=== PATIENT | male | born 1960 | race Caucasian/White ===

== ENCOUNTER 2016-05-25 09:10 | Day surgery (SDC) | payer OTHER ==
[2016-05-25] MEDS ORDERED: HEPARIN NA (PORCINE) 5,000 UNITS/ML 1ML VIAL ONE (09:49)
[2016-05-25] MEDS ORDERED: PAPAVERINE HCL 30 MG/1 ML 10 ML VIAL NR ONE (10:12)
[2016-05-25] MEDS ORDERED: LIDOCAINE HCL 1%, 10 MG/ML (20ML VIAL) ONE (10:16)
[2016-05-25] MEDS ORDERED: POVIDONE-IODINE OINTMENT 10% - 28.4 GM TUBE ONE (10:21)
[2016-05-25 10:26] VITALS: BMI 40.1
[2016-05-25] MEDS ORDERED: MIDAZOLAM HCL 2 MG/2 ML SINGLE DOSE VIAL ONE (10:40)
[2016-05-25] MEDS ORDERED: SODIUM CHLORIDE 0.9% P/F 10 ML VIAL IJ ONE (10:43)
[2016-05-25] MEDS ORDERED: ceFAZolin SODIUM 1 GM VIAL ONE (10:43)
[2016-05-25] MEDS ORDERED: PROPOFOL 20 ML ONE (10:56)
[2016-05-25] MEDS ORDERED: LIDOCAINE HCL 1%, 10 MG/ML (50 mL VIAL) IJ ONE ×2 (10:57)
--- NOTE | 2016-05-25 12:31 | HP ---
Admitting History and Physical - Admission History of Present Illness: 55 year old male DM with CKD needs AV access for planned hemodialysis. He is right handed. History Source: Patient Limitations to Obtaining History: No Limitations - Past Medical History Cardiovascular: Yes: HTN, Hyperlipdemia Pulmonary: Yes: Sleep Apnea Gastrointestinal: Yes: Other (obesity) Renal/: Yes: Renal Failure, Other (ckd) Heme/Onc: Yes: Anemia Endocrine: Yes: Diabetes Mellitus - Smoking History Smoking history: Never smoked Have you smoked in the past 12 months: No Aproximately how many cigarettes per day: 0 - Alcohol/Substance Use Hx Alcohol Use: No (on rare occassion) - Social History ADL: Independent History of Recent Travel: No Home Medications - Allergies Allergies/Adverse Reactions: Allergies Allergy/AdvReac Type Severity Reaction Status Date / Time Shellfish Allergy Severe Verified 08/12/15 15:15 sulfamethoxazole Allergy Severe Swelling Verified 08/12/15 15:15 [From Bactrim DS] trimethoprim Allergy Severe Swelling Verified 08/12/15 15:15 [From Bactrim DS] - Home Medications Home Medications: Ambulatory Orders Omeprazole [Prilosec (RX)] 20 mg PO PRN PRN 08/13/14 Nifedipine ER [Procardia XL -] 30 mg PO DAILY #30 tab.er.24 08/13/15 Aspirin [ASA -] 81 mg PO BID 05/24/16 Atorvastatin Ca [Lipitor] 80 mg PO HS 05/24/16 Calcium Acetate [Phoslo -] 667 mg PO TIDCM 05/24/16 Carvedilol 12.5 mg PO BID 05/24/16 Glipizide 5 mg PO DAILY 05/24/16 Pregabalin [Lyrica -] 50 mg PO TID 05/24/16 Torsemide 20 mg PO QID 05/24/16 Review of Systems - Review of Systems Integumentary: reports: Rash (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 received steroid injection) Physical Examination Vital Signs: Vital Signs Temperature 97.4 F L 05/25/16 10:05 Pulse Rate 74 05/25/16 10:05 Respiratory Rate 18 05/25/16 10:05 Blood Pressure 130/69 05/25/16 10:05 O2 Sat by Pulse Oximetry (%) 96 05/25/16 10:05 Constitutional: Yes: Well Nourished Eyes: Yes: WNL HENT: Yes: WNL Neck: Yes: WNL Cardiovascular: Yes: Regular Rate and Rhythm Respiratory: Yes: Regular Gastrointestinal: Yes: Soft Extremities: Yes: WNL Edema: Yes Edema: LLE: 1+, RLE: 1+ Peripheral Pulses WNL: Yes Peripheral Pulses: Left Radial: 2+ Integumentary: Yes: Rash (Arms near wrist) Problem List - Problems (1) Chronic kidney disease Assessment/Plan: Plan AV fistula creation left arm. Code(s): N18.9 - CHRONIC KIDNEY DISEASE, UNSPECIFIED Qualifiers: Chronic kidney disease stage: stage 4 (severe) Qualified Code(s): N18.4 - Chronic kidney disease, stage 4 (severe)
--- NOTE | 2016-05-25 12:32 | OP ---
Operative Note - Note: Operative Date: 05/25/16 Pre-Operative Diagnosis: CKD IV Operation: Creation AV fistula left arm Findings: Radial artery < 2 mm. Brachial artery 5 mm Cephalic vein patent to wrist. Post-Operative Diagnosis: Same as Pre-op Surgeon: Raj Sheets Regrinder Operator: Ilana Myers Anesthesiologist/[place] DRIVER: Shantel White MD Anesthesia: Fractional Estimated Blood Loss (mls): 30
[2016-05-25] MEDS ORDERED: OXYCODONE/APAP 5/325MG COMBO TABLET PO PRN (12:34)
[2016-05-25] MEDS ORDERED: ONDANSETRON 4 MG/2 ML VIAL IVPUSH PRN (12:45)
--- NOTE | 2016-05-25 15:47 | SURG ---
Surgery Director Of Leadership Development Note Director Of Leadership Development: Ilana Myers PA-C Date of Service: 05/25/16 Diagnosis: CKD IV Procedure: Creation AV fistula left arm I was present for the entirety of the operative procedure. For further detail, please refer to operative report. Visit type - Case Type Case Type: Scheduled Admission - Emergency Emergency Visit: No - New patient This patient is new to me today: Yes Date on this admission: 05/25/16 - Critical Care Critical Care patient: No
[2016-05-25] MEDS ORDERED: oxyCODONE HCL 5 MG TABLET PO PRN (16:27)
[2016-05-25] MEDS ORDERED: ACETAMINOPHEN 325 MG TABLET (FP) PO PRN (16:27)
[2016-05-25] MEDS: PREGABALIN 50 MG CAPSULE PO SCH ×2 (18:36→21:46)
[2016-05-25] MEDS: CALCIUM ACETATE 667 MG CAPSULE (FP) PO SCH (19:03)
[2016-05-25] MEDS: HEPARIN NA (PORCINE) 5,000 UNITS/ML 1ML VIAL SQ SCH (21:46)
[2016-05-25] MEDS: ASPIRIN 81 MG CHEWABLE TABLETS PO SCH (21:46)
[2016-05-25] MEDS: CARVEDILOL 12.5 MG TABLET (FP) PO SCH (21:46)
[2016-05-25] MEDS ORDERED: ATORVASTATIN CA 80 MG TABLET (FP) PO SCH (22:00)
[2016-05-26] MEDS: PREGABALIN 50 MG CAPSULE PO SCH (06:37)
[2016-05-26] MEDS: HEPARIN NA (PORCINE) 5,000 UNITS/ML 1ML VIAL SQ SCH (06:37)
[2016-05-26] MEDS ORDERED: glipiZIDE 5 MG TABLET (FP) PO SCH (07:00)
[2016-05-26] MEDS ORDERED: PT OWN MED DRAWER 7, Y5N ONE (09:11)
[2016-05-26] MEDS: CALCIUM ACETATE 667 MG CAPSULE (FP) PO SCH (09:17)
[2016-05-26] MEDS: ASPIRIN 81 MG CHEWABLE TABLETS PO SCH (09:17)
[2016-05-26] MEDS: CARVEDILOL 12.5 MG TABLET (FP) PO SCH (09:18)
[2016-05-26 09:41] VITALS: BP 139/78; PULSE 78; TEMP 98
--- NOTE | 2016-05-26 09:46 | PN ---
Progress Note (short form) - Note Progress Note: Patient seen and examined. Patient states he is feeling well and is ready to go home. He is tolerating a diet, urinating, and ambulating. He states he has some soreness in his left arm at surgical site, but denies pain. He denies fever, chills, nausea, vomiting, numbness. Last Vital Signs Temp Pulse Resp BP Pulse Ox 98.0 F 78 18 139/78 98 05/26/16 09:40 05/26/16 09:40 05/26/16 09:40 05/26/16 09:40 05/26/16 08:31 Exam: Gen: NAD Cardio: RRR Resp: CTA LUE: dressing clean/dry/intact, with bruit and thrill, LUE warm and well- perfused Problem List - Problems (1) Chronic kidney disease Assessment/Plan: POD#1 s/p creation LUE AVF Patient to be discharged with Rx for Percocet, dressing instructions, and will follow-up with Dr. Sheets Code(s): N18.9 - CHRONIC KIDNEY DISEASE, UNSPECIFIED Qualifiers: Chronic kidney disease stage: stage 4 (severe) Qualified Code(s): N18.4 - Chronic kidney disease, stage 4 (severe)
[2016-05-26] MEDS ORDERED: TORSEMIDE 20 MG TABLET (FP) PO SCH (10:00)
[2016-05-26] MEDS ORDERED: NIFEdipine E.R. 30 MG TABLET (FP) PO SCH (10:00)
[2016-05-26] MEDS ORDERED: PANTOPRAZOLE 20 MG TABLET (FP) PO SCH (10:00)
--- NOTE | 2016-06-02 09:00 | OP ---
DATE OF OPERATION: 05/25/2016 SURGEON: Raj Sheets MD CONSERVATION ENGINEER: CARMEN Mohan PROCEDURE: Creation of arteriovenous fistula, left arm. PREOPERATIVE DIAGNOSIS: Chronic kidney disease. POSTOPERATIVE DIAGNOSIS: Chronic kidney disease. ANESTHESIA: Fractional. ANESTHESIOLOGIST: Shantel White MD OPERATIVE FINDINGS: Duplex imaging revealed a patent cephalic vein at the wrist, but the radial artery at that level less than 2 mm in diameter. The brachial artery at the antecubital fossa was approximately 5 mm and the cephalic vein was patent, as well. OPERATIVE PROCEDURE: Following routine patient identification, side and site verification, intravenous sedation was established. The left arm was prepped with ChloraPrep. A timeout was performed. Xylocaine 1% was infiltrated in the antecubital fossa and a longitudinal incision made midway between the cephalic vein and brachial artery which had been mapped with duplex imaging. The wound was carried down through subcutaneous tissues using cautery for hemostasis. The vein was mobilized and ligated distally. It was incised and distended with heparin and papaverine solution. Number 5 and number 8 feeding tubes were passed proximally without resistance. The vein was failed with heparin solution and was occluded with a small clamp. The wound was deepened through the muscle fascia and the brachial artery was identified. It was mobilized and secured with vessel loops. Small side branches were ligated and divided. The artery was then occluded with the vessel loops and opened on the exposed surface with a 6-mm arteriotomy. The vein was transected distally and spatulated. It was anastomosed to the side of the artery with a running suture of 6-0 Prolene. Prior to completion of the suture line, the artery was allowed to back-bleed and flush and the vein was flushed with heparin solution. The suture line was completed and all vessels were released. There was good flow through the anastomosis with a palpable thrill in the vein. Bleeding from the suture line was controlled with Surgicel. When hemostasis was adequate, the wound was irrigated and closed with interrupted suture of 3-0 Vicryl on the subcutaneous tissues and skin aron. A sterile dressing was applied. The patient was taken to the recovery room in stable condition. Gabrielle CAMEJO/[id number]
== END 2016-05-26 09:58 | disposition home or self-care (01) ==
LOC: JASU-SURG 09:10 → JASUSAT 09:10 → J8W 18:05 → JASUSAT 05-26 09:58
PROVIDERS: ATTEND Surgery
PROC: 03180ZD Bypass Left Brachial Artery to Upper Arm Vein, Open Approach (ICD-10-PCS; principal; 2016-05-25 12:00)
DX: E11.22 Type 2 diabetes mellitus with diabetic chronic kidney disease (principal); I12.9 Hypertensive chronic kidney disease with stage 1 through stage 4 chronic kidney disease, or unspecified chronic kidney disease; N18.4 Chronic kidney disease, stage 4 (severe); Z99.2 Dependence on renal dialysis
CPT/HCPCS: 87081; 94760; J1644

== ENCOUNTER 2016-11-13 17:06 | Inpatient (IN) | payer OTHER ==
--- NOTE | 2016-11-13 18:00 | PDOC ---
History of Present Illness - General History Source: Patient, Old Records Exam Limitations: No Limitations - History of Present Illness Initial Comments: 11/13/16 19:03 The patient is a 56 year old male, with a significant past medical history of diabetes, renal insufficiency, HLD, HTN, sleep apnea, CVA, COPD, Chronic venous stasis, cellulites, osteomyolytis, and non-healing toe wounds, who presents to the emergency department after being sent for concern of anemia by his PMD. The patient is morbidly obese and ambulated into the ED with a walker. On presentation the patient looks pale. The patient notes that he used to weight 650 pounds and after his gastric bypass surgery he now weights 385 pounds. The patient was seen in the hospital on 11/01/16 for left distal tuck helix ulcer that was debrided. He was then placed on antibiotics. In October 2016 the patient had an MRI that was concerning for osteomlyolytis of the left big toe. According to the patient Dr. Campbell told him he is going to have a port placed on 11/14/2016. The patient denies chest pain, shortness of breath, headache and dizziness. Denies fever, chills, nausea, vomit, diarrhea and constipation. Denies dysuria, frequency, urgency and hematuria. Allergies: Bactrim DS, shellfish Past surgical history: gastric bypass 05/05/14 Social history: No alcohol, tobacco or drug use reported PMD - Dr. Harmon Manager Adult - Dr. Win Wound care - Dr. Rachid Campbell <Rodolfo Martinez - Last Filed: 11/13/16 20:49> <Yessy Schulz - Last Filed: 11/13/16 21:10> - General Chief Complaint: Revisit, Lab Variance Stated Complaint: PCP SENT Time Seen by Provider: 11/13/16 18:00 Past History <Rodolfo Martinez - Last Filed: 11/13/16 20:49> - Past Medical History Anemia: Yes Asthma: Yes Cancer: No Cardiac Disorders: No (ANGINA) CVA: Yes COPD: Yes CHF: No Dementia: No Diabetes: Yes GI Disorders: No Disorders: No HTN: Yes Hypercholesterolemia: Yes Liver Disease: No Suicide Attempt (Hx): No Seizures: No Thyroid Disease: No - Surgical History Abdominal Surgery: Yes (gastric bypass 05/05/14) Appendectomy: No Cardiac Surgery: No Cholecystectomy: No Lung Surgery: No Neurologic Surgery: No Orthopedic Surgery: No - Psycho/Social/Smoking Cessation Hx Anxiety: No Suicidal Ideation: No Smoking Status: No Smoking History: Never smoked Have you smoked in the past 12 months: No Number of Cigarettes Smoked Daily: 0 Hx Alcohol Use: No Drug/Substance Use Hx: No Substance Use Type: None Hx Substance Use Treatment: No <Yessy Schulz - Last Filed: 11/13/16 21:10> - Past Medical History Allergies/Adverse Reactions: Allergies Allergy/AdvReac Type Severity Reaction Status Date / Time Shellfish Allergy Severe Verified 11/13/16 17:11 sulfamethoxazole Allergy Severe Swelling Verified 11/13/16 17:11 [From Bactrim DS] trimethoprim Allergy Severe Swelling Verified 11/13/16 17:11 [From Bactrim DS] Home Medications: Ambulatory Orders Omeprazole [Prilosec (RX)] 20 mg PO PRN PRN 08/13/14 Nifedipine ER [Procardia XL -] 30 mg PO DAILY #30 tab.er.24 08/13/15 Aspirin [ASA -] 81 mg PO BID 05/24/16 Atorvastatin Ca [Lipitor] 80 mg PO HS 05/24/16 Calcium Acetate [Phoslo -] 667 mg PO TIDCM 05/24/16 Carvedilol 12.5 mg PO BID 05/24/16 Pregabalin [Lyrica -] 50 mg PO TID 05/24/16 Torsemide 80 mg PO DAILY 05/24/16 Ferrous Sulfate [Feosol] 1 tab PO DAILY 08/02/16 Albuterol Sulfate [Proair Respiclick] 90 mcg IH BID 11/13/16 Cholecalciferol (Vitamin D3) [Vitamin D3] 2,000 unit PO DAILY 11/13/16 Review of Systems - Review of Systems Able to Perform ROS?: Yes Comments:: 11/13/16 19:03 GENERAL/CONSTITUTIONAL: No fever or chills. No weakness. HEAD, EYES, EARS, NOSE AND THROAT: No change in vision. No ear pain or discharge. No sore throat.- CARDIOVASCULAR: No chest pain or shortness of breath RESPIRATORY: No cough, wheezing, or hemoptysis. GASTROINTESTINAL: No nausea, vomiting, diarrhea or constipation. GENITOURINARY: No dysuria, frequency, or change in urination. MUSCULOSKELETAL: No joint or muscle swelling or pain. No neck or back pain. SKIN: No rash NEUROLOGIC: No headache, vertigo, loss of consciousness, or change in strength/ sensation. ENDOCRINE: No increased thirst. No abnormal weight change HEMATOLOGIC/LYMPHATIC: No anemia, easy bleeding, or history of blood clots. ALLERGIC/IMMUNOLOGIC: No hives or skin allergy. <Rodolfo Martinez - Last Filed: 11/13/16 20:49> *Physical Exam - Vital Signs Last Vital Signs Temp Pulse Resp BP Pulse Ox 98.1 F 102 H 22 177/93 97 11/13/16 17:07 11/13/16 17:07 11/13/16 17:07 11/13/16 17:07 11/13/16 18:14 - Physical Exam Comments: 11/13/16 19:03 GENERAL: (+) Morbidly Obese. Awake, alert, and fully oriented, in no acute distress HEAD: No signs of trauma, normocephalic, atraumatic EYES: PERRLA, EOMI, sclera anicteric, conjunctiva clear ENT: Auricles normal inspection, hearing grossly normal, nares patent, oropharynx clear without exudates. Moist mucosa NECK: Normal ROM, supple, no lymphadenopathy, JVD, or masses LUNGS: No distress, speaks full sentences, clear to auscultation bilaterally HEART: (+)Tachycardia. Normal S1 and S2, no murmurs, rubs or gallops, peripheral pulses normal and equal bilaterally. ABDOMEN: (+) Protuberant Belly. Soft, nontender, normoactive bowel sounds. No guarding, no rebound. No masses EXTREMITIES : (+) Chronic venous stasis bilaterally. Left big toe small wound at the tip of the distal phalanges, second tow has ulcer. Normal range of motion , no edema. No clubbing or cyanosis. NEUROLOGICAL: Cranial nerves II through XII grossly intact. Normal speech, normal gait, no focal sensorimotor deficits SKIN: Warm, Dry, normal turgor, no rashes or lesions noted. <Rodolfo Martinez - Last Filed: 11/13/16 20:49> - Vital Signs Last Vital Signs Temp Pulse Resp BP Pulse Ox 98.1 F 102 H 22 177/93 99 11/13/16 17:07 11/13/16 17:07 11/13/16 17:07 11/13/16 17:07 11/13/16 17:07 <Yessy Schulz - Last Filed: 11/13/16 21:10> ED Treatment Course - LABORATORY CBC & Chemistry Diagram: 11/13/16 18:05 11/13/16 18:05 - ADDITIONAL ORDERS Additional order review: Laboratory Results 11/13/16 18:05 INR 1.33 H 11/13/16 18:05 RBC 2.46 L D MCV 86.7 MCHC 32.6 RDW 14.3 MPV 9.3 Neutrophils % 59.6 Lymphocytes % 12.6 D Monocytes % 7.0 Eosinophils % 18.6 H Basophils % 2.2 H <Rodolfo Martinez - Last Filed: 11/13/16 20:49> - LABORATORY CBC & Chemistry Diagram: 11/13/16 18:05 11/13/16 18:05 <Yessy Schulz - Last Filed: 11/13/16 21:10> Medical Decision Making - Medical Decision Making 11/13/16 20:49 Dr. Xiang Urena covering for Dr. Win and is aware of the patient. <Rodolfo Martinez - Last Filed: 11/13/16 20:49> *DC/Admit/Observation/Transfer - Attestations Scribe Attestion: 11/13/16 19:05 Documentation prepared by Rodolfo Martinez, acting as director medical writing for Yessy Schulz Md <Rodolfo Martinez - Last Filed: 11/13/16 20:49> - Discharge Dispostion Admit: Yes <Yessy Schulz - Last Filed: 11/13/16 21:10> Diagnosis at time of Disposition: Morbid obesity, Stasis edema with ulcer of left lower extremity Chronic kidney disease Qualifiers: Chronic kidney disease stage: unspecified stage Qualified Code(s): N18.9 - Chronic kidney disease, unspecified Anemia Qualifiers: Anemia type: other cause Other causes of anemia: other cause, not classified Qualified Code(s): D64.89 - Other specified anemias
[2016-11-13 18:15] LABS: BASOPHIL 2.2 % (0-2.0); EOSINOPHIL 18.6 % (0-4.5); MCH 28.3 pg (25.7-33.7); MCHC 32.6 g/dl (32.0-35.9); MEAN CELL VOLUME 86.7 fl (80-96); MEAN PLT VOLUME 9.3 fl (7.5-11.1); NEUTROPHILS 59.6 % (42.8-82.8); PLATELET COUNT 177 K/MM3 (134-434); RDW 14.3 % (11.9-15.9)
[2016-11-13 18:25] LABS: INR 1.33 (0.82-1.09); PROTHROMBIN TIME (PATIENT) 14.7 SEC (9.98-11.88)
[2016-11-13 19:16] LABS: ALBUMIN 2.8 g/dl (3.4-5.0); ANION GAP 10 (8-16); CALCIUM 8.2 mg/dL (8.5-10.1); CO2 20 mmol/L (21-32); CREATININE 5.8 mg/dL (0.7-1.3); GLUCOSE,RANDOM 82 mg/dL (74-106); SGOT/AST 31 U/L (15-37); SGPT/ALT 29 U/L (12-78)
[2016-11-13 19:17] LABS: ALK PHOS 58 U/L (45-117); BILIRUBIN,TOTAL 0.4 mg/dL (0.2-1.0); TOT PROT 6.9 g/dl (6.4-8.2)
[2016-11-13 19:17] LABS: TROPONIN I 0.04 ng/ml (0.00-0.05)
--- NOTE | 2016-11-13 21:55 | PN ---
Teaching Attending Note Name of Resident: Triny Yu ATTENDING PHYSICIAN STATEMENT I saw and evaluated the patient. I reviewed the resident's note and discussed the case with the resident. I agree with the resident's findings and plan as documented. SUBJECTIVE: 56 yo M with pmhx of DM, CKD, HLD, HTN, Sleep apnea, CVA, COPD, Chronic Venous stasis, cellultis (treated 2 weeks ago at [facility]), Chronic Osteomyeltitis L., non-healing toe wounds, who presents with lab values from PCP's office. States his PMD had sent him in because his labs showed worsening anemia. Pt. states he had a hx.of gastric bypass in the past and he is on iron. States he is to have a port placed for his Toe Osteo?, but unsure of antibiotics. States he has been short of breath lately and pale. OBJECTIVE: Physical: VS: Vital Signs Period Temp Pulse Resp BP Sys/Leon Pulse Ox Last 24 Hr 98.0 F-98.5 F 76-102 14-22 170-177/81-93 97-99 GEN: Obese male, resting in bed, no acute distress HEENT: NCAT, PERRL, Sclera pale, Throat without erythema or exudates CARD: RRR S1, S2 ABD:BSX4, NTD to palpation EXT: L.Toe with erythema, Pulses intact bilaterally CBCD WBC 7.0 K/mm3 (4.0-10.0) 11/13/16 18:05 RBC 2.46 M/mm3 (4.00-5.60) L D 11/13/16 18:05 Hgb 7.0 GM/dL (11.7-16.9) L D 11/13/16 18:05 Hct 21.3 % (35.4-49) L D 11/13/16 18:05 MCV 86.7 fl (80-96) 11/13/16 18:05 MCHC 32.6 g/dl (32.0-35.9) 11/13/16 18:05 RDW 14.3 % (11.9-15.9) 11/13/16 18:05 Plt Count 177 K/MM3 (134-434) 11/13/16 18:05 MPV 9.3 fl (7.5-11.1) 11/13/16 18:05 CMP Sodium 143 mmol/L (136-145) 11/13/16 18:05 Potassium 4.8 mmol/L (3.5-5.1) 11/13/16 18:05 Chloride 113 mmol/L (98-107) H 11/13/16 18:05 Carbon Dioxide 20 mmol/L (21-32) L D 11/13/16 18:05 Anion Gap 10 (8-16) 11/13/16 18:05 BUN 59 mg/dL (7-18) H D 11/13/16 18:05 Creatinine 5.8 mg/dL (0.7-1.3) H D 11/13/16 18:05 Creat Clearance w eGFR 10.17 (>60) 11/13/16 18:05 Random Glucose 82 mg/dL (74-106) D 11/13/16 18:05 Calcium 8.2 mg/dL (8.5-10.1) L 11/13/16 18:05 Total Bilirubin 0.4 mg/dL (0.2-1.0) D 11/13/16 18:05 AST 31 U/L (15-37) D 11/13/16 18:05 ALT 29 U/L (12-78) D 11/13/16 18:05 Alkaline Phosphatase 58 U/L (45-117) 11/13/16 18:05 Total Protein 6.9 g/dl (6.4-8.2) D 11/13/16 18:05 Albumin 2.8 g/dl (3.4-5.0) L D 11/13/16 18:05 CARDIAC ENZYMES Creatine Kinase 72 IU/L (39-308) 11/13/16 18:04 Troponin I 0.04 ng/ml (0.00-0.05) D 11/13/16 18:04 EKG: IRBB NSR 79 QtC 442 ASSESSMENT AND PLAN: 56 yo M with pmhx of DM, CKD, HTN, HLD, Sleep Apnea, CVA, COPD, Chronic Venous Stasis, Chronic Osteo, who presents with Anemia 1.) Normocytic anemia - Positive stool occult- Protonix - GI consult - Fe studies, B12/Folate - PRBC keep >7.0 - EPO level 2.) MONA on CKD - U lytes - Nephro consult - Renal US 3.) DM - FS - RAISS 4.) Chronic Osteo - ?Port - ID consult fo abx. 5.) COPD - C/W home meds 6.) Sleep Apnea - CPAP At night 5.) DVt Ppx - SCD's Place in Med-Sx
[2016-11-13] MEDS ORDERED: HEPARIN NA (PORCINE) 5,000 UNITS/ML 1ML VIAL SQ SCH (22:15)
--- NOTE | 2016-11-13 22:42 | HP ---
PMD - Dr. Harmon Daycare Worker - Dr. Win Heavy Equipment Rental Manager - Dr. Chan CHIEF COMPLAINT: Sent by PCP due to abnormal H/H HISTORY OF PRESENT ILLNESS: Pt is a 56yo M with PMHx of Anemia (on iron supplements), CKD, s/p Gastric Bypass in 2014 who presented to ER after receiving a call from his PCP due to low H/H. He denies palpitations, dizziness, weakness, endorses chronic SOB on exertion (improves w/ ProAir). Denies any bleeding. Denies abdominal pain, alcohol use, NSAIDs. He has never received a transfusion. He endorses compliance with his Fe supplements. Last colonoscopy was 3 years, positive for benign polyps as per pt. He was recently hospitalized at [facility] for LE cellulitis, finished antibiotics (Doxy + Augmentin) 2 weeks ago. Pt is well known to wound care clinic, had MRI last month which showed signs of possible osteo in L first phalanx. As per patient, he has an appointment with Dr. Campbell for ?port placement for IV antibiotics. ER course was notable for: (1) Labs - Normocytic Anemia (2) EKG - NSR w/ chronic LAD, Incomplete RBBB (3) CXR ordered, not taken (4) T+S, 2 units PRBC Recent Travel: Denies PAST MEDICAL HISTORY: Anemia (on iron), CKD, HTN, HLD, CVA, Venous stasis, cellulitis, osteomyelitis PAST SURGICAL HISTORY: Gastric Bypass on 05/05/2014 Social History: Smoking: Denies Alcohol: Denies Drugs: Denies Family History: Noncontributory Allergies Shellfish Allergy (Severe, Verified 11/13/16 17:11) throat swelling sulfamethoxazole [From Bactrim DS] Allergy (Severe, Verified 11/13/16 17:11) Swelling trimethoprim [From Bactrim DS] Allergy (Severe, Verified 11/13/16 17:11) Swelling HOME MEDICATIONS: Home Medications Medication Instructions Recorded Omeprazole [Prilosec (RX)] 20 mg PO PRN PRN 08/13/14 Nifedipine ER [Procardia XL -] 30 mg PO DAILY #30 tab.er.24 08/13/15 Aspirin [ASA -] 81 mg PO BID 05/24/16 Atorvastatin Ca [Lipitor] 80 mg PO HS 05/24/16 Calcium Acetate [Phoslo -] 667 mg PO TIDCM 05/24/16 Carvedilol 12.5 mg PO BID 05/24/16 Pregabalin [Lyrica -] 50 mg PO TID 05/24/16 Torsemide 80 mg PO DAILY 05/24/16 Ferrous Sulfate [Feosol] 1 tab PO DAILY 08/02/16 Albuterol Sulfate [Proair 90 mcg IH BID 11/13/16 Respiclick] Cholecalciferol (Vitamin D3) 2,000 unit PO DAILY 11/13/16 [Vitamin D3] REVIEW OF SYSTEMS CONSTITUTIONAL: Absent: fever, chills, diaphoresis, generalized weakness, malaise, loss of appetite, weight change HEENT: Absent: rhinorrhea, nasal congestion, throat pain, throat swelling, difficulty swallowing, mouth swelling, ear pain, eye pain, visual changes CARDIOVASCULAR: Absent: chest pain, syncope, palpitations, irregular heart rate, lightheadedness , peripheral edema RESPIRATORY: Absent: cough, orthopnea, wheezing, stridor, hemoptysis Present: shortness of breath, dyspnea on exertion GASTROINTESTINAL: Absent: abdominal pain, abdominal distension, nausea, vomiting, diarrhea, constipation, melena, hematochezia GENITOURINARY: Absent: dysuria, frequency, urgency, hesitancy, hematuria, flank pain, genital pain MUSCULOSKELETAL: Absent: myalgia, arthralgia, joint swelling, back pain, neck pain SKIN: Absent: rash, itching, pallor HEMATOLOGIC/IMMUNOLOGIC: Absent: easy bleeding, easy bruising, lymphadenopathy, frequent infections ENDOCRINE: Absent: unexplained weight gain, unexplained weight loss, heat intolerance, cold intolerance NEUROLOGIC: Absent: headache, focal weakness or paresthesias, dizziness, unsteady gait, seizure, mental status changes, bladder or bowel incontinence PSYCHIATRIC: Absent: anxiety, depression, suicidal or homicidal ideation, hallucinations. PHYSICAL EXAMINATION GEN: AAOx3, NAD, Lying comfortably HEENT: PERRLA, EOMi, conjunctiva pallor CV: S1, S2, RRR LUNG: CTABL, no crackles ABD: Obese, soft, NT, ND, normoactive BS MSK: L antecubital palpable thrill, Venous stasis changes BLLE, L great toe erythema, erythema w/ purulence in other toes (not new) NEURO: CN 2-12, MSK 5/5, decreased sensation in feet bilaterally, reflexes 2+ Home Medication List Medication Instructions Recorded Confirmed Type Omeprazole [Prilosec (RX)] 20 mg PO PRN PRN 08/13/14 11/13/16 History Aspirin [ASA -] 81 mg PO BID 05/24/16 11/13/16 History Atorvastatin Ca [Lipitor] 80 mg PO HS 05/24/16 11/13/16 History Calcium Acetate [Phoslo -] 667 mg PO TIDCM 05/24/16 11/13/16 History Carvedilol 12.5 mg PO BID 05/24/16 11/13/16 History Pregabalin [Lyrica -] 50 mg PO TID 05/24/16 11/13/16 History Torsemide 80 mg PO DAILY 05/24/16 11/13/16 History Ferrous Sulfate [Feosol] 1 tab PO DAILY 08/02/16 11/13/16 History Albuterol Sulfate [Proair 90 mcg IH BID 11/13/16 11/13/16 History Respiclick] Cholecalciferol (Vitamin D3) 2,000 unit PO DAILY 11/13/16 11/13/16 History [Vitamin D3] Active Medications Generic Name Dose Route Start Last Admin Trade Name Freq PRN Reason Stop Dose Admin Albuterol Sulfate 2 puff 11/14/16 10:00 Ventolin Hfa Inhaler - IH BID [facility] Aspirin 81 mg 11/13/16 22:45 Asa - PO BID [facility] Atorvastatin Calcium 80 mg 11/14/16 22:00 Lipitor - PO HS [facility] Calcium Acetate 667 mg 11/13/16 22:45 Phoslo - PO TIDCM [facility] Carvedilol 12.5 mg 11/13/16 22:45 Coreg - PO BID [facility] Ferrous Sulfate 325 mg 11/14/16 10:00 Feosol - PO DAILY [facility] Heparin Sodium (Porcine) 5,000 unit 11/13/16 22:15 Heparin - SQ TID [facility] Pantoprazole Sodium 40 mg/ 100 mls @ 200 mls/hr 11/14/16 10:00 Sodium Chloride IVPB DAILY [facility] Nifedipine 30 mg 11/14/16 10:00 Procardia Xl - PO DAILY [facility] Non-Formulary Medication 2,000 unit 11/14/16 10:00 Cholecalciferol (Vitamin D3) [Vitamin D3] PO DAILY [facility] Pregabalin 50 mg 11/13/16 22:45 Lyrica - PO TID [facility] Torsemide 80 mg 11/14/16 10:00 Demadex - PO DAILY [facility] ASSESSMENT/PLAN: Pt is a 56yo M w/ hx of Anemia on Iron, CKD, s/p Gastric osteomyelits who presented to ER after being sent by PCP due to low Hgb/HCT. # Normocytic Anemia - likely due to CKD + malabsorption 2/2 gastric bypass vs occult blood loss - 2 units PRBC + CBC in AM - Epo level - Fe studies, B12, folate - Continue Iron supplements - FOBT+, GI consult, start IV protonix - Hold off on Lasix unless symptomatic due to renal function, Echo 2015 shows LVH with preserved 67% EF - F/u CXR # MONA on CKD - vs CKD progression vs ATN from previous abx use - Baseline Cr in August 2015 is 2.5 - Urine lytes to check FeUrea (pt on diuretics) - Hold off on fluids while patient receiving PRBC - Consider renal U/S, no obstructive sx - Continue Ca2+ and Vit D - Renal consult (pt follows Dr. Win) - Repeat BMP in AM # Osteomyelitis of L great toe - Pt is well known to wound care clinic - Pt states that he is scheduled for ?port placement tmrw for IV abx - ID consult Dr. Campbell - ESR, CRP # HTN - Elevated BP bc pt did not take Procardia this AM - Continue Procardia + Coreg # Hx of DM2 - Was on medication in the past, not anymore - Check glucose w/ daily BMPs - Consider SSI if random glucose level is high - F/u A1C # Hx of LVH w/ preserved EF - Continue Torsemide # Hx of CAD - Hold ASA # Hx of HLD - Continue statin # Hx of Peripheral Neuropathy - Continue Lyrica # Hx of Asthma - Continue Albuterol PRN # Hx of HOLLY - Continue CPAP at night # FEN - Fluids: None needed - Electrolytes: No abnormalities - Nutrition: Renal diet # Prophylaxis - DVT: SCDs - GI: IV Protonix - Deconditioning: PT ordered # Med Rec - All meds were confirmed with patient at bedside # Dispo - Admit to Med/Surg - F/u AM labs Case discussed w/ Dr. Best and Dr. Sameera Yu MD - PGY1 Internal Medicine Visit type - Emergency Visit Emergency Visit: Yes ED Registration Date: 11/13/16 Care time: The patient presented to the Emergency Department on the above date and was hospitalized for further evaluation of their emergent condition. - New Patient This patient is new to me today: Yes Date on this admission: 11/13/16 - Critical Care Critical Care patient: No
[2016-11-13] MEDS ORDERED: ASPIRIN 81 MG CHEWABLE TABLETS PO SCH (22:45)
[2016-11-13] MEDS ORDERED: ALBUTEROL SO4 6.7 GM HFA INHALER IH PRN (22:54)
[2016-11-13] MEDS ORDERED: PREGABALIN 50 MG CAPSULE ONE (23:03)
[2016-11-13] MEDS ORDERED: ASPIRIN 81 MG CHEWABLE TABLETS ONE (23:03)
[2016-11-13] MEDS ORDERED: HEPARIN NA (PORCINE) 5,000 UNITS/ML 1ML VIAL ONE (23:03)
[2016-11-13] MEDS: CALCIUM ACETATE 667 MG CAPSULE (FP) PO SCH (23:49)
[2016-11-13] MEDS: PREGABALIN 50 MG CAPSULE PO SCH (23:49)
[2016-11-13] MEDS: CARVEDILOL 12.5 MG TABLET (FP) PO SCH (23:49)
[2016-11-14 02:52] VITALS: BMI 47.3
[2016-11-14] MEDS: PREGABALIN 50 MG CAPSULE PO SCH ×3 (07:04→21:30)
[2016-11-14 07:42] LABS: MCH 28.3 pg (25.7-33.7); MCHC 32.4 g/dl (32.0-35.9); MEAN CELL VOLUME 87.5 fl (80-96); MEAN PLT VOLUME 9.7 fl (7.5-11.1); PLATELET COUNT 172 K/MM3 (134-434); RDW 14.3 % (11.9-15.9); WHITE BLOOD COUNT 6.4 K/mm3 (4.0-10.0)
[2016-11-14 08:17] LABS: ANION GAP 12 (8-16); CALCIUM 7.7 mg/dL (8.5-10.1); CO2 19 mmol/L (21-32); CREATININE 5.7 mg/dL (0.7-1.3); GLUCOSE,RANDOM 111 mg/dL (74-106)
[2016-11-14] MEDS: CALCIUM ACETATE 667 MG CAPSULE (FP) PO SCH ×3 (08:38→16:50)
[2016-11-14] MEDS: CARVEDILOL 12.5 MG TABLET (FP) PO SCH ×2 (09:08→21:30)
[2016-11-14] MEDS: NIFEdipine E.R. 30 MG TABLET (FP) PO SCH (09:08)
[2016-11-14] MEDS: TORSEMIDE 20 MG TABLET (FP) PO SCH (09:09)
[2016-11-14] MEDS: CHOLECALCIFEROL (VITAMIN D3) 1,000 UNIT TABLET (FP) PO SCH (09:09)
[2016-11-14] MEDS: FERROUS SO4 325 MG TABLET (FP) PO SCH (09:09)
[2016-11-14] MEDS ORDERED: PANTOPRAZOLE 40 MG TABLET (FP) PO SCH (10:00)
[2016-11-14] MEDS ORDERED: ALBUTEROL SO4 6.7 GM HFA INHALER IH SCH (10:00)
[2016-11-14] MEDS ORDERED: PANTOPRAZOLE SODIUM 40 MG VIAL ONE (10:30)
[2016-11-14] MEDS ORDERED: SODIUM CHLORIDE 100 ML IVPB ONE (10:30)
[2016-11-14] MEDS: PANTOPRAZOLE SODIUM 40 MG in SODIUM CHLORIDE 100 ML IVPB SCH (10:32)
--- NOTE | 2016-11-14 10:32 | CONSULT ---
Consult Consult Specialty:: Gastroenterology Reason for Consultation:: Anemia - History of Present Illness History of Present Illness: 56 year old male with an extensive past medical history of diabetes mellitus, chronic kidney disease, hyperlipidemia, hypertension, sleep apnea, CVA, COPD, venous stasis, chronic osteomyelitis, s/p gastric sleep (05/05/14), presented to the emergency department yesterday after being referred by his PCP for evaluation of anemia. Patient states that he was recently admitted to [facility] 3 weeks ago for treatment of cellulitis on his right thigh. He was admitted for 3 days, and his hospital course consisted of treatment with augmentin and doxycycline. States that during that admission, the hospital did not inform him of worsening anemia. Patient states that he does not have any current complaints. He states that he has had chronic anemia for a long time, with a baseline hemoglobin around 10. Denies history of peptic/ duodenal ulcers. Patient denies overt blood in his stool, but says that he sometimes notices specks of blood on the toilet paper after he wipes. Patient states that after his gastric sleeve surgery, he has had intermittent, nonbloody emesis related to the quantity of food that he eats (last time he vomited was 1 week ago). Denies diarrhea, has 1 regular bowel movement every other day. Eats a regular diet and drinks 2 cups of coffee a day. Patient is scheduled for a port placement this afternoon for antibiotics. Medical history: diabetes mellitus, chronic kidney disease, hyperlipidemia, hypertension, sleep apnea, CVA, COPD, venous stasis, chronic osteomyelitis Past Surgical History: Gastric Sleeve (05/05/14) Allergies: shellfish, TMP/SMX Alcohol/Smoking: Denies smoking, alcohol, and illicit drug use Caffeine: 2 cups of coffee a day Last colonoscopy: January 2014 at [facility] (Dr. Deandre Wilson M.D.)- notable for 12 polyp excisions. Patient states that biopsies revealed no malignancy. - History Source History Provided By: Patient Limitations to Obtaining History: No Limitations - Past Medical History Cardio/Vascular: Yes: HTN, Hyperlipdemia Pulmonary: Yes: Sleep Apnea Gastrointestinal: Yes: Other (obesity) Renal/: Yes: Renal Failure, Other (ckd) Endocrine: Yes: Diabetes Mellitus - Alcohol/Substance Use Hx Alcohol Use: No - Smoking History Smoking history: Never smoked Have you smoked in the past 12 months: No Aproximately how many cigarettes per day: 0 - Social History ADL: Independent History of Recent Travel: No Home Medications - Allergies Allergies/Adverse Reactions: Allergies Allergy/AdvReac Type Severity Reaction Status Date / Time Shellfish Allergy Severe Verified 11/13/16 17:11 sulfamethoxazole Allergy Severe Swelling Verified 11/13/16 17:11 [From Bactrim DS] trimethoprim Allergy Severe Swelling Verified 11/13/16 17:11 [From Bactrim DS] - Home Medications Home Medications: Ambulatory Orders Omeprazole [Prilosec (RX)] 20 mg PO PRN PRN 08/13/14 Nifedipine ER [Procardia XL -] 30 mg PO DAILY #30 tab.er.24 08/13/15 Aspirin [ASA -] 81 mg PO BID 05/24/16 Atorvastatin Ca [Lipitor] 80 mg PO HS 05/24/16 Calcium Acetate [Phoslo -] 667 mg PO TIDCM 05/24/16 Carvedilol 12.5 mg PO BID 05/24/16 Pregabalin [Lyrica -] 50 mg PO TID 05/24/16 Torsemide 80 mg PO DAILY 05/24/16 Ferrous Sulfate [Feosol] 1 tab PO DAILY 08/02/16 Albuterol Sulfate [Proair Respiclick] 90 mcg IH BID 11/13/16 Cholecalciferol (Vitamin D3) [Vitamin D3] 2,000 unit PO DAILY 11/13/16 Review of Systems - Review of Systems Constitutional: reports: No Symptoms. denies: Chills, Fever, Malaise, Weakness Eyes: reports: No Symptoms HENT: reports: No Symptoms Neck: reports: No Symptoms Cardiovascular: reports: No Symptoms. denies: Chest Pain, Edema, Palpitations Respiratory: reports: No Symptoms Gastrointestinal: reports: No Symptoms. denies: Abdominal Pain, Constipation, Diarrhea, Dysphagia, Melena, Nausea, Vomiting, Vomiting Blood Genitourinary: reports: No Symptoms. denies: Burning, Discharge, Dysuria, Flank Pain, Frequency Musculoskeletal: reports: No Symptoms Integumentary: reports: Wound (cellulitis) Neurological: reports: No Symptoms Endocrine: reports: No Symptoms Hematology/Lymphatic: reports: No Symptoms. denies: Excessive Bleeding Psychiatric: reports: No Symptoms Physical Exam Vital Signs: Vital Signs Temperature 98.1 F 11/14/16 09:00 Pulse Rate 62 11/14/16 09:00 Respiratory Rate 20 11/14/16 09:00 Blood Pressure 155/85 11/14/16 09:00 O2 Sat by Pulse Oximetry (%) 99 11/14/16 09:00 Constitutional: Yes: No Distress, Calm Eyes: Yes: Conjunctiva Clear, EOM Intact, Other (pallor) HENT: Yes: Atraumatic, Normocephalic. No: Nasal Congestion, Pharyngeal Erythema Neck: Yes: Supple, Trachea Midline Cardiovascular: Yes: Regular Rate and Rhythm, S1, S2. No: Gallop, Murmur, Rub Respiratory: Yes: Regular, CTA Bilaterally. No: Rales, Rhonchi, SOB, SOB on Exertion, Stridor, Tachypnea, Wheezes Gastrointestinal: Yes: Normal Bowel Sounds, Soft, Abdomen, Obese. No: Hematemesis, Hepatomegaly, Melena, Palpable Mass, Splenomegaly, Tenderness, Vomiting ...Rectal Exam: Yes: Guaiac Negative Musculoskeletal: Yes: WNL Edema: LUE: 1+, RUE: 1+, LLE: 1+, RLE: 1+ Neurological: Yes: Alert, Oriented, Cran Nerves II-XII Intact ...Motor Strength: WNL Psychiatric: Yes: Alert, Oriented Labs: CBC, BMP 11/14/16 06:30 11/14/16 06:30 Imaging - Results Chest X-ray: Report Reviewed Problem List - Problems (1) Anemia Code(s): D64.9 - ANEMIA, UNSPECIFIED Qualifiers: Anemia type: other cause Other causes of anemia: other cause, not classified Qualified Code(s): D64.89 - Other specified anemias Assessment/Plan Assessment: 56 year old male pmh DM, CKD, HLD, HTN, CVA, COPD, venous stasis, cellulitis, chronic osteomyelitis, s/p gastric sleeve 05/05/14 seen by the gastroenterology service for evaluation of anemia Anemia: possibly iron deficiency vs GI cause vs chronic kidney disease-induced -order iron studies, replace Fe pending studies -Guiac negative, less likely GI bleed -B12/folate normal, unlikely B12 deficiency -eosinophilia, order hepatitis studies, transglutaminases -patient is due for a second colonoscopy soon - recommend he has it done this year. After discussing with the patient, patient prefers having it done by Dr. Wilson at [facility]. ATTENDING PHYSICIAN STATEMENT I saw and evaluated the patient. I reviewed the resident's note and discussed the case with the resident. I agree with the resident's findings and plan as documented. SUBJECTIVE: OBJECTIVE: ASSESSMENT AND PLAN:
--- NOTE | 2016-11-14 11:16 | PN ---
Progress Note (short form) - Note Progress Note: ID Consult dictated Osteomyelitis L great toe CKD Anemia Start cefazolin, adjusted for CKD Will need tunnelled catheter for longterm outpatient antibiotic therapy
--- NOTE | 2016-11-14 11:58 | PN ---
GI Progress Note Subjective: Adjunct GI Consultation NOte( please see Dr. Troy's consultation which will be under Dr Familia Benitez's supervision) : Rachid is admitted for transfusion. He has been told that his anemia is related to worseinig renal insufficincy. He denies any overt bleeding. He delia any GI symptoms. He had a colonoscopy and gastroscopy with Dr Deandre Wilson before undergoing a hiatal hernia repair and gastric sleeve surgery 3 years ago. The endoscopies revealed the hiatal hernia and led to the removal of 12 benign colon polyps. A repeat colonoscopy was advised in 3-5 years. Rachid weighted about 650 lbs and dropped to 380lbs following the surgery. He moves his bowels regularly and denies change in bowel habits. No dysphagia or early satiety. 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 never smoked FH: Father age 43 of [place], Mother alive at 80 has DM Meds: as per Dr. Troy's note - Objective Vital Signs: Vital Signs Temperature 98.1 F 11/14/16 09:00 Pulse Rate 62 11/14/16 09:00 Respiratory Rate 20 11/14/16 09:00 Blood Pressure 155/85 11/14/16 09:00 O2 Sat by Pulse Oximetry (%) 99 11/14/16 09:00 CBC,CMP WBC 6.4 K/mm3 (4.0-10.0) 11/14/16 06:30 RBC 2.74 M/mm3 (4.00-5.60) L 11/14/16 06:30 Hgb 7.8 GM/dL (11.7-16.9) L D 11/14/16 06:30 Hct 24.0 % (35.4-49) L 11/14/16 06:30 MCV 87.5 fl (80-96) 11/14/16 06:30 MCH 28.3 pg (25.7-33.7) 11/14/16 06:30 MCHC 32.4 g/dl (32.0-35.9) 11/14/16 06:30 RDW 14.3 % (11.9-15.9) 11/14/16 06:30 Plt Count 172 K/MM3 (134-434) 11/14/16 06:30 MPV 9.7 fl (7.5-11.1) 11/14/16 06:30 Neutrophils % 59.6 % (42.8-82.8) 11/13/16 18:05 Lymphocytes % 12.6 % (8-40) D 11/13/16 18:05 Monocytes % 7.0 % (3.8-10.2) 11/13/16 18:05 Eosinophils % 18.6 % (0-4.5) H 11/13/16 18:05 Basophils % 2.2 % (0-2.0) H 11/13/16 18:05 Retic Count 1.19 % (0.5-1.5) 11/13/16 18:05 Sodium 143 mmol/L (136-145) 11/14/16 06:30 Potassium 4.7 mmol/L (3.5-5.1) 11/14/16 06:30 Chloride 112 mmol/L (98-107) H 11/14/16 06:30 Carbon Dioxide 19 mmol/L (21-32) L 11/14/16 06:30 Anion Gap 12 (8-16) 11/14/16 06:30 BUN 61 mg/dL (7-18) H 11/14/16 06:30 Creatinine 5.7 mg/dL (0.7-1.3) H 11/14/16 06:30 Creat Clearance w eGFR 10.17 (>60) 11/13/16 18:05 Random Glucose 111 mg/dL (74-106) H D 11/14/16 06:30 Hemoglobin A1c % 5.8 % (4.8-6.0) D 11/14/16 06:30 Calcium 7.7 mg/dL (8.5-10.1) L 11/14/16 06:30 Total Bilirubin 0.4 mg/dL (0.2-1.0) D 11/13/16 18:05 AST 31 U/L (15-37) D 11/13/16 18:05 ALT 29 U/L (12-78) D 11/13/16 18:05 Alkaline Phosphatase 58 U/L (45-117) 11/13/16 18:05 Creatine Kinase 72 IU/L (39-308) 11/13/16 18:04 Troponin I 0.04 ng/ml (0.00-0.05) D 11/13/16 18:04 Total Protein 6.9 g/dl (6.4-8.2) D 11/13/16 18:05 Albumin 2.8 g/dl (3.4-5.0) L D 11/13/16 18:05 Vitamin B12 881 pg/ml (180-914) 11/14/16 06:30 Serum Folate 8 ng/ml (3.1-17.5) 11/14/16 06:30 Current Medications Generic Name Dose Route Start Last Admin Trade Name Freq PRN Reason Stop Dose Admin Albuterol Sulfate 2 puff 11/13/16 22:54 Ventolin Hfa Inhaler - IH BID PRN SHORTNESS OF BREATH Atorvastatin Calcium 80 mg 11/14/16 22:00 Lipitor - PO HS [facility] Calcium Acetate 667 mg 11/13/16 22:45 11/14/16 08:38 Phoslo - PO 667 mg TIDCM [facility] Administration Carvedilol 12.5 mg 11/13/16 22:45 11/14/16 09:08 Coreg - PO 12.5 mg BID [facility] Administration Cholecalciferol 2,000 unit 11/14/16 10:00 11/14/16 09:09 Vitamin D3 - PO 2,000 unit DAILY [facility] Administration Ferrous Sulfate 325 mg 11/14/16 10:00 11/14/16 09:09 Feosol - PO 325 mg DAILY [facility] Administration Pantoprazole Sodium 40 mg/ 100 mls @ 200 mls/hr 11/14/16 10:00 11/14/16 10:32 Sodium Chloride IVPB 200 mls/hr DAILY [facility] Administration Cefazolin Sodium 1 gm/ 50 mls @ 100 mls/hr 11/14/16 11:45 Dextrose IVPB Q24H [facility] Nifedipine 30 mg 11/14/16 10:00 09/11/17 09:08 Procardia Xl - PO 30 mg DAILY [facility] Administration Pregabalin 50 mg 11/13/16 22:45 11/14/16 07:04 Lyrica - PO 50 mg TID [facility] Administration Torsemide 80 mg 11/14/16 10:00 11/14/16 09:09 Demadex - PO 80 mg DAILY [facility] Administration Constitutional: Well Nourished, Calm Eyes: Yes: Conjunctiva Clear HENT: Yes: Atraumatic Neck: Yes: Supple Cardiovascular: Yes: Regular Rate and Rhythm Respiratory: Yes: CTA Bilaterally Gastrointestinal Inspection: Yes: Scars (well healed laparoscopic inicisions) ...Auscultate: Yes: Normoactive Bowel Sounds ...Palpate: Yes: Soft, Other (nontender) ...Rectal Exam: Yes: Guaiac Negative, Sphincter Tone Normal, Other (2+ prostate is soft) Genitourinary: Yes: Other (normal testicles, no inguinal hernias) Edema: Yes Edema: LLE: 2+, RLE: 2+ Neurological: Yes: Alert, Oriented Labs: CBC, BMP 11/14/16 06:30 11/14/16 06:30 INR, PTT INR 1.33 (0.82-1.09) H 11/13/16 18:05 Laboratory Tests 11/13/16 11/13/16 11/14/16 18:05 18:05 06:30 WBC 7.0 Hgb 7.0 L D Hct 21.3 L D MCV 86.7 Plt Count 177 BUN 59 H D 61 H Creatinine 5.8 H D 5.7 H Total Bilirubin 0.4 D AST 31 D ALT 29 D Alkaline Phosphatase 58 Albumin 2.8 L D Vitamin B12 Serum Folate 11/14/16 06:30 WBC Hgb Hct MCV Plt Count BUN Creatinine Total Bilirubin AST ALT Alkaline Phosphatase Albumin Vitamin B12 881 Serum Folate 8 Assessment/Plan On my testing Rachid is guaiac negative. Neverthless given the severity of his anemia, gastric sleeve surgery and personal h/o multiple colon polyps I have advised a repeat endoscopic evaluation. He wishes to pursue this with Dr. Wilson at [facility] which I feel is fine. Will check iron indices and retic count to determine whether he would benefit from replacement. Will order Fibrosure to screen for SHABAZZ given his hypoalbuminemia and relatively low platelet count. Dr. Benitez will supervise Dr. Troy's consulation note.
--- NOTE | 2016-11-14 12:06 | CONS ---
DATE OF CONSULTATION: HISTORY: The patient is a 56-year-old morbidly obese male with a history of chronic kidney disease evaluated for osteomyelitis of the left great toe. The patient reports that earlier this summer he had sustained a traumatic injury to his left great toe. He reports that a bottle of soda fell on his left great toe resulting in a wound. He developed a nonhealing wound at the distal aspect of the toe for which he was followed in the wound care center. Despite outpatient management, it became progressively worse. He had an MRI performed as an outpatient and showed osteomyelitis of the distal aspect of the left great toe. A wound culture done as an outpatient grew MSSA. He is now admitted with anemia. He was found by his primary care physician to have significant anemia on routine blood work. He denies any foot pain. He does have some degree of peripheral neuropathy. The ulceration present at the distal aspect of the toe has been healed without drainage. He denies any associated fever or chills. He denies prior history of serious soft tissue injury or history of MRSA. PAST MEDICAL HISTORY: Positive for morbid obesity status post gastric bypass, diabetes mellitus, chronic kidney disease, hypertension, hyperlipidemia, obstructive sleep apnea, stroke, COPD, chronic venostasis, dermatitis. PAST SURGICAL HISTORY: Status post gastric bypass. ALLERGIES: SULFA (rash). MEDICATIONS: Omeprazole, Procardia, aspirin, Lipitor, carvedilol, Lyrica, Theosol. SOCIAL HISTORY: He resides at home. He has had recent hospitalizations in various hospitals in the [place] as well as [facility]. No recent [facility] admissions. He is a nonsmoker, nondrinker. SYSTEMS REVIEW: Neurologic: No loss of consciousness, seizure activity, focal weakness. Cardiac: Negative chest pain or palpitations. Respiratory: Negative cough or sputum production. Gastrointestinal: Negative vomiting or diarrhea. Genitourinary: Positive for chronic kidney disease. The patient is not on hemodialysis. LABORATORY DATA: White count 6.4, hematocrit 24, platelet count 172, BUN 61, creatinine 5.7. Cultures of the toe have grown Staphylococcus aureus as well as Diphtheroids. PHYSICAL EXAMINATION: General: He is awake and alert. He is not acutely toxic appearing. The patient is morbidly obese. He is in no acute distress. Vital Signs: Temperature 98.1, blood pressure 155/85, pulse 62, regular, respirations 20 per minute. HEENT: Sclerae anicteric. Heart: Sounds S1, S2. Lungs: Clear. Abdomen: Obese, soft, nontender. Extremities: Positive for edema. Examination of the left great toe, there is a healed ulceration present at the distal aspect of the left great toe. There is no purulent drainage. There is slight swelling of the toe and slight erythema. No tenderness elicited. No crepitus, fluctuance, or lymphangitic streaking. IMPRESSION: 1. Osteomyelitis of the left great toe. 2. Chronic kidney disease. 3. Anemia. We will start cefazolin adjusted for chronic kidney disease. He will require a tunneled catheter for long-term outpatient antibiotic therapy for his osteomyelitis. Obtain sedimentation rate and C-reactive protein. Wound care follow up. We will follow. Thank you for the kind referral. DALIA WITT M.D. [id number]
[2016-11-14] MEDS ORDERED: DEXTROSE 5%-WATER - 50 ML IVPB ONE (12:35)
[2016-11-14] MEDS ORDERED: ceFAZolin SODIUM 1 GM VIAL ONE (12:35)
[2016-11-14] MEDS: CEFAZOLIN 1 GM in DEXTROSE 5%-WATER - 50 ML IVPB SCH (12:37)
--- NOTE | 2016-11-14 15:32 | PN ---
Teaching Attending Note Name of Resident: Williams Troy ATTENDING PHYSICIAN STATEMENT I saw and evaluated the patient. I reviewed the resident's note and discussed the case with the resident. I agree with the resident's findings and plan as documented. SUBJECTIVE: 56M with chronic normocytic anemia Evaluated by Dr. Olivo earlier. Evaluation included a rectal exam that revealed guaiac negative stool No focal complaints OBJECTIVE: Anicteric Lungs CTA B/L Hrt RRR ASSESSMENT 1. Normocytic anemia: likely anemia of chronic disease however with 1 positive guaiac study noted during admission. negative on Dr. Olivo's study 2. Peripheral eosinophilia: worsened from porevious and unclear etiology PLAN: 1. Patient to be following-up with Dr. Deandre Wilson at [facility] as he is due for another colonoscopy at this time given his history of colon polyps 2. Consider hematology evaluation of eosinophilia
--- NOTE | 2016-11-14 15:33 | CONSULT ---
Consult Consult Specialty:: Nephrology Reason for Consultation:: CKD - History of Present Illness Chief Complaint: I sent pt in for anemia History of Present Illness: Pt is a 56 year old male with pmhx of CKD, HTN. DM. CVA, morbid obesity and bariatric surgery who I sent in to the hospital for blood transfusion. He had bloodwork done with his pmd which showed a hg of 7.4. Pt does not want to use epogen. He complains of fatigue. He denies chest pain or palpitations. He is awake and alert. He has an AV fistula but is not yet on HD. 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 Cardio/Vascular: Yes: HTN, Hyperlipdemia Pulmonary: Yes: Sleep Apnea Gastrointestinal: Yes: GERD, Other (obesity) Renal/: Yes: Renal Failure, Other (ckd) Endocrine: Yes: Diabetes Mellitus - Alcohol/Substance Use Hx Alcohol Use: No - Smoking History Smoking history: Never smoked Have you smoked in the past 12 months: No Aproximately how many cigarettes per day: 0 - Social History ADL: Independent History of Recent Travel: No Home Medications - Allergies Allergies/Adverse Reactions: Allergies Allergy/AdvReac Type Severity Reaction Status Date / Time Shellfish Allergy Severe Verified 11/13/16 17:11 sulfamethoxazole Allergy Severe Swelling Verified 11/13/16 17:11 [From Bactrim DS] trimethoprim Allergy Severe Swelling Verified 11/13/16 17:11 [From Bactrim DS] - Home Medications Home Medications: Ambulatory Orders Omeprazole [Prilosec (RX)] 20 mg PO PRN PRN 08/13/14 Nifedipine ER [Procardia XL -] 30 mg PO DAILY #30 tab.er.24 08/13/15 Aspirin [ASA -] 81 mg PO BID 05/24/16 Atorvastatin Ca [Lipitor] 80 mg PO HS 05/24/16 Calcium Acetate [Phoslo -] 667 mg PO TIDCM 05/24/16 Carvedilol 12.5 mg PO BID 05/24/16 Pregabalin [Lyrica -] 50 mg PO TID 05/24/16 Torsemide 80 mg PO DAILY 05/24/16 Ferrous Sulfate [Feosol] 1 tab PO DAILY 08/02/16 Albuterol Sulfate [Proair Respiclick] 90 mcg IH BID 11/13/16 Cholecalciferol (Vitamin D3) [Vitamin D3] 2,000 unit PO DAILY 11/13/16 Family Disease History - Family Disease History Family History: Denies Review of Systems - Review of Systems Constitutional: reports: No Symptoms Eyes: reports: No Symptoms HENT: reports: No Symptoms Neck: reports: No Symptoms Cardiovascular: reports: No Symptoms Respiratory: reports: No Symptoms Gastrointestinal: reports: No Symptoms Genitourinary: reports: No Symptoms Musculoskeletal: reports: No Symptoms Integumentary: reports: No Symptoms Neurological: reports: No Symptoms Endocrine: reports: No Symptoms Hematology/Lymphatic: reports: No Symptoms Psychiatric: reports: No Symptoms Physical Exam Vital Signs: Vital Signs Temperature 98.5 F 11/14/16 13:57 Pulse Rate 71 11/14/16 13:57 Respiratory Rate 20 11/14/16 13:57 Blood Pressure 156/83 11/14/16 13:57 O2 Sat by Pulse Oximetry (%) 99 11/14/16 09:00 Constitutional: Yes: Calm Eyes: Yes: Conjunctiva Clear HENT: Yes: Atraumatic Neck: Yes: Supple Cardiovascular: Yes: S1, S2 Respiratory: Yes: CTA Bilaterally Gastrointestinal: Yes: Soft, Abdomen, Obese Renal/: Yes: WNL Musculoskeletal: Yes: WNL Edema: Yes Edema: LLE: 2+, RLE: 2+ Neurological: Yes: Oriented Psychiatric: Yes: Oriented Labs: CBC, BMP 11/14/16 06:30 11/14/16 06:30 Laboratory Tests 11/13/16 11/13/16 11/14/16 18:05 18:05 06:30 WBC 6.4 Hgb 7.0 L D 7.8 L D Plt Count 172 Potassium Chloride BUN 59 H D Creatinine 5.8 H D 11/14/16 06:30 WBC Hgb Plt Count Potassium 4.7 Chloride 112 H BUN 61 H Creatinine 5.7 H Imaging - Results Chest X-ray: Report Reviewed Assessment/Plan Current Medications Generic Name Dose Route Start Last Admin Trade Name Freq PRN Reason Stop Dose Admin Albuterol Sulfate 2 puff 11/13/16 22:54 Ventolin Hfa Inhaler - IH BID PRN SHORTNESS OF BREATH Atorvastatin Calcium 80 mg 11/14/16 22:00 Lipitor - PO HS [facility] Calcium Acetate 667 mg 11/13/16 22:45 11/14/16 12:37 Phoslo - PO 667 mg TIDCM [facility] Administration Carvedilol 12.5 mg 11/13/16 22:45 11/14/16 09:08 Coreg - PO 12.5 mg BID [facility] Administration Cholecalciferol 2,000 unit 11/14/16 10:00 11/14/16 09:09 Vitamin D3 - PO 2,000 unit DAILY [facility] Administration Ferrous Sulfate 325 mg 11/14/16 10:00 11/14/16 09:09 Feosol - PO 325 mg DAILY [facility] Administration Pantoprazole Sodium 40 mg/ 100 mls @ 200 mls/hr 11/14/16 10:00 11/14/16 10:32 Sodium Chloride IVPB 200 mls/hr DAILY [facility] Administration Cefazolin Sodium 1 gm/ 50 mls @ 100 mls/hr 11/14/16 11:45 11/14/16 12:37 Dextrose IVPB 100 mls/hr Q24H [facility] Administration Nifedipine 30 mg 11/14/16 10:00 11/14/16 09:08 Procardia Xl - PO 30 mg DAILY [facility] Administration Pregabalin 50 mg 11/13/16 22:45 11/14/16 13:16 Lyrica - PO 50 mg TID [facility] Administration Torsemide 80 mg 11/14/16 10:00 11/14/16 09:09 Demadex - PO 80 mg DAILY [facility] Administration Impression 1. CKD 2. anemia 3. HTN 4. morbid obesity 5. CVA 6. hyperlipidemia 7. proteinuria - nephrotic Plan - repeat hg after transfusion - will not start HD at this time - can follow with me in office - cont with torsemide - renal diet - will follow Dr Win
[2016-11-14 16:26] LABS: MCH 28.9 pg (25.7-33.7); MCHC 33.2 g/dl (32.0-35.9); MEAN CELL VOLUME 86.8 fl (80-96); MEAN PLT VOLUME 9.8 fl (7.5-11.1); PLATELET COUNT 194 K/MM3 (134-434); RDW 14.2 % (11.9-15.9)
--- NOTE | 2016-11-14 16:47 | PN ---
Physical Exam: SUBJECTIVE: Patient seen and examined at bed side. No acute events over night. He denies fever, chills , N/V/D/C, chest pain or SOB. He denies any urinary symptoms, any hematuria or blood in the stool. no reaction after 2 units PRBC transfusion. He denies any steroids use, but reports using Aspirine 81 mg twice daily. OBJECTIVE: Vital Signs Period Temp Pulse Resp BP Sys/Leon Pulse Ox Last 24 Hr 98 F-98.6 F 62-84 18-20 134-166/80-97 97-99 GENERAL: The patient is awake, alert, and fully oriented, in no acute distress. HEAD: Normal with no signs of trauma. EYES: sclera anicteric, conjunctiva clear. No ptosis. ENT: moist mucous membranes. NECK: Trachea midline, full range of motion, supple. LUNGS: Breath sounds equal, clear to auscultation bilaterally, no wheezes, no crackles, no accessory muscle use. HEART: Regular rate and rhythm, S1, S2 without murmur, rub or gallop. ABDOMEN: Obese Soft, nontender, nondistended, normoactive bowel sounds, no guarding, no rebound, no hepatosplenomegaly, no masses. EXTREMITIES: 2+ pulses, warm, well-perfused, no edema. NEUROLOGICAL: Normal speech, gait not observed. PSYCH: Normal mood, normal affect. SKIN: Warm, dry, normal turgor, no rashes or lesions noted LINA: significant for Walters, but no blood , hemorrhoids of fissures, normal sphincter tone. Laboratory Results - last 24 hr 11/14/16 11/14/16 11/14/16 06:30 06:30 06:30 WBC 6.4 RBC 2.74 L Hgb 7.8 L D Hct 24.0 L MCV 87.5 MCH 28.3 MCHC 32.4 RDW 14.3 Plt Count 172 MPV 9.7 Sodium 143 Potassium 4.7 Chloride 112 H Carbon Dioxide 19 L Anion Gap 12 BUN 61 H Creatinine 5.7 H Random Glucose 111 H D Hemoglobin A1c % Calcium 7.7 L Vitamin B12 881 Serum Folate 8 11/14/16 06:30 WBC RBC Hgb Hct MCV MCH MCHC RDW Plt Count MPV Sodium Potassium Chloride Carbon Dioxide Anion Gap BUN Creatinine Random Glucose Hemoglobin A1c % 5.8 D Calcium Vitamin B12 Serum Folate Active Medications Generic Name Dose Route Start Last Admin Trade Name Nataliia PRN Reason Stop Dose Admin Albuterol Sulfate 2 puff 11/13/16 22:54 Ventolin Hfa Inhaler - IH BID PRN SHORTNESS OF BREATH Atorvastatin Calcium 80 mg 11/14/16 22:00 Lipitor - PO HS [facility] Calcium Acetate 667 mg 11/13/16 22:45 11/14/16 12:37 Phoslo - PO 667 mg TIDCM [facility] Administration Carvedilol 12.5 mg 11/13/16 22:45 11/14/16 09:08 Coreg - PO 12.5 mg BID [facility] Administration Cholecalciferol 2,000 unit 11/14/16 10:00 11/14/16 09:09 Vitamin D3 - PO 2,000 unit DAILY [facility] Administration Ferrous Sulfate 325 mg 11/14/16 10:00 11/14/16 09:09 Feosol - PO 325 mg DAILY [facility] Administration Pantoprazole Sodium 40 mg/ 100 mls @ 200 mls/hr 11/14/16 10:00 11/14/16 10:32 Sodium Chloride IVPB 200 mls/hr DAILY [facility] Administration Cefazolin Sodium 1 gm/ 50 mls @ 100 mls/hr 11/14/16 11:45 11/14/16 12:37 Dextrose IVPB 100 mls/hr Q24H [facility] Administration Nifedipine 30 mg 11/14/16 10:00 11/14/16 09:08 Procardia Xl - PO 30 mg DAILY [facility] Administration Pregabalin 50 mg 11/13/16 22:45 11/14/16 13:16 Lyrica - PO 50 mg TID [facility] Administration Torsemide 80 mg 11/14/16 10:00 11/14/16 09:09 Demadex - PO 80 mg DAILY [facility] Administration CBC, BMP 11/14/16 16:00 11/14/16 06:30 ASSESSMENT/PLAN: Pt is a 56yo M w/ hx of Anemia on Iron, CKD, s/p Gastric osteomyelits who presented to ER after being sent by PCP due to low Hgb/HCT. # Normocytic Anemia - likely due to CKD + malabsorption 2/2 gastric bypass vs occult blood loss - S/P 2 units PRBC , inapropriate response , repeat CBC - Epo level - Fe studies, B12, folate - Continue Iron supplements - FOBT+, GI consult, start IV protonix - Hold off on Lasix unless symptomatic due to renal function, Echo 2016 shows LVH with preserved 67% EF - F/u CXR - NPO for Now , if CBC is table will advance to clear liquids. # MONA on CKD - vs CKD progression vs ATN from previous abx use - Baseline Cr in August 2015 is 2.5, today 5.7 - Urine lytes to check FeUrea (pt on diuretics) - Hold off on fluids while patient receiving PRBC - renal U/S no hydronephrosis , no post voiding bladder residual - no obstructive sx - Continue Ca2+ and Vit D - Renal consult (pt follows Dr. Win) - Repeat BMP - Continue Torsemide per nephrology ,NO HD at this time is needed -Avoid nephrotoxic agents # Osteomyelitis of L great toe - Pt can follow up with wound care clinic - Pt states that he is scheduled for port placement tmrw for IV abx - ID consult Dr. 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 # HTN - Elevated BP 161/97 bc pt did not take Procardia this AM - Continue Procardia 30 PO daily + Coreg 12.5 PO BID - Continue monitor # Hx of DM2 - Was on medication in the past, not anymore - Check glucose w/ daily BMPs - NO SSI is needed at this time - Hgb A1C 5.8 - Diabetic diet - Monitor random Glucose # diastolic LVH w/ preserved EF - Continue Torsemide 80 mg PO daily HS # Hx of CAD - Hold ASA # Hx of HLD - Continue statin lipitor 80 PO HS # Hx of Peripheral Neuropathy - Continue Lyrica - Monitor clinically # Hx of Asthma, stable - Continue Albuterol PRN # Hx of HOLLY - Continue CPAP at night -F/U as out patient #morbid obesity - s/p gastric sleeve. -BMI 47.4 - Diet education , - f/u as out patient # FEN - Fluids: None needed - Electrolytes: No abnormalities - Nutrition: Renal diet, diabetic diet , NPO till CBC is stable then advance his diet. # Prophylaxis - DVT: SCDs, Hold anticoagulation due to possible bleeding - GI: IV Protonix 40 IVBP daily - Deconditioning: PT ordered # Med Rec - All meds were confirmed with patient at bedside # Dispo - Admit to Med/Surg - Visit type - Emergency Visit Emergency Visit: Yes ED Registration Date: 11/13/16 Care time: The patient presented to the Emergency Department on the above date and was hospitalized for further evaluation of their emergent condition. - New Patient This patient is new to me today: No - Critical Care Critical Care patient: No - Discharge Referral Referred to [facility] No
--- NOTE | 2016-11-14 16:59 | PN ---
Teaching Attending Note Name of Resident: Raffy Parra ATTENDING PHYSICIAN STATEMENT I saw and evaluated the patient. I reviewed the resident's note and discussed the case with the resident. I agree with the resident's findings and plan as documented. pt was seen and evaluated at 0900 SUBJECTIVE: currently asymptomatic. denies CP, SOB< fever, chills, N/V/C/D, BRBPR or melena. pt states he went for routine blood work 2 weeks ago with his PMD and his doctor called him on monday and told him to report to the hospital for blood transfusion. was told his Hgb was 7.4. states he had no symptoms for the past few days. no recent changes to his medications. no recent changes to his diet.last colonoscopy was 2 years ago and reports it as negative. takes asa daily but denies NSAID and steroid use OBJECTIVE: Last Vital Signs Temp Pulse Resp BP Pulse Ox 98.5 F 71 20 156/83 99 11/14/16 13:57 11/14/16 13:57 11/14/16 13:57 11/14/16 13:57 11/14/16 09:00 General NAD HEENT conjunctival pallor CV S1 S2 RRR no murmur/rub/gallop Lungs CTA B/L no wheezing/rales/rhonchi Abdomen soft NT/ND obese Rectal done by resident. +skin tags, no hemorrhoids, no blood visualized. no stool in rectal vault ASSESSMENT AND PLAN: 56yo M wt PM CKD stage V, DM, HTN, s/p gastric bypass, morbid obesity with recent treatment for OM was told to report to the ER for anemia 1. Symptomatic anemia- as per ER he was short of breath and pale. s/p 2 units PRBC with inappropriate response. pt appears to no longer be symptomatic. + FOBT. will call PMD to obtain baseline Hgb. repeat CBC now and transfuse if remains low. NPO for now. cont PPI ggt. GI evaluation. repeat iron studies 36H after blood transfusion. 2. Acute on CKD-unknown baseline. will obtain from PMD. hold torsemide. check renal/bladder u/s. urines studies pending. renal evaluation. avoid nephrotoxic agents 3. Chronic OM- was schedule for tunneled catheter for group home abx. ID consulted to start abx and management. f/u evaluation 4. DM- not on diabetic medications. seems diet controlled. A1c 5.8. does not require bgm or iss at this time 5. HTN- above goal. will consider titrating up medications if remains above goal. cont coreg and nifedipine 6. morbid obesity- s/p gastric bypass. remains obese 7. DVT ppx- SCD. hold oral anticoagulation due to suspected bleeding.
[2016-11-14] MEDS: ATORVASTATIN CA 80 MG TABLET (FP) PO SCH (21:30)
--- NOTE | 2016-11-14 21:47 | EKG ---
Test Reason : Blood Pressure : / mmHG Vent. Rate : 079 BPM Atrial Rate : 079 BPM P-R Int : 194 ms QRS Dur : 094 ms QT Int : 386 ms P-R-T Axes : 056 -59 064 degrees QTc Int : 442 ms NORMAL SINUS RHYTHM LEFT AXIS DEVIATION ABNORMAL ECG WHEN COMPARED WITH ECG OF 12-AUG-2015 16:25, VENT. RATE HAS INCREASED BY 26 BPM Confirmed by BLANCA UNGER, PIERRE ([id number]) on 11/14/2016 9:47:19 PM Referred By: Confirmed By:PIERRE RIOS MD
[2016-11-15] MEDS: PREGABALIN 50 MG CAPSULE PO SCH ×3 (05:43→21:52)
[2016-11-15 06:59] LABS: FIBROSURE ASH COMMENT SEE FILE COPY
[2016-11-15 07:10] LABS: BASOPHIL 2.4 % (0-2.0); EOSINOPHIL 21.7 % (0-4.5); MCH 28.5 pg (25.7-33.7); MEAN CELL VOLUME 86.5 fl (80-96); MEAN PLT VOLUME 9.3 fl (7.5-11.1); PLATELET COUNT 184 K/MM3 (134-434); RDW 14.5 % (11.9-15.9); WHITE BLOOD COUNT 7.2 K/mm3 (4.0-10.0)
[2016-11-15 07:39] LABS: ANION GAP 7 (8-16); CO2 23 mmol/L (21-32); GLUCOSE,RANDOM 147 mg/dL (74-106)
[2016-11-15 07:45] LABS: CALCIUM 8.6 mg/dL (8.5-10.1); CREATININE 5.9 mg/dL (0.7-1.3); FERRITIN 173.956 ng/ml (16.4-293.9)
[2016-11-15] MEDS: CALCIUM ACETATE 667 MG CAPSULE (FP) PO SCH ×3 (08:14→17:09)
[2016-11-15] MEDS ORDERED: SODIUM CHLORIDE 100 ML IVPB ONE (09:04)
[2016-11-15] MEDS ORDERED: PANTOPRAZOLE SODIUM 40 MG VIAL ONE (09:04)
[2016-11-15] MEDS: NIFEdipine E.R. 30 MG TABLET (FP) PO SCH (09:05)
[2016-11-15] MEDS: FERROUS SO4 325 MG TABLET (FP) PO SCH (09:05)
[2016-11-15] MEDS: PANTOPRAZOLE SODIUM 40 MG in SODIUM CHLORIDE 100 ML IVPB SCH (09:05)
[2016-11-15] MEDS: CARVEDILOL 12.5 MG TABLET (FP) PO SCH ×2 (09:05→21:52)
[2016-11-15] MEDS: TORSEMIDE 20 MG TABLET (FP) PO SCH (09:05)
[2016-11-15] MEDS: CHOLECALCIFEROL (VITAMIN D3) 1,000 UNIT TABLET (FP) PO SCH (09:07)
--- NOTE | 2016-11-15 09:24 | PN ---
Progress Note, Physician History of Present Illness: Patient seen and examined at bedside. Patient sleeping comfortably on no supplemental oxygen. No acute overnight events as per nurse and patient. Patient denies any current complaints (chest pain, SOB, nausea, vomiting, diarrhea, abdominal pain, fevers, chills, malaise). Patient states he had a normal, non-bloody bowel movement yesterday and his appetite is normal. - Current Medication List Current Medications: Active Medications Albuterol Sulfate (Ventolin Hfa Inhaler -) 2 puff IH BID PRN PRN Reason: SHORTNESS OF BREATH Atorvastatin Calcium (Lipitor -) 80 mg PO HS [facility] Last Admin: 11/14/16 21:30 Dose: 80 mg Calcium Acetate (Phoslo -) 667 mg PO TIDCM [facility] Last Admin: 11/15/16 08:14 Dose: 667 mg Carvedilol (Coreg -) 12.5 mg PO BID [facility] Last Admin: 11/15/16 09:05 Dose: 12.5 mg Cholecalciferol (Vitamin D3 -) 2,000 unit PO DAILY [facility] Last Admin: 11/15/16 09:07 Dose: 2,000 unit Ferrous Sulfate (Feosol -) 325 mg PO DAILY [facility] Last Admin: 11/15/16 09:05 Dose: 325 mg Pantoprazole Sodium 40 mg/ (Sodium Chloride) 100 mls @ 200 mls/hr IVPB DAILY [facility] Last Admin: 11/15/16 09:05 Dose: 200 mls/hr Cefazolin Sodium 1 gm/ (Dextrose) 50 mls @ 100 mls/hr IVPB Q24H [facility] Last Admin: 11/14/16 12:37 Dose: 100 mls/hr Nifedipine (Procardia Xl -) 30 mg PO DAILY [facility] Last Admin: 11/15/16 09:05 Dose: 30 mg Pregabalin (Lyrica -) 50 mg PO TID [facility] Last Admin: 11/15/16 05:43 Dose: 50 mg Torsemide (Demadex -) 80 mg PO DAILY [facility] Last Admin: 11/15/16 09:05 Dose: 80 mg - Objective Vital Signs: Vital Signs Temperature 98.4 F 11/15/16 05:53 Pulse Rate 70 11/15/16 05:53 Respiratory Rate 20 11/15/16 05:53 Blood Pressure 145/70 11/15/16 05:53 O2 Sat by Pulse Oximetry (%) 99 11/14/16 20:59 Constitutional: Yes: No Distress, Calm, Obese Eyes: Yes: Conjunctiva Clear, EOM Intact HENT: Yes: Atraumatic, Normocephalic Neck: Yes: Supple, Trachea Midline Cardiovascular: Yes: Regular Rate and Rhythm, S1, S2. No: Gallop, Murmur, Rub Respiratory: Yes: Regular, CTA Bilaterally. No: Rales, Rhonchi, SOB, Stridor, Tachypnea Gastrointestinal: Yes: Normal Bowel Sounds, Soft, Abdomen, Obese, Other (a few purpura are noted on the lower abdomen (chronic and over 1 year in duration according to patient)). No: Distention, Hematemesis, Hepatomegaly, Hernia, Palpable Mass, Splenomegaly, Tenderness, Vomiting Musculoskeletal: Yes: WNL Extremities: Yes: WNL Edema: LUE: 1+, RUE: 1+, LLE: 1+, RLE: 1+ Peripheral Pulses WNL: Yes Peripheral Pulses: Left Radial: 2+, Right Radial: 2+, Left Doralis Pedis: 2+, Right Dorsalis Pedis: 2+, Left Femoral: 2+, Right Femoral: 2+ Integumentary: Yes: Bruising (lower abdomen) Neurological: Yes: Alert, Oriented, Cran Nerves II-XII Intact ...Motor Strength: WNL Psychiatric: Yes: Alert, Oriented Labs: CBC, [facility] 11/15/16 06:00 11/15/16 06:00 INR, PTT INR 1.33 (0.82-1.09) H 11/13/16 18:05 <Williams Troy - Last Filed: 11/15/16 09:19> - Objective Vital Signs: Vital Signs Temperature 98.2 F 11/16/16 18:24 Pulse Rate 75 11/16/16 18:24 Respiratory Rate 18 11/16/16 18:24 Blood Pressure 135/77 11/16/16 18:24 O2 Sat by Pulse Oximetry (%) 98 11/16/16 11:37 Labs: CBC, [facility] 11/16/16 06:00 11/16/16 06:00 INR, PTT INR 1.33 (0.82-1.09) H 11/13/16 18:05 <Mejia Olivo - Last Filed: 11/17/16 21:02> Problem List - Problems (1) Anemia Code(s): D64.9 - ANEMIA, UNSPECIFIED Qualifiers: Anemia type: other cause Other causes of anemia: other cause, not classified Qualified Code(s): D64.89 - Other specified anemias <Williams Troy - Last Filed: 11/15/16 09:19> Assessment/Plan Assessment: 56 year old male pmh DM, CKD, HLD, HTN, CVA, COPD, venous stasis, cellulitis, chronic osteomyelitis, s/p gastric sleeve 05/05/14 seen by the gastroenterology service for evaluation of anemia Anemia: possibly iron deficiency vs GI cause vs chronic kidney disease-induced -iron studies normal, unlikely Fe-deficiency anemia -Guiac negative, less likely GI bleed -B12/folate normal, unlikely B12 deficiency -worsening eosinophilia -f/u hepatitis studies, transglutaminases -patient is due for a second colonoscopy soon - recommend he has it done this year. After discussing with the patient, patient prefers having it done by Dr. Wilson at [facility]. -continue to follow ATTENDING PHYSICIAN STATEMENT I saw and evaluated the patient. I reviewed the resident's note and discussed the case with the resident. I agree with the resident's findings and plan as documented. SUBJECTIVE: OBJECTIVE: ASSESSMENT AND PLAN: <Williams Troy - Last Filed: 11/15/16 09:19>
[2016-11-15] MEDS ORDERED: ceFAZolin SODIUM 1 GM VIAL ONE (11:46)
[2016-11-15] MEDS ORDERED: DEXTROSE 5%-WATER - 50 ML IVPB ONE (11:47)
[2016-11-15] MEDS: CEFAZOLIN 1 GM in DEXTROSE 5%-WATER - 50 ML IVPB SCH (12:16)
--- NOTE | 2016-11-15 13:01 | CONSULT ---
Consult - text type - Consultation Consultation Note: Podiatry Consultation: 56 year old DM M, well known to me from wound care, admitted to hospital for anemia, SOB. Patient being followed in wound care center, does have distal tuft hallux ulcer. Patient received MRI as outpatient which showed bone marrow edema distal phalanx. I recommended bone biopsy at that time, however patient refused any type of surgical intervention, at which time I referred to Infectious disease for outpatient management. Patient was admitted prior to ID appointment. Currently feels better. PMHx: DM, HTN, CKD, h/o gastric bypass, CVA Meds: noted in chart ALL: shellfish, bactrim KEEGAN: L foot: distal tuft hallux ulcer with mixed fibrogranular base, probes deep, no bone palpated, no purulence, no fluctuance, no periwound erythema, no ascending cellulitis, no signs of acute infection. Minimal tenderness to palpation. WBC: 7.2 Imp: 56 year old DM M with L great toe ulcer and osteomyelitis 1. C/w local wound care rx 2. Tunneled catheter for IV abx access 3. Will follow in wound care center 11/22. No surgical intervention. Amarilis Alcantara DPM
--- NOTE | 2016-11-15 13:04 | PN ---
Teaching Attending Note Name of Resident: Williams Troy ATTENDING PHYSICIAN STATEMENT I saw and evaluated the patient. I reviewed the resident's note and discussed the case with the resident. I agree with the resident's findings and plan as documented. Assessment: Normocytic anemia Eosinophilia Plan: Patient to follow-up with Dr. Wilson as outpatient to discuss repeat colonoscopy Consider work-up of peripheral eosinophilia Will sign off. Recall as needed
--- NOTE | 2016-11-15 13:37 | PN ---
Progress Note, Physician History of Present Illness: No c/o foot pain No fever chills Tolerating antibiotic - Current Medication List Current Medications: Active Medications Albuterol Sulfate (Ventolin Hfa Inhaler -) 2 puff IH BID PRN PRN Reason: SHORTNESS OF BREATH Atorvastatin Calcium (Lipitor -) 80 mg PO HS [facility] Last Admin: 11/14/16 21:30 Dose: 80 mg Calcium Acetate (Phoslo -) 667 mg PO TIDCM [facility] Last Admin: 11/15/16 12:16 Dose: 667 mg Carvedilol (Coreg -) 12.5 mg PO BID [facility] Last Admin: 11/15/16 09:05 Dose: 12.5 mg Cholecalciferol (Vitamin D3 -) 2,000 unit PO DAILY [facility] Last Admin: 11/15/16 09:07 Dose: 2,000 unit Ferrous Sulfate (Feosol -) 325 mg PO DAILY [facility] Last Admin: 11/15/16 09:05 Dose: 325 mg Pantoprazole Sodium 40 mg/ (Sodium Chloride) 100 mls @ 200 mls/hr IVPB DAILY [facility] Last Admin: 11/15/16 09:05 Dose: 200 mls/hr Cefazolin Sodium 1 gm/ (Dextrose) 50 mls @ 100 mls/hr IVPB Q24H [facility] Last Admin: 11/15/16 12:16 Dose: 100 mls/hr Nifedipine (Procardia Xl -) 30 mg PO DAILY [facility] Last Admin: 11/15/16 09:05 Dose: 30 mg Pregabalin (Lyrica -) 50 mg PO TID [facility] Last Admin: 11/15/16 05:43 Dose: 50 mg Torsemide (Demadex -) 80 mg PO DAILY [facility] Last Admin: 11/15/16 09:05 Dose: 80 mg - Objective Vital Signs: Vital Signs Temperature 98.3 F 11/15/16 09:00 Pulse Rate 81 11/15/16 09:00 Respiratory Rate 18 11/15/16 09:00 Blood Pressure 141/78 11/15/16 09:00 O2 Sat by Pulse Oximetry (%) 97 11/15/16 09:00 Constitutional: Yes: No Distress, Obese Cardiovascular: Yes: Regular Rate and Rhythm, S1, S2 Respiratory: Yes: CTA Bilaterally Gastrointestinal: Yes: Normal Bowel Sounds, Soft, Abdomen, Obese. No: Tenderness Extremities: Yes: Other (healed great toe ulcer + 2 small ulcers 2nd toe) Labs: CBC, BMP 11/15/16 06:00 11/15/16 06:00 INR, PTT INR 1.33 (0.82-1.09) H 11/13/16 18:05 Assessment/Plan Osteomyelitis , great toe CKD Anemia Continue cefazolin, adjusted for renal failure Will need tunnelled catheter prior to discharge
--- NOTE | 2016-11-15 14:09 | PN ---
Teaching Attending Note Name of Resident: Raffy Parra ATTENDING PHYSICIAN STATEMENT I saw and evaluated the patient. I reviewed the resident's note and discussed the case with the resident. I agree with the resident's findings and plan as documented. SUBJECTIVE: Patient is sleepy - he did not use CPAP last night. OBJECTIVE: Vital Signs Period Temp Pulse Resp BP Sys/Leon Pulse Ox Last 24 Hr 97.9 F-98.5 F 70-81 18-20 127-165/70-105 97-99 HEART: S1S2, RRR LUNGS: Clear ABDOMEN: Obese, soft, non-tender, non-distended, normal BS EXTREMITIES: 2+ edema with chronic venous stasis changes Current Medications Generic Name Dose Route Start Last Admin Trade Name Freq PRN Reason Stop Dose Admin Albuterol Sulfate 2 puff 11/13/16 22:54 Ventolin Hfa Inhaler - IH BID PRN SHORTNESS OF BREATH Atorvastatin Calcium 80 mg 11/14/16 22:00 11/14/16 21:30 Lipitor - PO 80 mg HS [facility] Administration Calcium Acetate 667 mg 11/13/16 22:45 11/15/16 12:16 Phoslo - PO 667 mg TIDCM [facility] Administration Carvedilol 12.5 mg 11/13/16 22:45 11/15/16 09:05 Coreg - PO 12.5 mg BID [facility] Administration Cholecalciferol 2,000 unit 11/14/16 10:00 11/15/16 09:07 Vitamin D3 - PO 2,000 unit DAILY [facility] Administration Ferrous Sulfate 325 mg 11/14/16 10:00 11/15/16 09:05 Feosol - PO 325 mg DAILY [facility] Administration Pantoprazole Sodium 40 mg/ 100 mls @ 200 mls/hr 11/14/16 10:00 11/15/16 09:05 Sodium Chloride IVPB 200 mls/hr DAILY [facility] Administration Cefazolin Sodium 1 gm/ 50 mls @ 100 mls/hr 11/14/16 11:45 11/15/16 12:16 Dextrose IVPB 100 mls/hr Q24H [facility] Administration Nifedipine 30 mg 11/14/16 10:00 11/15/16 09:05 Procardia Xl - PO 30 mg DAILY [facility] Administration Pregabalin 50 mg 11/13/16 22:45 11/15/16 13:44 Lyrica - PO 50 mg TID [facility] Administration Torsemide 80 mg 11/14/16 10:00 11/15/16 09:05 Demadex - PO 80 mg DAILY [facility] Administration ASSESSMENT AND PLAN: This is a 56 year old man wtih a history of stage 5 CKD, type 2 DM, HTN, gastric bypass, morbid obesity, osteomyelitis who presented to the ER for anemia. 1. Symptomatic anemia - Transfused 2 units PRBCs with inappropriate response - Hemoglobin is stable and at baseline - No evidence of bleeding - Follow-up with GI as outpatient regarding colonoscopy (history of polyps) - Anemia likely secondary to CKD 2. 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 Left 1st toe ulcer with osteomyelitis - Continue Ancef - Plan for tunneled catheter for home Ancef 4. Type 2 DM 5. HTN - Continue Coreg, Procardia XL, Demadex 6. Hyperlipidemia - Continue Lipitor 7. Morbid obesity with BMI 46.7, history of sleeve gastrectomy 8. Eosinophilia
--- NOTE | 2016-11-15 14:19 | PN ---
Progress Note, Physician History of Present Illness: Pt seen and examined at bedside. He is awake and alert. He denies chest pain or palpitations. - Current Medication List Current Medications: Active Medications Albuterol Sulfate (Ventolin Hfa Inhaler -) 2 puff IH BID PRN PRN Reason: SHORTNESS OF BREATH Atorvastatin Calcium (Lipitor -) 80 mg PO HS [facility] Last Admin: 11/14/16 21:30 Dose: 80 mg Calcium Acetate (Phoslo -) 667 mg PO TIDCM [facility] Last Admin: 11/15/16 12:16 Dose: 667 mg Carvedilol (Coreg -) 12.5 mg PO BID [facility] Last Admin: 11/15/16 09:05 Dose: 12.5 mg Cholecalciferol (Vitamin D3 -) 2,000 unit PO DAILY [facility] Last Admin: 11/15/16 09:07 Dose: 2,000 unit Ferrous Sulfate (Feosol -) 325 mg PO DAILY [facility] Last Admin: 11/15/16 09:05 Dose: 325 mg Pantoprazole Sodium 40 mg/ (Sodium Chloride) 100 mls @ 200 mls/hr IVPB DAILY [facility] Last Admin: 11/15/16 09:05 Dose: 200 mls/hr Cefazolin Sodium 1 gm/ (Dextrose) 50 mls @ 100 mls/hr IVPB Q24H [facility] Last Admin: 11/15/16 12:16 Dose: 100 mls/hr Nifedipine (Procardia Xl -) 30 mg PO DAILY [facility] Last Admin: 11/15/16 09:05 Dose: 30 mg Pregabalin (Lyrica -) 50 mg PO TID [facility] Last Admin: 11/15/16 13:44 Dose: 50 mg Torsemide (Demadex -) 80 mg PO DAILY [facility] Last Admin: 11/15/16 09:05 Dose: 80 mg - Objective Vital Signs: Vital Signs Temperature 98.1 F 11/15/16 13:47 Pulse Rate 71 11/15/16 13:47 Respiratory Rate 20 11/15/16 13:47 Blood Pressure 127/74 11/15/16 13:47 O2 Sat by Pulse Oximetry (%) 97 11/15/16 09:00 Constitutional: Yes: Calm Eyes: Yes: Conjunctiva Clear HENT: Yes: Atraumatic Neck: Yes: Supple Cardiovascular: Yes: S1, S2 Respiratory: Yes: CTA Bilaterally Gastrointestinal: Yes: Soft, Abdomen, Obese Genitourinary: Yes: WNL Musculoskeletal: Yes: WNL Edema: Yes Edema: LLE: 2+, RLE: 2+ Neurological: Yes: Oriented Psychiatric: Yes: Oriented Labs: CBC, BMP 11/15/16 06:00 11/15/16 06:00 INR, PTT INR 1.33 (0.82-1.09) H 11/13/16 18:05 Problem List - Problems (1) Chronic kidney disease Code(s): N18.9 - CHRONIC KIDNEY DISEASE, UNSPECIFIED Qualifiers: Chronic kidney disease stage: unspecified stage Qualified Code(s): N18.9 - Chronic kidney disease, unspecified (2) Morbid obesity Code(s): E66.01 - MORBID (SEVERE) OBESITY DUE TO EXCESS CALORIES (3) DM type 2, uncontrolled, with renal complications Code(s): E11.29 - TYPE 2 DIABETES MELLITUS W OTH DIABETIC KIDNEY COMPLICATION E11.65 - TYPE 2 DIABETES MELLITUS WITH HYPERGLYCEMIA (4) HTN (hypertension) Code(s): I10 - ESSENTIAL (PRIMARY) HYPERTENSION (5) Lymph edema Code(s): I89.0 - LYMPHEDEMA, NOT ELSEWHERE CLASSIFIED (6) Proteinuria Code(s): R80.9 - PROTEINURIA, UNSPECIFIED Assessment/Plan Current Medications Generic Name Dose Route Start Last Admin Trade Name Freq PRN Reason Stop Dose Admin Albuterol Sulfate 2 puff 11/13/16 22:54 Ventolin Hfa Inhaler - IH BID PRN SHORTNESS OF BREATH Atorvastatin Calcium 80 mg 11/14/16 22:00 11/14/16 21:30 Lipitor - PO 80 mg HS [facility] Administration Calcium Acetate 667 mg 11/13/16 22:45 11/15/16 12:16 Phoslo - PO 667 mg TIDCM [facility] Administration Carvedilol 12.5 mg 11/13/16 22:45 11/15/16 09:05 Coreg - PO 12.5 mg BID [facility] Administration Cholecalciferol 2,000 unit 11/14/16 10:00 11/15/16 09:07 Vitamin D3 - PO 2,000 unit DAILY [facility] Administration Ferrous Sulfate 325 mg 11/14/16 10:00 11/15/16 09:05 Feosol - PO 325 mg DAILY [facility] Administration Pantoprazole Sodium 40 mg/ 100 mls @ 200 mls/hr 11/14/16 10:00 11/15/16 09:05 Sodium Chloride IVPB 200 mls/hr DAILY [facility] Administration Cefazolin Sodium 1 gm/ 50 mls @ 100 mls/hr 11/14/16 11:45 11/15/16 12:16 Dextrose IVPB 100 mls/hr Q24H [facility] Administration Nifedipine 30 mg 11/14/16 10:00 11/15/16 09:05 Procardia Xl - PO 30 mg DAILY [facility] Administration Pregabalin 50 mg 11/13/16 22:45 11/15/16 13:44 Lyrica - PO 50 mg TID [facility] Administration Torsemide 80 mg 11/14/16 10:00 11/15/16 09:05 Demadex - PO 80 mg DAILY [facility] Administration Impression 1. CKD 2. anemia 3. HTN 4. morbid obesity 5. CVA 6. hyperlipidemia 7. proteinuria - nephrotic Plan - monitor hg - abx per ID - cont diuretics - will not start HD at this time - can follow with me in office - renal diet - will follow Dr Win
--- NOTE | 2016-11-15 14:37 | DS ---
Physical Exam: SUBJECTIVE: Patient seen and examined at bed side. He is doing much better, no acute events over night. He denies dizziness, lightheadedness, palpitation ,SOB , N/V/D/C. OBJECTIVE: Vital Signs Period Temp Pulse Resp BP Sys/Leon Pulse Ox Last 24 Hr 97.9 F-98.4 F 70-81 18-20 127-165/70-105 97-99 PHYSICAL EXAM GENERAL: The patient is awake, alert, and fully oriented, in no acute distress. HEAD: Normal with no signs of trauma. EYES: PERRL, sclera anicteric, conjunctiva clear. ENT: moist mucous membranes. NECK: Trachea midline, full range of motion, supple. LUNGS: Breath sounds equal, clear to auscultation bilaterally, no wheezes, no crackles, no accessory muscle use. HEART: Regular rate and rhythm, S1, S2 without murmur, rub or gallop. ABDOMEN: Soft, nontender, nondistended, normoactive bowel sounds, no guarding, no rebound, no hepatosplenomegaly, no masses. EXTREMITIES: 2+ pulses, warm, well-perfused, no edema. NEUROLOGICAL:Normal speech, gait not observed. PSYCH: Normal mood, normal affect. SKIN: Warm, dry, normal turgor, no rashes or lesions noted. LABS Laboratory Results - last 24 hr 11/14/16 11/15/16 11/15/16 16:00 06:00 06:00 WBC 7.0 RBC 2.96 L Hgb 8.5 L Hct 25.7 L MCV 86.8 MCH 28.9 MCHC 33.2 RDW 14.2 Plt Count 194 MPV 9.8 Neutrophils % Lymphocytes % Monocytes % Eosinophils % Basophils % ESR 73 H Sodium Potassium Chloride Carbon Dioxide Anion Gap BUN Creatinine Random Glucose Calcium Ferritin GGT C-Reactive Protein 0.8 H Ur Random Sodium Ur Random Potassium Ur Random Chloride Urine Creatinine 11/15/16 11/15/16 11/15/16 06:00 06:00 07:26 WBC 7.2 RBC 2.75 L Hgb 7.8 L Hct 23.8 L MCV 86.5 MCH 28.5 MCHC 33.0 RDW 14.5 Plt Count 184 MPV 9.3 Neutrophils % 51.0 Lymphocytes % 15.4 D Monocytes % 9.5 Eosinophils % 21.7 H* Basophils % 2.4 H ESR Sodium 142 Potassium 4.6 Chloride 112 H Carbon Dioxide 23 D Anion Gap 7 L BUN 64 H Creatinine 5.9 H Random Glucose 147 H D Calcium 8.6 Ferritin 173.956 GGT 24 C-Reactive Protein Ur Random Sodium Ur Random Potassium Ur Random Chloride Urine Creatinine 56.9 11/15/16 07:26 WBC RBC Hgb Hct MCV MCH MCHC RDW Plt Count MPV Neutrophils % Lymphocytes % Monocytes % Eosinophils % Basophils % ESR Sodium Potassium Chloride Carbon Dioxide Anion Gap BUN Creatinine Random Glucose Calcium Ferritin GGT C-Reactive Protein Ur Random Sodium 80 Ur Random Potassium 19.2 Ur Random Chloride 81 Urine Creatinine HOSPITAL COURSE: Date of Admission:11/13/16 Date of Discharge: 11/15/16 This is a 56 year old man wtih a history of stage 5 CKD, type 2 DM, HTN, gastric sleeve , morbid obesity, osteomyelitis who presented to the ER for anemia. 3 unitis PRBCs were transfused with inappropriate response. No evidence of bleeding . The anemia likely from CKD vs Gastric sleeve , he needs to follow up with his GI doctor at [facility] for colonoscopy for History of polyps. Patient has chronic kidney disease stage 5 with CR base line around 6. legal support analyst was consulted. continue his Torsemide and phoslo. patient has osteomyelitis on his left big toe, was treated with Cafzolin 1 mg IV daily. ID was consulted. Tunnel cath inserted 11/15 and he will follow up with the infusion clinic as out patient with cefazolin. Patient lab was significant for Eosinophilia he can follow up as out patient for that. Patient has morbid obesity with MBI 46.7 S/P gastric sleeve. patient will continue home meds for chronic diseases DM, HTN, HLD. Patient will follow up with his PCP within a week, and with ID doctor BECK, he will follow up with his GI doctor at [facility] for possible colonoscopy. If patient develop fever, chills , lightheadedness, palpitation, shortness of breath he will call his PCP or come to the ER. Discharge Summary Reason For Visit: STATIS EDEMA WITH ULCER OF LEFT LOWER EXTREMITY Current Active Problems Anemia (Acute) Chronic kidney disease (Acute) Morbid obesity (Acute) Stasis edema with ulcer of left lower extremity (Acute) Condition: Stable - Instructions Diet, Activity, Other Instructions: Your were admitted to the hospital for anemia . 2 units of red blood cells were transfused. your hemoglobin improved to 7.8 , no active bleeding was observed. Tunnel catheter is placed for intravenous antibiotics. You need to follow up with infusion clinic as scheduled for continued antibiotic treatment. please follow diabetic diet and change your life style, loose weight to avoid complications. Please use the CPAP machine for Obstructive sleep apnea. Please continue your home medications as prescribed. please take Aspirin 81 mg once daily. Please follow up with your primary care physician within a week. Please follow up with infectious disease doctor [place] within 3 days. Please follow up with Dr Brigitte Win the kidney doctor within a week. Please follow up with your body bumper doctor at [facility] for Colonoscopy. If you develop fever, chills , shortness of breath, dizziness, lightheadedness, palpitation or you notice any blood in the urine or the stool please come back to the Emergency department or call your primary care physician. Referrals: Rachid Campbell MD [Staff Physician] - 11/17/16 (ifectious disease) Tashia Cadet MD [Primary Care Provider] - Brigitte Win MD [Staff Physician] - 1 Week (Kidney doctor ) Disposition: HOME - Home Medications Comprehensive Discharge Medication List: Ambulatory Orders Omeprazole [Prilosec (RX)] 20 mg PO PRN PRN 08/13/14 Nifedipine ER [Procardia XL -] 30 mg PO DAILY #30 tab.er.[id number] 08/13/15 Atorvastatin Ca [Lipitor] 80 mg PO HS 05/24/16 Calcium Acetate [Phoslo -] 667 mg PO TIDCM 05/24/16 Carvedilol 12.5 mg PO BID 05/24/16 Pregabalin [Lyrica -] 50 mg PO TID 05/24/16 Torsemide 80 mg PO DAILY 05/24/16 Ferrous Sulfate [Feosol] 1 tab PO DAILY 08/02/16 Albuterol Sulfate [Proair Respiclick] 90 mcg IH BID 11/13/16 Cholecalciferol (Vitamin D3) [Vitamin D3] 2,000 unit PO DAILY 11/13/16 Aspirin [ASA -] 81 mg PO DAILY #30 tab.chew 11/15/16 This patient is new to me today: Yes Date on this admission: 11/16/16 Emergency Visit: No Critical Care patient: No - Discharge Referral Referred to [facility] Med P.C.: Yes
[2016-11-15] MEDS: ATORVASTATIN CA 80 MG TABLET (FP) PO SCH (21:52)
[2016-11-16] MEDS: PREGABALIN 50 MG CAPSULE PO SCH ×2 (05:57→15:03)
[2016-11-16 06:07] LABS: SERUM IRON 85 ug/dL (38-169); TOTAL IRON BINDING CAPACITY 347 ug/dL (250-450); UIBC 262 ug/dL (111-343)
[2016-11-16 08:08] LABS: BASOPHIL 2.4 % (0-2.0); EOSINOPHIL 18.9 % (0-4.5); MCHC 32.4 g/dl (32.0-35.9); MEAN CELL VOLUME 86.4 fl (80-96); MEAN PLT VOLUME 9.7 fl (7.5-11.1); NEUTROPHILS 51.7 % (42.8-82.8); PLATELET COUNT 177 K/MM3 (134-434); RDW 14.4 % (11.9-15.9)
[2016-11-16 08:10] LABS: HEP B SURFACE AB Non Reactive (.)
[2016-11-16 08:14] LABS: ANION GAP 10 (8-16); CO2 22 mmol/L (21-32); GLUCOSE,RANDOM 133 mg/dL (74-106)
[2016-11-16] MEDS: CALCIUM ACETATE 667 MG CAPSULE (FP) PO SCH ×3 (08:50→17:03)
[2016-11-16] MEDS ORDERED: DEXTROSE 5%-WATER - 50 ML IVPB ONE (09:42)
[2016-11-16] MEDS ORDERED: ceFAZolin SODIUM 1 GM VIAL ONE (09:42)
[2016-11-16] MEDS ORDERED: PT OWN MED DRAWER 7, Y5N ONE (09:42)
[2016-11-16] MEDS: CHOLECALCIFEROL (VITAMIN D3) 1,000 UNIT TABLET (FP) PO SCH (09:49)
[2016-11-16] MEDS: FERROUS SO4 325 MG TABLET (FP) PO SCH (09:49)
[2016-11-16] MEDS: TORSEMIDE 20 MG TABLET (FP) PO SCH (09:50)
[2016-11-16] MEDS: NIFEdipine E.R. 30 MG TABLET (FP) PO SCH (09:50)
[2016-11-16] MEDS: CARVEDILOL 12.5 MG TABLET (FP) PO SCH (09:50)
[2016-11-16] MEDS: PANTOPRAZOLE SODIUM 40 MG in SODIUM CHLORIDE 100 ML IVPB SCH (09:51)
[2016-11-16] MEDS: CEFAZOLIN 1 GM in DEXTROSE 5%-WATER - 50 ML IVPB SCH (11:57)
--- NOTE | 2016-11-16 16:25 | PN ---
Progress Note, Physician History of Present Illness: Pt seen and examined at bedside. He is awake and alert. He denies chest pain. - Current Medication List Current Medications: Active Medications Albuterol Sulfate (Ventolin Hfa Inhaler -) 2 puff IH BID PRN PRN Reason: SHORTNESS OF BREATH Atorvastatin Calcium (Lipitor -) 80 mg PO HS [facility] Last Admin: 11/15/16 21:52 Dose: 80 mg Calcium Acetate (Phoslo -) 667 mg PO TIDCM [facility] Last Admin: 11/16/16 11:56 Dose: 667 mg Carvedilol (Coreg -) 12.5 mg PO BID [facility] Last Admin: 11/16/16 09:50 Dose: 12.5 mg Cholecalciferol (Vitamin D3 -) 2,000 unit PO DAILY [facility] Last Admin: 11/16/16 09:49 Dose: 2,000 unit Ferrous Sulfate (Feosol -) 325 mg PO DAILY [facility] Last Admin: 11/16/16 09:49 Dose: 325 mg Pantoprazole Sodium 40 mg/ (Sodium Chloride) 100 mls @ 200 mls/hr IVPB DAILY [facility] Last Admin: 11/16/16 09:51 Dose: 200 mls/hr Cefazolin Sodium 1 gm/ (Dextrose) 50 mls @ 100 mls/hr IVPB Q24H [facility] Last Admin: 11/16/16 11:57 Dose: 100 mls/hr Nifedipine (Procardia Xl -) 30 mg PO DAILY [facility] Last Admin: 11/16/16 09:50 Dose: 30 mg Pregabalin (Lyrica -) 50 mg PO TID [facility] Last Admin: 11/16/16 05:57 Dose: 50 mg Torsemide (Demadex -) 80 mg PO DAILY [facility] Last Admin: 11/16/16 09:50 Dose: 80 mg - Objective Vital Signs: Vital Signs Temperature 97.7 F 11/16/16 06:00 Pulse Rate 83 11/16/16 11:37 Respiratory Rate 18 11/16/16 06:00 Blood Pressure 148/76 11/16/16 06:00 O2 Sat by Pulse Oximetry (%) 98 11/16/16 11:37 Constitutional: Yes: Calm Eyes: Yes: Conjunctiva Clear HENT: Yes: Atraumatic Neck: Yes: Supple Cardiovascular: Yes: S1, S2 Respiratory: Yes: CTA Bilaterally Gastrointestinal: Yes: Normal Bowel Sounds, Soft, Abdomen, Obese Genitourinary: Yes: WNL Edema: Yes Edema: LLE: 2+, RLE: 2+ Neurological: Yes: Oriented Psychiatric: Yes: Oriented Labs: CBC, BMP 11/16/16 06:00 11/16/16 06:00 INR, PTT INR 1.33 (0.82-1.09) H 11/13/16 18:05 Problem List - Problems (1) Chronic kidney disease Code(s): N18.9 - CHRONIC KIDNEY DISEASE, UNSPECIFIED Qualifiers: Chronic kidney disease stage: unspecified stage Qualified Code(s): N18.9 - Chronic kidney disease, unspecified (2) Morbid obesity Code(s): E66.01 - MORBID (SEVERE) OBESITY DUE TO EXCESS CALORIES (3) DM type 2, uncontrolled, with renal complications Code(s): E11.29 - TYPE 2 DIABETES MELLITUS W OTH DIABETIC KIDNEY COMPLICATION E11.65 - TYPE 2 DIABETES MELLITUS WITH HYPERGLYCEMIA (4) HTN (hypertension) Code(s): I10 - ESSENTIAL (PRIMARY) HYPERTENSION (5) Lymph edema Code(s): I89.0 - LYMPHEDEMA, NOT ELSEWHERE CLASSIFIED (6) Proteinuria Code(s): R80.9 - PROTEINURIA, UNSPECIFIED Assessment/Plan Current Medications Generic Name Dose Route Start Last Admin Trade Name Freq PRN Reason Stop Dose Admin Albuterol Sulfate 2 puff 11/13/16 22:54 Ventolin Hfa Inhaler - IH BID PRN SHORTNESS OF BREATH Atorvastatin Calcium 80 mg 11/14/16 22:00 11/15/16 21:52 Lipitor - PO 80 mg HS [facility] Administration Calcium Acetate 667 mg 11/13/16 22:45 11/16/16 11:56 Phoslo - PO 667 mg TIDCM [facility] Administration Carvedilol 12.5 mg 11/13/16 22:45 11/16/16 09:50 Coreg - PO 12.5 mg BID [facility] Administration Cholecalciferol 2,000 unit 11/14/16 10:00 11/16/16 09:49 Vitamin D3 - PO 2,000 unit DAILY [facility] Administration Ferrous Sulfate 325 mg 11/14/16 10:00 11/16/16 09:49 Feosol - PO 325 mg DAILY [facility] Administration Pantoprazole Sodium 40 mg/ 100 mls @ 200 mls/hr 11/14/16 10:00 11/16/16 09:51 Sodium Chloride IVPB 200 mls/hr DAILY [facility] Administration Cefazolin Sodium 1 gm/ 50 mls @ 100 mls/hr 11/14/16 11:45 11/16/16 11:57 Dextrose IVPB 100 mls/hr Q24H [facility] Administration Nifedipine 30 mg 11/14/16 10:00 11/16/16 09:50 Procardia Xl - PO 30 mg DAILY [facility] Administration Pregabalin 50 mg 11/13/16 22:45 11/16/16 05:57 Lyrica - PO 50 mg TID [facility] Administration Torsemide 80 mg 11/14/16 10:00 11/16/16 09:50 Demadex - PO 80 mg DAILY [facility] Administration Impression 1. CKD 2. anemia 3. HTN 4. morbid obesity 5. CVA 6. hyperlipidemia 7. proteinuria - nephrotic Plan - transfuse today - will see in office - will likely need to start HD in near future, he wants to hold off for now - abx per ID - cont diuretics - renal diet - will follow Dr Win
--- NOTE | 2016-11-16 17:51 | PN ---
Teaching Attending Note Name of Resident: Raffy Parra ATTENDING PHYSICIAN STATEMENT I saw and evaluated the patient. I reviewed the resident's note and discussed the case with the resident. I agree with the resident's findings and plan as documented. SUBJECTIVE: Patient has no complaints. OBJECTIVE: Vital Signs Period Temp Pulse Resp BP Sys/Leon Pulse Ox Last 24 Hr 97.7 F-98.2 F 73-83 18-18 138-153/67-87 96-99 HEART: S1S2, RRR LUNGS: Clear ABDOMEN: Obese, soft, non-tender, non-distended, normal BS EXTREMITIES: 2+ edema with chronic venous stasis changes Current Medications Generic Name Dose Route Start Last Admin Trade Name Freq PRN Reason Stop Dose Admin Albuterol Sulfate 2 puff 11/13/16 22:54 Ventolin Hfa Inhaler - IH BID PRN SHORTNESS OF BREATH Atorvastatin Calcium 80 mg 11/14/16 22:00 11/15/16 21:52 Lipitor - PO 80 mg HS [facility] Administration Calcium Acetate 667 mg 11/13/16 22:45 11/16/16 17:03 Phoslo - PO 667 mg TIDCM [facility] Administration Carvedilol 12.5 mg 11/13/16 22:45 11/16/16 09:50 Coreg - PO 12.5 mg BID [facility] Administration Cholecalciferol 2,000 unit 11/14/16 10:00 11/16/16 09:49 Vitamin D3 - PO 2,000 unit DAILY [facility] Administration Ferrous Sulfate 325 mg 11/14/16 10:00 11/16/16 09:49 Feosol - PO 325 mg DAILY [facility] Administration Pantoprazole Sodium 40 mg/ 100 mls @ 200 mls/hr 11/14/16 10:00 11/16/16 09:51 Sodium Chloride IVPB 200 mls/hr DAILY [facility] Administration Cefazolin Sodium 1 gm/ 50 mls @ 100 mls/hr 11/14/16 11:45 11/16/16 11:57 Dextrose IVPB 100 mls/hr Q24H [facility] Administration Nifedipine 30 mg 11/14/16 10:00 11/16/16 09:50 Procardia Xl - PO 30 mg DAILY [facility] Administration Pregabalin 50 mg 11/13/16 22:45 11/16/16 15:03 Lyrica - PO 50 mg TID [facility] Administration Torsemide 80 mg 11/14/16 10:00 11/16/16 09:50 Demadex - PO 80 mg DAILY [facility] Administration ASSESSMENT AND PLAN: This is a 56 year old man wtih a history of stage 5 CKD, type 2 DM, HTN, gastric bypass, morbid obesity, osteomyelitis who presented to the ER for anemia. 1. Symptomatic anemia - Transfused 2 units PRBCs with inappropriate response - Transfuse additional 1 unit PRBCs today - No evidence of bleeding - Follow-up with GI as outpatient regarding colonoscopy (history of polyps) - Anemia likely secondary to CKD 2. 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 Left 1st toe ulcer with osteomyelitis - s/p tunneled catheter 11/15 - Complete course of Ancef at infusion center 4. Type 2 DM 5. HTN - Continue Coreg, Procardia XL, Demadex 6. Hyperlipidemia - Continue Lipitor 7. Morbid obesity with BMI 46.7, history of sleeve gastrectomy 8. Eosinophilia - Outpatient follow-up
[2016-11-16 18:25] VITALS: BP 135/77; PULSE 75; TEMP 98.2
[2016-11-17 14:19] LABS: ALPHA 2 MACROGLOBULINS,QN 320 mg/dL (110-276); BILIRUBIN TOTAL 0.3 mg/dL (0.0-1.2); FIBROSIS STAGE F1-F2 (.); GGT= 17 IU/L (0-65); GLUCOSE SERUM 147 mg/dL (65-99); HAPTOGLOBIN= 131 mg/dL (34-200); HEIGHT 80 Inches (.); TRIGLYCERIDES= 52 mg/dL (0-149)
== END 2016-11-16 19:09 | disposition home or self-care (01) | DRG 812 ==
LOC: JER 17:06 → JERBED 21:11 → J7W 11-14 02:12
PROVIDERS: ADMIT Internal Medicine; ATTEND Internal Medicine
PROC: 30233H1 Transfusion of Nonautologous Whole Blood into Peripheral Vein, Percutaneous Approach (ICD-10-PCS; principal; 2016-11-13)
DX: D64.9 Anemia, unspecified (principal); Z68.42 Body mass index [BMI] 45.0-49.9, adult; N17.9 Acute kidney failure, unspecified; M86.672 Other chronic osteomyelitis, left ankle and foot; N18.5 Chronic kidney disease, stage 5; I13.2 Hypertensive heart and chronic kidney disease with heart failure and with stage 5 chronic kidney disease, or end stage renal disease; I50.32 Chronic diastolic (congestive) heart failure; E11.22 Type 2 diabetes mellitus with diabetic chronic kidney disease; I12.9 Hypertensive chronic kidney disease with stage 1 through stage 4 chronic kidney disease, or unspecified chronic kidney disease; D63.1 Anemia in chronic kidney disease; I83.025 Varicose veins of left lower extremity with ulcer other part of foot; J44.9 Chronic obstructive pulmonary disease, unspecified; Z86.73 Personal history of transient ischemic attack (TIA), and cerebral infarction without residual deficits; E78.5 Hyperlipidemia, unspecified; E66.01 Morbid (severe) obesity due to excess calories; Z98.84 Bariatric surgery status; G62.9 Polyneuropathy, unspecified; G47.33 Obstructive sleep apnea (adult) (pediatric); Z86.010 Personal history of colon polyps; D72.1 Eosinophilia
CPT/HCPCS: 36415; 36430; 36558; 71010-TC; 76775-TC; 76856-TC; 77001-TC; 80048; 80053; 82172; 82247; 82272; 82436; 82465; 82570; 82607; 82728; 82746; 82947; 82977; 83010; 83036; 83516; 83540; 83550; 83883; 84133; 84300; 84450; 84460; 84478; 84484; 85025; 85027; 85044; 85610; 85651; 86038; 86140; 86704; 86706; 86708; 86803; 86850; 86900; 86901; 86922; 87340; 93005; 93010; 94660; 97116-GP; 97161-GP; 99284-25; C1751; J1644; P9038; P9058

== ENCOUNTER 2016-11-17 13:49 | Day surgery (SDC) | payer OTHER ==
[2016-11-17] MEDS ORDERED: CEFAZOLIN 1 GM in DEXTROSE 5%-WATER - 50 ML IVPB ONE (14:07)
[2016-11-17] MEDS ORDERED: ceFAZolin SODIUM 1 GM VIAL ONE (14:07)
[2016-11-17 14:24] VITALS: TEMP 97.7
[2016-11-17 14:55] VITALS: BP 121/62; PULSE 76
== END 2016-11-17 14:55 | disposition home or self-care (01) ==
LOC: JINFUSION 13:49 → JASU-ENDO 13:49 → JINFUSION 14:55
PROVIDERS: ATTEND Internal Medicine
DX: M86.672 Other chronic osteomyelitis, left ankle and foot (principal)
CPT/HCPCS: 96365

== ENCOUNTER 2016-11-18 13:40 | Day surgery (SDC) | payer OTHER ==
[2016-11-18] MEDS ORDERED: ceFAZolin SODIUM 1 GM VIAL ONE (14:01)
[2016-11-18 14:25] VITALS: TEMP 97.8
[2016-11-18] MEDS ORDERED: CEFAZOLIN 1 GM in DEXTROSE 5%-WATER - 50 ML IVPB ONE (14:30)
[2016-11-18 15:23] VITALS: BP 166/88; PULSE 80
== END 2016-11-18 15:00 | disposition home or self-care (01) ==
LOC: JINFUSION 13:40
PROVIDERS: ATTEND Internal Medicine
DX: M86.672 Other chronic osteomyelitis, left ankle and foot (principal)
CPT/HCPCS: 96365

== ENCOUNTER 2016-11-19 13:58 | Day surgery (SDC) | payer OTHER ==
[2016-11-19] MEDS ORDERED: DEXTROSE 5%-WATER - 50 ML IVPB ONE (14:31)
[2016-11-19] MEDS ORDERED: ceFAZolin SODIUM 1 GM VIAL ONE (14:31)
[2016-11-19 14:38] VITALS: TEMP 98.7; BMI 46.7
[2016-11-19] MEDS ORDERED: CEFAZOLIN 1 GM in DEXTROSE 5%-WATER - 50 ML IVPB ONE (15:00)
[2016-11-19 15:40] VITALS: BP 133/73; PULSE 80
== END 2016-11-19 15:52 | disposition home or self-care (01) ==
LOC: JINFUSION 13:58 → J7W 13:58 → JINFUSION 15:52
PROVIDERS: ATTEND Internal Medicine
DX: M86.672 Other chronic osteomyelitis, left ankle and foot (principal)
CPT/HCPCS: 96365

== ENCOUNTER 2016-11-20 15:21 | Day surgery (SDC) | payer OTHER ==
[2016-11-20] MEDS ORDERED: ceFAZolin SODIUM 1 GM VIAL ONE (16:09)
[2016-11-20] MEDS ORDERED: DEXTROSE 5%-WATER - 50 ML IVPB ONE (16:09)
[2016-11-20] MEDS ORDERED: CEFAZOLIN 1 GM in DEXTROSE 5%-WATER - 50 ML IVPB ONE (16:15)
[2016-11-20 16:23] VITALS: TEMP 98.6
[2016-11-20 17:03] VITALS: BP 109/47; PULSE 81
== END 2016-11-20 17:27 | disposition home or self-care (01) ==
LOC: JINFUSION 15:21 → J7W 15:22 → JINFUSION 17:27
PROVIDERS: ATTEND Internal Medicine
DX: M86.672 Other chronic osteomyelitis, left ankle and foot (principal)
CPT/HCPCS: 96365

== ENCOUNTER 2016-11-21 14:53 | Day surgery (SDC) | payer OTHER ==
[2016-11-21] MEDS ORDERED: ceFAZolin SODIUM 1 GM VIAL ONE (15:13)
[2016-11-21 15:27] LABS: MCH 28.7 pg (25.7-33.7); MCHC 33.2 g/dl (32.0-35.9); MEAN CELL VOLUME 86.3 fl (80-96); PLATELET COUNT 212 K/MM3 (134-434); RDW 14.6 % (11.9-15.9); WHITE BLOOD COUNT 7.5 K/mm3 (4.0-10.0)
[2016-11-21 15:30] VITALS: BP 149/66; PULSE 88; TEMP 98.7
[2016-11-21 15:43] LABS: ANION GAP 12 (8-16); C-REACTIVE PROTEIN 1.1 MG/DL (0.00-0.3); CALCIUM 8.6 mg/dL (8.5-10.1); CO2 21 mmol/L (21-32); CREATININE 6.6 mg/dL (0.7-1.3); GLUCOSE,RANDOM 96 mg/dL (74-106)
[2016-11-21] MEDS ORDERED: CEFAZOLIN 1 GM in DEXTROSE 5%-WATER - 50 ML IVPB ONE (15:45)
[2016-11-21 17:24] LABS: ERYTHROCYTE SEDIMENTATION RATE 86 mm/hr (0-20)
== END 2016-11-21 16:10 | disposition home or self-care (01) ==
LOC: JINFUSION 14:53
PROVIDERS: ATTEND Internal Medicine
DX: M86.672 Other chronic osteomyelitis, left ankle and foot (principal)
CPT/HCPCS: 36415; 80048; 85027; 85651; 86140; 96365

== ENCOUNTER 2016-11-22 13:14 | Day surgery (SDC) | payer OTHER ==
[2016-11-22] MEDS ORDERED: ceFAZolin SODIUM 1 GM VIAL ONE ×2 (13:41→14:00)
[2016-11-22] MEDS ORDERED: CEFAZOLIN 1 GM in DEXTROSE 5%-WATER - 50 ML IVPB ONE (14:30)
[2016-11-22 16:36] VITALS: BP 130/72; PULSE 84; TEMP 97
== END 2016-11-22 14:45 | disposition home or self-care (01) ==
LOC: JINFUSION 13:14
PROVIDERS: ATTEND Internal Medicine
DX: M86.672 Other chronic osteomyelitis, left ankle and foot (principal)
CPT/HCPCS: 96365

== ENCOUNTER 2016-11-23 14:41 | Day surgery (SDC) | payer OTHER ==
[~2016-11-23 14:41] MED LIST: CEFAZOLIN 1 GM in DEXTROSE 5%-WATER - 50 ML IVPB ONE; CEFAZOLIN 1 GM in DEXTROSE 5%-WATER - 50 ML IVPB SCH
[2016-11-23] MEDS ORDERED: ceFAZolin SODIUM 1 GM VIAL ONE (14:58)
[2016-11-23 15:22] VITALS: TEMP 98.7
[2016-11-23 15:33] VITALS: BP 124/66; PULSE 68
[2016-11-26] MEDS ORDERED: CEFAZOLIN 500 MG in DEXTROSE 5%-WATER - 50 ML IVPB ONE (16:15)
== END 2016-11-23 15:33 | disposition home or self-care (01) ==
LOC: JINFUSION 14:41
PROVIDERS: ATTEND Internal Medicine
DX: M86.672 Other chronic osteomyelitis, left ankle and foot (principal)
CPT/HCPCS: 11042; 96365

== ENCOUNTER 2016-11-24 14:24 | Day surgery (SDC) | payer OTHER ==
[2016-11-24] MEDS ORDERED: ceFAZolin SODIUM 1 GM VIAL ONE (14:44)
[2016-11-24 15:36] VITALS: BP 130/66; PULSE 63; TEMP 98.5
== END 2016-11-24 15:25 | disposition home or self-care (01) ==
LOC: JINFUSION 14:24
PROVIDERS: ATTEND Internal Medicine
DX: M86.672 Other chronic osteomyelitis, left ankle and foot (principal)
CPT/HCPCS: 96365

== ENCOUNTER 2016-11-25 14:48 | Day surgery (SDC) | payer OTHER ==
[2016-11-25] MEDS ORDERED: ceFAZolin SODIUM 1 GM VIAL ONE (15:07)
[2016-11-25] MEDS ORDERED: CEFAZOLIN 500 MG in DEXTROSE 5%-WATER - 50 ML IVPB ONE (15:15)
[2016-11-25 15:19] VITALS: TEMP 97.9
[2016-11-25 15:40] VITALS: BP 126/79; PULSE 59
== END 2016-11-25 15:40 | disposition home or self-care (01) ==
LOC: JINFUSION 14:48
PROVIDERS: ATTEND Internal Medicine
DX: M86.672 Other chronic osteomyelitis, left ankle and foot (principal)
CPT/HCPCS: 96367

== ENCOUNTER 2016-11-26 15:15 | Day surgery (SDC) | payer OTHER ==
[2016-11-26 16:32] VITALS: TEMP 98.5
[2016-11-26] MEDS ORDERED: CEFAZOLIN 500 MG in DEXTROSE 5%-WATER - 50 ML IVPB ONE (16:45)
[2016-11-26 18:04] VITALS: BP 120/86; PULSE 86
== END 2016-11-26 18:52 | disposition home or self-care (01) ==
LOC: JINFUSION 15:15 → J7W 15:16 → JINFUSION 18:52
PROVIDERS: ATTEND Internal Medicine
DX: M86.672 Other chronic osteomyelitis, left ankle and foot (principal)
CPT/HCPCS: 96365

== ENCOUNTER 2016-11-29 13:11 | Inpatient (IN) | payer OTHER ==
--- NOTE | 2016-11-29 14:26 | PDOC ---
Attending Attestation - Resident Resident Name: Federico Lorenzo - ED Attending Attestation I have performed the following: I have examined & evaluated the patient, The case was reviewed & discussed with the resident, I agree w/resident's findings & plan, Exceptions are as noted - HPI HPI: 11/29/16 14:25 Sent by Nephrology, Creat now up to 7, generalized weakness and fatigue as well - Physicial Exam PE: 11/29/16 14:26 VSS/ No Distress - Medical Decision Making 11/29/16 14:[address] Lorenzo's assessment and plan
--- NOTE | 2016-11-29 14:29 | PDOC ---
History of Present Illness - General Chief Complaint: Weakness Stated Complaint: PCP SENT FOR ADMIN Time Seen by Provider: 11/29/16 14:21 - History of Present Illness Initial Comments: 11/29/16 14:32 Mr. Guerrero is a 56 yo male with a significant past medical history of DM, stroke , gastric bypass, CKD who presents to the emergency department on advice of Dr. Win after creatinine was found to be above 7 today. Scheduled for transfusion in the morning. The patient denies chest pain, shortness of breath, headache and dizziness. Denies fever, chills, nausea, vomit, diarrhea and constipation. Denies dysuria, frequency, urgency and hematuria. Allergies: Shellfish, Sulfamethoxazole, TMP/SMP Past History - Past Medical History Allergies/Adverse Reactions: Allergies Allergy/AdvReac Type Severity Reaction Status Date / Time fish derived Allergy Severe Hives Verified 11/29/16 13:48 Shellfish Allergy Severe Verified 11/29/16 13:48 sulfamethoxazole Allergy Severe Swelling Verified 11/29/16 13:48 [From Bactrim DS] trimethoprim Allergy Severe Swelling Verified 11/29/16 13:48 [From Bactrim DS] Home Medications: Ambulatory Orders Omeprazole [Prilosec (RX)] 20 mg PO PRN PRN 08/13/14 Nifedipine ER [Procardia XL -] 30 mg PO DAILY #30 tab.er.24 08/13/15 Atorvastatin Ca [Lipitor] 80 mg PO HS 05/24/16 Calcium Acetate [Phoslo -] 667 mg PO TIDCM 05/24/16 Carvedilol 12.5 mg PO BID 05/24/16 Pregabalin [Lyrica -] 50 mg PO TID 05/24/16 Torsemide 80 mg PO DAILY 05/24/16 Ferrous Sulfate [Feosol] 1 tab PO DAILY 08/02/16 Albuterol Sulfate [Proair Respiclick] 90 mcg IH BID 11/13/16 Cholecalciferol (Vitamin D3) [Vitamin D3] 2,000 unit PO DAILY 11/13/16 Aspirin [ASA -] 81 mg PO DAILY #30 tab.chew 11/15/16 Anemia: Yes Asthma: Yes Cancer: No Cardiac Disorders: No ([place]) CVA: Yes COPD: Yes CHF: No Dementia: No Diabetes: Yes GI Disorders: No Disorders: No HTN: Yes Hypercholesterolemia: Yes Liver Disease: No Seizures: No Thyroid Disease: No - Surgical History Abdominal Surgery: Yes (gastric bypass 05/05/14) Appendectomy: No Cardiac Surgery: No Cholecystectomy: No Lung Surgery: No Neurologic Surgery: No Orthopedic Surgery: No - Immunization History Immunization Up to Date: Yes - Suicide/Smoking/Psychosocial Hx Smoking Status: No Smoking History: Never smoked Have you smoked in the past 12 months: No Number of Cigarettes Smoked Daily: 0 Information on smoking cessation initiated: No Hx Alcohol Use: No Drug/Substance Use Hx: No Substance Use Type: None Hx Substance Use Treatment: No Review of Systems - Review of Systems Comments:: 11/29/16 14:44 GENERAL/CONSTITUTIONAL: No fever or chills. No weakness. HEAD, EYES, EARS, NOSE AND THROAT: No change in vision. No ear pain or discharge. No sore throat. CARDIOVASCULAR: No chest pain or shortness of breath RESPIRATORY: No cough, wheezing, or hemoptysis. GASTROINTESTINAL: No nausea, vomiting, diarrhea or constipation. GENITOURINARY: No dysuria, frequency, or change in urination. MUSCULOSKELETAL: No joint or muscle swelling or pain. No neck or back pain. SKIN: No rash NEUROLOGIC: No headache, vertigo, loss of consciousness, or change in strength/ sensation. ENDOCRINE: No increased thirst. No abnormal weight change HEMATOLOGIC/LYMPHATIC: No anemia, easy bleeding, or history of blood clots. ALLERGIC/IMMUNOLOGIC: No hives or skin allergy. *Physical Exam - Vital Signs Last Vital Signs Temp Pulse Resp BP Pulse Ox 98 F 60 16 126/66 95 11/29/16 13:49 11/29/16 13:49 11/29/16 13:49 11/29/16 13:49 11/29/16 13:49 - Physical Exam Comments: 11/29/16 14:44 GENERAL: Awake, alert, and fully oriented, in no acute distress HEAD: No signs of trauma, normocephalic, atraumatic EYES: PERRLA, EOMI, sclera anicteric, conjunctiva clear ENT: Auricles normal inspection, hearing grossly normal, nares patent, oropharynx clear without exudates. Moist mucosa NECK: Normal ROM, supple, no lymphadenopathy, JVD, or masses LUNGS: No distress, speaks full sentences, clear to auscultation bilaterally HEART: Regular rate and rhythm, normal S1 and S2, no murmurs, rubs or gallops, peripheral pulses normal and equal bilaterally. ABDOMEN: Soft, nontender, normoactive bowel sounds. No guarding, no rebound. No masses EXTREMITIES: Normal inspection, Normal range of motion, no edema. No clubbing or cyanosis. NEUROLOGICAL: Cranial nerves II through XII grossly intact. Normal speech, normal gait, no focal sensorimotor deficits SKIN: Warm, Dry, normal turgor, no rashes or lesions noted. ED Treatment Course - LABORATORY CBC & Chemistry Diagram: 11/29/16 14:50 11/29/16 14:50 Medical Decision Making - Medical Decision Making 11/29/16 16:31 Patient in no acute distress but prevented for extreme creatinine elevation. Scheduled to dialyze in the AM. *DC/Admit/Observation/Transfer Diagnosis at time of Disposition: Creatinine elevation - Discharge Dispostion Admit: Yes
[2016-11-29 15:13] LABS: BASOPHIL 2.7 % (0-2.0); EOSINOPHIL 15.8 % (0-4.5); MCH 28.4 pg (25.7-33.7); MEAN CELL VOLUME 85.8 fl (80-96); MEAN PLT VOLUME 9.9 fl (7.5-11.1); NEUTROPHILS 61.4 % (42.8-82.8); PLATELET COUNT 246 K/MM3 (134-434); RDW 14.4 % (11.9-15.9); WHITE BLOOD COUNT 7.9 K/mm3 (4.0-10.0)
[2016-11-29 15:41] LABS: ALBUMIN 2.9 g/dl (3.4-5.0); ANION GAP 12 (8-16); CALCIUM 8.7 mg/dL (8.5-10.1); CO2 23 mmol/L (21-32); GLUCOSE,RANDOM 109 mg/dL (74-106); SGOT/AST 34 U/L (15-37); SGPT/ALT 13 U/L (12-78)
[2016-11-29 15:48] LABS: ALK PHOS 82 U/L (45-117); BILIRUBIN,TOTAL 0.4 mg/dL (0.2-1.0); TOT PROT 7.2 g/dl (6.4-8.2)
[2016-11-29 16:10] LABS: CREATININE 7.9 mg/dL (0.7-1.3)
--- NOTE | 2016-11-29 17:30 | HP ---
CHIEF COMPLAINT: was send by PCP for elevated Cr of 7.6 PCP: Abel Aguayo MD HISTORY OF PRESENT ILLNESS: Mr. Guerrero is a 56 yo male with a significant past medical history of DM, stroke , gastric bypass, CKD who presents to the emergency department on advice of Dr. Win after creatinine was found to be above 7 today. Scheduled for transfusion in the morning. The patient denies chest pain, shortness of breath, headache and dizziness. Denies fever, chills, nausea, vomit, diarrhea and constipation. Denies dysuria, frequency, urgency and hematuria. states he does not male urine ER course was notable for: (1)cefazolin 1 gm IVBP (2) EKG: Sinus willy with 1 st degree AV block, anterior infarct age undetermined. Recent Travel:None PAST MEDICAL HISTORY: DM, Stroke, gastric bypass PAST SURGICAL HISTORY: Gastric bypass Social History: Smoking:denies Alcohol:denies Drugs: denies Family History: non contributory Allergies fish derived Allergy (Severe, Verified 11/29/16 13:48) Hives Shellfish Allergy (Severe, Verified 11/29/16 13:48) throat swelling sulfamethoxazole [From Bactrim DS] Allergy (Severe, Verified 11/29/16 13:48) Swelling trimethoprim [From Bactrim DS] Allergy (Severe, Verified 11/29/16 13:48) Swelling HOME MEDICATIONS: Home Medications Medication Instructions Recorded Omeprazole [Prilosec (RX)] 20 mg PO PRN PRN 08/13/14 Nifedipine ER [Procardia XL -] 30 mg PO DAILY #30 tab.er.24 08/13/15 Atorvastatin Ca [Lipitor] 80 mg PO HS 05/24/16 Calcium Acetate [Phoslo -] 667 mg PO TIDCM 05/24/16 Carvedilol 12.5 mg PO BID 05/24/16 Pregabalin [Lyrica -] 50 mg PO TID 05/24/16 Torsemide 80 mg PO DAILY 05/24/16 Ferrous Sulfate [Feosol] 1 tab PO DAILY 08/02/16 Albuterol Sulfate [Proair 90 mcg IH BID 11/13/16 Respiclick] Cholecalciferol (Vitamin D3) 2,000 unit PO DAILY 11/13/16 [Vitamin D3] Aspirin [ASA -] 81 mg PO DAILY #30 tab.chew 11/15/16 REVIEW OF SYSTEMS CONSTITUTIONAL: Absent: fever, chills, diaphoresis, generalized weakness, malaise, loss of appetite, weight change HEENT: Absent: rhinorrhea, nasal congestion, throat pain, throat swelling, difficulty swallowing, mouth swelling, ear pain, eye pain, visual changes CARDIOVASCULAR: Absent: chest pain, syncope, palpitations, irregular heart rate, lightheadedness , peripheral edema RESPIRATORY: Absent: cough, shortness of breath, dyspnea with exertion, orthopnea, wheezing, stridor, hemoptysis GASTROINTESTINAL: Absent: abdominal pain, abdominal distension, nausea, vomiting, diarrhea, constipation, melena, hematochezia GENITOURINARY: Absent: dysuria, frequency, urgency, hesitancy, hematuria, flank pain, genital pain MUSCULOSKELETAL: Absent: myalgia, arthralgia, joint swelling, back pain, neck pain SKIN: Absent: rash, itching, pallor HEMATOLOGIC/IMMUNOLOGIC: Absent: easy bleeding, easy bruising, lymphadenopathy, frequent infections ENDOCRINE: Absent: unexplained weight gain, unexplained weight loss, heat intolerance, cold intolerance NEUROLOGIC: Absent: headache, focal weakness or paresthesias, dizziness, unsteady gait, seizure, mental status changes, bladder or bowel incontinence PSYCHIATRIC: Absent: anxiety, depression, suicidal or homicidal ideation, hallucinations. PHYSICAL EXAMINATION Vital Signs - 24 hr 11/29/16 11/29/16 13:49 17:17 Temperature 98 F 97.7 F Pulse Rate 60 Pulse Rate [ 56 L Apical] Respiratory 16 16 Rate Blood Pressure 126/66 Blood Pressure 116/53 [Right Arm] O2 Sat by Pulse 95 95 Oximetry (%) GENERAL: The patient is awake, alert, and fully oriented, in no acute distress. HEAD: Normal with no signs of trauma. EYES: conjunctiva clear. ENT: moist mucous membranes. LUNGS: Breath sounds equal, clear to auscultation bilaterally, no wheezes, no crackles, no accessory muscle use. HEART: Regular rate and rhythm, S1, S2 without murmur, rub or gallop. ABDOMEN: Soft, nontender, nondistended, normoactive bowel sounds, no guarding, no rebound. EXTREMITIES: warm, well-perfused, no edema. NEUROLOGICAL: Normal speech, gait not observed. SKIN: Warm, dry, no rashes or lesions noted, peripheral vascular disease. Laboratory Results - last 24 hr 11/29/16 11/29/16 11/29/16 14:50 14:50 14:50 WBC 7.9 RBC 2.91 L Hgb 8.2 L Hct 24.9 L MCV 85.8 MCH 28.4 MCHC 33.0 RDW 14.4 Plt Count 246 MPV 9.9 Neutrophils % 61.4 Lymphocytes % 11.6 D Monocytes % 8.5 Eosinophils % 15.8 H Basophils % 2.7 H Sodium 141 Potassium 3.9 Chloride 106 Carbon Dioxide 23 Anion Gap 12 BUN 83 H Creatinine 7.9 H* Creat Clearance w eGFR 7.12 Random Glucose 109 H Calcium 8.7 Total Bilirubin 0.4 AST 34 ALT 13 D Alkaline Phosphatase 82 D Total Protein 7.2 Albumin 2.9 L Blood Type A POSITIVE Antibody Screen Negative CBC, BMP 11/29/16 14:50 11/29/16 14:50 ASSESSMENT/PLAN: 56 M with DM, Stroke, asthma, gastric bypass, CKD, and chronic osteomyelitis who presents from nephrology clinic for increased creatnine # CKD stage 5/ESRD - BUN/Cr 83/7.9 - Nephro consult: - will have HD in am - Monitor electrolytes -CBC, CMP in AM # Chronic Osteomyelitis - Ancef- continue 1g IVBP daily - FU with Podiatry/Wound care # Normocytic anemia - Most likely from CKD - Chk. EPO - Fe studies/B12/ Folic a # Asthma - C/W home meds #DM - Not on any home meds - Chk. A1C - FS/RAISS # Hx of Peripheral Neuropathy - Continue Lyrica #Morbid Obesity -s/p gastric bypass - patient education # CVA - C/W Home meds # Dvt Ppx - Mod Risk - Heparin 5000 SQ Q8hr # Dispo -admit to [facility] Visit type - Emergency Visit Emergency Visit: Yes ED Registration Date: 11/29/16 Care time: The patient presented to the Emergency Department on the above date and was hospitalized for further evaluation of their emergent condition. - New Patient This patient is new to me today: No - Critical Care Critical Care patient: No
--- NOTE | 2016-11-29 17:32 | HP ---
CHIEF COMPLAINT: elevated Cr, sent by pcp PCP: HISTORY OF PRESENT ILLNESS: This is a 56 year old male with CKD stage 5, DM, CAD, anemia, who was sent over by PCP for elevation in serum creatinine >7 on routine labs. Patient was recently admitted for osteomyelitis of the right big toe and has a picc line for IV antibiotics, Ancef, for the past two weeks. He has a fistula that has been cleared by vascular to use for HD, as per nephrology. Mr. Guerrero denies any associated symptoms. He denies dizziness, headache, sob, chest pain, abdominal pain. ER course was notable for: (1)hemoglobin 8.2 (2)Cr 7.9 Recent Travel: no PAST MEDICAL HISTORY: CKD, HTN, CVA and DM PAST SURGICAL HISTORY: right big toe debridement, gastric bypass, right arm fistula placement Social History: Smoking:no Alcohol:quit 6 mo ago Drugs: no Family History: Allergies fish derived Allergy (Severe, Verified 11/29/16 13:48) Hives Shellfish Allergy (Severe, Verified 11/29/16 13:48) throat swelling sulfamethoxazole [From Bactrim DS] Allergy (Severe, Verified 11/29/16 13:48) Swelling trimethoprim [From Bactrim DS] Allergy (Severe, Verified 11/29/16 13:48) Swelling HOME MEDICATIONS: Home Medications Medication Instructions Recorded Omeprazole [Prilosec (RX)] 20 mg PO PRN PRN 08/13/14 Nifedipine ER [Procardia XL -] 30 mg PO DAILY #30 tab.er.24 08/13/15 Atorvastatin Ca [Lipitor] 80 mg PO HS 05/24/16 Calcium Acetate [Phoslo -] 667 mg PO TIDCM 05/24/16 Carvedilol 12.5 mg PO BID 05/24/16 Pregabalin [Lyrica -] 50 mg PO TID 05/24/16 Torsemide 80 mg PO DAILY 05/24/16 Ferrous Sulfate [Feosol] 1 tab PO DAILY 08/02/16 Albuterol Sulfate [Proair 90 mcg IH BID 11/13/16 Respiclick] Cholecalciferol (Vitamin D3) 2,000 unit PO DAILY 11/13/16 [Vitamin D3] Aspirin [ASA -] 81 mg PO DAILY #30 tab.chew 11/15/16 REVIEW OF SYSTEMS CONSTITUTIONAL: Absent: fever, chills, diaphoresis, generalized weakness, malaise, loss of appetite, weight change HEENT: Absent: rhinorrhea, nasal congestion, throat pain, throat swelling, difficulty swallowing, mouth swelling, ear pain, eye pain, visual changes CARDIOVASCULAR: Absent: chest pain, syncope, palpitations, irregular heart rate, lightheadedness , peripheral edema RESPIRATORY: Absent: cough, shortness of breath, dyspnea with exertion, orthopnea, wheezing, stridor, hemoptysis GASTROINTESTINAL: Absent: abdominal pain, abdominal distension, nausea, vomiting, diarrhea, constipation, melena, hematochezia GENITOURINARY: Absent: dysuria, frequency, urgency, hesitancy, hematuria, flank pain, genital pain MUSCULOSKELETAL: Absent: myalgia, arthralgia, joint swelling, back pain, neck pain SKIN: Absent: rash, itching, pallor HEMATOLOGIC/IMMUNOLOGIC: Absent: easy bleeding, easy bruising, lymphadenopathy, frequent infections ENDOCRINE: Absent: unexplained weight gain, unexplained weight loss, heat intolerance, cold intolerance NEUROLOGIC: Absent: headache, focal weakness or paresthesias, dizziness, unsteady gait, seizure, mental status changes, bladder or bowel incontinence PSYCHIATRIC: Absent: anxiety, depression, suicidal or homicidal ideation, hallucinations. PHYSICAL EXAMINATION Vital Signs - 24 hr 11/29/16 11/29/16 13:49 17:17 Temperature 98 F 97.7 F Pulse Rate 60 Pulse Rate [ 56 L Apical] Respiratory 16 16 Rate Blood Pressure 126/66 Blood Pressure 116/53 [Right Arm] O2 Sat by Pulse 95 95 Oximetry (%) GENERAL: obese, Awake, alert, and fully oriented, in no acute distress. HEAD: Normal with no signs of trauma. LUNGS: decreased breath sounds equal, clear to auscultation bilaterally. No wheezes, and no crackles. No accessory muscle use. HEART: Regular rate and rhythm, normal S1 and S2 without murmur, rub or gallop. ABDOMEN: obese, Soft, nontender, not distended, normoactive bowel sounds, no guarding, no rebound, no masses. No hepatomegaly or splenomegaly. MUSCULOSKELETAL: Normal range of motion at all joints. No bony deformities or tenderness. No CVA tenderness. UPPER EXTREMITIES: 2+ pulses, warm, well-perfused. No cyanosis. No clubbing. No peripheral edema. LOWER EXTREMITIES: 2+ pulses, warm, well-perfused. No calf tenderness. No peripheral edema. Right big toe healed ucer, right second toe small 1x1cm open ulcer, no surrounding erythema or edema NEUROLOGICAL: Cranial nerves II-XII intact. Normal speech. PSYCHIATRIC: Cooperative. Good eye contact. Appropriate mood and affect. SKIN: Warm, dry, normal turgor, no rashes or lesions noted, normal capillary refill. Bilateral macular papular rash of upper extremities Laboratory Results - last 24 hr 11/29/16 11/29/16 11/29/16 14:50 14:50 14:50 WBC 7.9 RBC 2.91 L Hgb 8.2 L Hct 24.9 L MCV 85.8 MCH 28.4 MCHC 33.0 RDW 14.4 Plt Count 246 MPV 9.9 Neutrophils % 61.4 Lymphocytes % 11.6 D Monocytes % 8.5 Eosinophils % 15.8 H Basophils % 2.7 H Sodium 141 Potassium 3.9 Chloride 106 Carbon Dioxide 23 Anion Gap 12 BUN 83 H Creatinine 7.9 H* Creat Clearance w eGFR 7.12 Random Glucose 109 H Calcium 8.7 Total Bilirubin 0.4 AST 34 ALT 13 D Alkaline Phosphatase 82 D Total Protein 7.2 Albumin 2.9 L Blood Type A POSITIVE Antibody Screen Negative ASSESSMENT/PLAN: 56 year old male with a past medical history of DM, osteomyelitis, CKD stage 5 was sent over by primary due to elevated creatinine. Fistula is formed, will get HD in am. #elevated creatinine, CKD; -will start dialysis in am -set up dialysis center -nephrology consult #osteomyelitis of the right big toe/ right second toe ulcer -cont IV ancef 1mg qd for 4 weeks -podiatry consult , wound care #DM: -insulin SS -BGM #anemia possibly secondary to CKD -check epo -iron studies, folic acid, b12 -had GI work up last admission for anemia;and was transfused 2U PRBC without adequate response; was recommend he had colonoscopy #asthma: cont home meds #hypertension: -cont home meds #eosinophilia : -was noted on previous admission #rash bilateral upper extremity -this has been chronic -he has seen a pst supervisor for which he has been givin creams and was said it could be due to his CKD dvt ppl Visit type - Emergency Visit Emergency Visit: Yes ED Registration Date: 11/29/16 Care time: The patient presented to the Emergency Department on the above date and was hospitalized for further evaluation of their emergent condition. - New Patient This patient is new to me today: Yes Date on this admission: 11/29/16 - Critical Care Critical Care patient: No
[2016-11-29] MEDS ORDERED: CEFAZOLIN (PRE-DOCKED) 1 GM in DEXTROSE 5%-WATER - 50 ML IVPB ONE (17:39)
--- NOTE | 2016-11-29 17:44 | CONSULT ---
Consult Consult Specialty:: Nephrology Reason for Consultation:: CKD 5 - History of Present Illness Chief Complaint: I sent pt in for HD History of Present Illness: Pt is a 56 year old male with pmhx of CKD, HTN, CVA and DM who I sent in from the community to start HD. His renal function has been worsening. He complains of fatigue and he has had some loss of appetite. He denies dysuria. He has a fistula that is ready to use. He denies chest pain or shortness of breath. 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 Cardio/Vascular: Yes: HTN, Hyperlipdemia Pulmonary: Yes: Sleep Apnea Gastrointestinal: Yes: GERD, Other (obesity) Renal/: Yes: Renal Failure, Other (ckd) Endocrine: Yes: Diabetes Mellitus - Alcohol/Substance Use Hx Alcohol Use: No - Smoking History Smoking history: Never smoked Have you smoked in the past 12 months: No Aproximately how many cigarettes per day: 0 - Social History ADL: Independent History of Recent Travel: No Home Medications - Allergies Allergies/Adverse Reactions: Allergies Allergy/AdvReac Type Severity Reaction Status Date / Time fish derived Allergy Severe Hives Verified 11/29/16 13:48 Shellfish Allergy Severe Verified 11/29/16 13:48 sulfamethoxazole Allergy Severe Swelling Verified 11/29/16 13:48 [From Bactrim DS] trimethoprim Allergy Severe Swelling Verified 11/29/16 13:48 [From Bactrim DS] - Home Medications Home Medications: Ambulatory Orders Omeprazole [Prilosec (RX)] 20 mg PO PRN PRN 08/13/14 Nifedipine ER [Procardia XL -] 30 mg PO DAILY #30 tab.er.24 08/13/15 Atorvastatin Ca [Lipitor] 80 mg PO HS 05/24/16 Calcium Acetate [Phoslo -] 667 mg PO TIDCM 05/24/16 Carvedilol 12.5 mg PO BID 05/24/16 Pregabalin [Lyrica -] 50 mg PO TID 05/24/16 Torsemide 80 mg PO DAILY 05/24/16 Ferrous Sulfate [Feosol] 1 tab PO DAILY 08/02/16 Albuterol Sulfate [Proair Respiclick] 90 mcg IH BID 11/13/16 Cholecalciferol (Vitamin D3) [Vitamin D3] 2,000 unit PO DAILY 11/13/16 Aspirin [ASA -] 81 mg PO DAILY #30 tab.chew 11/15/16 Family Disease History - Family Disease History Family History: Denies Review of Systems - Review of Systems Constitutional: reports: Malaise. denies: Chills, Fever Eyes: reports: No Symptoms HENT: reports: No Symptoms Neck: reports: No Symptoms Cardiovascular: reports: No Symptoms Respiratory: reports: No Symptoms Gastrointestinal: reports: No Symptoms Genitourinary: reports: No Symptoms Neurological: reports: No Symptoms Physical Exam Vital Signs: Vital Signs Temperature 97.7 F 11/29/16 17:17 Pulse Rate 56 L 11/29/16 17:17 Respiratory Rate 16 11/29/16 17:17 Blood Pressure 116/53 11/29/16 17:17 O2 Sat by Pulse Oximetry (%) 95 11/29/16 17:17 Constitutional: Yes: Calm Eyes: Yes: Conjunctiva Clear HENT: Yes: Atraumatic Neck: Yes: Supple Cardiovascular: Yes: S1, S2 Respiratory: Yes: CTA Bilaterally Gastrointestinal: Yes: Normal Bowel Sounds, Soft, Abdomen, Obese Renal/: Yes: WNL Extremities: Yes: Other (lymphedema) Edema: Yes Edema: LLE: 2+, RLE: 2+ Neurological: Yes: Oriented Psychiatric: Yes: Oriented Labs: CBC, BMP 11/29/16 14:50 11/29/16 14:50 Laboratory Tests 11/29/16 11/29/16 14:50 14:50 WBC 7.9 Hgb 8.2 L Plt Count 246 Sodium 141 Potassium 3.9 Chloride 106 Carbon Dioxide 23 Anion Gap 12 BUN 83 H Creatinine 7.9 H* Laboratory Tests 08/14/15 11/13/16 11/14/16 05:40 18:05 06:30 Creatinine 2.3 H 5.8 H D 5.7 H 11/15/16 11/16/16 11/21/16 06:00 06:00 15:08 Creatinine 5.9 H 6.0 H 6.6 H 11/28/16 11/29/16 15:45 14:50 Creatinine 7.8 H* 7.9 H* Problem List - Problems (1) Anemia Code(s): D64.9 - ANEMIA, UNSPECIFIED Qualifiers: Anemia type: other cause Other causes of anemia: other cause, not classified Qualified Code(s): D64.89 - Other specified anemias (2) Chronic kidney disease Code(s): N18.9 - CHRONIC KIDNEY DISEASE, UNSPECIFIED Qualifiers: Chronic kidney disease stage: unspecified stage Qualified Code(s): N18.9 - Chronic kidney disease, unspecified (3) HTN (hypertension) Code(s): I10 - ESSENTIAL (PRIMARY) HYPERTENSION Assessment/Plan Current Medications Generic Name Dose Route Start Last Admin Trade Name Freq PRN Reason Stop Dose Admin Cefazolin Sodium 1 gm/ 100 mls @ 100 mls/hr 11/29/16 17:39 Dextrose IVPB 11/29/16 18:38 ONCE ONE Impression 1. CKD 5/ ESRD 2. anemia 3. HTN 4. morbid obesity 5. CVA 6. hyperlipidemia 7. proteinuria - nephrotic Plan - will start HD in am - called vascular and fistula has been cleared to use - will start first HD session in am - ancef 1 gram today - wound care to legs - will need placement for HD, please sent papers to [facility] in [place]
[2016-11-29] MEDS ORDERED: CEFAZOLIN (PRE-DOCKED) 50 ML IVPB ONE (18:12)
--- NOTE | 2016-11-29 19:28 | PN ---
Teaching Attending Note Name of Resident: Raffy Parra ATTENDING PHYSICIAN STATEMENT I saw and evaluated the patient. I reviewed the resident's note and discussed the case with the resident. I agree with the resident's findings and plan as documented. SUBJECTIVE: 56 YO M with pmhx of DM, Stroke, gastric bypass, CKD who presents after seeing Dr. Win for a CR of above 7. Denies any shortness of breath, chest pain, or pressire. No dysuria. States he does make urine. OBJECTIVE: Physical: VS: Vital Signs Period Temp Pulse Resp BP Sys/Leon Pulse Ox Last 24 Hr 97.7 F-98 F 56-60 16-16 116-126/53-66 95-95 GEN: NAD, Resting in bed HEENT: NCAT, PERRL, throat without erythema or exudates CARD: RRR S1, S2 RESP: Midly decreased breath sounds at bases ABD: BSx4, NTD to palpation EXT: - C/C/E CBCD WBC 7.9 K/mm3 (4.0-10.0) 11/29/16 14:50 RBC 2.91 M/mm3 (4.00-5.60) L 11/29/16 14:50 Hgb 8.2 GM/dL (11.7-16.9) L 11/29/16 14:50 Hct 24.9 % (35.4-49) L 11/29/16 14:50 MCV 85.8 fl (80-96) 11/29/16 14:50 MCHC 33.0 g/dl (32.0-35.9) 11/29/16 14:50 RDW 14.4 % (11.9-15.9) 11/29/16 14:50 Plt Count 246 K/MM3 (134-434) 11/29/16 14:50 MPV 9.9 fl (7.5-11.1) 11/29/16 14:50 CMP Sodium 141 mmol/L (136-145) 11/29/16 14:50 Potassium 3.9 mmol/L (3.5-5.1) 11/29/16 14:50 Chloride 106 mmol/L (98-107) 11/29/16 14:50 Carbon Dioxide 23 mmol/L (21-32) 11/29/16 14:50 Anion Gap 12 (8-16) 11/29/16 14:50 BUN 83 mg/dL (7-18) H 11/29/16 14:50 Creatinine 7.9 mg/dL (0.7-1.3) H* 11/29/16 14:50 Creat Clearance w eGFR 7.12 (>60) 11/29/16 14:50 Random Glucose 109 mg/dL (74-106) H 11/29/16 14:50 Calcium 8.7 mg/dL (8.5-10.1) 11/29/16 14:50 Total Bilirubin 0.4 mg/dL (0.2-1.0) 11/29/16 14:50 AST 34 U/L (15-37) 11/29/16 14:50 ALT 13 U/L (12-78) D 11/29/16 14:50 Alkaline Phosphatase 82 U/L (45-117) D 11/29/16 14:50 Total Protein 7.2 g/dl (6.4-8.2) 11/29/16 14:50 Albumin 2.9 g/dl (3.4-5.0) L 11/29/16 14:50 Home Medications Medication Instructions Recorded Omeprazole [Prilosec (RX)] 20 mg PO PRN PRN 08/13/14 Nifedipine ER [Procardia XL -] 30 mg PO DAILY #30 tab.er.24 08/13/15 Atorvastatin Ca [Lipitor] 80 mg PO HS 05/24/16 Calcium Acetate [Phoslo -] 667 mg PO TIDCM 05/24/16 Carvedilol 12.5 mg PO BID 05/24/16 Pregabalin [Lyrica -] 50 mg PO TID 05/24/16 Torsemide 80 mg PO DAILY 05/24/16 Ferrous Sulfate [Feosol] 1 tab PO DAILY 08/02/16 Albuterol Sulfate [Proair 90 mcg IH BID 11/13/16 Respiclick] Cholecalciferol (Vitamin D3) 2,000 unit PO DAILY 11/13/16 [Vitamin D3] Aspirin [ASA -] 81 mg PO DAILY #30 tab.chew 11/15/16 CXR- Pending ASSESSMENT AND PLAN: 56 M with DM, Stroke, asthma, gastric bypass, CKD, and chronic osteomyelitis who presents from nephrology clinic for increased creatnine 1.) CKD 5/ESRD - Nephro consult - TO have HD in am - Monitor Lytes 2.) Chronic Osteomyelitis - Ancef- continue - FU with Podiatry/Wound care 3.) Normocytic anemia - Most likely from CKD - Chk. EPO - Fe studies/B12/ Folic a 4.) Asthma - C/W home meds 5.) DM - Not on any home meds - Chk. A1C - FS/RAISS 6.) Morbid Obesity - Advised 7.) CVA - C/W Home meds 8.) Dvt Ppx - Mod Risk - Heparin Place in Med-[facility]
[2016-11-29 21:54] VITALS: BMI 47.5
[2016-11-29] MEDS: ATORVASTATIN CA 80 MG TABLET (FP) PO SCH (22:45)
[2016-11-29] MEDS: CARVEDILOL 12.5 MG TABLET (FP) PO SCH (22:45)
[2016-11-29] MEDS: PREGABALIN 50 MG CAPSULE PO SCH (22:45)
[2016-11-29] MEDS: INSULIN SLIDING SCALE (NOVOLOG) 1 VIAL SQ SCH (22:46)
[2016-11-30] MEDS ORDERED: FLU VACCINE QUAD 60 MCG/0.5 ML (MDV 17-18) IM ONE (06:00)
[2016-11-30] MEDS: PREGABALIN 50 MG CAPSULE PO SCH ×3 (06:20→22:25)
[2016-11-30] MEDS: INSULIN SLIDING SCALE (NOVOLOG) 1 VIAL SQ SCH ×4 (06:32→22:29)
[2016-11-30 07:41] LABS: MCH 28.2 pg (25.7-33.7); MCHC 32.8 g/dl (32.0-35.9); MEAN PLT VOLUME 9.8 fl (7.5-11.1); PLATELET COUNT 207 K/MM3 (134-434); RDW 14.2 % (11.9-15.9); WHITE BLOOD COUNT 7.1 K/mm3 (4.0-10.0)
[2016-11-30 08:03] LABS: ALBUMIN 2.7 g/dl (3.4-5.0); ANION GAP 11 (8-16); BILIRUBIN,TOTAL 0.2 mg/dL (0.2-1.0); CALCIUM 8.4 mg/dL (8.5-10.1); CO2 25 mmol/L (21-32); GLUCOSE,RANDOM 110 mg/dL (74-106); MAGNESIUM 2.2 mg/dL (1.8-2.4); SGOT/AST 31 U/L (15-37); SGPT/ALT 14 U/L (12-78)
[2016-11-30 08:12] LABS: FERRITIN 201.051 ng/ml (16.4-293.9)
[2016-11-30 08:15] LABS: ALK PHOS 74 U/L (45-117); TOT PROT 6.4 g/dl (6.4-8.2)
[2016-11-30 08:18] LABS: CREATININE 7.9 mg/dL (0.7-1.3)
[2016-11-30] MEDS ORDERED: ceFAZolin SODIUM 1 GM VIAL ONE (09:26)
[2016-11-30] MEDS ORDERED: DEXTROSE 5%-WATER - 50 ML IVPB ONE (09:26)
[2016-11-30] MEDS ORDERED: HEPARIN NA (PORCINE) 5,000 UNITS/ML 1ML VIAL IVPUSH ONE (09:30)
--- NOTE | 2016-11-30 10:26 | PN ---
Physical Exam: SUBJECTIVE: Patient seen and examined at bedside. No acute events over night, will have HD today. he denies any fever, chills, N/V/D/C. OBJECTIVE: Vital Signs Period Temp Pulse Resp BP Sys/Leon Pulse Ox Last 24 Hr 97.5 F-97.9 F 51-59 16-20 110-125/53-76 95-96 GENERAL: The patient is awake, alert, and fully oriented, in no acute distress. HEAD: Normal with no signs of trauma. EYES: conjunctiva clear. ENT: moist mucous membranes. LUNGS: Breath sounds equal, clear to auscultation bilaterally, no wheezes, no crackles, no accessory muscle use. HEART: Regular rate and rhythm, S1, S2 without murmur, rub or gallop. ABDOMEN: Soft, nontender, nondistended, normoactive bowel sounds, no guarding, no rebound. EXTREMITIES: warm, well-perfused, no edema. NEUROLOGICAL: Normal speech, gait not observed. SKIN: Warm, dry, no rashes or lesions noted, peripheral vascular disease. Laboratory Results - last 24 hr 11/29/16 11/30/16 11/30/16 22:44 05:52 06:00 WBC 7.1 RBC 2.82 L Hgb 7.9 L Hct 24.2 L MCV 86.0 MCH 28.2 MCHC 32.8 RDW 14.2 Plt Count 207 MPV 9.8 Sodium Potassium Chloride Carbon Dioxide Anion Gap BUN Creatinine Creat Clearance w eGFR POC Glucometer 190 Random Glucose Hemoglobin A1c % 5.8 Calcium Phosphorus Magnesium Ferritin Total Bilirubin AST ALT Alkaline Phosphatase Total Protein Albumin Vitamin B12 Serum Folate 11/30/16 11/30/16 06:00 06:00 WBC RBC Hgb Hct MCV MCH MCHC RDW Plt Count MPV Sodium 143 Potassium 4.1 Chloride 107 Carbon Dioxide 25 Anion Gap 11 BUN 85 H Creatinine 7.9 H* Creat Clearance w eGFR 7.12 POC Glucometer Random Glucose 110 H Hemoglobin A1c % Calcium 8.4 L Phosphorus 9.0 H* D Magnesium 2.2 D Ferritin 201.051 Total Bilirubin 0.2 D AST 31 ALT 14 Alkaline Phosphatase 74 Total Protein 6.4 Albumin 2.7 L Vitamin B12 914 D Serum Folate 7 Active Medications Generic Name Dose Route Start Last Admin Trade Name Freq PRN Reason Stop Dose Admin Aspirin 81 mg 11/30/16 10:00 Asa - PO DAILY [facility] Atorvastatin Calcium 80 mg 11/29/16 22:00 11/29/16 22:45 Lipitor - PO 80 mg HS [facility] Administration Calcium Acetate 667 mg 11/30/16 08:00 Phoslo - PO TIDCM [facility] Carvedilol 12.5 mg 11/29/16 22:00 11/29/16 22:45 Coreg - PO 12.5 mg BID [facility] Administration Ferrous Sulfate 325 mg 11/30/16 10:00 Feosol - PO DAILY [facility] Heparin Sodium (Porcine) 5,000 unit 11/30/16 22:00 Heparin - SQ TID [facility] Cefazolin Sodium 1 gm/ 50 mls @ 100 mls/hr 11/30/16 10:00 Dextrose IVPB DAILY [facility] Insulin Aspart 1 vial 11/29/16 22:00 11/30/16 06:32 Novolog Vial Sliding Scale - SQ Not Given ACHS [facility] Protocol Nifedipine 30 mg 11/30/16 10:00 Procardia Xl - PO DAILY [facility] Pantoprazole Sodium 20 mg 11/30/16 10:00 Protonix - PO DAILY [facility] Pregabalin 50 mg 11/29/16 22:00 11/30/16 06:20 Lyrica - PO 50 mg TID [facility] Administration Torsemide 80 mg 11/30/16 10:00 Demadex - PO DAILY [facility] CBC, BMP 11/30/16 06:00 11/30/16 06:00 ASSESSMENT/PLAN: 56 M with DM, Stroke, asthma, gastric bypass, CKD, and chronic osteomyelitis who presents from nephrology clinic for increased creatnine # CKD stage 5/ESRD - BUN/Cr 85/7.9 - Nephro consult: - Had hemodialysis today, tolerated well , will evaluate for hemodialysis tomorrow - Torsemide 80 mg PO daily - Calcium oxalate 667 po TIDCM [facility] - Monitor electrolytes -CBC, CMP in AM -will need placement for HD, papers sent to [facility] in [facility] # Chronic Osteomyelitis, - Ancef- continue 1g IVBP daily - Bactroban 2% cream 1 apl TP daily - F/U with Podiatry/Wound care # Normocytic anemia, likely 2/2 CKD - H/H 7.9/24.2 - Chk. EPO - Fe studies/B12/ Folic acid - Ferrous sulfat 325 mg po daily # HTN, - BB today 110-125/53-76 - continue home meds Torsemid 80 mg Po daily ,nivedipine ER 30 mg po daily, coreg 12.5 PO daily - continue to monitor BP # Protienuria , - Nephrotic - had HD today will evaluate again tomorrow # Asthma - C/W home meds # Hyperlipidimia , - Lipitor 80 mg po daily #DM - Not on any home meds - Chk. A1C -glucosuria +1 - FS/RAISS #Morbid Obesity -s/p gastric bypass - patient education # CVA - C/W Home meds # Dvt Ppx - Mod Risk, Heparin 5000 SQ Q8hr - GI: Protonix 20 mg daily # Dispo -admit to [facility] - will need placement for HD, papers sent to [facility] in [facility] Visit type - Emergency Visit Emergency Visit: Yes ED Registration Date: 11/29/16 Care time: The patient presented to the Emergency Department on the above date and was hospitalized for further evaluation of their emergent condition. - New Patient This patient is new to me today: No - Critical Care Critical Care patient: No - Discharge Referral Referred to [facility] Med P.C.: No
[2016-11-30 11:32] LABS: URINE APPEARANCE SLCLOUDY; URINE BILIRUBIN NEGATIVE (NEGATIVE); URINE BLOOD 1+ (NEGATIVE); URINE COLOR LTYELLOW; URINE GLUCOSE (UA) 1+ (NEGATIVE); URINE KETONE NEGATIVE (NEGATIVE); URINE LEUK ESTERASE NEGATIVE (NEGATIVE); URINE NITRITE NEGATIVE (NEGATIVE); URINE UROBILINOGEN NEGATIVE mg/dL (0.2-1.0)
[2016-11-30 11:47] LABS: URINE PROTEIN 3+ (NEGATIVE)
[2016-11-30 12:36] LABS: GRANULAR CASTS 9 /lpf; URINE HYALINE CAST 3 /lpf; URINE RBC <1 /hpf (0-3); URINE WBC 3 /hpf (3-5)
[2016-11-30] MEDS: CALCIUM ACETATE 667 MG CAPSULE (FP) PO SCH ×2 (12:58→17:58)
[2016-11-30] MEDS: CARVEDILOL 12.5 MG TABLET (FP) PO SCH ×2 (13:45→22:25)
[2016-11-30] MEDS: TORSEMIDE 20 MG TABLET (FP) PO SCH (13:45)
[2016-11-30] MEDS: ASPIRIN 81 MG CHEWABLE TABLETS PO SCH (13:45)
[2016-11-30] MEDS: FERROUS SO4 325 MG TABLET (FP) PO SCH (13:45)
[2016-11-30] MEDS: CEFAZOLIN 1 GM in DEXTROSE 5%-WATER - 50 ML IVPB SCH (13:45)
[2016-11-30] MEDS: PANTOPRAZOLE 20 MG TABLET (FP) PO SCH (13:46)
[2016-11-30] MEDS: NIFEdipine E.R. 30 MG TABLET (FP) PO SCH (13:46)
--- NOTE | 2016-11-30 16:25 | PN ---
Progress Note, Physician History of Present Illness: Pt seen and examined at bedside. He tolerated HD. He denies shortness of breath. - Current Medication List Current Medications: Active Medications Aspirin (Asa -) 81 mg PO DAILY [facility] Last Admin: 11/30/16 13:45 Dose: 81 mg Atorvastatin Calcium (Lipitor -) 80 mg PO HS [facility] Last Admin: 11/29/16 22:45 Dose: 80 mg Calcium Acetate (Phoslo -) 667 mg PO TIDCM [facility] Last Admin: 11/30/16 12:58 Dose: Not Given Carvedilol (Coreg -) 12.5 mg PO BID [facility] Last Admin: 11/30/16 13:45 Dose: 12.5 mg Ferrous Sulfate (Feosol -) 325 mg PO DAILY [facility] Last Admin: 11/30/16 13:45 Dose: 325 mg Heparin Sodium (Porcine) (Heparin -) 5,000 unit SQ TID [facility] Cefazolin Sodium 1 gm/ (Dextrose) 50 mls @ 100 mls/hr IVPB DAILY [facility] Last Admin: 11/30/16 13:45 Dose: 100 mls/hr Insulin Aspart (Novolog Vial Sliding Scale -) 1 vial SQ ACHS [facility] PRN Reason: Protocol Last Admin: 11/30/16 12:19 Dose: Not Given Nifedipine (Procardia Xl -) 30 mg PO DAILY [facility] Last Admin: 11/30/16 13:46 Dose: 30 mg Pantoprazole Sodium (Protonix -) 20 mg PO DAILY [facility] Last Admin: 11/30/16 13:46 Dose: 20 mg Pregabalin (Lyrica -) 50 mg PO TID [facility] Last Admin: 11/30/16 15:53 Dose: 50 mg Torsemide (Demadex -) 80 mg PO DAILY [facility] Last Admin: 11/30/16 13:45 Dose: 80 mg - Objective Vital Signs: Vital Signs Temperature 97.8 F 11/30/16 13:42 Pulse Rate 60 11/30/16 13:42 Respiratory Rate 18 11/30/16 13:42 Blood Pressure 135/71 11/30/16 13:42 O2 Sat by Pulse Oximetry (%) 96 11/30/16 05:00 Constitutional: Yes: Calm Eyes: Yes: Conjunctiva Clear HENT: Yes: Atraumatic Neck: Yes: Supple Cardiovascular: Yes: S1, S2 Respiratory: Yes: Regular Gastrointestinal: Yes: Soft Genitourinary: Yes: WNL Extremities: Yes: WNL Edema: Yes Neurological: Yes: Oriented Psychiatric: Yes: Oriented Labs: CBC, BMP 11/30/16 06:00 11/30/16 06:00 Problem List - Problems (1) Anemia Code(s): D64.9 - ANEMIA, UNSPECIFIED Qualifiers: Anemia type: other cause Other causes of anemia: other cause, not classified Qualified Code(s): D64.89 - Other specified anemias (2) Chronic kidney disease Code(s): N18.9 - CHRONIC KIDNEY DISEASE, UNSPECIFIED Qualifiers: Chronic kidney disease stage: unspecified stage Qualified Code(s): N18.9 - Chronic kidney disease, unspecified (3) HTN (hypertension) Code(s): I10 - ESSENTIAL (PRIMARY) HYPERTENSION Assessment/Plan Current Medications Generic Name Dose Route Start Last Admin Trade Name Freq PRN Reason Stop Dose Admin Aspirin 81 mg 11/30/16 10:00 11/30/16 13:45 Asa - PO 81 mg DAILY [facility] Administration Atorvastatin Calcium 80 mg 11/29/16 22:00 11/29/16 22:45 Lipitor - PO 80 mg HS [facility] Administration Calcium Acetate 667 mg 11/30/16 08:00 11/30/16 12:58 Phoslo - PO Not Given TIDCM [facility] Carvedilol 12.5 mg 11/29/16 22:00 11/30/16 13:45 Coreg - PO 12.5 mg BID [facility] Administration Ferrous Sulfate 325 mg 11/30/16 10:00 11/30/16 13:45 Feosol - PO 325 mg DAILY [facility] Administration Heparin Sodium (Porcine) 5,000 unit 11/30/16 22:00 Heparin - SQ TID [facility] Cefazolin Sodium 1 gm/ 50 mls @ 100 mls/hr 11/30/16 10:00 11/30/16 13:45 Dextrose IVPB 100 mls/hr DAILY [facility] Administration Insulin Aspart 1 vial 11/29/16 22:00 11/30/16 12:19 Novolog Vial Sliding Scale - SQ Not Given ACHS [facility] Protocol Nifedipine 30 mg 11/30/16 10:00 11/30/16 13:46 Procardia Xl - PO 30 mg DAILY [facility] Administration Pantoprazole Sodium 20 mg 11/30/16 10:00 11/30/16 13:46 Protonix - PO 20 mg DAILY [facility] Administration Pregabalin 50 mg 11/29/16 22:00 11/30/16 15:53 Lyrica - PO 50 mg TID [facility] Administration Torsemide 80 mg 11/30/16 10:00 11/30/16 13:45 Demadex - PO 80 mg DAILY [facility] Administration Impression 1. ESRD 2. anemia 3. HTN 4. morbid obesity 5. CVA 6. hyperlipidemia 7. proteinuria - nephrotic Plan - pt tolerated HD - will evaluate for HD again tomorrow - cont ancef as scheduled - wound care to legs - will need placement for HD, please sent papers to [facility] in [place]
[2016-11-30] MEDS ORDERED: INSULIN (NOVOLOG) ASPART 100 UNITS/ML 10ML VIAL ONE (17:35)
--- NOTE | 2016-11-30 17:44 | PN ---
Teaching Attending Note Name of Resident: Raffy Parra ATTENDING PHYSICIAN STATEMENT I saw and evaluated the patient. I reviewed the resident's note and discussed the case with the resident. I agree with the resident's findings and plan as documented. SUBJECTIVE: Patient has no complaints. OBJECTIVE: Vital Signs Period Temp Pulse Resp BP Sys/Leon Pulse Ox Last 24 Hr 97.5 F-97.9 F 51-60 18-20 94-148/43-78 96-96 HEART: S1S2, RRR LUNGS: Clear ABDOMEN: Obese, soft, non-tender, non-distended, normal BS EXTREMITIES: 1+ edema with chronic changes both legs Current Medications Generic Name Dose Route Start Last Admin Trade Name Freq PRN Reason Stop Dose Admin Aspirin 81 mg 11/30/16 10:00 11/30/16 13:45 Asa - PO 81 mg DAILY [facility] Administration Atorvastatin Calcium 80 mg 11/29/16 22:00 11/29/16 22:45 Lipitor - PO 80 mg HS [facility] Administration Calcium Acetate 667 mg 11/30/16 08:00 11/30/16 12:58 Phoslo - PO Not Given TIDCM [facility] Carvedilol 12.5 mg 11/29/16 22:00 11/30/16 13:45 Coreg - PO 12.5 mg BID [facility] Administration Ferrous Sulfate 325 mg 11/30/16 10:00 11/30/16 13:45 Feosol - PO 325 mg DAILY [facility] Administration Heparin Sodium (Porcine) 5,000 unit 11/30/16 22:00 Heparin - SQ TID [facility] Cefazolin Sodium 1 gm/ 50 mls @ 100 mls/hr 11/30/16 10:00 11/30/16 13:45 Dextrose IVPB 100 mls/hr DAILY [facility] Administration Insulin Aspart 1 vial 11/29/16 22:00 11/30/16 12:19 Novolog Vial Sliding Scale - SQ Not Given ACHS [facility] Protocol Nifedipine 30 mg 11/30/16 10:00 11/30/16 13:46 Procardia Xl - PO 30 mg DAILY [facility] Administration Pantoprazole Sodium 20 mg 11/30/16 10:00 11/30/16 13:46 Protonix - PO 20 mg DAILY [facility] Administration Pregabalin 50 mg 11/29/16 22:00 11/30/16 15:53 Lyrica - PO 50 mg TID [facility] Administration Torsemide 80 mg 11/30/16 10:00 11/30/16 13:45 Demadex - PO 80 mg DAILY [facility] Administration ASSESSMENT AND PLAN: This is a 56 year old man with a history of stage 5 CKD, type 2 DM, HTN, gastric bypass, morbid obesity, osteomyelitis who presented to the ER for anemia. 1. Stage 5 CKD with nephrotic range proteinuria - Tolerated HD - Continue Demadex, PhosLo 2. Anemia secondary to CKD - Contineu ferrous sulfate 3. Left 1st toe ulcer with osteomyelitis - Continue Ancef 4. Type 2 DM - Continue Novolog sliding scale 5. HTN - Continue Coreg, Procardia XL, Demadex 6. Hyperlipidemia - Continue Lipitor 7. Morbid obesity, history of sleeve gastrectomy
[2016-11-30] MEDS: MUPIROCIN CA 2% TOPICAL CREAM 15 GM TUBE TP SCH (20:29)
[2016-11-30] MEDS: ATORVASTATIN CA 80 MG TABLET (FP) PO SCH (22:25)
[2016-11-30] MEDS: HEPARIN NA (PORCINE) 5,000 UNITS/ML 1ML VIAL SQ SCH (22:25)
[2016-12-01 06:07] LABS: SERUM IRON 37 ug/dL (38-169); TOTAL IRON BINDING CAPACITY 202 ug/dL (250-450); UIBC 165 ug/dL (111-343)
[2016-12-01] MEDS: PREGABALIN 50 MG CAPSULE PO SCH ×3 (06:36→21:42)
[2016-12-01] MEDS: HEPARIN NA (PORCINE) 5,000 UNITS/ML 1ML VIAL SQ SCH ×3 (06:36→21:42)
[2016-12-01] MEDS: INSULIN SLIDING SCALE (NOVOLOG) 1 VIAL SQ SCH ×4 (06:41→21:54)
[2016-12-01 07:26] LABS: MCH 28.1 pg (25.7-33.7); MCHC 32.8 g/dl (32.0-35.9); MEAN CELL VOLUME 85.5 fl (80-96); MEAN PLT VOLUME 9.6 fl (7.5-11.1); PLATELET COUNT 183 K/MM3 (134-434); RDW 14.2 % (11.9-15.9); WHITE BLOOD COUNT 6.1 K/mm3 (4.0-10.0)
[2016-12-01 08:01] LABS: ALBUMIN 2.4 g/dl (3.4-5.0); ALK PHOS 71 U/L (45-117); ANION GAP 10 (8-16); BILIRUBIN,TOTAL 0.2 mg/dL (0.2-1.0); CALCIUM 8.1 mg/dL (8.5-10.1); CO2 26 mmol/L (21-32); CREATININE 6.6 mg/dL (0.7-1.3); GLUCOSE,RANDOM 87 mg/dL (74-106); SGOT/AST 26 U/L (15-37); SGPT/ALT 12 U/L (12-78); TOT PROT 6.1 g/dl (6.4-8.2)
[2016-12-01] MEDS: CALCIUM ACETATE 667 MG CAPSULE (FP) PO SCH ×3 (08:32→16:31)
[2016-12-01] MEDS ORDERED: ceFAZolin SODIUM 1 GM VIAL ONE (10:27)
[2016-12-01] MEDS ORDERED: PT OWN MED DRAWER 7, Y5N ONE (10:27)
[2016-12-01] MEDS ORDERED: DEXTROSE 5%-WATER - 50 ML IVPB ONE (10:27)
[2016-12-01] MEDS: TORSEMIDE 20 MG TABLET (FP) PO SCH (10:30)
[2016-12-01] MEDS: CARVEDILOL 12.5 MG TABLET (FP) PO SCH ×2 (10:31→21:42)
[2016-12-01] MEDS: NIFEdipine E.R. 30 MG TABLET (FP) PO SCH (10:32)
[2016-12-01] MEDS: PANTOPRAZOLE 20 MG TABLET (FP) PO SCH (10:32)
[2016-12-01] MEDS: FERROUS SO4 325 MG TABLET (FP) PO SCH (10:32)
[2016-12-01] MEDS: ASPIRIN 81 MG CHEWABLE TABLETS PO SCH (10:32)
[2016-12-01] MEDS: CEFAZOLIN 1 GM in DEXTROSE 5%-WATER - 50 ML IVPB SCH (10:33)
[2016-12-01] MEDS: MUPIROCIN CA 2% TOPICAL CREAM 15 GM TUBE TP SCH (10:33)
[2016-12-01] MEDS ORDERED: INSULIN (NOVOLOG) ASPART 100 UNITS/ML 10ML VIAL ONE (12:51)
--- NOTE | 2016-12-01 14:48 | PN ---
Progress Note, Physician History of Present Illness: Pt seen and examined at bedside. He is awake and alert. - Current Medication List Current Medications: Active Medications Aspirin (Asa -) 81 mg PO DAILY [facility] Last Admin: 12/01/16 10:32 Dose: 81 mg Atorvastatin Calcium (Lipitor -) 80 mg PO HS [facility] Last Admin: 11/30/16 22:25 Dose: 80 mg Calcium Acetate (Phoslo -) 667 mg PO TIDCM [facility] Last Admin: 12/01/16 12:55 Dose: 667 mg Carvedilol (Coreg -) 12.5 mg PO BID [facility] Last Admin: 12/01/16 10:31 Dose: 12.5 mg Ferrous Sulfate (Feosol -) 325 mg PO DAILY [facility] Last Admin: 12/01/16 10:32 Dose: 325 mg Heparin Sodium (Porcine) (Heparin -) 5,000 unit SQ TID [facility] Last Admin: 12/01/16 06:36 Dose: 5,000 unit Heparin Sodium (Porcine) (Heparin -) 1,000 unit IVPUSH ONCE ONE Stop: 12/01/16 12:00 Cefazolin Sodium 1 gm/ (Dextrose) 50 mls @ 100 mls/hr IVPB DAILY [facility] Last Admin: 12/01/16 10:33 Dose: 100 mls/hr Insulin Aspart (Novolog Vial Sliding Scale -) 1 vial SQ ACHS [facility] PRN Reason: Protocol Last Admin: 12/01/16 12:55 Dose: 2 unit Mupirocin (Bactroban 2% Cream -) 1 applic TP DAILY [facility] Last Admin: 12/01/16 10:33 Dose: 1 appful Nifedipine (Procardia Xl -) 30 mg PO DAILY [facility] Last Admin: 12/01/16 10:32 Dose: 30 mg Pantoprazole Sodium (Protonix -) 20 mg PO DAILY [facility] Last Admin: 12/01/16 10:32 Dose: 20 mg Pregabalin (Lyrica -) 50 mg PO TID [facility] Last Admin: 12/01/16 06:36 Dose: 50 mg Torsemide (Demadex -) 80 mg PO DAILY [facility] Last Admin: 12/01/16 10:30 Dose: 80 mg - Objective Vital Signs: Vital Signs Temperature 97.7 F 12/01/16 14:31 Pulse Rate 60 12/01/16 14:31 Respiratory Rate 20 12/01/16 14:31 Blood Pressure 131/63 12/01/16 14:31 O2 Sat by Pulse Oximetry (%) 100 11/30/16 21:00 Constitutional: Yes: Calm Eyes: Yes: Conjunctiva Clear HENT: Yes: Atraumatic Neck: Yes: Supple Cardiovascular: Yes: S1, S2 Respiratory: Yes: CTA Bilaterally Gastrointestinal: Yes: Normal Bowel Sounds, Soft Genitourinary: Yes: WNL Musculoskeletal: Yes: WNL Edema: Yes Edema: LLE: 2+, RLE: 2+ Neurological: Yes: Oriented Psychiatric: Yes: Oriented Labs: CBC, BMP 12/01/16 06:00 12/01/16 06:00 Problem List - Problems (1) Anemia Code(s): D64.9 - ANEMIA, UNSPECIFIED Qualifiers: Anemia type: other cause Other causes of anemia: other cause, not classified Qualified Code(s): D64.89 - Other specified anemias (2) Chronic kidney disease Code(s): N18.9 - CHRONIC KIDNEY DISEASE, UNSPECIFIED Qualifiers: Chronic kidney disease stage: unspecified stage Qualified Code(s): N18.9 - Chronic kidney disease, unspecified (3) HTN (hypertension) Code(s): I10 - ESSENTIAL (PRIMARY) HYPERTENSION Assessment/Plan Current Medications Generic Name Dose Route Start Last Admin Trade Name Freq PRN Reason Stop Dose Admin Aspirin 81 mg 11/30/16 10:00 12/01/16 10:32 Asa - PO 81 mg DAILY [facility] Administration Atorvastatin Calcium 80 mg 11/29/16 22:00 11/30/16 22:25 Lipitor - PO 80 mg HS [facility] Administration Calcium Acetate 667 mg 11/30/16 08:00 12/01/16 12:55 Phoslo - PO 667 mg TIDCM [facility] Administration Carvedilol 12.5 mg 11/29/16 22:00 12/01/16 10:31 Coreg - PO 12.5 mg BID [facility] Administration Ferrous Sulfate 325 mg 11/30/16 10:00 12/01/16 10:32 Feosol - PO 325 mg DAILY [facility] Administration Heparin Sodium (Porcine) 5,000 unit 11/30/16 22:00 12/01/16 06:36 Heparin - SQ 5,000 unit TID [facility] Administration Heparin Sodium (Porcine) 1,000 unit 12/01/16 11:59 Heparin - IVPUSH 12/01/16 12:00 ONCE ONE Cefazolin Sodium 1 gm/ 50 mls @ 100 mls/hr 11/30/16 10:00 12/01/16 10:33 Dextrose IVPB 100 mls/hr DAILY [facility] Administration Insulin Aspart 1 vial 11/29/16 22:00 12/01/16 12:55 Novolog Vial Sliding Scale - SQ 2 unit ACHS [facility] Administration Protocol Mupirocin 1 applic 11/30/16 18:30 12/01/16 10:33 Bactroban 2% Cream - TP 1 appful DAILY [facility] Administration Nifedipine 30 mg 11/30/16 10:00 12/01/16 10:32 Procardia Xl - PO 30 mg DAILY [facility] Administration Pantoprazole Sodium 20 mg 11/30/16 10:00 12/01/16 10:32 Protonix - PO 20 mg DAILY [facility] Administration Pregabalin 50 mg 11/29/16 22:00 12/01/16 06:36 Lyrica - PO 50 mg TID [facility] Administration Torsemide 80 mg 11/30/16 10:00 12/01/16 10:30 Demadex - PO 80 mg DAILY [facility] Administration Laboratory Tests 11/15/16 06:00 Hepatitis A Ab Total Negative Hep Bs Antigen Negative Hep Bs Antibody Non reactive Hep B Core Total Ab Negative Hepatitis C Antibody <0.1 Impression 1. ESRD 2. anemia 3. HTN 4. morbid obesity 5. CVA 6. hyperlipidemia 7. proteinuria - nephrotic Plan - will arrange for HD today - pending acceptance to [facility] - hepatitis serologies noted - cont ancef as scheduled - wound care to legs Dr Win
--- NOTE | 2016-12-01 15:57 | PN ---
Physical Exam: SUBJECTIVE: Patient seen and examined at bedside. No acute events over night, will have HD today. he denies any fever, chills, N/V/D/C. OBJECTIVE: Vital Signs Period Temp Pulse Resp BP Sys/Leon Pulse Ox Last 24 Hr 97.7 F-98.7 F 54-92 18-20 127-134/50-68 100-100 GENERAL: The patient is awake, alert, and fully oriented, in no acute distress. HEAD: Normal with no signs of trauma. EYES: conjunctiva clear. ENT: moist mucous membranes. LUNGS: Breath sounds equal, clear to auscultation bilaterally, no wheezes, no crackles, no accessory muscle use. HEART: Regular rate and rhythm, S1, S2 without murmur, rub or gallop. ABDOMEN: Soft, nontender, nondistended, normoactive bowel sounds, no guarding, no rebound. EXTREMITIES: warm, well-perfused, no edema. NEUROLOGICAL: Normal speech, gait not observed. SKIN: Warm, dry, no rashes or lesions noted, peripheral vascular disease. Laboratory Results - last 24 hr 11/30/16 11/30/16 11/30/16 06:00 06:00 09:45 WBC RBC Hgb Hct MCV MCH MCHC RDW Plt Count MPV Sodium Potassium Chloride Carbon Dioxide Anion Gap BUN Creatinine Creat Clearance w eGFR POC Glucometer Random Glucose Calcium Phosphorus Iron 37 L TIBC 202 L Iron Saturation 18 Erythropoietin 7.1 Total Bilirubin AST ALT Alkaline Phosphatase Total Protein Albumin Urine Color Ltyellow Urine Appearance Slcloudy Urine pH 5.0 Ur Specific [place] 1.020 Urine Protein 3+ H Urine Glucose (UA) 1+ H Urine Ketones Negative Urine Blood 1+ H Urine Nitrite Negative Urine Bilirubin Negative Urine Urobilinogen Negative Urine RBC <1 Urine WBC 3 Ur Epithelial Cells Rare Hyaline Casts 3 Granular Casts 9 11/30/16 11/30/16 12/01/16 17:18 22:28 06:00 WBC 6.1 RBC 2.69 L Hgb 7.5 L Hct 23.0 L MCV 85.5 MCH 28.1 MCHC 32.8 RDW 14.2 Plt Count 183 MPV 9.6 Sodium Potassium Chloride Carbon Dioxide Anion Gap BUN Creatinine Creat Clearance w eGFR POC Glucometer 214 210 Random Glucose Calcium Phosphorus Iron TIBC Iron Saturation Erythropoietin Total Bilirubin AST ALT Alkaline Phosphatase Total Protein Albumin Urine Color Urine Appearance Urine pH Ur Specific [place] Urine Protein Urine Glucose (UA) Urine Ketones Urine Blood Urine Nitrite Urine Bilirubin Urine Urobilinogen Urine RBC Urine WBC Ur Epithelial Cells Hyaline Casts Granular Casts 12/01/16 12/01/16 12/01/16 06:00 06:00 06:39 WBC RBC Hgb Hct MCV MCH MCHC RDW Plt Count MPV Sodium 142 Potassium 3.8 Chloride 106 Carbon Dioxide 26 Anion Gap 10 BUN 64 H D Creatinine 6.6 H Creat Clearance w eGFR 8.76 POC Glucometer 103 Random Glucose 87 D Calcium 8.1 L Phosphorus 8.1 H Iron TIBC Iron Saturation Erythropoietin Total Bilirubin 0.2 AST 26 ALT 12 Alkaline Phosphatase 71 Total Protein 6.1 L Albumin 2.4 L Urine Color Urine Appearance Urine pH Ur Specific [place] Urine Protein Urine Glucose (UA) Urine Ketones Urine Blood Urine Nitrite Urine Bilirubin Urine Urobilinogen Urine RBC Urine WBC Ur Epithelial Cells Hyaline Casts Granular Casts Active Medications Generic Name Dose Route Start Last Admin Trade Name Freq PRN Reason Stop Dose Admin Aspirin 81 mg 11/30/16 10:00 12/01/16 10:32 Asa - PO 81 mg DAILY [facility] Administration Atorvastatin Calcium 80 mg 11/29/16 22:00 11/30/16 22:25 Lipitor - PO 80 mg HS [facility] Administration Calcium Acetate 667 mg 11/30/16 08:00 12/01/16 12:55 Phoslo - PO 667 mg TIDCM [facility] Administration Carvedilol 12.5 mg 11/29/16 22:00 12/01/16 10:31 Coreg - PO 12.5 mg BID [facility] Administration Ferrous Sulfate 325 mg 11/30/16 10:00 12/01/16 10:32 Feosol - PO 325 mg DAILY [facility] Administration Heparin Sodium (Porcine) 5,000 unit 11/30/16 22:00 12/01/16 06:36 Heparin - SQ 5,000 unit TID [facility] Administration Heparin Sodium (Porcine) 1,000 unit 12/01/16 11:59 Heparin - IVPUSH 12/01/16 12:00 ONCE ONE Cefazolin Sodium 1 gm/ 50 mls @ 100 mls/hr 11/30/16 10:00 12/01/16 10:33 Dextrose IVPB 100 mls/hr DAILY [facility] Administration Insulin Aspart 1 vial 11/29/16 22:00 12/01/16 12:55 Novolog Vial Sliding Scale - SQ 2 unit ACHS [facility] Administration Protocol Mupirocin 1 applic 11/30/16 18:30 12/01/16 10:33 Bactroban 2% Cream - TP 1 appful DAILY [facility] Administration Nifedipine 30 mg 11/30/16 10:00 12/01/16 10:32 Procardia Xl - PO 30 mg DAILY [facility] Administration Pantoprazole Sodium 20 mg 11/30/16 10:00 12/01/16 10:32 Protonix - PO 20 mg DAILY [facility] Administration Pregabalin 50 mg 11/29/16 22:00 12/01/16 06:36 Lyrica - PO 50 mg TID [facility] Administration Torsemide 80 mg 11/30/16 10:00 12/01/16 10:30 Demadex - PO 80 mg DAILY [facility] Administration CBC, BMP 12/01/16 06:00 12/01/16 06:00 ASSESSMENT/PLAN: 56 M with DM, Stroke, asthma, gastric bypass, CKD, and chronic osteomyelitis who presents from nephrology clinic for increased creatnine # CKD stage 5/ESRD - BUN/Cr 64/6.6 - Nephro consult: - Had hemodialysis today, tolerated well , will evaluate for hemodialysis tomorrow - Torsemide 80 mg PO daily - Calcium oxalate 667 po TIDCM [facility] - Monitor electrolytes -CBC, CMP in AM -will need placement for HD, papers sent to [facility] in [facility] # Chronic Osteomyelitis, - Ancef- continue 1g IVBP daily - Bactroban 2% cream 1 apl TP daily - F/U with Podiatry/Wound care # Normocytic anemia, likely 2/2 CKD - H/H 7.5/23 - Chk. EPO - Fe studies/B12/ Folic acid - Ferrous sulfat 325 mg po daily # HTN, - BB today 110-125/53-76 - continue home meds Torsemid 80 mg Po daily ,nivedipine ER 30 mg po daily, coreg 12.5 PO daily - continue to monitor BP # Protienuria , - Nephrotic - had HD today will evaluate again tomorrow # Asthma - C/W home meds # Hyperlipidimia , - Lipitor 80 mg po daily #DM - Not on any home meds - Chk. A1C -glucosuria +1 - FS/RAISS #Morbid Obesity -s/p gastric bypass - patient education # CVA - C/W Home meds # Dvt Ppx - Mod Risk, Heparin 5000 SQ Q8hr - GI: Protonix 20 mg daily # Dispo -admit to [facility] - pending placement for HD, [facility] sent [facility] Visit type - Emergency Visit Emergency Visit: Yes ED Registration Date: 11/29/16 Care time: The patient presented to the Emergency Department on the above date and was hospitalized for further evaluation of their emergent condition. - New Patient This patient is new to me today: No - Critical Care Critical Care patient: No - Discharge Referral Referred to [facility] Med [facility].: No
--- NOTE | 2016-12-01 16:53 | PN ---
Teaching Attending Note Name of Resident: Raffy Parra ATTENDING PHYSICIAN STATEMENT I saw and evaluated the patient. I reviewed the resident's note and discussed the case with the resident. I agree with the resident's findings and plan as documented. SUBJECTIVE: No complaints. OBJECTIVE: Vital Signs Period Temp Pulse Resp BP Sys/Leon Pulse Ox Last 24 Hr 97.7 F-98.7 F 54-92 18-20 127-134/50-68 100-100 HEART: S1S2, RRR LUNGS: Clear ABDOMEN: Obese, soft, non-tender, non-distended, normal BS EXTREMITIES: 1+ edema with chronic changes both legs Current Medications Generic Name Dose Route Start Last Admin Trade Name Freq PRN Reason Stop Dose Admin Aspirin 81 mg 11/30/16 10:00 12/01/16 10:32 Asa - PO 81 mg DAILY [facility] Administration Atorvastatin Calcium 80 mg 11/29/16 22:00 11/30/16 22:25 Lipitor - PO 80 mg HS [facility] Administration Calcium Acetate 667 mg 11/30/16 08:00 12/01/16 16:31 Phoslo - PO 667 mg TIDCM [facility] Administration Carvedilol 12.5 mg 11/29/16 22:00 12/01/16 10:31 Coreg - PO 12.5 mg BID [facility] Administration Ferrous Sulfate 325 mg 11/30/16 10:00 12/01/16 10:32 Feosol - PO 325 mg DAILY [facility] Administration Heparin Sodium (Porcine) 5,000 unit 11/30/16 22:00 12/01/16 15:54 Heparin - SQ 5,000 unit TID [facility] Administration Heparin Sodium (Porcine) 1,000 unit 12/01/16 11:59 Heparin - IVPUSH 12/01/16 12:00 ONCE ONE Cefazolin Sodium 1 gm/ 50 mls @ 100 mls/hr 11/30/16 10:00 12/01/16 10:33 Dextrose IVPB 100 mls/hr DAILY [facility] Administration Insulin Aspart 1 vial 11/29/16 22:00 12/01/16 16:22 Novolog Vial Sliding Scale - SQ 2 unit ACHS [facility] Administration Protocol Mupirocin 1 applic 11/30/16 18:30 12/01/16 10:33 Bactroban 2% Cream - TP 1 appful DAILY [facility] Administration Nifedipine 30 mg 11/30/16 10:00 12/01/16 10:32 Procardia Xl - PO 30 mg DAILY [facility] Administration Pantoprazole Sodium 20 mg 11/30/16 10:00 12/01/16 10:32 Protonix - PO 20 mg DAILY [facility] Administration Pregabalin 50 mg 11/29/16 22:00 12/01/16 14:54 Lyrica - PO 50 mg TID [facility] Administration Torsemide 80 mg 11/30/16 10:00 12/01/16 10:30 Demadex - PO 80 mg DAILY [facility] Administration ASSESSMENT AND PLAN: This is a 56 year old man with a history of stage 5 CKD, type 2 DM, HTN, gastric bypass, morbid obesity, osteomyelitis who presented to the ER for worsening creatinine. 1. ESRD with nephrotic range proteinuria - HD today - Continue Demadex, PhosLo - Arrangements being made for HD at [facility] 2. Anemia secondary to CKD - Continue ferrous sulfate 3. Left 1st toe ulcer with osteomyelitis - Continue Ancef 4. Type 2 DM - Continue Novolog sliding scale 5. HTN - Continue Coreg, Procardia XL, Demadex 6. Hyperlipidemia - Continue Lipitor 7. Morbid obesity with BMI 47.5, history of sleeve gastrectomy
[2016-12-01] MEDS ORDERED: HEPARIN NA (PORCINE) 5,000 UNITS/ML 1ML VIAL IVPUSH ONE (18:00)
[2016-12-01] MEDS: ATORVASTATIN CA 80 MG TABLET (FP) PO SCH (21:42)
[2016-12-02] MEDS ORDERED: PT OWN MED DRAWER 7, Y5N ONE (05:55)
[2016-12-02] MEDS: PREGABALIN 50 MG CAPSULE PO SCH ×2 (06:00→13:42)
[2016-12-02] MEDS: HEPARIN NA (PORCINE) 5,000 UNITS/ML 1ML VIAL SQ SCH ×3 (06:01→22:32)
[2016-12-02] MEDS: INSULIN SLIDING SCALE (NOVOLOG) 1 VIAL SQ SCH ×4 (06:14→22:33)
[2016-12-02 07:06] LABS: MCH 28.5 pg (25.7-33.7); MCHC 33.1 g/dl (32.0-35.9); MEAN CELL VOLUME 85.9 fl (80-96); MEAN PLT VOLUME 9.9 fl (7.5-11.1); PLATELET COUNT 169 K/MM3 (134-434); RDW 14.2 % (11.9-15.9); WHITE BLOOD COUNT 6.1 K/mm3 (4.0-10.0)
[2016-12-02 07:42] LABS: ANION GAP 7 (8-16); CALCIUM 8.1 mg/dL (8.5-10.1); CO2 31 mmol/L (21-32); CREATININE 5.6 mg/dL (0.7-1.3); GLUCOSE,RANDOM 96 mg/dL (74-106); PHOSPHOROUS 5.3 mg/dL (2.5-4.9)
[2016-12-02] MEDS: CALCIUM ACETATE 667 MG CAPSULE (FP) PO SCH ×3 (08:00→17:32)
[2016-12-02] MEDS ORDERED: DEXTROSE 5%-WATER - 50 ML IVPB ONE (09:46)
[2016-12-02] MEDS ORDERED: ceFAZolin SODIUM 1 GM VIAL ONE (09:46)
[2016-12-02] MEDS: CEFAZOLIN 1 GM in DEXTROSE 5%-WATER - 50 ML IVPB SCH ×2 (09:48→10:22)
[2016-12-02] MEDS: ASPIRIN 81 MG CHEWABLE TABLETS PO SCH (09:48)
[2016-12-02] MEDS: NIFEdipine E.R. 30 MG TABLET (FP) PO SCH (09:48)
[2016-12-02] MEDS: CARVEDILOL 12.5 MG TABLET (FP) PO SCH ×2 (09:48→22:32)
[2016-12-02] MEDS: PANTOPRAZOLE 20 MG TABLET (FP) PO SCH (09:48)
[2016-12-02] MEDS: FERROUS SO4 325 MG TABLET (FP) PO SCH (09:48)
[2016-12-02] MEDS: TORSEMIDE 20 MG TABLET (FP) PO SCH (10:16)
[2016-12-02] MEDS: MUPIROCIN CA 2% TOPICAL CREAM 15 GM TUBE TP SCH (10:45)
--- NOTE | 2016-12-02 15:00 | PN ---
Progress Note, Physician History of Present Illness: Pt seen and examined at bedside. He is awake and alert. He tolerated HD. - Current Medication List Current Medications: Active Medications Aspirin (Asa -) 81 mg PO DAILY [facility] Last Admin: 12/02/16 09:48 Dose: 81 mg Atorvastatin Calcium (Lipitor -) 80 mg PO HS [facility] Last Admin: 12/01/16 21:42 Dose: 80 mg Calcium Acetate (Phoslo -) 667 mg PO TIDCM [facility] Last Admin: 12/02/16 12:29 Dose: 667 mg Carvedilol (Coreg -) 12.5 mg PO BID [facility] Last Admin: 12/02/16 09:48 Dose: 12.5 mg Ferrous Sulfate (Feosol -) 325 mg PO DAILY [facility] Last Admin: 12/02/16 09:48 Dose: 325 mg Heparin Sodium (Porcine) (Heparin -) 5,000 unit SQ TID [facility] Last Admin: 12/02/16 13:42 Dose: 5,000 unit Cefazolin Sodium 1 gm/ (Dextrose) 50 mls @ 100 mls/hr IVPB DAILY [facility] Last Admin: 12/02/16 10:22 Dose: 100 mls/hr Insulin Aspart (Novolog Vial Sliding Scale -) 1 vial SQ ACHS [facility] PRN Reason: Protocol Last Admin: 12/02/16 11:18 Dose: Not Given Mupirocin (Bactroban 2% Cream -) 1 applic TP DAILY [facility] Last Admin: 12/02/16 10:45 Dose: 1 appful Nifedipine (Procardia Xl -) 30 mg PO DAILY [facility] Last Admin: 12/02/16 09:48 Dose: 30 mg Pantoprazole Sodium (Protonix -) 20 mg PO DAILY [facility] Last Admin: 12/02/16 09:48 Dose: 20 mg Pregabalin (Lyrica -) 50 mg PO TID [facility] Last Admin: 12/02/16 13:42 Dose: 50 mg Torsemide (Demadex -) 80 mg PO DAILY [facility] Last Admin: 12/02/16 10:16 Dose: 80 mg - Objective Vital Signs: Vital Signs Temperature 98.3 F 12/02/16 14:27 Pulse Rate 57 L 12/02/16 14:27 Respiratory Rate 18 12/02/16 14:27 Blood Pressure 122/62 12/02/16 14:27 O2 Sat by Pulse Oximetry (%) 100 12/02/16 09:00 Constitutional: Yes: Calm Eyes: Yes: Conjunctiva Clear HENT: Yes: Atraumatic Cardiovascular: Yes: S1, S2 Respiratory: Yes: CTA Bilaterally Gastrointestinal: Yes: Soft, Abdomen, Obese Genitourinary: Yes: WNL Musculoskeletal: Yes: Other (lymphedema) Edema: Yes Edema: LLE: 2+, RLE: 2+ Neurological: Yes: Oriented Psychiatric: Yes: Oriented Labs: CBC, BMP 12/02/16 06:15 12/02/16 06:15 Problem List - Problems (1) Anemia Code(s): D64.9 - ANEMIA, UNSPECIFIED Qualifiers: Anemia type: other cause Other causes of anemia: other cause, not classified Qualified Code(s): D64.89 - Other specified anemias (2) Chronic kidney disease Code(s): N18.9 - CHRONIC KIDNEY DISEASE, UNSPECIFIED Qualifiers: Chronic kidney disease stage: unspecified stage Qualified Code(s): N18.9 - Chronic kidney disease, unspecified (3) HTN (hypertension) Code(s): I10 - ESSENTIAL (PRIMARY) HYPERTENSION Assessment/Plan Current Medications Generic Name Dose Route Start Last Admin Trade Name Freq PRN Reason Stop Dose Admin Aspirin 81 mg 11/30/16 10:00 12/02/16 09:48 Asa - PO 81 mg DAILY [facility] Administration Atorvastatin Calcium 80 mg 11/29/16 22:00 12/01/16 21:42 Lipitor - PO 80 mg HS [facility] Administration Calcium Acetate 667 mg 11/30/16 08:00 12/02/16 12:29 Phoslo - PO 667 mg TIDCM [facility] Administration Carvedilol 12.5 mg 11/29/16 22:00 12/02/16 09:48 Coreg - PO 12.5 mg BID [facility] Administration Ferrous Sulfate 325 mg 11/30/16 10:00 12/02/16 09:48 Feosol - PO 325 mg DAILY [facility] Administration Heparin Sodium (Porcine) 5,000 unit 11/30/16 22:00 12/02/16 13:42 Heparin - SQ 5,000 unit TID [facility] Administration Cefazolin Sodium 1 gm/ 50 mls @ 100 mls/hr 11/30/16 10:00 12/02/16 10:22 Dextrose IVPB 100 mls/hr DAILY [facility] Administration Insulin Aspart 1 vial 11/29/16 22:00 12/02/16 11:18 Novolog Vial Sliding Scale - SQ Not Given ACHS [facility] Protocol Mupirocin 1 applic 11/30/16 18:30 12/02/16 10:45 Bactroban 2% Cream - TP 1 appful DAILY [facility] Administration Nifedipine 30 mg 11/30/16 10:00 12/02/16 09:48 Procardia Xl - PO 30 mg DAILY [facility] Administration Pantoprazole Sodium 20 mg 11/30/16 10:00 12/02/16 09:48 Protonix - PO 20 mg DAILY [facility] Administration Pregabalin 50 mg 11/29/16 22:00 12/02/16 13:42 Lyrica - PO 50 mg TID [facility] Administration Torsemide 80 mg 11/30/16 10:00 12/02/16 10:16 Demadex - PO 80 mg DAILY [facility] Administration Impression 1. ESRD 2. anemia 3. HTN 4. morbid obesity 5. CVA 6. hyperlipidemia 7. proteinuria - nephrotic Plan - pt to get ancef post HD 2 gm, 2 mg and 3 gm on TTS - called IR to removed tunnelled catheter - discussed with ID - discussed with PMD - will arrange for HD tomorrow in hospital - pt is scheduled for HD on Monday at [facility] - wound care to legs - decrease dose of lyrica Dr Win
--- NOTE | 2016-12-02 17:13 | PN ---
Teaching Attending Note Name of Resident: Raffy Parra ATTENDING PHYSICIAN STATEMENT I saw and evaluated the patient. I reviewed the resident's note and discussed the case with the resident. I agree with the resident's findings and plan as documented. SUBJECTIVE: No complaints. OBJECTIVE: Vital Signs Period Temp Pulse Resp BP Sys/Leon Pulse Ox Last 24 Hr 98.2 F-98.7 F 50-78 18-20 109-146/50-77 100-100 HEART: S1S2, RRR LUNGS: Clear ABDOMEN: Obese, soft, non-tender, non-distended, normal BS EXTREMITIES: 1+ edema with chronic changes both legs Current Medications Generic Name Dose Route Start Last Admin Trade Name Freq PRN Reason Stop Dose Admin Aspirin 81 mg 11/30/16 10:00 12/02/16 09:48 Asa - PO 81 mg DAILY [facility] Administration Atorvastatin Calcium 80 mg 11/29/16 22:00 12/01/16 21:42 Lipitor - PO 80 mg HS [facility] Administration Calcium Acetate 667 mg 11/30/16 08:00 12/02/16 12:29 Phoslo - PO 667 mg TIDCM [facility] Administration Carvedilol 12.5 mg 11/29/16 22:00 12/02/16 09:48 Coreg - PO 12.5 mg BID [facility] Administration Epoetin Lawrence 3,000 units 12/03/16 15:04 Epogen - IVPUSH 12/03/16 15:05 ONCE ONE Ferrous Sulfate 325 mg 11/30/16 10:00 12/02/16 09:48 Feosol - PO 325 mg DAILY [facility] Administration Heparin Sodium (Porcine) 5,000 unit 11/30/16 22:00 12/02/16 13:42 Heparin - SQ 5,000 unit TID [facility] Administration Heparin Sodium (Porcine) 1,000 unit 12/03/16 15:04 Heparin - IVPUSH 12/03/16 15:05 ONCE ONE Cefazolin Sodium 3 gm/ 50 mls @ 100 mls/hr 12/03/16 15:02 Dextrose IVPB 12/03/16 15:31 ONCE ONE Insulin Aspart 1 vial 11/29/16 22:00 12/02/16 11:18 Novolog Vial Sliding Scale - SQ Not Given ACHS [facility] Protocol Mupirocin 1 applic 11/30/16 18:30 12/02/16 10:45 Bactroban 2% Cream - TP 1 appful DAILY [facility] Administration Nifedipine 30 mg 11/30/16 10:00 12/02/16 09:48 Procardia Xl - PO 30 mg DAILY [facility] Administration Pantoprazole Sodium 20 mg 11/30/16 10:00 12/02/16 09:48 Protonix - PO 20 mg DAILY [facility] Administration Pregabalin 50 mg 12/03/16 10:00 Lyrica - PO DAILY [facility] Torsemide 80 mg 11/30/16 10:00 12/02/16 10:16 Demadex - PO 80 mg DAILY [facility] Administration ASSESSMENT AND PLAN: This is a 56 year old man with a history of stage 5 CKD, type 2 DM, HTN, gastric bypass, morbid obesity, osteomyelitis who presented to the ER for worsening creatinine. 1. ESRD with nephrotic range proteinuria - s/p HD 11/30, 12/01 - Plan for HD tomorrow - Scheduled for HD at [facility] starting 12/06 - Continue Demadex, PhosLo 2. Anemia secondary to CKD - Continue ferrous sulfate - Epogen with HD 3. Left 1st toe ulcer with osteomyelitis - Continue Ancef after HD - Tunneled catheter to be removed 4. Type 2 DM - Continue Novolog sliding scale 5. HTN - Continue Coreg, Procardia XL, Demadex 6. Hyperlipidemia - Continue Lipitor 7. Morbid obesity with BMI 47.5, history of sleeve gastrectomy
--- NOTE | 2016-12-02 19:02 | PN ---
Physical Exam: SUBJECTIVE: Patient seen and examined at bedside. NO acute events over night. OBJECTIVE: Vital Signs Period Temp Pulse Resp BP Sys/Leon Pulse Ox Last 24 Hr 98.2 F-98.7 F 57-78 18-20 112-146/50-77 100-100 GENERAL: The patient is awake, alert, and fully oriented, in no acute distress. HEAD: Normal with no signs of trauma. EYES: PERRL, extraocular movements intact, sclera anicteric, conjunctiva clear. No ptosis. ENT: Ears normal, nares patent, oropharynx clear without exudates, moist mucous membranes. NECK: Trachea midline, full range of motion, supple. LUNGS: Breath sounds equal, clear to auscultation bilaterally, no wheezes, no crackles, no accessory muscle use. HEART: Regular rate and rhythm, S1, S2 without murmur, rub or gallop. ABDOMEN: Soft, nontender, nondistended, normoactive bowel sounds, no guarding, no rebound, no hepatosplenomegaly, no masses. EXTREMITIES: 2+ pulses, warm, well-perfused, no edema. NEUROLOGICAL: Cranial nerves II through XII grossly intact. Normal speech, gait not observed. PSYCH: Normal mood, normal affect. SKIN: Warm, dry, normal turgor, no rashes or lesions noted Laboratory Results - last 24 hr 11/30/16 12/01/16 12/02/16 10:32 21:52 06:05 WBC RBC Hgb Hct MCV MCH MCHC RDW Plt Count MPV Sodium Potassium Chloride Carbon Dioxide Anion Gap BUN Creatinine POC Glucometer 187 109 Random Glucose Calcium Phosphorus Blood Type A POSITIVE Antibody Screen Negative Crossmatch See Detail 12/02/16 12/02/16 12/02/16 06:15 06:15 11:17 WBC 6.1 RBC 2.78 L Hgb 7.9 L Hct 23.9 L MCV 85.9 MCH 28.5 MCHC 33.1 RDW 14.2 Plt Count 169 MPV 9.9 Sodium 143 Potassium 3.7 Chloride 105 Carbon Dioxide 31 Anion Gap 7 L BUN 58 H Creatinine 5.6 H POC Glucometer 128 Random Glucose 96 Calcium 8.1 L Phosphorus 5.3 H D Blood Type Antibody Screen Crossmatch 12/02/16 17:18 WBC RBC Hgb Hct MCV MCH MCHC RDW Plt Count MPV Sodium Potassium Chloride Carbon Dioxide Anion Gap BUN Creatinine POC Glucometer 132 Random Glucose Calcium Phosphorus Blood Type Antibody Screen Crossmatch Active Medications Generic Name Dose Route Start Last Admin Trade Name Nataliia PRN Reason Stop Dose Admin Aspirin 81 mg 11/30/16 10:00 12/02/16 09:48 Asa - PO 81 mg DAILY [facility] Administration Atorvastatin Calcium 80 mg 11/29/16 22:00 12/01/16 21:42 Lipitor - PO 80 mg HS [facility] Administration Calcium Acetate 667 mg 11/30/16 08:00 12/02/16 17:32 Phoslo - PO 667 mg TIDCM [facility] Administration Carvedilol 12.5 mg 11/29/16 22:00 12/02/16 09:48 Coreg - PO 12.5 mg BID [facility] Administration Epoetin Lawrence 3,000 units 12/03/16 15:04 Epogen - IVPUSH 12/03/16 15:05 ONCE ONE Ferrous Sulfate 325 mg 11/30/16 10:00 12/02/16 09:48 Feosol - PO 325 mg DAILY [facility] Administration Heparin Sodium (Porcine) 5,000 unit 11/30/16 22:00 12/02/16 13:42 Heparin - SQ 5,000 unit TID [facility] Administration Heparin Sodium (Porcine) 1,000 unit 12/03/16 15:04 Heparin - IVPUSH 12/03/16 15:05 ONCE ONE Cefazolin Sodium 3 gm/ 50 mls @ 100 mls/hr 12/03/16 15:02 Dextrose IVPB 12/03/16 15:31 ONCE ONE Insulin Aspart 1 vial 11/29/16 22:00 12/02/16 17:20 Novolog Vial Sliding Scale - SQ Not Given ACHS [facility] Protocol Mupirocin 1 applic 11/30/16 18:30 12/02/16 10:45 Bactroban 2% Cream - TP 1 appful DAILY [facility] Administration Nifedipine 30 mg 11/30/16 10:00 12/02/16 09:48 Procardia Xl - PO 30 mg DAILY [facility] Administration Pantoprazole Sodium 20 mg 11/30/16 10:00 12/02/16 09:48 Protonix - PO 20 mg DAILY [facility] Administration Pregabalin 50 mg 12/03/16 10:00 Lyrica - PO DAILY [facility] Torsemide 80 mg 11/30/16 10:00 09/29/17 10:16 Demadex - PO 80 mg DAILY [facility] Administration ASSESSMENT/PLAN: 56 M with DM, Stroke, asthma, gastric bypass, CKD, and chronic osteomyelitis who presents from nephrology clinic for increased creatnine # CKD stage 5/ESRD - BUN/Cr 64/6.6 - Nephro consult: - Had hemodialysis today, tolerated well , will evaluate for hemodialysis tomorrow - Torsemide 80 mg PO daily - Calcium oxalate 667 po TIDCM [facility] - Monitor electrolytes -CBC, CMP in AM -will need placement for HD, papers sent to [facility] in [facility] # Chronic Osteomyelitis, - Ancef- continue 1g IVBP daily - Bactroban 2% cream 1 apl TP daily - F/U with Podiatry/Wound care # Normocytic anemia, likely 2/2 CKD - H/H 7.5/23 - Chk. EPO - Fe studies/B12/ Folic acid - Ferrous sulfat 325 mg po daily # HTN, - BB today 110-125/53-76 - continue home meds Torsemid 80 mg Po daily ,nivedipine ER 30 mg po daily, coreg 12.5 PO daily - continue to monitor BP # Protienuria , - Nephrotic - had HD today will evaluate again tomorrow # Asthma - C/W home meds # Hyperlipidimia , - Lipitor 80 mg po daily #DM - Not on any home meds - Chk. A1C -glucosuria +1 - FS/RAISS #Morbid Obesity -s/p gastric bypass - patient education # CVA - C/W Home meds # Dvt Ppx - Mod Risk, Heparin 5000 SQ Q8hr - GI: Protonix 20 mg daily # Dispo -admit to [facility] - pending placement for HD, papers sent to [facility] in [facility] Visit type - Emergency Visit Emergency Visit: Yes ED Registration Date: 11/29/16 Care time: The patient presented to the Emergency Department on the above date and was hospitalized for further evaluation of their emergent condition. - New Patient This patient is new to me today: No - Critical Care Critical Care patient: No - Discharge Referral Referred to [facility] Med P.C.: No
[2016-12-02] MEDS ORDERED: INSULIN (NOVOLOG) ASPART 100 UNITS/ML 10ML VIAL ONE (20:31)
[2016-12-02] MEDS: ATORVASTATIN CA 80 MG TABLET (FP) PO SCH (22:32)
[2016-12-03] MEDS: INSULIN SLIDING SCALE (NOVOLOG) 1 VIAL SQ SCH ×2 (06:32→12:55)
[2016-12-03] MEDS: HEPARIN NA (PORCINE) 5,000 UNITS/ML 1ML VIAL SQ SCH ×2 (06:33→14:51)
[2016-12-03] MEDS ORDERED: HEPARIN NA (PORCINE) 5,000 UNITS/ML 1ML VIAL IVPUSH ONE (07:00)
[2016-12-03] MEDS ORDERED: EPOETIN ALFA 3,000 UNIT/1 ML ML IVPUSH ONE (07:00)
[2016-12-03] MEDS ORDERED: CEFAZOLIN 3 GM in DEXTROSE 5%-WATER - 100 ML IVPB ONE (07:00)
[2016-12-03] MEDS ORDERED: INSULIN (NOVOLOG) ASPART 100 UNITS/ML 10ML VIAL ONE (07:12)
[2016-12-03] MEDS: CALCIUM ACETATE 667 MG CAPSULE (FP) PO SCH ×2 (07:56→12:57)
[2016-12-03 09:29] LABS: MCH 28.2 pg (25.7-33.7); MCHC 32.9 g/dl (32.0-35.9); MEAN CELL VOLUME 85.9 fl (80-96); MEAN PLT VOLUME 9.9 fl (7.5-11.1); PLATELET COUNT 186 K/MM3 (134-434); RDW 13.8 % (11.9-15.9); WHITE BLOOD COUNT 7.8 K/mm3 (4.0-10.0)
[2016-12-03] MEDS ORDERED: PREGABALIN 50 MG CAPSULE PO SCH (10:00)
[2016-12-03 10:07] LABS: ANION GAP 8 (8-16); CALCIUM 8.7 mg/dL (8.5-10.1); CO2 28 mmol/L (21-32); CREATININE 6.2 mg/dL (0.7-1.3); GLUCOSE,RANDOM 162 mg/dL (74-106)
--- NOTE | 2016-12-03 10:59 | PN ---
Teaching Attending Note Name of Resident: Raffy Parra ATTENDING PHYSICIAN STATEMENT I saw and evaluated the patient. I reviewed the resident's note and discussed the case with the resident. I agree with the resident's findings and plan as documented. SUBJECTIVE: Patient has no complaints. OBJECTIVE: Vital Signs Period Temp Pulse Resp BP Sys/Leon Pulse Ox Last 24 Hr 98.1 F-98.4 F 57-69 18-20 114-139/58-77 96 HEART: S1S2, RRR LUNGS: Clear ABDOMEN: Obese, soft, non-tender, non-distended, normal BS EXTREMITIES: 1+ edema with chronic changes both legs Current Medications Generic Name Dose Route Start Last Admin Trade Name Freq PRN Reason Stop Dose Admin Aspirin 81 mg 11/30/16 10:00 12/02/16 09:48 Asa - PO 81 mg DAILY [facility] Administration Atorvastatin Calcium 80 mg 11/29/16 22:00 12/02/16 22:32 Lipitor - PO 80 mg HS [facility] Administration Calcium Acetate 667 mg 11/30/16 08:00 12/02/16 17:32 Phoslo - PO 667 mg TIDCM [facility] Administration Carvedilol 12.5 mg 11/29/16 22:00 12/02/16 22:32 Coreg - PO 12.5 mg BID [facility] Administration Ferrous Sulfate 325 mg 11/30/16 10:00 12/02/16 09:48 Feosol - PO 325 mg DAILY [facility] Administration Heparin Sodium (Porcine) 5,000 unit 11/30/16 22:00 12/03/16 06:33 Heparin - SQ 5,000 unit TID [facility] Administration Insulin Aspart 1 vial 11/29/16 22:00 12/03/16 06:32 Novolog Vial Sliding Scale - SQ Not Given ACHS [facility] Protocol Mupirocin 1 applic 11/30/16 18:30 12/02/16 10:45 Bactroban 2% Cream - TP 1 appful DAILY [facility] Administration Nifedipine 30 mg 11/30/16 10:00 12/02/16 09:48 Procardia Xl - PO 30 mg DAILY [facility] Administration Pantoprazole Sodium 20 mg 11/30/16 10:00 12/02/16 09:48 Protonix - PO 20 mg DAILY [facility] Administration Pregabalin 50 mg 12/03/16 10:00 Lyrica - PO DAILY [facility] Torsemide 80 mg 11/30/16 10:00 12/02/16 10:16 Demadex - PO 80 mg DAILY [facility] Administration ASSESSMENT AND PLAN: This is a 56 year old man with a history of stage 5 CKD, type 2 DM, HTN, gastric bypass, morbid obesity, osteomyelitis who presented to the ER for worsening creatinine. 1. ESRD with nephrotic range proteinuria - s/p HD 11/30, 12/01 - HD today - Scheduled for HD at [facility] starting 12/06 - Continue Demadex, PhosLo 2. Anemia secondary to CKD - Continue ferrous sulfate - Epogen with HD 3. Left 1st toe ulcer with osteomyelitis - Continue Ancef after HD - Tunneled catheter to be removed 4. Type 2 DM - Continue Novolog sliding scale 5. HTN - Continue Coreg, Procardia XL, Demadex 6. Hyperlipidemia - Continue Lipitor 7. Morbid obesity with BMI 46.1, history of sleeve gastrectomy 8. Disposition - Plan for discharge today after HD
[2016-12-03] MEDS ORDERED: PT OWN MED DRAWER 7, Y5N ONE (11:15)
--- NOTE | 2016-12-03 12:04 | DS ---
Physical Exam: SUBJECTIVE: Patient seen and examined at bed side. Tolerated dialysis well today. denies any fever, chills, N/V/D/C, CP, SOB. Plan to discharged home with dialysis at [facility]. OBJECTIVE: Vital Signs Period Temp Pulse Resp BP Sys/Leon Pulse Ox Last 24 Hr 98.1 F-98.4 F 57-69 18-20 114-142/58-77 96 PHYSICAL EXAM GENERAL: The patient is awake, alert, and fully oriented, in no acute distress. HEAD: Normal with no signs of trauma. EYES: conjunctiva clear. ENT: moist mucous membranes. LUNGS: Breath sounds equal, clear to auscultation bilaterally, no wheezes, no crackles, no accessory muscle use. HEART: Regular rate and rhythm, S1, S2 without murmur, rub or gallop. ABDOMEN: Soft, nontender, nondistended, normoactive bowel sounds, no guarding, no rebound. EXTREMITIES: warm, well-perfused, no edema. NEUROLOGICAL: Normal speech, gait not observed. SKIN: Warm, dry, no rashes , peripheral vascular disease with chronic lymph edema. LABS Laboratory Results - last 24 hr 12/02/16 12/02/16 12/03/16 17:18 22:31 06:32 WBC RBC Hgb Hct MCV MCH MCHC RDW Plt Count MPV Sodium Potassium Chloride Carbon Dioxide Anion Gap BUN Creatinine POC Glucometer 132 196 147 Random Glucose Calcium 12/03/16 12/03/16 09:10 09:10 WBC 7.8 RBC 2.88 L Hgb 8.1 L Hct 24.7 L MCV 85.9 MCH 28.2 MCHC 32.9 RDW 13.8 Plt Count 186 MPV 9.9 Sodium 140 Potassium 3.9 Chloride 104 Carbon Dioxide 28 Anion Gap 8 BUN 63 H Creatinine 6.2 H POC Glucometer Random Glucose 162 H D Calcium 8.7 HOSPITAL COURSE: Date of Admission:11/29/16 Date of Discharge: 12/03/16 is a 56 year old man with a history of stage 5 CKD, type 2 DM, HTN, gastric bypass, morbid obesity, osteomyelitis who presented to the ER for worsening creatinine of 7 . He has ESRD with nephrotic range proteinuria, 3 dialysis 11/30, 12/01, 12/02 was done at the hospital , all tolerated well.Scheduled for HD at [facility] / starting 12/06, will Continue Demadex, PhosLo. He will continue Abx ancef 2 g Monday, 2 gm Mon, 3 gm Monday. Tunnle cath was removed after discussion with ID. Patient had anemia most likely secondary to ESRD, he will continue to use ferrous sulfate and agree with Dr Win to take Epogen with dialysis. In term of Left 1st toe ulcer with osteomyelitis, he will continue the Ancef as mentioned. In term of HTN he will Continue Coreg, Procardia XL, Demadex. Continue lipitor for HLD. Patient had morbid obesity with BMI 47.5, with history of sleeve gastrectomy, he was educated about [place] diet and loosing weight. Lyrica dose was decreased to 50 mg per Nephrology. Patient will discharged home and will continue dialysis on [facility]. Patient will return to the ED if he developed any fever, chills, sever anemia or his symptoms worsen. Minutes to complete discharge: 30 Discharge Summary Reason For Visit: SERUM CREATNINE RAISED Current Active Problems Creatinine elevation (Chronic) Condition: Stable - Instructions Diet, Activity, Other Instructions: You have been admitted to the hospital due to end stage renal disease with Cr of 7 , you have received dialysis 3 times during hospital course, you will continue hemodialysis in [facility] facility as out patient. Please resume your home medication as prescribed. Your Lyrica dose has been decreased to 50 mg daily. Continue the wound care for legs You have been scheduled for HD on Monday at [facility]. You will continue the ABX with dose of 2 gm on Monday, 2 gm on and 3 gm on Monday. Please resume your daily activity as tolerated. Please follow diabetic,low sodium and kidney diet Please follow up with your primary care physician within a week. Please follow up with within one week. Please return to emergency room if you developed any fever, chills, sever anemia (heart racing, dizziness, lightheadedness) or your symptoms worsen. Referrals: Brigitte Win MD [Staff Physician] - Disposition: HOME - Home Medications Comprehensive Discharge Medication List: Ambulatory Orders Omeprazole [Prilosec (RX)] 20 mg PO PRN PRN 08/13/14 Nifedipine ER [Procardia XL -] 30 mg PO DAILY #30 tab.er.24 08/13/15 Atorvastatin Ca [Lipitor] 80 mg PO HS 05/24/16 Calcium Acetate [Phoslo -] 667 mg PO TIDCM 05/24/16 Carvedilol 12.5 mg PO BID 05/24/16 Pregabalin [Lyrica -] 50 mg PO TID 05/24/16 Torsemide 80 mg PO DAILY 05/24/16 Ferrous Sulfate [Feosol] 1 tab PO DAILY 08/02/16 Albuterol Sulfate [Proair Respiclick] 90 mcg IH BID 11/13/16 Cholecalciferol (Vitamin D3) [Vitamin D3] 2,000 unit PO DAILY 11/13/16 Aspirin [ASA -] 81 mg PO DAILY #30 tab.chew 11/15/16 This patient is new to me today: No Emergency Visit: Yes ED Registration Date: 11/29/16 Care time: The patient presented to the Emergency Department on the above date and was hospitalized for further evaluation of their emergent condition. Critical Care patient: No - Discharge Referral Referred to [facility] Med P.C.: No
[2016-12-03] MEDS: TORSEMIDE 20 MG TABLET (FP) PO SCH (12:50)
[2016-12-03 14:35] VITALS: BP 124/64; PULSE 64; TEMP 98.5
[2016-12-03] MEDS: ASPIRIN 81 MG CHEWABLE TABLETS PO SCH (14:49)
[2016-12-03] MEDS: FERROUS SO4 325 MG TABLET (FP) PO SCH (14:49)
[2016-12-03] MEDS: NIFEdipine E.R. 30 MG TABLET (FP) PO SCH (14:50)
[2016-12-03] MEDS: CARVEDILOL 12.5 MG TABLET (FP) PO SCH (14:50)
[2016-12-03] MEDS: PANTOPRAZOLE 20 MG TABLET (FP) PO SCH (14:50)
[2016-12-03] MEDS: MUPIROCIN CA 2% TOPICAL CREAM 15 GM TUBE TP SCH (14:57)
--- NOTE | 2016-12-03 15:44 | PN ---
Progress Note, Physician History of Present Illness: Pt seen and examined at bedside. He is awake and alert. He tolerated HD today. - Current Medication List Current Medications: Active Medications Aspirin (Asa -) 81 mg PO DAILY [facility] Last Admin: 12/03/16 14:49 Dose: 81 mg Atorvastatin Calcium (Lipitor -) 80 mg PO HS [facility] Last Admin: 12/02/16 22:32 Dose: 80 mg Calcium Acetate (Phoslo -) 667 mg PO TIDCM [facility] Last Admin: 12/03/16 12:57 Dose: 667 mg Carvedilol (Coreg -) 12.5 mg PO BID [facility] Last Admin: 12/03/16 14:50 Dose: 12.5 mg Ferrous Sulfate (Feosol -) 325 mg PO DAILY [facility] Last Admin: 12/03/16 14:49 Dose: 325 mg Heparin Sodium (Porcine) (Heparin -) 5,000 unit SQ TID [facility] Last Admin: 12/03/16 14:51 Dose: 5,000 unit Insulin Aspart (Novolog Vial Sliding Scale -) 1 vial SQ ACHS [facility] PRN Reason: Protocol Last Admin: 12/03/16 12:55 Dose: Not Given Mupirocin (Bactroban 2% Cream -) 1 applic TP DAILY [facility] Last Admin: 12/03/16 14:57 Dose: 1 appful Nifedipine (Procardia Xl -) 30 mg PO DAILY [facility] Last Admin: 12/03/16 14:50 Dose: 30 mg Pantoprazole Sodium (Protonix -) 20 mg PO DAILY [facility] Last Admin: 12/03/16 14:50 Dose: 20 mg Pregabalin (Lyrica -) 50 mg PO DAILY [facility] Last Admin: 12/03/16 14:50 Dose: 50 mg Torsemide (Demadex -) 80 mg PO DAILY [facility] Last Admin: 12/03/16 12:50 Dose: 80 mg - Objective Vital Signs: Vital Signs Temperature 98.5 F 12/03/16 14:33 Pulse Rate 64 12/03/16 14:33 Respiratory Rate 18 12/03/16 14:33 Blood Pressure 124/64 12/03/16 14:33 O2 Sat by Pulse Oximetry (%) 97 12/03/16 09:00 Constitutional: Yes: Calm Eyes: Yes: Conjunctiva Clear HENT: Yes: Atraumatic Neck: Yes: Supple Cardiovascular: Yes: S1, S2 Respiratory: Yes: CTA Bilaterally Gastrointestinal: Yes: Normal Bowel Sounds, Soft, Abdomen, Obese Genitourinary: Yes: WNL Edema: Yes Edema: LLE: 2+, RLE: 2+ Neurological: Yes: Oriented Psychiatric: Yes: Oriented Labs: CBC, BMP 12/03/16 09:10 12/03/16 09:10 Problem List - Problems (1) Anemia Code(s): D64.9 - ANEMIA, UNSPECIFIED Qualifiers: Anemia type: other cause Other causes of anemia: other cause, not classified Qualified Code(s): D64.89 - Other specified anemias (2) Chronic kidney disease Code(s): N18.9 - CHRONIC KIDNEY DISEASE, UNSPECIFIED Qualifiers: Chronic kidney disease stage: unspecified stage Qualified Code(s): N18.9 - Chronic kidney disease, unspecified (3) HTN (hypertension) Code(s): I10 - ESSENTIAL (PRIMARY) HYPERTENSION Assessment/Plan Current Medications Generic Name Dose Route Start Last Admin Trade Name Freq PRN Reason Stop Dose Admin Aspirin 81 mg 11/30/16 10:00 12/03/16 14:49 Asa - PO 81 mg DAILY [facility] Administration Atorvastatin Calcium 80 mg 11/29/16 22:00 12/02/16 22:32 Lipitor - PO 80 mg HS [facility] Administration Calcium Acetate 667 mg 11/30/16 08:00 12/03/16 12:57 Phoslo - PO 667 mg TIDCM [facility] Administration Carvedilol 12.5 mg 11/29/16 22:00 12/03/16 14:50 Coreg - PO 12.5 mg BID [facility] Administration Ferrous Sulfate 325 mg 11/30/16 10:00 12/03/16 14:49 Feosol - PO 325 mg DAILY [facility] Administration Heparin Sodium (Porcine) 5,000 unit 11/30/16 22:00 12/03/16 14:51 Heparin - SQ 5,000 unit TID [facility] Administration Insulin Aspart 1 vial 11/29/16 22:00 12/03/16 12:55 Novolog Vial Sliding Scale - SQ Not Given ACHS [facility] Protocol Mupirocin 1 applic 11/30/16 18:30 12/03/16 14:57 Bactroban 2% Cream - TP 1 appful DAILY [facility] Administration Nifedipine 30 mg 11/30/16 10:00 12/03/16 14:50 Procardia Xl - PO 30 mg DAILY [facility] Administration Pantoprazole Sodium 20 mg 11/30/16 10:00 12/03/16 14:50 Protonix - PO 20 mg DAILY [facility] Administration Pregabalin 50 mg 12/03/16 10:00 12/03/16 14:50 Lyrica - PO 50 mg DAILY [facility] Administration Torsemide 80 mg 11/30/16 10:00 12/03/16 12:50 Demadex - PO 80 mg DAILY [facility] Administration Impression 1. ESRD 2. anemia 3. HTN 4. morbid obesity 5. CVA 6. hyperlipidemia 7. proteinuria - nephrotic Plan - HD today - cont with ancef - pt to get ancef post HD 2 gm, 2 mg and 3 gm on TTS - tunnelled cath removed yesterday - will follow - pt is scheduled for HD on Monday at [facility] - wound care to legs Dr Win
--- NOTE | 2016-12-06 09:52 | EKG ---
Test Reason : Blood Pressure : / mmHG Vent. Rate : 055 BPM Atrial Rate : 055 BPM P-R Int : 220 ms QRS Dur : 094 ms QT Int : 442 ms P-R-T Axes : 041 267 037 degrees QTc Int : 422 ms SINUS BRADYCARDIA WITH 1ST DEGREE A-V BLOCK RIGHT SUPERIOR AXIS DEVIATION ANTERIOR INFARCT , AGE UNDETERMINED POOR R WAVE PROGRESSION ABNORMAL ECG WHEN COMPARED WITH ECG OF 13-NOV-2016 17:35, LIKELY NO SIGNFICANT CHANGES WERE SEEN Confirmed by PIERRE RIOS MD ([id number]) on 12/06/2016 9:51:48 AM Referred By: Confirmed By:PIERRE RIOS MD
== END 2016-12-03 16:13 | disposition home or self-care (01) | DRG 682 ==
LOC: JER 13:11 → JERBED 16:32 → J7W 21:32
PROVIDERS: ADMIT Internal Medicine; ATTEND Internal Medicine
PROC: 5A1D60Z (ICD-10-PCS; principal; 2016-12-01)
PROC: 30233H1 Transfusion of Nonautologous Whole Blood into Peripheral Vein, Percutaneous Approach (ICD-10-PCS; 2016-12-01)
DX: I12.0 Hypertensive chronic kidney disease with stage 5 chronic kidney disease or end stage renal disease (principal); N18.6 End stage renal disease; M86.671 Other chronic osteomyelitis, right ankle and foot; Z68.42 Body mass index [BMI] 45.0-49.9, adult; D63.1 Anemia in chronic kidney disease; E66.01 Morbid (severe) obesity due to excess calories; Z86.73 Personal history of transient ischemic attack (TIA), and cerebral infarction without residual deficits; Z98.84 Bariatric surgery status; E11.22 Type 2 diabetes mellitus with diabetic chronic kidney disease; J44.9 Chronic obstructive pulmonary disease, unspecified; G62.9 Polyneuropathy, unspecified; I25.10 Atherosclerotic heart disease of native coronary artery without angina pectoris; L97.519 Non-pressure chronic ulcer of other part of right foot with unspecified severity; D72.1 Eosinophilia; R21 Rash and other nonspecific skin eruption; E78.5 Hyperlipidemia, unspecified; Z99.2 Dependence on renal dialysis
CPT/HCPCS: 11042; 36415; 36430; 36589; 71010-TC; 80048; 80053; 81003; 81015; 82607; 82668; 82728; 82746; 83036; 83540; 83550; 83735; 84100; 85025; 85027; 85651; 86140; 86850; 86900; 86901; 86922; 90688; 93005; 93010; 96365; 99283-25; G0008; J0885; J1644; P9038; P9058

== ENCOUNTER 2017-04-18 13:29 | Inpatient (IN) | payer OTHER ==
--- NOTE | 2017-04-18 15:27 | PDOC ---
Attending Attestation - Resident Resident Name: Enrique Johnson - ED Attending Attestation I have performed the following: I have examined & evaluated the patient, The case was reviewed & discussed with the resident, I agree w/resident's findings & plan, Exceptions are as noted - HPI HPI: 04/18/17 15:25 56y M hx of ESRD (,,, last dialysis today), osteo in L 1st toe, was at wound care being evaluated and the pt was sent to the ED for evaluation and possible admission. No fever/chills, no cp, n/v, abd pain. 04/18/17 16:57 pts foot exam was hyperemic, warm to the touch cap refill ~2 sec to ~2.5 sec +multiple ulcers on her 1st and 2nd toe very weak pulses suspect PAD, will obtain arterial duplex per dr. johnson, requets admission for further managment - Physicial Exam PE: 04/20/17 11:37 see above - Medical Decision Making 04/20/17 11:37 see above
--- NOTE | 2017-04-18 15:37 | PDOC ---
History of Present Illness - General Chief Complaint: Wound Stated Complaint: WOUND (PCP SENT FOR ADMIN) Time Seen by Provider: 04/18/17 15:07 - History of Present Illness Initial Comments: 04/18/17 18:17 The patient is a 56 year old male with a history of ESRD, DM, PVD, Osteomylitis who presents from wound clinic for admission for a left foot ulcer. The patient reports a chronic left big toe ulcer that has previously been treated for osteomylitis. While in wound clinic today, he was noted to have deminished cap refill and diminished pulses in the left foot and was sent for admission for evaluation of possible arterial occulsion and iv antibiotics. The patient reports worsening pain over the past 2 days in his left foot, but otherwise denies fevers, chills, SOB, chest pain, abdominal pain nausea, vomiting, or changes with urination or bowel movements. Past History - Past Medical History Allergies/Adverse Reactions: Allergies Allergy/AdvReac Type Severity Reaction Status Date / Time fish derived Allergy Severe Hives Verified 04/18/17 13:44 Shellfish Allergy Severe Verified 04/18/17 13:44 sulfamethoxazole Allergy Severe Swelling Verified 04/18/17 13:44 [From Bactrim DS] trimethoprim Allergy Severe Swelling Verified 04/18/17 13:44 [From Bactrim DS] Home Medications: Ambulatory Orders Omeprazole [Prilosec (RX)] 20 mg PO PRN PRN 08/13/14 Nifedipine ER [Procardia XL -] 30 mg PO DAILY #30 tab.er.24 08/13/15 Atorvastatin Ca [Lipitor] 80 mg PO HS 05/24/16 Calcium Acetate [Phoslo -] 667 mg PO TIDCM 05/24/16 Carvedilol 12.5 mg PO BID 05/24/16 Torsemide 80 mg PO DAILY 05/24/16 Ferrous Sulfate [Feosol] 1 tab PO DAILY 08/02/16 Albuterol Sulfate [Proair Respiclick] 90 mcg IH BID 11/13/16 Cholecalciferol (Vitamin D3) [Vitamin D3] 2,000 unit PO DAILY 11/13/16 Aspirin [ASA -] 81 mg PO DAILY #30 tab.chew 11/15/16 Pregabalin [Lyrica -] 50 mg PO DAILY #30 capsule MDD 50 mg 12/03/16 Unobtainable 04/18/17 Anemia: Yes Asthma: Yes Cancer: No Cardiac Disorders: No (ANG[place]) CVA: Yes COPD: Yes CHF: No Dementia: No Diabetes: Yes Dialysis: Yes (tu,thr,sat lt arm fistula) GI Disorders: No Disorders: No HTN: Yes Hypercholesterolemia: Yes Liver Disease: No Seizures: No Thyroid Disease: No - Surgical History Abdominal Surgery: Yes (gastric bypass 05/05/14) Appendectomy: No Cardiac Surgery: No Cholecystectomy: No Lung Surgery: No Neurologic Surgery: No Orthopedic Surgery: No - Immunization History Immunization Up to Date: Yes - Suicide/Smoking/Psychosocial Hx Smoking Status: No Smoking History: Never smoked Have you smoked in the past 12 months: No Number of Cigarettes Smoked Daily: 0 Information on smoking cessation initiated: No Hx Alcohol Use: No Drug/Substance Use Hx: No Substance Use Type: None Hx Substance Use Treatment: No Review of Systems - Review of Systems Comments:: 04/18/17 18:41 Constitutional: No fevers, chills, fatigue, malaise HEENT: No Rhinorrhea, nasal congestion, visual changes Cardiovascular: No chest pain, syncope, palpitations, lightheadedness Respiratory: No Cough, SOB, Hemoptysis, Gastrointestinal: No Abdominal pain, Nausea, Vomiting, Constipation, Diarrhea, Melena Genitourinary: No Dysuria, Frequency, Urgency, Hesitancy, Hematuria, Flank pain Musculoskeletal: Left foot pain. No Myalgia, arthralgia Skin: No rashes, itching, bruising, pallor Neurologic: No Headache, Dizziness, Numbness, Weakness, or Tingling Psychiatric: No Hallucinations. No SI or HI *Physical Exam - Vital Signs Last Vital Signs Temp Pulse Resp BP Pulse Ox 98.3 F 98 H 18 140/74 100 04/18/17 13:45 04/18/17 13:45 04/18/17 13:45 04/18/17 13:45 04/18/17 13:45 - Physical Exam Comments: 04/18/17 18:42 General Appearance: Nourished. No Apparent Distress HEENT: EOMI, CARRIE. No Pharyngeal Erythema, Tonsillar Exudate, Tonsillar Erythema Neck: No Cervical Lymphadenopathy Respiratory/Chest: Lungs Clear, Normal Breath Sounds. No Crackles, Rales, Rhonchi, Wheezing Cardiovascular: Regular Rhythm, Regular Rate. No Murmur, Gallops, Rubs Gastrointestinal/Abdominal: Normal Bowel Sounds, Soft. No Guarding, Rebound, Tenderness Musculoskeletal: No CVA Tenderness Extremity: Decreased Capillary refill in the left foot with an ulcer to the 1st toe and 2nd toe. Diminished but palpable dp pulses in the left foot. Normal Capillary Refill of the right foot Integumentary: Normal Color, Dry, Warm Neurologic: Fully Oriented, Alert, Normal Mood/Affect, Normal Response, ED Treatment Course - LABORATORY CBC & Chemistry Diagram: 04/18/17 18:00 04/18/17 18:00 Medical Decision Making - Medical Decision Making 04/18/17 18:44 The patient is a 56 year old male with a history of ESRD, DM, PVD, Osteomylitis who presents from wound clinic for admission for a left foot ulcer. Differential includes but is not limited to: PVD, Osteomylitis, Wound infection , ischemia, metabolic derangement. Given the patient's physical exam it is likely his symptoms are due to a wound infection. We will obtain a cbc, cmp, coags, plain films and arterial doppler to evaluate for other etiologies. We will treat the patient with vanc and zosyn here in the ED and continue to monitor and reassess. 04/18/17 20:22 CBC is unremarkable. CMP demonstrates known elevated creatinine. Arterial doppler demonstrates decrease flow in the left leg as read by our radiologist. We discussed the case with the hospitalist team who accepted the patient for admission and recommended heparin drip. We discussed the case with Dr. Rosales who has been made aware of the case. *DC/Admit/Observation/Transfer Diagnosis at time of Disposition: Stasis edema with ulcer of left lower extremity, PVD (peripheral vascular disease) - Discharge Dispostion Condition at time of disposition: Guarded Admit: Yes - Referrals Referrals: Tashia Cadet MD [Primary Care Provider] - - Patient Instructions - Post Discharge Activity
[2017-04-18] MEDS ORDERED: PIPERACILLIN/TAZOB 3.375 GM 50 ML IVPB ONE (17:02)
[2017-04-18] MEDS ORDERED: VANCOMYCIN 1,250 MG in DEXTROSE 5%-WATER - 250 ML IVPB ONE ×2 (17:02→18:30)
[2017-04-18] MEDS ORDERED: PIPERACILLIN/TAZOB 3.375 GM 3.375 GM/50 ML BAG IVPB ONE (18:25)
[2017-04-18 18:28] LABS: BASO % 1.3 % (0-2.0); HEMATOCRIT 38.4 % (35.4-49); HEMOGLOBIN 12.6 GM/dL (11.7-16.9); LYMPH % 15.7 % (8-40); MCH 30.3 pg (25.7-33.7); MCHC 32.8 g/dl (32.0-35.9); MEAN CELL VOLUME 92.5 fl (80-96); PLATELET COUNT 187 K/MM3 (134-434); RBC 4.15 M/mm3 (4.00-5.60); RDW 17.7 % (11.9-15.9); WHITE BLOOD COUNT 8.3 K/mm3 (4.0-10.0)
[2017-04-18 18:47] LABS: INR 1.16 (0.82-1.09); PROTHROMBIN TIME (PATIENT) 13.1 SEC (9.98-11.88)
[2017-04-18 18:50] LABS: ACTIVATED PTT 30.1 SECONDS (26.9-34.4)
[2017-04-18 19:06] LABS: ALBUMIN 3.5 g/dl (3.4-5.0); ANION GAP 8 (8-16); BLOOD UREA NITROGEN 31 mg/dL (7-18); CALCIUM 8.1 mg/dL (8.5-10.1); CHLORIDE 100 mmol/L (98-107); CO2 28 mmol/L (21-32); CREATININE 5.9 mg/dL (0.7-1.3); GLUCOSE,RANDOM 139 mg/dL (74-106); POTASSIUM 4.4 mmol/L (3.5-5.1); SGOT/AST 22 U/L (15-37); SODIUM 136 mmol/L (136-145)
[2017-04-18 19:12] LABS: ALK PHOS 56 U/L (45-117); BILIRUBIN,TOTAL 0.9 mg/dL (0.2-1.0); SGPT/ALT 23 U/L (12-78); TOT PROT 7.8 g/dl (6.4-8.2)
[2017-04-18] MEDS ORDERED: HEPARIN NA (PORCINE) 5,000 UNITS/ML 1ML VIAL IVPUSH PRN ×2 (20:04)
[2017-04-18] MEDS ORDERED: HEPARIN - 25,000 UNIT in SODIUM CHLORIDE 495 ML IV SCH (20:15)
--- NOTE | 2017-04-18 21:39 | PN ---
Teaching Attending Note Name of Resident: Jeremy Frederick ATTENDING PHYSICIAN STATEMENT I saw and evaluated the patient. I reviewed the resident's note and discussed the case with the resident. I agree with the resident's findings and plan as documented. SUBJECTIVE: 56 yo M with hx. of ESRD HD (T, TH, S), DM, PVD, gastric Bypass 05/05/14 Osteomyelitis who presented from wound care clinic with ulceration of his left first and second digit. Also while he was in clinic he was noted to have decreased pulses. States has had pain in the left foot, since two days ago and reports decreased sensation slightly over left foot. Notes no chest pain or pressure. No shortness of breath. No fevers, chills or N/V/D. PCP: Dr. Fermin bowen [facility] OBJECTIVE: Physical: VS: Vital Signs Period Temp Pulse Resp BP Sys/Leon Pulse Ox Last 24 Hr 98.3 F 98-114 18 122-140/69-74 97-100 GEN: Morbidly Obese Male, Resting in bed, AA0X3 HEENT: NCAT, PERRL, Throat without erythema or exudates CARD: RRR S1, S2 RESP: CTAB ABD: BSx4, NTD to palpation EXT: L 2nd toe with 1 cm ulcers, 1st digit with 1x2cm blister, Non-Palpable pulse on L. foot, warm to touch with erythema to mid-thigh. R. foot - C/C/E CBCD WBC 8.3 K/mm3 (4.0-10.0) 04/18/17 18:00 RBC 4.15 M/mm3 (4.00-5.60) D 04/18/17 18:00 Hgb 12.6 GM/dL (11.7-16.9) D 04/18/17 18:00 Hct 38.4 % (35.4-49) D 04/18/17 18:00 MCV 92.5 fl (80-96) 04/18/17 18:00 MCHC 32.8 g/dl (32.0-35.9) 04/18/17 18:00 RDW 17.7 % (11.9-15.9) H D 04/18/17 18:00 Plt Count 187 K/MM3 (134-434) 04/18/17 18:00 MPV 9.0 fl (7.5-11.1) 04/18/17 18:00 CMP Sodium 136 mmol/L (136-145) 04/18/17 18:00 Potassium 4.4 mmol/L (3.5-5.1) 04/18/17 18:00 Chloride 100 mmol/L (98-107) 04/18/17 18:00 Carbon Dioxide 28 mmol/L (21-32) 04/18/17 18:00 Anion Gap 8 (8-16) 04/18/17 18:00 BUN 31 mg/dL (7-18) H D 04/18/17 18:00 Creatinine 5.9 mg/dL (0.7-1.3) H 04/18/17 18:00 Creat Clearance w eGFR 9.97 (>60) 04/18/17 18:00 Calcium 8.1 mg/dL (8.5-10.1) L 04/18/17 18:00 Total Bilirubin 0.9 mg/dL (0.2-1.0) D 04/18/17 18:00 AST 22 U/L (15-37) 04/18/17 18:00 ALT 23 U/L (12-78) D 04/18/17 18:00 Alkaline Phosphatase 56 U/L (45-117) D 04/18/17 18:00 Total Protein 7.8 g/dl (6.4-8.2) D 04/18/17 18:00 Albumin 3.5 g/dl (3.4-5.0) D 04/18/17 18:00 DUPLEX L. EXT: Diminished flow at level of L. Polpiteal artery. L. posterior tibial artery could not be adequetly EKG- NSR 84 QtC 451 Ambulatory Orders Omeprazole [Prilosec (RX)] 20 mg PO PRN PRN 08/13/14 Nifedipine ER [Procardia XL -] 30 mg PO DAILY #30 tab.er.24 08/13/15 Atorvastatin Ca [Lipitor] 80 mg PO HS 05/24/16 Calcium Acetate [Phoslo -] 667 mg PO TIDCM 05/24/16 Carvedilol 12.5 mg PO BID 05/24/16 Torsemide 80 mg PO DAILY 05/24/16 Ferrous Sulfate [Feosol] 1 tab PO DAILY 08/02/16 Albuterol Sulfate [Proair Respiclick] 90 mcg IH BID 11/13/16 Cholecalciferol (Vitamin D3) [Vitamin D3] 2,000 unit PO DAILY 11/13/16 Aspirin [ASA -] 81 mg PO DAILY #30 tab.chew 11/15/16 Pregabalin [Lyrica -] 50 mg PO DAILY #30 capsule MDD 50 mg 12/03/16 Unobtainable 04/18/17 ASSESSMENT AND PLAN: 56 yo M with hx. of ESRD HD (T, TH, S), DM, PVD, gastric Bypass 05/05/14 Osteomyelitis who presented from wound care clinic with ulceration of his left first and second digit, being admitted for Ischemia of L. foot and L. foot cellulitis, possibel Osteomyleitis 1.) Ischemia of L. Foot - Heparin Gtt - Goal PTT 60-80 - Vasc. Consulted - NPO after midnight - Type & Screen - Coags - IVF 2.) L. Foot Cellulitis/Osteomyelitis - ESR/CRP - MRI L. Foot when able - Vanco/Zosyn- Chk. levels dose w HD - ID consult - Cx 3.) ESRD on HD - Nephro Consult for HD 5.) HTN - C/W Home meds 6.) Dvt Ppx - On Hep. gtt Place in Med-Sx
--- NOTE | 2017-04-18 22:14 | HP ---
CHIEF COMPLAINT: LLE wound/ulcer PCP: Dr. Cadet HISTORY OF PRESENT ILLNESS: 56 y/o M w/PMH of ESRD (on HD TTS), DM, PVD, OM, CVAx2 (w/LLE residual weakness ) presents to the ER after being sent in by Dr. Alcantara for evaluation of LLE ulcer on LLE 1st digit and diminished DP pulse on LLE. Pt noticed his ulcer on LLE 1st digit open and worsen since Monday. Pt saw Dr. Alcantara today who noticed drainage and sent him to the ER. Pt denies any pain at location of ulcer , denies any fevers, chills, CP, SOB, N/V, abd pain, difficulty ambulating due to ulcer, or change in sensation in LLE (pt at baseline has decreased sensation in LLE). ER course was notable for: (1) Vanc/Zosyn, Heparin (2) Duplex u/s arterial b/l LE (3) Recent Travel: denies PAST MEDICAL HISTORY:ESRD (on HD TTS), DM, PVD, OM, CVAx2 (w/LLE residual weakness) PAST SURGICAL HISTORY: LUE fistula for HD Social History: Smoking: denies Alcohol: denies Drugs: denies Family History: n-c Allergies fish derived Allergy (Severe, Verified 04/18/17 13:44) Hives Shellfish Allergy (Severe, Verified 04/18/17 13:44) throat swelling sulfamethoxazole [From Bactrim DS] Allergy (Severe, Verified 04/18/17 13:44) Swelling trimethoprim [From Bactrim DS] Allergy (Severe, Verified 04/18/17 13:44) Swelling HOME MEDICATIONS: Home Medications Medication Instructions Recorded Omeprazole [Prilosec (RX)] 20 mg PO PRN PRN 08/13/14 Nifedipine ER [Procardia XL -] 30 mg PO DAILY #30 tab.er.24 08/13/15 Atorvastatin Ca [Lipitor] 80 mg PO HS 05/24/16 Calcium Acetate [Phoslo -] 667 mg PO TIDCM 05/24/16 Carvedilol 12.5 mg PO BID 05/24/16 Torsemide 80 mg PO DAILY 05/24/16 Ferrous Sulfate [Feosol] 1 tab PO DAILY 08/02/16 Albuterol Sulfate [Proair 90 mcg IH BID 11/13/16 Respiclick] Cholecalciferol (Vitamin D3) 2,000 unit PO DAILY 11/13/16 [Vitamin D3] Aspirin [ASA -] 81 mg PO DAILY #30 tab.chew 11/15/16 Pregabalin [Lyrica -] 50 mg PO DAILY #30 capsule MDD 50 12/03/16 mg Unobtainable 04/18/17 REVIEW OF SYSTEMS CONSTITUTIONAL: Absent: fever, chills HEENT: Absent: rhinorrhea, visual changes CARDIOVASCULAR: Absent: chest pain, lightheadedness RESPIRATORY: Absent: cough, shortness of breath GASTROINTESTINAL: Absent: abdominal pain, nausea, vomiting NEUROLOGIC: Absent: headache PHYSICAL EXAMINATION Vital Signs - 24 hr 04/18/17 04/18/17 13:45 17:45 Temperature 98.3 F Pulse Rate 98 H Pulse Rate [ 114 H Apical] Respiratory 18 Rate Blood Pressure 140/74 Blood Pressure 122/69 [Right Arm] O2 Sat by Pulse 100 97 Oximetry (%) GENERAL: Awake, alert, and fully oriented, in no acute distress. HEAD: Normal with no signs of trauma. EYES: extraocular movements intact, sclera anicteric, conjunctiva clear. EARS, NOSE, THROAT: Ears normal, nares patent, moist mucous membranes. NECK: Normal range of motion, supple LUNGS: Overall diminished breath sounds due to body habitus but otherwise breath sounds equal, clear to auscultation bilaterally. No wheezes, and no crackles. HEART: Tachycardic, normal S1 and S2. ABDOMEN: Soft, obese, nontender, not distended, normoactive bowel sounds LOWER EXTREMITIES: Faint DP pulse palpated in LLE. LLE 1st digit with lesion at tip of toe with pus drainage. No pain with palpation. Decreased sensation on LLE compared to RLE. Chronic venous stasis changes noted. NEUROLOGICAL: Normal speech. Gait not observed. PSYCHIATRIC: Cooperative. Good eye contact. Appropriate mood and affect. SKIN: Warm, dry, as noted above in lower extremities. Laboratory Results - last 24 hr 04/18/17 04/18/17 04/18/17 18:00 18:00 18:00 WBC 8.3 RBC 4.15 D Hgb 12.6 D Hct 38.4 D MCV 92.5 MCH 30.3 MCHC 32.8 RDW 17.7 H D Plt Count 187 MPV 9.0 Neutrophils % 65.0 Lymphocytes % 15.7 D Monocytes % 10.0 Eosinophils % 8.0 H Basophils % 1.3 PT with INR 13.10 H INR 1.16 H PTT (Actin FS) 30.1 Sodium 136 Potassium 4.4 Chloride 100 Carbon Dioxide 28 Anion Gap 8 BUN 31 H D Creatinine 5.9 H Creat Clearance w eGFR 9.97 Random Glucose 139 H Calcium 8.1 L Total Bilirubin 0.9 D AST 22 ALT 23 D Alkaline Phosphatase 56 D Total Protein 7.8 D Albumin 3.5 D Imaging: Ultrasound B/L LE aterial: Impression: There is somewhat diminished flow at the level of the left popliteal artery. The left posterior tibial artery could not be adequately visualized which may be on a technical basis versus due to occlusion. The right leg demonstrates no obvious flow abnormality involving the common femoral, superficial femoral popliteal arteries. The right posterior tibial artery could not be adequately visualized possibly secondary to apparent calf soft tissue swelling ASSESSMENT/PLAN: 56 y/o M w/PMH of ESRD (on HD TTS), DM, PVD, OM, CVAx2 (w/LLE residual weakness ) presents to the ER after being sent in by Dr. Alcantara for evaluation of LLE ulcer on LLE 1st digit and diminished DP pulse on LLE. Pt's pharmacy currently closed, could not confirm medications. Pharmacy is [facility] [phone] -Diminished pulse in LLE secondary to ischemic limb -Heparin drip (start bolus at 80 units/kg, start rate at 18 units/kg, goal PTT 60-80) -FOBTs since on heparin drip -Dr. Alcantara, podiatry consult -Dr. Huff, vascular surgery consult -LLE 1st digit ulceration, r/o OM -f/u L foot XR; may need MRI L foot to r/o OM -CRP, ESR -c/w Vanc/Zosyn HD dosed -Vanco HD dosing is 500-1g after every HD session -f/u random vanco level in AM -Zosyn is 2.25g q12h -f/u BCx -Dr. Campbell, ID consult -ESRD -HD TTS -Dr. Win, nephrology consult -DM -ISS, BGMs ACHS -LE neuropathy -Lyrica 100 mg once given. -Needs to be confirmed w/pharmacy. -DVT ppx -on heparin drip -FEN -no fluids for now -monitor electrolytes, pt on HD -NPO after midnight -Dispo: -admit to m/s Visit type - Emergency Visit Emergency Visit: Yes ED Registration Date: 04/18/17 Care time: The patient presented to the Emergency Department on the above date and was hospitalized for further evaluation of their emergent condition. - New Patient This patient is new to me today: Yes Date on this admission: 04/19/17 - Critical Care Critical Care patient: No
[2017-04-19] MEDS ORDERED: PREGABALIN 50 MG CAPSULE PO ONE ×2 (00:42→01:23)
[2017-04-19] MEDS ORDERED: PREGABALIN 50 MG CAPSULE ONE ×2 (01:02→01:34)
[2017-04-19 04:00] VITALS: BMI 41.8
[2017-04-19] MEDS: INSULIN SLIDING SCALE (NOVOLOG) 1 VIAL SQ SCH ×4 (06:55→22:43)
[2017-04-19] MEDS ORDERED: HEPARIN - 25,000 UNIT in SODIUM CHLORIDE 495 ML IV SCH (07:01)
[2017-04-19 08:39] LABS: BASO % 1.9 % (0-2.0); EOS % 9.3 % (0-4.5); HEMATOCRIT 32.8 % (35.4-49); HEMOGLOBIN 10.7 GM/dL (11.7-16.9); LYMPH % 18.7 % (8-40); MCHC 32.8 g/dl (32.0-35.9); MEAN CELL VOLUME 91.4 fl (80-96); MEAN PLT VOLUME 9.5 fl (7.5-11.1); MONO % 10.7 % (3.8-10.2); NEUT % 59.4 % (42.8-82.8); PLATELET COUNT 169 K/MM3 (134-434); RBC 3.58 M/mm3 (4.00-5.60); RDW 17.4 % (11.9-15.9); WHITE BLOOD COUNT 8.3 K/mm3 (4.0-10.0)
[2017-04-19] MEDS ORDERED: DEXTROSE 5%-0.45% SALINE 1,000 ML IV SCH (08:45)
[2017-04-19 08:54] LABS: INR 1.18 (0.82-1.09); PROTHROMBIN TIME (PATIENT) 13.3 SEC (9.98-11.88)
[2017-04-19 08:57] LABS: ACTIVATED PTT 29.1 SECONDS (26.9-34.4)
[2017-04-19 09:27] LABS: ALBUMIN 2.8 g/dl (3.4-5.0); ANION GAP 10 (8-16); BLOOD UREA NITROGEN 40 mg/dL (7-18); CALCIUM 7.4 mg/dL (8.5-10.1); CHLORIDE 103 mmol/L (98-107); CO2 25 mmol/L (21-32); CREATININE 6.8 mg/dL (0.7-1.3); GLUCOSE,RANDOM 79 mg/dL (74-106); MAGNESIUM 2.2 mg/dL (1.8-2.4); PHOSPHOROUS 5.5 mg/dL (2.5-4.9); POTASSIUM 4.1 mmol/L (3.5-5.1); SGOT/AST 14 U/L (15-37); SGPT/ALT 17 U/L (12-78); SODIUM 138 mmol/L (136-145)
[2017-04-19 09:29] LABS: ALK PHOS 44 U/L (45-117); BILIRUBIN,TOTAL 0.9 mg/dL (0.2-1.0); TOT PROT 6.3 g/dl (6.4-8.2)
--- NOTE | 2017-04-19 11:06 | EKG ---
Test Reason : Blood Pressure : / mmHG Vent. Rate : 084 BPM Atrial Rate : 084 BPM P-R Int : 180 ms QRS Dur : 098 ms QT Int : 382 ms P-R-T Axes : 026 -53 032 degrees QTc Int : 451 ms SINUS RHYTHM WITH PREMATURE ATRIAL COMPLEXES PULMONARY DISEASE PATTERN LEFT ANTERIOR FASCICULAR BLOCK ABNORMAL ECG WHEN COMPARED WITH ECG OF 29-NOV-2016 15:15, PREMATURE ATRIAL COMPLEXES ARE NOW PRESENT [place] INTERVAL HAS DECREASED VENT. RATE HAS INCREASED BY 29 BPM CRITERIA FOR ANTERIOR INFARCT ARE NO LONGER PRESENT Confirmed by ASHLEY UNGER, RAGHAVENDRA ([id number]) on 04/19/2017 11:05:52 AM Referred By: Confirmed By:RAGHAVENDRA RAMIREZ MD
--- NOTE | 2017-04-19 11:19 | PN ---
Progress Note (short form) - Note Progress Note: ID Consult dictated Ischemic v. infected L toes / ESRD Hx chronic osteomyelitis L great toe 11/20 For vascular evaluation Empiric vanco/ zosyn, adjusted for ESRD
[2017-04-19] MEDS: HEPARIN INFUSION - 25,000 UNITS/500 ML INFUS.BAG IVPB SCH (12:07)
[2017-04-19] MEDS: HEPARIN NA (PORCINE) 5,000 UNITS/ML 1ML VIAL IVPUSH PRN ×2 (12:10→20:04)
[2017-04-19] MEDS ORDERED: VANCOMYCIN 1,000 MG in DEXTROSE 5%-WATER - 250 ML IVPB ONE (12:15)
--- NOTE | 2017-04-19 12:29 | CONSULT ---
Consult Consult Specialty:: Nephrology Reason for Consultation:: ESRD on HD - History of Present Illness Chief Complaint: sent in from wound care for left foot ulcer History of Present Illness: Pt is a 56 year old male with pmhx of ESRD, DM, obesity, osteo, and HTN who was sent in from the wound clinic for a left foot ulcer. He was last dialyzed on Monday. He denies fevers or chills. He denies shortness of breath. He denies chest pain. He says that the left foot pain had worsened over the last 3 days. - History Source History Provided By: Patient, Medical Record - Past Medical History STONE LAYOUT MARKER: Yes: CVA Cardio/Vascular: Yes: HTN, Hyperlipdemia Pulmonary: Yes: Sleep Apnea Gastrointestinal: Yes: GERD, Other (obesity) Renal/: Yes: Renal Failure, Other (ckd) Endocrine: Yes: Diabetes Mellitus - Alcohol/Substance Use Hx Alcohol Use: No - Smoking History Smoking history: Never smoked Have you smoked in the past 12 months: No Aproximately how many cigarettes per day: 0 - Social History ADL: Independent History of Recent Travel: No Home Medications - Allergies Allergies/Adverse Reactions: Allergies Allergy/AdvReac Type Severity Reaction Status Date / Time fish derived Allergy Severe Hives Verified 04/18/17 13:44 Shellfish Allergy Severe Verified 04/18/17 13:44 sulfamethoxazole Allergy Severe Swelling Verified 04/18/17 13:44 [From Bactrim DS] trimethoprim Allergy Severe Swelling Verified 04/18/17 13:44 [From Bactrim DS] - Home Medications Home Medications: Ambulatory Orders Omeprazole [Prilosec (RX)] 20 mg PO DAILY 08/13/14 Nifedipine ER [Procardia XL -] 30 mg PO DAILY #30 tab.er.24 08/13/15 Atorvastatin Ca [Lipitor] 80 mg PO HS 05/24/16 Calcium Acetate [Phoslo -] 667 mg PO TIDCM 05/24/16 Carvedilol 12.5 mg PO BID 05/24/16 Torsemide 80 mg PO DAILY 05/24/16 Ferrous Sulfate [Feosol] 1 tab PO DAILY 08/02/16 Albuterol Sulfate [Proair Respiclick] 90 mcg IH BID 11/13/16 Cholecalciferol (Vitamin D3) [Vitamin D3] 2,000 unit PO DAILY 11/13/16 Aspirin [ASA -] 81 mg PO DAILY #30 tab.chew 11/15/16 Pregabalin [Lyrica -] 50 mg PO DAILY #30 capsule MDD 50 mg 12/03/16 Glipizide 2.5 mg PO BID 04/19/17 Family Disease History - Family Disease History Family History: Denies Review of Systems - Review of Systems Constitutional: reports: No Symptoms Eyes: reports: No Symptoms HENT: reports: No Symptoms Neck: reports: No Symptoms Cardiovascular: reports: No Symptoms Respiratory: reports: No Symptoms Gastrointestinal: reports: No Symptoms Genitourinary: reports: No Symptoms Musculoskeletal: reports: Other (left foot pain) Integumentary: reports: Erythema Neurological: reports: No Symptoms Endocrine: reports: No Symptoms Hematology/Lymphatic: reports: No Symptoms Psychiatric: reports: No Symptoms Physical Exam Vital Signs: Vital Signs Temperature 99.9 F H 04/19/17 03:39 Pulse Rate 90 04/19/17 03:39 Respiratory Rate 20 04/19/17 03:39 Blood Pressure 131/78 04/19/17 03:39 O2 Sat by Pulse Oximetry (%) 97 04/19/17 03:39 Constitutional: Yes: Calm Eyes: Yes: Conjunctiva Clear HENT: Yes: Atraumatic Neck: Yes: Supple Cardiovascular: Yes: S1, S2 Respiratory: Yes: CTA Bilaterally Gastrointestinal: Yes: Normal Bowel Sounds, Soft Renal/: Yes: WNL Edema: Yes Integumentary: Yes: Erythema Wound/Incision: Yes: Open to air Neurological: Yes: Oriented Psychiatric: Yes: Oriented Labs: CBC, BMP 04/19/17 07:35 04/19/17 07:35 Laboratory Tests 04/18/17 04/18/17 04/19/17 18:00 18:00 07:35 Hgb 12.6 D Potassium BUN 31 H D Creatinine 5.9 H Random Vancomycin 10.607 04/19/17 04/19/17 07:35 07:35 Hgb 10.7 L D Potassium 4.1 BUN 40 H D Creatinine 6.8 H Random Vancomycin Imaging - Results Chest X-ray: Report Reviewed Problem List - Problems (1) ESRD (end stage renal disease) Code(s): N18.6 - END STAGE RENAL DISEASE (2) PVD (peripheral vascular disease) Code(s): I73.9 - PERIPHERAL VASCULAR DISEASE, UNSPECIFIED (3) Anemia Code(s): D64.9 - ANEMIA, UNSPECIFIED Qualifiers: Anemia type: other cause Other causes of anemia: other cause, not classified Qualified Code(s): D64.89 - Other specified anemias (4) DM type 2, uncontrolled, with renal complications Code(s): E11.29 - TYPE 2 DIABETES MELLITUS W OTH DIABETIC KIDNEY COMPLICATION; E11.65 - TYPE 2 DIABETES MELLITUS WITH HYPERGLYCEMIA Assessment/Plan Current Medications Generic Name Dose Route Start Last Admin Trade Name Freq PRN Reason Stop Dose Admin Heparin Sodium (Porcine) 1,000 unit 04/19/17 11:46 Heparin - IVPUSH PRN PRN Heparin Heparin Sodium (Porcine) 5,000 unit 04/19/17 11:46 04/19/17 12:10 Heparin - IVPUSH 5,000 unit PRN PRN Administration Heparin Piperacillin Sod/Tazobactam Sod 2.25 gm in 50 mls @ 100 mls/hr 04/19/17 12:15 04/19/17 12:58 Zosyn 2.25gm Ivpb (Pre-Docked) IVPB 100 mls/hr Q8H-IV LAYTON Administration Protocol Heparin Sodium/Dextrose 25,000 units in 500 mls @ 20 mls/hr 04/19/17 12:00 12:07 Heparin Infusion - IVPB 1,150 units/hr TITR L[place] 23 mls/hr Protocol Administration 1,000 UNITS/HR Insulin Aspart 1 vial 04/19/17 07:00 04/19/17 17:31 Novolog Vial Sliding Scale - SQ 2 units ACHS LAY[place] Administration Protocol Impression 1. ESRD 2. anemia 3. HTN 4. morbid obesity 5. CVA 6. hyperlipidemia 7. proteinuria - nephrotic 8. PVD Plan - will arrange for HD in am - [facility] [place] for anemia - vascular surgery eval - resume home meds - stopped IV fluids - abx per ID - cont wound care Dr Win
--- NOTE | 2017-04-19 12:38 | CONS ---
DATE OF CONSULTATION: DATE OF DICTATION: 04/19/2017 HISTORY OF PRESENT ILLNESS: The patient is a 56-year-old male evaluated for left foot infection. The patient was treated for chronic osteomyelitis of the left great toe in November 2016. At that time, he had sustained an injury to his left great toe and developed chronic osteomyelitis of the left great toe. Cultures at that time were positive for Staphylococcus aureus. He was treated with a 6-week course of IV antibiotic therapy. Patient reports that the wound completely healed with the exception of a scab. He said that over the past 2 days he developed worsening pain in the left great toe. He denies any traumatic injury. He was seen in the wound care center where he was noted to have diminished capillary refill and diminished pulses in the left foot. He had also complained of some numbness and coolness of his left foot. He was sent from the wound care center to the emergency room for evaluation for admission, possible arterial occlusion. He denies any associated fever or chills. According to the patient, pus was expressed from the distal aspect of the left great toe. He has a history of end-stage renal disease and is on hemodialysis. He is also diabetic. PAST MEDICAL HISTORY: Positive for end-stage renal disease, on hemodialysis, history of diabetes mellitus, peripheral vascular disease, hypertension, hyperlipidemia, stroke, COPD, obstructive sleep apnea, morbid obesity. PAST SURGICAL HISTORY: Status post gastric bypass and left upper extremity AV fistula. ALLERGIES: SULFA (rash). MEDICATIONS: Include omeprazole, Procardia, Lipitor, carvedilol, ProAir, aspirin, Lyrica. SOCIAL HISTORY: Lives at home. He is a nonsmoker, nondrinker. SYSTEMS REVIEW: Neurologic: No loss of consciousness, seizure activity or focal weakness. Cardiac: Negative chest pain or palpitations. Respiratory: Negative cough or sputum production. Gastrointestinal: Negative vomiting or diarrhea. Genitourinary: Negative for urinary tract infection. LABORATORY DATA: White count 8.3, hematocrit 32.8, platelet count 169. BUN 40, creatinine 6.8. Vancomycin trough 10.6. Sedimentation rate 69. C-reactive protein pending. Cultures pending. PHYSICAL EXAMINATION:General: He is awake and alert. He is not acutely toxic appearing. Vital Signs: Temperature 99.9, blood pressure 131/78, pulse 90, regular, respirations 20 per minute. HEENT: Sclerae anicteric. Cardiac: Heart sounds S1, S2. Lungs: Clear. Abdomen: Obese, soft, nontender. Extremities: Positive for chronic venostasis dermatitis of the distal lower extremities bilaterally. Examination of the left foot: There is a dry callus present over the distal aspect of the left great toe which is dusky in appearance. In addition, there is swelling and similar dusky appearance of the left 2nd toe with 2 necrotic dry ulcers on the dorsal aspect of the 2nd toe. No purulent drainage. No lymphangitic streaking. IMPRESSION: 1. Ischemic versus infected left 1st and 2nd toes. 2. Possible soft tissue infection of the left great toe. 3. End-stage renal disease, on hemodialysis. 4. History of chronic osteomyelitis of the left great toe, November 2016. RECOMMENDATIONS: For vascular evaluation. Await cultures. Empiric antibiotic coverage with vancomycin and Zosyn adjusted for end-stage renal disease. Local wound care. Will follow. Thank you for the kind referral. DALIA WITT M.D. [id number]
[2017-04-19] MEDS: PIPERACILLIN/TAZOB 2.25 GM 2.25 GM/50 ML BAG IVPB SCH ×2 (12:58→18:39)
--- NOTE | 2017-04-19 13:08 | CONSULT ---
<Ilana Myers - Last Filed: 04/19/17 13:43> - Consultation REQUESTING PROVIDER: CONSULT REQUEST: We have been asked to surgically evaluate this patient for left leg pain/ischemia. 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 He presented to the ER and was admitted for pain and discoloration to his left foot. He has had dried ulcers on his toes for awhile but on Monday he had pain with coolness with some tingling to his forefoot. The patient has HD via a fistula which was dilated several weeks ago. No fevers/chills/SOB and states tath his foot pain is better. PMHx: ESRD, morbid obesity(lost 300 pounds after gastric surgery for stomach reduction), h/o diabetes PSHx: gastric reduction surgery, left AVF with ballon stenting Home Medications Medication Instructions Recorded Omeprazole [Prilosec (RX)] 20 mg PO PRN PRN 08/13/14 Nifedipine ER [Procardia XL -] 30 mg PO DAILY #30 tab.er.24 08/13/15 Atorvastatin Ca [Lipitor] 80 mg PO HS 05/24/16 Calcium Acetate [Phoslo -] 667 mg PO TIDCM 05/24/16 Carvedilol 12.5 mg PO BID 05/24/16 Torsemide 80 mg PO DAILY 05/24/16 Ferrous Sulfate [Feosol] 1 tab PO DAILY 08/02/16 Albuterol Sulfate [Proair 90 mcg IH BID 11/13/16 Respiclick] Cholecalciferol (Vitamin D3) 2,000 unit PO DAILY 11/13/16 [Vitamin D3] Aspirin [ASA -] 81 mg PO DAILY #30 tab.chew 11/15/16 Pregabalin [Lyrica -] 50 mg PO DAILY #30 capsule MDD 50 12/03/16 mg Unobtainable 04/18/17 Allergies Allergy/AdvReac Type Severity Reaction Status Date / Time fish derived Allergy Severe Hives Verified 04/18/17 13:44 Shellfish Allergy Severe Verified 04/18/17 13:44 sulfamethoxazole Allergy Severe Swelling Verified 04/18/17 13:44 [From Bactrim DS] trimethoprim Allergy Severe Swelling Verified 04/18/17 13:44 [From Bactrim DS] REVIEW OF SYSTEMS: CONSTITUTIONAL: Absent: fever, chills CARDIOVASCULAR: Absent: chest pain, syncope RESPIRATORY: Absent: cough, shortness of breath GASTROINTESTINAL: Absent: abdominal pain, abdominal distension, nausea, vomiting PHYSICAL EXAM: GENERAL: Awake, alert, and fully oriented, in no acute distress. ABDOMEN: Soft, nontender, not distended, normoactive bowel sounds, no guarding, no rebound, no masses. No organomegaly. UPPER EXTREMITIES: 2+ pulses, warm, well-perfused. No cyanosis. Cap refill <2 seconds. No peripheral edema. LUE with good thrill LOWER EXTREMITIES: 2+ pulses with doppler, feet warm to touch b/l. Left great toe with blister. Nail bed missing. No pus expressed with palpation. Second toe with two dried ulcers over dorsal aspect of toe. Other toes appear slightly discolored with varying level down to base of toes. Forefoot and plantar surface with sensation. Vital Signs Temperature 98.6 F 04/19/17 10:00 Pulse Rate 73 04/19/17 10:00 Respiratory Rate 20 04/19/17 10:00 Blood Pressure 116/54 04/19/17 10:00 O2 Sat by Pulse Oximetry (%) 97 04/19/17 03:39 Lab Results WBC 8.3 K/mm3 (4.0-10.0) 04/19/17 07:35 RBC 3.58 M/mm3 (4.00-5.60) L 04/19/17 07:35 Hgb 10.7 GM/dL (11.7-16.9) L D 04/19/17 07:35 Hct 32.8 % (35.4-49) L 04/19/17 07:35 MCV 91.4 fl (80-96) 04/19/17 07:35 MCHC 32.8 g/dl (32.0-35.9) 04/19/17 07:35 RDW 17.4 % (11.9-15.9) H 04/19/17 07:35 Plt Count 169 K/MM3 (134-434) 04/19/17 07:35 Sodium 138 mmol/L (136-145) 04/19/17 07:35 Potassium 4.1 mmol/L (3.5-5.1) 04/19/17 07:35 Chloride 103 mmol/L (98-107) 04/19/17 07:35 Carbon Dioxide 25 mmol/L (21-32) 04/19/17 07:35 Anion Gap 10 (8-16) 04/19/17 07:35 BUN 40 mg/dL (7-18) H D 04/19/17 07:35 Creatinine 6.8 mg/dL (0.7-1.3) H 04/19/17 07:35 Random Glucose 79 mg/dL (74-106) D 04/19/17 07:35 Calcium 7.4 mg/dL (8.5-10.1) L 04/19/17 07:35 Blood Type A POSITIVE 04/19/17 07:35 Antibody Screen Negative 04/19/17 07:35 INR 1.18 (0.82-1.09) H 04/19/17 07:35 US- RLE: No flow abnormalities LLE: decreased flow at level of popliteal and to posterior tibial artery Problem List - Problems (1) PVD (peripheral vascular disease) Assessment/Plan: Pt seen and examined with Dr. Sheets Plan for CTA of his left extremity to better evaluate the blood flow to this leg. Currently the patient is receiving IV heparin without evidence of any on- going ischemia. His pain symptoms are improving with improved sensation. The patient is able to eat today, no need for npo, diet ordered. Plan for HD tomorrow after CTA Continue IV heparin IV [id number] as per ID Code(s): I73.9 - PERIPHERAL VASCULAR DISEASE, UNSPECIFIED Visit type - Case Type Case Type: ED Admission - Emergency Emergency Visit: Yes ED Registration Date: 04/18/17 Care time: The patient presented to the Emergency Department on the above date and was hospitalized for further evaluation of their emergent condition. - New patient This patient is new to me today: Yes Date on this admission: 04/19/17 <Raj Sheets - Last Filed: 04/19/17 21:00> - Consultation REQUESTING PROVIDER: CONSULT REQUEST: We have been asked to surgically evaluate this patient for ( specify). PCP:Simon Tabares MD HISTORY OF PRESENT ILLNESS: PMHx: PSHx: Home Medications Medication Instructions Recorded Omeprazole [Prilosec (RX)] 20 mg PO DAILY 08/13/14 Nifedipine ER [Procardia XL -] 30 mg PO DAILY #30 tab.er.24 08/13/15 Atorvastatin Ca [Lipitor] 80 mg PO HS 05/24/16 Calcium Acetate [Phoslo -] 667 mg PO TIDCM 05/24/16 Carvedilol 12.5 mg PO BID 05/24/16 Torsemide 80 mg PO DAILY 05/24/16 Ferrous Sulfate [Feosol] 1 tab PO DAILY 08/02/16 Albuterol Sulfate [Proair 90 mcg IH BID 11/13/16 Respiclick] Cholecalciferol (Vitamin D3) 2,000 unit PO DAILY 11/13/16 [Vitamin D3] Aspirin [ASA -] 81 mg PO DAILY #30 tab.chew 11/15/16 Pregabalin [Lyrica -] 50 mg PO DAILY #30 capsule MDD 50 12/03/16 mg Glipizide 2.5 mg PO BID 04/19/17 Allergies Allergy/AdvReac Type Severity Reaction Status Date / Time fish derived Allergy Severe Hives Verified 04/18/17 13:44 Shellfish Allergy Severe Verified 04/18/17 13:44 sulfamethoxazole Allergy Severe Swelling Verified 04/18/17 13:44 [From Bactrim DS] trimethoprim Allergy Severe Swelling Verified 04/18/17 13:44 [From Bactrim DS] REVIEW OF SYSTEMS: CONSTITUTIONAL: Absent: fever, chills, diaphoresis, generalized weakness, malaise, loss of appetite, weight change CARDIOVASCULAR: Absent: chest pain, syncope, palpitations, irregular heart rate, lightheadedness , peripheral edema RESPIRATORY: Absent: cough, shortness of breath, dyspnea with exertion, wheezing, stridor, hemoptysis GASTROINTESTINAL: Absent: abdominal pain, abdominal distension, nausea, vomiting, diarrhea, constipation, melena, hematochezia GENITOURINARY: Absent: dysuria, frequency, urgency, hesitancy, hematuria, flank pain, genital pain MUSCULOSKELETAL: Absent: myalgia, arthralgia, joint swelling, back pain, neck pain SKIN: Absent: rash, itching, pallor HEMATOLOGIC/IMMUNOLOGIC: Absent: easy bleeding, easy bruising, lymphadenopathy NEUROLOGIC: Absent: headache, focal weakness, paresthesias, dizziness, unsteady gait, seizure, mental status changes, bladder or bowel incontinence PSYCHIATRIC: Absent: anxiety, depression, suicidal or homicidal ideation, hallucinations. PHYSICAL EXAM: GENERAL: Awake, alert, and fully oriented, in no acute distress. HEAD: Normal with no signs of trauma. EYES: PERRL, sclera anicteric, conjunctiva clear. NECK: Normal ROM, supple without lymphadenopathy, JVD, or masses. LUNGS: Clear to auscultation bilat anteriorly. No wheezes, and no crackles. No accessory muscle use. HEART: Regular rate and rhythm. No murmurs ABDOMEN: Soft, nontender, not distended, normoactive bowel sounds, no guarding, no rebound, no masses. No organomegaly. MUSCULOSKELETAL: Normal ROM at all joints. No bony deformities or tenderness. No CVA tenderness. UPPER EXTREMITIES: 2+ pulses, warm, well-perfused. No cyanosis. Cap refill <2 seconds. No peripheral edema. LOWER EXTREMITIES: 2+ pulses, warm, well-perfused. No calf tenderness. No peripheral edema. NEUROLOGICAL: Normal speech, gait not observed. PSYCH: Cooperative. Good eye contact. Appropriate mood and affect. SKIN: Warm, dry, normal turgor, no rashes or lesions noted. Vital Signs Temperature 97.9 F 04/19/17 15:55 Pulse Rate 77 04/19/17 15:55 Respiratory Rate 20 04/19/17 15:55 Blood Pressure 108/61 04/19/17 15:55 O2 Sat by Pulse Oximetry (%) 96 04/19/17 09:00 Lab Results WBC 8.3 K/mm3 (4.0-10.0) 04/19/17 07:35 RBC 3.58 M/mm3 (4.00-5.60) L 04/19/17 07:35 Hgb 10.7 GM/dL (11.7-16.9) L D 04/19/17 07:35 Hct 32.8 % (35.4-49) L 04/19/17 07:35 MCV 91.4 fl (80-96) 04/19/17 07:35 MCHC 32.8 g/dl (32.0-35.9) 04/19/17 07:35 RDW 17.4 % (11.9-15.9) H 04/19/17 07:35 Plt Count 169 K/MM3 (134-434) 04/19/17 07:35 Sodium 138 mmol/L (136-145) 04/19/17 07:35 Potassium 4.1 mmol/L (3.5-5.1) 04/19/17 07:35 Chloride 103 mmol/L (98-107) 04/19/17 07:35 Carbon Dioxide 25 mmol/L (21-32) 04/19/17 07:35 Anion Gap 10 (8-16) 04/19/17 07:35 BUN 40 mg/dL (7-18) H D 04/19/17 07:35 Creatinine 6.8 mg/dL (0.7-1.3) H 04/19/17 07:35 Random Glucose 79 mg/dL (74-106) D 04/19/17 07:35 Calcium 7.4 mg/dL (8.5-10.1) L 04/19/17 07:35 Blood Type A POSITIVE 04/19/17 07:35 Antibody Screen Negative 04/19/17 07:35 INR 1.18 (0.82-1.09) H 04/19/17 07:35 History reviewed and patient examined. Left foot warm with areas of ischemic skin changes in 1st, 2nd and 5th toes. Chronic ulcers on 2nd toe. Pedal pulse not palpable. Exam suggests atheroemboli to foot. CTA ordered to evaluate arterial tree for source of emboli or occult occlusive disease. Further management decisions after CTA is done.
--- NOTE | 2017-04-19 17:27 | PN ---
Physical Exam: SUBJECTIVE: Patient seen and examined. No complaints. Pt denies chest pain, sob, abdominal pain, fever, chills. OBJECTIVE: Vital Signs Period Temp Pulse Resp BP Sys/Leon Pulse Ox Last 24 Hr 97.9 F-99.9 F 73-114 20-20 108-131/54-78 96-97 GENERAL: The patient is awake, alert, and fully oriented, in no acute distress. LUNGS: Breath sounds equal, clear to auscultation bilaterally, no wheezes, no crackles, no accessory muscle use. HEART: Regular rate and rhythm, S1, S2 without murmur, rub or gallop. ABDOMEN: Soft, nontender, nondistended, no guarding. EXTREMITIES: carlyn LE with thickened skin. + carlyn pulses with doppler. Left great toe with indurated lesion at tip, no pus expressed on palpation. Left 2nd toe with two areas of eschar ~1cm each. Bluish discoloration and loss of sensation to Left 1st and 2nd toe. No edema. PSYCH: Normal mood, normal affect. SKIN: Warm, dry, normal turgor, no rashes or lesions noted Laboratory Results - last 24 hr 04/18/17 04/18/17 04/18/17 18:00 18:00 18:00 WBC 8.3 RBC 4.15 D Hgb 12.6 D Hct 38.4 D MCV 92.5 MCH 30.3 MCHC 32.8 RDW 17.7 H D Plt Count 187 MPV 9.0 Neutrophils % 65.0 Lymphocytes % 15.7 D Monocytes % 10.0 Eosinophils % 8.0 H Basophils % 1.3 ESR PT with INR 13.10 H INR 1.16 H PTT (Actin FS) 30.1 Sodium 136 Potassium 4.4 Chloride 100 Carbon Dioxide 28 Anion Gap 8 BUN 31 H D Creatinine 5.9 H Creat Clearance w eGFR 9.97 POC Glucometer Random Glucose 139 H Calcium 8.1 L Phosphorus Magnesium Total Bilirubin 0.9 D AST 22 ALT 23 D Alkaline Phosphatase 56 D C-Reactive Protein Total Protein 7.8 D Albumin 3.5 D Random Vancomycin Blood Type Antibody Screen 04/19/17 04/19/17 04/19/17 06:50 07:35 07:35 WBC 8.3 RBC 3.58 L Hgb 10.7 L D Hct 32.8 L MCV 91.4 MCH 30.0 MCHC 32.8 RDW 17.4 H Plt Count 169 MPV 9.5 Neutrophils % 59.4 Lymphocytes % 18.7 Monocytes % 10.7 H Eosinophils % 9.3 H Basophils % 1.9 ESR PT with INR INR PTT (Actin FS) Sodium Potassium Chloride Carbon Dioxide Anion Gap BUN Creatinine Creat Clearance w eGFR POC Glucometer 89 Random Glucose Calcium Phosphorus Magnesium Total Bilirubin AST ALT Alkaline Phosphatase C-Reactive Protein Total Protein Albumin Random Vancomycin 10.607 Blood Type Antibody Screen 04/19/17 04/19/17 04/19/17 07:35 07:35 07:35 WBC RBC Hgb Hct MCV MCH MCHC RDW Plt Count MPV Neutrophils % Lymphocytes % Monocytes % Eosinophils % Basophils % ESR PT with INR 13.30 H INR 1.18 H PTT (Actin FS) 29.1 Sodium 138 Potassium 4.1 Chloride 103 Carbon Dioxide 25 Anion Gap 10 BUN 40 H D Creatinine 6.8 H Creat Clearance w eGFR 8.46 POC Glucometer Random Glucose 79 D Calcium 7.4 L Phosphorus 5.5 H Magnesium 2.2 Total Bilirubin 0.9 AST 14 L D ALT 17 D Alkaline Phosphatase 44 L D C-Reactive Protein Total Protein 6.3 L Albumin 2.8 L Random Vancomycin Blood Type A POSITIVE Antibody Screen Negative 04/19/17 04/19/17 04/19/17 07:35 07:35 12:05 WBC RBC Hgb Hct MCV MCH MCHC RDW Plt Count MPV Neutrophils % Lymphocytes % Monocytes % Eosinophils % Basophils % ESR 69 H PT with INR INR PTT (Actin FS) Sodium Potassium Chloride Carbon Dioxide Anion Gap BUN Creatinine Creat Clearance w eGFR POC Glucometer 121 Random Glucose Calcium Phosphorus Magnesium Total Bilirubin AST ALT Alkaline Phosphatase C-Reactive Protein 5.5 H Total Protein Albumin Random Vancomycin Blood Type Antibody Screen Active Medications Generic Name Dose Route Start Last Admin Trade Name Freq PRN Reason Stop Dose Admin Heparin Sodium (Porcine) 1,000 unit 04/19/17 11:46 Heparin - IVPUSH PRN PRN Heparin Heparin Sodium (Porcine) 5,000 unit 04/19/17 11:46 04/19/17 12:10 Heparin - IVPUSH 5,000 unit PRN PRN Administration Heparin Piperacillin Sod/Tazobactam Sod 2.25 gm in 50 mls @ 100 mls/hr 04/19/17 12:15 04/19/17 12:58 Zosyn 2.25gm Ivpb (Pre-Docked) IVPB 100 mls/hr Q8H-IV L[facility]TON Administration Protocol Heparin Sodium/Dextrose 25,000 units in 500 mls @ 20 mls/hr 04/19/17 12:00 12:07 Heparin Infusion - IVPB 1,150 units/hr TITR L[facility] 23 mls/hr Protocol Administration 1,000 UNITS/HR Insulin Aspart 1 vial 04/19/17 07:00 04/19/17 12:06 Novolog Vial Sliding Scale - SQ Not Given ACHS L[facility]TON Protocol IMAGIN04/18/17 Duplex carlyn LE -> somewhat diminished flow at Left popliteal artery. Left posterior tibial artery with questionable occlusion. 04/18/17 CXR -> no active pulmonary disease 04/18/17 Left foot xray -> slight deformity of tuft of great toe again noted. No change since 09/2016 study. 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 # Left LE ischemia - Heparin drip - Vascular Surgery (Dr. Sheets) recs appreciated: f/u CTA - vascular checks q4hr # Left LE wound infection - ID (Dr. Farah) recs appreciated: Day 1 Vanc/Zosyn - f/u blood culture # ESRD on HD - Nephrology (Dr. Win) recs appreciated: epogen given for anemia, HD to be arranged for after CTA # DM - BGMs - SSI # FEN - Fluids: po - Electrolytes: hyperphosphatemia noted -> Phoslo resumed, continue to monitor - Nutrition: renal, diabetic diet # Prophylaxis - DVT ppx with Heparin drip Visit type - Emergency Visit Emergency Visit: Yes ED Registration Date: 04/18/17 Care time: The patient presented to the Emergency Department on the above date and was hospitalized for further evaluation of their emergent condition. - New Patient This patient is new to me today: Yes Date on this admission: 04/19/17 - Critical Care Critical Care patient: No
--- NOTE | 2017-04-19 17:27 | PN ---
Teaching Attending Note Name of Resident: Pao Randall ATTENDING PHYSICIAN STATEMENT Time of evaluation: 11:30 PM I saw and evaluated the patient. I reviewed the resident's note and discussed the case with the resident. I agree with the resident's findings and plan as documented. SUBJECTIVE: Patient seen and examined. Decreased sensation LLE. Reports bluish dusky discoloration of Left 1st and 2nd toes for last 3-4 days. No fevers/chills or new complaints. OBJECTIVE: Vital Signs Period Temp Pulse Resp BP Sys/Leon Pulse Ox Last 24 Hr 97.9 F-99.9 F 73-114 20-20 108-131/54-78 96-97 Intake & Output 04/16/17 04/17/17 04/18/17 04/19/17 23:59 23:59 23:59 23:59 Intake Total 60 Balance 60 Weight 376 lb 15.847 oz 381 lb general: lying in bed in no acute distress Chest: CTAB no rales or wheezing Extremities: LLE - 2+ pulses with doppler, warm to touch. Left great toe with blister. Nail bed missing. No pus expressed with palpation. Second toe with two dried ulcers over dorsal aspect of toe. bluish discoloration of left great and 2nd toe, Other toes appear slightly discolored with varying level down to base of toes. Forefoot and plantar surface with sensation. Abdomen: soft, NT, ND Home Medication List Medication Instructions Recorded Confirmed Type Omeprazole [Prilosec (RX)] 20 mg PO DAILY 08/13/14 04/19/17 History Atorvastatin Ca [Lipitor] 80 mg PO HS 05/24/16 04/19/17 History Calcium Acetate [Phoslo -] 667 mg PO TIDCM 05/24/16 04/19/17 History Carvedilol 12.5 mg PO BID 05/24/16 04/19/17 History Torsemide 80 mg PO DAILY 05/24/16 03/08/17 History Ferrous Sulfate [Feosol] 1 tab PO DAILY 08/02/16 03/08/17 History Albuterol Sulfate [Proair 90 mcg IH BID 11/13/16 03/08/17 History Respiclick] Cholecalciferol (Vitamin D3) 2,000 unit PO DAILY 11/13/16 03/08/17 History [Vitamin D3] Glipizide 2.5 mg PO BID 04/19/17 04/19/17 History Active Medications Generic Name Dose Route Start Last Admin Trade Name Freq PRN Reason Stop Dose Admin Heparin Sodium (Porcine) 1,000 unit 04/19/17 11:46 Heparin - IVPUSH PRN PRN Heparin Heparin Sodium (Porcine) 5,000 unit 04/19/17 11:46 04/19/17 12:10 Heparin - IVPUSH 5,000 unit PRN PRN Administration Heparin Piperacillin Sod/Tazobactam Sod 2.25 gm in 50 mls @ 100 mls/hr 04/19/17 12:15 04/19/17 12:58 Zosyn 2.25gm Ivpb (Pre-Docked) IVPB 100 mls/hr Q8H-IV [place] Administration Protocol Heparin Sodium/Dextrose 25,000 units in 500 mls @ 20 mls/hr 04/19/17 12:00 12:07 Heparin Infusion - IVPB 1,150 units/hr TITR [facility] 23 mls/hr Protocol Administration 1,000 UNITS/HR Insulin Aspart 1 vial 04/19/17 07:00 04/19/17 12:06 Novolog Vial Sliding Scale - SQ Not Given ACHS [facility] Protocol Laboratory Results - last 24 hr 04/18/17 04/18/17 04/18/17 18:00 18:00 18:00 WBC 8.3 RBC 4.15 D Hgb 12.6 D Hct 38.4 D MCV 92.5 MCH 30.3 MCHC 32.8 RDW 17.7 H D Plt Count 187 MPV 9.0 Neutrophils % 65.0 Lymphocytes % 15.7 D Monocytes % 10.0 Eosinophils % 8.0 H Basophils % 1.3 ESR PT with INR 13.10 H INR 1.16 H PTT (Actin FS) 30.1 Sodium 136 Potassium 4.4 Chloride 100 Carbon Dioxide 28 Anion Gap 8 BUN 31 H D Creatinine 5.9 H Creat Clearance w eGFR 9.97 POC Glucometer Random Glucose 139 H Calcium 8.1 L Phosphorus Magnesium Total Bilirubin 0.9 D AST 22 ALT 23 D Alkaline Phosphatase 56 D C-Reactive Protein Total Protein 7.8 D Albumin 3.5 D Random Vancomycin Blood Type Antibody Screen 04/19/17 04/19/17 04/19/17 06:50 07:35 07:35 WBC 8.3 RBC 3.58 L Hgb 10.7 L D Hct 32.8 L MCV 91.4 MCH 30.0 MCHC 32.8 RDW 17.4 H Plt Count 169 MPV 9.5 Neutrophils % 59.4 Lymphocytes % 18.7 Monocytes % 10.7 H Eosinophils % 9.3 H Basophils % 1.9 ESR PT with INR INR PTT (Actin FS) Sodium Potassium Chloride Carbon Dioxide Anion Gap BUN Creatinine Creat Clearance w eGFR POC Glucometer 89 Random Glucose Calcium Phosphorus Magnesium Total Bilirubin AST ALT Alkaline Phosphatase C-Reactive Protein Total Protein Albumin Random Vancomycin 10.607 Blood Type Antibody Screen 04/19/17 04/19/17 04/19/17 07:35 07:35 07:35 WBC RBC Hgb Hct MCV MCH MCHC RDW Plt Count MPV Neutrophils % Lymphocytes % Monocytes % Eosinophils % Basophils % ESR PT with INR 13.30 H INR 1.18 H PTT (Actin FS) 29.1 Sodium 138 Potassium 4.1 Chloride 103 Carbon Dioxide 25 Anion Gap 10 BUN 40 H D Creatinine 6.8 H Creat Clearance w eGFR 8.46 POC Glucometer Random Glucose 79 D Calcium 7.4 L Phosphorus 5.5 H Magnesium 2.2 Total Bilirubin 0.9 AST 14 L D ALT 17 D Alkaline Phosphatase 44 L D C-Reactive Protein Total Protein 6.3 L Albumin 2.8 L Random Vancomycin Blood Type A POSITIVE Antibody Screen Negative 04/19/17 04/19/17 04/19/17 07:35 07:35 12:05 WBC RBC Hgb Hct MCV MCH MCHC RDW Plt Count MPV Neutrophils % Lymphocytes % Monocytes % Eosinophils % Basophils % ESR 69 H PT with INR INR PTT (Actin FS) Sodium Potassium Chloride Carbon Dioxide Anion Gap BUN Creatinine Creat Clearance w eGFR POC Glucometer 121 Random Glucose Calcium Phosphorus Magnesium Total Bilirubin AST ALT Alkaline Phosphatase C-Reactive Protein 5.5 H Total Protein Albumin Random Vancomycin Blood Type Antibody Screen Ultrasound arterial results noted ASSESSMENT AND PLAN: 6 y/o M w/PMH of ESRD (on HD TTS), DM, PVD, OM, CVAx2 (w/LLE residual weakness) admitted with LLE ischemia +/- Wound infection. -LLE ischemia -LLE wound infection -ESRD on HD -DM -PVD -OM -CVA x 2 Plan: Heparin drip. vascular surgery noted, CTA. resume diet and place NPO after midnight in case needs intervention in AM. Add vascular checks. ID input appreciated. ZOsyn/vancomycin ESRD dosing. Monitor levels. ISS, reconcile home meds. Dispo pending resolution of medical concerns.
[2017-04-19] MEDS ORDERED: PT OWN MED DRAWER 7, Y5N ONE (17:56)
[2017-04-19] MEDS ORDERED: INSULIN (NOVOLOG) ASPART 100 UNITS/ML 10ML VIAL ONE (17:57)
[2017-04-20] MEDS ORDERED: PT OWN MED DRAWER 7, Y5N ONE ×3 (01:52→18:14)
[2017-04-20] MEDS: PIPERACILLIN/TAZOB 2.25 GM 2.25 GM/50 ML BAG IVPB SCH ×3 (02:05→19:01)
[2017-04-20] MEDS: HEPARIN NA (PORCINE) 5,000 UNITS/ML 1ML VIAL IVPUSH PRN ×3 (04:12→22:50)
[2017-04-20] MEDS: INSULIN SLIDING SCALE (NOVOLOG) 1 VIAL SQ SCH ×4 (06:02→22:19)
[2017-04-20 07:47] LABS: BASO % 2.8 % (0-2.0); EOS % 11.4 % (0-4.5); HEMATOCRIT 32.9 % (35.4-49); HEMOGLOBIN 10.8 GM/dL (11.7-16.9); LYMPH % 21.8 % (8-40); MCH 30.2 pg (25.7-33.7); MCHC 32.7 g/dl (32.0-35.9); MEAN CELL VOLUME 92.2 fl (80-96); MEAN PLT VOLUME 9.7 fl (7.5-11.1); MONO % 9.5 % (3.8-10.2); NEUT % 54.5 % (42.8-82.8); PLATELET COUNT 172 K/MM3 (134-434); RBC 3.57 M/mm3 (4.00-5.60); WHITE BLOOD COUNT 7.3 K/mm3 (4.0-10.0)
[2017-04-20 08:08] LABS: CHLORIDE 103 mmol/L (98-107); POTASSIUM 4.1 mmol/L (3.5-5.1); SODIUM 137 mmol/L (136-145)
[2017-04-20] MEDS: CALCIUM ACETATE 667 MG CAPSULE (FP) PO SCH ×3 (08:14→18:18)
[2017-04-20 08:28] LABS: ANION GAP 12 (8-16); BLOOD UREA NITROGEN 57 mg/dL (7-18); CALCIUM 7.5 mg/dL (8.5-10.1); CO2 22 mmol/L (21-32); GLUCOSE,RANDOM 119 mg/dL (74-106)
[2017-04-20 08:34] LABS: CREATININE 8.5 mg/dL (0.7-1.3)
--- NOTE | 2017-04-20 08:48 | PN ---
<Pao Randall - Last Filed: 04/20/17 14:41> Physical Exam: SUBJECTIVE: Patient seen and examined. No complaints. Pt denies chest pain, sob, abdominal pain, fever, chills. No events overnight. OBJECTIVE: Vital Signs Period Temp Pulse Resp BP Sys/Leon Pulse Ox Last 24 Hr 97.9 F-99.1 F 71-98 18-20 108-129/54-70 96-98 GENERAL: The patient is awake, alert, and fully oriented, in no acute distress. LUNGS: Breath sounds equal, clear to auscultation bilaterally, no wheezes, no crackles, no accessory muscle use. HEART: Regular rate and rhythm, S1, S2 without murmur, rub or gallop. ABDOMEN: Soft, nontender, nondistended, no guarding. EXTREMITIES: carlyn LE with thickened skin. + carlyn pulses with doppler. Left great toe with indurated lesion at tip, no pus expressed on palpation. Left 2nd toe with two areas of eschar ~1cm each. Bluish discoloration and loss of sensation to Left 1st and 2nd toe. No edema. PSYCH: Normal mood, normal affect. SKIN: Warm, dry, normal turgor, no rashes or lesions noted Laboratory Results - last 24 hr 04/19/17 04/19/17 04/19/17 07:35 07:35 07:35 WBC RBC Hgb Hct MCV MCH MCHC RDW Plt Count MPV Neutrophils % Lymphocytes % Monocytes % Eosinophils % Basophils % ESR PT with INR 13.30 H INR 1.18 H PTT (Actin FS) 29.1 Sodium 138 Potassium 4.1 Chloride 103 Carbon Dioxide 25 Anion Gap 10 BUN 40 H D Creatinine 6.8 H Creat Clearance w eGFR 8.46 POC Glucometer Random Glucose 79 D Calcium 7.4 L Phosphorus 5.5 H Magnesium 2.2 Total Bilirubin 0.9 AST 14 L D ALT 17 D Alkaline Phosphatase 44 L D C-Reactive Protein Total Protein 6.3 L Albumin 2.8 L Random Vancomycin 10.607 Blood Type Antibody Screen 04/19/17 04/19/17 04/19/17 07:35 07:35 07:35 WBC RBC Hgb Hct MCV MCH MCHC RDW Plt Count MPV Neutrophils % Lymphocytes % Monocytes % Eosinophils % Basophils % ESR 69 H PT with INR INR PTT (Actin FS) Sodium Potassium Chloride Carbon Dioxide Anion Gap BUN Creatinine Creat Clearance w eGFR POC Glucometer Random Glucose Calcium Phosphorus Magnesium Total Bilirubin AST ALT Alkaline Phosphatase C-Reactive Protein 5.5 H Total Protein Albumin Random Vancomycin Blood Type A POSITIVE Antibody Screen Negative 04/19/17 04/19/17 04/19/17 12:05 17:00 17:28 WBC RBC Hgb Hct MCV MCH MCHC RDW Plt Count MPV Neutrophils % Lymphocytes % Monocytes % Eosinophils % Basophils % ESR PT with INR INR PTT (Actin FS) 31.6 Sodium Potassium Chloride Carbon Dioxide Anion Gap BUN Creatinine Creat Clearance w eGFR POC Glucometer 121 169 Random Glucose Calcium Phosphorus Magnesium Total Bilirubin AST ALT Alkaline Phosphatase C-Reactive Protein Total Protein Albumin Random Vancomycin Blood Type Antibody Screen 04/19/17 04/20/17 04/20/17 22:39 02:45 05:51 WBC RBC Hgb Hct MCV MCH MCHC RDW Plt Count MPV Neutrophils % Lymphocytes % Monocytes % Eosinophils % Basophils % ESR PT with INR INR PTT (Actin FS) 33.6 Sodium Potassium Chloride Carbon Dioxide Anion Gap BUN Creatinine Creat Clearance w eGFR POC Glucometer 174 138 Random Glucose Calcium Phosphorus Magnesium Total Bilirubin AST ALT Alkaline Phosphatase C-Reactive Protein Total Protein Albumin Random Vancomycin Blood Type Antibody Screen 04/20/17 04/20/17 07:15 07:15 WBC 7.3 RBC 3.57 L Hgb 10.8 L Hct 32.9 L MCV 92.2 MCH 30.2 MCHC 32.7 RDW 17.0 H Plt Count 172 MPV 9.7 Neutrophils % 54.5 Lymphocytes % 21.8 Monocytes % 9.5 Eosinophils % 11.4 H Basophils % 2.8 H ESR PT with INR INR PTT (Actin FS) Sodium 137 Potassium 4.1 Chloride 103 Carbon Dioxide 22 Anion Gap 12 BUN 57 H D Creatinine 8.5 H* D Creat Clearance w eGFR POC Glucometer Random Glucose 119 H D Calcium 7.5 L Phosphorus Magnesium Total Bilirubin AST ALT Alkaline Phosphatase C-Reactive Protein Total Protein Albumin Random Vancomycin Blood Type Antibody Screen Active Medications Generic Name Dose Route Start Last Admin Trade Name Freq PRN Reason Stop Dose Admin Calcium Acetate 667 mg 04/20/17 08:00 04/20/17 08:14 Phoslo - PO Not Given TIDCM [facility] Carvedilol 12.5 mg 04/20/17 10:00 Coreg - PO BID [facility] Epoetin Lawrence 5,000 unit 04/20/17 18:16 Epogen - IVPUSH 04/20/17 18:17 ONCE ONE Heparin Sodium (Porcine) 1,000 unit 04/19/17 11:46 Heparin - IVPUSH PRN PRN Heparin Heparin Sodium (Porcine) 5,000 unit 04/19/17 11:46 04/20/17 04:12 Heparin - IVPUSH 5,000 unit PRN PRN Administration Heparin Piperacillin Sod/Tazobactam Sod 2.25 gm in 50 mls @ 100 mls/hr 04/19/17 12:15 04/20/17 02:05 Zosyn 2.25gm Ivpb (Pre-Docked) IVPB 100 mls/hr Q8H-IV [facility] Administration Protocol Heparin Sodium/Dextrose 25,000 units in 500 mls @ 20 mls/hr 04/19/17 12:00 03:59 Heparin Infusion - IVPB 1,450 units/hr TITR [facility] 29 mls/hr Protocol Titration 1,000 UNITS/HR Insulin Aspart 1 vial 04/19/17 07:00 04/20/17 06:02 Novolog Vial Sliding Scale - SQ Not Given ACHS [facility] Protocol ASSESSMENT/PLAN: 56M with PMH of DM, ESRD (on HD TTS), PVD, OM, 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 # Left LE ischemia - Heparin drip - Vascular Surgery (Dr. Sheets) recs appreciated: f/u CTA - vascular checks q4hr # Left LE wound infection - Day 2 of IV Vanc/Zosyn - blood culture (-) x 24 hrs - f/u wound culture - wound care per Podiatry (Dr. Alcantara) # ESRD on HD - Nephrology (Dr. Win) recs appreciated: epogen given for anemia, HD after CTA today # DM - BGMs - SSI # FEN - Fluids: po - Electrolytes: continue to monitor - Nutrition: renal, diabetic diet # Prophylaxis - DVT ppx with Heparin drip - deconditioning ppx with PT Visit type - Emergency Visit Emergency Visit: Yes ED Registration Date: 04/18/17 Care time: The patient presented to the Emergency Department on the above date and was hospitalized for further evaluation of their emergent condition. - New Patient This patient is new to me today: No - Critical Care Critical Care patient: No <Simon Tabares - Last Filed: 04/20/17 14:58> Physical Exam: Patient seen and examined with resident. Agree with above findings and plan of care. patient overall unchanged. O/E: LLE - 2+ pulses with doppler, warm to touch. Left great toe with blister. Nail bed missing. No pus expressed with palpation. Second toe with two dried ulcers over dorsal aspect of toe. bluish discoloration of left great and 2nd toe, Other toes appear slightly discolored with varying level down to base of toes. Forefoot and plantar surface with sensation. Plan: -LLE ischemia -LLE wound infection -ESRD on HD -DM -PVD -OM -CVA x 2 s/p CTA today, will follow up results. Continue heparin drip. Intervention per vascular. Zosyn/vanco day 2, renal dosing. Follow up podiatry recs. ISS, diabetic diet. Dispo pending resolution of medical issues. Plan discussed with patient and all questions answered.
[2017-04-20] MEDS: CARVEDILOL 12.5 MG TABLET (FP) PO SCH ×2 (10:57→22:19)
[2017-04-20] MEDS ORDERED: VANCOMYCIN 1,000 MG in DEXTROSE 5%-WATER - 250 ML IVPB ONE (11:21)
--- NOTE | 2017-04-20 11:27 | PN ---
Progress Note, Physician History of Present Illness: No c/o foot pain at rest No fever/ chills CTA performed today Results pending - Current Medication List Current Medications: Active Medications Calcium Acetate (Phoslo -) 667 mg PO TIDCM [facility] Last Admin: 04/20/17 08:14 Dose: Not Given Carvedilol (Coreg -) 12.5 mg PO BID [facility] Last Admin: 04/20/17 10:57 Dose: Not Given Epoetin Lawrence (Epogen -) 5,000 unit IVPUSH ONCE ONE Stop: 04/20/17 18:17 Heparin Sodium (Porcine) (Heparin -) 1,000 unit IVPUSH PRN PRN PRN Reason: Heparin Heparin Sodium (Porcine) (Heparin -) 5,000 unit IVPUSH PRN PRN PRN Reason: Heparin Last Admin: 04/20/17 04:12 Dose: 5,000 unit Piperacillin Sod/Tazobactam Sod (Zosyn 2.25gm Ivpb (Pre-Docked)) 2.25 gm in 50 mls @ 100 mls/hr IVPB Q8H-IV [facility] PRN Reason: Protocol Last Admin: 04/20/17 02:05 Dose: 100 mls/hr Heparin Sodium/Dextrose (Heparin Infusion -) 25,000 units in 500 mls @ 20 mls/ hr IVPB TITR [facility]; 1,000 UNITS/HR PRN Reason: Protocol Last Titration: 04/20/17 03:59 Dose: 1,450 units/hr, 29 mls/hr Vancomycin HCl 1,000 mg/ (Dextrose) 250 mls @ 200 mls/hr IVPB ONCE ONE Stop: 04/20/17 12:35 Insulin Aspart (Novolog Vial Sliding Scale -) 1 vial SQ ACHS [facility] PRN Reason: Protocol Last Admin: 04/20/17 06:02 Dose: Not Given - Objective Vital Signs: Vital Signs Temperature 97.2 F L 04/20/17 10:53 Pulse Rate 72 04/20/17 10:53 Respiratory Rate 20 04/20/17 10:53 Blood Pressure 104/65 04/20/17 10:53 O2 Sat by Pulse Oximetry (%) 98 04/19/17 21:00 Constitutional: Yes: No Distress Eyes: Yes: Conjunctiva Clear Cardiovascular: Yes: Regular Rate and Rhythm, S1, S2 Respiratory: Yes: CTA Bilaterally Gastrointestinal: Yes: Normal Bowel Sounds, Soft, Abdomen, Obese. No: Tenderness Extremities: Yes: Other (L foot warm. + cyanosis R 2nd toe with 2 dry necrotic ulcers on dorsum of toe. + dry callous on distal aspect R great toe) Labs: CBC, BMP 04/20/17 07:15 04/20/17 07:15 INR, PTT INR 1.18 (0.82-1.09) H 04/19/17 07:35 Assessment/Plan Ischemic v. infected R great and 2nd toes ESRD Await CTA results Continue zosyn Redose vancomycin
[2017-04-20] MEDS ORDERED: INSULIN (NOVOLOG) ASPART 100 UNITS/ML 10ML VIAL ONE ×3 (11:53→18:22)
--- NOTE | 2017-04-20 11:54 | CONSULT ---
Consult - text type - Consultation Consultation Note: Podiatry Consultation: 56 year old DM, ESRD M well known to me from wound healing center, sent in for admission from wound healing center yesterday for ischemic changes L foot. Patient notes increased redness/pain to the left foot for several days. Denies F/V/N/C/SOB/CP. Afebrile, VSS. PMHx: DM, HTN, ESRD on HD, CVA x 2 Meds: noted ALL: shellfish, bactrim KEEGAN: L foot: pedal pulses non-palpable, dopplerable, TG wnl, CFT delayed to hallux and second digit. There is a distal tuft ulcer hallux with seropurulent drainage, fibrogranular base, no probing to bone, no deep purulence, no soft tissue crepitus, moderate periwound erythema. Dry eschars dorsal 2nd digit, no purulent drainage, no fluctuance, no soft tissue crepitus, no ascending cellulitis, no active signs of infection. Duskiness to distal tips of hallux and second digit. WBC: 7.3 ESR: 69 L foot XR: no change to prior XR, no acute changes noted Imp: 56 year old DM, ESRD M with L great toe ulcer, ischemic changes 1. IV abx per ID 2. Recommend MRI L foot to evaluate for osteomyelitis, acute or chronic 3. Awaiting CTA results. May need vascular intervention, vascular on the case. 4. Wound culture L great toe 5. Rx santyl L great toe 6. Will follow Amarilis Alcantara DPM
[2017-04-20] MEDS: HEPARIN INFUSION - 25,000 UNITS/500 ML INFUS.BAG IVPB SCH ×2 (13:55→20:11)
[2017-04-20] MEDS ORDERED: EPOETIN ALFA 2,000 UNIT/1 ML VIAL IVPUSH ONE (14:00)
--- NOTE | 2017-04-20 16:34 | PN ---
Progress Note, Physician History of Present Illness: Pt seen and examined at bedside. He is currently getting HD. He denies shortness of breath. - Current Medication List Current Medications: Active Medications Calcium Acetate (Phoslo -) 667 mg PO TIDCM [facility] Last Admin: 04/20/17 12:00 Dose: 667 mg Carvedilol (Coreg -) 12.5 mg PO BID [facility] Last Admin: 04/20/17 10:57 Dose: Not Given Collagenase (Santyl -) 1 applic TP DAILY [facility] Heparin Sodium (Porcine) (Heparin -) 1,000 unit IVPUSH PRN PRN PRN Reason: Heparin Last Admin: 04/20/17 13:54 Dose: 1,000 unit Heparin Sodium (Porcine) (Heparin -) 5,000 unit IVPUSH PRN PRN PRN Reason: Heparin Last Admin: 04/20/17 04:12 Dose: 5,000 unit Piperacillin Sod/Tazobactam Sod (Zosyn 2.25gm Ivpb (Pre-Docked)) 2.25 gm in 50 mls @ 100 mls/hr IVPB Q8H-IV [facility] PRN Reason: Protocol Last Admin: 04/20/17 11:48 Dose: 100 mls/hr Heparin Sodium/Dextrose (Heparin Infusion -) 25,000 units in 500 mls @ 20 mls/ hr IVPB TITR [facility]; 1,000 UNITS/HR PRN Reason: Protocol Last Admin: 04/20/17 13:55 Dose: 1,550 units/hr, 31 mls/hr Insulin Aspart (Novolog Vial Sliding Scale -) 1 vial SQ ACHS [facility] PRN Reason: Protocol Last Admin: 04/20/17 11:55 Dose: 2 units Multi-Ingredient Lotion (Eucerin (Large Jar) -) 1 applic TP DAILY PRN PRN Reason: DRY SKIN - Objective Vital Signs: Vital Signs Temperature 97.7 F 04/20/17 13:15 Pulse Rate 78 04/20/17 16:18 Respiratory Rate 18 04/20/17 16:18 Blood Pressure 136/88 04/20/17 16:18 O2 Sat by Pulse Oximetry (%) 95 04/20/17 10:00 Constitutional: Yes: Calm Eyes: Yes: Conjunctiva Clear HENT: Yes: Atraumatic Neck: Yes: Supple Cardiovascular: Yes: S1, S2 Respiratory: Yes: CTA Bilaterally Gastrointestinal: Yes: Soft, Abdomen, Obese Genitourinary: Yes: WNL Edema: Yes (hx lymphedema) Integumentary: Yes: Erythema, Venous Stasis Changes Neurological: Yes: Oriented Psychiatric: Yes: Oriented Labs: CBC, BMP 04/20/17 07:15 04/20/17 07:15 INR, PTT INR 1.18 (0.82-1.09) H 04/19/17 07:35 Problem List - Problems (1) ESRD (end stage renal disease) Code(s): N18.6 - END STAGE RENAL DISEASE (2) PVD (peripheral vascular disease) Code(s): I73.9 - PERIPHERAL VASCULAR DISEASE, UNSPECIFIED (3) Anemia Code(s): D64.9 - ANEMIA, UNSPECIFIED Qualifiers: Anemia type: other cause Other causes of anemia: other cause, not classified Qualified Code(s): D64.89 - Other specified anemias (4) DM type 2, uncontrolled, with renal complications Code(s): E11.29 - TYPE 2 DIABETES MELLITUS W OTH DIABETIC KIDNEY COMPLICATION; E11.65 - TYPE 2 DIABETES MELLITUS WITH HYPERGLYCEMIA Assessment/Plan Current Medications Generic Name Dose Route Start Last Admin Trade Name Freq PRN Reason Stop Dose Admin Calcium Acetate 667 mg 04/20/17 08:00 04/20/17 12:00 Phoslo - PO 667 mg TIDCM [facility] Administration Carvedilol 12.5 mg 04/20/17 10:00 04/20/17 10:57 Coreg - PO Not Given BID [facility] Collagenase 1 applic 04/21/17 10:00 Santyl - TP DAILY [facility] Heparin Sodium (Porcine) 1,000 unit 04/19/17 11:46 04/20/17 13:54 Heparin - IVPUSH 1,000 unit PRN PRN Administration Heparin Heparin Sodium (Porcine) 5,000 unit 04/19/17 11:46 04/20/17 04:12 Heparin - IVPUSH 5,000 unit PRN PRN Administration Heparin Piperacillin Sod/Tazobactam Sod 2.25 gm in 50 mls @ 100 mls/hr 04/19/17 12:15 04/20/17 11:48 Zosyn 2.25gm Ivpb (Pre-Docked) IVPB 100 mls/hr Q8H-IV [facility] Administration Protocol Heparin Sodium/Dextrose 25,000 units in 500 mls @ 20 mls/hr 04/19/17 12:00 13:55 Heparin Infusion - IVPB 1,550 units/hr TITR [facility] 31 mls/hr Protocol Administration 1,000 UNITS/HR Insulin Aspart 1 vial 04/19/17 07:00 04/20/17 11:55 Novolog Vial Sliding Scale - SQ 2 units ACHS [facility] Administration Protocol Multi-Ingredient Lotion 1 applic 04/20/17 14:43 Eucerin (Large Jar) - TP DAILY PRN DRY SKIN Impression 1. ESRD 2. anemia 3. HTN 4. morbid obesity 5. CVA 6. hyperlipidemia 7. proteinuria - nephrotic 8. PVD Plan - HD today - cont epogen - vascular surgery follow up - podiatry input appreciated - cont wound care - pt can not have contrast with MRI - discussed case with pt Dr Win
[2017-04-20] MEDS: PANTOPRAZOLE 20 MG TABLET (FP) PO SCH (18:18)
[2017-04-20] MEDS: ATORVASTATIN CA 80 MG TABLET (FP) PO SCH (22:19)
[2017-04-21] MEDS: PIPERACILLIN/TAZOB 2.25 GM 2.25 GM/50 ML BAG IVPB SCH ×2 (01:23→09:18)
[2017-04-21] MEDS: INSULIN SLIDING SCALE (NOVOLOG) 1 VIAL SQ SCH ×4 (06:26→22:03)
--- NOTE | 2017-04-21 08:38 | PN ---
Progress Note (short form) - Note Progress Note: Less pain in left foot exam unchanged CTA shows normal vascular tree to level of distal popliteal with tibial artery calcification bilaterally. There does not appear to be any complete occlusions but study does not adequately show distal vessels. Official reading is not done yet. Arterial Doppler and PVR ordered today to assess distal flow. If flow to transmet level is adequate there is no need for vascular intervention.
[2017-04-21 08:50] LABS: ANION GAP 13 (8-16); BLOOD UREA NITROGEN 39 mg/dL (7-18); CALCIUM 8.4 mg/dL (8.5-10.1); CHLORIDE 100 mmol/L (98-107); CO2 27 mmol/L (21-32); CREATININE 6.3 mg/dL (0.7-1.3); GLUCOSE,RANDOM 110 mg/dL (74-106); MAGNESIUM 2.5 mg/dL (1.8-2.4); PHOSPHOROUS 5.8 mg/dL (2.5-4.9); POTASSIUM 4.1 mmol/L (3.5-5.1); SODIUM 140 mmol/L (136-145)
[2017-04-21] MEDS: CALCIUM ACETATE 667 MG CAPSULE (FP) PO SCH ×3 (08:53→18:12)
[2017-04-21] MEDS ORDERED: PT OWN MED DRAWER 7, Y5N ONE (09:12)
[2017-04-21] MEDS: CARVEDILOL 12.5 MG TABLET (FP) PO SCH ×2 (09:17→21:56)
[2017-04-21] MEDS: HEPARIN NA (PORCINE) 5,000 UNITS/ML 1ML VIAL IVPUSH PRN ×2 (09:17→18:34)
[2017-04-21] MEDS: PREGABALIN 75 MG CAPSULE PO SCH (09:17)
[2017-04-21] MEDS: PANTOPRAZOLE 20 MG TABLET (FP) PO SCH (09:17)
[2017-04-21] MEDS: COLLAGENASE CLOSTRIDIUM HIST. 30 GRAMS TUBE TP SCH (09:18)
[2017-04-21] MEDS: TORSEMIDE 20 MG TABLET (FP) PO SCH (09:19)
[2017-04-21 10:49] LABS: BASO % 3.7 % (0-2.0); EOS % 10.9 % (0-4.5); HEMATOCRIT 34.2 % (35.4-49); HEMOGLOBIN 10.9 GM/dL (11.7-16.9); LYMPH % 19.5 % (8-40); MCH 29.5 pg (25.7-33.7); MCHC 31.9 g/dl (32.0-35.9); MEAN CELL VOLUME 92.5 fl (80-96); MEAN PLT VOLUME 9.7 fl (7.5-11.1); MONO % 9.9 % (3.8-10.2); PLATELET COUNT 190 K/MM3 (134-434); RDW 17.2 % (11.9-15.9); WHITE BLOOD COUNT 6.7 K/mm3 (4.0-10.0)
[2017-04-21] MEDS ORDERED: INSULIN (NOVOLOG) ASPART 100 UNITS/ML 10ML VIAL ONE ×3 (12:35→22:01)
[2017-04-21] MEDS: HEPARIN INFUSION - 25,000 UNITS/500 ML INFUS.BAG IVPB SCH (12:45)
--- NOTE | 2017-04-21 16:07 | PN ---
Progress Note, Physician History of Present Illness: No c/o foot pain No fever/ chills Wound c/s S. aureus - Current Medication List Current Medications: Active Medications Atorvastatin Calcium (Lipitor -) 80 mg PO HS [facility] Last Admin: 04/20/17 22:19 Dose: 80 mg Calcium Acetate (Phoslo -) 667 mg PO TIDCM [facility] Last Admin: 04/21/17 12:47 Dose: 667 mg Carvedilol (Coreg -) 12.5 mg PO BID [facility] Last Admin: 04/21/17 09:17 Dose: 12.5 mg Collagenase (Santyl -) 1 applic TP DAILY [facility] Last Admin: 04/21/17 09:18 Dose: 1 applic Heparin Sodium (Porcine) (Heparin -) 1,000 unit IVPUSH PRN PRN PRN Reason: Heparin Last Admin: 04/20/17 22:50 Dose: 1,000 unit Heparin Sodium (Porcine) (Heparin -) 5,000 unit IVPUSH PRN PRN PRN Reason: Heparin Last Admin: 04/21/17 09:17 Dose: 5,000 unit Piperacillin Sod/Tazobactam Sod (Zosyn 2.25gm Ivpb (Pre-Docked)) 2.25 gm in 50 mls @ 100 mls/hr IVPB Q8H-IV [facility] PRN Reason: Protocol Last Admin: 04/21/17 09:18 Dose: 100 mls/hr Heparin Sodium/Dextrose (Heparin Infusion -) 25,000 units in 500 mls @ 20 mls/ hr IVPB TITR [facility]; 1,000 UNITS/HR PRN Reason: Protocol Last Admin: 04/21/17 12:45 Dose: 1,750 units/hr, 35 mls/hr Insulin Aspart (Novolog Vial Sliding Scale -) 1 vial SQ ACHS [facility] PRN Reason: Protocol Last Admin: 04/21/17 12:43 Dose: 2 units Multi-Ingredient Lotion (Eucerin (Large Jar) -) 1 applic TP DAILY PRN PRN Reason: DRY SKIN Pantoprazole Sodium (Protonix -) 20 mg PO DAILY [facility] Last Admin: 04/21/17 09:17 Dose: 20 mg Pregabalin (Lyrica -) 75 mg PO DAILY [facility] Last Admin: 04/21/17 09:17 Dose: 75 mg Torsemide (Demadex -) 80 mg PO DAILY [facility] Last Admin: 04/21/17 09:19 Dose: 80 mg - Objective Vital Signs: Vital Signs Temperature 98.8 F 04/21/17 14:49 Pulse Rate 57 L 04/21/17 14:49 Respiratory Rate 18 04/21/17 14:49 Blood Pressure 127/57 04/21/17 14:49 O2 Sat by Pulse Oximetry (%) 98 04/20/17 21:00 Constitutional: Yes: No Distress, Obese Eyes: Yes: Conjunctiva Clear Cardiovascular: Yes: Regular Rate and Rhythm, S1, S2 Respiratory: Yes: CTA Bilaterally Gastrointestinal: Yes: Normal Bowel Sounds, Soft, Abdomen, Obese. No: Tenderness Extremities: Yes: Other (distal L great toe debrided. +Hyperemia L great and second toes. + dry necrotic ulcers dorsum L second toe. Dusky appearance, 5th toe) Edema: Yes Edema: LLE: 2+ Labs: CBC, BMP 04/21/17 08:00 04/21/17 08:00 INR, PTT INR 1.18 (0.82-1.09) H 04/19/17 07:35 Assessment/Plan Ischemic v. infected R great and 2nd toes ESRD Substitute ceftriaxone daily Local wound care
[2017-04-21] MEDS: MINERAL OIL/PETROLAT/WATER TOPICAL CREAM 454 GM JAR TP PRN (16:31)
[2017-04-21] MEDS: CEFTRIAXONE IN IS-OSM DEXTROSE 2 GM/50 ML BAG IVPB SCH (16:31)
--- NOTE | 2017-04-21 17:20 | PN ---
Physical Exam: SUBJECTIVE: Patient seen and examined. No complaints. Pt denies chest pain, sob, abdominal pain, nausea, vomiting, fever, chills. OBJECTIVE: Vital Signs Period Temp Pulse Resp BP Sys/Leon Pulse Ox Last 24 Hr 97.8 F-99.5 F 57-75 18-20 103-143/54-83 98 GENERAL: The patient is awake, alert, and fully oriented, in no acute distress. LUNGS: Breath sounds equal, clear to auscultation bilaterally, no wheezes, no crackles, no accessory muscle use. HEART: Regular rate and rhythm, S1, S2 without murmur, rub or gallop. ABDOMEN: Soft, nontender, nondistended, no guarding. EXTREMITIES: carlyn LE with thickened skin. Left great toe with indurated lesion at tip, no pus expressed on palpation. Left 2nd toe with two areas of eschar ~ 1cm each. Bluish discoloration and loss of sensation to Left 1st and 2nd toe. No edema. PSYCH: Normal mood, normal affect. SKIN: Warm, dry, normal turgor, no rashes or lesions noted Laboratory Results - last 24 hr 04/20/17 04/20/17 04/20/17 18:00 18:12 20:55 WBC RBC Hgb Hct MCV MCH MCHC RDW Plt Count MPV Neutrophils % Lymphocytes % Monocytes % Eosinophils % Basophils % PTT (Actin FS) 40.2 H Sodium Potassium Chloride Carbon Dioxide Anion Gap BUN Creatinine POC Glucometer 154 252 Random Glucose Calcium Phosphorus Magnesium 04/21/17 04/21/17 04/21/17 06:03 06:15 08:00 WBC 6.7 RBC 3.70 L Hgb 10.9 L Hct 34.2 L MCV 92.5 MCH 29.5 MCHC 31.9 L RDW 17.2 H Plt Count 190 MPV 9.7 Neutrophils % 56.0 Lymphocytes % 19.5 Monocytes % 9.9 Eosinophils % 10.9 H Basophils % 3.7 H PTT (Actin FS) 37.4 H Sodium Potassium Chloride Carbon Dioxide Anion Gap BUN Creatinine POC Glucometer 139 Random Glucose Calcium Phosphorus Magnesium 04/21/17 04/21/17 04/21/17 08:00 12:20 16:16 WBC RBC Hgb Hct MCV MCH MCHC RDW Plt Count MPV Neutrophils % Lymphocytes % Monocytes % Eosinophils % Basophils % PTT (Actin FS) Sodium 140 Potassium 4.1 Chloride 100 Carbon Dioxide 27 D Anion Gap 13 BUN 39 H D Creatinine 6.3 H D POC Glucometer 159 194 Random Glucose 110 H Calcium 8.4 L Phosphorus 5.8 H Magnesium 2.5 H Active Medications Generic Name Dose Route Start Last Admin Trade Name Freq PRN Reason Stop Dose Admin Atorvastatin Calcium 80 mg 04/20/17 22:00 04/20/17 22:19 Lipitor - PO 80 mg HS [facility] Administration Calcium Acetate 1,334 mg 04/21/17 17:30 Phoslo - PO TIDCM [facility] Carvedilol 12.5 mg 04/20/17 10:00 04/21/17 09:17 Coreg - PO 12.5 mg BID [facility] Administration Collagenase 1 applic 04/21/17 10:00 04/21/17 09:18 Santyl - TP 1 applic DAILY [facility] Administration Heparin Sodium (Porcine) 1,000 unit 04/19/17 11:46 04/20/17 22:50 Heparin - IVPUSH 1,000 unit PRN PRN Administration Heparin Heparin Sodium (Porcine) 5,000 unit 04/19/17 11:46 04/21/17 09:17 Heparin - IVPUSH 5,000 unit PRN PRN Administration Heparin Heparin Sodium/Dextrose 25,000 units in 500 mls @ 20 mls/hr 04/19/17 12:00 12:45 Heparin Infusion - IVPB 1,750 units/hr TITR [facility] 35 mls/hr Protocol Administration 1,000 UNITS/HR CEFTRIAXONE IN IS-OSM DEXTROSE 2 gm in 50 mls @ 100 mls/hr 04/21/17 16:15 16:31 Ceftriaxone 2 Gm-D5w Bag IVPB 100 mls/hr DAILY [facility] Administration Insulin Aspart 1 vial 04/19/17 07:00 04/21/17 16:17 Novolog Vial Sliding Scale - SQ 2 units ACHS [facility] Administration Protocol Multi-Ingredient Lotion 1 applic 04/20/17 14:43 04/21/17 16:31 Eucerin (Large Jar) - TP 1 applic DAILY PRN Administration DRY SKIN Pantoprazole Sodium 20 mg 04/20/17 17:00 04/21/17 09:17 Protonix - PO 20 mg DAILY [facility] Administration Pregabalin 75 mg 04/21/17 10:00 04/21/17 09:17 Lyrica - PO 75 mg DAILY [facility] Administration Torsemide 80 mg 04/21/17 10:00 04/21/17 09:19 Demadex - PO 80 mg DAILY [facility] Administration IMAGIN04/20/17 CTA -> diffuse mural calcification with no significant luminal stenosis ASSESSMENT/PLAN: 56M with PMH of DM, ESRD (on HD TTS), PVD, OM, 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 # Left LE ischemia - Heparin drip - Vascular Surgery (Dr. Sheets) recs appreciated: no vascular intervention at this time - f/u arterial dopplers - vascular checks q4hr # Left LE wound infection - Day 1 of IV Ceftriaxone (Day 3 of IV antibiotics) - blood culture (-) x 72 hrs - wound culture (+) for presumptive MSSA and Diphtheroid/Corynebacterium - wound care per Podiatry (Dr. Alcantara) -> consider bone scan # ESRD on HD - Nephrology (Dr. Win) recs appreciated: continue epogen - 4kg removed via HD yesterday - HD scheduled for tomorrow # DM - BGMs - SSI # FEN - Fluids: po - Electrolytes: hyperphosphatemia noted, HD tomorrow, continue to monitor - Nutrition: renal, diabetic diet # Prophylaxis - DVT ppx with Heparin drip - deconditioning ppx with PT Visit type - Emergency Visit Emergency Visit: Yes ED Registration Date: 04/18/17 Care time: The patient presented to the Emergency Department on the above date and was hospitalized for further evaluation of their emergent condition. - New Patient This patient is new to me today: No - Critical Care Critical Care patient: No
--- NOTE | 2017-04-21 17:37 | PN ---
Progress Note, Physician History of Present Illness: Pt seen and examined at bedside. He is awake and alert. - Current Medication List Current Medications: Active Medications Atorvastatin Calcium (Lipitor -) 80 mg PO HS [facility] Last Admin: 04/20/17 22:19 Dose: 80 mg Calcium Acetate (Phoslo -) 1,334 mg PO TIDCM [facility] Carvedilol (Coreg -) 12.5 mg PO BID [facility] Last Admin: 04/21/17 09:17 Dose: 12.5 mg Collagenase (Santyl -) 1 applic TP DAILY [facility] Last Admin: 04/21/17 09:18 Dose: 1 applic Heparin Sodium (Porcine) (Heparin -) 1,000 unit IVPUSH PRN PRN PRN Reason: Heparin Last Admin: 04/20/17 22:50 Dose: 1,000 unit Heparin Sodium (Porcine) (Heparin -) 5,000 unit IVPUSH PRN PRN PRN Reason: Heparin Last Admin: 04/21/17 09:17 Dose: 5,000 unit Heparin Sodium/Dextrose (Heparin Infusion -) 25,000 units in 500 mls @ 20 mls/ hr IVPB TITR [facility]; 1,000 UNITS/HR PRN Reason: Protocol Last Admin: 18 12:45 Dose: 1,750 units/hr, 35 mls/hr CEFTRIAXONE IN IS-OSM DEXTROSE (Ceftriaxone 2 Gm-D5w Bag) 2 gm in 50 mls @ 100 mls/hr IVPB DAILY [facility] Last Admin: 04/21/17 16:31 Dose: 100 mls/hr Insulin Aspart (Novolog Vial Sliding Scale -) 1 vial SQ ACHS [facility] PRN Reason: Protocol Last Admin: 04/21/17 16:17 Dose: 2 units Multi-Ingredient Lotion (Eucerin (Large Jar) -) 1 applic TP DAILY PRN PRN Reason: DRY SKIN Last Admin: 04/21/17 16:31 Dose: 1 applic Pantoprazole Sodium (Protonix -) 20 mg PO DAILY [facility] Last Admin: 04/21/17 09:17 Dose: 20 mg Pregabalin (Lyrica -) 75 mg PO DAILY [facility] Last Admin: 04/21/17 09:17 Dose: 75 mg Torsemide (Demadex -) 80 mg PO DAILY [facility] Last Admin: 04/21/17 09:19 Dose: 80 mg - Objective Vital Signs: Vital Signs Temperature 98.8 F 04/21/17 14:49 Pulse Rate 57 L 04/21/17 14:49 Respiratory Rate 18 04/21/17 14:49 Blood Pressure 127/57 04/21/17 14:49 O2 Sat by Pulse Oximetry (%) 98 04/20/17 21:00 Constitutional: Yes: Calm Eyes: Yes: Conjunctiva Clear Cardiovascular: Yes: S1, S2 Respiratory: Yes: CTA Bilaterally Gastrointestinal: Yes: Soft, Abdomen, Obese Genitourinary: Yes: WNL Edema: Yes Neurological: Yes: Oriented Psychiatric: Yes: Oriented Labs: CBC, BMP 04/21/17 08:00 04/21/17 08:00 INR, PTT INR 1.18 (0.82-1.09) H 04/19/17 07:35 Problem List - Problems (1) ESRD (end stage renal disease) Code(s): N18.6 - END STAGE RENAL DISEASE (2) PVD (peripheral vascular disease) Code(s): I73.9 - PERIPHERAL VASCULAR DISEASE, UNSPECIFIED (3) Anemia Code(s): D64.9 - ANEMIA, UNSPECIFIED Qualifiers: Anemia type: other cause Other causes of anemia: other cause, not classified Qualified Code(s): D64.89 - Other specified anemias (4) DM type 2, uncontrolled, with renal complications Code(s): E11.29 - TYPE 2 DIABETES MELLITUS W OTH DIABETIC KIDNEY COMPLICATION; E11.65 - TYPE 2 DIABETES MELLITUS WITH HYPERGLYCEMIA Assessment/Plan Current Medications Generic Name Dose Route Start Last Admin Trade Name Freq PRN Reason Stop Dose Admin Atorvastatin Calcium 80 mg 04/20/17 22:00 04/20/17 22:19 Lipitor - PO 80 mg HS [facility] Administration Calcium Acetate 1,334 mg 04/21/17 17:30 Phoslo - PO TIDCM [facility] Carvedilol 12.5 mg 04/20/17 10:00 04/21/17 09:17 Coreg - PO 12.5 mg BID [facility] Administration Collagenase 1 applic 04/21/17 10:00 04/21/17 09:18 Santyl - TP 1 applic DAILY [facility] Administration Heparin Sodium (Porcine) 1,000 unit 04/19/17 11:46 04/20/17 22:50 Heparin - IVPUSH 1,000 unit PRN PRN Administration Heparin Heparin Sodium (Porcine) 5,000 unit 04/19/17 11:46 02/16/18 09:17 Heparin - IVPUSH 5,000 unit PRN PRN Administration Heparin Heparin Sodium/Dextrose 25,000 units in 500 mls @ 20 mls/hr 04/19/17 12:00 12:45 Heparin Infusion - IVPB 1,750 units/hr TITR [facility] 35 mls/hr Protocol Administration 1,000 UNITS/HR CEFTRIAXONE IN IS-OSM DEXTROSE 2 gm in 50 mls @ 100 mls/hr 04/21/17 16:15 16:31 Ceftriaxone 2 Gm-D5w Bag IVPB 100 mls/hr DAILY [facility] Administration Insulin Aspart 1 vial 04/19/17 07:00 04/21/17 16:17 Novolog Vial Sliding Scale - SQ 2 units ACHS [facility] Administration Protocol Multi-Ingredient Lotion 1 applic 04/20/17 14:43 04/21/17 16:31 Eucerin (Large Jar) - TP 1 applic DAILY PRN Administration DRY SKIN Pantoprazole Sodium 20 mg 04/20/17 17:00 04/21/17 09:17 Protonix - PO 20 mg DAILY [facility] Administration Pregabalin 75 mg 04/21/17 10:00 04/21/17 09:17 Lyrica - PO 75 mg DAILY [facility] Administration Torsemide 80 mg 04/21/17 10:00 04/21/17 09:19 Demadex - PO 80 mg DAILY [facility] Administration Impression 1. ESRD 2. anemia 3. HTN 4. morbid obesity 5. CVA 6. hyperlipidemia 7. proteinuria - nephrotic 8. PVD Plan - will arrange for HD in am - vascular follow up - cont epogen - cont wound care - discussed case with pt Dr Win
--- NOTE | 2017-04-21 18:46 | PN ---
Teaching Attending Note Name of Resident: Pao Randall ATTENDING PHYSICIAN STATEMENT Time of evaluation: 2:00 PM I saw and evaluated the patient. I reviewed the resident's note and discussed the case with the resident. I agree with the resident's findings and plan as documented. SUBJECTIVE: Patient seen and examined. no new leg pain or complaints. Overall unchanged. OBJECTIVE: Vital Signs Period Temp Pulse Resp BP Sys/Leon Pulse Ox Last 24 Hr 97.8 F-99.5 F 57-75 18-20 103-127/54-66 98 Intake & Output 04/18/17 04/19/17 04/20/17 04/21/17 23:59 23:59 23:59 23:59 Intake Total 560 1818 1338 Output Total 750 Balance 560 1068 1338 Weight 376 lb 15.847 oz 381 lb General: sitting in bed in no acute distress Extremities: unchanged exam with ulceration and skin discoloration. Home Medication List Medication Instructions Recorded Confirmed Type Omeprazole [Prilosec (RX)] 20 mg PO DAILY 08/13/14 04/19/17 History Atorvastatin Ca [Lipitor] 80 mg PO HS 05/24/16 04/19/17 History Calcium Acetate [Phoslo -] 667 mg PO TIDCM 05/24/16 04/19/17 History Carvedilol 12.5 mg PO BID 05/24/16 04/19/17 History Torsemide 80 mg PO DAILY 05/24/16 03/08/17 History Ferrous Sulfate [Feosol] 1 tab PO DAILY 08/02/16 03/08/17 History Albuterol Sulfate [Proair 90 mcg IH BID 11/13/16 03/08/17 History Respiclick] Cholecalciferol (Vitamin D3) 2,000 unit PO DAILY 11/13/16 03/08/17 History [Vitamin D3] Glipizide 5 mg PO BID 04/19/17 04/19/17 History Nifedipine ER [Procardia XL -] 90 mg PO DAILY 04/19/17 04/19/17 History Pregabalin [Lyrica -] 75 mg PO DAILY [facility] 50 mg 04/19/17 04/19/17 History Active Medications Generic Name Dose Route Start Last Admin Trade Name Freq PRN Reason Stop Dose Admin Atorvastatin Calcium 80 mg 04/20/17 22:00 02/15/18 22:19 Lipitor - PO 80 mg HS [facility] Administration Calcium Acetate 1,334 mg 04/21/17 17:30 04/21/17 18:12 Phoslo - PO 1,334 mg TIDCM [facility] Administration Carvedilol 12.5 mg 04/20/17 10:00 04/21/17 09:17 Coreg - PO 12.5 mg BID [facility] Administration Collagenase 1 applic 04/21/17 10:00 04/21/17 09:18 Santyl - TP 1 applic DAILY [facility] Administration Epoetin [place] 5,000 unit 04/22/17 17:38 Epogen - IVPUSH 04/22/17 17:39 ONCE ONE Heparin Sodium (Porcine) 1,000 unit 04/19/17 11:46 04/21/17 18:34 Heparin - IVPUSH 1,000 unit PRN PRN Administration Heparin Heparin Sodium (Porcine) 5,000 unit 04/19/17 11:46 04/21/17 09:17 Heparin - IVPUSH 5,000 unit PRN PRN Administration Heparin Heparin Sodium/Dextrose 25,000 units in 500 mls @ 20 mls/hr 04/19/17 12:00 18:35 Heparin Infusion - IVPB 1,850 units/hr TITR [facility] 37 mls/hr Protocol Titration 1,000 UNITS/HR CEFTRIAXONE IN IS-OSM DEXTROSE 2 gm in 50 mls @ 100 mls/hr 04/21/17 16:15 16:31 Ceftriaxone 2 Gm-D5w Bag IVPB 100 mls/hr DAILY [facility] Administration Insulin Aspart 1 vial 04/19/17 07:00 04/21/17 16:17 Novolog Vial Sliding Scale - SQ 2 units ACHS [facility] Administration Protocol Multi-Ingredient Lotion 1 applic 04/20/17 14:43 04/21/17 16:31 Eucerin (Large Jar) - TP 1 applic DAILY PRN Administration DRY SKIN Pantoprazole Sodium 20 mg 04/20/17 17:00 04/21/17 09:17 Protonix - PO 20 mg DAILY [facility] Administration Pregabalin 75 mg 04/21/17 10:00 04/21/17 09:17 Lyrica - PO 75 mg DAILY [facility] Administration Torsemide 80 mg 04/21/17 10:00 04/21/17 09:19 Demadex - PO 80 mg DAILY [facility] Administration Laboratory Results - last 24 hr 04/20/17 04/20/17 04/21/17 18:00 20:55 06:03 WBC RBC Hgb Hct MCV MCH MCHC RDW Plt Count MPV Neutrophils % Lymphocytes % Monocytes % Eosinophils % Basophils % PTT (Actin FS) 40.2 H Sodium Potassium Chloride Carbon Dioxide Anion Gap BUN Creatinine POC Glucometer 252 139 Random Glucose Calcium Phosphorus Magnesium 04/21/17 04/21/17 04/21/17 06:15 08:00 08:00 WBC 6.7 RBC 3.70 L Hgb 10.9 L Hct 34.2 L MCV 92.5 MCH 29.5 MCHC 31.9 L RDW 17.2 H Plt Count 190 MPV 9.7 Neutrophils % 56.0 Lymphocytes % 19.5 Monocytes % 9.9 Eosinophils % 10.9 H Basophils % 3.7 H PTT (Actin FS) 37.4 H Sodium 140 Potassium 4.1 Chloride 100 Carbon Dioxide 27 D Anion Gap 13 BUN 39 H D Creatinine 6.3 H D POC Glucometer Random Glucose 110 H Calcium 8.4 L Phosphorus 5.8 H Magnesium 2.5 H 04/21/17 04/21/17 04/21/17 12:20 15:40 16:16 WBC RBC Hgb Hct MCV MCH MCHC RDW Plt Count MPV Neutrophils % Lymphocytes % Monocytes % Eosinophils % Basophils % PTT (Actin FS) 40.5 H Sodium Potassium Chloride Carbon Dioxide Anion Gap BUN Creatinine POC Glucometer 159 194 Random Glucose Calcium Phosphorus Magnesium Microbiology 04/20/17 12:20 Foot - Left Gram Stain - Final 04/20/17 12:20 Foot - Left Wound Culture - Preliminary Presumptive Mssa (Pbp2a Neg) Diphtheroid/Corynebacterium 04/18/17 18:00 Blood - Peripheral Venous Blood Culture - Preliminary NO GROWTH OBTAINED AFTER 48 HOURS, INCUBATION TO CONTINUE FOR 3 DAYS. 04/18/17 18:00 Blood - Peripheral Venous Blood Culture - Preliminary NO GROWTH OBTAINED AFTER 48 HOURS, INCUBATION TO CONTINUE FOR 3 DAYS. ASSESSMENT AND PLAN: 56 y/o M w/PMH of ESRD (on HD TTS), DM, PVD, OM, CVAx2 (w/LLE residual weakness ) admitted with LLE ischemia +/- Wound infection. -LLE ischemia -LLE wound infection -ESRD on HD -DM -PVD -OM -CVA x 2 Plan: Vascular surgery input appreciated. Follow up arterial dopplers. Heparin drip per vascular. ID input noted, changed to Ceftriaxone. Blood cultures eng so far. Wound cultures noted. Unable to get MRI given 380 lbs weight. Discuss with Dr. Chirinos, follow up if needs ?operative intervention/debridement. ISS HD per renal Dispo planning pending vascular surgery/ID/Podiatry input. Plan discussed with patient in detail, all questions answered.
[2017-04-21] MEDS: ATORVASTATIN CA 80 MG TABLET (FP) PO SCH (21:56)
[2017-04-22] MEDS ORDERED: DOCUSATE SODIUM 100 MG CAPSULE (FP) PO ONE (00:33)
[2017-04-22] MEDS: HEPARIN INFUSION - 25,000 UNITS/500 ML INFUS.BAG IVPB SCH ×2 (03:24→17:30)
[2017-04-22] MEDS: HEPARIN NA (PORCINE) 5,000 UNITS/ML 1ML VIAL IVPUSH PRN ×2 (03:25→10:31)
[2017-04-22 06:09] LABS: HBSAG SCREEN Negative (Negative); HEP B CORE AB, TOT Negative (Negative)
[2017-04-22] MEDS: INSULIN SLIDING SCALE (NOVOLOG) 1 VIAL SQ SCH ×4 (06:21→21:33)
[2017-04-22] MEDS ORDERED: EPOETIN ALFA 10,000 UNIT/1 ML VIAL IVPUSH ONE (07:15)
[2017-04-22] MEDS: CALCIUM ACETATE 667 MG CAPSULE (FP) PO SCH ×3 (07:57→17:32)
[2017-04-22 08:04] LABS: BASO % 2.7 % (0-2.0); EOS % 11.7 % (0-4.5); HEMATOCRIT 31.8 % (35.4-49); HEMOGLOBIN 10.4 GM/dL (11.7-16.9); LYMPH % 23.9 % (8-40); MCH 30.1 pg (25.7-33.7); MCHC 32.9 g/dl (32.0-35.9); MEAN CELL VOLUME 91.6 fl (80-96); MEAN PLT VOLUME 9.6 fl (7.5-11.1); MONO % 10.2 % (3.8-10.2); NEUT % 51.5 % (42.8-82.8); PLATELET COUNT 201 K/MM3 (134-434); RBC 3.47 M/mm3 (4.00-5.60); RDW 16.4 % (11.9-15.9); WHITE BLOOD COUNT 6.6 K/mm3 (4.0-10.0)
--- NOTE | 2017-04-22 08:33 | PN ---
Physical Exam: SUBJECTIVE: Patient seen and examined. Pt c/o constipation. Pt denies chest pain, sob, abdominal pain, nausea, vomiting, fever, chills. OBJECTIVE: Vital Signs Period Temp Pulse Resp BP Sys/Leon Pulse Ox Last 24 Hr 98.8 F-99.5 F 57-75 18-19 111-136/54-67 95-97 GENERAL: The patient is awake, alert, and fully oriented, in no acute distress, pleasant. LUNGS: Breath sounds equal, clear to auscultation bilaterally, no wheezes, no crackles, no accessory muscle use. HEART: Regular rate and rhythm, S1, S2 without murmur, rub or gallop. ABDOMEN: Soft, nontender, nondistended, no guarding. EXTREMITIES: carlyn LE with thickened skin. Dressing to Left 1st and 2nd toes, CDI. No edema. PSYCH: Normal mood, normal affect. SKIN: Warm, dry, normal turgor, no rashes or lesions noted Laboratory Results - last 24 hr 04/20/17 04/20/17 04/21/17 13:20 13:20 15:40 WBC RBC Hgb Hct MCV MCH MCHC RDW Plt Count MPV Neutrophils % Lymphocytes % Monocytes % Eosinophils % Basophils % PTT (Actin FS) 40.5 H Sodium Potassium Chloride Carbon Dioxide Anion Gap BUN Creatinine POC Glucometer Random Glucose Calcium Hepatitis A Ab Total Negative Hep Bs Antigen Negative Hep Bs Antibody Non reactive Hep B Core Total Ab Negative Hepatitis C Antibody <0.1 04/21/17 04/21/17 04/22/17 16:16 21:26 00:45 WBC RBC Hgb Hct MCV MCH MCHC RDW Plt Count MPV Neutrophils % Lymphocytes % Monocytes % Eosinophils % Basophils % PTT (Actin FS) 44.2 H Sodium Potassium Chloride Carbon Dioxide Anion Gap BUN Creatinine POC Glucometer 194 155 Random Glucose Calcium Hepatitis A Ab Total Hep Bs Antigen Hep Bs Antibody Hep B Core Total Ab Hepatitis C Antibody 04/22/17 04/22/17 04/22/17 06:03 07:25 07:25 WBC 6.6 RBC 3.47 L Hgb 10.4 L Hct 31.8 L MCV 91.6 MCH 30.1 MCHC 32.9 RDW 16.4 H Plt Count 201 MPV 9.6 Neutrophils % 51.5 Lymphocytes % 23.9 D Monocytes % 10.2 Eosinophils % 11.7 H Basophils % 2.7 H PTT (Actin FS) 99.2 H D Sodium Potassium Chloride Carbon Dioxide Anion Gap BUN Creatinine POC Glucometer 99 Random Glucose Calcium Hepatitis A Ab Total Hep Bs Antigen Hep Bs Antibody Hep B Core Total Ab Hepatitis C Antibody 04/22/17 04/22/17 07:25 09:00 WBC RBC Hgb Hct MCV MCH MCHC RDW Plt Count MPV Neutrophils % Lymphocytes % Monocytes % Eosinophils % Basophils % PTT (Actin FS) 47.6 H D Sodium 137 Potassium 3.9 Chloride 100 Carbon Dioxide 27 Anion Gap 10 BUN 48 H D Creatinine 8.0 H* D POC Glucometer Random Glucose 155 H D Calcium 8.0 L Hepatitis A Ab Total Hep Bs Antigen Hep Bs Antibody Hep B Core Total Ab Hepatitis C Antibody Active Medications Generic Name Dose Route Start Last Admin Trade Name Freq PRN Reason Stop Dose Admin Atorvastatin Calcium 80 mg 04/20/17 22:00 04/21/17 21:56 Lipitor - PO 80 mg HS [facility] Administration Calcium Acetate 1,334 mg 04/21/17 17:30 04/22/17 07:57 Phoslo - PO 1,334 mg TIDCM [facility] Administration Carvedilol 12.5 mg 04/20/17 10:00 04/21/17 21:56 Coreg - PO 12.5 mg BID [facility] Administration Collagenase 1 applic 04/21/17 10:00 04/21/17 09:18 Santyl - TP 1 applic DAILY [facility] Administration Docusate Sodium 100 mg 04/22/17 14:00 Colace - PO TID [facility] Heparin Sodium (Porcine) 1,000 unit 04/19/17 11:46 04/22/17 03:25 Heparin - IVPUSH 1,000 unit PRN PRN Administration Heparin Heparin Sodium (Porcine) 5,000 unit 04/19/17 11:46 04/21/17 09:17 Heparin - IVPUSH 5,000 unit PRN PRN Administration Heparin Heparin Sodium/Dextrose 25,000 units in 500 mls @ 20 mls/hr 04/19/17 12:00 03:24 Heparin Infusion - IVPB 1,950 units/hr TITR [facility] 39 mls/hr Protocol Administration 1,000 UNITS/HR CEFTRIAXONE IN IS-OSM DEXTROSE 2 gm in 50 mls @ 100 mls/hr 04/21/17 16:15 16:31 Ceftriaxone 2 Gm-D5w Bag IVPB 100 mls/hr DAILY [facility] Administration Insulin Aspart 1 vial 04/19/17 07:00 04/22/17 06:21 Novolog Vial Sliding Scale - SQ Not Given ACHS [facility] Protocol Multi-Ingredient Lotion 1 applic 04/20/17 14:43 04/21/17 16:31 Eucerin (Large Jar) - TP 1 applic DAILY PRN Administration DRY SKIN Pantoprazole Sodium 20 mg 04/20/17 17:00 04/21/17 09:17 Protonix - PO 20 mg DAILY [facility] Administration Polyethylene Glycol 17 gm 04/22/17 10:00 Miralax (For Daily Use) - PO DAILY [facility] Pregabalin 75 mg 04/21/17 10:00 04/21/17 09:17 Lyrica - PO 75 mg DAILY [facility] Administration Torsemide 80 mg 04/21/17 10:00 04/21/17 09:19 Demadex - PO 80 mg DAILY [facility] Administration ASSESSMENT/PLAN: 56M with PMH of DM, ESRD (on HD TTS), PVD, OM, 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 # Left LE ischemia - Heparin drip, monitor PTT and adjust per protocol - Vascular Surgery (Dr. Sheets) recs appreciated: no vascular intervention at this time - f/u arterial dopplers - vascular checks q4hr # Left LE wound infection - Day 2 of IV Ceftriaxone (Day 4 of IV antibiotics) - blood culture (-) x 72 hrs - wound culture (+) for presumptive MSSA and Diphtheroid/Corynebacterium - wound care per Podiatry (Dr. Alcantara) - f/u bone scan # constipation - Colace and Miralax added - pt encouraged to move around as much as possible # ESRD on HD - Nephrology (Dr. Win) recs appreciated: continue epogen - 4kg planned to be removed today via HD # DM - BGMs - SSI # FEN - Fluids: po - Electrolytes: continue to monitor - Nutrition: renal, diabetic diet # Prophylaxis - DVT ppx with Heparin drip - deconditioning ppx with PT Visit type - Emergency Visit Emergency Visit: Yes ED Registration Date: 04/18/17 Care time: The patient presented to the Emergency Department on the above date and was hospitalized for further evaluation of their emergent condition. - New Patient This patient is new to me today: No - Critical Care Critical Care patient: No
[2017-04-22 09:42] LABS: ANION GAP 10 (8-16); BLOOD UREA NITROGEN 48 mg/dL (7-18); CHLORIDE 100 mmol/L (98-107); CO2 27 mmol/L (21-32); GLUCOSE,RANDOM 155 mg/dL (74-106); POTASSIUM 3.9 mmol/L (3.5-5.1); SODIUM 137 mmol/L (136-145)
[2017-04-22] MEDS: CEFTRIAXONE IN IS-OSM DEXTROSE 2 GM/50 ML BAG IVPB SCH ×2 (10:06→19:04)
[2017-04-22] MEDS: PREGABALIN 75 MG CAPSULE PO SCH ×2 (10:07→13:02)
[2017-04-22] MEDS: POLYETHYLENE GLYCOL 3350 119 GM BTL PO SCH ×2 (10:07→14:27)
[2017-04-22] MEDS: CARVEDILOL 12.5 MG TABLET (FP) PO SCH ×2 (10:07→21:31)
[2017-04-22] MEDS: TORSEMIDE 20 MG TABLET (FP) PO SCH (10:07)
[2017-04-22] MEDS: PANTOPRAZOLE 20 MG TABLET (FP) PO SCH ×2 (10:08→13:03)
--- NOTE | 2017-04-22 12:34 | PN ---
Teaching Attending Note Name of Resident: Pao Randall ATTENDING PHYSICIAN STATEMENT Time of evaluation: 8:50 AM I saw and evaluated the patient. I reviewed the resident's note and discussed the case with the resident. I agree with the resident's findings and plan as documented with exceptions mentioned below. SUBJECTIVE: Patient seen and examined. no new leg pain or fevers, overall unchanged. OBJECTIVE: Vital Signs Period Temp Pulse Resp BP Sys/Leon Pulse Ox Last 24 Hr 98.1 F-99.4 F 57-73 18-18 119-175/57-87 95 Intake & Output 04/19/17 04/20/17 04/21/17 04/22/17 23:59 23:59 23:59 23:59 Intake Total 560 1818 2658 788 Output Total 750 400 Balance 560 1068 2258 788 Weight 381 lb General: lying in bed getting HD abdomen: soft, obese, NT extremities: Left foot dressing just done by RN, exam deferred Chest: no rales or wheezing Home Medication List Medication Instructions Recorded Confirmed Type Omeprazole [Prilosec (RX)] 20 mg PO DAILY 08/13/14 04/19/17 History Atorvastatin Ca [Lipitor] 80 mg PO HS 05/24/16 04/19/17 History Calcium Acetate [Phoslo -] 667 mg PO TIDCM 05/24/16 04/19/17 History Carvedilol 12.5 mg PO BID 05/24/16 04/19/17 History Torsemide 80 mg PO DAILY 05/24/16 03/08/17 History Ferrous Sulfate [Feosol] 1 tab PO DAILY 08/02/16 03/08/17 History Albuterol Sulfate [Proair 90 mcg IH BID 11/13/16 03/08/17 History Respiclick] Cholecalciferol (Vitamin D3) 2,000 unit PO DAILY 11/13/16 03/08/17 History [Vitamin D3] Glipizide 5 mg PO BID 04/19/17 04/19/17 History Nifedipine ER [Procardia XL -] 90 mg PO DAILY 04/19/17 04/19/17 History Pregabalin [Lyrica -] 75 mg PO DAILY MDD 50 mg 04/19/17 04/19/17 History Active Medications Generic Name Dose Route Start Last Admin Trade Name Freq PRN Reason Stop Dose Admin Atorvastatin Calcium 80 mg 04/20/17 22:00 04/21/17 21:56 Lipitor - PO 80 mg HS [facility] Administration Calcium Acetate 1,334 mg 04/21/17 17:30 04/22/17 07:57 Phoslo - PO 1,334 mg TIDCM [facility] Administration Carvedilol 12.5 mg 04/20/17 10:00 04/22/17 10:07 Coreg - PO Not Given BID [facility] Collagenase 1 applic 04/21/17 10:00 04/21/17 09:18 Santyl - TP 1 applic DAILY [facility] Administration Docusate Sodium 100 mg 04/22/17 14:00 Colace - PO TID [facility] Heparin Sodium (Porcine) 1,000 unit 04/19/17 11:46 04/22/17 10:31 Heparin - IVPUSH 1,000 unit PRN PRN Administration Heparin Heparin Sodium (Porcine) 5,000 unit 04/19/17 11:46 04/21/17 09:17 Heparin - IVPUSH 5,000 unit PRN PRN Administration Heparin Heparin Sodium/Dextrose 25,000 units in 500 mls @ 20 mls/hr 04/19/17 12:00 10:35 Heparin Infusion - IVPB 2,050 units/hr TITR [facility] 41 mls/hr Protocol Titration 1,000 UNITS/HR CEFTRIAXONE IN IS-OSM DEXTROSE 2 gm in 50 mls @ 100 mls/hr 04/21/17 16:15 10:06 Ceftriaxone 2 Gm-D5w Bag IVPB Not Given DAILY [facility] Insulin Aspart 1 vial 04/19/17 07:00 04/22/17 06:21 Novolog Vial Sliding Scale - SQ Not Given ACHS [facility] Protocol Multi-Ingredient Lotion 1 applic 04/20/17 14:43 04/21/17 16:31 Eucerin (Large Jar) - TP 1 applic DAILY PRN Administration DRY SKIN Pantoprazole Sodium 20 mg 04/20/17 17:00 04/22/17 10:08 Protonix - PO Not Given DAILY [facility] Polyethylene Glycol 17 gm 04/22/17 10:00 04/22/17 10:07 Miralax (For Daily Use) - PO Not Given DAILY [facility] Pregabalin 75 mg 04/21/17 10:00 04/22/17 10:07 Lyrica - PO Not Given DAILY [facility] Torsemide 80 mg 04/21/17 10:00 04/22/17 10:07 Demadex - PO Not Given DAILY [facility] Laboratory Results - last 24 hr 04/20/17 04/20/17 04/21/17 13:20 13:20 12:20 WBC RBC Hgb Hct MCV MCH MCHC RDW Plt Count MPV Neutrophils % Lymphocytes % Monocytes % Eosinophils % Basophils % PTT (Actin FS) Sodium Potassium Chloride Carbon Dioxide Anion Gap BUN Creatinine POC Glucometer 159 Random Glucose Calcium Hepatitis A Ab Total Negative Hep Bs Antigen Negative Hep Bs Antibody Non reactive Hep B Core Total Ab Negative Hepatitis C Antibody <0.1 04/21/17 04/21/17 04/21/17 15:40 16:16 21:26 WBC RBC Hgb Hct MCV MCH MCHC RDW Plt Count MPV Neutrophils % Lymphocytes % Monocytes % Eosinophils % Basophils % PTT (Actin FS) 40.5 H Sodium Potassium Chloride Carbon Dioxide Anion Gap BUN Creatinine POC Glucometer 194 155 Random Glucose Calcium Hepatitis A Ab Total Hep Bs Antigen Hep Bs Antibody Hep B Core Total Ab Hepatitis C Antibody 04/22/17 04/22/17 04/22/17 00:45 06:03 07:25 WBC RBC Hgb Hct MCV MCH MCHC RDW Plt Count MPV Neutrophils % Lymphocytes % Monocytes % Eosinophils % Basophils % PTT (Actin FS) 44.2 H 99.2 H D Sodium Potassium Chloride Carbon Dioxide Anion Gap BUN Creatinine POC Glucometer 99 Random Glucose Calcium Hepatitis A Ab Total Hep Bs Antigen Hep Bs Antibody Hep B Core Total Ab Hepatitis C Antibody 04/22/17 04/22/17 04/22/17 07:25 07:25 09:00 WBC 6.6 RBC 3.47 L Hgb 10.4 L Hct 31.8 L MCV 91.6 MCH 30.1 MCHC 32.9 RDW 16.4 H Plt Count 201 MPV 9.6 Neutrophils % 51.5 Lymphocytes % 23.9 D Monocytes % 10.2 Eosinophils % 11.7 H Basophils % 2.7 H PTT (Actin FS) 47.6 H D Sodium 137 Potassium 3.9 Chloride 100 Carbon Dioxide 27 Anion Gap 10 BUN 48 H D Creatinine 8.0 H* D POC Glucometer Random Glucose 155 H D Calcium 8.0 L Hepatitis A Ab Total Hep Bs Antigen Hep Bs Antibody Hep B Core Total Ab Hepatitis C Antibody Microbiology 04/18/17 18:00 Blood - Peripheral Venous Blood Culture - Preliminary NO GROWTH OBTAINED AFTER 72 HOURS, INCUBATION TO CONTINUE FOR 2 DAYS. 04/18/17 18:00 Blood - Peripheral Venous Blood Culture - Preliminary NO GROWTH OBTAINED AFTER 72 HOURS, INCUBATION TO CONTINUE FOR 2 DAYS. 04/20/17 12:20 Foot - Left Gram Stain - Final 04/20/17 12:20 Foot - Left Wound Culture - Preliminary Presumptive Mssa (Pbp2a Neg) Diphtheroid/Corynebacterium Arterial dopplers and PVR results pending ASSESSMENT AND PLAN: 56 y/o M w/PMH of ESRD (on HD TTS), DM, PVD, OM, CVAx2 (w/LLE residual weakness ) admitted with LLE ischemia +/- Wound infection. -LLE ischemia -LLE wound infection -ESRD on HD -DM -PVD -OM -CVA x 2 Plan: Vascular surgery input appreciated. Follow up arterial dopplers and PVR. Heparin drip per vascular. ID input noted, changed to Ceftriaxone. Blood cultures neg so far. Wound cultures noted. Unable to get MRI given 380 lbs weight. Discuss[address] with Dr. Chirinos,plan for bone scan ISS, diabetic diet. HD per renal Dispo planning pending vascular surgery/ID/Podiatry input. Plan discussed with patient in detail, all questions answered.
--- NOTE | 2017-04-22 12:35 | PN ---
Progress Note, Physician History of Present Illness: Seen on dialysis Reports marked improvement in L foot pain No fever/ chills Wound c/s S. aureus - Current Medication List Current Medications: Active Medications Atorvastatin Calcium (Lipitor -) 80 mg PO HS [facility] Last Admin: 04/21/17 21:56 Dose: 80 mg Calcium Acetate (Phoslo -) 1,334 mg PO TIDCM [facility] Last Admin: 04/22/17 07:57 Dose: 1,334 mg Carvedilol (Coreg -) 12.5 mg PO BID [facility] Last Admin: 04/22/17 10:07 Dose: Not Given Collagenase (Santyl -) 1 applic TP DAILY [facility] Last Admin: 04/21/17 09:18 Dose: 1 applic Docusate Sodium (Colace -) 100 mg PO TID [facility] Heparin Sodium (Porcine) (Heparin -) 1,000 unit IVPUSH PRN PRN PRN Reason: Heparin Last Admin: 04/22/17 10:31 Dose: 1,000 unit Heparin Sodium (Porcine) (Heparin -) 5,000 unit IVPUSH PRN PRN PRN Reason: Heparin Last Admin: 04/21/17 09:17 Dose: 5,000 unit Heparin Sodium/Dextrose (Heparin Infusion -) 25,000 units in 500 mls @ 20 mls/ hr IVPB TITR [facility]; 1,000 UNITS/HR PRN Reason: Protocol Last Titration: 04/22/17 10:35 Dose: 2,050 units/hr, 41 mls/hr CEFTRIAXONE IN IS-OSM DEXTROSE (Ceftriaxone 2 Gm-D5w Bag) 2 gm in 50 mls @ 100 mls/hr IVPB DAILY [facility] Last Admin: 04/22/17 10:06 Dose: Not Given Insulin Aspart (Novolog Vial Sliding Scale -) 1 vial SQ ACHS [facility] PRN Reason: Protocol Last Admin: 04/22/17 06:21 Dose: Not Given Multi-Ingredient Lotion (Eucerin (Large Jar) -) 1 applic TP DAILY PRN PRN Reason: DRY SKIN Last Admin: 04/21/17 16:31 Dose: 1 applic Pantoprazole Sodium (Protonix -) 20 mg PO DAILY [facility] Last Admin: 04/22/17 10:08 Dose: Not Given Polyethylene Glycol (Miralax (For Daily Use) -) 17 gm PO DAILY [facility] Last Admin: 04/22/17 10:07 Dose: Not Given Pregabalin (Lyrica -) 75 mg PO DAILY [facility] Last Admin: 04/22/17 10:07 Dose: Not Given Torsemide (Demadex -) 80 mg PO DAILY [facility] Last Admin: 04/22/17 10:07 Dose: Not Given - Objective Vital Signs: Vital Signs Temperature 98.1 F 04/22/17 08:10 Pulse Rate 61 04/22/17 12:00 Respiratory Rate 18 04/22/17 12:00 Blood Pressure 133/75 04/22/17 12:00 O2 Sat by Pulse Oximetry (%) 95 04/21/17 21:00 Constitutional: Yes: No Distress Eyes: Yes: Conjunctiva Clear Cardiovascular: Yes: Regular Rate and Rhythm, S1, S2 Respiratory: Yes: CTA Bilaterally Gastrointestinal: Yes: Normal Bowel Sounds, Soft, Abdomen, Obese Extremities: Yes: Other (decreased swelling of toes L foot. Dry ulcers L great and second toes. 5th toe less dusky) Labs: CBC, BMP 04/22/17 07:25 04/22/17 07:25 INR, PTT INR 1.18 (0.82-1.09) H 04/19/17 07:35 Assessment/Plan Ischemic v. infected R great and 2nd toes ESRD Continue ceftriaxone daily Local wound care
[2017-04-22] MEDS ORDERED: INSULIN (NOVOLOG) ASPART 100 UNITS/ML 10ML VIAL ONE ×2 (13:19→17:37)
[2017-04-22] MEDS ORDERED: PT OWN MED DRAWER 7, Y5N ONE ×4 (14:05→18:25)
--- NOTE | 2017-04-22 14:11 | PN ---
Progress Note (short form) - Note Progress Note: Podiatry F/U: Seen/evaluated at bedside, NAD. Pain improved to L foot, denies F/V/N/C/SOB/ CP. Afebrile, VSS. KEEGAN: L foot: distal tuft hallux diabetic ulcer with mixed base, fibrogranular, small eschar superficially, mild purulent drainage, no deep pus, no probing to bone, no fluctuance, no ascending cellulitis, no signs of active infection. Mild tenderness to palpation. L 2nd digit dry eschar over PIPJ and DIPJ, no purulence, no fluctuance, no ascending cellulitis, no signs of infection. Pedal pulses non-palpable. WBC: 6.6 ESR: 69 Blood Cx: no growth Imp: 56 year old DM M with L hallux, 2nd digit ulcers, eval for osteomyelitis 1. C/w IV abx per ID 2. C/w santyl for local wound care Rx 3. Awaiting bone scan L foot 4. Will decide on plan depending on bone scan Amarilis Alcantara DPM
[2017-04-22] MEDS: COLLAGENASE CLOSTRIDIUM HIST. 30 GRAMS TUBE TP SCH (14:27)
[2017-04-22] MEDS: DOCUSATE SODIUM 100 MG CAPSULE (FP) PO SCH ×2 (14:27→21:31)
[2017-04-22] MEDS: MINERAL OIL/PETROLAT/WATER TOPICAL CREAM 454 GM JAR TP PRN (14:35)
--- NOTE | 2017-04-22 16:45 | PN ---
Progress Note, Physician History of Present Illness: Pt seen and examined at bedside. He is awake and alert. He tolerated HD today. - Current Medication List Current Medications: Active Medications Atorvastatin Calcium (Lipitor -) 80 mg PO HS [facility] Last Admin: 04/21/17 21:56 Dose: 80 mg Calcium Acetate (Phoslo -) 1,334 mg PO TIDCM [facility] Last Admin: 04/22/17 13:02 Dose: 1,334 mg Carvedilol (Coreg -) 12.5 mg PO BID [facility] Last Admin: 04/22/17 10:07 Dose: Not Given Collagenase (Santyl -) 1 applic TP DAILY [facility] Last Admin: 04/22/17 14:27 Dose: 1 applic Docusate Sodium (Colace -) 100 mg PO TID [facility] Last Admin: 04/22/17 14:27 Dose: 100 mg Heparin Sodium (Porcine) (Heparin -) 1,000 unit IVPUSH PRN PRN PRN Reason: Heparin Last Admin: 04/22/17 10:31 Dose: 1,000 unit Heparin Sodium (Porcine) (Heparin -) 5,000 unit IVPUSH PRN PRN PRN Reason: Heparin Last Admin: 04/21/17 09:17 Dose: 5,000 unit Heparin Sodium/Dextrose (Heparin Infusion -) 25,000 units in 500 mls @ 20 mls/ hr IVPB TITR [facility]; 1,000 UNITS/HR PRN Reason: Protocol Last Titration: 04/22/17 10:35 Dose: 2,050 units/hr, 41 mls/hr CEFTRIAXONE IN IS-OSM DEXTROSE (Ceftriaxone 2 Gm-D5w Bag) 2 gm in 50 mls @ 100 mls/hr IVPB DAILY [facility] Last Admin: 04/22/17 10:06 Dose: Not Given Insulin Aspart (Novolog Vial Sliding Scale -) 1 vial SQ ACHS [facility] PRN Reason: Protocol Last Admin: 04/22/17 13:00 Dose: Not Given Multi-Ingredient Lotion (Eucerin (Large Jar) -) 1 applic TP DAILY PRN PRN Reason: DRY SKIN Last Admin: 04/22/17 14:35 Dose: 1 applic Pantoprazole Sodium (Protonix -) 20 mg PO DAILY [facility] Last Admin: 04/22/17 13:03 Dose: 20 mg Polyethylene Glycol (Miralax (For Daily Use) -) 17 gm PO DAILY [facility] Last Admin: 04/22/17 14:27 Dose: 17 grams Pregabalin (Lyrica -) 75 mg PO DAILY [facility] Last Admin: 04/22/17 13:02 Dose: 75 mg Torsemide (Demadex -) 80 mg PO DAILY [facility] Last Admin: 04/22/17 10:07 Dose: Not Given - Objective Vital Signs: Vital Signs Temperature 98.1 F 04/22/17 12:25 Pulse Rate 68 04/22/17 12:25 Respiratory Rate 18 04/22/17 12:25 Blood Pressure 116/52 04/22/17 15:38 O2 Sat by Pulse Oximetry (%) 95 04/21/17 21:00 Constitutional: Yes: Calm Eyes: Yes: Conjunctiva Clear HENT: Yes: Atraumatic Neck: Yes: Supple Cardiovascular: Yes: S1, S2 Respiratory: Yes: CTA Bilaterally Gastrointestinal: Yes: Soft, Abdomen, Obese Genitourinary: Yes: WNL Musculoskeletal: Yes: WNL Edema: Yes Edema: LLE: 1+, RLE: 1+ Neurological: Yes: Oriented Psychiatric: Yes: Oriented Labs: CBC, BMP 04/22/17 07:25 04/22/17 07:25 INR, PTT INR 1.18 (0.82-1.09) H 04/19/17 07:35 Problem List - Problems (1) ESRD (end stage renal disease) Code(s): N18.6 - END STAGE RENAL DISEASE (2) PVD (peripheral vascular disease) Code(s): I73.9 - PERIPHERAL VASCULAR DISEASE, UNSPECIFIED (3) Anemia Code(s): D64.9 - ANEMIA, UNSPECIFIED Qualifiers: Anemia type: other cause Other causes of anemia: other cause, not classified Qualified Code(s): D64.89 - Other specified anemias (4) DM type 2, uncontrolled, with renal complications Code(s): E11.29 - TYPE 2 DIABETES MELLITUS W OTH DIABETIC KIDNEY COMPLICATION; E11.65 - TYPE 2 DIABETES MELLITUS WITH HYPERGLYCEMIA Assessment/Plan Current Medications Generic Name Dose Route Start Last Admin Trade Name Freq PRN Reason Stop Dose Admin Atorvastatin Calcium 80 mg 04/20/17 22:00 04/21/17 21:56 Lipitor - PO 80 mg HS [facility] Administration Calcium Acetate 1,334 mg 04/21/17 17:30 04/22/17 13:02 Phoslo - PO 1,334 mg TIDCM [facility] Administration Carvedilol 12.5 mg 04/20/17 10:00 04/22/17 10:07 Coreg - PO Not Given BID [facility] Collagenase 1 applic 04/21/17 10:00 04/22/17 14:27 Santyl - TP 1 applic DAILY [facility] Administration Docusate Sodium 100 mg 04/22/17 14:00 04/22/17 14:27 Colace - PO 100 mg TID [facility] Administration Heparin Sodium (Porcine) 1,000 unit 04/19/17 11:46 04/22/17 10:31 Heparin - IVPUSH 1,000 unit PRN PRN Administration Heparin Heparin Sodium (Porcine) 5,000 unit 04/19/17 11:46 04/21/17 09:17 Heparin - IVPUSH 5,000 unit PRN PRN Administration Heparin Heparin Sodium/Dextrose 25,000 units in 500 mls @ 20 mls/hr 04/19/17 12:00 10:35 Heparin Infusion - IVPB 2,050 units/hr TITR [facility] 41 mls/hr Protocol Titration 1,000 UNITS/HR CEFTRIAXONE IN IS-OSM DEXTROSE 2 gm in 50 mls @ 100 mls/hr 04/21/17 16:15 10:06 Ceftriaxone 2 Gm-D5w Bag IVPB Not Given DAILY [facility] Insulin Aspart 1 vial 04/19/17 07:00 04/22/17 13:00 Novolog Vial Sliding Scale - SQ Not Given ACHS [facility] Protocol Multi-Ingredient Lotion 1 applic 04/20/17 14:43 04/22/17 14:35 Eucerin (Large Jar) - TP 1 applic DAILY [facility] Administration DRY SKIN Pantoprazole Sodium 20 mg 04/20/17 17:00 04/22/17 13:03 Protonix - PO 20 mg DAILY [facility] Administration Polyethylene Glycol 17 gm 04/22/17 10:00 04/22/17 14:27 Miralax (For Daily Use) - PO 17 grams DAILY [facility] Administration Pregabalin 75 mg 04/21/17 10:00 04/22/17 13:02 Lyrica - PO 75 mg DAILY [facility] Administration Torsemide 80 mg 04/21/17 10:00 04/22/17 10:07 Demadex - PO Not Given DAILY [facility] Impression 1. ESRD 2. anemia 3. HTN 4. morbid obesity 5. CVA 6. hyperlipidemia 7. proteinuria - nephrotic 8. PVD Plan - pt tolerated HD today - cont epogen for anemia - podiatry input appreciated - pt does not want digit amputation - vascular follow up, pt remains on heparin drip - cont wound care Dr Win
[2017-04-22] MEDS: ATORVASTATIN CA 80 MG TABLET (FP) PO SCH (21:30)
[2017-04-23] MEDS: DOCUSATE SODIUM 100 MG CAPSULE (FP) PO SCH ×3 (06:44→22:42)
[2017-04-23] MEDS: INSULIN SLIDING SCALE (NOVOLOG) 1 VIAL SQ SCH ×4 (06:45→22:44)
[2017-04-23] MEDS: HEPARIN INFUSION - 25,000 UNITS/500 ML INFUS.BAG IVPB SCH ×3 (06:45→22:41)
[2017-04-23] MEDS: CALCIUM ACETATE 667 MG CAPSULE (FP) PO SCH ×3 (08:53→17:54)
[2017-04-23 09:07] LABS: EOS % 10.4 % (0-4.5); HEMATOCRIT 34.1 % (35.4-49); HEMOGLOBIN 11.1 GM/dL (11.7-16.9); MCH 29.9 pg (25.7-33.7); MCHC 32.6 g/dl (32.0-35.9); MEAN CELL VOLUME 91.7 fl (80-96); MEAN PLT VOLUME 9.1 fl (7.5-11.1); MONO % 8.8 % (3.8-10.2); NEUT % 54.8 % (42.8-82.8); PLATELET COUNT 227 K/MM3 (134-434); RBC 3.72 M/mm3 (4.00-5.60); RDW 16.5 % (11.9-15.9); WHITE BLOOD COUNT 6.9 K/mm3 (4.0-10.0)
[2017-04-23 09:31] LABS: ANION GAP 11 (8-16); BLOOD UREA NITROGEN 32 mg/dL (7-18); CALCIUM 8.9 mg/dL (8.5-10.1); CHLORIDE 97 mmol/L (98-107); CO2 30 mmol/L (21-32); CREATININE 6.3 mg/dL (0.7-1.3); GLUCOSE,RANDOM 98 mg/dL (74-106); MAGNESIUM 2.2 mg/dL (1.8-2.4); PHOSPHOROUS 5.9 mg/dL (2.5-4.9); POTASSIUM 3.9 mmol/L (3.5-5.1); SODIUM 138 mmol/L (136-145)
[2017-04-23] MEDS ORDERED: PT OWN MED DRAWER 7, Y5N ONE ×4 (11:37→16:34)
[2017-04-23] MEDS: PANTOPRAZOLE 20 MG TABLET (FP) PO SCH (11:52)
[2017-04-23] MEDS: PREGABALIN 75 MG CAPSULE PO SCH (11:52)
[2017-04-23] MEDS: CARVEDILOL 12.5 MG TABLET (FP) PO SCH ×2 (11:52→22:42)
[2017-04-23] MEDS: TORSEMIDE 20 MG TABLET (FP) PO SCH (11:53)
[2017-04-23] MEDS: POLYETHYLENE GLYCOL 3350 119 GM BTL PO SCH (14:44)
[2017-04-23] MEDS: CEFTRIAXONE IN IS-OSM DEXTROSE 2 GM/50 ML BAG IVPB SCH (14:45)
--- NOTE | 2017-04-23 14:45 | PN ---
Teaching Attending Note Name of Resident: Simon Tabares SUBJECTIVE: Patient seen and examined. Leg redness improved, no new pain or fevers. Reports constipation. OBJECTIVE: Vital Signs Period Temp Pulse Resp BP Sys/Leon Pulse Ox Last 24 Hr 98.2 F-98.2 F 62-69 18-20 107-148/52-90 95 Intake & Output 04/20/17 04/21/17 04/22/17 04/23/17 23:59 23:59 23:59 23:59 Intake Total 1818 2658 1304 836 Output Total 750 400 Balance 1068 2258 1304 836 General:sitting in bed in no acute distress Extremities: LLE wound with improved erythema over great and 2nd toe, unchanged ulcer with eschar, dried yellow based on ulcer on great toe, otherwise unchanged exam Abdomen:soft, NT, ND Chest: CTAB, no rales or wheezing Home Medication List Medication Instructions Recorded Confirmed Type Omeprazole [Prilosec (RX)] 20 mg PO DAILY 08/13/14 04/19/17 History Atorvastatin Ca [Lipitor] 80 mg PO HS 05/24/16 04/19/17 History Calcium Acetate [Phoslo -] 667 mg PO TIDCM 05/24/16 04/19/17 History Carvedilol 12.5 mg PO BID 05/24/16 04/19/17 History Torsemide 80 mg PO DAILY 05/24/16 03/08/17 History Ferrous Sulfate [Feosol] 1 tab PO DAILY 08/02/16 03/08/17 History Albuterol Sulfate [Proair 90 mcg IH BID 11/13/16 03/08/17 History Respiclick] Cholecalciferol (Vitamin D3) 2,000 unit PO DAILY 11/13/16 03/08/17 History [Vitamin D3] Glipizide 5 mg PO BID 04/19/17 04/19/17 History Nifedipine ER [Procardia XL -] 90 mg PO DAILY 04/19/17 04/19/17 History Pregabalin [Lyrica -] 75 mg PO DAILY [facility] 50 mg 04/19/17 04/19/17 History Active Medications Generic Name Dose Route Start Last Admin Trade Name Freq PRN Reason Stop Dose Admin Atorvastatin Calcium 80 mg 04/20/17 22:00 04/22/17 21:30 Lipitor - PO 80 mg HS [facility] Administration Calcium Acetate 1,334 mg 04/21/17 17:30 04/23/17 12:16 Phoslo - PO 1,334 mg TIDCM [facility] Administration Carvedilol 12.5 mg 04/20/17 10:00 04/23/17 11:52 Coreg - PO 12.5 mg BID [facility] Administration Collagenase 1 applic 04/21/17 10:00 04/22/17 14:27 Santyl - TP 1 applic DAILY [facility] Administration Docusate Sodium 100 mg 04/22/17 14:00 04/23/17 06:44 Colace - PO 100 mg TID [facility] Administration Heparin Sodium (Porcine) 1,000 unit 04/19/17 11:46 04/22/17 10:31 Heparin - IVPUSH 1,000 unit PRN PRN Administration Heparin Heparin Sodium (Porcine) 5,000 unit 04/19/17 11:46 04/21/17 09:17 Heparin - IVPUSH 5,000 unit PRN PRN Administration Heparin Heparin Sodium/Dextrose 25,000 units in 500 mls @ 20 mls/hr 04/19/17 12:00 06:45 Heparin Infusion - IVPB 2,050 units/hr TITR [facility] 41 mls/hr Protocol Administration 1,000 UNITS/HR CEFTRIAXONE IN IS-OSM DEXTROSE 2 gm in 50 mls @ 100 mls/hr 04/21/17 16:15 19:04 Ceftriaxone 2 Gm-D5w Bag IVPB 100 mls/hr DAILY [facility] Administration Insulin Aspart 1 vial 04/19/17 07:00 04/23/17 12:16 Novolog Vial Sliding Scale - SQ 2 units ACHS [facility] Administration Protocol Multi-Ingredient Lotion 1 applic 04/20/17 14:43 04/22/17 14:35 Eucerin (Large Jar) - TP 1 applic DAILY [facility]N Administration DRY SKIN Pantoprazole Sodium 20 mg 04/20/17 17:00 04/23/17 11:52 Protonix - PO 20 mg DAILY [facility] Administration Polyethylene Glycol 17 gm 04/22/17 10:00 04/22/17 14:27 Miralax (For Daily Use) - PO 17 grams DAILY [facility] Administration Pregabalin 75 mg 04/21/17 10:00 04/23/17 11:52 Lyrica - PO 75 mg DAILY [facility] Administration Torsemide 80 mg 04/21/17 10:00 04/23/17 11:53 Demadex - PO 80 mg DAILY [facility] Administration Laboratory Results - last 24 hr 04/22/17 04/22/17 04/22/17 17:34 18:50 21:32 WBC RBC Hgb Hct MCV MCH MCHC RDW Plt Count MPV Neutrophils % Lymphocytes % Monocytes % Eosinophils % Basophils % PTT (Actin FS) 49.4 H Sodium Potassium Chloride Carbon Dioxide Anion Gap BUN Creatinine POC Glucometer 222 168 Random Glucose Calcium Phosphorus Magnesium 04/23/17 04/23/17 04/23/17 05:40 08:06 08:06 WBC 6.9 RBC 3.72 L Hgb 11.1 L Hct 34.1 L MCV 91.7 MCH 29.9 MCHC 32.6 RDW 16.5 H Plt Count 227 MPV 9.1 Neutrophils % 54.8 Lymphocytes % 23.0 Monocytes % 8.8 Eosinophils % 10.4 H Basophils % 3.0 H PTT (Actin FS) 51.4 H Sodium Potassium Chloride Carbon Dioxide Anion Gap BUN Creatinine POC Glucometer 127 Random Glucose Calcium Phosphorus Magnesium 04/23/17 04/23/17 04/23/17 08:06 09:31 12:15 WBC RBC Hgb Hct MCV MCH MCHC RDW Plt Count MPV Neutrophils % Lymphocytes % Monocytes % Eosinophils % Basophils % PTT (Actin FS) 129.3 H D Sodium 138 Potassium 3.9 Chloride 97 L Carbon Dioxide 30 Anion Gap 11 BUN 32 H D Creatinine 6.3 H D POC Glucometer 167 Random Glucose 98 D Calcium 8.9 Phosphorus 5.9 H Magnesium 2.2 Microbiology 04/18/17 18:00 Blood - Peripheral Venous Blood Culture - Preliminary NO GROWTH OBTAINED AFTER 96 HOURS, INCUBATION TO CONTINUE FOR 1 DAYS. 04/18/17 18:00 Blood - Peripheral Venous Blood Culture - Preliminary NO GROWTH OBTAINED AFTER 96 HOURS, INCUBATION TO CONTINUE FOR 1 DAYS. 04/20/17 12:20 Foot - Left Gram Stain - Final 04/20/17 12:20 Foot - Left Wound Culture - Final Staphylococcus Aureus Diphtheroid/Corynebacterium ASSESSMENT AND PLAN: 56 y/o M w/PMH of ESRD (on HD TTS), DM, PVD, OM, CVAx2 (w/LLE residual weakness ) admitted with LLE ischemia +/- Wound infection. -LLE ischemia -LLE wound infection -ESRD on HD -DM -PVD -OM -CVA x 2 Plan: Vascular surgery input appreciated. Follow up arterial dopplers and PVR. Heparin drip per vascular. ID input noted, changed to Ceftriaxone. Blood cultures neg so far. Wound cultures noted. Unable to get MRI given 380 lbs weight. Discuss[address] with Dr. Chirinos,plan for bone scan ISS, diabetic diet. HD per renal Add bowel regimen Dispo planning pending vascular surgery/ID/Podiatry input. Plan discussed with patient in detail, all questions answered.
[2017-04-23] MEDS ORDERED: BISACODYL 10 MG SUPP.RECT PR ONE (14:47)
[2017-04-23] MEDS: COLLAGENASE CLOSTRIDIUM HIST. 30 GRAMS TUBE TP SCH (16:30)
[2017-04-23] MEDS: MINERAL OIL/PETROLAT/WATER TOPICAL CREAM 454 GM JAR TP PRN (16:48)
[2017-04-23] MEDS ORDERED: INSULIN (NOVOLOG) ASPART 100 UNITS/ML 10ML VIAL ONE ×3 (17:52→22:10)
[2017-04-23] MEDS ORDERED: INSULIN (NOVOLOG MIX 70/30) 100 UNITS/ML MDV SQ ONE (17:59)
[2017-04-23] MEDS: HEPARIN NA (PORCINE) 5,000 UNITS/ML 1ML VIAL IVPUSH PRN (18:04)
--- NOTE | 2017-04-23 19:31 | PN ---
Progress Note, Physician History of Present Illness: Pt seen and examined at bedside. He is awake and alert. He denies shortness of breath. - Current Medication List Current Medications: Active Medications Atorvastatin Calcium (Lipitor -) 80 mg PO HS [facility] Last Admin: 04/22/17 21:30 Dose: 80 mg Calcium Acetate (Phoslo -) 1,334 mg PO TIDCM [facility] Last Admin: 04/23/17 17:54 Dose: 1,334 mg Carvedilol (Coreg -) 12.5 mg PO BID [facility] Last Admin: 04/23/17 11:52 Dose: 12.5 mg Collagenase (Santyl -) 1 applic TP DAILY [facility] Last Admin: 04/23/17 16:30 Dose: 1 applic Docusate Sodium (Colace -) 100 mg PO TID [facility] Last Admin: 04/23/17 14:44 Dose: 100 mg Heparin Sodium (Porcine) (Heparin -) 1,000 unit IVPUSH PRN PRN PRN Reason: Heparin Last Admin: 04/23/17 18:04 Dose: 1,000 unit Heparin Sodium (Porcine) (Heparin -) 5,000 unit IVPUSH PRN PRN PRN Reason: Heparin Last Admin: 04/21/17 09:17 Dose: 5,000 unit Heparin Sodium/Dextrose (Heparin Infusion -) 25,000 units in 500 mls @ 20 mls/ hr IVPB TITR [facility]; 1,000 UNITS/HR PRN Reason: Protocol Last Titration: 04/23/17 18:10 Dose: 2,000 units/hr, 40 mls/hr CEFTRIAXONE IN IS-OSM DEXTROSE (Ceftriaxone 2 Gm-D5w Bag) 2 gm in 50 mls @ 100 mls/hr IVPB DAILY [facility] Last Admin: 04/23/17 14:45 Dose: 100 mls/hr Insulin Aspart (Novolog Vial Sliding Scale -) 1 vial SQ ACHS [facility] PRN Reason: Protocol Last Admin: 04/23/17 17:54 Dose: 2 units Multi-Ingredient Lotion (Eucerin (Large Jar) -) 1 applic TP DAILY PRN PRN Reason: DRY SKIN Last Admin: 04/23/17 16:48 Dose: 1 applic Pantoprazole Sodium (Protonix -) 20 mg PO DAILY [facility] Last Admin: 04/23/17 11:52 Dose: 20 mg Polyethylene Glycol (Miralax (For Daily Use) -) 17 gm PO DAILY [facility] Last Admin: 04/23/17 14:44 Dose: 17 grams Pregabalin (Lyrica -) 75 mg PO DAILY [facility] Last Admin: 04/23/17 11:52 Dose: 75 mg Torsemide (Demadex -) 80 mg PO DAILY [facility] Last Admin: 04/23/17 11:53 Dose: 80 mg - Objective Vital Signs: Vital Signs Temperature 98.3 F 04/23/17 17:09 Pulse Rate 63 04/23/17 17:09 Respiratory Rate 18 04/23/17 17:09 Blood Pressure 118/70 04/23/17 17:09 O2 Sat by Pulse Oximetry (%) 95 04/22/17 21:00 Constitutional: Yes: Calm Eyes: Yes: Conjunctiva Clear HENT: Yes: Atraumatic Neck: Yes: Supple Cardiovascular: Yes: S1, S2 Gastrointestinal: Yes: Soft, Abdomen, Obese Genitourinary: Yes: WNL Edema: Yes Integumentary: Yes: Erythema Wound/Incision: Yes: Open to air Neurological: Yes: Oriented Psychiatric: Yes: Oriented Labs: CBC, BMP 04/23/17 08:06 04/23/17 08:06 INR, PTT INR 1.18 (0.82-1.09) H 04/19/17 07:35 Problem List - Problems (1) ESRD (end stage renal disease) Code(s): N18.6 - END STAGE RENAL DISEASE (2) PVD (peripheral vascular disease) Code(s): I73.9 - PERIPHERAL VASCULAR DISEASE, UNSPECIFIED (3) Anemia Code(s): D64.9 - ANEMIA, UNSPECIFIED Qualifiers: Anemia type: other cause Other causes of anemia: other cause, not classified Qualified Code(s): D64.89 - Other specified anemias (4) DM type 2, uncontrolled, with renal complications Code(s): E11.29 - TYPE 2 DIABETES MELLITUS W OTH DIABETIC KIDNEY COMPLICATION; E11.65 - TYPE 2 DIABETES MELLITUS WITH HYPERGLYCEMIA Assessment/Plan Current Medications Generic Name Dose Route Start Last Admin Trade Name Freq PRN Reason Stop Dose Admin Atorvastatin Calcium 80 mg 04/20/17 22:00 04/22/17 21:30 Lipitor - PO 80 mg HS [facility] Administration Calcium Acetate 1,334 mg 04/21/17 17:30 04/23/17 17:54 Phoslo - PO 1,334 mg TIDCM [facility] Administration Carvedilol 12.5 mg 04/20/17 10:00 04/23/17 11:52 Coreg - PO 12.5 mg BID [facility] Administration Collagenase 1 applic 04/21/17 10:00 04/23/17 16:30 Santyl - TP 1 applic DAILY [facility] Administration Docusate Sodium 100 mg 04/22/17 14:00 04/23/17 14:44 Colace - PO 100 mg TID [facility] Administration Heparin Sodium (Porcine) 1,000 unit 04/19/17 11:46 04/23/17 18:04 Heparin - IVPUSH 1,000 unit PRN PRN Administration Heparin Heparin Sodium (Porcine) 5,000 unit 04/19/17 11:46 04/21/17 09:17 Heparin - IVPUSH 5,000 unit PRN PRN Administration Heparin Heparin Sodium/Dextrose 25,000 units in 500 mls @ 20 mls/hr 04/19/17 12:00 18:10 Heparin Infusion - IVPB 2,000 units/hr TITR [facility] 40 mls/hr Protocol Titration 1,000 UNITS/HR CEFTRIAXONE IN IS-OSM DEXTROSE 2 gm in 50 mls @ 100 mls/hr 04/21/17 16:15 14:45 Ceftriaxone 2 Gm-D5w Bag IVPB 100 mls/hr DAILY [facility] Administration Insulin Aspart 1 vial 04/19/17 07:00 04/23/17 17:54 Novolog Vial Sliding Scale - SQ 2 units ACHS [facility] Administration Protocol Multi-Ingredient Lotion 1 applic 04/20/17 14:43 04/23/17 16:48 Eucerin (Large Jar) - TP 1 applic DAILY PRN Administration DRY SKIN Pantoprazole Sodium 20 mg 04/20/17 17:00 04/23/17 11:52 Protonix - PO 20 mg DAILY [facility] Administration Polyethylene Glycol 17 gm 04/22/17 10:00 04/23/17 14:44 Miralax (For Daily Use) - PO 17 grams DAILY [facility] Administration Pregabalin 75 mg 04/21/17 10:00 04/23/17 11:52 Lyrica - PO 75 mg DAILY [facility] Administration Torsemide 80 mg 04/21/17 10:00 04/23/17 11:53 Demadex - PO 80 mg DAILY [facility] Administration Impression 1. ESRD 2. anemia 3. HTN 4. morbid obesity 5. CVA 6. hyperlipidemia 7. proteinuria - nephrotic 8. PVD Plan - next HD scheduled for Monday - will evaluate tomorrow for extra HD session if needed - vascular follow up - podiatry follow up - monitor coags - cont wound care Dr Win
[2017-04-23] MEDS: ATORVASTATIN CA 80 MG TABLET (FP) PO SCH (22:42)
[2017-04-24] MEDS: HEPARIN NA (PORCINE) 5,000 UNITS/ML 1ML VIAL IVPUSH PRN ×2 (03:40→11:45)
[2017-04-24] MEDS: HEPARIN INFUSION - 25,000 UNITS/500 ML INFUS.BAG IVPB SCH ×3 (03:40→12:44)
[2017-04-24] MEDS: DOCUSATE SODIUM 100 MG CAPSULE (FP) PO SCH ×3 (06:32→21:43)
[2017-04-24] MEDS: INSULIN SLIDING SCALE (NOVOLOG) 1 VIAL SQ SCH ×4 (06:35→21:47)
[2017-04-24 08:13] LABS: HEMATOCRIT 34.2 % (35.4-49); MCH 30.1 pg (25.7-33.7); MCHC 32.2 g/dl (32.0-35.9); MEAN CELL VOLUME 93.2 fl (80-96); MEAN PLT VOLUME 9.4 fl (7.5-11.1); PLATELET COUNT 223 K/MM3 (134-434); RBC 3.67 M/mm3 (4.00-5.60); RDW 16.5 % (11.9-15.9); WHITE BLOOD COUNT 6.5 K/mm3 (4.0-10.0)
[2017-04-24 08:34] LABS: ANION GAP 10 (8-16); BLOOD UREA NITROGEN 45 mg/dL (7-18); CALCIUM 8.3 mg/dL (8.5-10.1); CHLORIDE 97 mmol/L (98-107); CO2 30 mmol/L (21-32); GLUCOSE,RANDOM 111 mg/dL (74-106); POTASSIUM 3.7 mmol/L (3.5-5.1); SODIUM 137 mmol/L (136-145)
[2017-04-24 09:14] LABS: CREATININE 8.2 mg/dL (0.7-1.3)
[2017-04-24] MEDS ORDERED: PT OWN MED DRAWER 7, Y5N ONE (10:18)
[2017-04-24] MEDS: CALCIUM ACETATE 667 MG CAPSULE (FP) PO SCH ×3 (10:22→16:36)
[2017-04-24] MEDS: CEFTRIAXONE IN IS-OSM DEXTROSE 2 GM/50 ML BAG IVPB SCH (10:24)
[2017-04-24] MEDS: CARVEDILOL 12.5 MG TABLET (FP) PO SCH ×2 (10:24→21:43)
[2017-04-24] MEDS: TORSEMIDE 20 MG TABLET (FP) PO SCH (10:25)
[2017-04-24] MEDS: PANTOPRAZOLE 20 MG TABLET (FP) PO SCH (10:26)
[2017-04-24] MEDS: PREGABALIN 75 MG CAPSULE PO SCH (10:26)
[2017-04-24] MEDS: COLLAGENASE CLOSTRIDIUM HIST. 30 GRAMS TUBE TP SCH (10:27)
[2017-04-24] MEDS: POLYETHYLENE GLYCOL 3350 119 GM BTL PO SCH (11:45)
--- NOTE | 2017-04-24 13:07 | PN ---
Teaching Attending Note Name of Resident: Mayank Barrow ATTENDING PHYSICIAN STATEMENT Time of evaluation: 8:20 AM I saw and evaluated the patient. I reviewed the resident's note and discussed the case with the resident. I agree with the resident's findings and plan as documented. SUBJECTIVE: Patient seen and examined. no complaints. had BM yesterday. OBJECTIVE: Vital Signs Period Temp Pulse Resp BP Sys/Leon Pulse Ox Last 24 Hr 98.0 F-98.6 F 60-73 18-22 94-119/52-70 95-95 Intake & Output 04/21/17 04/22/17 04/23/17 04/24/17 23:59 23:59 23:59 23:59 Intake Total 2658 1304 1142 1266 Output Total 400 850 900 Balance 2258 1304 292 366 General: lying in bed in no acute distress CVS:S1S2 regular Chest: No rales or wheezing abdomen: soft, NT extremities: LLE with dressing, exam unchanged, no new erythema or discharge noted Home Medication List Medication Instructions Recorded Confirmed Type Omeprazole [Prilosec (RX)] 20 mg PO DAILY 08/13/14 04/19/17 History Atorvastatin Ca [Lipitor] 80 mg PO HS 05/24/16 04/19/17 History Calcium Acetate [Phoslo -] 667 mg PO TIDCM 05/24/16 04/19/17 History Carvedilol 12.5 mg PO BID 05/24/16 04/19/17 History Torsemide 80 mg PO DAILY 05/24/16 03/08/17 History Ferrous Sulfate [Feosol] 1 tab PO DAILY 08/02/16 03/08/17 History Albuterol Sulfate [Proair 90 mcg IH BID 11/13/16 03/08/17 History Respiclick] Cholecalciferol (Vitamin D3) 2,000 unit PO DAILY 11/13/16 03/08/17 History [Vitamin D3] Glipizide 5 mg PO BID 04/19/17 04/19/17 History Nifedipine ER [Procardia XL -] 90 mg PO DAILY 04/19/17 04/19/17 History Pregabalin [Lyrica -] 75 mg PO DAILY MDD 50 mg 04/19/17 04/19/17 History Active Medications Generic Name Dose Route Start Last Admin Trade Name Freq PRN Reason Stop Dose Admin Atorvastatin Calcium 80 mg 04/20/17 22:00 04/23/17 22:42 Lipitor - PO 80 mg HS [facility] Administration Calcium Acetate 1,334 mg 04/21/17 17:30 04/24/17 10:22 Phoslo - PO 1,334 mg TIDCM [facility] Administration Carvedilol 12.5 mg 04/20/17 10:00 04/24/17 10:24 Coreg - PO 12.5 mg BID [facility] Administration Collagenase 1 applic 04/21/17 10:00 04/24/17 10:27 Santyl - TP 1 applic DAILY [facility] Administration Docusate Sodium 100 mg 04/22/17 14:00 04/24/17 06:32 Colace - PO 100 mg TID [facility] Administration Heparin Sodium (Porcine) 1,000 unit 04/19/17 11:46 04/24/17 11:45 Heparin - IVPUSH 1,000 unit PRN PRN Administration Heparin Heparin Sodium (Porcine) 5,000 unit 04/19/17 11:46 04/21/17 09:17 Heparin - IVPUSH 5,000 unit PRN PRN Administration Heparin Heparin Sodium/Dextrose 25,000 units in 500 mls @ 20 mls/hr 04/19/17 12:00 12:44 Heparin Infusion - IVPB 2,200 units/hr TITR [facility] 44 mls/hr Protocol Administration 1,000 UNITS/HR CEFTRIAXONE IN IS-OSM DEXTROSE 2 gm in 50 mls @ 100 mls/hr 04/21/17 16:15 10:24 Ceftriaxone 2 Gm-D5w Bag IVPB 100 mls/hr DAILY [facility] Administration Insulin Aspart 1 vial 04/19/17 07:00 04/24/17 12:42 Novolog Vial Sliding Scale - SQ 2 units ACHS [facility] Administration Protocol Multi-Ingredient Lotion 1 applic 04/20/17 14:43 04/23/17 16:48 Eucerin (Large Jar) - TP 1 applic DAILY PRN Administration DRY SKIN Pantoprazole Sodium 20 mg 04/20/17 17:00 04/24/17 10:26 Protonix - PO 20 mg DAILY [facility] Administration Polyethylene Glycol 17 gm 04/22/17 10:00 04/24/17 11:45 Miralax (For Daily Use) - PO 17 grams DAILY [facility] Administration Pregabalin 75 mg 04/21/17 10:00 04/24/17 10:26 Lyrica - PO 75 mg DAILY [facility] Administration Torsemide 80 mg 04/21/17 10:00 04/24/17 10:25 Demadex - PO 80 mg DAILY [facility] Administration Laboratory Results - last 24 hr 04/23/17 04/23/17 04/24/17 16:40 22:44 00:30 WBC RBC Hgb Hct MCV MCH MCHC RDW Plt Count MPV PTT (Actin FS) 48.5 H D Cancelled Sodium Potassium Chloride Carbon Dioxide Anion Gap BUN Creatinine POC Glucometer 148 Random Glucose Calcium 04/24/17 04/24/17 04/24/17 02:26 06:34 07:00 WBC 6.5 RBC 3.67 L Hgb 11.0 L Hct 34.2 L MCV 93.2 MCH 30.1 MCHC 32.2 RDW 16.5 H Plt Count 223 MPV 9.4 PTT (Actin FS) 42.8 H Sodium Potassium Chloride Carbon Dioxide Anion Gap BUN Creatinine POC Glucometer 129 Random Glucose Calcium 04/24/17 04/24/17 04/24/17 07:00 07:00 09:55 WBC RBC Hgb Hct MCV MCH MCHC RDW Plt Count MPV PTT (Actin FS) 53.2 H 48.6 H Sodium 137 Potassium 3.7 Chloride 97 L Carbon Dioxide 30 Anion Gap 10 BUN 45 H D Creatinine 8.2 H* D POC Glucometer Random Glucose 111 H Calcium 8.3 L 04/24/17 12:23 WBC RBC Hgb Hct MCV MCH MCHC RDW Plt Count MPV PTT (Actin FS) Sodium Potassium Chloride Carbon Dioxide Anion Gap BUN Creatinine POC Glucometer 192 Random Glucose Calcium Microbiology 04/18/17 18:00 Blood - Peripheral Venous Blood Culture - Final NO GROWTH AFTER 5 DAYS INCUBATION 04/18/17 18:00 Blood - Peripheral Venous Blood Culture - Final NO GROWTH AFTER 5 DAYS INCUBATION 04/20/17 12:20 Foot - Left Gram Stain - Final 04/20/17 12:20 Foot - Left Wound Culture - Final Staphylococcus Aureus Diphtheroid/Corynebacterium ASSESSMENT AND PLAN: 56 y/o M w/PMH of ESRD (on HD TTS), DM, PVD, OM, CVAx2 (w/LLE residual weakness ) admitted with LLE ischemia +/- Wound infection. -LLE ischemia -LLE wound infection -ESRD on HD -DM -PVD -OM -CVA x 2 Plan: Vascular surgery input appreciated. Aorta CTA noted. Follow up arterial dopplers and PVR. Heparin drip per vascular. ID input noted, changed to Ceftriaxone. Blood cultures neg so far. Wound cultures noted. Unable to get MRI given 380 lbs weight. Discuss[address] with Dr. Chirinos,plan for bone scan ISS, diabetic diet. HD per renal Add bowel regimen Dispo planning pending vascular surgery/ID/Podiatry input. Plan discussed with patient in detail, all questions answered.
--- NOTE | 2017-04-24 13:46 | PN ---
Progress Note (short form) - Note Progress Note: Awaiting official results of repeat PVR study. Per Dr. Sheets, if flow to transmet level is adequate there is no need for vascular intervention.
--- NOTE | 2017-04-24 15:47 | PN ---
Physical Exam: SUBJECTIVE: Patient seen and examined at bedside. No overnight events. No new complaints. Leg pain is minimal. Feels much better. Denies CP,SANON, SOB, palpitations, N/V. OBJECTIVE: Vital Signs Period Temp Pulse Resp BP Sys/Leon Pulse Ox Last 24 Hr 97.7 F-98.6 F 60-63 18-22 94-121/52-70 95-95 GENERAL: AAOx3, NAD ENT: moist mucous membranes. LUNGS: CTAB, No whhezing or rales. . HEART: RRR, NL S1S2, No M/G/R ABDOMEN: Obese ,soft, NT/ND, no masses EXTREMITIES:Bilateral lower ext. edema with chronic venous skin changes, erythema improved. palpable 1+ pulses bilateral DP. Laboratory Results - last 24 hr 04/23/17 04/23/17 04/24/17 16:40 22:44 00:30 WBC RBC Hgb Hct MCV MCH MCHC RDW Plt Count MPV PTT (Actin FS) 48.5 H D Cancelled Sodium Potassium Chloride Carbon Dioxide Anion Gap BUN Creatinine POC Glucometer 148 Random Glucose Calcium 04/24/17 04/24/17 04/24/17 02:26 06:34 07:00 WBC 6.5 RBC 3.67 L Hgb 11.0 L Hct 34.2 L MCV 93.2 MCH 30.1 MCHC 32.2 RDW 16.5 H Plt Count 223 MPV 9.4 PTT (Actin FS) 42.8 H Sodium Potassium Chloride Carbon Dioxide Anion Gap BUN Creatinine POC Glucometer 129 Random Glucose Calcium 04/24/17 04/24/17 04/24/17 07:00 07:00 09:55 WBC RBC Hgb Hct MCV MCH MCHC RDW Plt Count MPV PTT (Actin FS) 53.2 H 48.6 H Sodium 137 Potassium 3.7 Chloride 97 L Carbon Dioxide 30 Anion Gap 10 BUN 45 H D Creatinine 8.2 H* D POC Glucometer Random Glucose 111 H Calcium 8.3 L 04/24/17 12:23 WBC RBC Hgb Hct MCV MCH MCHC RDW Plt Count MPV PTT (Actin FS) Sodium Potassium Chloride Carbon Dioxide Anion Gap BUN Creatinine POC Glucometer 192 Random Glucose Calcium Active Medications Generic Name Dose Route Start Last Admin Trade Name Freq PRN Reason Stop Dose Admin Atorvastatin Calcium 80 mg 04/20/17 22:00 04/23/17 22:42 Lipitor - PO 80 mg HS [facility] Administration Calcium Acetate 1,334 mg 04/21/17 17:30 04/24/17 10:22 Phoslo - PO 1,334 mg TIDCM [facility] Administration Carvedilol 12.5 mg 04/20/17 10:00 04/24/17 10:24 Coreg - PO 12.5 mg BID [facility] Administration Collagenase 1 applic 04/21/17 10:00 04/24/17 10:27 Santyl - TP 1 applic DAILY [facility] Administration Docusate Sodium 100 mg 04/22/17 14:00 04/24/17 06:32 Colace - PO 100 mg TID [facility] Administration Heparin Sodium (Porcine) 1,000 unit 04/19/17 11:46 04/24/17 11:45 Heparin - IVPUSH 1,000 unit PRN PRN Administration Heparin Heparin Sodium (Porcine) 5,000 unit 04/19/17 11:46 04/21/17 09:17 Heparin - IVPUSH 5,000 unit PRN PRN Administration Heparin Heparin Sodium/Dextrose 25,000 units in 500 mls @ 20 mls/hr 04/19/17 12:00 12:44 Heparin Infusion - IVPB 2,200 units/hr TITR [facility] 44 mls/hr Protocol Administration 1,000 UNITS/HR CEFTRIAXONE IN IS-OSM DEXTROSE 2 gm in 50 mls @ 100 mls/hr 04/21/17 16:15 10:24 Ceftriaxone 2 Gm-D5w Bag IVPB 100 mls/hr DAILY [facility] Administration Insulin Aspart 1 vial 04/19/17 07:00 04/24/17 12:42 Novolog Vial Sliding Scale - SQ 2 units ACHS [facility] Administration Protocol Multi-Ingredient Lotion 1 applic 04/20/17 14:43 04/23/17 16:48 Eucerin (Large Jar) - TP 1 applic DAILY PRN Administration DRY SKIN Pantoprazole Sodium 20 mg 04/20/17 17:00 04/24/17 10:26 Protonix - PO 20 mg DAILY [facility] Administration Polyethylene Glycol 17 gm 04/22/17 10:00 04/24/17 11:45 Miralax (For Daily Use) - PO 17 grams DAILY [facility] Administration Pregabalin 75 mg 04/21/17 10:00 04/24/17 10:26 Lyrica - PO 75 mg DAILY [facility] Administration Torsemide 80 mg 04/21/17 10:00 04/24/17 10:25 Demadex - PO 80 mg DAILY [facility] Administration IMAGING: * CT ANGIOGRAM OF THE ABDOMEN AND PELVIS WITH BILATERAL LOWER EXTREMITY RUNOFFS. HISTORY: 56-year-old male with lower extremities claudication and abnormal flow is on ultrasound presenting for further evaluation. TECHNIQUE: Multiaxial CT angiogram of the abdomen and pelvis with bilateral lower extremity runoffs after the intravenous administration of contrast, in the arterial phase, was performed from the distal thoracic aorta through the common femoral arteries into the distal feet. Sagittal and coronal reformats were performed. Axial, sagittal and coronal maximum intensity projection reformats in addition to 3D MIP and 3D volume rendered reformats were performed on a separate dedicated station. Total of 1 40 cc of Omnipaque 350 was administered intravenously. No comparison CT angiogram is available. Correlation is made with lower extremity arterial Doppler dated April 18, 2017. Correlation is made with arterial duplex dated June 15, 2016 FINDINGS: VASCULAR: The distal thoracic, suprarenal and infrarenal abdominal aorta are normal caliber and widely patent. RIGHT: The right common iliac, external iliac and common femoral arteries are widely patent. Mural calcification with no significant luminal stenosis seen in the right internal iliac artery. There is significant arteriosclerosis of the medium and small vessel size branches of the internal iliac artery. Mural calcification seen in the right profunda artery with patent muscular branches. Diffuse circumferential mural calcification seen in the right SFA and popliteal with no significant luminal stenosis. Severe throughout the right TP trunk, ROB, PT and TAKE OFF [employer]ER extending to the plantar and dorsal branches of the foot. LEFT: The left common iliac, external iliac and common femoral arteries are widely patent. Mural calcification with no significant luminal stenosis seen in the left internal iliac artery. There is significant arteriosclerosis of the medium and small vessel size branches of the internal iliac artery. Mural calcification seen in the left profunda artery with patent muscular branches. Diffuse circumferential mural calcification seen in the left SFA and popliteal with no significant luminal stenosis. Severe throughout the right TP trunk, ROB, PT and TAKE OFF WORKER extending to the plantar and dorsal branches of the foot. The SMA, celiac trunk and the renal arteries are widely patent. Circumferential mural calcification seen in the CHARI. Extensive subcutaneous varicosities seen in the right and left calves and thighs with dilated great saphenous veins. There is significant skin thickening of the right and left calves and ankles. ABDOMEN AND PELVIS: The visualized lung bases and inferior mediastinum are grossly unremarkable. The liver, spleen, pancreas, gallbladder, biliary tree and adrenal glands are unremarkable. 2 small cysts one measuring 1.9 and the other 1.2 cm seen in the left kidney. There is significant arteriosclerosis of the segmental/intrarenal arteries. The urinary bladder is grossly unremarkable. The prostate gland is mildly enlarged measuring 5.8 cm indenting the posterior wall of the urinary bladder. The seminal vesicles are symmetric. Evaluation of the bowel loops is limited due to lack of oral contrast however there is no evidence of abnormal bowel dilatation to suggest bowel obstruction. The appendix is normal. The patient is status post partial gastrectomy. There is no evidence of pneumoperitoneum, abdominal ascites or enlarged lymph nodes. There is no gross destructive bony lesion IMPRESSION: Widely patent aortoiliac, iliofemoral and femoral popliteal arteries with progressive mural calcifications of the medium and small vessels most extensive and noticeable in the infrapopliteal arteries which appear to be patent however adequate evaluation is not feasible. Correlation with arterial Doppler with velocity measurements of the infrapopliteal arteries can be obtained. Bilateral lower extremity varicose veins in the claves and thighs with thickened skin in the calves and ankles likely secondary to chronic venous hypertension. Simple left renal cysts. Enlarged prostate gland indenting the posterior wall of the urinary bladder. Correlate with clinical history, physical exam and PSA level. Status post partial gastrectomy. 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 Problem List - Problems (1) Stasis edema with ulcer of left lower extremity Assessment/Plan: Aorta w/ run off CTA noted. . * Continue Heparin ggt. * arterial dopplers pending. * ID consult appreciated Switched to Ceftriaxone. -blood and wound cultures as above. * Plan for BONE SCAN tomorrow. (2) PVD (peripheral vascular disease) (3) ESRD (end stage renal disease) Assessment/Plan: next scheduled dialysis is for tomorrow. (4) DM type 2, uncontrolled, with renal complications Assessment/Plan: * ADA diet * BGM ACHS * ISS ACHS. (5) Morbid obesity Visit type - Emergency Visit Emergency Visit: Yes ED Registration Date: 04/18/17 Care time: The patient presented to the Emergency Department on the above date and was hospitalized for further evaluation of their emergent condition. - New Patient This patient is new to me today: Yes Date on this admission: 04/24/17 - Critical Care Critical Care patient: No - Discharge Referral Referred to [facility] Med P.C.: No
--- NOTE | 2017-04-24 18:56 | PN ---
Progress Note, Physician History of Present Illness: awake, alert seated in bed Reports improvement in L foot pain No fever/ chills Wound c/s S. aureus - Current Medication List Current Medications: Active Medications Atorvastatin Calcium (Lipitor -) 80 mg PO HS [facility] Last Admin: 04/23/17 22:42 Dose: 80 mg Calcium Acetate (Phoslo -) 1,334 mg PO TIDCM [facility] Last Admin: 04/24/17 16:36 Dose: 1,334 mg Carvedilol (Coreg -) 12.5 mg PO BID [facility] Last Admin: 04/24/17 10:24 Dose: 12.5 mg Collagenase (Santyl -) 1 applic TP DAILY [facility] Last Admin: 04/24/17 10:27 Dose: 1 applic Docusate Sodium (Colace -) 100 mg PO TID [facility] Last Admin: 04/24/17 16:36 Dose: 100 mg Heparin Sodium (Porcine) (Heparin -) 1,000 unit IVPUSH PRN PRN PRN Reason: Heparin Last Admin: 04/24/17 11:45 Dose: 1,000 unit Heparin Sodium (Porcine) (Heparin -) 5,000 unit IVPUSH PRN PRN PRN Reason: Heparin Last Admin: 04/21/17 09:17 Dose: 5,000 unit Heparin Sodium/Dextrose (Heparin Infusion -) 25,000 units in 500 mls @ 20 mls/ hr IVPB TITR [facility]; 1,000 UNITS/HR PRN Reason: Protocol Last Admin: 04/24/17 12:44 Dose: 2,200 units/hr, 44 mls/hr CEFTRIAXONE IN IS-OSM DEXTROSE (Ceftriaxone 2 Gm-D5w Bag) 2 gm in 50 mls @ 100 mls/hr IVPB DAILY [facility] Last Admin: 04/24/17 10:24 Dose: 100 mls/hr Insulin Aspart (Novolog Vial Sliding Scale -) 1 vial SQ ACHS [facility] PRN Reason: Protocol Last Admin: 04/24/17 17:55 Dose: 2 units Multi-Ingredient Lotion (Eucerin (Large Jar) -) 1 applic TP DAILY PRN PRN Reason: DRY SKIN Last Admin: 04/23/17 16:48 Dose: 1 applic Pantoprazole Sodium (Protonix -) 20 mg PO DAILY [facility] Last Admin: 04/24/17 10:26 Dose: 20 mg Polyethylene Glycol (Miralax (For Daily Use) -) 17 gm PO DAILY [facility] Last Admin: 04/24/17 11:45 Dose: 17 grams Pregabalin (Lyrica -) 75 mg PO DAILY [facility] Last Admin: 04/24/17 10:26 Dose: 75 mg Torsemide (Demadex -) 80 mg PO DAILY [facility] Last Admin: 04/24/17 10:25 Dose: 80 mg - Objective Vital Signs: Vital Signs Temperature 97.7 F 04/24/17 15:38 Pulse Rate 62 04/24/17 15:38 Respiratory Rate 22 04/24/17 15:38 Blood Pressure 121/68 04/24/17 15:38 O2 Sat by Pulse Oximetry (%) 95 04/24/17 10:48 Constitutional: Yes: No Distress Eyes: Yes: Conjunctiva Clear Cardiovascular: Yes: Regular Rate and Rhythm, S1, S2 Respiratory: Yes: CTA Bilaterally Gastrointestinal: Yes: Normal Bowel Sounds, Soft Extremities: Yes: Other (+ stasis dermatitis LE bilaterally. Dry ulcers great toe. Decreased swelling second toe. Dry necrotic ulcers, dorsum 2nd toe.) Labs: CBC, BMP 04/24/17 07:00 04/24/17 07:00 INR, PTT INR 1.18 (0.82-1.09) H 04/19/17 07:35 Assessment/Plan Ischemic v. infected R great and 2nd toes ESRD Continue ceftriaxone daily Local wound care
--- NOTE | 2017-04-24 19:15 | PN ---
Progress Note, Physician History of Present Illness: Pt seen and examined at bedside. He is awake and alert. He denies shortness of breath. - Current Medication List Current Medications: Active Medications Atorvastatin Calcium (Lipitor -) 80 mg PO HS [facility] Last Admin: 04/23/17 22:42 Dose: 80 mg Calcium Acetate (Phoslo -) 1,334 mg PO TIDCM [facility] Last Admin: 04/24/17 16:36 Dose: 1,334 mg Carvedilol (Coreg -) 12.5 mg PO BID [facility] Last Admin: 04/24/17 10:24 Dose: 12.5 mg Collagenase (Santyl -) 1 applic TP DAILY [facility] Last Admin: 04/24/17 10:27 Dose: 1 applic Docusate Sodium (Colace -) 100 mg PO TID [facility] Last Admin: 04/24/17 16:36 Dose: 100 mg Heparin Sodium (Porcine) (Heparin -) 1,000 unit IVPUSH PRN PRN PRN Reason: Heparin Last Admin: 04/24/17 11:45 Dose: 1,000 unit Heparin Sodium (Porcine) (Heparin -) 5,000 unit IVPUSH PRN PRN PRN Reason: Heparin Last Admin: 04/21/17 09:17 Dose: 5,000 unit Heparin Sodium/Dextrose (Heparin Infusion -) 25,000 units in 500 mls @ 20 mls/ hr IVPB TITR [facility]; 1,000 UNITS/HR PRN Reason: Protocol Last Admin: 04/24/17 12:44 Dose: 2,200 units/hr, 44 mls/hr CEFTRIAXONE IN IS-OSM DEXTROSE (Ceftriaxone 2 Gm-D5w Bag) 2 gm in 50 mls @ 100 mls/hr IVPB DAILY [facility] Last Admin: 04/24/17 10:24 Dose: 100 mls/hr Insulin Aspart (Novolog Vial Sliding Scale -) 1 vial SQ ACHS [facility] PRN Reason: Protocol Last Admin: 04/24/17 17:55 Dose: 2 units Multi-Ingredient Lotion (Eucerin (Large Jar) -) 1 applic TP DAILY PRN PRN Reason: DRY SKIN Last Admin: 04/23/17 16:48 Dose: 1 applic Pantoprazole Sodium (Protonix -) 20 mg PO DAILY [facility] Last Admin: 04/24/17 10:26 Dose: 20 mg Polyethylene Glycol (Miralax (For Daily Use) -) 17 gm PO DAILY [facility] Last Admin: 04/24/17 11:45 Dose: 17 grams Pregabalin (Lyrica -) 75 mg PO DAILY [facility] Last Admin: 04/24/17 10:26 Dose: 75 mg Torsemide (Demadex -) 80 mg PO DAILY [facility] Last Admin: 04/24/17 10:25 Dose: 80 mg - Objective Vital Signs: Vital Signs Temperature 97.7 F 04/24/17 15:38 Pulse Rate 62 04/24/17 15:38 Respiratory Rate 22 04/24/17 15:38 Blood Pressure 121/68 04/24/17 15:38 O2 Sat by Pulse Oximetry (%) 95 04/24/17 10:48 Constitutional: Yes: Calm Eyes: Yes: Conjunctiva Clear HENT: Yes: Atraumatic Cardiovascular: Yes: S1, S2 Respiratory: Yes: CTA Bilaterally Gastrointestinal: Yes: Normal Bowel Sounds, Soft Genitourinary: Yes: WNL Extremities: Yes: Other (lymphedema) Neurological: Yes: Oriented Psychiatric: Yes: Oriented Labs: CBC, BMP 04/24/17 07:00 04/24/17 07:00 INR, PTT INR 1.18 (0.82-1.09) H 04/19/17 07:35 Problem List - Problems (1) ESRD (end stage renal disease) Code(s): N18.6 - END STAGE RENAL DISEASE (2) PVD (peripheral vascular disease) Code(s): I73.9 - PERIPHERAL VASCULAR DISEASE, UNSPECIFIED (3) Anemia Code(s): D64.9 - ANEMIA, UNSPECIFIED Qualifiers: Anemia type: other cause Other causes of anemia: other cause, not classified Qualified Code(s): D64.89 - Other specified anemias (4) DM type 2, uncontrolled, with renal complications Code(s): E11.29 - TYPE 2 DIABETES MELLITUS W OTH DIABETIC KIDNEY COMPLICATION; E11.65 - TYPE 2 DIABETES MELLITUS WITH HYPERGLYCEMIA Qualifiers: Diabetes mellitus complication detail: with chronic kidney disease Assessment/Plan Current Medications Generic Name Dose Route Start Last Admin Trade Name Freq PRN Reason Stop Dose Admin Atorvastatin Calcium 80 mg 04/20/17 22:00 04/23/17 22:42 Lipitor - PO 80 mg HS [facility] Administration Calcium Acetate 1,334 mg 04/21/17 17:30 04/24/17 16:36 Phoslo - PO 1,334 mg TIDCM [facility] Administration Carvedilol 12.5 mg 04/20/17 10:00 04/24/17 10:24 Coreg - PO 12.5 mg BID [facility] Administration Collagenase 1 applic 04/21/17 10:00 04/24/17 10:27 Santyl - TP 1 applic DAILY [facility] Administration Docusate Sodium 100 mg 04/22/17 14:00 04/24/17 16:36 Colace - PO 100 mg TID [facility] Administration Heparin Sodium (Porcine) 1,000 unit 04/19/17 11:46 04/24/17 11:45 Heparin - IVPUSH 1,000 unit PRN PRN Administration Heparin Heparin Sodium (Porcine) 5,000 unit 04/19/17 11:46 04/21/17 09:17 Heparin - IVPUSH 5,000 unit PRN PRN Administration Heparin Heparin Sodium/Dextrose 25,000 units in 500 mls @ 20 mls/hr 04/19/17 12:00 12:44 Heparin Infusion - IVPB 2,200 units/hr TITR [facility] 44 mls/hr Protocol Administration 1,000 UNITS/HR CEFTRIAXONE IN IS-OSM DEXTROSE 2 gm in 50 mls @ 100 mls/hr 04/21/17 16:15 10:24 Ceftriaxone 2 Gm-D5w Bag IVPB 100 mls/hr DAILY [facility] Administration Insulin Aspart 1 vial 04/19/17 07:00 04/24/17 17:55 Novolog Vial Sliding Scale - SQ 2 units ACHS [facility] Administration Protocol Multi-Ingredient Lotion 1 applic 04/20/17 14:43 04/23/17 16:48 Eucerin (Large Jar) - TP 1 applic DAILY PRN Administration DRY SKIN Pantoprazole Sodium 20 mg 04/20/17 17:00 04/24/17 10:26 Protonix - PO 20 mg DAILY [facility] Administration Polyethylene Glycol 17 gm 04/22/17 10:00 04/24/17 11:45 Miralax (For Daily Use) - PO 17 grams DAILY [facility] Administration Pregabalin 75 mg 04/21/17 10:00 04/24/17 10:26 Lyrica - PO 75 mg DAILY [facility] Administration Torsemide 80 mg 04/21/17 10:00 04/24/17 10:25 Demadex - PO 80 mg DAILY [facility] Administration Impression 1. ESRD 2. anemia 3. HTN 4. morbid obesity 5. CVA 6. hyperlipidemia 7. proteinuria - nephrotic 8. PVD Plan - HD in am - podiatry follow up - wound cafre - cont current meds Dr Win
[2017-04-24] MEDS ORDERED: INSULIN (NOVOLOG) ASPART 100 UNITS/ML 10ML VIAL ONE (21:14)
[2017-04-24] MEDS: ATORVASTATIN CA 80 MG TABLET (FP) PO SCH (21:43)
[2017-04-25] MEDS: DOCUSATE SODIUM 100 MG CAPSULE (FP) PO SCH ×3 (06:36→21:58)
[2017-04-25] MEDS: INSULIN SLIDING SCALE (NOVOLOG) 1 VIAL SQ SCH ×4 (06:36→22:01)
[2017-04-25 08:17] LABS: HEMATOCRIT 32.7 % (35.4-49); HEMOGLOBIN 10.7 GM/dL (11.7-16.9); MCHC 32.5 g/dl (32.0-35.9); MEAN CELL VOLUME 92.3 fl (80-96); MEAN PLT VOLUME 9.5 fl (7.5-11.1); PLATELET COUNT 236 K/MM3 (134-434); RBC 3.55 M/mm3 (4.00-5.60); RDW 16.2 % (11.9-15.9); WHITE BLOOD COUNT 6.9 K/mm3 (4.0-10.0)
[2017-04-25] MEDS: PREGABALIN 75 MG CAPSULE PO SCH (09:11)
[2017-04-25] MEDS: POLYETHYLENE GLYCOL 3350 119 GM BTL PO SCH (09:11)
[2017-04-25] MEDS: CALCIUM ACETATE 667 MG CAPSULE (FP) PO SCH ×3 (09:11→17:12)
[2017-04-25] MEDS: PANTOPRAZOLE 20 MG TABLET (FP) PO SCH (09:11)
[2017-04-25] MEDS: HEPARIN NA (PORCINE) 5,000 UNITS/ML 1ML VIAL IVPUSH PRN (10:31)
--- NOTE | 2017-04-25 11:50 | PN ---
Progress Note, Physician History of Present Illness: awake, alert seen on dialysis No c/o L foot pain No fever/ chills Wound c/s S. aureus - Current Medication List Current Medications: Active Medications Atorvastatin Calcium (Lipitor -) 80 mg PO HS [facility] Last Admin: 04/24/17 21:43 Dose: 80 mg Calcium Acetate (Phoslo -) 1,334 mg PO TIDCM [facility] Last Admin: 04/25/17 09:11 Dose: 1,334 mg Carvedilol (Coreg -) 12.5 mg PO BID [facility] Last Admin: 04/24/17 21:43 Dose: 12.5 mg Collagenase (Santyl -) 1 applic TP DAILY [facility] Last Admin: 04/24/17 10:27 Dose: 1 applic Docusate Sodium (Colace -) 100 mg PO TID [facility] Last Admin: 04/25/17 06:36 Dose: 100 mg Heparin Sodium (Porcine) (Heparin -) 1,000 unit IVPUSH PRN PRN PRN Reason: Heparin Last Admin: 04/25/17 10:31 Dose: 1,000 unit Heparin Sodium (Porcine) (Heparin -) 5,000 unit IVPUSH PRN PRN PRN Reason: Heparin Last Admin: 04/21/17 09:17 Dose: 5,000 unit Heparin Sodium/Dextrose (Heparin Infusion -) 25,000 units in 500 mls @ 20 mls/ hr IVPB TITR [facility]; 1,000 UNITS/HR PRN Reason: Protocol Last Titration: 04/25/17 10:38 Dose: 2,300 units/hr, 46 mls/hr CEFTRIAXONE IN IS-OSM DEXTROSE (Ceftriaxone 2 Gm-D5w Bag) 2 gm in 50 mls @ 100 mls/hr IVPB DAILY [facility] Last Admin: 04/24/17 10:24 Dose: 100 mls/hr Insulin Aspart (Novolog Vial Sliding Scale -) 1 vial SQ ACHS [facility] PRN Reason: Protocol Last Admin: 04/25/17 06:36 Dose: Not Given Multi-Ingredient Lotion (Eucerin (Large Jar) -) 1 applic TP DAILY PRN PRN Reason: DRY SKIN Last Admin: 04/23/17 16:48 Dose: 1 applic Pantoprazole Sodium (Protonix -) 20 mg PO DAILY [facility] Last Admin: 04/25/17 09:11 Dose: 20 mg Polyethylene Glycol (Miralax (For Daily Use) -) 17 gm PO DAILY [facility] Last Admin: 04/25/17 09:11 Dose: 17 grams Pregabalin (Lyrica -) 75 mg PO DAILY [facility] Last Admin: 04/25/17 09:11 Dose: 75 mg Torsemide (Demadex -) 80 mg PO DAILY [facility] Last Admin: 04/24/17 10:25 Dose: 80 mg - Objective Vital Signs: Vital Signs Temperature 98 F 04/25/17 08:55 Pulse Rate 62 04/25/17 11:00 Respiratory Rate 18 04/25/17 11:00 Blood Pressure 120/72 04/25/17 11:00 O2 Sat by Pulse Oximetry (%) 98 04/25/17 09:00 Constitutional: Yes: No Distress Eyes: Yes: Conjunctiva Clear Cardiovascular: Yes: Regular Rate and Rhythm, S1, S2 Respiratory: Yes: CTA Bilaterally Gastrointestinal: Yes: Normal Bowel Sounds, Soft, Abdomen, Obese. No: Tenderness Extremities: Yes: Other (+ chronic venous stasis dermatitis LE bilaterally. Dry ulcers toes 1/2) Labs: CBC, BMP 04/25/17 06:20 04/24/17 07:00 INR, PTT INR 1.18 (0.82-1.09) H 04/19/17 07:35 Assessment/Plan Ischemic v. infected R great and 2nd toes ESRD Continue ceftriaxone daily Bone scan ordered Local wound care
--- NOTE | 2017-04-25 12:02 | PN ---
Progress Note (short form) - Note Progress Note: Podiatry F/U: Seen/evaluated at bedside in HD. NAD. Denies F/V/N/C/SOB/CP. Afebrile, VSS. Has yet to obtain bone scan L foot. KEEGAN: L foot: distal tuft hallux diabetic ulcer with mixed fibrogranular base, small area of eschar, no probing to bone, no purulence, no fluctuance, moderate periwound erythema, no streaking cellulitis. Dorsal 2nd digit diabetic ulcer x 2 with eschar, no purulent drainage, no fluctuance, no streaking cellulitis, no signs of infection. Duskiness improving to distal 2nd digit. WBC: 6.9 Wound Cx: MSSA, diphtheroid Imp: 56 year old DM M with L great toe diabetic ulcer, chronic osteomyelitis 1. IV abx per ID 2. C/w santyl + DSD L foot 3. Bone scan pending 4. Discussed treatment options at length with patient. He wishes to attempt salvage with IV abx treatment. I discussed with patient that if condition worsens he may need amputation in the future. Discussed case with Dr. Sheets as well. 5. HBO as outpatient adjunctive therapy. 6. Upon discharge, patient will follow up with me in wound healing center 05/02 Amarilis Alcantara DPM
[2017-04-25] MEDS: HEPARIN INFUSION - 25,000 UNITS/500 ML INFUS.BAG IVPB SCH ×2 (12:17)
--- NOTE | 2017-04-25 13:22 | PN ---
Teaching Attending Note Name of Resident: Pao Randall ATTENDING PHYSICIAN STATEMENT I saw and evaluated the patient. I reviewed the resident's note and discussed the case with the resident. I agree with the resident's findings and plan as documented. SUBJECTIVE:no complaints. states pain is controlled. denies Cp, SOB, fever, chills, N/V/C/D assessed during HD OBJECTIVE: Last Vital Signs Temp Pulse Resp BP Pulse Ox 98.0 F 60 18 129/78 98 04/25/17 10:00 04/25/17 12:00 04/25/17 12:00 04/25/17 12:00 04/25/17 09:00 General NAD CV S1 S2 RRR +murmur Lungs CTA anteriorly Extremities feet are warm. 1+ DP pulse R, LLE wrapped, dressing c/d/i, chronic venous changes B/L ASSESSMENT AND PLAN: 56 y/o M w/PMH of ESRD (on HD TTS), DM, PVD, OM, CVAx2 (w/LLE residual weakness ) admitted with LLE ischemia +/- Wound infection. 1. LLE ischemia vs OM- PVR done awaiting official read and vasc surgey input. also awaiting bone scan to be completed. on hep ggt and Ceftriaxone day 5 (day 7 of total abx therapy). pt refusing amputation at this time. requesting conservative management. Podiatry d/w pt risks/benefits. pain controlled. unable to obtain MRI due to obesity 2. ESRD on HD- currently on HD. cont per normal schedule. on phoslo 3. DM- cont iss/bm 4. CVA- with residual LLE weakness. 5. DVT ppx- hep ggt 6. PT eval.
[2017-04-25] MEDS: CARVEDILOL 12.5 MG TABLET (FP) PO SCH ×2 (13:26→21:58)
[2017-04-25] MEDS ORDERED: PT OWN MED DRAWER 7, Y5N ONE (13:31)
[2017-04-25] MEDS: TORSEMIDE 20 MG TABLET (FP) PO SCH (13:32)
[2017-04-25] MEDS: COLLAGENASE CLOSTRIDIUM HIST. 30 GRAMS TUBE TP SCH (13:33)
[2017-04-25] MEDS: CEFTRIAXONE IN IS-OSM DEXTROSE 2 GM/50 ML BAG IVPB SCH (13:45)
--- NOTE | 2017-04-25 15:38 | PN ---
Progress Note, Physician History of Present Illness: Pt seen and examined at bedside. He is awake and alert. He tolerated HD. - Current Medication List Current Medications: Active Medications Atorvastatin Calcium (Lipitor -) 80 mg PO HS [facility] Last Admin: 04/24/17 21:43 Dose: 80 mg Calcium Acetate (Phoslo -) 1,334 mg PO TIDCM [facility] Last Admin: 04/25/17 12:18 Dose: 1,334 mg Carvedilol (Coreg -) 12.5 mg PO BID [facility] Last Admin: 04/25/17 13:26 Dose: 12.5 mg Collagenase (Santyl -) 1 applic TP DAILY [facility] Last Admin: 04/25/17 13:33 Dose: 1 applic Docusate Sodium (Colace -) 100 mg PO TID [facility] Last Admin: 04/25/17 13:27 Dose: 100 mg Heparin Sodium (Porcine) (Heparin -) 1,000 unit IVPUSH PRN PRN PRN Reason: Heparin Last Admin: 04/25/17 10:31 Dose: 1,000 unit Heparin Sodium (Porcine) (Heparin -) 5,000 unit IVPUSH PRN PRN PRN Reason: Heparin Last Admin: 04/21/17 09:17 Dose: 5,000 unit Heparin Sodium/Dextrose (Heparin Infusion -) 25,000 units in 500 mls @ 20 mls/ hr IVPB TITR [facility]; 1,000 UNITS/HR PRN Reason: Protocol Last Admin: 04/25/17 12:17 Dose: 2,300 units/hr, 46 mls/hr CEFTRIAXONE IN IS-OSM DEXTROSE (Ceftriaxone 2 Gm-D5w Bag) 2 gm in 50 mls @ 100 mls/hr IVPB DAILY [facility] Last Admin: 04/24/17 10:24 Dose: 100 mls/hr Insulin Aspart (Novolog Vial Sliding Scale -) 1 vial SQ ACHS [facility] PRN Reason: Protocol Last Admin: 04/25/17 13:28 Dose: 2 units Multi-Ingredient Lotion (Eucerin (Large Jar) -) 1 applic TP DAILY PRN PRN Reason: DRY SKIN Last Admin: 04/23/17 16:48 Dose: 1 applic Pantoprazole Sodium (Protonix -) 20 mg PO DAILY [facility] Last Admin: 04/25/17 09:11 Dose: 20 mg Polyethylene Glycol (Miralax (For Daily Use) -) 17 gm PO DAILY [facility] Last Admin: 04/25/17 09:11 Dose: 17 grams Pregabalin (Lyrica -) 75 mg PO DAILY [facility] Last Admin: 04/25/17 09:11 Dose: 75 mg Torsemide (Demadex -) 80 mg PO DAILY [facility] Last Admin: 04/25/17 13:32 Dose: 80 mg - Objective Vital Signs: Vital Signs Temperature 98.0 F 04/25/17 14:22 Pulse Rate 65 04/25/17 14:22 Respiratory Rate 20 04/25/17 14:22 Blood Pressure 143/77 04/25/17 14:22 O2 Sat by Pulse Oximetry (%) 98 04/25/17 09:00 Constitutional: Yes: Calm Eyes: Yes: Conjunctiva Clear HENT: Yes: Atraumatic Cardiovascular: Yes: S1, S2 Respiratory: Yes: CTA Bilaterally Gastrointestinal: Yes: Soft, Abdomen, Obese Genitourinary: Yes: WNL Edema: Yes Edema: LLE: 1+, RLE: 1+ Wound/Incision: Yes: Open to air Neurological: Yes: Oriented Psychiatric: Yes: Oriented Labs: CBC, BMP 04/25/17 06:20 04/24/17 07:00 INR, PTT INR 1.18 (0.82-1.09) H 04/19/17 07:35 Problem List - Problems (1) ESRD (end stage renal disease) Code(s): N18.6 - END STAGE RENAL DISEASE (2) PVD (peripheral vascular disease) Code(s): I73.9 - PERIPHERAL VASCULAR DISEASE, UNSPECIFIED (3) Anemia Code(s): D64.9 - ANEMIA, UNSPECIFIED Qualifiers: Anemia type: other cause Other causes of anemia: other cause, not classified Qualified Code(s): D64.89 - Other specified anemias (4) DM type 2, uncontrolled, with renal complications Code(s): E11.29 - TYPE 2 DIABETES MELLITUS W OTH DIABETIC KIDNEY COMPLICATION; E11.65 - TYPE 2 DIABETES MELLITUS WITH HYPERGLYCEMIA Qualifiers: Diabetes mellitus complication detail: with chronic kidney disease Assessment/Plan Current Medications Generic Name Dose Route Start Last Admin Trade Name Freq PRN Reason Stop Dose Admin Atorvastatin Calcium 80 mg 04/20/17 22:00 04/24/17 21:43 Lipitor - PO 80 mg HS [facility] Administration Calcium Acetate 1,334 mg 04/21/17 17:30 04/25/17 12:18 Phoslo - PO 1,334 mg TIDCM [facility] Administration Carvedilol 12.5 mg 04/20/17 10:00 04/25/17 13:26 Coreg - PO 12.5 mg BID [facility] Administration Collagenase 1 applic 04/21/17 10:00 04/25/17 13:33 Santyl - TP 1 applic DAILY [facility] Administration Docusate Sodium 100 mg 04/22/17 14:00 04/25/17 13:27 Colace - PO 100 mg TID [facility] Administration Heparin Sodium (Porcine) 1,000 unit 04/19/17 11:46 04/25/17 10:31 Heparin - IVPUSH 1,000 unit PRN PRN Administration Heparin Heparin Sodium (Porcine) 5,000 unit 04/19/17 11:46 04/21/17 09:17 Heparin - IVPUSH 5,000 unit PRN PRN Administration Heparin Heparin Sodium/Dextrose 25,000 units in 500 mls @ 20 mls/hr 04/19/17 12:00 12:17 Heparin Infusion - IVPB 2,300 units/hr TITR [facility] 46 mls/hr Protocol Administration 1,000 UNITS/HR CEFTRIAXONE IN IS-OSM DEXTROSE 2 gm in 50 mls @ 100 mls/hr 04/21/17 16:15 10:24 Ceftriaxone 2 Gm-D5w Bag IVPB 100 mls/hr DAILY [facility] Administration Insulin Aspart 1 vial 04/19/17 07:00 04/25/17 13:28 Novolog Vial Sliding Scale - SQ 2 units ACHS [facility] Administration Protocol Multi-Ingredient Lotion 1 applic 04/20/17 14:43 04/23/17 16:48 Eucerin (Large Jar) - TP 1 applic DAILY PRN Administration DRY SKIN Pantoprazole Sodium 20 mg 04/20/17 17:00 04/25/17 09:11 Protonix - PO 20 mg DAILY [facility] Administration Polyethylene Glycol 17 gm 04/22/17 10:00 04/25/17 09:11 Miralax (For Daily Use) - PO 17 grams DAILY [facility] Administration Pregabalin 75 mg 04/21/17 10:00 04/25/17 09:11 Lyrica - PO 75 mg DAILY [facility] Administration Torsemide 80 mg 04/21/17 10:00 04/25/17 13:32 Demadex - PO 80 mg DAILY [facility] Administration Impression 1. ESRD 2. anemia 3. HTN 4. morbid obesity 5. CVA 6. hyperlipidemia 7. proteinuria - nephrotic 8. PVD Plan - pt tolerated HD today - podiatry input appreciated - cont with wound care - cont with torsemide Dr Win
[2017-04-25] MEDS ORDERED: INSULIN (NOVOLOG) ASPART 100 UNITS/ML 10ML VIAL ONE (17:02)
--- NOTE | 2017-04-25 17:17 | PN ---
Physical Exam: SUBJECTIVE: Patient seen and examined. Pt has no c/o. Pt denies chest pain, sob, abdominal pain, nausea, vomiting, fever, chills. OBJECTIVE: Vital Signs Period Temp Pulse Resp BP Sys/Leon Pulse Ox Last 24 Hr 97.9 F-98.4 F 56-69 18-20 107-143/42-78 97-98 GENERAL: The patient is awake, alert, and fully oriented, in no acute distress, pleasant. LUNGS: Breath sounds equal, clear to auscultation bilaterally, no wheezes, no crackles, no accessory muscle use. HEART: Regular rate and rhythm, S1, S2 without murmur, rub or gallop. ABDOMEN: Soft, nontender, nondistended, no guarding. EXTREMITIES: carlyn LE with thickened skin. Dressing to Left 1st and 2nd toes, CDI. No edema. PSYCH: Normal mood, normal affect. SKIN: Warm, dry, normal turgor, no rashes or lesions noted Laboratory Results - last 24 hr 04/24/17 04/24/17 04/24/17 17:52 18:00 21:47 WBC RBC Hgb Hct MCV MCH MCHC RDW Plt Count MPV PTT (Actin FS) 51.5 H POC Glucometer 166 189 04/25/17 04/25/17 04/25/17 06:20 06:20 06:36 WBC 6.9 RBC 3.55 L Hgb 10.7 L Hct 32.7 L MCV 92.3 MCH 30.0 MCHC 32.5 RDW 16.2 H Plt Count 236 MPV 9.5 PTT (Actin FS) 42.7 H POC Glucometer 116 04/25/17 12:21 WBC RBC Hgb Hct MCV MCH MCHC RDW Plt Count MPV PTT (Actin FS) POC Glucometer 153 Active Medications Generic Name Dose Route Start Last Admin Trade Name Freq PRN Reason Stop Dose Admin Atorvastatin Calcium 80 mg 04/20/17 22:00 04/24/17 21:43 Lipitor - PO 80 mg HS [facility] Administration Calcium Acetate 1,334 mg 04/21/17 17:30 04/25/17 12:18 Phoslo - PO 1,334 mg TIDCM [facility] Administration Carvedilol 12.5 mg 04/20/17 10:00 04/25/17 13:26 Coreg - PO 12.5 mg BID [facility] Administration Collagenase 1 applic 04/21/17 10:00 04/25/17 13:33 Santyl - TP 1 applic DAILY [facility] Administration Docusate Sodium 100 mg 04/22/17 14:00 04/25/17 13:27 Colace - PO 100 mg TID [facility] Administration Heparin Sodium (Porcine) 1,000 unit 04/19/17 11:46 04/25/17 10:31 Heparin - IVPUSH 1,000 unit PRN PRN Administration Heparin Heparin Sodium (Porcine) 5,000 unit 04/19/17 11:46 04/21/17 09:17 Heparin - IVPUSH 5,000 unit PRN PRN Administration Heparin Heparin Sodium/Dextrose 25,000 units in 500 mls @ 20 mls/hr 04/19/17 12:00 12:17 Heparin Infusion - IVPB 2,300 units/hr TITR [facility] 46 mls/hr Protocol Administration 1,000 UNITS/HR CEFTRIAXONE IN IS-OSM DEXTROSE 2 gm in 50 mls @ 100 mls/hr 04/21/17 16:15 13:45 Ceftriaxone 2 Gm-D5w Bag IVPB 100 mls/hr DAILY [facility] Administration Insulin Aspart 1 vial 04/19/17 07:00 04/25/17 13:28 Novolog Vial Sliding Scale - SQ 2 units ACHS [facility] Administration Protocol Multi-Ingredient Lotion 1 applic 04/20/17 14:43 04/23/17 16:48 Eucerin (Large Jar) - TP 1 applic DAILY PRN Administration DRY SKIN Pantoprazole Sodium 20 mg 04/20/17 17:00 04/25/17 09:11 Protonix - PO 20 mg DAILY [facility] Administration Polyethylene Glycol 17 gm 04/22/17 10:00 04/25/17 09:11 Miralax (For Daily Use) - PO 17 grams DAILY [facility] Administration Pregabalin 75 mg 04/21/17 10:00 04/25/17 09:11 Lyrica - PO 75 mg DAILY [facility] Administration Torsemide 80 mg 04/21/17 10:00 04/25/17 13:32 Demadex - PO 80 mg DAILY [facility] Administration ASSESSMENT/PLAN: 56M with PMH of DM, ESRD (on HD TTS), PVD, OM, 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 # Left LE ischemia vs OM - Heparin drip, monitor PTT and adjust per protocol - Vascular Surgery (Dr. Sheets) recs appreciated: no vascular intervention at this time - f/u LE US - f/u bone scan - Day 5 of IV Ceftriaxone (Day 7 of IV antibiotics) - blood culture (-) x 5 days - wound culture (+) for staph aureus and diphtheroid/corynebacterium - wound care per Podiatry (Dr. Alcantara) # ESRD on HD - Nephrology (Dr. Win) recs appreciated - s/p HD today - continue Phoslo # DM - BGMs - SSI # FEN - Fluids: po - Electrolytes: continue to monitor - Nutrition: renal, diabetic diet # Prophylaxis - DVT ppx with Heparin drip - deconditioning ppx with PT Visit type - Emergency Visit Emergency Visit: Yes ED Registration Date: 04/18/17 Care time: The patient presented to the Emergency Department on the above date and was hospitalized for further evaluation of their emergent condition. - New Patient This patient is new to me today: No - Critical Care Critical Care patient: No
[2017-04-25] MEDS: ATORVASTATIN CA 80 MG TABLET (FP) PO SCH (21:58)
[2017-04-26] MEDS: DOCUSATE SODIUM 100 MG CAPSULE (FP) PO SCH ×3 (06:39→21:35)
[2017-04-26] MEDS: INSULIN SLIDING SCALE (NOVOLOG) 1 VIAL SQ SCH ×4 (06:40→21:41)
[2017-04-26 08:28] LABS: HEMOGLOBIN 10.7 GM/dL (11.7-16.9); MCH 29.8 pg (25.7-33.7); MCHC 32.3 g/dl (32.0-35.9); MEAN CELL VOLUME 92.5 fl (80-96); MEAN PLT VOLUME 9.5 fl (7.5-11.1); PLATELET COUNT 230 K/MM3 (134-434); RBC 3.57 M/mm3 (4.00-5.60); RDW 16.6 % (11.9-15.9); WHITE BLOOD COUNT 7.6 K/mm3 (4.0-10.0)
[2017-04-26] MEDS: CALCIUM ACETATE 667 MG CAPSULE (FP) PO SCH ×3 (08:39→18:06)
[2017-04-26] MEDS: HEPARIN INFUSION - 25,000 UNITS/500 ML INFUS.BAG IVPB SCH ×5 (09:27→22:47)
[2017-04-26 09:54] LABS: ANION GAP 11 (8-16); BLOOD UREA NITROGEN 41 mg/dL (7-18); CALCIUM 8.2 mg/dL (8.5-10.1); CHLORIDE 99 mmol/L (98-107); CO2 29 mmol/L (21-32); CREATININE 6.7 mg/dL (0.7-1.3); GLUCOSE,RANDOM 131 mg/dL (74-106); POTASSIUM 3.6 mmol/L (3.5-5.1); SODIUM 139 mmol/L (136-145)
[2017-04-26] MEDS ORDERED: PT OWN MED DRAWER 7, Y5N ONE (10:32)
[2017-04-26] MEDS: CARVEDILOL 12.5 MG TABLET (FP) PO SCH ×2 (10:36→21:35)
[2017-04-26] MEDS: TORSEMIDE 20 MG TABLET (FP) PO SCH (10:37)
[2017-04-26] MEDS: COLLAGENASE CLOSTRIDIUM HIST. 30 GRAMS TUBE TP SCH (10:38)
[2017-04-26] MEDS: POLYETHYLENE GLYCOL 3350 119 GM BTL PO SCH (10:38)
[2017-04-26] MEDS: PREGABALIN 75 MG CAPSULE PO SCH (10:38)
[2017-04-26] MEDS: PANTOPRAZOLE 20 MG TABLET (FP) PO SCH (10:38)
--- NOTE | 2017-04-26 11:47 | PN ---
Progress Note (short form) - Note Progress Note: Podiatry F/U: Seen/evaluated at bedside, NAD. Pain much improved, denies F/V/N/C/SOB/CP. Afebrile, VSS. Bone scan in progress. KEEGAN: L foot: distal hallux diabetic, PVD ulcer with mixed base, mostly fibrogranular with small area of eschar, no probing to bone, no purulent drainage, no fluctuance,, periwound erythema improving, no streaking cellulitis, no signs of active infection. L 2nd digit pressure ulcers at the dorsal PIPJ and DIPJ, eschar present, no bogginess, no bone expose, no purulent drainage, no fluctuance, no ascending cellulitis, no signs of active infection. Duskiness to distal tip of toe improving. Mild tenderness to palpation. Wound Cx: MSSA, diphtheroid Bone Scan: pending Imp: 56 year old DM M with L great toe diabetic ulcer, L 2nd digit necrotic ulcer, r/o osteomyelitis 1. Excisional debridement performed of L great toe diabetic ulcer to level of subcutaneous tissue using #15 blade scalpel. 2. C/w santyl daily to L foot ulcers 3. Bone scan pending 4. I had a thorough discussion with the patient regarding tx options. He would like to attempt to salvage toes and thus we will treat bone infection with IV abx. Likely done post-HD. 5. Discussed case with Dr. Sheets. Will hold off on angio and if condition worsens will intervene. 6. Will f/u closely in wound healing center upon discharge. Amarilis Alcantara DPM
[2017-04-26] MEDS: CEFTRIAXONE IN IS-OSM DEXTROSE 2 GM/50 ML BAG IVPB SCH (12:06)
--- NOTE | 2017-04-26 12:50 | PN ---
Teaching Attending Note Name of Resident: Pao Randall ATTENDING PHYSICIAN STATEMENT I saw and evaluated the patient. I reviewed the resident's note and discussed the case with the resident. I agree with the resident's findings and plan as documented. SUBJECTIVE:some foot pain at rest at night. pain dissipates when ambulating. tolerated HD yesterday. delia CP, SOb, fever, chills, N/V/C/D OBJECTIVE: Last Vital Signs Temp Pulse Resp BP Pulse Ox 97.9 F 59 L 20 119/64 98 04/26/17 06:00 04/26/17 06:00 04/26/17 06:00 04/26/17 06:00 04/25/17 21:00 General NAD Extremities feet are warm. 1+ DP pulse R, LLE with necrosis at tip of 1st digit. 2nd digit with medial eschar at distal and proximal metatarsal. some surrounding erythema, +tender, no active oozing. ASSESSMENT AND PLAN: 56 y/o M w/PMH of ESRD (on HD TTS), DM, PVD, OM, CVAx2 (w/LLE residual weakness ) admitted with LLE ischemia +/- Wound infection. 1. LLE ischemia vs OM- bedside debridement done by podiatry. Bone scan today. awaiting official read of PVR. will cont Ceftriaxone day 8. f/u official Cx. on hep ggt. pt refusing amputation. ID, podiatry, vasc surgery on board. 2. ESRD on HD- currently on HD. cont per normal schedule. on phoslo 3. DM- cont iss/bm 4. CVA- with residual LLE weakness. 5. DVT ppx- hep ggt 6. PT eval.
--- NOTE | 2017-04-26 13:06 | PN ---
Progress Note, Physician History of Present Illness: Pt seen and examined at bedside. He is awake and alert. - Current Medication List Current Medications: Active Medications Atorvastatin Calcium (Lipitor -) 80 mg PO HS [facility] Last Admin: 04/25/17 21:58 Dose: 80 mg Calcium Acetate (Phoslo -) 1,334 mg PO TIDCM [facility] Last Admin: 04/26/17 12:15 Dose: 1,334 mg Carvedilol (Coreg -) 12.5 mg PO BID [facility] Last Admin: 04/26/17 10:36 Dose: 12.5 mg Collagenase (Santyl -) 1 applic TP DAILY [facility] Last Admin: 04/26/17 10:38 Dose: 1 applic Docusate Sodium (Colace -) 100 mg PO TID [facility] Last Admin: 04/26/17 06:39 Dose: 100 mg Heparin Sodium (Porcine) (Heparin -) 1,000 unit IVPUSH PRN PRN PRN Reason: Heparin Last Admin: 04/25/17 10:31 Dose: 1,000 unit Heparin Sodium (Porcine) (Heparin -) 5,000 unit IVPUSH PRN PRN PRN Reason: Heparin Last Admin: 04/21/17 09:17 Dose: 5,000 unit Heparin Sodium/Dextrose (Heparin Infusion -) 25,000 units in 500 mls @ 20 mls/ hr IVPB TITR [facility]; 1,000 UNITS/HR PRN Reason: Protocol Last Admin: 04/26/17 12:07 Dose: Not Given CEFTRIAXONE IN IS-OSM DEXTROSE (Ceftriaxone 2 Gm-D5w Bag) 2 gm in 50 mls @ 100 mls/hr IVPB DAILY [facility] Last Admin: 04/26/17 12:06 Dose: 100 mls/hr Insulin Aspart (Novolog Vial Sliding Scale -) 1 vial SQ ACHS [facility] PRN Reason: Protocol Last Admin: 04/26/17 12:13 Dose: 2 units Multi-Ingredient Lotion (Eucerin (Large Jar) -) 1 applic TP DAILY PRN PRN Reason: DRY SKIN Last Admin: 04/23/17 16:48 Dose: 1 applic Pantoprazole Sodium (Protonix -) 20 mg PO DAILY [facility] Last Admin: 04/26/17 10:38 Dose: 20 mg Polyethylene Glycol (Miralax (For Daily Use) -) 17 gm PO DAILY [facility] Last Admin: 04/26/17 10:38 Dose: 17 grams Pregabalin (Lyrica -) 75 mg PO DAILY [facility] Last Admin: 04/26/17 10:38 Dose: 75 mg Torsemide (Demadex -) 80 mg PO DAILY [facility] Last Admin: 04/26/17 10:37 Dose: 80 mg - Objective Vital Signs: Vital Signs Temperature 97.9 F 04/26/17 06:00 Pulse Rate 59 L 04/26/17 06:00 Respiratory Rate 20 04/26/17 06:00 Blood Pressure 119/64 04/26/17 06:00 O2 Sat by Pulse Oximetry (%) 98 04/25/17 21:00 Constitutional: Yes: Calm Eyes: Yes: Conjunctiva Clear HENT: Yes: Atraumatic Cardiovascular: Yes: S1, S2 Respiratory: Yes: CTA Bilaterally Gastrointestinal: Yes: Soft, Abdomen, Obese Genitourinary: Yes: WNL Musculoskeletal: Yes: WNL Edema: Yes Edema: LLE: 1+, RLE: 1+ Neurological: Yes: Oriented Psychiatric: Yes: Oriented Labs: CBC, BMP 04/26/17 08:10 04/26/17 08:10 INR, PTT INR 1.18 (0.82-1.09) H 04/19/17 07:35 Problem List - Problems (1) ESRD (end stage renal disease) Code(s): N18.6 - END STAGE RENAL DISEASE (2) PVD (peripheral vascular disease) Code(s): I73.9 - PERIPHERAL VASCULAR DISEASE, UNSPECIFIED (3) Anemia Code(s): D64.9 - ANEMIA, UNSPECIFIED Qualifiers: Anemia type: other cause Other causes of anemia: other cause, not classified Qualified Code(s): D64.89 - Other specified anemias (4) DM type 2, uncontrolled, with renal complications Code(s): E11.29 - TYPE 2 DIABETES MELLITUS W OTH DIABETIC KIDNEY COMPLICATION; E11.65 - TYPE 2 DIABETES MELLITUS WITH HYPERGLYCEMIA Qualifiers: Diabetes mellitus complication detail: with chronic kidney disease Assessment/Plan Current Medications Generic Name Dose Route Start Last Admin Trade Name Freq PRN Reason Stop Dose Admin Atorvastatin Calcium 80 mg 04/20/17 22:00 04/25/17 21:58 Lipitor - PO 80 mg HS [facility] Administration Calcium Acetate 1,334 mg 04/21/17 17:30 04/26/17 12:15 Phoslo - PO 1,334 mg TIDCM [facility] Administration Carvedilol 12.5 mg 04/20/17 10:00 04/26/17 10:36 Coreg - PO 12.5 mg BID [facility] Administration Collagenase 1 applic 04/21/17 10:00 04/26/17 10:38 Santyl - TP 1 applic DAILY [facility] Administration Docusate Sodium 100 mg 04/22/17 14:00 04/26/17 06:39 Colace - PO 100 mg TID [facility] Administration Heparin Sodium (Porcine) 1,000 unit 04/19/17 11:46 04/25/17 10:31 Heparin - IVPUSH 1,000 unit PRN PRN Administration Heparin Heparin Sodium (Porcine) 5,000 unit 04/19/17 11:46 04/21/17 09:17 Heparin - IVPUSH 5,000 unit PRN PRN Administration Heparin Heparin Sodium/Dextrose 25,000 units in 500 mls @ 20 mls/hr 04/19/17 12:00 12:07 Heparin Infusion - IVPB Not Given TITR [facility] Protocol 1,000 UNITS/HR CEFTRIAXONE IN IS-OSM DEXTROSE 2 gm in 50 mls @ 100 mls/hr 04/21/17 16:15 12:06 Ceftriaxone 2 Gm-D5w Bag IVPB 100 mls/hr DAILY [facility] Administration Insulin Aspart 1 vial 04/19/17 07:00 04/26/17 12:13 Novolog Vial Sliding Scale - SQ 2 units ACHS [facility] Administration Protocol Multi-Ingredient Lotion 1 applic 04/20/17 14:43 04/23/17 16:48 Eucerin (Large Jar) - TP 1 applic DAILY PRN Administration DRY SKIN Pantoprazole Sodium 20 mg 04/20/17 17:00 04/26/17 10:38 Protonix - PO 20 mg DAILY [facility] Administration Polyethylene Glycol 17 gm 04/22/17 10:00 04/26/17 10:38 Miralax (For Daily Use) - PO 17 grams DAILY [facility] Administration Pregabalin 75 mg 04/21/17 10:00 04/26/17 10:38 Lyrica - PO 75 mg DAILY [facility] Administration Torsemide 80 mg 04/21/17 10:00 04/26/17 10:37 Demadex - PO 80 mg DAILY [facility] Administration Impression 1. ESRD 2. anemia 3. HTN 4. morbid obesity 5. CVA 6. hyperlipidemia 7. proteinuria - nephrotic 8. PVD Plan - HD in am - follow bone scan - podiatry follow up - wound care - cont torsemide - renal diet Dr Win
--- NOTE | 2017-04-26 13:45 | PN ---
Physical Exam: SUBJECTIVE: Patient seen and examined. Pt c/o intermittent Left foot pain, which is relieved with pain medication. Pt denies chest pain, sob, abdominal pain, nausea, vomiting, constipation, diarrhea, fever, chills. No events overnight. OBJECTIVE: Vital Signs Period Temp Pulse Resp BP Sys/Leon Pulse Ox Last 24 Hr 97.9 F-98.2 F 59-105 20-22 99-143/47-78 98 GENERAL: The patient is awake, alert, and fully oriented, in no acute distress, pleasant. LUNGS: Breath sounds equal, clear to auscultation bilaterally, no wheezes, no crackles, no accessory muscle use. HEART: Regular rate and rhythm, S1, S2 without murmur, rub or gallop. ABDOMEN: Soft, nontender, nondistended, no guarding. EXTREMITIES: carlyn LE with thickened skin. No edema. Left 1st digit: necrosis at tip of toe. Left 2nd digit: eschar slightly larger than 1cm each at distal and proximal metatarsal. Surrounding erythema noted, no active oozing. Left foot has diminished sensation, ulcers are nontender to palpation. Pulses appreciated with Doppler. PSYCH: Normal mood, normal affect. SKIN: Warm, dry, normal turgor, no rashes or lesions noted Laboratory Results - last 24 hr 04/25/17 04/25/17 04/25/17 16:00 17:11 22:00 WBC RBC Hgb Hct MCV MCH MCHC RDW Plt Count MPV PTT (Actin FS) 59.9 H D Sodium Potassium Chloride Carbon Dioxide Anion Gap BUN Creatinine POC Glucometer 154 176 Random Glucose Calcium 04/26/17 04/26/17 04/26/17 06:39 08:10 08:10 WBC 7.6 RBC 3.57 L Hgb 10.7 L Hct 33.0 L MCV 92.5 MCH 29.8 MCHC 32.3 RDW 16.6 H Plt Count 230 MPV 9.5 PTT (Actin FS) Sodium 139 Potassium 3.6 Chloride 99 Carbon Dioxide 29 Anion Gap 11 BUN 41 H Creatinine 6.7 H POC Glucometer 149 Random Glucose 131 H Calcium 8.2 L 04/26/17 04/26/17 08:10 12:03 WBC RBC Hgb Hct MCV MCH MCHC RDW Plt Count MPV PTT (Actin FS) 90.4 H D Sodium Potassium Chloride Carbon Dioxide Anion Gap BUN Creatinine POC Glucometer 151 Random Glucose Calcium Active Medications Generic Name Dose Route Start Last Admin Trade Name Freq PRN Reason Stop Dose Admin Atorvastatin Calcium 80 mg 04/20/17 22:00 04/25/17 21:58 Lipitor - PO 80 mg HS [facility] Administration Calcium Acetate 1,334 mg 04/21/17 17:30 04/26/17 12:15 Phoslo - PO 1,334 mg TIDCM [facility] Administration Carvedilol 12.5 mg 04/20/17 10:00 04/26/17 10:36 Coreg - PO 12.5 mg BID [facility] Administration Collagenase 1 applic 04/21/17 10:00 04/26/17 10:38 Santyl - TP 1 applic DAILY [facility] Administration Docusate Sodium 100 mg 04/22/17 14:00 04/26/17 06:39 Colace - PO 100 mg TID [facility] Administration Epoetin Lawrence 5,000 unit 04/27/17 13:07 Epogen - IVPUSH 04/27/17 13:08 ONCE ONE Heparin Sodium (Porcine) 1,000 unit 04/19/17 11:46 04/25/17 10:31 Heparin - IVPUSH 1,000 unit PRN PRN Administration Heparin Heparin Sodium (Porcine) 5,000 unit 04/19/17 11:46 04/21/17 09:17 Heparin - IVPUSH 5,000 unit PRN PRN Administration Heparin Heparin Sodium/Dextrose 25,000 units in 500 mls @ 20 mls/hr 04/19/17 12:00 12:07 Heparin Infusion - IVPB Not Given TITR [facility] Protocol 1,000 UNITS/HR CEFTRIAXONE IN IS-OSM DEXTROSE 2 gm in 50 mls @ 100 mls/hr 04/21/17 16:15 12:06 Ceftriaxone 2 Gm-D5w Bag IVPB 100 mls/hr DAILY [facility] Administration Insulin Aspart 1 vial 04/19/17 07:00 04/26/17 12:13 Novolog Vial Sliding Scale - SQ 2 units ACHS [facility] Administration Protocol Multi-Ingredient Lotion 1 applic 04/20/17 14:43 04/23/17 16:48 Eucerin (Large Jar) - TP 1 applic DAILY PRN Administration DRY SKIN Pantoprazole Sodium 20 mg 04/20/17 17:00 04/26/17 10:38 Protonix - PO 20 mg DAILY [facility] Administration Polyethylene Glycol 17 gm 04/22/17 10:00 04/26/17 10:38 Miralax (For Daily Use) - PO 17 grams DAILY [facility] Administration Pregabalin 75 mg 04/21/17 10:00 04/26/17 10:38 Lyrica - PO 75 mg DAILY [facility] Administration Torsemide 80 mg 04/21/17 10:00 04/26/17 10:37 Demadex - PO 80 mg DAILY [facility] Administration ASSESSMENT/PLAN: 56M with PMH of DM, ESRD (on HD TTS), PVD, OM, 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 # Left LE ischemia vs OM - Heparin drip, monitor PTT and adjust per protocol - Vascular Surgery (Dr. Sheets) recs appreciated: no vascular intervention at this time - f/u LE US - f/u bone scan - Day 8 of IV Ceftriaxone - wound culture (+) for staph aureus and diphtheroid/corynebacterium - wound care per Podiatry (Dr. Alcantara) - bedside debridement performed # ESRD on HD - Nephrology (Dr. Win) recs appreciated - HD scheduled for tomorrow - continue Phoslo and Torsemide # DM - BGMs, range from 116-176 x 24 hrs - SSI # FEN - Fluids: po - Electrolytes: continue to monitor - Nutrition: renal, diabetic diet # Prophylaxis - DVT ppx with Heparin drip - deconditioning ppx with PT Visit type - Emergency Visit Emergency Visit: Yes ED Registration Date: 04/18/17 Care time: The patient presented to the Emergency Department on the above date and was hospitalized for further evaluation of their emergent condition. - New Patient This patient is new to me today: No - Critical Care Critical Care patient: No
[2017-04-26] MEDS: ATORVASTATIN CA 80 MG TABLET (FP) PO SCH (21:35)
[2017-04-27] MEDS: DOCUSATE SODIUM 100 MG CAPSULE (FP) PO SCH ×2 (06:08→13:36)
[2017-04-27] MEDS: INSULIN SLIDING SCALE (NOVOLOG) 1 VIAL SQ SCH ×3 (06:14→17:05)
[2017-04-27] MEDS: CALCIUM ACETATE 667 MG CAPSULE (FP) PO SCH ×3 (08:09→17:58)
[2017-04-27] MEDS ORDERED: EPOETIN ALFA 3,000 UNIT, EPOETIN ALFA 2,000 UNIT IVPUSH ONE (09:00)
[2017-04-27] MEDS ORDERED: ACETAMINOPHEN 325 MG TABLET (FP) PO PRN (10:15)
[2017-04-27] MEDS: CEFTRIAXONE IN IS-OSM DEXTROSE 2 GM/50 ML BAG IVPB SCH ×2 (10:35→13:33)
[2017-04-27] MEDS: CARVEDILOL 12.5 MG TABLET (FP) PO SCH ×2 (10:35→13:37)
[2017-04-27] MEDS: TORSEMIDE 20 MG TABLET (FP) PO SCH ×2 (10:35→13:38)
[2017-04-27] MEDS: PREGABALIN 75 MG CAPSULE PO SCH ×2 (10:40→13:37)
[2017-04-27] MEDS: POLYETHYLENE GLYCOL 3350 119 GM BTL PO SCH (10:41)
[2017-04-27] MEDS: PANTOPRAZOLE 20 MG TABLET (FP) PO SCH ×2 (10:41→13:37)
[2017-04-27] MEDS: COLLAGENASE CLOSTRIDIUM HIST. 30 GRAMS TUBE TP SCH (10:41)
[2017-04-27] MEDS: HEPARIN INFUSION - 25,000 UNITS/500 ML INFUS.BAG IVPB SCH ×2 (10:43→13:21)
--- NOTE | 2017-04-27 12:13 | PN ---
Progress Note (short form) - Note Progress Note: Podiatry: Seen/evaluated at bedside, in HD, NAD. Pain intermittent to L foot, denies F/V/ N/C/SOB/CP. Afebrile, VSS. KEEGAN: L foot: distal tuft hallux diabetic ulcer with mixed fibrogranular base, no further necrotic tissue, no probing to bone, no purulent drainage, no fluctuance , no streaking cellulitis, no signs of active infection. Minimal tenderness to palpation. L 2nd digit PIPJ and DIPJ necrotic eschars, ulcer at PIPJ probes to capsule, no exposed bone, no purulent drainage, no fluctuance, no streaking cellulitis, mild periwound erythema, no signs of active infection. Duskiness to distal tip of 2nd digit somewhat improved. Wound Cx: MSSA, diphtheroid Bone Scan: (+) OM Imp: 56 year old DM M with L great toe diabetic ulcer, L 2nd digit necrotic ulcer, chronic osteomyelitis 1. C/w IV abx per Infectious Disease. Discussed case with Infectious Disease, will treat osteomyelitis with vancomycin post-HD 2. C/w santyl daily to L foot 3. Rx surgical shoe. Partial weightbearing with surgical shoe. 4. Excisional debridement of left great toe diabetic ulcer to subcutaneous tissue using sterile scissors 5. Again discussed treatment options at length with patient. He wishes to attempt salvage with abx for treatment of osteomyelitis. He understands that if condition worsens or conservative therapy fails he will need amputation. 6. Will f/u with me in wound healing center 05/02/17 Amarilis Alcantara DPM
[2017-04-27] MEDS ORDERED: EPOETIN ALFA 2,000 UNIT/1 ML VIAL IVPUSH ONE (13:07)
[2017-04-27] MEDS ORDERED: PT OWN MED DRAWER 7, Y5N ONE (13:26)
--- NOTE | 2017-04-27 13:26 | PN ---
Progress Note (short form) - Note Progress Note: Arterial doppler study showed pulsatile flow to both feet on PVR with non- compressible vessels at ankle. There is no need for vascular intervention at this time. Continue wound care and antibiotics for suspected osteomyelitis.
--- NOTE | 2017-04-27 13:30 | PN ---
Teaching Attending Note Name of Resident: Pao Randall ATTENDING PHYSICIAN STATEMENT I saw and evaluated the patient. I reviewed the resident's note and discussed the case with the resident. I agree with the resident's findings and plan as documented. SUBJECTIVE:asymptomatic. denies Cp, SOB, fever, chills, N/V/C/D OBJECTIVE: Last Vital Signs Temp Pulse Resp BP Pulse Ox 98.3 F 70 21 110/55 96 04/27/17 13:20 04/27/17 13:20 04/27/17 13:20 04/27/17 13:20 04/26/17 21:00 General NAD Extremities feet are warm. 1+ DP pulse R, LLE with necrosis at tip of 1st digit. 2nd digit with medial eschar at distal and proximal metatarsal. some surrounding erythema, +tender, no active oozing. ASSESSMENT AND PLAN: 56 y/o M w/PMH of ESRD (on HD TTS), DM, PVD, OM, CVAx2 (w/LLE residual weakness ) admitted with LLE ischemia +/- Wound infection. 1. LLE OM-Bone scan +OM. re-evaluated foot with podiatry. will attempt conservative management at this time. will d/c hep ggt. on ceftriaxone day 7. will confirm dosing on vanco and give 1st dose here. and then will get vanco with HD. if no improvement in 6 weeks pt is understanding will require amputation. wound care per podiatry. ID, podiatry, vasc surgery on board. 2. ESRD on HD- currently on HD. cont per normal schedule. on phoslo 3. DM- cont iss/bm 4. CVA- with residual LLE weakness. 5. DVT ppx- hep ggt 6. PT eval. pt states was having difficutly ambulating. if unable to walk will need STEF placement if not pt can d/c home today after abx is arranged with HD center
--- NOTE | 2017-04-27 15:28 | DS ---
Physical Exam: SUBJECTIVE: Patient seen and examined. Pt c/o intermittent Left foot pain, which is relieved with pain medication. Pt denies chest pain, sob, abdominal pain, nausea, vomiting, constipation, diarrhea, fever, chills. OBJECTIVE: Vital Signs Period Temp Pulse Resp BP Sys/Leon Pulse Ox Last 24 Hr 97.5 F-99 F 57-80 18-22 93-149/50-78 96 PHYSICAL EXAM GENERAL: The patient is awake, alert, and fully oriented, in no acute distress, pleasant. LUNGS: Breath sounds equal, clear to auscultation bilaterally, no wheezes, no crackles, no accessory muscle use. HEART: Regular rate and rhythm, S1, S2 without murmur, rub or gallop. ABDOMEN: Soft, nontender, nondistended, no guarding. EXTREMITIES: carlyn LE with thickened skin. No edema. Left 1st digit: tip of toe s/p debridment. Left 2nd digit: eschar slightly larger than 1cm each at distal and proximal metatarsal. Surrounding erythema noted, no active oozing. Left foot has diminished sensation, ulcers are nontender to palpation. Tenderness to medial 2nd toe appreciated. PSYCH: Normal mood, normal affect. 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 Pt received bedside debridment of Left great toe by Dr. Alcantara (Podiatry). Pt seen by Dr. Sheets (Vascular Surgery) and no vascular intervention needed at this time. Pt received IV antibiotics throughout this hospitalization. Pt continues hemodialysis on TTS schedule. Microbiology 04/18/17 18:00 Blood - Peripheral Venous Blood Culture - Final NO GROWTH AFTER 5 DAYS INCUBATION 04/18/17 18:00 Blood - Peripheral Venous Blood Culture - Final NO GROWTH AFTER 5 DAYS INCUBATION 04/20/17 12:20 Foot - Left Gram Stain - Final 04/20/17 12:20 Foot - Left Wound Culture - Final Staphylococcus Aureus Diphtheroid/Corynebacterium 04/18/17 Duplex carlyn LE -> somewhat diminished flow at Left popliteal artery. Left posterior tibial artery with questionable occlusion. 04/18/17 CXR -> no active pulmonary disease 04/18/17 Left foot xray -> slight deformity of tuft of great toe again noted. No change since 09/2016 study. 04/20/17 CTA -> diffuse mural calcification without evidence of luminal stenosis 04/21/17 LE US/Arterial Doppler -> 04/26/17 bone scan -> (+) for osteomyelitis to Left great toe Pt walked 55 ft with PT today. Pt is stable for discharge home. Minutes to complete discharge: 40 <Pao Randall - Last Filed: 04/27/17 15:19> Physical Exam: pt was found to have OM of the first digit in the L foot. refused amputation and opted for medical management. was d/c on vanco with HD <Opal Pinedo - Last Filed: 04/29/17 16:07> Discharge Summary Reason For Visit: STASIS EDEMA WITH ULCER OF LEFT LOWER EXTREMITY PE Current Active Problems ESRD (end stage renal disease) (Acute) PVD (peripheral vascular disease) (Acute) Stasis edema with ulcer of left lower extremity (Chronic) - Home Medications Comprehensive Discharge Medication List: Ambulatory Orders Omeprazole [Prilosec (RX)] 20 mg PO DAILY 08/13/14 Atorvastatin Ca [Lipitor] 80 mg PO HS 05/24/16 Carvedilol 12.5 mg PO BID 05/24/16 Torsemide 80 mg PO DAILY 05/24/16 Ferrous Sulfate [Feosol] 1 tab PO DAILY 08/02/16 Albuterol Sulfate [Proair Respiclick] 90 mcg IH BID 11/13/16 Cholecalciferol (Vitamin D3) [Vitamin D3] 2,000 unit PO DAILY 11/13/16 Aspirin [ASA -] 81 mg PO DAILY #30 tab.chew 11/15/16 Glipizide 5 mg PO BID 04/19/17 Pregabalin [Lyrica -] 75 mg PO DAILY MDD 50 mg 04/19/17 Acetaminophen [Tylenol .Regular Strength -] 650 mg PO Q4H PRN tablet 04/27/17 Calcium Acetate [Phoslo -] 1,334 mg PO TIDCM capsule 04/27/17 Collagenase Clostridium Hist. [Santyl -] 1 applic TP DAILY #1 tube 04/27/17 Docusate Sodium [Colace -] 100 mg PO TID PRN #90 capsule 04/27/17 Mineral Oil/Petrolat,Wht/Water [Eucerin (Large Jar) -] 1 applic TP DAILY PRN jar 04/27/17 Polyethylene Glycol 3350 [Miralax 119 gm Btl -] 17 gm PO DAILY bottle 04/27/17 <Pao Randall - Last Filed: 04/27/17 15:19> - Home Medications Comprehensive Discharge Medication List: Ambulatory Orders Omeprazole [Prilosec (RX)] 20 mg PO DAILY 08/13/14 Atorvastatin Ca [Lipitor] 80 mg PO HS 05/24/16 Carvedilol 12.5 mg PO BID 05/24/16 Ferrous Sulfate [Feosol] 1 tab PO DAILY 08/02/16 Albuterol Sulfate [Proair Respiclick] 90 mcg IH BID 11/13/16 Cholecalciferol (Vitamin D3) [Vitamin D3] 2,000 unit PO DAILY 11/13/16 Aspirin [ASA -] 81 mg PO DAILY #30 tab.chew 11/15/16 Glipizide 5 mg PO BID 04/19/17 Pregabalin [Lyrica -] 75 mg PO DAILY MDD 50 mg 04/19/17 Acetaminophen [Tylenol .Regular Strength -] 650 mg PO Q4H PRN tablet 04/27/17 Calcium Acetate [Phoslo -] 1,334 mg PO TIDCM capsule 04/27/17 Collagenase Clostridium Hist. [Santyl -] 1 applic TP DAILY #1 tube 04/27/17 Docusate Sodium [Colace -] 100 mg PO TID PRN #90 capsule 04/27/17 Mineral Oil/Petrolat,Wht/Water [Eucerin (Large Jar) -] 1 applic TP DAILY PRN jar 04/27/17 Miscellaneous Medical Supply [Outpatient Order] 1 each ASDIR #1 misc Polyethylene Glycol 3350 [Miralax 119 gm Btl -] 17 gm PO DAILY bottle 04/27/17 Torsemide 80 mg PO DAILY #120 tablet 04/27/17 <Opal Pinedo - Last Filed: 04/29/17 16:07> Condition: Improved - Instructions Diet, Activity, Other Instructions: You were treated for osteomyelitis of the Left great toe, diabetic ulcer to the Left great toe, and necrotic ulcer to the Left 2nd toe. You received bedside ulcer debridment by Dr. Alcantara (Podiatry), and will follow-up with Dr. Alcantara at the [facility] next week. You were seen by Dr. Sheets ( Vascular Surgery), who assessed that no vascular intervention is needed at this time. Wound Care: - continue using Santyl everyday to your Left foot - wear a surgical shoe, partial weight bearing with the surgical shoe Changes to your Medications include: - You need IV antibiotics (Vancomycin 500mg at dialysis) over the next 32 days ( over the next 13 hemodialysis treatments) - medication will be coordinated by Dr. Win (Nephrology). A Vancomycin blood level can be checked at dialysis and the dose of Vancomycin can be adjusted if needed. Target trough level is [address] Farah (Infectious Disease). - Your Procardia (Nifedipine) was stopped - Colace (stool softener) was added and can be taken up to 3 times a day as needed - continue your other home medications as prescribed Continue eating a renal, diabetic diet. Increase physical activity as tolerated. Follow-ups: - with Dr. Win at hemodialysis - see Dr. Alcantara (Podiatry) in the [facility] on Monday - outpatient Physical Therapy (prescription provided) [phone] - schedule an appointment with your Primary Care Physician (Dr. De La Fuente) in 1 week Please return to the hospital immediately if you experience persistent or increased foot pain, chest pain, difficulty breathing, or for any medical emergency. Referrals: Balaji Alcantara MD [Staff Physician] - 05/02/17 Tashia Cadet MD [Primary Care Provider] - 1 Week Raj Sheets MD [Staff Physician] - Disposition: VNS/HOME HEALTH CARE This patient is new to me today: No Emergency Visit: Yes ED Registration Date: 04/18/17 Care time: The patient presented to the Emergency Department on the above date and was hospitalized for further evaluation of their emergent condition. Critical Care patient: No - Discharge Referral Referred to [facility] No <Pao Randall - Last Filed: 04/27/17 15:19>
[2017-04-27] MEDS ORDERED: VANCOMYCIN 1,000 MG in DEXTROSE 5%-WATER - 250 ML IVPB ONE (15:32)
--- NOTE | 2017-04-27 17:48 | PN ---
Progress Note, Physician History of Present Illness: awake, alert No c/o L foot pain No fever/ chills Bone scan c/w osteomyelitis great toe Wound c/s S. aureus - Current Medication List Current Medications: Active Medications Acetaminophen (Tylenol -) 650 mg PO Q4H PRN PRN Reason: PAIN Last Admin: 04/27/17 10:36 Dose: 650 mg Atorvastatin Calcium (Lipitor -) 80 mg PO HS [facility] Last Admin: 04/26/17 21:35 Dose: 80 mg Calcium Acetate (Phoslo -) 1,334 mg PO TIDCM [facility] Last Admin: 04/27/17 13:36 Dose: 1,334 mg Carvedilol (Coreg -) 12.5 mg PO BID [facility] Last Admin: 04/27/17 13:37 Dose: 12.5 mg Collagenase (Santyl -) 1 applic TP DAILY [facility] Last Admin: 04/27/17 10:41 Dose: Not Given Docusate Sodium (Colace -) 100 mg PO TID [facility] Last Admin: 04/27/17 13:36 Dose: 100 mg Insulin Aspart (Novolog Vial Sliding Scale -) 1 vial SQ ACHS [facility] PRN Reason: Protocol Last Admin: 04/27/17 17:05 Dose: 4 units Multi-Ingredient Lotion (Eucerin (Large Jar) -) 1 applic TP DAILY PRN PRN Reason: DRY SKIN Last Admin: 04/23/17 16:48 Dose: 1 applic Pantoprazole Sodium (Protonix -) 20 mg PO DAILY [facility] Last Admin: 04/27/17 13:37 Dose: 20 mg Polyethylene Glycol (Miralax (For Daily Use) -) 17 gm PO DAILY [facility] Last Admin: 04/27/17 10:41 Dose: Not Given Pregabalin (Lyrica -) 75 mg PO DAILY [facility] Last Admin: 04/27/17 13:37 Dose: 75 mg Torsemide (Demadex -) 80 mg PO DAILY [facility] Last Admin: 04/27/17 13:38 Dose: 80 mg - Objective Vital Signs: Vital Signs Temperature 98.0 F 04/27/17 14:34 Pulse Rate 79 04/27/17 14:34 Respiratory Rate 22 04/27/17 14:34 Blood Pressure 149/73 04/27/17 14:34 O2 Sat by Pulse Oximetry (%) 96 04/26/17 21:00 Constitutional: Yes: No Distress Eyes: Yes: Conjunctiva Clear Cardiovascular: Yes: Regular Rate and Rhythm, S1, S2 Respiratory: Yes: CTA Bilaterally Gastrointestinal: Yes: Normal Bowel Sounds, Soft Labs: CBC, BMP 04/26/17 08:10 04/26/17 08:10 INR, PTT INR 1.18 (0.82-1.09) H 04/19/17 07:35 Assessment/Plan Osteomyelitis great toe + necrotic ulcers 2nd toe ESRD Day #10 antibiotic therapy Substitute vancomycin 500mg at each HD for additional 30d Obtain vancomycin trough at dialysis. Maintain trough approx 15 Local wound care Follow up wound care center
--- NOTE | 2017-04-27 18:10 | PN ---
Progress Note, Physician History of Present Illness: Pt seen and examined at bedside. He is awake and alert. He denies shortness of breath. He tolerated HD. - Current Medication List Current Medications: Active Medications Acetaminophen (Tylenol -) 650 mg PO Q4H PRN PRN Reason: PAIN Last Admin: 04/27/17 10:36 Dose: 650 mg Atorvastatin Calcium (Lipitor -) 80 mg PO HS [facility] Last Admin: 04/26/17 21:35 Dose: 80 mg Calcium Acetate (Phoslo -) 1,334 mg PO TIDCM [facility] Last Admin: 04/27/17 17:58 Dose: 1,334 mg Carvedilol (Coreg -) 12.5 mg PO BID [facility] Last Admin: 04/27/17 13:37 Dose: 12.5 mg Collagenase (Santyl -) 1 applic TP DAILY [facility] Last Admin: 04/27/17 10:41 Dose: Not Given Docusate Sodium (Colace -) 100 mg PO TID [facility] Last Admin: 04/27/17 13:36 Dose: 100 mg Insulin Aspart (Novolog Vial Sliding Scale -) 1 vial SQ ACHS [facility] PRN Reason: Protocol Last Admin: 04/27/17 17:05 Dose: 4 units Multi-Ingredient Lotion (Eucerin (Large Jar) -) 1 applic TP DAILY PRN PRN Reason: DRY SKIN Last Admin: 04/23/17 16:48 Dose: 1 applic Pantoprazole Sodium (Protonix -) 20 mg PO DAILY [facility] Last Admin: 04/27/17 13:37 Dose: 20 mg Polyethylene Glycol (Miralax (For Daily Use) -) 17 gm PO DAILY [facility] Last Admin: 04/27/17 10:41 Dose: Not Given Pregabalin (Lyrica -) 75 mg PO DAILY [facility] Last Admin: 04/27/17 13:37 Dose: 75 mg Torsemide (Demadex -) 80 mg PO DAILY [facility] Last Admin: 04/27/17 13:38 Dose: 80 mg - Objective Vital Signs: Vital Signs Temperature 98.0 F 04/27/17 14:34 Pulse Rate 79 04/27/17 14:34 Respiratory Rate 22 04/27/17 14:34 Blood Pressure 149/73 04/27/17 14:34 O2 Sat by Pulse Oximetry (%) 96 04/27/17 12:00 Constitutional: Yes: Calm Eyes: Yes: Conjunctiva Clear HENT: Yes: Atraumatic Cardiovascular: Yes: S1, S2 Respiratory: Yes: CTA Bilaterally Gastrointestinal: Yes: Soft Genitourinary: Yes: WNL Musculoskeletal: Yes: WNL Edema: Yes Edema: LLE: 1+, RLE: 1+ Integumentary: Yes: Venous Stasis Changes Wound/Incision: Yes: Open to air Psychiatric: Yes: Oriented Labs: CBC, BMP 04/26/17 08:10 04/26/17 08:10 INR, PTT INR 1.18 (0.82-1.09) H 04/19/17 07:35 Problem List - Problems (1) ESRD (end stage renal disease) Code(s): N18.6 - END STAGE RENAL DISEASE (2) PVD (peripheral vascular disease) Code(s): I73.9 - PERIPHERAL VASCULAR DISEASE, UNSPECIFIED (3) Anemia Code(s): D64.9 - ANEMIA, UNSPECIFIED Qualifiers: Anemia type: other cause Other causes of anemia: other cause, not classified Qualified Code(s): D64.89 - Other specified anemias (4) DM type 2, uncontrolled, with renal complications Code(s): E11.29 - TYPE 2 DIABETES MELLITUS W OTH DIABETIC KIDNEY COMPLICATION; E11.65 - TYPE 2 DIABETES MELLITUS WITH HYPERGLYCEMIA Qualifiers: Diabetes mellitus complication detail: with chronic kidney disease Assessment/Plan Current Medications Generic Name Dose Route Start Last Admin Trade Name Freq PRN Reason Stop Dose Admin Acetaminophen 650 mg 04/27/17 10:15 04/27/17 10:36 Tylenol - PO 650 mg Q4H PRN Administration PAIN Atorvastatin Calcium 80 mg 04/20/17 22:00 04/26/17 21:35 Lipitor - PO 80 mg HS [facility] Administration Calcium Acetate 1,334 mg 04/21/17 17:30 04/27/17 17:58 Phoslo - PO 1,334 mg TIDCM [facility] Administration Carvedilol 12.5 mg 04/20/17 10:00 04/27/17 13:37 Coreg - PO 12.5 mg BID [facility] Administration Collagenase 1 applic 04/21/17 10:00 04/27/17 10:41 Santyl - TP Not Given DAILY [facility] Docusate Sodium 100 mg 04/22/17 14:00 04/27/17 13:36 Colace - PO 100 mg TID [facility] Administration Insulin Aspart 1 vial 04/19/17 07:00 04/27/17 17:05 Novolog Vial Sliding Scale - SQ 4 units ACHS [facility] Administration Protocol Multi-Ingredient Lotion 1 applic 04/20/17 14:43 04/23/17 16:48 Eucerin (Large Jar) - TP 1 applic DAILY PRN Administration DRY SKIN Pantoprazole Sodium 20 mg 04/20/17 17:00 04/27/17 13:37 Protonix - PO 20 mg DAILY [facility] Administration Polyethylene Glycol 17 gm 04/22/17 10:00 04/27/17 10:41 Miralax (For Daily Use) - PO Not Given DAILY [facility] Pregabalin 75 mg 04/21/17 10:00 04/27/17 13:37 Lyrica - PO 75 mg DAILY [facility] Administration Torsemide 80 mg 04/21/17 10:00 04/27/17 13:38 Demadex - PO 80 mg DAILY [facility] Administration Impression 1. ESRD 2. anemia 3. HTN 4. morbid obesity 5. CVA 6. hyperlipidemia 7. proteinuria - nephrotic 8. PVD Plan - pt tolerated HD today - ID input appreciated, uteo for 30 more days, called HD and placed orders - cont current meds - cont wound care - podiatry follow up - cont torsemide - renal diet Dr Win
[2017-04-27 18:11] VITALS: BP 131/68; PULSE 67; TEMP 98.4
== END 2017-04-27 18:47 | disposition home health service (06) | DRG 623 ==
LOC: JER 13:29 → JERBED 20:02 → J5S 04-19 03:35
PROVIDERS: ADMIT Internal Medicine; ATTEND Internal Medicine
PROC: 5A1D70Z Performance of Urinary Filtration, Intermittent, Less than 6 Hours Per Day (ICD-10-PCS; 2017-04-20)
PROC: 5A1D70Z Performance of Urinary Filtration, Intermittent, Less than 6 Hours Per Day (ICD-10-PCS; 2017-04-22)
PROC: 5A1D70Z Performance of Urinary Filtration, Intermittent, Less than 6 Hours Per Day (ICD-10-PCS; 2017-04-25)
PROC: 0JBR0ZZ Excision of Left Foot Subcutaneous Tissue and Fascia, Open Approach (ICD-10-PCS; principal; 2017-04-26)
PROC: 5A1D70Z Performance of Urinary Filtration, Intermittent, Less than 6 Hours Per Day (ICD-10-PCS; 2017-04-27)
DX: E11.621 Type 2 diabetes mellitus with foot ulcer (principal); L97.528 Non-pressure chronic ulcer of other part of left foot with other specified severity; I12.0 Hypertensive chronic kidney disease with stage 5 chronic kidney disease or end stage renal disease; Z68.41 Body mass index [BMI] 40.0-44.9, adult; L03.116 Cellulitis of left lower limb; I69.354 Hemiplegia and hemiparesis following cerebral infarction affecting left non-dominant side; M86.672 Other chronic osteomyelitis, left ankle and foot; E11.51 Type 2 diabetes mellitus with diabetic peripheral angiopathy without gangrene; N18.6 End stage renal disease; L08.89 Other specified local infections of the skin and subcutaneous tissue; G47.30 Sleep apnea, unspecified; N28.1 Cyst of kidney, acquired; K21.9 Gastro-esophageal reflux disease without esophagitis; E11.65 Type 2 diabetes mellitus with hyperglycemia; E11.22 Type 2 diabetes mellitus with diabetic chronic kidney disease; J45.909 Unspecified asthma, uncomplicated; D64.89 Other specified anemias; E78.00 Pure hypercholesterolemia, unspecified; E66.01 Morbid (severe) obesity due to excess calories; E11.40 Type 2 diabetes mellitus with diabetic neuropathy, unspecified; E83.39 Other disorders of phosphorus metabolism; Z98.84 Bariatric surgery status
CPT/HCPCS: 36415; 71045-TC-FY; 73630-TC-LT; 75635-TC; 78306-TC; 80048; 80053; 82962; 83735; 84100; 85025; 85027; 85610; 85651; 85730; 86140; 86704; 86706; 86708; 86803; 86850; 86900; 86901; 87040; 87070; 87077; 87186; 87205; 87340; 93005; 93010; 93923; 93925-TC; 97116-GP; 97161-GP; 99283-25; A9503; G0463-25; G0480; J0885; J1644

== ENCOUNTER 2017-05-31 06:01 | Inpatient (IN) | payer OTHER ==
--- NOTE | 2017-05-31 06:23 | PDOC ---
History of Present Illness - General History Source: Patient Exam Limitations: No Limitations - History of Present Illness Initial Comments: 05/31/17 06:26 The patient is a 56-year-old male, with a significant past medical history of ESRD, DM, PVD, osteomyelitis, who was sent in by Dr. Erick Frederick (Vascular Surgery) for an angiogram to his left leg secondary to gangrenous foot and toe. The patient follows up with Dr. Win for dialysis. The patient passes approximately 500 CCs of urine in total a day. He denies any pain or fever. No pain. The patient is a borderline diabetic and monitors his blood sugar in the hospital; diet-controlled. Patient was dialyzed yesterday and is due tomorrow. The patient denies any fever, chills, nausea, vomiting, diarrhea, or abdominal pain. Denies any chest pain or shortness of breath. PCP: Dr. Hai Davis <Melinda Corona - Last Filed: 05/31/17 06:26> <Benja Jimenez - Last Filed: 05/31/17 10:21> - General History Source: Patient <Rodolfo Jaquez - Last Filed: 05/31/17 19:37> - General Chief Complaint: Wound Stated Complaint: PCP SENT Time Seen by Provider: 05/31/17 06:16 Past History <Melinda Corona - Last Filed: 05/31/17 06:26> <Benja Jimenez - Last Filed: 05/31/17 10:21> - Past Medical History Anemia: Yes Asthma: Yes Cancer: No Cardiac Disorders: No ([place]) CVA: Yes COPD: Yes CHF: No Dementia: No Diabetes: Yes Dialysis: Yes (tu,thr,sat lt arm fistula) GI Disorders: No Disorders: No HTN: Yes Hypercholesterolemia: Yes Liver Disease: No Seizures: No Thyroid Disease: No - Surgical History Abdominal Surgery: Yes (gastric bypass 05/05/14) Appendectomy: No Cardiac Surgery: No Cholecystectomy: No Lung Surgery: No Neurologic Surgery: No Orthopedic Surgery: No - Immunization History Immunization Up to Date: Yes - Suicide/Smoking/Psychosocial Hx Smoking Status: No Smoking History: Never smoked Have you smoked in the past 12 months: No Number of Cigarettes Smoked Daily: 0 Information on smoking cessation initiated: No Hx Alcohol Use: No Drug/Substance Use Hx: No Substance Use Type: None Hx Substance Use Treatment: No <Rodolfo Jaquez - Last Filed: 05/31/17 19:37> - Past Medical History Allergies/Adverse Reactions: Allergies Allergy/AdvReac Type Severity Reaction Status Date / Time fish derived Allergy Severe Hives Verified 05/31/17 06:07 Shellfish Allergy Severe Verified 05/31/17 06:07 sulfamethoxazole Allergy Severe Swelling Verified 05/31/17 06:07 [From Bactrim DS] trimethoprim Allergy Severe Swelling Verified 05/31/17 06:07 [From Bactrim DS] Home Medications: Ambulatory Orders Omeprazole [Prilosec (RX)] 20 mg PO DAILY 08/13/14 Atorvastatin Ca [Lipitor] 80 mg PO HS 05/24/16 Carvedilol 12.5 mg PO BID 05/24/16 Ferrous Sulfate [Feosol] 1 tab PO DAILY 08/02/16 Albuterol Sulfate [Proair Respiclick] 90 mcg IH BID 11/13/16 Cholecalciferol (Vitamin D3) [Vitamin D3] 2,000 unit PO DAILY 11/13/16 Aspirin [ASA -] 81 mg PO DAILY #30 tab.chew 11/15/16 Glipizide 5 mg PO BID 04/19/17 Pregabalin [Lyrica -] 75 mg PO DAILY MDD 50 mg 04/19/17 Acetaminophen [Tylenol .Regular Strength -] 650 mg PO Q4H PRN tablet 04/27/17 Calcium Acetate [Phoslo -] 1,334 mg PO TIDCM capsule 04/27/17 Collagenase Clostridium Hist. [Santyl -] 1 applic TP DAILY #1 tube 04/27/17 Docusate Sodium [Colace -] 100 mg PO TID PRN #90 capsule 04/27/17 Mineral Oil/Petrolat,Wht/Water [Eucerin (Large Jar) -] 1 applic TP DAILY PRN jar 04/27/17 Miscellaneous Medical Supply [Outpatient Order] 1 each ASDIR #1 misc Polyethylene Glycol 3350 [Miralax 119 gm Btl -] 17 gm PO DAILY bottle 04/27/17 Torsemide 80 mg PO DAILY #120 tablet 04/27/17 Review of Systems - Review of Systems Able to Perform ROS?: Yes Comments:: 05/31/17 06:26 CONSTITUTIONAL: Absent: fever, no chills, no fatigue EYES: Absent: visual changes ENT: Absent: ear pain, no sore throat CARDIOVASCULAR: Absent: chest pain, no palpitations RESPIRATORY: Absent: cough, no SOB GI: Absent: abdominal pain, no nausea, no vomiting, no constipation, no diarrhea GENITOURINARY: Absent: dysuria, no frequency, no hematuria MUSKULOSKELETAL: Present: Pain to left foot and toe. Absent: back pain, no arthralgia SKIN: Present: Gangrenous left foot and toe. Absent: pallor NEURO: Absent: headache <Melinda Corona - Last Filed: 05/31/17 06:26> *Physical Exam - Vital Signs Last Vital Signs Temp Pulse Resp BP Pulse Ox 98.7 F 86 18 113/68 100 05/31/17 06:07 05/31/17 06:07 05/31/17 06:07 05/31/17 06:07 05/31/17 06:07 - Physical Exam Comments: 05/31/17 06:29 GENERAL: (+)Morbidly obese. Awake and alert. No acute distress. HEENT: Normocephalic, atraumatic. PERRLA, EOMI. No conjunctival pallor. Sclera are non- icteric. Moist mucous membranes. Oropharynx is clear. NECK: Supple. Full ROM. No JVD. Carotid pulses 2+ and symmetric, without bruits. No thyromegaly. No lymphadenopathy. CARDIOVASCULAR: Regular rate and rhythm. No murmurs, rubs, or gallops. Distal pulses are 2+ and symmetric. PULMONARY: No evidence of respiratory distress. Lungs clear to auscultation bilaterally. No wheezing, rales or rhonchi. ABDOMINAL: Soft. Non-tender. Non-distended. No rebound or guarding. No organomegaly. Normoactive bowel sounds. MUSCULOSKELETAL Normal range of motion at all joints. No bony deformities or tenderness. No CVA tenderness. EXTREMITIES: (+)Left leg is a little cooler than the right; Left foot is a little painful and at this moment and the patient does not want to take off his sneaker. No cyanosis. No clubbing. No edema. No calf tenderness. SKIN: Normal capillary refill. No jaundice. NEUROLOGICAL: Alert, awake, appropriate. PSYCHIATRIC: Cooperative. Good eye contact. Appropriate mood and affect. <Melinda Corona - Last Filed: 05/31/17 06:26> - Vital Signs Last Vital Signs Temp Pulse Resp BP Pulse Ox 98.7 F 86 18 113/68 100 05/31/17 06:07 05/31/17 06:07 05/31/17 06:07 05/31/17 06:07 05/31/17 06:07 <Benja Jimenez - Last Filed: 05/31/17 10:21> - Vital Signs Last Vital Signs Temp Pulse Resp BP Pulse Ox 98.7 F 86 18 113/68 100 05/31/17 06:07 05/31/17 06:07 05/31/17 06:07 05/31/17 06:07 05/31/17 06:07 <Rodolfo Jaquez - Last Filed: 05/31/17 19:37> ED Treatment Course - LABORATORY CBC & Chemistry Diagram: 05/31/17 06:30 05/31/17 06:30 - ADDITIONAL ORDERS Additional order review: Laboratory Results 05/31/17 05/31/17 05/31/17 06:30 06:30 06:30 PT with INR 12.70 H INR 1.12 Sodium 137 Potassium 4.0 Chloride 102 Carbon Dioxide 26 Anion Gap 9 BUN 41 H Creatinine 7.1 H Creat Clearance w eGFR 8.05 Random Glucose 157 H Calcium 8.2 L Total Bilirubin 0.3 D AST 18 D ALT 14 Alkaline Phosphatase 61 D B-Natriuretic Peptide 3707.98 H Total Protein 7.6 D Albumin 3.4 D Blood Type A POSITIVE Antibody Screen Negative 05/31/17 06:30 RBC 3.87 L MCV 94.1 MCHC 32.9 RDW 15.3 MPV 9.8 Neutrophils % 58.6 Lymphocytes % 21.1 Monocytes % 8.5 Eosinophils % 8.7 H Basophils % 3.1 H <Benja Jimenez - Last Filed: 05/31/17 10:21> - LABORATORY CBC & Chemistry Diagram: 05/31/17 06:30 05/31/17 06:30 <Rodolfo Jaquez - Last Filed: 05/31/17 19:37> Medical Decision Making - Medical Decision Making 05/31/17 19:37 Dr. Jaquez: The scribe's documentation has been prepared under my direction and personally reviewed by me in its entirery. I confirm that the note above accurately reflects all work, treatment, procedures, and medical decision making performed by me. <Rodolfo Jaquez - Last Filed: 05/31/17 19:37> *DC/Admit/Observation/Transfer - Attestations Scribe Attestion: 05/31/17 06:31 Documentation prepared by Melinda Corona, acting as medical office professional instructor for Rodolfo Jaquez MD. <Melinda Corona - Last Filed: 05/31/17 06:26> - Discharge Dispostion Admit: Yes <Benja Jimenez - Last Filed: 05/31/17 10:21> <Rodolfo Jaquez - Last Filed: 05/31/17 19:37> Diagnosis at time of Disposition: ESRD (end stage renal disease), Gangrene of toe of left foot, Peripheral vascular disease - Discharge Dispostion Condition at time of disposition: Fair
[2017-05-31 07:00] LABS: BASO % 3.1 % (0-2.0); EOS % 8.7 % (0-4.5); HEMATOCRIT 36.4 % (35.4-49); LYMPH % 21.1 % (8-40); MCH 30.9 pg (25.7-33.7); MCHC 32.9 g/dl (32.0-35.9); MEAN CELL VOLUME 94.1 fl (80-96); MEAN PLT VOLUME 9.8 fl (7.5-11.1); MONO % 8.5 % (3.8-10.2); NEUT % 58.6 % (42.8-82.8); PLATELET COUNT 228 K/MM3 (134-434); RBC 3.87 M/mm3 (4.00-5.60); RDW 15.3 % (11.9-15.9); WHITE BLOOD COUNT 6.3 K/mm3 (4.0-10.0)
[2017-05-31 07:10] LABS: INR 1.12 (0.82-1.09); PROTHROMBIN TIME (PATIENT) 12.7 SEC (9.98-11.88)
[2017-05-31 07:15] LABS: ALBUMIN 3.4 g/dl (3.4-5.0); ALK PHOS 61 U/L (45-117); ANION GAP 9 (8-16); BILIRUBIN,TOTAL 0.3 mg/dL (0.2-1.0); BLOOD UREA NITROGEN 41 mg/dL (7-18); CALCIUM 8.2 mg/dL (8.5-10.1); CHLORIDE 102 mmol/L (98-107); CO2 26 mmol/L (21-32); CREATININE 7.1 mg/dL (0.7-1.3); GLUCOSE,RANDOM 157 mg/dL (74-106); SGOT/AST 18 U/L (15-37); SGPT/ALT 14 U/L (12-78); SODIUM 137 mmol/L (136-145); TOT PROT 7.6 g/dl (6.4-8.2)
[2017-05-31 07:16] LABS: N-TERMINAL BNP 3707.98 pg/ml (5-125)
--- NOTE | 2017-05-31 10:52 | EKG ---
Test Reason : Blood Pressure : / mmHG Vent. Rate : 084 BPM Atrial Rate : 084 BPM P-R Int : 160 ms QRS Dur : 116 ms QT Int : 386 ms P-R-T Axes : 065 -45 060 degrees QTc Int : 456 ms POOR DATA QUALITY, INTERPRETATION MAY BE ADVERSELY AFFECTED SINUS RHYTHM WITH PREMATURE ATRIAL COMPLEXES LEFT AXIS DEVIATION CANNOT RULE OUT ANTERIOR INFARCT , AGE UNDETERMINED ABNORMAL ECG WHEN COMPARED WITH ECG OF 18-APR-2017 18:28, NO SIGNIFICANT CHANGE WAS FOUND Confirmed by ASHLEY UNGER, RAGHAVENDRA ([id number]) on 05/31/2017 10:52:13 AM Referred By: Confirmed By:RAGHAVENDRA RAMIREZ MD
--- NOTE | 2017-05-31 11:35 | PN ---
Teaching Attending Note Name of Resident: Jeremy Frederick ATTENDING PHYSICIAN STATEMENT I saw and evaluated the patient. I reviewed the resident's note and discussed the case with the resident. I agree with the resident's findings and plan as documented. SUBJECTIVE: This is a 56 year old man with a history of ESRD, type 2 DM, HTN, hyperlipidemia, morbid obesity, gastric bypass, osteomyelitis, PAD, CVA who comes to the ED at the advice of Dr. Frederick for necrotic left 2nd toe. He says it started about 2 months ago with a small black spot and has worsened. He has developed an ulcer overlying the left 2nd PIP joint which started draining 3 days ago. He denies pain in the left foot/toes, fever, chills. OBJECTIVE: Vital Signs Period Temp Pulse Resp BP Sys/Leon Pulse Ox Last 24 Hr 98.7 F 80-86 18-18 113-119/68-70 99-100 HEART: S1S2, RRR LUNGS: Clear ABDOMEN: Obese, soft, non-tender, non-distended, normal BS EXTREMITIES: 1+ edema with chronic changes. Left second toe is necrotic from tip to PIP joint with ulcer overlying the PIP joint Laboratory Tests 05/31/17 05/31/17 05/31/17 06:30 06:30 06:30 WBC 6.3 RBC 3.87 L Hgb 12.0 D Hct 36.4 MCV 94.1 MCH 30.9 MCHC 32.9 RDW 15.3 Plt Count 228 MPV 9.8 Neutrophils % 58.6 Lymphocytes % 21.1 Monocytes % 8.5 Eosinophils % 8.7 H Basophils % 3.1 H PT with INR 12.70 H INR 1.12 Sodium 137 Potassium 4.0 Chloride 102 Carbon Dioxide 26 Anion Gap 9 BUN 41 H Creatinine 7.1 H Creat Clearance w eGFR 8.05 Random Glucose 157 H Calcium 8.2 L Total Bilirubin 0.3 D AST 18 D ALT 14 Alkaline Phosphatase 61 D B-Natriuretic Peptide 3707.98 H Total Protein 7.6 D Albumin 3.4 D Blood Type Antibody Screen 05/31/17 06:30 WBC RBC Hgb Hct MCV MCH MCHC RDW Plt Count MPV Neutrophils % Lymphocytes % Monocytes % Eosinophils % Basophils % PT with INR INR Sodium Potassium Chloride Carbon Dioxide Anion Gap BUN Creatinine Creat Clearance w eGFR Random Glucose Calcium Total Bilirubin AST ALT Alkaline Phosphatase B-Natriuretic Peptide Total Protein Albumin Blood Type A POSITIVE Antibody Screen Negative Home Medications Medication Instructions Recorded Omeprazole [Prilosec (RX)] 20 mg PO DAILY 08/13/14 Atorvastatin Ca [Lipitor] 80 mg PO HS 05/24/16 Carvedilol 12.5 mg PO BID 05/24/16 Ferrous Sulfate [Feosol] 1 tab PO DAILY 08/02/16 Albuterol Sulfate [Proair 90 mcg IH BID 11/13/16 Respiclick] Cholecalciferol (Vitamin D3) 2,000 unit PO DAILY 11/13/16 [Vitamin D3] Aspirin [ASA -] 81 mg PO DAILY #30 tab.chew 11/15/16 Glipizide 5 mg PO BID 04/19/17 Pregabalin [Lyrica -] 75 mg PO DAILY MDD 50 mg 04/19/17 Acetaminophen [Tylenol .Regular 650 mg PO Q4H PRN tablet 04/27/17 Strength -] Calcium Acetate [Phoslo -] 1,334 mg PO TIDCM capsule 04/27/17 Collagenase Clostridium Hist. 1 applic TP DAILY #1 tube 04/27/17 [Santyl -] Docusate Sodium [Colace -] 100 mg PO TID PRN #90 capsule 04/27/17 Mineral Oil/Petrolat,Wht/Water 1 applic TP DAILY PRN jar 04/27/17 [Eucerin (Large Jar) -] Miscellaneous Medical Supply 1 each ASDIR #1 misc 04/27/17 [Outpatient Order] Polyethylene Glycol 3350 [Miralax 17 gm PO DAILY bottle 04/27/17 119 gm Btl -] Torsemide 80 mg PO DAILY #120 tablet 04/27/17 ASSESSMENT AND PLAN: This is a 56 year old man with a history of ESRD, anemia, type 2 DM, diabetic peripheral neuropathy, HTN, hyperlipidemia, morbid obesity, gastric bypass, osteomyelitis, PAD, CVA who presented to the ED with a necrotic left 2nd toe. 1. PAD with ulcer and gangrene of left 2nd toe - Plan for angiogram tomorrow 2. ESRD - Continue HD as per nephrology 3. HTN - Continue Coreg, Torsemide 4. Hyperlipidemia - Continue Lipitor 5. Type 2 DM with peripheral neuropathy - Hold glipizide - Fingersticks with Novolog sliding scale - Continue Lyrica 6. History of CVA - Continue aspirin 7. Morbid obesity, history of gastric bypass
--- NOTE | 2017-05-31 11:40 | HP ---
CHIEF COMPLAINT: Sent in by vascular surgery/wound care PCP: Dr. Hai Davis HISTORY OF PRESENT ILLNESS: 56 y/o M w/PMH of ESRD (on HD TTS), DM, PVD, OM, CVAx2 (w/LLE residual weakness ) presents to the ER after being sent in by Dr. Erick Frederick for further evaluation of left second toe. Pt was seen by Dr. Frederick on Monday and was told to come into ER today for L 2nd toe necrosis and ischemia. Pt noticed a black spot on his L 2nd toe approx 2 months ago and has progressively worsened into its current state (black area now spread approximately 1 inch down toe) and over the last 2-3 days pt has noted yellow drainage at PIP joint of 2nd L toe. Pt has no pain at toe. He was recently admitted to [facility] for 1st toe ulcer on L foot from 04/18/17 to 04/27/17 and treated with ceftriaxone and is now healing well. He reports decreased sensation in his feet and is unable to feel light touch or sharp objects. He denies N/V/F/C, recent travel, sick contacts, CP, SOB , abd pain, dysuria, change in bowel habits. ER course was notable for: (1) CXR, EKG (2) (3) Recent Travel: denies PAST MEDICAL HISTORY:ESRD (on HD TTS), DM, PVD, OM, CVAx2 (w/LLE residual weakness) PAST SURGICAL HISTORY: LUE fistula Social History: Smoking:denies Alcohol:denies Drugs: denies Family History: n-c Allergies fish derived Allergy (Severe, Verified 05/31/17 06:07) Hives Shellfish Allergy (Severe, Verified 05/31/17 06:07) throat swelling sulfamethoxazole [From Bactrim DS] Allergy (Severe, Verified 05/31/17 06:07) Swelling trimethoprim [From Bactrim DS] Allergy (Severe, Verified 05/31/17 06:07) Swelling HOME MEDICATIONS: Home Medications Medication Instructions Recorded Omeprazole [Prilosec (RX)] 20 mg PO DAILY 08/13/14 Atorvastatin Ca [Lipitor] 80 mg PO HS 05/24/16 Carvedilol 12.5 mg PO BID 05/24/16 Ferrous Sulfate [Feosol] 1 tab PO DAILY 08/02/16 Albuterol Sulfate [Proair 90 mcg IH BID 11/13/16 Respiclick] Cholecalciferol (Vitamin D3) 2,000 unit PO DAILY 11/13/16 [Vitamin D3] Aspirin [ASA -] 81 mg PO DAILY #30 tab.chew 11/15/16 Glipizide 5 mg PO BID 04/19/17 Pregabalin [Lyrica -] 75 mg PO DAILY MDD 50 mg 04/19/17 Acetaminophen [Tylenol .Regular 650 mg PO Q4H PRN tablet 04/27/17 Strength -] Calcium Acetate [Phoslo -] 1,334 mg PO TIDCM capsule 04/27/17 Collagenase Clostridium Hist. 1 applic TP DAILY #1 tube 04/27/17 [Santyl -] Docusate Sodium [Colace -] 100 mg PO TID PRN #90 capsule 04/27/17 Mineral Oil/Petrolat,Wht/Water 1 applic TP DAILY PRN jar 04/27/17 [Eucerin (Large Jar) -] Miscellaneous Medical Supply 1 each ASDIR #1 misc 04/27/17 [Outpatient Order] Polyethylene Glycol 3350 [Miralax 17 gm PO DAILY bottle 04/27/17 119 gm Btl -] Torsemide 80 mg PO DAILY #120 tablet 04/27/17 REVIEW OF SYSTEMS CONSTITUTIONAL: Absent: fever, chills CARDIOVASCULAR: Absent: chest pain RESPIRATORY: Absent: shortness of breath GASTROINTESTINAL: Absent: abdominal pain, nausea, vomiting, constipation, hematochezia GENITOURINARY: Absent: dysuria SKIN: +blackening of 2nd left toe PHYSICAL EXAMINATION Vital Signs - 24 hr 05/31/17 06:07 Temperature 98.7 F Pulse Rate 86 Respiratory 18 Rate Blood Pressure 113/68 O2 Sat by Pulse 100 Oximetry (%) GENERAL: Awake, alert, and fully oriented, in no acute distress. EYES: extraocular movements intact, sclera anicteric, conjunctiva clear. EARS, NOSE, THROAT: Ears normal, nares patent NECK: Normal range of motion, supple LUNGS: Breath sounds equal, clear to auscultation bilaterally. No wheezes, and no crackles. No accessory muscle use. HEART: Regular rate and rhythm, normal S1 and S2 ABDOMEN: Soft, obese, nontender, not distended, normoactive bowel sounds MUSCULOSKELETAL: No CVA tenderness. UPPER EXTREMITIES: 2+ pulses, warm, well-perfused. No peripheral edema. LOWER EXTREMITIES: L 2nd toe with necrosis up to PIP with ulcer at PIP with yellow drainage. No pain with palpation. Distal part of 2nd toe cold to touch) NEUROLOGICAL: Normal speech. Gait not observed. PSYCHIATRIC: Cooperative. Good eye contact. Appropriate mood and affect. SKIN: Warm, dry, as noted in LE exam above. Laboratory Results - last 24 hr 05/31/17 05/31/17 05/31/17 06:30 06:30 06:30 WBC 6.3 RBC 3.87 L Hgb 12.0 D Hct 36.4 MCV 94.1 MCH 30.9 MCHC 32.9 RDW 15.3 Plt Count 228 MPV 9.8 Neutrophils % 58.6 Lymphocytes % 21.1 Monocytes % 8.5 Eosinophils % 8.7 H Basophils % 3.1 H PT with INR 12.70 H INR 1.12 Sodium 137 Potassium 4.0 Chloride 102 Carbon Dioxide 26 Anion Gap 9 BUN 41 H Creatinine 7.1 H Creat Clearance w eGFR 8.05 Random Glucose 157 H Calcium 8.2 L Total Bilirubin 0.3 D AST 18 D ALT 14 Alkaline Phosphatase 61 D B-Natriuretic Peptide 3707.98 H Total Protein 7.6 D Albumin 3.4 D Blood Type Antibody Screen 05/31/17 06:30 WBC RBC Hgb Hct MCV MCH MCHC RDW Plt Count MPV Neutrophils % Lymphocytes % Monocytes % Eosinophils % Basophils % PT with INR INR Sodium Potassium Chloride Carbon Dioxide Anion Gap BUN Creatinine Creat Clearance w eGFR Random Glucose Calcium Total Bilirubin AST ALT Alkaline Phosphatase B-Natriuretic Peptide Total Protein Albumin Blood Type A POSITIVE Antibody Screen Negative Imaging CXR: No acute pathology EKG: Sinus rhythm w/PACs. LAD. No sig change compared to 04/18/17 EKG. Rate: 84 bpm. QTc: 456 Active Medications Atorvastatin Calcium (Lipitor -) 80 mg PO HS [place] Carvedilol (Coreg -) 12.5 mg PO BID [place] Heparin Sodium (Porcine) (Heparin -) 5,000 unit SQ Q8H-IV [place] Stop: 06/01/17 02:01 Insulin Aspart (Novolog Vial Sliding Scale -) 0 vial SQ ACHS [place] PRN Reason: Protocol Pregabalin (Lyrica -) 75 mg PO DAILY [place] ASSESSMENT/PLAN: 56 y/o M w/PMH of ESRD (on HD TTS), DM, PVD, OM, CVAx2 (w/LLE residual weakness ) presents to the ER after being sent in by Dr. Erick Frederick for further evaluation of left second toe necrosis/ischemia. -2nd toe of L foot necrosis/ischemia -Plan for angiogram tomorrow with Dr. Jose E Frederick -Vascular consulted -no abx at this time -NPO at midnight -Wound care to area -ESRD -HD for today with angiogram tomorrow -on TTS schedule for HD otherwise -torsemide 80 mg po qd -Dr. Win consulted, nephrology -HTN -carvedilol 12.5 mg bid -DM -ISS, BGMs ACHS -LE neuropathy -lyrica 75 mg po qd -HLD -atorvastatin 80 mg po qhs -DVT ppx -Heparin 5000 units sq q8h, will hold before angiogram, restart after if needed -FEN -No fluids for now -Monitor lytes -Diabetic, renal diet. NPO after midnight -Dispo: m/s admit Visit type - Emergency Visit Emergency Visit: Yes ED Registration Date: 05/31/17 Care time: The patient presented to the Emergency Department on the above date and was hospitalized for further evaluation of their emergent condition. - New Patient This patient is new to me today: Yes Date on this admission: 05/31/17 - Critical Care Critical Care patient: No Hospitalist Screening - Colonoscopy Questionnaire Colonoscopy Questionnaire: Colonoscopy Questionnaire - Patient: 50 - 75 years old and never had a screening colonoscopy: Unknown History of colon or rectal polyps, or CA: Unknown History of IBD, Crohn's disease or UC: Unknown History of abdominal radiation therapy as a child: Unknown - Relative: 1 with colon or rectal CA, or polyps at age 60 or younger: Unknown Colon or rectal CA diagnosed at age 45 or younger: Unknown Multiple relatives with colon or rectal CA: Unknown - Outcome: Screening Result: Negative Screen
[2017-05-31] MEDS ORDERED: SODIUM CHLORIDE 250 ML IV PRN (17:28)
--- NOTE | 2017-05-31 17:28 | CONSULT ---
Consult Consult Specialty:: Nephrology Reason for Consultation:: ESRD - History of Present Illness Chief Complaint: sent in for left leg angio History of Present Illness: Pt is a 56 year old male with pmhx of ESRD, DM, osteo, obesity, PVD, and DM who was sent in for angio of his left leg. He was found to have gengresous changes of his toes. He was last dialyzed yesterday. He is due for HD tomorrow. He denies shortness of breath or chest pain. He was on vanco as an outpt which he has completed. He denies fevers or chills. He is awake and alert. 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: CVA Cardio/Vascular: Yes: HTN, Hyperlipdemia Pulmonary: Yes: Sleep Apnea Gastrointestinal: Yes: GERD, Other (obesity) Renal/: Yes: Renal Failure, Renal Inusuff, Hemodialysis, Other Endocrine: Yes: Diabetes Mellitus - Past Surgical History Past Surgical History: Yes: AV Fistula/Graft Additional Surgical History: bariatric surgery - Alcohol/Substance Use Hx Alcohol Use: No - Smoking History Smoking history: Never smoked Have you smoked in the past 12 months: No Aproximately how many cigarettes per day: 0 - Social History ADL: Independent History of Recent Travel: No Home Medications - Allergies Allergies/Adverse Reactions: Allergies Allergy/AdvReac Type Severity Reaction Status Date / Time fish derived Allergy Severe Hives Verified 05/31/17 06:07 Shellfish Allergy Severe Verified 05/31/17 06:07 sulfamethoxazole Allergy Severe Swelling Verified 05/31/17 06:07 [From Bactrim DS] trimethoprim Allergy Severe Swelling Verified 05/31/17 06:07 [From Bactrim DS] - Home Medications Home Medications: Ambulatory Orders Omeprazole [Prilosec (RX)] 20 mg PO DAILY 08/13/14 Atorvastatin Ca [Lipitor] 80 mg PO HS 05/24/16 Carvedilol 12.5 mg PO BID 05/24/16 Ferrous Sulfate [Feosol] 1 tab PO DAILY 08/02/16 Albuterol Sulfate [Proair Respiclick] 90 mcg IH BID 11/13/16 Cholecalciferol (Vitamin D3) [Vitamin D3] 2,000 unit PO DAILY 11/13/16 Aspirin [ASA -] 81 mg PO DAILY #30 tab.chew 11/15/16 Glipizide 5 mg PO BID 04/19/17 Pregabalin [Lyrica -] 75 mg PO DAILY MDD 50 mg 04/19/17 Acetaminophen [Tylenol .Regular Strength -] 650 mg PO Q4H PRN tablet 04/27/17 Calcium Acetate [Phoslo -] 1,334 mg PO TIDCM capsule 04/27/17 Collagenase Clostridium Hist. [Santyl -] 1 applic TP DAILY #1 tube 04/27/17 Docusate Sodium [Colace -] 100 mg PO TID PRN #90 capsule 04/27/17 Mineral Oil/Petrolat,Wht/Water [Eucerin (Large Jar) -] 1 applic TP DAILY PRN jar 04/27/17 Miscellaneous Medical Supply [Outpatient Order] 1 each ASDIR #1 misc Polyethylene Glycol 3350 [Miralax 119 gm Btl -] 17 gm PO DAILY bottle 04/27/17 Torsemide 80 mg PO DAILY #120 tablet 04/27/17 Family Disease History - Family Disease History Family History: Denies Review of Systems - Review of Systems Constitutional: reports: No Symptoms Eyes: reports: No Symptoms HENT: reports: No Symptoms Neck: reports: No Symptoms Cardiovascular: reports: No Symptoms Respiratory: reports: No Symptoms Gastrointestinal: reports: No Symptoms Genitourinary: reports: No Symptoms Musculoskeletal: reports: Other (left leg pain) Neurological: reports: No Symptoms Endocrine: reports: No Symptoms Hematology/Lymphatic: reports: No Symptoms Psychiatric: reports: No Symptoms Physical Exam Vital Signs: Vital Signs Temperature 98.7 F 05/31/17 06:07 Pulse Rate 80 05/31/17 11:23 Respiratory Rate 18 05/31/17 11:23 Blood Pressure 119/70 05/31/17 11:23 O2 Sat by Pulse Oximetry (%) 99 05/31/17 11:23 Constitutional: Yes: Calm Eyes: Yes: Conjunctiva Clear HENT: Yes: Atraumatic Neck: Yes: Supple Cardiovascular: Yes: S1, S2 Respiratory: Yes: CTA Bilaterally Gastrointestinal: Yes: Soft, Abdomen, Obese Renal/: Yes: WNL Musculoskeletal: Yes: Other (left leg pain) Edema: Yes Neurological: Yes: Oriented Psychiatric: Yes: Oriented Labs: CBC, BMP 05/31/17 06:30 05/31/17 06:30 Laboratory Tests 05/31/17 05/31/17 06:30 06:30 WBC 6.3 Hgb 12.0 D Plt Count 228 Sodium 137 Potassium 4.0 Chloride 102 Carbon Dioxide 26 Anion Gap 9 BUN 41 H Creatinine 7.1 H Imaging - Results Chest X-ray: Report Reviewed Problem List - Problems (1) ESRD (end stage renal disease) Code(s): N18.6 - END STAGE RENAL DISEASE (2) Gangrene of toe of left foot Code(s): I96 - GANGRENE, NOT ELSEWHERE CLASSIFIED (3) PVD (peripheral vascular disease) Code(s): I73.9 - PERIPHERAL VASCULAR DISEASE, UNSPECIFIED (4) Anemia Code(s): D64.9 - ANEMIA, UNSPECIFIED Qualifiers: Anemia type: other cause Other causes of anemia: other cause, not classified Qualified Code(s): D64.89 - Other specified anemias (5) HTN (hypertension) Code(s): I10 - ESSENTIAL (PRIMARY) HYPERTENSION (6) Lymph edema Code(s): I89.0 - LYMPHEDEMA, NOT ELSEWHERE CLASSIFIED (7) Morbid obesity Code(s): E66.01 - MORBID (SEVERE) OBESITY DUE TO EXCESS CALORIES Assessment/Plan Current Medications Generic Name Dose Route Start Last Admin Trade Name Freq PRN Reason Stop Dose Admin Atorvastatin Calcium 80 mg 05/31/17 22:00 Lipitor - PO HS [facility] Carvedilol 12.5 mg 05/31/17 22:00 Coreg - PO BID [facility] Heparin Sodium (Porcine) 5,000 unit 05/31/17 18:00 Heparin - SQ 06/01/17 02:01 Q8H-IV [facility] Insulin Aspart 0 vial 05/31/17 16:30 Novolog Vial Sliding Scale - SQ ACHS [facility] Protocol Pregabalin 75 mg 06/01/17 10:00 Lyrica - PO DAILY [facility] Torsemide 80 mg 06/01/17 10:00 Demadex - PO DAILY [facility] Impression 1. ESRD 2. anemia 3. HTN 4. morbid obesity 5. CVA 6. hyperlipidemia 7. proteinuria - nephrotic 8. PVD 9. lower ext gangrene Plan - pt is going for angio tomorrow - will arrange for HD after angio - cont wound care - ID eval - resume home meds - hold torsemide for now, will restart in a few days - podiatry follow up - renal diet
[2017-05-31] MEDS ORDERED: HEMOQUE TEST 1 EACH EACH ONE (17:44)
[2017-05-31] MEDS ORDERED: HEPARIN NA (PORCINE) 5,000 UNITS/ML 1ML VIAL ONE (18:05)
[2017-05-31] MEDS ORDERED: INSULIN (NOVOLOG) ASPART 100 UNITS/ML 10ML VIAL ONE (18:06)
[2017-05-31] MEDS: HEPARIN NA (PORCINE) 5,000 UNITS/ML 1ML VIAL SQ SCH (18:14)
[2017-05-31] MEDS: INSULIN SLIDING SCALE (NOVOLOG) 1 VIAL SQ SCH ×2 (18:14→22:08)
[2017-05-31 20:19] VITALS: BMI 39.7
[2017-05-31] MEDS ORDERED: ATORVASTATIN CA 80 MG TABLET (FP) PO SCH (22:00)
[2017-05-31] MEDS ORDERED: CARVEDILOL 12.5 MG TABLET (FP) PO SCH (22:00)
[2017-06-01] MEDS: HEPARIN NA (PORCINE) 5,000 UNITS/ML 1ML VIAL SQ SCH (01:21)
[2017-06-01] MEDS: INSULIN SLIDING SCALE (NOVOLOG) 1 VIAL SQ SCH ×4 (06:45→21:21)
[2017-06-01 08:45] LABS: BASO % 3.5 % (0-2.0); EOS % 9.4 % (0-4.5); HEMATOCRIT 32.6 % (35.4-49); LYMPH % 22.3 % (8-40); MCH 31.6 pg (25.7-33.7); MCHC 33.6 g/dl (32.0-35.9); MEAN PLT VOLUME 9.9 fl (7.5-11.1); MONO % 9.8 % (3.8-10.2); PLATELET COUNT 193 K/MM3 (134-434); RBC 3.47 M/mm3 (4.00-5.60); RDW 15.4 % (11.9-15.9); WHITE BLOOD COUNT 5.5 K/mm3 (4.0-10.0)
[2017-06-01 09:09] LABS: ANION GAP 11 (8-16); BLOOD UREA NITROGEN 64 mg/dL (7-18); CALCIUM 8.4 mg/dL (8.5-10.1); CHLORIDE 100 mmol/L (98-107); CO2 24 mmol/L (21-32); GLUCOSE,RANDOM 89 mg/dL (74-106); MAGNESIUM 2.6 mg/dL (1.8-2.4); PHOSPHOROUS 8.6 mg/dL (2.5-4.9); POTASSIUM 4.3 mmol/L (3.5-5.1); SODIUM 135 mmol/L (136-145)
--- NOTE | 2017-06-01 09:15 | PN ---
Progress Note (short form) - Note Progress Note: Vascular Surgery Left foot ulcer. Recent US showed SFA stenosis. Will do angiogram today. Pt is npo Erick kay DO
[2017-06-01 09:33] LABS: CREATININE 8.9 mg/dL (0.7-1.3)
[2017-06-01] MEDS ORDERED: PREGABALIN 75 MG CAPSULE PO SCH (10:00)
[2017-06-01] MEDS ORDERED: TORSEMIDE 20 MG TABLET (FP) PO SCH (10:00)
[2017-06-01] MEDS ORDERED: LIDOCAINE HCL 1%, 10 MG/ML (20ML VIAL) ONE (10:54)
[2017-06-01] MEDS ORDERED: HEPARIN NA (PORCINE) 5,000 UNITS/ML 1ML VIAL ONE ×2 (10:54→12:22)
--- NOTE | 2017-06-01 11:05 | PN ---
<Maninder Peters - Last Filed: 06/01/17 16:18> Physical Exam: SUBJECTIVE: Patient seen and examined No acute events overnight. Patient awaiting angiogram this AM. Denies any complaints. OBJECTIVE: Vital Signs Period Temp Pulse Resp BP Sys/Leon Pulse Ox Last 24 Hr 97.5 F-99 F 67-100 18-20 106-125/66-77 98-99 GENERAL: Awake, alert, and fully oriented, in no acute distress. EYES: extraocular movements intact, sclera anicteric, conjunctiva clear. EARS, NOSE, THROAT: Ears normal, nares patent NECK: Normal range of motion, supple LUNGS: Breath sounds equal, clear to auscultation bilaterally. No wheezes, and no crackles. No accessory muscle use. HEART: Regular rate and rhythm, normal S1 and S2 ABDOMEN: Soft, obese, nontender, not distended, normoactive bowel sounds MUSCULOSKELETAL: No CVA tenderness. UPPER EXTREMITIES: 2+ pulses, warm, well-perfused. No peripheral edema. LOWER EXTREMITIES: Leg wrapped. 2+ peripheral edema. NEUROLOGICAL: Normal speech. Gait not observed. PSYCHIATRIC: Cooperative. Good eye contact. Appropriate mood and affect. SKIN: Warm, dry, Laboratory Results - last 24 hr 05/31/17 05/31/17 06/01/17 17:57 21:04 05:54 WBC RBC Hgb Hct MCV MCH MCHC RDW Plt Count MPV Neutrophils % Lymphocytes % Monocytes % Eosinophils % Basophils % Sodium Potassium Chloride Carbon Dioxide Anion Gap BUN Creatinine POC Glucometer 169.25566 140 98 Random Glucose Calcium Phosphorus Magnesium Albumin 06/01/17 06/01/17 06/01/17 07:50 07:50 07:50 WBC 5.5 RBC 3.47 L Hgb 11.0 L Hct 32.6 L MCV 94.0 MCH 31.6 MCHC 33.6 RDW 15.4 Plt Count 193 MPV 9.9 Neutrophils % 55.0 Lymphocytes % 22.3 Monocytes % 9.8 Eosinophils % 9.4 H Basophils % 3.5 H Sodium 135 L Potassium 4.3 Chloride 100 Carbon Dioxide 24 Anion Gap 11 BUN 64 H D Creatinine 8.9 H* D POC Glucometer Random Glucose 89 D Calcium 8.4 L Phosphorus 8.6 H D Magnesium 2.6 H Albumin 3.3 L Active Medications Generic Name Dose Route Start Last Admin Trade Name Freq PRN Reason Stop Dose Admin Atorvastatin Calcium 80 mg 05/31/17 22:00 05/31/17 22:09 Lipitor - PO 80 mg HS [facility] Administration Carvedilol 12.5 mg 05/31/17 22:00 05/31/17 22:09 Coreg - PO Not Given BID [facility] Sodium Chloride 250 mls @ 3,000 mls/hr 05/31/17 17:28 Normal Saline - IV 06/01/17 17:28 PRN PRN Hypotension during Dialysis Insulin Aspart 0 vial 05/31/17 16:30 06/01/17 06:45 Novolog Vial Sliding Scale - SQ Not Given ACHS [facility] Protocol Pregabalin 75 mg 06/01/17 10:00 Lyrica - PO DAILY [facility] ASSESSMENT/PLAN: 56 y/o M w/PMH of ESRD (on HD TTS), DM, PVD, OM, CVAx2 (w/LLE residual weakness ) presents to the ER after being sent in by Dr. Erick Frederick for further evaluation of left second toe necrosis/ischemia. #2nd toe of L foot necrosis/ischemia -Plan for angiogram today -Vascular surgery consult, Dr. Frederick -NPO -Wound care #ESRD -HD for today after angio -torsemide 80 mg po qd -Dr. Win consulted, nephrology #HTN -carvedilol 12.5 mg bid #DM -ISS, BGMs ACHS #LE neuropathy -lyrica 75 mg po qd #HLD -atorvastatin 80 mg po qhs #DVT ppx -Heparin 5000 units sq q8h held #FEN -No fluids for now -Monitor lytes -NPO -Dispo: M/s Visit type - Emergency Visit Emergency Visit: Yes ED Registration Date: 05/31/17 Care time: The patient presented to the Emergency Department on the above date and was hospitalized for further evaluation of their emergent condition. - New Patient This patient is new to me today: Yes Date on this admission: 06/01/17 - Critical Care Critical Care patient: No <Mohit Sharma - Last Filed: 06/01/17 18:51> Physical Exam: Possible discharge in am. patient will be getting dialysis post angiogram.
[2017-06-01] MEDS ORDERED: MIDAZOLAM HCL 2 MG/2 ML SINGLE DOSE VIAL ONE ×2 (11:35)
[2017-06-01] MEDS ORDERED: PROPOFOL 20 ML ONE ×2 (11:36)
[2017-06-01] MEDS ORDERED: ceFAZolin SODIUM 1 GM VIAL IVPB ONE (11:52)
[2017-06-01] MEDS ORDERED: LIDOCAINE HCL 1%, 10 MG/ML (20ML VIAL) NR ONE (11:54)
--- NOTE | 2017-06-01 13:06 | OP ---
Operative Note - Note: Operative Date: 06/01/17 Pre-Operative Diagnosis: Left 2nd toe gangrene Operation: aortogram, LLE angiogram Post-Operative Diagnosis: Same as Pre-op Surgeon: Erick Frederick Anesthesia: Fractional Estimated Blood Loss (mls): 50 Operative Report Dictated: Yes
--- NOTE | 2017-06-01 13:09 | PN ---
Progress Note (short form) - Note Progress Note: Vascular Surgery S/P angiogram LLE extremity. No disease found. There is microvascular disease in the left foot. No need for any intervention. Pt will get HD today. Pt can be DC home andre. Pt to start HBO on monday. Will try conservative approach for toe. If it doesn't get better, pt will come back for partial amputation. Erick kay DO
[2017-06-01] MEDS ORDERED: SODIUM CHLORIDE 250 ML IV PRN (13:18)
--- NOTE | 2017-06-01 13:31 | PN ---
Progress Note, Physician History of Present Illness: Pt seen and examined at bedside. He is awake and alert. He is going for angio today and will get HD afterwards. - Current Medication List Current Medications: Active Medications Atorvastatin Calcium (Lipitor -) 80 mg PO HS [facility] Carvedilol (Coreg -) 12.5 mg PO BID [facility] Sodium Chloride (Normal Saline -) 250 mls @ 3,000 mls/hr IV PRN PRN PRN Reason: Hypotension during Dialysis Stop: 06/01/17 17:28 Insulin Aspart (Novolog Vial Sliding Scale -) 0 vial SQ ACHS [facility] PRN Reason: Protocol Pregabalin (Lyrica -) 75 mg PO DAILY [facility] - Objective Vital Signs: Vital Signs Temperature 97.5 F L 06/01/17 06:35 Pulse Rate 71 06/01/17 10:00 Respiratory Rate 20 06/01/17 10:00 Blood Pressure 125/66 06/01/17 10:00 O2 Sat by Pulse Oximetry (%) 98 05/31/17 21:00 Constitutional: Yes: Calm Eyes: Yes: Conjunctiva Clear HENT: Yes: Atraumatic Cardiovascular: Yes: S1, S2 Respiratory: Yes: CTA Bilaterally Gastrointestinal: Yes: Soft Genitourinary: Yes: WNL Edema: Yes Neurological: Yes: Oriented Psychiatric: Yes: Oriented Labs: CBC, BMP 06/01/17 07:50 06/01/17 07:50 INR, PTT INR 1.12 (0.82-1.09) 05/31/17 06:30 Problem List - Problems (1) ESRD (end stage renal disease) Code(s): N18.6 - END STAGE RENAL DISEASE (2) Gangrene of toe of left foot Code(s): I96 - GANGRENE, NOT ELSEWHERE CLASSIFIED (3) PVD (peripheral vascular disease) Code(s): I73.9 - PERIPHERAL VASCULAR DISEASE, UNSPECIFIED (4) Anemia Code(s): D64.9 - ANEMIA, UNSPECIFIED Qualifiers: Anemia type: other cause Other causes of anemia: other cause, not classified Qualified Code(s): D64.89 - Other specified anemias (5) HTN (hypertension) Code(s): I10 - ESSENTIAL (PRIMARY) HYPERTENSION (6) Lymph edema Code(s): I89.0 - LYMPHEDEMA, NOT ELSEWHERE CLASSIFIED (7) Morbid obesity Code(s): E66.01 - MORBID (SEVERE) OBESITY DUE TO EXCESS CALORIES Assessment/Plan Current Medications Generic Name Dose Route Start Last Admin Trade Name Freq PRN Reason Stop Dose Admin Atorvastatin Calcium 80 mg 06/01/17 22:00 Lipitor - PO HS [facility] Carvedilol 12.5 mg 06/01/17 22:00 Coreg - PO BID [facility] Sodium Chloride 250 mls @ 3,000 mls/hr 06/01/17 13:18 Normal Saline - IV 06/01/17 17:28 PRN PRN Hypotension during Dialysis Insulin Aspart 0 vial 06/01/17 16:30 Novolog Vial Sliding Scale - SQ ACHS [facility] Protocol Pregabalin 75 mg 06/02/17 10:00 Lyrica - PO DAILY [facility] Impression 1. ESRD 2. anemia 3. HTN 4. morbid obesity 5. CVA 6. hyperlipidemia 7. proteinuria - nephrotic 8. PVD 9. lower ext gangrene Plan - angio today - HD arranged for today after angio - cont wound care - keep torsemide on hold for now - podiatry follow up - renal diet
[2017-06-01] MEDS ORDERED: PREGABALIN 75 MG CAPSULE PO ONE (15:00)
[2017-06-01 16:48] LABS: HEMATOCRIT 32.3 % (35.4-49); MCH 31.8 pg (25.7-33.7); MEAN CELL VOLUME 93.7 fl (80-96); MEAN PLT VOLUME 9.9 fl (7.5-11.1); PLATELET COUNT 190 K/MM3 (134-434); RBC 3.45 M/mm3 (4.00-5.60); RDW 15.1 % (11.9-15.9); WHITE BLOOD COUNT 6.2 K/mm3 (4.0-10.0)
[2017-06-01] MEDS ORDERED: HEPARIN NA (PORCINE) 5,000 UNITS/ML 1ML VIAL IVPUSH ONE (17:28)
[2017-06-01 18:34] LABS: CREATININE 9.3 mg/dL (0.7-1.3)
[2017-06-01 21:12] LABS: CREATININE 4.2 mg/dL (0.7-1.3)
[2017-06-01] MEDS: CARVEDILOL 12.5 MG TABLET (FP) PO SCH (21:22)
[2017-06-01] MEDS ORDERED: ATORVASTATIN CA 80 MG TABLET (FP) PO SCH (22:00)
--- NOTE | 2017-06-01 23:18 | OP ---
DATE OF OPERATION: 06/01/2017 PREOPERATIVE DIAGNOSIS: Gangrene left third toe. POSTOPERATIVE DIAGNOSIS: Gangrene left third toe. PROCEDURE: Aortogram, left lower extremity angiogram. SURGEON: Erick Barrera D.O. ANESTHESIA: Fractional. BLOOD LOSS: 50 mL. INDICATION: The patient is a 52-year-old male that comes in with left second-toe gangrene. He has had it for about 3 weeks. It was decided that he would need an angiogram. Preoperative ultrasound showed some disease in the tibial artery. Patient was consented for the procedure understanding all risks, benefits, and alternatives and then taken to the operating room. DESCRIPTION OF PROCEDURE: Once in the operating room, he was placed on the operating table in a supine manner, and the area of the left and right groin are prepped and draped in a sterile surgical manner. Under ultrasound guidance we visualized the right common femoral artery, and anesthesia of lidocaine 1% was injected. We then took a Micropuncture needle and punctured the right common femoral artery. A Micropuncture wire was inserted, and a traditional 5-Welsh sheath was inserted. We then placed 0.035 floppy guidewire up into the aorta followed by an Omniflush catheter. We then shot an aortogram via hand injection showing that the aorta and the iliac arteries were without any disease. We then placed our 0.035 floppy guidewire wire up and over to the left common femoral artery and our Omniflush catheter followed. We then shot an angiogram of the left lower extremity showing that the common femoral artery, the profunda, and the SFA are patent. The popliteal artery is patent. Patient has 3-vessel runoff down to the ankle. The DP and PT go into the foot, peritoneal artery stops at the ankle. But once the PT is the main dominant artery that goes all the way throughout the plantar aspect of the foot. The DP stops mid foot. There is microvascular disease supplying the toes, and we cannot see any capillaries or tributaries supplying the toes, which is why he has gangrene of his toe. At this point we decided there was no more intervention needed. There is no stenotic disease that needs angioplasty. We at this point we had a crossover sheath that was in place and a crossover sheath was brought up and over, and was successfully deployed in the right common femoral artery. Pressure was held for 5 minutes until there was no more bleeding. Areas were then dried and Dermabond was placed. Patient tolerated the procedure without complications. Patient was transferred to PACU in stable condition. Patient will now initiate hyperbaric oxygen therapy to see if we can save his toe. He understands that there is a chance that he might lose the toe in the future. ERICK BARRERA DO NP/[id number]
[2017-06-02] MEDS: INSULIN SLIDING SCALE (NOVOLOG) 1 VIAL SQ SCH ×2 (06:18→11:49)
[2017-06-02 08:23] LABS: ANION GAP 8 (8-16); BLOOD UREA NITROGEN 39 mg/dL (7-18); CALCIUM 8.1 mg/dL (8.5-10.1); CHLORIDE 100 mmol/L (98-107); CO2 31 mmol/L (21-32); CREATININE 6.3 mg/dL (0.7-1.3); GLUCOSE,RANDOM 158 mg/dL (74-106); POTASSIUM 4.2 mmol/L (3.5-5.1); SODIUM 139 mmol/L (136-145)
[2017-06-02 08:25] LABS: EOS % 7.2 % (0-4.5); HEMATOCRIT 32.4 % (35.4-49); HEMOGLOBIN 10.7 GM/dL (11.7-16.9); LYMPH % 15.4 % (8-40); MEAN PLT VOLUME 9.6 fl (7.5-11.1); MONO % 11.3 % (3.8-10.2); NEUT % 63.1 % (42.8-82.8); PLATELET COUNT 165 K/MM3 (134-434); RBC 3.44 M/mm3 (4.00-5.60); RDW 15.3 % (11.9-15.9); WHITE BLOOD COUNT 5.7 K/mm3 (4.0-10.0)
[2017-06-02 08:53] VITALS: BP 106/51; PULSE 79; TEMP 98.2
--- NOTE | 2017-06-02 09:10 | PN ---
Progress Note (short form) - Note Progress Note: POD #1 - s/p left lower extremity angiogram under GA. Pt. doing well, sitting up comfortably at side of bed. No complaints. No apparent anesthetic complications noted. Continue current care.
[2017-06-02] MEDS: CARVEDILOL 12.5 MG TABLET (FP) PO SCH (09:52)
[2017-06-02] MEDS ORDERED: PREGABALIN 75 MG CAPSULE PO SCH (10:00)
--- NOTE | 2017-06-02 10:09 | DS ---
Physical Exam: SUBJECTIVE: Patient seen and examined OBJECTIVE: Vital Signs Period Temp Pulse Resp BP Sys/Leon Pulse Ox Last 24 Hr 97.4 F-98.7 F 66-114 16-18 98-133/45-88 97-100 PHYSICAL EXAM GENERAL: The patient is awake, alert, and fully oriented, in no acute distress. HEAD: Normal with no signs of trauma. EYES: PERRL, extraocular movements intact, sclera anicteric, conjunctiva clear. ENT: Ears normal, nares patent, oropharynx clear without exudates, moist mucous membranes. NECK: Trachea midline, full range of motion, supple. LUNGS: Breath sounds equal, clear to auscultation bilaterally, no wheezes, no crackles, no accessory muscle use. HEART: Regular rate and rhythm, S1, S2 without murmur, rub or gallop. ABDOMEN: Soft, nontender, nondistended, normoactive bowel sounds, no guarding, no rebound, no hepatosplenomegaly, no masses. EXTREMITIES: 2+ pulses, warm, well-perfused, no edema. NEUROLOGICAL: Cranial nerves II through XII grossly intact. Normal speech, gait not observed. PSYCH: Normal mood, normal affect. SKIN: Warm, dry, normal turgor, no rashes or lesions noted. LABS Laboratory Results - last 24 hr Selected Entries 06/02/17 06/02/17 08:00 08:56 Temperature 98.2 F Pulse Rate 79 Respiratory 18 Rate Blood Pressure 106/51 O2 Sat by Pulse 99 Oximetry (%) Oxygen Delivery Room Air Method Laboratory Tests 06/02/17 06/02/17 07:44 07:44 WBC 5.7 Hgb 10.7 L Hct 32.4 L Plt Count 165 Sodium 139 Potassium 4.2 Chloride 100 Carbon Dioxide 31 D Anion Gap 8 BUN 39 H D Creatinine 6.3 H D Random Glucose 158 H D Calcium 8.1 L Imaging: CXR- No acute pathology Angigram-Microvascular disease supplying the toes. No capillaries or tributaries supplying the toe HOSPITAL COURSE: Date of Admission:05/31/17 Date of Discharge: 06/02/17 56 y/o M w/PMH of ESRD (on HD TTS), DM, PVD, OM, CVAx2 (w/LLE residual weakness ) presents to the ER after being sent in by Dr. Erick Frederick for further evaluation of left second toe. Patient underwent Angiogram, results above. Patient d/c with follow up in hyperbarics, pcp, wound care. Patient will continue going to HD on tts. F/u wound care appointment made on 06/16 @ 10 am. Minutes to complete discharge: 40 <Maninder Peters - Last Filed: 06/02/17 10:10> Physical Exam: Patient is comfortable with no acute distress, No fever or shortness of breath , tolerating diet well. Vital Signs Temperature 98.2 F 06/02/17 08:00 Pulse Rate 79 06/02/17 08:00 Respiratory Rate 18 06/02/17 08:00 Blood Pressure 106/51 06/02/17 08:00 O2 Sat by Pulse Oximetry (%) 99 06/02/17 08:56 CBCD WBC 5.7 K/mm3 (4.0-10.0) 06/02/17 07:44 RBC 3.44 M/mm3 (4.00-5.60) L 06/02/17 07:44 Hgb 10.7 GM/dL (11.7-16.9) L 06/02/17 07:44 Hct 32.4 % (35.4-49) L 06/02/17 07:44 MCV 94.0 fl (80-96) 06/02/17 07:44 MCHC 33.0 g/dl (32.0-35.9) 06/02/17 07:44 RDW 15.3 % (11.9-15.9) 06/02/17 07:44 Plt Count 165 K/MM3 (134-434) 06/02/17 07:44 MPV 9.6 fl (7.5-11.1) 06/02/17 07:44 CMP Sodium 139 mmol/L (136-145) 06/02/17 07:44 Potassium 4.2 mmol/L (3.5-5.1) 06/02/17 07:44 Chloride 100 mmol/L (98-107) 06/02/17 07:44 Carbon Dioxide 31 mmol/L (21-32) D 06/02/17 07:44 Anion Gap 8 (8-16) 06/02/17 07:44 BUN 39 mg/dL (7-18) H D 06/02/17 07:44 Creatinine 6.3 mg/dL (0.7-1.3) H D 06/02/17 07:44 Creat Clearance w eGFR 8.05 (>60) 05/31/17 06:30 Random Glucose 158 mg/dL (74-106) H D 06/02/17 07:44 Calcium 8.1 mg/dL (8.5-10.1) L 06/02/17 07:44 Total Bilirubin 0.3 mg/dL (0.2-1.0) D 05/31/17 06:30 AST 18 U/L (15-37) D 05/31/17 06:30 ALT 14 U/L (12-78) 05/31/17 06:30 Alkaline Phosphatase 61 U/L (45-117) D 05/31/17 06:30 Total Protein 7.6 g/dl (6.4-8.2) D 05/31/17 06:30 Albumin 3.3 g/dl (3.4-5.0) L 06/01/17 07:50 Current Medications Generic Name Dose Route Start Last Admin Trade Name Freq PRN Reason Stop Dose Admin Atorvastatin Calcium 80 mg 06/01/17 22:00 06/01/17 21:22 Lipitor - PO 80 mg HS [facility] Administration Carvedilol 12.5 mg 06/01/17 22:00 06/02/17 09:52 Coreg - PO 12.5 mg BID [facility] Administration Insulin Aspart 1 vial 06/01/17 16:30 06/02/17 06:18 Novolog Vial Sliding Scale - SQ Not Given ACHS [facility] Protocol Pregabalin 75 mg 06/02/17 10:00 06/02/17 09:52 Lyrica - PO 75 mg DAILY [facility] Administration Home Medications Medication Instructions Recorded Omeprazole [Prilosec (RX)] 20 mg PO DAILY 08/13/14 Atorvastatin Ca [Lipitor] 80 mg PO HS 05/24/16 Carvedilol 12.5 mg PO BID 05/24/16 Ferrous Sulfate [Feosol] 1 tab PO DAILY 08/02/16 Albuterol Sulfate [Proair 90 mcg IH BID 11/13/16 Respiclick] Cholecalciferol (Vitamin D3) 2,000 unit PO DAILY 11/13/16 [Vitamin D3] Aspirin [ASA -] 81 mg PO DAILY #30 tab.chew 11/15/16 Glipizide 5 mg PO BID 04/19/17 Pregabalin [Lyrica -] 75 mg PO DAILY MDD 50 mg 04/19/17 Calcium Acetate [Phoslo -] 1,334 mg PO TIDCM capsule 04/27/17 Collagenase Clostridium Hist. 1 applic TP DAILY #1 tube 04/27/17 [Santyl -] Docusate Sodium [Colace -] 100 mg PO TID PRN #90 capsule 04/27/17 Miscellaneous Medical Supply 1 each ASDIR #1 misc 04/27/17 [Outpatient Order] Polyethylene Glycol 3350 [Miralax 17 gm PO DAILY bottle 04/27/17 119 gm Btl -] Torsemide 80 mg PO DAILY #120 tablet 04/27/17 Lorazepam [Ativan] 2 mg PO DAILY #30 tablet MDD 1 06/01/17 Patient can be discharged home, follow up with Dr. Frederick in 2 weeks on June 16 at 10am, an appointment is made for him. follow up with Hyperbaric this Monday. patient will follow up with his wound care this Monday to wound care clinic. Patient can be discharged as per Dr. Frederick and can return to his Physical therapy. <Mohit Sharma - Last Filed: 06/02/17 11:51> Discharge Summary Reason For Visit: GANGRENE OF LEFT TOE AND FOOT Current Active Problems Gangrene of toe of left foot (Acute) DM type 2, uncontrolled, with renal complications (Chronic) ESRD (end stage renal disease) (Chronic) HLD (hyperlipidemia) (Chronic) HTN (hypertension) (Chronic) Neuropathy (Chronic) PVD (peripheral vascular disease) (Chronic) - Home Medications Comprehensive Discharge Medication List: Ambulatory Orders Omeprazole [Prilosec (RX)] 20 mg PO DAILY 08/13/14 Atorvastatin Ca [Lipitor] 80 mg PO HS 05/24/16 Carvedilol 12.5 mg PO BID 05/24/16 Ferrous Sulfate [Feosol] 1 tab PO DAILY 08/02/16 Albuterol Sulfate [Proair Respiclick] 90 mcg IH BID 11/13/16 Cholecalciferol (Vitamin D3) [Vitamin D3] 2,000 unit PO DAILY 11/13/16 Aspirin [ASA -] 81 mg PO DAILY #30 tab.chew 11/15/16 Glipizide 5 mg PO BID 04/19/17 Pregabalin [Lyrica -] 75 mg PO DAILY MDD 50 mg 04/19/17 Acetaminophen [Tylenol .Regular Strength -] 650 mg PO Q4H PRN tablet 04/27/17 Calcium Acetate [Phoslo -] 1,334 mg PO TIDCM capsule 04/27/17 Collagenase Clostridium Hist. [Santyl -] 1 applic TP DAILY #1 tube 04/27/17 Docusate Sodium [Colace -] 100 mg PO TID PRN #90 capsule 04/27/17 Mineral Oil/Petrolat,Wht/Water [Eucerin (Large Jar) -] 1 applic TP DAILY PRN jar 04/27/17 Miscellaneous Medical Supply [Outpatient Order] 1 each ASDIR #1 misc Polyethylene Glycol 3350 [Miralax 119 gm Btl -] 17 gm PO DAILY bottle 04/27/17 Torsemide 80 mg PO DAILY #120 tablet 04/27/17 Lorazepam [Ativan] 2 mg PO DAILY #30 tablet MDD 1 06/01/17 <Maninder Peters - Last Filed: 06/02/17 10:10> Current Active Problems Gangrene of toe of left foot (Acute) DM type 2, uncontrolled, with renal complications (Chronic) ESRD (end stage renal disease) (Chronic) HLD (hyperlipidemia) (Chronic) HTN (hypertension) (Chronic) Neuropathy (Chronic) PVD (peripheral vascular disease) (Chronic) - Home Medications Comprehensive Discharge Medication List: Ambulatory Orders Omeprazole [Prilosec (RX)] 20 mg PO DAILY 08/13/14 Atorvastatin Ca [Lipitor] 80 mg PO HS 05/24/16 Carvedilol 12.5 mg PO BID 05/24/16 Ferrous Sulfate [Feosol] 1 tab PO DAILY 08/02/16 Albuterol Sulfate [Proair Respiclick] 90 mcg IH BID 11/13/16 Cholecalciferol (Vitamin D3) [Vitamin D3] 2,000 unit PO DAILY 11/13/16 Aspirin [ASA -] 81 mg PO DAILY #30 tab.chew 11/15/16 Glipizide 5 mg PO BID 04/19/17 Pregabalin [Lyrica -] 75 mg PO DAILY MDD 50 mg 02/14/18 Calcium Acetate [Phoslo -] 1,334 mg PO TIDCM capsule 04/27/17 Collagenase Clostridium Hist. [Santyl -] 1 applic TP DAILY #1 tube 04/27/17 Docusate Sodium [Colace -] 100 mg PO TID PRN #90 capsule 04/27/17 Miscellaneous Medical Supply [Outpatient Order] 1 each ASDIR #1 misc Polyethylene Glycol 3350 [Miralax 119 gm Btl -] 17 gm PO DAILY bottle 04/27/17 Torsemide 80 mg PO DAILY #120 tablet 04/27/17 Lorazepam [Ativan] 2 mg PO DAILY #30 tablet MDD 1 06/01/17 <Mohit Sharma - Last Filed: 06/02/17 11:51> Condition: Stable - Instructions Diet, Activity, Other Instructions: You were in the hospital for an angiogram of your left leg. You will be going to hyperbarics on Monday. Please crab picker your medication (ativan) at your pharmacy. Please follow up with your primary care provider within 1 week. Please follow up in wound care with Dr. Frederick on 06/16. Your appointment has been made for 10 am. Please continue to go to dialysis (Monday//Monday). Continue your home medications. If you have chest pain, shortness of breath, or any new/worsening symptoms please come back to the hospital immediately. Referrals: Hai Davis [Primary Care Provider] - Erick Frederick MD [Staff Physician] - 06/16/17 Brigitte Win MD [Staff Physician] - Disposition: HOME This patient is new to me today: No Emergency Visit: Yes ED Registration Date: 05/31/17 Care time: The patient presented to the Emergency Department on the above date and was hospitalized for further evaluation of their emergent condition. Critical Care patient: No - Discharge Referral Referred to [facility] No <Maninder Peters - Last Filed: 06/02/17 10:10>
[2017-06-02] MEDS ORDERED: INSULIN (NOVOLOG) ASPART 100 UNITS/ML 10ML VIAL ONE (11:48)
--- NOTE | 2017-06-02 13:46 | PN ---
Progress Note, Physician History of Present Illness: Pt seen and examined at bedside. He is going home today. He denies shortness of breath. - Current Medication List Current Medications: Active Medications Atorvastatin Calcium (Lipitor -) 80 mg PO HS [facility] Last Admin: 06/01/17 21:22 Dose: 80 mg Carvedilol (Coreg -) 12.5 mg PO BID [facility] Last Admin: 06/02/17 09:52 Dose: 12.5 mg Insulin Aspart (Novolog Vial Sliding Scale -) 1 vial SQ ACHS [facility] PRN Reason: Protocol Last Admin: 06/02/17 11:49 Dose: 4 units Pregabalin (Lyrica -) 75 mg PO DAILY [facility] Last Admin: 06/02/17 09:52 Dose: 75 mg - Objective Vital Signs: Vital Signs Temperature 98.2 F 06/02/17 08:00 Pulse Rate 79 06/02/17 08:00 Respiratory Rate 18 06/02/17 08:00 Blood Pressure 106/51 06/02/17 08:00 O2 Sat by Pulse Oximetry (%) 99 06/02/17 08:56 Constitutional: Yes: Calm Eyes: Yes: Conjunctiva Clear HENT: Yes: Atraumatic Neck: Yes: Supple Cardiovascular: Yes: S1, S2 Respiratory: Yes: CTA Bilaterally Gastrointestinal: Yes: Normal Bowel Sounds, Soft Genitourinary: Yes: WNL Musculoskeletal: Yes: WNL Edema: Yes Integumentary: Yes: Venous Stasis Changes Wound/Incision: Yes: Dressing Dry and Intact Psychiatric: Yes: Oriented Labs: CBC, BMP 06/02/17 07:44 06/02/17 07:44 INR, PTT INR 1.12 (0.82-1.09) 05/31/17 06:30 Problem List - Problems (1) ESRD (end stage renal disease) Code(s): N18.6 - END STAGE RENAL DISEASE (2) Gangrene of toe of left foot Code(s): I96 - GANGRENE, NOT ELSEWHERE CLASSIFIED (3) PVD (peripheral vascular disease) Code(s): I73.9 - PERIPHERAL VASCULAR DISEASE, UNSPECIFIED (4) Anemia Code(s): D64.9 - ANEMIA, UNSPECIFIED Qualifiers: Anemia type: other cause Other causes of anemia: other cause, not classified Qualified Code(s): D64.89 - Other specified anemias (5) HTN (hypertension) Code(s): I10 - ESSENTIAL (PRIMARY) HYPERTENSION (6) Lymph edema Code(s): I89.0 - LYMPHEDEMA, NOT ELSEWHERE CLASSIFIED (7) Morbid obesity Code(s): E66.01 - MORBID (SEVERE) OBESITY DUE TO EXCESS CALORIES Assessment/Plan Current Medications Generic Name Dose Route Start Last Admin Trade Name Nataliia PRN Reason Stop Dose Admin Atorvastatin Calcium 80 mg 06/01/17 22:00 06/01/17 21:22 Lipitor - PO 80 mg HS [facility] Administration Carvedilol 12.5 mg 06/01/17 22:00 06/02/17 09:52 Coreg - PO 12.5 mg BID [facility] Administration Insulin Aspart 1 vial 06/01/17 16:30 06/02/17 11:49 Novolog Vial Sliding Scale - SQ 4 units ACHS [facility] Administration Protocol Pregabalin 75 mg 06/02/17 10:00 06/02/17 09:52 Lyrica - PO 75 mg DAILY [facility] Administration Impression 1. ESRD 2. anemia 3. HTN 4. morbid obesity 5. CVA 6. hyperlipidemia 7. proteinuria - nephrotic 8. PVD 9. lower ext gangrene Plan - HD in am as outpt - vascular follow up - cont rehab - wound care follow up - can restart torsemide on Monday - renal diet
[2017-06-03 06:15] LABS: HBSAG SCREEN Negative (Negative); HEP B CORE AB, TOT Negative (Negative)
== END 2017-06-02 14:04 | disposition home or self-care (01) | DRG 299 ==
LOC: JER 06:01 → JERBED 10:23 → J6S 18:55 → JERBED 20:38 → J6S 20:40
PROVIDERS: ADMIT Internal Medicine; ATTEND Internal Medicine
PROC: B40GYZZ Plain Radiography of Left Lower Extremity Arteries using Other Contrast (ICD-10-PCS; 2017-06-01)
PROC: 5A1D70Z Performance of Urinary Filtration, Intermittent, Less than 6 Hours Per Day (ICD-10-PCS; 2017-06-01)
PROC: B40DYZZ Plain Radiography of Aorta and Bilateral Lower Extremity Arteries using Other Contrast (ICD-10-PCS; principal; 2017-06-01 17:30)
DX: E11.52 Type 2 diabetes mellitus with diabetic peripheral angiopathy with gangrene (principal); N18.6 End stage renal disease; I12.0 Hypertensive chronic kidney disease with stage 5 chronic kidney disease or end stage renal disease; L97.528 Non-pressure chronic ulcer of other part of left foot with other specified severity; I69.354 Hemiplegia and hemiparesis following cerebral infarction affecting left non-dominant side; M86.68 Other chronic osteomyelitis, other site; E11.22 Type 2 diabetes mellitus with diabetic chronic kidney disease; E78.5 Hyperlipidemia, unspecified; D64.9 Anemia, unspecified; E66.01 Morbid (severe) obesity due to excess calories; Z68.39 Body mass index [BMI] 39.0-39.9, adult; E11.42 Type 2 diabetes mellitus with diabetic polyneuropathy; K21.9 Gastro-esophageal reflux disease without esophagitis; G47.30 Sleep apnea, unspecified; I89.0 Lymphedema, not elsewhere classified; E11.621 Type 2 diabetes mellitus with foot ulcer; Z99.2 Dependence on renal dialysis; Z98.84 Bariatric surgery status; E11.69 Type 2 diabetes mellitus with other specified complication
CPT/HCPCS: 36415; 71045-TC-FY; 76000-TC-FY; 80048; 80053; 82040; 82565; 82962; 83735; 83880; 84100; 84520; 85025; 85027; 85610; 86704; 86706; 86708; 86850; 86900; 86901; 87340; 93005; 93010; 94760; 97116-GP; 97161-GP; 99283-25; G0463-25; J1644

== ENCOUNTER 2017-06-10 11:54 | Inpatient (IN) | payer OTHER ==
[2017-06-10 12:24] VITALS: BMI 40.6
[2017-06-15 22:09] VITALS: BP 118/62; PULSE 77; TEMP 98.7
== END 2017-06-15 22:00 | DRG 255 ==
LOC: JER 11:54 → JERBED 18:10 → J8W 06-11 00:50
PROVIDERS: ADMIT Internal Medicine; ATTEND Internal Medicine
PROC: 0Y6S0Z0 Detachment at Left 2nd Toe, Complete, Open Approach (ICD-10-PCS; principal; 2017-06-12)
PROC: 5A1D90Z Performance of Urinary Filtration, Continuous, Greater than 18 hours Per Day (ICD-10-PCS; 2017-06-15)
DX: E11.52 Type 2 diabetes mellitus with diabetic peripheral angiopathy with gangrene (principal); N18.6 End stage renal disease; I96 Gangrene, not elsewhere classified; I12.0 Hypertensive chronic kidney disease with stage 5 chronic kidney disease or end stage renal disease; Z68.41 Body mass index [BMI] 40.0-44.9, adult; I69.354 Hemiplegia and hemiparesis following cerebral infarction affecting left non-dominant side; L03.116 Cellulitis of left lower limb; I25.10 Atherosclerotic heart disease of native coronary artery without angina pectoris; E78.5 Hyperlipidemia, unspecified; E11.22 Type 2 diabetes mellitus with diabetic chronic kidney disease; Z99.2 Dependence on renal dialysis; E66.01 Morbid (severe) obesity due to excess calories; I73.9 Peripheral vascular disease, unspecified; E11.40 Type 2 diabetes mellitus with diabetic neuropathy, unspecified; Z91.14 Patient's other noncompliance with medication regimen; D63.1 Anemia in chronic kidney disease; E11.65 Type 2 diabetes mellitus with hyperglycemia; D72.829 Elevated white blood cell count, unspecified; E11.621 Type 2 diabetes mellitus with foot ulcer
CPT/HCPCS: 36415; 71045-TC-FY; 73630-TC-LT; 80048; 80053; 82272; 82565; 82728; 82746; 82803; 82962; 83540; 83550; 83605; 83735; 84100; 84484; 84520; 85025; 85027; 85610; 85651; 85730; 86140; 86704; 86706; 86708; 87040; 87070; 87075; 87186; 87205; 87340; 93005; 93010; 94660; 94760; 97116-GP; 97161-GP; 99283-25; G0277; G0480; J0885; J1644; P9047

== ENCOUNTER 2017-06-22 07:43 | Inpatient (IN) | payer OTHER ==
--- NOTE | 2017-06-22 07:51 | PDOC ---
History of Present Illness - General Stated Complaint: UNCONSCIOUS Time Seen by Provider: 06/22/17 07:49 - History of Present Illness Initial Comments: 06/22/17 07:51 Patient is a 56 year old male with a PMH of ESRD (on HD TTS), DM, PVD, OM, CVAx2 (w/LLE residual weakness) presents to our ED after a syncopal episode during HD. Patient states he last recalls the nurse adjusting his dialysis fistula and then remembers everyone yelling at him. Denies any pre-syncopal chest pain, shortness of breath, lightheadedness. No previous syncopal episodes. Notes he doesn't usually isc H/o recent L 2nd phalanx amputation 04/07 to gangrene with subsequent short stay @ [facility] follows @ wound clinic. Allergy: Sulfur Surgery: L 2nd phalanx amputation (06/2017) Social: denies cigarettes, denies alcohol, denies recreational drugs PMD: Dr. Terrell Past History - Past Medical History Allergies/Adverse Reactions: Allergies Allergy/AdvReac Type Severity Reaction Status Date / Time fish derived Allergy Severe Hives Verified 06/10/17 11:55 Shellfish Allergy Severe Verified 06/10/17 11:55 sulfamethoxazole Allergy Severe Swelling Verified 06/10/17 11:55 [From Bactrim DS] trimethoprim Allergy Severe Swelling Verified 06/10/17 11:55 [From Bactrim DS] Home Medications: Ambulatory Orders Omeprazole [Prilosec (RX)] 20 mg PO DAILY 08/13/14 Atorvastatin Ca [Lipitor] 80 mg PO HS 05/24/16 Carvedilol 12.5 mg PO BID 05/24/16 Ferrous Sulfate [Feosol] 1 tab PO DAILY 08/02/16 Albuterol Sulfate [Proair Respiclick] 90 mcg IH BID 11/13/16 Cholecalciferol (Vitamin D3) [Vitamin D3] 2,000 unit PO DAILY 11/13/16 Aspirin [ASA -] 81 mg PO DAILY #30 tab.chew 11/15/16 Glipizide 5 mg PO BID 04/19/17 Pregabalin [Lyrica -] 75 mg PO DAILY MDD 50 mg 04/19/17 Calcium Acetate [Phoslo -] 1,334 mg PO TIDCM capsule 04/27/17 Collagenase Clostridium Hist. [Santyl -] 1 applic TP DAILY #1 tube 04/27/17 Docusate Sodium [Colace -] 100 mg PO TID PRN #90 capsule 04/27/17 Polyethylene Glycol 3350 [Miralax 119 gm Btl -] 17 gm PO DAILY bottle 04/27/17 Torsemide 80 mg PO DAILY #120 tablet 04/27/17 Lorazepam [Ativan] 2 mg PO DAILY #30 tablet MDD 1 06/01/17 Amox-Tr/K Cl [Augmentin - 500Mg Tablet] 1 tab PO ONCE #1 tablet 06/20/17 Anemia: Yes Asthma: Yes Cancer: No Cardiac Disorders: (ANGINA) CVA: Yes COPD: Yes CHF: No Dementia: No Diabetes: Yes Dialysis: Yes (tu,thr,sat lt arm fistula) GI Disorders: No Disorders: No HTN: Yes Hypercholesterolemia: Yes Liver Disease: No Seizures: No Thyroid Disease: No - Surgical History Abdominal Surgery: Yes (gastric bypass 05/05/14) Appendectomy: No Cardiac Surgery: No Cholecystectomy: No Lung Surgery: No Neurologic Surgery: No Orthopedic Surgery: No - Immunization History Immunization Up to Date: Yes - Suicide/Smoking/Psychosocial Hx Smoking Status: No Smoking History: Never smoked Have you smoked in the past 12 months: No Number of Cigarettes Smoked Daily: 0 Hx Alcohol Use: No Drug/Substance Use Hx: No Substance Use Type: None Hx Substance Use Treatment: No *Physical Exam - Physical Exam Comments: 06/22/17 09:12 GENERAL: Awake, alert, and fully oriented, in no acute distress HEAD: No signs of trauma EYES: PERRLA, EOMI, sclera anicteric, conjunctiva clear ENT: Auricles normal inspection, hearing grossly normal, nares patent, oropharynx clear without exudates. Moist mucosa NECK: Nontender, no stepoffs, Normal ROM, supple, no lymphadenopathy, JVD, or masses LUNGS: Breath sounds equal, clear to auscultation bilaterally. No wheezes, and no crackles HEART: Regular rate and rhythm, normal S1 and S2, no murmurs, rubs or gallops ABDOMEN: Soft, nontender, normoactive bowel sounds. No guarding, no rebound. No masses EXTREMITIES: B/L LE non-pitting edema; L 2nd phalanx amputation with granulation tissue, L 3rd phalanx dusky plantar surface, lateral hyperemic changes- decreased sensation; 2+ pulse SKIN: Warm, Dry, normal turgor, no rashes or lesions noted. ED Treatment Course - LABORATORY CBC & Chemistry Diagram: 06/28/17 07:40 06/28/17 09:25 Medical Decision Making - Medical Decision Making 06/22/17 08:35 56 year old male presents after a cardiogenic episode @ HD. Uncertain length of LOC. No prior h/o syncope. Will obtain ECG, Cardiac enzymes x1, basic labs to evaluate for cardiac causes of syncope including arrhythmia and ACS. Physical exam significant for L 3rd toe hyperemia/gangrenous change -- will contact podiatry and vascular 06/22/17 08:52 ECG shows HR 75, PACs, LAD, no OUMOU/STD/TWI, poor R wave progression V1-V6. Consistent with previous ECG from 06/10/2017 - low clinical suspicion for acute ischemia 06/22/17 09:06 Case d/w Dr. Chan (Podiatry) - states he evaluated patient yesterday noted hyperemia + possible gangrenous changes to L third phalanx. States patient needs close f/u with endovascular as well as hyperbaric therapy, states the wound "didn't look infected, looked neglected" 06/22/17 09:37 CBC significant for WBC 19.8 -- patient states he is on Augmentin; As per EMR patient recieved 7 day course of Vanc/Zoysn s/p amputation. Patient states he recieved a OTD of Augmentin @ home yesterday and was scheduled to receive a second dose at HD but he didn't do so because of his syncopal episode/truncated dialysis. Will page PMD and start broad spectrum antibiotic coverage. 06/22/17 10:20 Case d/w podiatry - agrees with Vanc/Zoysn 06/22/17 10:29 Given patient's WBC count + likely ischemic changes to third phalanx + syncopal episode with unknown etiology will admit patient for further evaluation including vascular, infectious disease, podiatry, cardiac. 06/22/17 12:07 Patient admitted to inpatient medicine service, Dr. Centeno. Nephrology @ bedside. Requests Head CT as patient already hypercoaguable 2/2 to uremia prior to re-initiating dialysis. Will page hospitalist team. Will continue to monitor while in ED. *DC/Admit/Observation/Transfer Diagnosis at time of Disposition: Ischemic toe - Referrals - Patient Instructions - Post Discharge Activity
--- NOTE | 2017-06-22 07:57 | PDOC ---
Attending Attestation - Resident Resident Name: Ngozi Schreiber - ED Attending Attestation I have performed the following: I have examined & evaluated the patient, The case was reviewed & discussed with the resident, I agree w/resident's findings & plan, Exceptions are as noted - HPI HPI: 06/22/17 07:57 56y M hx of ESRD (Dialysis T/Th/S), DM, PVD, OM, CVA x 2 (w / LLL residual weaknesS), recent toe amputation/hospitalization presents with complaint of syncope. Per EMS, pt got approx 20 min of dialysis before syncopizing. was noted to be pale, diaphoretic. BP upon EMS arrival was normal. Pt notes he had a normal morning, went to dialysis and syncopized briefly. he denies any associated cp, sob, diaphoresis, fever/chills, abd pain, headache, lightheadedness, neck pain, back pain, foot pain, dysuria, diarrhea, melena. States he currently feels fine. On exam the pt appears well appearing in no distress GENERAL: The patient is awake, alert, and fully oriented, Nontoxic - in no acute distress. Morbidly obese HEAD: Normocephalic, atraumatic. EYES: extraocular movements intact, sclera anicteric, conjunctiva clear. ENT: Normal voice, Moist mucous membranes. NECK: Normal range of motion, supple LUNGS: Breath sounds equal, clear to auscultation bilaterally. No wheezes, no rhonchi, no rales. HEART: Regular rate and rhythm, normal S1 and S2 without murmur, rub or gallop. ABDOMEN: Soft, nontender, normoactive bowel sounds. No guarding, no rebound. . No CVA tenderness EXTREMITIES: s/p amputation L 2nd toe, mildly hyerpemic at wound site, no purulent discharge, not warm /indurated/tender on exam, 3rd toe appears hyerpemic with duskiness at the planter/distal aspect of 3rd toe. NEUROLOGICAL: No facial assymetry, Normal speech, moving all 4 extremities spontaneously and symmetrically PSYCH: Normal mood, normal affect. SKIN: Warm, Dry, normal turgor, ddx for syncope - metabolic derangement, anemia, bacteremia, arrythmia will ck labs will send cultures pt placed on cardiac montiro ekg shows nsr - Physicial Exam PE: 06/27/17 08:17 see above - Medical Decision Making 06/22/17 10:10 pts labs reviewed noted for leukocytosis of 19 in ligh tof the apperance of his foot, consider that may be the source of his infection will admit for further management jesse notify dr. reardon 06/22/17 11:16 will admit the pt for futher management
[2017-06-22 08:13] VITALS: BMI 39.5
[2017-06-22 09:18] LABS: BASO % 1.3 % (0-2.0); EOS % 1.9 % (0-4.5); HEMATOCRIT 32.4 % (35.4-49); HEMOGLOBIN 10.3 GM/dL (11.7-16.9); LYMPH % 4.8 % (8-40); MCH 29.5 pg (25.7-33.7); MCHC 31.9 g/dl (32.0-35.9); MEAN CELL VOLUME 92.3 fl (80-96); MEAN PLT VOLUME 8.9 fl (7.5-11.1); MONO % 5.5 % (3.8-10.2); NEUT % 86.5 % (42.8-82.8); PLATELET COUNT 421 K/MM3 (134-434); RDW 15.3 % (11.9-15.9); WHITE BLOOD COUNT 19.8 K/mm3 (4.0-10.0)
[2017-06-22 09:44] LABS: ALBUMIN 2.5 g/dl (3.4-5.0); ANION GAP 8 (8-16); BILIRUBIN,TOTAL 0.4 mg/dL (0.2-1.0); BLOOD UREA NITROGEN 43 mg/dL (7-18); CALCIUM 8.2 mg/dL (8.5-10.1); CHLORIDE 103 mmol/L (98-107); CO2 25 mmol/L (21-32); GLUCOSE,RANDOM 156 mg/dL (74-106); SGPT/ALT 21 U/L (12-78); SODIUM 136 mmol/L (136-145)
[2017-06-22 09:49] LABS: N-TERMINAL BNP 19025.03 pg/ml (5-125)
[2017-06-22 09:50] LABS: ALK PHOS 59 U/L (45-117)
[2017-06-22 09:51] LABS: POTASSIUM 4.2 mmol/L (3.5-5.1); SGOT/AST 36 U/L (15-37)
[2017-06-22 09:52] LABS: CREATININE 8.5 mg/dL (0.7-1.3)
[2017-06-22] MEDS ORDERED: PIPERACILLIN/TAZOB 4.5 GM 4.5 GM in DEXTROSE 5%-WATER 100 ML IVPB ONE (10:19)
[2017-06-22] MEDS ORDERED: VANCOMYCIN 1,000 MG in DEXTROSE 5%-WATER - 250 ML IVPB ONE (10:19)
[2017-06-22] MEDS ORDERED: VANCOMYCIN 1 GRAM (PRE-DOCKED) 1,000 MG/250 ML BAG IVPB ONE (10:34)
[2017-06-22] MEDS ORDERED: PIPERACILLIN/TAZOB 4.5 GM 4.5 GM/100 ML BAG IVPB ONE (10:34)
[2017-06-22] MEDS ORDERED: DOCUSATE SODIUM 100 MG CAPSULE (FP) PO PRN (11:37)
--- NOTE | 2017-06-22 11:45 | HP ---
CHIEF COMPLAINT: syncope, gangrene of toes. PCP: HISTORY OF PRESENT ILLNESS: This is a 56 yo M w PMH of ESRD (on HD TTS), NIDDM, PVD, OM, CVAx2 (w/LLE residual weakness), DM, HTN, who was sent to ER from HD due to syncopal episode. Patient reports that he was getting a HD and after 15 to 20min he become unconscious and woke up in ambulance ( Talked to nurse alexandre who was taking care of him in HD states that he was unresponsive for 10 min and after that he was confused, his vitals was normal, BGM 140, when he left the facility he was still confused but seizure like activity ). Denies aura, headache, chest pain, sob, palpitations, nausea, vomiting, head trauma, stiffness in neck, Denies new onset of numbness or weakness. Denies tongue bite , urine and faecal incontinence. Denies any new drug. Denies burning micturation. Reports some times he get hypotension during HD and at that time they gives him fluid and something to eat but this time it was different. He also reports that he was recently discharged from hospital and got amputation on his middle toe in last admission for gangrene. [facility] and is following wound clinic with Dr reardon ( last time saw him on Monday. Who saw erythema and edema in other toes and started him on augmentin and vanco ) Patient is also getting a hyperbaric o2 therapy ( 1st sitting was last night) . Denies fever and chills. Denies any change in color of his legs. But reports he does noticed swelling in his fingers he [facility] took augmentin on monday didn't get vanco in HD medicine list confirmed from [facility]. [facility] from [facility] and after that patient has many hospitalizations. ER course was notable for: (1)joanne joshi (2)cbc, bmp Recent Travel: no PAST MEDICAL HISTORY: as above PAST SURGICAL HISTORY: bariatric surgery 3 years ago, amputation of toe Social History: Smoking: former smoker quit many tears ago Alcohol: quit many year ago Drugs: no Family History: not relevent Allergies fish derived Allergy (Severe, Verified 06/10/17 11:55) Hives Shellfish Allergy (Severe, Verified 06/10/17 11:55) throat swelling sulfamethoxazole [From Bactrim DS] Allergy (Severe, Verified 06/10/17 11:55) Swelling trimethoprim [From Bactrim DS] Allergy (Severe, Verified 06/10/17 11:55) Swelling HOME MEDICATIONS: Home Medications Medication Instructions Recorded Omeprazole [Prilosec (RX)] 20 mg PO DAILY 08/13/14 Atorvastatin Ca [Lipitor] 80 mg PO HS 05/24/16 Carvedilol 12.5 mg PO BID 05/24/16 Ferrous Sulfate [Feosol] 1 tab PO DAILY 08/02/16 Albuterol Sulfate [Proair 90 mcg IH BID 11/13/16 Respiclick] Cholecalciferol (Vitamin D3) 2,000 unit PO DAILY 11/13/16 [Vitamin D3] Aspirin [ASA -] 81 mg PO DAILY #30 tab.chew 11/15/16 Glipizide 5 mg PO BID 04/19/17 Pregabalin [Lyrica -] 75 mg PO DAILY MDD 50 mg 04/19/17 Calcium Acetate [Phoslo -] 1,334 mg PO TIDCM capsule 04/27/17 Collagenase Clostridium Hist. 1 applic TP DAILY #1 tube 04/27/17 [Santyl -] Docusate Sodium [Colace -] 100 mg PO TID PRN #90 capsule 04/27/17 Polyethylene Glycol 3350 [Miralax 17 gm PO DAILY bottle 04/27/17 119 gm Btl -] Torsemide 80 mg PO DAILY #120 tablet 04/27/17 Lorazepam [Ativan] 2 mg PO DAILY #30 tablet MDD 1 06/01/17 Amox-Tr/K Cl [Augmentin - 500Mg 1 tab PO ONCE #1 tablet 06/20/17 Tablet] REVIEW OF SYSTEMS CONSTITUTIONAL: Absent: fever, chills, diaphoresis, generalized weakness, malaise, loss of appetite, weight change HEENT: Absent: rhinorrhea, nasal congestion, throat pain, throat swelling, difficulty swallowing, ear pain, eye pain, visual changes CARDIOVASCULAR: Absent: chest pain, syncope, palpitations, irregular heart rate, lightheadedness , peripheral edema RESPIRATORY: Absent: cough, shortness of breath, dyspnea with exertion, orthopnea, wheezing, stridor, hemoptysis GASTROINTESTINAL: Absent: abdominal pain, abdominal distension, nausea, vomiting, diarrhea, melena, hematochezia GENITOURINARY: Absent: dysuria, frequency, urgency, hesitancy, flank pain, genital pain MUSCULOSKELETAL: Absent: back pain, neck pain SKIN: Absent: rash, itching, pallor HEMATOLOGIC/IMMUNOLOGIC: Absent: easy bleeding, easy bruising, ENDOCRINE: Absent: unexplained weight gain, unexplained weight loss, NEUROLOGIC: Absent: headache, focal weakness or paresthesias, dizziness, unsteady gait, seizure, PSYCHIATRIC: Absent: anxiety, depression, PHYSICAL EXAMINATION Vital Signs - 24 hr 06/22/17 06/22/17 08:06 08:46 Temperature 97.9 F Pulse Rate 77 Respiratory 16 Rate Blood Pressure 151/75 O2 Sat by Pulse 100 2 L Oximetry (%) GENERAL: Awake, alert, and fully oriented, in no acute distress. HEAD: Normal with no signs of trauma. EARS, NOSE, THROAT: Ears normal, nares patent, oropharynx clear without exudates. dry mucous membranes. NECK: Normal range of motion, thick neck jvp cannot be appreciate LUNGS: Breath sounds equal, clear to auscultation bilaterally. No wheezes, and no crackles. No accessory muscle use. HEART: Regular rate and rhythm, normal S1 and S2 without murmur, ABDOMEN: Soft, nontender, not distended, normoactive bowel sounds, no guarding, no rebound, no masses. MUSCULOSKELETAL: Normal range of motion at all joints. No bony deformities or tenderness. No CVA tenderness. UPPER EXTREMITIES: 2+ pulses, warm, well-perfused. No cyanosis. No clubbing LOWER EXTREMITIES: DP present on both sides, PT not palpable, erythema and swelling present on 3rd, 4th and 5th toe left side, dry necrotic patch 1x1cm omn lateral aspect of little toe, serous discharge from suture site, degloving ok skin between fingers, tip of 3rd and 4 th toe cyanosed, NEUROLOGICAL: Cranial nerves II-XII intact. Normal speech. PSYCHIATRIC: Cooperative. Good eye contact. Appropriate mood and affect. SKIN: Warm, dry, Laboratory Results - last 24 hr 06/22/17 06/22/17 06/22/17 09:00 09:00 09:00 WBC 19.8 H D RBC 3.50 L Hgb 10.3 L D Hct 32.4 L D MCV 92.3 MCH 29.5 MCHC 31.9 L RDW 15.3 Plt Count 421 D MPV 8.9 D Neutrophils % 86.5 H Lymphocytes % 4.8 L D Monocytes % 5.5 Eosinophils % 1.9 Basophils % 1.3 Sodium 136 Potassium 4.2 Chloride 103 Carbon Dioxide 25 Anion Gap 8 BUN 43 H Creatinine 8.5 H* Creat Clearance w eGFR 6.54 Random Glucose 156 H Calcium 8.2 L Total Bilirubin 0.4 D AST 36 D ALT 21 Alkaline Phosphatase 59 Creatine Kinase 59 Troponin I 0.03 D B-Natriuretic Peptide 75314.03 H Total Protein 7.0 Albumin 2.5 L ASSESSMENT/PLAN: This is a 56 yo M w PMH of ESRD (on HD TTS), NIDDM, PVD, OM, CVAx2 (w/LLE residual weakness), DM, HTN, who was sent to ER from HD due to syncopal episode. Found to have gangrene of toes and leucocytosis. Syncope: postural hypotension vs arrhythmia vs tia vs non convulsive seizers now no confusion, awake and alert. Ct head, carotid Doppler, ECHO lipid profile orthostatic vitals. fall risk precautions. cardiac monitoring. EKG: no change from last ekg. cardiology consult: Follows dr caputo. get eeg Diabetic foot: wet gangrene with cyanosis of tips last wound culture shows esbl got zosyn and vano in ed will start him on meropenem and vanco id consult podiatry consult vascular surgery consult xray foot. he also gets hyperbaric oxygen therapy: last time was yesterday. Biopsy report from last amputation: no ostomilitis, daily dressing. clean legs with luke warm water and apply moisturizer arterial doppler CKD continue with phoslo vit d3 nephrology consult gets HD on T, Th, sat didn't get HD today. continue torsemide 80 daily DM BGM monitoring sliding scale HTN continue cavedilol GERD: continue omeprazol Constipation; continue miralex and colace. HLD atorvaststin 80mg fluid; orally allowed electrolyte: in morning. nutrition: diabetic and renal diet dvt pro: heparin sq gi pro: omeprazole dispo: tele. Visit type - Emergency Visit Emergency Visit: Yes ED Registration Date: 06/22/17 Care time: The patient presented to the Emergency Department on the above date and was hospitalized for further evaluation of their emergent condition. - New Patient This patient is new to me today: Yes Date on this admission: 06/22/17 - Critical Care Critical Care patient: No Hospitalist Screening - Colonoscopy Questionnaire Colonoscopy Questionnaire: Colonoscopy Questionnaire - Patient: 50 - 75 years old and never had a screening colonoscopy: Unknown History of colon or rectal polyps, or CA: Unknown History of IBD, Crohn's disease or UC: Unknown History of abdominal radiation therapy as a child: Unknown - Relative: 1 with colon or rectal CA, or polyps at age 60 or younger: Unknown Colon or rectal CA diagnosed at age 45 or younger: Unknown Multiple relatives with colon or rectal CA: Unknown - Outcome: Screening Result: Negative Screen
[2017-06-22] MEDS: CALCIUM ACETATE 667 MG CAPSULE (FP) PO SCH ×2 (12:00→17:35)
--- NOTE | 2017-06-22 12:09 | CONSULT ---
Consult Consult Specialty:: Nephrology Reason for Consultation:: ESRD - History of Present Illness Chief Complaint: syncope History of Present Illness: Pt is a 56 year old male with pmhx of ESRD on HD who was sent in from HD for an episode of syncope. Pt has gotten about 30 minutes of HD when he passed out. Staff could not wake him up for about 10 minutes. He was rinsed back and sent to the ER. He is now awake and alert. He does not remember the episode. He denies chest pain or palpitations. He denies fever or chills. - History Source History Provided By: Patient - Past Medical History [employer] G[employer]GER: Yes: CVA Cardio/Vascular: Yes: HTN, Hyperlipdemia Pulmonary: Yes: Sleep Apnea Gastrointestinal: Yes: GERD, Other (obesity) Renal/: Yes: Renal Failure, Renal Inusuff, Hemodialysis, Other Endocrine: Yes: Diabetes Mellitus - Past Surgical History Past Surgical History: Yes: AV Fistula/Graft - Alcohol/Substance Use Hx Alcohol Use: No - Smoking History Smoking history: Never smoked Have you smoked in the past 12 months: No Aproximately how many cigarettes per day: 0 - Social History ADL: Independent History of Recent Travel: No Home Medications - Allergies Allergies/Adverse Reactions: Allergies Allergy/AdvReac Type Severity Reaction Status Date / Time fish derived Allergy Severe Hives Verified 06/10/17 11:55 Shellfish Allergy Severe Verified 06/10/17 11:55 sulfamethoxazole Allergy Severe Swelling Verified 06/10/17 11:55 [From Bactrim DS] trimethoprim Allergy Severe Swelling Verified 06/10/17 11:55 [From Bactrim DS] - Home Medications Home Medications: Ambulatory Orders Omeprazole [Prilosec (RX)] 20 mg PO DAILY 08/13/14 Atorvastatin Ca [Lipitor] 80 mg PO HS 05/24/16 Carvedilol 12.5 mg PO BID 05/24/16 Ferrous Sulfate [Feosol] 1 tab PO DAILY 08/02/16 Albuterol Sulfate [Proair Respiclick] 90 mcg IH BID 11/13/16 Cholecalciferol (Vitamin D3) [Vitamin D3] 2,000 unit PO DAILY 11/13/16 Aspirin [ASA -] 81 mg PO DAILY #30 tab.chew 11/15/16 Glipizide 5 mg PO BID 04/19/17 Pregabalin [Lyrica -] 75 mg PO DAILY MDD 50 mg 04/19/17 Calcium Acetate [Phoslo -] 1,334 mg PO TIDCM capsule 04/27/17 Collagenase Clostridium Hist. [Santyl -] 1 applic TP DAILY #1 tube 04/27/17 Docusate Sodium [Colace -] 100 mg PO TID PRN #90 capsule 04/27/17 Polyethylene Glycol 3350 [Miralax 119 gm Btl -] 17 gm PO DAILY bottle 04/27/17 Torsemide 80 mg PO DAILY #120 tablet 04/27/17 Lorazepam [Ativan] 2 mg PO DAILY #30 tablet MDD 1 06/01/17 Amox-Tr/K Cl [Augmentin - 500Mg Tablet] 1 tab PO ONCE #1 tablet 06/20/17 Family Disease History - Family Disease History Family History: Denies Review of Systems - Review of Systems Constitutional: denies: Chills, Fever Eyes: reports: No Symptoms HENT: reports: No Symptoms Neck: reports: No Symptoms Cardiovascular: denies: Shortness of Breath Respiratory: denies: Cough Gastrointestinal: reports: No Symptoms Genitourinary: reports: No Symptoms Musculoskeletal: reports: No Symptoms Integumentary: reports: Erythema, Other (around ampuation site of toe) Neurological: reports: Change in LOC Hematology/Lymphatic: reports: No Symptoms Psychiatric: reports: No Symptoms Physical Exam Vital Signs: Vital Signs Temperature 98.0 F 06/22/17 11:52 Pulse Rate 65 06/22/17 11:52 Respiratory Rate 16 06/22/17 11:52 Blood Pressure 102/56 06/22/17 11:52 O2 Sat by Pulse Oximetry (%) 100 06/22/17 11:52 Constitutional: Yes: Calm Eyes: Yes: Conjunctiva Clear HENT: Yes: Atraumatic Cardiovascular: Yes: S1, S2 Gastrointestinal: Yes: Soft, Abdomen, Obese Renal/: Yes: WNL Extremities: Yes: WNL Edema: Yes Edema: LLE: 1+, RLE: 1+ Wound/Incision: Yes: Open to air Neurological: Yes: Oriented Psychiatric: Yes: Oriented Labs: CBC, BMP 06/22/17 09:00 06/22/17 09:00 Problem List - Problems (1) ESRD (end stage renal disease) Code(s): N18.6 - END STAGE RENAL DISEASE (2) Gangrene of toe of left foot Code(s): I96 - GANGRENE, NOT ELSEWHERE CLASSIFIED Assessment/Plan Current Medications Generic Name Dose Route Start Last Admin Trade Name Freq PRN Reason Stop Dose Admin Albuterol Sulfate 1 amp 06/22/17 20:00 Ventolin 0.083% Nebulizer Soln - NEB RBID [place] Aspirin 81 mg 06/23/17 10:00 Asa - PO DAILY [facility] Atorvastatin Calcium 80 mg 06/22/17 22:00 Lipitor - PO HS [facility] Calcium Acetate 1,334 mg 06/22/17 12:00 Phoslo - PO TIDCM [facility] Carvedilol 12.5 mg 06/22/17 22:00 Coreg - PO BID [facility] Cholecalciferol 2,000 unit 06/23/17 10:00 Vitamin D3 - PO DAILY [facility] Collagenase 1 applic 06/23/17 10:00 Santyl - TP DAILY [facility] Docusate Sodium 100 mg 06/22/17 11:37 Colace - PO TID PRN CONSTIPATION Ferrous Sulfate 325 mg 06/23/17 10:00 Feosol - PO DAILY [facility] Heparin Sodium (Porcine) 5,000 unit 06/22/17 14:00 Heparin - SQ TID [facility] Vancomycin HCl 1,500 mg/ 500 mls @ 250 mls/hr 06/22/17 14:15 Dextrose IVPB 06/22/17 16:14 ONCE ONE Meropenem 500 mg/ Dextrose 100 mls @ 200 mls/hr 06/22/17 22:00 IVPB BID [facility] Insulin Aspart 1 vial 06/22/17 16:30 Novolog Vial Sliding Scale - SQ ACHS [facility] Protocol Lorazepam 2 mg 06/23/17 10:00 Ativan - PO DAILY [facility] Pantoprazole Sodium 20 mg 06/23/17 10:00 Protonix - PO DAILY [facility] Polyethylene Glycol 17 gm 06/23/17 10:00 Miralax (For Daily Use) - PO DAILY [facility] Pregabalin 75 mg 06/23/17 10:00 Lyrica - PO DAILY [facility] Torsemide 80 mg 06/23/17 10:00 Demadex - PO DAILY [facility] Impression 1. ESRD 2. anemia 3. HTN 4. morbid obesity 5. CVA 6. hyperlipidemia 7. proteinuria - nephrotic 8. PVD 9. lower ext gangrene 10. syncope Plan - check ct head - discussed with medical team - cardio eval - neuro eval - will evaluate for HD tomorrow - labs reviewed - cont abx - ID eval - send cultures Dr Win
--- NOTE | 2017-06-22 13:17 | PN ---
Progress Note (short form) - Note Progress Note: ID Full noted dictated Admitted for syncope Incidental wet gangrene left foot following recent amputation toe Selected Entries 06/22/17 08:06 Temperature 97.9 F Pulse Rate 77 Blood Pressure 151/75 O2 Sat by Pulse 100 Oximetry (%) Weight 360 lb Microbiology 06/12/17 15:50 Wound Gram Stain - Final 06/12/17 15:50 Wound Wound Culture - Final Escherichia Coli Esbl Shipwright Supervisor 06/12/17 15:50 Tissue-Other Gram Stain - Final 06/12/17 15:50 Tissue-Other Anaerobic Culture - Final Escherichia Coli Esbl Shipwright Supervisor NO ANAEROBES WERE ISOLATED Laboratory Tests 06/22/17 06/22/17 06/22/17 09:00 09:00 09:00 WBC 19.8 H D Hgb 10.3 L D Hct 32.4 L D Plt Count 421 D AST 36 D ALT 21 Alkaline Phosphatase 59 Troponin I 0.03 D Assessment wet gangrene amputation site with ischemia of adjacent toe Leukocytosis ESRD Syncope History of ESBL wound culture Plan Surgical follow up Vancomycin 2 grs initially Agree Meropenem 500mg bid Isolate ALICIA Campbell MD
--- NOTE | 2017-06-22 13:28 | PN ---
Teaching Attending Note Name of Resident: Dallin High ATTENDING PHYSICIAN STATEMENT I saw and evaluated the patient. I reviewed the resident's note and discussed the case with the resident. I agree with the resident's findings and plan as documented. SUBJECTIVE: CC: Syncope HPI: 56 y/o man with h/o DM , ESRD, on HD TTS, PVD, OM, CVA, morbid obesity s/ p gastric sleeve , HTN, anemia, anemia, HLP, recent admission for L 2nd toe infection s/p amputation, who presented due syncope during HD , and was found to have L 3rd and 4th toe discoloration and erythema. during last admission , he was treated with vanc/zosyn , had amputation and then dc to rehab on no abx. wound cx after then grew ESBL E coli and path came out with clean bone margins. he went to rehab, on 06/16, wound was changed only once, dc form rehab 06/20. saw Podiatry on 06/20 , received Augmentin yesterday and was supposed to receive vanco in HD today. in HD and after 20 min of treatment, he had LOC. he remembers feeling dizzy, but no CP o SOB or palpitations before or after. per HD RN he had LOC , that lasted 10 min , during which his VS were NL. he woke up and was confused. in ambulance he realized his surrounding . denies any SANON , CP , palpitations or CP in ambulance. in ER he received vanco and zosyn. Cxray and EKG were done . OBJECTIVE: NAD , awake , alert and oriented x3 HEENT: no JVD, MMM, no facial droop, EOMI, round equal pupils, L carotid bruit vs radiation of L fistula bruit is heard . CV: RRR, no MRG Lungs : CTAB Abd: obese, soft, NT, ND ,NL B S Ext: erythema, thick skin with chronic changes seen on legs . 1 cm clean ulcer on R lateral mid [place]. R foot with no skin break down, no fungal infectio. L foot with s/p 2nd toe ampuation with stitches in surgical bed, erythema on 3rdm and 4th toes, with purpulish discoloration of the tips. whitish discoloration under skin on 3,4,5th MTP levels, no pus expressed on squeezing. DP 2+ b/l per resident , 1+ on R and not flet on L on my exam . PT not felt b/ l no gas under skin ASSESSMENT AND PLAN: 56 y/o man with h/o DM , ESRD, on HD TTS, PVD, OM, CVA, morbid obesity s/p gastric sleeve , HTN, anemia, anemia, HLP, recent admission for L 2nd toe infection s/p amputation, who presented due syncope during HD , and was found to have L 3rd and 4th toe discoloration and erythema. 1- Syncope: no clear etiology, but patient was not hypotensive during LOC. possible non convulsive seizure given confusion after episode. possible prolonged arrhythmias . unlikely stroke. possible TIA EKG with L axis , no acute ischemic changes . need to r/o ACS - check echo - tele - EEG - carotid doppler, bruit heard over L carotid - repeat trop 2- Leukocytosis and L 3rd, 4th toe cellulitis . possible dry gangrene last wound cx with ESBL E coli from wound . resection margins were clean . - will give meropenem for now - received vanco in ER - send wound cx - follow blood cx - ID consult - arterial doppler and vascular consult - podiatry consult 3- DM : hold glipizide and add ssi 4- HTN: cont carvedolol 5- ESRD: consult renal to decide on next HD cont torsemide dispo : HLOC
--- NOTE | 2017-06-22 13:33 | CON.CARD ---
Consult Consult Specialty:: cardiology Referred by:: Jacobo Saini Reason for Consultation:: Syncope - History of Present Illness Chief Complaint: Syncope History of Present Illness: The patient is a 56-year-old morbidly obese man, status post gastric bypass, history of diabetes, hypertension, hyperlipidemia, stroke with left-sided weakness, end-stage renal disease on hemodialysis, peripheral vascular disease, status post left toe amputation, now presenting with syncope while undergoing dialysis. The patient stated that he went to the dialysis center in his usual state of health. He denied chest pains, shortness of breath, palpitations at rest or while walking prior to dialysis. Approximately 20-30 minutes into the dialysis, the patient began experiencing lightheadedness, diaphoresis, and shortly after lost consciousness. The patient slowly regained his consciousness. He was referred to the emergency room. Is currently comfortable and symptom free. He reports no symptoms. 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: CVA Cardio/Vascular: Yes: HTN, Hyperlipdemia Pulmonary: Yes: Sleep Apnea Gastrointestinal: Yes: GERD, Other (obesity) Renal/: Yes: Renal Failure, Renal Inusuff, Hemodialysis, Other Endocrine: Yes: Diabetes Mellitus - Past Surgical History Past Surgical History: Yes: AV Fistula/Graft - Alcohol/Substance Use Hx Alcohol Use: No - Smoking History Smoking history: Never smoked Have you smoked in the past 12 months: No Aproximately how many cigarettes per day: 0 - Social History ADL: Independent History of Recent Travel: No Home Medications - Allergies Allergies/Adverse Reactions: Allergies Allergy/AdvReac Type Severity Reaction Status Date / Time fish derived Allergy Severe Hives Verified 06/10/17 11:55 Shellfish Allergy Severe Verified 06/10/17 11:55 sulfamethoxazole Allergy Severe Swelling Verified 06/10/17 11:55 [From Bactrim DS] trimethoprim Allergy Severe Swelling Verified 06/10/17 11:55 [From Bactrim DS] - Home Medications Home Medications: Ambulatory Orders Omeprazole [Prilosec (RX)] 20 mg PO DAILY 08/13/14 Atorvastatin Ca [Lipitor] 80 mg PO HS 05/24/16 Carvedilol 12.5 mg PO BID 05/24/16 Ferrous Sulfate [Feosol] 1 tab PO DAILY 08/02/16 Albuterol Sulfate [Proair Respiclick] 90 mcg IH BID 11/13/16 Cholecalciferol (Vitamin D3) [Vitamin D3] 2,000 unit PO DAILY 11/13/16 Aspirin [ASA -] 81 mg PO DAILY #30 tab.chew 11/15/16 Glipizide 5 mg PO BID 04/19/17 Pregabalin [Lyrica -] 75 mg PO DAILY [facility] 50 mg 04/19/17 Calcium Acetate [Phoslo -] 1,334 mg PO TIDCM capsule 04/27/17 Collagenase Clostridium Hist. [Santyl -] 1 applic TP DAILY #1 tube 04/27/17 Docusate Sodium [Colace -] 100 mg PO TID PRN #90 capsule 04/27/17 Polyethylene Glycol 3350 [Miralax 119 gm Btl -] 17 gm PO DAILY bottle 04/27/17 Torsemide 80 mg PO DAILY #120 tablet 04/27/17 Lorazepam [Ativan] 2 mg PO DAILY #30 tablet MDD 1 06/01/17 Amox-Tr/K Cl [Augmentin - 500Mg Tablet] 1 tab PO ONCE #1 tablet 06/20/17 Review of Systems - Review of Systems Constitutional: reports: No Symptoms Eyes: reports: No Symptoms HENT: reports: No Symptoms Neck: reports: No Symptoms Cardiovascular: reports: No Symptoms Respiratory: reports: No Symptoms Gastrointestinal: reports: No Symptoms Genitourinary: reports: No Symptoms Breasts: reports: No Symptoms Reported Musculoskeletal: reports: No Symptoms Integumentary: reports: No Symptoms Neurological: reports: No Symptoms Endocrine: reports: No Symptoms Hematology/Lymphatic: reports: No Symptoms Psychiatric: reports: No Symptoms Vital Signs: Vital Signs Temperature 98.0 F 06/22/17 11:52 Pulse Rate 65 06/22/17 11:52 Respiratory Rate 16 06/22/17 11:52 Blood Pressure 102/56 06/22/17 11:52 O2 Sat by Pulse Oximetry (%) 100 06/22/17 11:52 Constitutional: Yes: No Distress, Calm, Obese Eyes: Yes: WNL, Conjunctiva Clear, EOM Intact HENT: Yes: WNL, Atraumatic, Normocephalic Neck: Yes: WNL Respiratory: Yes: WNL, Regular, CTA Bilaterally Gastrointestinal: Yes: WNL, Normal Bowel Sounds, Soft Renal/: Yes: WNL Cardiovascular: Yes: WNL, Regular Rate and Rhythm JVD: No Carotid Bruit: No PMI: Non-Displaced Heart Sounds: Yes: S1, S2 Murmur: Yes: Systolic Murmur, Grade 2 Musculoskeletal: Yes: WNL Extremities: Yes: Amputation Edema: Yes Edema: LLE: 1+, RLE: 1+ Peripheral Pulses: 1+ Left Carotid, 1+ Right Carotid, 1+ Left Femoral, 1+ Right Femoral, 1+ Left Popliteal, 1+ Right Popliteal, 1+ Left Doralis Pedis, 1+ Right Dorsalis Pedis Integumentary: Yes: WNL Neurological: Yes: Other (Left lower extremity weakness) - Other Data Labs, Other Data: CBC, BMP 06/22/17 09:00 06/22/17 09:00 Troponin, BNP 06/22/17 09:00 Troponin I 0.03 D B-Natriuretic Peptide 38021.03 H Troponin, BNP 06/22/17 09:00 Troponin I 0.03 D B-Natriuretic Peptide 42763.03 H Assessment/Plan 56-year-old morbidly obese man, status post bariatric surgery, we've a history of diabetes, hypertension, hyperlipidemia, stroke with left-sided weakness, end- stage renal disease on hemodialysis, peripheral vascular disease and toe amputation, now admitted with syncope while undergoing dialysis. There is no evidence of ischemia nor acute coronary syndrome. The patient is in sinus rhythm. There is no CHF. Suspect the blood pressure drop and a vagal event while undergoing dialysis. Doubt arrhythmia related. Would monitor for further 24 hours. Please arrange for an echocardiogram. Continue home medications. We'll follow results.
--- NOTE | 2017-06-22 14:07 | CONS ---
INFECTIOUS DISEASE CONSULTATION DATE OF CONSULTATION: 06/22/2017 HISTORY OF PRESENT ILLNESS: This is a 56-year-old, morbidly obese male with end-stage renal disease and diabetes and hypertension, who is admitted after sustaining a syncopal episode today while getting dialysis in which he was unconscious during dialysis and apparently woke up in the ambulance. He may have been unresponsive for approximately 10 minutes, and his vital signs were normal along with his blood sugar which was found to be 140. The patient is known to me in that he was only recently discharged from [facility] after he had an amputation of a left 2nd toe by Dr. Alcantara. We had seen him during that admission, and our last note on June 15 indicated that he was stable postoperatively and ready to be discharged to the group home from infectious disease standpoint. Antibiotics were stopped at that time. A wound culture on June 12 from surgery was positive for an ESBL E. coli. The patient is afebrile here. While he is admitted for syncope, an incidental finding is that he has now gangrene of the left 3rd toe with what appears to be a wet gangrene of the left at the amputation site. He denies any fever or chills. The patient has been receiving hyperbaric oxygen for wound healing. PAST MEDICAL HISTORY: As noted above. MEDICATIONS: Include omeprazole, Lipitor, carvedilol, iron, aspirin, glipizide, calcium. ALLERGIES: BACTRIM and SHELLFISH. SOCIAL HISTORY: Former smoker, gave this up years ago. Also, gave up alcohol. No history of substance abuse. HIV status negative. FAMILY HISTORY: Noncontributory. REVIEW OF SYSTEMS: All systems reviewed and noncontributory. PHYSICAL EXAMINATION: Vital Signs: Temperature was 97.9, pulse 77, respirations 16, blood pressure 150/75. Neck: Supple. Lungs: Clear to P&A. Heart: S1, S2. Regular rhythm without murmur. Abdomen: Obese, soft. Normoactive bowel sounds. No guarding or rebound. Extremities: Revealed ischemia, dry gangrene of the left 3rd toe. There was an area of wet necrotic tissue at the site of the amputation with some serous drainage noted along the suture line. DIAGNOSTIC DATA: The white count is 19.8, hemoglobin 10.3, platelets of 421. Sedimentation rate of 105. Chemistries consistent with end-stage renal disease. ASSESSMENT: A 56-year-old male with end-stage renal disease, diabetes, morbid obesity, and hypertension, admitted now for evaluation of syncope, possibly vasovagal related to dialysis. Incidentally noted is evolving gangrene of the left 3rd toe adjacent to the amputation site with what appears to be soft tissue infection with drainage at the amputation site, history of an extended spectrum beta-lactamase June 12 from wound cultures. Surgical pathology report dated June 12 was reviewed once again with no evidence of osteomyelitis identified at that time. At this point, would dose him appropriately for his weight with 2 g of vancomycin initially. Agree with the addition of meropenem based on his history of an ESBL. Dr. Alcantara of Podiatry to see in consultation. GRACE BORGES M.D. [id number]
[2017-06-22] MEDS ORDERED: VANCOMYCIN 1,500 MG in DEXTROSE 5%-WATER - 500 ML IVPB ONE (14:15)
[2017-06-22] MEDS: HEPARIN NA (PORCINE) 5,000 UNITS/ML 1ML VIAL SQ SCH ×2 (14:34→22:14)
[2017-06-22] MEDS ORDERED: PIPERACILLIN/TAZOB 3.375 GM 3.375 GM in DEXTROSE 5%-WATER - 50 ML IVPB SCH (18:00)
[2017-06-22] MEDS ORDERED: MEROPENEM 1 GM in DEXTROSE 5%-WATER - 100 ML IVPB SCH (18:00)
[2017-06-22] MEDS: INSULIN SLIDING SCALE (NOVOLOG) 1 VIAL SQ SCH ×2 (18:43→22:21)
[2017-06-22] MEDS: ALBUTEROL SO4 0.083% IH SOL 2.5 MG/3 ML VIAL.NEB. NEB SCH (20:56)
[2017-06-22] MEDS ORDERED: MEROPENEM 500 MG VIAL (RESTRICTED TO ID) IVPB SCH (22:00)
[2017-06-22] MEDS: ATORVASTATIN CA 80 MG TABLET (FP) PO SCH (22:14)
[2017-06-22] MEDS: CARVEDILOL 12.5 MG TABLET (FP) PO SCH (22:14)
[2017-06-22] MEDS: MEROPENEM 500 MG in DEXTROSE 5%-WATER - 100 ML IVPB SCH (22:14)
[2017-06-23] MEDS: INSULIN SLIDING SCALE (NOVOLOG) 1 VIAL SQ SCH ×3 (06:04→22:42)
[2017-06-23] MEDS: HEPARIN NA (PORCINE) 5,000 UNITS/ML 1ML VIAL SQ SCH ×3 (06:04→22:39)
[2017-06-23 06:55] LABS: BASO % 1.3 % (0-2.0); EOS % 4.2 % (0-4.5); HEMOGLOBIN 8.6 GM/dL (11.7-16.9); MCH 30.2 pg (25.7-33.7); MEAN CELL VOLUME 91.4 fl (80-96); MEAN PLT VOLUME 9.1 fl (7.5-11.1); MONO % 8.2 % (3.8-10.2); NEUT % 73.3 % (42.8-82.8); PLATELET COUNT 365 K/MM3 (134-434); RBC 2.84 M/mm3 (4.00-5.60); RDW 15.4 % (11.9-15.9); WHITE BLOOD COUNT 9.4 K/mm3 (4.0-10.0)
[2017-06-23 07:06] LABS: ALBUMIN 2.1 g/dl (3.4-5.0); ANION GAP 11 (8-16); BLOOD UREA NITROGEN 61 mg/dL (7-18); CALCIUM 7.8 mg/dL (8.5-10.1); CHLORIDE 104 mmol/L (98-107); CHOLESTEROL 68 mg/dL (50-200); CO2 23 mmol/L (21-32); GLUCOSE,RANDOM 108 mg/dL (74-106); MAGNESIUM 2.1 mg/dL (1.8-2.4); PHOSPHOROUS 8.5 mg/dL (2.5-4.9); POTASSIUM 4.3 mmol/L (3.5-5.1); SGOT/AST 25 U/L (15-37); SGPT/ALT 18 U/L (12-78); SODIUM 138 mmol/L (136-145); TRIGLYCERIDES 67 mg/dL (35-160)
[2017-06-23 07:11] LABS: INR 1.26 (0.82-1.09); PROTHROMBIN TIME (PATIENT) 14.2 SEC (9.98-11.88)
[2017-06-23 07:14] LABS: ALK PHOS 53 U/L (45-117); BILIRUBIN,TOTAL 0.2 mg/dL (0.2-1.0); HDL CHOLESTEROL 29 mg/dL (40-60)
[2017-06-23 07:16] LABS: CREATININE 10.2 mg/dL (0.7-1.3)
[2017-06-23] MEDS: ALBUTEROL SO4 0.083% IH SOL 2.5 MG/3 ML VIAL.NEB. NEB SCH ×2 (07:33→20:57)
[2017-06-23] MEDS: CALCIUM ACETATE 667 MG CAPSULE (FP) PO SCH ×3 (08:21→18:37)
[2017-06-23] MEDS ORDERED: SODIUM CHLORIDE 250 ML IV PRN (09:49)
[2017-06-23] MEDS ORDERED: PIPERACILLIN/TAZOB 3.375 GM 3.375 GM in DEXTROSE 5%-WATER - 50 ML IVPB SCH (10:00)
[2017-06-23] MEDS: ASPIRIN 81 MG CHEWABLE TABLETS PO SCH (10:23)
[2017-06-23] MEDS: LORazepam 1 MG TABLET PO SCH ×2 (10:24→16:00)
[2017-06-23] MEDS: TORSEMIDE 20 MG TABLET (FP) PO SCH (10:24)
[2017-06-23] MEDS: CARVEDILOL 12.5 MG TABLET (FP) PO SCH ×2 (10:24→23:10)
[2017-06-23] MEDS: PREGABALIN 75 MG CAPSULE PO SCH (10:25)
[2017-06-23] MEDS: FERROUS SO4 325 MG TABLET (FP) PO SCH (10:25)
[2017-06-23] MEDS: MEROPENEM 500 MG in DEXTROSE 5%-WATER - 100 ML IVPB SCH ×2 (10:26→22:39)
[2017-06-23] MEDS: POLYETHYLENE GLYCOL 3350 119 GM BTL PO SCH (10:27)
[2017-06-23 10:37] LABS: URINE APPEARANCE SLCLOUDY; URINE BILIRUBIN NEGATIVE (<2.0 mg/dL); URINE COLOR LTYELLOW; URINE GLUCOSE (UA) 2+ (NEGATIVE); URINE KETONE NEGATIVE (NEGATIVE); URINE NITRITE NEGATIVE (NEGATIVE); URINE UROBILINOGEN NEGATIVE mg/dL (0.2-1.0)
[2017-06-23 10:39] LABS: URINE LEUK ESTERASE 1+ (NEGATIVE); URINE PROTEIN 2+ (NEGATIVE)
[2017-06-23 10:41] LABS: EPI CELLS RARE /HPF (FEW); URINE BACTERIA RARE /hpf (NONE SEEN); YEAST RARE
--- NOTE | 2017-06-23 11:19 | PN ---
Progress Note, Physician Chief Complaint: No complaints today No chest pain, sob, or palpitations No near syncope Tele: sinus with no events History of Present Illness: The patient is a 56-year-old morbidly obese man, status post gastric bypass, history of diabetes, hypertension, hyperlipidemia, stroke with left-sided weakness, end-stage renal disease on hemodialysis, peripheral vascular disease, status post left toe amputation, now presenting with syncope while undergoing dialysis. The patient stated that he went to the dialysis center in his usual state of health. He denied chest pains, shortness of breath, palpitations at rest or while walking prior to dialysis. Approximately 20-30 minutes into the dialysis, the patient began experiencing lightheadedness, diaphoresis, and shortly after lost consciousness. The patient slowly regained his consciousness. He was referred to the emergency room. Is currently comfortable and symptom free. He reports no symptoms. - Current Medication List Current Medications: Active Medications Albuterol Sulfate (Ventolin 0.083% Nebulizer Soln -) 1 amp NEB RBID [facility] Last Admin: 06/23/17 07:33 Dose: 1 amp Aspirin (Asa -) 81 mg PO DAILY [facility] Atorvastatin Calcium (Lipitor -) 80 mg PO HS [facility] Last Admin: 06/22/17 22:14 Dose: 80 mg Calcium Acetate (Phoslo -) 1,334 mg PO TIDCM [facility] Last Admin: 06/22/17 17:35 Dose: 1,334 mg Carvedilol (Coreg -) 12.5 mg PO BID [facility] Last Admin: 06/22/17 22:14 Dose: 12.5 mg Cholecalciferol (Vitamin D3 -) 2,000 unit PO DAILY [facility] Collagenase (Santyl -) 1 applic TP DAILY [facility] Docusate Sodium (Colace -) 100 mg PO TID PRN PRN Reason: CONSTIPATION Ferrous Sulfate (Feosol -) 325 mg PO DAILY [facility] Heparin Sodium (Porcine) (Heparin -) 5,000 unit SQ TID [facility] Last Admin: 06/23/17 06:04 Dose: 5,000 unit Meropenem 500 mg/ Dextrose 100 mls @ 200 mls/hr IVPB BID [facility] Last Admin: 06/22/17 22:14 Dose: 200 mls/hr Sodium Chloride (Normal Saline -) 250 mls @ 3,000 mls/hr IV PRN PRN PRN Reason: Hypotension during Dialysis Stop: 06/24/17 09:49 Insulin Aspart (Novolog Vial Sliding Scale -) 1 vial SQ ACHS [facility] PRN Reason: Protocol Last Admin: 06/23/17 06:04 Dose: Not Given Lorazepam (Ativan -) 2 mg PO DAILY [facility] Pantoprazole Sodium (Protonix -) 20 mg PO DAILY [facility] Polyethylene Glycol (Miralax (For Daily Use) -) 17 gm PO DAILY [facility] Pregabalin (Lyrica -) 75 mg PO DAILY [facility] Torsemide (Demadex -) 80 mg PO DAILY [facility] - Objective Vital Signs: Vital Signs Temperature 98.4 F 06/23/17 06:00 Pulse Rate 65 06/23/17 06:00 Respiratory Rate 20 06/23/17 06:00 Blood Pressure 125/61 06/23/17 06:00 O2 Sat by Pulse Oximetry (%) 99 06/22/17 22:00 Constitutional: Yes: No Distress Neck: Yes: Supple Cardiovascular: Yes: Regular Rate and Rhythm. No: JVD, Murmur Respiratory: Yes: CTA Bilaterally Gastrointestinal: Yes: Normal Bowel Sounds, Soft Edema: LLE: 1+, RLE: 1+ Labs: CBC, BMP 06/23/17 06:25 06/23/17 06:25 INR, PTT INR 1.26 (0.82-1.09) H 06/23/17 06:25 Assessment/Plan The patient is a 56-year-old morbidly obese man, status post gastric bypass, history of diabetes, hypertension, hyperlipidemia, stroke with left-sided weakness, end-stage renal disease on hemodialysis, peripheral vascular disease, status post left toe amputation, now presenting with syncope while undergoing dialysis. -remains sinus with no events on tele Echocardiogram with mild lvh, nl lvef, and no significant valve disease Syncope event likely was related to drop in bp during dialysis/fluid shift/lytes BP now normotensive. If need to in dialysis can lower bp meds in future if needed. Please call back if needed. Will sign off.
[2017-06-23] MEDS: PANTOPRAZOLE 20 MG TABLET (FP) PO SCH (11:27)
[2017-06-23] MEDS: COLLAGENASE CLOSTRIDIUM HIST. 30 GRAMS TUBE TP SCH (11:28)
[2017-06-23] MEDS: CHOLECALCIFEROL (VITAMIN D3) 1,000 UNIT TABLET (FP) PO SCH (11:28)
--- NOTE | 2017-06-23 13:13 | PN ---
Progress Note (short form) - Note Progress Note: gangrene of the left foot-3rd toe, s/p amputation of the second toe alert, NAD Vital Signs Period Temp Pulse Resp BP Sys/Leon Pulse Ox Last 24 Hr 97.5 F-99.0 F 60-72 18-20 114-142/52-67 99-99 cor-rrr lungs clear abd soft,nt ext +erythema with gangrene of the 3rd toe, fourth toe discolored CBC, BMP 06/23/17 06:25 06/23/17 06:25 Microbiology 06/22/17 09:00 Blood - Peripheral Venous Blood Culture - Preliminary NO GROWTH OBTAINED AFTER 24 HOURS, INCUBATION TO CONTINUE FOR 4 DAYS. 06/22/17 09:00 Blood - Peripheral Venous Blood Culture - Preliminary NO GROWTH OBTAINED AFTER 24 HOURS, INCUBATION TO CONTINUE FOR 4 DAYS. a/p daibetic foot infections s/p amputation second toe continue meropenem check vancomycin level esrd/hd obesity
--- NOTE | 2017-06-23 14:52 | PN ---
Physical Exam: SUBJECTIVE: Patient seen and examined No acute events overnight. Patient feels better this morning. OBJECTIVE: Vital Signs Period Temp Pulse Resp BP Sys/Leon Pulse Ox Last 24 Hr 97.5 F-99.0 F 60-72 18-20 114-142/52-67 99-99 GENERAL: Awake, alert, and fully oriented, in no acute distress. HEAD: Normal with no signs of trauma. EARS, NOSE, THROAT: Oropharynx clear without exudates. Moist mucous membranes. NECK: Normal range of motion LUNGS: Breath sounds equal, clear to auscultation bilaterally. No wheezes, and no crackles. No accessory muscle use. HEART: Regular rate and rhythm, normal S1 and S2 without murmur, ABDOMEN: Soft, nontender, not distended, normoactive bowel sounds, no guarding, no rebound, no masses. MUSCULOSKELETAL: Normal range of motion at all joints. No bony deformities or tenderness. No CVA tenderness. UPPER EXTREMITIES: 2+ pulses, warm, well-perfused. No cyanosis. No clubbing LOWER EXTREMITIES: Left: no DP/PT pulse, erythema and edema present. dry gangrene of 3rd , 4th, and 5th left toe. +stitches intact over 2nd left toe. NEUROLOGICAL: Cranial nerves II-XII intact. Normal speech. PSYCHIATRIC: Cooperative. Good eye contact. Appropriate mood and affect. SKIN: Warm, dry, Laboratory Results - last 24 hr 06/22/17 06/22/17 06/22/17 15:30 18:14 22:12 WBC RBC Hgb Hct MCV MCH MCHC RDW Plt Count MPV Neutrophils % Lymphocytes % Monocytes % Eosinophils % Basophils % PT with INR INR Sodium Potassium Chloride Carbon Dioxide Anion Gap BUN Creatinine Creat Clearance w eGFR POC Glucometer 170 147 Random Glucose Calcium Phosphorus Magnesium Total Bilirubin AST ALT Alkaline Phosphatase Creatine Kinase 35 L Troponin I 0.03 Total Protein Albumin Triglycerides Cholesterol Total LDL Cholesterol HDL Cholesterol Urine Color Urine Appearance Urine pH Ur Specific [place] Urine Protein Urine Glucose (UA) Urine Ketones Urine Blood Urine Nitrite Urine Bilirubin Urine Urobilinogen Ur Leukocyte Esterase Urine WBC (Auto) Urine RBC (Auto) Ur Epithelial Cells Urine Bacteria Urine Yeast 06/23/17 06/23/17 06/23/17 05:31 06:25 06:25 WBC 9.4 D RBC 2.84 L Hgb 8.6 L D Hct 26.0 L D MCV 91.4 MCH 30.2 MCHC 33.0 RDW 15.4 Plt Count 365 MPV 9.1 Neutrophils % 73.3 Lymphocytes % 13.0 D Monocytes % 8.2 Eosinophils % 4.2 D Basophils % 1.3 PT with INR 14.20 H INR 1.26 H Sodium Potassium Chloride Carbon Dioxide Anion Gap BUN Creatinine Creat Clearance w eGFR POC Glucometer 120 Random Glucose Calcium Phosphorus Magnesium Total Bilirubin AST ALT Alkaline Phosphatase Creatine Kinase Troponin I Total Protein Albumin Triglycerides Cholesterol Total LDL Cholesterol HDL Cholesterol Urine Color Urine Appearance Urine pH Ur Specific [place] Urine Protein Urine Glucose (UA) Urine Ketones Urine Blood Urine Nitrite Urine Bilirubin Urine Urobilinogen Ur Leukocyte Esterase Urine WBC (Auto) Urine RBC (Auto) Ur Epithelial Cells Urine Bacteria Urine Yeast 06/23/17 06/23/17 06:25 10:05 WBC RBC Hgb Hct MCV MCH MCHC RDW Plt Count MPV Neutrophils % Lymphocytes % Monocytes % Eosinophils % Basophils % PT with INR INR Sodium 138 Potassium 4.3 Chloride 104 Carbon Dioxide 23 Anion Gap 11 BUN 61 H D Creatinine 10.2 H* Creat Clearance w eGFR 5.28 POC Glucometer Random Glucose 108 H D Calcium 7.8 L Phosphorus 8.5 H D Magnesium 2.1 Total Bilirubin 0.2 D AST 25 D ALT 18 Alkaline Phosphatase 53 Creatine Kinase Troponin I Total Protein 6.0 L Albumin 2.1 L Triglycerides 67 Cholesterol 68 Total LDL Cholesterol 38 HDL Cholesterol 29 L Urine Color Ltyellow Urine Appearance Slcloudy Urine pH 6.0 Ur Specific [place] 1.012 Urine Protein 2+ H Urine Glucose (UA) 2+ H Urine Ketones Negative Urine Blood 1+ H Urine Nitrite Negative Urine Bilirubin Negative Urine Urobilinogen Negative Ur Leukocyte Esterase 1+ H Urine WBC (Auto) 23 Urine RBC (Auto) 4 Ur Epithelial Cells Rare Urine Bacteria Rare Urine Yeast Rare Active Medications Generic Name Dose Route Start Last Admin Trade Name Freq PRN Reason Stop Dose Admin Albuterol Sulfate 1 amp 06/22/17 20:00 06/23/17 07:33 Ventolin 0.083% Nebulizer Soln - NEB 1 amp RBID [facility] Administration Aspirin 81 mg 06/23/17 10:00 06/23/17 10:23 Asa - PO Not Given DAILY [facility] Atorvastatin Calcium 80 mg 06/22/17 22:00 06/22/17 22:14 Lipitor - PO 80 mg HS [facility] Administration Calcium Acetate 1,334 mg 06/22/17 12:00 06/23/17 12:06 Phoslo - PO Not Given TIDCM [facility] Carvedilol 12.5 mg 06/22/17 22:00 06/23/17 10:24 Coreg - PO Not Given BID [facility] Cholecalciferol 2,000 unit 06/23/17 10:00 06/23/17 11:28 Vitamin D3 - PO Not Given DAILY [facility] Collagenase 1 applic 06/23/17 10:00 06/23/17 11:28 Santyl - TP Not Given DAILY [facility] Docusate Sodium 100 mg 06/22/17 11:37 Colace - PO TID PRN CONSTIPATION Ferrous Sulfate 325 mg 06/23/17 10:00 06/23/17 10:25 Feosol - PO Not Given DAILY [facility] Heparin Sodium (Porcine) 5,000 unit 06/22/17 14:00 06/23/17 06:04 Heparin - SQ 5,000 unit TID [facility] Administration Meropenem 500 mg/ Dextrose 100 mls @ 200 mls/hr 06/22/17 22:00 06/23/17 10:26 IVPB Not Given BID [facility] Sodium Chloride 250 mls @ 3,000 mls/hr 06/23/17 09:49 Normal Saline - IV 06/24/17 09:49 PRN PRN Hypotension during Dialysis Insulin Aspart 1 vial 06/22/17 16:30 06/23/17 06:04 Novolog Vial Sliding Scale - SQ Not Given ACHS [facility] Protocol Lorazepam 2 mg 06/23/17 10:00 06/23/17 10:24 Ativan - PO Not Given DAILY [facility] Pantoprazole Sodium 20 mg 06/23/17 10:00 06/23/17 11:27 Protonix - PO Not Given DAILY [facility] Polyethylene Glycol 17 gm 06/23/17 10:00 06/23/17 10:27 Miralax (For Daily Use) - PO Not Given DAILY [facility] Pregabalin 75 mg 06/23/17 10:00 06/23/17 10:25 Lyrica - PO Not Given DAILY [facility] Torsemide 80 mg 06/23/17 10:00 06/23/17 10:24 Demadex - PO Not Given DAILY [facility] ASSESSMENT/PLAN: This is a 56 yo M w PMH of ESRD (on HD TTS), NIDDM, PVD, OM, CVAx2 (w/LLE residual weakness), DM, HTN, who was sent to ER from HD due to syncopal episode. Found to have gangrene of toes and leucocytosis. Syncope of unclear etiolkogy, postural hypotension vs arrhythmia vs tia vs non convulsive seizers now no confusion, awake and alert. No more episodes of syncope fall risk precautions. cardiac monitoring. EEG pending cardiology consult: Signed off case Echo and carotid doppler completed Diabetic foot ulcer: wet gangrene with cyanosis of tips Isolation precautions due to ESBL in previous wound cx Continue meropenem daily dressing. arterial doppler completed Vancomycin level with dialysis today Podiatry consult Vascular surgery consult id consult ESRD on HD continue with phoslo vit d3 nephrology consult gets HD on T, , sat Will get HD today continue torsemide 80 daily DM hold home medications BGM monitoring sliding scale HTN continue cavedilol GERD: continue omeprazole Constipation; continue miralex and colace. HLD Atorvaststin 80mg fluid; orally allowed electrolyte: monitor nutrition: diabetic and renal diet dvt pro: heparin sq gi pro: omeprazole dispo: telemetry monitoring Visit type - Emergency Visit Emergency Visit: Yes ED Registration Date: 06/22/17 Care time: The patient presented to the Emergency Department on the above date and was hospitalized for further evaluation of their emergent condition. - New Patient This patient is new to me today: No - Critical Care Critical Care patient: No
--- NOTE | 2017-06-23 15:51 | PN ---
Progress Note, Physician History of Present Illness: Pt seen and examined at bedside. He is awake and alert. He denies shortness of breath. He denies fevers or chills. - Current Medication List Current Medications: Active Medications Albuterol Sulfate (Ventolin 0.083% Nebulizer Soln -) 1 amp NEB RBID [facility] Last Admin: 06/23/17 07:33 Dose: 1 amp Aspirin (Asa -) 81 mg PO DAILY [facility] Last Admin: 06/23/17 10:23 Dose: Not Given Atorvastatin Calcium (Lipitor -) 80 mg PO HS [facility] Last Admin: 06/22/17 22:14 Dose: 80 mg Calcium Acetate (Phoslo -) 1,334 mg PO TIDCM [facility] Last Admin: 06/23/17 12:06 Dose: Not Given Carvedilol (Coreg -) 12.5 mg PO BID [facility] Last Admin: 06/23/17 10:24 Dose: Not Given Cholecalciferol (Vitamin D3 -) 2,000 unit PO DAILY [facility] Last Admin: 06/23/17 11:28 Dose: Not Given Collagenase (Santyl -) 1 applic TP DAILY [facility] Last Admin: 06/23/17 11:28 Dose: Not Given Docusate Sodium (Colace -) 100 mg PO TID PRN PRN Reason: CONSTIPATION Ferrous Sulfate (Feosol -) 325 mg PO DAILY [facility] Last Admin: 06/23/17 10:25 Dose: Not Given Heparin Sodium (Porcine) (Heparin -) 5,000 unit SQ TID [facility] Last Admin: 06/23/17 06:04 Dose: 5,000 unit Meropenem 500 mg/ Dextrose 100 mls @ 200 mls/hr IVPB BID [facility] Last Admin: 06/23/17 10:26 Dose: Not Given Sodium Chloride (Normal Saline -) 250 mls @ 3,000 mls/hr IV PRN PRN PRN Reason: Hypotension during Dialysis Stop: 06/24/17 09:49 Insulin Aspart (Novolog Vial Sliding Scale -) 1 vial SQ ACHS [facility] PRN Reason: Protocol Last Admin: 06/23/17 06:04 Dose: Not Given Lorazepam (Ativan -) 2 mg PO DAILY [facility] Last Admin: 06/23/17 10:24 Dose: Not Given Pantoprazole Sodium (Protonix -) 20 mg PO DAILY [facility] Last Admin: 06/23/17 11:27 Dose: Not Given Polyethylene Glycol (Miralax (For Daily Use) -) 17 gm PO DAILY [facility] Last Admin: 06/23/17 10:27 Dose: Not Given Pregabalin (Lyrica -) 75 mg PO DAILY [facility] Last Admin: 06/23/17 10:25 Dose: Not Given Torsemide (Demadex -) 80 mg PO DAILY [facility] Last Admin: 06/23/17 10:24 Dose: Not Given - Objective Vital Signs: Vital Signs Temperature 98.1 F 06/23/17 14:00 Pulse Rate 68 06/23/17 14:00 Respiratory Rate 06/23/17 06:00 Blood Pressure 138/69 06/23/17 14:00 O2 Sat by Pulse Oximetry (%) 99 06/22/17 22:00 Constitutional: Yes: Calm Eyes: Yes: Conjunctiva Clear HENT: Yes: Atraumatic Neck: Yes: Supple Cardiovascular: Yes: S1, S2 Respiratory: Yes: CTA Bilaterally Gastrointestinal: Yes: Normal Bowel Sounds, Soft, Abdomen, Obese Genitourinary: Yes: WNL Musculoskeletal: Yes: WNL Edema: Yes Edema: LLE: 1+, RLE: 1+ Integumentary: Yes: Venous Stasis Changes Wound/Incision: Yes: Dressing Dry and Intact Labs: CBC, BMP 06/23/17 06:25 06/23/17 06:25 INR, PTT INR 1.26 (0.82-1.09) H 06/23/17 06:25 Problem List - Problems (1) ESRD (end stage renal disease) Code(s): N18.6 - END STAGE RENAL DISEASE (2) Gangrene of toe of left foot Code(s): I96 - GANGRENE, NOT ELSEWHERE CLASSIFIED Assessment/Plan Current Medications Generic Name Dose Route Start Last Admin Trade Name Freq PRN Reason Stop Dose Admin Albuterol Sulfate 1 amp 06/22/17 20:00 06/23/17 07:33 Ventolin 0.083% Nebulizer Soln - NEB 1 amp RBID [facility] Administration Aspirin 81 mg 06/23/17 10:00 06/23/17 10:23 Asa - PO Not Given DAILY [facility] Atorvastatin Calcium 80 mg 06/22/17 22:00 06/22/17 22:14 Lipitor - PO 80 mg HS [facility] Administration Calcium Acetate 1,334 mg 06/22/17 12:00 06/23/17 12:06 Phoslo - PO Not Given TIDCM [facility] Carvedilol 12.5 mg 06/22/17 22:00 06/23/17 10:24 Coreg - PO Not Given BID [facility] Cholecalciferol 2,000 unit 06/23/17 10:00 06/23/17 11:28 Vitamin D3 - PO Not Given DAILY [facility] Collagenase 1 applic 06/23/17 10:00 06/23/17 11:28 Santyl - TP Not Given DAILY [facility] Docusate Sodium 100 mg 06/22/17 11:37 Colace - PO TID PRN CONSTIPATION Ferrous Sulfate 325 mg 06/23/17 10:00 06/23/17 10:25 Feosol - PO Not Given DAILY [facility] Heparin Sodium (Porcine) 5,000 unit 06/22/17 14:00 06/23/17 06:04 Heparin - SQ 5,000 unit TID [facility] Administration Meropenem 500 mg/ Dextrose 100 mls @ 200 mls/hr 06/22/17 22:00 06/23/17 10:26 IVPB Not Given BID [facility] Sodium Chloride 250 mls @ 3,000 mls/hr 06/23/17 09:49 Normal Saline - IV 06/24/17 09:49 PRN PRN Hypotension during Dialysis Insulin Aspart 1 vial 06/22/17 16:30 06/23/17 06:04 Novolog Vial Sliding Scale - SQ Not Given ACHS [facility] Protocol Lorazepam 2 mg 06/23/17 10:00 06/23/17 10:24 Ativan - PO Not Given DAILY [facility] Pantoprazole Sodium 20 mg 06/23/17 10:00 06/23/17 11:27 Protonix - PO Not Given DAILY [facility] Polyethylene Glycol 17 gm 06/23/17 10:00 06/23/17 10:27 Miralax (For Daily Use) - PO Not Given DAILY [facility] Pregabalin 75 mg 06/23/17 10:00 06/23/17 10:25 Lyrica - PO Not Given DAILY [facility] Torsemide 80 mg 06/23/17 10:00 06/23/17 10:24 Demadex - PO Not Given DAILY [facility] Impression 1. ESRD 2. anemia 3. HTN 4. morbid obesity 5. CVA 6. hyperlipidemia 7. proteinuria - nephrotic 8. PVD 9. lower ext gangrene 10. syncope Plan - HD today - cont abx - called podiatry for follow up - labs reviewed - follow cultures - vascular surgery follow up Dr Win
[2017-06-23] MEDS ORDERED: MEROPENEM 1 GM in DEXTROSE 5%-WATER - 100 ML IVPB SCH (18:00)
--- NOTE | 2017-06-23 18:28 | PN ---
Teaching Attending Note Name of Resident: Maninder Peters ATTENDING PHYSICIAN STATEMENT I saw and evaluated the patient. I reviewed the resident's note and discussed the case with the resident. I agree with the resident's findings and plan as documented. SUBJECTIVE: no fever, feels better OBJECTIVE: NAD CV: RRR, no MRG Lungs : CTAB Abd: obese, soft, NT, ND ,NL B S Ext: erythema, thick skin with chronic changes seen on legs . 1 cm clean ulcer on R lateral mid [place]. R foot with no skin break down L foot with s/p 2nd toe amputation with stitches in surgical bed, erythema on 3rd and 4th toes, with black discoloration of the tips and lateral fifth toe . DP 1+ on R and not felt on L on my exam . PT not felt b/l ASSESSMENT AND PLAN: 56 y/o man with h/o DM , ESRD, on HD TTS, PVD, OM, CVA, morbid obesity s/p gastric sleeve , HTN, anemia, anemia, HLP, recent admission for L 2nd toe infection s/p amputation, who presented due syncope during HD , and was found to have L 3rd and 4th toe discoloration and erythema. 1- Syncope: no clear etiology yet . echo reviewed, CUS reviewed -EEG pending - MRI 2- infected foot ulcer and L 3rd, 4th , 5th toe gangrene - podiatry eval - cont meropenem - vanco level pending - follow cx - possible need for amputation 3- DM : hold glipizide and cont ssi 4- HTN: cont coreg 5- ESRD: cont torsemide HD per renal dispo : [facility]LOC
[2017-06-23] MEDS: ATORVASTATIN CA 80 MG TABLET (FP) PO SCH (22:39)
[2017-06-24] MEDS ORDERED: PT OWN MED DRAWER 7, Y5N ONE (05:15)
[2017-06-24] MEDS: INSULIN SLIDING SCALE (NOVOLOG) 1 VIAL SQ SCH ×4 (06:21→22:13)
[2017-06-24] MEDS: HEPARIN NA (PORCINE) 5,000 UNITS/ML 1ML VIAL SQ SCH ×3 (06:21→22:09)
--- NOTE | 2017-06-24 07:58 | CONSULT ---
Consult - text type - Consultation Consultation Note: Podiatry Consultation: 57 year old M, well known to wound care service, presents with increased pain to L foot, leukocytosis from HD. Patient also had a bout of vomitting prior to admission. He is s/p L 2nd digit amputation for gangrene 06/12/17 during last admission. Patient has worsening changes to the left foot. Denies F/V/N/C/SOB/ CP. Has low grade temp to 99 F, otherwise VSS. PMHx: DM, HTN, ESRD on HD, s/p LLE angio, s/p gastric bypass Meds: noted ALL: shellfish, bactrim KEEGAN: L foot: pedal pulses non-palpable, TG wnl, CFT delayed to all remaining digits. There is a post-surgical incision second ray with increased wound dehiscence noted, fibrotic, no purulence, no fluctuance, no soft tissue crepitus. There are gangrenous changes distal 1/2 of third digit with mummification distally. There is ischemic change distal 1/2 of fourth digit. There is eschar fifth digit laterally. There is a distal tuft ulcer of the hallux with fibrotic base. There is moderate tenderness to palpation. WBC: 9.4 Blood Cx: no growth Wound Cx: pending Imp: 57 year old DM, ESRD on HD, PVD with L foot gangrene s/p L 2nd digit amputation and LLE angiogram 1. For vascular evaluation, likely today. Will need to see if there is enough distal perfusion to heal another amputation. He does have extensive microvascular disease. 2. Discussed case at length with the patient. He has progressive gangrenous changes to the left foot rather quickly s/p 2nd digit amputation. Unfortunately he is not healing appropriately and given the clinical appearance I discussed with him doing a transmetatarsal amputation. He is clearly upset about this but understands what is necessary. 3. Will likely need TMA early next week. Will follow. Thank you for the courtesy of this consultation. Amarilis Alcantara DPM
[2017-06-24 08:00] LABS: BASO % 2.7 % (0-2.0); EOS % 4.6 % (0-4.5); HEMATOCRIT 27.5 % (35.4-49); HEMOGLOBIN 9.1 GM/dL (11.7-16.9); LYMPH % 12.8 % (8-40); MCHC 33.1 g/dl (32.0-35.9); MEAN CELL VOLUME 90.5 fl (80-96); MEAN PLT VOLUME 9.2 fl (7.5-11.1); MONO % 7.9 % (3.8-10.2); PLATELET COUNT 322 K/MM3 (134-434); RBC 3.04 M/mm3 (4.00-5.60); RDW 15.3 % (11.9-15.9); WHITE BLOOD COUNT 8.6 K/mm3 (4.0-10.0)
[2017-06-24] MEDS ORDERED: VANCOMYCIN 1,000 MG in DEXTROSE 5%-WATER - 250 ML IVPB ONE (08:15)
[2017-06-24] MEDS: ALBUTEROL SO4 0.083% IH SOL 2.5 MG/3 ML VIAL.NEB. NEB SCH ×2 (08:16→20:39)
[2017-06-24] MEDS: CALCIUM ACETATE 667 MG CAPSULE (FP) PO SCH ×3 (08:19→17:09)
[2017-06-24 08:22] LABS: ALBUMIN 2.2 g/dl (3.4-5.0); ANION GAP 10 (8-16); BLOOD UREA NITROGEN 34 mg/dL (7-18); CALCIUM 7.9 mg/dL (8.5-10.1); CHLORIDE 101 mmol/L (98-107); CO2 29 mmol/L (21-32); GLUCOSE,RANDOM 113 mg/dL (74-106); MAGNESIUM 2.1 mg/dL (1.8-2.4); POTASSIUM 4.1 mmol/L (3.5-5.1); SGOT/AST 27 U/L (15-37); SODIUM 140 mmol/L (136-145)
[2017-06-24 08:24] LABS: ALK PHOS 46 U/L (45-117); BILIRUBIN,TOTAL 0.3 mg/dL (0.2-1.0); CREATININE 7.2 mg/dL (0.7-1.3); SGPT/ALT 18 U/L (12-78); TOT PROT 6.2 g/dl (6.4-8.2)
--- NOTE | 2017-06-24 08:52 | PN ---
Progress Note (short form) - Note Progress Note: Vascular Surgery Pt seen and examined. Left foot gangrene. Had angiogram done last months showing DP and PT runoff. Pt has microvascular disease in forefoot. Minimal flow getting to toes. Main runoff is the PT that feeds plantar flap. Podiatry planning to do TMA on monday. Agree with plan. Best option for pt. No vascular intervention needed at this time Erick Frederick DO
[2017-06-24] MEDS: CARVEDILOL 12.5 MG TABLET (FP) PO SCH ×2 (09:18→22:09)
[2017-06-24] MEDS: PANTOPRAZOLE 20 MG TABLET (FP) PO SCH (09:18)
[2017-06-24] MEDS: PREGABALIN 75 MG CAPSULE PO SCH (09:19)
[2017-06-24] MEDS: MEROPENEM 500 MG in DEXTROSE 5%-WATER - 100 ML IVPB SCH ×2 (09:19→22:09)
[2017-06-24] MEDS: ASPIRIN 81 MG CHEWABLE TABLETS PO SCH (09:19)
[2017-06-24] MEDS: CHOLECALCIFEROL (VITAMIN D3) 1,000 UNIT TABLET (FP) PO SCH (09:19)
[2017-06-24] MEDS: TORSEMIDE 20 MG TABLET (FP) PO SCH (09:19)
[2017-06-24] MEDS: FERROUS SO4 325 MG TABLET (FP) PO SCH (09:19)
[2017-06-24] MEDS: LORazepam 1 MG TABLET PO SCH (09:19)
[2017-06-24] MEDS: POLYETHYLENE GLYCOL 3350 119 GM BTL PO SCH (09:20)
[2017-06-24] MEDS: COLLAGENASE CLOSTRIDIUM HIST. 30 GRAMS TUBE TP SCH (09:20)
--- NOTE | 2017-06-24 09:30 | PN ---
Physical Exam: SUBJECTIVE: Patient seen and examined No acute events overnight. Patient was claustrophobic for the MRI yesterday. States he will try again today. Patient feeling a little depressed regarding the current situation of his left foot. OBJECTIVE: Vital Signs Period Temp Pulse Resp BP Sys/Leon Pulse Ox Last 24 Hr 98.1 F-99.4 F 62-73 16-18 105-159/46-93 98-99 GENERAL: Awake, alert, and fully oriented, in no acute distress. HEAD: Normal with no signs of trauma. EARS, NOSE, THROAT: Oropharynx clear without exudates. Moist mucous membranes. NECK: Normal range of motion LUNGS: Breath sounds equal, clear to auscultation bilaterally. No wheezes, and no crackles. No accessory muscle use. HEART: Regular rate and rhythm, normal S1 and S2 without murmur, ABDOMEN: Soft, nontender, not distended, normoactive bowel sounds, no guarding, no rebound, no masses. MUSCULOSKELETAL: Normal range of motion at all joints. No bony deformities or tenderness. No CVA tenderness. UPPER EXTREMITIES: 2+ pulses, warm, well-perfused. No cyanosis. No clubbing LOWER EXTREMITIES: Left: no DP/PT pulse, erythema and edema present. dry gangrene of 3rd , 4th, and 5th left toe. +stitches intact over 2nd left toe with purulent drainage NEUROLOGICAL: Cranial nerves II-XII intact. Normal speech. PSYCHIATRIC: Cooperative. Good eye contact. Appropriate mood and affect. SKIN: Warm, dry, Laboratory Results - last 24 hr 06/23/17 06/23/17 06/23/17 10:05 17:25 22:36 WBC RBC Hgb Hct MCV MCH MCHC RDW Plt Count MPV Neutrophils % Lymphocytes % Monocytes % Eosinophils % Basophils % Sodium Potassium Chloride Carbon Dioxide Anion Gap BUN Creatinine Creat Clearance w eGFR POC Glucometer 167 Random Glucose Calcium Phosphorus Magnesium Total Bilirubin AST ALT Alkaline Phosphatase Total Protein Albumin Urine Color Ltyellow Urine Appearance Slcloudy Urine pH 6.0 Ur Specific [place] 1.012 Urine Protein 2+ H Urine Glucose (UA) 2+ H Urine Ketones Negative Urine Blood 1+ H Urine Nitrite Negative Urine Bilirubin Negative Urine Urobilinogen Negative Ur Leukocyte Esterase 1+ H Urine WBC (Auto) 23 Urine RBC (Auto) 4 Ur Epithelial Cells Rare Urine Bacteria Rare Urine Yeast Rare Random Vancomycin 11.530 06/24/17 06/24/17 06/24/17 06:00 06:00 06:19 WBC 8.6 RBC 3.04 L Hgb 9.1 L Hct 27.5 L MCV 90.5 MCH 30.0 MCHC 33.1 RDW 15.3 Plt Count 322 MPV 9.2 Neutrophils % 72.0 Lymphocytes % 12.8 Monocytes % 7.9 Eosinophils % 4.6 H Basophils % 2.7 H Sodium 140 Potassium 4.1 Chloride 101 Carbon Dioxide 29 D Anion Gap 10 BUN 34 H D Creatinine 7.2 H D Creat Clearance w eGFR 7.89 POC Glucometer 128 Random Glucose 113 H Calcium 7.9 L Phosphorus 6.0 H D Magnesium 2.1 Total Bilirubin 0.3 D AST 27 ALT 18 Alkaline Phosphatase 46 Total Protein 6.2 L Albumin 2.2 L Urine Color Urine Appearance Urine pH Ur Specific [place] Urine Protein Urine Glucose (UA) Urine Ketones Urine Blood Urine Nitrite Urine Bilirubin Urine Urobilinogen Ur Leukocyte Esterase Urine WBC (Auto) Urine RBC (Auto) Ur Epithelial Cells Urine Bacteria Urine Yeast Random Vancomycin Active Medications Generic Name Dose Route Start Last Admin Trade Name Freq PRN Reason Stop Dose Admin Albuterol Sulfate 1 amp 06/22/17 20:00 06/24/17 08:16 Ventolin 0.083% Nebulizer Soln - NEB 1 amp RBID [facility] Administration Aspirin 81 mg 06/23/17 10:00 06/24/17 09:19 Asa - PO 81 mg DAILY [facility] Administration Atorvastatin Calcium 80 mg 06/22/17 22:00 06/23/17 22:39 Lipitor - PO 80 mg HS [facility] Administration Calcium Acetate 1,334 mg 06/22/17 12:00 06/24/17 08:19 Phoslo - PO 1,334 mg TIDCM [facility] Administration Carvedilol 12.5 mg 06/22/17 22:00 06/24/17 09:18 Coreg - PO 12.5 mg BID [facility] Administration Cholecalciferol 2,000 unit 06/23/17 10:00 06/24/17 09:19 Vitamin D3 - PO 2,000 unit DAILY [facility] Administration Collagenase 1 applic 06/23/17 10:00 06/24/17 09:20 Santyl - TP 1 applic DAILY [facility] Administration Docusate Sodium 100 mg 06/22/17 11:37 Colace - PO TID PRN CONSTIPATION Ferrous Sulfate 325 mg 06/23/17 10:00 06/24/17 09:19 Feosol - PO 325 mg DAILY [facility] Administration Heparin Sodium (Porcine) 5,000 unit 06/22/17 14:00 06/24/17 06:21 Heparin - SQ 5,000 unit TID [facility] Administration Meropenem 500 mg/ Dextrose 100 mls @ 200 mls/hr 06/22/17 22:00 06/24/17 09:19 IVPB 200 mls/hr BID [facility] Administration Sodium Chloride 250 mls @ 3,000 mls/hr 06/23/17 09:49 Normal Saline - IV 06/24/17 09:49 PRN PRN Hypotension during Dialysis Vancomycin HCl 1,000 mg/ 250 mls @ 166.667 mls/hr 06/24/17 08:15 06/24/17 09: 27 Dextrose IVPB 06/24/17 09:44 166.667 mls/hr ONCE ONE Administration Protocol Insulin Aspart 1 vial 06/22/17 16:30 06/24/17 06:21 Novolog Vial Sliding Scale - SQ Not Given ACHS [facility] Protocol Lorazepam 2 mg 06/23/17 10:00 06/24/17 09:19 Ativan - PO Not Given DAILY [facility] Pantoprazole Sodium 20 mg 06/23/17 10:00 06/24/17 09:18 Protonix - PO 20 mg DAILY [facility] Administration Polyethylene Glycol 17 gm 06/23/17 10:00 06/24/17 09:20 Miralax (For Daily Use) - PO Not Given DAILY [facility] Pregabalin 75 mg 06/23/17 10:00 06/24/17 09:19 Lyrica - PO 75 mg DAILY [facility] Administration Torsemide 80 mg 06/23/17 10:00 06/24/17 09:19 Demadex - PO 80 mg DAILY [facility] Administration ASSESSMENT/PLAN: This is a 56 yo M w PMH of ESRD (on HD TTS), NIDDM, PVD, OM, CVAx2 (w/LLE residual weakness), DM, HTN, who was sent to ER from HD due to syncopal episode. Found to have gangrene of toes and leukocytosis. Syncope of unclear etiolkogy, postural hypotension vs arrhythmia vs tia vs non convulsive seizers now no confusion, awake and alert. No more episodes of syncope fall risk precautions. cardiac monitoring. EEG pending MRI brain pending cardiology consult: Signed off case Echo and carotid doppler completed Diabetic foot ulcer: gangrene with cyanosis of tips Isolation precautions due to ESBL in previous wound cx Continue meropenem 500 mg bid and Vancomycin 1g today daily dressing. arterial doppler completed Podiatry consult Vascular surgery consult id consult Patient will need TMA-- likely monday ESRD on HD continue with phoslo vit d3 nephrology consult gets HD on , sat Will get HD today again continue torsemide 80 daily DM hold home medications BGM monitoring sliding scale HTN continue cavedilol GERD: continue omeprazole Constipation; continue miralex and colace. HLD Atorvaststin 80mg fluid; orally allowed electrolyte: monitor nutrition: diabetic and renal diet dvt pro: heparin sq gi pro: omeprazole dispo: telemetry monitoring Visit type - Emergency Visit Emergency Visit: Yes ED Registration Date: 06/22/17 Care time: The patient presented to the Emergency Department on the above date and was hospitalized for further evaluation of their emergent condition. - New Patient This patient is new to me today: No - Critical Care Critical Care patient: No
--- NOTE | 2017-06-24 11:04 | PN ---
Progress Note (short form) - Note Progress Note: gangrene of the left foot-3rd toe, s/p amputation of the second toe alert, NAD reports he is schedulted for surgery on Monday- mother is having surgery the same day too! Vital Signs Period Temp Pulse Resp BP Sys/Leon Pulse Ox Last 24 Hr 98.1 F-99.4 F 62-83 16-18 105-159/46-93 98-99 cor-rrr lungs clear abd soft,nt ext dressing on foot CBC, BMP 06/24/17 06:00 06/24/17 06:00 Microbiology 06/22/17 09:00 Blood - Peripheral Venous Blood Culture - Preliminary NO GROWTH OBTAINED AFTER 48 HOURS, INCUBATION TO CONTINUE FOR 3 DAYS. 06/22/17 09:00 Blood - Peripheral Venous Blood Culture - Preliminary NO GROWTH OBTAINED AFTER 48 HOURS, INCUBATION TO CONTINUE FOR 3 DAYS. a/p daibetic foot infections s/p amputation second toe continue meropenem received vancomycin this am, follow level daily and redose if less the 15 for TMA on Monday esrd/hd obesity
--- NOTE | 2017-06-24 12:36 | PN ---
Teaching Attending Note Name of Resident: Maninder Peters ATTENDING PHYSICIAN STATEMENT I saw and evaluated the patient. I reviewed the resident's note and discussed the case with the resident. I agree with the resident's findings and plan as documented. SUBJECTIVE: no fever or chills. upset about the need for another amputation but understands the need OBJECTIVE: NAD CV: RRR, no MRG Lungs : CTAB Ext: erythema, thick skin with chronic changes seen on legs. R foot with no skin break down L foot with s/p 2nd toe amputation with stitches in surgical bed and purulent drainage, erythema on 3rd and 4th toes, with black discoloration of the tips and lateral fifth toe . DP 1+ on R and not felt on L on my exam . PT not felt b/l ASSESSMENT AND PLAN: 56 y/o man with h/o DM , ESRD, on HD TTS, PVD, OM, CVA, morbid obesity s/p gastric sleeve , HTN, anemia, anemia, HLP, recent admission for L 2nd toe infection s/p amputation, who presented due syncope during HD , and was found to have L 3rd and 4th toe discoloration and erythema. 1- Syncope: no clear etiology yet. transient hypotension vs seizure with postictal confusion -EEG pending - MRI - tele with no events 2- infected foot ulcer and L 3rd, 4th , 5th toe gangrene - for tansmetatarsal amputation - cont meropenem - vanco today . level in am - follow cx - d/w Dr Temple 3- DM : hold glipizide and cont SSI 4- HTN: cont coreg 5- ESRD: cont torsemide HD per renal Dispo : [facility]LOC
--- NOTE | 2017-06-24 14:28 | PN ---
Progress Note, Physician History of Present Illness: Pt seen and examined at bedside. He will need more surgery on his foot. - Current Medication List Current Medications: Active Medications Albuterol Sulfate (Ventolin 0.083% Nebulizer Soln -) 1 amp NEB RBID [facility] Last Admin: 06/24/17 08:16 Dose: 1 amp Aspirin (Asa -) 81 mg PO DAILY [facility] Last Admin: 06/24/17 09:19 Dose: 81 mg Atorvastatin Calcium (Lipitor -) 80 mg PO HS [facility] Last Admin: 06/23/17 22:39 Dose: 80 mg Calcium Acetate (Phoslo -) 1,334 mg PO TIDCM [facility] Last Admin: 06/24/17 11:18 Dose: 1,334 mg Carvedilol (Coreg -) 12.5 mg PO BID [facility] Last Admin: 06/24/17 09:18 Dose: 12.5 mg Cholecalciferol (Vitamin D3 -) 2,000 unit PO DAILY [facility] Last Admin: 06/24/17 09:19 Dose: 2,000 unit Collagenase (Santyl -) 1 applic TP DAILY [facility] Last Admin: 06/24/17 09:20 Dose: 1 applic Docusate Sodium (Colace -) 100 mg PO TID PRN PRN Reason: CONSTIPATION Ferrous Sulfate (Feosol -) 325 mg PO DAILY [facility] Last Admin: 06/24/17 09:19 Dose: 325 mg Heparin Sodium (Porcine) (Heparin -) 5,000 unit SQ TID [facility] Last Admin: 06/24/17 13:19 Dose: 5,000 unit Meropenem 500 mg/ Dextrose 100 mls @ 200 mls/hr IVPB BID [facility] Last Admin: 06/24/17 09:19 Dose: 200 mls/hr Insulin Aspart (Novolog Vial Sliding Scale -) 1 vial SQ ACHS [facility] PRN Reason: Protocol Last Admin: 06/24/17 11:17 Dose: 4 units Lorazepam (Ativan -) 2 mg PO DAILY [facility] Last Admin: 06/24/17 09:19 Dose: Not Given Pantoprazole Sodium (Protonix -) 20 mg PO DAILY [facility] Last Admin: 06/24/17 09:18 Dose: 20 mg Polyethylene Glycol (Miralax (For Daily Use) -) 17 gm PO DAILY [facility] Last Admin: 06/24/17 09:20 Dose: Not Given Pregabalin (Lyrica -) 75 mg PO DAILY [facility] Last Admin: 06/24/17 09:19 Dose: 75 mg Torsemide (Demadex -) 80 mg PO DAILY [facility] Last Admin: 06/24/17 09:19 Dose: 80 mg - Objective Vital Signs: Vital Signs Temperature 99.3 F 06/24/17 10:00 Pulse Rate 83 06/24/17 10:00 Respiratory Rate 18 06/24/17 10:00 Blood Pressure 158/88 06/24/17 10:00 O2 Sat by Pulse Oximetry (%) 98 06/23/17 21:00 Constitutional: Yes: Calm Eyes: Yes: Conjunctiva Clear HENT: Yes: Atraumatic Cardiovascular: Yes: S1, S2 Gastrointestinal: Yes: WNL, Soft, Abdomen, Obese Genitourinary: Yes: WNL Edema: Yes Edema: LLE: 1+, RLE: 1+ Integumentary: Yes: Venous Stasis Changes Neurological: Yes: Oriented Psychiatric: Yes: Oriented Labs: CBC, BMP 06/24/17 06:00 06/24/17 06:00 INR, PTT INR 1.26 (0.82-1.09) H 06/23/17 06:25 Problem List - Problems (1) ESRD (end stage renal disease) Code(s): N18.6 - END STAGE RENAL DISEASE (2) Gangrene of toe of left foot Code(s): I96 - GANGRENE, NOT ELSEWHERE CLASSIFIED Assessment/Plan Current Medications Generic Name Dose Route Start Last Admin Trade Name Freq PRN Reason Stop Dose Admin Albuterol Sulfate 1 amp 06/22/17 20:00 06/24/17 08:16 Ventolin 0.083% Nebulizer Soln - NEB 1 amp RBID [facility] Administration Aspirin 81 mg 06/23/17 10:00 06/24/17 09:19 Asa - PO 81 mg DAILY [facility] Administration Atorvastatin Calcium 80 mg 06/22/17 22:00 06/23/17 22:39 Lipitor - PO 80 mg HS [facility] Administration Calcium Acetate 1,334 mg 06/22/17 12:00 06/24/17 11:18 Phoslo - PO 1,334 mg TIDCM [facility] Administration Carvedilol 12.5 mg 06/22/17 22:00 06/24/17 09:18 Coreg - PO 12.5 mg BID [facility] Administration Cholecalciferol 2,000 unit 06/23/17 10:00 06/24/17 09:19 Vitamin D3 - PO 2,000 unit DAILY [facility] Administration Collagenase 1 applic 06/23/17 10:00 06/24/17 09:20 Santyl - TP 1 applic DAILY [facility] Administration Docusate Sodium 100 mg 06/22/17 11:37 Colace - PO TID PRN CONSTIPATION Ferrous Sulfate 325 mg 06/23/17 10:00 06/24/17 09:19 Feosol - PO 325 mg DAILY [facility] Administration Heparin Sodium (Porcine) 5,000 unit 06/22/17 14:00 06/24/17 13:19 Heparin - SQ 5,000 unit TID [facility] Administration Meropenem 500 mg/ Dextrose 100 mls @ 200 mls/hr 06/22/17 22:00 06/24/17 09:19 IVPB 200 mls/hr BID [facility] Administration Insulin Aspart 1 vial 06/22/17 16:30 06/24/17 11:17 Novolog Vial Sliding Scale - SQ 4 units ACHS [facility] Administration Protocol Lorazepam 2 mg 06/23/17 10:00 06/24/17 09:19 Ativan - PO Not Given DAILY [facility] Pantoprazole Sodium 20 mg 06/23/17 10:00 06/24/17 09:18 Protonix - PO 20 mg DAILY [facility] Administration Polyethylene Glycol 17 gm 06/23/17 10:00 06/24/17 09:20 Miralax (For Daily Use) - PO Not Given DAILY [facility] Pregabalin 75 mg 06/23/17 10:00 06/24/17 09:19 Lyrica - PO 75 mg DAILY [facility] Administration Torsemide 80 mg 06/23/17 10:00 06/24/17 09:19 Demadex - PO 80 mg DAILY [facility] Administration Impression 1. ESRD 2. anemia 3. HTN 4. morbid obesity 5. CVA 6. hyperlipidemia 7. proteinuria - nephrotic 8. PVD 9. lower ext gangrene 10. syncope Plan - next HD on Monday - he tolerated HD yesterday - podiatry input appreciated - labs reviewed - follow cultures Dr Win
[2017-06-24] MEDS ORDERED: PREGABALIN 75 MG CAPSULE PO ONE (19:45)
[2017-06-24] MEDS: ATORVASTATIN CA 80 MG TABLET (FP) PO SCH (22:09)
[2017-06-25] MEDS: HEPARIN NA (PORCINE) 5,000 UNITS/ML 1ML VIAL SQ SCH ×3 (05:42→21:24)
[2017-06-25] MEDS: INSULIN SLIDING SCALE (NOVOLOG) 1 VIAL SQ SCH ×5 (06:01→21:28)
[2017-06-25 08:00] LABS: BASO % 3.2 % (0-2.0); EOS % 5.5 % (0-4.5); HEMATOCRIT 27.1 % (35.4-49); HEMOGLOBIN 9.2 GM/dL (11.7-16.9); LYMPH % 16.5 % (8-40); MCH 30.6 pg (25.7-33.7); MCHC 33.7 g/dl (32.0-35.9); MEAN CELL VOLUME 90.8 fl (80-96); MEAN PLT VOLUME 8.9 fl (7.5-11.1); MONO % 7.8 % (3.8-10.2); PLATELET COUNT 332 K/MM3 (134-434); RBC 2.99 M/mm3 (4.00-5.60); RDW 15.1 % (11.9-15.9); WHITE BLOOD COUNT 8.4 K/mm3 (4.0-10.0)
[2017-06-25] MEDS: ALBUTEROL SO4 0.083% IH SOL 2.5 MG/3 ML VIAL.NEB. NEB SCH ×2 (08:11→21:30)
[2017-06-25] MEDS ORDERED: PT OWN MED DRAWER 7, Y5N ONE (08:20)
[2017-06-25 08:29] LABS: ANION GAP 13 (8-16); BLOOD UREA NITROGEN 48 mg/dL (7-18); CALCIUM 8.3 mg/dL (8.5-10.1); CHLORIDE 99 mmol/L (98-107); CO2 26 mmol/L (21-32); GLUCOSE,RANDOM 96 mg/dL (74-106); MAGNESIUM 2.3 mg/dL (1.8-2.4); PHOSPHOROUS 6.8 mg/dL (2.5-4.9); POTASSIUM 4.1 mmol/L (3.5-5.1); SODIUM 138 mmol/L (136-145)
[2017-06-25 08:57] LABS: CREATININE 8.9 mg/dL (0.7-1.3)
[2017-06-25] MEDS: CALCIUM ACETATE 667 MG CAPSULE (FP) PO SCH ×3 (08:59→17:09)
[2017-06-25] MEDS: TORSEMIDE 20 MG TABLET (FP) PO SCH (09:21)
[2017-06-25] MEDS: CARVEDILOL 12.5 MG TABLET (FP) PO SCH ×2 (09:22→21:24)
[2017-06-25] MEDS: CHOLECALCIFEROL (VITAMIN D3) 1,000 UNIT TABLET (FP) PO SCH (09:22)
[2017-06-25] MEDS: FERROUS SO4 325 MG TABLET (FP) PO SCH (09:22)
[2017-06-25] MEDS: PANTOPRAZOLE 20 MG TABLET (FP) PO SCH (09:22)
[2017-06-25] MEDS: MEROPENEM 500 MG in DEXTROSE 5%-WATER - 100 ML IVPB SCH ×2 (09:22→21:25)
[2017-06-25] MEDS: LORazepam 1 MG TABLET PO SCH (09:23)
[2017-06-25] MEDS: ASPIRIN 81 MG CHEWABLE TABLETS PO SCH (09:23)
[2017-06-25] MEDS: PREGABALIN 75 MG CAPSULE PO SCH (09:23)
[2017-06-25] MEDS: POLYETHYLENE GLYCOL 3350 119 GM BTL PO SCH (09:24)
[2017-06-25] MEDS: COLLAGENASE CLOSTRIDIUM HIST. 30 GRAMS TUBE TP SCH (09:24)
--- NOTE | 2017-06-25 12:20 | PN ---
Progress Note, Physician History of Present Illness: No c/o foot pain No c/o fever/ chills Afebrile WBC WNL Wound c/s mixed organisms - Current Medication List Current Medications: Active Medications Albuterol Sulfate (Ventolin 0.083% Nebulizer Soln -) 1 amp NEB RBID [facility] Last Admin: 06/25/17 08:11 Dose: 1 amp Aspirin (Asa -) 81 mg PO DAILY [facility] Last Admin: 06/25/17 09:23 Dose: 81 mg Atorvastatin Calcium (Lipitor -) 80 mg PO HS [facility] Last Admin: 06/24/17 22:09 Dose: 80 mg Calcium Acetate (Phoslo -) 1,334 mg PO TIDCM [facility] Last Admin: 06/25/17 11:38 Dose: 1,334 mg Carvedilol (Coreg -) 12.5 mg PO BID [facility] Last Admin: 06/25/17 09:22 Dose: 12.5 mg Cholecalciferol (Vitamin D3 -) 2,000 unit PO DAILY [facility] Last Admin: 06/25/17 09:22 Dose: 2,000 unit Collagenase (Santyl -) 1 applic TP DAILY [facility] Last Admin: 06/25/17 09:24 Dose: Not Given Docusate Sodium (Colace -) 100 mg PO TID PRN PRN Reason: CONSTIPATION Ferrous Sulfate (Feosol -) 325 mg PO DAILY [facility] Last Admin: 06/25/17 09:22 Dose: 325 mg Heparin Sodium (Porcine) (Heparin -) 5,000 unit SQ TID [facility] Last Admin: 06/25/17 05:42 Dose: 5,000 unit Meropenem 500 mg/ Dextrose 100 mls @ 200 mls/hr IVPB BID [facility] Last Admin: 06/25/17 09:22 Dose: 200 mls/hr Insulin Aspart (Novolog Vial Sliding Scale -) 1 vial SQ ACHS [facility] PRN Reason: Protocol Last Admin: 06/25/17 11:40 Dose: 2 units Lorazepam (Ativan -) 2 mg PO DAILY [facility] Last Admin: 06/25/17 09:23 Dose: Not Given Pantoprazole Sodium (Protonix -) 20 mg PO DAILY [facility] Last Admin: 06/25/17 09:22 Dose: 20 mg Polyethylene Glycol (Miralax (For Daily Use) -) 17 gm PO DAILY [facility] Last Admin: 04/22/18 09:24 Dose: Not Given Pregabalin (Lyrica -) 75 mg PO DAILY [facility] Last Admin: 06/25/17 09:23 Dose: 75 mg Torsemide (Demadex -) 80 mg PO DAILY [facility] Last Admin: 06/25/17 09:21 Dose: 80 mg - Objective Vital Signs: Vital Signs Temperature 99 F 06/25/17 09:00 Pulse Rate 74 06/25/17 09:00 Respiratory Rate 20 06/25/17 09:00 Blood Pressure 140/70 06/25/17 09:00 O2 Sat by Pulse Oximetry (%) 96 06/25/17 09:00 Constitutional: Yes: No Distress, Obese Eyes: Yes: Conjunctiva Clear Cardiovascular: Yes: Regular Rate and Rhythm, S1, S2 Respiratory: Yes: CTA Bilaterally Gastrointestinal: Yes: Normal Bowel Sounds, Soft. No: Tenderness Extremities: Yes: Other (dry gangrene L foot) Labs: CBC, BMP 06/25/17 06:00 06/25/17 06:00 INR, PTT INR 1.26 (0.82-1.09) H 06/23/17 06:25 Assessment/Plan Dry gangrene L foot Leukocytosis- resolved ESRD Continue meropenem Vancomycin level theraputic For TMA
--- NOTE | 2017-06-25 15:43 | PN ---
Progress Note, Physician History of Present Illness: Pt seen and examined at bedside. He is awake and alert. He denies fevers or chills. - Current Medication List Current Medications: Active Medications Albuterol Sulfate (Ventolin 0.083% Nebulizer Soln -) 1 amp NEB RBID [facility] Last Admin: 06/25/17 08:11 Dose: 1 amp Aspirin (Asa -) 81 mg PO DAILY [facility] Last Admin: 06/25/17 09:23 Dose: 81 mg Atorvastatin Calcium (Lipitor -) 80 mg PO HS [facility] Last Admin: 06/24/17 22:09 Dose: 80 mg Calcium Acetate (Phoslo -) 1,334 mg PO TIDCM [facility] Last Admin: 06/25/17 11:38 Dose: 1,334 mg Carvedilol (Coreg -) 12.5 mg PO BID [facility] Last Admin: 06/25/17 09:22 Dose: 12.5 mg Cholecalciferol (Vitamin D3 -) 2,000 unit PO DAILY [facility] Last Admin: 06/25/17 09:22 Dose: 2,000 unit Collagenase (Santyl -) 1 applic TP DAILY [facility] Last Admin: 06/25/17 09:24 Dose: Not Given Docusate Sodium (Colace -) 100 mg PO TID PRN PRN Reason: CONSTIPATION Ferrous Sulfate (Feosol -) 325 mg PO DAILY [facility] Last Admin: 06/25/17 09:22 Dose: 325 mg Heparin Sodium (Porcine) (Heparin -) 5,000 unit SQ TID [facility] Last Admin: 06/25/17 14:04 Dose: 5,000 unit Meropenem 500 mg/ Dextrose 100 mls @ 200 mls/hr IVPB BID [facility] Last Admin: 06/25/17 09:22 Dose: 200 mls/hr Insulin Aspart (Novolog Vial Sliding Scale -) 1 vial SQ ACHS [facility] PRN Reason: Protocol Last Admin: 06/25/17 11:40 Dose: 2 units Lorazepam (Ativan -) 2 mg PO DAILY [facility] Last Admin: 06/25/17 09:23 Dose: Not Given Pantoprazole Sodium (Protonix -) 20 mg PO DAILY [facility] Last Admin: 06/25/17 09:22 Dose: 20 mg Polyethylene Glycol (Miralax (For Daily Use) -) 17 gm PO DAILY [facility] Last Admin: 06/25/17 09:24 Dose: Not Given Pregabalin (Lyrica -) 75 mg PO DAILY [facility] Last Admin: 06/25/17 09:23 Dose: 75 mg Torsemide (Demadex -) 80 mg PO DAILY [facility] Last Admin: 06/25/17 09:21 Dose: 80 mg - Objective Vital Signs: Vital Signs Temperature 99 F 06/25/17 09:00 Pulse Rate 74 06/25/17 09:00 Respiratory Rate 20 06/25/17 09:00 Blood Pressure 140/70 06/25/17 09:00 O2 Sat by Pulse Oximetry (%) 96 06/25/17 09:00 Constitutional: Yes: Calm Eyes: Yes: Conjunctiva Clear HENT: Yes: Atraumatic Neck: Yes: Supple Cardiovascular: Yes: S1, S2 Respiratory: Yes: CTA Bilaterally Gastrointestinal: Yes: Soft, Abdomen, Obese Genitourinary: Yes: WNL Edema: Yes Edema: LLE: 1+, RLE: 1+ Wound/Incision: Yes: Dressing Dry and Intact Neurological: Yes: Oriented Psychiatric: Yes: Oriented Labs: CBC, BMP 06/25/17 06:00 06/25/17 06:00 INR, PTT INR 1.26 (0.82-1.09) H 06/23/17 06:25 Problem List - Problems (1) ESRD (end stage renal disease) Code(s): N18.6 - END STAGE RENAL DISEASE (2) Gangrene of toe of left foot Code(s): I96 - GANGRENE, NOT ELSEWHERE CLASSIFIED Assessment/Plan Current Medications Generic Name Dose Route Start Last Admin Trade Name Freq PRN Reason Stop Dose Admin Albuterol Sulfate 1 amp 06/22/17 20:00 06/25/17 08:11 Ventolin 0.083% Nebulizer Soln - NEB 1 amp RBID [facility] Administration Aspirin 81 mg 06/23/17 10:00 06/25/17 09:23 Asa - PO 81 mg DAILY [facility] Administration Atorvastatin Calcium 80 mg 06/22/17 22:00 06/24/17 22:09 Lipitor - PO 80 mg HS [facility] Administration Calcium Acetate 1,334 mg 06/22/17 12:00 06/25/17 11:38 Phoslo - PO 1,334 mg TIDCM [facility] Administration Carvedilol 12.5 mg 06/22/17 22:00 06/25/17 09:22 Coreg - PO 12.5 mg BID [facility] Administration Cholecalciferol 2,000 unit 06/23/17 10:00 06/25/17 09:22 Vitamin D3 - PO 2,000 unit DAILY [facility] Administration Collagenase 1 applic 06/23/17 10:00 06/25/17 09:24 Santyl - TP Not Given DAILY [facility] Docusate Sodium 100 mg 06/22/17 11:37 Colace - PO TID PRN CONSTIPATION Ferrous Sulfate 325 mg 06/23/17 10:00 06/25/17 09:22 Feosol - PO 325 mg DAILY [facility] Administration Heparin Sodium (Porcine) 5,000 unit 06/22/17 14:00 06/25/17 14:04 Heparin - SQ 5,000 unit TID [facility] Administration Meropenem 500 mg/ Dextrose 100 mls @ 200 mls/hr 06/22/17 22:00 06/25/17 09:22 IVPB 200 mls/hr BID [facility] Administration Insulin Aspart 1 vial 06/22/17 16:30 06/25/17 11:40 Novolog Vial Sliding Scale - SQ 2 units ACHS [facility] Administration Protocol Lorazepam 2 mg 06/23/17 10:00 06/25/17 09:23 Ativan - PO Not Given DAILY [facility] Pantoprazole Sodium 20 mg 06/23/17 10:00 06/25/17 09:22 Protonix - PO 20 mg DAILY [facility] Administration Polyethylene Glycol 17 gm 06/23/17 10:00 06/25/17 09:24 Miralax (For Daily Use) - PO Not Given DAILY [facility] Pregabalin 75 mg 06/23/17 10:00 06/25/17 09:23 Lyrica - PO 75 mg DAILY [facility] Administration Torsemide 80 mg 06/23/17 10:00 06/25/17 09:21 Demadex - PO 80 mg DAILY [facility] Administration Impression 1. ESRD 2. anemia 3. HTN 4. morbid obesity 5. CVA 6. hyperlipidemia 7. proteinuria - nephrotic 8. PVD 9. lower ext gangrene 10. syncope Plan - HD in am - pt going to [place] on Monday - monitor hg - follow cultures Dr Win
--- NOTE | 2017-06-25 16:07 | PN ---
Progress Note (short form) - Note Progress Note: Subjective: no fever or chills. minimal pain in L foot Objective: Vital Signs: Last Vital Signs Temp Pulse Resp BP Pulse Ox 99 F 74 20 140/70 96 06/25/17 09:00 06/25/17 09:00 06/25/17 09:00 06/25/17 09:00 06/25/17 09:00 Laboratory Results - last 24 hr 06/24/17 06/24/17 06/25/17 17:02 22:10 05:39 WBC RBC Hgb Hct MCV MCH MCHC RDW Plt Count MPV Neutrophils % Lymphocytes % Monocytes % Eosinophils % Basophils % Sodium Potassium Chloride Carbon Dioxide Anion Gap BUN Creatinine POC Glucometer 145 228 102 Random Glucose Calcium Phosphorus Magnesium Random Vancomycin 06/25/17 06/25/17 06/25/17 06:00 06:00 06:00 WBC 8.4 RBC 2.99 L Hgb 9.2 L Hct 27.1 L MCV 90.8 MCH 30.6 MCHC 33.7 RDW 15.1 Plt Count 332 MPV 8.9 Neutrophils % 67.0 Lymphocytes % 16.5 D Monocytes % 7.8 Eosinophils % 5.5 H Basophils % 3.2 H Sodium 138 Potassium 4.1 Chloride 99 Carbon Dioxide 26 Anion Gap 13 BUN 48 H D Creatinine 8.9 H* D POC Glucometer Random Glucose 96 Calcium 8.3 L Phosphorus 6.8 H Magnesium 2.3 Random Vancomycin 16.316 06/25/17 11:37 WBC RBC Hgb Hct MCV MCH MCHC RDW Plt Count MPV Neutrophils % Lymphocytes % Monocytes % Eosinophils % Basophils % Sodium Potassium Chloride Carbon Dioxide Anion Gap BUN Creatinine POC Glucometer 197 Random Glucose Calcium Phosphorus Magnesium Random Vancomycin Physical Exam: NAD CV: RRR, no MRG Lungs: CTAB Ext: erythema, thick skin with chronic changes seen on legs. R foot with no skin break down L foot with s/p 2nd toe amputation with stitches in surgical bed and purulent drainage, erythema on 3rd and 4th toes, with black discoloration of the tips and lateral fifth toe . DP 1+ on R and not felt on L . PT not felt b/l ASSESSMENT AND PLAN: 56 y/o man with h/o DM , ESRD, on HD TTS, PVD, OM, CVA, morbid obesity s/p gastric sleeve , HTN, anemia, anemia, HLP, recent admission for L 2nd toe infection s/p amputation, who presented due syncope during HD , and was found to have L 3rd and 4th toe discoloration and erythema. 1- Syncope: no clear etiology yet. transient hypotension vs seizure with postictal confusion - EEG pending - MRI pending 2- infected foot ulcer and L 3rd, 4th , 5th toe gangrene - for tansmetatarsal amputation on Monday - cont meropenem - vanco level noted , will check before HD tomorrow - follow cx 3- DM : hold glipizide and cont SSI 4- HTN: cont coreg 5- ESRD: cont torsemide HD per renal Dispo : HLOC Visit type - Emergency Visit Emergency Visit: Yes ED Registration Date: 06/22/17 Care time: The patient presented to the Emergency Department on the above date and was hospitalized for further evaluation of their emergent condition. - New Patient This patient is new to me today: No - Critical Care Critical Care patient: No
[2017-06-25] MEDS: ATORVASTATIN CA 80 MG TABLET (FP) PO SCH (21:24)
[2017-06-26] MEDS: HEPARIN NA (PORCINE) 5,000 UNITS/ML 1ML VIAL SQ SCH ×3 (06:20→21:55)
[2017-06-26] MEDS: INSULIN SLIDING SCALE (NOVOLOG) 1 VIAL SQ SCH ×4 (06:20→21:52)
[2017-06-26] MEDS: ALBUTEROL SO4 0.083% IH SOL 2.5 MG/3 ML VIAL.NEB. NEB SCH ×2 (07:38→19:26)
[2017-06-26 08:05] LABS: CHLORIDE 102 mmol/L (98-107); POTASSIUM 4.3 mmol/L (3.5-5.1); SODIUM 138 mmol/L (136-145)
[2017-06-26] MEDS: CALCIUM ACETATE 667 MG CAPSULE (FP) PO SCH ×3 (08:08→17:27)
[2017-06-26 08:27] LABS: ANION GAP 11 (8-16); BLOOD UREA NITROGEN 59 mg/dL (7-18); CALCIUM 8.1 mg/dL (8.5-10.1); CO2 25 mmol/L (21-32); GLUCOSE,RANDOM 94 mg/dL (74-106)
[2017-06-26 08:36] LABS: CREATININE 10.4 mg/dL (0.7-1.3)
--- NOTE | 2017-06-26 09:36 | PN ---
Progress Note (short form) - Note Progress Note: hd this am alert, NAD reports he is schedulted for surgery on Monday- Vital Signs Period Temp Pulse Resp BP Sys/Leon Pulse Ox Last 24 Hr 98 F-99.0 F 67-89 119-140/58-74 96 less erythema less edema of the left foot open ulcer at site of second toe amputation minimal drainage necrotic third toe, tip of toes 4/5 with dry gangrene CBC, BMP 06/25/17 06:00 06/26/17 06:20 Microbiology 06/22/17 09:00 Blood - Peripheral Venous Blood Culture - Preliminary NO GROWTH OBTAINED AFTER 96 HOURS, INCUBATION TO CONTINUE FOR 1 DAYS. 06/22/17 09:00 Blood - Peripheral Venous Blood Culture - Preliminary NO GROWTH OBTAINED AFTER 96 HOURS, INCUBATION TO CONTINUE FOR 1 DAYS. 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
[2017-06-26] MEDS ORDERED: EPOETIN ALFA 3,000 UNIT, EPOETIN ALFA 2,000 UNIT IVPUSH ONE (10:00)
[2017-06-26] MEDS ORDERED: SODIUM CHLORIDE 250 ML IV PRN (10:00)
[2017-06-26] MEDS ORDERED: VANCOMYCIN 500 MG in DEXTROSE 5%-WATER - 100 ML IVPB ONE (10:15)
[2017-06-26 10:21] LABS: HEMATOCRIT 25.6 % (35.4-49); HEMOGLOBIN 8.5 GM/dL (11.7-16.9); MCH 30.1 pg (25.7-33.7); MCHC 33.2 g/dl (32.0-35.9); MEAN CELL VOLUME 90.5 fl (80-96); MEAN PLT VOLUME 8.9 fl (7.5-11.1); PLATELET COUNT 323 K/MM3 (134-434); RBC 2.82 M/mm3 (4.00-5.60); RDW 15.4 % (11.9-15.9); WHITE BLOOD COUNT 8.7 K/mm3 (4.0-10.0)
--- NOTE | 2017-06-26 10:40 | PN ---
Progress Note (short form) - Note Progress Note: Podiatry: Seen/evaluated at [facility]. Denies F/V/N/C/SOB/CP. Afebrile, VSS. KEEGAN: L foot: amputation stump ulcer fibrotic, sutures loosely coapted, no purulent draiange, no fluctuance, no soft tissue crepitus. Hallux ulcer distal tuft fibrotic with serous draining sinus, no sarmad purulence. Necrosis noted at tips of third, fourth, fifth digits. There is moderate erythema to the forefoot. Imp: 57 year old DM, PVD, ESRD M with L foot gangrene 1. Discussed risks, benefits and alternatives to surgery at length with patient. Based on the clinical appearance of the foot, I have recommended transmetatarsal amputation L foot. He is amenable to planned procedure. 2. NPO at midnight. 3. Please obtain medical clearance, cardiac if necessary. 4. Will closely follow. Amarilis Alcantara DPM
--- NOTE | 2017-06-26 12:24 | PN ---
Progress Note, Physician History of Present Illness: Pt seen and examined at bedside. He is currently getting HD. - Current Medication List Current Medications: Active Medications Albuterol Sulfate (Ventolin 0.083% Nebulizer Soln -) 1 amp NEB RBID [facility] Last Admin: 06/26/17 07:38 Dose: 1 amp Aspirin (Asa -) 81 mg PO DAILY [facility] Last Admin: 06/25/17 09:23 Dose: 81 mg Atorvastatin Calcium (Lipitor -) 80 mg PO HS [facility] Last Admin: 06/25/17 21:24 Dose: 80 mg Calcium Acetate (Phoslo -) 1,334 mg PO TIDCM [facility] Last Admin: 06/26/17 08:08 Dose: 1,334 mg Carvedilol (Coreg -) 12.5 mg PO BID [facility] Last Admin: 06/25/17 21:24 Dose: 12.5 mg Cholecalciferol (Vitamin D3 -) 2,000 unit PO DAILY [facility] Last Admin: 06/25/17 09:22 Dose: 2,000 unit Collagenase (Santyl -) 1 applic TP DAILY [facility] Last Admin: 06/25/17 09:24 Dose: Not Given Docusate Sodium (Colace -) 100 mg PO TID PRN PRN Reason: CONSTIPATION Ferrous Sulfate (Feosol -) 325 mg PO DAILY [facility] Last Admin: 06/25/17 09:22 Dose: 325 mg Heparin Sodium (Porcine) (Heparin -) 5,000 unit SQ TID [facility] Last Admin: 06/26/17 06:20 Dose: Not Given Meropenem 500 mg/ Dextrose 100 mls @ 200 mls/hr IVPB BID [facility] Last Admin: 06/25/17 21:25 Dose: 200 mls/hr Insulin Aspart (Novolog Vial Sliding Scale -) 1 vial SQ ACHS [facility] PRN Reason: Protocol Last Admin: 06/26/17 06:20 Dose: Not Given Lorazepam (Ativan -) 2 mg PO DAILY [facility] Last Admin: 06/25/17 09:23 Dose: Not Given Pantoprazole Sodium (Protonix -) 20 mg PO DAILY [facility] Last Admin: 06/25/17 09:22 Dose: 20 mg Polyethylene Glycol (Miralax (For Daily Use) -) 17 gm PO DAILY [facility] Last Admin: 06/25/17 09:24 Dose: Not Given Pregabalin (Lyrica -) 75 mg PO DAILY [facility] Last Admin: 06/25/17 09:23 Dose: 75 mg Torsemide (Demadex -) 80 mg PO DAILY [facility] Last Admin: 06/25/17 09:21 Dose: 80 mg - Objective Vital Signs: Vital Signs Temperature 98 F 06/26/17 10:00 Pulse Rate 69 06/26/17 11:50 Respiratory Rate 18 06/26/17 11:50 Blood Pressure 139/73 06/26/17 11:50 O2 Sat by Pulse Oximetry (%) 96 06/25/17 21:00 Constitutional: Yes: Calm Eyes: Yes: Conjunctiva Clear HENT: Yes: Atraumatic Neck: Yes: Supple Cardiovascular: Yes: S1, S2 Respiratory: Yes: CTA Bilaterally Gastrointestinal: Yes: Soft, Abdomen, Obese Genitourinary: Yes: WNL Musculoskeletal: Yes: WNL Edema: Yes Edema: LLE: 1+, RLE: 1+ Integumentary: Yes: Venous Stasis Changes Neurological: Yes: Oriented Psychiatric: Yes: Oriented Labs: CBC, BMP 06/26/17 09:25 06/26/17 06:20 INR, PTT INR 1.26 (0.82-1.09) H 06/23/17 06:25 Problem List - Problems (1) ESRD (end stage renal disease) Code(s): N18.6 - END STAGE RENAL DISEASE (2) Gangrene of toe of left foot Code(s): I96 - GANGRENE, NOT ELSEWHERE CLASSIFIED Assessment/Plan Current Medications Generic Name Dose Route Start Last Admin Trade Name Freq PRN Reason Stop Dose Admin Albuterol Sulfate 1 amp 06/22/17 20:00 06/26/17 07:38 Ventolin 0.083% Nebulizer Soln - NEB 1 amp RBID [facility] Administration Aspirin 81 mg 06/23/17 10:00 06/25/17 09:23 Asa - PO 81 mg DAILY [facility] Administration Atorvastatin Calcium 80 mg 06/22/17 22:00 06/25/17 21:24 Lipitor - PO 80 mg HS [facility] Administration Calcium Acetate 1,334 mg 06/22/17 12:00 06/26/17 08:08 Phoslo - PO 1,334 mg TIDCM [facility] Administration Carvedilol 12.5 mg 06/22/17 22:00 06/25/17 21:24 Coreg - PO 12.5 mg BID [facility] Administration Cholecalciferol 2,000 unit 06/23/17 10:00 06/25/17 09:22 Vitamin D3 - PO 2,000 unit DAILY [facility] Administration Collagenase 1 applic 06/23/17 10:00 06/25/17 09:24 Santyl - TP Not Given DAILY [facility] Docusate Sodium 100 mg 06/22/17 11:37 Colace - PO TID PRN CONSTIPATION Ferrous Sulfate 325 mg 06/23/17 10:00 06/25/17 09:22 Feosol - PO 325 mg DAILY [facility] Administration Heparin Sodium (Porcine) 5,000 unit 06/22/17 14:00 06/26/17 06:20 Heparin - SQ Not Given TID [facility] Meropenem 500 mg/ Dextrose 100 mls @ 200 mls/hr 06/22/17 22:00 06/25/17 21:25 IVPB 200 mls/hr BID [facility] Administration Insulin Aspart 1 vial 06/22/17 16:30 06/26/17 06:20 Novolog Vial Sliding Scale - SQ Not Given ACHS [facility] Protocol Lorazepam 2 mg 06/23/17 10:00 06/25/17 09:23 Ativan - PO Not Given DAILY [facility] Pantoprazole Sodium 20 mg 06/23/17 10:00 06/25/17 09:22 Protonix - PO 20 mg DAILY [facility] Administration Polyethylene Glycol 17 gm 06/23/17 10:00 06/25/17 09:24 Miralax (For Daily Use) - PO Not Given DAILY [facility] Pregabalin 75 mg 06/23/17 10:00 06/25/17 09:23 Lyrica - PO 75 mg DAILY [facility] Administration Torsemide 80 mg 06/23/17 10:00 06/25/17 09:21 Demadex - PO 80 mg DAILY [facility] Administration Impression 1. ESRD 2. anemia 3. HTN 4. morbid obesity 5. CVA 6. hyperlipidemia 7. proteinuria - nephrotic 8. PVD 9. lower ext gangrene 10. syncope Plan - pt getting HD today - he is going to [place] tomorrow - cont wound care - will arrange for HD on - epogen for anemia - send type and screen as he is going to [place] tomorrow Dr Win
[2017-06-26] MEDS: ASPIRIN 81 MG CHEWABLE TABLETS PO SCH (13:30)
--- NOTE | 2017-06-26 13:48 | PN ---
Teaching Attending Note Name of Resident: Maninder Peters ATTENDING PHYSICIAN STATEMENT I saw and evaluated the patient. I reviewed the resident's note and discussed the case with the resident. I agree with the resident's findings and plan as documented. SUBJECTIVE: pain in L foot , minimal . no fever or chills . no SOB , no CP. OBJECTIVE: NAD CV: RRR, no MRG Lungs: CTAB Ext: erythema, thick skin with chronic changes seen on legs. R foot with no skin break down L foot with s/p 2nd toe amputation with stitches in surgical bed , no drainage today. , erythema on 3rd and 4th toes, with black discoloration of the tips and lateral fifth toe . DP 1+ on R and not felt on L. PT not felt b/l ASSESSMENT AND PLAN: 56 y/o man with h/o DM , ESRD, on HD TTS, PVD, OM, CVA, morbid obesity s/p gastric sleeve , HTN, anemia, anemia, HLP, recent admission for L 2nd toe infection s/p amputation, who presented due syncope during HD , and was found to have L 3rd and 4th toe discoloration and erythema. 1- Syncope: no clear etiology yet. transient hypotension vs seizure with postictal confusion - EEG and MRI pending 2- Infected foot ulcer and L 3rd, 4th , 5th toe gangrene - for tansmetatarsal amputation tomorrow - cont meropenem . a dose of vanco after HD today - Pre-Op risk stratification . this is an intermediate risk procedure. the pt himself has no signs of heart failure, ACS , arrhythmias or active CP. he has a h/o CVA , DM , and ESRD , Echo with Concentric LVH. all this puts him at intermediate risk for this intermediate risk procedure for chante-op cardiac complications. Still, no further cardiac w/u is indicated before sx. 3- DM : hold glipizide and cont SSI 4- HTN: cont coreg 5- ESRD: cont torsemide HD today Dispo : HLOC
--- NOTE | 2017-06-26 14:12 | PN ---
Physical Exam: SUBJECTIVE: Patient seen and examined No acute events overnight. Patient continues to have mild pain in foot. Denies other complaints OBJECTIVE: Vital Signs Period Temp Pulse Resp BP Sys/Leon Pulse Ox Last 24 Hr 98 F-99.0 F 62-78 18-18 119-168/58-96 96-96 GENERAL: Awake, alert, and fully oriented, in no acute distress. HEAD: Normal with no signs of trauma. EARS, NOSE, THROAT: Oropharynx clear without exudates. Moist mucous membranes. NECK: Normal range of motion LUNGS: Breath sounds equal, clear to auscultation bilaterally. No wheezes, and no crackles. No accessory muscle use. HEART: Regular rate and rhythm, normal S1 and S2 without murmur, ABDOMEN: Soft, nontender, not distended, normoactive bowel sounds, no guarding, no rebound, no masses. MUSCULOSKELETAL: Normal range of motion at all joints. No bony deformities or tenderness. No CVA tenderness. UPPER EXTREMITIES: 2+ pulses, warm, well-perfused. No cyanosis. No clubbing LOWER EXTREMITIES: left foot wrapped today NEUROLOGICAL: Cranial nerves II-XII intact. Normal speech. PSYCHIATRIC: Cooperative. Good eye contact. Appropriate mood and affect. SKIN: Warm, dry, Laboratory Results - last 24 hr 06/25/17 06/25/17 06/26/17 17:09 21:27 06:10 WBC RBC Hgb Hct MCV MCH MCHC RDW Plt Count MPV Sodium Potassium Chloride Carbon Dioxide Anion Gap BUN Creatinine POC Glucometer 151 217 109 Random Glucose Calcium Random Vancomycin 06/26/17 06/26/17 06/26/17 06:20 06:20 09:25 WBC 8.7 RBC 2.82 L Hgb 8.5 L Hct 25.6 L MCV 90.5 MCH 30.1 MCHC 33.2 RDW 15.4 Plt Count 323 MPV 8.9 Sodium 138 Potassium 4.3 Chloride 102 Carbon Dioxide 25 Anion Gap 11 BUN 59 H D Creatinine 10.4 H* POC Glucometer Random Glucose 94 Calcium 8.1 L Random Vancomycin 15.765 Active Medications Generic Name Dose Route Start Last Admin Trade Name Freq PRN Reason Stop Dose Admin Albuterol Sulfate 1 amp 06/22/17 20:00 06/26/17 07:38 Ventolin 0.083% Nebulizer Soln - NEB 1 amp RBID [facility] Administration Aspirin 81 mg 06/23/17 10:00 06/26/17 13:30 Asa - PO Not Given DAILY [facility] Atorvastatin Calcium 80 mg 06/22/17 22:00 06/25/17 21:24 Lipitor - PO 80 mg HS [facility] Administration Calcium Acetate 1,334 mg 06/22/17 12:00 06/26/17 08:08 Phoslo - PO 1,334 mg TIDCM [facility] Administration Carvedilol 12.5 mg 06/22/17 22:00 06/25/17 21:24 Coreg - PO 12.5 mg BID [facility] Administration Cholecalciferol 2,000 unit 06/23/17 10:00 06/25/17 09:22 Vitamin D3 - PO 2,000 unit DAILY [facility] Administration Collagenase 1 applic 06/23/17 10:00 06/25/17 09:24 Santyl - TP Not Given DAILY [facility] Docusate Sodium 100 mg 06/22/17 11:37 Colace - PO TID PRN CONSTIPATION Ferrous Sulfate 325 mg 06/23/17 10:00 06/25/17 09:22 Feosol - PO 325 mg DAILY [facility] Administration Heparin Sodium (Porcine) 5,000 unit 06/22/17 14:00 06/26/17 06:20 Heparin - SQ Not Given TID [facility] Meropenem 500 mg/ Dextrose 100 mls @ 200 mls/hr 06/22/17 22:00 06/25/17 21:25 IVPB 200 mls/hr BID [facility] Administration Insulin Aspart 1 vial 06/22/17 16:30 06/26/17 06:20 Novolog Vial Sliding Scale - SQ Not Given ACHS [facility] Protocol Lorazepam 2 mg 06/23/17 10:00 06/25/17 09:23 Ativan - PO Not Given DAILY [facility] Pantoprazole Sodium 20 mg 06/23/17 10:00 06/25/17 09:22 Protonix - PO 20 mg DAILY [facility] Administration Polyethylene Glycol 17 gm 06/23/17 10:00 06/25/17 09:24 Miralax (For Daily Use) - PO Not Given DAILY [facility] Pregabalin 75 mg 06/23/17 10:00 06/25/17 09:23 Lyrica - PO 75 mg DAILY [facility] Administration Torsemide 80 mg 06/23/17 10:00 06/25/17 09:21 Demadex - PO 80 mg DAILY [facility] Administration ASSESSMENT/PLAN: This is a 56 yo M w PMH of ESRD (on HD TTS), NIDDM, PVD, OM, CVAx2 (w/LLE residual weakness), DM, HTN, who was sent to ER from HD due to syncopal episode. Found to have gangrene of toes and leukocytosis. Syncope of unclear etiolkogy, postural hypotension vs arrhythmia vs tia vs non convulsive seizers now no confusion, awake and alert. No more episodes of syncope fall risk precautions. cardiac monitoring. EEG pending MRI brain pending cardiology consult: Signed off case Echo and carotid doppler completed Diabetic foot ulcer: gangrene with cyanosis of tips Isolation precautions due to ESBL in previous wound cx Continue meropenem 500 mg bid and Vancomycin 1g today daily dressing. arterial doppler completed Podiatry consult Vascular surgery consult id consult Patient will undergo tma tomorrow ESRD on HD continue with phoslo vit d3 nephrology consult gets HD on T, Th, sat Will get HD today continue torsemide 80 daily DM hold home medications BGM monitoring sliding scale HTN continue cavedilol GERD: continue omeprazole Constipation; continue miralex and colace. HLD Atorvaststin 80mg fluid; orally allowed electrolyte: monitor nutrition: diabetic and renal diet dvt pro: heparin sq gi pro: omeprazole dispo: telemetry monitoring Visit type - Emergency Visit Emergency Visit: Yes ED Registration Date: 06/22/17 Care time: The patient presented to the Emergency Department on the above date and was hospitalized for further evaluation of their emergent condition. - New Patient This patient is new to me today: No - Critical Care Critical Care patient: No
[2017-06-26] MEDS: LORazepam 1 MG TABLET PO SCH (14:44)
[2017-06-26] MEDS: MEROPENEM 500 MG in DEXTROSE 5%-WATER - 100 ML IVPB SCH ×2 (14:45→21:51)
[2017-06-26] MEDS: CHOLECALCIFEROL (VITAMIN D3) 1,000 UNIT TABLET (FP) PO SCH (14:45)
[2017-06-26] MEDS: FERROUS SO4 325 MG TABLET (FP) PO SCH (14:45)
[2017-06-26] MEDS: CARVEDILOL 12.5 MG TABLET (FP) PO SCH ×2 (14:45→21:51)
[2017-06-26] MEDS: PANTOPRAZOLE 20 MG TABLET (FP) PO SCH (14:46)
[2017-06-26] MEDS: TORSEMIDE 20 MG TABLET (FP) PO SCH (14:46)
[2017-06-26] MEDS: PREGABALIN 75 MG CAPSULE PO SCH (14:57)
[2017-06-26] MEDS: COLLAGENASE CLOSTRIDIUM HIST. 30 GRAMS TUBE TP SCH (14:57)
[2017-06-26] MEDS: POLYETHYLENE GLYCOL 3350 119 GM BTL PO SCH (14:57)
[2017-06-26] MEDS ORDERED: EPOETIN ALFA 2,000 UNIT/1 ML VIAL IVPUSH ONE (15:43)
[2017-06-26] MEDS ORDERED: PT OWN MED DRAWER 7, Y5N ONE (21:22)
[2017-06-26] MEDS: ATORVASTATIN CA 80 MG TABLET (FP) PO SCH (21:51)
[2017-06-26] MEDS ORDERED: ACETAMINOPHEN 325 MG TABLET (FP) PO ONE (22:09)
[2017-06-27] MEDS: HEPARIN NA (PORCINE) 5,000 UNITS/ML 1ML VIAL SQ SCH ×2 (06:09→22:41)
[2017-06-27] MEDS: INSULIN SLIDING SCALE (NOVOLOG) 1 VIAL SQ SCH ×4 (06:09→22:45)
[2017-06-27] MEDS: CARVEDILOL 12.5 MG TABLET (FP) PO SCH ×3 (06:09→22:45)
[2017-06-27] MEDS: CALCIUM ACETATE 667 MG CAPSULE (FP) PO SCH ×3 (07:23→17:45)
[2017-06-27] MEDS: ALBUTEROL SO4 0.083% IH SOL 2.5 MG/3 ML VIAL.NEB. NEB SCH ×2 (07:51→22:00)
[2017-06-27] MEDS ORDERED: PT OWN MED DRAWER 7, Y5N ONE (08:14)
[2017-06-27] MEDS ORDERED: INSULIN (NOVOLOG) ASPART 100 UNITS/ML 10ML VIAL ONE (08:15)
[2017-06-27] MEDS: LORazepam 1 MG TABLET PO SCH (09:06)
[2017-06-27] MEDS: PREGABALIN 75 MG CAPSULE PO SCH (09:06)
[2017-06-27] MEDS: FERROUS SO4 325 MG TABLET (FP) PO SCH (09:06)
[2017-06-27] MEDS: POLYETHYLENE GLYCOL 3350 119 GM BTL PO SCH (09:06)
[2017-06-27] MEDS: TORSEMIDE 20 MG TABLET (FP) PO SCH (09:06)
[2017-06-27] MEDS: PANTOPRAZOLE 20 MG TABLET (FP) PO SCH (09:06)
[2017-06-27] MEDS: CHOLECALCIFEROL (VITAMIN D3) 1,000 UNIT TABLET (FP) PO SCH (09:07)
[2017-06-27] MEDS: MEROPENEM 500 MG in DEXTROSE 5%-WATER - 100 ML IVPB SCH ×2 (09:11→22:09)
[2017-06-27] MEDS: COLLAGENASE CLOSTRIDIUM HIST. 30 GRAMS TUBE TP SCH (09:11)
[2017-06-27 09:17] LABS: BASO % 2.5 % (0-2.0); EOS % 6.5 % (0-4.5); HEMATOCRIT 26.5 % (35.4-49); HEMOGLOBIN 8.7 GM/dL (11.7-16.9); LYMPH % 14.7 % (8-40); MCH 29.6 pg (25.7-33.7); MCHC 32.9 g/dl (32.0-35.9); MEAN PLT VOLUME 8.8 fl (7.5-11.1); MONO % 8.5 % (3.8-10.2); NEUT % 67.8 % (42.8-82.8); PLATELET COUNT 324 K/MM3 (134-434); RBC 2.94 M/mm3 (4.00-5.60); RDW 15.1 % (11.9-15.9); WHITE BLOOD COUNT 7.5 K/mm3 (4.0-10.0)
[2017-06-27 09:42] LABS: ANION GAP 9 (8-16); BLOOD UREA NITROGEN 39 mg/dL (7-18); CHLORIDE 101 mmol/L (98-107); CO2 30 mmol/L (21-32); CREATININE 7.2 mg/dL (0.7-1.3); GLUCOSE,RANDOM 121 mg/dL (74-106); SODIUM 140 mmol/L (136-145)
--- NOTE | 2017-06-27 12:10 | PN ---
Progress Note (short form) - Note Progress Note: alert, NAD npo awaiting surgery today Vital Signs Period Temp Pulse Resp BP Sys/Leon Pulse Ox Last 24 Hr 97.7 F-99 F 62-69 18-20 116-168/54-91 96 cor-rrr lungs clear abd soft,nt ext dressing intact CBC, BMP 06/27/17 08:45 06/27/17 08:45 Microbiology 06/22/17 09:00 Blood - Peripheral Venous Blood Culture - Final NO GROWTH AFTER 5 DAYS INCUBATION 06/22/17 09:00 Blood - Peripheral Venous Blood Culture - Final NO GROWTH AFTER 5 DAYS INCUBATION 06/23/17 13:30 Foot - Left Gram Stain - Final 06/23/17 13:30 Foot - Left Wound Culture - Final Escherichia Coli [facility] Coordinator Acinetobacter Baumannii/Haemol Mr S Aureus 06/23/17 10:05 Urine - Urine Clean Catch Urine Culture - Final NO GROWTH OBTAINED vanco trough 15 a/p daibetic foot infections s/p amputation second toe continue meropenem/vancomycin by levels redose vancomycin today for TMA today f/u operative cultures and pathology esrd/hd obesity
[2017-06-27] MEDS ORDERED: LIDOCAINE HCL 2% (20ML MULTI-DOSE VIAL) NR ONE (12:53)
--- NOTE | 2017-06-27 13:16 | PN ---
Progress Note (short form) - Note Progress Note: Podiatry Pre-op Note: Patient seen/evaluated in holding. Discussed risks, benefits and alternatives of surgery at length with patient. Namely, the risk of progression of gangrenous changes, seeding of infection, further amputation, further hospitalization, loss of limb even loss of life. Patient understands and is amenable to surgery. All questions answered, informed consent obtained. Plan for L transmetatarsal amputation under MAC/Local. Amarilis Alcantara DPM
[2017-06-27] MEDS ORDERED: MIDAZOLAM HCL 2 MG/2 ML SINGLE DOSE VIAL ONE ×2 (13:21)
[2017-06-27] MEDS ORDERED: PROPOFOL 20 ML ONE ×3 (13:31→14:15)
[2017-06-27] MEDS ORDERED: VANCOMYCIN 500 MG in DEXTROSE 5%-WATER - 100 ML IVPB ONE ×2 (14:00→17:30)
--- NOTE | 2017-06-27 14:21 | PN ---
Physical Exam: SUBJECTIVE: Patient seen and examined No acute events overnight. Patient feels well this morning. Awaiting his time to go to the OR. OBJECTIVE: Vital Signs Period Temp Pulse Resp BP Sys/Leon Pulse Ox Last 24 Hr 97.7 F-99 F 64-69 18-20 116-144/54-78 96-97 GENERAL: Awake, alert, and fully oriented, in no acute distress. HEAD: Normal with no signs of trauma. EARS, NOSE, THROAT: Oropharynx clear without exudates. Moist mucous membranes. NECK: Normal range of motion LUNGS: Breath sounds equal, clear to auscultation bilaterally. No wheezes, and no crackles. No accessory muscle use. HEART: Regular rate and rhythm, normal S1 and S2 without murmur, ABDOMEN: Soft, nontender, not distended, normoactive bowel sounds, no guarding, no rebound, no masses. MUSCULOSKELETAL: Normal range of motion at all joints. No bony deformities or tenderness. No CVA tenderness. UPPER EXTREMITIES: 2+ pulses, warm, well-perfused. No cyanosis. No clubbing LOWER EXTREMITIES: Left: no DP/PT pulse, erythema and edema present. dry gangrene of 3rd , 4th, and 5th left toe. +stitches intact over 2nd left toe with purulent drainage NEUROLOGICAL: Cranial nerves II-XII intact. Normal speech. PSYCHIATRIC: Cooperative. Good eye contact. Appropriate mood and affect. SKIN: Warm, dry, Laboratory Results - last 24 hr 06/26/17 06/26/17 06/26/17 13:15 14:33 17:20 WBC RBC Hgb Hct MCV MCH MCHC RDW Plt Count MPV Neutrophils % Lymphocytes % Monocytes % Eosinophils % Basophils % Sodium Potassium Chloride Carbon Dioxide Anion Gap BUN Creatinine POC Glucometer 205 185 Random Glucose Calcium Random Vancomycin Blood Type A POSITIVE Antibody Screen Negative 06/26/17 06/27/17 06/27/17 21:13 06:08 08:45 WBC RBC Hgb Hct MCV MCH MCHC RDW Plt Count MPV Neutrophils % Lymphocytes % Monocytes % Eosinophils % Basophils % Sodium Potassium Chloride Carbon Dioxide Anion Gap BUN Creatinine POC Glucometer 213 120 Random Glucose Calcium Random Vancomycin 15.169 Blood Type Antibody Screen 06/27/17 06/27/17 06/27/17 08:45 08:45 12:11 WBC 7.5 RBC 2.94 L Hgb 8.7 L Hct 26.5 L MCV 90.0 MCH 29.6 MCHC 32.9 RDW 15.1 Plt Count 324 MPV 8.8 Neutrophils % 67.8 Lymphocytes % 14.7 Monocytes % 8.5 Eosinophils % 6.5 H Basophils % 2.5 H Sodium 140 Potassium 4.0 Chloride 101 Carbon Dioxide 30 Anion Gap 9 BUN 39 H D Creatinine 7.2 H D POC Glucometer 155 Random Glucose 121 H D Calcium 8.0 L Random Vancomycin Blood Type Antibody Screen Active Medications Generic Name Dose Route Start Last Admin Trade Name Freq PRN Reason Stop Dose Admin Albuterol Sulfate 1 amp 06/22/17 20:00 06/27/17 07:51 Ventolin 0.083% Nebulizer Soln - NEB 1 amp RBID [facility] Administration Aspirin 81 mg 06/23/17 10:00 06/26/17 13:30 Asa - PO Not Given DAILY [facility] Atorvastatin Calcium 80 mg 06/22/17 22:00 06/26/17 21:51 Lipitor - PO 80 mg HS [facility] Administration Calcium Acetate 1,334 mg 06/22/17 12:00 06/27/17 12:16 Phoslo - PO Not Given TIDCM [facility] Carvedilol 12.5 mg 06/22/17 22:00 06/27/17 09:06 Coreg - PO Not Given BID [facility] Cholecalciferol 2,000 unit 06/23/17 10:00 06/27/17 09:07 Vitamin D3 - PO Not Given DAILY [facility] Collagenase 1 applic 06/23/17 10:00 06/27/17 09:11 Santyl - TP 1 applic DAILY [facility] Administration Docusate Sodium 100 mg 06/22/17 11:37 Colace - PO TID PRN CONSTIPATION Ferrous Sulfate 325 mg 06/23/17 10:00 06/27/17 09:06 Feosol - PO Not Given DAILY [facility] Heparin Sodium (Porcine) 5,000 unit 06/22/17 14:00 06/27/17 06:09 Heparin - SQ Not Given TID [facility] Meropenem 500 mg/ Dextrose 100 mls @ 200 mls/hr 06/22/17 22:00 06/27/17 09:11 IVPB 200 mls/hr BID [facility] Administration Vancomycin HCl 500 mg/ 100 mls @ 100 mls/hr 06/27/17 14:00 Dextrose IVPB 06/27/17 14:59 ONCE ONE Protocol Insulin Aspart 1 vial 06/22/17 16:30 06/27/17 12:16 Novolog Vial Sliding Scale - SQ Not Given ACHS [facility] Protocol Lorazepam 2 mg 06/23/17 10:00 06/27/17 09:06 Ativan - PO Not Given DAILY [facility] Pantoprazole Sodium 20 mg 06/23/17 10:00 06/27/17 09:06 Protonix - PO Not Given DAILY [facility] Polyethylene Glycol 17 gm 06/23/17 10:00 06/27/17 09:06 Miralax (For Daily Use) - PO Not Given DAILY [facility] Pregabalin 75 mg 06/23/17 10:00 06/27/17 09:06 Lyrica - PO Not Given DAILY [facility] Torsemide 80 mg 06/23/17 10:00 06/27/17 09:06 Demadex - PO Not Given DAILY [facility] ASSESSMENT/PLAN: This is a 56 yo M w PMH of ESRD (on HD TTS), NIDDM, PVD, OM, CVAx2 (w/LLE residual weakness), DM, HTN, who was sent to ER from HD due to syncopal episode. Found to have gangrene of toes and leukocytosis. Syncope of unclear etiolkogy, postural hypotension vs arrhythmia vs tia vs non convulsive seizers now no confusion, awake and alert. No more episodes of syncope fall risk precautions. cardiac monitoring discontinued EEG pending-- Performed today MRI brain pending, unable to perform 2/2 to weight cardiology consult: Signed off case Echo and carotid doppler completed Diabetic foot ulcer: gangrene with cyanosis of tips Isolation precautions due to ESBL in previous wound cx Continue meropenem 500 mg bid and Vancomycin 1g daily dressing. arterial doppler completed Podiatry consult Vascular surgery consult id consult Patient will undergo TMA today ESRD on HD continue with phoslo vit d3 nephrology consult gets HD on T, , sat continue torsemide 80 daily DM hold home medications BGM monitoring sliding scale HTN continue cavedilol GERD: continue omeprazole Constipation; continue miralex and colace. HLD Atorvaststin 80mg fluid; orally allowed electrolyte: monitor nutrition: diabetic and renal diet dvt pro: heparin sq gi pro: omeprazole dispo: d/c telemetry Visit type - Emergency Visit Emergency Visit: Yes ED Registration Date: 06/22/17 Care time: The patient presented to the Emergency Department on the above date and was hospitalized for further evaluation of their emergent condition. - New Patient This patient is new to me today: No - Critical Care Critical Care patient: No
--- NOTE | 2017-06-27 15:42 | OP ---
Operative Note - Note: Operative Date: 06/27/17 Pre-Operative Diagnosis: Forefoot gangrene left foot Operation: Transmetatarsal amputation left foot Findings: see op note Surgeon: Balaji Alcantara Anesthesia: Local, MAC Specimens Removed: bone left foot Estimated Blood Loss (mls): 100
[2017-06-27] MEDS ORDERED: DOCUSATE SODIUM 100 MG CAPSULE (FP) PO PRN (15:43)
[2017-06-27] MEDS ORDERED: HYDROmorphone HCL 2 MG TABLET PO PRN (15:43)
[2017-06-27] MEDS ORDERED: ONDANSETRON 4 MG/2 ML VIAL IVPUSH PRN (16:00)
--- NOTE | 2017-06-27 16:07 | PN ---
Teaching Attending Note Name of Resident: Maninder Peters ATTENDING PHYSICIAN STATEMENT I saw and evaluated the patient. I reviewed the resident's note and discussed the case with the resident. I agree with the resident's findings and plan as documented. SUBJECTIVE: seen in am before sx. no complaints OBJECTIVE: NAD CV: RRR, no MRG Lungs: CTAB Ext: erythema, thick skin with chronic changes seen on legs. R foot with no skin break down L foot : not examined today . ASSESSMENT AND PLAN: 56 y/o man with h/o DM , ESRD, on HD TTS, PVD, OM, CVA, morbid obesity s/p gastric sleeve , HTN, anemia, anemia, HLP, recent admission for L 2nd toe infection s/p amputation, who presented due syncope during HD , and was found to have L 3rd and 4th toe discoloration and erythema. 1- Syncope: no clear etiology yet. transient hypotension vs seizure with postictal confusion - EEG . duarte snot fit in MRI 2- Infected foot ulcer and L 3rd, 4th , 5th toe gangrene - Transmetatarsal amputation today - cont meropenem . vanco level 15 , will check level before HD tomorrow - follow cxs. - started on dilaudid, add oxycodone 3- DM : hold glipizide and cont SSI 4- HTN: cont coreg 5- ESRD: cont torsemide HD tomorrow Dispo: HLOC . dc to rehab in 2 days
--- NOTE | 2017-06-27 16:10 | OP ---
DATE OF OPERATION: 06/27/2017 PREOPERATIVE DIAGNOSIS: Gangrene, left forefoot. POSTOPERATIVE DIAGNOSIS: Gangrene, left forefoot. PROCEDURE: Left foot transmetatarsal amputation. SURGEON: Balaji Alcantara DPM [employer] L[employer]ER: Filiberto Ho, PGY-3 Resident [facility]. ANESTHESIA: IV sedation with local. ESTIMATED BLOOD LOSS: 100 mL PATHOLOGY: Bone, left foot. HEMOSTASIS: Surgical dissection. COMPLICATIONS: None. DESCRIPTION OF PROCEDURE: The patient was brought to the operating room and placed on the operating table in the supine position. I elected to not use a tourniquet during the course of the procedure. Following induction of IV sedation, local anesthesia was achieved utilizing 20 mL of 2% lidocaine plain. The left foot was scrubbed, prepped, and draped in usual sterile fashion. Attention was directed to the left foot where there was persistent forefoot dry gangrene to digits 3, 4, 5, as well as a hallux distal tuft ulcer and a postoperative 2nd ray fibrotic ulcer was visualized and appreciated. I began by performing a circumferential incision at the level of the metatarsophalangeal joints with careful attention to make the plantar incision longer than the dorsal. The digits were disarticulated at the level of the metatarsophalangeal joints, starting with the hallux, ending with digits 3, 4, and 5. All digits removed in total and sent to Pathology for analysis. Next, dorsal linear periosteal incisions were made overlying the 1st metatarsal, 2nd ray stump, 3rd, 4th, and 5th metatarsals. The metatarsal heads were carefully resected using the sagittal saw, starting with the 1st metatarsal, ending with the 5th metatarsal. Care was taken to preserve the appropriate metatarsal parabola. Rough edges of the metatarsal shaft were smoothed with a manual bone rasp. Surgical site was copiously irrigated with sterile saline. The plantar flap was debulked as well as all extensor and flexor tendons removed from the TMA site. The surgical site was again copiously irrigated with sterile saline. A 1/4-inch Findlay drain was implemented into the subcutaneous tissues of the plantar flap, exiting medially. The surgical site was loosely coapted and maintained utilizing 3-0 nylon in a simple interrupted suture fashion. Of note, there was appropriate bleeding at the plantar flap. Following the conclusion of the procedure, the surgical site was covered with a Xeroform, and a sterile compressive dressing was applied to the left foot consisting of sterile gauze, ABD, clean Kerlix, and an Nicho wrap. Patient tolerated the procedure and anesthesia well without complications. He was transferred from the operating room to recovery unit with vital signs stable and neurovasculature intact to the left foot. EMA GAYLE/[id number] MTDMeri
--- NOTE | 2017-06-27 16:48 | PN ---
Progress Note, Physician History of Present Illness: Pt seen and examined at bedside. He is in the recovery room. - Current Medication List Current Medications: Active Medications Albuterol Sulfate (Ventolin 0.083% Nebulizer Soln -) 1 amp NEB [facility] Aspirin (Asa -) 81 mg PO DAILY [facility] Atorvastatin Calcium (Lipitor -) 80 mg PO HS [facility] Calcium Acetate (Phoslo -) 1,334 mg PO TIDCM [facility] Carvedilol (Coreg -) 12.5 mg PO BID [facility] Cholecalciferol (Vitamin D3 -) 2,000 unit PO DAILY [facility] Collagenase (Santyl -) 1 applic TP DAILY [facility] Docusate Sodium (Colace -) 100 mg PO TID PRN PRN Reason: CONSTIPATION Fentanyl (Sublimaze Injection -) 25 mcg IVPUSH [id number] PRN PRN Reason: PAIN-PACU ORDER X 4 DOSES ONLY Ferrous Sulfate (Feosol -) 325 mg PO DAILY [facility] Heparin Sodium (Porcine) (Heparin -) 5,000 unit SQ TID [facility] Hydromorphone HCl (Dilaudid -) 2 mg PO Q6H PRN PRN Reason: PAIN LEVEL 6-10 Meropenem 500 mg/ Dextrose 100 mls @ 200 mls/hr IVPB BID [facility] Vancomycin HCl 500 mg/ (Dextrose) 100 mls @ 100 mls/hr IVPB ONCE ONE PRN Reason: Protocol Stop: 06/27/17 16:42 Insulin Aspart (Novolog Vial Sliding Scale -) 1 vial SQ ACHS [facility] PRN Reason: Protocol Lorazepam (Ativan -) 2 mg PO DAILY [facility] Ondansetron HCl (Zofran Injection) 4 mg IVPUSH Q6H PRN PRN Reason: NAUSEA AND/OR VOMITING Pantoprazole Sodium (Protonix -) 20 mg PO DAILY [facility] Polyethylene Glycol (Miralax (For Daily Use) -) 17 gm PO DAILY [facility] Pregabalin (Lyrica -) 75 mg PO DAILY [facility] Torsemide (Demadex -) 80 mg PO DAILY [facility] - Objective Vital Signs: Vital Signs Temperature 98.2 F 06/27/17 16:31 Pulse Rate 80 06/27/17 16:31 Respiratory Rate 20 06/27/17 16:31 Blood Pressure 110/60 06/27/17 16:31 O2 Sat by Pulse Oximetry (%) 98 06/27/17 16:31 Constitutional: Yes: Calm Eyes: Yes: Conjunctiva Clear HENT: Yes: Atraumatic Cardiovascular: Yes: S1, S2 Respiratory: Yes: CTA Bilaterally Gastrointestinal: Yes: Soft, Abdomen, Obese Genitourinary: Yes: WNL Extremities: Yes: WNL Edema: Yes Edema: LLE: 1+, RLE: 1+ Wound/Incision: Yes: Dressing Dry and Intact Neurological: Yes: Other (drowsy) Labs: CBC, BMP 06/27/17 08:45 06/27/17 08:45 INR, PTT INR 1.26 (0.82-1.09) H 06/23/17 06:25 Problem List - Problems (1) ESRD (end stage renal disease) Code(s): N18.6 - END STAGE RENAL DISEASE (2) Gangrene of toe of left foot Code(s): I96 - GANGRENE, NOT ELSEWHERE CLASSIFIED Assessment/Plan Current Medications Generic Name Dose Route Start Last Admin Trade Name Freq PRN Reason Stop Dose Admin Albuterol Sulfate 1 amp 06/27/17 20:00 Ventolin 0.083% Nebulizer Soln - NEB RBID [facility] Aspirin 81 mg 06/28/17 10:00 Asa - PO DAILY [facility] Atorvastatin Calcium 80 mg 06/27/17 22:00 Lipitor - PO HS [facility] Calcium Acetate 1,334 mg 06/27/17 17:30 Phoslo - PO TIDCM [facility] Carvedilol 12.5 mg 06/27/17 22:00 Coreg - PO BID [facility] Cholecalciferol 2,000 unit 06/28/17 10:00 Vitamin D3 - PO DAILY [facility] Collagenase 1 applic 06/28/17 10:00 Santyl - TP DAILY [facility] Docusate Sodium 100 mg 06/27/17 15:43 Colace - PO TID PRN CONSTIP[facility] Fentanyl 25 mcg 06/27/17 16:00 Sublimaze Injection - IVPUSH [id number] PRN PAIN-PACU ORDER X 4 DOSES ONLY Ferrous Sulfate 325 mg 06/28/17 10:00 Feosol - PO DAILY [facility] Heparin Sodium (Porcine) 5,000 unit 06/27/17 22:00 Heparin - SQ TID [facility] Hydromorphone HCl 2 mg 06/27/17 15:43 Dilaudid - PO Q6H PRN PAIN LEVEL 6-10 Meropenem 500 mg/ Dextrose 100 mls @ 200 mls/hr 06/27/17 22:00 IVPB BID [facility] Vancomycin HCl 500 mg/ 100 mls @ 100 mls/hr 06/27/17 15:43 Dextrose IVPB 06/27/17 16:42 ONCE ONE Protocol Insulin Aspart 1 vial 06/27/17 16:30 Novolog Vial Sliding Scale - SQ ACHS [facility] Protocol Lorazepam 2 mg 06/28/17 10:00 Ativan - PO DAILY [facility] Ondansetron HCl 4 mg 06/27/17 16:00 Zofran Injection IVPUSH Q6H PRN NAUSEA AND/OR VOMITING Pantoprazole Sodium 20 mg 06/28/17 10:00 Protonix - PO DAILY [facility] Polyethylene Glycol 17 gm 06/28/17 10:00 Miralax (For Daily Use) - PO DAILY [facility] Pregabalin 75 mg 06/28/17 10:00 Lyrica - PO DAILY [facility] Torsemide 80 mg 06/28/17 10:00 Demadex - PO DAILY [facility] Impression 1. ESRD 2. anemia 3. HTN 4. morbid obesity 5. CVA 6. hyperlipidemia 7. proteinuria - nephrotic 8. PVD 9. lower ext gangrene 10. syncope Plan - pt s/p amputation, discussed with podiatry - will arrange for HD tomorrow - cont wound care - epogen for anemia - resume meds post op Dr Win
[2017-06-27] MEDS: oxyCODONE HCL 5 MG TABLET PO PRN (18:34)
[2017-06-27] MEDS: ATORVASTATIN CA 80 MG TABLET (FP) PO SCH (22:45)
[2017-06-27] MEDS: HYDROmorphone HCL 2 MG TABLET PO PRN (23:54)
[2017-06-28] MEDS: HYDROmorphone HCL 2 MG TABLET PO PRN (05:48)
[2017-06-28] MEDS: HEPARIN NA (PORCINE) 5,000 UNITS/ML 1ML VIAL SQ SCH ×3 (05:49→22:21)
[2017-06-28] MEDS: INSULIN SLIDING SCALE (NOVOLOG) 1 VIAL SQ SCH ×4 (06:12→22:24)
[2017-06-28] MEDS: ALBUTEROL SO4 0.083% IH SOL 2.5 MG/3 ML VIAL.NEB. NEB SCH ×2 (07:48→20:59)
[2017-06-28 08:12] LABS: BASO % 2.6 % (0-2.0); EOS % 6.5 % (0-4.5); HEMATOCRIT 22.5 % (35.4-49); HEMOGLOBIN 7.4 GM/dL (11.7-16.9); LYMPH % 16.2 % (8-40); MCHC 33.2 g/dl (32.0-35.9); MEAN CELL VOLUME 90.5 fl (80-96); MEAN PLT VOLUME 8.9 fl (7.5-11.1); MONO % 9.3 % (3.8-10.2); NEUT % 65.4 % (42.8-82.8); PLATELET COUNT 270 K/MM3 (134-434); RBC 2.48 M/mm3 (4.00-5.60); RDW 15.2 % (11.9-15.9); WHITE BLOOD COUNT 9.7 K/mm3 (4.0-10.0)
[2017-06-28 08:30] LABS: ANION GAP 9 (8-16); BLOOD UREA NITROGEN 52 mg/dL (7-18); CHLORIDE 101 mmol/L (98-107); CO2 28 mmol/L (21-32); GLUCOSE,RANDOM 92 mg/dL (74-106); POTASSIUM 4.3 mmol/L (3.5-5.1); SODIUM 138 mmol/L (136-145)
[2017-06-28 09:02] LABS: CREATININE 8.6 mg/dL (0.7-1.3)
--- NOTE | 2017-06-28 09:07 | PN ---
Physical Exam: SUBJECTIVE: Patient seen and examined Post op day 1 s/p TMA. No acute events overnight. Patient states pain is controlled with the oxycodone, but would like IV medications if possible. OBJECTIVE: Vital Signs Period Temp Pulse Resp BP Sys/Leon Pulse Ox Last 24 Hr 97.6 F-98.5 F 60-80 16-20 102-132/39-70 96-100 GENERAL: Awake, alert, and fully oriented, in no acute distress. HEAD: Normal with no signs of trauma. EARS, NOSE, THROAT: Oropharynx clear without exudates. Moist mucous membranes. NECK: Normal range of motion LUNGS: Breath sounds equal, clear to auscultation bilaterally. No wheezes, and no crackles. No accessory muscle use. HEART: Regular rate and rhythm, normal S1 and S2 without murmur, ABDOMEN: Soft, nontender, not distended, normoactive bowel sounds, no guarding, no rebound, no masses. MUSCULOSKELETAL: Normal range of motion at all joints. No bony deformities or tenderness. No CVA tenderness. UPPER EXTREMITIES: 2+ pulses, warm, well-perfused. No cyanosis. No clubbing LOWER EXTREMITIES: Left: Wrapped NEUROLOGICAL: Cranial nerves II-XII intact. Normal speech. PSYCHIATRIC: Cooperative. Good eye contact. Appropriate mood and affect. SKIN: Warm, dry, Laboratory Results - last 24 hr 06/27/17 06/27/17 06/27/17 08:45 08:45 08:45 WBC 7.5 RBC 2.94 L Hgb 8.7 L Hct 26.5 L MCV 90.0 MCH 29.6 MCHC 32.9 RDW 15.1 Plt Count 324 MPV 8.8 Neutrophils % 67.8 Lymphocytes % 14.7 Monocytes % 8.5 Eosinophils % 6.5 H Basophils % 2.5 H Sodium 140 Potassium 4.0 Chloride 101 Carbon Dioxide 30 Anion Gap 9 BUN 39 H D Creatinine 7.2 H D POC Glucometer Random Glucose 121 H D Calcium 8.0 L Random Vancomycin 15.169 06/27/17 06/27/17 06/27/17 12:11 16:43 21:05 WBC RBC Hgb Hct MCV MCH MCHC RDW Plt Count MPV Neutrophils % Lymphocytes % Monocytes % Eosinophils % Basophils % Sodium Potassium Chloride Carbon Dioxide Anion Gap BUN Creatinine POC Glucometer 155 130 268 Random Glucose Calcium Random Vancomycin 0406/28/17 06/28/17 05:53 07:40 07:40 WBC 9.7 RBC 2.48 L Hgb 7.4 L D Hct 22.5 L D MCV 90.5 MCH 30.0 MCHC 33.2 RDW 15.2 Plt Count 270 MPV 8.9 Neutrophils % 65.4 Lymphocytes % 16.2 Monocytes % 9.3 Eosinophils % 6.5 H Basophils % 2.6 H Sodium Potassium Chloride Carbon Dioxide Anion Gap BUN Creatinine POC Glucometer 102 Random Glucose Calcium Random Vancomycin 23.031 06/28/17 07:40 WBC RBC Hgb Hct MCV MCH MCHC RDW Plt Count MPV Neutrophils % Lymphocytes % Monocytes % Eosinophils % Basophils % Sodium 138 Potassium 4.3 Chloride 101 Carbon Dioxide 28 Anion Gap 9 BUN 52 H D Creatinine 8.6 H* POC Glucometer Random Glucose 92 D Calcium 8.0 L Random Vancomycin Active Medications Generic Name Dose Route Start Last Admin Trade Name Freq PRN Reason Stop Dose Admin Albuterol Sulfate 1 amp 06/27/17 20:00 06/28/17 07:48 Ventolin 0.083% Nebulizer Soln - NEB 1 amp RBID [facility] Administration Aspirin 81 mg 06/28/17 10:00 Asa - PO DAILY [facility] Atorvastatin Calcium 80 mg 06/27/17 22:00 06/27/17 22:45 Lipitor - PO 80 mg HS [facility] Administration Calcium Acetate 1,334 mg 06/27/17 17:30 06/27/17 17:45 Phoslo - PO 1,334 mg TIDCM [facility] Administration Carvedilol 12.5 mg 06/27/17 22:00 06/27/17 22:45 Coreg - PO 12.5 mg BID [facility] Administration Cholecalciferol 2,000 unit 06/28/17 10:00 Vitamin D3 - PO DAILY [facility] Collagenase 1 applic 06/28/17 10:00 Santyl - TP DAILY [facility] Docusate Sodium 100 mg 06/27/17 15:43 Colace - PO Q8H PRN CONSTIPATION Epoetin Lawrence 6,000 unit 06/28/17 16:48 Epogen - IVPUSH 06/28/17 16:49 ONCE ONE Ferrous Sulfate 325 mg 06/28/17 10:00 Feosol - PO DAILY [facility] Heparin Sodium (Porcine) 5,000 unit 06/27/17 22:00 06/28/17 05:49 Heparin - SQ 5,000 unit TID [facility] Administration Hydromorphone HCl 2 mg 06/27/17 17:46 06/28/17 05:48 Dilaudid - PO 2 mg Q6H PRN Administration PAIN LEVEL 7 - 10 Meropenem 500 mg/ Dextrose 100 mls @ 200 mls/hr 06/27/17 22:00 06/27/17 22:09 IVPB 200 mls/hr BID [facility] Administration Sodium Chloride 250 mls @ 3,000 mls/hr 06/27/17 16:48 Normal Saline - IV 06/28/17 16:48 PRN PRN Hypotension during Dialysis Insulin Aspart 1 vial 06/27/17 16:30 06/28/17 06:12 Novolog Vial Sliding Scale - SQ Not Given ACHS [facility] Protocol Lorazepam 2 mg 06/28/17 10:00 Ativan - PO DAILY [facility] Ondansetron HCl 4 mg 06/27/17 16:00 Zofran Injection IVPUSH Q6H PRN NAUSEA AND/OR VOMITING Oxycodone HCl 10 mg 06/27/17 17:46 06/27/17 18:34 Roxicodone - PO 10 mg Q4H PRN Administration PAIN LEVEL 4 - 6 Pantoprazole Sodium 20 mg 06/28/17 10:00 Protonix - PO DAILY [facility] Polyethylene Glycol 17 gm 06/28/17 10:00 Miralax (For Daily Use) - PO DAILY [facility] Pregabalin 75 mg 06/28/17 10:00 Lyrica - PO DAILY [facility] Torsemide 80 mg 06/28/17 10:00 Demadex - PO DAILY [facility] ASSESSMENT/PLAN: This is a 56 yo M w PMH of ESRD (on HD TTS), NIDDM, PVD, OM, CVAx2 (w/LLE residual weakness), DM, HTN, who was sent to ER from HD due to syncopal episode. Found to have gangrene of toes and leukocytosis. Syncope of unclear etiolkogy, postural hypotension vs arrhythmia vs tia vs non convulsive seizers now no confusion, awake and alert. No more episodes of syncope fall risk precautions. cardiac monitoring discontinued EEG normal MRI brain pending, unable to perform 2/2 to weight cardiology consult: Signed off case Echo and carotid doppler completed Diabetic foot ulcer: Post op s/p TMA on 06/27 Isolation precautions due to ESBL in previous wound cx Continue meropenem 500 mg bid and Vancomycin 1g, Vanco level today--23 daily dressing. arterial doppler completed Podiatry consult Vascular surgery consult id consult Pain control with po dilaudid and oxycodone Will need PT and rehab. ESRD on HD continue with phoslo vit d3 nephrology consult gets HD on T, Th, sat continue torsemide 80 daily DM hold home medications BGM monitoring sliding scale HTN continue cavedilol GERD: continue omeprazole Constipation; continue miralex and colace. HLD Atorvaststin 80mg fluid; orally allowed electrolyte: monitor nutrition: diabetic and renal diet dvt pro: heparin sq gi pro: omeprazole dispo: d/c telemetry Visit type - Emergency Visit Emergency Visit: Yes ED Registration Date: 06/22/17 Care time: The patient presented to the Emergency Department on the above date and was hospitalized for further evaluation of their emergent condition. - New Patient This patient is new to me today: No - Critical Care Critical Care patient: No
[2017-06-28] MEDS ORDERED: SODIUM CHLORIDE 250 ML IV PRN (09:40)
[2017-06-28] MEDS ORDERED: EPOETIN ALFA 3,000 UNIT/1 ML ML IVPUSH ONE (10:00)
[2017-06-28 10:42] LABS: ALBUMIN 2.2 g/dl (3.4-5.0); ANION GAP 8 (8-16); BLOOD UREA NITROGEN 51 mg/dL (7-18); CALCIUM 7.9 mg/dL (8.5-10.1); CHLORIDE 102 mmol/L (98-107); CO2 28 mmol/L (21-32); GLUCOSE,RANDOM 215 mg/dL (74-106); POTASSIUM 4.3 mmol/L (3.5-5.1); SGOT/AST 22 U/L (15-37); SGPT/ALT 14 U/L (12-78); SODIUM 138 mmol/L (136-145)
[2017-06-28 10:48] LABS: ALK PHOS 47 U/L (45-117); BILIRUBIN,TOTAL 0.4 mg/dL (0.2-1.0); TOT PROT 5.8 g/dl (6.4-8.2)
[2017-06-28] MEDS ORDERED: PT OWN MED DRAWER 7, Y5N ONE ×2 (11:18→22:14)
[2017-06-28 11:21] LABS: CREATININE 8.7 mg/dL (0.7-1.3)
--- NOTE | 2017-06-28 11:26 | PN ---
Progress Note (short form) - Note Progress Note: Podiatry F/U: Seen/evaluated at bedside in HD, no apparent distress. Denies F/V/N/C/SOB/CP. Pain appropriately controlled with PO analgesics. Afebrile, VSS. S/p L foot transmetatarsal amputation POD#1. KEEGAN: L foot: dressing C/D/I, no active bleeding, lucille draining in place. Sutures well coapted, no evidence of dehiscence. No purulent drainage, no fluctuance, no periwound erythema, no ascending cellulitis, no signs of active infection. Mild tenderness to palpation. The stump is warm and pink, no ischemic changes to the foot. WBC: 9.7 OR Cx: pending Imp: 57 year old DM, PVD M s/p L foot transmetatarsal amputation POD#1 1. IV abx per ID 2. Lucille drain pulled and xeroform + dry sterile dressing applied to L foot 3. Non-weightbearing L foot 4. PT eval 5. Pain control 6. Will need SNF placement upon discharge. Will NOT return to [facility] SNF. 7. Will follow. Amarilis Alcantara DPM
[2017-06-28] MEDS: oxyCODONE HCL 5 MG TABLET PO PRN ×2 (11:31→20:30)
--- NOTE | 2017-06-28 12:52 | PN ---
Teaching Attending Note Name of Resident: Maninder Peters ATTENDING PHYSICIAN STATEMENT I saw and evaluated the patient. I reviewed the resident's note and discussed the case with the resident. I agree with the resident's findings and plan as documented. SUBJECTIVE: No complaints. OBJECTIVE: Vital Signs Period Temp Pulse Resp BP Sys/Leon Pulse Ox Last 24 Hr 97.6 F-98.5 F 60-81 16-20 102-134/39-71 96-100 HEART: S1S2, RRR LUNGS: Clear ABDOMEN: Obese, soft, nontender, nondistended, normal BS EXTREMITIES: 1+ edema with chronic changes of both legs. Left foot wrapped Laboratory Results - last 24 hr 06/26/17 06/27/17 06/27/17 13:15 16:43 21:05 WBC RBC Hgb Hct MCV MCH MCHC RDW Plt Count MPV Neutrophils % Lymphocytes % Monocytes % Eosinophils % Basophils % Sodium Potassium Chloride Carbon Dioxide Anion Gap BUN Creatinine Creat Clearance w eGFR POC Glucometer 130 268 Random Glucose Calcium Total Bilirubin AST ALT Alkaline Phosphatase Total Protein Albumin Random Vancomycin Blood Type A POSITIVE Antibody Screen Negative Crossmatch See Detail 06/28/17 06/28/17 06/28/17 05:53 07:40 07:40 WBC 9.7 RBC 2.48 L Hgb 7.4 L D Hct 22.5 L D MCV 90.5 MCH 30.0 MCHC 33.2 RDW 15.2 Plt Count 270 MPV 8.9 Neutrophils % 65.4 Lymphocytes % 16.2 Monocytes % 9.3 Eosinophils % 6.5 H Basophils % 2.6 H Sodium Potassium Chloride Carbon Dioxide Anion Gap BUN Creatinine Creat Clearance w eGFR POC Glucometer 102 Random Glucose Calcium Total Bilirubin AST ALT Alkaline Phosphatase Total Protein Albumin Random Vancomycin 23.031 Blood Type Antibody Screen Crossmatch 06/28/17 06/28/17 07:40 09:25 WBC RBC Hgb Hct MCV MCH MCHC RDW Plt Count MPV Neutrophils % Lymphocytes % Monocytes % Eosinophils % Basophils % Sodium 138 138 Potassium 4.3 4.3 Chloride 101 102 Carbon Dioxide 28 28 Anion Gap 9 8 BUN 52 H D 51 H Creatinine 8.6 H* 8.7 H* Creat Clearance w eGFR 6.34 POC Glucometer Random Glucose 92 D 215 H D Calcium 8.0 L 7.9 L Total Bilirubin 0.4 D AST 22 ALT 14 D Alkaline Phosphatase 47 Total Protein 5.8 L Albumin 2.2 L Random Vancomycin Blood Type Antibody Screen Crossmatch Current Medications Generic Name Dose Route Start Last Admin Trade Name Freq PRN Reason Stop Dose Admin Albuterol Sulfate 1 amp 06/27/17 20:00 06/28/17 07:48 Ventolin 0.083% Nebulizer Soln - NEB 1 amp RBID [facility] Administration Aspirin 81 mg 06/28/17 10:00 Asa - PO DAILY [facility] Atorvastatin Calcium 80 mg 06/27/17 22:00 06/27/17 22:45 Lipitor - PO 80 mg HS [facility] Administration Calcium Acetate 1,334 mg 06/27/17 17:30 06/27/17 17:45 Phoslo - PO 1,334 mg TIDCM [facility] Administration Carvedilol 12.5 mg 06/27/17 22:00 06/27/17 22:45 Coreg - PO 12.5 mg BID [facility] Administration Cholecalciferol 2,000 unit 06/28/17 10:00 Vitamin D3 - PO DAILY [facility] Collagenase 1 applic 06/28/17 10:00 Santyl - TP DAILY [facility] Docusate Sodium 100 mg 06/27/17 15:43 Colace - PO Q8H PRN CONSTIPATION Ferrous Sulfate 325 mg 06/28/17 10:00 Feosol - PO DAILY [facility] Heparin Sodium (Porcine) 5,000 unit 06/27/17 22:00 06/28/17 05:49 Heparin - SQ 5,000 unit TID [facility] Administration Hydromorphone HCl 2 mg 06/27/17 17:46 06/28/17 05:48 Dilaudid - PO 2 mg Q6H PRN Administration PAIN LEVEL 7 - 10 Meropenem 500 mg/ Dextrose 100 mls @ 200 mls/hr 06/27/17 22:00 06/27/17 22:09 IVPB 200 mls/hr BID [facility] Administration Insulin Aspart 1 vial 06/27/17 16:30 06/28/17 11:35 Novolog Vial Sliding Scale - SQ Not Given ACHS [facility] Protocol Lorazepam 2 mg 06/28/17 10:00 Ativan - PO DAILY [facility] Ondansetron HCl 4 mg 06/27/17 16:00 Zofran Injection IVPUSH Q6H PRN NAUSEA AND/OR VOMITING Oxycodone HCl 10 mg 06/27/17 17:46 06/28/17 11:31 Roxicodone - PO 10 mg Q4H PRN Administration PAIN LEVEL 4 - 6 Pantoprazole Sodium 20 mg 06/28/17 10:00 Protonix - PO DAILY [facility] Polyethylene Glycol 17 gm 06/28/17 10:00 Miralax (For Daily Use) - PO DAILY [facility] Pregabalin 75 mg 06/28/17 10:00 Lyrica - PO DAILY [facility] Torsemide 80 mg 06/28/17 10:00 Demadex - PO DAILY [facility] ASSESSMENT AND PLAN: This is a 56 year old man with a history of ESRD, anemia, type 2 DM, diabetic peripheral neuropathy, HTN, hyperlipidemia, morbid obesity, gastric bypass, osteomyelitis, PAD, CVA who presented to the ED after passing out during HD. 1. Syncope - Etiology unclear 2. Diabetic foot infection with gangrene of left 3rd, 4th, 5th toes - s/p left TMA yesterday - Continue Merrem 3. ESRD - Continue HD, PhosLo 4. HTN - Continue Coreg, Torsemide 5. Hyperlipidemia - Continue Lipitor 6. Type 2 DM with peripheral neuropathy - Glipizide held - Continue Novolog sliding scale, Lyrica 7. History of CVA - Continue aspirin 8. Anemia secondary to ESRD - Continue Epogen, ferrous sulfate 9. Morbid obesity, history of gastric bypass
--- NOTE | 2017-06-28 12:53 | PN ---
Progress Note, Physician History of Present Illness: Pt seen and examined at bedside. He is awake and alert. He is getting HD. - Current Medication List Current Medications: Active Medications Albuterol Sulfate (Ventolin 0.083% Nebulizer Soln -) 1 amp NEB RBID [facility] Last Admin: 06/28/17 07:48 Dose: 1 amp Aspirin (Asa -) 81 mg PO DAILY [facility] Atorvastatin Calcium (Lipitor -) 80 mg PO HS [facility] Last Admin: 06/27/17 22:45 Dose: 80 mg Calcium Acetate (Phoslo -) 1,334 mg PO TIDCM [facility] Last Admin: 06/27/17 17:45 Dose: 1,334 mg Carvedilol (Coreg -) 12.5 mg PO BID [facility] Last Admin: 06/27/17 22:45 Dose: 12.5 mg Cholecalciferol (Vitamin D3 -) 2,000 unit PO DAILY [facility] Collagenase (Santyl -) 1 applic TP DAILY [facility] Docusate Sodium (Colace -) 100 mg PO Q8H PRN PRN Reason: CONSTIPATION Ferrous Sulfate (Feosol -) 325 mg PO DAILY [facility] Heparin Sodium (Porcine) (Heparin -) 5,000 unit SQ TID [facility] Last Admin: 06/28/17 05:49 Dose: 5,000 unit Hydromorphone HCl (Dilaudid -) 2 mg PO Q6H PRN PRN Reason: PAIN LEVEL 7 - 10 Last Admin: 06/28/17 05:48 Dose: 2 mg Meropenem 500 mg/ Dextrose 100 mls @ 200 mls/hr IVPB BID [facility] Last Admin: 06/27/17 22:09 Dose: 200 mls/hr Insulin Aspart (Novolog Vial Sliding Scale -) 1 vial SQ ACHS [facility] PRN Reason: Protocol Last Admin: 06/28/17 11:35 Dose: Not Given Lorazepam (Ativan -) 2 mg PO DAILY [facility] Ondansetron HCl (Zofran Injection) 4 mg IVPUSH Q6H PRN PRN Reason: NAUSEA AND/OR VOMITING Oxycodone HCl (Roxicodone -) 10 mg PO Q4H PRN PRN Reason: PAIN LEVEL 4 - 6 Last Admin: 06/28/17 11:31 Dose: 10 mg Pantoprazole Sodium (Protonix -) 20 mg PO DAILY [facility] Polyethylene Glycol (Miralax (For Daily Use) -) 17 gm PO DAILY [facility] Pregabalin (Lyrica -) 75 mg PO DAILY [facility] Torsemide (Demadex -) 80 mg PO DAILY [facility] - Objective Vital Signs: Vital Signs Temperature 98.4 F 06/28/17 06:03 Pulse Rate 71 06/28/17 11:50 Respiratory Rate 18 06/28/17 11:50 Blood Pressure 134/71 06/28/17 11:50 O2 Sat by Pulse Oximetry (%) 96 06/27/17 20:00 Constitutional: Yes: Calm Eyes: Yes: Conjunctiva Clear HENT: Yes: Atraumatic Neck: Yes: Supple Cardiovascular: Yes: S1, S2 Respiratory: Yes: CTA Bilaterally Gastrointestinal: Yes: Normal Bowel Sounds, Soft, Abdomen, Obese Genitourinary: Yes: WNL Musculoskeletal: Yes: Other (dressing in place) Edema: Yes Edema: LLE: 1+, RLE: 1+ Wound/Incision: Yes: Dressing Dry and Intact Neurological: Yes: Oriented Psychiatric: Yes: Oriented Labs: CBC, BMP 06/28/17 07:40 06/28/17 09:25 INR, PTT INR 1.26 (0.82-1.09) H 06/23/17 06:25 Problem List - Problems (1) ESRD (end stage renal disease) Code(s): N18.6 - END STAGE RENAL DISEASE (2) Gangrene of toe of left foot Code(s): I96 - GANGRENE, NOT ELSEWHERE CLASSIFIED Assessment/Plan Current Medications Generic Name Dose Route Start Last Admin Trade Name Freq PRN Reason Stop Dose Admin Albuterol Sulfate 1 amp 06/27/17 20:00 06/28/17 07:48 Ventolin 0.083% Nebulizer Soln - NEB 1 amp RBID [facility] Administration Aspirin 81 mg 06/28/17 10:00 Asa - PO DAILY [facility] Atorvastatin Calcium 80 mg 06/27/17 22:00 06/27/17 22:45 Lipitor - PO 80 mg HS [facility] Administration Calcium Acetate 1,334 mg 06/27/17 17:30 06/27/17 17:45 Phoslo - PO 1,334 mg TIDCM [facility] Administration Carvedilol 12.5 mg 06/27/17 22:00 06/27/17 22:45 Coreg - PO 12.5 mg BID [facility] Administration Cholecalciferol 2,000 unit 06/28/17 10:00 Vitamin D3 - PO DAILY [facility] Collagenase 1 applic 06/28/17 10:00 Santyl - TP DAILY [facility] Docusate Sodium 100 mg 06/27/17 15:43 Colace - PO Q8H PRN CONSTIPATION Ferrous Sulfate 325 mg 06/28/17 10:00 Feosol - PO DAILY [facility] Heparin Sodium (Porcine) 5,000 unit 06/27/17 22:00 06/28/17 05:49 Heparin - SQ 5,000 unit TID [facility] Administration Hydromorphone HCl 2 mg 06/27/17 17:46 06/28/17 05:48 Dilaudid - PO 2 mg Q6H PRN Administration PAIN LEVEL 7 - 10 Meropenem 500 mg/ Dextrose 100 mls @ 200 mls/hr 06/27/17 22:00 06/27/17 22:09 IVPB 200 mls/hr BID [facility] Administration Insulin Aspart 1 vial 06/27/17 16:30 06/28/17 11:35 Novolog Vial Sliding Scale - SQ Not Given ACHS [facility] Protocol Lorazepam 2 mg 06/28/17 10:00 Ativan - PO DAILY [facility] Ondansetron HCl 4 mg 06/27/17 16:00 Zofran Injection IVPUSH Q6H PRN NAUSEA AND/OR VOMITING Oxycodone HCl 10 mg 06/27/17 17:46 06/28/17 11:31 Roxicodone - PO 10 mg Q4H PRN Administration PAIN LEVEL 4 - 6 Pantoprazole Sodium 20 mg 06/28/17 10:00 Protonix - PO DAILY [facility] Polyethylene Glycol 17 gm 06/28/17 10:00 Miralax (For Daily Use) - PO DAILY [facility] Pregabalin 75 mg 06/28/17 10:00 Lyrica - PO DAILY [facility] Torsemide 80 mg 06/28/17 10:00 Demadex - PO DAILY [facility] Impression 1. ESRD 2. anemia 3. HTN 4. morbid obesity 5. CVA 6. hyperlipidemia 7. proteinuria - nephrotic 8. PVD 9. lower ext gangrene 10. syncope Plan - HD today - will give a unit of blood - discussed with podiatry - cont wound care - epogen for anemia Dr Win
[2017-06-28] MEDS: TORSEMIDE 20 MG TABLET (FP) PO SCH (14:33)
[2017-06-28] MEDS: LORazepam 1 MG TABLET PO SCH (14:34)
[2017-06-28] MEDS: PANTOPRAZOLE 20 MG TABLET (FP) PO SCH (14:35)
[2017-06-28] MEDS: CALCIUM ACETATE 667 MG CAPSULE (FP) PO SCH ×3 (14:35→17:01)
[2017-06-28] MEDS: MEROPENEM 500 MG in DEXTROSE 5%-WATER - 100 ML IVPB SCH ×2 (14:36→22:22)
[2017-06-28] MEDS: FERROUS SO4 325 MG TABLET (FP) PO SCH (14:36)
[2017-06-28] MEDS: PREGABALIN 75 MG CAPSULE PO SCH (14:36)
[2017-06-28] MEDS: CHOLECALCIFEROL (VITAMIN D3) 1,000 UNIT TABLET (FP) PO SCH (14:36)
[2017-06-28] MEDS: CARVEDILOL 12.5 MG TABLET (FP) PO SCH ×2 (14:36→22:21)
[2017-06-28] MEDS: ASPIRIN 81 MG CHEWABLE TABLETS PO SCH (14:36)
[2017-06-28] MEDS: COLLAGENASE CLOSTRIDIUM HIST. 30 GRAMS TUBE TP SCH (14:37)
[2017-06-28] MEDS: POLYETHYLENE GLYCOL 3350 119 GM BTL PO SCH (14:43)
[2017-06-28] MEDS ORDERED: INSULIN (NOVOLOG) ASPART 100 UNITS/ML 10ML VIAL ONE (22:14)
[2017-06-28] MEDS: ATORVASTATIN CA 80 MG TABLET (FP) PO SCH (22:21)
[2017-06-29] MEDS: oxyCODONE HCL 5 MG TABLET PO PRN ×2 (03:20→19:59)
[2017-06-29] MEDS ORDERED: INSULIN (NOVOLOG) ASPART 100 UNITS/ML 10ML VIAL ONE ×3 (06:02→17:06)
[2017-06-29] MEDS: HEPARIN NA (PORCINE) 5,000 UNITS/ML 1ML VIAL SQ SCH ×3 (06:19→22:17)
[2017-06-29] MEDS: INSULIN SLIDING SCALE (NOVOLOG) 1 VIAL SQ SCH ×4 (06:20→22:17)
[2017-06-29] MEDS: ALBUTEROL SO4 0.083% IH SOL 2.5 MG/3 ML VIAL.NEB. NEB SCH ×2 (07:35→20:15)
[2017-06-29 08:56] LABS: BASO % 2.9 % (0-2.0); EOS % 5.4 % (0-4.5); HEMATOCRIT 26.3 % (35.4-49); HEMOGLOBIN 8.8 GM/dL (11.7-16.9); LYMPH % 12.7 % (8-40); MCH 30.3 pg (25.7-33.7); MCHC 33.6 g/dl (32.0-35.9); MEAN CELL VOLUME 90.4 fl (80-96); MEAN PLT VOLUME 9.2 fl (7.5-11.1); MONO % 8.8 % (3.8-10.2); NEUT % 70.2 % (42.8-82.8); PLATELET COUNT 286 K/MM3 (134-434); RBC 2.91 M/mm3 (4.00-5.60); RDW 15.7 % (11.9-15.9); WHITE BLOOD COUNT 9.5 K/mm3 (4.0-10.0)
[2017-06-29] MEDS ORDERED: PT OWN MED DRAWER 7, Y5N ONE ×2 (09:15→21:46)
[2017-06-29 09:18] LABS: ANION GAP 7 (8-16); BLOOD UREA NITROGEN 36 mg/dL (7-18); CALCIUM 7.8 mg/dL (8.5-10.1); CHLORIDE 95 mmol/L (98-107); CO2 33 mmol/L (21-32); CREATININE 6.4 mg/dL (0.7-1.3); GLUCOSE,RANDOM 205 mg/dL (74-106); MAGNESIUM 1.9 mg/dL (1.8-2.4); PHOSPHOROUS 4.9 mg/dL (2.5-4.9); POTASSIUM 3.8 mmol/L (3.5-5.1); SODIUM 135 mmol/L (136-145)
[2017-06-29] MEDS: TORSEMIDE 20 MG TABLET (FP) PO SCH (09:19)
[2017-06-29] MEDS: CALCIUM ACETATE 667 MG CAPSULE (FP) PO SCH ×3 (09:19→17:10)
[2017-06-29] MEDS: PANTOPRAZOLE 20 MG TABLET (FP) PO SCH (09:20)
[2017-06-29] MEDS: CHOLECALCIFEROL (VITAMIN D3) 1,000 UNIT TABLET (FP) PO SCH (09:20)
[2017-06-29] MEDS: FERROUS SO4 325 MG TABLET (FP) PO SCH (09:20)
[2017-06-29] MEDS: CARVEDILOL 12.5 MG TABLET (FP) PO SCH ×2 (09:20→22:17)
[2017-06-29] MEDS: ASPIRIN 81 MG CHEWABLE TABLETS PO SCH (09:20)
[2017-06-29] MEDS: LORazepam 1 MG TABLET PO SCH (09:20)
[2017-06-29] MEDS: PREGABALIN 75 MG CAPSULE PO SCH (09:21)
[2017-06-29] MEDS: COLLAGENASE CLOSTRIDIUM HIST. 30 GRAMS TUBE TP SCH (09:22)
[2017-06-29] MEDS: MEROPENEM 500 MG in DEXTROSE 5%-WATER - 100 ML IVPB SCH ×2 (09:22→22:17)
[2017-06-29] MEDS: POLYETHYLENE GLYCOL 3350 119 GM BTL PO SCH (09:22)
[2017-06-29] MEDS ORDERED: SODIUM CHLORIDE 250 ML IV PRN (10:27)
--- NOTE | 2017-06-29 10:55 | PN ---
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 Laboratory Tests 06/23/17 06/29/17 06/29/17 10:05 08:35 08:35 WBC 9.5 Hgb 8.8 L D Plt Count 286 Ur Leukocyte Esterase 1+ H Urine WBC (Auto) 23 Urine RBC (Auto) 4 Random Vancomycin 15.832 Advise Continue Meropenem Vanco ok for today Speak with podiatry regarding planned duration of therapy Adrian UNGER
--- NOTE | 2017-06-29 12:03 | PN ---
Progress Note (short form) - Note Progress Note: Podiatry F/U; S/p L foot transmetatarsal amputation. Denies F/V/N/C/SOB/CP. AFebrile, VSS. Doing well, staying positive. KEEGAN: L foot: dressing C/D/I, no active bleeding. Sutures well coapted, no dehiscence noted. No purulent drainage, no fluctuance, no periwound erythema, no ascending cellulitis, no signs of active infection. Mild tenderness to palpation. No ischemic changes to the incision site. The plantar flap is warm and pink. WBC: 9.5 Imp: 57 year old DM, PVD M s/p L foot transmetatarsal amputation 1. DSD L foot 2. Nonweightbearing L foot. PT eval. 3. Needs SNF placement. Case management. 4. Do not change the dressing tomorrow, will plan on next dressing shredding machine knife changer weekend. 5. The foot is stable. Upon discharge, can f/u with me this 07/04/17, at wound healing center. Amarilis Alcantara DPM
--- NOTE | 2017-06-29 14:17 | PN ---
Progress Note, Physician History of Present Illness: Pt seen and examined at bedside. He is awake and alert. Pain is controlled. He denies shortness of breath. - Current Medication List Current Medications: Active Medications Albuterol Sulfate (Ventolin 0.083% Nebulizer Soln -) 1 amp NEB RBID [facility] Last Admin: 06/29/17 07:35 Dose: 1 amp Aspirin (Asa -) 81 mg PO DAILY [facility] Last Admin: 06/29/17 09:20 Dose: 81 mg Atorvastatin Calcium (Lipitor -) 80 mg PO HS [facility] Last Admin: 06/28/17 22:21 Dose: 80 mg Calcium Acetate (Phoslo -) 1,334 mg PO TIDCM [facility] Last Admin: 06/29/17 11:32 Dose: 1,334 mg Carvedilol (Coreg -) 12.5 mg PO BID [facility] Last Admin: 06/29/17 09:20 Dose: 12.5 mg Cholecalciferol (Vitamin D3 -) 2,000 unit PO DAILY [facility] Last Admin: 06/29/17 09:20 Dose: 2,000 unit Collagenase (Santyl -) 1 applic TP DAILY [facility] Last Admin: 06/29/17 09:22 Dose: Not Given Docusate Sodium (Colace -) 100 mg PO Q8H PRN PRN Reason: CONSTIPATION Ferrous Sulfate (Feosol -) 325 mg PO DAILY [facility] Last Admin: 06/29/17 09:20 Dose: 325 mg Heparin Sodium (Porcine) (Heparin -) 5,000 unit SQ TID [facility] Last Admin: 06/29/17 13:43 Dose: 5,000 unit Hydromorphone HCl (Dilaudid -) 2 mg PO Q6H PRN PRN Reason: PAIN LEVEL 7 - 10 Last Admin: 06/28/17 05:48 Dose: 2 mg Meropenem 500 mg/ Dextrose 100 mls @ 200 mls/hr IVPB BID [facility] Last Admin: 06/29/17 09:22 Dose: 200 mls/hr Insulin Aspart (Novolog Vial Sliding Scale -) 1 vial SQ ACHS [facility] PRN Reason: Protocol Last Admin: 06/29/17 11:32 Dose: 6 units Lorazepam (Ativan -) 2 mg PO DAILY [facility] Last Admin: 06/29/17 09:20 Dose: 2 mg Ondansetron HCl (Zofran Injection) 4 mg IVPUSH Q6H PRN PRN Reason: NAUSEA AND/OR VOMITING Oxycodone HCl (Roxicodone -) 10 mg PO Q4H PRN PRN Reason: PAIN LEVEL 4 - 6 Last Admin: 06/29/17 03:20 Dose: 10 mg Pantoprazole Sodium (Protonix -) 20 mg PO DAILY [facility] Last Admin: 06/29/17 09:20 Dose: 20 mg Polyethylene Glycol (Miralax (For Daily Use) -) 17 gm PO DAILY [facility] Last Admin: 06/29/17 09:22 Dose: Not Given Pregabalin (Lyrica -) 75 mg PO DAILY [facility] Last Admin: 06/29/17 09:21 Dose: 75 mg Torsemide (Demadex -) 80 mg PO DAILY [facility] Last Admin: 06/29/17 09:19 Dose: 80 mg - Objective Vital Signs: Vital Signs Temperature 99 F 06/29/17 10:00 Pulse Rate 78 06/29/17 10:00 Respiratory Rate 18 06/29/17 10:00 Blood Pressure 127/57 06/29/17 10:00 O2 Sat by Pulse Oximetry (%) 97 06/28/17 22:00 Constitutional: Yes: Calm Eyes: Yes: Conjunctiva Clear HENT: Yes: Atraumatic Neck: Yes: Supple Cardiovascular: Yes: S1, S2 Respiratory: Yes: CTA Bilaterally Gastrointestinal: Yes: Soft, Abdomen, Obese Genitourinary: Yes: WNL Edema: Yes Edema: LLE: 1+, RLE: 1+ Integumentary: Yes: Venous Stasis Changes Wound/Incision: Yes: Dressing Dry and Intact Neurological: Yes: Oriented Psychiatric: Yes: Oriented Labs: CBC, BMP 06/29/17 08:35 06/29/17 08:35 INR, PTT INR 1.26 (0.82-1.09) H 06/23/17 06:25 Problem List - Problems (1) ESRD (end stage renal disease) Code(s): N18.6 - END STAGE RENAL DISEASE (2) Gangrene of toe of left foot Code(s): I96 - GANGRENE, NOT ELSEWHERE CLASSIFIED Assessment/Plan Current Medications Generic Name Dose Route Start Last Admin Trade Name Freq PRN Reason Stop Dose Admin Albuterol Sulfate 1 amp 06/27/17 20:00 06/29/17 07:35 Ventolin 0.083% Nebulizer Soln - NEB 1 amp RBID [facility] Administration Aspirin 81 mg 06/28/17 10:00 06/29/17 09:20 Asa - PO 81 mg DAILY [facility] Administration Atorvastatin Calcium 80 mg 06/27/17 22:00 06/28/17 22:21 Lipitor - PO 80 mg HS [facility] Administration Calcium Acetate 1,334 mg 06/27/17 17:30 06/29/17 11:32 Phoslo - PO 1,334 mg TIDCM [facility] Administration Carvedilol 12.5 mg 06/27/17 22:00 06/29/17 09:20 Coreg - PO 12.5 mg BID [facility] Administration Cholecalciferol 2,000 unit 06/28/17 10:00 06/29/17 09:20 Vitamin D3 - PO 2,000 unit DAILY [facility] Administration Collagenase 1 applic 06/28/17 10:00 06/29/17 09:22 Santyl - TP Not Given DAILY [facility] Docusate Sodium 100 mg 06/27/17 15:43 Colace - PO Q8H PRN CONSTIPATION Ferrous Sulfate 325 mg 06/28/17 10:00 06/29/17 09:20 Feosol - PO 325 mg DAILY [facility] Administration Heparin Sodium (Porcine) 5,000 unit 06/27/17 22:00 06/29/17 13:43 Heparin - SQ 5,000 unit TID [facility] Administration Hydromorphone HCl 2 mg 06/27/17 17:46 06/28/17 05:48 Dilaudid - PO 2 mg Q6H PRN Administration PAIN LEVEL 7 - 10 Meropenem 500 mg/ Dextrose 100 mls @ 200 mls/hr 06/27/17 22:00 06/29/17 09:22 IVPB 200 mls/hr BID [facility] Administration Insulin Aspart 1 vial 06/27/17 16:30 06/29/17 11:32 Novolog Vial Sliding Scale - SQ 6 units ACHS [facility] Administration Protocol Lorazepam 2 mg 06/28/17 10:00 06/29/17 09:20 Ativan - PO 2 mg DAILY [facility] Administration Ondansetron HCl 4 mg 06/27/17 16:00 Zofran Injection IVPUSH Q6H PRN NAUSEA AND/OR VOMITING Oxycodone HCl 10 mg 06/27/17 17:46 06/29/17 03:20 Roxicodone - PO 10 mg Q4H PRN Administration PAIN LEVEL 4 - 6 Pantoprazole Sodium 20 mg 06/28/17 10:00 06/29/17 09:20 Protonix - PO 20 mg DAILY [facility] Administration Polyethylene Glycol 17 gm 06/28/17 10:00 06/29/17 09:22 Miralax (For Daily Use) - PO Not Given DAILY [facility] Pregabalin 75 mg 06/28/17 10:00 06/29/17 09:21 Lyrica - PO 75 mg DAILY [facility] Administration Torsemide 80 mg 06/28/17 10:00 06/29/17 09:19 Demadex - PO 80 mg DAILY [facility] Administration Impression 1. ESRD 2. anemia 3. HTN 4. morbid obesity 5. CVA 6. hyperlipidemia 7. proteinuria - nephrotic 8. PVD 9. lower ext gangrene 10. syncope Plan - HD in am - epogen for anemia - cont wound care - podiatry follow up Dr Win
--- NOTE | 2017-06-29 14:25 | PN ---
Physical Exam: SUBJECTIVE: Patient seen and examined Post op day 2 s/p TMA. No acute events overnight. Patient states pain is controlled. OBJECTIVE: Vital Signs Period Temp Pulse Resp BP Sys/Leon Pulse Ox Last 24 Hr 98.6 F-99.2 F 69-78 18-20 118-127/57-70 97 GENERAL: Awake, alert, and fully oriented, in no acute distress. HEAD: Normal with no signs of trauma. EARS, NOSE, THROAT: Oropharynx clear without exudates. Moist mucous membranes. NECK: Normal range of motion LUNGS: Breath sounds equal, clear to auscultation bilaterally. No wheezes, and no crackles. No accessory muscle use. HEART: Regular rate and rhythm, normal S1 and S2 without murmur, ABDOMEN: Soft, nontender, not distended, normoactive bowel sounds, no guarding, no rebound, no masses. MUSCULOSKELETAL: Normal range of motion at all joints. No bony deformities or tenderness. No CVA tenderness. UPPER EXTREMITIES: 2+ pulses, warm, well-perfused. No cyanosis. No clubbing LOWER EXTREMITIES: Left: Wrapped NEUROLOGICAL: Cranial nerves II-XII intact. Normal speech. PSYCHIATRIC: Cooperative. Good eye contact. Appropriate mood and affect. SKIN: Warm, dry, Laboratory Results - last 24 hr 06/28/17 06/28/17 06/29/17 16:58 22:23 06:18 WBC RBC Hgb Hct MCV MCH MCHC RDW Plt Count MPV Neutrophils % Lymphocytes % Monocytes % Eosinophils % Basophils % Sodium Potassium Chloride Carbon Dioxide Anion Gap BUN Creatinine POC Glucometer 367 233 125 Random Glucose Calcium Phosphorus Magnesium Random Vancomycin 06/29/17 06/29/17 06/29/17 08:35 08:35 08:35 WBC 9.5 RBC 2.91 L Hgb 8.8 L D Hct 26.3 L D MCV 90.4 MCH 30.3 MCHC 33.6 RDW 15.7 Plt Count 286 MPV 9.2 Neutrophils % 70.2 Lymphocytes % 12.7 D Monocytes % 8.8 Eosinophils % 5.4 H Basophils % 2.9 H Sodium 135 L Potassium 3.8 Chloride 95 L Carbon Dioxide 33 H Anion Gap 7 L BUN 36 H D Creatinine 6.4 H D POC Glucometer Random Glucose 205 H Calcium 7.8 L Phosphorus 4.9 D Magnesium 1.9 Random Vancomycin 15.832 06/29/17 11:26 WBC RBC Hgb Hct MCV MCH MCHC RDW Plt Count MPV Neutrophils % Lymphocytes % Monocytes % Eosinophils % Basophils % Sodium Potassium Chloride Carbon Dioxide Anion Gap BUN Creatinine POC Glucometer 266 Random Glucose Calcium Phosphorus Magnesium Random Vancomycin Active Medications Generic Name Dose Route Start Last Admin Trade Name Freq PRN Reason Stop Dose Admin Albuterol Sulfate 1 amp 06/27/17 20:00 06/29/17 07:35 Ventolin 0.083% Nebulizer Soln - NEB 1 amp RBID [facility] Administration Aspirin 81 mg 06/28/17 10:00 06/29/17 09:20 Asa - PO 81 mg DAILY [facility] Administration Atorvastatin Calcium 80 mg 06/27/17 22:00 06/28/17 22:21 Lipitor - PO 80 mg HS [facility] Administration Calcium Acetate 1,334 mg 06/27/17 17:30 06/29/17 11:32 Phoslo - PO 1,334 mg TIDCM [facility] Administration Carvedilol 12.5 mg 06/27/17 22:00 06/29/17 09:20 Coreg - PO 12.5 mg BID [facility] Administration Cholecalciferol 2,000 unit 06/28/17 10:00 06/29/17 09:20 Vitamin D3 - PO 2,000 unit DAILY [facility] Administration Collagenase 1 applic 06/28/17 10:00 06/29/17 09:22 Santyl - TP Not Given DAILY [facility] Docusate Sodium 100 mg 06/27/17 15:43 Colace - PO Q8H PRN CONSTIPATION Epoetin Lawrence 7,000 unit 06/30/17 14:17 Epogen - IVPUSH 06/30/17 14:18 ONCE ONE Ferrous Sulfate 325 mg 06/28/17 10:00 06/29/17 09:20 Feosol - PO 325 mg DAILY [facility] Administration Heparin Sodium (Porcine) 5,000 unit 06/27/17 22:00 06/29/17 13:43 Heparin - SQ 5,000 unit TID [facility] Administration Hydromorphone HCl 2 mg 06/27/17 17:46 06/28/17 05:48 Dilaudid - PO 2 mg Q6H PRN Administration PAIN LEVEL 7 - 10 Meropenem 500 mg/ Dextrose 100 mls @ 200 mls/hr 06/27/17 22:00 06/29/17 09:22 IVPB 200 mls/hr BID [facility] Administration Sodium Chloride 250 mls @ 3,000 mls/hr 06/29/17 14:17 Normal Saline - IV 06/30/17 14:17 PRN PRN Hypotension during Dialysis Insulin Aspart 1 vial 06/27/17 16:30 06/29/17 11:32 Novolog Vial Sliding Scale - SQ 6 units ACHS [facility] Administration Protocol Lorazepam 2 mg 06/28/17 10:00 06/29/17 09:20 Ativan - PO 2 mg DAILY [facility] Administration Ondansetron HCl 4 mg 06/27/17 16:00 Zofran Injection IVPUSH Q6H PRN NAUSEA AND/OR VOMITING Oxycodone HCl 10 mg 06/27/17 17:46 06/29/17 03:20 Roxicodone - PO 10 mg Q4H PRN Administration PAIN LEVEL 4 - 6 Pantoprazole Sodium 20 mg 06/28/17 10:00 06/29/17 09:20 Protonix - PO 20 mg DAILY [facility] Administration Polyethylene Glycol 17 gm 06/28/17 10:00 06/29/17 09:22 Miralax (For Daily Use) - PO Not Given DAILY [facility] Pregabalin 75 mg 06/28/17 10:00 06/29/17 09:21 Lyrica - PO 75 mg DAILY [facility] Administration Torsemide 80 mg 06/28/17 10:00 06/29/17 09:19 Demadex - PO 80 mg DAILY [facility] Administration ASSESSMENT/PLAN: This is a 56 yo M w PMH of ESRD (on HD TTS), NIDDM, PVD, OM, CVAx2 (w/LLE residual weakness), DM, HTN, who was sent to ER from HD due to syncopal episode. Found to have gangrene of toes and leukocytosis. Syncope of unclear etiolkogy, postural hypotension vs arrhythmia vs tia vs non convulsive seizers now no confusion, awake and alert. No more episodes of syncope fall risk precautions. cardiac monitoring discontinued EEG normal MRI brain pending, unable to perform 2/2 to weight cardiology consult: Signed off case Echo and carotid doppler completed Diabetic foot ulcer: Post op s/p TMA on 06/27 Isolation precautions due to ESBL in previous wound cx Continue meropenem 500 mg bid and Vancomycin 1g daily dressing. arterial doppler completed Podiatry consult Vascular surgery consult id consult Pain control with po dilaudid and oxycodone Will need PT and rehab. ESRD on HD continue with phoslo vit d3 nephrology consult gets HD on T, , sat continue torsemide 80 daily DM hold home medications BGM monitoring sliding scale HTN continue cavedilol GERD: continue omeprazole Constipation; continue miralex and colace. HLD Atorvaststin 80mg fluid; orally allowed electrolyte: monitor nutrition: diabetic and renal diet dvt pro: heparin sq gi pro: omeprazole dispo: pending PT for rehab dc. Likely will be dc tomorrow Visit type - Emergency Visit Emergency Visit: Yes ED Registration Date: 06/22/17 Care time: The patient presented to the Emergency Department on the above date and was hospitalized for further evaluation of their emergent condition. - New Patient This patient is new to me today: No - Critical Care Critical Care patient: No
--- NOTE | 2017-06-29 17:56 | PN ---
Teaching Attending Note Name of Resident: Maninder Peters ATTENDING PHYSICIAN STATEMENT I saw and evaluated the patient. I reviewed the resident's note and discussed the case with the resident. I agree with the resident's findings and plan as documented. SUBJECTIVE: No complaints. OBJECTIVE: Vital Signs Period Temp Pulse Resp BP Sys/Leon Pulse Ox Last 24 Hr 98.6 F-99.2 F 69-78 18-20 118-127/57-70 96-97 HEART: S1S2, RRR LUNGS: Clear ABDOMEN: Obese, soft, nontender, nondistended, normal BS EXTREMITIES: 1+ edema with chronic changes of both legs. Left foot wrapped. Laboratory Results - last 24 hr 06/28/17 06/29/17 06/29/17 22:23 06:18 08:35 WBC RBC Hgb Hct MCV MCH MCHC RDW Plt Count MPV Neutrophils % Lymphocytes % Monocytes % Eosinophils % Basophils % Sodium Potassium Chloride Carbon Dioxide Anion Gap BUN Creatinine POC Glucometer 233 125 Random Glucose Calcium Phosphorus Magnesium Random Vancomycin 15.832 06/29/17 06/29/17 06/29/17 08:35 08:35 11:26 WBC 9.5 RBC 2.91 L Hgb 8.8 L D Hct 26.3 L D MCV 90.4 MCH 30.3 MCHC 33.6 RDW 15.7 Plt Count 286 MPV 9.2 Neutrophils % 70.2 Lymphocytes % 12.7 D Monocytes % 8.8 Eosinophils % 5.4 H Basophils % 2.9 H Sodium 135 L Potassium 3.8 Chloride 95 L Carbon Dioxide 33 H Anion Gap 7 L BUN 36 H D Creatinine 6.4 H D POC Glucometer 266 Random Glucose 205 H Calcium 7.8 L Phosphorus 4.9 D Magnesium 1.9 Random Vancomycin 06/29/17 16:51 WBC RBC Hgb Hct MCV MCH MCHC RDW Plt Count MPV Neutrophils % Lymphocytes % Monocytes % Eosinophils % Basophils % Sodium Potassium Chloride Carbon Dioxide Anion Gap BUN Creatinine POC Glucometer 218 Random Glucose Calcium Phosphorus Magnesium Random Vancomycin Current Medications Generic Name Dose Route Start Last Admin Trade Name Freq PRN Reason Stop Dose Admin Albuterol Sulfate 1 amp 06/27/17 20:00 06/29/17 07:35 Ventolin 0.083% Nebulizer Soln - NEB 1 amp RBID [facility] Administration Aspirin 81 mg 06/28/17 10:00 06/29/17 09:20 Asa - PO 81 mg DAILY [facility] Administration Atorvastatin Calcium 80 mg 06/27/17 22:00 06/28/17 22:21 Lipitor - PO 80 mg HS [facility] Administration Calcium Acetate 1,334 mg 06/27/17 17:30 06/29/17 17:10 Phoslo - PO 1,334 mg TIDCM [facility] Administration Carvedilol 12.5 mg 06/27/17 22:00 06/29/17 09:20 Coreg - PO 12.5 mg BID [facility] Administration Cholecalciferol 2,000 unit 06/28/17 10:00 06/29/17 09:20 Vitamin D3 - PO 2,000 unit DAILY [facility] Administration Collagenase 1 applic 06/28/17 10:00 06/29/17 09:22 Santyl - TP Not Given DAILY [facility] Docusate Sodium 100 mg 06/27/17 15:43 Colace - PO Q8H PRN CONSTIPATION Epoetin Lawrence 7,000 unit 06/30/17 14:17 Epogen - IVPUSH 06/30/17 14:18 ONCE ONE Ferrous Sulfate 325 mg 06/28/17 10:00 06/29/17 09:20 Feosol - PO 325 mg DAILY [facility] Administration Heparin Sodium (Porcine) 5,000 unit 06/27/17 22:00 06/29/17 13:43 Heparin - SQ 5,000 unit TID [facility] Administration Hydromorphone HCl 2 mg 06/27/17 17:46 06/28/17 05:48 Dilaudid - PO 2 mg Q6H PRN Administration PAIN LEVEL 7 - 10 Meropenem 500 mg/ Dextrose 100 mls @ 200 mls/hr 06/27/17 22:00 06/29/17 09:22 IVPB 200 mls/hr BID [facility] Administration Sodium Chloride 250 mls @ 3,000 mls/hr 06/29/17 14:17 Normal Saline - IV 06/30/17 14:17 PRN PRN Hypotension during Dialysis Insulin Aspart 1 vial 06/27/17 16:30 06/29/17 17:10 Novolog Vial Sliding Scale - SQ 4 units ACHS [facility] Administration Protocol Lorazepam 2 mg 06/28/17 10:00 06/29/17 09:20 Ativan - PO 2 mg DAILY [facility] Administration Ondansetron HCl 4 mg 06/27/17 16:00 Zofran Injection IVPUSH Q6H PRN NAUSEA AND/OR VOMITING Oxycodone HCl 10 mg 06/27/17 17:46 06/29/17 03:20 Roxicodone - PO 10 mg Q4H PRN Administration PAIN LEVEL 4 - 6 Pantoprazole Sodium 20 mg 06/28/17 10:00 06/29/17 09:20 Protonix - PO 20 mg DAILY [facility] Administration Polyethylene Glycol 17 gm 06/28/17 10:00 06/29/17 09:22 Miralax (For Daily Use) - PO Not Given DAILY [facility] Pregabalin 75 mg 06/28/17 10:00 06/29/17 09:21 Lyrica - PO 75 mg DAILY [facility] Administration Torsemide 80 mg 06/28/17 10:00 06/29/17 09:19 Demadex - PO 80 mg DAILY [facility] Administration ASSESSMENT AND PLAN: This is a 56 year old man with a history of ESRD, anemia, type 2 DM, diabetic peripheral neuropathy, HTN, hyperlipidemia, morbid obesity, gastric bypass, osteomyelitis, PAD, CVA who presented to the ED after passing out during HD. 1. Syncope - Etiology unclear 2. Diabetic foot infection with gangrene of left 3rd, 4th, 5th toes - s/p left TMA 06/27 - Continue Merrem 3. ESRD - Continue HD, PhosLo 4. HTN - Continue Coreg, Torsemide 5. Hyperlipidemia - Continue Lipitor 6. Type 2 DM with peripheral neuropathy - Glipizide held - Continue Novolog sliding scale, Lyrica 7. History of CVA - Continue aspirin 8. Anemia secondary to ESRD - Continue Epogen, ferrous sulfate 9. Morbid obesity with BMI 41.6, history of gastric bypass 10. Disposition - Physical therapy - Plan for discharge to subacute rehab at [facility]
[2017-06-29] MEDS: ATORVASTATIN CA 80 MG TABLET (FP) PO SCH (22:17)
[2017-06-30] MEDS: INSULIN SLIDING SCALE (NOVOLOG) 1 VIAL SQ SCH ×4 (06:45→21:54)
[2017-06-30] MEDS: HEPARIN NA (PORCINE) 5,000 UNITS/ML 1ML VIAL SQ SCH ×3 (06:45→21:54)
[2017-06-30] MEDS ORDERED: INSULIN (NOVOLOG) ASPART 100 UNITS/ML 10ML VIAL ONE (07:02)
[2017-06-30] MEDS: ALBUTEROL SO4 0.083% IH SOL 2.5 MG/3 ML VIAL.NEB. NEB SCH ×2 (07:25→20:19)
[2017-06-30 08:18] LABS: BASO % 2.6 % (0-2.0); EOS % 7.2 % (0-4.5); HEMATOCRIT 25.1 % (35.4-49); HEMOGLOBIN 8.4 GM/dL (11.7-16.9); LYMPH % 17.6 % (8-40); MCH 30.1 pg (25.7-33.7); MCHC 33.4 g/dl (32.0-35.9); MEAN CELL VOLUME 90.3 fl (80-96); MONO % 8.9 % (3.8-10.2); NEUT % 63.7 % (42.8-82.8); PLATELET COUNT 294 K/MM3 (134-434); RBC 2.77 M/mm3 (4.00-5.60); RDW 15.1 % (11.9-15.9); WHITE BLOOD COUNT 8.4 K/mm3 (4.0-10.0)
[2017-06-30] MEDS: CALCIUM ACETATE 667 MG CAPSULE (FP) PO SCH ×3 (08:19→17:08)
[2017-06-30 08:59] LABS: ANION GAP 9 (8-16); BLOOD UREA NITROGEN 52 mg/dL (7-18); CALCIUM 8.5 mg/dL (8.5-10.1); CHLORIDE 97 mmol/L (98-107); CO2 31 mmol/L (21-32); GLUCOSE,RANDOM 117 mg/dL (74-106); PHOSPHOROUS 5.7 mg/dL (2.5-4.9); POTASSIUM 4.1 mmol/L (3.5-5.1); SODIUM 137 mmol/L (136-145)
[2017-06-30] MEDS: CARVEDILOL 12.5 MG TABLET (FP) PO SCH ×2 (09:00→21:54)
[2017-06-30] MEDS: ASPIRIN 81 MG CHEWABLE TABLETS PO SCH ×2 (09:00→15:21)
[2017-06-30] MEDS: CHOLECALCIFEROL (VITAMIN D3) 1,000 UNIT TABLET (FP) PO SCH ×2 (09:00→15:23)
[2017-06-30] MEDS: COLLAGENASE CLOSTRIDIUM HIST. 30 GRAMS TUBE TP SCH (09:00)
[2017-06-30] MEDS: LORazepam 1 MG TABLET PO SCH ×2 (09:00→15:24)
[2017-06-30] MEDS: TORSEMIDE 20 MG TABLET (FP) PO SCH (09:00)
[2017-06-30] MEDS: FERROUS SO4 325 MG TABLET (FP) PO SCH ×2 (09:00→15:22)
[2017-06-30] MEDS: PANTOPRAZOLE 20 MG TABLET (FP) PO SCH ×2 (09:00→15:23)
[2017-06-30] MEDS: PREGABALIN 75 MG CAPSULE PO SCH ×2 (09:00→15:23)
[2017-06-30] MEDS: MULTIVITAMINS (DAILY MVI) TABLET (FP) PO SCH ×2 (09:00→15:23)
[2017-06-30 09:13] LABS: CREATININE 8.4 mg/dL (0.7-1.3)
[2017-06-30] MEDS: MEROPENEM 500 MG in DEXTROSE 5%-WATER - 100 ML IVPB SCH ×2 (10:00→21:54)
[2017-06-30] MEDS: POLYETHYLENE GLYCOL 3350 119 GM BTL PO SCH (10:00)
[2017-06-30] MEDS ORDERED: EPOETIN ALFA 10,000 UNIT/1 ML VIAL IVPUSH ONE (10:30)
[2017-06-30] MEDS: oxyCODONE HCL 5 MG TABLET PO PRN ×2 (11:34→22:52)
--- NOTE | 2017-06-30 14:21 | PN ---
Physical Exam: SUBJECTIVE: Patient seen and examined No acute events overnight. Patient feels well this morning. OBJECTIVE: Vital Signs Period Temp Pulse Resp BP Sys/Leon Pulse Ox Last 24 Hr 98 F-98.7 F 61-80 18-20 105-150/55-77 96-96 GENERAL: Awake, alert, and fully oriented, in no acute distress. HEAD: Normal with no signs of trauma. EARS, NOSE, THROAT: Oropharynx clear without exudates. Moist mucous membranes. NECK: Normal range of motion LUNGS: Breath sounds equal, clear to auscultation bilaterally. No wheezes, and no crackles. No accessory muscle use. HEART: Regular rate and rhythm, normal S1 and S2 without murmur, ABDOMEN: Soft, nontender, not distended, normoactive bowel sounds, no guarding, no rebound, no masses. MUSCULOSKELETAL: Normal range of motion at all joints. No bony deformities or tenderness. No CVA tenderness. UPPER EXTREMITIES: 2+ pulses, warm, well-perfused. No cyanosis. No clubbing LOWER EXTREMITIES: Left: Wrapped NEUROLOGICAL: Cranial nerves II-XII intact. Normal speech. PSYCHIATRIC: Cooperative. Good eye contact. Appropriate mood and affect. SKIN: Warm, dry, Laboratory Results - last 24 hr 06/29/17 06/29/17 06/30/17 16:51 22:15 05:56 WBC RBC Hgb Hct MCV MCH MCHC RDW Plt Count MPV Neutrophils % Lymphocytes % Monocytes % Eosinophils % Basophils % Sodium Potassium Chloride Carbon Dioxide Anion Gap BUN Creatinine POC Glucometer 218 219 183 Random Glucose Calcium Phosphorus Magnesium Random Vancomycin 06/30/17 06/30/17 06/30/17 07:00 07:25 07:25 WBC 8.4 RBC 2.77 L Hgb 8.4 L Hct 25.1 L MCV 90.3 MCH 30.1 MCHC 33.4 RDW 15.1 Plt Count 294 MPV 9.0 Neutrophils % 63.7 Lymphocytes % 17.6 D Monocytes % 8.9 Eosinophils % 7.2 H Basophils % 2.6 H Sodium 137 Potassium 4.1 Chloride 97 L Carbon Dioxide 31 Anion Gap 9 BUN 52 H D Creatinine 8.4 H* D POC Glucometer Random Glucose 117 H D Calcium 8.5 Phosphorus 5.7 H Magnesium 2.0 Random Vancomycin 14.685 Active Medications Generic Name Dose Route Start Last Admin Trade Name Freq PRN Reason Stop Dose Admin Albuterol Sulfate 1 amp 06/27/17 20:00 06/30/17 07:25 Ventolin 0.083% Nebulizer Soln - NEB 1 amp RBID [facility] Administration Aspirin 81 mg 06/28/17 10:00 06/29/17 09:20 Asa - PO 81 mg DAILY [facility] Administration Atorvastatin Calcium 80 mg 06/27/17 22:00 06/29/17 22:17 Lipitor - PO 80 mg HS [facility] Administration Calcium Acetate 1,334 mg 06/27/17 17:30 06/30/17 08:19 Phoslo - PO 1,334 mg TIDCM [facility] Administration Carvedilol 12.5 mg 06/27/17 22:00 06/29/17 22:17 Coreg - PO 12.5 mg BID [facility] Administration Cholecalciferol 2,000 unit 06/28/17 10:00 06/29/17 09:20 Vitamin D3 - PO 2,000 unit DAILY [facility] Administration Collagenase 1 applic 06/28/17 10:00 06/29/17 09:22 Santyl - TP Not Given DAILY [facility] Docusate Sodium 100 mg 06/27/17 15:43 Colace - PO Q8H PRN CONSTIPATION Ferrous Sulfate 325 mg 06/28/17 10:00 06/29/17 09:20 Feosol - PO 325 mg DAILY [facility] Administration Heparin Sodium (Porcine) 5,000 unit 06/27/17 22:00 06/30/17 06:45 Heparin - SQ 5,000 unit TID [facility] Administration Hydromorphone HCl 2 mg 06/27/17 17:46 06/28/17 05:48 Dilaudid - PO 2 mg Q6H PRN Administration PAIN LEVEL 7 - 10 Meropenem 500 mg/ Dextrose 100 mls @ 200 mls/hr 06/27/17 22:00 06/29/17 22:17 IVPB 200 mls/hr BID [facility] Administration Insulin Aspart 1 vial 06/27/17 16:30 06/30/17 06:45 Novolog Vial Sliding Scale - SQ 2 units ACHS [facility] Administration Protocol Lorazepam 2 mg 06/28/17 10:00 06/29/17 09:20 Ativan - PO 2 mg DAILY [facility] Administration Multivitamins/Minerals/Vitamin C 1 tab 06/30/17 10:00 Tab-A-Vit - PO DAILY [facility] Ondansetron HCl 4 mg 06/27/17 16:00 Zofran Injection IVPUSH Q6H PRN NAUSEA AND/OR VOMITING Oxycodone HCl 10 mg 06/27/17 17:46 06/30/17 11:34 Roxicodone - PO 10 mg Q4H PRN Administration PAIN LEVEL 4 - 6 Pantoprazole Sodium 20 mg 06/28/17 10:00 06/29/17 09:20 Protonix - PO 20 mg DAILY [facility] Administration Polyethylene Glycol 17 gm 06/28/17 10:00 06/29/17 09:22 Miralax (For Daily Use) - PO Not Given DAILY [facility] Pregabalin 75 mg 06/28/17 10:00 06/29/17 09:21 Lyrica - PO 75 mg DAILY [facility] Administration Torsemide 80 mg 06/28/17 10:00 06/29/17 09:19 Demadex - PO 80 mg DAILY [facility] Administration ASSESSMENT/PLAN: This is a 56 yo M w PMH of ESRD (on HD TTS), NIDDM, PVD, OM, CVAx2 (w/LLE residual weakness), DM, HTN, who was sent to ER from HD due to syncopal episode. Found to have gangrene of toes and leukocytosis. Syncope of unclear etiolkogy, postural hypotension vs arrhythmia vs tia vs non convulsive seizers now no confusion, awake and alert. No more episodes of syncope fall risk precautions. cardiac monitoring discontinued EEG normal MRI brain pending, unable to perform 2/2 to weight cardiology consult: Signed off case Echo and carotid doppler completed Diabetic foot ulcer: Post op s/p TMA on 06/27 Isolation precautions due to ESBL in previous wound cx Can stop antibiotics given surgery has removed source of infection, case discussed with ID/podiatry daily dressing. arterial doppler completed Podiatry consult Vascular surgery consult id consult Pain control with po dilaudid and oxycodone Will need PT and rehab. ESRD on HD continue with phoslo vit d3 nephrology consult gets HD on , , mon continue torsemide 80 daily DM hold home medications BGM monitoring sliding scale HTN continue cavedilol GERD: continue omeprazole Constipation; continue miralex and colace. HLD Atorvaststin 80mg fluid; orally allowed electrolyte: monitor nutrition: diabetic and renal diet dvt pro: heparin sq gi pro: omeprazole dispo: Patient pending placement to SNF. Will be dc once placement occurs Visit type - Emergency Visit Emergency Visit: Yes ED Registration Date: 06/22/17 Care time: The patient presented to the Emergency Department on the above date and was hospitalized for further evaluation of their emergent condition. - New Patient This patient is new to me today: No - Critical Care Critical Care patient: No
--- NOTE | 2017-06-30 14:26 | PN ---
Progress Note (short form) - Note Progress Note: ID Day 3 post op transmet amputation Selected Entries 06/30/17 06/30/17 08:25 10:40 Temperature 98.7 F Pulse Rate 67 Respiratory 18 Rate Blood Pressure 121/66 Laboratory Tests 06/30/17 07:25 WBC 8.4 Hgb 8.4 L Hct 25.1 L Plt Count 294 Assessment Discussed with podiatry As had definative surgery no indiction for PICC line or antibiotic now Plan Discharge planning in progress for today possibly [facility] recall if I can assist
[2017-06-30] MEDS ORDERED: PT OWN MED DRAWER 7, Y5N ONE ×3 (15:18→21:40)
--- NOTE | 2017-06-30 15:19 | PN ---
Progress Note, Physician History of Present Illness: Pt seen and examined at bedside. He tolerated HD. He denies shortness of breath. - Current Medication List Current Medications: Active Medications Albuterol Sulfate (Ventolin 0.083% Nebulizer Soln -) 1 amp NEB RBID [facility] Last Admin: 06/30/17 07:25 Dose: 1 amp Aspirin (Asa -) 81 mg PO DAILY [facility] Last Admin: 06/30/17 09:00 Dose: Not Given Atorvastatin Calcium (Lipitor -) 80 mg PO HS [facility] Last Admin: 06/29/17 22:17 Dose: 80 mg Calcium Acetate (Phoslo -) 1,334 mg PO TIDCM [facility] Last Admin: 06/30/17 09:00 Dose: Not Given Carvedilol (Coreg -) 12.5 mg PO BID [facility] Last Admin: 06/30/17 09:00 Dose: Not Given Cholecalciferol (Vitamin D3 -) 2,000 unit PO DAILY [facility] Last Admin: 06/30/17 09:00 Dose: Not Given Collagenase (Santyl -) 1 applic TP DAILY [facility] Last Admin: 06/30/17 09:00 Dose: Not Given Docusate Sodium (Colace -) 100 mg PO Q8H PRN PRN Reason: CONSTIPATION Ferrous Sulfate (Feosol -) 325 mg PO DAILY [facility] Last Admin: 06/30/17 09:00 Dose: Not Given Heparin Sodium (Porcine) (Heparin -) 5,000 unit SQ TID [facility] Last Admin: 06/30/17 14:33 Dose: Not Given Hydromorphone HCl (Dilaudid -) 2 mg PO Q6H PRN PRN Reason: PAIN LEVEL 7 - 10 Last Admin: 06/28/17 05:48 Dose: 2 mg Meropenem 500 mg/ Dextrose 100 mls @ 200 mls/hr IVPB BID [facility] Last Admin: 06/30/17 10:00 Dose: Not Given Insulin Aspart (Novolog Vial Sliding Scale -) 1 vial SQ ACHS [facility] PRN Reason: Protocol Last Admin: 06/30/17 09:00 Dose: Not Given Lorazepam (Ativan -) 2 mg PO DAILY [facility] Last Admin: 06/30/17 09:00 Dose: Not Given Multivitamins/Minerals/Vitamin C (Tab-A-Vit -) 1 tab PO DAILY [facility] Last Admin: 06/30/17 09:00 Dose: Not Given Ondansetron HCl (Zofran Injection) 4 mg IVPUSH Q6H PRN PRN Reason: NAUSEA AND/OR VOMITING Oxycodone HCl (Roxicodone -) 10 mg PO Q4H PRN PRN Reason: PAIN LEVEL 4 - 6 Last Admin: 06/30/17 11:34 Dose: 10 mg Pantoprazole Sodium (Protonix -) 20 mg PO DAILY [facility] Last Admin: 06/30/17 09:00 Dose: Not Given Polyethylene Glycol (Miralax (For Daily Use) -) 17 gm PO DAILY [facility] Last Admin: 06/30/17 10:00 Dose: Not Given Pregabalin (Lyrica -) 75 mg PO DAILY [facility] Last Admin: 06/30/17 09:00 Dose: Not Given Torsemide (Demadex -) 80 mg PO DAILY [facility] Last Admin: 06/30/17 09:00 Dose: Not Given - Objective Vital Signs: Vital Signs Temperature 98.7 F 06/30/17 08:25 Pulse Rate 68 06/30/17 14:30 Respiratory Rate 18 06/30/17 14:30 Blood Pressure 139/68 06/30/17 14:30 O2 Sat by Pulse Oximetry (%) 96 06/30/17 09:00 Constitutional: Yes: Calm Eyes: Yes: Conjunctiva Clear HENT: Yes: Atraumatic Cardiovascular: Yes: S1, S2 Respiratory: Yes: CTA Bilaterally Gastrointestinal: Yes: Soft, Abdomen, Obese Genitourinary: Yes: WNL Musculoskeletal: Yes: Other (partial foot amputation) Edema: Yes Edema: LLE: 1+, RLE: 1+ Integumentary: Yes: Venous Stasis Changes Neurological: Yes: Oriented Psychiatric: Yes: Oriented Labs: CBC, BMP 06/30/17 07:25 06/30/17 07:25 INR, PTT INR 1.26 (0.82-1.09) H 06/23/17 06:25 Problem List - Problems (1) ESRD (end stage renal disease) Code(s): N18.6 - END STAGE RENAL DISEASE (2) Gangrene of toe of left foot Code(s): I96 - GANGRENE, NOT ELSEWHERE CLASSIFIED Assessment/Plan Current Medications Generic Name Dose Route Start Last Admin Trade Name Freq PRN Reason Stop Dose Admin Albuterol Sulfate 1 amp 06/27/17 20:00 06/30/17 07:25 Ventolin 0.083% Nebulizer Soln - NEB 1 amp RBID [facility] Administration Aspirin 81 mg 06/28/17 10:00 06/30/17 09:00 Asa - PO Not Given DAILY [facility] Atorvastatin Calcium 80 mg 06/27/17 22:00 06/29/17 22:17 Lipitor - PO 80 mg HS [facility] Administration Calcium Acetate 1,334 mg 06/27/17 17:30 06/30/17 09:00 Phoslo - PO Not Given TIDCM [facility] Carvedilol 12.5 mg 06/27/17 22:00 06/30/17 09:00 Coreg - PO Not Given BID [facility] Cholecalciferol 2,000 unit 06/28/17 10:00 06/30/17 09:00 Vitamin D3 - PO Not Given DAILY [facility] Collagenase 1 applic 06/28/17 10:00 06/30/17 09:00 Santyl - TP Not Given DAILY [facility] Docusate Sodium 100 mg 06/27/17 15:43 Colace - PO Q8H PRN CONSTIPATION Ferrous Sulfate 325 mg 06/28/17 10:00 06/30/17 09:00 Feosol - PO Not Given DAILY [facility] Heparin Sodium (Porcine) 5,000 unit 06/27/17 22:00 06/30/17 14:33 Heparin - SQ Not Given TID [facility] Hydromorphone HCl 2 mg 06/27/17 17:46 06/28/17 05:48 Dilaudid - PO 2 mg Q6H PRN Administration PAIN LEVEL 7 - 10 Meropenem 500 mg/ Dextrose 100 mls @ 200 mls/hr 06/27/17 22:00 06/30/17 10:00 IVPB Not Given BID [facility] Insulin Aspart 1 vial 06/27/17 16:30 06/30/17 09:00 Novolog Vial Sliding Scale - SQ Not Given ACHS [facility] Protocol Lorazepam 2 mg 06/28/17 10:00 06/30/17 09:00 Ativan - PO Not Given DAILY [facility] Multivitamins/Minerals/Vitamin C 1 tab 06/30/17 10:00 06/30/17 09:00 Tab-A-Vit - PO Not Given DAILY [facility] Ondansetron HCl 4 mg 06/27/17 16:00 Zofran Injection IVPUSH Q6H PRN NAUSEA AND/OR VOMITING Oxycodone HCl 10 mg 06/27/17 17:46 06/30/17 11:34 Roxicodone - PO 10 mg Q4H PRN Administration PAIN LEVEL 4 - 6 Pantoprazole Sodium 20 mg 06/28/17 10:00 06/30/17 09:00 Protonix - PO Not Given DAILY [facility] Polyethylene Glycol 17 gm 06/28/17 10:00 06/30/17 10:00 Miralax (For Daily Use) - PO Not Given DAILY [facility] Pregabalin 75 mg 06/28/17 10:00 06/30/17 09:00 Lyrica - PO Not Given DAILY [facility] Torsemide 80 mg 06/28/17 10:00 06/30/17 09:00 Demadex - PO Not Given DAILY [facility] Impression 1. ESRD 2. anemia 3. HTN 4. morbid obesity 5. CVA 6. hyperlipidemia 7. proteinuria - nephrotic 8. PVD 9. lower ext gangrene 10. syncope Plan - pt tolerated HD - cont wound care - torsemide on non HD days - next HD on Monday - epogen for anemia - podiatry follow up Dr Win
--- NOTE | 2017-06-30 17:31 | PATH ---
Surgical Pathology Report Patient Name: GRACE BETH [facility]. Rec. #: [id number] /Age/Gender: 1960 (Age: 57) / M Account: [id number] Location: [address] [place] [address]/[facility] Taken: 06/27/2017 Received: 06/28/2017 Reported: 06/30/2017 Physicians: Balaji Alcantara DPM Specimen(s) Received LEFT FOOT METATARSAL Clinical History Gangrene Final Diagnosis FOOT, LEFT, TRANSMETATARSAL AMPUTATION: PORTION OF FOOT WITH ACUTE AND CHRONIC GANGRENOUS NECROSIS, AND FOCAL ACUTE OSTEOMYELITIS INVOLVING UNDERLYING BONE AND CORRESPONDING THIRD DIGIT BONE MARGIN. SEPARATE FRAGMENTS OF BONE WITH FOCAL ACUTE MILD TO OSTEOMYELITIS. REMAINDER OF SOFT TISSUE AND BONE MARGINS ARE VIABLE. Electronically Signed Elena Moore M.D. Gross Description Received in formalin labeled "metatarsals left foot," is a 10.5 x 8.5 x 3.6 cm left transmetatarsal amputation specimen. The specimen displays four digits. The second digit appears to have been previously amputated. The epidermal surface of the third, fourth and fifth digit displays a black-green, gangrenous lesion focally extending to 0.4 cm from the skin and soft tissue margin. The lesion involves the underlying bone. Also received within the same container is an 8.0 x 6.5 x 2.0 cm aggregate of multiple portions of bone. Electrical Engineering Designer sections are submitted in 7 cassettes as follows: 1-lesion with underlying bone, following decalcification; 2-skin and soft tissue margin; 3-bone margin from first digit, following decalcification; 4-bone margin from third digit, following decalcification; 5-bone margin from fourth digit, following decalcification; 6-bone margin from fifth digit, following decalcification; 7-bone from separately received portions of bone, following decalcification. 06/29/201706/29/2017
--- NOTE | 2017-06-30 18:53 | PN ---
Teaching Attending Note Name of Resident: Maninder Peters ATTENDING PHYSICIAN STATEMENT I saw and evaluated the patient. I reviewed the resident's note and discussed the case with the resident. I agree with the resident's findings and plan as documented. SUBJECTIVE: Patiet is feeling generally well. He has no foot pain at the surgical site when lying down, but he got up to try to walk and the foot is sore after ambulation efforts. Patient is on HD while we examined him, doing well with HD. OBJECTIVE: Last Vital Signs Temp Pulse Resp BP Pulse Ox 98.7 F 76 18 131/71 96 06/30/17 18:00 06/30/17 18:00 06/30/17 18:00 06/30/17 18:00 06/30/17 09:00 NAD, cooperative chest clear breath sounds heart RR no M abd obese, soft NT extrem chronic stasis changes lower legs, no tenderness or cords, woody edema TMT amputation surgical wound dressing in place Laboratory Results - last 24 hr 06/29/17 06/30/17 06/30/17 22:15 05:56 07:00 WBC RBC Hgb Hct MCV MCH MCHC RDW Plt Count MPV Neutrophils % Lymphocytes % Monocytes % Eosinophils % Basophils % Sodium Potassium Chloride Carbon Dioxide Anion Gap BUN Creatinine POC Glucometer 219 183 Random Glucose Calcium Phosphorus Magnesium Random Vancomycin 14.685 06/30/17 06/30/17 06/30/17 07:25 07:25 16:51 WBC 8.4 RBC 2.77 L Hgb 8.4 L Hct 25.1 L MCV 90.3 MCH 30.1 MCHC 33.4 RDW 15.1 Plt Count 294 MPV 9.0 Neutrophils % 63.7 Lymphocytes % 17.6 D Monocytes % 8.9 Eosinophils % 7.2 H Basophils % 2.6 H Sodium 137 Potassium 4.1 Chloride 97 L Carbon Dioxide 31 Anion Gap 9 BUN 52 H D Creatinine 8.4 H* D POC Glucometer 164 Random Glucose 117 H D Calcium 8.5 Phosphorus 5.7 H Magnesium 2.0 Random Vancomycin Current Medications Generic Name Dose Route Start Last Admin Trade Name Freq PRN Reason Stop Dose Admin Albuterol Sulfate 1 amp 06/27/17 20:00 06/30/17 07:25 Ventolin 0.083% Nebulizer Soln - NEB 1 amp RBID [facility] Administration Aspirin 81 mg 06/28/17 10:00 06/30/17 15:21 Asa - PO 81 mg DAILY [facility] BEDS AT [facility] Administration Atorvastatin Calcium 80 mg 06/27/17 22:00 06/29/17 22:17 Lipitor - PO 80 mg HS [facility] Administration Calcium Acetate 1,334 mg 06/27/17 17:30 06/30/17 17:08 Phoslo - PO 1,334 mg TIDCM [facility] Administration Carvedilol 12.5 mg 06/27/17 22:00 06/30/17 09:00 Coreg - PO Not Given BID [facility] 234 BEDS AT [facility] Cholecalciferol 2,000 unit 06/28/17 10:00 06/30/17 15:23 Vitamin D3 - PO 2,000 unit DAILY [facility] 234 BEDS AT [facility] Administration Collagenase 1 applic 06/28/17 10:00 06/30/17 09:00 Santyl - TP Not Given DAILY [facility] 234 BEDS AT [facility] Docusate Sodium 100 mg 06/27/17 15:43 Colace - PO Q8H PRN CONSTIPATION Ferrous Sulfate 325 mg 06/28/17 10:00 06/30/17 15:22 Feosol - PO 325 mg DAILY [facility] 234 BEDS AT [facility] Administration Heparin Sodium (Porcine) 5,000 unit 06/27/17 22:00 06/30/17 14:33 Heparin - SQ Not Given TID [facility] 234 BEDS AT [facility] Hydromorphone HCl 2 mg 06/27/17 17:46 06/28/17 05:48 Dilaudid - PO 2 mg Q6H PRN Administration PAIN LEVEL 7 - 10 Meropenem 500 mg/ Dextrose 100 mls @ 200 mls/hr 06/27/17 22:00 06/30/17 10:00 IVPB Not Given BID [facility] 234 BEDS AT [facility] Insulin Aspart 1 vial 06/27/17 16:30 06/30/17 17:01 Novolog Vial Sliding Scale - SQ 2 units ACHS [facility] Administration Protocol Lorazepam 2 mg 06/28/17 10:00 06/30/17 15:24 Ativan - PO 2 mg DAILY [facility] 234 BEDS AT [facility] Administration Multivitamins/Minerals/Vitamin C 1 tab 06/30/17 10:00 06/30/17 15:23 Tab-A-Vit - PO 1 tab DAILY [facility] 234 BEDS AT [facility] Administration Ondansetron HCl 4 mg 06/27/17 16:00 Zofran Injection IVPUSH Q6H PRN NAUSEA AND/OR VOMITING Oxycodone HCl 10 mg 06/27/17 17:46 06/30/17 11:34 Roxicodone - PO 10 mg Q4H PRN Administration PAIN LEVEL 4 - 6 Pantoprazole Sodium 20 mg 06/28/17 10:00 06/30/17 15:23 Protonix - PO 20 mg DAILY [facility] Administration Polyethylene Glycol 17 gm 06/28/17 10:00 06/30/17 10:00 Miralax (For Daily Use) - PO Not Given DAILY [facility] Pregabalin 75 mg 06/28/17 10:00 06/30/17 15:23 Lyrica - PO 75 mg DAILY [facility] Administration Torsemide 80 mg 06/28/17 10:00 06/30/17 09:00 Demadex - PO Not Given DAILY [facility] ASSESSMENT AND PLAN: This is a 56 year old man with a history of ESRD, anemia, type 2 DM, diabetic peripheral neuropathy, HTN, hyperlipidemia, morbid obesity, gastric bypass, osteomyelitis, PAD, CVA Admitted with syncope at HD Found to have diabetic foot infection and underwent L transmetatarsal amputation 1. Syncope - No acute cardiac issues noted, has been stable 2. Diabetic foot infection with gangrene of left 3rd, 4th, 5th toes - s/p left TMA 06/27 - Stop Ellym now that the site of infection has been amputated 3. ESRD - Continue HD, done today, [facility] 4. HTN - Continue Coreg, Torsemide 5. Hyperlipidemia - Continue Lipitor 6. Type 2 DM with peripheral neuropathy - Glipizide held - Continue Novolog sliding scale, Lyrica 7. History of CVA - Continue aspirin 8. Anemia secondary to ESRD - Continue Epogen, ferrous sulfate 9. Morbid obesity with BMI 41.6, history of gastric bypass 10. Disposition - Physical therapy - Plan for discharge to subacute rehab, [facility] rejected him but social work is attempting to find another suitable placement. - Stable for discharge.
[2017-06-30] MEDS: ATORVASTATIN CA 80 MG TABLET (FP) PO SCH (21:54)
[2017-07-01] MEDS: HEPARIN NA (PORCINE) 5,000 UNITS/ML 1ML VIAL SQ SCH ×3 (06:27→22:26)
[2017-07-01] MEDS: INSULIN SLIDING SCALE (NOVOLOG) 1 VIAL SQ SCH ×4 (06:27→22:35)
[2017-07-01 06:54] LABS: BASO % 2.4 % (0-2.0); EOS % 9.8 % (0-4.5); HEMATOCRIT 23.6 % (35.4-49); HEMOGLOBIN 7.9 GM/dL (11.7-16.9); LYMPH % 18.9 % (8-40); MCH 30.3 pg (25.7-33.7); MCHC 33.6 g/dl (32.0-35.9); MEAN PLT VOLUME 9.1 fl (7.5-11.1); NEUT % 58.9 % (42.8-82.8); PLATELET COUNT 288 K/MM3 (134-434); RBC 2.62 M/mm3 (4.00-5.60); RDW 14.9 % (11.9-15.9); WHITE BLOOD COUNT 6.8 K/mm3 (4.0-10.0)
[2017-07-01 07:19] LABS: ANION GAP 3 (8-16); BLOOD UREA NITROGEN 35 mg/dL (7-18); CHLORIDE 100 mmol/L (98-107); CO2 35 mmol/L (21-32); CREATININE 6.3 mg/dL (0.7-1.3); GLUCOSE,RANDOM 110 mg/dL (74-106); POTASSIUM 4.1 mmol/L (3.5-5.1); SODIUM 138 mmol/L (136-145)
[2017-07-01] MEDS: ALBUTEROL SO4 0.083% IH SOL 2.5 MG/3 ML VIAL.NEB. NEB SCH ×2 (08:30→20:04)
[2017-07-01] MEDS: LORazepam 1 MG TABLET PO SCH (09:35)
[2017-07-01] MEDS: TORSEMIDE 20 MG TABLET (FP) PO SCH (09:36)
[2017-07-01] MEDS: CALCIUM ACETATE 667 MG CAPSULE (FP) PO SCH ×3 (09:36→17:10)
[2017-07-01] MEDS: FERROUS SO4 325 MG TABLET (FP) PO SCH (09:36)
[2017-07-01] MEDS: ASPIRIN 81 MG CHEWABLE TABLETS PO SCH (09:36)
[2017-07-01] MEDS: PREGABALIN 75 MG CAPSULE PO SCH (09:36)
[2017-07-01] MEDS: CHOLECALCIFEROL (VITAMIN D3) 1,000 UNIT TABLET (FP) PO SCH (09:36)
[2017-07-01] MEDS: CARVEDILOL 12.5 MG TABLET (FP) PO SCH ×2 (09:36→22:26)
[2017-07-01] MEDS: PANTOPRAZOLE 20 MG TABLET (FP) PO SCH (09:36)
[2017-07-01] MEDS: MULTIVITAMINS (DAILY MVI) TABLET (FP) PO SCH (09:37)
[2017-07-01] MEDS: COLLAGENASE CLOSTRIDIUM HIST. 30 GRAMS TUBE TP SCH (09:37)
--- NOTE | 2017-07-01 10:05 | PN ---
Physical Exam: SUBJECTIVE: Patient seen and examined Patient is feeling better now, no fever or chills. No nausea or vomiting. OBJECTIVE: Vital Signs Temperature 98.8 F 07/01/17 09:30 Pulse Rate 88 07/01/17 09:30 Respiratory Rate 12 07/01/17 09:30 Blood Pressure 152/68 07/01/17 09:30 O2 Sat by Pulse Oximetry (%) 97 06/30/17 22:00 GENERAL: The patient is awake, alert, and fully oriented, in no acute distress. HEAD: Normal with no signs of trauma. EYES: PERRL, extraocular movements intact, sclera anicteric, conjunctiva clear. No ptosis. ENT: Ears normal, nares patent, oropharynx clear without exudates, moist mucous membranes. NECK: Trachea midline, full range of motion, supple. LUNGS: Breath sounds equal, clear to auscultation bilaterally, no wheezes, no crackles, no accessory muscle use. HEART: Regular rate and rhythm, S1, S2 without murmur, rub or gallop. ABDOMEN: Soft, nontender, nondistended, normoactive bowel sounds, no guarding, no rebound, no hepatosplenomegaly, no masses. EXTREMITIES: 2+ pulses, warm, left 3rd, 4th, 5th toes s/p left TMA 4, wrapped with a dressing NEUROLOGICAL: Cranial nerves II through XII grossly intact. Normal speech, gait not observed. PSYCH: Normal mood, normal affect. SKIN: Warm, dry, normal turgor, no rashes or lesions noted CBCD WBC 6.8 K/mm3 (4.0-10.0) 07/01/17 06:15 RBC 2.62 M/mm3 (4.00-5.60) L 07/01/17 06:15 Hgb 7.9 GM/dL (11.7-16.9) L 07/01/17 06:15 Hct 23.6 % (35.4-49) L 07/01/17 06:15 MCV 90.0 fl (80-96) 07/01/17 06:15 MCHC 33.6 g/dl (32.0-35.9) 07/01/17 06:15 RDW 14.9 % (11.9-15.9) 07/01/17 06:15 Plt Count 288 K/MM3 (134-434) 07/01/17 06:15 MPV 9.1 fl (7.5-11.1) 07/01/17 06:15 CMP Sodium 138 mmol/L (136-145) 07/01/17 06:15 Potassium 4.1 mmol/L (3.5-5.1) 07/01/17 06:15 Chloride 100 mmol/L (98-107) 07/01/17 06:15 Carbon Dioxide 35 mmol/L (21-32) H 07/01/17 06:15 Anion Gap 3 (8-16) L 07/01/17 06:15 BUN 35 mg/dL (7-18) H D 07/01/17 06:15 Creatinine 6.3 mg/dL (0.7-1.3) H D 07/01/17 06:15 Creat Clearance w eGFR 6.34 (>60) 06/28/17 09:25 Random Glucose 110 mg/dL (74-106) H 07/01/17 06:15 Calcium 8.0 mg/dL (8.5-10.1) L 07/01/17 06:15 Total Bilirubin 0.4 mg/dL (0.2-1.0) D 06/28/17 09:25 AST 22 U/L (15-37) 06/28/17 09:25 ALT 14 U/L (12-78) D 06/28/17 09:25 Alkaline Phosphatase 47 U/L (45-117) 06/28/17 09:25 Total Protein 5.8 g/dl (6.4-8.2) L 06/28/17 09:25 Albumin 2.2 g/dl (3.4-5.0) L 06/28/17 09:25 CARDIAC ENZYMES Creatine Kinase 35 IU/L (39-308) L 06/22/17 15:30 Troponin I 0.03 ng/ml (0.00-0.05) 06/22/17 15:30 Active Medications Generic Name Dose Route Start Last Admin Trade Name Freq PRN Reason Stop Dose Admin Albuterol Sulfate 1 amp 06/27/17 20:00 07/01/17 08:30 Ventolin 0.083% Nebulizer Soln - NEB 1 amp RBID [facility] Administration Aspirin 81 mg 06/28/17 10:00 07/01/17 09:36 Asa - PO 81 mg DAILY [facility] Administration Atorvastatin Calcium 80 mg 06/27/17 22:00 06/30/17 21:54 Lipitor - PO 80 mg HS [facility] Administration Calcium Acetate 1,334 mg 06/27/17 17:30 07/01/17 09:36 Phoslo - PO 1,334 mg TIDCM [facility] Administration Carvedilol 12.5 mg 06/27/17 22:00 07/01/17 09:36 Coreg - PO 12.5 mg BID [facility] Administration Cholecalciferol 2,000 unit 06/28/17 10:00 07/01/17 09:36 Vitamin D3 - PO 2,000 unit DAILY [facility] Administration Collagenase 1 applic 06/28/17 10:00 07/01/17 09:37 Santyl - TP Not Given DAILY [facility] Docusate Sodium 100 mg 06/27/17 15:43 Colace - PO Q8H PRN CONSTIPATION Ferrous Sulfate 325 mg 06/28/17 10:00 07/01/17 09:36 Feosol - PO 325 mg DAILY [facility] Administration Heparin Sodium (Porcine) 5,000 unit 06/27/17 22:00 07/01/17 06:27 Heparin - SQ 5,000 unit TID [facility] Administration Hydromorphone HCl 2 mg 06/27/17 17:46 06/28/17 05:48 Dilaudid - PO 2 mg Q6H PRN Administration PAIN LEVEL 7 - 10 Meropenem 500 mg/ Dextrose 100 mls @ 200 mls/hr 06/27/17 22:00 06/30/17 21:54 IVPB 200 mls/hr BID [facility] Administration Insulin Aspart 1 vial 06/27/17 16:30 07/01/17 06:27 Novolog Vial Sliding Scale - SQ Not Given ACHS [facility] Protocol Lorazepam 2 mg 06/28/17 10:00 07/01/17 09:35 Ativan - PO 2 mg DAILY [facility] Administration Multivitamins/Minerals/Vitamin C 1 tab 06/30/17 10:00 07/01/17 09:37 Tab-A-Vit - PO 1 tab DAILY [facility] Administration Ondansetron HCl 4 mg 06/27/17 16:00 Zofran Injection IVPUSH Q6H PRN NAUSEA AND/OR VOMITING Oxycodone HCl 10 mg 06/27/17 17:46 06/30/17 22:52 Roxicodone - PO 10 mg Q4H PRN Administration PAIN LEVEL 4 - 6 Pantoprazole Sodium 20 mg 06/28/17 10:00 07/01/17 09:36 Protonix - PO 20 mg DAILY [facility] Administration Polyethylene Glycol 17 gm 06/28/17 10:00 06/30/17 10:00 Miralax (For Daily Use) - PO Not Given DAILY [facility] Pregabalin 75 mg 06/28/17 10:00 07/01/17 09:36 Lyrica - PO 75 mg DAILY [facility] Administration Torsemide 80 mg 06/28/17 10:00 07/01/17 09:36 Demadex - PO 80 mg DAILY [facility] Administration Home Medications Medication Instructions Recorded Omeprazole [Prilosec (RX)] 20 mg PO DAILY 08/13/14 Atorvastatin Ca [Lipitor] 80 mg PO HS 05/24/16 Carvedilol 12.5 mg PO BID 05/24/16 Ferrous Sulfate [Feosol] 1 tab PO DAILY 08/02/16 Albuterol Sulfate [Proair 90 mcg IH BID 11/13/16 Respiclick] Cholecalciferol (Vitamin D3) 2,000 unit PO DAILY 11/13/16 [Vitamin D3] Aspirin [ASA -] 81 mg PO DAILY #30 tab.chew 11/15/16 Glipizide 5 mg PO BID 04/19/17 Pregabalin [Lyrica -] 75 mg PO DAILY [facility] 50 mg 04/19/17 Calcium Acetate [Phoslo -] 1,334 mg PO TIDCM capsule 04/27/17 Collagenase Clostridium Hist. 1 applic TP DAILY #1 tube 04/27/17 [Santyl -] Docusate Sodium [Colace -] 100 mg PO TID PRN #90 capsule 04/27/17 Polyethylene Glycol 3350 [Miralax 17 gm PO DAILY bottle 04/27/17 119 gm Btl -] Torsemide 80 mg PO DAILY #120 tablet 04/27/17 Lorazepam [Ativan] 2 mg PO DAILY #30 tablet MDD 1 06/01/17 HYDROmorphone [Dilaudid -] 2 mg PO Q6H PRN tablet [facility] na 06/30/17 Heparin - 5,000 unit SQ TID vial 06/30/17 oxyCODONE HCL [Roxicodone -] 10 mg PO Q4H PRN tablet [facility] na 06/30/17 ASSESSMENT/PLAN: This is a 56 year old man with a history of ESRD, anemia, type 2 DM, diabetic peripheral neuropathy, HTN, hyperlipidemia, morbid obesity, gastric bypass, osteomyelitis, PAD, CVA ,admitted with syncope at HD, and was found to have diabetic foot infection and underwent L transmetatarsal amputation # Diabetic foot infection with gangrene of left 3rd, 4th, 5th toes; s/p left TMA 06/27 on IV antibiotic merem . # Syncope with No acute cardiac issues noted, has been stable # ESRD Continue HD, done today, [facility], # Anemia of chronic disease secondary to ESRD Continue Epogen, ferrous sulfate # HTN Continue Coreg, Torsemide # Hyperlipidemia Continue Lipitor # Type 2 DM with peripheral neuropathy ; Glipizide held; Continue Novolog sliding scale, Lyrica # History of CVA Continue aspirin #. Morbid obesity with BMI 41.6, history of gastric bypass Plan for discharge to subacute rehab, [facility] rejected him but social work is attempting to find another suitable placement. Visit type - Emergency Visit Emergency Visit: Yes ED Registration Date: 06/22/17 Care time: The patient presented to the Emergency Department on the above date and was hospitalized for further evaluation of their emergent condition. - New Patient This patient is new to me today: No - Critical Care Critical Care patient: No - Discharge Referral Referred to [facility] Med P.C.: No
[2017-07-01] MEDS: POLYETHYLENE GLYCOL 3350 119 GM BTL PO SCH (11:30)
[2017-07-01] MEDS: MEROPENEM 500 MG in DEXTROSE 5%-WATER - 100 ML IVPB SCH ×2 (11:30→22:27)
[2017-07-01] MEDS ORDERED: INSULIN (NOVOLOG) ASPART 100 UNITS/ML 10ML VIAL ONE ×2 (11:34→17:07)
--- NOTE | 2017-07-01 11:36 | PN ---
Progress Note (short form) - Note Progress Note: RENAL Pt is awake and alert comfortable awaiting discharge Last Vital Signs Temp Pulse Resp BP Pulse Ox 98.8 F 88 12 152/68 97 07/01/17 09:30 07/01/17 09:30 07/01/17 09:30 07/01/17 09:30 06/30/17 22:00 lungs clear cvs s1s2 rr abd soft obese ext +edema, dry skin, s/p R TMA Neuro a+ox3 CBC, BMP 07/01/17 06:15 07/01/17 06:15 Current Medications Generic Name Dose Route Start Last Admin Trade Name Freq PRN Reason Stop Dose Admin Albuterol Sulfate 1 amp 06/27/17 20:00 07/01/17 08:30 Ventolin 0.083% Nebulizer Soln - NEB 1 amp RBID [facility] Administration Aspirin 81 mg 06/28/17 10:00 07/01/17 09:36 Asa - PO 81 mg DAILY [facility] Administration Atorvastatin Calcium 80 mg 06/27/17 22:00 06/30/17 21:54 Lipitor - PO 80 mg HS [facility] Administration Calcium Acetate 1,334 mg 06/27/17 17:30 07/01/17 09:36 Phoslo - PO 1,334 mg TIDCM [facility] Administration Carvedilol 12.5 mg 06/27/17 22:00 07/01/17 09:36 Coreg - PO 12.5 mg BID [facility] Administration Cholecalciferol 2,000 unit 06/28/17 10:00 07/01/17 09:36 Vitamin D3 - PO 2,000 unit DAILY [facility] Administration Collagenase 1 applic 06/28/17 10:00 07/01/17 09:37 Santyl - TP Not Given DAILY [facility] Docusate Sodium 100 mg 06/27/17 15:43 Colace - PO Q8H PRN CONSTIPATION Ferrous Sulfate 325 mg 06/28/17 10:00 07/01/17 09:36 Feosol - PO 325 mg DAILY [facility] Administration Heparin Sodium (Porcine) 5,000 unit 06/27/17 22:00 07/01/17 06:27 Heparin - SQ 5,000 unit TID [facility] Administration Hydromorphone HCl 2 mg 06/27/17 17:46 06/28/17 05:48 Dilaudid - PO 2 mg Q6H PRN Administration PAIN LEVEL 7 - 10 Meropenem 500 mg/ Dextrose 100 mls @ 200 mls/hr 06/27/17 22:00 07/01/17 11:30 IVPB 200 mls/hr BID [facility] Administration Insulin Aspart 1 vial 06/27/17 16:30 07/01/17 06:27 Novolog Vial Sliding Scale - SQ Not Given ACHS [facility] Protocol Lorazepam 2 mg 06/28/17 10:00 07/01/17 09:35 Ativan - PO 2 mg DAILY [facility] Administration Multivitamins/Minerals/Vitamin C 1 tab 06/30/17 10:00 07/01/17 09:37 Tab-A-Vit - PO 1 tab DAILY [facility] Administration Ondansetron HCl 4 mg 06/27/17 16:00 Zofran Injection IVPUSH Q6H PRN NAUSEA AND/OR VOMITING Oxycodone HCl 10 mg 06/27/17 17:46 06/30/17 22:52 Roxicodone - PO 10 mg Q4H PRN Administration PAIN LEVEL 4 - 6 Pantoprazole Sodium 20 mg 06/28/17 10:00 07/01/17 09:36 Protonix - PO 20 mg DAILY [facility] Administration Polyethylene Glycol 17 gm 06/28/17 10:00 07/01/17 11:30 Miralax (For Daily Use) - PO 17 grams DAILY [place] Administration Pregabalin 75 mg 06/28/17 10:00 07/01/17 09:36 Lyrica - PO 75 mg DAILY [facility] Administration Torsemide 80 mg 06/28/17 10:00 07/01/17 09:36 Demadex - PO 80 mg DAILY [place] Administration Impression 1. ESRD 2. anemia 3. HTN 4. morbid obesity 5. CVA 6. hyperlipidemia 7. proteinuria - nephrotic 8. PVD 9. lower ext gangrene 10. syncope Plan HD again in 2 days - cont wound care - torsemide on non HD days - epogen for anemia - PT continue antibiotics awaiting placement [facility]
--- NOTE | 2017-07-01 14:22 | PN ---
Progress Note (short form) - Note Progress Note: Podiatry: S/p L foot transmetatarsal amputation. Surgical site healing well with intact incision, no dehiscence, no purulence, no cellulitis, no signs of infection. No ischemic changes. The stump is warm and pink. No further intervention. Discharge to SNF. [facility]. Amarilis Alcantara DPM
[2017-07-01] MEDS ORDERED: PT OWN MED DRAWER 7, Y5N ONE (22:08)
[2017-07-01] MEDS: ATORVASTATIN CA 80 MG TABLET (FP) PO SCH (22:26)
[2017-07-01] MEDS: oxyCODONE HCL 5 MG TABLET PO PRN (23:36)
[2017-07-02] MEDS: HEPARIN NA (PORCINE) 5,000 UNITS/ML 1ML VIAL SQ SCH ×3 (06:47→22:01)
[2017-07-02] MEDS: INSULIN SLIDING SCALE (NOVOLOG) 1 VIAL SQ SCH ×4 (06:48→22:03)
[2017-07-02] MEDS: ALBUTEROL SO4 0.083% IH SOL 2.5 MG/3 ML VIAL.NEB. NEB SCH (08:00)
--- NOTE | 2017-07-02 08:44 | PN ---
<Maninder Peters - Last Filed: 07/02/17 11:45> Physical Exam: SUBJECTIVE: Patient seen and examined No acute events overnight. Patient feels well this morning. Has minimal pain in right foot OBJECTIVE: Vital Signs Period Temp Pulse Resp BP Sys/Leon Pulse Ox Last 24 Hr 97.6 F-98.9 F 65-97 12-20 113-152/55-75 97 GENERAL: Awake, alert, and fully oriented, in no acute distress. HEAD: Normal with no signs of trauma. EARS, NOSE, THROAT: Oropharynx clear without exudates. Moist mucous membranes. NECK: Normal range of motion LUNGS: Breath sounds equal, clear to auscultation bilaterally. No wheezes, and no crackles. No accessory muscle use. HEART: Regular rate and rhythm, normal S1 and S2 without murmur, ABDOMEN: Soft, nontender, not distended, normoactive bowel sounds, no guarding, no rebound, no masses. MUSCULOSKELETAL: Normal range of motion at all joints. No bony deformities or tenderness. No CVA tenderness. UPPER EXTREMITIES: 2+ pulses, warm, well-perfused. No cyanosis. No clubbing LOWER EXTREMITIES: Left: Wrapped NEUROLOGICAL: Cranial nerves II-XII intact. Normal speech. PSYCHIATRIC: Cooperative. Good eye contact. Appropriate mood and affect. SKIN: Warm, dry, Laboratory Results - last 24 hr 06/26/17 07/01/17 07/01/17 13:15 11:30 16:53 POC Glucometer 169 207 Blood Type A POSITIVE Antibody Screen Negative Crossmatch See Detail 07/01/17 07/02/17 22:26 06:33 POC Glucometer 210 109 Blood Type Antibody Screen Crossmatch Active Medications Generic Name Dose Route Start Last Admin Trade Name Freq PRN Reason Stop Dose Admin Albuterol Sulfate 1 amp 06/27/17 20:00 07/01/17 20:04 Ventolin 0.083% Nebulizer Soln - NEB 1 amp RBID [facility] Administration Aspirin 81 mg 06/28/17 10:00 07/01/17 09:36 Asa - PO 81 mg DAILY [facility] Administration Atorvastatin Calcium 80 mg 06/27/17 22:00 07/01/17 22:26 Lipitor - PO 80 mg HS [facility] Administration Calcium Acetate 1,334 mg 06/27/17 17:30 07/01/17 17:10 Phoslo - PO 1,334 mg TIDCM [facility] Administration Carvedilol 12.5 mg 06/27/17 22:00 07/01/17 22:26 Coreg - PO 12.5 mg BID [facility] Administration Cholecalciferol 2,000 unit 06/28/17 10:00 07/01/17 09:36 Vitamin D3 - PO 2,000 unit DAILY [facility] Administration Collagenase 1 applic 06/28/17 10:00 07/01/17 09:37 Santyl - TP Not Given DAILY [facility] Docusate Sodium 100 mg 06/27/17 15:43 Colace - PO Q8H PRN CONSTIPATION Ferrous Sulfate 325 mg 06/28/17 10:00 07/01/17 09:36 Feosol - PO 325 mg DAILY [facility] Administration Heparin Sodium (Porcine) 5,000 unit 06/27/17 22:00 07/02/17 06:47 Heparin - SQ 5,000 unit TID [facility] Administration Hydromorphone HCl 2 mg 06/27/17 17:46 06/28/17 05:48 Dilaudid - PO 2 mg Q6H PRN Administration PAIN LEVEL 7 - 10 Meropenem 500 mg/ Dextrose 100 mls @ 200 mls/hr 06/27/17 22:00 07/01/17 22:27 IVPB 200 mls/hr BID [facility] Administration Insulin Aspart 1 vial 06/27/17 16:30 07/02/17 06:48 Novolog Vial Sliding Scale - SQ Not Given ACHS [facility] Protocol Lorazepam 2 mg 06/28/17 10:00 07/01/17 09:35 Ativan - PO 2 mg DAILY [facility] Administration Multivitamins/Minerals/Vitamin C 1 tab 06/30/17 10:00 07/01/17 09:37 Tab-A-Vit - PO 1 tab DAILY [facility] Administration Ondansetron HCl 4 mg 06/27/17 16:00 Zofran Injection IVPUSH Q6H PRN NAUSEA AND/OR VOMITING Oxycodone HCl 10 mg 06/27/17 17:46 07/01/17 23:36 Roxicodone - PO 10 mg Q4H PRN Administration PAIN LEVEL 4 - 6 Pantoprazole Sodium 20 mg 06/28/17 10:00 07/01/17 09:36 Protonix - PO 20 mg DAILY [facility] Administration Polyethylene Glycol 17 gm 06/28/17 10:00 07/01/17 11:30 Miralax (For Daily Use) - PO 17 grams DAILY [facility] Administration Pregabalin 75 mg 06/28/17 10:00 07/01/17 09:36 Lyrica - PO 75 mg DAILY [facility] Administration Torsemide 80 mg 06/28/17 10:00 07/01/17 09:36 Demadex - PO 80 mg DAILY [facility] Administration ASSESSMENT/PLAN: This is a 56 yo M w PMH of ESRD (on HD TTS), NIDDM, PVD, OM, CVAx2 (w/LLE residual weakness), DM, HTN, who was sent to ER from HD due to syncopal episode. Found to have gangrene of toes and leukocytosis. Syncope of unclear etiolkogy, postural hypotension vs arrhythmia vs tia vs non convulsive seizers now no confusion, awake and alert. No more episodes of syncope fall risk precautions. cardiac monitoring discontinued EEG normal MRI brain pending, unable to perform 2/2 to weight cardiology consult: Signed off case Echo and carotid doppler completed Diabetic foot ulcer: Post op s/p TMA on 06/27 Isolation precautions due to ESBL in previous wound cx Can stop antibiotics given surgery has removed source of infection, case discussed with ID/podiatry daily dressing arterial doppler completed Podiatry consult Vascular surgery consult id consult Pain control with po dilaudid and oxycodone Will need PT and rehab. ESRD on HD continue with phoslo vit d3 nephrology consult gets HD on T, Th, sat continue torsemide 80 daily DM hold home medications BGM monitoring sliding scale HTN continue cavedilol GERD: continue omeprazole Constipation; continue miralex and colace. HLD Atorvaststin 80mg fluid; orally allowed electrolyte: monitor nutrition: diabetic and renal diet dvt pro: heparin sq gi pro: omeprazole dispo: Patient pending placement to SNF. Will be dc once placement occurs Visit type - Emergency Visit Emergency Visit: Yes ED Registration Date: 06/22/17 Care time: The patient presented to the Emergency Department on the above date and was hospitalized for further evaluation of their emergent condition. - New Patient This patient is new to me today: No - Critical Care Critical Care patient: No <Mohit Sharma - Last Filed: 07/02/17 17:59> Physical Exam: Waiting for placement. Patient does not want to go back to [facility]
[2017-07-02] MEDS ORDERED: PT OWN MED DRAWER 7, Y5N ONE (09:35)
[2017-07-02] MEDS: CHOLECALCIFEROL (VITAMIN D3) 1,000 UNIT TABLET (FP) PO SCH (09:37)
[2017-07-02] MEDS: MULTIVITAMINS (DAILY MVI) TABLET (FP) PO SCH (09:38)
[2017-07-02] MEDS: PANTOPRAZOLE 20 MG TABLET (FP) PO SCH (09:38)
[2017-07-02] MEDS: CARVEDILOL 12.5 MG TABLET (FP) PO SCH ×2 (09:38→22:01)
[2017-07-02] MEDS: ASPIRIN 81 MG CHEWABLE TABLETS PO SCH (09:38)
[2017-07-02] MEDS: CALCIUM ACETATE 667 MG CAPSULE (FP) PO SCH ×3 (09:38→17:03)
[2017-07-02] MEDS: PREGABALIN 75 MG CAPSULE PO SCH (09:38)
[2017-07-02] MEDS: TORSEMIDE 20 MG TABLET (FP) PO SCH (09:38)
[2017-07-02] MEDS: LORazepam 1 MG TABLET PO SCH (09:39)
[2017-07-02] MEDS: MEROPENEM 500 MG in DEXTROSE 5%-WATER - 100 ML IVPB SCH (09:39)
[2017-07-02] MEDS: FERROUS SO4 325 MG TABLET (FP) PO SCH (09:39)
[2017-07-02] MEDS: POLYETHYLENE GLYCOL 3350 119 GM BTL PO SCH (09:49)
[2017-07-02] MEDS: COLLAGENASE CLOSTRIDIUM HIST. 30 GRAMS TUBE TP SCH (09:49)
[2017-07-02] MEDS ORDERED: SODIUM CHLORIDE 250 ML IV PRN (10:44)
--- NOTE | 2017-07-02 10:49 | PN ---
Progress Note (short form) - Note Progress Note: RENAL Pt is awake and alert comfortable awaiting discharge Last Vital Signs Temp Pulse Resp BP Pulse Ox 97.8 F 65 20 128/72 97 07/02/17 05:46 07/02/17 05:46 07/02/17 05:46 07/02/17 05:46 07/01/17 21:00 lungs clear cvs s1s2 rr abd soft obese ext +edema, dry skin, s/p R TMA Neuro a+ox3 CBC, BMP 07/01/17 06:15 07/01/17 06:15 Current Medications Generic Name Dose Route Start Last Admin Trade Name Freq PRN Reason Stop Dose Admin Albuterol Sulfate 1 amp 06/27/17 20:00 07/01/17 20:04 Ventolin 0.083% Nebulizer Soln - NEB 1 amp RBID [facility] Administration Aspirin 81 mg 06/28/17 10:00 07/02/17 09:38 Asa - PO 81 mg DAILY [facility] Administration Atorvastatin Calcium 80 mg 06/27/17 22:00 07/01/17 22:26 Lipitor - PO 80 mg HS [facility] Administration Calcium Acetate 1,334 mg 06/27/17 17:30 07/02/17 09:38 Phoslo - PO 1,334 mg TIDCM [facility] Administration Carvedilol 12.5 mg 06/27/17 22:00 07/02/17 09:38 Coreg - PO 12.5 mg BID [facility] Administration Cholecalciferol 2,000 unit 06/28/17 10:00 07/02/17 09:37 Vitamin D3 - PO 2,000 unit DAILY [facility] Administration Collagenase 1 applic 06/28/17 10:00 07/02/17 09:49 Santyl - TP Not Given DAILY [facility] Docusate Sodium 100 mg 06/27/17 15:43 Colace - PO Q8H PRN CONSTIPATION Ferrous Sulfate 325 mg 06/28/17 10:00 07/02/17 09:39 Feosol - PO 325 mg DAILY [facility] Administration Heparin Sodium (Porcine) 5,000 unit 06/27/17 22:00 07/02/17 06:47 Heparin - SQ 5,000 unit TID [facility] Administration Hydromorphone HCl 2 mg 06/27/17 17:46 06/28/17 05:48 Dilaudid - PO 2 mg Q6H PRN Administration PAIN LEVEL 7 - 10 Meropenem 500 mg/ Dextrose 100 mls @ 200 mls/hr 06/27/17 22:00 07/02/17 09:39 IVPB 200 mls/hr BID [facility] Administration Sodium Chloride 250 mls @ 3,000 mls/hr 07/02/17 10:44 Normal Saline - IV 07/03/17 10:44 PRN PRN Hypotension during Dialysis Insulin Aspart 1 vial 06/27/17 16:30 07/02/17 06:48 Novolog Vial Sliding Scale - SQ Not Given ACHS [facility] Protocol Lorazepam 2 mg 06/28/17 10:00 07/02/17 09:39 Ativan - PO 1 mg DAILY [facility] Administration Multivitamins/Minerals/Vitamin C 1 tab 06/30/17 10:00 07/02/17 09:38 Tab-A-Vit - PO 1 tab DAILY [facility] Administration Ondansetron HCl 4 mg 06/27/17 16:00 Zofran Injection IVPUSH Q6H PRN NAUSEA AND/OR VOMITING Oxycodone HCl 10 mg 06/27/17 17:46 07/01/17 23:36 Roxicodone - PO 10 mg Q4H PRN Administration PAIN LEVEL 4 - 6 Pantoprazole Sodium 20 mg 06/28/17 10:00 07/02/17 09:38 Protonix - PO 20 mg DAILY [facility] Administration Polyethylene Glycol 17 gm 06/28/17 10:00 07/02/17 09:49 Miralax (For Daily Use) - PO 17 grams DAILY [facility] Administration Pregabalin 75 mg 06/28/17 10:00 07/02/17 09:38 Lyrica - PO 75 mg DAILY [facility] Administration Torsemide 80 mg 06/28/17 10:00 07/02/17 09:38 Demadex - PO 80 mg DAILY [facility] Administration Impression 1. ESRD 2. anemia 3. HTN 4. morbid obesity 5. CVA 6. hyperlipidemia 7. proteinuria - nephrotic 8. PVD 9. lower ext gangrene 10. syncope Plan will dialyze again tomorrow will give additional epogen monitor hgb MV
[2017-07-02] MEDS ORDERED: EPOETIN ALFA 10,000 UNIT/1 ML VIAL IVPUSH ONE (11:10)
[2017-07-02] MEDS ORDERED: INSULIN (NOVOLOG) ASPART 100 UNITS/ML 10ML VIAL ONE (11:33)
[2017-07-02] MEDS: ATORVASTATIN CA 80 MG TABLET (FP) PO SCH (22:01)
[2017-07-02] MEDS: oxyCODONE HCL 5 MG TABLET PO PRN (22:01)
[2017-07-03] MEDS: HEPARIN NA (PORCINE) 5,000 UNITS/ML 1ML VIAL SQ SCH ×2 (05:56→14:38)
[2017-07-03] MEDS: INSULIN SLIDING SCALE (NOVOLOG) 1 VIAL SQ SCH ×3 (06:08→17:23)
[2017-07-03 08:03] LABS: ANION GAP 5 (8-16); BLOOD UREA NITROGEN 20 mg/dL (7-18); CALCIUM 7.4 mg/dL (8.5-10.1); CHLORIDE 114 mmol/L (98-107); CO2 22 mmol/L (21-32); CREATININE 0.9 mg/dL (0.7-1.3); GLUCOSE,RANDOM 85 mg/dL (74-106); POTASSIUM 4.2 mmol/L (3.5-5.1); SODIUM 141 mmol/L (136-145)
[2017-07-03] MEDS: CALCIUM ACETATE 667 MG CAPSULE (FP) PO SCH ×3 (08:36→17:23)
[2017-07-03] MEDS: CARVEDILOL 12.5 MG TABLET (FP) PO SCH (10:00)
[2017-07-03] MEDS: COLLAGENASE CLOSTRIDIUM HIST. 30 GRAMS TUBE TP SCH (10:00)
[2017-07-03 10:16] VITALS: TEMP 98.3
[2017-07-03] MEDS ORDERED: EPOETIN ALFA 10,000 UNIT/1 ML VIAL IVPUSH ONE (11:10)
--- NOTE | 2017-07-03 11:31 | PN ---
Progress Note (short form) - Note Progress Note: Podiatry: S/p L foot transmetatarsal amputation. doing well, in good spirits. Denies F/V /N/C/SOB/CP. Ready for discharge to SNF. Dressing C/D/I, minimal strikethrough. Will leaving dressing on until tomorrow. Will need dressing changes 2x/week with bactroban to incision site, followed by dry sterile dressing and ZANE wrap. If he discharged tomorrow, I will see him in the am. Pod stable for discharge. Amarilis Alcantara DPM
--- NOTE | 2017-07-03 13:54 | PN ---
Physical Exam: SUBJECTIVE: Patient seen and examined No acute events overnight. Patient feels well this morning. OBJECTIVE: Vital Signs Period Temp Pulse Resp BP Sys/Leon Pulse Ox Last 24 Hr 98.3 F-98.8 F 64-81 18-20 92-142/41-69 96 GENERAL: Awake, alert, and fully oriented, in no acute distress. HEAD: Normal with no signs of trauma. EARS, NOSE, THROAT: Oropharynx clear without exudates. Moist mucous membranes. NECK: Normal range of motion LUNGS: Breath sounds equal, clear to auscultation bilaterally. No wheezes, and no crackles. No accessory muscle use. HEART: Regular rate and rhythm, normal S1 and S2 without murmur, ABDOMEN: Soft, nontender, not distended, normoactive bowel sounds, no guarding, no rebound, no masses. MUSCULOSKELETAL: Normal range of motion at all joints. No bony deformities or tenderness. No CVA tenderness. UPPER EXTREMITIES: 2+ pulses, warm, well-perfused. No cyanosis. No clubbing LOWER EXTREMITIES: Left: Wrapped NEUROLOGICAL: Cranial nerves II-XII intact. Normal speech. PSYCHIATRIC: Cooperative. Good eye contact. Appropriate mood and affect. SKIN: Warm, dry, Laboratory Results - last 24 hr 07/02/17 07/02/17 07/03/17 16:56 22:02 05:55 Sodium Potassium Chloride Carbon Dioxide Anion Gap BUN Creatinine POC Glucometer 158 212 102 Random Glucose Calcium 07/03/17 07:26 Sodium 141 Potassium 4.2 Chloride 114 H D Carbon Dioxide 22 D Anion Gap 5 L BUN 20 H D Creatinine 0.9 D POC Glucometer Random Glucose 85 D Calcium 7.4 L Active Medications Generic Name Dose Route Start Last Admin Trade Name Freq PRN Reason Stop Dose Admin Aspirin 81 mg 06/28/17 10:00 07/02/17 09:38 Asa - PO 81 mg DAILY [facility] Administration Atorvastatin Calcium 80 mg 06/27/17 22:00 07/02/17 22:01 Lipitor - PO 80 mg HS [facility] Administration Calcium Acetate 1,334 mg 06/27/17 17:30 07/03/17 08:36 Phoslo - PO 1,334 mg TIDCM [facility] Administration Carvedilol 12.5 mg 06/27/17 22:00 07/02/17 22:01 Coreg - PO 12.5 mg BID [facility] Administration Cholecalciferol 2,000 unit 06/28/17 10:00 07/02/17 09:37 Vitamin D3 - PO 2,000 unit DAILY [facility] Administration Collagenase 1 applic 06/28/17 10:00 07/02/17 09:49 Santyl - TP Not Given DAILY [facility] Docusate Sodium 100 mg 06/27/17 15:43 Colace - PO Q8H PRN CONSTIPATION Ferrous Sulfate 325 mg 06/28/17 10:00 07/02/17 09:39 Feosol - PO 325 mg DAILY [facility] Administration Heparin Sodium (Porcine) 5,000 unit 06/27/17 22:00 07/03/17 05:56 Heparin - SQ 5,000 unit TID [facility] Administration Insulin Aspart 1 vial 06/27/17 16:30 07/03/17 06:08 Novolog Vial Sliding Scale - SQ Not Given ACHS [facility] Protocol Lorazepam 2 mg 06/28/17 10:00 07/02/17 09:39 Ativan - PO 1 mg DAILY [facility] Administration Multivitamins/Minerals/Vitamin C 1 tab 06/30/17 10:00 07/02/17 09:38 Tab-A-Vit - PO 1 tab DAILY [facility] Administration Ondansetron HCl 4 mg 06/27/17 16:00 Zofran Injection IVPUSH Q6H PRN NAUSEA AND/OR VOMITING Pantoprazole Sodium 20 mg 06/28/17 10:00 07/02/17 09:38 Protonix - PO 20 mg DAILY [facility] Administration Polyethylene Glycol 17 gm 06/28/17 10:00 07/02/17 09:49 Miralax (For Daily Use) - PO 17 grams DAILY [facility] Administration Pregabalin 75 mg 06/28/17 10:00 07/02/17 09:38 Lyrica - PO 75 mg DAILY [facility] Administration Torsemide 80 mg 06/28/17 10:00 07/02/17 09:38 Demadex - PO 80 mg DAILY [facility] Administration ASSESSMENT/PLAN: This is a 56 yo M w PMH of ESRD (on HD TTS), NIDDM, PVD, OM, CVAx2 (w/LLE residual weakness), DM, HTN, who was sent to ER from HD due to syncopal episode. Found to have gangrene of toes and leukocytosis. Syncope of unclear etiolkogy, postural hypotension vs arrhythmia vs tia vs non convulsive seizers now no confusion, awake and alert. No more episodes of syncope fall risk precautions. cardiac monitoring discontinued EEG normal MRI brain pending, unable to perform 2/2 to weight cardiology consult: Signed off case Echo and carotid doppler completed Diabetic foot ulcer: Post op s/p TMA on 06/27 Isolation precautions due to ESBL in previous wound cx Can stop antibiotics given surgery has removed source of infection, case discussed with ID/podiatry daily dressing arterial doppler completed Podiatry consult Vascular surgery consult id consult Pain control with po dilaudid and oxycodone Will need PT and rehab. ESRD on HD continue with phoslo vit d3 nephrology consult gets HD on T, Th, sat continue torsemide 80 daily DM hold home medications BGM monitoring sliding scale HTN continue cavedilol GERD: continue omeprazole Constipation; continue miralex and colace. HLD Atorvaststin 80mg fluid; orally allowed electrolyte: monitor nutrition: diabetic and renal diet dvt pro: heparin sq gi pro: omeprazole dispo: Patient pending placement to SNF. Will be dc once placement occurs Visit type - Emergency Visit Emergency Visit: Yes ED Registration Date: 06/22/17 Care time: The patient presented to the Emergency Department on the above date and was hospitalized for further evaluation of their emergent condition. - New Patient This patient is new to me today: No - Critical Care Critical Care patient: No
--- NOTE | 2017-07-03 14:03 | PN ---
Progress Note, Physician History of Present Illness: Pt seen and examined at bedside. He is awake and alert. He is currently getting HD. - Current Medication List Current Medications: Active Medications Aspirin (Asa -) 81 mg PO DAILY [facility] Last Admin: 07/02/17 09:38 Dose: 81 mg Atorvastatin Calcium (Lipitor -) 80 mg PO HS [facility] Last Admin: 07/02/17 22:01 Dose: 80 mg Calcium Acetate (Phoslo -) 1,334 mg PO TIDCM [facility] Last Admin: 07/03/17 08:36 Dose: 1,334 mg Carvedilol (Coreg -) 12.5 mg PO BID [facility] Last Admin: 07/02/17 22:01 Dose: 12.5 mg Cholecalciferol (Vitamin D3 -) 2,000 unit PO DAILY [facility] Last Admin: 07/02/17 09:37 Dose: 2,000 unit Collagenase (Santyl -) 1 applic TP DAILY [facility] Last Admin: 07/02/17 09:49 Dose: Not Given Docusate Sodium (Colace -) 100 mg PO Q8H PRN PRN Reason: CONSTIPATION Ferrous Sulfate (Feosol -) 325 mg PO DAILY [facility] Last Admin: 07/02/17 09:39 Dose: 325 mg Heparin Sodium (Porcine) (Heparin -) 5,000 unit SQ TID [facility] Last Admin: 07/03/17 05:56 Dose: 5,000 unit Insulin Aspart (Novolog Vial Sliding Scale -) 1 vial SQ ACHS [facility] PRN Reason: Protocol Last Admin: 07/03/17 06:08 Dose: Not Given Lorazepam (Ativan -) 2 mg PO DAILY [facility] Last Admin: 07/02/17 09:39 Dose: 1 mg Multivitamins/Minerals/Vitamin C (Tab-A-Vit -) 1 tab PO DAILY [facility] Last Admin: 07/02/17 09:38 Dose: 1 tab Ondansetron HCl (Zofran Injection) 4 mg IVPUSH Q6H PRN PRN Reason: NAUSEA AND/OR VOMITING Pantoprazole Sodium (Protonix -) 20 mg PO DAILY [facility] Last Admin: 07/02/17 09:38 Dose: 20 mg Polyethylene Glycol (Miralax (For Daily Use) -) 17 gm PO DAILY [facility] Last Admin: 07/02/17 09:49 Dose: 17 grams Pregabalin (Lyrica -) 75 mg PO DAILY [facility] Last Admin: 07/02/17 09:38 Dose: 75 mg Torsemide (Demadex -) 80 mg PO DAILY [facility] Last Admin: 07/02/17 09:38 Dose: 80 mg - Objective Vital Signs: Vital Signs Temperature 98.3 F 07/03/17 09:35 Pulse Rate 64 07/03/17 12:10 Respiratory Rate 18 07/03/17 12:10 Blood Pressure 121/69 07/03/17 12:10 O2 Sat by Pulse Oximetry (%) 96 07/02/17 21:00 Constitutional: Yes: Calm Eyes: Yes: Conjunctiva Clear HENT: Yes: Atraumatic Cardiovascular: Yes: S1, S2 Respiratory: Yes: CTA Bilaterally Gastrointestinal: Yes: Soft, Abdomen, Obese Genitourinary: Yes: WNL Musculoskeletal: Yes: WNL Edema: Yes Edema: LLE: 1+, RLE: 1+ Wound/Incision: Yes: Dressing Dry and Intact Neurological: Yes: Oriented Psychiatric: Yes: Oriented Labs: CBC, BMP 07/01/17 06:15 07/03/17 07:26 INR, PTT INR 1.26 (0.82-1.09) H 06/23/17 06:25 Problem List - Problems (1) ESRD (end stage renal disease) Code(s): N18.6 - END STAGE RENAL DISEASE (2) Gangrene of toe of left foot Code(s): I96 - GANGRENE, NOT ELSEWHERE CLASSIFIED Assessment/Plan Current Medications Generic Name Dose Route Start Last Admin Trade Name Freq PRN Reason Stop Dose Admin Aspirin 81 mg 06/28/17 10:00 07/02/17 09:38 Asa - PO 81 mg DAILY [facility] Administration Atorvastatin Calcium 80 mg 06/27/17 22:00 07/02/17 22:01 Lipitor - PO 80 mg HS [facility] Administration Calcium Acetate 1,334 mg 06/27/17 17:30 07/03/17 08:36 Phoslo - PO 1,334 mg TIDCM [facility] Administration Carvedilol 12.5 mg 06/27/17 22:00 07/02/17 22:01 Coreg - PO 12.5 mg BID [facility] Administration Cholecalciferol 2,000 unit 06/28/17 10:00 07/02/17 09:37 Vitamin D3 - PO 2,000 unit DAILY [facility] Administration Collagenase 1 applic 06/28/17 10:00 07/02/17 09:49 Santyl - TP Not Given DAILY [facility] Docusate Sodium 100 mg 06/27/17 15:43 Colace - PO Q8H PRN CONSTIPATION Ferrous Sulfate 325 mg 06/28/17 10:00 07/02/17 09:39 Feosol - PO 325 mg DAILY [facility] Administration Heparin Sodium (Porcine) 5,000 unit 06/27/17 22:00 07/03/17 05:56 Heparin - SQ 5,000 unit TID [facility] Administration Insulin Aspart 1 vial 06/27/17 16:30 07/03/17 06:08 Novolog Vial Sliding Scale - SQ Not Given ACHS [facility] Protocol Lorazepam 2 mg 06/28/17 10:00 07/02/17 09:39 Ativan - PO 1 mg DAILY [facility] Administration Multivitamins/Minerals/Vitamin C 1 tab 06/30/17 10:00 07/02/17 09:38 Tab-A-Vit - PO 1 tab DAILY [facility] Administration Ondansetron HCl 4 mg 06/27/17 16:00 Zofran Injection IVPUSH Q6H PRN NAUSEA AND/OR VOMITING Pantoprazole Sodium 20 mg 06/28/17 10:00 07/02/17 09:38 Protonix - PO 20 mg DAILY [facility] Administration Polyethylene Glycol 17 gm 06/28/17 10:00 07/02/17 09:49 Miralax (For Daily Use) - PO 17 grams DAILY [facility] Administration Pregabalin 75 mg 06/28/17 10:00 07/02/17 09:38 Lyrica - PO 75 mg DAILY [facility] Administration Torsemide 80 mg 06/28/17 10:00 07/02/17 09:38 Demadex - PO 80 mg DAILY [facility] Administration Impression 1. ESRD 2. anemia 3. HTN 4. morbid obesity 5. CVA 6. hyperlipidemia 7. proteinuria - nephrotic 8. PVD 9. lower ext gangrene 10. syncope Plan - HD today - cont wound care - will need close follow up with podmadalynry - esperanza for anemia - podiatry follow up, discussed with them today Dr Win
[2017-07-03] MEDS ORDERED: PT OWN MED DRAWER 7, Y5N ONE (14:29)
[2017-07-03] MEDS: MULTIVITAMINS (DAILY MVI) TABLET (FP) PO SCH (14:35)
[2017-07-03] MEDS: PREGABALIN 75 MG CAPSULE PO SCH (14:35)
[2017-07-03] MEDS: CHOLECALCIFEROL (VITAMIN D3) 1,000 UNIT TABLET (FP) PO SCH (14:35)
[2017-07-03] MEDS: FERROUS SO4 325 MG TABLET (FP) PO SCH (14:35)
[2017-07-03] MEDS: ASPIRIN 81 MG CHEWABLE TABLETS PO SCH (14:35)
[2017-07-03] MEDS: LORazepam 1 MG TABLET PO SCH (14:36)
[2017-07-03] MEDS: TORSEMIDE 20 MG TABLET (FP) PO SCH (14:36)
[2017-07-03] MEDS: PANTOPRAZOLE 20 MG TABLET (FP) PO SCH (14:36)
[2017-07-03] MEDS: POLYETHYLENE GLYCOL 3350 119 GM BTL PO SCH (14:43)
[2017-07-03 15:21] VITALS: BP 128/76; PULSE 66
--- NOTE | 2017-07-03 16:06 | DS ---
Physical Exam: Microbiology 06/27/17 15:45 Foot - Lt Transmetatarsal Amp Site Gram Stain - Final 06/27/17 15:45 Foot - Lt Transmetatarsal Amp Site Wound Culture - Final NO AEROBIC OR ANAEROBIC GROWTH OBTAINED. 06/23/17 13:30 Foot - Left Gram Stain - Final 06/23/17 13:30 Foot - Left Wound Culture - Final Escherichia Coli Esbl Dry Cans Operator Acinetobacter Baumannii/Haemol Mr S Aureus 06/23/17 10:05 Urine - Urine Clean Catch Urine Culture - Final NO GROWTH OBTAINED 06/22/17 09:00 Blood - Peripheral Venous Blood Culture - Final NO GROWTH AFTER 5 DAYS INCUBATION 06/22/17 09:00 Blood - Peripheral Venous Blood Culture - Final NO GROWTH AFTER 5 DAYS INCUBATION Selected Entries 07/02/17 07/03/17 07/03/17 21:00 09:35 13:55 Temperature 98.3 F Pulse Rate 66 Respiratory 18 Rate Blood Pressure 128/76 O2 Sat by Pulse 96 Oximetry (%) Oxygen Delivery Room Air Method Laboratory Tests 06/22/17 06/23/17 06/25/17 09:00 10:05 06:00 WBC Hgb Hct Plt Count Sodium Potassium Chloride Carbon Dioxide Anion Gap BUN Creatinine Random Glucose B-Natriuretic Peptide 41401.03 H Urine Protein 2+ H Urine Glucose (UA) 2+ H Urine Ketones Negative Urine Blood 1+ H Urine Nitrite Negative Urine Bilirubin Negative Urine Urobilinogen Negative Ur Leukocyte Esterase 1+ H Urine WBC (Auto) 23 Urine RBC (Auto) 4 Random Vancomycin 16.316 06/26/17 06/27/17 06/28/17 06:20 08:45 07:40 WBC Hgb Hct Plt Count Sodium Potassium Chloride Carbon Dioxide Anion Gap BUN Creatinine Random Glucose B-Natriuretic Peptide Urine Protein Urine Glucose (UA) Urine Ketones Urine Blood Urine Nitrite Urine Bilirubin Urine Urobilinogen Ur Leukocyte Esterase Urine WBC (Auto) Urine RBC (Auto) Random Vancomycin 15.765 15.169 23.031 06/29/17 06/30/17 07/01/17 08:35 07:00 06:15 WBC 6.8 Hgb 7.9 L Hct 23.6 L Plt Count 288 Sodium Potassium Chloride Carbon Dioxide Anion Gap BUN Creatinine Random Glucose B-Natriuretic Peptide Urine Protein Urine Glucose (UA) Urine Ketones Urine Blood Urine Nitrite Urine Bilirubin Urine Urobilinogen Ur Leukocyte Esterase Urine WBC (Auto) Urine RBC (Auto) Random Vancomycin 15.832 14.685 07/01/17 06:15 WBC Hgb Hct Plt Count Sodium 138 Potassium 4.1 Chloride 100 Carbon Dioxide 35 H Anion Gap 3 L BUN 35 H D Creatinine 6.3 H D Random Glucose 110 H B-Natriuretic Peptide Urine Protein Urine Glucose (UA) Urine Ketones Urine Blood Urine Nitrite Urine Bilirubin Urine Urobilinogen Ur Leukocyte Esterase Urine WBC (Auto) Urine RBC (Auto) Random Vancomycin cxr- no acute pathology cus- normal head ct- no acute pathology duplex lower extremity artery- abnormal flow- posterior tibial artery echo-mild concentric lvh, lv ef normal HOSPITAL COURSE: Date of Admission:06/22/17 Date of Discharge: 07/03/17 56 yo M w PMH of ESRD (on HD TTS), NIDDM, PVD, OM, CVAx2 (w/LLE residual weakness), DM, HTN, who was sent to ER from HD due to syncopal episode and found to have left foot gangrene of 3rd-5th toe. Syncope of unclear etiology now no confusion, awake and alert. No more episodes of syncope after the first one EEG normal MRI brain unable to perform 2/2 to patient's weight Echo and Carotid doppler results above cardiology consulted Diabetic foot ulcer: patient with 3rd-5th toe gangrene. Underwent TMA on 06/27 with podiatry. Patient dc to rehab at [facility] for physical therapy and rehabilitation Patient treated with vancomycin and meropenem for 6 days for diabetic foot ulcer. No more abx necessary given source of infection controlled by podiatry. ID signed off case Podiatry consulted Vascular surgery consulted id consulted Minutes to complete discharge: 42 <Maninder Peters - Last Filed: 07/03/17 17:02> Physical Exam: Patient is being discharged to Rehab. to [facility]. Vital Signs Temperature 98.3 F 07/03/17 09:35 Pulse Rate 66 07/03/17 13:55 Respiratory Rate 18 07/03/17 13:55 Blood Pressure 128/76 07/03/17 13:55 O2 Sat by Pulse Oximetry (%) 96 07/03/17 09:00 CBCD WBC 6.8 K/mm3 (4.0-10.0) 07/01/17 06:15 RBC 2.62 M/mm3 (4.00-5.60) L 07/01/17 06:15 Hgb 7.9 GM/dL (11.7-16.9) L 07/01/17 06:15 Hct 23.6 % (35.4-49) L 07/01/17 06:15 MCV 90.0 fl (80-96) 07/01/17 06:15 MCHC 33.6 g/dl (32.0-35.9) 07/01/17 06:15 RDW 14.9 % (11.9-15.9) 07/01/17 06:15 Plt Count 288 K/MM3 (134-434) 07/01/17 06:15 MPV 9.1 fl (7.5-11.1) 07/01/17 06:15 CMP Sodium 141 mmol/L (136-145) 07/03/17 07:26 Potassium 4.2 mmol/L (3.5-5.1) 07/03/17 07:26 Chloride 114 mmol/L (98-107) H D 07/03/17 07:26 Carbon Dioxide 22 mmol/L (21-32) D 07/03/17 07:26 Anion Gap 5 (8-16) L 07/03/17 07:26 BUN 20 mg/dL (7-18) H D 07/03/17 07:26 Creatinine 0.9 mg/dL (0.7-1.3) D 07/03/17 07:26 Creat Clearance w eGFR 6.34 (>60) 06/28/17 09:25 Random Glucose 85 mg/dL (74-106) D 07/03/17 07:26 Calcium 7.4 mg/dL (8.5-10.1) L 07/03/17 07:26 Total Bilirubin 0.4 mg/dL (0.2-1.0) D 06/28/17 09:25 AST 22 U/L (15-37) 06/28/17 09:25 ALT 14 U/L (12-78) D 06/28/17 09:25 Alkaline Phosphatase 47 U/L (45-117) 06/28/17 09:25 Total Protein 5.8 g/dl (6.4-8.2) L 06/28/17 09:25 Albumin 2.2 g/dl (3.4-5.0) L 06/28/17 09:25 CARDIAC ENZYMES Creatine Kinase 35 IU/L (39-308) L 06/22/17 15:30 Troponin I 0.03 ng/ml (0.00-0.05) 06/22/17 15:30 Current Medications Generic Name Dose Route Start Last Admin Trade Name Freq PRN Reason Stop Dose Admin Aspirin 81 mg 06/28/17 10:00 07/03/17 14:35 Asa - PO 81 mg DAILY [facility] Administration Atorvastatin Calcium 80 mg 06/27/17 22:00 07/02/17 22:01 Lipitor - PO 80 mg HS [facility] Administration Calcium Acetate 1,334 mg 06/27/17 17:30 07/03/17 17:23 Phoslo - PO 1,334 mg TIDCM [facility] Administration Carvedilol 12.5 mg 06/27/17 22:00 07/03/17 10:00 Coreg - PO Not Given BID [facility] Cholecalciferol 2,000 unit 06/28/17 10:00 07/03/17 14:35 Vitamin D3 - PO 2,000 unit DAILY [facility] Administration Collagenase 1 applic 06/28/17 10:00 07/03/17 10:00 Santyl - TP Not Given DAILY [facility] Docusate Sodium 100 mg 06/27/17 15:43 Colace - PO Q8H PRN CONSTIPATION Ferrous Sulfate 325 mg 06/28/17 10:00 07/03/17 14:35 Feosol - PO 325 mg DAILY [facility] Administration Heparin Sodium (Porcine) 5,000 unit 06/27/17 22:00 07/03/17 14:38 Heparin - SQ 5,000 unit TID [facility] Administration Insulin Aspart 1 vial 06/27/17 16:30 07/03/17 17:23 Novolog Vial Sliding Scale - SQ 2 units ACHS [facility] Administration Protocol Lorazepam 2 mg 06/28/17 10:00 07/03/17 14:36 Ativan - PO 2 mg DAILY [facility] Administration Multivitamins/Minerals/Vitamin C 1 tab 06/30/17 10:00 07/03/17 14:35 Tab-A-Vit - PO 1 tab DAILY [facility] Administration Ondansetron HCl 4 mg 06/27/17 16:00 Zofran Injection IVPUSH Q6H PRN NAUSEA AND/OR VOMITING Pantoprazole Sodium 20 mg 06/28/17 10:00 07/03/17 14:36 Protonix - PO 20 mg DAILY [facility] Administration Polyethylene Glycol 17 gm 06/28/17 10:00 07/03/17 14:43 Miralax (For Daily Use) - PO 17 grams DAILY [facility] Administration Pregabalin 75 mg 06/28/17 10:00 07/03/17 14:35 Lyrica - PO 75 mg DAILY [facility] Administration Torsemide 80 mg 06/28/17 10:00 07/03/17 14:36 Demadex - PO 80 mg DAILY [facility] Administration Home Medications Medication Instructions Recorded Omeprazole [Prilosec (RX)] 20 mg PO DAILY 08/13/14 Atorvastatin Ca [Lipitor] 80 mg PO HS 05/24/16 Carvedilol 12.5 mg PO BID 05/24/16 Ferrous Sulfate [Feosol] 1 tab PO DAILY 08/02/16 Albuterol Sulfate [Proair 90 mcg IH BID 11/13/16 Respiclick] Cholecalciferol (Vitamin D3) 2,000 unit PO DAILY 11/13/16 [Vitamin D3] Aspirin [ASA -] 81 mg PO DAILY #30 tab.chew 11/15/16 Glipizide 5 mg PO BID 04/19/17 Pregabalin [Lyrica -] 75 mg PO DAILY MDD 50 mg 04/19/17 Calcium Acetate [Phoslo -] 1,334 mg PO TIDCM capsule 04/27/17 Collagenase Clostridium Hist. 1 applic TP DAILY #1 tube 04/27/17 [Santyl -] Docusate Sodium [Colace -] 100 mg PO TID PRN #90 capsule 04/27/17 Polyethylene Glycol 3350 [Miralax 17 gm PO DAILY bottle 04/27/17 119 gm Btl -] Torsemide 80 mg PO DAILY #120 tablet 04/27/17 Lorazepam [Ativan] 2 mg PO DAILY #30 tablet MDD 1 06/01/17 HYDROmorphone [Dilaudid -] 2 mg PO Q6H PRN tablet MDD na 06/30/17 Heparin - 5,000 unit SQ TID vial 06/30/17 oxyCODONE HCL [Roxicodone -] 10 mg PO Q4H PRN tablet MDD na 06/30/17 <Mohit Sharma - Last Filed: 07/03/17 19:12> Discharge Summary Reason For Visit: LEUKOCYTOSIS Current Active Problems Gangrene of toe of left foot (Acute) Ischemic toe (Acute) Osteomyelitis (Acute) DM type 2, uncontrolled, with renal complications (Chronic) ESRD (end stage renal disease) (Chronic) Lymph edema (Chronic) - Home Medications Comprehensive Discharge Medication List: Ambulatory Orders Omeprazole [Prilosec (RX)] 20 mg PO DAILY 08/13/14 Atorvastatin Ca [Lipitor] 80 mg PO HS 05/24/16 Carvedilol 12.5 mg PO BID 05/24/16 Ferrous Sulfate [Feosol] 1 tab PO DAILY 08/02/16 Albuterol Sulfate [Proair Respiclick] 90 mcg IH BID 11/13/16 Cholecalciferol (Vitamin D3) [Vitamin D3] 2,000 unit PO DAILY 11/13/16 Aspirin [ASA -] 81 mg PO DAILY #30 tab.chew 11/15/16 Glipizide 5 mg PO BID 04/19/17 Pregabalin [Lyrica -] 75 mg PO DAILY MDD 50 mg 04/19/17 Calcium Acetate [Phoslo -] 1,334 mg PO TIDCM capsule 04/27/17 Collagenase Clostridium Hist. [Santyl -] 1 applic TP DAILY #1 tube 04/27/17 Docusate Sodium [Colace -] 100 mg PO TID PRN #90 capsule 04/27/17 Polyethylene Glycol 3350 [Miralax 119 gm Btl -] 17 gm PO DAILY bottle 04/27/17 Torsemide 80 mg PO DAILY #120 tablet 04/27/17 Lorazepam [Ativan] 2 mg PO DAILY #30 tablet MDD 1 06/01/17 HYDROmorphone [Dilaudid -] 2 mg PO Q6H PRN tablet MDD na 06/30/17 Heparin - 5,000 unit SQ TID vial 06/30/17 oxyCODONE HCL [Roxicodone -] 10 mg PO Q4H PRN tablet MDD na 06/30/17 <Maninder Peters - Last Filed: 07/03/17 17:02> Current Active Problems Gangrene of toe of left foot (Acute) Ischemic toe (Acute) Osteomyelitis (Acute) DM type 2, uncontrolled, with renal complications (Chronic) ESRD (end stage renal disease) (Chronic) Lymph edema (Chronic) - Home Medications Comprehensive Discharge Medication List: Ambulatory Orders Omeprazole [Prilosec (RX)] 20 mg PO DAILY 08/13/14 Atorvastatin Ca [Lipitor] 80 mg PO HS 05/24/16 Carvedilol 12.5 mg PO BID 05/24/16 Ferrous Sulfate [Feosol] 1 tab PO DAILY 08/02/16 Albuterol Sulfate [Proair Respiclick] 90 mcg IH BID 11/13/16 Cholecalciferol (Vitamin D3) [Vitamin D3] 2,000 unit PO DAILY 11/13/16 Aspirin [ASA -] 81 mg PO DAILY #30 tab.chew 11/15/16 Glipizide 5 mg PO BID 04/19/17 Pregabalin [Lyrica -] 75 mg PO DAILY MDD 50 mg 04/19/17 Calcium Acetate [Phoslo -] 1,334 mg PO TIDCM capsule 04/27/17 Collagenase Clostridium Hist. [Santyl -] 1 applic TP DAILY #1 tube 04/27/17 Docusate Sodium [Colace -] 100 mg PO TID PRN #90 capsule 04/27/17 Polyethylene Glycol 3350 [Miralax 119 gm Btl -] 17 gm PO DAILY bottle 04/27/17 Torsemide 80 mg PO DAILY #120 tablet 04/27/17 Lorazepam [Ativan] 2 mg PO DAILY #30 tablet MDD 1 06/01/17 HYDROmorphone [Dilaudid -] 2 mg PO Q6H PRN tablet MDD na 06/30/17 Heparin - 5,000 unit SQ TID vial 06/30/17 oxyCODONE HCL [Roxicodone -] 10 mg PO Q4H PRN tablet MDD na 06/30/17 <Mohit Sharma - Last Filed: 07/03/17 19:12> Condition: Stable - Instructions Diet, Activity, Other Instructions: You were in the hospital for your left foot infection. You underwent an amputation on 06/27/2017. You are being transferred for rehab. Follow-up: - your pcp within 1 week. - Dr. Alcantara on 07/04/2017 to have your dressing changed [facility]. - Continue your dialysis as scheduled -Will need dressing changes 2x/week with bactroban to incision site, followed by dry sterile dressing and ZANE wrap. Continue your home medications as prescribed. If you have chest pain, shortness of breath, fevers, syncope, vomiting, discoloration or discharge at the incision site or any new/worsening symptoms please come back to the hospital immediately Referrals: Balaji Alcantara MD [Staff Physician] - 07/04/17 Hai Davis [Primary Care Provider] - Disposition: [facility] This patient is new to me today: No Emergency Visit: Yes ED Registration Date: 06/22/17 Care time: The patient presented to the Emergency Department on the above date and was hospitalized for further evaluation of their emergent condition. Critical Care patient: No - Discharge Referral Referred to [facility] Med P.C.: No <Maninder Peters - Last Filed: 07/03/17 17:02>
[2017-07-03] MEDS ORDERED: INSULIN (NOVOLOG) ASPART 100 UNITS/ML 10ML VIAL ONE (17:21)
[2017-07-03] MEDS ORDERED: oxyCODONE HCL 5 MG TABLET PO PRN (18:57)
== END 2017-07-03 19:26 | DRG 239 ==
LOC: JER 07:43 → JERBED 10:58 → J4W 13:09 → J6S 06-27 15:25
PROVIDERS: ADMIT Internal Medicine; ATTEND Internal Medicine
PROC: 0Y6N0ZC Detachment at Left Foot, Partial 3rd Ray, Open Approach (ICD-10-PCS; 2017-06-27)
PROC: 0Y6N0ZD Detachment at Left Foot, Partial 4th Ray, Open Approach (ICD-10-PCS; 2017-06-27)
PROC: 0Y6N0ZF Detachment at Left Foot, Partial 5th Ray, Open Approach (ICD-10-PCS; 2017-06-27)
PROC: 0Y6N0Z9 Detachment at Left Foot, Partial 1st Ray, Open Approach (ICD-10-PCS; principal; 2017-06-27 13:00)
PROC: 30233N1 Transfusion of Nonautologous Red Blood Cells into Peripheral Vein, Percutaneous Approach (ICD-10-PCS; 2017-06-28)
PROC: 5A1D90Z Performance of Urinary Filtration, Continuous, Greater than 18 hours Per Day (ICD-10-PCS; 2017-07-03)
DX: E11.52 Type 2 diabetes mellitus with diabetic peripheral angiopathy with gangrene (principal); N18.6 End stage renal disease; I96 Gangrene, not elsewhere classified; I12.0 Hypertensive chronic kidney disease with stage 5 chronic kidney disease or end stage renal disease; I69.354 Hemiplegia and hemiparesis following cerebral infarction affecting left non-dominant side; M86.172 Other acute osteomyelitis, left ankle and foot; E11.22 Type 2 diabetes mellitus with diabetic chronic kidney disease; Z99.2 Dependence on renal dialysis; R55 Syncope and collapse; E11.69 Type 2 diabetes mellitus with other specified complication; E11.621 Type 2 diabetes mellitus with foot ulcer; E66.01 Morbid (severe) obesity due to excess calories; Z68.39 Body mass index [BMI] 39.0-39.9, adult; E78.5 Hyperlipidemia, unspecified; D72.829 Elevated white blood cell count, unspecified; I95.1 Orthostatic hypotension; K21.9 Gastro-esophageal reflux disease without esophagitis; K59.00 Constipation, unspecified; E11.42 Type 2 diabetes mellitus with diabetic polyneuropathy; D63.1 Anemia in chronic kidney disease; E11.65 Type 2 diabetes mellitus with hyperglycemia
CPT/HCPCS: 36415; 36430; 70450-TC; 70551-TC; 71045-TC-FY; 73630-TC-LT; 80048; 80053; 80061; 81003; 81015; 82550; 82962; 83721; 83735; 83880; 84100; 84484; 85025; 85027; 85610; 86850; 86900; 86901; 86922; 87040; 87070; 87086; 87186; 87205; 88305-TC; 88311-TC; 93306-TC; 93880-TC; 93926-TC; 94640; 94760; 95816; 97116-GP; 97162-GP; 99284-25; G0277; G0463-25; G0480; J0885; J1644; P9038; P9058

== ENCOUNTER 2017-07-06 15:40 | Inpatient (IN) | payer OTHER ==
[2017-07-06 16:00] LABS: BASO % 2.2 % (0-2.0); EOS % 11.7 % (0-4.5); HEMATOCRIT 26.3 % (35.4-49); HEMOGLOBIN 8.7 GM/dL (11.7-16.9); LYMPH % 13.6 % (8-40); MCH 29.7 pg (25.7-33.7); MEAN PLT VOLUME 8.6 fl (7.5-11.1); MONO % 8.5 % (3.8-10.2); PLATELET COUNT 292 K/MM3 (134-434); RBC 2.92 M/mm3 (4.00-5.60); RDW 15.5 % (11.9-15.9); WHITE BLOOD COUNT 5.9 K/mm3 (4.0-10.0)
[2017-07-06 16:13] LABS: INR 1.18 (0.82-1.09); PROTHROMBIN TIME (PATIENT) 13.3 SEC (9.7-13.0)
[2017-07-06 16:16] LABS: ACTIVATED PTT 28.6 SECONDS (26.9-34.4)
--- NOTE | 2017-07-06 16:58 | PDOC ---
History of Present Illness - General Chief Complaint: Syncope/Near Syncope Stated Complaint: SYNCOPE Time Seen by Provider: 07/06/17 15:47 - History of Present Illness Initial Comments: 07/06/17 18:10 57 year old DM, PVD M s/p L foot transmetatarsal amputation with dorsal dehiscence ulcer (on 06/27/17) presents to the ED after episode of fall during his hyperbaric treatment appointment. The patient fell in the bathroom while attempting to remove his close. Denies hitting his head, questionable LOC as this was an unwitnessed fall. The patient was unable to get back on his feet on his own. Rapid response was started and the patient was taken to our ED. Patient seemed confused and slow to respond but progressively regained his memory. Denies any headache, dizziness, lightheadedness, nausea, vomiting, changes in vision, neck or back pain, numbness, or tingling. He denies any fever or chills. He denies any recent travel or sick contacts. 07/06/17 18:23 Past History - Past Medical History Allergies/Adverse Reactions: Allergies Allergy/AdvReac Type Severity Reaction Status Date / Time fish derived Allergy Severe Hives Verified 06/10/17 11:55 Shellfish Allergy Severe Verified 06/10/17 11:55 sulfamethoxazole Allergy Severe Swelling Verified 06/10/17 11:55 [From Bactrim DS] trimethoprim Allergy Severe Swelling Verified 06/10/17 11:55 [From Bactrim DS] Home Medications: Ambulatory Orders Omeprazole [Prilosec (RX)] 20 mg PO DAILY 08/13/14 Atorvastatin Ca [Lipitor] 80 mg PO HS 05/24/16 Carvedilol 12.5 mg PO BID 05/24/16 Ferrous Sulfate [Feosol] 1 tab PO DAILY 08/02/16 Albuterol Sulfate [Proair Respiclick] 90 mcg IH BID 11/13/16 Cholecalciferol (Vitamin D3) [Vitamin D3] 2,000 unit PO DAILY 11/13/16 Aspirin [ASA -] 81 mg PO DAILY #30 tab.chew 11/15/16 Glipizide 5 mg PO BID 04/19/17 Pregabalin [Lyrica -] 75 mg PO DAILY MDD 50 mg 04/19/17 Calcium Acetate [Phoslo -] 1,334 mg PO TIDCM capsule 04/27/17 Collagenase Clostridium Hist. [Santyl -] 1 applic TP DAILY #1 tube 04/27/17 Docusate Sodium [Colace -] 100 mg PO TID PRN #90 capsule 04/27/17 Polyethylene Glycol 3350 [Miralax 119 gm Btl -] 17 gm PO DAILY bottle 04/27/17 Torsemide 80 mg PO DAILY #120 tablet 04/27/17 Lorazepam [Ativan] 2 mg PO DAILY #30 tablet MDD 1 06/01/17 Heparin - 5,000 unit SQ TID vial 06/30/17 oxyCODONE HCL [Roxicodone -] 10 mg PO Q4H PRN #18 tablet MDD 4 07/03/17 Anemia: Yes Asthma: Yes Cancer: No Cardiac Disorders: (ANGINA) CVA: Yes COPD: Yes CHF: No Dementia: No Diabetes: Yes Dialysis: Yes (tu,thr,sat lt arm fistula) GI Disorders: No Disorders: No HTN: Yes Hypercholesterolemia: Yes Liver Disease: No Seizures: No Thyroid Disease: No - Surgical History Abdominal Surgery: Yes (gastric bypass 05/05/14) Appendectomy: No Cardiac Surgery: No Cholecystectomy: No Lung Surgery: No Neurologic Surgery: No Orthopedic Surgery: No - Immunization History Immunization Up to Date: Yes - Suicide/Smoking/Psychosocial Hx Smoking Status: No Smoking History: Never smoked Have you smoked in the past 12 months: No Number of Cigarettes Smoked Daily: 0 Hx Alcohol Use: No Drug/Substance Use Hx: No Substance Use Type: None Hx Substance Use Treatment: No Cardiac Specific PMH - Complaint Specific PMHX Pacemaker: No Review of Systems - Review of Systems Able to Perform ROS?: No (confused, altered. ) *Physical Exam - Vital Signs Last Vital Signs Temp Pulse Resp BP Pulse Ox 98.1 F 75 21 124/56 100 07/06/17 15:40 07/06/17 15:40 07/06/17 15:40 07/06/17 15:40 07/06/17 15:40 - Physical Exam General Appearance: Yes: Obese. No: Alcohol on Breath, Intoxicated HEENT: positive: EOMI, CARRIE Neck: negative: Tender Respiratory/Chest: positive: Decreased Breath Sounds. negative: Chest Tender Cardiovascular: positive: Regular Rhythm, Regular Rate, S1, S2 Gastrointestinal/Abdominal: positive: Normal Bowel Sounds. negative: Flat Extremity: positive: Normal Capillary Refill, Normal Inspection Integumentary: positive: Normal Color, Warm Neurologic: positive: Fully Oriented, Responsive, Confused, Disoriented, Depressed Affect, Other (preexisting deficits to left extremities, some difficulty raising his right extremities today but getting better with reassessment. ) ED Treatment Course - LABORATORY CBC & Chemistry Diagram: 07/06/17 15:55 07/06/17 15:55 - ADDITIONAL ORDERS Additional order review: Laboratory Results 07/06/17 07/06/17 15:55 15:55 PT with INR 13.30 H INR 1.18 H PTT (Actin FS) 28.6 Sodium 137 Potassium 3.9 Chloride 100 D Carbon Dioxide 27 D Anion Gap 10 BUN 23 H Creatinine 5.3 H D Creat Clearance w eGFR 11.24 Random Glucose 117 H D Calcium 8.1 L Total Bilirubin 0.4 AST 41 H D ALT 20 D Alkaline Phosphatase 57 D Troponin I 0.02 D Total Protein 7.0 D Albumin 2.6 L 07/06/17 15:55 RBC 2.92 L MCV 90.0 MCHC 33.0 RDW 15.5 MPV 8.6 Neutrophils % 64.0 Lymphocytes % 13.6 D Monocytes % 8.5 Eosinophils % 11.7 H Basophils % 2.2 H - RADIOLOGY Radiology Studies Ordered: Category Date Time Status HEAD CT (STROKE) [CT] Stat CT Scan 07/06/17 15:47 Completed CHEST X-RAY PORTABLE* [RAD] Stat Radiology 07/06/17 15:51 Completed Medical Decision Making - Medical Decision Making 07/06/17 17:00 The patient is a 57 year old male, from [facility], with a significant past medical history of ESRD (on HD TTS), DM, PVD, OM, CVAx2 (w/LLE residual weakness), who presents to the emergency department s/p ?syncopal episode earlier today CT Head: No definite interval change is identified in comparison to a prior CT study of 06/22/2017. Mild periventricular and subcortical hypodensity is noted probably on the basis of mild chronic microvascular ischemic changes. Atherosclerotic calcifications are seen along the intracranial vertebral and internal carotid arteries which are probably somewhat more prominent than would be expected for the patient's chronologic age. Correlate with clinical risk factors. As on the prior study moderate left mastoid and mild to moderate right mastoid fluid accumulation is seen. Correlate clinically. 07/06/17 18:21 07/06/17 18:26 Patient has acute kidney injury creatinine 0.9 on 07/03 up to 5 today. 07/06/17 18:27 Will admit to Hospitalist 07/06/17 19:13 Patient signed out to Dr. Guidry *DC/Admit/Observation/Transfer Diagnosis at time of Disposition: Acute kidney failure, Syncope and collapse - Referrals Referrals: Hai Davis [Primary Care Provider] - - Patient Instructions - Post Discharge Activity
[2017-07-06 17:01] LABS: ALBUMIN 2.6 g/dl (3.4-5.0); ANION GAP 10 (8-16); BILIRUBIN,TOTAL 0.4 mg/dL (0.2-1.0); BLOOD UREA NITROGEN 23 mg/dL (7-18); CALCIUM 8.1 mg/dL (8.5-10.1); CHLORIDE 100 mmol/L (98-107); CO2 27 mmol/L (21-32); CREATININE 5.3 mg/dL (0.7-1.3); GLUCOSE,RANDOM 117 mg/dL (74-106); POTASSIUM 3.9 mmol/L (3.5-5.1); SGOT/AST 41 U/L (15-37); SGPT/ALT 20 U/L (12-78); SODIUM 137 mmol/L (136-145)
[2017-07-06 17:04] LABS: ALK PHOS 57 U/L (45-117)
--- NOTE | 2017-07-06 18:09 | PDOC ---
Attending Attestation - HPI HPI: 07/06/17 18:10 The patient is a 57 year old male, from [facility], with a significant past medical history of ESRD (on HD TTS), DM, PVD, OM, CVAx2 (w/LLE residual weakness), who presents to the emergency department s/p syncopal episode earlier today. The patient reports he was in the bathroom, about to change for his hyperbaric treatment of a chronic left foot wound, when suddenly he passed out. Patient does not recall whether he hit his head and denies any headache, dizziness, lightheadedness, nausea, vomiting, changes in vision, neck or back pain, numbness, or tingling. He denies any fever or chills. He denies any recent travel or sick contacts. Allergies: Sulfamethoxazole, trimethoprim Past Surgical History: Gastric bypass Social History: Non smoker. No ETOH or recreational drug use. - Physicial Exam PE: 07/06/17 18:27 GENERAL: Awake, alert, and fully oriented, in no acute distress HEAD: No signs of trauma EYES: PERRLA, EOMI, sclera anicteric, conjunctiva clear ENT: Auricles normal inspection, hearing grossly normal, nares patent. Moist mucosa NECK: Normal ROM, supple, no lymphadenopathy, JVD, or masses LUNGS: Breath sounds equal, clear to auscultation bilaterally. No wheezes, and no crackles HEART: Regular rate and rhythm, normal S1 and S2, no murmurs, rubs or gallops ABDOMEN: Soft, obese, nontender, normoactive bowel sounds. No guarding, no rebound. No masses EXTREMITIES: Normal range of motion, no edema. No clubbing or cyanosis. No cords, erythema, or tenderness. DP/PT pulses 2+ and symmetric. Warm and well perfused. S/p left foot amputation. NEUROLOGICAL: Moves all extremities. Normal speech. SKIN: Warm, Dry, normal turgor, no rashes or lesions noted. - Medical Decision Making 07/06/17 18:10 Documentation prepared by Sona Ramon, acting as biomedical engineering aide for Tg Chavira MD. <Sona Ramon - Last Filed: 07/06/17 18:27> - Resident Resident Name: Reinaldo Cook - ED Attending Attestation I have performed the following: I have examined & evaluated the patient, The case was reviewed & discussed with the resident, I agree w/resident's findings & plan - Physicial Exam PE: 07/06/17 18:27 awake alert lungs clear bilaterally heart rrr nomrg abd soft nt nd. ext wwp. skin warm and dry. s/p foot amputation - Medical Decision Making 57 yo male h/o ckd hth here s/p syncopal episode at hyperbarics. differential infection anemia dysrhythmia, plan ekg labs ekg cxr will admit observation for syncope. 07/06/17 19:16 <Tg Chavira - Last Filed: 07/06/17 19:18> Heart Score/ECG Review #1 General ECG Interpretation: Sinus Rhythm, Normal Rate (61), Normal Intervals, No acute ischemic changes <Tg Chavira - Last Filed: 07/06/17 19:18>
[2017-07-06] MEDS ORDERED: SODIUM CHLORIDE 1,000 ML IV STA (18:27)
--- NOTE | 2017-07-06 19:59 | PDOC ---
*Physical Exam - Vital Signs Last Vital Signs Temp Pulse Resp BP Pulse Ox 98.1 F 75 21 124/56 100 07/06/17 15:40 07/06/17 15:40 07/06/17 15:40 07/06/17 15:40 07/06/17 15:40 07/06/17 19:59 Patient's care endorsed to me at the end of Dr. Cook's shift. 57 YOM with h/o CKD and chronic foot wound who was preparing to have hyperbaric therapy when he had a syncopal episode in the bathroom while removing his clothing. Rapid response was called at that time and patient was brought to the ED for evaluation. Awaiting UA as patient has been unable to give sample yet. May need Christianson if unable to give a sample. To be admitted to [facility]; microblog has been placed. 07/06/17 20:06 Spoke with patient's mother Valeria Guerrero. She is very concerned, wants an update, unable to come to [facility] at this time as she lives out of town. Received consent to release information from the patient. Updated the patient's mother on his status and plan. Heart Score/ECG Review #1 Sinus rhythm, rate of 75, poor EKG data quality but normal axis, normal intervals, no ischemic changes ED Treatment Course - LABORATORY CBC & Chemistry Diagram: 07/06/17 15:55 07/06/17 15:55 - ADDITIONAL ORDERS Additional order review: Laboratory Results 07/06/17 07/06/17 15:55 15:55 PT with INR 13.30 H INR 1.18 H PTT (Actin FS) 28.6 Sodium 137 Potassium 3.9 Chloride 100 D Carbon Dioxide 27 D Anion Gap 10 BUN 23 H Creatinine 5.3 H D Creat Clearance w eGFR 11.24 Random Glucose 117 H D Calcium 8.1 L Total Bilirubin 0.4 AST 41 H D ALT 20 D Alkaline Phosphatase 57 D Troponin I 0.02 D Total Protein 7.0 D Albumin 2.6 L 07/06/17 15:55 RBC 2.92 L MCV 90.0 MCHC 33.0 RDW 15.5 MPV 8.6 Neutrophils % 64.0 Lymphocytes % 13.6 D Monocytes % 8.5 Eosinophils % 11.7 H Basophils % 2.2 H - Medications Given in the ED: ED Medications Discontinued Medications Generic Name Dose Route Start Last Admin Trade Name Freq PRN Reason Stop Dose Admin Sodium Chloride 1,000 mls @ 1,000 mls/hr 07/06/17 18:27 07/06/17 18:41 Normal Saline - IV 07/06/17 19:26 1,000 mls/hr ASDIR STA Administration *DC/Admit/Observation/Transfer Diagnosis at time of Disposition: Syncope and collapse, Abnormal EKG Acute kidney failure Qualifiers: Acute renal failure type: unspecified Qualified Code(s): N17.9 - Acute kidney failure, unspecified Anemia Qualifiers: Anemia type: unspecified type Qualified Code(s): D64.9 - Anemia, unspecified - Discharge Dispostion Condition at time of disposition: Guarded Admit: Yes - Referrals - Patient Instructions - Post Discharge Activity
[2017-07-06] MEDS ORDERED: LIDOCAINE HCL 2% JELLY 10 ML CARTRIDGE ONE (20:03)
[2017-07-06 20:21] LABS: URINE APPEARANCE CLEAR; URINE BILIRUBIN NEGATIVE (<2.0 mg/dL); URINE COLOR LTYELLOW; URINE GLUCOSE (UA) 1+ (NEGATIVE); URINE KETONE NEGATIVE (NEGATIVE); URINE LEUK ESTERASE NEGATIVE (NEGATIVE); URINE NITRITE NEGATIVE (NEGATIVE); URINE UROBILINOGEN NEGATIVE mg/dL (0.2-1.0)
[2017-07-06 20:36] LABS: URINE PROTEIN 1+ (NEGATIVE)
[2017-07-06 20:38] LABS: EPI CELLS RARE /HPF (FEW)
--- NOTE | 2017-07-06 20:40 | HP ---
CHIEF COMPLAINT: syncope HISTORY OF PRESENT ILLNESS: 56 yo M w PMH of ESRD (on HD TTS), NIDDM, PVD, OM, CVAx2 (w/LLE residual weakness), s/p L foot transmetatarsal amputation, DM, HTN , presented from [facility], with an unwitnessed syncopal episode today after he completed his hyperbaric treatment. The patient fell in the bathroom and does not remember what happened prior to falling. He said the first thing he remembered after his fall was being in CT scan in the emergency room. He was told he was confused after his syncopal episode. Patient says he had dialysis this morning and has felt weakened and dizzy since dialysis. He also admits to not eating a meal after dialysis and having only a small snack before he lost consciousness in the afternoon. Patient was recently admitted a few weeks ago because of syncopal episode after dialysis. Patient also endorses dizziness when quickly getting up from a seated position. He currently denies headache, nausea, vomiting, dysuria, chills, fevers, sob, chest pain, vision loss, loss of bladder control, tongue biting. ER course was notable for: (1) Ct head: unremarkable for acute pathology (2) Cxr: visualized portion of chest unremarkable (3) EKG: NSR, no changes from previous EKG Recent Travel: denies PAST MEDICAL HISTORY: per hpi PAST SURGICAL HISTORY: s/p L foot transmetatarsal amputation with dorsal dehiscence ulcer (on 06/27/17) Social History: Smoking: denies Alcohol: denies Drugs: denies Family History: Allergies fish derived Allergy (Severe, Verified 07/06/17 20:17) Hives Shellfish Allergy (Severe, Verified 07/06/17 20:17) throat swelling sulfamethoxazole [From Bactrim DS] Allergy (Severe, Verified 07/06/17 20:17) Swelling trimethoprim [From Bactrim DS] Allergy (Severe, Verified 07/06/17 20:17) Swelling HOME MEDICATIONS: Home Medications Medication Instructions Recorded Omeprazole [Prilosec (RX)] 20 mg PO DAILY 08/13/14 Atorvastatin Ca [Lipitor] 80 mg PO HS 05/24/16 Carvedilol 12.5 mg PO BID 05/24/16 Ferrous Sulfate [Feosol] 1 tab PO DAILY 08/02/16 Albuterol Sulfate [Proair 90 mcg IH BID 11/13/16 Respiclick] Cholecalciferol (Vitamin D3) 2,000 unit PO DAILY 11/13/16 [Vitamin D3] Aspirin [ASA -] 81 mg PO DAILY #30 tab.chew 11/15/16 Glipizide 5 mg PO BID 04/19/17 Pregabalin [Lyrica -] 75 mg PO DAILY MDD 50 mg 04/19/17 Calcium Acetate [Phoslo -] 1,334 mg PO TIDCM capsule 04/27/17 Collagenase Clostridium Hist. 1 applic TP DAILY #1 tube 04/27/17 [Santyl -] Docusate Sodium [Colace -] 100 mg PO TID PRN #90 capsule 04/27/17 Polyethylene Glycol 3350 [Miralax 17 gm PO DAILY bottle 04/27/17 119 gm Btl -] Torsemide 80 mg PO DAILY #120 tablet 04/27/17 Lorazepam [Ativan] 2 mg PO DAILY #30 tablet MDD 1 06/01/17 Heparin - 5,000 unit SQ TID vial 06/30/17 oxyCODONE HCL [Roxicodone -] 10 mg PO Q4H PRN #18 tablet MDD 4 07/03/17 REVIEW OF SYSTEMS CONSTITUTIONAL: Absent: fever, chills, diaphoresis, generalized weakness, malaise, loss of appetite, weight change HEENT: Absent: visual changes CARDIOVASCULAR: lightheadedness, syncope Absent: chest pain, palpitations, irregular heart rate, peripheral edema RESPIRATORY: Absent: cough, shortness of breath, dyspnea with exertion, orthopnea, wheezing, stridor, hemoptysis GASTROINTESTINAL: nausea Absent: abdominal pain, abdominal distension, vomiting, diarrhea, constipation, melena, hematochezia GENITOURINARY: Absent: dysuria, frequency, urgency, hesitancy, hematuria, flank pain, genital pain MUSCULOSKELETAL: Absent: myalgia, arthralgia, joint swelling, back pain, neck pain NEUROLOGIC: Absent: headache, focal weakness or paresthesias, dizziness, unsteady gait, seizure, mental status changes, bladder or bowel incontinence PSYCHIATRIC: Absent: anxiety, depression, suicidal or homicidal ideation, hallucinations. PHYSICAL EXAMINATION Vital Signs - 24 hr 07/06/17 07/06/17 15:40 20:19 Temperature 98.1 F Pulse Rate 75 Pulse Rate [ 68 Apical] Respiratory 21 18 Rate Blood Pressure 124/56 Blood Pressure 112/50 [Right Arm] O2 Sat by Pulse 100 100 Oximetry (%) GENERAL: obese, a/o x 3 in NAD HEAD: Normal with no signs of trauma. EYES: pinpoint pupils, non reactive to light EARS, NOSE, THROAT: oropharynx clear without exudates. Moist mucous membranes. NECK: supple without lymphadenopathy, JVD, or masses. LUNGS: Breath sounds equal, clear to auscultation bilaterally. No wheezes, and no crackles. HEART: Regular rate and rhythm, normal S1 and S2 without murmur, rub or gallop. ABDOMEN: Soft, nontender, not distended, normoactive bowel sounds, UPPER EXTREMITIES: hand tremors, 2+ pulses, No peripheral edema. LOWER EXTREMITIES: 2+ pulses,No peripheral edema. sutured L foot transmetatarsal amputation, serosanguinous, no pus. NEUROLOGICAL: Cranial nerves II-XII intact. Normal speech. normal finger to nose. Residual Left sided weakness on face, LUE, LLE. PSYCHIATRIC: Cooperative. Good eye contact. Appropriate mood and affect. Laboratory Results - last 24 hr 07/06/17 07/06/17 07/06/17 15:55 15:55 15:55 WBC 5.9 RBC 2.92 L Hgb 8.7 L D Hct 26.3 L MCV 90.0 MCH 29.7 MCHC 33.0 RDW 15.5 Plt Count 292 MPV 8.6 Neutrophils % 64.0 Lymphocytes % 13.6 D Monocytes % 8.5 Eosinophils % 11.7 H Basophils % 2.2 H PT with INR 13.30 H INR 1.18 H PTT (Actin FS) 28.6 Sodium 137 Potassium 3.9 Chloride 100 D Carbon Dioxide 27 D Anion Gap 10 BUN 23 H Creatinine 5.3 H D Creat Clearance w eGFR 11.24 Random Glucose 117 H D Calcium 8.1 L Total Bilirubin 0.4 AST 41 H D ALT 20 D Alkaline Phosphatase 57 D Troponin I 0.02 D Total Protein 7.0 D Albumin 2.6 L ASSESSMENT/PLAN: 56 yo M w PMH of ESRD (on HD TTS), NIDDM, PVD, OM, CVAx2 (w/LLE residual weakness), DM, HTN, presented with syncope. #Syncope -likely orthostatic -Tele -Echo, EEG, carotids unremarkable in recent previous admission. -orthostatic vital signs -Head CT: unremarkable for acute pathology -trend trops -fall risk precaution -held Torsemide #s/p L foot transmetatarsal amputation -podiatry consulted -cont. oxycodone 10mg q6h for pain control #CKD -completed diaylsis today -Will follow up outpatient -avoid nephrotoxins #HTN -Coreg 12.5mg BID -ASA 81mg #DM -BGMs -ISS -held glipizide #HLD/CAD -Lipitor 80mg -ASA 81mg #hx COPD -albuterol prn #GERD -omeprazole 20mg daily Visit type - Emergency Visit Emergency Visit: Yes ED Registration Date: 07/06/17 Care time: The patient presented to the Emergency Department on the above date and was hospitalized for further evaluation of their emergent condition. - New Patient This patient is new to me today: Yes Date on this admission: 07/09/17 - Critical Care Critical Care patient: No Hospitalist Screening - Colonoscopy Questionnaire Colonoscopy Questionnaire: Colonoscopy Questionnaire - Patient: 50 - 75 years old and never had a screening colonoscopy: Unknown History of colon or rectal polyps, or CA: Unknown History of IBD, Crohn's disease or UC: Unknown History of abdominal radiation therapy as a child: Unknown - Relative: 1 with colon or rectal CA, or polyps at age 60 or younger: Unknown Colon or rectal CA diagnosed at age 45 or younger: Unknown Multiple relatives with colon or rectal CA: Unknown - Outcome: Screening Result: Negative Screen
[2017-07-06] MEDS ORDERED: ALBUTEROL SO4 0.083% IH SOL 2.5 MG/3 ML VIAL.NEB. NEB PRN (22:05)
[2017-07-06] MEDS: HEPARIN NA (PORCINE) 5,000 UNITS/ML 1ML VIAL SQ SCH (23:50)
[2017-07-07] MEDS: INSULIN SLIDING SCALE (NOVOLOG) 1 VIAL SQ SCH ×5 (00:03→23:00)
--- NOTE | 2017-07-07 01:22 | MSN ---
Admitting History and Physical - Admission Chief Complaint: Syncope History of Present Illness: Patient is a 57 year old male with ESRD, DM, CVA and diabetic foot ulcer s/p transmetataral amputation that presented to the ER after a syncopal episode yesterday afternoon while waiting for hyperbaric treatment for his surgical wound. The patient states that yesterday morning he obtained his regularly scheduled dialysis treatment but afterwards felt more tired then usual. The patient states that he had no breakfast before his dialysis and had a small lunch after. After eating lunch the patient went to the facility for hyperbaric treatment. The patient remembers standing up and walking to the bathroom in the waiting room but cannot remember any events after this point. It is unclear whether the patient had any LOC, seizure, or head trauma, but the patient was found on the floor in the bathroom by facility staff. The patients next recollection of event is of having his CT scan taken later that day. The Patient denies any head ache, fever, chills, lightheadedness, dizziness, chest pain, SOB, incontinence, muscle weakness, or tongue/biting lesions. 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 Cardiovascular: Yes: HTN, Hyperlipdemia Pulmonary: Yes: Sleep Apnea Gastrointestinal: Yes: GERD, Other (obesity) Renal/: Yes: Renal Failure, Renal Inusuff, Hemodialysis, Other Heme/Onc: Yes: Anemia Endocrine: Yes: Diabetes Mellitus - Past Surgical History Past Surgical History: Yes: AV Fistula/Graft - Smoking History Smoking history: Never smoked Have you smoked in the past 12 months: No Aproximately how many cigarettes per day: 0 - Alcohol/Substance Use Hx Alcohol Use: No - Social History ADL: Independent History of Recent Travel: No Home Medications - Allergies Allergies/Adverse Reactions: Allergies Allergy/AdvReac Type Severity Reaction Status Date / Time fish derived Allergy Severe Hives Verified 07/06/17 20:17 Shellfish Allergy Severe Verified 07/06/17 20:17 sulfamethoxazole Allergy Severe Swelling Verified 07/06/17 20:17 [From Bactrim DS] trimethoprim Allergy Severe Swelling Verified 07/06/17 20:17 [From Bactrim DS] - Home Medications Home Medications: Ambulatory Orders Omeprazole [Prilosec (RX)] 20 mg PO DAILY 08/13/14 Atorvastatin Ca [Lipitor] 80 mg PO HS 05/24/16 Carvedilol 12.5 mg PO BID 05/24/16 Ferrous Sulfate [Feosol] 1 tab PO DAILY 08/02/16 Albuterol Sulfate [Proair Respiclick] 90 mcg IH BID 11/13/16 Cholecalciferol (Vitamin D3) [Vitamin D3] 2,000 unit PO DAILY 11/13/16 Aspirin [ASA -] 81 mg PO DAILY #30 tab.chew 11/15/16 Glipizide 5 mg PO BID 04/19/17 Pregabalin [Lyrica -] 100 mg PO DAILY MDD 50 mg 04/19/17 Calcium Acetate [Phoslo -] 1,334 mg PO TIDCM capsule 04/27/17 Collagenase Clostridium Hist. [Santyl -] 1 applic TP DAILY #1 tube 04/27/17 Docusate Sodium [Colace -] 100 mg PO TID PRN #90 capsule 04/27/17 Polyethylene Glycol 3350 [Miralax 119 gm Btl -] 17 gm PO DAILY bottle 04/27/17 Torsemide 80 mg PO DAILY #120 tablet 04/27/17 Lorazepam [Ativan] 2 mg PO DAILY #30 tablet MDD 1 06/01/17 oxyCODONE HCL [Roxicodone -] 10 mg PO Q4H PRN #18 tablet MDD 4 07/03/17 Family Disease History - Family Disease History Family Disease History: Heart Disease: Father ( of SANON at 43 ), CA: Mother ( Breast) Review of Systems - Review of Systems Constitutional: reports: Lethargy. denies: Chills, Fever HENT: reports: Other (denies headache) Cardiovascular: denies: Chest Pain, Shortness of Breath Respiratory: denies: SOB Gastrointestinal: denies: Abdominal Pain, Nausea Neurological: denies: Change in LOC, Change in Speech, Confusion, Dizziness, Headache Physical Examination Vital Signs: Vital Signs Temperature 98.5 F 07/07/17 01:12 Pulse Rate 67 07/07/17 01:12 Respiratory Rate 16 07/07/17 01:12 Blood Pressure 108/60 07/07/17 01:12 O2 Sat by Pulse Oximetry (%) 100 07/06/17 20:19 Constitutional: Yes: Well Nourished, No Distress, Calm Eyes: Yes: Conjunctiva Clear, EOM Intact, Other (pupils small and non- reactive to light) HENT: Yes: Atraumatic, Normocephalic. No: Pharyngeal Erythema Neck: Yes: Supple, Trachea Midline. No: Thyromegaly Cardiovascular: Yes: Regular Rate and Rhythm, S1, S2 Respiratory: Yes: Regular, CTA Bilaterally Gastrointestinal: Yes: Normal Bowel Sounds, Abdomen, Obese. No: Tenderness Extremities: Yes: Amputation (transmetatarsal amputation) Edema: Yes Edema: LLE: 2+, RLE: 2+ Peripheral Pulses WNL: No Peripheral Pulses: Left Doralis Pedis: 0, Right Dorsalis Pedis: 0 Integumentary: Yes: Venous Stasis Changes Wound/Incision: Yes: Sutures Intact, Draining (draining serosangious fluid without purilance) Neurological: Yes: Alert, Oriented, Cran Nerves II-XII Intact, Tremors (resting tremor unchanged from baseline) ...Motor Strength: WNL, LUE (4/5), LLE (4/5), RUE (5/5), RLE (5/5) Psychiatric: Yes: WNL Labs: CBC, BMP 07/06/17 15:55 07/06/17 15:55 Assessment/Plan Assessment/Plan: Patient is a 57 year old male with past med hx of ESRD, DM, CVA , and diabetic foot ulcer s/p transmetatarsal foot amputation that presented to the ER after experiencing a syncopal episode. # Syncopal episode - most likely diagnosis is orthostatic hypertension - less likely from seizure, arrhythmia, valvular pathology, or hypoglycemia - EKG unchanged from baseline - obtain orthostatic blood pressure - trend second troponin - patient had EEG, Echo, and carotid doppler at previous visit for syncope. All yielded negative results with no need to repeat at this time. # Diabetic foot ulcer - s/p tranmetatarsal amputation - surgical site draining fluid suspicious for infectious process - negative wbc count - no need for abx as per ID - consult podiatry # Diabetes - well controlled on home regimen - glucose 117 - hbg a1c 6.2 - start insulin sliding scale F/E/N - diabetic diet Disp- admit for observation
--- NOTE | 2017-07-07 02:49 | PN ---
Teaching Attending Note Name of Resident: Luz Marina Moss ATTENDING PHYSICIAN STATEMENT I saw and evaluated the patient. Chart, data, imaging reviewed. I reviewed the resident's note and discussed the case with the resident. I agree with the resident's findings and plan as documented. SUBJECTIVE: 56 yo M w PMH of ESRD (on HD TTS), NIDDM, PVD, OM, CVAx2 (w/LLE residual weakness), s/p recent L foot transmetatarsal amputation -06/27, DM, HTN, from [facility] rehab in hospital 07/06 for hyperbaric oxygen treatment of of left foot wound. Shortly after patient was rising from seated position to go to bathroom and subsequently fell. It is unclear whether he lost consciousness however patient thinks he may have. No signs of trauma to head and CT of head was negative for any acute intracranial events. Prior history of orthostatic hypotension and syncope. No antibiotics planned previously because source of infection thought to be controlled after amputation. OBJECTIVE: Last Vital Signs Temp Pulse Resp BP Pulse Ox 98.5 F 67 16 108/60 100 07/07/17 01:12 07/07/17 01:12 07/07/17 01:17 07/07/17 01:12 07/07/17 01:17 general-morbidly obese, nad, aaox3 heent- atrumatic, perrla, no scleral pallor cv-s1+s2+ rrr chest- cta b/l abdomen- obese, nontender, bs+ extremities- b/l chronic venous stasis changes, left foot s/p TMA with serosanginous discharge from amputation site, slight erythema, nontender to palpation left upper extremity AV fistula, good thrill, bruit Abnormal Lab Results 07/06/17 07/06/17 07/06/17 15:55 15:55 15:55 RBC 2.92 L Hgb 8.7 L D Hct 26.3 L Eosinophils % 11.7 H Basophils % 2.2 H PT with INR 13.30 H INR 1.18 H BUN 23 H Creatinine 5.3 H D Random Glucose 117 H D Calcium 8.1 L AST 41 H D Albumin 2.6 L Urine Protein Urine Glucose (UA) Urine Blood 07/06/17 20:10 RBC Hgb Hct Eosinophils % Basophils % PT with INR INR BUN Creatinine Random Glucose Calcium AST Albumin Urine Protein 1+ H Urine Glucose (UA) 1+ H Urine Blood 1+ H ASSESSMENT AND PLAN: #Acute syncope- likely orthostatic. Prior history of orthostatic hypotension. May have been vasovagal as patient likely has autonomic neuropathy. Head CT wnl. Recent transthoracic echo performed so will defer on this admission. Troponin was negative. -tele-observation -repeat ekg -check orthostatics #Left foot wound s/p transmetatarsal amputation- wound site with some sero- sanginous drainage. May require possible additional debridement. No signs of systemic infection as there is no fever or leukocytosis. -podiatry evaluation for possible additional debridement -local wound care -no antibiotics at this time #ESRD -renal to restart on dialysis -heparin sc for dvt ppx -restart home medications
[2017-07-07] MEDS: HEPARIN NA (PORCINE) 5,000 UNITS/ML 1ML VIAL SQ SCH ×3 (06:25→23:00)
[2017-07-07 07:38] LABS: HEMATOCRIT 23.9 % (35.4-49); HEMOGLOBIN 7.9 GM/dL (11.7-16.9); MCH 29.8 pg (25.7-33.7); MCHC 33.1 g/dl (32.0-35.9); MEAN CELL VOLUME 90.1 fl (80-96); MEAN PLT VOLUME 8.6 fl (7.5-11.1); PLATELET COUNT 252 K/MM3 (134-434); RBC 2.66 M/mm3 (4.00-5.60); RDW 15.6 % (11.9-15.9); WHITE BLOOD COUNT 5.4 K/mm3 (4.0-10.0)
[2017-07-07 07:46] LABS: INR 1.25 (0.82-1.09); PROTHROMBIN TIME (PATIENT) 14.1 SEC (9.7-13.0)
[2017-07-07 07:48] LABS: ALBUMIN 2.3 g/dl (3.4-5.0); ANION GAP 10 (8-16); BLOOD UREA NITROGEN 30 mg/dL (7-18); CALCIUM 7.7 mg/dL (8.5-10.1); CHLORIDE 105 mmol/L (98-107); CO2 26 mmol/L (21-32); GLUCOSE,RANDOM 73 mg/dL (74-106); MAGNESIUM 2.2 mg/dL (1.8-2.4); POTASSIUM 3.9 mmol/L (3.5-5.1); SODIUM 141 mmol/L (136-145)
[2017-07-07 07:51] LABS: ALK PHOS 51 U/L (45-117); BILIRUBIN,TOTAL 0.4 mg/dL (0.2-1.0); CREATININE 6.4 mg/dL (0.7-1.3); PHOSPHOROUS 4.5 mg/dL (2.5-4.9); SGOT/AST 33 U/L (15-37); SGPT/ALT 18 U/L (12-78); TOT PROT 6.1 g/dl (6.4-8.2)
[2017-07-07] MEDS: CALCIUM ACETATE 667 MG CAPSULE (FP) PO SCH ×3 (09:00→17:10)
[2017-07-07] MEDS: PREGABALIN 50 MG CAPSULE PO SCH (09:10)
[2017-07-07] MEDS: CARVEDILOL 12.5 MG TABLET (FP) PO SCH ×2 (09:11→23:00)
[2017-07-07] MEDS: FERROUS SO4 325 MG TABLET (FP) PO SCH (09:11)
[2017-07-07] MEDS: PANTOPRAZOLE 20 MG TABLET (FP) PO SCH (09:12)
[2017-07-07] MEDS: ASPIRIN 81 MG CHEWABLE TABLETS PO SCH (09:12)
[2017-07-07] MEDS: CHOLECALCIFEROL (VITAMIN D3) 1,000 UNIT TABLET (FP) PO SCH (09:12)
[2017-07-07] MEDS: POLYETHYLENE GLYCOL 3350 119 GM BTL PO SCH (09:13)
--- NOTE | 2017-07-07 09:35 | EKG ---
Test Reason : Blood Pressure : / mmHG Vent. Rate : 061 BPM Atrial Rate : 061 BPM P-R Int : 214 ms QRS Dur : 104 ms QT Int : 430 ms P-R-T Axes : 051 264 031 degrees QTc Int : 432 ms SINUS RHYTHM WITH 1ST DEGREE A-V BLOCK RIGHT SUPERIOR AXIS DEVIATION LOW VOLTAGE QRS POOR R WAVE PROGRESSION ABNORMAL ECG Confirmed by DALIA VICENTE MD ([id number]) on 07/07/2017 9:34:55 AM Referred By: Confirmed By:DALIA VICENTE MD
[2017-07-07] MEDS ORDERED: PREGABALIN 50 MG CAPSULE PO SCH (10:00)
[2017-07-07] MEDS ORDERED: COLLAGENASE CLOSTRIDIUM HIST. 30 GRAMS TUBE TP SCH (10:00)
[2017-07-07] MEDS ORDERED: TORSEMIDE 20 MG TABLET (FP) PO SCH (10:00)
--- NOTE | 2017-07-07 13:47 | PN ---
Physical Exam: SUBJECTIVE: Patient seen and examined Patient had no acute events overnight. Does not recall what happened prior to event. Patient yesterday had HD and then hyperbarics, patient felt lightheaded previously. OBJECTIVE: Vital Signs Period Temp Pulse Resp BP Sys/Leon Pulse Ox Last 24 Hr 98.1 F-98.5 F 67-75 16-21 107-124/49-60 100-100 GENERAL: The patient is awake, alert, and fully oriented, in no acute distress. HEAD: Normal with no signs of trauma. EYES: PERRL, extraocular movements intact, sclera anicteric, conjunctiva clear. No ptosis. ENT: Ears normal, nares patent, oropharynx clear without exudates, moist mucous membranes. NECK: Trachea midline, full range of motion, supple. LUNGS: Breath sounds equal, clear to auscultation bilaterally, no wheezes, no crackles, no accessory muscle use. HEART: Regular rate and rhythm, S1, S2 without murmur, rub or gallop. ABDOMEN: Soft, nontender, nondistended, normoactive bowel sounds, no guarding, no rebound, no hepatosplenomegaly, no masses. EXTREMITIES: Chronic changes to b/l lower extremities. Left extremity--- TMA with stitches intact. No purulent drainage, dressing soaked with serosanginous fluid NEUROLOGICAL: Cranial nerves II through XII grossly intact. Normal speech, normal 5/5 stregth, sensation intact b/l PSYCH: Normal mood, normal affect. SKIN: Warm, dry, normal turgor, no rashes or lesions noted Laboratory Results - last 24 hr 07/06/17 07/06/17 07/06/17 15:55 15:55 15:55 WBC 5.9 RBC 2.92 L Hgb 8.7 L D Hct 26.3 L MCV 90.0 MCH 29.7 MCHC 33.0 RDW 15.5 Plt Count 292 MPV 8.6 Neutrophils % 64.0 Lymphocytes % 13.6 D Monocytes % 8.5 Eosinophils % 11.7 H Basophils % 2.2 H PT with INR 13.30 H INR 1.18 H PTT (Actin FS) 28.6 Sodium 137 Potassium 3.9 Chloride 100 D Carbon Dioxide 27 D Anion Gap 10 BUN 23 H Creatinine 5.3 H D Creat Clearance w eGFR 11.24 POC Glucometer Random Glucose 117 H D Calcium 8.1 L Phosphorus Magnesium Total Bilirubin 0.4 AST 41 H D ALT 20 D Alkaline Phosphatase 57 D Troponin I 0.02 D Total Protein 7.0 D Albumin 2.6 L Urine Color Urine Appearance Urine pH Ur Specific [place] Urine Protein Urine Glucose (UA) Urine Ketones Urine Blood Urine Nitrite Urine Bilirubin Urine Urobilinogen Ur Leukocyte Esterase Urine WBC (Auto) Urine RBC (Auto) Ur Epithelial Cells 07/06/17 07/07/17 07/07/17 20:10 00:00 06:24 WBC RBC Hgb Hct MCV MCH MCHC RDW Plt Count MPV Neutrophils % Lymphocytes % Monocytes % Eosinophils % Basophils % PT with INR INR PTT (Actin FS) Sodium Potassium Chloride Carbon Dioxide Anion Gap BUN Creatinine Creat Clearance w eGFR POC Glucometer 92 Random Glucose Calcium Phosphorus Magnesium Total Bilirubin AST ALT Alkaline Phosphatase Troponin I 0.02 Total Protein Albumin Urine Color Ltyellow Urine Appearance Clear Urine pH 7.0 Ur Specific [place] 1.004 Urine Protein 1+ H Urine Glucose (UA) 1+ H Urine Ketones Negative Urine Blood 1+ H Urine Nitrite Negative Urine Bilirubin Negative Urine Urobilinogen Negative Ur Leukocyte Esterase Negative Urine WBC (Auto) 1 Urine RBC (Auto) <1 Ur Epithelial Cells Rare 07/07/17 07/07/17 07/07/17 07:07 07:07 07:07 WBC 5.4 RBC 2.66 L Hgb 7.9 L Hct 23.9 L MCV 90.1 MCH 29.8 MCHC 33.1 RDW 15.6 Plt Count 252 MPV 8.6 Neutrophils % Lymphocytes % Monocytes % Eosinophils % Basophils % PT with INR 14.10 H INR 1.25 H PTT (Actin FS) Sodium 141 Potassium 3.9 Chloride 105 Carbon Dioxide 26 Anion Gap 10 BUN 30 H D Creatinine 6.4 H D Creat Clearance w eGFR 9.04 POC Glucometer Random Glucose 73 L D Calcium 7.7 L Phosphorus 4.5 D Magnesium 2.2 Total Bilirubin 0.4 AST 33 ALT 18 Alkaline Phosphatase 51 Troponin I Total Protein 6.1 L Albumin 2.3 L Urine Color Urine Appearance Urine pH Ur Specific [place] Urine Protein Urine Glucose (UA) Urine Ketones Urine Blood Urine Nitrite Urine Bilirubin Urine Urobilinogen Ur Leukocyte Esterase Urine WBC (Auto) Urine RBC (Auto) Ur Epithelial Cells 07/07/17 11:44 WBC RBC Hgb Hct MCV MCH MCHC RDW Plt Count MPV Neutrophils % Lymphocytes % Monocytes % Eosinophils % Basophils % PT with INR INR PTT (Actin FS) Sodium Potassium Chloride Carbon Dioxide Anion Gap BUN Creatinine Creat Clearance w eGFR POC Glucometer 119 Random Glucose Calcium Phosphorus Magnesium Total Bilirubin AST ALT Alkaline Phosphatase Troponin I Total Protein Albumin Urine Color Urine Appearance Urine pH Ur Specific [place] Urine Protein Urine Glucose (UA) Urine Ketones Urine Blood Urine Nitrite Urine Bilirubin Urine Urobilinogen Ur Leukocyte Esterase Urine WBC (Auto) Urine RBC (Auto) Ur Epithelial Cells Active Medications Generic Name Dose Route Start Last Admin Trade Name Freq PRN Reason Stop Dose Admin Albuterol Sulfate 1 amp 07/06/17 22:05 Ventolin 0.083% Nebulizer Soln - NEB Q6H PRN SHORT OF BREATH/WHEEZING Aspirin 81 mg 07/07/17 10:00 07/07/17 09:12 Asa - PO 81 mg DAILY [facility] Administration Atorvastatin Calcium 80 mg 07/07/17 22:00 Lipitor - PO HS [facility] Calcium Acetate 1,334 mg 07/07/17 08:00 07/07/17 11:56 Phoslo - PO 1,334 mg TIDCM [facility] Administration Carvedilol 12.5 mg 07/07/17 10:00 07/07/17 09:11 Coreg - PO 12.5 mg BID [facility] Administration Cholecalciferol 2,000 unit 07/07/17 10:00 07/07/17 09:12 Vitamin D3 - PO 2,000 unit DAILY [facility] Administration Docusate Sodium 100 mg 07/06/17 22:03 Colace - PO TID PRN CONSTIPATION Ferrous Sulfate 325 mg 07/07/17 10:00 07/07/17 09:11 Feosol - PO 325 mg DAILY [facility] Administration Heparin Sodium (Porcine) 5,000 unit 07/06/17 22:15 07/07/17 06:25 Heparin - SQ 5,000 unit TID [facility] Administration Insulin Aspart 1 vial 07/06/17 22:00 07/07/17 11:53 Novolog Vial Sliding Scale - SQ Not Given ACHS [facility] Protocol Oxycodone HCl 10 mg 07/06/17 22:03 Roxicodone - PO Q6H PRN PAIN LEVEL 6-10 Pantoprazole Sodium 20 mg 07/07/17 10:00 07/07/17 09:12 Protonix - PO 20 mg DAILY [facility] Administration Polyethylene Glycol 17 gm 07/07/17 10:00 07/07/17 09:13 Miralax (For Daily Use) - PO Not Given DAILY [facility] Pregabalin 100 mg 07/07/17 10:00 07/07/17 09:10 Lyrica - PO 100 mg DAILY [facility] Administration ASSESSMENT/PLAN: This is a 56 yo M w PMH of ESRD (on HD TTS), NIDDM, PVD, OM, CVAx2 (w/LLE residual weakness), DM, HTN, who was sent to ER from [facility] due to syncopal episode Syncope, likely 2/2 to orthostatic hypotension EEG, Echo, CUS perfomed within last few weeks Orthostatic VS pending fall risk precautions. cardiac monitoring MRI brain unable to perform 2/2 to weight Diabetic foot ulcer: Post op s/p TMA on 06/27 Podiatry consult Pain control Will need PT and rehab. ESRD on HD nephrology consult gets HD on T, Th, sat continue torsemide 80 on non HD days DM hold home medications BGM monitoring sliding scale HTN continue cavedilol GERD: continue omeprazole Constipation; continue miralaex and colace. HLD Atorvaststin 80mg fluid; orally allowed electrolyte: monitor nutrition: diabetic and renal diet dvt pro: heparin sq gi pro: omeprazole Visit type - Emergency Visit Emergency Visit: Yes ED Registration Date: 07/06/17 Care time: The patient presented to the Emergency Department on the above date and was hospitalized for further evaluation of their emergent condition. - New Patient This patient is new to me today: Yes Date on this admission: 07/07/17 - Critical Care Critical Care patient: No
--- NOTE | 2017-07-07 15:22 | CONSULT ---
Consult Consult Specialty:: Nephrology Reason for Consultation:: ESRD - History of Present Illness Chief Complaint: s/p syncope History of Present Illness: Pt is a 57 year old male with pmhx of DM, PVD and ESRD who was sent in from bariatrics after a syncopal episode. Pt feel while changing in the bathroom. He feels that he may have gotten up too quickly. He had HD yesterday morning, followed by rehab then bariatrics. He is now awake and alert. He feels better today. He denies head trauma. 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: Yes: CVA Cardio/Vascular: Yes: HTN, Hyperlipdemia Pulmonary: Yes: Sleep Apnea Gastrointestinal: Yes: GERD, Other (obesity) Renal/: Yes: Renal Failure, Renal Inusuff, Hemodialysis, Other Endocrine: Yes: Diabetes Mellitus - Past Surgical History Past Surgical History: Yes: AV Fistula/Graft - Alcohol/Substance Use Hx Alcohol Use: No - Smoking History Smoking history: Never smoked Have you smoked in the past 12 months: No Aproximately how many cigarettes per day: 0 - Social History ADL: Independent History of Recent Travel: No Home Medications - Allergies Allergies/Adverse Reactions: Allergies Allergy/AdvReac Type Severity Reaction Status Date / Time fish derived Allergy Severe Hives Verified 07/06/17 20:17 Shellfish Allergy Severe Verified 07/06/17 20:17 sulfamethoxazole Allergy Severe Swelling Verified 07/06/17 20:17 [From Bactrim DS] trimethoprim Allergy Severe Swelling Verified 07/06/17 20:17 [From Bactrim DS] - Home Medications Home Medications: Ambulatory Orders Omeprazole [Prilosec (RX)] 20 mg PO DAILY 08/13/14 Atorvastatin Ca [Lipitor] 80 mg PO HS 05/24/16 Carvedilol 12.5 mg PO BID 05/24/16 Ferrous Sulfate [Feosol] 1 tab PO DAILY 08/02/16 Albuterol Sulfate [Proair Respiclick] 90 mcg IH BID 11/13/16 Cholecalciferol (Vitamin D3) [Vitamin D3] 2,000 unit PO DAILY 11/13/16 Aspirin [ASA -] 81 mg PO DAILY #30 tab.chew 11/15/16 Glipizide 5 mg PO BID 04/19/17 Pregabalin [Lyrica -] 100 mg PO DAILY MDD 50 mg 02/14/18 Calcium Acetate [Phoslo -] 1,334 mg PO TIDCM capsule 04/27/17 Collagenase Clostridium Hist. [Santyl -] 1 applic TP DAILY #1 tube 04/27/17 Docusate Sodium [Colace -] 100 mg PO TID PRN #90 capsule 04/27/17 Polyethylene Glycol 3350 [Miralax 119 gm Btl -] 17 gm PO DAILY bottle 04/27/17 Torsemide 80 mg PO DAILY #120 tablet 04/27/17 Lorazepam [Ativan] 2 mg PO DAILY #30 tablet MDD 1 06/01/17 oxyCODONE HCL [Roxicodone -] 10 mg PO Q4H PRN #18 tablet MDD 4 07/03/17 Family Disease History - Family Disease History Family Disease History: Heart Disease: Father ( of SANON at 43 ), CA: Mother ( Breast) Review of Systems - Review of Systems Constitutional: reports: No Symptoms Eyes: reports: No Symptoms HENT: reports: No Symptoms Neck: reports: No Symptoms Cardiovascular: reports: No Symptoms Respiratory: reports: No Symptoms Gastrointestinal: reports: No Symptoms Genitourinary: reports: No Symptoms Musculoskeletal: reports: No Symptoms Integumentary: reports: No Symptoms Endocrine: reports: No Symptoms Hematology/Lymphatic: reports: No Symptoms Psychiatric: reports: No Symptoms Physical Exam Vital Signs: Vital Signs Temperature 98.9 F 07/07/17 13:50 Pulse Rate 63 07/07/17 13:50 Respiratory Rate 16 07/07/17 13:50 Blood Pressure 120/63 07/07/17 13:50 O2 Sat by Pulse Oximetry (%) 99 07/07/17 12:00 Constitutional: Yes: Calm Eyes: Yes: Conjunctiva Clear HENT: Yes: Atraumatic Neck: Yes: Supple Cardiovascular: Yes: S1, S2 Respiratory: Yes: CTA Bilaterally Gastrointestinal: Yes: Normal Bowel Sounds, Soft, Abdomen, Obese Musculoskeletal: Yes: WNL Edema: Yes Edema: LLE: 1+, RLE: 1+ Neurological: Yes: Oriented Psychiatric: Yes: Oriented Labs: CBC, BMP 07/07/17 07:07 07/07/17 07:07 Laboratory Tests 06/22/17 06/22/17 07/06/17 09:00 09:00 15:55 WBC 19.8 H D Hgb 10.3 L D 8.7 L D Plt Count 421 D Sodium 136 Potassium 4.2 Chloride 103 Carbon Dioxide Anion Gap BUN Creatinine 07/06/17 07/07/17 07/07/17 15:55 07:07 07:07 WBC Hgb 7.9 L Plt Count Sodium 141 Potassium 3.9 Chloride 105 Carbon Dioxide 26 Anion Gap 10 BUN 23 H 30 H D Creatinine 5.3 H D 6.4 H D Imaging - Results Cat Scan: Report Reviewed Problem List - Problems (1) Syncope and collapse Code(s): R55 - SYNCOPE AND COLLAPSE (2) ESRD (end stage renal disease) Code(s): N18.6 - END STAGE RENAL DISEASE (3) HLD (hyperlipidemia) Code(s): E78.5 - HYPERLIPIDEMIA, UNSPECIFIED (4) HTN (hypertension) Code(s): I10 - ESSENTIAL (PRIMARY) HYPERTENSION Assessment/Plan Current Medications Generic Name Dose Route Start Last Admin Trade Name Freq PRN Reason Stop Dose Admin Albuterol Sulfate 1 amp 07/06/17 22:05 Ventolin 0.083% Nebulizer Soln - NEB Q6H PRN SHORT OF BREATH/WHEEZING Aspirin 81 mg 07/07/17 10:00 07/07/17 09:12 Asa - PO 81 mg DAILY [facility] Administration Atorvastatin Calcium 80 mg 07/07/17 22:00 Lipitor - PO HS [facility] Calcium Acetate 1,334 mg 07/07/17 08:00 07/07/17 11:56 Phoslo - PO 1,334 mg TIDCM [facility] Administration Carvedilol 12.5 mg 07/07/17 10:00 07/07/17 09:11 Coreg - PO 12.5 mg BID [facility] Administration Cholecalciferol 2,000 unit 07/07/17 10:00 07/07/17 09:12 Vitamin D3 - PO 2,000 unit DAILY [facility] Administration Docusate Sodium 100 mg 07/06/17 22:03 Colace - PO TID PRN CONSTIPATION Ferrous Sulfate 325 mg 07/07/17 10:00 07/07/17 09:11 Feosol - PO 325 mg DAILY [facility] Administration Heparin Sodium (Porcine) 5,000 unit 07/06/17 22:15 07/07/17 13:57 Heparin - SQ 5,000 unit TID [facility] Administration Insulin Aspart 1 vial 07/06/17 22:00 07/07/17 11:53 Novolog Vial Sliding Scale - SQ Not Given ACHS [facility] Protocol Oxycodone HCl 10 mg 07/06/17 22:03 Roxicodone - PO Q6H PRN PAIN LEVEL 6-10 Pantoprazole Sodium 20 mg 07/07/17 10:00 07/07/17 09:12 Protonix - PO 20 mg DAILY [facility] Administration Polyethylene Glycol 17 gm 07/07/17 10:00 07/07/17 09:13 Miralax (For Daily Use) - PO Not Given DAILY [facility] Pregabalin 100 mg 07/07/17 10:00 07/07/17 09:10 Lyrica - PO 100 mg DAILY [facility] Administration Impression 1. ESRD 2. anemia 3. HTN 4. morbid obesity 5. CVA 6. hyperlipidemia 7. proteinuria - nephrotic 8. PVD 9. lower ext gangrene 10. syncope Plan - ct head negative - HD in am - monitor on tele - pt had syncope in the past - podiatry follow up - epogen for anemia
[2017-07-07] MEDS ORDERED: SODIUM CHLORIDE 250 ML IV PRN (15:24)
--- NOTE | 2017-07-07 15:26 | PN ---
Teaching Attending Note Name of Resident: Maninder Peters ATTENDING PHYSICIAN STATEMENT I saw and evaluated the patient. I reviewed the resident's note and discussed the case with the resident. I agree with the resident's findings and plan as documented. SUBJECTIVE: No fever or chills . no CP or SOB. does not remember what happened yesterday. he reported being light headed yesterday am , after HD then fainted before HBO treatment report some serosanguinous drainage form L foot wound OBJECTIVE: NAD , MMM CV: RRR, no MRG Lungs: CTAB Ext: thick skin with chronic changes seen on legs. L foot with s/p transmetatarsal amputation with clean wound and stitches. serosanguinous drainage on dressing but no drainage expressed with squeezing the wound Neuro : OEMi, round equal pupils, no facial drop. tongue at base line . strength 5/5 inupper and lwoer ext , proximally and distally. sensation to light toich NL. reflexes 1+ knee jerk and 2+ biceps b/l. ASSESSMENT AND PLAN: 56 y/o man with h/o DM , ESRD, on HD TTS, PVD, OM, CVA, morbid obesity s/p gastric sleeve , HTN, anemia, HLP, recent admission for L transmetatarsal amputation due to infection and ischemia . He presented this time after a syncopal episode . 1- Syncope: likely due to orthostatic hypotension ( light headed after his HD ) . complete w/u was done last admission. check orthostatic VS. will d/w dr. Win, if torsemide could be stopped permanently. tele , with no events. 2- h/o ESRD. on HD TTS. - renal consult. 3- Recent L TMT amputation. wound looks in good condition, no signs of infection . - Podiatry to evaluate 4- h/o DM : SSI now , glipizide at dc 5- HTN: cont coreg dispo : possible dc tomorrow
[2017-07-07] MEDS: DOCUSATE SODIUM 100 MG CAPSULE (FP) PO PRN (17:10)
[2017-07-07] MEDS: oxyCODONE HCL 5 MG TABLET PO PRN (17:11)
[2017-07-07] MEDS: ATORVASTATIN CA 80 MG TABLET (FP) PO SCH (23:00)
[2017-07-08] MEDS: INSULIN SLIDING SCALE (NOVOLOG) 1 VIAL SQ SCH ×4 (06:33→21:31)
[2017-07-08] MEDS: HEPARIN NA (PORCINE) 5,000 UNITS/ML 1ML VIAL SQ SCH ×3 (06:40→21:31)
--- NOTE | 2017-07-08 07:40 | PN ---
Progress Note (short form) - Note Progress Note: Podiatry Consult: 57 year old M, DM, HTN, stroke, ESRD on HD; well known to me from wound healing center. S/p L foot transmetatarsal amputation x 2 weeks. Discharged to SNF, getting hyperbaric oxygen therapy. Patient got light headed in HBO Tx and fell. Feels better now. Afebrile, VSS. KEEGAN: L foot: dressing C/D/I with mild strikethrough. Sutures coapted with dehiscence laterally, no purulent drainage, mild serous drainage, no fluctuance , no periwound erythema, no ascending cellulitis, no signs of active infection. Minimal tenderness to palpation. Imp: 57 year old DM, PVD M s/p L foot transmetatarsal amputation 1. DSD + ZANE wrap L foot 2. Non-weightbearing L foot 3. Can leave dressing C/D/I. Do not need to change dressing. Pt to f/u with me in wound healing center this Monday, 07/11. 4. Podiatry stable for D/C. Amarilis Alcantara DPM
[2017-07-08 07:51] LABS: INR 1.22 (0.82-1.09); PROTHROMBIN TIME (PATIENT) 13.8 SEC (9.7-13.0)
[2017-07-08 07:57] LABS: BASO % 3.2 % (0-2.0); EOS % 13.8 % (0-4.5); HEMATOCRIT 23.3 % (35.4-49); HEMOGLOBIN 7.7 GM/dL (11.7-16.9); LYMPH % 24.8 % (8-40); MCH 29.9 pg (25.7-33.7); MEAN CELL VOLUME 90.7 fl (80-96); MEAN PLT VOLUME 9.1 fl (7.5-11.1); MONO % 10.4 % (3.8-10.2); NEUT % 47.8 % (42.8-82.8); PLATELET COUNT 232 K/MM3 (134-434); RBC 2.57 M/mm3 (4.00-5.60); RDW 15.5 % (11.9-15.9); WHITE BLOOD COUNT 5.2 K/mm3 (4.0-10.0)
[2017-07-08 08:03] LABS: BILIRUBIN,TOTAL 0.3 mg/dL (0.2-1.0); CALCIUM 8.2 mg/dL (8.5-10.1); CHLORIDE 107 mmol/L (98-107); POTASSIUM 3.9 mmol/L (3.5-5.1); SODIUM 141 mmol/L (136-145)
[2017-07-08 08:09] LABS: ALBUMIN 2.2 g/dl (3.4-5.0); ALK PHOS 51 U/L (45-117); ANION GAP 7 (8-16); BLOOD UREA NITROGEN 35 mg/dL (7-18); CO2 27 mmol/L (21-32); CREATININE 7.4 mg/dL (0.7-1.3); GLUCOSE,RANDOM 113 mg/dL (74-106); MAGNESIUM 2.3 mg/dL (1.8-2.4); PHOSPHOROUS 5.1 mg/dL (2.5-4.9); SGOT/AST 37 U/L (15-37); SGPT/ALT 23 U/L (12-78); TOT PROT 5.6 g/dl (6.4-8.2)
[2017-07-08] MEDS: CALCIUM ACETATE 667 MG CAPSULE (FP) PO SCH ×4 (09:00→17:20)
--- NOTE | 2017-07-08 10:18 | PN ---
Physical Exam: SUBJECTIVE: Patient seen and examined at bed side this morning. No complaints. Denies chest pain, sob, cough, palpitation, abdominal pain, nausea or vomiting. No acute overnight events. OBJECTIVE: Vital Signs Period Temp Pulse Resp BP Sys/Leon Pulse Ox Last 24 Hr 97.6 F-98.9 F 63-80 16-20 119-168/47-100 98-99 GENERAL: Morbidly obese patient, lying comfortably in bed, is awake, alert, and fully oriented, in no acute distress. HEAD: Normal with no signs of trauma. EYES: PERRL, extraocular movements intact, sclera anicteric, conjunctiva clear. No ptosis. ENT: Ears normal, nares patent, oropharynx clear without exudates, moist mucous membranes. NECK: Supple. LUNGS: B/L Breath sounds equal, clear to auscultation bilaterally, no wheezes, no crackles, no accessory muscle use. HEART: Regular rate and rhythm, S1, S2 without murmur, rub or gallop. ABDOMEN: Soft, nontender, nondistended, normoactive bowel sounds, no guarding, no rebound, no hepatosplenomegaly, no masses. EXTREMITIES: Chronic changes to b/l lower extremities. Left extremity-dressing changed this morning so didn't open it. NEUROLOGICAL: No facial droop. Normal speech, Power 5/5 strength, gait not observed. PSYCH: Normal mood, normal affect. SKIN: Warm, dry, normal turgor, no rashes or lesions noted Laboratory Results - last 24 hr 07/07/17 07/07/17 07/07/17 11:44 17:05 21:42 WBC RBC Hgb Hct MCV MCH MCHC RDW Plt Count MPV Neutrophils % Lymphocytes % Monocytes % Eosinophils % Basophils % PT with INR INR Sodium Potassium Chloride Carbon Dioxide Anion Gap BUN Creatinine Creat Clearance w eGFR POC Glucometer 119 131 217 Random Glucose Calcium Phosphorus Magnesium Total Bilirubin AST ALT Alkaline Phosphatase Total Protein Albumin 07/08/17 07/08/17 07/08/17 05:46 06:00 06:00 WBC 5.2 RBC 2.57 L Hgb 7.7 L Hct 23.3 L MCV 90.7 MCH 29.9 MCHC 33.0 RDW 15.5 Plt Count 232 MPV 9.1 Neutrophils % 47.8 D Lymphocytes % 24.8 D Monocytes % 10.4 H Eosinophils % 13.8 H Basophils % 3.2 H PT with INR 13.80 H INR 1.22 H Sodium Potassium Chloride Carbon Dioxide Anion Gap BUN Creatinine Creat Clearance w eGFR POC Glucometer 132 Random Glucose Calcium Phosphorus Magnesium Total Bilirubin AST ALT Alkaline Phosphatase Total Protein Albumin 07/08/17 06:00 WBC RBC Hgb Hct MCV MCH MCHC RDW Plt Count MPV Neutrophils % Lymphocytes % Monocytes % Eosinophils % Basophils % PT with INR INR Sodium 141 Potassium 3.9 Chloride 107 Carbon Dioxide 27 Anion Gap 7 L BUN 35 H Creatinine 7.4 H Creat Clearance w eGFR 7.65 POC Glucometer Random Glucose 113 H D Calcium 8.2 L Phosphorus 5.1 H Magnesium 2.3 Total Bilirubin 0.3 D AST 37 ALT 23 D Alkaline Phosphatase 51 Total Protein 5.6 L Albumin 2.2 L Active Medications Generic Name Dose Route Start Last Admin Trade Name Freq PRN Reason Stop Dose Admin Albuterol Sulfate 1 amp 07/06/17 22:05 Ventolin 0.083% Nebulizer Soln - NEB Q6H PRN SHORT OF BREATH/WHEEZING Aspirin 81 mg 07/07/17 10:00 07/07/17 09:12 Asa - PO 81 mg DAILY [facility] Administration Atorvastatin Calcium 80 mg 07/07/17 22:00 07/07/17 23:00 Lipitor - PO 80 mg HS [facility] Administration Calcium Acetate 1,334 mg 07/07/17 08:00 07/07/17 17:10 Phoslo - PO 1,334 mg TIDCM [facility] Administration Carvedilol 12.5 mg 07/07/17 10:00 07/07/17 23:00 Coreg - PO 12.5 mg BID [facility] Administration Cholecalciferol 2,000 unit 07/07/17 10:00 07/07/17 09:12 Vitamin D3 - PO 2,000 unit DAILY [facility] Administration Docusate Sodium 100 mg 07/06/17 22:03 07/07/17 17:10 Colace - PO 100 mg TID PRN Administration CONSTIPATION Epoetin Lawrence 7,000 unit 07/08/17 15:24 Epogen - IVPUSH 07/08/17 15:25 ONCE ONE Ferrous Sulfate 325 mg 07/07/17 10:00 07/07/17 09:11 Feosol - PO 325 mg DAILY [facility] Administration Heparin Sodium (Porcine) 5,000 unit 07/06/17 22:15 07/08/17 06:40 Heparin - SQ 5,000 unit TID [facility] Administration Sodium Chloride 250 mls @ 3,000 mls/hr 07/07/17 15:24 Normal Saline - IV 07/08/17 15:24 PRN PRN Hypotension during Dialysis Insulin Aspart 1 vial 07/06/17 22:00 07/08/17 06:33 Novolog Vial Sliding Scale - SQ Not Given ACHS [facility] Protocol Oxycodone HCl 10 mg 07/06/17 22:03 07/07/17 17:11 Roxicodone - PO 10 mg Q6H PRN Administration PAIN LEVEL 6-10 Pantoprazole Sodium 20 mg 07/07/17 10:00 07/07/17 09:12 Protonix - PO 20 mg DAILY [facility] Administration Polyethylene Glycol 17 gm 07/07/17 10:00 07/07/17 09:13 Miralax (For Daily Use) - PO Not Given DAILY [facility] Pregabalin 100 mg 07/07/17 10:00 07/07/17 09:10 Lyrica - PO 100 mg DAILY [facility] Administration ASSESSMENT/PLAN: Patient is a 57 year old Male w PMH of ESRD (on HD TTS), NIDDM, PVD, OM, CVAx2 ( w/LLE residual weakness), DM, HTN, who was sent to ER from [facility] due to syncopal episode # Syncope, likely secondary to orthostatic hypotension Orthostatic vitals today was normal Fall risk precautions. Had few runs of V-tach in tele. Continuous cardiac monitoring to r/o arrythmia MRI brain unable to perform due to morbid obesity # Diabetic foot ulcer s/p TMA on 06/27 Podiatry consult appreciated, can be discharged from their stand point, f/up on 07/11 at the wound clinic Pain control Will need PT and rehab. # ESRD on HD TTS Dialysis was done today, tolerated well. As per Dr. Win, continue torsemide 80 on non HD days # DM Finger stick glucose monitoring ISS Watch for hypoglycemic episodes # HTN: controlled Dose changed from 12.5 mg of cavedilol BID to 6.25mg BID Awaiting cardiology input then can be discharged # GERD: continue omeprazole # Constipation continue Miralax and Colace. # HLD Continue Atorvaststin 80mg # FEN Not on IV fluids, can tolerate PO. Electrolytes WNL Diabetic/renal diet # Prophylaxis For DVT: On Heparin 5000 IU sq TID For GI: On Omeprazole # Code Status: Full Code # Dispo: Awaiting cardiology input then can be discharged. Illness, Investigation and Plan of care explained to the patient. He verbalized understanding. Case discussed with Dr. Henriquez. Visit type - Emergency Visit Emergency Visit: Yes ED Registration Date: 07/06/17 Care time: The patient presented to the Emergency Department on the above date and was hospitalized for further evaluation of their emergent condition. - New Patient This patient is new to me today: Yes Date on this admission: 07/08/17 - Critical Care Critical Care patient: No - Discharge Referral Referred to [facility] Med P.C.: No
[2017-07-08] MEDS: CHOLECALCIFEROL (VITAMIN D3) 1,000 UNIT TABLET (FP) PO SCH (10:46)
[2017-07-08] MEDS: PANTOPRAZOLE 20 MG TABLET (FP) PO SCH (10:46)
[2017-07-08] MEDS: ASPIRIN 81 MG CHEWABLE TABLETS PO SCH (10:46)
[2017-07-08] MEDS: PREGABALIN 50 MG CAPSULE PO SCH (10:46)
[2017-07-08] MEDS: FERROUS SO4 325 MG TABLET (FP) PO SCH (10:46)
[2017-07-08] MEDS: DOCUSATE SODIUM 100 MG CAPSULE (FP) PO PRN (10:49)
[2017-07-08] MEDS: POLYETHYLENE GLYCOL 3350 119 GM BTL PO SCH (10:51)
[2017-07-08] MEDS: CARVEDILOL 12.5 MG TABLET (FP) PO SCH (11:53)
--- NOTE | 2017-07-08 12:19 | PN ---
Teaching Attending Note Name of Resident: Diane Brasher ATTENDING PHYSICIAN STATEMENT I saw and evaluated the patient. I reviewed the resident's note and discussed the case with the resident. I agree with the resident's findings and plan as documented. SUBJECTIVE: no pain, no SOB, no complaints today OBJECTIVE: NAD, MMM CV: RRR, no MRG Lungs: CTAB Ext: thick skin with chronic changes seen on legs. L foot with a clean dressing that was not removed . ASSESSMENT AND PLAN: 56 y/o man with h/o DM , ESRD, on HD TTS, PVD, OM, CVA, morbid obesity s/p gastric sleeve , HTN, anemia, HLP, recent admission for L transmetatarsal amputation due to infection and ischemia . He presented this time after a syncopal episode . 1- Syncope: likely due to orthostatic hypotension complete w/u was done last admission. - repeat orthostatic VS today - decrease coreg to 6.25 form 12.5 BID - can't dc torsemide due to risl of volume overload between HD treatments - tele with short episode of VTach - card to eval 2- h/o ESRD. on HD TTS. - HD today. -cont torsemide on non HD days 3- Recent L TMT amputation. - keep dressing intact . - f/u with dr. Alcantara on 07/11 for further instruction 4- h/o DM : SSI now , glipizide at dc 5- HTN: cont and decrease coreg dispo: possible dc this afternoon if no further cardiac instructions
[2017-07-08] MEDS ORDERED: EPOETIN ALFA 3,000 UNIT, EPOETIN ALFA 4,000 UNIT IVPUSH ONE (12:30)
[2017-07-08] MEDS ORDERED: EPOETIN ALFA 2,000 UNIT/1 ML VIAL IVPUSH ONE (15:24)
--- NOTE | 2017-07-08 16:52 | CON.CARD ---
Consult Consult Specialty:: Cardiology Consult - History of Present Illness Chief Complaint: Syncope History of Present Illness: This is a 56 year old male with a PMH of ESRD (on HD TTS), NIDDM, PVD, OM, CVAx2 (w/LLE residual weakness), s/p L foot transmetatarsal amputation, DM, and HTN. He presented from the rehap center where he had an episode of syncope after completing his hyperbaric treatment. He ended up on the floor of the bathroom but does not rememeber hitting the floor. He did not sustain any injuries. No tounge bitting or loss ofn bowel or bladder function. Presently he is at his baseline. A 5 beat run of NSVT was noted. EKG shows sinus rhythm at 61 BPM with right axis deviation, low voltage, and NSSTTW changes. 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 Cardio/Vascular: Yes: HTN, Hyperlipdemia Pulmonary: Yes: Sleep Apnea Gastrointestinal: Yes: GERD, Other (obesity) Renal/: Yes: Renal Failure, Renal Inusuff, Hemodialysis, Other Endocrine: Yes: Diabetes Mellitus - Past Surgical History Past Surgical History: Yes: AV Fistula/Graft - Alcohol/Substance Use Hx Alcohol Use: No - Smoking History Smoking history: Never smoked Have you smoked in the past 12 months: No Aproximately how many cigarettes per day: 0 - Social History ADL: Independent History of Recent Travel: No Home Medications - Allergies Allergies/Adverse Reactions: Allergies Allergy/AdvReac Type Severity Reaction Status Date / Time fish derived Allergy Severe Hives Verified 07/06/17 20:17 Shellfish Allergy Severe Verified 07/06/17 20:17 sulfamethoxazole Allergy Severe Swelling Verified 07/06/17 20:17 [From Bactrim DS] trimethoprim Allergy Severe Swelling Verified 07/06/17 20:17 [From Bactrim DS] - Home Medications Home Medications: Ambulatory Orders Omeprazole [Prilosec (RX)] 20 mg PO DAILY 08/13/14 Atorvastatin Ca [Lipitor] 80 mg PO HS 05/24/16 Carvedilol 12.5 mg PO BID 05/24/16 Ferrous Sulfate [Feosol] 1 tab PO DAILY 08/02/16 Albuterol Sulfate [Proair Respiclick] 90 mcg IH BID 11/13/16 Cholecalciferol (Vitamin D3) [Vitamin D3] 2,000 unit PO DAILY 11/13/16 Aspirin [ASA -] 81 mg PO DAILY #30 tab.chew 11/15/16 Glipizide 5 mg PO BID 04/19/17 Pregabalin [Lyrica -] 100 mg PO DAILY MDD 50 mg 04/19/17 Calcium Acetate [Phoslo -] 1,334 mg PO TIDCM capsule 04/27/17 Collagenase Clostridium Hist. [Santyl -] 1 applic TP DAILY #1 tube 04/27/17 Docusate Sodium [Colace -] 100 mg PO TID PRN #90 capsule 04/27/17 Polyethylene Glycol 3350 [Miralax 119 gm Btl -] 17 gm PO DAILY bottle 04/27/17 Torsemide 80 mg PO DAILY #120 tablet 04/27/17 Lorazepam [Ativan] 2 mg PO DAILY #30 tablet MDD 1 06/01/17 oxyCODONE HCL [Roxicodone -] 10 mg PO Q4H PRN #18 tablet MDD 4 07/03/17 Family Disease History - Family Disease History Family Disease History: Heart Disease: Father ( of SANON at 43 ), CA: Mother ( Breast) Review of Systems Findings/Remarks: As per HPI Vital Signs: Vital Signs Temperature 98.8 F 07/08/17 15:00 Pulse Rate 74 07/08/17 15:00 Respiratory Rate 18 07/08/17 15:00 Blood Pressure 152/78 07/08/17 15:00 O2 Sat by Pulse Oximetry (%) 97 07/08/17 12:00 Constitutional: Yes: Obese HENT: Yes: WNL Neck: Yes: WNL Respiratory: Yes: CTA Bilaterally Gastrointestinal: Yes: Normal Bowel Sounds, Soft Cardiovascular: Yes: Regular Rate and Rhythm Heart Sounds: Yes: S1, S2 (No MRHG) Extremities: Yes: Other (Chronic venous stasis changes with brawny lymph edema. Left TMP dressing intact) Neurological: Yes: Alert, Oriented (Left sided weakness) - Other Data Labs, Other Data: CBC, BMP 07/08/17 06:00 07/08/17 06:00 INR, PTT INR 1.22 (0.82-1.09) H 07/08/17 06:00 Assessment/Plan Syncope: Etiology unclear - May be vasovagal or othostatic hypotension. It also may be related to his anemia. Recent echocardiogram, no need to repeat. -Continue Coreg 6.25 mg PO BID -Consider transfusing if HCT continues to drop, HCT now 23.3% -Check orthostatic BP's -Keep monitored on telem for arrhymias -Continue secondary prevention with ASA/Statin Will follow with you.
--- NOTE | 2017-07-08 17:42 | PN ---
Progress Note (short form) - Note Progress Note: Problems- 1. ESRD 2. anemia 3. HTN 4. morbid obesity 5. CVA 6. hyperlipidemia 7. proteinuria - nephrotic 8. PVD 9. lower ext gangrene 10. syncope Current Medications Albuterol Sulfate (Ventolin 0.083% Nebulizer Soln -) 1 amp NEB Q6H PRN PRN Reason: SHORT OF BREATH/WHEEZING Aspirin (Asa -) 81 mg PO DAILY [facility] Last Admin: 07/08/17 10:46 Dose: 81 mg Atorvastatin Calcium (Lipitor -) 80 mg PO HS [facility] Last Admin: 07/07/17 23:00 Dose: 80 mg Calcium Acetate (Phoslo -) 1,334 mg PO TIDCM [facility] Last Admin: 07/08/17 17:20 Dose: 1,334 mg Carvedilol (Coreg -) 6.25 mg PO BID [facility] Cholecalciferol (Vitamin D3 -) 2,000 unit PO DAILY [facility] Last Admin: 07/08/17 10:46 Dose: 2,000 unit Docusate Sodium (Colace -) 100 mg PO TID PRN PRN Reason: CONSTIPATION Last Admin: 07/08/17 10:49 Dose: 100 mg Ferrous Sulfate (Feosol -) 325 mg PO DAILY [facility] Last Admin: 07/08/17 10:46 Dose: 325 mg Heparin Sodium (Porcine) (Heparin -) 5,000 unit SQ TID [facility] Last Admin: 07/08/17 14:38 Dose: Not Given Insulin Aspart (Novolog Vial Sliding Scale -) 1 vial SQ ACHS [facility] PRN Reason: Protocol Last Admin: 07/08/17 17:20 Dose: Not Given Oxycodone HCl (Roxicodone -) 10 mg PO Q6H PRN PRN Reason: PAIN LEVEL 6-10 Last Admin: 07/07/17 17:11 Dose: 10 mg Pantoprazole Sodium (Protonix -) 20 mg PO DAILY [facility] Last Admin: 07/08/17 10:46 Dose: 20 mg Polyethylene Glycol (Miralax (For Daily Use) -) 17 gm PO DAILY [facility] Last Admin: 07/08/17 10:51 Dose: Not Given Pregabalin (Lyrica -) 100 mg PO DAILY [facility] Last Admin: 07/08/17 10:46 Dose: 100 mg Last Vital Signs Temp Pulse Resp BP Pulse Ox 98.8 F 74 18 152/78 97 07/08/17 15:00 07/08/17 15:00 07/08/17 15:00 07/08/17 15:00 07/08/17 12:00 seen while on dialysis no problem during tx hemodynamically stable CBC, BMP 07/08/17 06:00 07/08/17 06:00 IMP- as mago stable on hd syncope being eval very anemic ?with symptoms Plan - being monitored on tele
[2017-07-08] MEDS: ATORVASTATIN CA 80 MG TABLET (FP) PO SCH (21:31)
[2017-07-08] MEDS: oxyCODONE HCL 5 MG TABLET PO PRN (21:32)
[2017-07-08] MEDS: CARVEDILOL 6.25 MG TABLET (FP) PO SCH (21:33)
[2017-07-09] MEDS: HEPARIN NA (PORCINE) 5,000 UNITS/ML 1ML VIAL SQ SCH ×3 (06:41→21:55)
[2017-07-09] MEDS: INSULIN SLIDING SCALE (NOVOLOG) 1 VIAL SQ SCH ×4 (06:41→21:56)
[2017-07-09] MEDS ORDERED: TORSEMIDE 20 MG TABLET (FP) PO SCH ×2 (08:00→10:00)
[2017-07-09 08:14] LABS: HEMATOCRIT 24.1 % (35.4-49); MCH 29.9 pg (25.7-33.7); MCHC 33.4 g/dl (32.0-35.9); MEAN CELL VOLUME 89.5 fl (80-96); MEAN PLT VOLUME 8.8 fl (7.5-11.1); PLATELET COUNT 224 K/MM3 (134-434); RBC 2.69 M/mm3 (4.00-5.60); RDW 15.3 % (11.9-15.9); WHITE BLOOD COUNT 4.5 K/mm3 (4.0-10.0)
[2017-07-09 08:28] LABS: ANION GAP 2 (8-16); BLOOD UREA NITROGEN 21 mg/dL (7-18); CALCIUM 7.8 mg/dL (8.5-10.1); CHLORIDE 105 mmol/L (98-107); CO2 34 mmol/L (21-32); CREATININE 5.2 mg/dL (0.7-1.3); GLUCOSE,RANDOM 99 mg/dL (74-106); POTASSIUM 3.5 mmol/L (3.5-5.1); SODIUM 141 mmol/L (136-145)
[2017-07-09] MEDS: CALCIUM ACETATE 667 MG CAPSULE (FP) PO SCH ×3 (08:55→17:26)
[2017-07-09] MEDS: PANTOPRAZOLE 20 MG TABLET (FP) PO SCH (08:59)
[2017-07-09] MEDS: CHOLECALCIFEROL (VITAMIN D3) 1,000 UNIT TABLET (FP) PO SCH (08:59)
[2017-07-09] MEDS: FERROUS SO4 325 MG TABLET (FP) PO SCH (08:59)
[2017-07-09] MEDS: CARVEDILOL 6.25 MG TABLET (FP) PO SCH ×2 (08:59→21:54)
[2017-07-09] MEDS: PREGABALIN 50 MG CAPSULE PO SCH (09:00)
[2017-07-09] MEDS: POLYETHYLENE GLYCOL 3350 119 GM BTL PO SCH (09:00)
[2017-07-09] MEDS: ASPIRIN 81 MG CHEWABLE TABLETS PO SCH (09:00)
--- NOTE | 2017-07-09 14:09 | PN ---
Progress Note (short form) - Note Progress Note: Subjective: No fever or chills. felt very light headed in bathroom today when he got up form toilet seat . no fever or chills or palpitations Objective: Vital Signs: Last Vital Signs Temp Pulse Resp BP Pulse Ox 98.0 F 70 18 125/68 97 07/09/17 13:58 07/09/17 14:00 07/09/17 13:58 07/09/17 14:00 07/09/17 10:00 Laboratory Results - last 24 hr 07/08/17 07/08/17 07/09/17 17:17 21:30 06:40 WBC RBC Hgb Hct MCV MCH MCHC RDW Plt Count MPV Sodium Potassium Chloride Carbon Dioxide Anion Gap BUN Creatinine POC Glucometer 172 222 100 Random Glucose Calcium 07/09/17 07/09/17 07/09/17 07:40 07:40 11:28 WBC 4.5 RBC 2.69 L Hgb 8.0 L Hct 24.1 L MCV 89.5 MCH 29.9 MCHC 33.4 RDW 15.3 Plt Count 224 MPV 8.8 Sodium 141 Potassium 3.5 Chloride 105 Carbon Dioxide 34 H D Anion Gap 2 L BUN 21 H D Creatinine 5.2 H D POC Glucometer 187 Random Glucose 99 Calcium 7.8 L Physical Exam: NAD, MMM , felt light headedness when sat up in bed CV: RRR, no MRG Lungs: CTAB Ext: thick skin with chronic changes seen on legs. L foot with a clean dressing that was not removed . ASSESSMENT AND PLAN: 56 y/o man with h/o DM , ESRD, on HD TTS, PVD, OM, CVA, morbid obesity s/p gastric sleeve , HTN, anemia, HLP, recent admission for L transmetatarsal amputation due to infection and ischemia . He presented this time after a syncopal episode . 1- Syncope: likely due to orthostatic hypotension. cont to be very light headed with changing position. complete w/u was done last admission including an EEG - repeat orthostatic VS today - cont decreased coreg 6.25 - tele with no events last night ( VTAch the day before ) - although Hb is not too low, it might be contributing to his sx. will give one unit of RBC and check K after that - seen by card 2- h/o ESRD. on HD TTS. -cont torsemide on non HD days 3- Recent L TMT amputation. - keep dressing intact . - f/u with dr. Alcantara on 07/11 for further instruction 4- h/o DM : SSI now , glipizide at dc 5- HTN: cont decreased dose of coreg. will take slightly elevated BP in setting of orthostatic hypotension dispo: will hold dc today as he is still severely symptomatic Visit type - Emergency Visit Emergency Visit: Yes ED Registration Date: 07/06/17 Care time: The patient presented to the Emergency Department on the above date and was hospitalized for further evaluation of their emergent condition. - New Patient This patient is new to me today: No - Critical Care Critical Care patient: No
--- NOTE | 2017-07-09 14:34 | EKG ---
Test Reason : Blood Pressure : / mmHG Vent. Rate : 075 BPM Atrial Rate : 075 BPM P-R Int : 196 ms QRS Dur : 102 ms QT Int : 388 ms P-R-T Axes : 036 -01 040 degrees QTc Int : 433 ms POOR DATA QUALITY, INTERPRETATION MAY BE ADVERSELY AFFECTED SINUS RHYTHM WITH OCCASIONAL PREMATURE VENTRICULAR COMPLEXES OTHERWISE NORMAL ECG WHEN COMPARED WITH ECG OF 10-JUN-2017 12:33, PREMATURE VENTRICULAR COMPLEXES ARE NOW PRESENT PREMATURE ATRIAL COMPLEXES ARE NO LONGER PRESENT QRS AXIS SHIFTED RIGHT Confirmed by MD Anish, Enrique ([id number]) on 07/09/2017 2:33:36 PM Referred By: Confirmed By:Enrique Oconnell MD
--- NOTE | 2017-07-09 16:46 | PN ---
Progress Note (short form) - Note Progress Note: Problems- 1. ESRD 2. anemia 3. HTN 4. morbid obesity 5. CVA 6. hyperlipidemia 7. proteinuria - nephrotic 8. PVD 9. lower ext gangrene 10. syncope alert in nad pale skin and lips s1s2 lower ext edema CBC, BMP 07/09/17 07:40 07/09/17 07:40 CBC, BMP 07/08/17 06:00 07/08/17 06:00 IMP- orthostatic hypotension syncope being eval - orthostatism? very anemic ?with symptoms next hd is on monday Plan - agree with transfusion to r/o anemia as a factor in orthostatic hypotension check bmp with cbc
[2017-07-09] MEDS: ATORVASTATIN CA 80 MG TABLET (FP) PO SCH (21:54)
[2017-07-09] MEDS: oxyCODONE HCL 5 MG TABLET PO PRN (21:54)
[2017-07-09 21:59] LABS: HEMATOCRIT 27.5 % (35.4-49); HEMOGLOBIN 9.3 GM/dL (11.7-16.9); MCHC 33.7 g/dl (32.0-35.9); MEAN CELL VOLUME 88.8 fl (80-96); MEAN PLT VOLUME 8.9 fl (7.5-11.1); PLATELET COUNT 250 K/MM3 (134-434); RDW 15.9 % (11.9-15.9); WHITE BLOOD COUNT 5.1 K/mm3 (4.0-10.0)
[2017-07-10] MEDS: HEPARIN NA (PORCINE) 5,000 UNITS/ML 1ML VIAL SQ SCH ×2 (06:03→14:27)
[2017-07-10] MEDS: INSULIN SLIDING SCALE (NOVOLOG) 1 VIAL SQ SCH ×2 (06:03→11:37)
[2017-07-10 07:52] LABS: HEMOGLOBIN 8.5 GM/dL (11.7-16.9); MCH 29.8 pg (25.7-33.7); MCHC 33.8 g/dl (32.0-35.9); MEAN CELL VOLUME 87.9 fl (80-96); MEAN PLT VOLUME 9.1 fl (7.5-11.1); PLATELET COUNT 222 K/MM3 (134-434); RBC 2.85 M/mm3 (4.00-5.60); RDW 15.9 % (11.9-15.9); WHITE BLOOD COUNT 5.3 K/mm3 (4.0-10.0)
[2017-07-10] MEDS ORDERED: TORSEMIDE 20 MG TABLET (FP) PO SCH ×2 (08:00→13:59)
[2017-07-10 08:29] LABS: ANION GAP 8 (8-16); BLOOD UREA NITROGEN 30 mg/dL (7-18); CALCIUM 8.2 mg/dL (8.5-10.1); CHLORIDE 103 mmol/L (98-107); CO2 30 mmol/L (21-32); CREATININE 6.7 mg/dL (0.7-1.3); GLUCOSE,RANDOM 97 mg/dL (74-106); POTASSIUM 3.7 mmol/L (3.5-5.1); SODIUM 141 mmol/L (136-145)
[2017-07-10] MEDS: FERROUS SO4 325 MG TABLET (FP) PO SCH (09:40)
[2017-07-10] MEDS: CARVEDILOL 6.25 MG TABLET (FP) PO SCH (09:40)
[2017-07-10] MEDS: PANTOPRAZOLE 20 MG TABLET (FP) PO SCH (09:40)
[2017-07-10] MEDS: CHOLECALCIFEROL (VITAMIN D3) 1,000 UNIT TABLET (FP) PO SCH (09:40)
[2017-07-10] MEDS: CALCIUM ACETATE 667 MG CAPSULE (FP) PO SCH ×2 (09:40→11:37)
[2017-07-10] MEDS: ASPIRIN 81 MG CHEWABLE TABLETS PO SCH (09:40)
[2017-07-10] MEDS: PREGABALIN 50 MG CAPSULE PO SCH (09:40)
[2017-07-10] MEDS: POLYETHYLENE GLYCOL 3350 119 GM BTL PO SCH (09:44)
--- NOTE | 2017-07-10 12:50 | MSN ---
Progress Note (SOAP) - Subjective Chief Complaint: Orthrostatic hypotension w/ syncope History of Present Illness: Patient is a 57 year old male with pertinent past medical hx of ESRD, NIDDM, PVD , htn and CVA, that is s/p left transmetatarsal amputation (06/27/17) who presented on 07/06/17 for syncopal episode while waiting for hyperbaric treatment. The patient stated that he received dialysis earlier in the day and had eaten only a small lunch before feeling faint while going to the bathroom. The patient states that he cannot remember anything from the event and lasts remembers waking up during his CT later in the day. The patient has had a previous episode of syncope in late june, in which a diabetic foot ulcer was found and treated with metatarsal amputation. The patient was admitted for evaluation of his most recent syncopal episode on 07/06/17 which is believed to be due to a recurrence of orthostatic hypotension. The patient was set to be discharge on 07/09/17 but was delayed due to symptoms of dizziness and presyncope while walking to the bathroom. The patient was given 1 unit of PRBCs and kept overnight. Today the patient claims to be feeling better. The patient states that he was sitting up in bed this morning with only minor dizziness that lasted no longer than 15 seconds. The patient also claims to have been able to stand this morning to check his weight without any symptoms. monitoring coordinator showed nonsustained PVCs and PACs over night with no other arrhythmias. Patient is not complaining of any new fatigue, dizziness, or weakness. Reviews of symptoms was negative for chest pain, SOB, fever, or chills. - Current Medications Current Medications: Active Medications Albuterol Sulfate (Ventolin 0.083% Nebulizer Soln -) 1 amp NEB Q6H PRN PRN Reason: SHORT OF BREATH/WHEEZING Last Admin: 07/10/17 07:35 Dose: 1 amp Aspirin (Asa -) 81 mg PO DAILY [facility] Last Admin: 07/10/17 09:40 Dose: 81 mg Atorvastatin Calcium (Lipitor -) 80 mg PO HS [facility] Last Admin: 07/09/17 21:54 Dose: 80 mg Calcium Acetate (Phoslo -) 1,334 mg PO TIDCM [facility] Last Admin: 07/10/17 11:37 Dose: 1,334 mg Carvedilol (Coreg -) 6.25 mg PO BID [facility] Last Admin: 07/10/17 09:40 Dose: 6.25 mg Cholecalciferol (Vitamin D3 -) 2,000 unit PO DAILY [facility] Last Admin: 07/10/17 09:40 Dose: 2,000 unit Docusate Sodium (Colace -) 100 mg PO TID PRN PRN Reason: CONSTIPATION Last Admin: 07/08/17 10:49 Dose: 100 mg Ferrous Sulfate (Feosol -) 325 mg PO DAILY [facility] Last Admin: 07/10/17 09:40 Dose: 325 mg Heparin Sodium (Porcine) (Heparin -) 5,000 unit SQ TID [facility] Last Admin: 07/10/17 06:03 Dose: 5,000 unit Insulin Aspart (Novolog Vial Sliding Scale -) 1 vial SQ ACHS [facility] PRN Reason: Protocol Last Admin: 07/10/17 11:37 Dose: 2 units Pantoprazole Sodium (Protonix -) 20 mg PO DAILY [facility] Last Admin: 07/10/17 09:40 Dose: 20 mg Polyethylene Glycol (Miralax (For Daily Use) -) 17 gm PO DAILY [facility] Last Admin: 07/10/17 09:44 Dose: Not Given Pregabalin (Lyrica -) 100 mg PO DAILY [facility] Last Admin: 07/10/17 09:40 Dose: 100 mg Torsemide (Demadex -) 80 mg PO PETERS [facility] Last Admin: 07/09/17 14:44 Dose: Not Given Torsemide (Demadex -) 80 mg PO MOWEFR [facility] Last Admin: 07/10/17 09:40 Dose: 80 mg - Objective Vital Signs: Vital Signs Temperature 98.1 F 07/10/17 06:00 Pulse Rate 75 07/10/17 10:30 Respiratory Rate 18 07/10/17 06:00 Blood Pressure 151/63 07/10/17 10:30 O2 Sat by Pulse Oximetry (%) 98 07/10/17 06:00 Constitutional: Yes: Well Nourished, No Distress, Calm Eyes: Yes: Conjunctiva Clear, EOM Intact. No: Sclera Icterus HENT: Yes: Atraumatic, Normocephalic. No: Pharyngeal Erythema, Thrush Cardiovascular: Yes: Regular Rate and Rhythm (1/6 systolic murmur ) Respiratory: Yes: Regular, CTA Bilaterally Gastrointestinal: Yes: Normal Bowel Sounds, Abdomen, Obese, Hernia (tenderness to palpation lateral to the umbilicus on the left with palpation of hernial mass ) Musculoskeletal: No: Muscle Weakness Peripheral Pulses: Left Doralis Pedis: 0, Right Dorsalis Pedis: 0 Edema: LLE: 1+, RLE: 1+ Wound/Incision: Yes: Other (dress showed draining wound postive for serosangious fluid ) Neurological: Yes: Cran Nerves II-XII Intact, Tremors (bilateral resting tremor with, not made worse by movement ). No: Facial Droop ...Motor Strength: Yes: LUE (4/5), LLE (4/5) Psychiatric: Yes: Alert, Oriented Labs Lab Results: CBC, BMP 07/10/17 07:20 07/10/17 07:20 Problem List - Problems (1) Orthostatic hypotension Code(s): I95.1 - ORTHOSTATIC HYPOTENSION (2) Syncope and collapse Code(s): R55 - SYNCOPE AND COLLAPSE (3) Anemia Code(s): D64.9 - ANEMIA, UNSPECIFIED Qualifiers: Anemia type: unspecified type Qualified Code(s): D64.9 - Anemia, unspecified (4) ESRD (end stage renal disease) Code(s): N18.6 - END STAGE RENAL DISEASE (5) Gangrene of toe of left foot Code(s): I96 - GANGRENE, NOT ELSEWHERE CLASSIFIED (6) Chronic kidney disease Code(s): N18.9 - CHRONIC KIDNEY DISEASE, UNSPECIFIED Qualifiers: Chronic kidney disease stage: unspecified stage Qualified Code(s): N18.9 - Chronic kidney disease, unspecified (7) DM type 2, uncontrolled, with renal complications Code(s): E11.29 - TYPE 2 DIABETES MELLITUS W OTH DIABETIC KIDNEY COMPLICATION; E11.65 - TYPE 2 DIABETES MELLITUS WITH HYPERGLYCEMIA Qualifiers: Diabetes mellitus complication detail: with chronic kidney disease (8) HLD (hyperlipidemia) Code(s): E78.5 - HYPERLIPIDEMIA, UNSPECIFIED (9) HTN (hypertension) Code(s): I10 - ESSENTIAL (PRIMARY) HYPERTENSION Assessment/Plan Assessment/ Plan: Patient is a 57 year old male with pertinent past medical hx of ESRD, NIDDM, PVD, htn, and CVA, that is s/p left trasnmetatarsal amputation that is being treated for syncopal episode secondary to orthostatic hypertension. # Syncopal episode - likely secondary to othrostatic hypotension - orthostatic vital signs previously showed a a difference of greater than 20 mmhg systolic pressure difference from standing to supine - transfused 1 PRBC yesterday due to dizziness symptoms and persistence of patients anemia - hbg today is 8.5 which had shown to be at the patients baseline - Patient has had resolution of symptoms today and will be D/C to [facility] rehab with education on orthostatic hypostasis # ESRD - Continue to hold torsemide in hospital because may increase orthostasis - will follow up with rehab center to ensure proper dosing of torsemide in the future. (used on off days not daily) - As per Dr. Win continue dialysis tomorrow as outpatient - will start epogen on discharge as per Dr. Win recommendation # Left foot transmetatarsal surgical site - continue dressing changes and wound care at inpatient rehab - follow with Dr. Alcantara tomorrow to continue current post op course # NIDDM - stop insulin sliding scale - discharge patient on glipizide on pre-hopital dose # HTN - conitnue Coreg 6.25mg BID - consider midodrine if orthostatic hypotension persists DISP- - Patient will be discharged back to [facility] in patient rehabilitation center
--- NOTE | 2017-07-10 13:19 | PN ---
Teaching Attending Note Name of Resident: Williams Nieto ATTENDING PHYSICIAN STATEMENT I saw and evaluated the patient. I reviewed the resident's note and discussed the case with the resident. I agree with the resident's findings and plan as documented. SUBJECTIVE: No fever or chills. felt a little light headed from flat to sitting but it felt better than before PE ; CV: RRR, no MRG Lungs: CTAB Ext: thick skin with chronic changes seen on legs. L foot with a clean dressing that was not removed . ASSESSMENT AND PLAN: 56 y/o man with h/o DM , ESRD, on HD TTS, PVD, OM, CVA, morbid obesity s/p gastric sleeve , HTN, anemia, HLP, recent admission for L transmetatarsal amputation due to infection and ischemia . He presented this time after a syncopal episode . 1- Syncope: likely due to orthostatic hypotension. blood transfusion increased his Hb but did not completely eliminate sx - repeat orthostatic VS today noted - cont decreased coreg 6.25 - tele with no events last night - if he cont to have orthostatic hypotension then midodrine might need to be considered 2- H/o ESRD. on HD TTS. -cont torsemide on non HD days 3- Recent L TMT amputation. - keep dressing intact. - f/u with dr. Alcantara on 07/11 for further instruction 4- h/o DM: glipizide at dc 5- HTN: cont decreased dose of coreg. Dc back to rehab today
--- NOTE | 2017-07-10 13:48 | PN ---
Progress Note, Physician History of Present Illness: Pt seen and examined at bedside. He is awake and alert. He is going to rehab today. - Current Medication List Current Medications: Active Medications Albuterol Sulfate (Ventolin 0.083% Nebulizer Soln -) 1 amp NEB Q6H PRN PRN Reason: SHORT OF BREATH/WHEEZING Last Admin: 07/10/17 07:35 Dose: 1 amp Aspirin (Asa -) 81 mg PO DAILY [facility] Last Admin: 07/10/17 09:40 Dose: 81 mg Atorvastatin Calcium (Lipitor -) 80 mg PO HS [facility] Last Admin: 07/09/17 21:54 Dose: 80 mg Calcium Acetate (Phoslo -) 1,334 mg PO TIDCM [facility] Last Admin: 07/10/17 11:37 Dose: 1,334 mg Carvedilol (Coreg -) 6.25 mg PO BID [facility] Last Admin: 07/10/17 09:40 Dose: 6.25 mg Cholecalciferol (Vitamin D3 -) 2,000 unit PO DAILY [facility] Last Admin: 07/10/17 09:40 Dose: 2,000 unit Docusate Sodium (Colace -) 100 mg PO TID PRN PRN Reason: CONSTIPATION Last Admin: 07/08/17 10:49 Dose: 100 mg Ferrous Sulfate (Feosol -) 325 mg PO DAILY [facility] Last Admin: 07/10/17 09:40 Dose: 325 mg Heparin Sodium (Porcine) (Heparin -) 5,000 unit SQ TID [facility] Last Admin: 07/10/17 06:03 Dose: 5,000 unit Insulin Aspart (Novolog Vial Sliding Scale -) 1 vial SQ ACHS [facility] PRN Reason: Protocol Last Admin: 07/10/17 11:37 Dose: 2 units Pantoprazole Sodium (Protonix -) 20 mg PO DAILY [facility] Last Admin: 07/10/17 09:40 Dose: 20 mg Polyethylene Glycol (Miralax (For Daily Use) -) 17 gm PO DAILY [facility] Last Admin: 07/10/17 09:44 Dose: Not Given Pregabalin (Lyrica -) 100 mg PO DAILY [facility] Last Admin: 07/10/17 09:40 Dose: 100 mg Torsemide (Demadex -) 80 mg PO PETERS [facility] Last Admin: 07/09/17 14:44 Dose: Not Given Torsemide (Demadex -) 80 mg PO MOWEFR [facility] Last Admin: 07/10/17 09:40 Dose: 80 mg - Objective Vital Signs: Vital Signs Temperature 98.1 F 07/10/17 06:00 Pulse Rate 75 07/10/17 10:30 Respiratory Rate 18 07/10/17 06:00 Blood Pressure 151/63 07/10/17 10:30 O2 Sat by Pulse Oximetry (%) 98 07/10/17 06:00 Constitutional: Yes: Calm Eyes: Yes: Conjunctiva Clear HENT: Yes: Atraumatic Neck: Yes: Supple Cardiovascular: Yes: S1, S2 Respiratory: Yes: CTA Bilaterally Gastrointestinal: Yes: Soft, Abdomen, Obese Genitourinary: Yes: WNL Musculoskeletal: Yes: WNL Edema: Yes Edema: LLE: 1+, RLE: 1+ Wound/Incision: Yes: Dressing Dry and Intact Neurological: Yes: Oriented Psychiatric: Yes: Oriented Labs: CBC, BMP 07/10/17 07:20 07/10/17 07:20 INR, PTT INR 1.22 (0.82-1.09) H 07/08/17 06:00 Problem List - Problems (1) Syncope and collapse Code(s): R55 - SYNCOPE AND COLLAPSE (2) ESRD (end stage renal disease) Code(s): N18.6 - END STAGE RENAL DISEASE (3) HLD (hyperlipidemia) Code(s): E78.5 - HYPERLIPIDEMIA, UNSPECIFIED (4) HTN (hypertension) Code(s): I10 - ESSENTIAL (PRIMARY) HYPERTENSION Assessment/Plan Current Medications Generic Name Dose Route Start Last Admin Trade Name Freq PRN Reason Stop Dose Admin Albuterol Sulfate 1 amp 07/06/17 22:05 07/10/17 07:35 Ventolin 0.083% Nebulizer Soln - NEB 1 amp Q6H PRN Administration SHORT OF BREATH/WHEEZING Aspirin 81 mg 07/07/17 10:00 07/10/17 09:40 Asa - PO 81 mg DAILY [facility] Administration Atorvastatin Calcium 80 mg 07/07/17 22:00 07/09/17 21:54 Lipitor - PO 80 mg HS [facility] Administration Calcium Acetate 1,334 mg 07/07/17 08:00 07/10/17 11:37 Phoslo - PO 1,334 mg TIDCM [facility] Administration Carvedilol 6.25 mg 07/08/17 10:22 07/10/17 09:40 Coreg - PO 6.25 mg BID [facility] Administration Cholecalciferol 2,000 unit 07/07/17 10:00 07/10/17 09:40 Vitamin D3 - PO 2,000 unit DAILY [facility] Administration Docusate Sodium 100 mg 07/06/17 22:03 07/08/17 10:49 Colace - PO 100 mg TID PRN Administration CONSTIPATION Ferrous Sulfate 325 mg 07/07/17 10:00 07/10/17 09:40 Feosol - PO 325 mg DAILY [facility] Administration Heparin Sodium (Porcine) 5,000 unit 07/06/17 22:15 07/10/17 06:03 Heparin - SQ 5,000 unit TID [facility] Administration Insulin Aspart 1 vial 07/06/17 22:00 07/10/17 11:37 Novolog Vial Sliding Scale - SQ 2 units ACHS [facility] Administration Protocol Pantoprazole Sodium 20 mg 07/07/17 10:00 07/10/17 09:40 Protonix - PO 20 mg DAILY [facility] Administration Polyethylene Glycol 17 gm 07/07/17 10:00 07/10/17 09:44 Miralax (For Daily Use) - PO Not Given DAILY [facility] Pregabalin 100 mg 07/07/17 10:00 07/10/17 09:40 Lyrica - PO 100 mg DAILY [facility] Administration Torsemide 80 mg 07/09/17 08:00 07/09/17 14:44 Demadex - PO Not Given PETERS [facility] Torsemide 80 mg 07/10/17 08:00 07/10/17 09:40 Demadex - PO 80 mg MOWEFR [facility] Administration Impression 1. ESRD 2. anemia 3. HTN 4. morbid obesity 5. CVA 6. hyperlipidemia 7. proteinuria - nephrotic 8. PVD 9. lower ext gangrene 10. syncope Plan - HD in am, set up as outpt - podiatry eval for dressing change tomorrow - monitor bp - pt instructed to get up slowly - epogen for anemia
--- NOTE | 2017-07-10 14:08 | DS ---
Physical Exam: SUBJECTIVE: Pt reports improvement of his lightheadedness from yesterday, however still has positional lightheadedness. He notes during today's orthostatic vital signs he felt better with changing positions compared to the previous days. Otherwise has no complaints and reports he has follow-up for his wound on 07/11/17 and he has regularly scheduled dialysis /Th/Sat. OBJECTIVE: Vital Signs Period Temp Pulse Resp BP Sys/Leon Pulse Ox Last 24 Hr 98.1 F-98.8 F 62-79 18-20 101-151/52-110 97-98 PHYSICAL EXAM GENERAL: NAD, awake, alert, laying down in bed HEENT: Nc/AT, EOMI, CROW, no signs of nystagmus, sclera anicteric, dry-moist mucosa LUNGS: CTA bilaterally, no wheezes, no crackles, no accessory muscle use. HEART: RRR, S1, S2 without murmurs appreciated ABDOMEN: Soft, nontender, nondistended, normoactive bowel sounds, no guarding, no masses. EXTREMITIES: 2+ DP pulses, warm, no edema. PSYCH: Normal mood, normal affect. SKIN: Warm, dry, normal turgor, no rashes or lesions noted. LABS Laboratory Results - last 24 hr 07/09/17 07/09/17 07/09/17 15:34 16:49 21:50 WBC 5.1 RBC 3.10 L Hgb 9.3 L D Hct 27.5 L MCV 88.8 MCH 30.0 MCHC 33.7 RDW 15.9 Plt Count 250 MPV 8.9 Sodium Potassium Chloride Carbon Dioxide Anion Gap BUN Creatinine POC Glucometer 197 Random Glucose Calcium Blood Type A POSITIVE Antibody Screen Negative Crossmatch See Detail 07/09/17 07/10/17 07/10/17 21:50 05:46 07:20 WBC 5.3 RBC 2.85 L Hgb 8.5 L Hct 25.0 L MCV 87.9 MCH 29.8 MCHC 33.8 RDW 15.9 Plt Count 222 MPV 9.1 Sodium Potassium 3.8 Chloride Carbon Dioxide Anion Gap BUN Creatinine POC Glucometer 110 Random Glucose Calcium Blood Type Antibody Screen Crossmatch 07/10/17 07/10/17 07:20 11:23 WBC RBC Hgb Hct MCV MCH MCHC RDW Plt Count MPV Sodium 141 Potassium 3.7 Chloride 103 Carbon Dioxide 30 Anion Gap 8 BUN 30 H D Creatinine 6.7 H D POC Glucometer 207 Random Glucose 97 Calcium 8.2 L Blood Type Antibody Screen Crossmatch HOSPITAL COURSE: Date of Admission:07/10/17 Date of Discharge: 07/10/17 57 year old DM, PVD M s/p L foot transmetatarsal amputation with dorsal dehiscence ulcer (on 06/27/17) presents to the ED after episode of fall during his hyperbaric treatment appointment. Pt received a Head CT noncontrast which showed no acute intracranial pathology (full report below) and his additional CXR and EKG were unremarkable. Pt was unable to receive MRI 2/2 to his morbid obesity. Pt was admitted to telemetry for r/o syncope and during his stay was found to have a 5-beat run of NSVT with repeat EKg showing sinus rhythm at 61bpm with right-axis deviation and nonspecific ST and T-wave changes. Unfortunately pt remained lightheaded and his Coreg dose was reduced from 12.5mg BID to 6.25mg BID PO to aid in alleviating his symptoms. Pt also received 2 sets of orthostatic vital signs throughout his stay which revealed that the pt suffered from orthostatic hypotension from supine to standing position. Additionally pt received 1UPRBC during his stay due to a decrease in hemoglobin down to 7.7 in the setting of his lightheadedness. Pt throughout his stay maintained his regularly scheduled HD and tolerated the procedure well. Pt is being discharged in stable condition with instructions to continue following Dr. Alcantara for his foot wound (07/11/17 next appointment) and Dr. Win for his dialysis. Notable imaging studies: 07/10/17 CT Head: No definite interval change is identified in comparison to a prior CT study of 06/22/2017. Mild periventricular and subcortical hypodensity is noted probably on the basis of mild chronic microvascular ischemic changes. Atherosclerotic calcifications are seen along the intracranial vertebral and internal carotid arteries which are probably somewhat more prominent than would be expected for the patient's chronologic age. Correlate with clinical risk factors. As on the prior study moderate left mastoid and mild to moderate right mastoid fluid accumulation is seen. Additional notable labs: Troponin I: <0.02, <0.02 Minutes to complete discharge: 35 Discharge Summary Reason For Visit: ANEMIA, CHRONIC KIDNEY DISEASE, SYNCOPE AND Current Active Problems Orthostatic hypotension (Acute) Syncope and collapse (Acute) Anemia (Chronic) ESRD (end stage renal disease) (Chronic) Condition: Stable - Instructions Diet, Activity, Other Instructions: You were seen here for your fainting episode during your HBO treatment You were found to have this lightheaded feeling due to "orthostatic vital signs " meaning your blood pressure changes from laying to sitting to standing. --When transitioning from positions please go slowly and if you feel faint, sit down and wait until this goes away Medications: Your Coreg dose was decreased from 12.5 BID to 6.25 BID. Please monitor blood pressure. Torsemide is to be given on Non dialysis days only ( not daily ) Continue your other medications as you have been You will need to be on orthostatic hypotension precautions Follow-up Please follow up with Dr. Alcantara on 07/11 --Your wound bandage should not be changed until your follow-up and he will suggest any wound change instructions Please re-draw a CBC in 1 week to check for your blood levels (hemoglobin and hematocrit) Referrals: Balaji Alcantara MD [Staff Physician] - 07/11/17 Hai Davis [Primary Care Provider] - Brigitte Win MD [Staff Physician] - [facility] - Home Medications Comprehensive Discharge Medication List: Ambulatory Orders Omeprazole [Prilosec (RX)] 20 mg PO DAILY 08/13/14 Atorvastatin Ca [Lipitor] 80 mg PO HS 05/24/16 Ferrous Sulfate [Feosol] 1 tab PO DAILY 08/02/16 Albuterol Sulfate [Proair Respiclick] 90 mcg IH BID 11/13/16 Cholecalciferol (Vitamin D3) [Vitamin D3] 2,000 unit PO DAILY 11/13/16 Aspirin [ASA -] 81 mg PO DAILY #30 tab.chew 11/15/16 Glipizide 5 mg PO BID 04/19/17 Pregabalin [Lyrica -] 100 mg PO DAILY [facility] 50 mg 04/19/17 Calcium Acetate [Phoslo -] 1,334 mg PO TIDCM capsule 04/27/17 Docusate Sodium [Colace -] 100 mg PO TID PRN #90 capsule 04/27/17 Polyethylene Glycol 3350 [Miralax 119 gm Btl -] 17 gm PO DAILY bottle 04/27/17 Lorazepam [Ativan] 2 mg PO DAILY #30 tablet [facility]D 1 06/01/17 Carvedilol [Coreg -] 6.25 mg PO BID tablet 07/10/17 Oxycodone HCl 5 mg PO Q8H PRN #10 tablet [facility] 15 07/10/17 Torsemide [Demadex -] 80 mg PO MOWEFR tablet 07/10/17 Torsemide [Demadex -] 80 mg PO PETERS tablet 07/10/17 This patient is new to me today: No Emergency Visit: No Critical Care patient: No - Discharge Referral Referred to [facility] Med [facility].C[facility] No
[2017-07-10 14:49] VITALS: BMI 42.2
[2017-07-10 19:00] VITALS: BP 155/79; PULSE 65; TEMP 98.6
== END 2017-07-10 20:07 | DRG 312 ==
LOC: JER 15:40 → JERBED 19:59 → J4S 07-07 00:44 → OBSVTOIN 07-10 07:31
PROVIDERS: ADMIT Internal Medicine; ATTEND Internal Medicine
PROC: 30233N1 Transfusion of Nonautologous Red Blood Cells into Peripheral Vein, Percutaneous Approach (ICD-10-PCS; principal; 2017-07-10)
DX: I95.1 Orthostatic hypotension (principal); N18.6 End stage renal disease; I12.0 Hypertensive chronic kidney disease with stage 5 chronic kidney disease or end stage renal disease; Z68.41 Body mass index [BMI] 40.0-44.9, adult; I69.354 Hemiplegia and hemiparesis following cerebral infarction affecting left non-dominant side; I47.2 Ventricular tachycardia; D64.9 Anemia, unspecified; E78.5 Hyperlipidemia, unspecified; E66.01 Morbid (severe) obesity due to excess calories; K59.00 Constipation, unspecified; E11.22 Type 2 diabetes mellitus with diabetic chronic kidney disease; Z89.422 Acquired absence of other left toe(s); K21.9 Gastro-esophageal reflux disease without esophagitis
CPT/HCPCS: 11042; 36415; 36430; 70450-TC; 71045-TC-FY; 80048; 80053; 81003; 81015; 82962; 83735; 84100; 84132; 84484; 85025; 85027; 85610; 85730; 86850; 86900; 86901; 86922; 93005; 93010; 94640; 99284-25; G0277; G0378; J0885; J1644; J7030; P9038; P9058

== ENCOUNTER 2017-07-29 20:28 | Inpatient (IN) | payer OTHER ==
--- NOTE | 2017-07-29 20:56 | PDOC ---
History of Present Illness - General History Source: Patient Exam Limitations: No Limitations - History of Present Illness Initial Comments: 07/29/17 21:46 The patient is a 57 year old male with past medical history of anemia, asthma, COPD, diabetes, HTN, ESRD (on HD TTS), PVD, CVAx2 (w/LLE residual weakness) presents to the emergency department via ems with left foot pain. The patient is s/p left digits amputation a month ago due to the formation of gangrene. The patient states having an ingrown nail on his left toe 6 months ago, which was amputated but the wound dressing was left on for 5 days leading to the gangrene build up. The patient reports he stayed at the hospital for a week, discharge followed by daily dressing change at [facility]. The patient reports hes been on vacuum wound drainage since Monday. The patient reports having an appointment for vacuum drainage yesterday but reports was unable to have the procedure due to the machine malfunction. The patient reports an increased redness to the left foot, and pain since morning. Denies taking any antibiotic. Denies any fever, chills, cough or headache. Denies any chest pain, sob or wheezing. Denies any numbness, weakness, or loss of sensations. The patient reports losing 280 pound s/p gastric bypass surgery. Allergies: Fish derived, shellfish, Sulfamethoxazole, trimethoprim Social history: No reported history of smoking, alcohol or recreational drug use. Surgical history: Gastric bypass. PCP: Dr. Hai Davis. Podiatry: Dr. Balaji Alcantara. Occasional visits with Dr. Matthew. <Sally Aguirre - Last Filed: 07/29/17 22:09> <Adama Headley - Last Filed: 07/29/17 23:34> - General Chief Complaint: Pain Stated Complaint: SKIN INFECTION Time Seen by Provider: 07/29/17 20:43 Past History <Sally Aguirre - Last Filed: 07/29/17 22:09> - Past Medical History Anemia: Yes Asthma: Yes Cancer: No Cardiac Disorders: (ANGINA) CVA: Yes (X 2) COPD: Yes CHF: No Dementia: No Diabetes: Yes Dialysis: Yes (tu,thr,sat lt arm fistula) GI Disorders: No Disorders: No HTN: Yes Hypercholesterolemia: Yes Liver Disease: No Seizures: No Thyroid Disease: No - Surgical History Abdominal Surgery: Yes (gastric bypass 05/05/14) Appendectomy: No Cardiac Surgery: No Cholecystectomy: No Lung Surgery: No Neurologic Surgery: No Orthopedic Surgery: No - Immunization History Immunization Up to Date: Yes - Suicide/Smoking/Psychosocial Hx Smoking Status: No Smoking History: Never smoked Have you smoked in the past 12 months: No Number of Cigarettes Smoked Daily: 0 Hx Alcohol Use: No Drug/Substance Use Hx: No Substance Use Type: None Hx Substance Use Treatment: No <Adama Headley - Last Filed: 07/29/17 23:34> - Past Medical History Allergies/Adverse Reactions: Allergies Allergy/AdvReac Type Severity Reaction Status Date / Time fish derived Allergy Severe Hives Verified 07/06/17 20:17 Shellfish Allergy Severe Verified 07/06/17 20:17 sulfamethoxazole Allergy Severe Swelling Verified 07/06/17 20:17 [From Bactrim DS] trimethoprim Allergy Severe Swelling Verified 07/06/17 20:17 [From Bactrim DS] Home Medications: Ambulatory Orders Omeprazole [Prilosec (RX)] 20 mg PO DAILY 08/13/14 Atorvastatin Ca [Lipitor] 80 mg PO HS 05/24/16 Ferrous Sulfate [Feosol] 1 tab PO DAILY 08/02/16 Albuterol Sulfate [Proair Respiclick] 90 mcg IH BID 11/13/16 Cholecalciferol (Vitamin D3) [Vitamin D3] 2,000 unit PO DAILY 11/13/16 Aspirin [ASA -] 81 mg PO DAILY #30 tab.chew 11/15/16 Glipizide 5 mg PO BID 04/19/17 Pregabalin [Lyrica -] 100 mg PO DAILY MDD 50 mg 04/19/17 Calcium Acetate [Phoslo -] 1,334 mg PO TIDCM capsule 04/27/17 Docusate Sodium [Colace -] 100 mg PO TID PRN #90 capsule 04/27/17 Polyethylene Glycol 3350 [Miralax 119 gm Btl -] 17 gm PO DAILY bottle 04/27/17 Lorazepam [Ativan] 2 mg PO DAILY #30 tablet MDD 1 06/01/17 Carvedilol [Coreg -] 6.25 mg PO BID tablet 07/10/17 Oxycodone HCl 5 mg PO Q8H PRN #10 tablet MDD 15 07/10/17 Torsemide [Demadex -] 80 mg PO MOWEFR tablet 07/10/17 Torsemide [Demadex -] 80 mg PO PETERS tablet 07/10/17 Review of Systems - Review of Systems Constitutional: No: Chills, Fever Integumentary: Yes: See HPI Neurological: No: Headache All Other Systems: Reviewed and Negative <Adama Headley - Last Filed: 07/29/17 23:34> *Physical Exam - Vital Signs Last Vital Signs Temp Pulse Resp BP Pulse Ox 98.7 F 89 19 124/70 99 07/29/17 20:30 07/29/17 20:30 07/29/17 20:30 07/29/17 20:30 07/29/17 20:30 - Physical Exam Comments: 07/29/17 21:47 GENERAL: The patient is awake, alert, and fully oriented, in no acute distress. HEAD:[Normal with no signs of trauma. EYES: Pupils equal, round and reactive to light, extraocular movements intact, sclera anicteric, conjunctiva clear. EXTREMITIES:(+) s/p left foot distal metatarsal amputation. erythema. Circumferential around the ankle. Back dressing in place but not functioning. Good distal perfusion. Bilateral venous stasis change with chronic edema. NEUROLOGICAL: Normal speech, normal gait. PSYCH: Normal mood, normal affect. SKIN: Warm, Dry, normal turgor, no rashes or lesions noted. <Sally Aguirre - Last Filed: 07/29/17 22:09> ED Treatment Course - Medications Given in the ED: ED Medications Discontinued Medications Generic Name Dose Route Start Last Admin Trade Name Freq PRN Reason Stop Dose Admin Doxycycline Hyclate 100 mg 07/29/17 21:11 07/29/17 21:29 Vibramycin - PO 07/29/17 21:12 100 mg ONCE ONE Administration <Sally Aguirre - Last Filed: 07/29/17 22:09> - LABORATORY CBC & Chemistry Diagram: 07/29/17 22:16 07/29/17 22:16 <Adama Headley - Last Filed: 07/29/17 23:34> Medical Decision Making - Medical Decision Making 07/29/17 21:14 57y/o M about one month s/p distal metatarsal amputation for gangrenous L toe, not currently on abx but with daily vac dressing changes and weekly wound clinic evaluation now p/w increasing erythema/discomfort to the foot over the last day in the setting of vac dressing malfunction at [facility]. afebrile, no evidence of deep tissue infection start oral abx - allergic to bactrim, states has been treated with doxycycline in the past seeking vac dressing supplies 07/29/17 22:04 upon removal of current dressing: foul odor, persistent warm erythema to the foot, deep tissue with new superficial necrosis, no crepitus. Per patient, markedly different than 24h ago and the odor is new. Given concern for infection, will obtain IV access and start IV antibiotics given patient's history of rapidly progressive infection/gangrene. Pt in agreement, Dr. Alcantara called. 07/29/17 23:23 wbc 5.3 with normal diff, chem wnl with baseline Cr 5. CRP negative. wound changed, abx given, Maricruz consulted. Will proceed with admission to [facility], covering Dr. White, who admits for [facility]. 07/29/17 23:34 Accepted for inpatient med/surg by Dr. Portillo, signout given to ALFREDO Escobedo. <Adama Headley - Last Filed: 07/29/17 23:34> *DC/Admit/Observation/Transfer - Attestations Scribe Attestion: 07/29/17 21:47 Documentation prepared by Sally Aguirre, acting as medical device sales representative for Adama Headley MD. <Sally Aguirre - Last Filed: 07/29/17 22:09> - Discharge Dispostion Decision to Admit order: Yes <Adama Headley - Last Filed: 07/29/17 23:34> Diagnosis at time of Disposition: PVD (peripheral vascular disease), Stasis edema with ulcer of left lower extremity - Discharge Dispostion Condition at time of disposition: Stable
[2017-07-29] MEDS ORDERED: DOXYCYCLINE HYCLATE 100 MG CAPSULE PO ONE ×2 (21:11→21:27)
[2017-07-29] MEDS ORDERED: VANCOMYCIN 1,000 MG in DEXTROSE 5%-WATER - 250 ML IVPB ONE (22:02)
[2017-07-29] MEDS ORDERED: PIPERACILLIN/TAZOB 4.5 GM 4.5 GM in DEXTROSE 5%-WATER 100 ML IVPB ONE (22:02)
[2017-07-29] MEDS ORDERED: VANCOMYCIN 1 GRAM (PRE-DOCKED) 1,000 MG/250 ML BAG IVPB ONE (22:27)
[2017-07-29] MEDS ORDERED: PIPERACILLIN/TAZOB 4.5 GM 4.5 GM/100 ML BAG IVPB ONE (22:27)
[2017-07-29 22:30] LABS: EOS % 8.4 % (0-4.5); HEMATOCRIT 36.5 % (35.4-49); HEMOGLOBIN 11.6 GM/dL (11.7-16.9); LYMPH % 20.7 % (8-40); MCH 28.5 pg (25.7-33.7); MCHC 31.9 g/dl (32.0-35.9); MEAN CELL VOLUME 89.3 fl (80-96); MONO % 8.7 % (3.8-10.2); NEUT % 59.2 % (42.8-82.8); PLATELET COUNT 204 K/MM3 (134-434); RBC 4.08 M/mm3 (4.00-5.60); RDW 15.9 % (11.9-15.9); WHITE BLOOD COUNT 5.3 K/mm3 (4.0-10.0)
[2017-07-29 22:56] LABS: ALBUMIN 3.3 g/dl (3.4-5.0); ANION GAP 7 (8-16); BILIRUBIN,TOTAL 0.4 mg/dL (0.2-1.0); BLOOD UREA NITROGEN 28 mg/dL (7-18); CALCIUM 8.7 mg/dL (8.5-10.1); CHLORIDE 106 mmol/L (98-107); CO2 26 mmol/L (21-32); GLUCOSE,RANDOM 83 mg/dL (74-106); SGPT/ALT 43 U/L (12-78); SODIUM 139 mmol/L (136-145); TOT PROT 7.5 g/dl (6.4-8.2)
[2017-07-29 22:57] LABS: ALK PHOS 64 U/L (45-117); POTASSIUM 4.5 mmol/L (3.5-5.1); SGOT/AST 42 U/L (15-37)
[2017-07-29 23:27] LABS: ERYTHROCYTE SEDIMENTATION RATE 33 mm/hr (0-20)
--- NOTE | 2017-07-29 23:32 | HP ---
CHIEF COMPLAINT: Foot Pain, Odor PCP: Dr. White HISTORY OF PRESENT ILLNESS: This is a 57 y/o man with a past medical history of ESRD (,, ), HTN, HLD, DM, CVA x2, COPD, HOLLY, Anemia, Asthma, PVD, CVAx2(w/LLE residual weakness). Who presents to the ED with left foot pain and odor. 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 The patient reports hospital stay for a week, discharged followed by daily dressing change at [facility]. The patient reports hes been on vacuum wound drainage since Monday. The patient reports having an appointment for vacuum drainage yesterday but reports was unable to have the procedure due to the machine malfunction. The patient reports increased redness and pain to the left foot since this morning. Patient denies fever, chills. Patient denies numbness or loss of sensation. ER course was notable for: (1) ESR 33 (2) Foot Xray- pending (3) BUN 28, Cr 5 Recent Travel: None PAST MEDICAL HISTORY: See HPI PAST SURGICAL HISTORY: Left Foot Metatarsal Amputation Left Arm AV Fistula Social History: Smoking: Never Alcohol: None Drugs: None Lives alone Family History: Non-Contributory Allergies fish derived Allergy (Severe, Verified 07/06/17 20:17) Hives Shellfish Allergy (Severe, Verified 07/06/17 20:17) throat swelling sulfamethoxazole [From Bactrim DS] Allergy (Severe, Verified 07/06/17 20:17) Swelling trimethoprim [From Bactrim DS] Allergy (Severe, Verified 07/06/17 20:17) Swelling HOME MEDICATIONS: Home Medications Medication Instructions Recorded Omeprazole [Prilosec (RX)] 20 mg PO DAILY 08/13/14 Atorvastatin Ca [Lipitor] 80 mg PO HS 05/24/16 Ferrous Sulfate [Feosol] 1 tab PO DAILY 08/02/16 Albuterol Sulfate [Proair 90 mcg IH BID 11/13/16 Respiclick] Cholecalciferol (Vitamin D3) 2,000 unit PO DAILY 11/13/16 [Vitamin D3] Aspirin [ASA -] 81 mg PO DAILY #30 tab.chew 11/15/16 Glipizide 5 mg PO BID 04/19/17 Pregabalin [Lyrica -] 100 mg PO DAILY MDD 50 mg 04/19/17 Calcium Acetate [Phoslo -] 1,334 mg PO TIDCM capsule 04/27/17 Docusate Sodium [Colace -] 100 mg PO TID PRN #90 capsule 04/27/17 Polyethylene Glycol 3350 [Miralax 17 gm PO DAILY bottle 04/27/17 119 gm Btl -] Lorazepam [Ativan] 2 mg PO DAILY #30 tablet MDD 1 06/01/17 Carvedilol [Coreg -] 6.25 mg PO BID tablet 07/10/17 Oxycodone HCl 5 mg PO Q8H PRN #10 tablet MDD 15 07/10/17 Torsemide [Demadex -] 80 mg PO MOWEFR tablet 07/10/17 Torsemide [Demadex -] 80 mg PO PETERS tablet 07/10/17 REVIEW OF SYSTEMS CONSTITUTIONAL: Absent: fever, chills, diaphoresis, generalized weakness, malaise, loss of appetite, weight change HEENT: Absent: rhinorrhea, nasal congestion, throat pain, throat swelling, difficulty swallowing, mouth swelling, ear pain, eye pain, visual changes CARDIOVASCULAR: Absent: chest pain, syncope, palpitations, irregular heart rate, lightheadedness , peripheral edema RESPIRATORY: Absent: cough, shortness of breath, dyspnea with exertion, orthopnea, wheezing, stridor, hemoptysis GASTROINTESTINAL: Absent: abdominal pain, abdominal distension, nausea, vomiting, diarrhea, constipation, melena, hematochezia GENITOURINARY: Absent: dysuria, frequency, urgency, hesitancy, hematuria, flank pain, genital pain MUSCULOSKELETAL: Left foot pain Absent: myalgia, arthralgia, joint swelling, back pain, neck pain SKIN: Redness, foot wound Absent: rash, itching, pallor HEMATOLOGIC/IMMUNOLOGIC: Absent: easy bleeding, easy bruising, lymphadenopathy, frequent infections ENDOCRINE: Absent: unexplained weight gain, unexplained weight loss, heat intolerance, cold intolerance NEUROLOGIC: Absent: headache, focal weakness or paresthesias, dizziness, unsteady gait, seizure, mental status changes, bladder or bowel incontinence PSYCHIATRIC: Absent: anxiety, depression, suicidal or homicidal ideation, hallucinations. PHYSICAL EXAMINATION Vital Signs - 24 hr 07/29/17 20:30 Temperature 98.7 F Pulse Rate 89 Respiratory 19 Rate Blood Pressure 124/70 O2 Sat by Pulse 99 Oximetry (%) GENERAL: Obese, awake, alert, and fully oriented, in no acute distress. HEAD: Normal with no signs of trauma. EYES: Pupils equal, round and reactive to light, extraocular movements intact, sclera anicteric, conjunctiva clear. No lid lag. EARS, NOSE, THROAT: Ears normal, nares patent, oropharynx clear without exudates. Moist mucous membranes. NECK: Normal range of motion, supple without lymphadenopathy, JVD, or masses. LUNGS: Breath sounds equal, clear to auscultation bilaterally. No wheezes, and no crackles. No accessory muscle use. HEART: Regular rate and rhythm, normal S1 and S2 without murmur, rub or gallop. ABDOMEN: Soft, nontender, not distended, normoactive bowel sounds, no guarding, no rebound, no masses. No hepatomegaly or splenomegaly. MUSCULOSKELETAL: Normal range of motion at all joints. No bony deformities or tenderness. No CVA tenderness. UPPER EXTREMITIES: 2+ pulses, warm, well-perfused. No cyanosis. No clubbing. No peripheral edema. Left - AV fistula +thrill LOWER EXTREMITIES: 2+ pulses, warm, well-perfused. No calf tenderness. +3 B/L venous stasis peripheral edema. NEUROLOGICAL: Cranial nerves II-XII intact. Normal speech. Gait not observed. PSYCHIATRIC: Cooperative. Good eye contact. Appropriate mood and affect. SKIN: Warm, dry, normal turgor, no rashes, normal capillary refill. +erythema, left foot wound- necrosis, malodorous noted Laboratory Results - last 24 hr 07/29/17 07/29/17 22:16 22:16 WBC 5.3 RBC 4.08 D Hgb 11.6 L D Hct 36.5 D MCV 89.3 MCH 28.5 MCHC 31.9 L RDW 15.9 Plt Count 204 MPV 9.0 Neutrophils % 59.2 D Lymphocytes % 20.7 Monocytes % 8.7 Eosinophils % 8.4 H Basophils % 3.0 H Nucleated RBC % 0 ESR 33 H Sodium 139 Potassium 4.5 D Chloride 106 Carbon Dioxide 26 Anion Gap 7 L BUN 28 H Creatinine 5.0 H D Creat Clearance w eGFR 12.02 Random Glucose 83 Calcium 8.7 Total Bilirubin 0.4 D AST 42 H ALT 43 D Alkaline Phosphatase 64 D C-Reactive Protein < 0.3 Total Protein 7.5 D Albumin 3.3 L D ASSESSMENT/PLAN: This is a 57 y/o man with a PMH ESRD (,,), HTN, HLD, DM, Anemia, COPD, CVA x2, PVD, HOLLY. Admitted for Left Food Wound Problem List - Problem (1) Open wound of left foot Assessment/Plan: - s/p Left metatarsal amputation - Likely secondary to malfunction of wound Vac - No leukocytosis, no neutrophilia, - Blood Cultures-pending - L-foot xray r/o Osteo- pending - Zosyn, Vancomycin Doxycycline,(recent use)given in ED - Will continue Zosyn,Vancomycin for Pseudomonal, MRSA coverage - Appreciate ID consult - Appreciate Podiatry consult - Appreciate Vascular consult - Wound Care - Monitor CBC, BMP - Monitor vitals - Isolation Precautions- contact ESBL, Stap hx - Code(s): S91.302A - UNSPECIFIED OPEN WOUND, LEFT FOOT, INITIAL ENCOUNTER (2) Stasis edema with ulcer of left lower extremity Assessment/Plan: - Continue Lasix - Elevate extremity - Continue Zosyn, Vancomycin - Appreciate ID consult - Monitor CBC, BMP Code(s): I87.312 - CHRONIC VENOUS HYPERTENSION W ULCER OF L LOW EXTREM (3) Lymph edema Assessment/Plan: - See above Code(s): I89.0 - LYMPHEDEMA, NOT ELSEWHERE CLASSIFIED (4) PVD (peripheral vascular disease) Assessment/Plan: - Continue home med - Neurovascular checks Code(s): I73.9 - PERIPHERAL VASCULAR DISEASE, UNSPECIFIED (5) COPD (chronic obstructive pulmonary disease) Assessment/Plan: - stable - Duonebs - Continue home meds Code(s): J44.9 - CHRONIC OBSTRUCTIVE PULMONARY DISEASE, UNSPECIFIED (6) Anemia Assessment/Plan: - stable - Will transfuse if Hgb < 7.0 - Continue Ferrous sulfate - Repeat CBC in am Code(s): D64.9 - ANEMIA, UNSPECIFIED Qualifiers: Anemia type: unspecified type Qualified Code(s): D64.9 - Anemia, unspecified (7) CAD (coronary artery disease) Assessment/Plan: - stable - Patient denies chest pain, SOB - Continue home meds Code(s): I25.10 - ATHSCL HEART DISEASE OF [place] CORONARY ARTERY W/O ANG PCTRS (8) ESRD (end stage renal disease) Assessment/Plan: - HD (,, ) - Appreciate Nephrology Consult for HD management - Avoid nephrotoxic drugs - Continue home meds Code(s): N18.6 - END STAGE RENAL DISEASE (9) Chronic kidney disease Assessment/Plan: - stable - Cr 5.0 at baseline - Monitor renal function Code(s): N18.9 - CHRONIC KIDNEY DISEASE, UNSPECIFIED Qualifiers: Chronic kidney disease stage: unspecified stage Qualified Code(s): N18.9 - Chronic kidney disease, unspecified (10) HLD (hyperlipidemia) Assessment/Plan: - Continue Lipitor - Monitor LFTs Code(s): E78.5 - HYPERLIPIDEMIA, UNSPECIFIED (11) HTN (hypertension) Assessment/Plan: - stable - Monitor BP - Continue home meds with parameters - Monitor renal function Code(s): I10 - ESSENTIAL (PRIMARY) HYPERTENSION (12) Neuropathy Assessment/Plan: - Continue Lyrica Code(s): G62.9 - POLYNEUROPATHY, UNSPECIFIED (13) Morbid obesity Assessment/Plan: - Sub optimal controlled - Carb Controlled Diet - FU with RD, Spout [employer] outpatient Code(s): E66.01 - MORBID (SEVERE) OBESITY DUE TO EXCESS CALORIES Visit type - Emergency Visit Emergency Visit: Yes ED Registration Date: 07/29/17 Care time: The patient presented to the Emergency Department on the above date and was hospitalized for further evaluation of their emergent condition. - New Patient This patient is new to me today: Yes Date on this admission: 07/29/17 - Critical Care Critical Care patient: No Hospitalist Screening - Colonoscopy Questionnaire Colonoscopy Questionnaire: Colonoscopy Questionnaire - Patient: 50 - 75 years old and never had a screening colonoscopy: No History of colon or rectal polyps, or CA: No History of IBD, Crohn's disease or UC: No History of abdominal radiation therapy as a child: No - Relative: 1 with colon or rectal CA, or polyps at age 60 or younger: No Colon or rectal CA diagnosed at age 45 or younger: No Multiple relatives with colon or rectal CA: No - Outcome: Screening Result: Negative Screen
[2017-07-30] MEDS ORDERED: oxyCODONE HCL 5 MG TABLET PO PRN (04:34)
[2017-07-30] MEDS ORDERED: PIPERACILLIN/TAZOBACTAM 2.25 GM VIAL IVPB ONE (05:37)
[2017-07-30] MEDS ORDERED: DEXTROSE 5%-WATER - 50 ML IVPB ONE (05:38)
[2017-07-30] MEDS ORDERED: DOCUSATE SODIUM 100 MG CAPSULE (FP) PO PRN (05:55)
[2017-07-30] MEDS ORDERED: PIPERACILLIN/TAZOB 2.25 GM 2.25 GM in DEXTROSE 5%-WATER - 50 ML IVPB ONE (06:00)
[2017-07-30] MEDS ORDERED: TORSEMIDE 20 MG TABLET (FP) PO SCH ×2 (06:45)
[2017-07-30] MEDS: HEPARIN NA (PORCINE) 5,000 UNITS/ML 1ML VIAL SQ SCH ×3 (06:49→21:02)
[2017-07-30] MEDS: INSULIN SLIDING SCALE (NOVOLOG) 1 VIAL SQ SCH ×3 (06:54→17:18)
[2017-07-30 08:02] LABS: BASO % 2.5 % (0-2.0); EOS % 9.7 % (0-4.5); HEMATOCRIT 34.6 % (35.4-49); HEMOGLOBIN 11.2 GM/dL (11.7-16.9); LYMPH % 17.4 % (8-40); MCH 28.8 pg (25.7-33.7); MCHC 32.5 g/dl (32.0-35.9); MEAN CELL VOLUME 88.6 fl (80-96); MEAN PLT VOLUME 9.5 fl (7.5-11.1); MONO % 10.2 % (3.8-10.2); NEUT % 60.2 % (42.8-82.8); PLATELET COUNT 179 K/MM3 (134-434); RDW 15.8 % (11.9-15.9); WHITE BLOOD COUNT 5.1 K/mm3 (4.0-10.0)
[2017-07-30 09:01] LABS: CHLORIDE 106 mmol/L (98-107); POTASSIUM 3.9 mmol/L (3.5-5.1); SODIUM 140 mmol/L (136-145)
[2017-07-30 09:15] LABS: ANION GAP 10 (8-16); BLOOD UREA NITROGEN 31 mg/dL (7-18); CALCIUM 8.6 mg/dL (8.5-10.1); CO2 24 mmol/L (21-32); CREATININE 5.5 mg/dL (0.7-1.3); GLUCOSE,RANDOM 76 mg/dL (74-106)
[2017-07-30] MEDS ORDERED: SODIUM HYPOCHLORITE 0.25%- 473 ML BULK BOTTLE TP SCH (10:00)
--- NOTE | 2017-07-30 10:02 | CONSULT ---
Consult Consult Specialty:: Podiatry Reason for Consultation:: Diabetic ulceration left foot, infected - History of Present Illness Chief Complaint: infected wound left foot History of Present Illness: Patient reports was in custodial and was receiving VAC treatment of wound at amputation site left foot. The VAC that was placed Monday was to be chnaged Monday. He states the nurse who performed the VAC dressing on Monday had never performed the dressing and wanted to attempt. The Dressing was not sufficient and the VAC was alarming as per patient. When the VAC was removed on Monday the wound was painful, malodorous, and red. He denies, f/c/n/v, no calf pain or SOB. - History Source History Provided By: Patient - Past Medical History RESIDENT INTERN: Yes: CVA Cardio/Vascular: Yes: HTN, Hyperlipdemia Pulmonary: Yes: Sleep Apnea Gastrointestinal: Yes: GERD, Other (obesity) Renal/: Yes: Renal Failure, Renal Inusuff, Hemodialysis, Other Endocrine: Yes: Diabetes Mellitus - Past Surgical History Past Surgical History: Yes: AV Fistula/Graft Additional Surgical History: Transmetatarsal ampuation left foot. - Alcohol/Substance Use Hx Alcohol Use: No - Smoking History Smoking history: Never smoked Have you smoked in the past 12 months: No Aproximately how many cigarettes per day: 0 - Social History ADL: Independent History of Recent Travel: No Home Medications - Allergies Allergies/Adverse Reactions: Allergies Allergy/AdvReac Type Severity Reaction Status Date / Time fish derived Allergy Severe Hives Verified 07/06/17 20:17 Shellfish Allergy Severe Verified 07/06/17 20:17 sulfamethoxazole Allergy Severe Swelling Verified 07/06/17 20:17 [From Bactrim DS] trimethoprim Allergy Severe Swelling Verified 07/06/17 20:17 [From Bactrim DS] - Home Medications Home Medications: Ambulatory Orders Omeprazole [Prilosec (RX)] 20 mg PO DAILY 08/13/14 Atorvastatin Ca [Lipitor] 80 mg PO HS 05/24/16 Ferrous Sulfate [Feosol] 1 tab PO DAILY 08/02/16 Albuterol Sulfate [Proair Respiclick] 90 mcg IH BID 11/13/16 Cholecalciferol (Vitamin D3) [Vitamin D3] 2,000 unit PO DAILY 11/13/16 Aspirin [ASA -] 81 mg PO DAILY #30 tab.chew 11/15/16 Glipizide 5 mg PO BID 04/19/17 Pregabalin [Lyrica -] 100 mg PO DAILY MDD 50 mg 04/19/17 Calcium Acetate [Phoslo -] 1,334 mg PO TIDCM capsule 04/27/17 Docusate Sodium [Colace -] 100 mg PO TID PRN #90 capsule 04/27/17 Polyethylene Glycol 3350 [Miralax 119 gm Btl -] 17 gm PO DAILY bottle 04/27/17 Lorazepam [Ativan] 2 mg PO DAILY #30 tablet MDD 1 06/01/17 Carvedilol [Coreg -] 6.25 mg PO BID tablet 07/10/17 Oxycodone HCl 5 mg PO Q8H PRN #10 tablet MDD 15 07/10/17 Torsemide [Demadex -] 80 mg PO MOWEFR tablet 07/10/17 Torsemide [Demadex -] 80 mg PO PETERS tablet 07/10/17 Family Disease History - Family Disease History Family Disease History: Heart Disease: Father ( of SANON at 43 ), CA: Mother ( Breast) Physical Exam Vital Signs: Vital Signs Temperature 98.3 F 07/30/17 07:39 Pulse Rate 63 07/30/17 07:39 Respiratory Rate 21 07/30/17 07:39 Blood Pressure 129/64 07/30/17 07:39 O2 Sat by Pulse Oximetry (%) 99 07/30/17 01:56 Constitutional: Yes: No Distress, Calm Respiratory: Yes: WNL, Regular, CTA Bilaterally Musculoskeletal: Yes: WNL Extremities: Yes: Amputation (TMA left foot, heavy slough with malodor, no fluctuance, no purulence expressed. no necrotic tissue, partial red, beefy, muscular base of wound. Remainder of flap is pink, warm to touch.) Edema: LUE: 2+, RUE: 1+ Peripheral Pulses WNL: No (feet warm to touch, ) Wound/Incision: Yes: Unapproximated Neurological: Yes: Loss of Sensation ...Motor Strength: WNL Labs: CBC, BMP 07/30/17 06:25 07/30/17 06:25 Imaging - Results X-ray: Image Reviewed (stable s/p TMA. I do not recommend further studies, due to recent surgery, may produce false positives.) Problem List - Problems (1) Open wound of left foot Code(s): S91.302A - UNSPECIFIED OPEN WOUND, LEFT FOOT, INITIAL ENCOUNTER (2) PVD (peripheral vascular disease) Code(s): I73.9 - PERIPHERAL VASCULAR DISEASE, UNSPECIFIED (3) DM type 2, uncontrolled, with renal complications Code(s): E11.29 - TYPE 2 DIABETES MELLITUS W OTH DIABETIC KIDNEY COMPLICATION; E11.65 - TYPE 2 DIABETES MELLITUS WITH HYPERGLYCEMIA Qualifiers: Diabetes mellitus complication detail: with chronic kidney disease (4) ESRD (end stage renal disease) Code(s): N18.6 - END STAGE RENAL DISEASE Assessment/Plan Plan for bedside debridement on Monday local wound with Dakins IV abx for 3-5 days Thank you for courtesy of this consult.
[2017-07-30] MEDS ORDERED: INSULIN (NOVOLOG) ASPART 100 UNITS/ML 10ML VIAL ONE ×2 (10:24→17:12)
[2017-07-30] MEDS ORDERED: PT OWN MED DRAWER 7, Y5N ONE (10:25)
[2017-07-30] MEDS: ASPIRIN 81 MG CHEWABLE TABLETS PO SCH (10:44)
[2017-07-30] MEDS: PREGABALIN 50 MG CAPSULE PO SCH (10:44)
[2017-07-30] MEDS: FERROUS SO4 325 MG TABLET (FP) PO SCH (10:44)
[2017-07-30] MEDS: CARVEDILOL 6.25 MG TABLET (FP) PO SCH ×2 (10:45→21:15)
[2017-07-30] MEDS: CALCIUM ACETATE 667 MG CAPSULE (FP) PO SCH ×3 (10:46→17:15)
[2017-07-30] MEDS: ALBUTEROL SO4 18 GM HFA INHALER IH SCH ×2 (10:47→21:01)
[2017-07-30] MEDS: CHOLECALCIFEROL (VITAMIN D3) 1,000 UNIT TABLET (FP) PO SCH (10:47)
[2017-07-30] MEDS: PANTOPRAZOLE 20 MG TABLET (FP) PO SCH (10:47)
[2017-07-30] MEDS ORDERED: VANCOMYCIN 500 MG in DEXTROSE 5%-WATER - 100 ML IVPB ONE (11:12)
--- NOTE | 2017-07-30 11:15 | PN ---
Progress Note (short form) - Note Progress Note: ID consult 57 yo diabetic man on HD s/p TMA 06/27 wound dehiscence that had vac placed on Monday at wound care admitted with nonfunctioning VAC and worsening erythema and drainage of the wound wound examned- now clean, minimal erythema,no purulence prior wound culture ecoi esbl and MRSA plan vanco (follow levels) secondary to HD ertapenem contact isolation f/ping with podiatry Problem List - Problems (1) Open wound of left foot Code(s): S91.302A - UNSPECIFIED OPEN WOUND, LEFT FOOT, INITIAL ENCOUNTER (2) Cellulitis Code(s): L03.90 - CELLULITIS, UNSPECIFIED (3) ESRD (end stage renal disease) Code(s): N18.6 - END STAGE RENAL DISEASE (4) DM type 2, uncontrolled, with renal complications Code(s): E11.29 - TYPE 2 DIABETES MELLITUS W OTH DIABETIC KIDNEY COMPLICATION; E11.65 - TYPE 2 DIABETES MELLITUS WITH HYPERGLYCEMIA Qualifiers: Diabetes mellitus complication detail: with chronic kidney disease
[2017-07-30] MEDS: SODIUM HYPOCHLORITE 0.25%- 473 ML BULK BOTTLE TP SCH (11:46)
[2017-07-30] MEDS ORDERED: VANCOMYCIN 1 GM PREMIX - 1 GM/200 ML BAG IVPB ONE (12:00)
[2017-07-30] MEDS: ERTAPENEM SODIUM 0.5 GM in SODIUM CHLORIDE 50 ML IVPB SCH (13:24)
--- NOTE | 2017-07-30 14:20 | PN ---
Physical Exam: SUBJECTIVE: Patient seen and examined, Per RN + sutures noted per RN, dressing jsut changed. Pt reports feeling better today, no fever, no aches. OBJECTIVE: Vital Signs Period Temp Pulse Resp BP Sys/Leon Pulse Ox Last 24 Hr 98.3 F-98.7 F 63-89 19-21 124-129/64-70 99-99 PE Neuro: alert, awake, cn 2-12intact Pulm: CTAB CV: s1 s2 rrr Abd: obese, s nt nd +bs Ext: LUE AVF + thrill, venous stasis b/l le, L foot dressing intact, Laboratory Results - last 24 hr 07/29/17 07/29/17 07/30/17 22:16 22:16 06:25 WBC 5.3 5.1 RBC 4.08 D 3.90 L Hgb 11.6 L D 11.2 L Hct 36.5 D 34.6 L MCV 89.3 88.6 MCH 28.5 28.8 MCHC 31.9 L 32.5 RDW 15.9 15.8 Plt Count 204 179 MPV 9.0 9.5 Neutrophils % 59.2 D 60.2 Lymphocytes % 20.7 17.4 Monocytes % 8.7 10.2 Eosinophils % 8.4 H 9.7 H Basophils % 3.0 H 2.5 H Nucleated RBC % 0 0 ESR 33 H Sodium 139 Potassium 4.5 D Chloride 106 Carbon Dioxide 26 Anion Gap 7 L BUN 28 H Creatinine 5.0 H D Creat Clearance w eGFR 12.02 POC Glucometer Random Glucose 83 Calcium 8.7 Total Bilirubin 0.4 D AST 42 H ALT 43 D Alkaline Phosphatase 64 D C-Reactive Protein < 0.3 Total Protein 7.5 D Albumin 3.3 L D Vancomycin Pre-Dose 07/30/17 07/30/17 07/30/17 06:25 06:54 10:05 WBC RBC Hgb Hct MCV MCH MCHC RDW Plt Count MPV Neutrophils % Lymphocytes % Monocytes % Eosinophils % Basophils % Nucleated RBC % ESR Sodium 140 Potassium 3.9 Chloride 106 Carbon Dioxide 24 Anion Gap 10 BUN 31 H Creatinine 5.5 H Creat Clearance w eGFR POC Glucometer 64 Random Glucose 76 Calcium 8.6 Total Bilirubin AST ALT Alkaline Phosphatase C-Reactive Protein Total Protein Albumin Vancomycin Pre-Dose 10.679 H Active Medications Generic Name Dose Route Start Last Admin Trade Name Freq PRN Reason Stop Dose Admin Albuterol Sulfate 2 puff 07/30/17 10:00 07/30/17 10:47 Ventolin Hfa Inhaler - IH 2 inhaler BID [facility] Administration Aspirin 81 mg 07/30/17 10:00 07/30/17 10:44 Asa - PO 81 mg DAILY [facility] Administration Atorvastatin Calcium 80 mg 07/30/17 22:00 Lipitor - PO HS [facility] Calcium Acetate 1,334 mg 07/30/17 08:00 07/30/17 12:15 Phoslo - PO 1,334 mg TIDCM [facility] Administration Carvedilol 6.25 mg 07/30/17 10:00 07/30/17 10:45 Coreg - PO 6.25 mg BID [facility] Administration Cholecalciferol 2,000 unit 07/30/17 10:00 07/30/17 10:47 Vitamin D3 - PO 2,000 unit DAILY [facility] Administration Docusate Sodium 100 mg 07/30/17 05:55 Colace - PO TID PRN CONSTIPATION Ferrous Sulfate 325 mg 07/30/17 10:00 07/30/17 10:44 Feosol - PO 325 mg DAILY [facility] Administration Heparin Sodium (Porcine) 5,000 unit 07/30/17 06:00 07/30/17 13:20 Heparin - SQ 5,000 unit TID [facility] Administration Ertapenem 0.5 gm/ Sodium 50 mls @ 100 mls/hr 07/30/17 11:45 07/30/17 13:24 Chloride IVPB 100 mls/hr DAILY [facility] Administration Protocol Insulin Aspart 1 vial 07/30/17 07:00 07/30/17 11:45 Novolog Vial Sliding Scale - SQ Not Given TIDAC [facility] Protocol Oxycodone HCl 5 mg 07/30/17 06:08 Roxicodone - PO Q8H PRN PAIN LEVEL 6-10 Pantoprazole Sodium 20 mg 07/30/17 10:00 07/30/17 10:47 Protonix - PO 20 mg DAILY [facility] Administration Pregabalin 100 mg 07/30/17 10:00 07/30/17 10:44 Lyrica - PO 100 mg DAILY [facility] Administration Sodium Hypochlorite 1 applic 07/30/17 10:00 07/30/17 11:46 Dakin's Solution 0.25% (Half-Strength) - TP 1 applic DAILY [facility] Administration Torsemide 80 mg 07/31/17 06:00 Demadex - PO MoWeFr@0600 [facility] Torsemide 80 mg 07/30/17 06:45 07/30/17 06:49 Demadex - PO 80 mg Chapa@0600 [facility] Administration Assessment: 57 year old man with h/o DM II, ESRD (HD TTS), PVD, OM, CVA x2 ( residual, LLE weakness), COPD, HOLLY, morbid obesity s/p gastric sleeve, HTN, anemia, HLP, s/p left foot transmetatarsal amputation due to the formation of gangrene and sent to [place] with vac. Now presenting with malfunctioning VAC and worsening wound pain and drainage. Plan: 1. Open wound of left foot - Ertapenem per ID, prior cx with ESBL and MRSA - Vanco level, dose per leve, with HD - Plan for bedside debridement Monday - Podiatry consult appreciated 2. ESRD T S - HD per Renal, pt received hd yesterday 3. PVD - See above - Resume demadex 4. HTN - Coreg, asa 5. DM II - ISS, BGM Visit type - Emergency Visit Emergency Visit: Yes ED Registration Date: 07/29/17 Care time: The patient presented to the Emergency Department on the above date and was hospitalized for further evaluation of their emergent condition. - New Patient This patient is new to me today: Yes Date on this admission: 07/30/17 - Critical Care Critical Care patient: No
[2017-07-30] MEDS ORDERED: PIPERACILLIN/TAZOB 2.25 GM 2.25 GM in DEXTROSE 5%-WATER - 50 ML IVPB SCH (15:00)
--- NOTE | 2017-07-30 15:54 | CONS ---
DATE OF CONSULTATION: DATE OF DICTATION: 07/30/2017 REQUESTED BY: Hospitalist Service This is a 57-year-old man who has a history of diabetes, end-stage renal disease. He is status post left TMA in June 2017. He was hospitalized for syncope July 06 to July 10. He had some wound dehiscence and [facility]. Apparently, a VAC was placed on Monday. [facility]. At [facility], the VAC was not functioning appropriately. He noticed worsening erythema and drainage of the wound and he called 9-1-1 and came to the hospital. In the ER, he denied any fevers or chills. He noted that the leg had gotten more red and it was more malodorous. On examination in the emergency room, there was noted erythema and drainage from the wound. This morning, he is resting comfortably. He received vancomycin and Zosyn in the ER. I am asked to see him for further evaluation. PAST MEDICAL HISTORY: Notable for end-stage renal disease; he is on dialysis; history of PVD, CVA x2, obesity, anemia, asthma, COPD, diabetes, and hypertension. He has a history of hypercholesterolemia. SURGICAL HISTORY: Notable for gastric bypass and the left arm fistula. SOCIAL HISTORY: He is currently residing at the [facility]. He is allergic to FISH and TRIMETHOPRIM SULFA. MEDICATIONS IN THE OUTPATIENT SETTING: Omeprazole; atorvastatin; ferrous sulfate; albuterol; vitamin D; aspirin; glipizide; Lyrica; PhosLo; Colace; MiraLAX; Ativan; Coreg; oxycodone; and Demadex. REVIEW OF SYSTEMS: He denies any fevers and chills. He has no nausea, vomiting, diarrhea, dysuria. He has a good appetite. PHYSICAL EXAMINATION: General: He is awake and alert. Vital Signs: His temperature is 98.3, pulse is 63, blood pressure 129/64, respiratory rate is 21, and saturating 99% on room air. HEENT: He is normocephalic. His eyes are anicteric. Neck: Supple. Lungs: Clear to auscultation. Heart: Regular rate and rhythm. Abdomen: Soft, nontender. Extremities: Notable for an open TMA wound that has some slough. There is no fluctuance. There is no purulence or necrotic tissue. It is beefy red and there is some minimal erythema to the rest of the foot. White count is 5.1, hemoglobin 11.2, platelets of 179. BUN 31, creatinine 5.5. Vancomycin level is 10. SUMMARY: This is a 57-year-old man status post transmetatarsal amputation in June with wound dehiscence admitted with nonfunctioning VAC and worsening wound. Concerns would be for some cellulitis at the wound site. Prior wound culture grew Escherichia coli, extended-spectrum betalactamase, and methicillin-resistant Staphylococcus aureus. Would treat him with vancomycin based on levels and ertapenem with contact isolation and followup with podiatry. He has end-stage renal disease and his antibiotics will be dosed accordingly. He reports his sugars have been well-controlled. ROBERT ECHEVERRIA M.D. [id number]
[2017-07-30] MEDS: ATORVASTATIN CA 80 MG TABLET (FP) PO SCH (21:02)
--- NOTE | 2017-07-30 21:37 | CON.NEP ---
Consult Consult Specialty:: nephrology Referred by:: patricio vásquez Reason for Consultation:: for hd maintenance - History of Present Illness Chief Complaint: esrd History of Present Illness: esrd on hd tiw admitted with infected leg wound admitted for IV abx - History Source History Provided By: Patient, Medical Record - Past Medical History [employer]O [employer]: Yes: CVA Cardio/Vascular: Yes: HTN, Hyperlipdemia Pulmonary: Yes: Sleep Apnea Gastrointestinal: Yes: GERD, Other (obesity) Renal/: Yes: Renal Failure, Renal Inusuff, Hemodialysis, Other Endocrine: Yes: Diabetes Mellitus - Past Surgical History Past Surgical History: Yes: AV Fistula/Graft Additional Surgical History: Transmetatarsal ampuation left foot. - Alcohol/Substance Use Hx Alcohol Use: No - Smoking History Smoking history: Never smoked Have you smoked in the past 12 months: No Aproximately how many cigarettes per day: 0 - Social History ADL: Independent History of Recent Travel: No Home Medications - Allergies Allergies/Adverse Reactions: Allergies Allergy/AdvReac Type Severity Reaction Status Date / Time fish derived Allergy Severe Hives Verified 07/06/17 20:17 Shellfish Allergy Severe Verified 07/06/17 20:17 sulfamethoxazole Allergy Severe Swelling Verified 07/06/17 20:17 [From Bactrim DS] trimethoprim Allergy Severe Swelling Verified 07/06/17 20:17 [From Bactrim DS] - Home Medications Home Medications: Ambulatory Orders Omeprazole [Prilosec (RX)] 20 mg PO DAILY 08/13/14 Atorvastatin Ca [Lipitor] 80 mg PO HS 05/24/16 Ferrous Sulfate [Feosol] 1 tab PO DAILY 08/02/16 Albuterol Sulfate [Proair Respiclick] 90 mcg IH BID 11/13/16 Cholecalciferol (Vitamin D3) [Vitamin D3] 2,000 unit PO DAILY 11/13/16 Aspirin [ASA -] 81 mg PO DAILY #30 tab.chew 11/15/16 Glipizide 5 mg PO BID 04/19/17 Pregabalin [Lyrica -] 100 mg PO DAILY [facility] 50 mg 04/19/17 Calcium Acetate [Phoslo -] 1,334 mg PO TIDCM capsule 04/27/17 Docusate Sodium [Colace -] 100 mg PO TID PRN #90 capsule 04/27/17 Polyethylene Glycol 3350 [Miralax 119 gm Btl -] 17 gm PO DAILY bottle 04/27/17 Lorazepam [Ativan] 2 mg PO DAILY #30 tablet MDD 1 06/01/17 Carvedilol [Coreg -] 6.25 mg PO BID tablet 07/10/17 Oxycodone HCl 5 mg PO Q8H PRN #10 tablet MDD 15 07/10/17 Torsemide [Demadex -] 80 mg PO MOWEFR tablet 07/10/17 Torsemide [Demadex -] 80 mg PO PETERS tablet 07/10/17 Family Disease History - Family Disease History Family Disease History: Heart Disease: Father ( of SANON at 43 ), CA: Mother ( Breast) Nephrology Consult - Height Height: 6 ft 8 in - Weight Weight: 371 lb - BMI Body Mass Index (BMI): 40.7 - Lab Results CBC,BMP: CBC, BMP 07/30/17 06:25 07/30/17 06:25 Anion Gap: Anion Gap Anion Gap 10 (8-16) 07/30/17 06:25 - Physical Examination Vital Signs: Vital Signs Temperature 98 F 07/30/17 21:10 Pulse Rate 96 H 07/30/17 21:10 Respiratory Rate 20 07/30/17 21:10 Blood Pressure 120/61 07/30/17 21:10 O2 Sat by Pulse Oximetry (%) 99 07/30/17 08:00 HENT: Yes: WNL, Atraumatic, Normocephalic Neck: Yes: WNL, Supple, Trachea Midline Cardiovascular: Yes: WNL, Regular Rate and Rhythm Respiratory: Yes: WNL, Regular, CTA Bilaterally Gastrointestinal: Yes: WNL, Normal Bowel Sounds Extremities: Yes: WNL Assessment/Plan esrd on hd tiw regular schedule is TTS admitted for iv abx treatment of infected lower extremity ulcer Plan- HD per maintenance schedule
[2017-07-30] MEDS ORDERED: VANCOMYCIN 1,000 MG in DEXTROSE 5%-WATER - 250 ML IVPB SCH (22:00)
[2017-07-31] MEDS: HEPARIN NA (PORCINE) 5,000 UNITS/ML 1ML VIAL SQ SCH ×3 (06:12→21:36)
[2017-07-31] MEDS: INSULIN SLIDING SCALE (NOVOLOG) 1 VIAL SQ SCH ×3 (06:12→16:39)
[2017-07-31] MEDS: TORSEMIDE 20 MG TABLET (FP) PO SCH (06:12)
[2017-07-31 07:45] LABS: CHLORIDE 107 mmol/L (98-107); POTASSIUM 4.1 mmol/L (3.5-5.1); SODIUM 140 mmol/L (136-145)
[2017-07-31 07:50] LABS: ANION GAP 8 (8-16); BLOOD UREA NITROGEN 41 mg/dL (7-18); CALCIUM 8.4 mg/dL (8.5-10.1); CO2 25 mmol/L (21-32); CREATININE 7.1 mg/dL (0.7-1.3); GLUCOSE,RANDOM 93 mg/dL (74-106)
[2017-07-31] MEDS ORDERED: PT OWN MED DRAWER 7, Y5N ONE ×2 (09:07→21:42)
[2017-07-31] MEDS: PREGABALIN 50 MG CAPSULE PO SCH (09:11)
[2017-07-31] MEDS: PANTOPRAZOLE 20 MG TABLET (FP) PO SCH (09:11)
[2017-07-31] MEDS: CALCIUM ACETATE 667 MG CAPSULE (FP) PO SCH ×3 (09:11→16:36)
[2017-07-31] MEDS: FERROUS SO4 325 MG TABLET (FP) PO SCH (09:11)
[2017-07-31] MEDS: ASPIRIN 81 MG CHEWABLE TABLETS PO SCH (09:11)
[2017-07-31] MEDS: CHOLECALCIFEROL (VITAMIN D3) 1,000 UNIT TABLET (FP) PO SCH (09:11)
[2017-07-31] MEDS: CARVEDILOL 6.25 MG TABLET (FP) PO SCH ×2 (09:11→21:49)
[2017-07-31] MEDS: SODIUM HYPOCHLORITE 0.25%- 473 ML BULK BOTTLE TP SCH (09:12)
[2017-07-31] MEDS: ALBUTEROL SO4 18 GM HFA INHALER IH SCH ×2 (09:12→21:43)
[2017-07-31] MEDS: ERTAPENEM SODIUM 0.5 GM in SODIUM CHLORIDE 50 ML IVPB SCH (09:48)
--- NOTE | 2017-07-31 10:27 | PN ---
Progress Note, Physician - Current Medication List Current Medications: Active Medications Albuterol Sulfate (Ventolin Hfa Inhaler -) 2 puff IH BID [facility] Last Admin: 07/31/17 09:12 Dose: 2 inhaler Aspirin (Asa -) 81 mg PO DAILY [facility] Last Admin: 07/31/17 09:11 Dose: 81 mg Atorvastatin Calcium (Lipitor -) 80 mg PO HS [facility] Last Admin: 07/30/17 21:02 Dose: 80 mg Calcium Acetate (Phoslo -) 1,334 mg PO TIDCM [facility] Last Admin: 07/31/17 09:11 Dose: 1,334 mg Carvedilol (Coreg -) 6.25 mg PO BID [facility] Last Admin: 07/31/17 09:11 Dose: 6.25 mg Cholecalciferol (Vitamin D3 -) 2,000 unit PO DAILY [facility] Last Admin: 07/31/17 09:11 Dose: 2,000 unit Docusate Sodium (Colace -) 100 mg PO TID PRN PRN Reason: CONSTIPATION Ferrous Sulfate (Feosol -) 325 mg PO DAILY [facility] Last Admin: 07/31/17 09:11 Dose: 325 mg Heparin Sodium (Porcine) (Heparin -) 5,000 unit SQ TID [facility] Last Admin: 07/31/17 06:12 Dose: 5,000 unit Ertapenem 0.5 gm/ Sodium (Chloride) 50 mls @ 100 mls/hr IVPB DAILY [facility]; Protocol Last Admin: 07/31/17 09:48 Dose: 100 mls/hr Insulin Aspart (Novolog Vial Sliding Scale -) 1 vial SQ TIDAC [facility]; Protocol Last Admin: 07/31/17 06:12 Dose: Not Given Oxycodone HCl (Roxicodone -) 5 mg PO Q8H PRN PRN Reason: PAIN LEVEL 6-10 Pantoprazole Sodium (Protonix -) 20 mg PO DAILY [facility] Last Admin: 07/31/17 09:11 Dose: 20 mg Pregabalin (Lyrica -) 100 mg PO DAILY [facility] Last Admin: 07/31/17 09:11 Dose: 100 mg Sodium Hypochlorite (Dakin's Solution 0.25% (Half-Strength) -) 1 applic TP DAILY [facility] Last Admin: 07/31/17 09:12 Dose: 1 applic Torsemide (Demadex -) 80 mg PO MoWeFr@0600 [facility] Last Admin: 07/31/17 06:12 Dose: 80 mg Torsemide (Demadex -) 80 mg PO Chapa@599 [facility] Last Admin: 07/30/17 06:49 Dose: 80 mg - Objective Vital Signs: Vital Signs Temperature 97.9 F 07/31/17 06:00 Pulse Rate 63 07/31/17 06:00 Respiratory Rate 20 07/31/17 06:00 Blood Pressure 139/74 07/31/17 06:00 O2 Sat by Pulse Oximetry (%) 99 07/30/17 21:00 Labs: CBC, BMP 07/30/17 06:25 07/31/17 06:30 Problem List - Problems (1) COPD (chronic obstructive pulmonary disease) Assessment/Plan: -stable Code(s): J44.9 - CHRONIC OBSTRUCTIVE PULMONARY DISEASE, UNSPECIFIED (2) Open wound of left foot Assessment/Plan: - Ertapenem per ID, prior cx with ESBL and MRSA - Vanco level, dose per leve, with HD - Plan for bedside debridement Monday - Podiatry consult appreciated Code(s): S91.302A - UNSPECIFIED OPEN WOUND, LEFT FOOT, INITIAL ENCOUNTER (3) PVD (peripheral vascular disease) Assessment/Plan: -as above Code(s): I73.9 - PERIPHERAL VASCULAR DISEASE, UNSPECIFIED (4) DM type 2, uncontrolled, with renal complications Assessment/Plan: -bgm - Code(s): E11.29 - TYPE 2 DIABETES MELLITUS W OTH DIABETIC KIDNEY COMPLICATION; E11.65 - TYPE 2 DIABETES MELLITUS WITH HYPERGLYCEMIA Qualifiers: Diabetes mellitus complication detail: with chronic kidney disease (5) ESRD (end stage renal disease) Assessment/Plan: - - HD per Renal Code(s): N18.6 - END STAGE RENAL DISEASE
[2017-07-31] MEDS ORDERED: INSULIN (NOVOLOG) ASPART 100 UNITS/ML 10ML VIAL ONE ×2 (10:30→16:33)
[2017-07-31] MEDS: ATORVASTATIN CA 80 MG TABLET (FP) PO SCH (21:43)
[2017-07-31] MEDS: oxyCODONE HCL 5 MG TABLET PO PRN (21:44)
[2017-08-01] MEDS ORDERED: PT OWN MED DRAWER 7, Y5N ONE ×3 (04:30→16:24)
[2017-08-01] MEDS: INSULIN SLIDING SCALE (NOVOLOG) 1 VIAL SQ SCH ×3 (06:31→16:48)
[2017-08-01] MEDS: HEPARIN NA (PORCINE) 5,000 UNITS/ML 1ML VIAL SQ SCH ×3 (06:33→22:35)
[2017-08-01] MEDS: CALCIUM ACETATE 667 MG CAPSULE (FP) PO SCH ×3 (07:53→17:04)
[2017-08-01] MEDS: PANTOPRAZOLE 20 MG TABLET (FP) PO SCH (09:04)
[2017-08-01] MEDS: CHOLECALCIFEROL (VITAMIN D3) 1,000 UNIT TABLET (FP) PO SCH (09:04)
[2017-08-01] MEDS: CARVEDILOL 6.25 MG TABLET (FP) PO SCH ×2 (09:04→22:35)
[2017-08-01] MEDS: PREGABALIN 50 MG CAPSULE PO SCH (09:04)
[2017-08-01] MEDS: ASPIRIN 81 MG CHEWABLE TABLETS PO SCH (09:04)
[2017-08-01] MEDS: FERROUS SO4 325 MG TABLET (FP) PO SCH (09:04)
[2017-08-01] MEDS: ALBUTEROL SO4 18 GM HFA INHALER IH SCH ×2 (09:04→22:50)
[2017-08-01] MEDS: SODIUM HYPOCHLORITE 0.25%- 473 ML BULK BOTTLE TP SCH (09:10)
[2017-08-01] MEDS: ERTAPENEM SODIUM 0.5 GM in SODIUM CHLORIDE 50 ML IVPB SCH (10:18)
--- NOTE | 2017-08-01 11:16 | PN ---
Progress Note, Physician Chief Complaint: Diabetic foot ulcer History of Present Illness: NAD in bed Walks to the bathroom with walker Left foot dressing intact with drainage, to be changed by podiatry, may need debridement Wound vac at bedside - Current Medication List Current Medications: Active Medications Albuterol Sulfate (Ventolin Hfa Inhaler -) 2 puff IH BID [facility] Last Admin: 08/01/17 09:04 Dose: 2 inhaler Aspirin (Asa -) 81 mg PO DAILY [facility] Last Admin: 08/01/17 09:04 Dose: 81 mg Atorvastatin Calcium (Lipitor -) 80 mg PO HS [facility] Last Admin: 07/31/17 21:43 Dose: 80 mg Calcium Acetate (Phoslo -) 1,334 mg PO TIDCM [facility] Last Admin: 08/01/17 07:53 Dose: 1,334 mg Carvedilol (Coreg -) 6.25 mg PO BID [facility] Last Admin: 08/01/17 09:04 Dose: 6.25 mg Cholecalciferol (Vitamin D3 -) 2,000 unit PO DAILY [facility] Last Admin: 08/01/17 09:04 Dose: 2,000 unit Docusate Sodium (Colace -) 100 mg PO TID PRN PRN Reason: CONSTIPATION Ferrous Sulfate (Feosol -) 325 mg PO DAILY [facility] Last Admin: 08/01/17 09:04 Dose: 325 mg Heparin Sodium (Porcine) (Heparin -) 5,000 unit SQ TID [facility] Last Admin: 08/01/17 06:33 Dose: 5,000 unit Ertapenem 0.5 gm/ Sodium (Chloride) 50 mls @ 100 mls/hr IVPB DAILY [facility]; Protocol Last Admin: 08/01/17 10:18 Dose: 100 mls/hr Insulin Aspart (Novolog Vial Sliding Scale -) 1 vial SQ TIDAC [facility]; Protocol Last Admin: 08/01/17 06:31 Dose: Not Given Oxycodone HCl (Roxicodone -) 5 mg PO Q8H PRN PRN Reason: PAIN LEVEL 6-10 Last Admin: 07/31/17 21:44 Dose: 5 mg Pantoprazole Sodium (Protonix -) 20 mg PO DAILY [facility] Last Admin: 08/01/17 09:04 Dose: 20 mg Pregabalin (Lyrica -) 100 mg PO DAILY [facility] Last Admin: 08/01/17 09:04 Dose: 100 mg Sodium Hypochlorite (Dakin's Solution 0.25% (Half-Strength) -) 1 applic TP DAILY [facility] Last Admin: 08/01/17 09:10 Dose: 1 applic Torsemide (Demadex -) 80 mg PO MoWeFr@06 [facility] Last Admin: 07/31/17 06:12 Dose: 80 mg Torsemide (Demadex -) 80 mg PO Chapa@0600 [facility] Last Admin: 07/30/17 06:49 Dose: 80 mg - Objective Vital Signs: Vital Signs Temperature 98.7 F 08/01/17 08:23 Pulse Rate 76 08/01/17 08:23 Respiratory Rate 18 08/01/17 08:23 Blood Pressure 115/80 08/01/17 08:23 O2 Sat by Pulse Oximetry (%) 99 07/31/17 21:00 Constitutional: Yes: Well Nourished, No Distress, Calm Cardiovascular: Yes: Regular Rate and Rhythm Respiratory: Yes: Regular Gastrointestinal: Yes: Normal Bowel Sounds, Soft, Abdomen, Obese Musculoskeletal: Yes: WNL Wound/Incision: Yes: Draining Neurological: Yes: Alert, Oriented Psychiatric: Yes: Alert, Oriented Labs: CBC, BMP 07/30/17 06:25 07/31/17 06:30 Problem List - Problems (1) Cellulitis Assessment/Plan: -ID consult -IV Ertapenum, hx of ESBL on left toe wound -Podiatry consult -Wound care -ESR/CRP pending -Oxucodone 5 mg po Q8hPRN Code(s): L03.90 - CELLULITIS, UNSPECIFIED (2) PVD (peripheral vascular disease) Assessment/Plan: -Vascular consult Code(s): I73.9 - PERIPHERAL VASCULAR DISEASE, UNSPECIFIED (3) Anemia Assessment/Plan: -2/2 ESRD, was iron deficient as well -Venofer x 1 -Monitor H/H -Stool OB on 06/10/17 was negative Code(s): D64.9 - ANEMIA, UNSPECIFIED Qualifiers: Anemia type: unspecified type Qualified Code(s): D64.9 - Anemia, unspecified (4) ESRD (end stage renal disease) Assessment/Plan: -nephrology on board -HD on TTS Code(s): N18.6 - END STAGE RENAL DISEASE (5) Diabetes mellitus Assessment/Plan: -[facility]- D/C -Controlled with dietary modification -Last A1c 6.2 in May 2017 -All abx to be diluted in NS -RD consult Code(s): E11.9 - TYPE 2 DIABETES MELLITUS WITHOUT COMPLICATIONS Qualifiers: Diabetes mellitus type: type 2 Assessment/Plan see problem list DVT prophylaxis
--- NOTE | 2017-08-01 13:04 | PN ---
Progress Note (short form) - Note Progress Note: Podiatry F/U: Seen/evaluated at bedside, NAD. Pain controlled, denies F/V/N/C/SOB/CP. Afebrile, VSS. S/p L transmetatarsal amputation with post-operative stump dehiscence ulcer. Patient in SNF with wound vac placed on the wound, developed complications due to wound vac placement which prompted hospitalization. KEEGAN: L foot: post-surgical stump dehiscence ulcer lateral aspect of transmetatarsal amputation site down to muscle with underlying granular base, fibrotic tissue at the periphery, no purulent drainage, no fluctuance, no periwound erythema, no streaking cellulitis, no soft tissue crepitus, no signs of acute infection. Mild tenderness to palpation. WBC: 5.1 ESR: 33 Imp: 57 year old DM, PVD M s/p L transmetatarsal amputation with post- operative stump dehiscence ulcer 1. Informed consent obtained. Excisional debridement of left foot post- operative stump ulcer performed using sterile technique to the level of subcutaneous tissue and muscle utilizing sterile #15 blade scalpel and forceps. The patient tolerated the procedure well without complications. Dakins gauze wet to dry applied to the left foot. 2. Partial weightbearing left heel with surgical offloading shoe. 3. Patient instructed to minimize his weightbearing activity. 4. Discussed options for discharge with patient and he wants to go home. He will need home nursing services for wound vac care. Wound vac at 125 mmHg continuous with black granufoam changed 3x/week. 5. Upon discharge, will f/u with 6/5 in wound healing center. Amarilis Alcantara DPM
[2017-08-01 13:34] VITALS: BMI 40.6
--- NOTE | 2017-08-01 13:45 | PN ---
Progress Note, Physician History of Present Illness: Awake, alert Seated in bed C/O"phantom" foot pain No c/o fever/ chills Tolerating antibiotics - Current Medication List Current Medications: Active Medications Albuterol Sulfate (Ventolin Hfa Inhaler -) 2 puff IH BID [facility] Last Admin: 08/01/17 09:04 Dose: 2 inhaler Aspirin (Asa -) 81 mg PO DAILY [facility] Last Admin: 08/01/17 09:04 Dose: 81 mg Atorvastatin Calcium (Lipitor -) 80 mg PO HS [facility] Last Admin: 07/31/17 21:43 Dose: 80 mg Calcium Acetate (Phoslo -) 1,334 mg PO TIDCM [facility] Last Admin: 08/01/17 12:22 Dose: 1,334 mg Carvedilol (Coreg -) 6.25 mg PO BID [facility] Last Admin: 08/01/17 09:04 Dose: 6.25 mg Cholecalciferol (Vitamin D3 -) 2,000 unit PO DAILY [facility] Last Admin: 08/01/17 09:04 Dose: 2,000 unit Docusate Sodium (Colace -) 100 mg PO TID PRN PRN Reason: CONSTIPATION Ferrous Sulfate (Feosol -) 325 mg PO DAILY [facility] Last Admin: 08/01/17 09:04 Dose: 325 mg Heparin Sodium (Porcine) (Heparin -) 5,000 unit SQ TID [facility] Last Admin: 08/01/17 06:33 Dose: 5,000 unit Ertapenem 0.5 gm/ Sodium (Chloride) 50 mls @ 100 mls/hr IVPB DAILY [facility]; Protocol Last Admin: 08/01/17 10:18 Dose: 100 mls/hr Insulin Aspart (Novolog Vial Sliding Scale -) 1 vial SQ TIDAC [facility]; Protocol Last Admin: 08/01/17 11:38 Dose: 2 unit Oxycodone HCl (Roxicodone -) 5 mg PO Q8H PRN PRN Reason: PAIN LEVEL 6-10 Last Admin: 07/31/17 21:44 Dose: 5 mg Pantoprazole Sodium (Protonix -) 20 mg PO DAILY [facility] Last Admin: 08/01/17 09:04 Dose: 20 mg Pregabalin (Lyrica -) 100 mg PO DAILY [facility] Last Admin: 08/01/17 09:04 Dose: 100 mg Sodium Hypochlorite (Dakin's Solution 0.25% (Half-Strength) -) 1 applic TP DAILY [facility] Last Admin: 08/01/17 09:10 Dose: 1 applic Torsemide (Demadex -) 80 mg PO MoWeFr@06 [facility] Last Admin: 07/31/17 06:12 Dose: 80 mg Torsemide (Demadex -) 80 mg PO Chapa@0600 [facility] Last Admin: 07/30/17 06:49 Dose: 80 mg - Objective Vital Signs: Vital Signs Temperature 98.7 F 08/01/17 08:23 Pulse Rate 76 08/01/17 08:23 Respiratory Rate 18 08/01/17 08:23 Blood Pressure 115/80 08/01/17 08:23 O2 Sat by Pulse Oximetry (%) 96 08/01/17 09:00 Constitutional: Yes: No Distress, Obese Eyes: Yes: Conjunctiva Clear Cardiovascular: Yes: Regular Rate and Rhythm, S1, S2 Respiratory: Yes: CTA Bilaterally Gastrointestinal: Yes: Normal Bowel Sounds, Soft. No: Tenderness Extremities: Yes: Other (TMA stump wound with dehiscence) Integumentary: Yes: Venous Stasis Changes Labs: CBC, BMP 07/30/17 06:25 07/31/17 06:30 Assessment/Plan Infected L TMA stump site + wound c/s ESBL, MRSA ESRD For debridement at bedside Continue ertapenem Redose vancomycin Contact precautions
[2017-08-01] MEDS ORDERED: VANCOMYCIN 1,000 MG in DEXTROSE 5%-WATER - 250 ML IVPB ONE (13:46)
--- NOTE | 2017-08-01 15:55 | PN ---
Progress Note, Physician History of Present Illness: Pt seen and examined at bedside. He is awake and alert. He denies fevers or chills. - Current Medication List Current Medications: Active Medications Albuterol Sulfate (Ventolin Hfa Inhaler -) 2 puff IH BID [facility] Last Admin: 08/01/17 09:04 Dose: 2 inhaler Aspirin (Asa -) 81 mg PO DAILY [facility] Last Admin: 08/01/17 09:04 Dose: 81 mg Atorvastatin Calcium (Lipitor -) 80 mg PO HS [facility] Last Admin: 07/31/17 21:43 Dose: 80 mg Calcium Acetate (Phoslo -) 1,334 mg PO TIDCM [facility] Last Admin: 08/01/17 12:22 Dose: 1,334 mg Carvedilol (Coreg -) 6.25 mg PO BID [facility] Last Admin: 08/01/17 09:04 Dose: 6.25 mg Cholecalciferol (Vitamin D3 -) 2,000 unit PO DAILY [facility] Last Admin: 08/01/17 09:04 Dose: 2,000 unit Docusate Sodium (Colace -) 100 mg PO TID PRN PRN Reason: CONSTIPATION Ferrous Sulfate (Feosol -) 325 mg PO DAILY [facility] Last Admin: 08/01/17 09:04 Dose: 325 mg Heparin Sodium (Porcine) (Heparin -) 5,000 unit SQ TID [facility] Last Admin: 08/01/17 06:33 Dose: 5,000 unit Ertapenem 0.5 gm/ Sodium (Chloride) 50 mls @ 100 mls/hr IVPB DAILY [facility]; Protocol Last Admin: 08/01/17 10:18 Dose: 100 mls/hr Insulin Aspart (Novolog Vial Sliding Scale -) 1 vial SQ TIDAC [facility]; Protocol Last Admin: 08/01/17 11:38 Dose: 2 unit Oxycodone HCl (Roxicodone -) 5 mg PO Q8H PRN PRN Reason: PAIN LEVEL 6-10 Last Admin: 07/31/17 21:44 Dose: 5 mg Pantoprazole Sodium (Protonix -) 20 mg PO DAILY [facility] Last Admin: 08/01/17 09:04 Dose: 20 mg Pregabalin (Lyrica -) 100 mg PO DAILY [facility] Last Admin: 08/01/17 09:04 Dose: 100 mg Sodium Hypochlorite (Dakin's Solution 0.25% (Half-Strength) -) 1 applic TP DAILY [facility] Last Admin: 08/01/17 09:10 Dose: 1 applic Torsemide (Demadex -) 80 mg PO MoWeFr@06 [facility] Last Admin: 07/31/17 06:12 Dose: 80 mg Torsemide (Demadex -) 80 mg PO Chapa@0600 [facility] Last Admin: 07/30/17 06:49 Dose: 80 mg - Objective Vital Signs: Vital Signs Temperature 97.6 F 08/01/17 15:05 Pulse Rate 64 08/01/17 15:05 Respiratory Rate 20 08/01/17 15:05 Blood Pressure 126/75 08/01/17 15:05 O2 Sat by Pulse Oximetry (%) 96 08/01/17 09:00 Constitutional: Yes: Calm Eyes: Yes: Conjunctiva Clear HENT: Yes: Atraumatic Cardiovascular: Yes: S1, S2 Respiratory: Yes: CTA Bilaterally Gastrointestinal: Yes: Soft, Abdomen, Obese Genitourinary: Yes: WNL Edema: Yes Edema: LLE: 1+, RLE: 1+ Integumentary: Yes: Venous Stasis Changes Neurological: Yes: Oriented Psychiatric: Yes: Oriented Labs: CBC, BMP 07/30/17 06:25 07/31/17 06:30 Problem List - Problems (1) COPD (chronic obstructive pulmonary disease) Code(s): J44.9 - CHRONIC OBSTRUCTIVE PULMONARY DISEASE, UNSPECIFIED (2) Cellulitis Code(s): L03.90 - CELLULITIS, UNSPECIFIED (3) Diabetes mellitus Code(s): E11.9 - TYPE 2 DIABETES MELLITUS WITHOUT COMPLICATIONS Qualifiers: Diabetes mellitus type: type 2 (4) ESRD (end stage renal disease) Code(s): N18.6 - END STAGE RENAL DISEASE Assessment/Plan Current Medications Generic Name Dose Route Start Last Admin Trade Name Freq PRN Reason Stop Dose Admin Albuterol Sulfate 2 puff 07/30/17 10:00 08/01/17 09:04 Ventolin Hfa Inhaler - IH 2 inhaler BID [facility] Administration Aspirin 81 mg 07/30/17 10:00 08/01/17 09:04 Asa - PO 81 mg DAILY [facility] Administration Atorvastatin Calcium 80 mg 07/30/17 22:00 07/31/17 21:43 Lipitor - PO 80 mg HS [facility] Administration Calcium Acetate 1,334 mg 07/30/17 08:00 08/01/17 12:22 Phoslo - PO 1,334 mg TIDCM [facility] Administration Carvedilol 6.25 mg 07/30/17 10:00 08/01/17 09:04 Coreg - PO 6.25 mg BID [facility] Administration Cholecalciferol 2,000 unit 07/30/17 10:00 08/01/17 09:04 Vitamin D3 - PO 2,000 unit DAILY [facility] Administration Docusate Sodium 100 mg 07/30/17 05:55 Colace - PO TID PRN CONSTIPATION Ferrous Sulfate 325 mg 07/30/17 10:00 08/01/17 09:04 Feosol - PO 325 mg DAILY [facility] Administration Heparin Sodium (Porcine) 5,000 unit 07/30/17 06:00 08/01/17 06:33 Heparin - SQ 5,000 unit TID [facility] Administration Ertapenem 0.5 gm/ Sodium 50 mls @ 100 mls/hr 07/30/17 11:45 08/01/17 10:18 Chloride IVPB 100 mls/hr DAILY [facility] Administration Protocol Insulin Aspart 1 vial 07/30/17 07:00 08/01/17 11:38 Novolog Vial Sliding Scale - SQ 2 unit TIDAC [facility] Administration Protocol Oxycodone HCl 5 mg 07/30/17 06:08 07/31/17 21:44 Roxicodone - PO 5 mg Q8H PRN Administration PAIN LEVEL 6-10 Pantoprazole Sodium 20 mg 07/30/17 10:00 08/01/17 09:04 Protonix - PO 20 mg DAILY [facility] Administration Pregabalin 100 mg 07/30/17 10:00 08/01/17 09:04 Lyrica - PO 100 mg DAILY [facility] Administration Sodium Hypochlorite 1 applic 07/30/17 10:00 08/01/17 09:10 Dakin's Solution 0.25% (Half-Strength) - TP 1 applic DAILY [facility] Administration Torsemide 80 mg 07/31/17 06:00 07/31/17 06:12 Demadex - PO 80 mg MoWeFr@0600 [facility] Administration Torsemide 80 mg 07/30/17 06:45 07/30/17 06:49 Demadex - PO 80 mg Chapa@0600 [facility] Administration Impression 1. ESRD 2. anemia 3. HTN 4. morbid obesity 5. CVA 6. hyperlipidemia 7. proteinuria - nephrotic 8. PVD 9. foot ulcer Plan - HD in am, unable to dialyze today secondary to scheduling problems and pt does not want to dialyze late tonight - cont wound care - discussed with podiatry - will follow Dr Win
[2017-08-01] MEDS ORDERED: INSULIN (NOVOLOG) ASPART 100 UNITS/ML 10ML VIAL ONE (16:43)
[2017-08-01] MEDS: ATORVASTATIN CA 80 MG TABLET (FP) PO SCH (22:35)
[2017-08-01] MEDS: oxyCODONE HCL 5 MG TABLET PO PRN (22:37)
[2017-08-02] MEDS: TORSEMIDE 20 MG TABLET (FP) PO SCH (06:41)
[2017-08-02] MEDS: INSULIN SLIDING SCALE (NOVOLOG) 1 VIAL SQ SCH ×3 (06:42→17:17)
[2017-08-02] MEDS: HEPARIN NA (PORCINE) 5,000 UNITS/ML 1ML VIAL SQ SCH ×3 (06:42→21:52)
[2017-08-02] MEDS: CALCIUM ACETATE 667 MG CAPSULE (FP) PO SCH ×3 (08:15→17:19)
[2017-08-02] MEDS ORDERED: PT OWN MED DRAWER 7, Y5N ONE (09:15)
[2017-08-02] MEDS: CARVEDILOL 6.25 MG TABLET (FP) PO SCH ×2 (09:19→21:53)
[2017-08-02] MEDS: PREGABALIN 50 MG CAPSULE PO SCH (09:19)
[2017-08-02] MEDS: FERROUS SO4 325 MG TABLET (FP) PO SCH (09:19)
[2017-08-02] MEDS: PANTOPRAZOLE 20 MG TABLET (FP) PO SCH (09:19)
[2017-08-02] MEDS: CHOLECALCIFEROL (VITAMIN D3) 1,000 UNIT TABLET (FP) PO SCH (09:19)
[2017-08-02] MEDS: ASPIRIN 81 MG CHEWABLE TABLETS PO SCH (09:19)
[2017-08-02] MEDS: SODIUM HYPOCHLORITE 0.25%- 473 ML BULK BOTTLE TP SCH (09:20)
[2017-08-02] MEDS: ALBUTEROL SO4 18 GM HFA INHALER IH SCH ×2 (09:21→23:00)
[2017-08-02] MEDS: ERTAPENEM SODIUM 0.5 GM in SODIUM CHLORIDE 50 ML IVPB SCH (09:33)
--- NOTE | 2017-08-02 11:36 | PN ---
Progress Note, Physician Chief Complaint: Diabetic foot ulcer History of Present Illness: NAD in bed Walks to the bathroom with walker Left foot dressing intact with drainage, had bedside debridement yesterday Wound vac at bedside, not being used yet - Current Medication List Current Medications: Active Medications Albuterol Sulfate (Ventolin Hfa Inhaler -) 2 puff IH BID [facility] Last Admin: 08/02/17 09:21 Dose: 2 inhaler Aspirin (Asa -) 81 mg PO DAILY [facility] Last Admin: 08/02/17 09:19 Dose: 81 mg Atorvastatin Calcium (Lipitor -) 80 mg PO HS [facility] Last Admin: 08/01/17 22:35 Dose: 80 mg Calcium Acetate (Phoslo -) 1,334 mg PO TIDCM [facility] Last Admin: 08/02/17 08:15 Dose: 1,334 mg Carvedilol (Coreg -) 6.25 mg PO BID [facility] Last Admin: 08/02/17 09:19 Dose: 6.25 mg Cholecalciferol (Vitamin D3 -) 2,000 unit PO DAILY [facility] Last Admin: 08/02/17 09:19 Dose: 2,000 unit Docusate Sodium (Colace -) 100 mg PO TID PRN PRN Reason: CONSTIPATION Ferrous Sulfate (Feosol -) 325 mg PO DAILY [facility] Last Admin: 08/02/17 09:19 Dose: 325 mg Heparin Sodium (Porcine) (Heparin -) 5,000 unit SQ TID [facility] Last Admin: 08/02/17 06:42 Dose: Not Given Ertapenem 0.5 gm/ Sodium (Chloride) 50 mls @ 100 mls/hr IVPB DAILY [facility]; Protocol Last Admin: 08/02/17 09:33 Dose: 100 mls/hr Insulin Aspart (Novolog Vial Sliding Scale -) 1 vial SQ TIDAC [facility]; Protocol Last Admin: 08/02/17 06:42 Dose: Not Given Oxycodone HCl (Roxicodone -) 5 mg PO Q8H PRN PRN Reason: PAIN LEVEL 6-10 Last Admin: 08/01/17 22:37 Dose: 5 mg Pantoprazole Sodium (Protonix -) 20 mg PO DAILY [facility] Last Admin: 08/02/17 09:19 Dose: 20 mg Pregabalin (Lyrica -) 100 mg PO DAILY [facility] Last Admin: 08/02/17 09:19 Dose: 100 mg Sodium Hypochlorite (Dakin's Solution 0.25% (Half-Strength) -) 1 applic TP DAILY [facility] Last Admin: 08/02/17 09:20 Dose: 1 applic Torsemide (Demadex -) 80 mg PO MoWeFr@06 [facility] Last Admin: 08/02/17 06:41 Dose: 80 mg Torsemide (Demadex -) 80 mg PO Chapa@0600 [facility] Last Admin: 07/30/17 06:49 Dose: 80 mg - Objective Vital Signs: Vital Signs Temperature 97.8 F 08/02/17 07:43 Pulse Rate 61 08/02/17 07:43 Respiratory Rate 20 08/02/17 09:00 Blood Pressure 102/53 08/02/17 07:43 O2 Sat by Pulse Oximetry (%) 96 08/02/17 09:00 Constitutional: Yes: Well Nourished, No Distress, Calm Cardiovascular: Yes: Regular Rate and Rhythm Respiratory: Yes: Regular Gastrointestinal: Yes: Normal Bowel Sounds, Soft Musculoskeletal: Yes: WNL Extremities: Yes: WNL Wound/Incision: Yes: Dressing Dry and Intact Neurological: Yes: Alert, Oriented Psychiatric: Yes: Alert, Oriented Labs: CBC, BMP 07/30/17 06:25 07/31/17 06:30 Problem List - Problems (1) Cellulitis Assessment/Plan: -ID consult -IV Ertapenum, hx of ESBL on left toe wound -Podiatry consult -Wound care -ESR/CRP pending -Oxycodone 5 mg po Q8hPRN Code(s): L03.90 - CELLULITIS, UNSPECIFIED (2) PVD (peripheral vascular disease) Assessment/Plan: -Vascular consult Code(s): I73.9 - PERIPHERAL VASCULAR DISEASE, UNSPECIFIED (3) Anemia Assessment/Plan: -2/2 ESRD, was iron deficient as well -Venofer x 1 -Monitor H/H -Stool OB on 06/10/17 was negative Code(s): D64.9 - ANEMIA, UNSPECIFIED Qualifiers: Anemia type: unspecified type Qualified Code(s): D64.9 - Anemia, unspecified (4) ESRD (end stage renal disease) Assessment/Plan: -nephrology on board -HD on TTS Code(s): N18.6 - END STAGE RENAL DISEASE (5) Diabetes mellitus Assessment/Plan: -[facility]CH[facility] -Controlled with dietary modification -Last A1c 6.2 in May 2017 -was on glipizide, complains his blood sugars were dropping in 40's -All abx to be diluted in NS -RD consult -Endocrinology consult Code(s): E11.9 - TYPE 2 DIABETES MELLITUS WITHOUT COMPLICATIONS Qualifiers: Diabetes mellitus type: type 2 Assessment/Plan see problem list DVT prophylaxis
--- NOTE | 2017-08-02 12:55 | PN ---
Progress Note, Physician History of Present Illness: Pt seen and examined at bedside. He is awake and alert. He denies shortness of breath. - Current Medication List Current Medications: Active Medications Albuterol Sulfate (Ventolin Hfa Inhaler -) 2 puff IH BID [facility] Last Admin: 08/02/17 09:21 Dose: 2 inhaler Aspirin (Asa -) 81 mg PO DAILY [facility] Last Admin: 08/02/17 09:19 Dose: 81 mg Atorvastatin Calcium (Lipitor -) 80 mg PO HS [facility] Last Admin: 08/01/17 22:35 Dose: 80 mg Calcium Acetate (Phoslo -) 1,334 mg PO TIDCM [facility] Last Admin: 08/02/17 08:15 Dose: 1,334 mg Carvedilol (Coreg -) 6.25 mg PO BID [facility] Last Admin: 08/02/17 09:19 Dose: 6.25 mg Cholecalciferol (Vitamin D3 -) 2,000 unit PO DAILY [facility] Last Admin: 08/02/17 09:19 Dose: 2,000 unit Docusate Sodium (Colace -) 200 mg PO [facility] Ferrous Sulfate (Feosol -) 325 mg PO DAILY [facility] Last Admin: 08/02/17 09:19 Dose: 325 mg Heparin Sodium (Porcine) (Heparin -) 5,000 unit SQ TID [facility] Last Admin: 08/02/17 06:42 Dose: Not Given Ertapenem 0.5 gm/ Sodium (Chloride) 50 mls @ 100 mls/hr IVPB DAILY [facility]; Protocol Last Admin: 08/02/17 09:33 Dose: 100 mls/hr Iron Sucrose 300 mg/ Sodium (Chloride) 250 mls @ 166.667 mls/hr IVPB ONCE ONE Stop: 08/02/17 15:29 Insulin Aspart (Novolog Vial Sliding Scale -) 1 vial SQ TIDAC [facility]; Protocol Last Admin: 08/02/17 06:42 Dose: Not Given Oxycodone HCl (Roxicodone -) 5 mg PO Q8H PRN PRN Reason: PAIN LEVEL 6-10 Last Admin: 08/01/17 22:37 Dose: 5 mg Pantoprazole Sodium (Protonix -) 20 mg PO DAILY [facility] Last Admin: 08/02/17 09:19 Dose: 20 mg Pregabalin (Lyrica -) 100 mg PO DAILY [facility] Last Admin: 08/02/17 09:19 Dose: 100 mg Sodium Hypochlorite (Dakin's Solution 0.25% (Half-Strength) -) 1 applic TP DAILY [facility] Last Admin: 08/02/17 09:20 Dose: 1 applic Torsemide (Demadex -) 80 mg PO MoWeFr@0600 [facility] Last Admin: 08/02/17 06:41 Dose: 80 mg Torsemide (Demadex -) 80 mg PO Chapa@0600 [facility] Last Admin: 07/30/17 06:49 Dose: 80 mg - Objective Vital Signs: Vital Signs Temperature 97.8 F 08/02/17 07:43 Pulse Rate 61 08/02/17 07:43 Respiratory Rate 20 08/02/17 09:00 Blood Pressure 102/53 08/02/17 07:43 O2 Sat by Pulse Oximetry (%) 96 08/02/17 09:00 Constitutional: Yes: Calm Eyes: Yes: Conjunctiva Clear HENT: Yes: Atraumatic Neck: Yes: Supple Cardiovascular: Yes: S1, S2 Respiratory: Yes: CTA Bilaterally Gastrointestinal: Yes: Soft, Abdomen, Obese Genitourinary: Yes: WNL Musculoskeletal: Yes: WNL Edema: Yes Edema: LLE: 1+, RLE: 1+ Wound/Incision: Yes: Dressing Dry and Intact Neurological: Yes: Oriented Psychiatric: Yes: Oriented Labs: CBC, BMP 07/30/17 06:25 07/31/17 06:30 Problem List - Problems (1) COPD (chronic obstructive pulmonary disease) Code(s): J44.9 - CHRONIC OBSTRUCTIVE PULMONARY DISEASE, UNSPECIFIED (2) Cellulitis Code(s): L03.90 - CELLULITIS, UNSPECIFIED (3) Diabetes mellitus Code(s): E11.9 - TYPE 2 DIABETES MELLITUS WITHOUT COMPLICATIONS Qualifiers: Diabetes mellitus type: type 2 (4) ESRD (end stage renal disease) Code(s): N18.6 - END STAGE RENAL DISEASE Assessment/Plan Current Medications Generic Name Dose Route Start Last Admin Trade Name Freq PRN Reason Stop Dose Admin Albuterol Sulfate 2 puff 07/30/17 10:00 08/02/17 09:21 Ventolin Hfa Inhaler - IH 2 inhaler BID [facility] Administration Aspirin 81 mg 07/30/17 10:00 08/02/17 09:19 Asa - PO 81 mg DAILY [facility] Administration Atorvastatin Calcium 80 mg 07/30/17 22:00 08/01/17 22:35 Lipitor - PO 80 mg HS [facility] Administration Calcium Acetate 1,334 mg 07/30/17 08:00 08/02/17 08:15 Phoslo - PO 1,334 mg TIDCM [facility] Administration Carvedilol 6.25 mg 07/30/17 10:00 08/02/17 09:19 Coreg - PO 6.25 mg BID [facility] Administration Cholecalciferol 2,000 unit 07/30/17 10:00 08/02/17 09:19 Vitamin D3 - PO 2,000 unit DAILY [facility] Administration Docusate Sodium 200 mg 08/02/17 22:00 Colace - PO HS [facility] Ferrous Sulfate 325 mg 07/30/17 10:00 08/02/17 09:19 Feosol - PO 325 mg DAILY [facility] Administration Heparin Sodium (Porcine) 5,000 unit 07/30/17 06:00 08/02/17 06:42 Heparin - SQ Not Given TID [facility] Ertapenem 0.5 gm/ Sodium 50 mls @ 100 mls/hr 07/30/17 11:45 08/02/17 09:33 Chloride IVPB 100 mls/hr DAILY [facility] Administration Protocol Iron Sucrose 300 mg/ Sodium 250 mls @ 166.667 mls/hr 08/02/17 14:00 Chloride IVPB 08/02/17 15:29 ONCE ONE Insulin Aspart 1 vial 07/30/17 07:00 08/02/17 06:42 Novolog Vial Sliding Scale - SQ Not Given TIDAC [facility] Protocol Oxycodone HCl 5 mg 07/30/17 06:08 08/01/17 22:37 Roxicodone - PO 5 mg Q8H PRN Administration PAIN LEVEL 6-10 Pantoprazole Sodium 20 mg 07/30/17 10:00 08/02/17 09:19 Protonix - PO 20 mg DAILY [facility] Administration Pregabalin 100 mg 07/30/17 10:00 08/02/17 09:19 Lyrica - PO 100 mg DAILY [facility] Administration Sodium Hypochlorite 1 applic 07/30/17 10:00 08/02/17 09:20 Dakin's Solution 0.25% (Half-Strength) - TP 1 applic DAILY [facility] Administration Torsemide 80 mg 07/31/17 06:00 08/02/17 06:41 Demadex - PO 80 mg MoWeFr@0600 [facility] Administration Torsemide 80 mg 07/30/17 06:45 07/30/17 06:49 Demadex - PO 80 mg Chapa@0600 [facility] Administration Impression 1. ESRD 2. anemia 3. HTN 4. morbid obesity 5. CVA 6. hyperlipidemia 7. proteinuria - nephrotic 8. PVD 9. foot ulcer Plan - HD today - check bmp - cont wound care - monitor bp - will follow Dr Win
[2017-08-02] MEDS ORDERED: IRON SUCROSE INJECTION 300 MG in SODIUM CHLORIDE 235 ML IVPB ONE (14:00)
[2017-08-02 15:38] LABS: ANION GAP 9 (8-16); BLOOD UREA NITROGEN 58 mg/dL (7-18); CALCIUM 8.1 mg/dL (8.5-10.1); CHLORIDE 108 mmol/L (98-107); CO2 23 mmol/L (21-32); GLUCOSE,RANDOM 148 mg/dL (74-106); POTASSIUM 4.6 mmol/L (3.5-5.1); SODIUM 140 mmol/L (136-145)
[2017-08-02 15:48] LABS: CREATININE 8.7 mg/dL (0.7-1.3)
[2017-08-02] MEDS: ATORVASTATIN CA 80 MG TABLET (FP) PO SCH (21:53)
[2017-08-02] MEDS: DOCUSATE SODIUM 100 MG CAPSULE (FP) PO SCH (21:53)
--- NOTE | 2017-08-03 00:01 | CONSULT ---
Consult Consult Specialty:: endocrine Referred by:: giovani fritz nP Reason for Consultation:: diabetes mellitus - History of Present Illness Chief Complaint: low sugars History of Present Illness: 57 y/o man with a past medical history of ESRD (,, ), HTN, HLD, DM, CVA x2 , COPD, HOLLY, Anemia, Asthma, PVD, CVAx2(w/LLE residual weakness). Who presents to the ED with left foot pain and odor. 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 The patient reports hospital stay for a week, discharged followed by daily dressing change at [facility]. The patient reports hes been on vacuum wound drainage, low blood sugars on oral agents for diabetes mellitus difficulty controlling sugars despite eating well. - Past Medical History [employer]: Yes: CVA Cardio/Vascular: Yes: HTN, Hyperlipdemia Pulmonary: Yes: Sleep Apnea Gastrointestinal: Yes: GERD, Other (obesity) Renal/: Yes: Renal Failure, Renal Inusuff, Hemodialysis, Other Endocrine: Yes: Diabetes Mellitus - Past Surgical History Past Surgical History: Yes: AV Fistula/Graft Additional Surgical History: Transmetatarsal ampuation left foot. - Alcohol/Substance Use Hx Alcohol Use: No - Smoking History Smoking history: Never smoked Have you smoked in the past 12 months: No Aproximately how many cigarettes per day: 0 - Social History ADL: Independent History of Recent Travel: No Home Medications - Allergies Allergies/Adverse Reactions: Allergies Allergy/AdvReac Type Severity Reaction Status Date / Time fish derived Allergy Severe Hives Verified 07/06/17 20:17 Shellfish Allergy Severe Verified 07/06/17 20:17 sulfamethoxazole Allergy Severe Swelling Verified 07/06/17 20:17 [From Bactrim DS] trimethoprim Allergy Severe Swelling Verified 07/06/17 20:17 [From Bactrim DS] - Home Medications Home Medications: Ambulatory Orders Omeprazole [Prilosec (RX)] 20 mg PO DAILY 08/13/14 Atorvastatin Ca [Lipitor] 80 mg PO HS 05/24/16 Ferrous Sulfate [Feosol] 1 tab PO DAILY 08/02/16 Albuterol Sulfate [Proair Respiclick] 90 mcg IH BID 11/13/16 Cholecalciferol (Vitamin D3) [Vitamin D3] 2,000 unit PO DAILY 11/13/16 Aspirin [ASA -] 81 mg PO DAILY #30 tab.chew 11/15/16 Glipizide 5 mg PO BID 04/19/17 Pregabalin [Lyrica -] 100 mg PO DAILY [facility] 50 mg 04/19/17 Calcium Acetate [Phoslo -] 1,334 mg PO TIDCM capsule 04/27/17 Docusate Sodium [Colace -] 100 mg PO TID PRN #90 capsule 04/27/17 Polyethylene Glycol 3350 [Miralax 119 gm Btl -] 17 gm PO DAILY bottle 04/27/17 Lorazepam [Ativan] 2 mg PO DAILY #30 tablet MDD 1 06/01/17 Carvedilol [Coreg -] 6.25 mg PO BID tablet 07/10/17 Oxycodone HCl 5 mg PO Q8H PRN #10 tablet [facility] 15 07/10/17 Torsemide [Demadex -] 80 mg PO MOWEFR tablet 07/10/17 Torsemide [Demadex -] 80 mg PO [facility] tablet 07/10/17 Family Disease History - Family Disease History Family Disease History: Heart Disease: Father ( of SANON at 43 ), CA: Mother ( Breast) Review of Systems - Review of Systems Constitutional: reports: Weakness Eyes: reports: Blurred Vision HENT: reports: No Symptoms Neck: reports: No Symptoms Cardiovascular: reports: Shortness of Breath Respiratory: reports: Exercise Intolerance, SOB on Exertion Gastrointestinal: reports: Bloating Genitourinary: reports: No Symptoms Breasts: reports: No Symptoms Reported Musculoskeletal: reports: Muscle Pain, Muscle Cramps Integumentary: reports: Rash Neurological: reports: Unsteady Gait, Weakness Endocrine: reports: Unexplained Weight Gain Physical Exam Vital Signs: Vital Signs Temperature 97.8 F 08/02/17 23:32 Pulse Rate 66 08/02/17 23:32 Respiratory Rate 20 08/02/17 23:32 Blood Pressure 152/76 08/02/17 23:32 O2 Sat by Pulse Oximetry (%) 96 08/02/17 09:00 Constitutional: Yes: Anxious Eyes: Yes: EOM Intact HENT: Yes: Normocephalic Neck: Yes: Trachea Midline Cardiovascular: Yes: Regular Rate and Rhythm Respiratory: Yes: CTA Bilaterally Gastrointestinal: Yes: Normal Bowel Sounds ...Rectal Exam: Yes: Deferred Renal/: Yes: WNL Breast(s): Yes: WNL Musculoskeletal: Yes: Back Pain, Muscle Weakness Extremities: Yes: Delayed Capillary Refill, Pallor Edema: Yes Wound/Incision: Yes: Draining Neurological: Yes: Alert, Oriented Labs: CBC, BMP 07/30/17 06:25 08/02/17 14:30 Problem List - Problems (1) COPD (chronic obstructive pulmonary disease) Code(s): J44.9 - CHRONIC OBSTRUCTIVE PULMONARY DISEASE, UNSPECIFIED (2) Cellulitis Code(s): L03.90 - CELLULITIS, UNSPECIFIED (3) Diabetes mellitus Code(s): E11.9 - TYPE 2 DIABETES MELLITUS WITHOUT COMPLICATIONS Qualifiers: Diabetes mellitus type: type 2 (4) Open wound of left foot Code(s): S91.302A - UNSPECIFIED OPEN WOUND, LEFT FOOT, INITIAL ENCOUNTER (5) Stasis edema with ulcer of left lower extremity Code(s): I87.312 - CHRONIC VENOUS HYPERTENSION W ULCER OF L LOW EXTREM (6) Abnormal EKG Code(s): R94.31 - ABNORMAL ELECTROCARDIOGRAM [ECG] [EKG] (7) Gangrene of toe of left foot Code(s): I96 - GANGRENE, NOT ELSEWHERE CLASSIFIED Assessment/Plan Current Active Problems COPD (chronic obstructive pulmonary disease) (Acute) Cellulitis (Acute) Diabetes mellitus (Acute) Open wound of left foot (Acute) PVD (peripheral vascular disease) (Chronic) Stasis edema with ulcer of left lower extremity (Chronic) Abnormal Lab Results 08/02/17 08/02/17 14:20 14:30 Chloride 108 H BUN 58 H D 23 H D Creatinine 8.7 H* D 4.0 H D Random Glucose 148 H D Calcium 8.1 L Laboratory Results - last 24 hr 08/02/17 08/02/17 08/02/17 06:40 11:23 14:20 Sodium 140 Potassium 4.6 Chloride 108 H Carbon Dioxide 23 Anion Gap 9 BUN 58 H D Creatinine 8.7 H* D POC Glucometer 84 113 Random Glucose 148 H D Calcium 8.1 L 08/02/17 08/02/17 14:30 17:14 Sodium Potassium Chloride Carbon Dioxide Anion Gap BUN 23 H D Creatinine 4.0 H D POC Glucometer 128 Random Glucose Calcium Laboratory Tests 05/23/17 13:02 Hemoglobin A1c % 6.2 H D plan: as clearance of oral Sulfonylurea will need different agent for glycemic controll continue bgm qid novolog insulin start januvia 25mg daily may add glimipiride 1 mg daily as well
[2017-08-03] MEDS ORDERED: PT OWN MED DRAWER 7, Y5N ONE ×2 (05:49→10:00)
[2017-08-03] MEDS: GLIMEPIRIDE 1 MG TABLET (FP) PO SCH (06:16)
[2017-08-03] MEDS: INSULIN SLIDING SCALE (NOVOLOG) 1 VIAL SQ SCH ×3 (06:16→16:13)
[2017-08-03] MEDS: HEPARIN NA (PORCINE) 5,000 UNITS/ML 1ML VIAL SQ SCH ×3 (06:16→21:52)
[2017-08-03] MEDS: sitaGLIPtin PHOSPHATE 25 MG TABLET (FP) PO SCH (06:16)
[2017-08-03 08:09] LABS: BASO % 2.8 % (0-2.0); EOS % 9.7 % (0-4.5); HEMATOCRIT 31.5 % (35.4-49); HEMOGLOBIN 10.3 GM/dL (11.7-16.9); LYMPH % 23.7 % (8-40); MCH 29.4 pg (25.7-33.7); MCHC 32.8 g/dl (32.0-35.9); MEAN CELL VOLUME 89.5 fl (80-96); MEAN PLT VOLUME 9.1 fl (7.5-11.1); MONO % 9.7 % (3.8-10.2); NEUT % 54.1 % (42.8-82.8); PLATELET COUNT 148 K/MM3 (134-434); RBC 3.52 M/mm3 (4.00-5.60); WHITE BLOOD COUNT 4.7 K/mm3 (4.0-10.0)
[2017-08-03 08:19] LABS: CHLORIDE 103 mmol/L (98-107); POTASSIUM 4.1 mmol/L (3.5-5.1); SODIUM 140 mmol/L (136-145)
[2017-08-03 08:34] LABS: BLOOD UREA NITROGEN 37 mg/dL (7-18)
[2017-08-03 08:55] LABS: ALBUMIN 2.7 g/dl (3.4-5.0); ALK PHOS 51 U/L (45-117); ANION GAP 6 (8-16); BILIRUBIN,TOTAL 0.6 mg/dL (0.2-1.0); CALCIUM 8.1 mg/dL (8.5-10.1); CO2 31 mmol/L (21-32); CREATININE 6.2 mg/dL (0.7-1.3); GLUCOSE,RANDOM 92 mg/dL (74-106); SGOT/AST 31 U/L (15-37); SGPT/ALT 34 U/L (12-78); TOT PROT 6.1 g/dl (6.4-8.2)
[2017-08-03] MEDS: CALCIUM ACETATE 667 MG CAPSULE (FP) PO SCH ×3 (09:22→16:32)
[2017-08-03] MEDS ORDERED: INSULIN (NOVOLOG) ASPART 100 UNITS/ML 10ML VIAL ONE (09:59)
[2017-08-03] MEDS: ERTAPENEM SODIUM 0.5 GM in SODIUM CHLORIDE 50 ML IVPB SCH (10:14)
[2017-08-03] MEDS: PREGABALIN 50 MG CAPSULE PO SCH (10:15)
[2017-08-03] MEDS: PANTOPRAZOLE 20 MG TABLET (FP) PO SCH (10:15)
[2017-08-03] MEDS: CARVEDILOL 6.25 MG TABLET (FP) PO SCH ×2 (10:15→21:53)
[2017-08-03] MEDS: ASPIRIN 81 MG CHEWABLE TABLETS PO SCH (10:15)
[2017-08-03] MEDS: CHOLECALCIFEROL (VITAMIN D3) 1,000 UNIT TABLET (FP) PO SCH (10:15)
[2017-08-03] MEDS: FERROUS SO4 325 MG TABLET (FP) PO SCH (10:15)
[2017-08-03] MEDS: ALBUTEROL SO4 18 GM HFA INHALER IH SCH ×2 (10:15→21:56)
[2017-08-03] MEDS: SODIUM HYPOCHLORITE 0.25%- 473 ML BULK BOTTLE TP SCH (10:16)
--- NOTE | 2017-08-03 10:35 | PN ---
Progress Note (short form) - Note Progress Note: Podiatry F/U: Seen/evaluated at bedside, NAD. Pain controlled, denies F/V/N/C/SOB/CP. S/p L bedside debridement of TMA stump ulcer. Afebrile, VSS. KEEGAN: L foot: lateral TMA stump ulcer with strong granular base at muscle belly, fibrotic area at periphery, no purulence, no fluctuance, no ascending cellulitis , no signs of infection. Sutures coapted medially. Imp: 57 year old DM, PVD M with L TMA stump ulcer 1. Saline wet to dry applied L foot 2. PT eval L foot partial weightbearing surgical shoe 3. Local wound care with wound vac 125 mmHg continuous with medium black foam changed 3x/week 4. Pt to f/u in wound healing center this Monday. Amarilis Alcantara DPM
--- NOTE | 2017-08-03 15:09 | PN ---
Progress Note, Physician History of Present Illness: Pt seen and examined at bedside. He is awake and alert. He denies shortness of breath. - Current Medication List Current Medications: Active Medications Albuterol Sulfate (Ventolin Hfa Inhaler -) 2 puff IH BID [facility] Last Admin: 08/03/17 10:15 Dose: 2 inhaler Aspirin (Asa -) 81 mg PO DAILY [facility] Last Admin: 08/03/17 10:15 Dose: 81 mg Atorvastatin Calcium (Lipitor -) 80 mg PO HS [facility] Last Admin: 08/02/17 21:53 Dose: 80 mg Calcium Acetate (Phoslo -) 1,334 mg PO TIDCM [facility] Last Admin: 08/03/17 11:50 Dose: 1,334 mg Carvedilol (Coreg -) 6.25 mg PO BID [facility] Last Admin: 08/03/17 10:15 Dose: 6.25 mg Cholecalciferol (Vitamin D3 -) 2,000 unit PO DAILY [facility] Last Admin: 08/03/17 10:15 Dose: 2,000 unit Docusate Sodium (Colace -) 200 mg PO HS [facility] Last Admin: 08/02/17 21:53 Dose: 200 mg Ferrous Sulfate (Feosol -) 325 mg PO DAILY [facility] Last Admin: 08/03/17 10:15 Dose: 325 mg Glimepiride (Amaryl -) 1 mg PO DAILY@0700 [facility] Last Admin: 08/03/17 06:16 Dose: Not Given Heparin Sodium (Porcine) (Heparin -) 5,000 unit SQ TID [facility] Last Admin: 08/03/17 06:16 Dose: 5,000 unit Ertapenem 0.5 gm/ Sodium (Chloride) 50 mls @ 100 mls/hr IVPB DAILY [facility]; Protocol Last Admin: 08/03/17 10:14 Dose: 100 mls/hr Insulin Aspart (Novolog Vial Sliding Scale -) 1 vial SQ TIDAC [facility]; Protocol Last Admin: 08/03/17 10:22 Dose: 2 unit Oxycodone HCl (Roxicodone -) 5 mg PO Q8H PRN PRN Reason: PAIN LEVEL 6-10 Last Admin: 08/01/17 22:37 Dose: 5 mg Pantoprazole Sodium (Protonix -) 20 mg PO DAILY [facility] Last Admin: 08/03/17 10:15 Dose: 20 mg Pregabalin (Lyrica -) 100 mg PO DAILY [facility] Last Admin: 08/03/17 10:15 Dose: 100 mg Sitagliptin Phosphate (Januvia -) 25 mg PO DAILY@0700 [facility] Last Admin: 08/03/17 06:16 Dose: 25 mg Sodium Hypochlorite (Dakin's Solution 0.25% (Half-Strength) -) 1 applic TP DAILY [facility] Last Admin: 08/03/17 10:16 Dose: 1 applic Torsemide (Demadex -) 80 mg PO MoWeFr@599 [facility] Last Admin: 08/02/17 06:41 Dose: 80 mg Torsemide (Demadex -) 80 mg PO Chapa@06 [facility] Last Admin: 07/30/17 06:49 Dose: 80 mg - Objective Vital Signs: Vital Signs Temperature 98.8 F 08/03/17 14:00 Pulse Rate 69 08/03/17 14:00 Respiratory Rate 22 08/03/17 14:00 Blood Pressure 113/63 08/03/17 14:00 O2 Sat by Pulse Oximetry (%) 96 08/03/17 08:00 Constitutional: Yes: Calm Eyes: Yes: Conjunctiva Clear HENT: Yes: Atraumatic Neck: Yes: Supple Cardiovascular: Yes: S1, S2 Respiratory: Yes: CTA Bilaterally Gastrointestinal: Yes: Soft, Abdomen, Obese Genitourinary: Yes: WNL Edema: Yes Edema: LLE: 1+, RLE: 1+ Integumentary: Yes: Venous Stasis Changes Wound/Incision: Yes: Dressing Dry and Intact Neurological: Yes: Oriented Psychiatric: Yes: Oriented Labs: CBC, BMP 08/03/17 07:00 08/03/17 07:00 Problem List - Problems (1) COPD (chronic obstructive pulmonary disease) Code(s): J44.9 - CHRONIC OBSTRUCTIVE PULMONARY DISEASE, UNSPECIFIED (2) Cellulitis Code(s): L03.90 - CELLULITIS, UNSPECIFIED (3) Diabetes mellitus Code(s): E11.9 - TYPE 2 DIABETES MELLITUS WITHOUT COMPLICATIONS Qualifiers: Diabetes mellitus type: type 2 (4) ESRD (end stage renal disease) Code(s): N18.6 - END STAGE RENAL DISEASE Assessment/Plan Current Medications Generic Name Dose Route Start Last Admin Trade Name Freq PRN Reason Stop Dose Admin Albuterol Sulfate 2 puff 07/30/17 10:00 08/03/17 10:15 Ventolin Hfa Inhaler - IH 2 inhaler BID [facility] Administration Aspirin 81 mg 07/30/17 10:00 08/03/17 10:15 Asa - PO 81 mg DAILY [facility] Administration Atorvastatin Calcium 80 mg 07/30/17 22:00 08/02/17 21:53 Lipitor - PO 80 mg HS [facility] Administration Calcium Acetate 1,334 mg 07/30/17 08:00 08/03/17 11:50 Phoslo - PO 1,334 mg TIDCM [facility] Administration Carvedilol 6.25 mg 07/30/17 10:00 08/03/17 10:15 Coreg - PO 6.25 mg BID [facility] Administration Cholecalciferol 2,000 unit 07/30/17 10:00 08/03/17 10:15 Vitamin D3 - PO 2,000 unit DAILY [facility] Administration Docusate Sodium 200 mg 08/02/17 22:00 08/02/17 21:53 Colace - PO 200 mg HS [facility] Administration Ferrous Sulfate 325 mg 07/30/17 10:00 08/03/17 10:15 Feosol - PO 325 mg DAILY [facility] Administration Glimepiride 1 mg 08/03/17 07:00 08/03/17 06:16 Amaryl - PO Not Given DAILY@0700 [facility] Heparin Sodium (Porcine) 5,000 unit 07/30/17 06:00 08/03/17 06:16 Heparin - SQ 5,000 unit TID [facility] Administration Ertapenem 0.5 gm/ Sodium 50 mls @ 100 mls/hr 07/30/17 11:45 08/03/17 10:14 Chloride IVPB 100 mls/hr DAILY [facility] Administration Protocol Insulin Aspart 1 vial 07/30/17 07:00 08/03/17 10:22 Novolog Vial Sliding Scale - SQ 2 unit TIDAC [facility] Administration Protocol Oxycodone HCl 5 mg 07/30/17 06:08 08/01/17 22:37 Roxicodone - PO 5 mg Q8H PRN Administration PAIN LEVEL 6-10 Pantoprazole Sodium 20 mg 07/30/17 10:00 08/03/17 10:15 Protonix - PO 20 mg DAILY [facility] Administration Pregabalin 100 mg 07/30/17 10:00 08/03/17 10:15 Lyrica - PO 100 mg DAILY [facility] Administration Sitagliptin Phosphate 25 mg 08/03/17 07:00 08/03/17 06:16 Januvia - PO 25 mg DAILY@0700 [facility] Administration Sodium Hypochlorite 1 applic 07/30/17 10:00 08/03/17 10:16 Dakin's Solution 0.25% (Half-Strength) - TP 1 applic DAILY [facility] Administration Torsemide 80 mg 07/31/17 06:00 08/02/17 06:41 Demadex - PO 80 mg MoWeFr@0600 [facility] Administration Torsemide 80 mg 07/30/17 06:45 07/30/17 06:49 Demadex - PO 80 mg Chapa@0600 [facility] Administration Impression 1. ESRD 2. anemia 3. HTN 4. morbid obesity 5. CVA 6. hyperlipidemia 7. proteinuria - nephrotic 8. PVD 9. foot ulcer Plan - HD again today to get pt back on schedule - cont wound care - monitor bp - will follow Dr Win
[2017-08-03] MEDS ORDERED: SODIUM CHLORIDE 250 ML IV PRN (15:24)
--- NOTE | 2017-08-03 16:03 | PN ---
Progress Note (short form) - Note Progress Note: doing well on HD dressing change by odiatrist today- wound is clean Vital Signs Period Temp Pulse Resp BP Sys/Leon Pulse Ox Last 24 Hr 97.8 F-98.8 F 63-79 18-22 113-170/63-83 96-96 cor-rrr lungs clear abd soft,nt ext dressing intact left foot CBC, BMP 08/03/17 07:00 08/03/17 07:00 Laboratory Tests 07/29/17 07/29/17 22:16 22:16 ESR 33 H C-Reactive Protein < 0.3 a/p 57 yo diabetic man on HD s/p TMA 06/27 wound dehiscence that had vac placed on Monday at wound care admitted with nonfunctioning VAC and worsening erythema and drainage of the wound wound is clean no drainage or erythema per senior controls technician will d/c antibiotics please call back if needed Problem List - Problems (1) Open wound of left foot Code(s): S91.302A - UNSPECIFIED OPEN WOUND, LEFT FOOT, INITIAL ENCOUNTER (2) Cellulitis Code(s): L03.90 - CELLULITIS, UNSPECIFIED (3) ESRD (end stage renal disease) Code(s): N18.6 - END STAGE RENAL DISEASE (4) DM type 2, uncontrolled, with renal complications Code(s): E11.29 - TYPE 2 DIABETES MELLITUS W OTH DIABETIC KIDNEY COMPLICATION; E11.65 - TYPE 2 DIABETES MELLITUS WITH HYPERGLYCEMIA Qualifiers: Diabetes mellitus complication detail: with chronic kidney disease
[2017-08-03] MEDS ORDERED: EPOETIN ALFA 3,000 UNIT/1 ML ML IVPUSH ONE (16:30)
[2017-08-03] MEDS: DOCUSATE SODIUM 100 MG CAPSULE (FP) PO SCH (21:52)
[2017-08-03] MEDS: ATORVASTATIN CA 80 MG TABLET (FP) PO SCH (21:53)
--- NOTE | 2017-08-03 22:07 | PN ---
Progress Note, Physician Chief Complaint: Diabetic foot ulcer History of Present Illness: NAD in bed Walks to the bathroom with walker Left foot dressing intact with drainage, had bedside debridement by podiatry Wound vac at bedside, not being used yet Seen by ID IV abx discontinued - Current Medication List Current Medications: Active Medications Albuterol Sulfate (Ventolin Hfa Inhaler -) 2 puff IH BID [facility] Last Admin: 08/03/17 21:56 Dose: 2 inhaler Aspirin (Asa -) 81 mg PO DAILY [facility] Last Admin: 08/03/17 10:15 Dose: 81 mg Atorvastatin Calcium (Lipitor -) 80 mg PO HS [facility] Last Admin: 08/03/17 21:53 Dose: 80 mg Calcium Acetate (Phoslo -) 1,334 mg PO TIDCM [facility] Last Admin: 08/03/17 16:32 Dose: Not Given Carvedilol (Coreg -) 6.25 mg PO BID [facility] Last Admin: 08/03/17 21:53 Dose: 6.25 mg Cholecalciferol (Vitamin D3 -) 2,000 unit PO DAILY [facility] Last Admin: 08/03/17 10:15 Dose: 2,000 unit Docusate Sodium (Colace -) 200 mg PO HS [facility] Last Admin: 08/03/17 21:52 Dose: 200 mg Ferrous Sulfate (Feosol -) 325 mg PO DAILY [facility] Last Admin: 08/03/17 10:15 Dose: 325 mg Glimepiride (Amaryl -) 1 mg PO DAILY@0700 [facility] Last Admin: 08/03/17 06:16 Dose: Not Given Heparin Sodium (Porcine) (Heparin -) 5,000 unit SQ TID [facility] Last Admin: 08/03/17 21:52 Dose: 5,000 unit Sodium Chloride (Normal Saline -) 250 mls @ 3,000 mls/hr IV PRN PRN PRN Reason: Hypotension during Dialysis Stop: 08/04/17 15:23 Insulin Aspart (Novolog Vial Sliding Scale -) 1 vial SQ TIDAC [facility]; Protocol Last Admin: 08/03/17 16:13 Dose: Not Given Oxycodone HCl (Roxicodone -) 5 mg PO Q8H PRN PRN Reason: PAIN LEVEL 6-10 Last Admin: 08/01/17 22:37 Dose: 5 mg Pantoprazole Sodium (Protonix -) 20 mg PO DAILY [facility] Last Admin: 08/03/17 10:15 Dose: 20 mg Pregabalin (Lyrica -) 100 mg PO DAILY [facility] Last Admin: 08/03/17 10:15 Dose: 100 mg Sitagliptin Phosphate (Januvia -) 25 mg PO DAILY@0700 [facility] Last Admin: 08/03/17 06:16 Dose: 25 mg Sodium Hypochlorite (Dakin's Solution 0.25% (Half-Strength) -) 1 applic TP DAILY [facility] Last Admin: 08/03/17 10:16 Dose: 1 applic Torsemide (Demadex -) 80 mg PO MoWeFr@06 [facility] Last Admin: 08/02/17 06:41 Dose: 80 mg Torsemide (Demadex -) 80 mg PO Chapa@599 [facility] Last Admin: 07/30/17 06:49 Dose: 80 mg - Objective Vital Signs: Vital Signs Temperature 98.8 F 08/03/17 14:00 Pulse Rate 75 08/03/17 19:00 Respiratory Rate 18 08/03/17 19:00 Blood Pressure 127/62 08/03/17 19:00 O2 Sat by Pulse Oximetry (%) 96 08/03/17 08:00 Constitutional: Yes: Well Nourished, No Distress, Calm Cardiovascular: Yes: Regular Rate and Rhythm Respiratory: Yes: Regular Gastrointestinal: Yes: Normal Bowel Sounds, Soft, Abdomen, Obese Musculoskeletal: Yes: Muscle Weakness Wound/Incision: Yes: Dressing Dry and Intact Neurological: Yes: Alert, Oriented Psychiatric: Yes: Alert, Oriented Labs: CBC, BMP 08/03/17 07:00 08/03/17 07:00 Problem List - Problems (1) Cellulitis Assessment/Plan: -ID consult -IV Ertapenum dc'd -Podiatry consult -Wound care -Wound vac to be initiated at [facility] -Oxycodone 5 mg po Q8hPRN Code(s): L03.90 - CELLULITIS, UNSPECIFIED (2) PVD (peripheral vascular disease) Assessment/Plan: -Vascular consult Code(s): I73.9 - PERIPHERAL VASCULAR DISEASE, UNSPECIFIED (3) Anemia Assessment/Plan: -2/2 ESRD, was iron deficient as well -Venofer x 1 -Monitor H/H -Stool OB on 06/10/17 was negative Code(s): D64.9 - ANEMIA, UNSPECIFIED Qualifiers: Anemia type: unspecified type Qualified Code(s): D64.9 - Anemia, unspecified (4) ESRD (end stage renal disease) Assessment/Plan: -nephrology on board -HD on TTS Code(s): N18.6 - END STAGE RENAL DISEASE (5) Diabetes mellitus Assessment/Plan: -BGM ACHS -Controlled with dietary modification -Last A1c 6.2 in May 2017 -was on glipizide, complains his blood sugars were dropping in 40's -started on glimepride and Januvia -RD consult -Endocrinology consult Code(s): E11.9 - TYPE 2 DIABETES MELLITUS WITHOUT COMPLICATIONS Qualifiers: Diabetes mellitus type: type 2 Assessment/Plan see problem list DVT prophylaxis physical therapy-contact guard of 1
[2017-08-03] MEDS: oxyCODONE HCL 5 MG TABLET PO PRN (23:27)
[2017-08-04] MEDS ORDERED: PT OWN MED DRAWER 7, Y5N ONE ×3 (05:50→09:08)
[2017-08-04 06:11] LABS: HBSAG SCREEN Negative (Negative); HEP B CORE AB, TOT Negative (Negative)
[2017-08-04] MEDS: TORSEMIDE 20 MG TABLET (FP) PO SCH (06:17)
[2017-08-04] MEDS: HEPARIN NA (PORCINE) 5,000 UNITS/ML 1ML VIAL SQ SCH ×2 (06:17→13:36)
[2017-08-04] MEDS: GLIMEPIRIDE 1 MG TABLET (FP) PO SCH (06:17)
[2017-08-04] MEDS: sitaGLIPtin PHOSPHATE 25 MG TABLET (FP) PO SCH (06:19)
[2017-08-04] MEDS: INSULIN SLIDING SCALE (NOVOLOG) 1 VIAL SQ SCH ×2 (06:28→10:50)
[2017-08-04 08:07] LABS: BASO % 3.8 % (0-2.0); EOS % 10.4 % (0-4.5); HEMATOCRIT 32.3 % (35.4-49); HEMOGLOBIN 10.7 GM/dL (11.7-16.9); LYMPH % 28.3 % (8-40); MCH 29.4 pg (25.7-33.7); MCHC 33.2 g/dl (32.0-35.9); MEAN CELL VOLUME 88.5 fl (80-96); MEAN PLT VOLUME 8.7 fl (7.5-11.1); MONO % 14.3 % (3.8-10.2); NEUT % 43.2 % (42.8-82.8); PLATELET COUNT 132 K/MM3 (134-434); RBC 3.65 M/mm3 (4.00-5.60); RDW 16.1 % (11.9-15.9)
[2017-08-04 08:54] LABS: ALBUMIN 2.9 g/dl (3.4-5.0); ANION GAP 5 (8-16); BLOOD UREA NITROGEN 35 mg/dL (7-18); CALCIUM 8.3 mg/dL (8.5-10.1); CHLORIDE 101 mmol/L (98-107); CO2 34 mmol/L (21-32); GLUCOSE,RANDOM 91 mg/dL (74-106); SODIUM 140 mmol/L (136-145)
[2017-08-04 09:14] LABS: ALK PHOS 51 U/L (45-117); BILIRUBIN,TOTAL 0.5 mg/dL (0.2-1.0); CREATININE 5.9 mg/dL (0.7-1.3); SGOT/AST 31 U/L (15-37); SGPT/ALT 33 U/L (12-78); TOT PROT 6.3 g/dl (6.4-8.2)
[2017-08-04] MEDS: ASPIRIN 81 MG CHEWABLE TABLETS PO SCH (09:17)
[2017-08-04] MEDS: FERROUS SO4 325 MG TABLET (FP) PO SCH (09:17)
[2017-08-04] MEDS: CALCIUM ACETATE 667 MG CAPSULE (FP) PO SCH ×2 (09:17→11:58)
[2017-08-04] MEDS: PANTOPRAZOLE 20 MG TABLET (FP) PO SCH (09:17)
[2017-08-04] MEDS: CARVEDILOL 6.25 MG TABLET (FP) PO SCH (09:17)
[2017-08-04] MEDS: PREGABALIN 50 MG CAPSULE PO SCH (09:17)
[2017-08-04] MEDS: CHOLECALCIFEROL (VITAMIN D3) 1,000 UNIT TABLET (FP) PO SCH (09:17)
[2017-08-04] MEDS: ALBUTEROL SO4 18 GM HFA INHALER IH SCH (09:18)
[2017-08-04] MEDS: SODIUM HYPOCHLORITE 0.25%- 473 ML BULK BOTTLE TP SCH (09:20)
--- NOTE | 2017-08-04 13:01 | DS ---
Physical Examination Vital Signs: Vital Signs Temperature 97.9 F 08/04/17 08:00 Pulse Rate 68 08/04/17 08:00 Respiratory Rate 20 08/04/17 08:00 Blood Pressure 119/66 08/04/17 08:00 O2 Sat by Pulse Oximetry (%) 96 08/04/17 08:00 Findings/Remarks: NAD, Antibiotics discontinue Debridement done by Podiatry this admission Constitutional: Yes: Well Nourished, No Distress, Calm Cardiovascular: Yes: Regular Rate and Rhythm Respiratory: Yes: Regular Gastrointestinal: Yes: Normal Bowel Sounds, Soft, Abdomen, Obese Musculoskeletal: Yes: WNL Extremities: Yes: WNL Wound/Incision: Yes: Dressing Dry and Intact Neurological: Yes: Alert, Oriented Psychiatric: Yes: Alert, Oriented Labs: CBC, BMP 08/04/17 07:30 08/04/17 07:30 Discharge Summary Reason For Visit: PVD STASIS EDEMA W ULCER OF LLE Current Active Problems COPD (chronic obstructive pulmonary disease) (Acute) Cellulitis (Acute) Diabetes mellitus (Acute) Open wound of left foot (Acute) PVD (peripheral vascular disease) (Chronic) Stasis edema with ulcer of left lower extremity (Chronic) Hospital Course: This is a 57 y/o man with a past medical history of ESRD (,, ), HTN, HLD, DM, CVA x2, COPD, HOLLY, Anemia, Asthma, PVD, CVAx2(w/LLE residual weakness). Who presents to the ED with left foot pain and odor. 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 The patient reports hospital stay for a week, discharged followed by daily dressing [facility] at [facility]. The patient reports hes been on vacuum wound drainage since Monday. The patient reports having an appointment for vacuum drainage yesterday but reports was unable to have the procedure due to the machine malfunction. The patient reports increased redness and pain to the left foot since this morning. Patient denies fever, chills. Patient denies numbness or loss of sensation. Follow up with Dr Alcantara on 08/08/17 PT L foot partial weightbearing surgical shoe Local wound care with wound vac 125 mmHg continuous with medium black foam changed 3x/week MWF Condition: Stable - Instructions Diet, Activity, Other Instructions: Follow up with Dr Alcantara on 08/08/17 PT L foot partial weightbearing surgical shoe Local wound care with wound vac 125 mmHg continuous with medium black foam changed 3x/week Referrals: Balaji Alcantara MD [Staff Physician] - Disposition: SNF FACILITY - Home Medications Comprehensive Discharge Medication List: Ambulatory Orders Omeprazole [Prilosec (RX)] 20 mg PO DAILY 08/13/14 Atorvastatin Ca [Lipitor] 80 mg PO HS 05/24/16 Ferrous Sulfate [Feosol] 1 tab PO DAILY 08/02/16 Albuterol Sulfate [Proair Respiclick] 90 mcg IH BID 11/13/16 Cholecalciferol (Vitamin D3) [Vitamin D3] 2,000 unit PO DAILY 11/13/16 Aspirin [ASA -] 81 mg PO DAILY #30 tab.chew 11/15/16 Pregabalin [Lyrica -] 100 mg PO DAILY [facility] 50 mg 04/19/17 Calcium Acetate [Phoslo -] 1,334 mg PO TIDCM capsule 04/27/17 Docusate Sodium [Colace -] 100 mg PO TID PRN #90 capsule 04/27/17 Polyethylene Glycol 3350 [Miralax 119 gm Btl -] 17 gm PO DAILY bottle 04/27/17 Lorazepam [Ativan] 2 mg PO DAILY #30 tablet [facility] 1 06/01/17 Carvedilol [Coreg -] 6.25 mg PO BID tablet 07/10/17 Oxycodone HCl 5 mg PO Q8H PRN #10 tablet [facility] 15 07/10/17 Torsemide [Demadex -] 80 mg PO MOWEFR tablet 07/10/17 Torsemide [Demadex -] 80 mg PO PETERS tablet 07/10/17 Glimepiride [Glimepiride -] 1 mg PO DAILY@0700 tablet 08/03/17 Heparin - 5,000 unit SQ BID vial 08/03/17 Insulin Sliding Scale [Novolog Vial Sliding Scale -] 1 vial SQ TIDAC units Sitagliptin Phosphate [Januvia -] 25 mg PO DAILY@0700 tab 08/03/17 Sodium Hypochlorite [Dakin's Solution 0.25% (Half-Strength) -] 1 applic TP DAILY ml 08/03/17 oxyCODONE HCL [Roxicodone -] 5 mg PO Q8H PRN tablet MDD 3 08/03/17
[2017-08-04 14:51] VITALS: BP 119/68; PULSE 85; TEMP 98.4
--- NOTE | 2017-08-04 16:09 | PN ---
Progress Note, Physician History of Present Illness: Pt seen and examined at bedside. He may be transferred to rehab today. He denies fevers or chills. - Current Medication List Current Medications: Active Medications Albuterol Sulfate (Ventolin Hfa Inhaler -) 2 puff IH BID [facility] Last Admin: 08/04/17 09:18 Dose: 2 inhaler Aspirin (Asa -) 81 mg PO DAILY [facility] Last Admin: 08/04/17 09:17 Dose: 81 mg Atorvastatin Calcium (Lipitor -) 80 mg PO [facility] Last Admin: 08/03/17 21:53 Dose: 80 mg Calcium Acetate (Phoslo -) 1,334 mg PO TIDCM [facility] Last Admin: 08/04/17 11:58 Dose: 1,334 mg Carvedilol (Coreg -) 6.25 mg PO BID [facility] Last Admin: 08/04/17 09:17 Dose: 6.25 mg Cholecalciferol (Vitamin D3 -) 2,000 unit PO DAILY [facility] Last Admin: 08/04/17 09:17 Dose: 2,000 unit Docusate Sodium (Colace -) 200 mg PO [facility] Last Admin: 08/03/17 21:52 Dose: 200 mg Ferrous Sulfate (Feosol -) 325 mg PO DAILY [facility] Last Admin: 08/04/17 09:17 Dose: 325 mg Glimepiride (Amaryl -) 1 mg PO DAILY@0700 [facility] Last Admin: 08/04/17 06:17 Dose: Not Given Heparin Sodium (Porcine) (Heparin -) 5,000 unit SQ TID [facility] Last Admin: 08/04/17 13:36 Dose: 5,000 unit Insulin Aspart (Novolog Vial Sliding Scale -) 1 vial SQ TIDAC [facility]; Protocol Last Admin: 08/04/17 10:50 Dose: Not Given Pantoprazole Sodium (Protonix -) 20 mg PO DAILY [facility] Last Admin: 08/04/17 09:17 Dose: 20 mg Pregabalin (Lyrica -) 100 mg PO DAILY [facility] Last Admin: 08/04/17 09:17 Dose: 100 mg Sitagliptin Phosphate (Januvia -) 25 mg PO DAILY@0700 [facility] Last Admin: 08/04/17 06:19 Dose: 25 mg Sodium Hypochlorite (Dakin's Solution 0.25% (Half-Strength) -) 1 applic TP DAILY [facility] Last Admin: 08/04/17 09:20 Dose: Not Given Torsemide (Demadex -) 80 mg PO MoWeFr@599 [facility] Last Admin: 08/04/17 06:17 Dose: 80 mg Torsemide (Demadex -) 80 mg PO Chapa@0600 [facility] Last Admin: 07/30/17 06:49 Dose: 80 mg - Objective Vital Signs: Vital Signs Temperature 98.4 F 08/04/17 14:47 Pulse Rate 85 08/04/17 14:47 Respiratory Rate 20 08/04/17 14:47 Blood Pressure 119/68 08/04/17 14:47 O2 Sat by Pulse Oximetry (%) 96 08/04/17 08:00 Constitutional: Yes: Calm Eyes: Yes: Conjunctiva Clear HENT: Yes: Atraumatic Cardiovascular: Yes: S1, S2 Respiratory: Yes: CTA Bilaterally Gastrointestinal: Yes: Normal Bowel Sounds, Soft, Abdomen, Obese Genitourinary: Yes: WNL Edema: Yes Edema: LLE: 1+, RLE: 1+ Wound/Incision: Yes: Dressing Dry and Intact Neurological: Yes: Oriented Psychiatric: Yes: Oriented Labs: CBC, BMP 08/04/17 07:30 08/04/17 07:30 Problem List - Problems (1) COPD (chronic obstructive pulmonary disease) Code(s): J44.9 - CHRONIC OBSTRUCTIVE PULMONARY DISEASE, UNSPECIFIED (2) Cellulitis Code(s): L03.90 - CELLULITIS, UNSPECIFIED (3) Diabetes mellitus Code(s): E11.9 - TYPE 2 DIABETES MELLITUS WITHOUT COMPLICATIONS Qualifiers: Diabetes mellitus type: type 2 (4) ESRD (end stage renal disease) Code(s): N18.6 - END STAGE RENAL DISEASE Assessment/Plan Current Medications Generic Name Dose Route Start Last Admin Trade Name Freq PRN Reason Stop Dose Admin Albuterol Sulfate 2 puff 07/30/17 10:00 08/04/17 09:18 Ventolin Hfa Inhaler - IH 2 inhaler BID [facility] Administration Aspirin 81 mg 07/30/17 10:00 08/04/17 09:17 Asa - PO 81 mg DAILY [facility] Administration Atorvastatin Calcium 80 mg 07/30/17 22:00 08/03/17 21:53 Lipitor - PO 80 mg HS [facility] Administration Calcium Acetate 1,334 mg 07/30/17 08:00 08/04/17 11:58 Phoslo - PO 1,334 mg TIDCM [facility] Administration Carvedilol 6.25 mg 07/30/17 10:00 08/04/17 09:17 Coreg - PO 6.25 mg BID [facility] Administration Cholecalciferol 2,000 unit 07/30/17 10:00 08/04/17 09:17 Vitamin D3 - PO 2,000 unit DAILY [facility] Administration Docusate Sodium 200 mg 08/02/17 22:00 08/03/17 21:52 Colace - PO 200 mg HS [facility] Administration Ferrous Sulfate 325 mg 07/30/17 10:00 08/04/17 09:17 Feosol - PO 325 mg DAILY [facility] Administration Glimepiride 1 mg 08/03/17 07:00 08/04/17 06:17 Amaryl - PO Not Given DAILY@0700 [facility] Heparin Sodium (Porcine) 5,000 unit 07/30/17 06:00 08/04/17 13:36 Heparin - SQ 5,000 unit TID [facility] Administration Insulin Aspart 1 vial 07/30/17 07:00 08/04/17 10:50 Novolog Vial Sliding Scale - SQ [facility] Protocol Pantoprazole Sodium 20 mg 07/30/17 10:00 08/04/17 09:17 Protonix - PO 20 mg DAILY [facility] Administration Pregabalin 100 mg 07/30/17 10:00 08/04/17 09:17 Lyrica - PO 100 mg DAILY [facility] Administration Sitagliptin Phosphate 25 mg 08/03/17 07:00 08/04/17 06:19 Januvia - PO 25 mg DAILY@0700 [facility] Administration Sodium Hypochlorite 1 applic 07/30/17 10:00 08/04/17 09:20 Dakin's Solution 0.25% (Half-Strength) - TP Not Given DAILY [facility] Torsemide 80 mg 07/31/17 06:00 08/04/17 06:17 Demadex - PO 80 mg MoWeFr@0600 [facility] Administration Torsemide 80 mg 07/30/17 06:45 07/30/17 06:49 Demadex - PO 80 mg Chapa@0600 [facility] Administration Impression 1. ESRD 2. anemia 3. HTN 4. morbid obesity 5. CVA 6. hyperlipidemia 7. proteinuria - nephrotic 8. PVD 9. foot ulcer Plan - HD scheduled as outpt tomorrow - will dialyze inpt if not discharged - will need follow up with podiatry - cont wound care - monitor bp - will follow Dr Win
== END 2017-08-04 16:10 | DRG 500 ==
LOC: JER 20:28 → JERBED 23:34 → J6S 07-30 01:40
PROVIDERS: ADMIT Internal Medicine; ATTEND Family Medicine
PROC: 0KBW0ZZ Excision of Left Foot Muscle, Open Approach (ICD-10-PCS; principal; 2017-08-01)
PROC: 5A1D70Z Performance of Urinary Filtration, Intermittent, Less than 6 Hours Per Day (ICD-10-PCS; 2017-08-01)
DX: T87.81 Dehiscence of amputation stump (principal); N18.6 End stage renal disease; I12.0 Hypertensive chronic kidney disease with stage 5 chronic kidney disease or end stage renal disease; I69.354 Hemiplegia and hemiparesis following cerebral infarction affecting left non-dominant side; L97.929 Non-pressure chronic ulcer of unspecified part of left lower leg with unspecified severity; Z68.41 Body mass index [BMI] 40.0-44.9, adult; L03.116 Cellulitis of left lower limb; D64.9 Anemia, unspecified; J44.9 Chronic obstructive pulmonary disease, unspecified; E11.22 Type 2 diabetes mellitus with diabetic chronic kidney disease; Z99.2 Dependence on renal dialysis; E11.51 Type 2 diabetes mellitus with diabetic peripheral angiopathy without gangrene; Z91.013 Allergy to seafood; Z79.84 Long term (current) use of oral hypoglycemic drugs; G47.33 Obstructive sleep apnea (adult) (pediatric); I87.2 Venous insufficiency (chronic) (peripheral); E11.40 Type 2 diabetes mellitus with diabetic neuropathy, unspecified; E66.01 Morbid (severe) obesity due to excess calories; E11.621 Type 2 diabetes mellitus with foot ulcer; L97.529 Non-pressure chronic ulcer of other part of left foot with unspecified severity; Y83.8 Other surgical procedures as the cause of abnormal reaction of the patient, or of later complication, without mention of misadventure at the time of the procedure
CPT/HCPCS: 36415; 73630-TC-LT; 80048; 80053; 82565; 82962; 84520; 85025; 85651; 86140; 86704; 86706; 86708; 87340; 97116-GP; 97161-GP; 99283-25; G0480; J0885; J1644

== ENCOUNTER 2017-08-08 18:44 | Inpatient (IN) | payer OTHER ==
--- NOTE | 2017-08-08 20:53 | PDOC ---
History of Present Illness <Janeen Katz - Last Filed: 08/08/17 22:23> - History of Present Illness Initial Comments: 08/08/17 20:46 "The patient is a 57 year old male, with a significant past medical history of anemia, asthma, COPD, diabetes, HTN, ESRD (on HD TTS), PVD, CVAx2 (w/LLE residual weakness), who presents to the emergency department via EMS from [facility] for a psychiatric evaluation. As per patient, he has intense frustration having been in and out of various nursing homes since May. He reports being discharged from [facility] a week ago. He is at [facility] s/p multiple toe amputations. At the rehabilitation center the patient reports he is on isolation and does minimal rehabilitation exercises. He felt frustrated with his experience and expressed suicidal ideation to staff members four hours ago. He described that he wanted to take a gun and "blow his brains out". The patient denies owning a gun and reports he was speaking solely out of frustration. The patient reports that he just wanted to go home, because he is tired of being confined to his room. After my initial evaluation of pt, the patient was overheard calling a friend and asking them to bring his pistol to the rehab center so that he could shoot the staff members. This conversation was overheard by a nursing associate and RN. When confronted regarding this phone conversation, pt states that he does not have any intention to kill anyone. He states he would simply "shoot someone in the foot" to get himself out of the usp. Allergies: Fish derived, shellfish, Sulfamethoxazole, trimethoprim. Past surgical history: Gastric bypass. Social History: Nonsmoker. Denies EtOH use and recreational drug use. Primary Care Physician: Dr. Hai Davis. Podiatry: Dr. Balaji Alcantara. " <Dominic Liu - Last Filed: 08/08/17 22:57> - General Chief Complaint: Psychiatric Stated Complaint: Psychiatric Time Seen by Provider: 08/08/17 20:00 Past History <Janeen Katz - Last Filed: 08/08/17 22:23> - Past Medical History Anemia: Yes Asthma: Yes Cancer: No Cardiac Disorders: Yes (ANGINA) CVA: Yes (X 2) COPD: Yes CHF: Yes Dementia: No Diabetes: Yes Dialysis: No GI Disorders: No Disorders: No HTN: Yes Hypercholesterolemia: Yes Liver Disease: No Seizures: No Thyroid Disease: No - Surgical History Abdominal Surgery: Yes (gastric bypass 05/05/14) Appendectomy: No Cardiac Surgery: No Cholecystectomy: No Lung Surgery: No Neurologic Surgery: No Orthopedic Surgery: Yes - Immunization History Immunization Up to Date: Yes - Suicide/Smoking/Psychosocial Hx Smoking Status: No Smoking History: Never smoked Have you smoked in the past 12 months: No Number of Cigarettes Smoked Daily: 0 Hx Alcohol Use: No Drug/Substance Use Hx: No Substance Use Type: None Hx Substance Use Treatment: No <Dominic Liu - Last Filed: 08/08/17 22:57> - Past Medical History Allergies/Adverse Reactions: Allergies Allergy/AdvReac Type Severity Reaction Status Date / Time fish derived Allergy Severe Hives Verified 08/08/17 19:12 Shellfish Allergy Severe Verified 08/08/17 19:12 sulfamethoxazole Allergy Severe Swelling Verified 08/08/17 19:12 [From Bactrim DS] trimethoprim Allergy Severe Swelling Verified 08/08/17 19:12 [From Bactrim DS] Home Medications: Ambulatory Orders Omeprazole [Prilosec (RX)] 20 mg PO DAILY 08/13/14 Atorvastatin Ca [Lipitor] 80 mg PO HS 05/24/16 Ferrous Sulfate [Feosol] 1 tab PO DAILY 08/02/16 Albuterol Sulfate [Proair Respiclick] 90 mcg IH BID 11/13/16 Cholecalciferol (Vitamin D3) [Vitamin D3] 2,000 unit PO DAILY 11/13/16 Aspirin [ASA -] 81 mg PO DAILY #30 tab.chew 11/15/16 Pregabalin [Lyrica -] 100 mg PO DAILY MDD 50 mg 04/19/17 Calcium Acetate [Phoslo -] 1,334 mg PO TIDCM capsule 04/27/17 Polyethylene Glycol 3350 [Miralax 119 gm Btl -] 17 gm PO DAILY bottle 04/27/17 Carvedilol [Coreg -] 6.25 mg PO BID tablet 07/10/17 Oxycodone HCl 5 mg PO Q8H PRN #10 tablet MDD 15 07/10/17 Torsemide [Demadex -] 80 mg PO MOWEFR tablet 07/10/17 Glimepiride [Glimepiride -] 1 mg PO DAILY@0700 tablet 08/03/17 Insulin Sliding Scale [Novolog Vial Sliding Scale -] 1 vial SQ TIDAC units Sitagliptin Phosphate [Januvia -] 25 mg PO DAILY@0700 tab 08/03/17 Sodium Hypochlorite [Dakin's Solution 0.25% (Half-Strength) -] 1 applic TP DAILY ml 08/03/17 Docusate Sodium [Colace -] 300 mg PO HS PRN 08/08/17 Lorazepam [Ativan] 2 mg PO HS MDD 1 08/08/17 Review of Systems - Review of Systems Comments:: 08/08/17 20:53 "GENERAL/CONSTITUTIONAL: No fever or chills. No weakness. HEAD, EYES, EARS, NOSE AND THROAT: No change in vision. No ear pain or discharge. No sore throat. CARDIOVASCULAR: No chest pain or shortness of breath. RESPIRATORY: No cough, wheezing, or hemoptysis. GASTROINTESTINAL: No nausea, vomiting, diarrhea or constipation. GENITOURINARY: No dysuria, frequency, or change in urination. MUSCULOSKELETAL: No joint or muscle swelling or pain. No neck or back pain. SKIN: No rash NEUROLOGIC: No headache, vertigo, loss of consciousness, or change in strength/ sensation. ENDOCRINE: No increased thirst. No abnormal weight change. HEMATOLOGIC/LYMPHATIC: No anemia, easy bleeding, or history of blood clots. ALLERGIC/IMMUNOLOGIC: No hives or skin allergy. Psychiatry: + Suicidal and homicidal ideation. " <Dominic Liu - Last Filed: 08/08/17 22:57> *Physical Exam - Vital Signs Last Vital Signs Temp Pulse Resp BP Pulse Ox 98.8 F 83 16 109/73 98 08/08/17 19:12 08/08/17 19:12 08/08/17 19:12 08/08/17 19:12 08/08/17 19:12 <Janeen Katz - Last Filed: 08/08/17 22:23> - Vital Signs Last Vital Signs Temp Pulse Resp BP Pulse Ox 98.8 F 83 16 109/73 98 08/08/17 19:12 08/08/17 19:12 08/08/17 19:12 08/08/17 19:12 08/08/17 19:12 - Physical Exam Comments: 08/08/17 20:53 "GENERAL: Awake, alert, and fully oriented, in no acute distress. HEAD: No signs of trauma EYES: PERRLA, EOMI, sclera anicteric, conjunctiva clear ENT: Auricles normal inspection, hearing grossly normal, nares patent, oropharynx clear without exudates. Moist mucosa NECK: Nontender, no stepoffs, Normal ROM, supple, no lymphadenopathy, JVD, or masses LUNGS: Breath sounds equal, clear to auscultation bilaterally. No wheezes, and no crackles HEART: Regular rate and rhythm, normal S1 and S2, no murmurs, rubs or gallops ABDOMEN: Soft, nontender, normoactive bowel sounds. No guarding, no rebound. No masses EXTREMITIES: Normal range of motion, no edema. No clubbing or cyanosis. No cords, erythema, or tenderness NEUROLOGICAL: Cranial nerves II through XII intact. 5/5 strength and sensation in all extremities, Normal speech, normal gait, normal cerebellar function SKIN: Warm, Dry, normal turgor, no rashes or lesions noted. " <Dominic Liu - Last Filed: 08/08/17 22:57> ED Treatment Course - LABORATORY CBC & Chemistry Diagram: 08/08/17 21:15 08/08/17 21:15 - ADDITIONAL ORDERS Additional order review: Laboratory Results 08/08/17 21:15 Sodium 134 L Potassium 4.4 Chloride 100 Carbon Dioxide 24 D Anion Gap 10 BUN 47 H D Creatinine 7.0 H Creat Clearance w eGFR 8.15 Random Glucose 168 H D Calcium 8.8 Total Bilirubin 0.4 AST 45 H D ALT 44 D Alkaline Phosphatase 72 D Total Protein 8.0 D Albumin 3.6 D 08/08/17 21:15 RBC 4.34 MCV 88.7 MCHC 32.7 RDW 15.9 MPV 10.0 D Neutrophils % 63.3 D Lymphocytes % 20.9 D Monocytes % 8.2 Eosinophils % 6.4 H Basophils % 1.2 <Janeen Katz - Last Filed: 08/08/17 22:23> - LABORATORY CBC & Chemistry Diagram: 08/08/17 21:15 08/08/17 21:15 <Dominic Liu - Last Filed: 08/08/17 22:57> Medical Decision Making - Medical Decision Making 08/08/17 20:53 57 M expressing homicidal and suicidal ideation with plan. No prior psych history. Pt is at this time calm and cooperative. - 1 to 1 observation - Dr. Kowalski consulted for psych evaluation, states he will evaluate pt in the AM. 08/08/17 22:57 Pt admitted to hospitalist. <Dominic Liu - Last Filed: 08/08/17 22:57> *DC/Admit/Observation/Transfer - Attestations Scribe Attestion: 08/08/17 22:23 Documentation prepared by Janeen Katz, acting as medical management trainer for Dominic Liu MD. <Janeen Katz - Last Filed: 08/08/17 22:23> - Discharge Dispostion Decision to Admit order: Yes - Attestations Physician Attestion: 08/08/17 22:57 I, Dr. Dominic Liu MD, attest that this document has been prepared under my direction and personally reviewed by me in its entirety. I further attest, that it accurately reflects all work, treatment, procedures and medical decision -making performed by me. <Dominic Liu - Last Filed: 08/08/17 22:57> Diagnosis at time of Disposition: Suicidal ideation - Referrals Referrals: Hai Davis [Primary Care Provider] - - Patient Instructions - Post Discharge Activity
[2017-08-08 21:27] LABS: BASO % 1.2 % (0-2.0); EOS % 6.4 % (0-4.5); HEMATOCRIT 38.5 % (35.4-49); HEMOGLOBIN 12.6 GM/dL (11.7-16.9); LYMPH % 20.9 % (8-40); MCHC 32.7 g/dl (32.0-35.9); MEAN CELL VOLUME 88.7 fl (80-96); MONO % 8.2 % (3.8-10.2); NEUT % 63.3 % (42.8-82.8); PLATELET COUNT 185 K/MM3 (134-434); RBC 4.34 M/mm3 (4.00-5.60); RDW 15.9 % (11.9-15.9); WHITE BLOOD COUNT 5.8 K/mm3 (4.0-10.0)
[2017-08-08 21:55] LABS: ALBUMIN 3.6 g/dl (3.4-5.0); ALK PHOS 72 U/L (45-117); ANION GAP 10 (8-16); BILIRUBIN,TOTAL 0.4 mg/dL (0.2-1.0); BLOOD UREA NITROGEN 47 mg/dL (7-18); CALCIUM 8.8 mg/dL (8.5-10.1); CHLORIDE 100 mmol/L (98-107); CO2 24 mmol/L (21-32); GLUCOSE,RANDOM 168 mg/dL (74-106); POTASSIUM 4.4 mmol/L (3.5-5.1); SGOT/AST 45 U/L (15-37); SGPT/ALT 44 U/L (12-78); SODIUM 134 mmol/L (136-145)
[2017-08-08] MEDS ORDERED: SODIUM CHLORIDE 1,000 ML IV STA (22:32)
--- NOTE | 2017-08-09 02:00 | PN ---
Teaching Attending Note Name of Resident: Philippe Diallo ATTENDING PHYSICIAN STATEMENT I saw and evaluated the patient. I reviewed the resident's note and discussed the case with the resident. I agree with the resident's findings and plan as documented. SUBJECTIVE: Patient is a 57 year old man, with a significant past medical history of anemia , asthma, COPD, diabetes, HTN, ESRD (on Hemodialysis - TTS), PVD, CVAx2 (w/ LLE residual weakness), Left TMA, gastric bypass, MRSA, ESBL E.coli, who presents to the emergency department via EMS from [facility] for a psychiatric evaluation. As per patient, he has intense frustration having been in and out of various nursing homes since May. He reports being discharged from [facility] a week ago. At the rehabilitation center the patient reports he is on isolation and does minimal rehabilitation exercises. He felt frustrated with his experience and expressed suicidal and homicidal ideation to staff members. OBJECTIVE: Alert and in no acute distress. Vital Signs Period Temp Pulse Resp BP Sys/Leon Pulse Ox Last 24 Hr 98.8 F 83 16 109/73 98 HEENT: No Jaundice, eye redness or discharge, PERRLA, EOMI. Normocephalic, atraumatic. External ears are normal and hearing is grossly intact. No nasal discharge. Neck: Supple, nontender. No palpable adenopathy or thyromegaly. No JVD Chest: Good effort. Clear to auscultation and percussion. Heart: Regular. No S3, rub or murmur Abdomen: Not distended, soft, nontender and no HSM. No rebound or guarding. Normoactive bowel sounds. Ext: Peripheral pulses intact. Left TMA with fresh wound. Non pitting leg edema. Left arm AV fistula with good thrill and bruit. Skin: Warm and dry. No petechiae, rash or ecchymosis. Neuro: Alert. Oriented x3. CN 2-12 grossly intact. Sensation grossly intact in all four extremities and DTR are symmetric. Psych: Suicidal and homicidal ideations. Approrpiate affect, mood is sad and insight is good; poor judgement. Home Medications Medication Instructions Recorded Omeprazole [Prilosec (RX)] 20 mg PO DAILY 08/13/14 Atorvastatin Ca [Lipitor] 80 mg PO HS 05/24/16 Ferrous Sulfate [Feosol] 1 tab PO DAILY 08/02/16 Albuterol Sulfate [Proair 90 mcg IH BID 11/13/16 Respiclick] Cholecalciferol (Vitamin D3) 2,000 unit PO DAILY 11/13/16 [Vitamin D3] Aspirin [ASA -] 81 mg PO DAILY #30 tab.chew 11/15/16 Pregabalin [Lyrica -] 100 mg PO DAILY MDD 50 mg 04/19/17 Calcium Acetate [Phoslo -] 1,334 mg PO TIDCM capsule 04/27/17 Polyethylene Glycol 3350 [Miralax 17 gm PO DAILY bottle 04/27/17 119 gm Btl -] Carvedilol [Coreg -] 6.25 mg PO BID tablet 07/10/17 Oxycodone HCl 5 mg PO Q8H PRN #10 tablet MDD 15 07/10/17 Torsemide [Demadex -] 80 mg PO MOWEFR tablet 07/10/17 Glimepiride [Glimepiride -] 1 mg PO DAILY@0700 tablet 08/03/17 Insulin Sliding Scale [Novolog 1 vial SQ TIDAC units 08/03/17 Vial Sliding Scale -] Sitagliptin Phosphate [Januvia -] 25 mg PO DAILY@0700 tab 08/03/17 Sodium Hypochlorite [Dakin's 1 applic TP DAILY ml 08/03/17 Solution 0.25% (Half-Strength) -] Docusate Sodium [Colace -] 300 mg PO HS PRN 08/08/17 Lorazepam [Ativan] 2 mg PO HS MDD 1 08/08/17 ASSESSMENT AND PLAN: 1. Suicidal and Homicidal Ideation - Psychiatry has been consulted and they recommend one-to-one monitoring and they will see him in the morning. Will benefit from antidepressant therapy. 2. MRSA/ESBL E. Coli - Continue isolation protocols. 3. ESRD - Continue thrice weekly hemodialysis and consult nephrology. 4. DM - Continue current regimen, including oral agents and sliding scale insulin. 5. Left TMA with fresh wound - Got only 6 days of antibiotics and says he was not discharged with any antibiotics. Will consult ID and review pathology of material from TMA. 6. DVT prophylaxis - Heparin 5000u sq tid 7. Advance directives - Full code
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
[2017-08-09 06:28] LABS: HEMATOCRIT 35.1 % (35.4-49); HEMOGLOBIN 11.5 GM/dL (11.7-16.9); MCH 29.2 pg (25.7-33.7); MCHC 32.9 g/dl (32.0-35.9); MEAN CELL VOLUME 88.8 fl (80-96); RBC 3.95 M/mm3 (4.00-5.60); RDW 15.5 % (11.9-15.9)
[2017-08-09 07:03] LABS: CHLORIDE 101 mmol/L (98-107); POTASSIUM 4.4 mmol/L (3.5-5.1); SODIUM 136 mmol/L (136-145)
[2017-08-09 07:23] LABS: ALBUMIN 3.1 g/dl (3.4-5.0); ALK PHOS 65 U/L (45-117); ANION GAP 12 (8-16); BILIRUBIN,TOTAL 0.4 mg/dL (0.2-1.0); BLOOD UREA NITROGEN 52 mg/dL (7-18); CALCIUM 8.5 mg/dL (8.5-10.1); CO2 23 mmol/L (21-32); CREATININE 7.2 mg/dL (0.7-1.3); GLUCOSE,RANDOM 88 mg/dL (74-106); MAGNESIUM 2.8 mg/dL (1.8-2.4); SGOT/AST 41 U/L (15-37); SGPT/ALT 40 U/L (12-78); TOT PROT 7.1 g/dl (6.4-8.2)
[2017-08-09 09:09] LABS: PLATELET COUNT 149 K/MM3 (134-434); WHITE BLOOD COUNT 5.8 K/mm3 (4.0-10.0)
[2017-08-09 09:10] LABS: MEAN PLT VOLUME 10.1 fl (7.5-11.1)
[2017-08-09] MEDS ORDERED: DOCUSATE SODIUM 100 MG CAPSULE (FP) PO PRN (10:46)
[2017-08-09] MEDS ORDERED: oxyCODONE HCL 5 MG TABLET PO PRN (10:46)
[2017-08-09] MEDS: PANTOPRAZOLE 20 MG TABLET (FP) PO SCH (11:10)
[2017-08-09] MEDS: POLYETHYLENE GLYCOL 3350 119 GM BTL PO SCH (11:10)
[2017-08-09] MEDS: CARVEDILOL 6.25 MG TABLET (FP) PO SCH ×3 (11:10→22:34)
[2017-08-09] MEDS: CALCIUM ACETATE 667 MG CAPSULE (FP) PO SCH ×2 (11:10→20:19)
[2017-08-09] MEDS: ASPIRIN 81 MG CHEWABLE TABLETS PO SCH (11:10)
[2017-08-09] MEDS: SODIUM HYPOCHLORITE 0.25%- 473 ML BULK BOTTLE TP SCH (11:10)
[2017-08-09] MEDS: PREGABALIN 50 MG CAPSULE PO SCH (11:10)
[2017-08-09] MEDS: TORSEMIDE 20 MG TABLET (FP) PO SCH (11:10)
[2017-08-09] MEDS: FERROUS SO4 325 MG TABLET (FP) PO SCH (11:10)
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
[2017-08-09] MEDS ORDERED: PREGABALIN 100 MG CAPSULE ONE (16:55)
[2017-08-09] MEDS ORDERED: PANTOPRAZOLE 40 MG TABLET (FP) ONE (16:55)
[2017-08-09] MEDS ORDERED: FERROUS SO4 325 MG TABLET (FP) ONE (16:56)
--- NOTE | 2017-08-09 17:53 | PN ---
Physical Exam: SUBJECTIVE: Patient seen and examined OBJECTIVE: Vital Signs Period Temp Pulse Resp BP Sys/Leon Pulse Ox Last 24 Hr 98.8 F 59-83 16-18 104-109/58-73 97-98 GENERAL: The patient is awake, alert, and fully oriented, in no acute distress. HEAD: Normal with no signs of trauma. EYES: PERRL, extraocular movements intact, sclera anicteric, conjunctiva clear. No ptosis. ENT: Ears normal, nares patent, oropharynx clear without exudates, moist mucous membranes. NECK: Trachea midline, full range of motion, supple. LUNGS: Breath sounds equal, clear to auscultation bilaterally, no wheezes, no crackles, no accessory muscle use. HEART: Regular rate and rhythm, S1, S2 without murmur, rub or gallop. ABDOMEN: Soft, nontender, nondistended, normoactive bowel sounds, no guarding, no rebound, no hepatosplenomegaly, no masses. EXTREMITIES: 2+ pulses, warm, well-perfused, no edema. NEUROLOGICAL: Cranial nerves II through XII grossly intact. Normal speech, gait not observed. PSYCH: Normal mood, normal affect. SKIN: Warm, dry, normal turgor, no rashes or lesions noted Laboratory Results - last 24 hr 08/08/17 08/08/17 08/09/17 21:15 21:15 05:56 WBC 5.8 D 5.8 RBC 4.34 3.95 L Hgb 12.6 D 11.5 L Hct 38.5 D 35.1 L MCV 88.7 88.8 MCH 29.0 29.2 MCHC 32.7 32.9 RDW 15.9 15.5 Plt Count 185 D 149 MPV 10.0 D 10.1 Absolute Neuts (auto) 3.6 Neutrophils % 63.3 D Lymphocytes % 20.9 D Monocytes % 8.2 Eosinophils % 6.4 H Basophils % 1.2 Nucleated RBC % 0 Sodium 134 L Potassium 4.4 Chloride 100 Carbon Dioxide 24 D Anion Gap 10 BUN 47 H D Creatinine 7.0 H Creat Clearance w eGFR 8.15 POC Glucometer Random Glucose 168 H D Calcium 8.8 Phosphorus Magnesium Total Bilirubin 0.4 AST 45 H D ALT 44 D Alkaline Phosphatase 72 D Total Protein 8.0 D Albumin 3.6 D 08/09/17 08/09/17 05:56 06:09 WBC RBC Hgb Hct MCV MCH MCHC RDW Plt Count MPV Absolute Neuts (auto) Neutrophils % Lymphocytes % Monocytes % Eosinophils % Basophils % Nucleated RBC % Sodium 136 Potassium 4.4 Chloride 101 Carbon Dioxide 23 Anion Gap 12 BUN 52 H Creatinine 7.2 H Creat Clearance w eGFR 7.89 POC Glucometer [phone] Random Glucose 88 D Calcium 8.5 Phosphorus 5.0 H Magnesium 2.8 H D Total Bilirubin 0.4 AST 41 H ALT 40 Alkaline Phosphatase 65 Total Protein 7.1 Albumin 3.1 L Active Medications Generic Name Dose Route Start Last Admin Trade Name Freq PRN Reason Stop Dose Admin Aspirin 81 mg 08/09/17 11:00 08/09/17 11:10 Asa - PO 81 mg DAILY [facility] Administration Atorvastatin Calcium 80 mg 08/09/17 22:00 Lipitor - PO HS [facility] Calcium Acetate 1,334 mg 08/09/17 12:00 08/09/17 11:10 Phoslo - PO 1,334 mg TIDCM [facility] Administration Carvedilol 6.25 mg 08/09/17 11:00 08/09/17 11:10 Coreg - PO 6.25 mg BID [facility] Administration Docusate Sodium 300 mg 08/09/17 10:46 Colace - PO HS PRN CONSTIPATION Epoetin Lawrence 3,000 unit 08/10/17 12:57 Epogen - IVPUSH 08/10/17 12:58 ONCE ONE Ferrous Sulfate 325 mg 08/09/17 11:00 08/09/17 11:10 Feosol - PO 325 mg DAILY [facility] Administration Glimepiride 1 mg 08/10/17 07:00 Amaryl - PO DAILY@0700 [facility] Heparin Sodium (Porcine) 1,000 unit 08/09/17 13:30 Heparin - IVPUSH 08/09/17 13:31 ONCE ONE Sodium Chloride 250 mls @ 3,000 mls/hr 08/09/17 12:57 Normal Saline - IV 08/10/17 12:57 PRN PRN Hypotension during Dialysis Lorazepam 2 mg 08/09/17 22:00 Ativan - PO HS [facility] Oxycodone HCl 5 mg 08/09/17 10:46 Roxicodone - PO Q8H PRN Pain 6-10 Pantoprazole Sodium 20 mg 08/09/17 11:00 08/09/17 11:10 Protonix - PO 20 mg DAILY [facility] Administration Polyethylene Glycol 17 gm 08/09/17 11:00 08/09/17 11:10 Miralax (For Daily Use) - PO 17 gm DAILY [facility] Administration Pregabalin 100 mg 08/09/17 11:00 08/09/17 11:10 Lyrica - PO 100 mg DAILY [facility] Administration Sitagliptin Phosphate 25 mg 08/10/17 07:00 Januvia - PO DAILY@0700 [facility] Sodium Hypochlorite 1 applic 08/09/17 11:00 08/09/17 11:10 Dakin's Solution 0.25% (Half-Strength) - TP Not Given DAILY [facility] Torsemide 80 mg 08/09/17 11:00 08/09/17 11:10 Demadex - PO 80 mg MOWEFR [facility] Administration ASSESSMENT/PLAN:
[2017-08-09] MEDS ORDERED: INSULIN (NOVOLOG) ASPART 100 UNITS/ML 10ML VIAL ONE (20:38)
[2017-08-09] MEDS: LORazepam 1 MG TABLET PO SCH (22:18)
[2017-08-09] MEDS: ATORVASTATIN CA 80 MG TABLET (FP) PO SCH (22:21)
--- NOTE | 2017-08-09 22:33 | PN ---
Physical Exam: SUBJECTIVE: Patient seen and examined in ED. ON 1:1 observation. OBJECTIVE: Vital Signs Period Temp Pulse Resp BP Sys/Leon Pulse Ox Last 24 Hr 59 18 104/58 97 GENERAL: The patient is awake, alert, and fully oriented, in no acute distress. Fully clothed. EXTREMITIES: LLE wrapped from toes to just below the knee, c/d/i. Venous stasis changes observed just below knee; RLE with extensive venous stasis changes from foot to just below knee Laboratory Results - last 24 hr 08/09/17 08/09/17 08/09/17 05:56 05:56 06:09 WBC 5.8 RBC 3.95 L Hgb 11.5 L Hct 35.1 L MCV 88.8 MCH 29.2 MCHC 32.9 RDW 15.5 Plt Count 149 MPV 10.1 Sodium 136 Potassium 4.4 Chloride 101 Carbon Dioxide 23 Anion Gap 12 BUN 52 H Creatinine 7.2 H Creat Clearance w eGFR 7.89 POC Glucometer 125.03724 Random Glucose 88 D Calcium 8.5 Phosphorus 5.0 H Magnesium 2.8 H D Total Bilirubin 0.4 AST 41 H ALT 40 Alkaline Phosphatase 65 Total Protein 7.1 Albumin 3.1 L Active Medications Generic Name Dose Route Start Last Admin Trade Name Freq PRN Reason Stop Dose Admin Aspirin 81 mg 08/09/17 11:00 08/09/17 11:10 Asa - PO 81 mg DAILY [facility] Administration Atorvastatin Calcium 80 mg 08/09/17 22:00 08/09/17 22:21 Lipitor - PO 80 mg HS [facility] Administration Calcium Acetate 1,334 mg 08/09/17 12:00 08/09/17 20:19 Phoslo - PO Not Given TIDCM [facility] Carvedilol 6.25 mg 08/09/17 11:00 08/09/17 22:18 Coreg - PO 6.25 mg BID [facility] Administration Docusate Sodium 300 mg 08/09/17 10:46 Colace - PO HS PRN CONSTIPATION Epoetin Lawrence 3,000 unit 08/10/17 12:57 Epogen - IVPUSH 08/10/17 12:58 ONCE ONE Ferrous Sulfate 325 mg 08/09/17 11:00 08/09/17 11:10 Feosol - PO 325 mg DAILY [facility] Administration Glimepiride 1 mg 08/10/17 07:00 Amaryl - PO DAILY@0700 [facility] Heparin Sodium (Porcine) 1,000 unit 08/09/17 13:30 Heparin - IVPUSH 08/09/17 13:31 ONCE ONE Sodium Chloride 250 mls @ 3,000 mls/hr 08/09/17 12:57 Normal Saline - IV 08/10/17 12:57 PRN PRN Hypotension during Dialysis Lorazepam 2 mg 08/09/17 22:00 08/09/17 22:18 Ativan - PO 2 mg HS [facility] Administration Oxycodone HCl 5 mg 08/09/17 10:46 Roxicodone - PO Q8H PRN Pain 6-10 Pantoprazole Sodium 20 mg 08/09/17 11:00 08/09/17 11:10 Protonix - PO 20 mg DAILY [facility] Administration Polyethylene Glycol 17 gm 08/09/17 11:00 08/09/17 11:10 Miralax (For Daily Use) - PO 17 gm DAILY [facility] Administration Pregabalin 100 mg 08/09/17 11:00 08/09/17 11:10 Lyrica - PO 100 mg DAILY [facility] Administration Sitagliptin Phosphate 25 mg 08/10/17 07:00 Januvia - PO DAILY@0700 [facility] Sodium Hypochlorite 1 applic 08/09/17 11:00 08/09/17 11:10 Dakin's Solution 0.25% (Half-Strength) - TP Not Given DAILY [facility] Torsemide 80 mg 08/09/17 11:00 08/09/17 11:10 Demadex - PO 80 mg MOWEFR [facility] Administration ASSESSMENT/PLAN 57 year-old man with a significant past medical history of anemia, asthma, COPD , diabetes, HTN, ESRD on HD (T,Th,S) PVD, CVAx2 w/LLE residual weakness, left TMA, gastric bypass, MRSA, ESBL E.coli, who presented to the emergency department via EMS from [facility] for a psychiatric evaluation. Suicidal/homicidal ideation --patient stated he threatened to blow his head off and to blow the staff's heads off --stated he used to have a gun but he surrendered it in an amnesty program --awaiting psych consult --continue 1:1 ESRD on HD --discussed with Dr. Win, plans for HD tomorrow Dispo: continues to require inpatient care. Hospitalist administration advised of above by separate correspondence. Full code. Visit type - Emergency Visit Emergency Visit: Yes ED Registration Date: 08/09/17 Care time: The patient presented to the Emergency Department on the above date and was hospitalized for further evaluation of their emergent condition. - New Patient This patient is new to me today: Yes Date on this admission: 08/09/17 - Critical Care Critical Care patient: No
[2017-08-10 00:05] VITALS: BMI 40.7
[2017-08-10] MEDS: sitaGLIPtin PHOSPHATE 25 MG TABLET (FP) PO SCH (06:29)
[2017-08-10] MEDS: GLIMEPIRIDE 1 MG TABLET (FP) PO SCH (06:29)
[2017-08-10] MEDS: CALCIUM ACETATE 667 MG CAPSULE (FP) PO SCH ×3 (09:00→16:56)
[2017-08-10] MEDS: POLYETHYLENE GLYCOL 3350 119 GM BTL PO SCH (09:58)
[2017-08-10] MEDS: CARVEDILOL 6.25 MG TABLET (FP) PO SCH ×2 (09:58→21:11)
[2017-08-10] MEDS: FERROUS SO4 325 MG TABLET (FP) PO SCH (09:59)
[2017-08-10] MEDS: ASPIRIN 81 MG CHEWABLE TABLETS PO SCH (09:59)
[2017-08-10] MEDS: PANTOPRAZOLE 20 MG TABLET (FP) PO SCH (09:59)
[2017-08-10] MEDS: SODIUM HYPOCHLORITE 0.25%- 473 ML BULK BOTTLE TP SCH (09:59)
[2017-08-10] MEDS: PREGABALIN 50 MG CAPSULE PO SCH (09:59)
--- NOTE | 2017-08-10 10:40 | CONSULT ---
Consult - text type - Consultation Consultation Note: Podiatry Consultation: 57 year old DM, PVD, ESRD M well known to me from wound healing center admitted by SNF with suicidal/homicidal ideations. Patient was upset that he was quarantined due to MRSA and became threatening and agitated. After discussing with him today, he had no intention to harm himself or others, he was just "pissed off" at the SNF. Denies F/V/N/C/SOB/CP. AFebrile, VSS. PMHx: DM, HTN, PVD, ESRD on HD Meds: noted ALL: shellfish, bactrim KEEGAN: L foot: TMA stump dehiscence ulcer, measures 5.0 cm x 3.5 cm x 1.5 cm, fibrogranular base with regular margins, exposed muscle belly, no exposed bone, moderate serosanguinous drainage, no purulence, no fluctuance, no ascending cellulitis, no active signs of infection. Sutures coapted medially Imp: 57 year old DM, PVD, ESRD M with L TMA stump dehiscence ulcer 1. Discharge to home with home services. Needs I wound vac, black granufoam, set at 125 mmHg continuous changed 3x/week. 2. For now, dressing changes with dakins wet to dry L foot. 3. Partial WB L heel with surgical offloading shoe. 4. Upon discharge, will f/u with me in wound healing center 08/15. Amarilis Alcantara DPM
--- NOTE | 2017-08-10 12:52 | PN ---
Progress Note (short form) - Note Progress Note: Subjective: The patient was seen and examined at the bedside, he states "I made a mistake, I should not have said what I said in the emergency room". The patient denies any suicidal or homicidal ideation at this time. Current Medications Generic Name Dose Route Start Last Admin Trade Name Freq PRN Reason Stop Dose Admin Aspirin 81 mg 08/09/17 11:00 08/10/17 09:59 Asa - PO 81 mg DAILY [facility] Administration Atorvastatin Calcium 80 mg 08/09/17 22:00 08/09/17 22:21 Lipitor - PO 80 mg HS [facility] Administration Calcium Acetate 1,334 mg 08/09/17 12:00 08/10/17 11:39 Phoslo - PO 1,334 mg TIDCM [facility] Administration Carvedilol 6.25 mg 08/09/17 11:00 08/10/17 09:58 Coreg - PO 6.25 mg BID [facility] Administration Docusate Sodium 300 mg 08/09/17 10:46 Colace - PO HS PRN CONSTIPATION Epoetin Lawrence 3,000 unit 08/10/17 12:57 Epogen - IVPUSH 08/10/17 12:58 ONCE ONE Ferrous Sulfate 325 mg 08/09/17 11:00 08/10/17 09:59 Feosol - PO 325 mg DAILY [facility] Administration Glimepiride 1 mg 08/10/17 07:00 08/10/17 06:29 Amaryl - PO 1 mg DAILY@0700 [facility] Administration Heparin Sodium (Porcine) 1,000 unit 08/09/17 13:30 Heparin - IVPUSH 08/09/17 13:31 ONCE ONE Sodium Chloride 250 mls @ 3,000 mls/hr 08/09/17 12:57 Normal Saline - IV 08/10/17 12:57 PRN PRN Hypotension during Dialysis Lorazepam 2 mg 08/09/17 22:00 08/09/17 22:18 Ativan - PO 2 mg HS [facility] Administration Oxycodone HCl 5 mg 08/09/17 10:46 Roxicodone - PO Q8H PRN Pain 6-10 Pantoprazole Sodium 20 mg 08/09/17 11:00 08/10/17 09:59 Protonix - PO 20 mg DAILY [facility] Administration Polyethylene Glycol 17 gm 08/09/17 11:00 08/10/17 09:58 Miralax (For Daily Use) - PO 17 gm DAILY [facility] Administration Pregabalin 100 mg 08/09/17 11:00 08/10/17 09:59 Lyrica - PO 100 mg DAILY [facility] Administration Sitagliptin Phosphate 25 mg 08/10/17 07:00 08/10/17 06:29 Januvia - PO 25 mg DAILY@0700 [facility] Administration Sodium Hypochlorite 1 applic 08/11/17 10:00 Dakin's Solution 0.25% (Half-Strength) - TP DAILY [facility] Torsemide 80 mg 08/09/17 11:00 08/09/17 11:10 Demadex - PO 80 mg MOWEFR [facility] Administration Objective: Vital Signs Period Temp Pulse Resp BP Sys/Leon Pulse Ox Last 24 Hr 97.6 F-98 F 59-89 18-20 103-133/50-69 96-96 Physical Exam: General: NAD, A&Ox3 Patient refused remainder of exam CBCD WBC 5.8 K/mm3 (4.0-10.0) 08/09/17 05:56 RBC 3.95 M/mm3 (4.00-5.60) L 08/09/17 05:56 Hgb 11.5 GM/dL (11.7-16.9) L 08/09/17 05:56 Hct 35.1 % (35.4-49) L 08/09/17 05:56 MCV 88.8 fl (80-96) 08/09/17 05:56 MCHC 32.9 g/dl (32.0-35.9) 08/09/17 05:56 RDW 15.5 % (11.9-15.9) 08/09/17 05:56 Plt Count 149 K/MM3 (134-434) 08/09/17 05:56 MPV 10.1 fl (7.5-11.1) 08/09/17 05:56 CMP Sodium 136 mmol/L (136-145) 08/09/17 05:56 Potassium 4.4 mmol/L (3.5-5.1) 08/09/17 05:56 Chloride 101 mmol/L (98-107) 08/09/17 05:56 Carbon Dioxide 23 mmol/L (21-32) 08/09/17 05:56 Anion Gap 12 (8-16) 08/09/17 05:56 BUN 52 mg/dL (7-18) H 08/09/17 05:56 Creatinine 7.2 mg/dL (0.7-1.3) H 08/09/17 05:56 Creat Clearance w eGFR 7.89 (>60) 08/09/17 05:56 Random Glucose 88 mg/dL (74-106) D 08/09/17 05:56 Calcium 8.5 mg/dL (8.5-10.1) 08/09/17 05:56 Total Bilirubin 0.4 mg/dL (0.2-1.0) 08/09/17 05:56 AST 41 U/L (15-37) H 08/09/17 05:56 ALT 40 U/L (12-78) 08/09/17 05:56 Alkaline Phosphatase 65 U/L (45-117) 08/09/17 05:56 Total Protein 7.1 g/dl (6.4-8.2) 08/09/17 05:56 Albumin 3.1 g/dl (3.4-5.0) L 08/09/17 05:56 Assessment: This is a 57 year old male with PMHx of anemia, asthma, COPD, DM, HTN, ESRD on HD (TThS), PVD (followed in the wound care clinic with Dr. Alcantara), CVA x2, left TMA, gastric bypass, who presented to the ED for a psychiatric evaluation. Plan: 1) Suicidal/homicidal ideation - Patient threatened to blow his head off and the staff's - Seen by psych and cleared for discharge when medically stable - Patient is competent at this time to make his own decisions - Appreciate psych consult 2) Left foot TMA stump dehiscence ulcer - For wound vac placement (to be sent to the hospital today) - Discussed with Dr. Alcantara, can follow-up in wound clinic twice a week or have VNS change dressing 3 times a week 3) anemia - Continue ferrous sulfate 4) ESRD on HD - Continue HD as scheduled today 5) HTN - Continue home medications 6) F/E/N: - Diabetic diet - Monitor electrolytes 7) Prophylaxis: - OOB ambulating 8) Dispo: - Once condition improves CODE STATUS: FULL CODE Visit type - Emergency Visit Emergency Visit: Yes ED Registration Date: 08/09/17 Care time: The patient presented to the Emergency Department on the above date and was hospitalized for further evaluation of their emergent condition. - New Patient This patient is new to me today: Yes Date on this admission: 08/11/17 - Critical Care Critical Care patient: No
[2017-08-10] MEDS ORDERED: HEPARIN NA (PORCINE) 5,000 UNITS/ML 1ML VIAL IVPUSH ONE (12:57)
--- NOTE | 2017-08-10 15:21 | PN ---
Progress Note, Physician History of Present Illness: Pt seen and examined at bedside. He is awake and alert. He denies shortness of breath. - Current Medication List Current Medications: Active Medications Aspirin (Asa -) 81 mg PO DAILY [facility] Last Admin: 08/10/17 09:59 Dose: 81 mg Atorvastatin Calcium (Lipitor -) 80 mg PO HS [facility] Last Admin: 08/09/17 22:21 Dose: 80 mg Calcium Acetate (Phoslo -) 1,334 mg PO TIDCM [facility] Last Admin: 08/10/17 11:39 Dose: 1,334 mg Carvedilol (Coreg -) 6.25 mg PO BID [facility] Last Admin: 08/10/17 09:58 Dose: 6.25 mg Docusate Sodium (Colace -) 300 mg PO HS PRN PRN Reason: CONSTIPATION Epoetin Lawrence (Epogen -) 3,000 unit IVPUSH ONCE ONE Stop: 08/10/17 12:58 Ferrous Sulfate (Feosol -) 325 mg PO DAILY [facility] Last Admin: 08/10/17 09:59 Dose: 325 mg Glimepiride (Amaryl -) 1 mg PO DAILY@0700 [facility] Last Admin: 08/10/17 06:29 Dose: 1 mg Heparin Sodium (Porcine) (Heparin -) 1,000 unit IVPUSH ONCE ONE Stop: 08/09/17 13:31 Sodium Chloride (Normal Saline -) 250 mls @ 3,000 mls/hr IV PRN PRN PRN Reason: Hypotension during Dialysis Stop: 08/10/17 12:57 Lorazepam (Ativan -) 2 mg PO HS [facility] Last Admin: 08/09/17 22:18 Dose: 2 mg Oxycodone HCl (Roxicodone -) 5 mg PO Q8H PRN PRN Reason: Pain 6-10 Pantoprazole Sodium (Protonix -) 20 mg PO DAILY [facility] Last Admin: 08/10/17 09:59 Dose: 20 mg Polyethylene Glycol (Miralax (For Daily Use) -) 17 gm PO DAILY [facility] Last Admin: 08/10/17 09:58 Dose: 17 gm Pregabalin (Lyrica -) 100 mg PO DAILY [facility] Last Admin: 08/10/17 09:59 Dose: 100 mg Sitagliptin Phosphate (Januvia -) 25 mg PO DAILY@0700 [facility] Last Admin: 08/10/17 06:29 Dose: 25 mg Sodium Hypochlorite (Dakin's Solution 0.25% (Half-Strength) -) 1 applic TP DAILY [facility] Torsemide (Demadex -) 80 mg PO [facility] Last Admin: 08/09/17 11:10 Dose: 80 mg - Objective Vital Signs: Vital Signs Temperature 98 F 08/10/17 14:31 Pulse Rate 89 08/10/17 14:31 Respiratory Rate 20 08/10/17 14:31 Blood Pressure 112/69 08/10/17 14:31 O2 Sat by Pulse Oximetry (%) 96 08/10/17 07:00 Constitutional: Yes: Calm Eyes: Yes: Conjunctiva Clear HENT: Yes: Atraumatic Neck: Yes: Supple Cardiovascular: Yes: S1, S2 Respiratory: Yes: CTA Bilaterally Gastrointestinal: Yes: Soft, Abdomen, Obese Genitourinary: Yes: WNL Musculoskeletal: Yes: WNL Edema: Yes Edema: LLE: 1+, RLE: 1+ Neurological: Yes: Oriented Psychiatric: Yes: Oriented Labs: CBC, BMP 08/09/17 05:56 08/09/17 05:56 Problem List - Problems (1) ESRD (end stage renal disease) Code(s): N18.6 - END STAGE RENAL DISEASE Assessment/Plan Current Medications Generic Name Dose Route Start Last Admin Trade Name Nataliia PRN Reason Stop Dose Admin Aspirin 81 mg 08/09/17 11:00 08/10/17 09:59 Asa - PO 81 mg DAILY [facility] Administration Atorvastatin Calcium 80 mg 08/09/17 22:00 08/09/17 22:21 Lipitor - PO 80 mg HS [facility] Administration Calcium Acetate 1,334 mg 08/09/17 12:00 08/10/17 11:39 Phoslo - PO 1,334 mg TIDCM [facility] Administration Carvedilol 6.25 mg 08/09/17 11:00 08/10/17 09:58 Coreg - PO 6.25 mg BID [facility] Administration Docusate Sodium 300 mg 08/09/17 10:46 Colace - PO HS PRN CONSTIPATION Epoetin Lawrence 3,000 unit 08/10/17 12:57 Epogen - IVPUSH 08/10/17 12:58 ONCE ONE Ferrous Sulfate 325 mg 08/09/17 11:00 08/10/17 09:59 Feosol - PO 325 mg DAILY [facility] Administration Glimepiride 1 mg 08/10/17 07:00 08/10/17 06:29 Amaryl - PO 1 mg DAILY@0700 [facility] Administration Heparin Sodium (Porcine) 1,000 unit 08/09/17 13:30 Heparin - IVPUSH 08/09/17 13:31 ONCE ONE Sodium Chloride 250 mls @ 3,000 mls/hr 08/09/17 12:57 Normal Saline - IV 08/10/17 12:57 PRN PRN Hypotension during Dialysis Lorazepam 2 mg 08/09/17 22:00 08/09/17 22:18 Ativan - PO 2 mg HS [facility] Administration Oxycodone HCl 5 mg 08/09/17 10:46 Roxicodone - PO Q8H PRN Pain 6-10 Pantoprazole Sodium 20 mg 08/09/17 11:00 08/10/17 09:59 Protonix - PO 20 mg DAILY [facility] Administration Polyethylene Glycol 17 gm 08/09/17 11:00 08/10/17 09:58 Miralax (For Daily Use) - PO 17 gm DAILY [facility] Administration Pregabalin 100 mg 08/09/17 11:00 08/10/17 09:59 Lyrica - PO 100 mg DAILY [facility] Administration Sitagliptin Phosphate 25 mg 08/10/17 07:00 08/10/17 06:29 Januvia - PO 25 mg DAILY@0700 [facility] Administration Sodium Hypochlorite 1 applic 08/11/17 10:00 Dakin's Solution 0.25% (Half-Strength) - TP DAILY [facility] Torsemide 80 mg 08/09/17 11:00 08/09/17 11:10 Demadex - PO 80 mg [facility] Administration Impression 1. ESRD 2. anemia 3. HTN 4. morbid obesity 5. CVA 6. hyperlipidemia 7. proteinuria - nephrotic 8. PVD 9. foot ulcer Plan - unable to dialyze today secondary to schedule and staffing - psych input appreciated - HD in am - will follow Dr Win
[2017-08-10] MEDS: ATORVASTATIN CA 80 MG TABLET (FP) PO SCH (21:11)
[2017-08-10] MEDS: LORazepam 1 MG TABLET PO SCH (21:11)
[2017-08-11] MEDS: GLIMEPIRIDE 1 MG TABLET (FP) PO SCH (06:06)
[2017-08-11] MEDS: sitaGLIPtin PHOSPHATE 25 MG TABLET (FP) PO SCH (06:06)
[2017-08-11] MEDS: CALCIUM ACETATE 667 MG CAPSULE (FP) PO SCH ×3 (08:07→17:37)
[2017-08-11 09:53] LABS: HEMATOCRIT 33.8 % (35.4-49); MCHC 32.6 g/dl (32.0-35.9); MEAN CELL VOLUME 89.2 fl (80-96); MEAN PLT VOLUME 10.1 fl (7.5-11.1); PLATELET COUNT 186 K/MM3 (134-434); RBC 3.79 M/mm3 (4.00-5.60); RDW 15.7 % (11.9-15.9); WHITE BLOOD COUNT 6.8 K/mm3 (4.0-10.0)
[2017-08-11] MEDS ORDERED: SODIUM CHLORIDE 250 ML IV PRN (09:55)
[2017-08-11] MEDS ORDERED: HEPARIN NA (PORCINE) 5,000 UNITS/ML 1ML VIAL IVPUSH ONE (10:00)
[2017-08-11] MEDS ORDERED: EPOETIN ALFA 3,000 UNIT/1 ML ML IVPUSH ONE (10:00)
[2017-08-11 10:23] LABS: ANION GAP 13 (8-16); BLOOD UREA NITROGEN 90 mg/dL (7-18); CALCIUM 8.7 mg/dL (8.5-10.1); CHLORIDE 101 mmol/L (98-107); CO2 20 mmol/L (21-32); GLUCOSE,RANDOM 173 mg/dL (74-106); POTASSIUM 4.5 mmol/L (3.5-5.1); SODIUM 134 mmol/L (136-145)
[2017-08-11 10:35] LABS: CREATININE 10.2 mg/dL (0.7-1.3)
--- NOTE | 2017-08-11 12:03 | DS ---
Physical Examination Vital Signs: Vital Signs Temperature 97.9 F 08/11/17 08:50 Pulse Rate 66 08/11/17 11:25 Respiratory Rate 20 08/11/17 11:25 Blood Pressure 121/74 08/11/17 11:25 O2 Sat by Pulse Oximetry (%) 95 08/11/17 07:00 Labs: CBC, BMP 08/11/17 09:00 08/11/17 09:00 Discharge Summary Reason For Visit: SUICIDAL IDEATION Current Active Problems Suicidal ideation (Acute) Condition: Improved - Instructions Diet, Activity, Other Instructions: Please return to the ED with new, persistent, or worsening symptoms. Please follow-up with providers as indicated. Wound care: Change wound vac 3 times per week. Set the wound vac to 125 mmHg continuous. Referrals: Hai Davis [Primary Care Provider] - 1 Week Balaji Alcantara MD [Staff Physician] - (Please follow-up with Dr. Alcantara on 08/15/17. ) Disposition: VNS/HOME HEALTH CARE - Home Medications Comprehensive Discharge Medication List: Ambulatory Orders Omeprazole [Prilosec (RX)] 20 mg PO DAILY 08/13/14 Atorvastatin Ca [Lipitor] 80 mg PO HS 05/24/16 Ferrous Sulfate [Feosol] 1 tab PO DAILY 08/02/16 Albuterol Sulfate [Proair Respiclick] 90 mcg IH BID 11/13/16 Cholecalciferol (Vitamin D3) [Vitamin D3] 2,000 unit PO DAILY 11/13/16 Aspirin [ASA -] 81 mg PO DAILY #30 tab.chew 11/15/16 Pregabalin [Lyrica -] 100 mg PO DAILY [facility] 50 mg 04/19/17 Calcium Acetate [Phoslo -] 1,334 mg PO TIDCM capsule 04/27/17 Polyethylene Glycol 3350 [Miralax 119 gm Btl -] 17 gm PO DAILY bottle 04/27/17 Carvedilol [Coreg -] 6.25 mg PO BID tablet 07/10/17 Oxycodone HCl 5 mg PO Q8H PRN #10 tablet MDD 15 07/10/17 Torsemide [Demadex -] 80 mg PO [facility] tablet 07/10/17 Glimepiride [Glimepiride -] 1 mg PO DAILY@0700 tablet 08/03/17 Sitagliptin Phosphate [Januvia -] 25 mg PO DAILY@0700 tab 08/03/17 Sodium Hypochlorite [Dakin's Solution 0.25% (Half-Strength) -] 1 applic TP DAILY ml 08/03/17 Docusate Sodium [Colace -] 300 mg PO HS PRN 08/08/17 Lorazepam [Ativan] 2 mg PO HS [facility] 1 08/08/17
[2017-08-11] MEDS: TORSEMIDE 20 MG TABLET (FP) PO SCH (12:40)
[2017-08-11] MEDS: PREGABALIN 50 MG CAPSULE PO SCH (12:44)
[2017-08-11] MEDS: FERROUS SO4 325 MG TABLET (FP) PO SCH (12:44)
[2017-08-11] MEDS: CARVEDILOL 6.25 MG TABLET (FP) PO SCH ×2 (12:45→21:10)
[2017-08-11] MEDS: PANTOPRAZOLE 20 MG TABLET (FP) PO SCH (12:45)
[2017-08-11] MEDS: ASPIRIN 81 MG CHEWABLE TABLETS PO SCH (12:45)
[2017-08-11] MEDS: POLYETHYLENE GLYCOL 3350 119 GM BTL PO SCH (12:47)
[2017-08-11] MEDS: SODIUM HYPOCHLORITE 0.25%- 473 ML BULK BOTTLE TP SCH (13:00)
--- NOTE | 2017-08-11 16:04 | PN ---
Progress Note, Physician History of Present Illness: Pt seen and examined at bedside. He is awake and alert. Pt is very calm and cooperative. - Current Medication List Current Medications: Active Medications Aspirin (Asa -) 81 mg PO DAILY [facility] Last Admin: 08/11/17 12:45 Dose: 81 mg Atorvastatin Calcium (Lipitor -) 80 mg PO HS [facility] Last Admin: 08/10/17 21:11 Dose: 80 mg Calcium Acetate (Phoslo -) 1,334 mg PO TIDCM [facility] Last Admin: 08/11/17 12:44 Dose: 1,334 mg Carvedilol (Coreg -) 6.25 mg PO BID [facility] Last Admin: 08/11/17 12:45 Dose: 6.25 mg Docusate Sodium (Colace -) 300 mg PO HS PRN PRN Reason: CONSTIPATION Last Admin: 08/10/17 21:18 Dose: 300 mg Ferrous Sulfate (Feosol -) 325 mg PO DAILY [facility] Last Admin: 08/11/17 12:44 Dose: 325 mg Glimepiride (Amaryl -) 1 mg PO DAILY@0700 [facility] Last Admin: 08/11/17 06:06 Dose: Not Given Lorazepam (Ativan -) 2 mg PO HS [facility] Last Admin: 08/10/17 21:11 Dose: 2 mg Oxycodone HCl (Roxicodone -) 5 mg PO Q8H PRN PRN Reason: Pain 6-10 Pantoprazole Sodium (Protonix -) 20 mg PO DAILY [facility] Last Admin: 08/11/17 12:45 Dose: 20 mg Polyethylene Glycol (Miralax (For Daily Use) -) 17 gm PO DAILY [facility] Last Admin: 08/11/17 12:47 Dose: Not Given Pregabalin (Lyrica -) 100 mg PO DAILY [facility] Last Admin: 08/11/17 12:44 Dose: 100 mg Sitagliptin Phosphate (Januvia -) 25 mg PO DAILY@0700 [facility] Last Admin: 08/11/17 06:06 Dose: Not Given Sodium Hypochlorite (Dakin's Solution 0.25% (Half-Strength) -) 1 applic TP DAILY [facility] Torsemide (Demadex -) 80 mg PO MOWEFR [facility] Last Admin: 08/11/17 12:40 Dose: Not Given - Objective Vital Signs: Vital Signs Temperature 97.9 F 08/11/17 13:54 Pulse Rate 88 06/08/18 13:54 Respiratory Rate 20 08/11/17 13:54 Blood Pressure 121/63 08/11/17 13:54 O2 Sat by Pulse Oximetry (%) 95 08/11/17 07:00 Constitutional: Yes: Calm Eyes: Yes: Conjunctiva Clear HENT: Yes: Atraumatic Neck: Yes: Supple Cardiovascular: Yes: S1, S2 Respiratory: Yes: CTA Bilaterally Gastrointestinal: Yes: Soft, Abdomen, Obese Genitourinary: Yes: WNL Musculoskeletal: Yes: WNL Edema: Yes Edema: LLE: 1+, RLE: 1+ Integumentary: Yes: Venous Stasis Changes Neurological: Yes: Oriented Psychiatric: Yes: Oriented Labs: CBC, BMP 08/11/17 09:00 08/11/17 09:00 Problem List - Problems (1) ESRD (end stage renal disease) Code(s): N18.6 - END STAGE RENAL DISEASE Assessment/Plan Current Medications Generic Name Dose Route Start Last Admin Trade Name Freq PRN Reason Stop Dose Admin Aspirin 81 mg 08/09/17 11:00 08/11/17 12:45 Asa - PO 81 mg DAILY [facility] Administration Atorvastatin Calcium 80 mg 08/09/17 22:00 08/10/17 21:11 Lipitor - PO 80 mg HS [facility] Administration Calcium Acetate 1,334 mg 08/09/17 12:00 08/11/17 12:44 Phoslo - PO 1,334 mg TIDCM [facility] Administration Carvedilol 6.25 mg 08/09/17 11:00 08/11/17 12:45 Coreg - PO 6.25 mg BID [facility] Administration Docusate Sodium 300 mg 08/09/17 10:46 08/10/17 21:18 Colace - PO 300 mg HS PRN Administration CONSTIPATION Ferrous Sulfate 325 mg 08/09/17 11:00 08/11/17 12:44 Feosol - PO 325 mg DAILY [facility] Administration Glimepiride 1 mg 08/10/17 07:00 08/11/17 06:06 Amaryl - PO Not Given DAILY@0700 [facility] Lorazepam 2 mg 08/09/17 22:00 08/10/17 21:11 Ativan - PO 2 mg HS [facility] Administration Oxycodone HCl 5 mg 08/09/17 10:46 Roxicodone - PO Q8H PRN Pain 6-10 Pantoprazole Sodium 20 mg 08/09/17 11:00 08/11/17 12:45 Protonix - PO 20 mg DAILY [facility] Administration Polyethylene Glycol 17 gm 08/09/17 11:00 08/11/17 12:47 Miralax (For Daily Use) - PO Not Given DAILY [facility] Pregabalin 100 mg 08/09/17 11:00 08/11/17 12:44 Lyrica - PO 100 mg DAILY [facility] Administration Sitagliptin Phosphate 25 mg 08/10/17 07:00 08/11/17 06:06 Januvia - PO Not Given DAILY@0700 [facility] Sodium Hypochlorite 1 applic 08/11/17 10:00 Dakin's Solution 0.25% (Half-Strength) - TP DAILY [facility] Torsemide 80 mg 08/09/17 11:00 08/11/17 12:40 Demadex - PO Not Given [facility] Impression 1. ESRD 2. anemia 3. HTN 4. morbid obesity 5. CVA 6. hyperlipidemia 7. proteinuria - nephrotic 8. PVD 9. foot ulcer Plan - pt tolerated HD today - pt has HD schedule as outpt tomorrow - resume home meds on discharge - wound care - will need follow up with podiatry and vascular after discharge as well - will follow Dr Win
--- NOTE | 2017-08-11 18:03 | PN ---
Progress Note (short form) - Note Progress Note: Patient has the Mental Capacity to make decisions at this time.
[2017-08-11] MEDS: LORazepam 1 MG TABLET PO SCH (21:09)
[2017-08-11] MEDS: ATORVASTATIN CA 80 MG TABLET (FP) PO SCH (21:10)
[2017-08-12] MEDS ORDERED: PT OWN MED DRAWER 7, Y5N ONE (06:05)
[2017-08-12] MEDS: sitaGLIPtin PHOSPHATE 25 MG TABLET (FP) PO SCH (06:33)
[2017-08-12] MEDS: GLIMEPIRIDE 1 MG TABLET (FP) PO SCH (06:33)
[2017-08-12] MEDS: CALCIUM ACETATE 667 MG CAPSULE (FP) PO SCH ×3 (08:30→17:28)
[2017-08-12] MEDS: ASPIRIN 81 MG CHEWABLE TABLETS PO SCH (09:15)
[2017-08-12] MEDS: PREGABALIN 50 MG CAPSULE PO SCH (09:15)
[2017-08-12] MEDS: PANTOPRAZOLE 20 MG TABLET (FP) PO SCH (09:15)
[2017-08-12] MEDS: FERROUS SO4 325 MG TABLET (FP) PO SCH (09:15)
[2017-08-12] MEDS: CARVEDILOL 6.25 MG TABLET (FP) PO SCH ×2 (09:15→21:54)
[2017-08-12] MEDS: SODIUM HYPOCHLORITE 0.25%- 473 ML BULK BOTTLE TP SCH (09:17)
[2017-08-12] MEDS: POLYETHYLENE GLYCOL 3350 119 GM BTL PO SCH (09:18)
--- NOTE | 2017-08-12 10:01 | PN ---
Progress Note (short form) - Note Progress Note: Subjective: The patient was seen at the bedside, he was not discharged yesterday because VNS was not set up yet Current Medications Generic Name Dose Route Start Last Admin Trade Name Nataliia PRN Reason Stop Dose Admin Aspirin 81 mg 08/09/17 11:00 08/12/17 09:15 Asa - PO 81 mg DAILY [facility] Administration Atorvastatin Calcium 80 mg 08/09/17 22:00 08/11/17 21:10 Lipitor - PO 80 mg HS [facility] Administration Calcium Acetate 1,334 mg 08/09/17 12:00 08/12/17 08:30 Phoslo - PO 1,334 mg TIDCM [facility] Administration Carvedilol 6.25 mg 08/09/17 11:00 08/12/17 09:15 Coreg - PO 6.25 mg BID [facility] Administration Docusate Sodium 300 mg 08/09/17 10:46 08/10/17 21:18 Colace - PO 300 mg HS PRN Administration CONSTIPATION Ferrous Sulfate 325 mg 08/09/17 11:00 08/12/17 09:15 Feosol - PO 325 mg DAILY [facility] Administration Glimepiride 1 mg 08/10/17 07:00 08/12/17 06:33 Amaryl - PO 1 mg DAILY@0700 [facility] Administration Lorazepam 2 mg 08/09/17 22:00 08/11/17 21:09 Ativan - PO 2 mg HS [facility] Administration Oxycodone HCl 5 mg 08/09/17 10:46 Roxicodone - PO Q8H PRN Pain 6-10 Pantoprazole Sodium 20 mg 08/09/17 11:00 08/12/17 09:15 Protonix - PO 20 mg DAILY [facility] Administration Polyethylene Glycol 17 gm 08/09/17 11:00 08/12/17 09:18 Miralax (For Daily Use) - PO Not Given DAILY [facility] Pregabalin 100 mg 08/09/17 11:00 08/12/17 09:15 Lyrica - PO 100 mg DAILY [facility] Administration Sitagliptin Phosphate 25 mg 08/10/17 07:00 08/12/17 06:33 Januvia - PO 25 mg DAILY@0700 [facility] Administration Sodium Hypochlorite 1 applic 08/11/17 10:00 08/12/17 09:17 Dakin's Solution 0.25% (Half-Strength) - TP 1 applic DAILY [facility] Administration Torsemide 80 mg 08/09/17 11:00 08/11/17 12:40 Demadex - PO Not Given [facility] Objective: Vital Signs Period Temp Pulse Resp BP Sys/Leon Pulse Ox Last 24 Hr 97.3 F-98.7 F 61-88 18-20 90-138/49-78 97-97 Physical Exam: General: NAD, A&Ox3 Patient refused remainder of exam CBCD WBC 6.8 K/mm3 (4.0-10.0) 08/11/17 09:00 RBC 3.79 M/mm3 (4.00-5.60) L 08/11/17 09:00 Hgb 11.0 GM/dL (11.7-16.9) L 08/11/17 09:00 Hct 33.8 % (35.4-49) L 08/11/17 09:00 MCV 89.2 fl (80-96) 08/11/17 09:00 MCHC 32.6 g/dl (32.0-35.9) 08/11/17 09:00 RDW 15.7 % (11.9-15.9) 08/11/17 09:00 Plt Count 186 K/MM3 (134-434) D 08/11/17 09:00 MPV 10.1 fl (7.5-11.1) 08/11/17 09:00 CMP Sodium 134 mmol/L (136-145) L 08/11/17 09:00 Potassium 4.5 mmol/L (3.5-5.1) 08/11/17 09:00 Chloride 101 mmol/L (98-107) 08/11/17 09:00 Carbon Dioxide 20 mmol/L (21-32) L 08/11/17 09:00 Anion Gap 13 (8-16) 08/11/17 09:00 BUN 90 mg/dL (7-18) H D 08/11/17 09:00 Creatinine 10.2 mg/dL (0.7-1.3) H* D 08/11/17 09:00 Creat Clearance w eGFR 7.89 (>60) 08/09/17 05:56 Random Glucose 173 mg/dL (74-106) H D 08/11/17 09:00 Calcium 8.7 mg/dL (8.5-10.1) 08/11/17 09:00 Total Bilirubin 0.4 mg/dL (0.2-1.0) 08/09/17 05:56 AST 41 U/L (15-37) H 08/09/17 05:56 ALT 40 U/L (12-78) 08/09/17 05:56 Alkaline Phosphatase 65 U/L (45-117) 08/09/17 05:56 Total Protein 7.1 g/dl (6.4-8.2) 08/09/17 05:56 Albumin 3.1 g/dl (3.4-5.0) L 08/09/17 05:56 Assessment: This is a 57 year old male with PMHx of anemia, asthma, COPD, DM, HTN, ESRD on HD (TThS), PVD (followed in the wound care clinic with Dr. Alcantara), CVA x2, left TMA, gastric bypass, who presented to the ED for a psychiatric evaluation. Plan: 1) Suicidal/homicidal ideation - Patient states he "should never have said what I said" and "I don't have guns in my house" - Seen by psych and cleared for discharge when medically stable - Patient is competent at this time to make his own decisions. He is not a threat to himself or others at this time - Appreciate psych consult 2) Left foot TMA stump dehiscence ulcer - For wound vac placement (to be sent to the hospital today) - Discussed with Dr. Alcantara, can follow-up in wound clinic twice a week or have VNS change dressing 3 times a week 3) anemia - Continue ferrous sulfate 4) ESRD on HD - Continue HD as scheduled 5) HTN - Continue home medications 6) F/E/N: - Diabetic diet - Monitor electrolytes 7) Prophylaxis: - OOB ambulating 8) Dispo: - Once condition improves CODE STATUS: FULL CODE Visit type - Emergency Visit Emergency Visit: Yes ED Registration Date: 08/09/17 Care time: The patient presented to the Emergency Department on the above date and was hospitalized for further evaluation of their emergent condition. - New Patient This patient is new to me today: No - Critical Care Critical Care patient: No
[2017-08-12] MEDS ORDERED: SODIUM CHLORIDE 250 ML IV PRN (14:28)
--- NOTE | 2017-08-12 14:28 | PN ---
Progress Note, Physician History of Present Illness: Pt seen and examined at bedside. VNS is not set up. - Current Medication List Current Medications: Active Medications Aspirin (Asa -) 81 mg PO DAILY [facility] Last Admin: 08/12/17 09:15 Dose: 81 mg Atorvastatin Calcium (Lipitor -) 80 mg PO HS [facility] Last Admin: 08/11/17 21:10 Dose: 80 mg Calcium Acetate (Phoslo -) 1,334 mg PO TIDCM [facility] Last Admin: 08/12/17 12:05 Dose: 1,334 mg Carvedilol (Coreg -) 6.25 mg PO BID [facility] Last Admin: 08/12/17 09:15 Dose: 6.25 mg Docusate Sodium (Colace -) 300 mg PO HS PRN PRN Reason: CONSTIPATION Last Admin: 08/10/17 21:18 Dose: 300 mg Ferrous Sulfate (Feosol -) 325 mg PO DAILY [facility] Last Admin: 08/12/17 09:15 Dose: 325 mg Glimepiride (Amaryl -) 1 mg PO DAILY@0700 [facility] Last Admin: 08/12/17 06:33 Dose: 1 mg Lorazepam (Ativan -) 2 mg PO HS [facility] Last Admin: 08/11/17 21:09 Dose: 2 mg Pantoprazole Sodium (Protonix -) 20 mg PO DAILY [facility] Last Admin: 08/12/17 09:15 Dose: 20 mg Polyethylene Glycol (Miralax (For Daily Use) -) 17 gm PO DAILY [facility] Last Admin: 08/12/17 09:18 Dose: Not Given Pregabalin (Lyrica -) 100 mg PO DAILY [facility] Last Admin: 08/12/17 09:15 Dose: 100 mg Sitagliptin Phosphate (Januvia -) 25 mg PO DAILY@0700 [facility] Last Admin: 08/12/17 06:33 Dose: 25 mg Sodium Hypochlorite (Dakin's Solution 0.25% (Half-Strength) -) 1 applic TP DAILY [facility] Last Admin: 08/12/17 09:17 Dose: 1 applic Torsemide (Demadex -) 80 mg PO MOWEFR [facility] Last Admin: 08/11/17 12:40 Dose: Not Given - Objective Vital Signs: Vital Signs Temperature 98.2 F 08/12/17 14:11 Pulse Rate 72 08/12/17 14:11 Respiratory Rate 20 08/12/17 14:11 Blood Pressure 115/69 08/12/17 14:11 O2 Sat by Pulse Oximetry (%) 97 08/12/17 06:19 Constitutional: Yes: Calm Eyes: Yes: Conjunctiva Clear HENT: Yes: Atraumatic Neck: Yes: Supple Cardiovascular: Yes: S1, S2 Respiratory: Yes: CTA Bilaterally Gastrointestinal: Yes: Soft, Abdomen, Obese Genitourinary: Yes: WNL Musculoskeletal: Yes: WNL Edema: Yes Edema: LLE: 1+, RLE: 1+ Neurological: Yes: Oriented Psychiatric: Yes: Oriented Labs: CBC, BMP 08/11/17 09:00 08/11/17 09:00 Problem List - Problems (1) ESRD (end stage renal disease) Code(s): N18.6 - END STAGE RENAL DISEASE Assessment/Plan Current Medications Generic Name Dose Route Start Last Admin Trade Name Freq PRN Reason Stop Dose Admin Aspirin 81 mg 08/09/17 11:00 08/12/17 09:15 Asa - PO 81 mg DAILY [facility] Administration Atorvastatin Calcium 80 mg 08/09/17 22:00 08/11/17 21:10 Lipitor - PO 80 mg HS [facility] Administration Calcium Acetate 1,334 mg 08/09/17 12:00 08/12/17 12:05 Phoslo - PO 1,334 mg TIDCM [facility] Administration Carvedilol 6.25 mg 08/09/17 11:00 08/12/17 09:15 Coreg - PO 6.25 mg BID [facility] Administration Docusate Sodium 300 mg 08/09/17 10:46 08/10/17 21:18 Colace - PO 300 mg HS PRN Administration CONSTIPATION Ferrous Sulfate 325 mg 08/09/17 11:00 08/12/17 09:15 Feosol - PO 325 mg DAILY [facility] Administration Glimepiride 1 mg 08/10/17 07:00 08/12/17 06:33 Amaryl - PO 1 mg DAILY@0700 [facility] Administration Lorazepam 2 mg 08/09/17 22:00 08/11/17 21:09 Ativan - PO 2 mg HS [facility] Administration Pantoprazole Sodium 20 mg 08/09/17 11:00 08/12/17 09:15 Protonix - PO 20 mg DAILY [facility] Administration Polyethylene Glycol 17 gm 08/09/17 11:00 06/09/18 09:18 Miralax (For Daily Use) - PO Not Given DAILY [facility] Pregabalin 100 mg 08/09/17 11:00 08/12/17 09:15 Lyrica - PO 100 mg DAILY [facility] Administration Sitagliptin Phosphate 25 mg 08/10/17 07:00 08/12/17 06:33 Januvia - PO 25 mg DAILY@0700 [facility] Administration Sodium Hypochlorite 1 applic 08/11/17 10:00 08/12/17 09:17 Dakin's Solution 0.25% (Half-Strength) - TP 1 applic DAILY [facility] Administration Torsemide 80 mg 08/09/17 11:00 08/11/17 12:40 Demadex - PO Not Given [facility] Impression 1. ESRD 2. anemia 3. HTN 4. morbid obesity 5. CVA 6. hyperlipidemia 7. proteinuria - nephrotic 8. PVD 9. foot ulcer Plan - will arrange for HD tomorrow - vns not set up yet - pt is calm and very pleasant - resume home meds on discharge - wound care - will need follow up with podiatry and vascular after discharge as well - will follow Dr Win
[2017-08-12] MEDS: LORazepam 1 MG TABLET PO SCH (21:54)
[2017-08-12] MEDS: ATORVASTATIN CA 80 MG TABLET (FP) PO SCH (21:54)
[2017-08-13] MEDS: sitaGLIPtin PHOSPHATE 25 MG TABLET (FP) PO SCH (06:02)
[2017-08-13] MEDS: GLIMEPIRIDE 1 MG TABLET (FP) PO SCH (06:02)
[2017-08-13] MEDS: CALCIUM ACETATE 667 MG CAPSULE (FP) PO SCH ×3 (08:45→16:40)
[2017-08-13] MEDS: FERROUS SO4 325 MG TABLET (FP) PO SCH (09:17)
[2017-08-13] MEDS: PANTOPRAZOLE 20 MG TABLET (FP) PO SCH (09:17)
[2017-08-13] MEDS: POLYETHYLENE GLYCOL 3350 119 GM BTL PO SCH (09:18)
[2017-08-13] MEDS: ASPIRIN 81 MG CHEWABLE TABLETS PO SCH (09:18)
[2017-08-13] MEDS: CARVEDILOL 6.25 MG TABLET (FP) PO SCH ×2 (09:18→22:11)
[2017-08-13] MEDS: PREGABALIN 50 MG CAPSULE PO SCH (09:18)
[2017-08-13] MEDS: SODIUM HYPOCHLORITE 0.25%- 473 ML BULK BOTTLE TP SCH (09:19)
[2017-08-13] MEDS ORDERED: HEPARIN NA (PORCINE) 5,000 UNITS/ML 1ML VIAL IVPUSH ONE (10:45)
[2017-08-13 11:16] LABS: HEMATOCRIT 33.8 % (35.4-49); HEMOGLOBIN 11.2 GM/dL (11.7-16.9); MCH 29.2 pg (25.7-33.7); MCHC 33.1 g/dl (32.0-35.9); MEAN CELL VOLUME 88.4 fl (80-96); MEAN PLT VOLUME 9.9 fl (7.5-11.1); PLATELET COUNT 206 K/MM3 (134-434); RBC 3.82 M/mm3 (4.00-5.60); RDW 15.4 % (11.9-15.9); WHITE BLOOD COUNT 6.2 K/mm3 (4.0-10.0)
[2017-08-13 11:26] LABS: ANION GAP 10 (8-16); BLOOD UREA NITROGEN 80 mg/dL (7-18); CALCIUM 8.9 mg/dL (8.5-10.1); CHLORIDE 101 mmol/L (98-107); CO2 25 mmol/L (21-32); GLUCOSE,RANDOM 123 mg/dL (74-106); POTASSIUM 4.6 mmol/L (3.5-5.1); SODIUM 136 mmol/L (136-145)
[2017-08-13 11:34] LABS: CREATININE 9.3 mg/dL (0.7-1.3)
--- NOTE | 2017-08-13 12:32 | PN ---
Progress Note (short form) - Note Progress Note: Subjective: The patient was seen in dialysis, he states his mother and brother do not want him to go home because his mother is having surgery on Monday and she is fearful she will "catch MRSA". Current Medications Generic Name Dose Route Start Last Admin Trade Name Freq PRN Reason Stop Dose Admin Aspirin 81 mg 08/09/17 11:00 08/13/17 09:18 Asa - PO 81 mg DAILY [facility] Administration Atorvastatin Calcium 80 mg 08/09/17 22:00 08/12/17 21:54 Lipitor - PO 80 mg HS [facility] Administration Calcium Acetate 1,334 mg 08/09/17 12:00 08/13/17 11:30 Phoslo - PO Not Given TIDCM [facility] Carvedilol 6.25 mg 08/09/17 11:00 08/13/17 09:18 Coreg - PO 6.25 mg BID [facility] Administration Docusate Sodium 300 mg 08/09/17 10:46 08/10/17 21:18 Colace - PO 300 mg HS PRN Administration CONSTIPATION Epoetin Lawrence 4,000 unit 08/13/17 14:28 Epogen - IVPUSH 08/13/17 14:29 ONCE ONE Ferrous Sulfate 325 mg 08/09/17 11:00 08/13/17 09:17 Feosol - PO 325 mg DAILY [facility] Administration Glimepiride 1 mg 08/10/17 07:00 08/13/17 06:02 Amaryl - PO Not Given DAILY@0700 [facility] Sodium Chloride 250 mls @ 3,000 mls/hr 08/12/17 14:28 Normal Saline - IV 08/13/17 14:28 PRN PRN Hypotension during Dialysis Lorazepam 2 mg 08/09/17 22:00 08/12/17 21:54 Ativan - PO 2 mg HS [facility] Administration Pantoprazole Sodium 20 mg 08/09/17 11:00 08/13/17 09:17 Protonix - PO 20 mg DAILY [facility] Administration Polyethylene Glycol 17 gm 08/09/17 11:00 08/13/17 09:18 Miralax (For Daily Use) - PO Not Given DAILY [facility] Pregabalin 100 mg 08/09/17 11:00 08/13/17 09:18 Lyrica - PO 100 mg DAILY [facility] Administration Sitagliptin Phosphate 25 mg 08/10/17 07:00 08/13/17 06:02 Januvia - PO Not Given DAILY@0700 COUNTS INCLUDE 234 BEDS AT THE [facility] Sodium Hypochlorite 1 applic 08/11/17 10:00 08/13/17 09:19 Dakin's Solution 0.25% (Half-Strength) - TP 1 applic DAILY [facility] Administration Torsemide 80 mg 08/09/17 11:00 08/11/17 12:40 Demadex - PO Not Given MOWEFR [facility] Objective: Vital Signs Period Temp Pulse Resp BP Sys/Leon Pulse Ox Last 24 Hr 98 F-98.3 F 65-80 18-20 100-136/63-78 98-98 Physical Exam: General: NAD, A&Ox3 Patient refused remainder of exam CBCD WBC 6.2 K/mm3 (4.0-10.0) 08/13/17 10:30 RBC 3.82 M/mm3 (4.00-5.60) L 08/13/17 10:30 Hgb 11.2 GM/dL (11.7-16.9) L 08/13/17 10:30 Hct 33.8 % (35.4-49) L 08/13/17 10:30 MCV 88.4 fl (80-96) 08/13/17 10:30 MCHC 33.1 g/dl (32.0-35.9) 08/13/17 10:30 RDW 15.4 % (11.9-15.9) 08/13/17 10:30 Plt Count 206 K/MM3 (134-434) 08/13/17 10:30 MPV 9.9 fl (7.5-11.1) 08/13/17 10:30 CMP Sodium 136 mmol/L (136-145) 08/13/17 10:30 Potassium 4.6 mmol/L (3.5-5.1) 08/13/17 10:30 Chloride 101 mmol/L (98-107) 08/13/17 10:30 Carbon Dioxide 25 mmol/L (21-32) D 08/13/17 10:30 Anion Gap 10 (8-16) 08/13/17 10:30 BUN 80 mg/dL (7-18) H 08/13/17 10:30 Creatinine 9.3 mg/dL (0.7-1.3) H* 08/13/17 10:30 Creat Clearance w eGFR 7.89 (>60) 08/09/17 05:56 Random Glucose 123 mg/dL (74-106) H D 08/13/17 10:30 Calcium 8.9 mg/dL (8.5-10.1) 08/13/17 10:30 Total Bilirubin 0.4 mg/dL (0.2-1.0) 08/09/17 05:56 AST 41 U/L (15-37) H 08/09/17 05:56 ALT 40 U/L (12-78) 08/09/17 05:56 Alkaline Phosphatase 65 U/L (45-117) 08/09/17 05:56 Total Protein 7.1 g/dl (6.4-8.2) 08/09/17 05:56 Albumin 3.1 g/dl (3.4-5.0) L 08/09/17 05:56 Assessment: This is a 57 year old male with PMHx of anemia, asthma, COPD, DM, HTN, ESRD on HD (TThS), PVD (followed in the wound care clinic with Dr. Alcantara), CVA x2, left TMA, gastric bypass, who presented to the ED for a psychiatric evaluation. Plan: 1) Suicidal/homicidal ideation - Patient states he "should never have said what I said" and "I don't have guns in my house" - Seen by psych and cleared for discharge when medically stable - Patient is competent at this time to make his own decisions. He is not a threat to himself or others at this time - Appreciate psych consult 2) Left foot TMA stump dehiscence ulcer - For wound vac placement - Discussed with Dr. Alcantara, can follow-up in wound clinic twice a week or have VNS change dressing 3 times a week 3) anemia - Continue ferrous sulfate 4) ESRD on HD - Continue HD as scheduled 5) HTN - Continue home medications 6) F/E/N: - Diabetic diet - Monitor electrolytes 7) Prophylaxis: - OOB ambulating 8) Dispo: - Discussed with Mari, case management that patient's family does not want him to go home. Patient is agreeable to SNF placement. CODE STATUS: FULL CODE Visit type - Emergency Visit Emergency Visit: Yes ED Registration Date: 08/09/17 Care time: The patient presented to the Emergency Department on the above date and was hospitalized for further evaluation of their emergent condition. - New Patient This patient is new to me today: No - Critical Care Critical Care patient: No
[2017-08-13] MEDS ORDERED: EPOETIN ALFA 2,000 UNIT/1 ML VIAL IVPUSH ONE (14:28)
[2017-08-13 15:17] LABS: CREATININE 4.8 mg/dL (0.7-1.3)
--- NOTE | 2017-08-13 16:24 | PN ---
Progress Note, Physician History of Present Illness: Pt seen and examined at bedside. He is awake and alert. He denies shortness of breath. He tolerated HD. - Current Medication List Current Medications: Active Medications Aspirin (Asa -) 81 mg PO DAILY [facility] Last Admin: 08/13/17 09:18 Dose: 81 mg Atorvastatin Calcium (Lipitor -) 80 mg PO HS [facility] Last Admin: 08/12/17 21:54 Dose: 80 mg Calcium Acetate (Phoslo -) 1,334 mg PO TIDCM [facility] Last Admin: 08/13/17 11:30 Dose: Not Given Carvedilol (Coreg -) 6.25 mg PO BID [facility] Last Admin: 08/13/17 09:18 Dose: 6.25 mg Docusate Sodium (Colace -) 300 mg PO HS PRN PRN Reason: CONSTIPATION Last Admin: 08/10/17 21:18 Dose: 300 mg Ferrous Sulfate (Feosol -) 325 mg PO DAILY [facility] Last Admin: 08/13/17 09:17 Dose: 325 mg Glimepiride (Amaryl -) 1 mg PO DAILY@0700 [facility] Last Admin: 08/13/17 06:02 Dose: Not Given Lorazepam (Ativan -) 2 mg PO HS [facility] Last Admin: 08/12/17 21:54 Dose: 2 mg Pantoprazole Sodium (Protonix -) 20 mg PO DAILY [facility] Last Admin: 08/13/17 09:17 Dose: 20 mg Polyethylene Glycol (Miralax (For Daily Use) -) 17 gm PO DAILY [facility] Last Admin: 08/13/17 09:18 Dose: Not Given Pregabalin (Lyrica -) 100 mg PO DAILY [facility] Last Admin: 08/13/17 09:18 Dose: 100 mg Sitagliptin Phosphate (Januvia -) 25 mg PO DAILY@0700 [facility] Last Admin: 08/13/17 06:02 Dose: Not Given Sodium Hypochlorite (Dakin's Solution 0.25% (Half-Strength) -) 1 applic TP DAILY [facility] Last Admin: 08/13/17 09:19 Dose: 1 applic Torsemide (Demadex -) 80 mg PO MOWEFR [facility] Last Admin: 08/11/17 12:40 Dose: Not Given - Objective Vital Signs: Vital Signs Temperature 98.5 F 08/13/17 14:30 Pulse Rate 76 08/13/17 14:30 Respiratory Rate 20 08/13/17 14:30 Blood Pressure 132/74 08/13/17 14:30 O2 Sat by Pulse Oximetry (%) 98 08/13/17 06:11 Constitutional: Yes: Calm Eyes: Yes: Conjunctiva Clear HENT: Yes: Atraumatic Neck: Yes: Supple Cardiovascular: Yes: S1, S2 Respiratory: Yes: CTA Bilaterally Gastrointestinal: Yes: Normal Bowel Sounds, Soft, Abdomen, Obese Genitourinary: Yes: WNL Musculoskeletal: Yes: WNL Edema: Yes Edema: LLE: 1+, RLE: 1+ Neurological: Yes: Oriented Psychiatric: Yes: Oriented Labs: CBC, BMP 08/13/17 10:30 08/13/17 13:50 Problem List - Problems (1) ESRD (end stage renal disease) Code(s): N18.6 - END STAGE RENAL DISEASE Assessment/Plan Current Medications Generic Name Dose Route Start Last Admin Trade Name Freq PRN Reason Stop Dose Admin Aspirin 81 mg 08/09/17 11:00 08/13/17 09:18 Asa - PO 81 mg DAILY [facility] Administration Atorvastatin Calcium 80 mg 08/09/17 22:00 08/12/17 21:54 Lipitor - PO 80 mg HS [facility] Administration Calcium Acetate 1,334 mg 08/09/17 12:00 08/13/17 11:30 Phoslo - PO Not Given TIDCM [facility] Carvedilol 6.25 mg 08/09/17 11:00 08/13/17 09:18 Coreg - PO 6.25 mg BID [facility] Administration Docusate Sodium 300 mg 08/09/17 10:46 08/10/17 21:18 Colace - PO 300 mg HS PRN Administration CONSTIPATION Ferrous Sulfate 325 mg 08/09/17 11:00 08/13/17 09:17 Feosol - PO 325 mg DAILY [facility] Administration Glimepiride 1 mg 08/10/17 07:00 08/13/17 06:02 Amaryl - PO Not Given DAILY@0700 [facility] Lorazepam 2 mg 08/09/17 22:00 08/12/17 21:54 Ativan - PO 2 mg HS [facility] Administration Pantoprazole Sodium 20 mg 08/09/17 11:00 08/13/17 09:17 Protonix - PO 20 mg DAILY [facility] Administration Polyethylene Glycol 17 gm 08/09/17 11:00 08/13/17 09:18 Miralax (For Daily Use) - PO Not Given DAILY [facility] Pregabalin 100 mg 08/09/17 11:00 08/13/17 09:18 Lyrica - PO 100 mg DAILY [facility] Administration Sitagliptin Phosphate 25 mg 08/10/17 07:00 08/13/17 06:02 Januvia - PO Not Given DAILY@0700 [facility] Sodium Hypochlorite 1 applic 08/11/17 10:00 08/13/17 09:19 Dakin's Solution 0.25% (Half-Strength) - TP 1 applic DAILY [facility] Administration Torsemide 80 mg 08/09/17 11:00 08/11/17 12:40 Demadex - PO Not Given MOWEFR [facility] Impression 1. ESRD 2. anemia 3. HTN 4. morbid obesity 5. CVA 6. hyperlipidemia 7. proteinuria - nephrotic 8. PVD 9. foot ulcer Plan - HD today - pt is calm and very pleasant - pending dispo - wound care - will need follow up with podiatry and vascular after discharge as well - will follow Dr Win
[2017-08-13] MEDS: LORazepam 1 MG TABLET PO SCH (22:10)
[2017-08-13] MEDS: ATORVASTATIN CA 80 MG TABLET (FP) PO SCH (22:11)
[2017-08-14] MEDS: sitaGLIPtin PHOSPHATE 25 MG TABLET (FP) PO SCH (06:35)
[2017-08-14] MEDS: GLIMEPIRIDE 1 MG TABLET (FP) PO SCH (06:35)
[2017-08-14] MEDS: CALCIUM ACETATE 667 MG CAPSULE (FP) PO SCH ×3 (09:15→17:05)
[2017-08-14] MEDS: PANTOPRAZOLE 20 MG TABLET (FP) PO SCH (10:09)
[2017-08-14] MEDS: PREGABALIN 50 MG CAPSULE PO SCH (10:09)
[2017-08-14] MEDS: ASPIRIN 81 MG CHEWABLE TABLETS PO SCH (10:09)
[2017-08-14] MEDS: CARVEDILOL 6.25 MG TABLET (FP) PO SCH ×2 (10:10→21:14)
[2017-08-14] MEDS: FERROUS SO4 325 MG TABLET (FP) PO SCH (10:10)
[2017-08-14] MEDS: SODIUM HYPOCHLORITE 0.25%- 473 ML BULK BOTTLE TP SCH (10:12)
[2017-08-14] MEDS: POLYETHYLENE GLYCOL 3350 119 GM BTL PO SCH (10:13)
[2017-08-14] MEDS: TORSEMIDE 20 MG TABLET (FP) PO SCH (11:04)
--- NOTE | 2017-08-14 11:07 | PN ---
Progress Note (short form) - Note Progress Note: Subjective: The patient was seen in dialysis, he has no complaints at this time Current Medications Generic Name Dose Route Start Last Admin Trade Name Freq PRN Reason Stop Dose Admin Aspirin 81 mg 08/09/17 11:00 08/14/17 10:09 Asa - PO 81 mg DAILY [facility] Administration Atorvastatin Calcium 80 mg 08/09/17 22:00 08/13/17 22:11 Lipitor - PO 80 mg HS [facility] Administration Calcium Acetate 1,334 mg 08/09/17 12:00 08/14/17 09:15 Phoslo - PO 1,334 mg TIDCM [facility] Administration Carvedilol 6.25 mg 08/09/17 11:00 08/14/17 10:10 Coreg - PO 6.25 mg BID [facility] Administration Docusate Sodium 300 mg 08/09/17 10:46 08/10/17 21:18 Colace - PO 300 mg HS PRN Administration CONSTIPATION Ferrous Sulfate 325 mg 08/09/17 11:00 08/14/17 10:10 Feosol - PO 325 mg DAILY [facility] Administration Glimepiride 1 mg 08/10/17 07:00 08/14/17 06:35 Amaryl - PO Not Given DAILY@0700 [facility] Lorazepam 1 mg 08/14/17 22:00 Ativan - PO HS [facility] Pantoprazole Sodium 20 mg 08/09/17 11:00 08/14/17 10:09 Protonix - PO 20 mg DAILY [facility] Administration Polyethylene Glycol 17 gm 08/09/17 11:00 08/14/17 10:13 Miralax (For Daily Use) - PO Not Given DAILY [facility] Pregabalin 100 mg 08/09/17 11:00 08/14/17 10:09 Lyrica - PO 100 mg DAILY [facility] Administration Sitagliptin Phosphate 25 mg 08/10/17 07:00 08/14/17 06:35 Januvia - PO Not Given DAILY@0700 [facility] Sodium Hypochlorite 1 applic 08/11/17 10:00 08/14/17 10:12 Dakin's Solution 0.25% (Half-Strength) - TP 1 applic DAILY [facility] Administration Torsemide 80 mg 08/09/17 11:00 08/14/17 11:04 Demadex - PO 80 mg MOWEFR [facility] Administration Objective: Vital Signs Period Temp Pulse Resp BP Sys/Leon Pulse Ox Last 24 Hr 98 F-98.6 F 64-106 18-20 82-142/38-78 98-98 Physical Exam: General: NAD, A&Ox3 Patient refused remainder of exam CBCD WBC 6.2 K/mm3 (4.0-10.0) 08/13/17 10:30 RBC 3.82 M/mm3 (4.00-5.60) L 08/13/17 10:30 Hgb 11.2 GM/dL (11.7-16.9) L 08/13/17 10:30 Hct 33.8 % (35.4-49) L 08/13/17 10:30 MCV 88.4 fl (80-96) 08/13/17 10:30 MCHC 33.1 g/dl (32.0-35.9) 08/13/17 10:30 RDW 15.4 % (11.9-15.9) 08/13/17 10:30 Plt Count 206 K/MM3 (134-434) 08/13/17 10:30 MPV 9.9 fl (7.5-11.1) 08/13/17 10:30 CMP Sodium 136 mmol/L (136-145) 08/13/17 10:30 Potassium 4.6 mmol/L (3.5-5.1) 08/13/17 10:30 Chloride 101 mmol/L (98-107) 08/13/17 10:30 Carbon Dioxide 25 mmol/L (21-32) D 08/13/17 10:30 Anion Gap 10 (8-16) 08/13/17 10:30 BUN 36 mg/dL (7-18) H D 08/13/17 13:50 Creatinine 4.8 mg/dL (0.7-1.3) H D 08/13/17 13:50 Creat Clearance w eGFR 7.89 (>60) 08/09/17 05:56 Random Glucose 123 mg/dL (74-106) H D 08/13/17 10:30 Calcium 8.9 mg/dL (8.5-10.1) 08/13/17 10:30 Total Bilirubin 0.4 mg/dL (0.2-1.0) 08/09/17 05:56 AST 41 U/L (15-37) H 08/09/17 05:56 ALT 40 U/L (12-78) 08/09/17 05:56 Alkaline Phosphatase 65 U/L (45-117) 08/09/17 05:56 Total Protein 7.1 g/dl (6.4-8.2) 08/09/17 05:56 Albumin 3.1 g/dl (3.4-5.0) L 08/09/17 05:56 Assessment: This is a 57 year old male with PMHx of anemia, asthma, COPD, DM, HTN, ESRD on HD (TThS), PVD (followed in the wound care clinic with Dr. Alcantara), CVA x2, left TMA, gastric bypass, who presented to the ED for a psychiatric evaluation. Plan: 1) Suicidal/homicidal ideation - Patient states he "should never have said what I said" and "I don't have guns in my house" - Seen by psych and cleared for discharge when medically stable - Patient is competent at this time to make his own decisions. He is not a threat to himself or others at this time - Appreciate psych consult 2) Left foot TMA stump dehiscence ulcer - For wound vac placement - Discussed with Dr. Alcantara, can follow-up in wound clinic twice a week or have VNS change dressing 3 times a week 3) anemia - Continue ferrous sulfate 4) ESRD on HD - Continue HD as scheduled 5) HTN - Continue home medications 6) F/E/N: - Diabetic diet - Monitor electrolytes 7) Prophylaxis: - OOB ambulating 8) Dispo: - Discussed withGabriela geriatric social work professor, the patient's family does not want him to go home. Patient is agreeable to SNF placement. CODE STATUS: FULL CODE Visit type - Emergency Visit Emergency Visit: Yes ED Registration Date: 08/09/17 Care time: The patient presented to the Emergency Department on the above date and was hospitalized for further evaluation of their emergent condition. - New Patient This patient is new to me today: No - Critical Care Critical Care patient: No
[2017-08-14] MEDS ORDERED: SODIUM CHLORIDE 250 ML IV PRN (13:20)
--- NOTE | 2017-08-14 13:20 | PN ---
Progress Note, Physician History of Present Illness: Pt seen and examined at bedside. He is awake and alert. He denies shortness of breath. - Current Medication List Current Medications: Active Medications Aspirin (Asa -) 81 mg PO DAILY [facility] Last Admin: 08/14/17 10:09 Dose: 81 mg Atorvastatin Calcium (Lipitor -) 80 mg PO HS [facility] Last Admin: 08/13/17 22:11 Dose: 80 mg Calcium Acetate (Phoslo -) 1,334 mg PO TIDCM [facility] Last Admin: 08/14/17 12:39 Dose: 1,334 mg Carvedilol (Coreg -) 6.25 mg PO BID [facility] Last Admin: 08/14/17 10:10 Dose: 6.25 mg Docusate Sodium (Colace -) 300 mg PO HS PRN PRN Reason: CONSTIPATION Last Admin: 08/10/17 21:18 Dose: 300 mg Ferrous Sulfate (Feosol -) 325 mg PO DAILY [facility] Last Admin: 08/14/17 10:10 Dose: 325 mg Glimepiride (Amaryl -) 1 mg PO DAILY@0700 [facility] Last Admin: 08/14/17 06:35 Dose: Not Given Lorazepam (Ativan -) 1 mg PO HS [facility] Pantoprazole Sodium (Protonix -) 20 mg PO DAILY [facility] Last Admin: 08/14/17 10:09 Dose: 20 mg Polyethylene Glycol (Miralax (For Daily Use) -) 17 gm PO DAILY [facility] Last Admin: 08/14/17 10:13 Dose: Not Given Pregabalin (Lyrica -) 100 mg PO DAILY [facility] Last Admin: 08/14/17 10:09 Dose: 100 mg Sitagliptin Phosphate (Januvia -) 25 mg PO DAILY@0700 [facility] Last Admin: 08/14/17 06:35 Dose: Not Given Sodium Hypochlorite (Dakin's Solution 0.25% (Half-Strength) -) 1 applic TP DAILY [facility] Last Admin: 08/14/17 10:12 Dose: 1 applic Torsemide (Demadex -) 80 mg PO MOWEFR [facility] Last Admin: 08/14/17 11:04 Dose: 80 mg - Objective Vital Signs: Vital Signs Temperature 97.9 F 08/14/17 10:00 Pulse Rate 71 08/14/17 10:00 Respiratory Rate 18 08/14/17 10:00 Blood Pressure 119/63 08/14/17 10:00 O2 Sat by Pulse Oximetry (%) 99 08/14/17 09:00 Constitutional: Yes: Calm Eyes: Yes: Conjunctiva Clear HENT: Yes: Atraumatic Neck: Yes: Supple Cardiovascular: Yes: S1, S2 Respiratory: Yes: CTA Bilaterally Gastrointestinal: Yes: Soft, Abdomen, Obese Genitourinary: Yes: WNL Edema: Yes Edema: LLE: 1+, RLE: 1+ Neurological: Yes: Oriented Psychiatric: Yes: Oriented Labs: CBC, BMP 08/13/17 10:30 08/13/17 13:50 Problem List - Problems (1) ESRD (end stage renal disease) Code(s): N18.6 - END STAGE RENAL DISEASE Assessment/Plan Current Medications Generic Name Dose Route Start Last Admin Trade Name Freq PRN Reason Stop Dose Admin Aspirin 81 mg 08/09/17 11:00 08/14/17 10:09 Asa - PO 81 mg DAILY [facility] Administration Atorvastatin Calcium 80 mg 08/09/17 22:00 08/13/17 22:11 Lipitor - PO 80 mg HS [facility] Administration Calcium Acetate 1,334 mg 08/09/17 12:00 08/14/17 12:39 Phoslo - PO 1,334 mg TIDCM [facility] Administration Carvedilol 6.25 mg 08/09/17 11:00 08/14/17 10:10 Coreg - PO 6.25 mg BID [facility] Administration Docusate Sodium 300 mg 08/09/17 10:46 08/10/17 21:18 Colace - PO 300 mg HS PRN Administration CONSTIPATION Ferrous Sulfate 325 mg 08/09/17 11:00 08/14/17 10:10 Feosol - PO 325 mg DAILY [facility] Administration Glimepiride 1 mg 08/10/17 07:00 08/14/17 06:35 Amaryl - PO Not Given DAILY@0700 [facility] Lorazepam 1 mg 08/14/17 22:00 Ativan - PO HS [facility] Pantoprazole Sodium 20 mg 08/09/17 11:00 08/14/17 10:09 Protonix - PO 20 mg DAILY [facility] Administration Polyethylene Glycol 17 gm 08/09/17 11:00 08/14/17 10:13 Miralax (For Daily Use) - PO Not Given DAILY [facility] Pregabalin 100 mg 08/09/17 11:00 08/14/17 10:09 Lyrica - PO 100 mg DAILY [facility] Administration Sitagliptin Phosphate 25 mg 08/10/17 07:00 08/14/17 06:35 Januvia - PO Not Given DAILY@0700 [facility] Sodium Hypochlorite 1 applic 08/11/17 10:00 08/14/17 10:12 Dakin's Solution 0.25% (Half-Strength) - TP 1 applic DAILY [facility] Administration Torsemide 80 mg 08/09/17 11:00 08/14/17 11:04 Demadex - PO 80 mg MOWEFR [facility] Administration Impression 1. ESRD 2. anemia 3. HTN 4. morbid obesity 5. CVA 6. hyperlipidemia 7. proteinuria - nephrotic 8. PVD 9. foot ulcer Plan - HD in am - discharge planning in progress - pt is calm and very pleasant - wound care - will follow Dr Win
[2017-08-14] MEDS: ATORVASTATIN CA 80 MG TABLET (FP) PO SCH (21:14)
[2017-08-14] MEDS ORDERED: LORazepam 1 MG TABLET PO SCH (22:00)
[2017-08-15] MEDS: sitaGLIPtin PHOSPHATE 25 MG TABLET (FP) PO SCH (06:10)
[2017-08-15] MEDS: GLIMEPIRIDE 1 MG TABLET (FP) PO SCH (06:10)
[2017-08-15] MEDS ORDERED: PT OWN MED DRAWER 7, Y5N ONE (06:32)
[2017-08-15] MEDS: CALCIUM ACETATE 667 MG CAPSULE (FP) PO SCH ×3 (08:55→17:23)
[2017-08-15] MEDS: POLYETHYLENE GLYCOL 3350 119 GM BTL PO SCH (09:13)
[2017-08-15 11:14] LABS: HEMATOCRIT 34.7 % (35.4-49); HEMOGLOBIN 11.4 GM/dL (11.7-16.9); MCH 29.2 pg (25.7-33.7); MCHC 32.9 g/dl (32.0-35.9); MEAN CELL VOLUME 88.7 fl (80-96); MEAN PLT VOLUME 10.3 fl (7.5-11.1); PLATELET COUNT 188 K/MM3 (134-434); RBC 3.91 M/mm3 (4.00-5.60); RDW 15.8 % (11.9-15.9); WHITE BLOOD COUNT 6.3 K/mm3 (4.0-10.0)
[2017-08-15 11:38] LABS: ANION GAP 11 (8-16); BLOOD UREA NITROGEN 68 mg/dL (7-18); CALCIUM 8.7 mg/dL (8.5-10.1); CHLORIDE 101 mmol/L (98-107); CO2 25 mmol/L (21-32); GLUCOSE,RANDOM 146 mg/dL (74-106); POTASSIUM 4.4 mmol/L (3.5-5.1); SODIUM 137 mmol/L (136-145)
[2017-08-15 11:39] LABS: CREATININE 8.8 mg/dL (0.7-1.3)
[2017-08-15] MEDS ORDERED: EPOETIN ALFA 3,000 UNIT/1 ML ML IVPUSH ONE (13:20)
[2017-08-15] MEDS ORDERED: HEPARIN NA (PORCINE) 5,000 UNITS/ML 1ML VIAL IVPUSH ONE (13:20)
[2017-08-15] MEDS ORDERED: EPOETIN ALFA 2,000 UNIT/1 ML VIAL IVPUSH ONE (13:20)
--- NOTE | 2017-08-15 15:05 | DS ---
Physical Exam: SUBJECTIVE: Patient seen and examined. He has no complaints, he wishes to go home after HD. OBJECTIVE: Vital Signs Period Temp Pulse Resp BP Sys/Leon Pulse Ox Last 24 Hr 97.7 F-98.4 F 63-79 18-20 119-155/59-89 97-98 PE Neuro: alert, awake, , cn 2-12intact Pulm: CTAB CV: s1 s2 rrr Abd: s nd nt +bs Ext: warm, L Foot wound dressed cdi Laboratory Results - last 24 hr 08/15/17 08/15/17 10:45 10:45 WBC 6.3 RBC 3.91 L Hgb 11.4 L Hct 34.7 L MCV 88.7 MCH 29.2 MCHC 32.9 RDW 15.8 Plt Count 188 MPV 10.3 Sodium 137 Potassium 4.4 Chloride 101 Carbon Dioxide 25 Anion Gap 11 BUN 68 H D Creatinine 8.8 H* D POC Glucometer Random Glucose 146 H Calcium 8.7 HOSPITAL COURSE: Date of Admission:08/09/17 Date of Discharge: 08/15/17 Minutes to complete discharge: 39 Discharge Summary Reason For Visit: SUICIDAL IDEATION Current Active Problems Suicidal ideation (Acute) Hospital Course: Initial Hospital Course: Briefly, this is a 57 year old man, with pmhx of anemia, asthma, COPD, diabetes , HTN, ESRD (on Hemodialysis - TTS), PVD (followed in the wound care clinic with Dr. Alcantara), CVAx2 (w/LLE residual weakness), Left TMA, gastric bypass, MRSA, ESBL E.coli, presented from [facility] for a psychiatric evaluation. As per patient, he has intense frustration having been in and out of various nursing homes since May. He was being discharged from [facility] a week ago. At the rehabilitation center the patient reports he is on isolation and does minimal rehabilitation exercises. He felt frustrated with his experience and expressed suicidal and homicidal ideation to staff members at that time he was then sent to [facility] for psych evaluation. Subsequent Hospital Course/Progress Note/DC summary: Plan: 1. Suicidal/homicidal ideation - Patient states he "should never have said what I said" and "I don't have guns in my house" - Seen by psych and cleared for discharge when medically stable - Patient is competent at this time to make his own decisions. He is not a threat to himself or others at this time 2. Left foot TMA stump dehiscence ulcer - For wound vac placement, will be arranged at [facility] for pt - Discussed with Dr. Alcantara, can follow-up in wound clinic twice a week or have VNS change dressing 3 times a week 3. Anemia - Continue ferrous sulfate 4. ESRD on HD - Continue HD as scheduled, 5. HTN - Continue home medications Dispo: - Transfer to [facility], following rehab, plan is home and wound vac will be arranged by [facility], per social work team here Condition: Stable - Instructions Diet, Activity, Other Instructions: Please return to the ED with new, persistent, or worsening symptoms. Please follow-up with providers as indicated. Wound care: Change wound vac 3 times per week. Set the wound vac to 125 mmHg continuous. Referrals: Balaji Alcantara MD [Staff Physician] - (Please follow-up with Dr. Alcantara on 08/15/17. ) Hai Davis [Primary Care Provider] - 1 Week Brigitte Win MD [Staff Physician] - Disposition: [facility] - Home Medications Comprehensive Discharge Medication List: Ambulatory Orders Omeprazole [Prilosec (RX)] 20 mg PO DAILY 08/13/14 Atorvastatin Ca [Lipitor] 80 mg PO HS 05/24/16 Ferrous Sulfate [Feosol] 1 tab PO DAILY 08/02/16 Albuterol Sulfate [Proair Respiclick] 90 mcg IH BID 11/13/16 Cholecalciferol (Vitamin D3) [Vitamin D3] 2,000 unit PO DAILY 11/13/16 Aspirin [ASA -] 81 mg PO DAILY #30 tab.chew 11/15/16 Pregabalin [Lyrica -] 100 mg PO DAILY MDD 50 mg 04/19/17 Calcium Acetate [Phoslo -] 1,334 mg PO TIDCM capsule 04/27/17 Polyethylene Glycol 3350 [Miralax 119 gm Btl -] 17 gm PO DAILY bottle 04/27/17 Carvedilol [Coreg -] 6.25 mg PO BID tablet 07/10/17 Oxycodone HCl 5 mg PO Q8H PRN #10 tablet MDD 15 07/10/17 Torsemide [Demadex -] 80 mg PO MOWEFR tablet 07/10/17 Glimepiride [Glimepiride -] 1 mg PO DAILY@0700 tablet 08/03/17 Sitagliptin Phosphate [Januvia -] 25 mg PO DAILY@0700 tab 08/03/17 Sodium Hypochlorite [Dakin's Solution 0.25% (Half-Strength) -] 1 applic TP DAILY ml 08/03/17 Docusate Sodium [Colace -] 300 mg PO HS PRN 08/08/17 Lorazepam [Ativan] 2 mg PO HS MDD 1 08/08/17 This patient is new to me today: Yes Date on this admission: 08/15/17 Emergency Visit: Yes ED Registration Date: 08/09/17 Care time: The patient presented to the Emergency Department on the above date and was hospitalized for further evaluation of their emergent condition. Critical Care patient: No - Discharge Referral Referred to [facility] Med [facility] No
--- NOTE | 2017-08-15 15:08 | PN ---
Progress Note, Physician History of Present Illness: Pt see and examined at bedside. He tolerated HD today. - Current Medication List Current Medications: Active Medications Aspirin (Asa -) 81 mg PO DAILY [facility] Last Admin: 08/14/17 10:09 Dose: 81 mg Atorvastatin Calcium (Lipitor -) 80 mg PO HS [facility] Last Admin: 08/14/17 21:14 Dose: 80 mg Calcium Acetate (Phoslo -) 1,334 mg PO TIDCM [facility] Last Admin: 08/15/17 12:08 Dose: Not Given Carvedilol (Coreg -) 6.25 mg PO BID [facility] Last Admin: 08/14/17 21:14 Dose: 6.25 mg Docusate Sodium (Colace -) 300 mg PO HS PRN PRN Reason: CONSTIPATION Last Admin: 08/10/17 21:18 Dose: 300 mg Ferrous Sulfate (Feosol -) 325 mg PO DAILY [facility] Last Admin: 08/14/17 10:10 Dose: 325 mg Glimepiride (Amaryl -) 1 mg PO DAILY@0700 [facility] Last Admin: 08/15/17 06:10 Dose: Not Given Lorazepam (Ativan -) 1 mg PO HS [facility] Last Admin: 08/14/17 21:14 Dose: 1 mg Pantoprazole Sodium (Protonix -) 20 mg PO DAILY [facility] Last Admin: 08/14/17 10:09 Dose: 20 mg Polyethylene Glycol (Miralax (For Daily Use) -) 17 gm PO DAILY [facility] Last Admin: 08/15/17 09:13 Dose: Not Given Pregabalin (Lyrica -) 100 mg PO DAILY [facility] Last Admin: 08/14/17 10:09 Dose: 100 mg Sitagliptin Phosphate (Januvia -) 25 mg PO DAILY@0700 [facility] Last Admin: 08/15/17 06:10 Dose: Not Given Sodium Hypochlorite (Dakin's Solution 0.25% (Half-Strength) -) 1 applic TP DAILY [facility] Last Admin: 08/14/17 10:12 Dose: 1 applic Torsemide (Demadex -) 80 mg PO MOWEFR [facility] Last Admin: 08/14/17 11:04 Dose: 80 mg - Objective Vital Signs: Vital Signs Temperature 97.9 F 08/15/17 09:12 Pulse Rate 72 08/15/17 12:35 Respiratory Rate 18 08/15/17 12:35 Blood Pressure 144/82 08/15/17 12:35 O2 Sat by Pulse Oximetry (%) 98 08/15/17 09:12 Constitutional: Yes: Calm Eyes: Yes: Conjunctiva Clear HENT: Yes: Atraumatic Neck: Yes: Supple Cardiovascular: Yes: S1, S2 Respiratory: Yes: CTA Bilaterally Gastrointestinal: Yes: Soft Genitourinary: Yes: WNL Musculoskeletal: Yes: WNL Edema: Yes Edema: LLE: 1+, RLE: 1+ Neurological: Yes: Oriented Psychiatric: Yes: Oriented Labs: CBC, BMP 08/15/17 10:45 08/15/17 10:45 Problem List - Problems (1) ESRD (end stage renal disease) Code(s): N18.6 - END STAGE RENAL DISEASE Assessment/Plan Current Medications Generic Name Dose Route Start Last Admin Trade Name Freq PRN Reason Stop Dose Admin Aspirin 81 mg 08/09/17 11:00 08/14/17 10:09 Asa - PO 81 mg DAILY [facility] Administration Atorvastatin Calcium 80 mg 08/09/17 22:00 08/14/17 21:14 Lipitor - PO 80 mg HS [facility] Administration Calcium Acetate 1,334 mg 08/09/17 12:00 08/15/17 12:08 Phoslo - PO Not Given TIDCM [facility] Carvedilol 6.25 mg 08/09/17 11:00 08/14/17 21:14 Coreg - PO 6.25 mg BID [facility] Administration Docusate Sodium 300 mg 08/09/17 10:46 08/10/17 21:18 Colace - PO 300 mg HS PRN Administration CONSTIPATION Ferrous Sulfate 325 mg 08/09/17 11:00 08/14/17 10:10 Feosol - PO 325 mg DAILY [facility] Administration Glimepiride 1 mg 08/10/17 07:00 08/15/17 06:10 Amaryl - PO Not Given DAILY@0700 [facility] Lorazepam 1 mg 08/14/17 22:00 08/14/17 21:14 Ativan - PO 1 mg HS [facility] Administration Pantoprazole Sodium 20 mg 08/09/17 11:00 08/14/17 10:09 Protonix - PO 20 mg DAILY [facility] Administration Polyethylene Glycol 17 gm 08/09/17 11:00 08/15/17 09:13 Miralax (For Daily Use) - PO Not Given DAILY [facility] Pregabalin 100 mg 08/09/17 11:00 08/14/17 10:09 Lyrica - PO 100 mg DAILY [facility] Administration Sitagliptin Phosphate 25 mg 08/10/17 07:00 08/15/17 06:10 Januvia - PO Not Given DAILY@0700 [facility] Sodium Hypochlorite 1 applic 08/11/17 10:00 08/14/17 10:12 Dakin's Solution 0.25% (Half-Strength) - TP 1 applic DAILY [facility] Administration Torsemide 80 mg 08/09/17 11:00 08/14/17 11:04 Demadex - PO 80 mg MOWEFR [facility] Administration Impression 1. ESRD 2. anemia 3. HTN 4. morbid obesity 5. CVA 6. hyperlipidemia 7. proteinuria - nephrotic 8. PVD 9. foot ulcer Plan - pt tolerated HD today - discussed with hospitalist - HD scheduled as otupt - pt is calm and very pleasant - wound care - will follow Dr Win
[2017-08-15] MEDS: SODIUM HYPOCHLORITE 0.25%- 473 ML BULK BOTTLE TP SCH (15:51)
[2017-08-15] MEDS: ASPIRIN 81 MG CHEWABLE TABLETS PO SCH (15:52)
[2017-08-15] MEDS: PANTOPRAZOLE 20 MG TABLET (FP) PO SCH (15:52)
[2017-08-15] MEDS: PREGABALIN 50 MG CAPSULE PO SCH (15:52)
[2017-08-15] MEDS: FERROUS SO4 325 MG TABLET (FP) PO SCH (15:52)
[2017-08-15] MEDS: CARVEDILOL 6.25 MG TABLET (FP) PO SCH (15:52)
[2017-08-15 19:06] VITALS: BP 138/80; PULSE 81; TEMP 98.8
== END 2017-08-15 21:56 | disposition home or self-care (01) | DRG 880 ==
LOC: JER 18:44 → JERBED 22:57 → OBSVTOIN 08-09 11:38 → J7W 08-09 18:45
PROVIDERS: ADMIT Internal Medicine; ATTEND Nurse Practitioner Acute Care
PROC: 5A1D70Z Performance of Urinary Filtration, Intermittent, Less than 6 Hours Per Day (ICD-10-PCS; principal; 2017-08-11)
PROC: 5A1D70Z Performance of Urinary Filtration, Intermittent, Less than 6 Hours Per Day (ICD-10-PCS; 2017-08-13)
PROC: 5A1D70Z Performance of Urinary Filtration, Intermittent, Less than 6 Hours Per Day (ICD-10-PCS; 2017-08-15)
DX: R45.851 Suicidal ideations (principal); N18.6 End stage renal disease; I69.354 Hemiplegia and hemiparesis following cerebral infarction affecting left non-dominant side; Z68.41 Body mass index [BMI] 40.0-44.9, adult; L98.498 Non-pressure chronic ulcer of skin of other sites with other specified severity; I12.0 Hypertensive chronic kidney disease with stage 5 chronic kidney disease or end stage renal disease; J44.9 Chronic obstructive pulmonary disease, unspecified; D64.9 Anemia, unspecified; I73.9 Peripheral vascular disease, unspecified; R45.850 Homicidal ideations; K21.9 Gastro-esophageal reflux disease without esophagitis; E78.5 Hyperlipidemia, unspecified; G47.30 Sleep apnea, unspecified; E66.01 Morbid (severe) obesity due to excess calories; E11.22 Type 2 diabetes mellitus with diabetic chronic kidney disease; T87.81 Dehiscence of amputation stump; E11.622 Type 2 diabetes mellitus with other skin ulcer; Z89.432 Acquired absence of left foot; Z93.1 Gastrostomy status; Z99.2 Dependence on renal dialysis
CPT/HCPCS: 11042; 36415; 80048; 80053; 82565; 82962; 83735; 84100; 84520; 85025; 85027; 87070; 87186; 87205; 99283-25; G0378; J0885; J1644

== ENCOUNTER 2017-12-14 11:27 | Inpatient (IN) | payer OTHER ==
[2017-12-14] MEDS ORDERED: PIPERACILLIN/TAZOB 3.375 GM 3.375 GM in DEXTROSE 5%-WATER - 50 ML IVPB ONE (12:57)
[2017-12-14] MEDS ORDERED: VANCOMYCIN 1,000 MG in DEXTROSE 5%-WATER - 250 ML IVPB ONE (12:57)
--- NOTE | 2017-12-14 13:08 | PDOC ---
History of Present Illness - General Chief Complaint: Wound Stated Complaint: PCP SENT Time Seen by Provider: 12/14/17 12:07 - History of Present Illness Initial Comments: 58yo M with PMH of anemia, asthma, COPD, diabetes, HTN, ESRD (HD on TuThSa), PVD , CVAx 2 presents with right foot pain. Patient states ongoing history of intermittent cellulitis for the past twenty years which has required previous IV antibiotic and hyperbaric treatment. He reports that his pain started on Monday evening and has since gotten worse with increasing tenderness, redness, and swelling. The patient last had cellulitis in this area over this year. Patient completed a dialysis session today and was advised to come to the ED for cellulitis. Denies fever, chest pain, or shortness of breath. Endorses chills last night. Past History - Past Medical History Allergies/Adverse Reactions: Allergies Allergy/AdvReac Type Severity Reaction Status Date / Time fish derived Allergy Severe Hives Verified 12/14/17 11:49 Shellfish Allergy Severe Verified 12/14/17 11:49 sulfamethoxazole Allergy Severe Swelling Verified 12/14/17 11:49 [From Bactrim DS] trimethoprim Allergy Severe Swelling Verified 12/14/17 11:49 [From Bactrim DS] Home Medications: Ambulatory Orders Omeprazole [Prilosec (RX)] 20 mg PO DAILY 08/13/14 Atorvastatin Ca [Lipitor] 80 mg PO HS 05/24/16 Albuterol Sulfate [Proair Respiclick] 90 mcg IH DAILY 11/13/16 Cholecalciferol (Vitamin D3) [Vitamin D3] 2,000 unit PO DAILY 11/13/16 Aspirin [ASA -] 81 mg PO DAILY #30 tab.chew 11/15/16 Pregabalin [Lyrica -] 100 mg PO DAILY MDD 50 mg 04/19/17 Calcium Acetate [Phoslo -] 1,334 mg PO TIDCM capsule 04/27/17 Polyethylene Glycol 3350 [Miralax 119 gm Btl -] 17 gm PO DAILY bottle 04/27/17 Carvedilol [Coreg -] 6.25 mg PO BID tablet 07/10/17 Torsemide [Demadex -] 80 mg PO MOWEFR tablet 07/10/17 Docusate Sodium [Colace -] 300 mg PO HS PRN 08/08/17 Sitagliptin Phosphate [Januvia -] 25 mg PO DAILY@0700 #30 tab 08/15/17 Anemia: Yes Asthma: Yes Cancer: No Cardiac Disorders: Yes (ANGINA) CVA: Yes (X 2) COPD: Yes CHF: Yes Dementia: No Diabetes: Yes Dialysis: Yes GI Disorders: No Disorders: No HTN: Yes Hypercholesterolemia: Yes Liver Disease: No Seizures: No Thyroid Disease: No - Surgical History Abdominal Surgery: Yes (gastric bypass 05/05/14) Appendectomy: No Cardiac Surgery: No Cholecystectomy: No Lung Surgery: No Neurologic Surgery: No Orthopedic Surgery: Yes - Immunization History Immunization Up to Date: Yes - Suicide/Smoking/Psychosocial Hx Smoking Status: No Smoking History: Never smoked Have you smoked in the past 12 months: No Number of Cigarettes Smoked Daily: 0 Cigars Per Day: 0 Hx Alcohol Use: No Drug/Substance Use Hx: No Substance Use Type: None Hx Substance Use Treatment: No Review of Systems - Review of Systems Comments:: Constitutional: no fever, +chills HEENT: no throat pain, no dysphagia Cardiovascular: no chest pain, no palpitations Respiratory: no cough, no shortness of breath Gastrointestinal: no abdominal pain, no nausea, no vomiting Genitourinary: no dysuria, no frequency Musculoskeletal: no myalgia, no arthralgia Skin: +R. foot redness, no itching Neurologic: no headache, no dizziness *Physical Exam - Vital Signs Last Vital Signs Temp Pulse Resp BP Pulse Ox 97.6 F 84 20 91/67 98 12/14/17 11:49 12/14/17 11:49 12/14/17 11:49 12/14/17 11:49 12/14/17 11:49 - Physical Exam Comments: General: Awake, alert, and fully oriented, in no acute distress Head: no signs of trauma Eyes: EOMI, sclera anicteric ENT: Moist mucus membranes Neck: Normal ROM, supple Lungs: Lungs clear, Normal breath sounds Cardio: Regular rhythm, S1 and S2 present Abdomen: Soft, nontender Extremities: Normal range of motion SKIN: R. foot with redness and tenderness dorsally at base of toes, hyperemic and warm to touch; grade 1 ulcer overlying second toe; significant skin dry skin and redness extending up to the knee Neurologic: Cranial nerves II through XII grossly intact. Normal speech 12/14/17 13:35 ED Treatment Course - LABORATORY CBC & Chemistry Diagram: 12/14/17 12:45 12/14/17 12:45 - RADIOLOGY Radiology Studies Ordered: Category Date Time Status CHEST PA & LAT [RAD] Stat Radiology 12/14/17 12:55 Ordered FOOT-RIGHT [RAD] Stat Radiology 12/14/17 12:56 Ordered Medical Decision Making - Medical Decision Making 58yo M with PMH of diabetes, HTN, and previous bilateral foot injury presenting with wounds on his R. foot. -Cellulitis in immunocompromised patient -Imaging to assess for osteomyelitis -Labs: CBC, CMP, PT/INR, lactate, blood cultures -IV Vanc and Zosyn 12/14/17 13:34 WBC= 11.1, K= 4.5 EKG, rate 101, QTc 484, 1st degree AV block Discussed case with Dr. Tabares who accepted patient for admission. 12/14/17 15:58 *DC/Admit/Observation/Transfer Diagnosis at time of Disposition: Cellulitis - Discharge Dispostion Condition at time of disposition: Stable Decision to Admit order: Yes - Referrals Referrals: Hai Davis [Non Staff, Medical] - - Patient Instructions - Post Discharge Activity
[2017-12-14] MEDS ORDERED: PIPERACILLIN/TAZOB 3.375 GM 3.375 GM/50 ML BAG IVPB ONE (13:18)
[2017-12-14] MEDS ORDERED: VANCOMYCIN 1 GRAM (PRE-DOCKED) 1,000 MG/250 ML BAG IVPB ONE (13:31)
[2017-12-14 13:41] LABS: BASO % 1.4 % (0-2.0); EOS % 4.2 % (0-4.5); HEMATOCRIT 39.2 % (35.4-49); HEMOGLOBIN 12.5 GM/dL (11.7-16.9); LYMPH % 8.8 % (8-40); MCHC 31.9 g/dl (32.0-35.9); MEAN CELL VOLUME 94.1 fl (80-96); MEAN PLT VOLUME 9.7 fl (7.5-11.1); MONO % 10.7 % (3.8-10.2); NEUT % 74.9 % (42.8-82.8); PLATELET COUNT 194 K/MM3 (134-434); RBC 4.17 M/mm3 (4.00-5.60); RDW 17.7 % (11.9-15.9); WHITE BLOOD COUNT 11.1 K/mm3 (4.0-10.0)
[2017-12-14 13:58] LABS: INR 1.12 (0.83-1.09); PROTHROMBIN TIME (PATIENT) 13.2 SEC (9.7-13.0)
[2017-12-14 14:01] LABS: ALBUMIN 3.2 g/dl (3.4-5.0); ALK PHOS 65 U/L (45-117); ANION GAP 9 MMOL/L (8-16); BILIRUBIN,TOTAL 0.8 mg/dL (0.2-1); BLOOD UREA NITROGEN 21 mg/dL (7-18); CALCIUM 8.5 mg/dL (8.5-10.1); CHLORIDE 98 mmol/L (98-107); CO2 26 mmol/L (21-32); CREATININE 5.2 mg/dL (0.55-1.3); GLUCOSE,RANDOM 206 mg/dL (74-106); POTASSIUM 4.5 mmol/L (3.5-5.1); SGOT/AST 36 U/L (15-37); SGPT/ALT 14 U/L (13-61); SODIUM 133 mmol/L (136-145); TOT PROT 7.9 g/dl (6.4-8.2)
--- NOTE | 2017-12-14 16:19 | PDOC ---
Attending Attestation - Resident Resident Name: Anu Slater - ED Attending Attestation I have performed the following: I have examined & evaluated the patient, The case was reviewed & discussed with the resident, I agree w/resident's findings & plan, Exceptions are as noted - HPI HPI: 12/14/17 16:13 57 yo F with h/o asthma/ COPD, diabetes, HTN, ESRD (HD on TuThSa), PVD, CVAx 2 here from dialysis today for concerns by nursing for leg swelling redness and cellulitis. pt denies new ulcers or wounds. has had chills, no fevers. did receive dialysis today, no issues. states he is followed by dr. delgado and eliza, has had angiography and dopplers in past of leg and was told no intervention needed for vascular disease. no cp no sob. no other complaints. reducer dr Gardiner - Physicial Exam PE: 12/14/17 16:14 awake alert lungs clear bilaterally heart rrr no mrg abd soft nt nd. ext wwp. right foot with erythema, warmth swelling to knee. 1 + dp/ pt pulses. foot warm. left second toe has small ulcer, scabbed over, dark, no drainage. no crepitus. nuero awake alert oriented x 3. - Medical Decision Making 12/14/17 16:16 differential cellulitis, ulcer, worsening pvc. plan iv antibiotics, xray will d/ w admissions.r/o sepsis. Heart Score/ECG Review #1 General ECG Interpretation: Sinus Rhythm, Normal Rate, Normal Intervals, No acute ischemic changes Compared to previous ECG there are: Other (sinus tachycardia)
[2017-12-14] MEDS ORDERED: ERTAPENEM SODIUM 1 GM VIAL ONE (17:13)
[2017-12-14] MEDS ORDERED: ERTAPENEM SODIUM 1 GM in SODIUM CHLORIDE 50 ML IVPB ONE (17:15)
--- NOTE | 2017-12-14 17:23 | HP ---
CHIEF COMPLAINT: Right Leg pain and redness PCP: HISTORY OF PRESENT ILLNESS: Patient is a 57 year old male with past medical history of anemia, asthma, COPD , DM, HTN, ESRD (HD TTS), PVD, and CVA, presented with Right leg pain. Patient reported that it started 2 days ago when he noted pain, patchy redness and warmth on the medial lower 1/3 of the right thigh. This was accompanied by chills, but denies fevers, headaches, dizziness. Patient is known to have bilateral chronic leg swelling and erythema with scaling. Symptoms persisted and after receiving dialysis today, he was told by PCP to come to the ED. ER course was notable for: (1)WBC 11.1 (2)Glu 206 (3)Vanc 1000mg/Zosyn 3.375g given Recent Travel:denies recent travel PAST MEDICAL HISTORY: Anemia asthma COPD DM HTN ESRD (HD TTS) PVD CVA PAST SURGICAL HISTORY: Left TMA Social History: Smoking:denies Alcohol:denies Drugs: denies Family History: Non contributory Allergies fish derived Allergy (Severe, Verified 12/14/17 11:49) Hives Shellfish Allergy (Severe, Verified 12/14/17 11:49) throat swelling sulfamethoxazole [From Bactrim DS] Allergy (Severe, Verified 12/14/17 11:49) Swelling trimethoprim [From Bactrim DS] Allergy (Severe, Verified 12/14/17 11:49) Swelling HOME MEDICATIONS: Home Medications Medication Instructions Recorded Omeprazole [Prilosec (RX)] 20 mg PO DAILY 08/13/14 Atorvastatin Ca [Lipitor] 80 mg PO HS 05/24/16 Albuterol Sulfate [Proair 90 mcg IH DAILY 11/13/16 Respiclick] Cholecalciferol (Vitamin D3) 2,000 unit PO DAILY 11/13/16 [Vitamin D3] Aspirin [ASA -] 81 mg PO DAILY #30 tab.chew 11/15/16 Pregabalin [Lyrica -] 100 mg PO DAILY MDD 50 mg 04/19/17 Calcium Acetate [Phoslo -] 1,334 mg PO TIDCM capsule 04/27/17 Polyethylene Glycol 3350 [Miralax 17 gm PO DAILY bottle 04/27/17 119 gm Btl -] Carvedilol [Coreg -] 6.25 mg PO BID tablet 07/10/17 Torsemide [Demadex -] 80 mg PO MOWEFR tablet 07/10/17 Docusate Sodium [Colace -] 300 mg PO HS PRN 08/08/17 Sitagliptin Phosphate [Januvia -] 25 mg PO DAILY@0700 #30 tab 08/15/17 REVIEW OF SYSTEMS CONSTITUTIONAL: Absent: fever, chills, diaphoresis, generalized weakness, malaise, loss of appetite, weight change HEENT: Absent: rhinorrhea, nasal congestion, throat pain, throat swelling, difficulty swallowing, mouth swelling, ear pain, eye pain, visual changes CARDIOVASCULAR: Absent: chest pain, syncope, palpitations, irregular heart rate, lightheadedness , peripheral edema RESPIRATORY: Absent: cough, shortness of breath, dyspnea with exertion, orthopnea, wheezing, stridor, hemoptysis GASTROINTESTINAL: Absent: abdominal pain, abdominal distension, nausea, vomiting, diarrhea, constipation, melena, hematochezia GENITOURINARY: Absent: dysuria, frequency, urgency, hesitancy, hematuria, flank pain, genital pain MUSCULOSKELETAL: Absent: myalgia, arthralgia, joint swelling, back pain, neck pain SKIN: Absent: rash, itching, pallor HEMATOLOGIC/IMMUNOLOGIC: Absent: easy bleeding, easy bruising, lymphadenopathy, frequent infections ENDOCRINE: Absent: unexplained weight gain, unexplained weight loss, heat intolerance, cold intolerance NEUROLOGIC: Absent: headache, focal weakness or paresthesias, dizziness, unsteady gait, seizure, mental status changes, bladder or bowel incontinence PSYCHIATRIC: Absent: anxiety, depression, suicidal or homicidal ideation, hallucinations. PHYSICAL EXAMINATION Vital Signs - 24 hr 12/14/17 12/14/17 12/14/17 11:49 15:45 16:39 Temperature 97.6 F Pulse Rate 84 Respiratory 20 Rate Blood Pressure 91/67 Blood Pressure 96/70 [Right] O2 Sat by Pulse 98 97 Oximetry (%) GENERAL: Awake, alert, and fully oriented, in no acute distress. HEAD: Normal with no signs of trauma. EYES: PERRLA, EOMI, sclera anicteric, conjunctiva clear. EARS, NOSE, THROAT: Ears normal, nares patent, oropharynx clear without exudates. Moist mucous membranes. NECK: Normal range of motion, supple without lymphadenopathy, JVD, or masses. LUNGS: Breath sounds equal, clear to auscultation bilaterally. HEART: Regular rate and rhythm, normal S1 and S2 without murmur, rub or gallop. ABDOMEN: Soft, nontender, not distended, normoactive bowel sounds. MUSCULOSKELETAL: Normal range of motion at all joints. No bony deformities or tenderness. No CVA tenderness. UPPER EXTREMITIES: 2+ pulses, warm, well-perfused. No cyanosis. No clubbing. No peripheral edema. LOWER EXTREMITIES: BLE: +erythema, +tenderness on palpation of anterior [place], + warmth, +scaling with yellowish discoloration that extends from knees to foot. RLE: +erythema, +tenderness, +warmth on the medial lower 1/3 of the thigh. Pulses palpable. NEUROLOGICAL: Cranial nerves II-XII intact. Normal speech. Normal gait. PSYCHIATRIC: Cooperative. Good eye contact. Appropriate mood and affect. SKIN: Warm, dry, normal turgor, no rashes or lesions noted, normal capillary refill. Laboratory Results - last 24 hr 12/14/17 12/14/17 12/14/17 12:45 12:45 12:45 WBC 11.1 H RBC 4.17 Hgb 12.5 Hct 39.2 MCV 94.1 MCH 30.0 MCHC 31.9 L RDW 17.7 H Plt Count 194 MPV 9.7 Absolute Neuts (auto) 8.3 H Neutrophils % 74.9 Lymphocytes % 8.8 D Monocytes % 10.7 H Eosinophils % 4.2 Basophils % 1.4 Nucleated RBC % 0 PT with INR INR Sodium 133 L Potassium 4.5 Chloride 98 Carbon Dioxide 26 Anion Gap 9 BUN 21 H Creatinine 5.2 H Creat Clearance w eGFR 11.49 Random Glucose 206 H Lactic Acid 1.7 Calcium 8.5 Total Bilirubin 0.8 AST 36 ALT 14 Alkaline Phosphatase 65 Total Protein 7.9 Albumin 3.2 L 12/14/17 13:25 WBC RBC Hgb Hct MCV MCH MCHC RDW Plt Count MPV Absolute Neuts (auto) Neutrophils % Lymphocytes % Monocytes % Eosinophils % Basophils % Nucleated RBC % PT with INR 13.20 H INR 1.12 H Sodium Potassium Chloride Carbon Dioxide Anion Gap BUN Creatinine Creat Clearance w eGFR Random Glucose Lactic Acid Calcium Total Bilirubin AST ALT Alkaline Phosphatase Total Protein Albumin ASSESSMENT/PLAN: Patient is a 57 year old male with past medical history of anemia, asthma, COPD , DM, HTN, ESRD (HD TTS), PVD, and CVA, presented with Right leg pain. #RLE cellulitis -Vanc/Zosyn given at the ED today. -Previous wound Cx - MRSA, ESBL, A. baumanii -Started on Ertapenem 1gm, one dose -Xray of the right foot done - pending final read -Duplex US of b/l legs ordered. -Podiatry (Dr. Alcantara) consulted. -ID (Dr. Farah) consulted. #ESRD on HD -On HD TTS -Neurology (Dr. Win) consulted. -Avoid nephrotoxic agents such as NSAIDs, aminoglycosides, or contrast #DM -hold Januvia -BGM ACHS -Implement insulin sliding scale #HTN -Continue Torsemide 80 mg daily, Coreg 6.25 BID #Hx of CVA -Continue ASA 81, Atorvastatin 80mg #HOLLY -on CPAP #COPD -Albuterol Inh PRN #FEN -Not on any standing fluids -Encourage increased oral fluid intake -Electrolytes wnl, routine bmp monitoring -diabetic/sodium diet #Prophylaxis -Heparin 5000units sq tid #Disposition -full code -admit to med-surg Visit type - Emergency Visit Emergency Visit: Yes ED Registration Date: 12/14/17 Care time: The patient presented to the Emergency Department on the above date and was hospitalized for further evaluation of their emergent condition. - New Patient This patient is new to me today: Yes Date on this admission: 12/15/17 - Critical Care Critical Care patient: No
--- NOTE | 2017-12-14 17:31 | PN ---
Teaching Attending Note Name of Resident: Barbara Nuñez ATTENDING PHYSICIAN STATEMENT I saw and evaluated the patient. I reviewed the resident's note and discussed the case with the resident. I agree with the resident's findings and plan as documented with exceptions below. SUBJECTIVE: 57 yom with PMHx of ESRD on HD, NIDDM, HTN, COPD, HOLLY on CPAP, morbid obesity, s /p gastric bypass, Right TMA (wound with ESBL/MRSA) comes with progressive redness/pain/warmth over right inner thigh/knee crease area extending upto upper inner thigh and upper right leg for last 2-3 days. Reports chills but no reported fevers. Has chronic both legs sweling with skin discoloration and also right 2nd toe dusky discoloration with scab on dorsum, reports has been chronic and getting care from Dr. Alcantara. 12 point ROS done, neg except above. OBJECTIVE: Vital Signs Period Temp Pulse Resp BP Sys/Leon Pulse Ox Last 24 Hr 97.6 F 84 20 91-96/67-70 97-98 Intake & Output 12/11/17 12/12/17 12/13/17 12/14/17 23:59 23:59 23:59 23:59 Weight 365 lb GENERAL: Awake, alert, and fully oriented, in no acute distress. HEAD: Normal with no signs of trauma. EYES: Pupils equal, round and reactive to light, extraocular movements intact, sclera anicteric, conjunctiva clear. No lid lag. EARS, NOSE, THROAT: Ears normal, nares patent, oropharynx clear without exudates. Moist mucous membranes. NECK: soft ,supple, no JVD, normal ROM LUNGS: Breath sounds equal, clear to auscultation bilaterally. No wheezes, and no crackles. No accessory muscle use. HEART: S1S2 regular ABDOMEN: Soft, obese, NT, positive bowel sounds MUSCULOSKELETAL: Normal range of motion at all joints. No bony deformities or tenderness. No CVA tenderness. UPPER EXTREMITIES: 2+ pulses, warm, well-perfused. No cyanosis. No clubbing. No peripheral edema. LOWER EXTREMITIES: patchy area of erythema/warmth/mild tenderness on medial lower 1/3rd right thigh confluent, extending in posterior knee crease. Bilateral legs with pink discoloration with patchy hyperpigmentation with scaling, dusky dislcoloration of right second toe with scab (chronic per patient ) 1+ palpable DP pulses bilaterally NEUROLOGICAL: Cranial nerves II-XII intact. Normal speech. PSYCHIATRIC: Cooperative. Good eye contact. Appropriate mood and affect. SKIN: Warm, dry, normal turgor, no rashes or lesions noted, normal capillary refill. Home Medications Medication Instructions Recorded Omeprazole [Prilosec (RX)] 20 mg PO DAILY 08/13/14 Atorvastatin Ca [Lipitor] 80 mg PO HS 05/24/16 Albuterol Sulfate [Proair 90 mcg IH DAILY 11/13/16 Respiclick] Cholecalciferol (Vitamin D3) 2,000 unit PO DAILY 11/13/16 [Vitamin D3] Aspirin [ASA -] 81 mg PO DAILY #30 tab.chew 11/15/16 Pregabalin [Lyrica -] 100 mg PO DAILY MDD 50 mg 04/19/17 Calcium Acetate [Phoslo -] 1,334 mg PO TIDCM capsule 04/27/17 Polyethylene Glycol 3350 [Miralax 17 gm PO DAILY bottle 04/27/17 119 gm Btl -] Carvedilol [Coreg -] 6.25 mg PO BID tablet 07/10/17 Torsemide [Demadex -] 80 mg PO MOWEFR tablet 07/10/17 Docusate Sodium [Colace -] 300 mg PO HS PRN 08/08/17 Sitagliptin Phosphate [Januvia -] 25 mg PO DAILY@0700 #30 tab 08/15/17 Active Medications Heparin Sodium (Porcine) (Heparin -) 5,000 unit SQ Q8H-IV [facility] Insulin Aspart (Novolog Vial Sliding Scale -) 1 vial SQ ACHS [facility]; Protocol Laboratory Results - last 24 hr 12/14/17 12/14/17 12/14/17 12:45 12:45 12:45 WBC 11.1 H RBC 4.17 Hgb 12.5 Hct 39.2 MCV 94.1 MCH 30.0 MCHC 31.9 L RDW 17.7 H Plt Count 194 MPV 9.7 Absolute Neuts (auto) 8.3 H Neutrophils % 74.9 Lymphocytes % 8.8 D Monocytes % 10.7 H Eosinophils % 4.2 Basophils % 1.4 Nucleated RBC % 0 PT with INR INR Sodium 133 L Potassium 4.5 Chloride 98 Carbon Dioxide 26 Anion Gap 9 BUN 21 H Creatinine 5.2 H Creat Clearance w eGFR 11.49 Random Glucose 206 H Lactic Acid 1.7 Calcium 8.5 Total Bilirubin 0.8 AST 36 ALT 14 Alkaline Phosphatase 65 Total Protein 7.9 Albumin 3.2 L 12/14/17 13:25 WBC RBC Hgb Hct MCV MCH MCHC RDW Plt Count MPV Absolute Neuts (auto) Neutrophils % Lymphocytes % Monocytes % Eosinophils % Basophils % Nucleated RBC % PT with INR 13.20 H INR 1.12 H Sodium Potassium Chloride Carbon Dioxide Anion Gap BUN Creatinine Creat Clearance w eGFR Random Glucose Lactic Acid Calcium Total Bilirubin AST ALT Alkaline Phosphatase Total Protein Albumin Foot xray/CXR done, results pending ASSESSMENT AND PLAN: 57 yom with pMHx of admitted with RLE cellulitis -RLE cellulitis -ESRD on HD -NIDDM -HTN -H/o Right TMA (Wound with ESBL/MRSA) -COPD -HOLLY on CPAP Plan: s/p zosyn/vanco x1 in ed. Give Ertapenem x 1. Podiatry/ID consult. LE venous duplex. Renal consult for HD. Hold januvia. ISS, diabetic diet Hold home torsemide for now. Continue ASA/coreg/statin/Albuterol DVTPPX heparin Dispo pending clinical improvement. Plan discussed with patient in detail, all questions answered. Total admit time 60 min.
[2017-12-14] MEDS ORDERED: HEPARIN NA (PORCINE) 5,000 UNITS/ML 1ML VIAL ONE (18:42)
[2017-12-14] MEDS: HEPARIN NA (PORCINE) 5,000 UNITS/ML 1ML VIAL SQ SCH (18:45)
[2017-12-14] MEDS ORDERED: ONDANSETRON 4 MG/2 ML VIAL ONE (20:52)
[2017-12-14] MEDS ORDERED: ONDANSETRON 4 MG/2 ML VIAL IVPUSH ONE (20:52)
[2017-12-14] MEDS ORDERED: DOCUSATE SODIUM 100 MG CAPSULE (FP) PO PRN (22:00)
[2017-12-14] MEDS ORDERED: CARVEDILOL 3.125 MG TABLET (FP) ONE (22:05)
[2017-12-14] MEDS ORDERED: ATORVASTATIN CA 40 MG TABLET (FP) ONE (22:06)
[2017-12-14] MEDS: CARVEDILOL 6.25 MG TABLET (FP) PO SCH (22:06)
[2017-12-14] MEDS: ATORVASTATIN CA 80 MG TABLET (FP) PO SCH (22:07)
[2017-12-14] MEDS: INSULIN SLIDING SCALE (NOVOLOG) 1 VIAL SQ SCH (22:17)
[2017-12-14] MEDS ORDERED: INSULIN REGULAR HUMAN 100 UNITS/ML *VIAL ONE (22:19)
[2017-12-15] MEDS: HEPARIN NA (PORCINE) 5,000 UNITS/ML 1ML VIAL SQ SCH ×3 (02:40→17:36)
[2017-12-15] MEDS: INSULIN SLIDING SCALE (NOVOLOG) 1 VIAL SQ SCH ×4 (06:24→22:28)
[2017-12-15] MEDS ORDERED: ALBUTEROL SO4 8 GM HFA INHALER IH PRN (06:46)
[2017-12-15 07:08] LABS: BASO % 0.8 % (0-2.0); EOS % 5.5 % (0-4.5); HEMOGLOBIN 11.8 GM/dL (11.7-16.9); LYMPH % 9.5 % (8-40); MCH 30.4 pg (25.7-33.7); MCHC 32.7 g/dl (32.0-35.9); MEAN CELL VOLUME 92.9 fl (80-96); MEAN PLT VOLUME 9.1 fl (7.5-11.1); MONO % 8.6 % (3.8-10.2); NEUT % 75.6 % (42.8-82.8); PLATELET COUNT 176 K/MM3 (134-434); RBC 3.87 M/mm3 (4.00-5.60); RDW 17.3 % (11.9-15.9); WHITE BLOOD COUNT 9.4 K/mm3 (4.0-10.0)
[2017-12-15 07:41] LABS: BLOOD UREA NITROGEN 32 mg/dL (7-18); CREATININE 6.7 mg/dL (0.55-1.3); GLUCOSE,RANDOM 148 mg/dL (74-106); POTASSIUM 4.4 mmol/L (3.5-5.1); SODIUM 135 mmol/L (136-145)
[2017-12-15 07:42] LABS: ALBUMIN 2.8 g/dl (3.4-5.0); ALK PHOS 55 U/L (45-117); ANION GAP 7 MMOL/L (8-16); BILIRUBIN,TOTAL 0.5 mg/dL (0.2-1); CALCIUM 8.7 mg/dL (8.5-10.1); CHLORIDE 103 mmol/L (98-107); CO2 25 mmol/L (21-32); MAGNESIUM 2.3 mg/dL (1.8-2.4); PHOSPHOROUS 5.7 mg/dL (2.5-4.9); SGOT/AST 15 U/L (15-37); SGPT/ALT 11 U/L (13-61); TOT PROT 6.6 g/dl (6.4-8.2)
[2017-12-15] MEDS: CALCIUM ACETATE 667 MG CAPSULE (FP) PO SCH ×3 (08:43→17:37)
[2017-12-15] MEDS: CHOLECALCIFEROL (VITAMIN D3) 1,000 UNIT TABLET (FP) PO SCH (09:52)
[2017-12-15] MEDS: PREGABALIN 100 MG CAPSULE PO SCH (09:52)
[2017-12-15] MEDS: PANTOPRAZOLE 40 MG TABLET (FP) PO SCH (09:52)
[2017-12-15] MEDS: ASPIRIN 81 MG CHEWABLE TABLETS PO SCH (09:52)
[2017-12-15] MEDS: PANTOPRAZOLE 20 MG TABLET (FP) PO SCH (09:52)
[2017-12-15] MEDS: CARVEDILOL 6.25 MG TABLET (FP) PO SCH ×2 (09:52→22:27)
--- NOTE | 2017-12-15 10:00 | EKG ---
Test Reason : Blood Pressure : / mmHG Vent. Rate : 101 BPM Atrial Rate : 101 BPM P-R Int : 242 ms QRS Dur : 092 ms QT Int : 374 ms P-R-T Axes : 078 -46 015 degrees QTc Int : 484 ms POOR DATA QUALITY, INTERPRETATION MAY BE ADVERSELY AFFECTED NORMAL SINUS RHYTHM Confirmed by DALIA VICENTE MD [id number]) on 12/15/2017 10:00:32 AM Referred By: Confirmed By:DALIA VICENTE MD
[2017-12-15] MEDS ORDERED: VANCOMYCIN 1 GRAM (PRE-DOCKED) 1,000 MG/250 ML BAG IVPB ONE (10:43)
--- NOTE | 2017-12-15 10:50 | CON.ID ---
Consult Consult Specialty:: infectious disease Referred by:: hospitalist Reason for Consultation:: cellulitis left thigh - History of Present Illness Chief Complaint: chills Monday night History of Present Illness: erythema left thigh went to HD on and was told to go to ED no fevers +chills notes erythema has improved since admission has a purple second toe on the left foot with a chronic ulcer reports he has had an ulcer on the toe for 3 months notes entire left foot is more erythematous then usual xray foot not yet read- no bony destruction to be seen by podiatry left tma is well healed received vancomycin/zosyn/ertapenem in the ED - History Source History Provided By: Patient, Medical Record Limitations to Obtaining History: No Limitations - Past Medical History [employer]: Yes: CVA Cardio/Vascular: Yes: HTN, Hyperlipdemia Pulmonary: Yes: Sleep Apnea Gastrointestinal: Yes: GERD, Other (obesity) Renal/: Yes: Renal Failure, Renal Inusuff, Hemodialysis, Other Endocrine: Yes: Diabetes Mellitus - Past Surgical History Past Surgical History: Yes: AV Fistula/Graft Additional Surgical History: left TMA - Alcohol/Substance Use Hx Alcohol Use: No - Smoking History Smoking history: Never smoked Have you smoked in the past 12 months: No Aproximately how many cigarettes per day: 0 - Social History Usual Living Arrangement: [facility]it[facility]iary ADL: Independent History of Recent Travel: No Home Medications - Allergies Allergies/Adverse Reactions: Allergies Allergy/AdvReac Type Severity Reaction Status Date / Time fish derived Allergy Severe Hives Verified 12/14/17 11:49 Shellfish Allergy Severe Verified 12/14/17 11:49 sulfamethoxazole Allergy Severe Swelling Verified 12/14/17 11:49 [From Bactrim DS] trimethoprim Allergy Severe Swelling Verified 12/14/17 11:49 [From Bactrim DS] - Home Medications Home Medications: Ambulatory Orders Omeprazole [Prilosec (RX)] 20 mg PO DAILY 08/13/14 Atorvastatin Ca [Lipitor] 80 mg PO HS 05/24/16 Albuterol Sulfate [Proair Respiclick] 90 mcg IH DAILY 11/13/16 Cholecalciferol (Vitamin D3) [Vitamin D3] 2,000 unit PO DAILY 11/13/16 Aspirin [ASA -] 81 mg PO DAILY #30 tab.chew 11/15/16 Pregabalin [Lyrica -] 100 mg PO DAILY MDD 50 mg 04/19/17 Calcium Acetate [Phoslo -] 1,334 mg PO TIDCM capsule 04/27/17 Polyethylene Glycol 3350 [Miralax 119 gm Btl -] 17 gm PO DAILY bottle 04/27/17 Carvedilol [Coreg -] 6.25 mg PO BID tablet 07/10/17 Torsemide [Demadex -] 80 mg PO MOWEFR tablet 07/10/17 Docusate Sodium [Colace -] 300 mg PO HS PRN 08/08/17 Sitagliptin Phosphate [Januvia -] 25 mg PO DAILY@0700 #30 tab 08/15/17 Family Disease History - Family Disease History Family Disease History: Heart Disease: Father ( of SANON at 43 ), CA: Mother ( Breast) Review of Systems - Review of Systems Constitutional: reports: Chills Eyes: reports: No Symptoms HENT: reports: No Symptoms Neck: reports: No Symptoms Cardiovascular: denies: Chest Pain Respiratory: denies: Cough Gastrointestinal: denies: Abdominal Pain Physical Exam Vital Signs: Vital Signs Temperature 98.7 F 12/15/17 06:00 Pulse Rate 81 12/15/17 06:00 Respiratory Rate 18 12/15/17 06:00 Blood Pressure 110/64 12/15/17 06:00 O2 Sat by Pulse Oximetry (%) 98 12/15/17 01:38 Constitutional: Yes: Well Nourished, No Distress, Calm Eyes: Yes: Conjunctiva Clear, EOM Intact HENT: Yes: Atraumatic, Normocephalic. No: Thrush Neck: Yes: Supple Cardiovascular: Yes: Regular Rate and Rhythm Respiratory: Yes: Regular, CTA Bilaterally Gastrointestinal: Yes: Normal Bowel Sounds, Soft. No: Tenderness ...Rectal Exam: Yes: Deferred Extremities: Yes: Erythema (left inner thigh), Other (dusky second toe with ulcer right foot left TMA well healed) Edema: Yes Edema: LLE: Trace, RLE: Trace Labs: CBC, BMP 12/15/17 06:23 12/15/17 06:23 Imaging - Results Chest X-ray: Report Reviewed X-ray: Image Reviewed (no gross bony destructin noted 2nd toe (my read)) Problem List - Problems (1) Cellulitis Code(s): L03.90 - CELLULITIS, UNSPECIFIED (2) Right second toe ulcer Code(s): L97.519 - NON-PRS CHRONIC ULCER OTH PRT RIGHT FOOT W UNSP SEVERITY (3) Diabetes mellitus Code(s): E11.9 - TYPE 2 DIABETES MELLITUS WITHOUT COMPLICATIONS Qualifiers: Diabetes mellitus type: type 2 (4) MDRO (multiple drug resistant organisms) resistance Code(s): Z16.35 - RESISTANCE TO MULTIPLE ANTIMICROBIAL DRUGS Assessment/Plan contact isolation for MRSA continue vancomycin by levels continue zosyn elevated esr/crp noted MRI right foot attn 2nd toe podiatry evaluation- d/w podiatry- they will debride the toe in am vascular to see- toe looks ischemic esrd/hd DM
--- NOTE | 2017-12-15 11:07 | PN ---
Progress Note (short form) - Note Progress Note: PODIATRY CONSULT Pt seen at bedside in NAD Pt admitted to [facility] for cellulitis of his right foot and leg. PT states started developing fever and chills and went to ER. Pt has hx of left foot TMA which healed after extensive conservative management and wound care post operatively. Afebrile VSS PMH : DM ( last A1C 7.0 , BS 165 ) Hx of vascular stent left , CRF KEEGAN :Pulses 1/4 DP , PT right side NVS decreased epcritic sensations grossly decreased (++) edema and erythema right foot and leg Negative popliteal , inguinal adenopathy . 2nd toe right foot slighlty cyanotic with superficial ulceration pipj No signs of purulence / drainage Labs reviewed elevated WBC ( 11.1) ESR (71) Xray films reviewed not suggestive of osteomyeltis with no lytic changes noted Impression :Diabetic foot infection right foot Plan: 1) Discussed case with Infectious disease 2) Vascular consult ordered 3) MRI ordered to rule out osteomyelitis 4) Debridement tray ordered to bedside Will follow . Thank you for courtesy of this consult
[2017-12-15] MEDS ORDERED: INSULIN (NOVOLOG) ASPART 100 UNITS/ML 10ML VIAL ONE (11:32)
[2017-12-15] MEDS: POLYETHYLENE GLYCOL 3350 119 GM BTL PO SCH (11:44)
--- NOTE | 2017-12-15 15:03 | PN ---
Teaching Attending Note Name of Resident: Barbara Nuñez ATTENDING PHYSICIAN STATEMENT I saw and evaluated the patient. I reviewed the resident's note and discussed the case with the resident. I agree with the resident's findings and plan as documented with exceptions below. SUBJECTIVE: Patient seen and examined. right thigh symptoms improved, no new complaints. OBJECTIVE: Vital Signs Period Temp Pulse Resp BP Sys/Leon Pulse Ox Last 24 Hr 97.8 F-98.7 F 72-94 18-20 95-115/51-74 96-99 Intake & Output 12/12/17 12/13/17 12/14/17 12/15/17 23:59 23:59 23:59 23:59 Weight 362 lb 6.4 oz 364 lb 4 oz General: sitting in bed in no acute distress Extremities: right thigh erythema almost resolved, unchanged LE and right 2nd toe findings Active Medications Albuterol Sulfate (Ventolin Hfa Inhaler -) 2 puff IH Q4H PRN PRN Reason: SHORTNESS OF BREATH Aspirin (Asa -) 81 mg PO DAILY [facility] Last Admin: 12/15/17 09:52 Dose: 81 mg Atorvastatin Calcium (Lipitor -) 80 mg PO HS [facility] Last Admin: 12/14/17 22:07 Dose: 80 mg Calcium Acetate (Phoslo -) 1,334 mg PO TIDCM [facility] Last Admin: 12/15/17 11:42 Dose: 1,334 mg Carvedilol (Coreg -) 6.25 mg PO BID [facility] Last Admin: 12/15/17 09:52 Dose: 6.25 mg Cholecalciferol (Vitamin D3 -) 2,000 unit PO DAILY [facility] Last Admin: 12/15/17 09:52 Dose: 2,000 unit Docusate Sodium (Colace -) 300 mg PO HS PRN PRN Reason: CONSTIPATION Heparin Sodium (Porcine) (Heparin -) 5,000 unit SQ Q8H-IV [facility] Last Admin: 12/15/17 09:54 Dose: 5,000 unit Insulin Aspart (Novolog Vial Sliding Scale -) 1 vial SQ ACHS [facility]; Protocol Last Admin: 12/15/17 11:42 Dose: 2 unit Pantoprazole Sodium (Protonix -) 40 mg PO DAILY [facility] Last Admin: 12/15/17 09:52 Dose: Not Given Pantoprazole Sodium (Protonix -) 20 mg PO DAILY [facility] Last Admin: 12/15/17 09:52 Dose: 20 mg Polyethylene Glycol (Miralax (For Daily Use) -) 17 gm PO DAILY [facility] Last Admin: 12/15/17 11:44 Dose: 17 gm Pregabalin (Lyrica -) 100 mg PO DAILY [facility] Last Admin: 12/15/17 09:52 Dose: 100 mg Laboratory Results - last 24 hr 12/14/17 12/15/17 12/15/17 22:12 06:23 06:23 WBC 9.4 RBC 3.87 L Hgb 11.8 Hct 36.0 MCV 92.9 MCH 30.4 MCHC 32.7 RDW 17.3 H Plt Count 176 MPV 9.1 Absolute Neuts (auto) 7.1 Neutrophils % 75.6 Lymphocytes % 9.5 Monocytes % 8.6 Eosinophils % 5.5 H Basophils % 0.8 Nucleated RBC % 0 ESR Sodium Potassium Chloride Carbon Dioxide Anion Gap BUN Creatinine Creat Clearance w eGFR POC Glucometer [phone] Random Glucose Calcium Phosphorus Magnesium Total Bilirubin AST ALT Alkaline Phosphatase C-Reactive Protein Total Protein Albumin Random Vancomycin 8.9 L 12/15/17 12/15/17 12/15/17 06:23 06:23 06:23 WBC RBC Hgb Hct MCV MCH MCHC RDW Plt Count MPV Absolute Neuts (auto) Neutrophils % Lymphocytes % Monocytes % Eosinophils % Basophils % Nucleated RBC % ESR 71 H Sodium 135 L Potassium 4.4 Chloride 103 Carbon Dioxide 25 Anion Gap 7 L BUN 32 H Creatinine 6.7 H Creat Clearance w eGFR 8.58 POC Glucometer Random Glucose 148 H Calcium 8.7 Phosphorus 5.7 H Magnesium 2.3 Total Bilirubin 0.5 AST 15 ALT 11 L Alkaline Phosphatase 55 C-Reactive Protein 9.1 H Cancelled Total Protein 6.6 Albumin 2.8 L Random Vancomycin 12/15/17 12/15/17 06:24 11:18 WBC RBC Hgb Hct MCV MCH MCHC RDW Plt Count MPV Absolute Neuts (auto) Neutrophils % Lymphocytes % Monocytes % Eosinophils % Basophils % Nucleated RBC % ESR Sodium Potassium Chloride Carbon Dioxide Anion Gap BUN Creatinine Creat Clearance w eGFR POC Glucometer 151 232 Random Glucose Calcium Phosphorus Magnesium Total Bilirubin AST ALT Alkaline Phosphatase C-Reactive Protein Total Protein Albumin Random Vancomycin Microbiology 12/14/17 12:45 Blood - Peripheral Venous Blood Culture - Preliminary NO GROWTH OBTAINED AFTER 24 HOURS, INCUBATION TO CONTINUE FOR 4 DAYS. 10/11/18 12:45 Blood - Peripheral Venous Blood Culture - Preliminary NO GROWTH OBTAINED AFTER 24 HOURS, INCUBATION TO CONTINUE FOR 4 DAYS. LE duplex neg for DvT Foot xray results noted ASSESSMENT AND PLAN: 57 yom with pMHx of admitted with RLE cellulitis -RLE cellulitis, r/o 2nd toe OM, PAD -ESRD on HD -NIDDM -HTN -H/o Right TMA (Wound with ESBL/MRSA) -COPD -HOLLY on CPAP Plan: s/p zosyn/vanco/ertapenem on admission. Podiatry/ID consult. Vascular surgery consult. plan for 2nd toe debridement. MRI RLE. Vanco renal dosing. Duplex neg for DVT. Foot xray noted.. Renal consult for HD. Hold januvia. ISS, diabetic diet Hold home torsemide for now. Continue ASA/coreg/statin/Albuterol DVTPPX heparin Dispo pending clinical improvement. Plan discussed with patient , in detail, all questions answered.
--- NOTE | 2017-12-15 15:31 | CONSULT ---
<Ilana Myers - Last Filed: 12/15/17 17:17> - Consultation REQUESTING PROVIDER: CONSULT REQUEST: We have been asked to surgically evaluate this patient for . PCP:Simon Tabares MD HISTORY OF PRESENT ILLNESS: The patient is a 57 yo male with a history of ESRD/ DM/PVD who presented to the ER for fever and chills this past week. He noted his right thigh to be red and painful. He has had a chronic ulcer to his right second toe which for the past two months. In the past 2 weeks he said that it has dried up. For the past several days his second toe has been discolored/ bluish with redness at the toe base. The pain has improved to his thigh and he denies any pain/numbness or tingling to his foot. He was seen by podiatry and they plan to debride his toe tomorrow at bedside. PMHx: morbid obesity, ESRD, DM, chronic venous stasis with ulcer(healed), PVD left foot, stroke with left leg weakness, pneumonia PSHx: Gastric bypass, Left AVF, Left TMA , Lung biopsy Home Medications Medication Instructions Recorded Omeprazole [Prilosec (RX)] 20 mg PO DAILY 08/13/14 Atorvastatin Ca [Lipitor] 80 mg PO HS 05/24/16 Albuterol Sulfate [Proair 90 mcg IH DAILY 11/13/16 Respiclick] Cholecalciferol (Vitamin D3) 2,000 unit PO DAILY 11/13/16 [Vitamin D3] Aspirin [ASA -] 81 mg PO DAILY #30 tab.chew 11/15/16 Pregabalin [Lyrica -] 100 mg PO DAILY MDD 50 mg 04/19/17 Calcium Acetate [Phoslo -] 1,334 mg PO TIDCM capsule 04/27/17 Polyethylene Glycol 3350 [Miralax 17 gm PO DAILY bottle 04/27/17 119 gm Btl -] Carvedilol [Coreg -] 6.25 mg PO BID tablet 07/10/17 Torsemide [Demadex -] 80 mg PO MOWEFR tablet 07/10/17 Docusate Sodium [Colace -] 300 mg PO HS PRN 08/08/17 Sitagliptin Phosphate [Januvia -] 25 mg PO DAILY@0700 #30 tab 08/15/17 Allergies Allergy/AdvReac Type Severity Reaction Status Date / Time fish derived Allergy Severe Hives Verified 12/14/17 11:49 Shellfish Allergy Severe Verified 12/14/17 11:49 sulfamethoxazole Allergy Severe Swelling Verified 12/14/17 11:49 [From Bactrim DS] trimethoprim Allergy Severe Swelling Verified 12/14/17 11:49 [From Bactrim DS] REVIEW OF SYSTEMS: CONSTITUTIONAL: Present: fever, chills CARDIOVASCULAR: Absent: chest pain, syncope RESPIRATORY: Absent: cough, shortness of breath GENITOURINARY: Absent: dysuria, hematuria,(makes urine daily/a pint) NEUROLOGIC: Absent: headache, paresthesias, seizure Present: unsteady gait, uses assist device and is receiving PT for rehabilitating of Left leg PHYSICAL EXAM: GENERAL: Awake, alert, and fully oriented, in no acute distress. HEAD: Normal with no signs of trauma. UPPER EXTREMITIES: Positive thrill to LUE LOWER EXTREMITIES: Left leg healed TMA site. 5/5 dorsi/plantar flexion. Chronic venous stasis changes. RLE: Mild erythema to the upper thigh. Chronic venous stasis changes. Right 2nd toe with dry ulcer over the PIP and erythema at the base of the toe. Toe bluish in appearance. Foot/toes warm. +1 DP pulse/confirmed with doppler. Unable to find PT pulse. 5/5 dorsi/plantar flexion. NEUROLOGICAL: Normal speech, gait not observed. PSYCH: Cooperative. Good eye contact. Appropriate mood and affect. SKIN: linear abrasions on anterior right ogles[place] 3 to 4(scratch mitchell) Vital Signs Temperature 98.1 F 12/15/17 15:27 Pulse Rate 77 12/15/17 15:27 Respiratory Rate 20 12/15/17 15:27 Blood Pressure 119/61 12/15/17 15:27 O2 Sat by Pulse Oximetry (%) 98 12/15/17 01:38 Lab Results WBC 9.4 K/mm3 (4.0-10.0) 12/15/17 06:23 RBC 3.87 M/mm3 (4.00-5.60) L 12/15/17 06:23 Hgb 11.8 GM/dL (11.7-16.9) 12/15/17 06:23 Hct 36.0 % (35.4-49) 12/15/17 06:23 MCV 92.9 fl (80-96) 12/15/17 06:23 MCHC 32.7 g/dl (32.0-35.9) 12/15/17 06:23 RDW 17.3 % (11.9-15.9) H 12/15/17 06:23 Plt Count 176 K/MM3 (134-434) 12/15/17 06:23 Sodium 135 mmol/L (136-145) L 12/15/17 06:23 Potassium 4.4 mmol/L (3.5-5.1) 12/15/17 06:23 Chloride 103 mmol/L (98-107) 12/15/17 06:23 Carbon Dioxide 25 mmol/L (21-32) 12/15/17 06:23 Anion Gap 7 MMOL/L (8-16) L 12/15/17 06:23 BUN 32 mg/dL (7-18) H 12/15/17 06:23 Creatinine 6.7 mg/dL (0.55-1.3) H 12/15/17 06:23 Random Glucose 148 mg/dL (74-106) H 12/15/17 06:23 Calcium 8.7 mg/dL (8.5-10.1) 12/15/17 06:23 INR 1.12 (0.83-1.09) H 12/14/17 13:25 Vascular Study: no evidence of DVT to left leg : Right leg limited study: no evidence of DVT to upper proximal thigh Right foot: NO fracture/dislocation. Heavy calcifications seen. Problem List - Problems (1) Cellulitis Assessment/Plan: Right thigh/2nd toe erythema. Continue IV abx as per ID. Spoke with Dr. Sheets and order placed to evaluated his RLE blood flow. Pt with faint DP pulse to this extremity and clinically PVRs/ALEJANDRA ordered. Continue HD via left UE fistula Surgery to follow the patient he may require further study of right lower ext Plan is for bedside debridment by podiatry/local wound care as per their management Code(s): L03.90 - CELLULITIS, UNSPECIFIED <Rja Sheets - Last Filed: 12/18/17 18:40> - Consultation REQUESTING PROVIDER: CONSULT REQUEST: We have been asked to surgically evaluate this patient for ( specify). PCP:Simon Tabares MD HISTORY OF PRESENT ILLNESS: PMHx: PSHx: Home Medications Medication Instructions Recorded Omeprazole [Prilosec (RX)] 20 mg PO DAILY 08/13/14 Atorvastatin Ca [Lipitor] 80 mg PO HS 05/24/16 Albuterol Sulfate [Proair 90 mcg IH DAILY 11/13/16 Respiclick] Cholecalciferol (Vitamin D3) 2,000 unit PO DAILY 11/13/16 [Vitamin D3] Aspirin [ASA -] 81 mg PO DAILY #30 tab.chew 11/15/16 Pregabalin [Lyrica -] 100 mg PO DAILY MDD 50 mg 04/19/17 Calcium Acetate [Phoslo -] 1,334 mg PO TIDCM capsule 04/27/17 Polyethylene Glycol 3350 [Miralax 17 gm PO DAILY bottle 04/27/17 119 gm Btl -] Carvedilol [Coreg -] 6.25 mg PO BID tablet 07/10/17 Torsemide [Demadex -] 80 mg PO MOWEFR tablet 07/10/17 Docusate Sodium [Colace -] 300 mg PO HS PRN 08/08/17 Sitagliptin Phosphate [Januvia -] 25 mg PO DAILY@0700 #30 tab 08/15/17 Allergies Allergy/AdvReac Type Severity Reaction Status Date / Time fish derived Allergy Severe Hives Verified 12/14/17 11:49 Shellfish Allergy Severe Verified 12/14/17 11:49 sulfamethoxazole Allergy Severe Swelling Verified 12/14/17 11:49 [From Bactrim DS] trimethoprim Allergy Severe Swelling Verified 12/14/17 11:49 [From Bactrim DS] REVIEW OF SYSTEMS: CONSTITUTIONAL: Absent: fever, chills, diaphoresis, generalized weakness, malaise, loss of appetite, weight change CARDIOVASCULAR: Absent: chest pain, syncope, palpitations, irregular heart rate, lightheadedness , peripheral edema RESPIRATORY: Absent: cough, shortness of breath, dyspnea with exertion, wheezing, stridor, hemoptysis GASTROINTESTINAL: Absent: abdominal pain, abdominal distension, nausea, vomiting, diarrhea, constipation, melena, hematochezia GENITOURINARY: Absent: dysuria, frequency, urgency, hesitancy, hematuria, flank pain, genital pain MUSCULOSKELETAL: Absent: myalgia, arthralgia, joint swelling, back pain, neck pain SKIN: Absent: rash, itching, pallor HEMATOLOGIC/IMMUNOLOGIC: Absent: easy bleeding, easy bruising, lymphadenopathy NEUROLOGIC: Absent: headache, focal weakness, paresthesias, dizziness, unsteady gait, seizure, mental status changes, bladder or bowel incontinence PSYCHIATRIC: Absent: anxiety, depression, suicidal or homicidal ideation, hallucinations. PHYSICAL EXAM: GENERAL: Awake, alert, and fully oriented, in no acute distress. HEAD: Normal with no signs of trauma. EYES: PERRL, sclera anicteric, conjunctiva clear. NECK: Normal ROM, supple without lymphadenopathy, JVD, or masses. LUNGS: Clear to auscultation bilat anteriorly. No wheezes, and no crackles. No accessory muscle use. HEART: Regular rate and rhythm. No murmurs ABDOMEN: Soft, nontender, not distended, normoactive bowel sounds, no guarding, no rebound, no masses. No organomegaly. MUSCULOSKELETAL: Normal ROM at all joints. No bony deformities or tenderness. No CVA tenderness. UPPER EXTREMITIES: 2+ pulses, warm, well-perfused. No cyanosis. Cap refill <2 seconds. No peripheral edema. LOWER EXTREMITIES: 2+ pulses, warm, well-perfused. No calf tenderness. No peripheral edema. NEUROLOGICAL: Normal speech, gait not observed. PSYCH: Cooperative. Good eye contact. Appropriate mood and affect. SKIN: Warm, dry, normal turgor, no rashes or lesions noted. Vital Signs Temperature 98.2 F 12/18/17 14:00 Pulse Rate 80 12/18/17 14:00 Respiratory Rate 20 12/18/17 14:00 Blood Pressure 162/80 12/18/17 14:00 O2 Sat by Pulse Oximetry (%) 96 12/17/17 21:00 Lab Results WBC 9.2 K/mm3 (4.0-10.0) 12/18/17 06:45 RBC 3.50 M/mm3 (4.00-5.60) L 12/18/17 06:45 Hgb 10.7 GM/dL (11.7-16.9) L 12/18/17 06:45 Hct 32.7 % (35.4-49) L 12/18/17 06:45 MCV 93.3 fl (80-96) 12/18/17 06:45 MCHC 32.8 g/dl (32.0-35.9) 12/18/17 06:45 RDW 16.9 % (11.9-15.9) H 12/18/17 06:45 Plt Count 211 K/MM3 (134-434) 12/18/17 06:45 Sodium 136 mmol/L (136-145) 12/18/17 06:45 Potassium 4.4 mmol/L (3.5-5.1) 12/18/17 06:45 Chloride 98 mmol/L (98-107) 12/18/17 06:45 Carbon Dioxide 29 mmol/L (21-32) 12/18/17 06:45 Anion Gap 10 MMOL/L (8-16) 12/18/17 06:45 BUN 46 mg/dL (7-18) H 12/18/17 06:45 Creatinine 8.3 mg/dL (0.55-1.3) H* 12/18/17 06:45 Random Glucose 147 mg/dL (74-106) H 12/18/17 06:45 Calcium 8.2 mg/dL (8.5-10.1) L 12/18/17 06:45 INR 1.12 (0.83-1.09) H 12/14/17 13:25 History reviewed and patient examined. Right 3rd toe discolored with shallow ulceration. Distal vessels in leg severely calcified and DP visible on plain x-ray. Old CTA reviewed with distal tibial calcification. Await PVR to get better indication of distal arterial perfusion. If flow appears reduced will need angiogram.
--- NOTE | 2017-12-15 15:41 | PN ---
Physical Exam: SUBJECTIVE: Patient seen and examined at bedside this morning. No acute events overnight. Patient reports improvement of pain and redness in the right thigh. OBJECTIVE: Vital Signs Period Temp Pulse Resp BP Sys/Leon Pulse Ox Last 24 Hr 97.8 F-98.7 F 72-94 18-20 95-119/51-74 96-99 GENERAL: Awake, alert, and fully oriented, in no acute distress. HEAD: Normal with no signs of trauma. EYES: PERRLA, EOMI, sclera anicteric, conjunctiva clear. EARS, NOSE, THROAT: Ears normal, nares patent, oropharynx clear without exudates. Moist mucous membranes. NECK: Normal range of motion, supple without lymphadenopathy, JVD, or masses. LUNGS: Breath sounds equal, clear to auscultation bilaterally. HEART: Regular rate and rhythm, normal S1 and S2 without murmur, rub or gallop. ABDOMEN: Soft, nontender, not distended, normoactive bowel sounds. MUSCULOSKELETAL: Normal range of motion at all joints. No bony deformities or tenderness. No CVA tenderness. UPPER EXTREMITIES: 2+ pulses, warm, well-perfused. No cyanosis. No clubbing. No peripheral edema. LOWER EXTREMITIES: BLE: +erythema, +tenderness on palpation of anterior oglesby, + warmth, +scaling with yellowish discoloration that extends from knees to foot. RLE: patchy areas of +erythema, +tenderness, +warmth on the medial lower 1/3 of the thigh. Pulses palpable. NEUROLOGICAL: Cranial nerves II-XII intact. Normal speech. Normal gait. PSYCHIATRIC: Cooperative. Good eye contact. Appropriate mood and affect. SKIN: Warm, dry, normal turgor, no rashes or lesions noted, normal capillary refill. Laboratory Results - last 24 hr 12/14/17 12/15/17 12/15/17 22:12 06:23 06:23 WBC 9.4 RBC 3.87 L Hgb 11.8 Hct 36.0 MCV 92.9 MCH 30.4 MCHC 32.7 RDW 17.3 H Plt Count 176 MPV 9.1 Absolute Neuts (auto) 7.1 Neutrophils % 75.6 Lymphocytes % 9.5 Monocytes % 8.6 Eosinophils % 5.5 H Basophils % 0.8 Nucleated RBC % 0 ESR Sodium Potassium Chloride Carbon Dioxide Anion Gap BUN Creatinine Creat Clearance w eGFR POC Glucometer [phone] Random Glucose Calcium Phosphorus Magnesium Total Bilirubin AST ALT Alkaline Phosphatase C-Reactive Protein Total Protein Albumin Random Vancomycin 8.9 L 12/15/17 12/15/17 12/15/17 06:23 06:23 06:23 WBC RBC Hgb Hct MCV MCH MCHC RDW Plt Count MPV Absolute Neuts (auto) Neutrophils % Lymphocytes % Monocytes % Eosinophils % Basophils % Nucleated RBC % ESR 71 H Sodium 135 L Potassium 4.4 Chloride 103 Carbon Dioxide 25 Anion Gap 7 L BUN 32 H Creatinine 6.7 H Creat Clearance w eGFR 8.58 POC Glucometer Random Glucose 148 H Calcium 8.7 Phosphorus 5.7 H Magnesium 2.3 Total Bilirubin 0.5 AST 15 ALT 11 L Alkaline Phosphatase 55 C-Reactive Protein 9.1 H Cancelled Total Protein 6.6 Albumin 2.8 L Random Vancomycin 12/15/17 12/15/17 06:24 11:18 WBC RBC Hgb Hct MCV MCH MCHC RDW Plt Count MPV Absolute Neuts (auto) Neutrophils % Lymphocytes % Monocytes % Eosinophils % Basophils % Nucleated RBC % ESR Sodium Potassium Chloride Carbon Dioxide Anion Gap BUN Creatinine Creat Clearance w eGFR POC Glucometer 151 232 Random Glucose Calcium Phosphorus Magnesium Total Bilirubin AST ALT Alkaline Phosphatase C-Reactive Protein Total Protein Albumin Random Vancomycin Active Medications Generic Name Dose Route Start Last Admin Trade Name Freq PRN Reason Stop Dose Admin Albuterol Sulfate 2 puff 12/15/17 06:46 Ventolin Hfa Inhaler - IH Q4H PRN SHORTNESS OF BREATH Aspirin 81 mg 12/15/17 10:00 12/15/17 09:52 Asa - PO 81 mg DAILY [facility] Administration Atorvastatin Calcium 80 mg 12/14/17 22:00 12/14/17 22:07 Lipitor - PO 80 mg HS [facility] Administration Calcium Acetate 1,334 mg 12/15/17 08:00 12/15/17 11:42 Phoslo - PO 1,334 mg TIDCM [facility] Administration Carvedilol 6.25 mg 12/14/17 22:00 12/15/17 09:52 Coreg - PO 6.25 mg BID [facility] Administration Cholecalciferol 2,000 unit 12/15/17 10:00 12/15/17 09:52 Vitamin D3 - PO 2,000 unit DAILY [facility] Administration Docusate Sodium 300 mg 12/14/17 22:00 Colace - PO HS PRN CONSTIPATION Heparin Sodium (Porcine) 5,000 unit 12/14/17 18:00 12/15/17 09:54 Heparin - SQ 5,000 unit Q8H-IV [facility] Administration Insulin Aspart 1 vial 12/14/17 22:00 12/15/17 11:42 Novolog Vial Sliding Scale - SQ 2 unit ACHS [facility] Administration Protocol Pantoprazole Sodium 40 mg 12/15/17 10:00 12/15/17 09:52 Protonix - PO Not Given DAILY [facility] Pantoprazole Sodium 20 mg 12/15/17 10:00 12/15/17 09:52 Protonix - PO 20 mg DAILY [facility] Administration Polyethylene Glycol 17 gm 12/15/17 10:00 12/15/17 11:44 Miralax (For Daily Use) - PO 17 gm DAILY [facility] Administration Pregabalin 100 mg 12/15/17 10:00 12/15/17 09:52 Lyrica - PO 100 mg DAILY [facility] Administration ASSESSMENT/PLAN: Patient is a 57 year old male with past medical history of anemia, asthma, COPD , DM, HTN, ESRD (HD TTS), PVD, and CVA, presented with Right leg pain. #RLE cellulitis -Vanc/Zosyn given at the ED. Ertapenem 1gm once given. -Previous wound Cx - MRSA, ESBL, A. baumanii -Xray of the right foot -Duplex US of b/l legs -Podiatry (Dr. Chester) consulted.Recommendations appreciated. -Vascular consult ordered -MRI ordered to rule out osteomyelitis -Debridement tray ordered to bedside -ID (Dr. Giron) consulted. Recommendations appreciated. -Vancomycin 1gm given today, will be given daily dose adjusted -MRI of R foot -Vascular surgery (Dr. Sheets) consulted. Recommendations appreciated. -Evaluated his RLE blood flow. Pt with faint DP pulse to this extremity and clinically -PVRs/ALEJANDRA ordered. -Continue HD via left UE fistula -For bedside debridment by podiatry/local wound care as per their management #ESRD on HD -On HD TTS -Neurology (Dr. Win) consulted. -will arrange for HD tomorrow -Avoid nephrotoxic agents such as NSAIDs, aminoglycosides, or contrast #DM -hold Januvia -BGM ACHS -Implement insulin sliding scale #HTN -Continue Torsemide 80 mg daily, Coreg 6.25 BID #Hx of CVA -Continue ASA 81, Atorvastatin 80mg #HOLLY -on CPAP #COPD -Albuterol Inh PRN #FEN -Not on any standing fluids -Encourage increased oral fluid intake -Electrolytes wnl, routine bmp monitoring -diabetic/sodium diet #Prophylaxis -Heparin 5000units sq tid #Disposition -full code -admit to med-surg Visit type - Emergency Visit Emergency Visit: Yes ED Registration Date: 12/14/17 Care time: The patient presented to the Emergency Department on the above date and was hospitalized for further evaluation of their emergent condition. - New Patient This patient is new to me today: Yes Date on this admission: 12/15/17 - Critical Care Critical Care patient: No
--- NOTE | 2017-12-15 16:21 | CONSULT ---
Consult Consult Specialty:: Nephrology Reason for Consultation:: ESRD - History of Present Illness Chief Complaint: right foot pain History of Present Illness: Pt is a 57 year old male with pmhx of anemia, asthma, COPD,. ESRD (TTS), HTN, DM , PVD and CVA who presents to the ER with right leg pain. He has had cellulitis and chronic recurrent infections. He has received hyperbaric treatment in the past. I was called to evaluate him as he is on HD. His last dialysis was yesterday and was not eventful. He denies fevers or chills. 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 Cardio/Vascular: Yes: HTN, Hyperlipdemia Pulmonary: Yes: Sleep Apnea Gastrointestinal: Yes: GERD, Other (obesity) Renal/: Yes: Renal Failure, Renal Inusuff, Hemodialysis, Other Endocrine: Yes: Diabetes Mellitus - Past Surgical History Past Surgical History: Yes: AV Fistula/Graft Additional Surgical History: left TMA - Alcohol/Substance Use Hx Alcohol Use: No - Smoking History Smoking history: Never smoked Have you smoked in the past 12 months: No Aproximately how many cigarettes per day: 0 - Social History Usual Living Arrangement: Long Term ADL: Independent History of Recent Travel: No Home Medications - Allergies Allergies/Adverse Reactions: Allergies Allergy/AdvReac Type Severity Reaction Status Date / Time fish derived Allergy Severe Hives Verified 12/14/17 11:49 Shellfish Allergy Severe Verified 12/14/17 11:49 sulfamethoxazole Allergy Severe Swelling Verified 12/14/17 11:49 [From Bactrim DS] trimethoprim Allergy Severe Swelling Verified 12/14/17 11:49 [From Bactrim DS] - Home Medications Home Medications: Ambulatory Orders Omeprazole [Prilosec (RX)] 20 mg PO DAILY 08/13/14 Atorvastatin Ca [Lipitor] 80 mg PO HS 05/24/16 Albuterol Sulfate [Proair Respiclick] 90 mcg IH DAILY 11/13/16 Cholecalciferol (Vitamin D3) [Vitamin D3] 2,000 unit PO DAILY 11/13/16 Aspirin [ASA -] 81 mg PO DAILY #30 tab.chew 11/15/16 Pregabalin [Lyrica -] 100 mg PO DAILY MDD 50 mg 04/19/17 Calcium Acetate [Phoslo -] 1,334 mg PO TIDCM capsule 04/27/17 Polyethylene Glycol 3350 [Miralax 119 gm Btl -] 17 gm PO DAILY bottle 04/27/17 Carvedilol [Coreg -] 6.25 mg PO BID tablet 07/10/17 Torsemide [Demadex -] 80 mg PO MOWEFR tablet 07/10/17 Docusate Sodium [Colace -] 300 mg PO HS PRN 08/08/17 Sitagliptin Phosphate [Januvia -] 25 mg PO DAILY@0700 #30 tab 08/15/17 Family Disease History - Family Disease History Family Disease History: Heart Disease: Father ( of SANON at 43 ), CA: Mother ( Breast) Review of Systems - Review of Systems Constitutional: reports: No Symptoms. denies: Chills, Fever Eyes: reports: No Symptoms HENT: reports: No Symptoms Neck: reports: No Symptoms Cardiovascular: reports: Edema Respiratory: reports: No Symptoms Gastrointestinal: reports: No Symptoms Musculoskeletal: reports: Other (right leg/foot pain) Integumentary: reports: Erythema Hematology/Lymphatic: reports: No Symptoms Psychiatric: reports: No Symptoms Physical Exam Vital Signs: Vital Signs Temperature 98.1 F 12/15/17 15:27 Pulse Rate 77 12/15/17 15:27 Respiratory Rate 20 12/15/17 15:27 Blood Pressure 119/61 12/15/17 15:27 O2 Sat by Pulse Oximetry (%) 98 12/15/17 01:38 Constitutional: Yes: Calm Eyes: Yes: Conjunctiva Clear HENT: Yes: Atraumatic Neck: Yes: Supple Cardiovascular: Yes: S1, S2 Respiratory: Yes: CTA Bilaterally Gastrointestinal: Yes: Normal Bowel Sounds, Soft, Abdomen, Obese Musculoskeletal: Yes: Other (lymphedema) Edema: Yes Edema: LLE: 1+, RLE: 1+ Wound/Incision: Yes: Open to air, Reddened Neurological: Yes: Oriented Psychiatric: Yes: Oriented Labs: CBC, BMP 12/15/17 06:23 12/15/17 06:23 Imaging - Results Chest X-ray: Report Reviewed Problem List - Problems (1) Cellulitis Code(s): L03.90 - CELLULITIS, UNSPECIFIED (2) Diabetes mellitus Code(s): E11.9 - TYPE 2 DIABETES MELLITUS WITHOUT COMPLICATIONS Qualifiers: Diabetes mellitus type: type 2 (3) ESRD (end stage renal disease) Code(s): N18.6 - END STAGE RENAL DISEASE (4) HLD (hyperlipidemia) Code(s): E78.5 - HYPERLIPIDEMIA, UNSPECIFIED (5) HTN (hypertension) Code(s): I10 - ESSENTIAL (PRIMARY) HYPERTENSION (6) Lymph edema Code(s): I89.0 - LYMPHEDEMA, NOT ELSEWHERE CLASSIFIED (7) Morbid obesity Code(s): E66.01 - MORBID (SEVERE) OBESITY DUE TO EXCESS CALORIES Assessment/Plan Current Medications Generic Name Dose Route Start Last Admin Trade Name Freq PRN Reason Stop Dose Admin Albuterol Sulfate 2 puff 12/15/17 06:46 Ventolin Hfa Inhaler - IH Q4H PRN SHORTNESS OF BREATH Aspirin 81 mg 12/15/17 10:00 12/15/17 09:52 Asa - PO 81 mg DAILY [facility] Administration Atorvastatin Calcium 80 mg 12/14/17 22:00 12/14/17 22:07 Lipitor - PO 80 mg HS [facility] Administration Calcium Acetate 1,334 mg 12/15/17 08:00 12/15/17 11:42 Phoslo - PO 1,334 mg TIDCM [facility] Administration Carvedilol 6.25 mg 12/14/17 22:00 12/15/17 09:52 Coreg - PO 6.25 mg BID [facility] Administration Cholecalciferol 2,000 unit 12/15/17 10:00 12/15/17 09:52 Vitamin D3 - PO 2,000 unit DAILY [facility] Administration Docusate Sodium 300 mg 12/14/17 22:00 Colace - PO HS PRN CONSTIPATION Heparin Sodium (Porcine) 5,000 unit 12/14/17 18:00 12/15/17 09:54 Heparin - SQ 5,000 unit Q8H-IV [facility] Administration Insulin Aspart 1 vial 12/14/17 22:00 12/15/17 11:42 Novolog Vial Sliding Scale - SQ 2 unit ACHS [facility] Administration Protocol Pantoprazole Sodium 40 mg 12/15/17 10:00 12/15/17 09:52 Protonix - PO Not Given DAILY [facility] Pantoprazole Sodium 20 mg 12/15/17 10:00 12/15/17 09:52 Protonix - PO 20 mg DAILY [facility] Administration Polyethylene Glycol 17 gm 12/15/17 10:00 12/15/17 11:44 Miralax (For Daily Use) - PO 17 gm DAILY [facility] Administration Pregabalin 100 mg 12/15/17 10:00 12/15/17 09:52 Lyrica - PO 100 mg DAILY [facility] Administration Impression 1. ESRD 2. anemia 3. HTN 4. morbid obesity 5. CVA 6. hyperlipidemia 7. proteinuria - nephrotic 8. PVD 9. foot ulcer Plan - will arrange for HD tomorrow - podiatry eval and follow up - prelim blood cultures negative, cont to follow - will follow Dr Win
[2017-12-15] MEDS: ATORVASTATIN CA 80 MG TABLET (FP) PO SCH (22:27)
[2017-12-16] MEDS: HEPARIN NA (PORCINE) 5,000 UNITS/ML 1ML VIAL SQ SCH ×3 (01:49→17:14)
[2017-12-16] MEDS ORDERED: PT OWN MED DRAWER 7, Y5N ONE ×2 (06:00→13:39)
[2017-12-16] MEDS: INSULIN SLIDING SCALE (NOVOLOG) 1 VIAL SQ SCH ×4 (06:51→22:09)
[2017-12-16] MEDS: CALCIUM ACETATE 667 MG CAPSULE (FP) PO SCH ×3 (07:52→17:13)
--- NOTE | 2017-12-16 07:53 | PN ---
Progress Note (short form) - Note Progress Note: Podiatry F/U: Seen/evaluated at bedside NAD. Pain controlled, denies F/V/N/C/SOB/CP. Afebrile. Presented for cellulitis, duskiness to right second toe. Complicated microvascular history with diabetic ulcers, s/p L TMA. KEEGAN: L foot: healed TMA stump, the stump is warm and well perfused R foot: pedal pulses non-palpable, TG wnl, CFT delayed to second digit; 2nd/3rd toe localized erythema; there is an ulcer dorsal PIPJ second digit with serosanguinous drainage, duskiness to the distal aspect of the second digit, no purulence, no fluctuance, no soft tissue crepitus, no streaking cellulitis Blood Cx: negative x 24 hrs WBC: 9.4 ESR: 71 Imp: 57 year old DM, PVD M with R 2nd digit diabetic infection 1. Informed consent obtained. Excisional debridement of right second digit diabetic ulcer to subcutaneous tissue using sterile #15 blade scalpel and forceps. Patient tolerated the procedure well without complications. 2. Rx santyl for local wound care 3. For vascular workup 4. Will try to watch progression of the toe clinically, hopefully he will not need amputation. Continue IV abx per infectious disease. Amarilis Alcantara DPM
[2017-12-16] MEDS ORDERED: SODIUM CHLORIDE 250 ML IV PRN (08:26)
[2017-12-16] MEDS ORDERED: HEPARIN NA (PORCINE) 5,000 UNITS/ML 1ML VIAL IVPUSH ONE (09:00)
[2017-12-16 09:21] LABS: BASO % 1.3 % (0-2.0); EOS % 7.1 % (0-4.5); HEMATOCRIT 35.8 % (35.4-49); HEMOGLOBIN 11.8 GM/dL (11.7-16.9); LYMPH % 12.1 % (8-40); MCH 30.7 pg (25.7-33.7); MCHC 32.9 g/dl (32.0-35.9); MEAN CELL VOLUME 93.4 fl (80-96); MEAN PLT VOLUME 9.8 fl (7.5-11.1); NEUT % 72.5 % (42.8-82.8); PLATELET COUNT 213 K/MM3 (134-434); RBC 3.83 M/mm3 (4.00-5.60); RDW 16.7 % (11.9-15.9)
[2017-12-16 10:01] LABS: ALBUMIN 2.8 g/dl (3.4-5.0); ALK PHOS 56 U/L (45-117); ANION GAP 11 MMOL/L (8-16); BILIRUBIN,TOTAL 0.4 mg/dL (0.2-1); BLOOD UREA NITROGEN 48 mg/dL (7-18); CHLORIDE 100 mmol/L (98-107); CO2 21 mmol/L (21-32); GLUCOSE,RANDOM 256 mg/dL (74-106); MAGNESIUM 2.3 mg/dL (1.8-2.4); PHOSPHOROUS 6.4 mg/dL (2.5-4.9); POTASSIUM 4.7 mmol/L (3.5-5.1); SGOT/AST 16 U/L (15-37); SGPT/ALT 14 U/L (13-61); SODIUM 132 mmol/L (136-145); TOT PROT 6.6 g/dl (6.4-8.2)
[2017-12-16 10:10] LABS: CREATININE 8.3 mg/dL (0.55-1.3)
--- NOTE | 2017-12-16 11:21 | PN ---
Progress Note (short form) - Note Progress Note: RENAL Pt awake and alert currently on hemodialysis denies any new complaints except he is cold Last Vital Signs Temp Pulse Resp BP Pulse Ox 98.2 F 85 18 136/92 98 12/16/17 08:40 12/16/17 09:45 12/16/17 09:45 12/16/17 09:45 12/15/17 21:00 lungs clear cvs s1s2 rr abd soft ext no edema, s/p left TMA neuro a+ox3 CBC, BMP 12/16/17 08:45 12/16/17 09:30 Current Medications Generic Name Dose Route Start Last Admin Trade Name Freq PRN Reason Stop Dose Admin Albuterol Sulfate 2 puff 12/15/17 06:46 Ventolin Hfa Inhaler - IH Q4H PRN SHORTNESS OF BREATH Aspirin 81 mg 12/15/17 10:00 12/15/17 09:52 Asa - PO 81 mg DAILY [facility] Administration Atorvastatin Calcium 80 mg 12/14/17 22:00 12/15/17 22:27 Lipitor - PO 80 mg HS [facility] Administration Calcium Acetate 1,334 mg 12/15/17 08:00 12/16/17 07:52 Phoslo - PO 1,334 mg TIDCM [facility] Administration Carvedilol 6.25 mg 12/14/17 22:00 12/15/17 22:27 Coreg - PO 6.25 mg BID [facility] Administration Cholecalciferol 2,000 unit 12/15/17 10:00 12/15/17 09:52 Vitamin D3 - PO 2,000 unit DAILY [facility] Administration Collagenase 1 applic 12/16/17 10:00 Santyl - TP DAILY [facility] Protocol Docusate Sodium 300 mg 12/14/17 22:00 Colace - PO HS PRN CONSTIPATION Heparin Sodium (Porcine) 5,000 unit 12/14/17 18:00 12/16/17 01:49 Heparin - SQ 5,000 unit Q8H-IV [facility] Administration Sodium Chloride 250 mls @ 3,000 mls/hr 12/16/17 08:26 Normal Saline - IV 12/17/17 08:25 PRN PRN Hypotension during Dialysis Piperacillin Sod/Tazobactam 50 mls @ 100 mls/hr 12/16/17 10:00 Sod 2.25 gm/ Dextrose IVPB Q8H-IV [facility] Protocol Insulin Aspart 1 vial 12/14/17 22:00 12/16/17 06:51 Novolog Vial Sliding Scale - SQ Not Given ACHS [facility] Protocol Pantoprazole Sodium 40 mg 12/15/17 10:00 12/15/17 09:52 Protonix - PO Not Given DAILY [facility] Pantoprazole Sodium 20 mg 12/15/17 10:00 12/15/17 09:52 Protonix - PO 20 mg DAILY [facility] Administration Polyethylene Glycol 17 gm 12/15/17 10:00 12/15/17 11:44 Miralax (For Daily Use) - PO 17 gm DAILY [facility] Administration Pregabalin 100 mg 12/15/17 10:00 12/15/17 09:52 Lyrica - PO 100 mg DAILY [facility] Administration Impression 1. ESRD 2. anemia 3. HTN 4. morbid obesity 5. CVA 6. hyperlipidemia 7. proteinuria - nephrotic 8. PVD 9. foot ulcer Plan -s/p debridement of toe today -continue HD today -vascular follow up -follow up of cultures MV
--- NOTE | 2017-12-16 11:34 | PN ---
Physical Exam: SUBJECTIVE: Patient seen and examined at bedside this morning. No acute events overnight. Redness on the lower thigh almost resolved. Patient also reports less pain. Debridement of Right 2nd toe done this AM. For HD today. OBJECTIVE: Vital Signs Period Temp Pulse Resp BP Sys/Leon Pulse Ox Last 24 Hr 97.6 F-98.2 F 73-97 18-20 93-154/56-92 98 GENERAL: Awake, alert, and fully oriented, in no acute distress. HEAD: Normal with no signs of trauma. EYES: PERRLA, EOMI, sclera anicteric, conjunctiva clear. EARS, NOSE, THROAT: Ears normal, nares patent, oropharynx clear without exudates. Moist mucous membranes. NECK: Normal range of motion, supple without lymphadenopathy, JVD, or masses. LUNGS: Breath sounds equal, clear to auscultation bilaterally. HEART: Regular rate and rhythm, normal S1 and S2 without murmur, rub or gallop. ABDOMEN: Soft, nontender, not distended, normoactive bowel sounds. MUSCULOSKELETAL: Normal range of motion at all joints. No bony deformities or tenderness. No CVA tenderness. UPPER EXTREMITIES: 2+ pulses, warm, well-perfused. No cyanosis. No clubbing. No peripheral edema. LOWER EXTREMITIES: BLE: +erythema, +tenderness on palpation of anterior oglesby, + warmth, +scaling with yellowish discoloration that extends from knees to foot. Right 2nd toe bandaged. Pulses palpable. NEUROLOGICAL: Cranial nerves II-XII intact. Normal speech. Normal gait. PSYCHIATRIC: Cooperative. Good eye contact. Appropriate mood and affect. SKIN: Warm, dry, normal turgor, no rashes or lesions noted, normal capillary refill. Laboratory Results - last 24 hr 12/15/17 12/15/17 12/15/17 11:18 16:38 22:27 WBC RBC Hgb Hct MCV MCH MCHC RDW Plt Count MPV Absolute Neuts (auto) Neutrophils % Lymphocytes % Monocytes % Eosinophils % Basophils % Nucleated RBC % Sodium Potassium Chloride Carbon Dioxide Anion Gap BUN Creatinine Creat Clearance w eGFR POC Glucometer 232 162 134 Random Glucose Calcium Phosphorus Magnesium Total Bilirubin AST ALT Alkaline Phosphatase Total Protein Albumin Random Vancomycin 12/16/17 12/16/17 12/16/17 06:42 08:45 08:45 WBC 9.0 RBC 3.83 L Hgb 11.8 Hct 35.8 MCV 93.4 MCH 30.7 MCHC 32.9 RDW 16.7 H Plt Count 213 D MPV 9.8 Absolute Neuts (auto) 6.5 Neutrophils % 72.5 Lymphocytes % 12.1 D Monocytes % 7.0 Eosinophils % 7.1 H Basophils % 1.3 Nucleated RBC % 0 Sodium Potassium Chloride Carbon Dioxide Anion Gap BUN Creatinine Creat Clearance w eGFR POC Glucometer 150 Random Glucose Calcium Phosphorus Magnesium Total Bilirubin AST ALT Alkaline Phosphatase Total Protein Albumin Random Vancomycin 14.0 L 12/16/17 09:30 WBC RBC Hgb Hct MCV MCH MCHC RDW Plt Count MPV Absolute Neuts (auto) Neutrophils % Lymphocytes % Monocytes % Eosinophils % Basophils % Nucleated RBC % Sodium 132 L Potassium 4.7 Chloride 100 Carbon Dioxide 21 Anion Gap 11 BUN 48 H Creatinine 8.3 H* Creat Clearance w eGFR 6.70 POC Glucometer Random Glucose 256 H Calcium 9.0 Phosphorus 6.4 H Magnesium 2.3 Total Bilirubin 0.4 AST 16 ALT 14 Alkaline Phosphatase 56 Total Protein 6.6 Albumin 2.8 L Random Vancomycin Active Medications Generic Name Dose Route Start Last Admin Trade Name Freq PRN Reason Stop Dose Admin Albuterol Sulfate 2 puff 12/15/17 06:46 Ventolin Hfa Inhaler - IH Q4H PRN SHORTNESS OF BREATH Aspirin 81 mg 12/15/17 10:00 12/15/17 09:52 Asa - PO 81 mg DAILY [facility] Administration Atorvastatin Calcium 80 mg 12/14/17 22:00 12/15/17 22:27 Lipitor - PO 80 mg HS [facility] Administration Calcium Acetate 1,334 mg 12/15/17 08:00 12/16/17 07:52 Phoslo - PO 1,334 mg TIDCM [facility] Administration Carvedilol 6.25 mg 12/14/17 22:00 12/15/17 22:27 Coreg - PO 6.25 mg BID [facility] Administration Cholecalciferol 2,000 unit 12/15/17 10:00 12/15/17 09:52 Vitamin D3 - PO 2,000 unit DAILY [facility] Administration Collagenase 1 applic 12/16/17 10:00 Santyl - TP DAILY [facility] Protocol Docusate Sodium 300 mg 12/14/17 22:00 Colace - PO HS PRN CONSTIPATION Heparin Sodium (Porcine) 5,000 unit 12/14/17 18:00 12/16/17 01:49 Heparin - SQ 5,000 unit Q8H-IV [facility] Administration Sodium Chloride 250 mls @ 3,000 mls/hr 12/16/17 08:26 Normal Saline - IV 12/17/17 08:25 PRN PRN Hypotension during Dialysis Piperacillin Sod/Tazobactam 50 mls @ 100 mls/hr 12/16/17 10:00 Sod 2.25 gm/ Dextrose IVPB Q8H-IV [facility] Protocol Insulin Aspart 1 vial 12/14/17 22:00 12/16/17 06:51 Novolog Vial Sliding Scale - SQ Not Given ACHS [facility] Protocol Pantoprazole Sodium 40 mg 12/15/17 10:00 12/15/17 09:52 Protonix - PO Not Given DAILY [facility] Pantoprazole Sodium 20 mg 12/15/17 10:00 12/15/17 09:52 Protonix - PO 20 mg DAILY [facility] Administration Polyethylene Glycol 17 gm 12/15/17 10:00 12/15/17 11:44 Miralax (For Daily Use) - PO 17 gm DAILY [facility] Administration Pregabalin 100 mg 12/15/17 10:00 12/15/17 09:52 Lyrica - PO 100 mg DAILY [facility] Administration ASSESSMENT/PLAN: Patient is a 57 year old male with past medical history of anemia, asthma, COPD , DM, HTN, ESRD (HD TTS), PVD, and CVA, presented with Right leg pain. #RLE cellulitis -Vanc/Zosyn given at the ED. Ertapenem 1gm once given. -Previous wound Cx - MRSA, ESBL, A. baumanii -Xray of the right foot -no fractures or bone destruction -Duplex US of b/l legs - no DVT -Podiatry (Dr. Alcantara) consulted.Recommendations appreciated. -s/p excisional debridement of right 2nd digit diabetic ulcer to subcutaneous tissue -Rx santyl for local wound care -For vascular work-up -MRI ordered to rule out osteomyelitis -Will try to watch progression of the toe clinically, hopefully will not need amputation. -ID (Dr. Giron) consulted. Recommendations appreciated. -Vancomycin 1gm given yesterday, dose adjusted -Vancomycin level today 14 -Zosyn 2.25g q8h started. -MRI of R foot -Vascular surgery (Dr. Sheets) consulted. Recommendations appreciated. -PVRs/ALEJANDRA ordered. -Continue HD via left UE fistula #ESRD on HD -On HD TTS -Neurology (Dr. Win) consulted. -For HD today. -Avoid nephrotoxic agents such as NSAIDs, aminoglycosides, or contrast #DM -hold Januvia -BGM ACHS -Implement insulin sliding scale #HTN -Continue Torsemide 80 mg daily, Coreg 6.25 BID #Hx of CVA -Continue ASA 81, Atorvastatin 80mg #HOLLY -on CPAP #COPD -Albuterol Inh PRN #FEN -Not on any standing fluids -Encourage increased oral fluid intake -Electrolytes wnl, routine bmp monitoring -diabetic/sodium diet #Prophylaxis -Heparin 5000units sq tid #Disposition -full code -admit to med-surg Visit type - Emergency Visit Emergency Visit: Yes ED Registration Date: 12/14/17 Care time: The patient presented to the Emergency Department on the above date and was hospitalized for further evaluation of their emergent condition. - New Patient This patient is new to me today: Yes Date on this admission: 12/16/17 - Critical Care Critical Care patient: No
--- NOTE | 2017-12-16 11:46 | PN ---
Teaching Attending Note Name of Resident: Barbara Nuñez ATTENDING PHYSICIAN STATEMENT I saw and evaluated the patient. I reviewed the resident's note and discussed the case with the resident. I agree with the resident's findings and plan as documented with exceptions below. SUBJECTIVE: Patient seen and examined. no complaints. Right thigh symptoms improved. OBJECTIVE: Vital Signs Period Temp Pulse Resp BP Sys/Leon Pulse Ox Last 24 Hr 97.6 F-98.2 F 73-97 18-20 93-154/56-92 98 Intake & Output 12/13/17 12/14/17 12/15/17 12/16/17 23:59 23:59 23:59 23:59 Intake Total 975 255 Output Total 300 Balance 975 -45 Weight 362 lb 6.4 oz 364 lb 4 oz 364 lb 2 oz General: lying in bed, no acute distress Chest: no rales or wheezing Abdomen:soft, obese, NT Extremities: right thigh minimal area of erythema, almost resolved. Bilateral LE unchanged, Right second toe dressing, deferred further exam Active Medications Albuterol Sulfate (Ventolin Hfa Inhaler -) 2 puff IH Q4H PRN PRN Reason: SHORTNESS OF BREATH Aspirin (Asa -) 81 mg PO DAILY [facility] Last Admin: 12/15/17 09:52 Dose: 81 mg Atorvastatin Calcium (Lipitor -) 80 mg PO HS [facility] Last Admin: 12/15/17 22:27 Dose: 80 mg Calcium Acetate (Phoslo -) 1,334 mg PO TIDCM [facility] Last Admin: 12/16/17 07:52 Dose: 1,334 mg Carvedilol (Coreg -) 6.25 mg PO BID [facility] Last Admin: 12/15/17 22:27 Dose: 6.25 mg Cholecalciferol (Vitamin D3 -) 2,000 unit PO DAILY [facility] Last Admin: 12/15/17 09:52 Dose: 2,000 unit Collagenase (Santyl -) 1 applic TP DAILY [facility]; Protocol Docusate Sodium (Colace -) 300 mg PO HS PRN PRN Reason: CONSTIPATION Heparin Sodium (Porcine) (Heparin -) 5,000 unit SQ Q8H-IV [facility] Last Admin: 12/16/17 01:49 Dose: 5,000 unit Sodium Chloride (Normal Saline -) 250 mls @ 3,000 mls/hr IV PRN PRN PRN Reason: Hypotension during Dialysis Stop: 12/17/17 08:25 Piperacillin Sod/Tazobactam (Sod 2.25 gm/ Dextrose) 50 mls @ 100 mls/hr IVPB Q8H-IV [facility]; Protocol Insulin Aspart (Novolog Vial Sliding Scale -) 1 vial SQ ACHS [facility]; Protocol Last Admin: 12/16/17 06:51 Dose: Not Given Pantoprazole Sodium (Protonix -) 40 mg PO DAILY [facility] Last Admin: 12/15/17 09:52 Dose: Not Given Pantoprazole Sodium (Protonix -) 20 mg PO DAILY [facility] Last Admin: 12/15/17 09:52 Dose: 20 mg Polyethylene Glycol (Miralax (For Daily Use) -) 17 gm PO DAILY [facility] Last Admin: 12/15/17 11:44 Dose: 17 gm Pregabalin (Lyrica -) 100 mg PO DAILY [facility] Last Admin: 12/15/17 09:52 Dose: 100 mg Laboratory Results - last 24 hr 12/15/17 12/15/17 12/16/17 16:38 22:27 06:42 WBC RBC Hgb Hct MCV MCH MCHC RDW Plt Count MPV Absolute Neuts (auto) Neutrophils % Lymphocytes % Monocytes % Eosinophils % Basophils % Nucleated RBC % Sodium Potassium Chloride Carbon Dioxide Anion Gap BUN Creatinine Creat Clearance w eGFR POC Glucometer 162 134 150 Random Glucose Calcium Phosphorus Magnesium Total Bilirubin AST ALT Alkaline Phosphatase Total Protein Albumin Random Vancomycin 12/16/17 12/16/17 12/16/17 08:45 08:45 09:30 WBC 9.0 RBC 3.83 L Hgb 11.8 Hct 35.8 MCV 93.4 MCH 30.7 MCHC 32.9 RDW 16.7 H Plt Count 213 D MPV 9.8 Absolute Neuts (auto) 6.5 Neutrophils % 72.5 Lymphocytes % 12.1 D Monocytes % 7.0 Eosinophils % 7.1 H Basophils % 1.3 Nucleated RBC % 0 Sodium 132 L Potassium 4.7 Chloride 100 Carbon Dioxide 21 Anion Gap 11 BUN 48 H Creatinine 8.3 H* Creat Clearance w eGFR 6.70 POC Glucometer Random Glucose 256 H Calcium 9.0 Phosphorus 6.4 H Magnesium 2.3 Total Bilirubin 0.4 AST 16 ALT 14 Alkaline Phosphatase 56 Total Protein 6.6 Albumin 2.8 L Random Vancomycin 14.0 L Active Medications Albuterol Sulfate (Ventolin Hfa Inhaler -) 2 puff IH Q4H PRN PRN Reason: SHORTNESS OF BREATH Aspirin (Asa -) 81 mg PO DAILY [facility] Last Admin: 12/15/17 09:52 Dose: 81 mg Atorvastatin Calcium (Lipitor -) 80 mg PO HS [facility] Last Admin: 12/15/17 22:27 Dose: 80 mg Calcium Acetate (Phoslo -) 1,334 mg PO TIDCM [facility] Last Admin: 12/16/17 07:52 Dose: 1,334 mg Carvedilol (Coreg -) 6.25 mg PO BID [facility] Last Admin: 12/15/17 22:27 Dose: 6.25 mg Cholecalciferol (Vitamin D3 -) 2,000 unit PO DAILY [facility] Last Admin: 12/15/17 09:52 Dose: 2,000 unit Collagenase (Santyl -) 1 applic TP DAILY [facility]; Protocol Docusate Sodium (Colace -) 300 mg PO HS PRN PRN Reason: CONSTIPATION Heparin Sodium (Porcine) (Heparin -) 5,000 unit SQ Q8H-IV [facility] Last Admin: 12/16/17 01:49 Dose: 5,000 unit Sodium Chloride (Normal Saline -) 250 mls @ 3,000 mls/hr IV PRN PRN PRN Reason: Hypotension during Dialysis Stop: 12/17/17 08:25 Piperacillin Sod/Tazobactam (Sod 2.25 gm/ Dextrose) 50 mls @ 100 mls/hr IVPB Q8H-IV [facility]; Protocol Insulin Aspart (Novolog Vial Sliding Scale -) 1 vial SQ ACHS [facility]; Protocol Last Admin: 12/16/17 06:51 Dose: Not Given Pantoprazole Sodium (Protonix -) 40 mg PO DAILY [facility] Last Admin: 12/15/17 09:52 Dose: Not Given Pantoprazole Sodium (Protonix -) 20 mg PO DAILY [facility] Last Admin: 12/15/17 09:52 Dose: 20 mg Polyethylene Glycol (Miralax (For Daily Use) -) 17 gm PO DAILY [facility] Last Admin: 12/15/17 11:44 Dose: 17 gm Pregabalin (Lyrica -) 100 mg PO DAILY [facility] Last Admin: 12/15/17 09:52 Dose: 100 mg ASSESSMENT AND PLAN: 57 yom with pMHx of admitted with RLE cellulitis -RLE cellulitis, r/o 2nd toe OM, PAD -ESRD on HD -NIDDM -HTN -H/o Right TMA (Wound with ESBL/MRSA) -COPD -HOLLY on CPAP Plan: ZOsyn/vanco renal dosing. s/p right 2nd toe debridement today, follow up cx. Vascular surgery input noted. MRI RLE, ALEJANDRA/PVR follow up. Duplex neg for DVT. Foot xray noted.. Renal consult for HD. Hold januvia. ISS, diabetic diet Hold home torsemide for now. Continue ASA/coreg/statin/Albuterol DVTPPX heparin Dispo pending clinical improvement. Plan discussed with patient in detail, all questions answered.
[2017-12-16] MEDS ORDERED: PIPERACILLIN/TAZOBACTAM 2.25 GM VIAL IVPB ONE ×2 (13:40→16:56)
[2017-12-16] MEDS ORDERED: DEXTROSE 5%-WATER - 50 ML IVPB ONE ×2 (13:40→16:57)
[2017-12-16] MEDS: PREGABALIN 100 MG CAPSULE PO SCH (13:42)
[2017-12-16] MEDS: ASPIRIN 81 MG CHEWABLE TABLETS PO SCH (13:42)
[2017-12-16] MEDS: CHOLECALCIFEROL (VITAMIN D3) 1,000 UNIT TABLET (FP) PO SCH (13:42)
[2017-12-16] MEDS: PANTOPRAZOLE 40 MG TABLET (FP) PO SCH (13:42)
[2017-12-16] MEDS: COLLAGENASE CLOSTRIDIUM HIST. 30 GRAMS TUBE TP SCH (13:43)
[2017-12-16] MEDS: PANTOPRAZOLE 20 MG TABLET (FP) PO SCH (13:43)
[2017-12-16] MEDS: CARVEDILOL 6.25 MG TABLET (FP) PO SCH ×2 (13:43→22:11)
[2017-12-16] MEDS: POLYETHYLENE GLYCOL 3350 119 GM BTL PO SCH (13:44)
[2017-12-16] MEDS: PIPERACILLIN/TAZOB 2.25 GM 2.25 GM in DEXTROSE 5%-WATER - 50 ML IVPB SCH ×3 (13:44→18:20)
[2017-12-16] MEDS ORDERED: INSULIN (NOVOLOG) ASPART 100 UNITS/ML 10ML VIAL ONE (21:18)
[2017-12-16] MEDS: ATORVASTATIN CA 80 MG TABLET (FP) PO SCH (22:11)
[2017-12-17] MEDS ORDERED: PIPERACILLIN/TAZOBACTAM 2.25 GM VIAL IVPB ONE ×3 (01:45→17:33)
[2017-12-17] MEDS ORDERED: DEXTROSE 5%-WATER - 50 ML IVPB ONE ×3 (01:45→17:33)
[2017-12-17] MEDS: PIPERACILLIN/TAZOB 2.25 GM 2.25 GM in DEXTROSE 5%-WATER - 50 ML IVPB SCH ×3 (02:11→16:00)
[2017-12-17] MEDS: HEPARIN NA (PORCINE) 5,000 UNITS/ML 1ML VIAL SQ SCH ×3 (02:27→17:20)
[2017-12-17] MEDS: INSULIN SLIDING SCALE (NOVOLOG) 1 VIAL SQ SCH ×4 (06:30→21:54)
[2017-12-17 06:37] LABS: HBSAG SCREEN Negative (Negative); HEP B CORE AB, TOT Negative (Negative)
[2017-12-17 07:42] LABS: BASO % 1.3 % (0-2.0); EOS % 6.8 % (0-4.5); HEMOGLOBIN 11.3 GM/dL (11.7-16.9); LYMPH % 12.9 % (8-40); MCHC 33.2 g/dl (32.0-35.9); MEAN CELL VOLUME 93.6 fl (80-96); MEAN PLT VOLUME 9.2 fl (7.5-11.1); MONO % 10.6 % (3.8-10.2); NEUT % 68.4 % (42.8-82.8); PLATELET COUNT 189 K/MM3 (134-434); RBC 3.63 M/mm3 (4.00-5.60); RDW 16.6 % (11.9-15.9); WHITE BLOOD COUNT 8.4 K/mm3 (4.0-10.0)
[2017-12-17] MEDS: CALCIUM ACETATE 667 MG CAPSULE (FP) PO SCH ×3 (08:41→17:20)
[2017-12-17 09:17] LABS: ANION GAP 11 MMOL/L (8-16); BLOOD UREA NITROGEN 35 mg/dL (7-18); CALCIUM 8.3 mg/dL (8.5-10.1); CHLORIDE 102 mmol/L (98-107); CO2 25 mmol/L (21-32); CREATININE 6.8 mg/dL (0.55-1.3); GLUCOSE,RANDOM 121 mg/dL (74-106); MAGNESIUM 2.3 mg/dL (1.8-2.4); PHOSPHOROUS 5.2 mg/dL (2.5-4.9); POTASSIUM 5.3 mmol/L (3.5-5.1); SODIUM 137 mmol/L (136-145)
[2017-12-17] MEDS: COLLAGENASE CLOSTRIDIUM HIST. 30 GRAMS TUBE TP SCH (10:00)
[2017-12-17] MEDS: PANTOPRAZOLE 20 MG TABLET (FP) PO SCH (10:17)
[2017-12-17] MEDS: CARVEDILOL 6.25 MG TABLET (FP) PO SCH ×2 (10:17→21:54)
[2017-12-17] MEDS: PANTOPRAZOLE 40 MG TABLET (FP) PO SCH (10:17)
[2017-12-17] MEDS: CHOLECALCIFEROL (VITAMIN D3) 1,000 UNIT TABLET (FP) PO SCH (10:17)
[2017-12-17] MEDS: PREGABALIN 100 MG CAPSULE PO SCH (10:18)
[2017-12-17] MEDS: ASPIRIN 81 MG CHEWABLE TABLETS PO SCH (10:18)
[2017-12-17] MEDS ORDERED: INSULIN (NOVOLOG) ASPART 100 UNITS/ML 10ML VIAL ONE (11:11)
[2017-12-17] MEDS: POLYETHYLENE GLYCOL 3350 119 GM BTL PO SCH (13:54)
[2017-12-17] MEDS ORDERED: SODIUM POLYSTYRENE SULFONATE 15 GM/60 ML BOTTLE PO ONE (14:16)
--- NOTE | 2017-12-17 14:19 | PN ---
Physical Exam: SUBJECTIVE: Patient seen and examined, reports constipation, leg symptoms improved, pain under control. OBJECTIVE: Vital Signs Period Temp Pulse Resp BP Sys/Leon Pulse Ox Last 24 Hr 97.9 F-98.2 F 72-77 20-20 100-124/57-68 96 GENERAL: The patient is awake, alert, and fully oriented, in no acute distress. chest: cTAB, no rales or wheezing Abdomen:soft, obese,NT Extremities: right thigh erythema almost resolved, Right 2nd toe dressing, unchanged chronic LE changes with edema Laboratory Results - last 24 hr 12/16/17 12/16/17 12/16/17 08:45 08:45 16:36 WBC RBC Hgb Hct MCV MCH MCHC RDW Plt Count MPV Absolute Neuts (auto) Neutrophils % Lymphocytes % Monocytes % Eosinophils % Basophils % Nucleated RBC % Sodium Potassium Chloride Carbon Dioxide Anion Gap BUN Creatinine Creat Clearance w eGFR POC Glucometer 264 Random Glucose Calcium Phosphorus Magnesium Hepatitis A Ab Total Negative Hep Bs Antigen Negative Hep Bs Antibody Non reactive Hep B Core Total Ab Negative Hep C Ab Diagnostic 0.1 Liver Fibrosis Interp 12/16/17 12/17/17 12/17/17 22:08 06:28 07:03 WBC 8.4 RBC 3.63 L Hgb 11.3 L Hct 34.0 L MCV 93.6 MCH 31.0 MCHC 33.2 RDW 16.6 H Plt Count 189 MPV 9.2 Absolute Neuts (auto) 5.8 Neutrophils % 68.4 Lymphocytes % 12.9 Monocytes % 10.6 H Eosinophils % 6.8 H Basophils % 1.3 Nucleated RBC % 0 Sodium Potassium Chloride Carbon Dioxide Anion Gap BUN Creatinine Creat Clearance w eGFR POC Glucometer 211 143 Random Glucose Calcium Phosphorus Magnesium Hepatitis A Ab Total Hep Bs Antigen Hep Bs Antibody Hep B Core Total Ab Hep C Ab Diagnostic Liver Fibrosis Interp 12/17/17 12/17/17 07:03 11:05 WBC RBC Hgb Hct MCV MCH MCHC RDW Plt Count MPV Absolute Neuts (auto) Neutrophils % Lymphocytes % Monocytes % Eosinophils % Basophils % Nucleated RBC % Sodium 137 Potassium 5.3 H Chloride 102 Carbon Dioxide 25 Anion Gap 11 BUN 35 H Creatinine 6.8 H Creat Clearance w eGFR 8.43 POC Glucometer 224 Random Glucose 121 H Calcium 8.3 L Phosphorus 5.2 H Magnesium 2.3 Hepatitis A Ab Total Hep Bs Antigen Hep Bs Antibody Hep B Core Total Ab Hep C Ab Diagnostic Liver Fibrosis Interp Active Medications Generic Name Dose Route Start Last Admin Trade Name Jesusq PRN Reason Stop Dose Admin Albuterol Sulfate 2 puff 12/15/17 06:46 Ventolin Hfa Inhaler - IH Q4H PRN SHORTNESS OF BREATH Aspirin 81 mg 12/15/17 10:00 12/17/17 10:18 Asa - PO 81 mg DAILY [facility] Administration Atorvastatin Calcium 80 mg 12/14/17 22:00 12/16/17 22:11 Lipitor - PO 80 mg HS [facility] Administration Calcium Acetate 1,334 mg 12/15/17 08:00 12/17/17 11:27 Phoslo - PO 1,334 mg TIDCM [facility] Administration Carvedilol 6.25 mg 12/14/17 22:00 12/17/17 10:17 Coreg - PO 6.25 mg BID [facility] Administration Cholecalciferol 2,000 unit 12/15/17 10:00 12/17/17 10:17 Vitamin D3 - PO 2,000 unit DAILY [facility] Administration Collagenase 1 applic 12/16/17 10:00 12/16/17 13:43 Santyl - TP 1 applic DAILY [facility] Administration Protocol Docusate Sodium 300 mg 12/14/17 22:00 Colace - PO HS PRN CONSTIPATION Heparin Sodium (Porcine) 5,000 unit 12/14/17 18:00 12/17/17 10:18 Heparin - SQ 5,000 unit Q8H-IV [facility] Administration Piperacillin Sod/Tazobactam 50 mls @ 100 mls/hr 12/16/17 10:00 12/17/17 10:20 Sod 2.25 gm/ Dextrose IVPB 100 mls/hr Q8H-IV [facility] Administration Protocol Insulin Aspart 1 vial 12/14/17 22:00 12/17/17 11:17 Novolog Vial Sliding Scale - SQ 2 units ACHS [facility] Administration Protocol Pantoprazole Sodium 40 mg 12/15/17 10:00 12/17/17 10:17 Protonix - PO 40 mg DAILY [facility] Administration Pantoprazole Sodium 20 mg 12/15/17 10:00 12/17/17 10:17 Protonix - PO 20 mg DAILY [facility] Administration Polyethylene Glycol 17 gm 12/15/17 10:00 12/17/17 13:54 Miralax (For Daily Use) - PO Not Given DAILY [facility] Pregabalin 100 mg 12/15/17 10:00 12/17/17 10:18 Lyrica - PO 100 mg DAILY [facility] Administration Sodium Polystyrene Sulfonate 30 gm 12/17/17 14:16 Kayexalate - PO 12/17/17 14:17 ONCE ONE Microbiology 12/14/17 12:45 Blood - Peripheral Venous Blood Culture - Preliminary NO GROWTH OBTAINED AFTER 72 HOURS, INCUBATION TO CONTINUE FOR 2 DAYS. 12/14/17 12:45 Blood - Peripheral Venous Blood Culture - Preliminary NO GROWTH OBTAINED AFTER 72 HOURS, INCUBATION TO CONTINUE FOR 2 DAYS. ASSESSMENT/PLAN: 57 yom with pMHx of admitted with RLE cellulitis -RLE cellulitis, r/o 2nd toe OM, PAD -ESRD on HD -NIDDM -HTN -H/o Right TMA (Wound with ESBL/MRSA) -COPD -[facility] on CPAP Plan: ZOsyn/vanco renal dosing. s/p right 2nd toe debridement 12/16, follow up cx. Vascular surgery input noted. MRI RLE, ALEJANDRA/PVR follow up. Duplex neg for DVT. Foot xray noted.. Renal consult for HD. Kayexalate x 1 now Hold januvia. ISS, diabetic diet Hold home torsemide for now. Continue ASA/coreg/statin/Albuterol DVTPPX heparin Dispo pending clinical improvement. Plan discussed with patient and nursing in detail, all questions answered. Visit type - Emergency Visit Emergency Visit: Yes ED Registration Date: 12/14/17 Care time: The patient presented to the Emergency Department on the above date and was hospitalized for further evaluation of their emergent condition. - New Patient This patient is new to me today: No - Critical Care Critical Care patient: No - Discharge Referral Referred to [facility] Med P.C.: No
[2017-12-17] MEDS ORDERED: VANCOMYCIN 1,000 MG in DEXTROSE 5%-WATER - 250 ML IVPB ONE (14:31)
--- NOTE | 2017-12-17 14:31 | PN ---
Progress Note, Physician History of Present Illness: No c/o pain Afebrile BC (-) WBC 8.4 - Current Medication List Current Medications: Active Medications Albuterol Sulfate (Ventolin Hfa Inhaler -) 2 puff IH Q4H PRN PRN Reason: SHORTNESS OF BREATH Aspirin (Asa -) 81 mg PO DAILY [facility] Last Admin: 12/17/17 10:18 Dose: 81 mg Atorvastatin Calcium (Lipitor -) 80 mg PO HS [facility] Last Admin: 12/16/17 22:11 Dose: 80 mg Calcium Acetate (Phoslo -) 1,334 mg PO TIDCM [facility] Last Admin: 12/17/17 11:27 Dose: 1,334 mg Carvedilol (Coreg -) 6.25 mg PO BID [facility] Last Admin: 12/17/17 10:17 Dose: 6.25 mg Cholecalciferol (Vitamin D3 -) 2,000 unit PO DAILY [facility] Last Admin: 12/17/17 10:17 Dose: 2,000 unit Collagenase (Santyl -) 1 applic TP DAILY [facility]; Protocol Last Admin: 12/16/17 13:43 Dose: 1 applic Docusate Sodium (Colace -) 300 mg PO HS PRN PRN Reason: CONSTIPATION Heparin Sodium (Porcine) (Heparin -) 5,000 unit SQ Q8H-IV [facility] Last Admin: 12/17/17 10:18 Dose: 5,000 unit Piperacillin Sod/Tazobactam (Sod 2.25 gm/ Dextrose) 50 mls @ 100 mls/hr IVPB Q8H-IV [facility]; Protocol Last Admin: 12/17/17 10:20 Dose: 100 mls/hr Insulin Aspart (Novolog Vial Sliding Scale -) 1 vial SQ ACHS [facility]; Protocol Last Admin: 12/17/17 11:17 Dose: 2 units Pantoprazole Sodium (Protonix -) 40 mg PO DAILY [facility] Last Admin: 12/17/17 10:17 Dose: 40 mg Pantoprazole Sodium (Protonix -) 20 mg PO DAILY [facility] Last Admin: 12/17/17 10:17 Dose: 20 mg Polyethylene Glycol (Miralax (For Daily Use) -) 17 gm PO DAILY [facility] Last Admin: 12/17/17 13:54 Dose: Not Given Pregabalin (Lyrica -) 100 mg PO DAILY [facility] Last Admin: 10/14/18 10:18 Dose: 100 mg Sodium Polystyrene Sulfonate (Kayexalate -) 30 gm PO ONCE ONE Stop: 12/17/17 14:17 - Objective Vital Signs: Vital Signs Temperature 98.2 F 12/17/17 10:00 Pulse Rate 72 12/17/17 10:00 Respiratory Rate 20 12/17/17 10:00 Blood Pressure 100/57 L 12/17/17 10:00 O2 Sat by Pulse Oximetry (%) 96 12/17/17 09:00 Constitutional: Yes: No Distress Eyes: Yes: Conjunctiva Clear Cardiovascular: Yes: Regular Rate and Rhythm, S1, S2 Respiratory: Yes: CTA Bilaterally Gastrointestinal: Yes: Normal Bowel Sounds, Soft, Abdomen, Obese. No: Tenderness Extremities: Yes: Other (no erythema R thigh R 2nd toe erythematous/ swollen + ulcer) Labs: CBC, BMP 12/17/17 07:03 12/17/17 07:03 INR, PTT INR 1.12 (0.83-1.09) H 12/14/17 13:25 Assessment/Plan Cellulitis R LE ? osteomyelitis R 2nd toe ESRD Continue zosyn Redose vancomycin Local wound care
[2017-12-17] MEDS ORDERED: VANCOMYCIN 1 GRAM (PRE-DOCKED) 1,000 MG/250 ML BAG IVPB ONE (15:03)
[2017-12-17] MEDS: ATORVASTATIN CA 80 MG TABLET (FP) PO SCH (21:54)
[2017-12-18] MEDS ORDERED: PIPERACILLIN/TAZOBACTAM 2.25 GM VIAL IVPB ONE ×3 (02:34→17:08)
[2017-12-18] MEDS ORDERED: DEXTROSE 5%-WATER - 50 ML IVPB ONE ×3 (02:34→17:08)
[2017-12-18] MEDS: HEPARIN NA (PORCINE) 5,000 UNITS/ML 1ML VIAL SQ SCH ×3 (02:38→17:33)
[2017-12-18] MEDS: PIPERACILLIN/TAZOB 2.25 GM 2.25 GM in DEXTROSE 5%-WATER - 50 ML IVPB SCH ×3 (02:38→17:33)
[2017-12-18] MEDS: INSULIN SLIDING SCALE (NOVOLOG) 1 VIAL SQ SCH ×4 (06:42→22:02)
[2017-12-18 07:31] LABS: BASO % 1.4 % (0-2.0); EOS % 5.7 % (0-4.5); HEMATOCRIT 32.7 % (35.4-49); HEMOGLOBIN 10.7 GM/dL (11.7-16.9); LYMPH % 11.6 % (8-40); MCH 30.6 pg (25.7-33.7); MCHC 32.8 g/dl (32.0-35.9); MEAN CELL VOLUME 93.3 fl (80-96); MEAN PLT VOLUME 9.3 fl (7.5-11.1); MONO % 10.1 % (3.8-10.2); NEUT % 71.2 % (42.8-82.8); PLATELET COUNT 211 K/MM3 (134-434); RDW 16.9 % (11.9-15.9); WHITE BLOOD COUNT 9.2 K/mm3 (4.0-10.0)
[2017-12-18 07:55] LABS: ANION GAP 10 MMOL/L (8-16); BLOOD UREA NITROGEN 46 mg/dL (7-18); CALCIUM 8.2 mg/dL (8.5-10.1); CHLORIDE 98 mmol/L (98-107); CO2 29 mmol/L (21-32); GLUCOSE,RANDOM 147 mg/dL (74-106); MAGNESIUM 2.3 mg/dL (1.8-2.4); PHOSPHOROUS 6.5 mg/dL (2.5-4.9); POTASSIUM 4.4 mmol/L (3.5-5.1); SODIUM 136 mmol/L (136-145)
[2017-12-18 07:57] LABS: CREATININE 8.3 mg/dL (0.55-1.3)
--- NOTE | 2017-12-18 08:52 | PN ---
Teaching Attending Note Name of Resident: Barbara Nuñez ATTENDING PHYSICIAN STATEMENT I saw and evaluated the patient. I reviewed the resident's note and discussed the case with the resident. I agree with the resident's findings and plan as documented with exceptions below SUBJECTIVE: Patient seen and examined. no new complaints. OBJECTIVE: Vital Signs Period Temp Pulse Resp BP Sys/Leon Pulse Ox Last 24 Hr 98.0 F-98.6 F 70-85 20-20 100-141/57-74 96-96 Intake & Output 12/15/17 12/16/17 12/17/17 12/18/17 23:59 23:59 23:59 23:59 Intake Total 975 1055 1390 50 Output Total 500 250 Balance 099 620 2110 50 Weight 364 lb 4 oz 364 lb 2 oz 364 lb 6 oz 360 lb 9.6 oz General; sitting in bed in no acute distress Extremities: almost resolved right thigh cellulitis, LE chronic findings, right 2nd toe with ulceration,worsening surrouding swelling with fluctuation and erythema, no active discharge noted, 1+ DP pulses Active Medications Albuterol Sulfate (Ventolin Hfa Inhaler -) 2 puff IH Q4H PRN PRN Reason: SHORTNESS OF BREATH Aspirin (Asa -) 81 mg PO DAILY [facility] Last Admin: 12/17/17 10:18 Dose: 81 mg Atorvastatin Calcium (Lipitor -) 80 mg PO HS [facility] Last Admin: 12/17/17 21:54 Dose: 80 mg Calcium Acetate (Phoslo -) 1,334 mg PO TIDCM [facility] Last Admin: 12/17/17 17:20 Dose: 1,334 mg Carvedilol (Coreg -) 6.25 mg PO BID [facility] Last Admin: 12/17/17 21:54 Dose: 6.25 mg Cholecalciferol (Vitamin D3 -) 2,000 unit PO DAILY [facility] Last Admin: 12/17/17 10:17 Dose: 2,000 unit Collagenase (Santyl -) 1 applic TP DAILY [facility]; Protocol Last Admin: 12/17/17 10:00 Dose: 1 applic Docusate Sodium (Colace -) 300 mg PO HS PRN PRN Reason: CONSTIPATION Heparin Sodium (Porcine) (Heparin -) 5,000 unit SQ Q8H-IV [facility] Last Admin: 12/18/17 02:38 Dose: 5,000 unit Piperacillin Sod/Tazobactam (Sod 2.25 gm/ Dextrose) 50 mls @ 100 mls/hr IVPB Q8H-IV [facility]; Protocol Last Admin: 12/18/17 02:38 Dose: 100 mls/hr Insulin Aspart (Novolog Vial Sliding Scale -) 1 vial SQ ACHS [facility]; Protocol Last Admin: 12/18/17 06:42 Dose: Not Given Pantoprazole Sodium (Protonix -) 40 mg PO DAILY [facility] Last Admin: 12/17/17 10:17 Dose: 40 mg Pantoprazole Sodium (Protonix -) 20 mg PO DAILY [facility] Last Admin: 12/17/17 10:17 Dose: 20 mg Polyethylene Glycol (Miralax (For Daily Use) -) 17 gm PO DAILY [facility] Last Admin: 12/17/17 13:54 Dose: Not Given Pregabalin (Lyrica -) 100 mg PO DAILY [facility] Last Admin: 12/17/17 10:18 Dose: 100 mg Laboratory Results - last 24 hr 12/17/17 12/17/17 12/17/17 07:03 11:05 16:23 WBC RBC Hgb Hct MCV MCH MCHC RDW Plt Count MPV Absolute Neuts (auto) Neutrophils % Lymphocytes % Monocytes % Eosinophils % Basophils % Nucleated RBC % Sodium 137 Potassium 5.3 H Chloride 102 Carbon Dioxide 25 Anion Gap 11 BUN 35 H Creatinine 6.8 H Creat Clearance w eGFR 8.43 POC Glucometer 224 213 Random Glucose 121 H Calcium 8.3 L Phosphorus 5.2 H Magnesium 2.3 Random Vancomycin 12/17/17 12/18/17 12/18/17 21:54 06:00 06:41 WBC RBC Hgb Hct MCV MCH MCHC RDW Plt Count MPV Absolute Neuts (auto) Neutrophils % Lymphocytes % Monocytes % Eosinophils % Basophils % Nucleated RBC % Sodium Potassium Chloride Carbon Dioxide Anion Gap BUN Creatinine Creat Clearance w eGFR POC Glucometer 164 135 Random Glucose Calcium Phosphorus Magnesium Random Vancomycin 17.1 L 12/18/17 12/18/17 06:45 06:45 WBC 9.2 RBC 3.50 L Hgb 10.7 L Hct 32.7 L MCV 93.3 MCH 30.6 MCHC 32.8 RDW 16.9 H Plt Count 211 MPV 9.3 Absolute Neuts (auto) 6.5 Neutrophils % 71.2 Lymphocytes % 11.6 Monocytes % 10.1 Eosinophils % 5.7 H Basophils % 1.4 Nucleated RBC % 0 Sodium 136 Potassium 4.4 Chloride 98 Carbon Dioxide 29 Anion Gap 10 BUN 46 H Creatinine 8.3 H* Creat Clearance w eGFR 6.70 POC Glucometer Random Glucose 147 H Calcium 8.2 L Phosphorus 6.5 H Magnesium 2.3 Random Vancomycin Microbiology 12/14/17 12:45 Blood - Peripheral Venous Blood Culture - Preliminary NO GROWTH OBTAINED AFTER 72 HOURS, INCUBATION TO CONTINUE FOR 2 DAYS. 12/14/17 12:45 Blood - Peripheral Venous Blood Culture - Preliminary NO GROWTH OBTAINED AFTER 72 HOURS, INCUBATION TO CONTINUE FOR 2 DAYS. ASSESSMENT AND PLAN: 57 yom with pMHx of admitted with RLE cellulitis -RLE cellulitis, r/o 2nd toe OM, PAD -ESRD on HD -NIDDM -HTN -H/o Right TMA (Wound with ESBL/MRSA) -COPD -HOLLY on CPAP Plan: ZOsyn/vanco renal dosing. s/p right 2nd toe debridement 12/16, cx noted. Unable to get MRI. Get bone scan. Vascular surgery input noted. ALEJANDRA/PVR Duplex neg for DVT. Foot xray noted.. Renal consult for HD. s/p kayexalate 12/17 Hold januvia. ISS, diabetic diet Hold home torsemide for now. Continue ASA/coreg/statin/Albuterol DVTPPX heparin Dispo pending clinical improvement. Plan discussed with patient and nursing in detail, all questions answered.
[2017-12-18] MEDS: CALCIUM ACETATE 667 MG CAPSULE (FP) PO SCH ×3 (09:35→17:33)
[2017-12-18] MEDS: CHOLECALCIFEROL (VITAMIN D3) 1,000 UNIT TABLET (FP) PO SCH (09:35)
[2017-12-18] MEDS: PANTOPRAZOLE 20 MG TABLET (FP) PO SCH (09:35)
[2017-12-18] MEDS: ASPIRIN 81 MG CHEWABLE TABLETS PO SCH (09:36)
[2017-12-18] MEDS: CARVEDILOL 6.25 MG TABLET (FP) PO SCH ×2 (09:36→22:02)
[2017-12-18] MEDS: PREGABALIN 100 MG CAPSULE PO SCH (09:36)
[2017-12-18] MEDS: POLYETHYLENE GLYCOL 3350 119 GM BTL PO SCH (10:20)
[2017-12-18] MEDS: PANTOPRAZOLE 40 MG TABLET (FP) PO SCH (10:20)
--- NOTE | 2017-12-18 11:10 | PN ---
Progress Note (short form) - Note Progress Note: no complaints Vital Signs Period Temp Pulse Resp BP Sys/Leon Pulse Ox Last 24 Hr 98.0 F-98.6 F 70-85 20-20 125-141/63-74 96 cor-rrr llungs clear right leg- minimal erythema thigh, nontender second toe remains discolored with serous drainage CBC, BMP 12/18/17 06:45 12/18/17 06:45 Laboratory Tests 12/15/17 12/15/17 06:23 06:23 ESR 71 H C-Reactive Protein 9.1 H Microbiology 12/14/17 12:45 Blood - Peripheral Venous Blood Culture - Preliminary NO GROWTH OBTAINED AFTER 72 HOURS, INCUBATION TO CONTINUE FOR 2 DAYS. 12/14/17 12:45 Blood - Peripheral Venous Blood Culture - Preliminary NO GROWTH OBTAINED AFTER 72 HOURS, INCUBATION TO CONTINUE FOR 2 DAYS. xray no bony changes a/p cellulitis resolving r/o osteo second toe vs ischemia continue vascular workkup too heavy for MRI will get bone scan continue vanco by levels continue zosyn Problem List - Problems (1) Cellulitis Code(s): L03.90 - CELLULITIS, UNSPECIFIED (2) Right second toe ulcer Code(s): L97.519 - NON-PRS CHRONIC ULCER OTH PRT RIGHT FOOT W UNSP SEVERITY (3) Diabetes mellitus Code(s): E11.9 - TYPE 2 DIABETES MELLITUS WITHOUT COMPLICATIONS Qualifiers: Diabetes mellitus type: type 2 (4) MDRO (multiple drug resistant organisms) resistance Code(s): Z16.35 - RESISTANCE TO MULTIPLE ANTIMICROBIAL DRUGS
[2017-12-18] MEDS ORDERED: INSULIN (NOVOLOG) ASPART 100 UNITS/ML 10ML VIAL ONE (11:35)
--- NOTE | 2017-12-18 11:42 | PN ---
Progress Note, Physician History of Present Illness: Pt seen and examined at bedside. he denies fever or chills. he denies shortness of breath. - Current Medication List Current Medications: Active Medications Albuterol Sulfate (Ventolin Hfa Inhaler -) 2 puff IH Q4H PRN PRN Reason: SHORTNESS OF BREATH Aspirin (Asa -) 81 mg PO DAILY [facility] Last Admin: 12/18/17 09:36 Dose: 81 mg Atorvastatin Calcium (Lipitor -) 80 mg PO HS [facility] Last Admin: 12/17/17 21:54 Dose: 80 mg Calcium Acetate (Phoslo -) 1,334 mg PO TIDCM [facility] Last Admin: 12/18/17 09:35 Dose: 1,334 mg Carvedilol (Coreg -) 6.25 mg PO BID [facility] Last Admin: 12/18/17 09:36 Dose: 6.25 mg Cholecalciferol (Vitamin D3 -) 2,000 unit PO DAILY [facility] Last Admin: 12/18/17 09:35 Dose: 2,000 unit Collagenase (Santyl -) 1 applic TP DAILY [facility]; Protocol Last Admin: 12/17/17 10:00 Dose: 1 applic Docusate Sodium (Colace -) 300 mg PO HS PRN PRN Reason: CONSTIPATION Heparin Sodium (Porcine) (Heparin -) 5,000 unit SQ Q8H-IV [facility] Last Admin: 12/18/17 09:36 Dose: 5,000 unit Piperacillin Sod/Tazobactam (Sod 2.25 gm/ Dextrose) 50 mls @ 100 mls/hr IVPB Q8H-IV [facility]; Protocol Last Admin: 12/18/17 09:30 Dose: 100 mls/hr Insulin Aspart (Novolog Vial Sliding Scale -) 1 vial SQ ACHS [facility]; Protocol Last Admin: 12/18/17 06:42 Dose: Not Given Pantoprazole Sodium (Protonix -) 40 mg PO DAILY [facility] Last Admin: 12/18/17 10:20 Dose: Not Given Pantoprazole Sodium (Protonix -) 20 mg PO DAILY [facility] Last Admin: 12/18/17 09:35 Dose: 20 mg Polyethylene Glycol (Miralax (For Daily Use) -) 17 gm PO DAILY [facility] Last Admin: 12/18/17 10:20 Dose: Not Given Pregabalin (Lyrica -) 100 mg PO DAILY [facility] Last Admin: 12/18/17 09:36 Dose: 100 mg - Objective Vital Signs: Vital Signs Temperature 98.0 F 12/18/17 05:30 Pulse Rate 85 12/18/17 05:30 Respiratory Rate 20 12/17/17 21:25 Blood Pressure 141/63 12/18/17 05:30 O2 Sat by Pulse Oximetry (%) 96 12/17/17 21:00 Constitutional: Yes: Calm Eyes: Yes: Conjunctiva Clear HENT: Yes: Atraumatic Cardiovascular: Yes: S1, S2 Respiratory: Yes: CTA Bilaterally Gastrointestinal: Yes: Soft, Abdomen, Obese Genitourinary: Yes: WNL Edema: Yes Wound/Incision: Yes: Dressing Dry and Intact Labs: CBC, BMP 12/18/17 06:45 12/18/17 06:45 INR, PTT INR 1.12 (0.83-1.09) H 12/14/17 13:25 Problem List - Problems (1) Cellulitis Code(s): L03.90 - CELLULITIS, UNSPECIFIED (2) Diabetes mellitus Code(s): E11.9 - TYPE 2 DIABETES MELLITUS WITHOUT COMPLICATIONS Qualifiers: Diabetes mellitus type: type 2 (3) ESRD (end stage renal disease) Code(s): N18.6 - END STAGE RENAL DISEASE (4) HLD (hyperlipidemia) Code(s): E78.5 - HYPERLIPIDEMIA, UNSPECIFIED (5) HTN (hypertension) Code(s): I10 - ESSENTIAL (PRIMARY) HYPERTENSION (6) Lymph edema Code(s): I89.0 - LYMPHEDEMA, NOT ELSEWHERE CLASSIFIED (7) Morbid obesity Code(s): E66.01 - MORBID (SEVERE) OBESITY DUE TO EXCESS CALORIES Assessment/Plan Current Medications Generic Name Dose Route Start Last Admin Trade Name Freq PRN Reason Stop Dose Admin Albuterol Sulfate 2 puff 12/15/17 06:46 Ventolin Hfa Inhaler - IH Q4H PRN SHORTNESS OF BREATH Aspirin 81 mg 12/15/17 10:00 12/18/17 09:36 Asa - PO 81 mg DAILY [facility] Administration Atorvastatin Calcium 80 mg 12/14/17 22:00 12/17/17 21:54 Lipitor - PO 80 mg HS [facility] Administration Calcium Acetate 1,334 mg 12/15/17 08:00 12/18/17 11:41 Phoslo - PO 1,334 mg TIDCM [facility] Administration Carvedilol 6.25 mg 12/14/17 22:00 12/18/17 09:36 Coreg - PO 6.25 mg BID [facility] Administration Cholecalciferol 2,000 unit 12/15/17 10:00 12/18/17 09:35 Vitamin D3 - PO 2,000 unit DAILY [facility] Administration Collagenase 1 applic 12/16/17 10:00 12/17/17 10:00 Santyl - TP 1 applic DAILY [facility] Administration Protocol Docusate Sodium 300 mg 12/14/17 22:00 Colace - PO HS PRN CONSTIPATION Heparin Sodium (Porcine) 5,000 unit 12/14/17 18:00 12/18/17 09:36 Heparin - SQ 5,000 unit Q8H-IV [facility] Administration Piperacillin Sod/Tazobactam 50 mls @ 100 mls/hr 12/16/17 10:00 12/18/17 09:30 Sod 2.25 gm/ Dextrose IVPB 100 mls/hr Q8H-IV [facility] Administration Protocol Insulin Aspart 1 vial 12/14/17 22:00 12/18/17 11:40 Novolog Vial Sliding Scale - SQ 2 units ACHS [facility] Administration Protocol Pantoprazole Sodium 40 mg 12/15/17 10:00 12/18/17 10:20 Protonix - PO Not Given DAILY [facility] Pantoprazole Sodium 20 mg 12/15/17 10:00 12/18/17 09:35 Protonix - PO 20 mg DAILY [facility] Administration Polyethylene Glycol 17 gm 12/15/17 10:00 12/18/17 10:20 Miralax (For Daily Use) - PO Not Given DAILY [facility] Pregabalin 100 mg 12/15/17 10:00 12/18/17 09:36 Lyrica - PO 100 mg DAILY [facility] Administration Impression 1. ESRD 2. anemia 3. HTN 4. morbid obesity 5. CVA 6. hyperlipidemia 7. proteinuria - nephrotic 8. PVD 9. foot ulcer Plan - next HD tomorrow - cont wound care - epogen for anemia - abx per ID - will follow Dr Win
[2017-12-18] MEDS: COLLAGENASE CLOSTRIDIUM HIST. 30 GRAMS TUBE TP SCH (12:00)
--- NOTE | 2017-12-18 15:53 | PN ---
Progress Note (short form) - Note Progress Note: Vascular Surgery: Pt states that he is having chills now, overall his right leg feels better. Vital Signs Period Temp Pulse Resp BP Sys/Leon Pulse Ox Last 24 Hr 98.0 F-98.6 F 70-85 18-20 130-162/63-84 96 GEN: Appears comfortable Right lend toe appears macerated with drainage. 2nd/3 and 4th toe at the base appears erythematous. Not tender to touch. No tenderess to the right lower leg. CBC, BMP 12/18/17 06:45 12/18/17 06:45 Microbiology 12/14/17 12:45 Blood - Peripheral Venous Blood Culture - Preliminary NO GROWTH OBTAINED AFTER 96 HOURS, INCUBATION TO CONTINUE FOR 1 DAYS. 12/14/17 12:45 Blood - Peripheral Venous Blood Culture - Preliminary NO GROWTH OBTAINED AFTER 96 HOURS, INCUBATION TO CONTINUE FOR 1 DAYS. Problem List - Problems (1) Cellulitis Assessment/Plan: Pt with right 2nd toe infection with callous(debrided at bedside by podiatry) 3/ 4 th toe infection/erythema. Contniue IV abx as per ID Called and PVRs to be completed tomorrow Local wound care with gauze inbetween toe/kerlix Code(s): L03.90 - CELLULITIS, UNSPECIFIED
--- NOTE | 2017-12-18 17:21 | PN ---
Physical Exam: SUBJECTIVE: Patient seen and examined at bedside this morning. No acute events overnight. Patient has no new complaints. OBJECTIVE: Vital Signs Period Temp Pulse Resp BP Sys/Leon Pulse Ox Last 24 Hr 98.0 F-98.6 F 70-85 18-20 130-162/63-84 96 GENERAL: Awake, alert, and fully oriented, in no acute distress. HEAD: Normal with no signs of trauma. EYES: PERRLA, EOMI, sclera anicteric, conjunctiva clear. EARS, NOSE, THROAT: Ears normal, nares patent, oropharynx clear without exudates. Moist mucous membranes. NECK: Normal range of motion, supple without lymphadenopathy, JVD, or masses. LUNGS: Breath sounds equal, clear to auscultation bilaterally. HEART: Regular rate and rhythm, normal S1 and S2 without murmur, rub or gallop. ABDOMEN: Soft, nontender, not distended, normoactive bowel sounds. MUSCULOSKELETAL: Normal range of motion at all joints. No bony deformities or tenderness. No CVA tenderness. UPPER EXTREMITIES: 2+ pulses, warm, well-perfused. No cyanosis. No clubbing. No peripheral edema. LOWER EXTREMITIES: BLE: +erythema, +tenderness on palpation of anterior [place], + warmth, +scaling with yellowish discoloration that extends from knees to foot. Right 2nd toe bandaged. Pulses palpable. NEUROLOGICAL: Cranial nerves II-XII intact. Normal speech. Normal gait. PSYCHIATRIC: Cooperative. Good eye contact. Appropriate mood and affect. SKIN: Warm, dry, normal turgor, no rashes or lesions noted, normal capillary refill. Laboratory Results - last 24 hr 12/17/17 12/18/17 12/18/17 21:54 06:00 06:41 WBC RBC Hgb Hct MCV MCH MCHC RDW Plt Count MPV Absolute Neuts (auto) Neutrophils % Lymphocytes % Monocytes % Eosinophils % Basophils % Nucleated RBC % Sodium Potassium Chloride Carbon Dioxide Anion Gap BUN Creatinine Creat Clearance w eGFR POC Glucometer 164 135 Random Glucose Calcium Phosphorus Magnesium Random Vancomycin 17.1 L 12/18/17 12/18/17 12/18/17 06:45 06:45 11:33 WBC 9.2 RBC 3.50 L Hgb 10.7 L Hct 32.7 L MCV 93.3 MCH 30.6 MCHC 32.8 RDW 16.9 H Plt Count 211 MPV 9.3 Absolute Neuts (auto) 6.5 Neutrophils % 71.2 Lymphocytes % 11.6 Monocytes % 10.1 Eosinophils % 5.7 H Basophils % 1.4 Nucleated RBC % 0 Sodium 136 Potassium 4.4 Chloride 98 Carbon Dioxide 29 Anion Gap 10 BUN 46 H Creatinine 8.3 H* Creat Clearance w eGFR 6.70 POC Glucometer 201 Random Glucose 147 H Calcium 8.2 L Phosphorus 6.5 H Magnesium 2.3 Random Vancomycin 12/18/17 16:59 WBC RBC Hgb Hct MCV MCH MCHC RDW Plt Count MPV Absolute Neuts (auto) Neutrophils % Lymphocytes % Monocytes % Eosinophils % Basophils % Nucleated RBC % Sodium Potassium Chloride Carbon Dioxide Anion Gap BUN Creatinine Creat Clearance w eGFR POC Glucometer 171 Random Glucose Calcium Phosphorus Magnesium Random Vancomycin Active Medications Generic Name Dose Route Start Last Admin Trade Name Freq PRN Reason Stop Dose Admin Albuterol Sulfate 2 puff 12/15/17 06:46 Ventolin Hfa Inhaler - IH Q4H PRN SHORTNESS OF BREATH Aspirin 81 mg 12/15/17 10:00 12/18/17 09:36 Asa - PO 81 mg DAILY [facility] Administration Atorvastatin Calcium 80 mg 12/14/17 22:00 12/17/17 21:54 Lipitor - PO 80 mg HS [facility] Administration Calcium Acetate 1,334 mg 12/15/17 08:00 12/18/17 11:41 Phoslo - PO 1,334 mg TIDCM [facility] Administration Carvedilol 6.25 mg 12/14/17 22:00 12/18/17 09:36 Coreg - PO 6.25 mg BID [facility] Administration Cholecalciferol 2,000 unit 12/15/17 10:00 12/18/17 09:35 Vitamin D3 - PO 2,000 unit DAILY [facility] Administration Collagenase 1 applic 12/16/17 10:00 12/17/17 10:00 Santyl - TP 1 applic DAILY [facility] Administration Protocol Docusate Sodium 300 mg 12/14/17 22:00 Colace - PO HS PRN CONSTIPATION Epoetin [place] 5,000 unit 12/19/17 11:42 Epogen - IVPUSH 12/19/17 11:43 ONCE ONE Heparin Sodium (Porcine) 5,000 unit 12/14/17 18:00 12/18/17 09:36 Heparin - SQ 5,000 unit Q8H-IV [facility] Administration Heparin Sodium (Porcine) 1,000 unit 12/19/17 11:42 Heparin - IVPUSH 12/19/17 11:43 ONCE ONE Piperacillin Sod/Tazobactam 50 mls @ 100 mls/hr 12/16/17 10:00 12/18/17 09:30 Sod 2.25 gm/ Dextrose IVPB 100 mls/hr Q8H-IV [facility] Administration Protocol Sodium Chloride 250 mls @ 3,000 mls/hr 12/19/17 11:42 Normal Saline - IV 12/19/17 11:43 PRN PRN Hypotension during Dialysis Insulin Aspart 1 vial 12/14/17 22:00 12/18/17 11:40 Novolog Vial Sliding Scale - SQ 2 units ACHS [facility] Administration Protocol Pantoprazole Sodium 40 mg 12/15/17 10:00 12/18/17 10:20 Protonix - PO Not Given DAILY [facility] Pantoprazole Sodium 20 mg 12/15/17 10:00 12/18/17 09:35 Protonix - PO 20 mg DAILY [facility] Administration Polyethylene Glycol 17 gm 12/15/17 10:00 12/18/17 10:20 Miralax (For Daily Use) - PO Not Given DAILY [facility] Pregabalin 100 mg 12/15/17 10:00 12/18/17 09:36 Lyrica - PO 100 mg DAILY [facility] Administration ASSESSMENT/PLAN: Patient is a 57 year old male with past medical history of anemia, asthma, COPD , DM, HTN, ESRD (HD TTS), PVD, and CVA, presented with Right leg pain. #RLE cellulitis -Vanc/Zosyn given at the ED. Ertapenem 1gm once given. -Previous wound Cx - MRSA, ESBL, A. baumanii -Xray of the right foot -no fractures or bone destruction -Duplex US of b/l legs - no DVT -Podiatry (Dr. Alcantara) consulted.Recommendations appreciated. -s/p excisional debridement of right 2nd digit diabetic ulcer to subcutaneous tissue -Rx santyl for local wound care -For vascular work-up -MRI ordered to rule out osteomyelitis - can not be done as patient is overweight -Triphasic bone scan ordered. -Will try to watch progression of the toe clinically, hopefully will not need amputation. -ID (Dr. Giron) consulted. Recommendations appreciated. -Vancomycin 1gm given yesterday, dose adjusted -Vancomycin level today 17.1 -Zosyn 2.25g q8h started. -Vascular surgery (Dr. Sheets) consulted. Recommendations appreciated. -PVRs/ALEJANDRA ordered. -Continue HD via left UE fistula #ESRD on HD -On HD TTS -Neurology (Dr. Win) consulted. -For HD tomorrow. -Avoid nephrotoxic agents such as NSAIDs, aminoglycosides, or contrast #DM -hold Januvia -BGM ACHS -Implement insulin sliding scale #HTN -Continue Torsemide 80 mg daily, Coreg 6.25 BID #Hx of CVA -Continue ASA 81, Atorvastatin 80mg #HOLLY -on CPAP #COPD -Albuterol Inh PRN #FEN -Not on any standing fluids -Encourage increased oral fluid intake -Electrolytes wnl, routine bmp monitoring -diabetic/sodium diet #Prophylaxis -Heparin 5000units sq tid #Disposition -full code -admit to med-surg Visit type - Emergency Visit Emergency Visit: Yes ED Registration Date: 12/14/17 Care time: The patient presented to the Emergency Department on the above date and was hospitalized for further evaluation of their emergent condition. - New Patient This patient is new to me today: Yes Date on this admission: 12/18/17 - Critical Care Critical Care patient: No
[2017-12-18] MEDS: ATORVASTATIN CA 80 MG TABLET (FP) PO SCH (22:02)
[2017-12-19] MEDS ORDERED: PIPERACILLIN/TAZOBACTAM 2.25 GM VIAL IVPB ONE ×2 (03:02→14:26)
[2017-12-19] MEDS ORDERED: DEXTROSE 5%-WATER - 50 ML IVPB ONE ×2 (03:02→14:26)
[2017-12-19] MEDS: PIPERACILLIN/TAZOB 2.25 GM 2.25 GM in DEXTROSE 5%-WATER - 50 ML IVPB SCH ×3 (03:08→21:49)
[2017-12-19] MEDS: HEPARIN NA (PORCINE) 5,000 UNITS/ML 1ML VIAL SQ SCH ×3 (03:09→17:27)
[2017-12-19] MEDS: INSULIN SLIDING SCALE (NOVOLOG) 1 VIAL SQ SCH ×4 (06:08→22:08)
[2017-12-19] MEDS ORDERED: SODIUM CHLORIDE 250 ML IV PRN (07:06)
[2017-12-19] MEDS ORDERED: HEPARIN NA (PORCINE) 5,000 UNITS/ML 1ML VIAL IVPUSH ONE (07:15)
[2017-12-19] MEDS ORDERED: EPOETIN ALFA 3,000 UNIT/1 ML ML IVPUSH ONE (07:15)
[2017-12-19] MEDS: CALCIUM ACETATE 667 MG CAPSULE (FP) PO SCH ×3 (08:15→17:19)
[2017-12-19] MEDS ORDERED: MINERAL OIL/PETROLAT/WATER TOPICAL CREAM 113 GM JAR TP SCH (10:00)
[2017-12-19 10:16] LABS: HEMATOCRIT 32.4 % (35.4-49); HEMOGLOBIN 10.7 GM/dL (11.7-16.9); MCH 30.7 pg (25.7-33.7); MCHC 33.1 g/dl (32.0-35.9); MEAN CELL VOLUME 92.9 fl (80-96); MEAN PLT VOLUME 9.5 fl (7.5-11.1); PLATELET COUNT 236 K/MM3 (134-434); RBC 3.49 M/mm3 (4.00-5.60); RDW 16.2 % (11.9-15.9); WHITE BLOOD COUNT 10.9 K/mm3 (4.0-10.0)
[2017-12-19 11:06] LABS: ANION GAP 16 MMOL/L (8-16); BLOOD UREA NITROGEN 53 mg/dL (7-18); CALCIUM 8.4 mg/dL (8.5-10.1); CHLORIDE 98 mmol/L (98-107); CO2 21 mmol/L (21-32); GLUCOSE,RANDOM 268 mg/dL (74-106); POTASSIUM 4.4 mmol/L (3.5-5.1); SODIUM 134 mmol/L (136-145)
[2017-12-19 11:12] LABS: CREATININE 9.7 mg/dL (0.55-1.3)
--- NOTE | 2017-12-19 12:14 | PN ---
Progress Note, Physician History of Present Illness: Pt seen and examined at bedside. He is awake and alert. He complains of loose stools. - Current Medication List Current Medications: Active Medications Albuterol Sulfate (Ventolin Hfa Inhaler -) 2 puff IH Q4H PRN PRN Reason: SHORTNESS OF BREATH Aspirin (Asa -) 81 mg PO DAILY [facility] Last Admin: 12/18/17 09:36 Dose: 81 mg Atorvastatin Calcium (Lipitor -) 80 mg PO HS [facility] Last Admin: 12/18/17 22:02 Dose: 80 mg Calcium Acetate (Phoslo -) 1,334 mg PO TIDCM [facility] Last Admin: 12/19/17 08:15 Dose: 1,334 mg Carvedilol (Coreg -) 6.25 mg PO BID [facility] Last Admin: 12/18/17 22:02 Dose: 6.25 mg Cholecalciferol (Vitamin D3 -) 2,000 unit PO DAILY [facility] Last Admin: 12/18/17 09:35 Dose: 2,000 unit Collagenase (Santyl -) 1 applic TP DAILY [facility]; Protocol Last Admin: 12/18/17 12:00 Dose: 1 applic Docusate Sodium (Colace -) 300 mg PO HS PRN PRN Reason: CONSTIPATION Heparin Sodium (Porcine) (Heparin -) 5,000 unit SQ Q8H-IV [facility] Last Admin: 12/19/17 03:09 Dose: 5,000 unit Piperacillin Sod/Tazobactam (Sod 2.25 gm/ Dextrose) 50 mls @ 100 mls/hr IVPB Q8H-IV [facility]; Protocol Last Admin: 12/19/17 03:08 Dose: 100 mls/hr Insulin Aspart (Novolog Vial Sliding Scale -) 1 vial SQ ACHS [facility]; Protocol Last Admin: 12/19/17 06:08 Dose: Not Given Lactobacillus Acidophilus (Bacid -) 1 tab PO DAILY [facility] Pantoprazole Sodium (Protonix -) 40 mg PO DAILY [facility] Last Admin: 12/18/17 10:20 Dose: Not Given Pantoprazole Sodium (Protonix -) 20 mg PO DAILY [facility] Last Admin: 12/18/17 09:35 Dose: 20 mg Polyethylene Glycol (Miralax (For Daily Use) -) 17 gm PO DAILY [facility] Last Admin: 12/18/17 10:20 Dose: Not Given Pregabalin (Lyrica -) 100 mg PO DAILY [facility] Last Admin: 12/18/17 09:36 Dose: 100 mg - Objective Vital Signs: Vital Signs Temperature 99.1 F 12/19/17 08:55 Pulse Rate 86 12/19/17 12:00 Respiratory Rate 18 12/19/17 12:00 Blood Pressure 125/78 12/19/17 12:00 O2 Sat by Pulse Oximetry (%) 96 12/18/17 21:00 Constitutional: Yes: Calm Eyes: Yes: Conjunctiva Clear HENT: Yes: Atraumatic Neck: Yes: Supple Cardiovascular: Yes: S1, S2 Respiratory: Yes: CTA Bilaterally Gastrointestinal: Yes: Normal Bowel Sounds, Soft Genitourinary: Yes: WNL Musculoskeletal: Yes: Other (foot ulcer) Edema: Yes Edema: LLE: Trace, RLE: Trace Neurological: Yes: Oriented Psychiatric: Yes: Oriented Labs: CBC, BMP 12/19/17 09:00 12/19/17 09:00 INR, PTT INR 1.12 (0.83-1.09) H 12/14/17 13:25 Problem List - Problems (1) Cellulitis Code(s): L03.90 - CELLULITIS, UNSPECIFIED (2) Diabetes mellitus Code(s): E11.9 - TYPE 2 DIABETES MELLITUS WITHOUT COMPLICATIONS Qualifiers: Diabetes mellitus type: type 2 (3) ESRD (end stage renal disease) Code(s): N18.6 - END STAGE RENAL DISEASE (4) HLD (hyperlipidemia) Code(s): E78.5 - HYPERLIPIDEMIA, UNSPECIFIED (5) HTN (hypertension) Code(s): I10 - ESSENTIAL (PRIMARY) HYPERTENSION (6) Lymph edema Code(s): I89.0 - LYMPHEDEMA, NOT ELSEWHERE CLASSIFIED (7) Morbid obesity Code(s): E66.01 - MORBID (SEVERE) OBESITY DUE TO EXCESS CALORIES Assessment/Plan Current Medications Generic Name Dose Route Start Last Admin Trade Name Freq PRN Reason Stop Dose Admin Albuterol Sulfate 2 puff 12/15/17 06:46 Ventolin Hfa Inhaler - IH Q4H PRN SHORTNESS OF BREATH Aspirin 81 mg 12/15/17 10:00 12/18/17 09:36 Asa - PO 81 mg DAILY [facility] Administration Atorvastatin Calcium 80 mg 12/14/17 22:00 12/18/17 22:02 Lipitor - PO 80 mg HS [facility] Administration Calcium Acetate 1,334 mg 12/15/17 08:00 12/19/17 08:15 Phoslo - PO 1,334 mg TIDCM [facility] Administration Carvedilol 6.25 mg 12/14/17 22:00 12/18/17 22:02 Coreg - PO 6.25 mg BID [facility] Administration Cholecalciferol 2,000 unit 12/15/17 10:00 12/18/17 09:35 Vitamin D3 - PO 2,000 unit DAILY [facility] Administration Collagenase 1 applic 12/16/17 10:00 12/18/17 12:00 Santyl - TP 1 applic DAILY [facility] Administration Protocol Docusate Sodium 300 mg 12/14/17 22:00 Colace - PO HS PRN CONSTIPATION Heparin Sodium (Porcine) 5,000 unit 12/14/17 18:00 12/19/17 03:09 Heparin - SQ 5,000 unit Q8H-IV [facility] Administration Piperacillin Sod/Tazobactam 50 mls @ 100 mls/hr 12/16/17 10:00 12/19/17 03:08 Sod 2.25 gm/ Dextrose IVPB 100 mls/hr Q8H-IV [facility] Administration Protocol Insulin Aspart 1 vial 12/14/17 22:00 12/19/17 06:08 Novolog Vial Sliding Scale - SQ Not Given ACHS [facility] Protocol Lactobacillus Acidophilus 1 tab 12/19/17 12:15 Bacid - PO DAILY [facility] Pantoprazole Sodium 40 mg 12/15/17 10:00 12/18/17 10:20 Protonix - PO Not Given DAILY [facility] Pantoprazole Sodium 20 mg 12/15/17 10:00 12/18/17 09:35 Protonix - PO 20 mg DAILY [facility] Administration Polyethylene Glycol 17 gm 12/15/17 10:00 12/18/17 10:20 Miralax (For Daily Use) - PO Not Given DAILY [facility] Pregabalin 100 mg 12/15/17 10:00 12/18/17 09:36 Lyrica - PO 100 mg DAILY [facility] Administration Impression 1. ESRD 2. anemia 3. HTN 4. morbid obesity 5. CVA 6. hyperlipidemia 7. proteinuria - nephrotic 8. PVD 9. foot ulcer Plan - HD today - abd per ID - cont wound care - epogen for anemia - abx per ID - will follow Dr Win
--- NOTE | 2017-12-19 13:50 | PN ---
Progress Note (short form) - Note Progress Note: Podiatry F/U: Seen/evaluated at bedside NAD. Denies F/V/N/C/SOB/CP. AFebrile. KEEGAN: R foot: pedal pulses nonpalpable, CFT delayed to third toe, absent to second toe. Duskiness and ulcer deep on second digit, necrotic eschar dorsally, no purulent drainage, no soft tissue crepitus, periwound erythema to the sulcus. No tenderness to palpation. Imp: 57 year old DM, PVD M with R 2nd digit ischemia, cellulitis 1. IV abx 2. Local wound care 3. For PVRs. Based on vascular studies, may need revascularization. Dr. Sheets on the case. 4. May need second toe amputation if condition does not improve. Will be on standby. Amarilis Alcantara DPM
[2017-12-19] MEDS: LACTOBACILLUS ACIDOPHILUS 1 TABLET PO SCH (14:28)
[2017-12-19] MEDS: PREGABALIN 100 MG CAPSULE PO SCH (14:28)
[2017-12-19] MEDS: ASPIRIN 81 MG CHEWABLE TABLETS PO SCH (14:29)
[2017-12-19] MEDS: CHOLECALCIFEROL (VITAMIN D3) 1,000 UNIT TABLET (FP) PO SCH (14:29)
[2017-12-19] MEDS: PANTOPRAZOLE 20 MG TABLET (FP) PO SCH (14:29)
[2017-12-19] MEDS: PANTOPRAZOLE 40 MG TABLET (FP) PO SCH (14:29)
[2017-12-19] MEDS: COLLAGENASE CLOSTRIDIUM HIST. 30 GRAMS TUBE TP SCH (15:00)
--- NOTE | 2017-12-19 15:48 | PN ---
Physical Exam: SUBJECTIVE: Patient seen and examined at bedside this morning. Patient reports multiple episodes of nonbloody watery diarrhea that started at 2am this morning. Otherwise, he denies chest pain, SOB, palpitations, abdominal pain, urinary symptoms. OBJECTIVE: Vital Signs Period Temp Pulse Resp BP Sys/Leon Pulse Ox Last 24 Hr 98.7 F-99.2 F 77-104 18-21 125-150/60-82 96 GENERAL: Awake, alert, and fully oriented, in no acute distress. HEAD: Normal with no signs of trauma. EYES: PERRLA, EOMI, sclera anicteric, conjunctiva clear. EARS, NOSE, THROAT: Ears normal, nares patent, oropharynx clear without exudates. Moist mucous membranes. NECK: Normal range of motion, supple without lymphadenopathy, JVD, or masses. LUNGS: Breath sounds equal, clear to auscultation bilaterally. HEART: Regular rate and rhythm, normal S1 and S2 without murmur, rub or gallop. ABDOMEN: Soft, nontender, not distended, normoactive bowel sounds. MUSCULOSKELETAL: Normal range of motion at all joints. No bony deformities or tenderness. No CVA tenderness. UPPER EXTREMITIES: 2+ pulses, warm, well-perfused. No cyanosis. No clubbing. No peripheral edema. LOWER EXTREMITIES: BLE: +erythema, +tenderness on palpation of anterior [place], + warmth, +scaling with yellowish discoloration that extends from knees to foot. Right 2nd toe bandaged. Pulses palpable. NEUROLOGICAL: Cranial nerves II-XII intact. Normal speech. Normal gait. PSYCHIATRIC: Cooperative. Good eye contact. Appropriate mood and affect. SKIN: Warm, dry, normal turgor, no rashes or lesions noted, normal capillary refill. Laboratory Results - last 24 hr 12/18/17 12/18/17 12/19/17 16:59 22:01 06:06 WBC RBC Hgb Hct MCV MCH MCHC RDW Plt Count MPV Sodium Potassium Chloride Carbon Dioxide Anion Gap BUN Creatinine Creat Clearance w eGFR POC Glucometer 171 249 183 Random Glucose Calcium 12/19/17 12/19/17 09:00 09:00 WBC 10.9 H RBC 3.49 L Hgb 10.7 L Hct 32.4 L MCV 92.9 MCH 30.7 MCHC 33.1 RDW 16.2 H Plt Count 236 MPV 9.5 Sodium 134 L Potassium 4.4 Chloride 98 Carbon Dioxide 21 Anion Gap 16 BUN 53 H Creatinine 9.7 H* Creat Clearance w eGFR 5.60 POC Glucometer Random Glucose 268 H Calcium 8.4 L Active Medications Generic Name Dose Route Start Last Admin Trade Name Freq PRN Reason Stop Dose Admin Albuterol Sulfate 2 puff 12/15/17 06:46 Ventolin Hfa Inhaler - IH Q4H PRN SHORTNESS OF BREATH Aspirin 81 mg 12/15/17 10:00 12/19/17 14:29 Asa - PO 81 mg DAILY [facility] Administration Atorvastatin Calcium 80 mg 12/14/17 22:00 12/18/17 22:02 Lipitor - PO 80 mg HS [facility] Administration Calcium Acetate 1,334 mg 12/15/17 08:00 12/19/17 14:29 Phoslo - PO 1,334 mg TIDCM [facility] Administration Carvedilol 6.25 mg 12/14/17 22:00 12/18/17 22:02 Coreg - PO 6.25 mg BID [facility] Administration Cholecalciferol 2,000 unit 12/15/17 10:00 12/19/17 14:29 Vitamin D3 - PO 2,000 unit DAILY [facility] Administration Collagenase 1 applic 12/16/17 10:00 12/18/17 12:00 Santyl - TP 1 applic DAILY [facility] Administration Protocol Docusate Sodium 300 mg 12/14/17 22:00 Colace - PO HS PRN CONSTIPATION Heparin Sodium (Porcine) 5,000 unit 12/14/17 18:00 12/19/17 03:09 Heparin - SQ 5,000 unit Q8H-IV [facility] Administration Piperacillin Sod/Tazobactam 50 mls @ 100 mls/hr 12/16/17 10:00 12/19/17 14:28 Sod 2.25 gm/ Dextrose IVPB 100 mls/hr Q8H-IV [facility] Administration Protocol Insulin Aspart 1 vial 12/14/17 22:00 12/19/17 06:08 Novolog Vial Sliding Scale - SQ Not Given ACHS [facility] Protocol Lactobacillus Acidophilus 1 tab 12/19/17 12:15 12/19/17 14:28 Bacid - PO 1 tab DAILY [facility] Administration Pantoprazole Sodium 40 mg 12/15/17 10:00 12/19/17 14:29 Protonix - PO Not Given DAILY [facility] Pantoprazole Sodium 20 mg 12/15/17 10:00 12/19/17 14:29 Protonix - PO 20 mg DAILY [facility] Administration Polyethylene Glycol 17 gm 12/15/17 10:00 12/18/17 10:20 Miralax (For Daily Use) - PO Not Given DAILY [facility] Pregabalin 100 mg 12/15/17 10:00 12/19/17 14:28 Lyrica - PO 100 mg DAILY [facility] Administration ASSESSMENT/PLAN: Patient is a 57 year old male with past medical history of anemia, asthma, COPD , DM, HTN, ESRD (HD TTS), PVD, and CVA, presented with Right leg pain. #RLE cellulitis -Vanc/Zosyn given at the ED. Ertapenem 1gm once given. -Previous wound Cx - MRSA, ESBL, A. baumanii -Xray of the right foot -no fractures or bone destruction -Duplex US of b/l legs - no DVT -LE US done - pending final read -Podiatry (Dr. Alcantara) consulted.Recommendations appreciated. -s/p excisional debridement of right 2nd digit diabetic ulcer to subcutaneous tissue -Rx santyl for local wound care -For vascular work-up -MRI ordered to rule out osteomyelitis - can not be done as patient is overweight -Triphasic bone scan ordered. -Will try to watch progression of the toe clinically, hopefully will not need amputation. -ID (Dr. Giron) consulted. Recommendations appreciated. -Vancomycin - dose adjusted -Zosyn 2.25g q8h started. -Vascular surgery (Dr. Sheets) consulted. Recommendations appreciated. -PVRs/ALEJANDRA ordered. -Continue HD via left UE fistula #ESRD on HD -On HD TTS -Neurology (Dr. Win) consulted. -HD today. -Avoid nephrotoxic agents such as NSAIDs, aminoglycosides, or contrast #Diarrhea -patient took stool softeners last night -Stool cx, wbc, c.diff ordered -probiotics started. #DM -hold Januvia -BGM ACHS -Implement insulin sliding scale #HTN -Continue Torsemide 80 mg daily, Coreg 6.25 BID #Hx of CVA -Continue ASA 81, Atorvastatin 80mg #HOLLY -on CPAP #COPD -Albuterol Inh PRN #FEN -Not on any standing fluids -Encourage increased oral fluid intake -Electrolytes wnl, routine bmp monitoring -diabetic/sodium diet #Prophylaxis -Heparin 5000units sq tid #Disposition -full code -admit to med-surg Visit type - Emergency Visit Emergency Visit: Yes ED Registration Date: 12/14/17 Care time: The patient presented to the Emergency Department on the above date and was hospitalized for further evaluation of their emergent condition. - New Patient This patient is new to me today: Yes Date on this admission: 12/19/17 - Critical Care Critical Care patient: No
[2017-12-19] MEDS: POLYETHYLENE GLYCOL 3350 119 GM BTL PO SCH (15:57)
[2017-12-19] MEDS: CARVEDILOL 6.25 MG TABLET (FP) PO SCH ×2 (15:57→22:07)
--- NOTE | 2017-12-19 16:18 | PN ---
Progress Note (short form) - Note Progress Note: PT no longer having chills. Had diarrhea which is now resolved, he was given stool softners that night before. Vital Signs Period Temp Pulse Resp BP Sys/Leon Pulse Ox Last 24 Hr 98.7 F-99.2 F 77-104 18-21 125-150/60-82 96 GEN: A&0x3, NAD Right foot: slightly less erythematous at base of 3/4 toe. 2nd toe with drainage and tissue edematous and wet. Microbiology 12/14/17 12:45 Blood - Peripheral Venous Blood Culture - Final NO GROWTH AFTER 5 DAYS INCUBATION 12/14/17 12:45 Blood - Peripheral Venous Blood Culture - Final NO GROWTH AFTER 5 DAYS INCUBATION CBC, BMP 12/19/17 09:00 12/19/17 09:00 Problem List - Problems (1) Cellulitis Assessment/Plan: Pt with 2nd toe ulcer and infection of 2/3/4 toe/base of toe PVRs completed today/awaiting results Plan for bone scan tomorrow Continue IV Zosyn Code(s): L03.90 - CELLULITIS, UNSPECIFIED
[2017-12-19] MEDS ORDERED: VANCOMYCIN 1 GRAM (PRE-DOCKED) 1,000 MG/250 ML BAG IVPB ONE (16:33)
--- NOTE | 2017-12-19 16:36 | PN ---
Progress Note (short form) - Note Progress Note: no complaints Vital Signs Period Temp Pulse Resp BP Sys/Leon Pulse Ox Last 24 Hr 98.7 F-99.2 F 77-104 18-21 125-150/60-82 96 cor-rrr lungs clear toe remains red and discolored, thigh erythema has resolved CBC, BMP 12/19/17 09:00 12/19/17 09:00 Microbiology 12/14/17 12:45 Blood - Peripheral Venous Blood Culture - Final NO GROWTH AFTER 5 DAYS INCUBATION 12/14/17 12:45 Blood - Peripheral Venous Blood Culture - Final NO GROWTH AFTER 5 DAYS INCUBATION xray no bony changes a/p thigh cellulitis resolved second toe with erythema and drainage r/o osteo second toe vs ischemia continue vascular workup too heavy for MRI will get bone scan continue vanco by levels-redose today continue zosyn Problem List - Problems (1) Cellulitis Code(s): L03.90 - CELLULITIS, UNSPECIFIED (2) Right second toe ulcer Code(s): L97.519 - NON-PRS CHRONIC ULCER OTH PRT RIGHT FOOT W UNSP SEVERITY (3) Diabetes mellitus Code(s): E11.9 - TYPE 2 DIABETES MELLITUS WITHOUT COMPLICATIONS Qualifiers: Diabetes mellitus type: type 2 (4) MDRO (multiple drug resistant organisms) resistance Code(s): Z16.35 - RESISTANCE TO MULTIPLE ANTIMICROBIAL DRUGS
[2017-12-19] MEDS ORDERED: INSULIN (NOVOLOG) ASPART 100 UNITS/ML 10ML VIAL ONE (17:21)
--- NOTE | 2017-12-19 18:21 | PN ---
Teaching Attending Note Name of Resident: Barabra Nuñez ATTENDING PHYSICIAN STATEMENT I saw and evaluated the patient. I reviewed the resident's note and discussed the case with the resident. I agree with the resident's findings and plan as documented. SUBJECTIVE:states swelling and erythema has improved but leg is conditioner tender. continues to have loose stools but less in frequency. denies CP, SOB, fever, chills, N/V/C/ OBJECTIVE: Last Vital Signs Temp Pulse Resp BP Pulse Ox 98.7 F 104 H 21 H 133/82 96 12/19/17 14:00 12/19/17 14:00 12/19/17 14:00 12/19/17 14:00 12/18/17 21:00 General NAD Extremities RLE erythema to medial thigh. tender no warmth, chronic skin changes B/L LE ASSESSMENT AND PLAN: 57 yo M with pMHx anemia, asthma, COPD, DM, HTN, ESRD (HD TTS), PVD, and CVA, presented with Right leg pain amd found to have RLE cellulitis 1. RLE cellulitis, r/o 2nd toe OM- s/p debridement on 12/16. unable to obtain MRI due to body weight. PVR done today. plan for bone scan tomorrow. on Vanco/ zosyn. doses by level. vascular and ID on board 2. Diarrhea- likely abx assoc diarrhea. no fevers or abdominal pain. also improving. start bacid. monitor 3. ESRD on HD- resume normal schedule. renal on board 4. NIDDM- hold oral agents. iss and BGM 5. HTN- controlled 6. H/o Right TMA (Wound with ESBL/MRSA) 7. COPD 8. HOLLY on CPAP 9. DVT ppx- Hep sq
[2017-12-19] MEDS: MINERAL OIL/PETROLAT/WATER TOPICAL CREAM 113 GM JAR TP SCH (22:07)
[2017-12-19] MEDS: ATORVASTATIN CA 80 MG TABLET (FP) PO SCH (22:07)
[2017-12-20] MEDS ORDERED: PIPERACILLIN/TAZOBACTAM 2.25 GM VIAL IVPB ONE ×3 (00:54→18:10)
[2017-12-20] MEDS ORDERED: DEXTROSE 5%-WATER - 50 ML IVPB ONE ×3 (00:55→18:10)
[2017-12-20] MEDS: HEPARIN NA (PORCINE) 5,000 UNITS/ML 1ML VIAL SQ SCH (01:02)
[2017-12-20] MEDS: PIPERACILLIN/TAZOB 2.25 GM 2.25 GM in DEXTROSE 5%-WATER - 50 ML IVPB SCH ×3 (01:03→18:13)
[2017-12-20] MEDS ORDERED: INSULIN (NOVOLOG) ASPART 100 UNITS/ML 10ML VIAL ONE ×2 (06:02→21:04)
[2017-12-20] MEDS: INSULIN SLIDING SCALE (NOVOLOG) 1 VIAL SQ SCH ×4 (06:02→21:25)
[2017-12-20 06:42] LABS: HEMATOCRIT 31.9 % (35.4-49); HEMOGLOBIN 10.2 GM/dL (11.7-16.9); MEAN CELL VOLUME 93.8 fl (80-96); MEAN PLT VOLUME 9.4 fl (7.5-11.1); PLATELET COUNT 232 K/MM3 (134-434); RDW 16.7 % (11.9-15.9); WHITE BLOOD COUNT 8.6 K/mm3 (4.0-10.0)
[2017-12-20 08:02] LABS: ANION GAP 10 MMOL/L (8-16); BLOOD UREA NITROGEN 34 mg/dL (7-18); CALCIUM 8.3 mg/dL (8.5-10.1); CHLORIDE 99 mmol/L (98-107); CO2 28 mmol/L (21-32); CREATININE 6.7 mg/dL (0.55-1.3); GLUCOSE,RANDOM 146 mg/dL (74-106); POTASSIUM 4.4 mmol/L (3.5-5.1); SODIUM 138 mmol/L (136-145)
[2017-12-20] MEDS: CALCIUM ACETATE 667 MG CAPSULE (FP) PO SCH ×4 (08:45→18:42)
[2017-12-20] MEDS ORDERED: PT OWN MED DRAWER 7, Y5N ONE (11:29)
[2017-12-20] MEDS: ASPIRIN 81 MG CHEWABLE TABLETS PO SCH (11:36)
[2017-12-20] MEDS: PANTOPRAZOLE 40 MG TABLET (FP) PO SCH (11:36)
[2017-12-20] MEDS: LACTOBACILLUS ACIDOPHILUS 1 TABLET PO SCH (11:36)
[2017-12-20] MEDS: PANTOPRAZOLE 20 MG TABLET (FP) PO SCH (11:36)
[2017-12-20] MEDS: PREGABALIN 100 MG CAPSULE PO SCH (11:36)
[2017-12-20] MEDS: CHOLECALCIFEROL (VITAMIN D3) 1,000 UNIT TABLET (FP) PO SCH (11:36)
[2017-12-20] MEDS: CARVEDILOL 6.25 MG TABLET (FP) PO SCH ×2 (11:36→21:18)
[2017-12-20] MEDS: POLYETHYLENE GLYCOL 3350 119 GM BTL PO SCH (11:37)
[2017-12-20] MEDS: COLLAGENASE CLOSTRIDIUM HIST. 30 GRAMS TUBE TP SCH (11:41)
[2017-12-20] MEDS: MINERAL OIL/PETROLAT/WATER TOPICAL CREAM 113 GM JAR TP SCH ×2 (11:49→21:21)
--- NOTE | 2017-12-20 12:11 | PN ---
Progress Note, Physician History of Present Illness: Pt seen and examined at bedside. He is awake and alert. He denies shortness of breath. - Current Medication List Current Medications: Active Medications Albuterol Sulfate (Ventolin Hfa Inhaler -) 2 puff IH Q4H PRN PRN Reason: SHORTNESS OF BREATH Aspirin (Asa -) 81 mg PO DAILY [facility] Last Admin: 12/20/17 11:36 Dose: 81 mg Atorvastatin Calcium (Lipitor -) 80 mg PO HS [facility] Last Admin: 12/19/17 22:07 Dose: 80 mg Calcium Acetate (Phoslo -) 1,334 mg PO TIDCM [facility] Last Admin: 12/20/17 11:37 Dose: 1,334 mg Carvedilol (Coreg -) 6.25 mg PO BID [facility] Last Admin: 12/20/17 11:36 Dose: 6.25 mg Cholecalciferol (Vitamin D3 -) 2,000 unit PO DAILY [facility] Last Admin: 12/20/17 11:36 Dose: 2,000 unit Collagenase (Santyl -) 1 applic TP DAILY [facility]; Protocol Last Admin: 12/20/17 11:41 Dose: 1 applic Docusate Sodium (Colace -) 300 mg PO HS PRN PRN Reason: CONSTIPATION Heparin Sodium (Porcine) (Heparin -) 5,000 unit SQ Q8H-IV [facility] Last Admin: 12/20/17 01:02 Dose: 5,000 unit Piperacillin Sod/Tazobactam (Sod 2.25 gm/ Dextrose) 50 mls @ 100 mls/hr IVPB Q8H-IV [facility]; Protocol Last Admin: 12/20/17 11:37 Dose: 100 mls/hr Insulin Aspart (Novolog Vial Sliding Scale -) 1 vial SQ ACHS [facility]; Protocol Last Admin: 12/20/17 11:58 Dose: Not Given Lactobacillus Acidophilus (Bacid -) 1 tab PO DAILY [facility] Last Admin: 12/20/17 11:36 Dose: 1 tab Multi-Ingredient Lotion (Eucerin (Small Jar) -) 1 applic TP BID [facility] Last Admin: 12/20/17 11:49 Dose: 1 applic Pantoprazole Sodium (Protonix -) 40 mg PO DAILY [facility] Last Admin: 12/20/17 11:36 Dose: 40 mg Pantoprazole Sodium (Protonix -) 20 mg PO DAILY [facility] Last Admin: 12/20/17 11:36 Dose: 20 mg Polyethylene Glycol (Miralax (For Daily Use) -) 17 gm PO DAILY [facility] Last Admin: 12/20/17 11:37 Dose: Not Given Pregabalin (Lyrica -) 100 mg PO DAILY [facility] Last Admin: 12/20/17 11:36 Dose: 100 mg - Objective Vital Signs: Vital Signs Temperature 99.4 F 12/20/17 06:00 Pulse Rate 77 12/20/17 06:00 Respiratory Rate 20 12/20/17 06:00 Blood Pressure 125/67 12/20/17 06:00 O2 Sat by Pulse Oximetry (%) 96 12/19/17 22:00 Constitutional: Yes: Calm Eyes: Yes: Conjunctiva Clear HENT: Yes: Atraumatic Cardiovascular: Yes: S1, S2 Respiratory: Yes: CTA Bilaterally Gastrointestinal: Yes: Soft, Abdomen, Obese Genitourinary: Yes: WNL Musculoskeletal: Yes: WNL Edema: No Neurological: Yes: Oriented Psychiatric: Yes: Oriented Labs: CBC, BMP 12/20/17 06:00 12/20/17 06:00 INR, PTT INR 1.12 (0.83-1.09) H 12/14/17 13:25 Problem List - Problems (1) Cellulitis Code(s): L03.90 - CELLULITIS, UNSPECIFIED (2) Diabetes mellitus Code(s): E11.9 - TYPE 2 DIABETES MELLITUS WITHOUT COMPLICATIONS Qualifiers: Diabetes mellitus type: type 2 (3) ESRD (end stage renal disease) Code(s): N18.6 - END STAGE RENAL DISEASE (4) HLD (hyperlipidemia) Code(s): E78.5 - HYPERLIPIDEMIA, UNSPECIFIED (5) HTN (hypertension) Code(s): I10 - ESSENTIAL (PRIMARY) HYPERTENSION (6) Lymph edema Code(s): I89.0 - LYMPHEDEMA, NOT ELSEWHERE CLASSIFIED (7) Morbid obesity Code(s): E66.01 - MORBID (SEVERE) OBESITY DUE TO EXCESS CALORIES Assessment/Plan Current Medications Generic Name Dose Route Start Last Admin Trade Name Freq PRN Reason Stop Dose Admin Albuterol Sulfate 2 puff 12/15/17 06:46 Ventolin Hfa Inhaler - IH Q4H PRN SHORTNESS OF BREATH Aspirin 81 mg 12/15/17 10:00 12/20/17 11:36 Asa - PO 81 mg DAILY [facility] Administration Atorvastatin Calcium 80 mg 12/14/17 22:00 12/19/17 22:07 Lipitor - PO 80 mg HS [facility] Administration Calcium Acetate 1,334 mg 12/15/17 08:00 12/20/17 11:37 Phoslo - PO 1,334 mg TIDCM [facility] Administration Carvedilol 6.25 mg 12/14/17 22:00 12/20/17 11:36 Coreg - PO 6.25 mg BID [facility] Administration Cholecalciferol 2,000 unit 12/15/17 10:00 12/20/17 11:36 Vitamin D3 - PO 2,000 unit DAILY [facility] Administration Collagenase 1 applic 12/16/17 10:00 12/20/17 11:41 Santyl - TP 1 applic DAILY [facility] Administration Protocol Docusate Sodium 300 mg 12/14/17 22:00 Colace - PO HS PRN CONSTIPATION Heparin Sodium (Porcine) 5,000 unit 12/14/17 18:00 12/20/17 01:02 Heparin - SQ 5,000 unit Q8H-IV [facility] Administration Piperacillin Sod/Tazobactam 50 mls @ 100 mls/hr 12/16/17 10:00 12/20/17 11:37 Sod 2.25 gm/ Dextrose IVPB 100 mls/hr Q8H-IV [facility] Administration Protocol Insulin Aspart 1 vial 12/14/17 22:00 12/20/17 11:58 Novolog Vial Sliding Scale - SQ Not Given ACHS [facility] Protocol Lactobacillus Acidophilus 1 tab 12/19/17 12:15 12/20/17 11:36 Bacid - PO 1 tab DAILY [facility] Administration Multi-Ingredient Lotion 1 applic 12/19/17 16:48 12/20/17 11:49 Eucerin (Small Jar) - TP 1 applic BID [facility] Administration Pantoprazole Sodium 40 mg 12/15/17 10:00 12/20/17 11:36 Protonix - PO 40 mg DAILY [facility] Administration Pantoprazole Sodium 20 mg 12/15/17 10:00 12/20/17 11:36 Protonix - PO 20 mg DAILY [facility] Administration Polyethylene Glycol 17 gm 12/15/17 10:00 12/20/17 11:37 Miralax (For Daily Use) - PO Not Given DAILY [facility] Pregabalin 100 mg 12/15/17 10:00 10/17/18 11:36 Lyrica - PO 100 mg DAILY [facility] Administration Impression 1. ESRD 2. anemia 3. HTN 4. morbid obesity 5. CVA 6. hyperlipidemia 7. proteinuria - nephrotic 8. PVD 9. foot ulcer Plan - HD in am - cont wound care - epogen for anemia - follow up nuclear scan results - abx per ID - will follow Dr Win
[2017-12-20] MEDS ORDERED: SODIUM CHLORIDE 250 ML IV PRN (12:13)
[2017-12-20] MEDS ORDERED: LIDOCAINE HCL 1%, 10 MG/ML (20ML VIAL) ONE (14:45)
[2017-12-20] MEDS ORDERED: HEPARIN NA (PORCINE) 5,000 UNITS/ML 1ML VIAL ONE (14:45)
--- NOTE | 2017-12-20 15:25 | PN ---
Teaching Attending Note Name of Resident: Barbara Nuñez ATTENDING PHYSICIAN STATEMENT I saw and evaluated the patient. I reviewed the resident's note and discussed the case with the resident. I agree with the resident's findings and plan as documented. SUBJECTIVE:pain is improving. states stools are less watery and only had 1 today so far. denies CP, SOB, fever, chills, N/V/C OBJECTIVE: Last Vital Signs Temp Pulse Resp BP Pulse Ox 98.3 F 104 H 24 H 111/74 96 12/20/17 14:00 12/20/17 14:00 12/20/17 14:00 12/20/17 14:00 12/20/17 09:00 General NAD Extremities RLE erythema to medial thigh. no tender no warmth, chronic skin changes B/L LE ASSESSMENT AND PLAN: 57 yo M with pMHx anemia, asthma, COPD, DM, HTN, ESRD (HD TTS), PVD, and CVA, presented with Right leg pain amd found to have RLE cellulitis 1. RLE cellulitis, r/o 2nd toe OM- s/p debridement on 12/16. unable to obtain MRI due to body weight. Bone scan planned for today. PVR pending on Vanco/ zosyn. doses by level. vascular and ID on board 2. Diarrhea- likely abx assoc diarrhea. no fevers or abdominal pain. also improving. on bacid. 3. ESRD on HD- resume normal schedule. renal on board 4. NIDDM- hold oral agents. iss and BGM 5. HTN- controlled 6. H/o Right TMA (Wound with ESBL/MRSA) 7. COPD 8. HOLLY on CPAP 9. DVT ppx- Hep sq
--- NOTE | 2017-12-20 16:10 | PN ---
Progress Note (short form) - Note Progress Note: no complaints Vital Signs Period Temp Pulse Resp BP Sys/Leon Pulse Ox Last 24 Hr 98.3 F-99.4 F 77-104 20-24 111-125/60-74 96-96 toe looks a bit less red and less cyanotic today less drainage, erythema of thigh has resolved CBC, BMP 12/20/17 06:00 12/20/17 06:00 xray no bony changes a/p thigh cellulitis resolved second toe with erythema and drainage r/o osteo second toe vs ischemia continue vascular workup too heavy for MRI s/p vano yesterday, levell in am bone scan pending for angiogram today continue zosyn vanco by levels Problem List - Problems (1) Cellulitis Code(s): L03.90 - CELLULITIS, UNSPECIFIED (2) Right second toe ulcer Code(s): L97.519 - NON-PRS CHRONIC ULCER OTH PRT RIGHT FOOT W UNSP SEVERITY (3) Diabetes mellitus Code(s): E11.9 - TYPE 2 DIABETES MELLITUS WITHOUT COMPLICATIONS Qualifiers: Diabetes mellitus type: type 2 (4) MDRO (multiple drug resistant organisms) resistance Code(s): Z16.35 - RESISTANCE TO MULTIPLE ANTIMICROBIAL DRUGS
[2017-12-20] MEDS ORDERED: ONDANSETRON 4 MG/2 ML VIAL IVPUSH PRN (16:21)
[2017-12-20] MEDS ORDERED: MIDAZOLAM HCL 2 MG/2 ML SINGLE DOSE VIAL ONE ×2 (17:22→17:26)
[2017-12-20] MEDS ORDERED: LIDOCAINE HCL 1%, 10 MG/ML (20ML VIAL) NR ONE (17:35)
[2017-12-20] MEDS ORDERED: HEPARIN NA (PORCINE) 5,000 UNITS/ML 1ML VIAL SQ ONE (17:40)
--- NOTE | 2017-12-20 18:02 | OP ---
Operative Note - Note: Operative Date: 12/20/17 Pre-Operative Diagnosis: Diabetic toe infection, PAD Operation: Ultrasound guided cannulation right femoral artery. Angiogram right leg Findings: Calcified femoral, popliteal and tibial arteries. No stenosis identified, anterior tibial runoff to dorsalis pedis and plantar arch Post-Operative Diagnosis: Same as Pre-op Surgeon: Raj Sheets Anesthesiologist/INSPECTOR RUBBER STAMP DIE: Kaitlin Chua Anesthesia: Fractional Operative Report Dictated: Yes
--- NOTE | 2017-12-20 18:08 | PN ---
Progress Note (short form) - Note Progress Note: Right leg angiogram did not reveal any significant arterial occlusions. Flow to foot via anterior tibial and dorsalis pedis artery. No need for ant vascular interventions.
--- NOTE | 2017-12-20 18:47 | PN ---
Physical Exam: SUBJECTIVE: Patient seen and examined at bedside this morning. No acute events overnight. Patient reported improvement of diarrhea. He has no new complaints otherwise. OBJECTIVE: Vital Signs Period Temp Pulse Resp BP Sys/Leon Pulse Ox Last 24 Hr 98.3 F-99.4 F 77-104 18-24 111-125/60-75 96-97 GENERAL: Awake, alert, and fully oriented, in no acute distress. HEAD: Normal with no signs of trauma. EYES: PERRLA, EOMI, sclera anicteric, conjunctiva clear. EARS, NOSE, THROAT: Ears normal, nares patent, oropharynx clear without exudates. Moist mucous membranes. NECK: Normal range of motion, supple without lymphadenopathy, JVD, or masses. LUNGS: Breath sounds equal, clear to auscultation bilaterally. HEART: Regular rate and rhythm, normal S1 and S2 without murmur, rub or gallop. ABDOMEN: Soft, nontender, not distended, normoactive bowel sounds. MUSCULOSKELETAL: Normal range of motion at all joints. No bony deformities or tenderness. No CVA tenderness. UPPER EXTREMITIES: 2+ pulses, warm, well-perfused. No cyanosis. No clubbing. No peripheral edema. LOWER EXTREMITIES: BLE: +erythema, +tenderness on palpation of anterior oglesby, + warmth, +scaling with yellowish discoloration that extends from knees to foot. Right 2nd toe less erythematous and less cyanotic. Pulses palpable. NEUROLOGICAL: Cranial nerves II-XII intact. Normal speech. Normal gait. PSYCHIATRIC: Cooperative. Good eye contact. Appropriate mood and affect. SKIN: Warm, dry, normal turgor, no rashes or lesions noted, normal capillary refill. Laboratory Results - last 24 hr 12/19/17 12/19/17 12/20/17 17:17 22:06 05:56 WBC RBC Hgb Hct MCV MCH MCHC RDW Plt Count MPV Sodium Potassium Chloride Carbon Dioxide Anion Gap BUN Creatinine Creat Clearance w eGFR POC Glucometer 295 206 150 Random Glucose Calcium 12/20/17 12/20/17 06:00 06:00 WBC 8.6 RBC 3.40 L Hgb 10.2 L Hct 31.9 L MCV 93.8 MCH 30.0 MCHC 32.0 RDW 16.7 H Plt Count 232 MPV 9.4 Sodium 138 Potassium 4.4 Chloride 99 Carbon Dioxide 28 Anion Gap 10 BUN 34 H Creatinine 6.7 H Creat Clearance w eGFR 8.58 POC Glucometer Random Glucose 146 H Calcium 8.3 L Active Medications Generic Name Dose Route Start Last Admin Trade Name Nataliia PRN Reason Stop Dose Admin Albuterol Sulfate 2 puff 12/15/17 06:46 Ventolin Hfa Inhaler - IH Q4H PRN SHORTNESS OF BREATH Aspirin 81 mg 12/15/17 10:00 12/20/17 11:36 Asa - PO 81 mg DAILY [facility] Administration Atorvastatin Calcium 80 mg 12/14/17 22:00 12/19/17 22:07 Lipitor - PO 80 mg HS [facility] Administration Calcium Acetate 1,334 mg 12/15/17 08:00 12/20/17 18:42 Phoslo - PO 1,334 mg TIDCM [facility] Administration Carvedilol 6.25 mg 12/14/17 22:00 12/20/17 11:36 Coreg - PO 6.25 mg BID [facility] Administration Cholecalciferol 2,000 unit 12/15/17 10:00 12/20/17 11:36 Vitamin D3 - PO 2,000 unit DAILY [facility] Administration Collagenase 1 applic 12/16/17 10:00 12/20/17 11:41 Santyl - TP 1 applic DAILY [facility] Administration Protocol Docusate Sodium 300 mg 12/14/17 22:00 Colace - PO HS PRN CONSTIPATION Epoetin Lawrence 6,000 unit 12/21/17 12:13 Epogen - IVPUSH 12/21/17 12:14 ONCE ONE Heparin Sodium (Porcine) 5,000 unit 12/14/17 18:00 12/20/17 01:02 Heparin - SQ 5,000 unit Q8H-IV [facility] Administration Heparin Sodium (Porcine) 1,000 unit 12/21/17 12:13 Heparin - IVPUSH 12/21/17 12:14 ONCE ONE Piperacillin Sod/Tazobactam 50 mls @ 100 mls/hr 12/16/17 10:00 12/20/17 18:13 Sod 2.25 gm/ Dextrose IVPB 100 mls/hr Q8H-IV [facility] Administration Protocol Sodium Chloride 250 mls @ 3,000 mls/hr 12/20/17 12:13 Normal Saline - IV 12/21/17 12:13 PRN PRN Hypotension during Dialysis Insulin Aspart 1 vial 12/14/17 22:00 12/20/17 16:23 Novolog Vial Sliding Scale - SQ Not Given ACHS [facility] Protocol Lactobacillus Acidophilus 1 tab 12/19/17 12:15 12/20/17 11:36 Bacid - PO 1 tab DAILY [facility] Administration Multi-Ingredient Lotion 1 applic 12/19/17 16:48 12/20/17 11:49 Eucerin (Small Jar) - TP 1 applic BID [facility] Administration Ondansetron HCl 4 mg 12/20/17 16:21 Zofran Injection IVPUSH Q6H PRN NAUSEA AND/OR VOMITING Pantoprazole Sodium 20 mg 12/15/17 10:00 12/20/17 11:36 Protonix - PO 20 mg DAILY [facility] Administration Pregabalin 100 mg 12/15/17 10:00 12/20/17 11:36 Lyrica - PO 100 mg DAILY [facility] Administration ASSESSMENT/PLAN: Patient is a 57 year old male with past medical history of anemia, asthma, COPD , DM, HTN, ESRD (HD TTS), PVD, and CVA, presented with Right leg pain. #RLE cellulitis -Vanc/Zosyn given at the ED. Ertapenem 1gm once given. -Previous wound Cx - MRSA, ESBL, A. baumanii -Xray of the right foot -no fractures or bone destruction -Duplex US of b/l legs - no DVT -LE US done - pending final read -Podiatry (Dr. Alcantara) consulted.Recommendations appreciated. -s/p excisional debridement of right 2nd digit diabetic ulcer to subcutaneous tissue -Rx santyl for local wound care -For vascular work-up -MRI ordered to rule out osteomyelitis - can not be done as patient is overweight -Triphasic bone scan done -- pending final read. -Will try to watch progression of the toe clinically, hopefully will not need amputation. -ID (Dr. Giron) consulted. Recommendations appreciated. -Vancomycin - dose adjusted -Zosyn 2.25g q8h started. -Vascular surgery (Dr. Sheets) consulted. Recommendations appreciated. -PVRs/ALEJANDRA done -- pending final read. -Continue HD via left UE fistula #ESRD on HD -On HD TTS -Neurology (Dr. Win) consulted. -Avoid nephrotoxic agents such as NSAIDs, aminoglycosides, or contrast #Diarrhea -patient took stool softeners last night -Stool cx, wbc, c.diff ordered -probiotics started. #DM -hold Januvia -BGM ACHS -Implement insulin sliding scale #HTN -Continue Torsemide 80 mg daily, Coreg 6.25 BID #Hx of CVA -Continue ASA 81, Atorvastatin 80mg #HOLLY -on CPAP #COPD -Albuterol Inh PRN #FEN -Not on any standing fluids -Encourage increased oral fluid intake -Electrolytes wnl, routine bmp monitoring -diabetic/sodium diet #Prophylaxis -Heparin 5000units sq tid #Disposition -full code -admit to med-surg Visit type - Emergency Visit Emergency Visit: Yes ED Registration Date: 12/14/17 Care time: The patient presented to the Emergency Department on the above date and was hospitalized for further evaluation of their emergent condition. - New Patient This patient is new to me today: Yes Date on this admission: 12/21/17 - Critical Care Critical Care patient: No
--- NOTE | 2017-12-20 19:06 | OP ---
DATE OF OPERATION: 12/20/2017 SURGEON: Raj Sheets M.D. PROCEDURE: Ultrasound guided cannulation of the right femoral artery with angiogram of the right lower extremity. PREOPERATIVE DIAGNOSIS: Diabetes mellitus with peripheral vascular disease and foot wound. POSTOPERATIVE DIAGNOSIS: Diabetes mellitus with peripheral vascular disease and foot wound. ANESTHESIA: Fractional. ANESTHESIOLOGIST: Kaitlin Chua D.O. OPERATIVE FINDINGS: There was diffuse calcification of the femoral popliteal and tibial vessels. There were no significant stenoses or occlusions identified from the femoral popliteal tibial arteries. There was runoff to the foot mainly via the anterior tibial artery to the dorsalis pedis artery, which communicated with the pedal arch. OPERATIVE PROCEDURE: Following routine patient identification with side and site verification, intravenous sedation was established. The right groin was prepped with ChloraPrep. Realtime duplex imaging was used to identify the right superficial femoral artery just distal to its origin. 1% lidocaine was infiltrated in the skin and subcutaneous tissues over the vessel, and this cannulated under ultrasound guidance with a micropuncture needle. The wire was advanced through the needle into the superficial femoral artery, and the needle was exchanged for a 5 Welsh catheter. A Rawls wire was then advanced through the catheter which was exchanged for 5 Welsh sheath. Angiography was then performed with dilute contrast using digital technique with the above-noted findings. The sheath was removed, and a Mynx device was used to seal the arteriotomy. Pressure was applied for 5 minutes, and then a Band-Aid. The patient was taken back to his hospital room in stable condition. Gabrielle CAMEJO/[id number]
[2017-12-20] MEDS: ATORVASTATIN CA 80 MG TABLET (FP) PO SCH (21:18)
[2017-12-21] MEDS ORDERED: PIPERACILLIN/TAZOBACTAM 2.25 GM VIAL IVPB ONE ×3 (02:27→21:49)
[2017-12-21] MEDS ORDERED: DEXTROSE 5%-WATER - 50 ML IVPB ONE ×3 (02:27→21:49)
[2017-12-21] MEDS: PIPERACILLIN/TAZOB 2.25 GM 2.25 GM in DEXTROSE 5%-WATER - 50 ML IVPB SCH ×4 (02:46→22:52)
[2017-12-21] MEDS: INSULIN SLIDING SCALE (NOVOLOG) 1 VIAL SQ SCH ×4 (06:44→23:40)
[2017-12-21] MEDS ORDERED: INSULIN (NOVOLOG) ASPART 100 UNITS/ML 10ML VIAL ONE ×3 (06:56→21:51)
[2017-12-21] MEDS: CALCIUM ACETATE 667 MG CAPSULE (FP) PO SCH ×3 (08:41→16:31)
[2017-12-21] MEDS: MINERAL OIL/PETROLAT/WATER TOPICAL CREAM 113 GM JAR TP SCH ×2 (10:04→23:11)
[2017-12-21] MEDS: COLLAGENASE CLOSTRIDIUM HIST. 30 GRAMS TUBE TP SCH (10:05)
--- NOTE | 2017-12-21 10:29 | PN ---
Progress Note (short form) - Note Progress Note: Podiatry F/U: Seen/evaluated at bedside NAD. Pain controlled. Denies F/V/N/C/SOB/CP. S/p RLE angiogram with Dr. Sheets yesterday. KEEGAN: R foot: 2nd digit gangrenous changes with ischemic blistering, lateral aspect of digit probes to capsule, no purulence, no fluctuance, no streaking cellulitis , no signs of active infection. There is maceration plantar sulcus. Bone scan: report pending Imp: 57 year old DM, PVD M with R 2nd digit ischemic changes 1. IV abx per ID 2. Discussed case with Dr. Sheets, has small vessel disease without any occlusive disease for repair. 3. Discussed treatment options with patient. He is quite reluctant to have toe amputation at this point and wants to treat conservatively and see how things play out. 4. Patient refusing monoplace HBO Tx. Will contact [facility], where there is multiplace hyperbaric chamber. He is amenable to this, which will hopefully increase microperfusion. He understands that he will need operative management if condition worsens. 5. Rx dakins wet to dry dressing to R 2nd digit. 6. Upon discharge will f/u with me in wound healing center. Amarilis Alcantara DPM
[2017-12-21] MEDS: HEPARIN NA (PORCINE) 5,000 UNITS/ML 1ML VIAL SQ SCH ×2 (11:00→19:09)
[2017-12-21] MEDS: CARVEDILOL 6.25 MG TABLET (FP) PO SCH ×2 (11:01→23:10)
--- NOTE | 2017-12-21 11:09 | PN ---
Progress Note (short form) - Note Progress Note: POD #1 - s/p right lower extremity angiogram under MAC. VSS. Pt. doing well, resting comfortably in bed awaiting dialysis. No complaints. No apparent anesthetic complications noted. Continue current care.
[2017-12-21 11:37] LABS: HEMATOCRIT 31.8 % (35.4-49); HEMOGLOBIN 10.2 GM/dL (11.7-16.9); MCHC 32.2 g/dl (32.0-35.9); MEAN CELL VOLUME 93.3 fl (80-96); MEAN PLT VOLUME 9.4 fl (7.5-11.1); PLATELET COUNT 265 K/MM3 (134-434); RBC 3.41 M/mm3 (4.00-5.60); RDW 16.3 % (11.9-15.9); WHITE BLOOD COUNT 10.4 K/mm3 (4.0-10.0)
[2017-12-21] MEDS ORDERED: EPOETIN ALFA 3,000 UNIT/1 ML ML IVPUSH ONE (12:00)
[2017-12-21 12:11] LABS: ANION GAP 9 MMOL/L (8-16); BLOOD UREA NITROGEN 40 mg/dL (7-18); CALCIUM 8.8 mg/dL (8.5-10.1); CHLORIDE 98 mmol/L (98-107); CO2 25 mmol/L (21-32); SODIUM 132 mmol/L (136-145)
[2017-12-21 12:13] LABS: CREATININE 8.6 mg/dL (0.55-1.3); GLUCOSE,RANDOM 314 mg/dL (74-106)
[2017-12-21] MEDS ORDERED: HEPARIN NA (PORCINE) 5,000 UNITS/ML 1ML VIAL IVPUSH ONE (12:13)
--- NOTE | 2017-12-21 14:59 | PN ---
Physical Exam: SUBJECTIVE: Patient seen and examined at bedside this morning. No acute events overnight. Bone scan and angiogram done yesterday. Patient still reports loose bowel movement. He also complains that he doesn't like his food, and threatens to call someone to bring him food from outside. Otherwise, he has no other complaints. OBJECTIVE: Vital Signs Period Temp Pulse Resp BP Sys/Leon Pulse Ox Last 24 Hr 98.1 F-99.2 F 74-108 16-20 104-125/60-75 97-97 GENERAL: Awake, alert, and fully oriented, in no acute distress. HEAD: Normal with no signs of trauma. EYES: PERRLA, EOMI, sclera anicteric, conjunctiva clear. EARS, NOSE, THROAT: Ears normal, nares patent, oropharynx clear without exudates. Moist mucous membranes. NECK: Normal range of motion, supple without lymphadenopathy, JVD, or masses. LUNGS: Breath sounds equal, clear to auscultation bilaterally. HEART: Regular rate and rhythm, normal S1 and S2 without murmur, rub or gallop. ABDOMEN: Soft, nontender, not distended, normoactive bowel sounds. MUSCULOSKELETAL: Normal range of motion at all joints. No bony deformities or tenderness. No CVA tenderness. UPPER EXTREMITIES: 2+ pulses, warm, well-perfused. No cyanosis. No clubbing. No peripheral edema. LOWER EXTREMITIES: BLE: +erythema, +tenderness on palpation of anterior oglesby, + warmth, +scaling with yellowish discoloration that extends from knees to foot. Right 2nd toe less erythematous and less cyanotic. Pulses palpable. NEUROLOGICAL: Cranial nerves II-XII intact. Normal speech. Normal gait. PSYCHIATRIC: Cooperative. Good eye contact. Appropriate mood and affect. SKIN: Warm, dry, normal turgor, no rashes or lesions noted, normal capillary refill. Laboratory Results - last 24 hr 12/20/17 12/21/17 12/21/17 21:23 06:30 06:42 WBC RBC Hgb Hct MCV MCH MCHC RDW Plt Count MPV Sodium Potassium Chloride Carbon Dioxide Anion Gap BUN Creatinine Creat Clearance w eGFR POC Glucometer 314 138 Random Glucose Calcium Random Vancomycin 11.0 L 12/21/17 12/21/17 11:10 11:10 WBC 10.4 H RBC 3.41 L Hgb 10.2 L Hct 31.8 L MCV 93.3 MCH 30.0 MCHC 32.2 RDW 16.3 H Plt Count 265 MPV 9.4 Sodium 132 L Potassium 4.0 Chloride 98 Carbon Dioxide 25 Anion Gap 9 BUN 40 H Creatinine 8.6 H* Creat Clearance w eGFR 6.43 POC Glucometer Random Glucose 314 H* Calcium 8.8 Random Vancomycin Active Medications Generic Name Dose Route Start Last Admin Trade Name Freq PRN Reason Stop Dose Admin Albuterol Sulfate 2 puff 12/15/17 06:46 Ventolin Hfa Inhaler - IH Q4H PRN SHORTNESS OF BREATH Aspirin 81 mg 12/15/17 10:00 12/20/17 11:36 Asa - PO 81 mg DAILY [facility] Administration Atorvastatin Calcium 80 mg 12/14/17 22:00 12/20/17 21:18 Lipitor - PO 80 mg HS [facility] Administration Calcium Acetate 1,334 mg 12/15/17 08:00 12/21/17 08:41 Phoslo - PO 1,334 mg TIDCM [facility] Administration Carvedilol 6.25 mg 12/14/17 22:00 12/20/17 21:18 Coreg - PO 6.25 mg BID [facility] Administration Cholecalciferol 2,000 unit 12/15/17 10:00 12/20/17 11:36 Vitamin D3 - PO 2,000 unit DAILY [facility] Administration Collagenase 1 applic 12/16/17 10:00 12/20/17 11:41 Santyl - TP 1 applic DAILY [facility] Administration Protocol Docusate Sodium 300 mg 12/14/17 22:00 Colace - PO HS PRN CONSTIPATION Heparin Sodium (Porcine) 5,000 unit 12/14/17 18:00 12/20/17 01:02 Heparin - SQ 5,000 unit Q8H-IV [facility] Administration Piperacillin Sod/Tazobactam 50 mls @ 100 mls/hr 12/16/17 10:00 12/21/17 11:00 Sod 2.25 gm/ Dextrose IVPB Not Given Q8H-IV [facility] Protocol Insulin Aspart 1 vial 12/14/17 22:00 12/21/17 06:44 Novolog Vial Sliding Scale - SQ Not Given ACHS [facility] Protocol Lactobacillus Acidophilus 1 tab 12/19/17 12:15 12/20/17 11:36 Bacid - PO 1 tab DAILY [facility] Administration Multi-Ingredient Lotion 1 applic 12/19/17 16:48 12/20/17 21:21 Eucerin (Small Jar) - TP 1 applic BID [facility] Administration Ondansetron HCl 4 mg 12/20/17 16:21 Zofran Injection IVPUSH Q6H PRN NAUSEA AND/OR VOMITING Pantoprazole Sodium 20 mg 12/15/17 10:00 12/20/17 11:36 Protonix - PO 20 mg DAILY [facility] Administration Pregabalin 100 mg 12/15/17 10:00 12/20/17 11:36 Lyrica - PO 100 mg DAILY [facility] Administration ASSESSMENT/PLAN: Patient is a 57 year old male with past medical history of anemia, asthma, COPD , DM, HTN, ESRD (HD TTS), PVD, and CVA, presented with Right leg pain. #RLE cellulitis -Triphasic bone scan - negative for osteomyelitis -Angiogram - calcified femoral, popliteal and tibial arteries. No stenosis identified, anterior tibial runoff to dorsalis pedis and plantar arch -Vanc/Zosyn given at the ED. Ertapenem 1gm once given. -Previous wound Cx - MRSA, ESBL, A. baumanii -Xray of the right foot -no fractures or bone destruction -Duplex US of b/l legs - no DVT -LE US done - pending final read -Podiatry (Dr. Alcantara) consulted.Recommendations appreciated. -s/p excisional debridement of right 2nd digit diabetic ulcer to subcutaneous tissue -IV abx per ID -Discussed case with Dr. Sheets, has small vessel disease without any occlusive disease for repair. -Discussed treatment options with patient. He is quite reluctant to have toe amputation at this point and wants to treat conservatively and see how things play out. -Rx dakins wet to dry dressing to R 2nd digit. -Upon discharge will f/u with me in wound healing center. -ID (Dr. Giron) consulted. Recommendations appreciated. -Vancomycin - dose adjusted by levels -Zosyn 2.25g q8h started. -Patient no amenable to amputation of second toe. -d/w podiatry, scheduled for amputation on Monday. -Vascular surgery (Dr. Sheets) consulted. Recommendations appreciated. -PVRs/ALEJANDRA done -Continue HD via left UE fistula #ESRD on HD -On HD TTS -Neurology (Dr. Win) consulted. -Avoid nephrotoxic agents such as NSAIDs, aminoglycosides, or contrast #Diarrhea -patient took stool softeners last night -Stool cx, wbc, c.diff ordered -probiotics started. #DM -hold Januvia -BGM ACHS -Implement insulin sliding scale #HTN -Continue Torsemide 80 mg daily, Coreg 6.25 BID #Hx of CVA -Continue ASA 81, Atorvastatin 80mg #HOLLY -on CPAP #COPD -Albuterol Inh PRN #FEN -Not on any standing fluids -Encourage increased oral fluid intake -Electrolytes wnl, routine bmp monitoring -diabetic/sodium diet #Prophylaxis -Heparin 5000units sq tid #Disposition -full code -admit to med-surg Visit type - Emergency Visit Emergency Visit: Yes ED Registration Date: 12/14/17 Care time: The patient presented to the Emergency Department on the above date and was hospitalized for further evaluation of their emergent condition. - New Patient This patient is new to me today: Yes Date on this admission: 12/21/17 - Critical Care Critical Care patient: No
[2017-12-21] MEDS ORDERED: VANCOMYCIN 1 GRAM (PRE-DOCKED) 1,000 MG/250 ML BAG IVPB ONE (15:03)
--- NOTE | 2017-12-21 15:56 | PN ---
Progress Note (short form) - Note Progress Note: no complaints Vital Signs Period Temp Pulse Resp BP Sys/Leon Pulse Ox Last 24 Hr 98.1 F-99.2 F 74-108 16-20 104-125/60-75 97-97 toe remains the same, bluish and discolored with serous drainage , erythema of the next 2 toes CBC, BMP 12/21/17 11:10 12/21/17 11:10 Microbiology 12/14/17 12:45 Blood - Peripheral Venous Blood Culture - Final NO GROWTH AFTER 5 DAYS INCUBATION 12/14/17 12:45 Blood - Peripheral Venous Blood Culture - Final NO GROWTH AFTER 5 DAYS INCUBATION xray no bony changes a/p thigh cellulitis resolved second toe with erythema and drainage unchanged-- continue vancomycin by levels , continue zosyn agreeable to amputation of the second toe d/w podiatry amputation on monday Problem List - Problems (1) Cellulitis Code(s): L03.90 - CELLULITIS, UNSPECIFIED (2) Right second toe ulcer Code(s): L97.519 - NON-PRS CHRONIC ULCER OTH PRT RIGHT FOOT W UNSP SEVERITY (3) Diabetes mellitus Code(s): E11.9 - TYPE 2 DIABETES MELLITUS WITHOUT COMPLICATIONS Qualifiers: Diabetes mellitus type: type 2 (4) MDRO (multiple drug resistant organisms) resistance Code(s): Z16.35 - RESISTANCE TO MULTIPLE ANTIMICROBIAL DRUGS
[2017-12-21] MEDS: PREGABALIN 100 MG CAPSULE PO SCH (15:59)
[2017-12-21] MEDS: CHOLECALCIFEROL (VITAMIN D3) 1,000 UNIT TABLET (FP) PO SCH (15:59)
[2017-12-21] MEDS: LACTOBACILLUS ACIDOPHILUS 1 TABLET PO SCH (16:00)
[2017-12-21] MEDS: ASPIRIN 81 MG CHEWABLE TABLETS PO SCH (16:00)
[2017-12-21] MEDS: PANTOPRAZOLE 20 MG TABLET (FP) PO SCH (16:00)
--- NOTE | 2017-12-21 17:01 | PN ---
Progress Note, Physician History of Present Illness: Pt seen and examined at bedside. He is tolerating HD. - Current Medication List Current Medications: Active Medications Albuterol Sulfate (Ventolin Hfa Inhaler -) 2 puff IH Q4H PRN PRN Reason: SHORTNESS OF BREATH Aspirin (Asa -) 81 mg PO DAILY [facility] Last Admin: 12/21/17 16:00 Dose: 81 mg Atorvastatin Calcium (Lipitor -) 80 mg PO HS [facility] Last Admin: 12/20/17 21:18 Dose: 80 mg Calcium Acetate (Phoslo -) 1,334 mg PO TIDCM [facility] Last Admin: 12/21/17 16:31 Dose: Not Given Carvedilol (Coreg -) 6.25 mg PO BID [facility] Last Admin: 12/21/17 11:01 Dose: Not Given Cholecalciferol (Vitamin D3 -) 2,000 unit PO DAILY [facility] Last Admin: 12/21/17 15:59 Dose: 2,000 unit Collagenase (Santyl -) 1 applic TP DAILY [facility]; Protocol Last Admin: 12/21/17 10:05 Dose: 1 applic Docusate Sodium (Colace -) 300 mg PO HS PRN PRN Reason: CONSTIPATION Heparin Sodium (Porcine) (Heparin -) 5,000 unit SQ Q8H-IV [facility] Last Admin: 12/21/17 11:00 Dose: Not Given Piperacillin Sod/Tazobactam (Sod 2.25 gm/ Dextrose) 50 mls @ 100 mls/hr IVPB Q6H-IV [facility]; Protocol Last Admin: 12/21/17 16:30 Dose: Not Given Insulin Aspart (Novolog Vial Sliding Scale -) 1 vial SQ ACHS [facility]; Protocol Last Admin: 12/21/17 16:05 Dose: 4 units Lactobacillus Acidophilus (Bacid -) 1 tab PO DAILY [facility] Last Admin: 12/21/17 16:00 Dose: 1 tab Multi-Ingredient Lotion (Eucerin (Small Jar) -) 1 applic TP BID [facility] Last Admin: 12/21/17 10:04 Dose: 1 applic Ondansetron HCl (Zofran Injection) 4 mg IVPUSH Q6H PRN PRN Reason: NAUSEA AND/OR VOMITING Pantoprazole Sodium (Protonix -) 20 mg PO DAILY [facility] Last Admin: 12/21/17 16:00 Dose: 20 mg Pregabalin (Lyrica -) 100 mg PO DAILY [facility] Last Admin: 12/21/17 15:59 Dose: 100 mg Sodium Hypochlorite (Dakin's Solution 0.25% (Half-Strength) -) 1 applic TP DAILY [facility] - Objective Vital Signs: Vital Signs Temperature 98.7 F 12/21/17 15:52 Pulse Rate 93 H 12/21/17 15:52 Respiratory Rate 18 12/21/17 15:52 Blood Pressure 136/67 12/21/17 15:52 O2 Sat by Pulse Oximetry (%) 97 12/21/17 09:00 Constitutional: Yes: Calm Eyes: Yes: Conjunctiva Clear HENT: Yes: Atraumatic Neck: Yes: Supple Cardiovascular: Yes: S1, S2 Respiratory: Yes: CTA Bilaterally Gastrointestinal: Yes: Soft, Abdomen, Obese Genitourinary: Yes: WNL Musculoskeletal: Yes: WNL Edema: Yes Edema: LLE: 1+, RLE: 1+ Neurological: Yes: Oriented Psychiatric: Yes: Oriented Labs: CBC, BMP 12/21/17 11:10 12/21/17 11:10 INR, PTT INR 1.12 (0.83-1.09) H 12/14/17 13:25 Problem List - Problems (1) Cellulitis Code(s): L03.90 - CELLULITIS, UNSPECIFIED (2) Diabetes mellitus Code(s): E11.9 - TYPE 2 DIABETES MELLITUS WITHOUT COMPLICATIONS Qualifiers: Diabetes mellitus type: type 2 (3) ESRD (end stage renal disease) Code(s): N18.6 - END STAGE RENAL DISEASE (4) HLD (hyperlipidemia) Code(s): E78.5 - HYPERLIPIDEMIA, UNSPECIFIED (5) HTN (hypertension) Code(s): I10 - ESSENTIAL (PRIMARY) HYPERTENSION (6) Lymph edema Code(s): I89.0 - LYMPHEDEMA, NOT ELSEWHERE CLASSIFIED (7) Morbid obesity Code(s): E66.01 - MORBID (SEVERE) OBESITY DUE TO EXCESS CALORIES Assessment/Plan Current Medications Generic Name Dose Route Start Last Admin Trade Name Freq PRN Reason Stop Dose Admin Albuterol Sulfate 2 puff 12/15/17 06:46 Ventolin Hfa Inhaler - IH Q4H PRN SHORTNESS OF BREATH Aspirin 81 mg 12/15/17 10:00 12/21/17 16:00 Asa - PO 81 mg DAILY [facility] Administration Atorvastatin Calcium 80 mg 12/14/17 22:00 12/20/17 21:18 Lipitor - PO 80 mg HS [facility] Administration Calcium Acetate 1,334 mg 12/15/17 08:00 12/21/17 16:31 Phoslo - PO Not Given TIDCM [facility] Carvedilol 6.25 mg 12/14/17 22:00 12/21/17 11:01 Coreg - PO Not Given BID [facility] Cholecalciferol 2,000 unit 12/15/17 10:00 12/21/17 15:59 Vitamin D3 - PO 2,000 unit DAILY [facility] Administration Collagenase 1 applic 12/16/17 10:00 12/21/17 10:05 Santyl - TP 1 applic DAILY [facility] Administration Protocol Docusate Sodium 300 mg 12/14/17 22:00 Colace - PO HS PRN CONSTIPATION Heparin Sodium (Porcine) 5,000 unit 12/14/17 18:00 12/21/17 11:00 Heparin - SQ Not Given Q8H-IV [facility] Piperacillin Sod/Tazobactam 50 mls @ 100 mls/hr 12/21/17 16:15 12/21/17 16:30 Sod 2.25 gm/ Dextrose IVPB Not Given Q6H-IV [facility] Protocol Insulin Aspart 1 vial 12/14/17 22:00 12/21/17 16:05 Novolog Vial Sliding Scale - SQ 4 units ACHS [facility] Administration Protocol Lactobacillus Acidophilus 1 tab 12/19/17 12:15 12/21/17 16:00 Bacid - PO 1 tab DAILY [facility] Administration Multi-Ingredient Lotion 1 applic 12/19/17 16:48 12/21/17 10:04 Eucerin (Small Jar) - TP 1 applic BID [facility] Administration Ondansetron HCl 4 mg 12/20/17 16:21 Zofran Injection IVPUSH Q6H PRN NAUSEA AND/OR VOMITING Pantoprazole Sodium 20 mg 12/15/17 10:00 12/21/17 16:00 Protonix - PO 20 mg DAILY [facility] Administration Pregabalin 100 mg 12/15/17 10:00 12/21/17 15:59 Lyrica - PO 100 mg DAILY [facility] Administration Sodium Hypochlorite 1 applic 12/22/17 10:00 Dakin's Solution 0.25% (Half-Strength) - TP DAILY [facility] Impression 1. ESRD 2. anemia 3. HTN 4. morbid obesity 5. CVA 6. hyperlipidemia 7. proteinuria - nephrotic 8. PVD 9. foot ulcer Plan - HD today - cont wound care - abx per ID - epogen for anemia - follow up nuclear scan results - will follow Dr Win
--- NOTE | 2017-12-21 18:49 | PN ---
Teaching Attending Note Name of Resident: Barbara Nuñez ATTENDING PHYSICIAN STATEMENT I saw and evaluated the patient. I reviewed the resident's note and discussed the case with the resident. I agree with the resident's findings and plan as documented. SUBJECTIVE:no pain in leg or foot. states diarrhea is worse today, more frequent. denies CP, SOB, fever, chills, N/v OBJECTIVE: Last Vital Signs Temp Pulse Resp BP Pulse Ox 98.7 F 93 H 18 136/67 97 12/21/17 15:52 12/21/17 15:52 12/21/17 15:52 12/21/17 15:52 12/21/17 09:00 General NAD abdomen soft NT/ND obese Extremities RLE no erythema or tenderness, chronic skin changes B/L LE ASSESSMENT AND PLAN: 57 yo M with pMHx anemia, asthma, COPD, DM, HTN, ESRD (HD TTS), PVD, and CVA, presented with Right leg pain amd found to have RLE cellulitis 1. RLE cellulitis, r/o 2nd toe OM- s/p debridement on 12/16. unable to obtain MRI due to body weight. Bone scan is negative for OM. spoke with podiatry and pt would benefit from HBO therapy. will need to d/w ID about abx selection. preferrably something that can be done with HD. will need HBO in specialized center due to patients size. Podiatry to arrange. on Vanco/zosyn. dosed by level. vascular and ID on board 2. Diarrhea- likely abx assoc diarrhea. no fevers or abdominal pain. will check for cdiff as been on prolonged abx. on bacid. 3. ESRD on HD- resume normal schedule. renal on board. does NOT want renal diet. will switch to diabetic. dietary consult 4. NIDDM- hold oral agents. iss and BGM 5. HTN- controlled 6. H/o Right TMA (Wound with ESBL/MRSA) 7. COPD 8. HOLLY on CPAP 9. DVT ppx- Hep sq
[2017-12-21] MEDS: ATORVASTATIN CA 80 MG TABLET (FP) PO SCH (23:11)
[2017-12-22] MEDS ORDERED: DEXTROSE 5%-WATER - 50 ML IVPB ONE ×4 (00:12→23:04)
[2017-12-22] MEDS ORDERED: PIPERACILLIN/TAZOBACTAM 2.25 GM VIAL IVPB ONE ×4 (00:12→23:04)
[2017-12-22] MEDS: HEPARIN NA (PORCINE) 5,000 UNITS/ML 1ML VIAL SQ SCH ×3 (03:29→18:00)
[2017-12-22] MEDS: PIPERACILLIN/TAZOB 2.25 GM 2.25 GM in DEXTROSE 5%-WATER - 50 ML IVPB SCH ×5 (03:29→23:07)
[2017-12-22] MEDS ORDERED: INSULIN (NOVOLOG) ASPART 100 UNITS/ML 10ML VIAL ONE ×4 (06:56→21:27)
[2017-12-22] MEDS: INSULIN SLIDING SCALE (NOVOLOG) 1 VIAL SQ SCH ×4 (06:59→21:32)
[2017-12-22] MEDS: CALCIUM ACETATE 667 MG CAPSULE (FP) PO SCH ×3 (08:06→16:51)
[2017-12-22 08:09] LABS: HEMATOCRIT 31.3 % (35.4-49); HEMOGLOBIN 10.3 GM/dL (11.7-16.9); MCH 30.5 pg (25.7-33.7); MEAN CELL VOLUME 92.6 fl (80-96); MEAN PLT VOLUME 9.4 fl (7.5-11.1); PLATELET COUNT 267 K/MM3 (134-434); RBC 3.38 M/mm3 (4.00-5.60); WHITE BLOOD COUNT 7.5 K/mm3 (4.0-10.0)
[2017-12-22 09:04] LABS: ANION GAP 11 MMOL/L (8-16); BLOOD UREA NITROGEN 27 mg/dL (7-18); CALCIUM 8.2 mg/dL (8.5-10.1); CHLORIDE 99 mmol/L (98-107); CO2 28 mmol/L (21-32); CREATININE 6.2 mg/dL (0.55-1.3); GLUCOSE,RANDOM 122 mg/dL (74-106); POTASSIUM 3.9 mmol/L (3.5-5.1); SODIUM 138 mmol/L (136-145)
[2017-12-22] MEDS: CARVEDILOL 6.25 MG TABLET (FP) PO SCH ×2 (09:28→21:33)
[2017-12-22] MEDS: PANTOPRAZOLE 20 MG TABLET (FP) PO SCH (09:28)
[2017-12-22] MEDS: ASPIRIN 81 MG CHEWABLE TABLETS PO SCH (09:28)
[2017-12-22] MEDS: CHOLECALCIFEROL (VITAMIN D3) 1,000 UNIT TABLET (FP) PO SCH (09:28)
[2017-12-22] MEDS: LACTOBACILLUS ACIDOPHILUS 1 TABLET PO SCH (09:28)
[2017-12-22] MEDS: PREGABALIN 100 MG CAPSULE PO SCH (09:28)
[2017-12-22] MEDS: MINERAL OIL/PETROLAT/WATER TOPICAL CREAM 113 GM JAR TP SCH ×2 (09:29→21:33)
[2017-12-22] MEDS: SODIUM HYPOCHLORITE 0.25%- 473 ML BULK BOTTLE TP SCH (09:31)
[2017-12-22] MEDS: COLLAGENASE CLOSTRIDIUM HIST. 30 GRAMS TUBE TP SCH (09:31)
[2017-12-22] MEDS ORDERED: SODIUM CHLORIDE 250 ML IV PRN (10:00)
--- NOTE | 2017-12-22 13:02 | PN ---
Physical Exam: SUBJECTIVE: Patient seen and examined at bedside this morning. No acute events overnight. Patient has no new complaints. OBJECTIVE: Vital Signs Period Temp Pulse Resp BP Sys/Leon Pulse Ox Last 24 Hr 98.2 F-98.7 F 74-98 18-21 97-136/60-73 97-97 GENERAL: Awake, alert, and fully oriented, in no acute distress. HEAD: Normal with no signs of trauma. EYES: PERRLA, EOMI, sclera anicteric, conjunctiva clear. EARS, NOSE, THROAT: Ears normal, nares patent, oropharynx clear without exudates. Moist mucous membranes. NECK: Normal range of motion, supple without lymphadenopathy, JVD, or masses. LUNGS: Breath sounds equal, clear to auscultation bilaterally. HEART: Regular rate and rhythm, normal S1 and S2 without murmur, rub or gallop. ABDOMEN: Soft, nontender, not distended, normoactive bowel sounds. MUSCULOSKELETAL: Normal range of motion at all joints. No bony deformities or tenderness. No CVA tenderness. UPPER EXTREMITIES: 2+ pulses, warm, well-perfused. No cyanosis. No clubbing. No peripheral edema. LOWER EXTREMITIES: BLE: +erythema, +tenderness on palpation of anterior [place], + warmth, +scaling with yellowish discoloration that extends from knees to foot. Right 2nd toe less erythematous and less cyanotic. Pulses palpable. NEUROLOGICAL: Cranial nerves II-XII intact. Normal speech. Normal gait. PSYCHIATRIC: Cooperative. Good eye contact. Appropriate mood and affect. SKIN: Warm, dry, normal turgor, no rashes or lesions noted, normal capillary refill. Laboratory Results - last 24 hr 12/21/17 12/21/17 12/22/17 15:06 23:35 06:50 WBC 7.5 RBC 3.38 L Hgb 10.3 L Hct 31.3 L MCV 92.6 MCH 30.5 MCHC 33.0 RDW 16.0 H Plt Count 267 MPV 9.4 Sodium Potassium Chloride Carbon Dioxide Anion Gap BUN Creatinine Creat Clearance w eGFR POC Glucometer 271 266 Random Glucose Calcium 12/22/17 12/22/17 12/22/17 06:50 06:51 11:23 WBC RBC Hgb Hct MCV MCH MCHC RDW Plt Count MPV Sodium 138 Potassium 3.9 Chloride 99 Carbon Dioxide 28 Anion Gap 11 BUN 27 H Creatinine 6.2 H Creat Clearance w eGFR 9.38 POC Glucometer 121 230 Random Glucose 122 H Calcium 8.2 L Active Medications Generic Name Dose Route Start Last Admin Trade Name Nataliia PRN Reason Stop Dose Admin Albuterol Sulfate 2 puff 12/15/17 06:46 Ventolin Hfa Inhaler - IH Q4H PRN SHORTNESS OF BREATH Aspirin 81 mg 12/15/17 10:00 12/22/17 09:28 Asa - PO 81 mg DAILY [facility] Administration Atorvastatin Calcium 80 mg 12/14/17 22:00 12/21/17 23:11 Lipitor - PO 80 mg HS [facility] Administration Calcium Acetate 1,334 mg 12/15/17 08:00 12/22/17 11:46 Phoslo - PO 1,334 mg TIDCM [facility] Administration Carvedilol 6.25 mg 12/14/17 22:00 12/22/17 09:28 Coreg - PO 6.25 mg BID [facility] Administration Cholecalciferol 2,000 unit 12/15/17 10:00 12/22/17 09:28 Vitamin D3 - PO 2,000 unit DAILY [facility] Administration Collagenase 1 applic 12/16/17 10:00 12/22/17 09:31 Santyl - TP 1 applic DAILY [facility] Administration Protocol Docusate Sodium 300 mg 12/14/17 22:00 Colace - PO HS PRN CONSTIPATION Heparin Sodium (Porcine) 5,000 unit 12/14/17 18:00 12/22/17 09:29 Heparin - SQ 5,000 unit Q8H-IV [facility] Administration Piperacillin Sod/Tazobactam 50 mls @ 100 mls/hr 12/21/17 16:15 12/22/17 09:29 Sod 2.25 gm/ Dextrose IVPB 100 mls/hr Q6H-IV [facility] Administration Protocol Insulin Aspart 1 vial 12/14/17 22:00 12/22/17 11:46 Novolog Vial Sliding Scale - SQ 2 units ACHS [facility] Administration Protocol Lactobacillus Acidophilus 1 tab 12/19/17 12:15 12/22/17 09:28 Bacid - PO 1 tab DAILY [facility] Administration Multi-Ingredient Lotion 1 applic 12/19/17 16:48 12/22/17 09:29 Eucerin (Small Jar) - TP 1 applic BID [facility] Administration Ondansetron HCl 4 mg 12/20/17 16:21 Zofran Injection IVPUSH Q6H PRN NAUSEA AND/OR VOMITING Pantoprazole Sodium 20 mg 12/15/17 10:00 12/22/17 09:28 Protonix - PO 20 mg DAILY [facility] Administration Sodium Hypochlorite 1 applic 12/22/17 10:00 12/22/17 09:31 Dakin's Solution 0.25% (Half-Strength) - TP 1 applic DAILY [facility] Administration ASSESSMENT/PLAN: Patient is a 57 year old male with past medical history of anemia, asthma, COPD , DM, HTN, ESRD (HD TTS), PVD, and CVA, presented with Right leg pain. #RLE cellulitis -Triphasic bone scan - negative for osteomyelitis -Angiogram - calcified femoral, popliteal and tibial arteries. No stenosis identified, anterior tibial runoff to dorsalis pedis and plantar arch -Vanc/Zosyn given at the ED. Ertapenem 1gm once given. -Previous wound Cx - MRSA, ESBL, A. baumanii -Xray of the right foot -no fractures or bone destruction -Duplex US of b/l legs - no DVT -LE US done - pending final read -Podiatry (Dr. Alcantara) consulted.Recommendations appreciated. -s/p excisional debridement of right 2nd digit diabetic ulcer to subcutaneous tissue -IV abx per ID -Discussed case with Dr. Sheets, has small vessel disease without any occlusive disease for repair. -Rx dakins wet to dry dressing to R 2nd digit. -Upon discharge will f/u with me in wound healing center. -ID (Dr. Giron) consulted. Recommendations appreciated. -Vancomycin - dose adjusted by levels -Zosyn 2.25g q8h started. -Patient now amenable to amputation of second toe. -d/w podiatry, scheduled for amputation on Monday. -Vascular surgery (Dr. Sheets) consulted. Recommendations appreciated. -PVRs/ALEJANDRA done -Continue HD via left UE fistula #ESRD on HD -On HD TTS -Neurology (Dr. Win) consulted. -Avoid nephrotoxic agents such as NSAIDs, aminoglycosides, or contrast #Diarrhea -patient took stool softeners last night -Stool cx, wbc, c.diff ordered -probiotics started. #DM -hold Januvia -BGM ACHS -Implement insulin sliding scale #HTN -Continue Torsemide 80 mg daily, Coreg 6.25 BID #Hx of CVA -Continue ASA 81, Atorvastatin 80mg #HOLLY -on CPAP #COPD -Albuterol Inh PRN #FEN -Not on any standing fluids -Encourage increased oral fluid intake -Electrolytes wnl, routine bmp monitoring -diabetic/sodium diet #Prophylaxis -Heparin 5000units sq tid #Disposition -full code -admit to med-surg Visit type - Emergency Visit Emergency Visit: Yes ED Registration Date: 12/14/17 Care time: The patient presented to the Emergency Department on the above date and was hospitalized for further evaluation of their emergent condition. - New Patient This patient is new to me today: Yes Date on this admission: 12/22/17 - Critical Care Critical Care patient: No
--- NOTE | 2017-12-22 13:45 | PN ---
Teaching Attending Note Name of Resident: Barbara Nuñez ATTENDING PHYSICIAN STATEMENT I saw and evaluated the patient. I reviewed the resident's note and discussed the case with the resident. I agree with the resident's findings and plan as documented. SUBJECTIVE:asymptomatic. denies CP, SOB, fever, chills, N/V/C/D OBJECTIVE: Last Vital Signs Temp Pulse Resp BP Pulse Ox 98.4 F 88 20 118/67 97 12/22/17 06:00 12/22/17 06:00 12/22/17 06:00 12/22/17 06:00 12/22/17 09:00 General NAD abdomen soft NT/ND obese Extremities RLE no erythema or tenderness, chronic skin changes B/L LE ASSESSMENT AND PLAN: 57 yo M with pMHx anemia, asthma, COPD, DM, HTN, ESRD (HD TTS), PVD, and CVA, presented with Right leg pain amd found to have RLE cellulitis 1. RLE cellulitis, r/o 2nd toe OM- s/p debridement on 12/16. unable to obtain MRI due to body weight. Bone scan is negative for OM, however due to microvascular disease may not showing OM in the toe. Pt changed mind and now agreeable for amputation. Plan for Vanco/zosyn. dosed by level. vascular and ID on board 2. Diarrhea- likely abx assoc diarrhea. no fevers or abdominal pain. cdiff pending. on bacid. 3. ESRD on HD- resume normal schedule. renal on board. 4. NIDDM- hold oral agents. iss and BGM 5. HTN- controlled 6. H/o Right TMA (Wound with ESBL/MRSA) 7. COPD 8. HOLLY on CPAP 9. DVT ppx- Hep sq
--- NOTE | 2017-12-22 18:38 | PN ---
Progress Note, Physician History of Present Illness: Pt seen and examined at bedside. He is awake and alert. He denies shortness of breath. - Current Medication List Current Medications: Active Medications Albuterol Sulfate (Ventolin Hfa Inhaler -) 2 puff IH Q4H PRN PRN Reason: SHORTNESS OF BREATH Aspirin (Asa -) 81 mg PO DAILY [facility] Last Admin: 12/22/17 09:28 Dose: 81 mg Atorvastatin Calcium (Lipitor -) 80 mg PO HS [facility] Last Admin: 12/21/17 23:11 Dose: 80 mg Calcium Acetate (Phoslo -) 1,334 mg PO TIDCM [facility] Last Admin: 12/22/17 16:51 Dose: 1,334 mg Carvedilol (Coreg -) 6.25 mg PO BID [facility] Last Admin: 12/22/17 09:28 Dose: 6.25 mg Cholecalciferol (Vitamin D3 -) 2,000 unit PO DAILY [facility] Last Admin: 12/22/17 09:28 Dose: 2,000 unit Collagenase (Santyl -) 1 applic TP DAILY [facility]; Protocol Last Admin: 12/22/17 09:31 Dose: 1 applic Docusate Sodium (Colace -) 300 mg PO HS PRN PRN Reason: CONSTIPATION Heparin Sodium (Porcine) (Heparin -) 5,000 unit SQ Q8H-IV [facility] Last Admin: 12/22/17 09:29 Dose: 5,000 unit Piperacillin Sod/Tazobactam (Sod 2.25 gm/ Dextrose) 50 mls @ 100 mls/hr IVPB Q6H-IV [facility]; Protocol Last Admin: 12/22/17 15:14 Dose: 100 mls/hr Insulin Aspart (Novolog Vial Sliding Scale -) 1 vial SQ ACHS [facility]; Protocol Last Admin: 12/22/17 16:51 Dose: 6 units Lactobacillus Acidophilus (Bacid -) 1 tab PO DAILY [facility] Last Admin: 12/22/17 09:28 Dose: 1 tab Multi-Ingredient Lotion (Eucerin (Small Jar) -) 1 applic TP BID [facility] Last Admin: 12/22/17 09:29 Dose: 1 applic Ondansetron HCl (Zofran Injection) 4 mg IVPUSH Q6H PRN PRN Reason: NAUSEA AND/OR VOMITING Pantoprazole Sodium (Protonix -) 20 mg PO DAILY [facility] Last Admin: 12/22/17 09:28 Dose: 20 mg Sodium Hypochlorite (Dakin's Solution 0.25% (Half-Strength) -) 1 applic TP DAILY [facility] Last Admin: 12/22/17 09:31 Dose: 1 applic - Objective Vital Signs: Vital Signs Temperature 98.7 F 12/22/17 14:00 Pulse Rate 87 12/22/17 14:00 Respiratory Rate 20 12/22/17 14:00 Blood Pressure 139/82 12/22/17 14:00 O2 Sat by Pulse Oximetry (%) 97 12/22/17 09:00 Constitutional: Yes: Calm Eyes: Yes: Conjunctiva Clear HENT: Yes: Atraumatic Neck: Yes: Supple Cardiovascular: Yes: S1, S2 Respiratory: Yes: CTA Bilaterally Gastrointestinal: Yes: Soft, Abdomen, Obese Genitourinary: Yes: WNL Edema: Yes Edema: LLE: 1+, RLE: 1+ Neurological: Yes: Oriented Psychiatric: Yes: Oriented Labs: CBC, BMP 12/22/17 06:50 12/22/17 06:50 INR, PTT INR 1.12 (0.83-1.09) H 12/14/17 13:25 Problem List - Problems (1) Cellulitis Code(s): L03.90 - CELLULITIS, UNSPECIFIED (2) Diabetes mellitus Code(s): E11.9 - TYPE 2 DIABETES MELLITUS WITHOUT COMPLICATIONS Qualifiers: Diabetes mellitus type: type 2 (3) ESRD (end stage renal disease) Code(s): N18.6 - END STAGE RENAL DISEASE (4) HLD (hyperlipidemia) Code(s): E78.5 - HYPERLIPIDEMIA, UNSPECIFIED (5) HTN (hypertension) Code(s): I10 - ESSENTIAL (PRIMARY) HYPERTENSION (6) Lymph edema Code(s): I89.0 - LYMPHEDEMA, NOT ELSEWHERE CLASSIFIED (7) Morbid obesity Code(s): E66.01 - MORBID (SEVERE) OBESITY DUE TO EXCESS CALORIES Assessment/Plan Current Medications Generic Name Dose Route Start Last Admin Trade Name Freq PRN Reason Stop Dose Admin Albuterol Sulfate 2 puff 12/15/17 06:46 Ventolin Hfa Inhaler - IH Q4H PRN SHORTNESS OF BREATH Aspirin 81 mg 12/15/17 10:00 12/22/17 09:28 Asa - PO 81 mg DAILY [facility] Administration Atorvastatin Calcium 80 mg 12/14/17 22:00 12/21/17 23:11 Lipitor - PO 80 mg HS [facility] Administration Calcium Acetate 1,334 mg 12/15/17 08:00 12/22/17 16:51 Phoslo - PO 1,334 mg TIDCM [facility] Administration Carvedilol 6.25 mg 12/14/17 22:00 12/22/17 09:28 Coreg - PO 6.25 mg BID [facility] Administration Cholecalciferol 2,000 unit 12/15/17 10:00 12/22/17 09:28 Vitamin D3 - PO 2,000 unit DAILY [facility] Administration Collagenase 1 applic 12/16/17 10:00 12/22/17 09:31 Santyl - TP 1 applic DAILY [facility] Administration Protocol Docusate Sodium 300 mg 12/14/17 22:00 Colace - PO HS PRN CONSTIPATION Heparin Sodium (Porcine) 5,000 unit 12/14/17 18:00 12/22/17 09:29 Heparin - SQ 5,000 unit Q8H-IV [facility] Administration Piperacillin Sod/Tazobactam 50 mls @ 100 mls/hr 12/21/17 16:15 12/22/17 15:14 Sod 2.25 gm/ Dextrose IVPB 100 mls/hr Q6H-IV [facility] Administration Protocol Insulin Aspart 1 vial 12/14/17 22:00 12/22/17 16:51 Novolog Vial Sliding Scale - SQ 6 units ACHS [facility] Administration Protocol Lactobacillus Acidophilus 1 tab 12/19/17 12:15 12/22/17 09:28 Bacid - PO 1 tab DAILY [facility] Administration Multi-Ingredient Lotion 1 applic 12/19/17 16:48 12/22/17 09:29 Eucerin (Small Jar) - TP 1 applic BID [facility] Administration Ondansetron HCl 4 mg 12/20/17 16:21 Zofran Injection IVPUSH Q6H PRN NAUSEA AND/OR VOMITING Pantoprazole Sodium 20 mg 12/15/17 10:00 12/22/17 09:28 Protonix - PO 20 mg DAILY [facility] Administration Sodium Hypochlorite 1 applic 12/22/17 10:00 12/22/17 09:31 Dakin's Solution 0.25% (Half-Strength) - TP 1 applic DAILY [facility] Administration Impression 1. ESRD 2. anemia 3. HTN 4. morbid obesity 5. CVA 6. hyperlipidemia 7. proteinuria - nephrotic 8. PVD 9. foot ulcer Plan - HD tomorrow, orders written - cont abx - cont wound care - OR on Monday - epogen for anemia - will follow Dr Win
[2017-12-22] MEDS: ATORVASTATIN CA 80 MG TABLET (FP) PO SCH (21:33)
[2017-12-23] MEDS: HEPARIN NA (PORCINE) 5,000 UNITS/ML 1ML VIAL SQ SCH ×3 (01:51→17:02)
[2017-12-23] MEDS ORDERED: DEXTROSE 5%-WATER - 50 ML IVPB ONE ×4 (02:45→21:18)
[2017-12-23] MEDS ORDERED: PIPERACILLIN/TAZOBACTAM 2.25 GM VIAL IVPB ONE ×4 (02:45→21:18)
[2017-12-23] MEDS: PIPERACILLIN/TAZOB 2.25 GM 2.25 GM in DEXTROSE 5%-WATER - 50 ML IVPB SCH ×4 (02:50→21:54)
[2017-12-23] MEDS: INSULIN SLIDING SCALE (NOVOLOG) 1 VIAL SQ SCH ×4 (06:13→22:01)
--- NOTE | 2017-12-23 07:33 | PN ---
Progress Note (short form) - Note Progress Note: Podiatry F/u: Seen/evaluated at bedside NAD. AFebrile, VSS. KEEGAN: R foot: 2nd digit ischemic changes with duskiness, necrotic PIPJ ulcer, down to capsule, ischemic blistering plantar and dorsal 2nd MTPJ, no purulence, no fluctuance, no soft tissue crepitus, no tenderness to palpation. Imp: 57 year old DM, PVD M with R 2nd digit gangrene 1. IV abx per ID 2. Dakins wet to dry R foot 3. Discussed again treatment options at length. Unfortunately patient has microvascular dx and it is possible after amputation that ischemic changes can progress. The patient is waffling with decisions. He is leaning toward treating conservatively for now. He does understand that he will likely need amputation in the future. Will be on standby until patient makes decision. Amarilis Alcantara DPM
[2017-12-23] MEDS: CALCIUM ACETATE 667 MG CAPSULE (FP) PO SCH ×3 (08:30→17:02)
[2017-12-23] MEDS ORDERED: HEPARIN NA (PORCINE) 5,000 UNITS/ML 1ML VIAL IVPUSH ONE (10:00)
[2017-12-23] MEDS ORDERED: EPOETIN ALFA 3,000 UNIT/1 ML ML IVPUSH ONE (10:00)
[2017-12-23] MEDS ORDERED: PT OWN MED DRAWER 7, Y5N ONE ×2 (10:11→10:31)
[2017-12-23] MEDS: CHOLECALCIFEROL (VITAMIN D3) 1,000 UNIT TABLET (FP) PO SCH (10:15)
[2017-12-23] MEDS: LACTOBACILLUS ACIDOPHILUS 1 TABLET PO SCH (10:15)
[2017-12-23] MEDS: ASPIRIN 81 MG CHEWABLE TABLETS PO SCH (10:15)
[2017-12-23] MEDS: CARVEDILOL 6.25 MG TABLET (FP) PO SCH ×2 (10:15→21:55)
[2017-12-23] MEDS: PANTOPRAZOLE 20 MG TABLET (FP) PO SCH (10:15)
[2017-12-23] MEDS: SODIUM HYPOCHLORITE 0.25%- 473 ML BULK BOTTLE TP SCH (10:19)
[2017-12-23] MEDS: MINERAL OIL/PETROLAT/WATER TOPICAL CREAM 113 GM JAR TP SCH ×2 (10:20→21:56)
[2017-12-23] MEDS: COLLAGENASE CLOSTRIDIUM HIST. 30 GRAMS TUBE TP SCH (10:20)
--- NOTE | 2017-12-23 10:43 | PN ---
Progress Note (short form) - Note Progress Note: asymptomatic. states no pain. diarrhea improving with only 1 loose BM in past 24H. now does not want to proceed with amputation. denies CP, SOB< fever, chills , N/V/C/D Current Medications Generic Name Dose Route Start Last Admin Trade Name Freq PRN Reason Stop Dose Admin Albuterol Sulfate 2 puff 12/15/17 06:46 Ventolin Hfa Inhaler - IH Q4H PRN SHORTNESS OF BREATH Aspirin 81 mg 12/15/17 10:00 12/23/17 10:15 Asa - PO 81 mg DAILY [facility] Administration Atorvastatin Calcium 80 mg 12/14/17 22:00 12/22/17 21:33 Lipitor - PO 80 mg HS [facility] Administration Calcium Acetate 1,334 mg 12/15/17 08:00 12/23/17 08:30 Phoslo - PO 1,334 mg TIDCM [facility] Administration Carvedilol 6.25 mg 12/14/17 22:00 12/23/17 10:15 Coreg - PO 6.25 mg BID [facility] Administration Cholecalciferol 2,000 unit 12/15/17 10:00 12/23/17 10:15 Vitamin D3 - PO 2,000 unit DAILY [facility] Administration Collagenase 1 applic 12/16/17 10:00 12/23/17 10:20 Santyl - TP 1 applic DAILY [facility] Administration Protocol Docusate Sodium 300 mg 12/14/17 22:00 Colace - PO HS PRN CONSTIPATION Heparin Sodium (Porcine) 5,000 unit 12/14/17 18:00 12/23/17 10:14 Heparin - SQ 5,000 unit Q8H-IV [facility] Administration Piperacillin Sod/Tazobactam 50 mls @ 100 mls/hr 12/21/17 16:15 12/23/17 08:30 Sod 2.25 gm/ Dextrose IVPB 100 mls/hr Q6H-IV [facility] Administration Protocol Insulin Aspart 1 vial 12/14/17 22:00 12/23/17 06:13 Novolog Vial Sliding Scale - SQ Not Given ACHS [facility] Protocol Lactobacillus Acidophilus 1 tab 12/19/17 12:15 12/23/17 10:15 Bacid - PO 1 tab DAILY [facility] Administration Multi-Ingredient Lotion 1 applic 12/19/17 16:48 12/23/17 10:20 Eucerin (Small Jar) - TP 1 applic BID [facility] Administration Ondansetron HCl 4 mg 12/20/17 16:21 Zofran Injection IVPUSH Q6H PRN NAUSEA AND/OR VOMITING Pantoprazole Sodium 20 mg 12/15/17 10:00 12/23/17 10:15 Protonix - PO 20 mg DAILY [facility] Administration Sodium Hypochlorite 1 applic 12/22/17 10:00 12/23/17 10:19 Dakin's Solution 0.25% (Half-Strength) - TP 1 applic DAILY [facility] Administration Last Vital Signs Temp Pulse Resp BP Pulse Ox 98.8 F 76 20 129/63 97 12/23/17 05:34 12/23/17 05:34 12/23/17 05:34 12/23/17 05:34 12/22/17 21:00 General NAD abdomen soft NT/ND obese Extremities RLE no erythema or tenderness, chronic skin changes B/L LE Microbiology 12/21/17 21:00 Salmonella/Shigella Culture - Preliminary Stool NO ENTERIC PATHOGENS, 24 HOURS, ON PRIMARY PLATES Yersinia Culture - Preliminary NO ENTERIC PATHOGENS, 24 HOURS, ON PRIMARY PLATES Vibrio Culture - Final Escherichia coli 0157 Culture - Final NO GROWTH OF E COLI 0157 OBTAINED 12/21/17 21:00 Gram Stain - Final Stool 12/21/17 21:00 Clostridium difficile Antigen (JAMAAL) - Final Stool Clostridium difficile Toxin Assay - Final ASSESSMENT AND PLAN: 57 yo M with pMHx anemia, asthma, COPD, DM, HTN, ESRD (HD TTS), PVD, and CVA, presented with Right leg pain amd found to have RLE cellulitis 1. RLE cellulitis, r/o 2nd toe OM- s/p debridement on 12/16. unable to obtain MRI due to body weight. Bone scan is negative for OM, however due to microvascular disease may not showing OM in the toe. now does NOT want to proceed with surgery. will like to attempt medical management with ABx and HBO therapy. understands there is a high liklihood he will need amputation in the future. will d/w ID about abx selection. on Vanco/zosyn. dosed by level. vascular and ID on board 2. Diarrhea- likely abx assoc diarrhea. no fevers or abdominal pain. cdiff negative. on bacid. 3. ESRD on HD- resume normal schedule. renal on board. 4. NIDDM- hold oral agents. iss and BGM 5. HTN- controlled 6. H/o Right TMA (Wound with ESBL/MRSA) 7. COPD 8. HOLLY on CPAP 9. DVT ppx- Hep sq Visit type - Emergency Visit Emergency Visit: Yes ED Registration Date: 12/14/17 Care time: The patient presented to the Emergency Department on the above date and was hospitalized for further evaluation of their emergent condition. - New Patient This patient is new to me today: No - Critical Care Critical Care patient: No - Discharge Referral Referred to [facility] Med P.C.: No
[2017-12-23] MEDS ORDERED: VANCOMYCIN 1 GRAM (PRE-DOCKED) 1,000 MG/250 ML BAG IVPB ONE (11:34)
[2017-12-23 11:40] LABS: HEMATOCRIT 30.5 % (35.4-49); HEMOGLOBIN 9.8 GM/dL (11.7-16.9); MCH 30.1 pg (25.7-33.7); MCHC 32.2 g/dl (32.0-35.9); MEAN CELL VOLUME 93.6 fl (80-96); MEAN PLT VOLUME 9.4 fl (7.5-11.1); PLATELET COUNT 248 K/MM3 (134-434); RBC 3.26 M/mm3 (4.00-5.60); RDW 16.3 % (11.9-15.9); WHITE BLOOD COUNT 9.8 K/mm3 (4.0-10.0)
[2017-12-23 11:45] LABS: ANION GAP 10 MMOL/L (8-16); BLOOD UREA NITROGEN 35 mg/dL (7-18); CALCIUM 8.2 mg/dL (8.5-10.1); CHLORIDE 98 mmol/L (98-107); CO2 28 mmol/L (21-32); GLUCOSE,RANDOM 300 mg/dL (74-106); POTASSIUM 4.1 mmol/L (3.5-5.1); SODIUM 136 mmol/L (136-145)
--- NOTE | 2017-12-23 15:12 | PN ---
Progress Note (short form) - Note Progress Note: no complaints Vital Signs Period Temp Pulse Resp BP Sys/Leon Pulse Ox Last 24 Hr 98.5 F-98.8 F 71-91 18-22 112-135/63-88 97 cor-rrr lungs clear abd soft,nt ext toe still discolored, no drainage today CBC, BMP 12/23/17 11:00 Microbiology 12/21/17 21:00 Stool Salmonella/Shigella Culture - Preliminary NO ENTERIC PATHOGENS, 24 HOURS, ON PRIMARY PLATES 12/21/17 21:00 Stool Yersinia Culture - Preliminary NO ENTERIC PATHOGENS, 24 HOURS, ON PRIMARY PLATES 12/21/17 21:00 Stool Vibrio Culture - Final 12/21/17 21:00 Stool Escherichia coli 0157 Culture - Final NO GROWTH OF E COLI 0157 OBTAINED 12/21/17 21:00 Stool Gram Stain - Final 12/21/17 21:00 Stool Clostridium difficile Antigen (JAMAAL) - Final 12/21/17 21:00 Stool Clostridium difficile Toxin Assay - Final 12/14/17 12:45 Blood - Peripheral Venous Blood Culture - Final NO GROWTH AFTER 5 DAYS INCUBATION 12/14/17 12:45 Blood - Peripheral Venous Blood Culture - Final NO GROWTH AFTER 5 DAYS INCUBATION xray no bony changes bone scan no osteomyelitis a/p thigh cellulitis resolved second toe with erythema and drainage unchanged-- continue vancomycin by levels , continue zosyn microvascular disease reconsidering what to do Problem List - Problems (1) Cellulitis Code(s): L03.90 - CELLULITIS, UNSPECIFIED (2) Right second toe ulcer Code(s): L97.519 - NON-PRS CHRONIC ULCER OTH PRT RIGHT FOOT W UNSP SEVERITY (3) Diabetes mellitus Code(s): E11.9 - TYPE 2 DIABETES MELLITUS WITHOUT COMPLICATIONS Qualifiers: Diabetes mellitus type: type 2 (4) MDRO (multiple drug resistant organisms) resistance Code(s): Z16.35 - RESISTANCE TO MULTIPLE ANTIMICROBIAL DRUGS
[2017-12-23 15:21] LABS: CREATININE 3.3 mg/dL (0.55-1.3)
[2017-12-23] MEDS ORDERED: INSULIN (NOVOLOG) ASPART 100 UNITS/ML 10ML VIAL ONE ×2 (17:00→21:17)
--- NOTE | 2017-12-23 19:33 | PN ---
Progress Note (short form) - Note Progress Note: covering dr daniels Impression 1. ESRD 2. anemia 3. HTN 4. morbid obesity 5. CVA 6. hyperlipidemia 7. proteinuria - nephrotic 8. PVD 9. foot ulcer s/p HD treatment was uneventful july dialyze on monday Pre-Op Current Medications Albuterol Sulfate (Ventolin Hfa Inhaler -) 2 puff IH Q4H PRN PRN Reason: SHORTNESS OF BREATH Aspirin (Asa -) 81 mg PO DAILY [facility] Last Admin: 12/23/17 10:15 Dose: 81 mg Atorvastatin Calcium (Lipitor -) 80 mg PO HS [facility] Last Admin: 12/22/17 21:33 Dose: 80 mg Calcium Acetate (Phoslo -) 1,334 mg PO TIDCM [facility] Last Admin: 12/23/17 17:02 Dose: 1,334 mg Carvedilol (Coreg -) 6.25 mg PO BID [facility] Last Admin: 12/23/17 10:15 Dose: 6.25 mg Cholecalciferol (Vitamin D3 -) 2,000 unit PO DAILY [facility] Last Admin: 12/23/17 10:15 Dose: 2,000 unit Collagenase (Santyl -) 1 applic TP DAILY [facility]; Protocol Last Admin: 12/23/17 10:20 Dose: 1 applic Docusate Sodium (Colace -) 300 mg PO HS PRN PRN Reason: CONSTIPATION Heparin Sodium (Porcine) (Heparin -) 5,000 unit SQ Q8H-IV [facility] Last Admin: 12/23/17 17:02 Dose: 5,000 unit Piperacillin Sod/Tazobactam (Sod 2.25 gm/ Dextrose) 50 mls @ 100 mls/hr IVPB Q6H-IV [facility]; Protocol Last Admin: 12/23/17 15:46 Dose: 100 mls/hr Insulin Aspart (Novolog Vial Sliding Scale -) 1 vial SQ ACHS [facility]; Protocol Last Admin: 12/23/17 17:03 Dose: 6 units Lactobacillus Acidophilus (Bacid -) 1 tab PO DAILY [facility] Last Admin: 12/23/17 10:15 Dose: 1 tab Multi-Ingredient Lotion (Eucerin (Small Jar) -) 1 applic TP BID [facility] Last Admin: 12/23/17 10:20 Dose: 1 applic Ondansetron HCl (Zofran Injection) 4 mg IVPUSH Q6H PRN PRN Reason: NAUSEA AND/OR VOMITING Pantoprazole Sodium (Protonix -) 20 mg PO DAILY [facility] Last Admin: 12/23/17 10:15 Dose: 20 mg Sodium Hypochlorite (Dakin's Solution 0.25% (Half-Strength) -) 1 applic TP DAILY [facility] Last Admin: 12/23/17 10:19 Dose: 1 applic Last Vital Signs Temp Pulse Resp BP Pulse Ox 98.8 F 69 18 127/72 97 12/23/17 05:34 12/23/17 15:15 12/23/17 15:15 12/23/17 15:15 12/22/17 21:00 lungs clear heart reg abd soft nontender ext edema redness CBC, BMP 12/23/17 11:00 12/23/17 15:00 IMP 1. ESRD on HD 2. anemia 3. HTN 4. morbid obesity 5. CVA 6. hyperlipidemia 7. proteinuria - nephrotic 8. PVD 9. foot ulcer Plan- hd in am
[2017-12-23] MEDS: ATORVASTATIN CA 80 MG TABLET (FP) PO SCH (21:55)
[2017-12-24] MEDS ORDERED: DEXTROSE 5%-WATER - 50 ML IVPB ONE ×4 (01:25→21:34)
[2017-12-24] MEDS ORDERED: PIPERACILLIN/TAZOBACTAM 2.25 GM VIAL IVPB ONE ×4 (01:25→21:33)
[2017-12-24] MEDS: PIPERACILLIN/TAZOB 2.25 GM 2.25 GM in DEXTROSE 5%-WATER - 50 ML IVPB SCH ×4 (02:43→22:51)
[2017-12-24] MEDS: HEPARIN NA (PORCINE) 5,000 UNITS/ML 1ML VIAL SQ SCH ×3 (02:45→17:25)
[2017-12-24] MEDS: INSULIN SLIDING SCALE (NOVOLOG) 1 VIAL SQ SCH ×4 (06:18→22:56)
[2017-12-24] MEDS: CALCIUM ACETATE 667 MG CAPSULE (FP) PO SCH ×3 (08:22→17:30)
[2017-12-24] MEDS ORDERED: diphenhydrAMINE HCL 25 MG CAPSULE (FP) PO PRN (09:39)
--- NOTE | 2017-12-24 09:45 | PN ---
Teaching Attending Note Name of Resident: Barbraa Nuñez ATTENDING PHYSICIAN STATEMENT I saw and evaluated the patient. I reviewed the resident's note and discussed the case with the resident. I agree with the resident's findings and plan as documented. SUBJECTIVE:c/o pruritis on LUE and back. states hes had a rash that seems to be getting worse since hes been here and becoming increasingly pruritic. has had it in the past but now more diffuse. denies Cp, SOB, fever, chills, N/V/C/D OBJECTIVE: Last Vital Signs Temp Pulse Resp BP Pulse Ox 98.5 F 79 20 110/68 97 12/24/17 06:00 12/24/17 06:00 12/24/17 06:00 12/24/17 06:00 12/23/17 21:00 General NAD Skin skin i svery dry with patchy areas of erythema on the LUE and diffusely on the back with excoriations. ASSESSMENT AND PLAN: 57 yo M with pMHx anemia, asthma, COPD, DM, HTN, ESRD (HD TTS), PVD, and CVA, presented with Right leg pain amd found to have RLE cellulitis 1. RLE cellulitis, r/o 2nd toe OM- s/p debridement on 12/16. unable to obtain MRI due to body weight. Bone scan is negative for OM, however due to microvascular disease may not showing OM in the toe. now does NOT want to proceed with surgery. will like to attempt medical management with ABx and HBO therapy. understands there is a high likelihood he will need amputation in the future. will d/w ID about abx selection. on Vanco/zosyn. dosed by level. will d/ w ID about abx selection on discharge. will try to see if can be dosed with HD to prevent requiring tunneled catheter. vascular and ID on board 2. Diffuse rash- appears to be eczema. encouraged pt to shower as he has not since hes been here. and apply lotion throughout the body. can use benadryl prn. consider steroid cream for the arms however very diffuse and large body surface area. if does not improve with simple hygiene should see dermatology 3. Diarrhea- likely abx assoc diarrhea. no fevers or abdominal pain. only 1 BM yesterday. cdiff negative. on bacid. 4. ESRD on HD- resume normal schedule. renal on board. 5. NIDDM- hold oral agents. iss and BGM 6. HTN- controlled 7. H/o Right TMA (Wound with ESBL/MRSA) 8. COPD 9. HOLLY on CPAP 10. DVT ppx- Hep sq 11. anticipate discharge in next 24H
[2017-12-24] MEDS: ASPIRIN 81 MG CHEWABLE TABLETS PO SCH (10:52)
[2017-12-24] MEDS: CARVEDILOL 6.25 MG TABLET (FP) PO SCH ×2 (10:52→22:51)
[2017-12-24] MEDS: PANTOPRAZOLE 20 MG TABLET (FP) PO SCH (10:52)
[2017-12-24] MEDS: COLLAGENASE CLOSTRIDIUM HIST. 30 GRAMS TUBE TP SCH (10:52)
[2017-12-24] MEDS: SODIUM HYPOCHLORITE 0.25%- 473 ML BULK BOTTLE TP SCH (10:52)
[2017-12-24] MEDS: LACTOBACILLUS ACIDOPHILUS 1 TABLET PO SCH (10:52)
[2017-12-24] MEDS: MINERAL OIL/PETROLAT/WATER TOPICAL CREAM 113 GM JAR TP SCH ×2 (10:52→22:52)
[2017-12-24] MEDS: CHOLECALCIFEROL (VITAMIN D3) 1,000 UNIT TABLET (FP) PO SCH (10:53)
--- NOTE | 2017-12-24 12:57 | PN ---
Physical Exam: SUBJECTIVE: Patient seen and examined at bedside this morning. No acute events overnight. Patient OBJECTIVE: Vital Signs Period Temp Pulse Resp BP Sys/Leon Pulse Ox Last 24 Hr 98.3 F-98.5 F 69-91 18-20 103-131/56-73 97 GENERAL: Awake, alert, and fully oriented, in no acute distress. HEAD: Normal with no signs of trauma. EYES: PERRLA, EOMI, sclera anicteric, conjunctiva clear. EARS, NOSE, THROAT: Ears normal, nares patent, oropharynx clear without exudates. Moist mucous membranes. NECK: Normal range of motion, supple without lymphadenopathy, JVD, or masses. LUNGS: Breath sounds equal, clear to auscultation bilaterally. HEART: Regular rate and rhythm, normal S1 and S2 without murmur, rub or gallop. ABDOMEN: Soft, nontender, not distended, normoactive bowel sounds. MUSCULOSKELETAL: Normal range of motion at all joints. No bony deformities or tenderness. No CVA tenderness. UPPER EXTREMITIES: 2+ pulses, warm, well-perfused. No cyanosis. No clubbing. No peripheral edema. LOWER EXTREMITIES: BLE: +erythema, +tenderness on palpation of anterior ogles[place], + warmth, +scaling with yellowish discoloration that extends from knees to foot. Right 2nd toe less erythematous and less cyanotic. Pulses palpable. NEUROLOGICAL: Cranial nerves II-XII intact. Normal speech. Normal gait. PSYCHIATRIC: Cooperative. Good eye contact. Appropriate mood and affect. SKIN: Warm, dry, normal turgor, no rashes or lesions noted, normal capillary refill. Laboratory Results - last 24 hr 12/23/17 12/23/17 12/23/17 15:00 16:54 21:59 BUN 13 Creatinine 3.3 H POC Glucometer 319 302 12/24/17 12/24/17 06:17 11:19 BUN Creatinine POC Glucometer 140 196 Active Medications Generic Name Dose Route Start Last Admin Trade Name Freq PRN Reason Stop Dose Admin Albuterol Sulfate 2 puff 12/15/17 06:46 Ventolin Hfa Inhaler - IH Q4H PRN SHORTNESS OF BREATH Aspirin 81 mg 12/15/17 10:00 12/24/17 10:52 Asa - PO 81 mg DAILY [facility] Administration Atorvastatin Calcium 80 mg 12/14/17 22:00 12/23/17 21:55 Lipitor - PO 80 mg HS [facility] Administration Calcium Acetate 1,334 mg 12/15/17 08:00 12/24/17 11:22 Phoslo - PO 1,334 mg TIDCM [facility] Administration Carvedilol 6.25 mg 12/14/17 22:00 12/24/17 10:52 Coreg - PO 6.25 mg BID [facility] Administration Cholecalciferol 2,000 unit 12/15/17 10:00 12/24/17 10:53 Vitamin D3 - PO 2,000 unit DAILY [facility] Administration Collagenase 1 applic 12/16/17 10:00 12/24/17 10:52 Santyl - TP 1 applic DAILY [facility] Administration Protocol Diphenhydramine HCl 25 mg 12/24/17 09:39 12/24/17 11:23 Benadryl - PO 25 mg Q6H PRN Administration FOR ITCHING Docusate Sodium 300 mg 12/14/17 22:00 Colace - PO HS PRN CONSTIPATION Heparin Sodium (Porcine) 5,000 unit 12/14/17 18:00 12/24/17 10:52 Heparin - SQ 5,000 unit Q8H-IV [facility] Administration Piperacillin Sod/Tazobactam 50 mls @ 100 mls/hr 12/21/17 16:15 12/24/17 08:11 Sod 2.25 gm/ Dextrose IVPB 100 mls/hr Q6H-IV [facility] Administration Protocol Insulin Aspart 1 vial 12/14/17 22:00 12/24/17 11:21 Novolog Vial Sliding Scale - SQ Not Given ACHS [facility] Protocol Lactobacillus Acidophilus 1 tab 12/19/17 12:15 12/24/17 10:52 Bacid - PO 1 tab DAILY [facility] Administration Multi-Ingredient Lotion 1 applic 12/19/17 16:48 12/24/17 10:52 Eucerin (Small Jar) - TP 1 applic BID [facility] Administration Ondansetron HCl 4 mg 12/20/17 16:21 Zofran Injection IVPUSH Q6H PRN NAUSEA AND/OR VOMITING Pantoprazole Sodium 20 mg 12/15/17 10:00 12/24/17 10:52 Protonix - PO 20 mg DAILY [facility] Administration Sodium Hypochlorite 1 applic 12/22/17 10:00 12/24/17 10:52 Dakin's Solution 0.25% (Half-Strength) - TP 1 applic DAILY [facility] Administration ASSESSMENT/PLAN: Patient is a 57 year old male with past medical history of anemia, asthma, COPD , DM, HTN, ESRD (HD TTS), PVD, and CVA, presented with Right leg pain. #RLE cellulitis -Triphasic bone scan - negative for osteomyelitis -Angiogram - calcified femoral, popliteal and tibial arteries. No stenosis identified, anterior tibial runoff to dorsalis pedis and plantar arch -Vanc/Zosyn given at the ED. Ertapenem 1gm once given. -Previous wound Cx - MRSA, ESBL, A. baumanii -Xray of the right foot -no fractures or bone destruction -Duplex US of b/l legs - no DVT -LE US done - pending final read -ID (Dr. Giron) consulted. Recommendations appreciated. -Vancomycin - dose adjusted by levels -Zosyn 2.25g q8h. -Podiatry (Dr. Alcantara) consulted.Recommendations appreciated. -s/p excisional debridement of right 2nd digit diabetic ulcer to subcutaneous tissue -Rx dakins wet to dry dressing to R 2nd digit. -Discussed again treatment options at length. Unfortunately patient has microvascular dx and it is possible after amputation that ischemic changes can progress. Patient is leaning toward treating conservatively for now. -Upon discharge will f/u in wound healing center. #ESRD on HD -On HD TTS -Neurology (Dr. Win) consulted. -Avoid nephrotoxic agents such as NSAIDs, aminoglycosides, or contrast #Diarrhea: resolved -patient took stool softeners last night -Stool cx, wbc, c.diff - negative -probiotics started. #DM -hold Januvia -BGM ACHS -Implement insulin sliding scale #HTN -Continue Torsemide 80 mg daily, Coreg 6.25 BID #Hx of CVA -Continue ASA 81, Atorvastatin 80mg #HOLLY -on CPAP #COPD -Albuterol Inh PRN #FEN -Not on any standing fluids -Encourage increased oral fluid intake -Electrolytes wnl, routine bmp monitoring -diabetic diet #Prophylaxis -Heparin 5000units sq tid #Disposition -full code -admit to med-surg -For discharge tomorrow. -As per ID, will not continue with IV antibiotics as outpatient. Visit type - Emergency Visit Emergency Visit: Yes ED Registration Date: 10/11/18 Care time: The patient presented to the Emergency Department on the above date and was hospitalized for further evaluation of their emergent condition. - New Patient This patient is new to me today: Yes Date on this admission: 12/24/17 - Critical Care Critical Care patient: No
[2017-12-24] MEDS ORDERED: SODIUM CHLORIDE 250 ML IV PRN (16:59)
[2017-12-24] MEDS ORDERED: INSULIN (NOVOLOG) ASPART 100 UNITS/ML 10ML VIAL ONE ×2 (17:22→21:33)
--- NOTE | 2017-12-24 18:32 | PN ---
Progress Note (short form) - Note Progress Note: covering dr daniels Impression 1. ESRD 2. anemia 3. HTN 4. morbid obesity 5. CVA 6. hyperlipidemia 7. proteinuria - nephrotic 8. PVD 9. foot ulcer Current Medications Albuterol Sulfate (Ventolin Hfa Inhaler -) 2 puff IH Q4H PRN PRN Reason: SHORTNESS OF BREATH Aspirin (Asa -) 81 mg PO DAILY [facility] Last Admin: 12/24/17 10:52 Dose: 81 mg Atorvastatin Calcium (Lipitor -) 80 mg PO HS [facility] Last Admin: 12/23/17 21:55 Dose: 80 mg Calcium Acetate (Phoslo -) 1,334 mg PO TIDCM [facility] Last Admin: 12/24/17 17:30 Dose: 1,334 mg Carvedilol (Coreg -) 6.25 mg PO BID [facility] Last Admin: 12/24/17 10:52 Dose: 6.25 mg Cholecalciferol (Vitamin D3 -) 2,000 unit PO DAILY [facility] Last Admin: 12/24/17 10:53 Dose: 2,000 unit Collagenase (Santyl -) 1 applic TP DAILY [facility]; Protocol Last Admin: 12/24/17 10:52 Dose: 1 applic Diphenhydramine HCl (Benadryl -) 25 mg PO Q6H PRN PRN Reason: FOR ITCHING Last Admin: 12/24/17 11:23 Dose: 25 mg Docusate Sodium (Colace -) 300 mg PO HS PRN PRN Reason: CONSTIPATION Heparin Sodium (Porcine) (Heparin -) 5,000 unit SQ Q8H-IV [facility] Last Admin: 12/24/17 17:25 Dose: 5,000 unit Piperacillin Sod/Tazobactam (Sod 2.25 gm/ Dextrose) 50 mls @ 100 mls/hr IVPB Q6H-IV [facility]; Protocol Last Admin: 12/24/17 15:35 Dose: 100 mls/hr Sodium Chloride (Normal Saline -) 250 mls @ 3,000 mls/hr IV PRN PRN PRN Reason: Hypotension during Dialysis Stop: 12/25/17 17:00 Insulin Aspart (Novolog Vial Sliding Scale -) 1 vial SQ ACHS [facility]; Protocol Last Admin: 12/24/17 17:24 Dose: 4 units Lactobacillus Acidophilus (Bacid -) 1 tab PO DAILY [facility] Last Admin: 12/24/17 10:52 Dose: 1 tab Multi-Ingredient Lotion (Eucerin (Small Jar) -) 1 applic TP BID [facility] Last Admin: 12/24/17 10:52 Dose: 1 applic Ondansetron HCl (Zofran Injection) 4 mg IVPUSH Q6H PRN PRN Reason: NAUSEA AND/OR VOMITING Pantoprazole Sodium (Protonix -) 20 mg PO DAILY [facility] Last Admin: 12/24/17 10:52 Dose: 20 mg Sodium Hypochlorite (Dakin's Solution 0.25% (Half-Strength) -) 1 applic TP DAILY [facility] Last Admin: 12/24/17 10:52 Dose: 1 applic Last Vital Signs Temp Pulse Resp BP Pulse Ox 98.8 F 95 H 18 130/66 97 12/24/17 09:00 12/24/17 09:00 12/24/17 09:00 12/24/17 09:00 12/23/17 21:00 lungs clear heart reg abd soft nontender CBC, BMP 12/23/17 11:00 12/23/17 15:00 IMP 1. ESRD on HD 2. anemia 3. HTN 4. morbid obesity 5. CVA 6. hyperlipidemia 7. proteinuria - nephrotic 8. PVD 9. foot ulcer Plan- hd in am pre-op
[2017-12-24] MEDS: ATORVASTATIN CA 80 MG TABLET (FP) PO SCH (22:51)
[2017-12-24] MEDS ORDERED: ACETAMINOPHEN 325 MG TABLET (FP) PO ONE (23:37)
[2017-12-25] MEDS ORDERED: PIPERACILLIN/TAZOBACTAM 2.25 GM VIAL IVPB ONE ×2 (02:22→08:46)
[2017-12-25] MEDS ORDERED: DEXTROSE 5%-WATER - 50 ML IVPB ONE ×2 (02:23→08:46)
[2017-12-25] MEDS: PIPERACILLIN/TAZOB 2.25 GM 2.25 GM in DEXTROSE 5%-WATER - 50 ML IVPB SCH ×3 (02:32→16:24)
[2017-12-25] MEDS: HEPARIN NA (PORCINE) 5,000 UNITS/ML 1ML VIAL SQ SCH ×3 (02:32→18:32)
[2017-12-25 05:49] VITALS: BP 128/60; PULSE 68; TEMP 97.7
[2017-12-25] MEDS: INSULIN SLIDING SCALE (NOVOLOG) 1 VIAL SQ SCH ×3 (07:03→18:31)
[2017-12-25] MEDS: CALCIUM ACETATE 667 MG CAPSULE (FP) PO SCH ×3 (08:52→16:58)
[2017-12-25] MEDS: ASPIRIN 81 MG CHEWABLE TABLETS PO SCH (10:26)
[2017-12-25] MEDS: LACTOBACILLUS ACIDOPHILUS 1 TABLET PO SCH (10:26)
[2017-12-25] MEDS: CHOLECALCIFEROL (VITAMIN D3) 1,000 UNIT TABLET (FP) PO SCH (10:26)
[2017-12-25] MEDS: PANTOPRAZOLE 20 MG TABLET (FP) PO SCH (10:27)
[2017-12-25] MEDS: CARVEDILOL 6.25 MG TABLET (FP) PO SCH (10:27)
[2017-12-25] MEDS: MINERAL OIL/PETROLAT/WATER TOPICAL CREAM 113 GM JAR TP SCH (10:53)
[2017-12-25] MEDS: SODIUM HYPOCHLORITE 0.25%- 473 ML BULK BOTTLE TP SCH (11:37)
[2017-12-25] MEDS: COLLAGENASE CLOSTRIDIUM HIST. 30 GRAMS TUBE TP SCH (11:37)
[2017-12-25 11:59] VITALS: BMI 39.9
[2017-12-25] MEDS ORDERED: INSULIN (NOVOLOG) ASPART 100 UNITS/ML 10ML VIAL ONE (12:33)
--- NOTE | 2017-12-25 15:10 | PN ---
Progress Note, Physician History of Present Illness: Pt seen and examined at bedside. He is awake and alert. Surgery was cancelled and he will be discharges on abx. - Current Medication List Current Medications: Active Medications Albuterol Sulfate (Ventolin Hfa Inhaler -) 2 puff IH Q4H PRN PRN Reason: SHORTNESS OF BREATH Aspirin (Asa -) 81 mg PO DAILY [facility] Last Admin: 12/25/17 10:26 Dose: 81 mg Atorvastatin Calcium (Lipitor -) 80 mg PO HS [facility] Last Admin: 12/24/17 22:51 Dose: 80 mg Calcium Acetate (Phoslo -) 1,334 mg PO TIDCM [facility] Last Admin: 12/25/17 11:26 Dose: 1,334 mg Carvedilol (Coreg -) 6.25 mg PO BID [facility] Last Admin: 12/25/17 10:27 Dose: 6.25 mg Cholecalciferol (Vitamin D3 -) 2,000 unit PO DAILY [facility] Last Admin: 12/25/17 10:26 Dose: 2,000 unit Collagenase (Santyl -) 1 applic TP DAILY [facility]; Protocol Last Admin: 12/25/17 11:37 Dose: 1 applic Diphenhydramine HCl (Benadryl -) 25 mg PO Q6H PRN PRN Reason: FOR ITCHING Last Admin: 12/24/17 11:23 Dose: 25 mg Docusate Sodium (Colace -) 300 mg PO HS PRN PRN Reason: CONSTIPATION Heparin Sodium (Porcine) (Heparin -) 5,000 unit SQ Q8H-IV [facility] Last Admin: 12/25/17 10:25 Dose: 5,000 unit Piperacillin Sod/Tazobactam (Sod 2.25 gm/ Dextrose) 50 mls @ 100 mls/hr IVPB Q6H-IV [facility]; Protocol Last Admin: 12/25/17 10:27 Dose: 100 mls/hr Sodium Chloride (Normal Saline -) 250 mls @ 3,000 mls/hr IV PRN PRN PRN Reason: Hypotension during Dialysis Stop: 12/25/17 17:00 Insulin Aspart (Novolog Vial Sliding Scale -) 1 vial SQ ACHS [facility]; Protocol Last Admin: 12/25/17 12:00 Dose: 2 units Lactobacillus Acidophilus (Bacid -) 1 tab PO DAILY [facility] Last Admin: 12/25/17 10:26 Dose: 1 tab Multi-Ingredient Lotion (Eucerin (Small Jar) -) 1 applic TP BID [facility] Last Admin: 12/25/17 10:53 Dose: 1 applic Ondansetron HCl (Zofran Injection) 4 mg IVPUSH Q6H PRN PRN Reason: NAUSEA AND/OR VOMITING Pantoprazole Sodium (Protonix -) 20 mg PO DAILY [facility] Last Admin: 12/25/17 10:27 Dose: 20 mg Sodium Hypochlorite (Dakin's Solution 0.25% (Half-Strength) -) 1 applic TP DAILY [facility] Last Admin: 12/25/17 11:37 Dose: 1 applic - Objective Vital Signs: Vital Signs Temperature 97.7 F 12/25/17 05:48 Pulse Rate 68 12/25/17 05:48 Respiratory Rate 20 12/25/17 05:48 Blood Pressure 128/60 12/25/17 05:48 O2 Sat by Pulse Oximetry (%) 97 12/25/17 09:00 Constitutional: Yes: Calm Eyes: Yes: Conjunctiva Clear HENT: Yes: Atraumatic Neck: Yes: Supple Cardiovascular: Yes: S1, S2 Respiratory: Yes: CTA Bilaterally Gastrointestinal: Yes: Soft, Abdomen, Obese Genitourinary: Yes: WNL Edema: Yes Edema: LLE: 1+, RLE: 1+ Neurological: Yes: Oriented Psychiatric: Yes: Oriented Labs: CBC, BMP 12/23/17 11:00 12/23/17 15:00 INR, PTT INR 1.12 (0.83-1.09) H 12/14/17 13:25 Problem List - Problems (1) Cellulitis Code(s): L03.90 - CELLULITIS, UNSPECIFIED (2) Diabetes mellitus Code(s): E11.9 - TYPE 2 DIABETES MELLITUS WITHOUT COMPLICATIONS Qualifiers: Diabetes mellitus type: type 2 (3) ESRD (end stage renal disease) Code(s): N18.6 - END STAGE RENAL DISEASE (4) HLD (hyperlipidemia) Code(s): E78.5 - HYPERLIPIDEMIA, UNSPECIFIED (5) HTN (hypertension) Code(s): I10 - ESSENTIAL (PRIMARY) HYPERTENSION (6) Lymph edema Code(s): I89.0 - LYMPHEDEMA, NOT ELSEWHERE CLASSIFIED (7) Morbid obesity Code(s): E66.01 - MORBID (SEVERE) OBESITY DUE TO EXCESS CALORIES Assessment/Plan Current Medications Generic Name Dose Route Start Last Admin Trade Name Nataliia PRN Reason Stop Dose Admin Albuterol Sulfate 2 puff 12/15/17 06:46 Ventolin Hfa Inhaler - IH Q4H PRN SHORTNESS OF BREATH Aspirin 81 mg 12/15/17 10:00 12/25/17 10:26 Asa - PO 81 mg DAILY [facility] Administration Atorvastatin Calcium 80 mg 12/14/17 22:00 12/24/17 22:51 Lipitor - PO 80 mg HS [facility] Administration Calcium Acetate 1,334 mg 12/15/17 08:00 12/25/17 11:26 Phoslo - PO 1,334 mg TIDCM [facility] Administration Carvedilol 6.25 mg 12/14/17 22:00 12/25/17 10:27 Coreg - PO 6.25 mg BID [facility] Administration Cholecalciferol 2,000 unit 12/15/17 10:00 12/25/17 10:26 Vitamin D3 - PO 2,000 unit DAILY [facility] Administration Collagenase 1 applic 12/16/17 10:00 12/25/17 11:37 Santyl - TP 1 applic DAILY [facility] Administration Protocol Diphenhydramine HCl 25 mg 12/24/17 09:39 12/24/17 11:23 Benadryl - PO 25 mg Q6H PRN Administration FOR ITCHING Docusate Sodium 300 mg 12/14/17 22:00 Colace - PO HS PRN CONSTIPATION Heparin Sodium (Porcine) 5,000 unit 12/14/17 18:00 12/25/17 10:25 Heparin - SQ 5,000 unit Q8H-IV [facility] Administration Piperacillin Sod/Tazobactam 50 mls @ 100 mls/hr 12/21/17 16:15 12/25/17 10:27 Sod 2.25 gm/ Dextrose IVPB 100 mls/hr Q6H-IV [facility] Administration Protocol Sodium Chloride 250 mls @ 3,000 mls/hr 12/24/17 16:59 Normal Saline - IV 12/25/17 17:00 PRN PRN Hypotension during Dialysis Insulin Aspart 1 vial 12/14/17 22:00 12/25/17 12:00 Novolog Vial Sliding Scale - SQ 2 units ACHS [facility] Administration Protocol Lactobacillus Acidophilus 1 tab 12/19/17 12:15 12/25/17 10:26 Bacid - PO 1 tab DAILY [facility] Administration Multi-Ingredient Lotion 1 applic 12/19/17 16:48 12/25/17 10:53 Eucerin (Small Jar) - TP 1 applic BID [facility] Administration Ondansetron HCl 4 mg 12/20/17 16:21 Zofran Injection IVPUSH Q6H PRN NAUSEA AND/OR VOMITING Pantoprazole Sodium 20 mg 12/15/17 10:00 12/25/17 10:27 Protonix - PO 20 mg DAILY [facility] Administration Sodium Hypochlorite 1 applic 12/22/17 10:00 12/25/17 11:37 Dakin's Solution 0.25% (Half-Strength) - TP 1 applic DAILY [facility] Administration Impression 1. ESRD 2. anemia 3. HTN 4. morbid obesity 5. CVA 6. hyperlipidemia 7. proteinuria - nephrotic 8. PVD 9. foot ulcer Plan - pt has HD scheduled for tomorrow as outpt - cancel HD orders for today as he is not going to [place] tomorrow - ID follow up for abx - discussed with medical team - cont wound care - epogen for anemia - will follow Dr Win
--- NOTE | 2017-12-25 15:26 | PN ---
Teaching Attending Note Name of Resident: Williams Troy ATTENDING PHYSICIAN STATEMENT I saw and evaluated the patient. I reviewed the resident's note and discussed the case with the resident. I agree with the resident's findings and plan as documented. SUBJECTIVE:states pruritis has resolved. still does not want surgery. denies CP , SOB, fever, chills, N/V/C/D OBJECTIVE: Last Vital Signs Temp Pulse Resp BP Pulse Ox 97.7 F 68 20 128/60 97 12/25/17 05:48 12/25/17 05:48 12/25/17 05:48 12/25/17 05:48 12/25/17 09:00 General NAD ASSESSMENT AND PLAN: 57 yo M with pMHx anemia, asthma, COPD, DM, HTN, ESRD (HD TTS), PVD, and CVA, presented with Right leg pain amd found to have RLE cellulitis 1. RLE cellulitis, r/o 2nd toe OM- s/p debridement on 12/16. unable to obtain MRI due to body weight. Bone scan is negative for OM, however due to microvascular disease may not showing OM in the toe. now does NOT want to proceed with surgery. will like to attempt medical management with ABx and HBO therapy. understands there is a high likelihood he will need amputation in the future. will d/w ID about abx selection. on Vanco/zosyn. dosed by level. will d/ w ID about abx selection on discharge. will try to see if can be dosed with HD to prevent requiring tunneled catheter. is to f/u with podiatry in office tomorrow and being arrnaged for HBO. vascular and ID on board 2. Diffuse rash- appears to be eczema. sightly improved today. encouraged to hydrate daily. f/u with derm as outpatient. 3. Diarrhea- likely abx assoc diarrhea. no fevers or abdominal pain. only 1 BM yesterday. cdiff negative. on bacid. 4. ESRD on HD- resume normal schedule. renal on board. 5. NIDDM- hold oral agents. iss and BGM 6. HTN- controlled 7. H/o Right TMA (Wound with ESBL/MRSA) 8. COPD 9. HOLLY on CPAP 10. DVT ppx- Hep sq 11. d/c home tomorrow
--- NOTE | 2017-12-25 15:51 | PN ---
Progress Note (short form) - Note Progress Note: no complaints Vital Signs Period Temp Pulse Resp BP Sys/Leon Pulse Ox Last 24 Hr 97.7 F-98.4 F 68-79 20-20 128-139/60-64 97-97 cor-rrr lungs clear abd soft, nt toe still with ischemic changes CBC, BMP 12/23/17 11:00 12/23/17 15:00 xray no bony changes bone scan no osteomyelitis Microbiology 12/21/17 21:00 Stool Salmonella/Shigella Culture - Final NO GROWTH OF SALMONELLA OR SHIGELLA SPECIES OBTAINED 12/21/17 21:00 Stool Campylobacter Culture - Final NO GROWTH OF CAMPYLOBACTER SPECIES OBTAINED 12/21/17 21:00 Stool Yersinia Culture - Final NO GROWTH OF YERSINIA SPECIES OBTAINED 12/21/17 21:00 Stool Vibrio Culture - Final 12/21/17 21:00 Stool Escherichia coli 0157 Culture - Final NO GROWTH OF E COLI 0157 OBTAINED 12/21/17 21:00 Stool Gram Stain - Final 12/21/17 21:00 Stool Clostridium difficile Antigen (JAMAAL) - Final 12/21/17 21:00 Stool Clostridium difficile Toxin Assay - Final 12/14/17 12:45 Blood - Peripheral Venous Blood Culture - Final NO GROWTH AFTER 5 DAYS INCUBATION 12/14/17 12:45 Blood - Peripheral Venous Blood Culture - Final NO GROWTH AFTER 5 DAYS INCUBATION a/p thigh cellulitis resolved second toe with ischemic changes, -11 days iv antibiotics will continue vancomycin for another week with HD- d/w dr daniels, po levaquin for one week he will have close wound care f/u with dr rascon add po levaquin, 500 mg one dose now then 250 q 48hours for another week please get him a shoe d/w podiatry d/w renal itchy rash- ?excema esrd/hd Problem List - Problems (1) Cellulitis Code(s): L03.90 - CELLULITIS, UNSPECIFIED (2) Right second toe ulcer Code(s): L97.519 - NON-PRS CHRONIC ULCER OTH PRT RIGHT FOOT W UNSP SEVERITY (3) Diabetes mellitus Code(s): E11.9 - TYPE 2 DIABETES MELLITUS WITHOUT COMPLICATIONS Qualifiers: Diabetes mellitus type: type 2 (4) MDRO (multiple drug resistant organisms) resistance Code(s): Z16.35 - RESISTANCE TO MULTIPLE ANTIMICROBIAL DRUGS
--- NOTE | 2017-12-25 16:39 | DS ---
Physical Exam: SUBJECTIVE: Patient seen and examined at bedside. no acute complaints. no pain in legs. Denies CP, n/v/d/f/c, denies shortness of breath. OBJECTIVE: Vital Signs Period Temp Pulse Resp BP Sys/Leon Pulse Ox Last 24 Hr 97.7 F-98.4 F 68-79 20-20 128-139/60-64 97-97 PHYSICAL EXAM GENERAL: Awake, alert, and fully oriented, in no acute distress. HEAD: Normal with no signs of trauma. EYES: PERRLA, EOMI, sclera anicteric, conjunctiva clear. EARS, NOSE, THROAT: Ears normal, nares patent, oropharynx clear without exudates. Moist mucous membranes. NECK: Normal range of motion, supple without lymphadenopathy, JVD, or masses. LUNGS: Breath sounds equal, clear to auscultation bilaterally. HEART: Regular rate and rhythm, normal S1 and S2 without murmur, rub or gallop. ABDOMEN: Soft, nontender, not distended, normoactive bowel sounds. MUSCULOSKELETAL: Normal range of motion at all joints. No bony deformities or tenderness. No CVA tenderness. UPPER EXTREMITIES: 2+ pulses, warm, well-perfused. No cyanosis. No clubbing. No peripheral edema. LOWER EXTREMITIES: BLE: +erythema, +tenderness on palpation of anterior og[place], + warmth, +scaling with yellowish discoloration that extends from knees to foot. Right 2nd toe less erythematous and less cyanotic. Pulses palpable. NEUROLOGICAL: Cranial nerves II-XII intact. Normal speech. Normal gait. PSYCHIATRIC: Cooperative. Good eye contact. Appropriate mood and affect. SKIN: Warm, dry, normal turgor, no rashes or lesions noted, normal capillary refill. LABS Laboratory Results - last 24 hr 12/24/17 12/24/17 12/25/17 17:03 22:54 07:02 POC Glucometer 297 293 209 12/25/17 11:41 POC Glucometer 205 Microbiology 12/21/17 21:00 Stool Salmonella/Shigella Culture - Final NO GROWTH OF SALMONELLA OR SHIGELLA SPECIES OBTAINED 12/21/17 21:00 Stool Campylobacter Culture - Final NO GROWTH OF CAMPYLOBACTER SPECIES OBTAINED 12/21/17 21:00 Stool Yersinia Culture - Final NO GROWTH OF YERSINIA SPECIES OBTAINED 12/21/17 21:00 Stool Vibrio Culture - Final 12/21/17 21:00 Stool Escherichia coli 0157 Culture - Final NO GROWTH OF E COLI 0157 OBTAINED 12/21/17 21:00 Stool Gram Stain - Final 12/21/17 21:00 Stool Clostridium difficile Antigen (JAMAAL) - Final 12/21/17 21:00 Stool Clostridium difficile Toxin Assay - Final 12/14/17 12:45 Blood - Peripheral Venous Blood Culture - Final NO GROWTH AFTER 5 DAYS INCUBATION 12/14/17 12:45 Blood - Peripheral Venous Blood Culture - Final NO GROWTH AFTER 5 DAYS INCUBATION IMAGING: XR Foot: 2 views of the right foot reveal degenerative changes, angulated toes, heavy vascular calcifications and no sign of fracture or bone destruction. Blastic or lytic changes are not seen. If one is concerned about osteomyelitis, three-phase bone scan or MR may be of help. Since 10/24/2017 , there is no change of an adverse nature. TRIPHASIC BONE SCAN: No scintigraphic evidence of right foot or toes osteomyelitis. Status post transmetatarsal left foot amputation with increased blood pool and delayed activity at the amputation stump. Underlying osteomyelitis cannot be excluded. Clinical correlation is needed. US LLE: No left leg DVT is identified. HOSPITAL COURSE: Date of Admission:12/14/17 Patient is a 57 year old male with past medical history of anemia, asthma, COPD , DM, HTN, ESRD (HD TTS), PVD, and CVA, presented with Right leg pain. Patient reported that it started 2 days prior to admission when he noted pain, patchy redness and warmth on the medial lower 1/3 of the right thigh. He was admitted for the treatment of cellulitis with IV antibiotics. Patient subsequently was found to have an erythematous and cyanotic appearing 2nd great toe, raising concerns for osteomyelitis. XR of th efoot did not reveal any significant findings for osteo. A bone scan was performed that did not reveal any evidence for osteomyelitis. Patient's thigh cellulitis had resolved during this admission. There was concern about the R second toe, and initially it was considered for amputation, however discussions with podiatry and infectious disease led us to the idea that this toe may have poor circulation and is not infected. During this admission, patient received dialysis as needed. None of his cultures listed above grew any organisms. Patient was discharged on 1 more week of vancomycin and PO levaquin and told to follow with podiatry and hyperbaric oxygen treatments at [facility]. Date of Discharge: 12/25/17 Minutes to complete discharge: 36 Discharge Summary Reason For Visit: CELLULITIS Current Active Problems Cellulitis (Acute) MDRO (multiple drug resistant organisms) resistance (Acute) Right second toe ulcer (Acute) Condition: Stable - Instructions Diet, Activity, Other Instructions: You were admitted for the treatment of right lower extremity cellulitis, an infection of your skin. It was found that you have an infection on your Right second toe. You were treated with IV antibiotics. It was decided that we would try conservative management with antibiotic therapy at home. It will be set up for you to receive Vancomycin with HD for 1 week You will also be taking an antiobiotic pill (levaquin) by mouth for 3 doses. Take this every other day starting Monday (12/27) as you received a dose today. Continue to take bacid for one month to prevent worsening of your diarrhea. Please make appointments with the infection doctor, Dr. Giron within 1 week of discharge Please make appointment with the mortar man Dr. Alcantara, PLease see him tomorrow MORNING in the wound care center on the 5th floor. He will be setting up hyperbaric therapy for you and give more information regarding the next steps. If you experience worsening fevers, chills, pain in your toe, discharge, discoloration, please return to the emergency department immediately. Referrals: Hai Davis [Non Staff, Medical] - Maida Giron MD [Staff Physician] - 1 Week Brigitte Win MD [Staff Physician] - 1 Week - Home Medications Comprehensive Discharge Medication List: Ambulatory Orders Omeprazole [Prilosec (RX)] 20 mg PO DAILY 08/13/14 Atorvastatin Ca [Lipitor] 80 mg PO HS 05/24/16 Albuterol Sulfate [Proair Respiclick] 90 mcg IH DAILY 11/13/16 Cholecalciferol (Vitamin D3) [Vitamin D3] 2,000 unit PO DAILY 11/13/16 Aspirin [ASA -] 81 mg PO DAILY #30 tab.chew 11/15/16 Pregabalin [Lyrica -] 100 mg PO DAILY MDD 50 mg 04/19/17 Calcium Acetate [Phoslo -] 1,334 mg PO TIDCM capsule 04/27/17 Polyethylene Glycol 3350 [Miralax 119 gm Btl -] 17 gm PO DAILY bottle 04/27/17 Carvedilol [Coreg -] 6.25 mg PO BID tablet 07/10/17 Torsemide [Demadex -] 80 mg PO MOWEFR tablet 07/10/17 Docusate Sodium [Colace -] 300 mg PO HS PRN 08/08/17 Sitagliptin Phosphate [Januvia -] 25 mg PO DAILY@0700 #30 tab 08/15/17 L. Acidophilus/L.bulgaricus [Lactobacillus Tablet] 1 each PO DAILY #30 tablet Vancomycin 1 gm Premix - 1 gm IV TUTHSA #3 bag 12/25/17 levoFLOXacin [Levaquin -] 250 mg PO Q48H #3 tablet 12/25/17 This patient is new to me today: No Emergency Visit: No Critical Care patient: No - Discharge Referral Referred to [facility] No
== END 2017-12-25 21:52 | disposition home or self-care (01) | DRG 252 ==
LOC: JER 11:27 → JERBED 15:49 → J6S 12-15 00:32
PROVIDERS: ADMIT Hospitalist; ATTEND Internal Medicine
PROC: 0JBQ0ZZ Excision of Right Foot Subcutaneous Tissue and Fascia, Open Approach (ICD-10-PCS; principal; 2017-12-16)
PROC: 047K3ZZ Dilation of Right Femoral Artery, Percutaneous Approach (ICD-10-PCS; 2017-12-20)
PROC: B40FYZZ Plain Radiography of Right Lower Extremity Arteries using Other Contrast (ICD-10-PCS; 2017-12-20)
DX: E11.52 Type 2 diabetes mellitus with diabetic peripheral angiopathy with gangrene (principal); N18.6 End stage renal disease; L03.115 Cellulitis of right lower limb; I12.0 Hypertensive chronic kidney disease with stage 5 chronic kidney disease or end stage renal disease; Z68.41 Body mass index [BMI] 40.0-44.9, adult; L97.518 Non-pressure chronic ulcer of other part of right foot with other specified severity; I44.0 Atrioventricular block, first degree; J44.9 Chronic obstructive pulmonary disease, unspecified; E11.22 Type 2 diabetes mellitus with diabetic chronic kidney disease; G47.33 Obstructive sleep apnea (adult) (pediatric); E66.01 Morbid (severe) obesity due to excess calories; E78.5 Hyperlipidemia, unspecified; K21.9 Gastro-esophageal reflux disease without esophagitis; E11.621 Type 2 diabetes mellitus with foot ulcer; I89.0 Lymphedema, not elsewhere classified; D64.9 Anemia, unspecified; Z86.73 Personal history of transient ischemic attack (TIA), and cerebral infarction without residual deficits; Z16.35 Resistance to multiple antimicrobial drugs; Z99.2 Dependence on renal dialysis; R19.7 Diarrhea, unspecified; L30.9 Dermatitis, unspecified; Z89.432 Acquired absence of left foot
CPT/HCPCS: 36415; 71046-TC-FY; 73630-TC-RT-FY; 76000-TC-FY; 78315-TC; 80048; 80053; 82565; 82962; 83605; 83735; 84100; 84520; 85025; 85027; 85610; 85651; 86140; 86704; 86706; 86708; 86803; 87040; 87045; 87046; 87205; 87324; 87340; 87449; 93005; 93010; 93923; 93970-TC; 97116-GP; 97161-GP; 99284-25; A9503; G0480; J0885; J1644

== ENCOUNTER 2017-12-30 10:33 | Inpatient (IN) | payer OTHER ==
[2017-12-30] MEDS ORDERED: ADENOSINE 6 MG/2 ML VIAL IVPUSH ONE ×8 (10:44→13:36)
[2017-12-30] MEDS: SODIUM CHLORIDE 1,000 ML IV SCH (10:50)
--- NOTE | 2017-12-30 10:58 | PDOC ---
History of Present Illness - General Stated Complaint: HIGH PULSE Time Seen by Provider: 12/30/17 10:43 History Source: Patient Exam Limitations: No Limitations - History of Present Illness Initial Comments: 12/30/17 11:03 57y M hx of anemia nemia, asthma, COPD, diabetes, HTN, ESRD (HD on TuThSa), PVD , CVAx 2 BIBEMS for evalation of tachycardia. Patient states he was asymptomatic this morning without routine dialysis. With approximately 30 minutes left the patient was noted to be tachycardic to 150s, slightly hypotensive and was brought to ER for evaluation. The patient has no complaints including chest pain, shortness of breath, palpitations, headache, dizziness. The patient does have history of syncopized in during dialysis, states he is told that he had rapid heart rate in the past however it usually spontaneously resolves. She denies any recent shortness of breath, cough, fevers. Cardiology: Dr. Naylor Past History - Past Medical History Allergies/Adverse Reactions: Allergies Allergy/AdvReac Type Severity Reaction Status Date / Time fish derived Allergy Severe Hives Verified 12/14/17 11:49 Shellfish Allergy Severe Verified 12/14/17 11:49 sulfamethoxazole Allergy Severe Swelling Verified 12/14/17 11:49 [From Bactrim DS] trimethoprim Allergy Severe Swelling Verified 12/14/17 11:49 [From Bactrim DS] Home Medications: Ambulatory Orders Omeprazole [Prilosec (RX)] 20 mg PO DAILY 08/13/14 Atorvastatin Ca [Lipitor] 80 mg PO HS 05/24/16 Albuterol Sulfate [Proair Respiclick] 90 mcg IH DAILY 11/13/16 Cholecalciferol (Vitamin D3) [Vitamin D3] 2,000 unit PO DAILY 11/13/16 Aspirin [ASA -] 81 mg PO DAILY #30 tab.chew 11/15/16 Pregabalin [Lyrica -] 100 mg PO DAILY MDD 50 mg 04/19/17 Calcium Acetate [Phoslo -] 1,334 mg PO TIDCM capsule 04/27/17 Polyethylene Glycol 3350 [Miralax 119 gm Btl -] 17 gm PO DAILY bottle 04/27/17 Carvedilol [Coreg -] 6.25 mg PO BID tablet 07/10/17 Torsemide [Demadex -] 80 mg PO MOWEFR tablet 07/10/17 Docusate Sodium [Colace -] 300 mg PO HS PRN 08/08/17 Sitagliptin Phosphate [Januvia -] 25 mg PO DAILY@0700 #30 tab 08/15/17 L. Acidophilus/L.bulgaricus [Lactobacillus Tablet] 1 each PO DAILY #30 tablet Vancomycin 1 gm Premix - 1 gm IV TUTHSA #3 bag 12/25/17 levoFLOXacin [Levaquin -] 250 mg PO Q48H #3 tablet 12/25/17 Anemia: Yes Asthma: Yes Cancer: No Cardiac Disorders: Yes (ANGINA) CVA: Yes (X 2) COPD: Yes CHF: Yes Dementia: No Diabetes: Yes Dialysis: Yes GI Disorders: No Disorders: No HTN: Yes Hypercholesterolemia: Yes Liver Disease: No Seizures: No Thyroid Disease: No - Surgical History Abdominal Surgery: Yes (gastric bypass 05/05/14) Appendectomy: No Cardiac Surgery: No Cholecystectomy: No Lung Surgery: No Neurologic Surgery: No Orthopedic Surgery: Yes - Immunization History Immunization Up to Date: Yes - Suicide/Smoking/Psychosocial Hx Smoking Status: No Smoking History: Never smoked Have you smoked in the past 12 months: No Number of Cigarettes Smoked Daily: 0 Cigars Per Day: 0 Information on smoking cessation initiated: No Hx Alcohol Use: No Drug/Substance Use Hx: No Substance Use Type: None Hx Substance Use Treatment: No Review of Systems - Review of Systems Able to Perform ROS?: Yes Comments:: 12/30/17 11:11 Constitutional - no reported Fever, Chills, HEENT: no reported vision changes, sore throat Respiratory: no reported cough, sob, hemoptysis Cardiac: no reported chest pain, palpitations, light headedness, leg swelling Abd/GI: no reported abd pain, nausea, vomiting, blood per rectum, melena, diarrhea : no reported dysuria, frequency, discharge Musculskelatal - no reported back pain, joint swelling skin - no reported bruising, erythema, rash neurological: no reported headache, numbness, focal weakness, tingling, ataxia, hematologic: no reported easy bruising, easy bleeding *Physical Exam - Vital Signs Last Vital Signs Temp Pulse Resp BP Pulse Ox 97.6 F 147 H 20 92/64 100 12/30/17 10:54 12/30/17 10:54 12/30/17 10:54 12/30/17 10:54 12/30/17 10:54 - Physical Exam Comments: 12/30/17 11:11 GENERAL: The patient is awake, alert, and fully oriented, Nontoxic - in no acute distress. HEAD: Normocephalic, atraumatic. EYES: extraocular movements intact, sclera anicteric, conjunctiva clear. ENT: Normal voice, Moist mucous membranes. NECK: Normal range of motion, supple LUNGS: Breath sounds equal, clear to auscultation bilaterally. No wheezes, no rhonchi, no rales. HEART: tachycardic regular ABDOMEN: Soft, nontender, normoactive bowel sounds. No guarding, no rebound. No CVA tenderness EXTREMITIES: Normal range of motion, bl LE erythema, no warmth/induration/ tenderness NEUROLOGICAL: No facial assymetry, Normal speech, movinga ll 4 extremities sponteously and symemtrically PSYCH: Normal mood, normal affect. SKIN: Warm, Dry, normal turgor, Heart Score/ECG Review - ECG Impressions Comment:: 12/30/17 11:22 Twelve-lead EKG was performed and reviewed by me. Rate of 148 Supraventricular tachycardia ED Treatment Course - LABORATORY CBC & Chemistry Diagram: 12/30/17 10:50 12/30/17 11:48 - Medications Given in the ED: ED Medications Discontinued Medications Generic Name Dose Route Start Last Admin Trade Name Freq PRN Reason Stop Dose Admin Adenosine 6 mg 12/30/17 10:45 12/30/17 10:47 Adenocard - IVPUSH 12/30/17 10:46 6 mg ONCE ONE Administration Medical Decision Making - Critical Care Time Total Critical Care Time (minutes): 45 Critical Care Statement: The care of this patient involved high complexity decision making to prevent further life threatening deterioration of the patient 's condition and/or to evaluate & treat vital organ system(s) failure or risk of failure. - Medical Decision Making 12/30/17 11:12 57-year-old gentleman history of ESRD and other medical problems presenting in with tachycardia. She has a CT on his EKG Patient was given 6 of adenosine which briefly slowed down his heart rate however SVT resume the patient was given another 12 of adenosine also slow down his heart rate however SVT continued. Discussed with cardiologyat the patient has a history of syncope, as well as over dialysis, commands gentle fluid bolus and possibly another 12 of adenosine of no response. Consider electrolyte abnormalities awaiting blood work. The patient's currently symptomatically, continue to monitor closely 12/30/17 11:32 pts HR improved with 3rd dose Rate of 86 12/30/17 12:58 pt was in NSR until now, his HR went into SVT, HR of 131 currently will give 6mg of adenosine 12/30/17 13:13 Pts HR improved with 6mg adenosine will observe for recurrent SVT awaiting cardiology consultation 12/30/17 15:13 pt admitted for further management to hospitalist service discussed with Dr Lalit damico for telemetry dw cardiology - recommended 5mg of metoprolol *DC/Admit/Observation/Transfer Diagnosis at time of Disposition: SVT (supraventricular tachycardia), ESRD (end stage renal disease) - Discharge Dispostion Condition at time of disposition: Guarded Decision to Admit order: Yes - Referrals - Patient Instructions - Post Discharge Activity
[2017-12-30 11:02] LABS: BASO % 0.3 % (0-2.0); EOS % 6.2 % (0-4.5); HEMOGLOBIN 12.4 GM/dL (11.7-16.9); LYMPH % 17.6 % (8-40); MCHC 32.5 g/dl (32.0-35.9); MEAN CELL VOLUME 92.5 fl (80-96); MEAN PLT VOLUME 9.4 fl (7.5-11.1); MONO % 6.7 % (3.8-10.2); NEUT % 69.2 % (42.8-82.8); PLATELET COUNT 358 K/MM3 (134-434); RBC 4.11 M/mm3 (4.00-5.60); RDW 17.1 % (11.9-15.9); WHITE BLOOD COUNT 11.1 K/mm3 (4.0-10.0)
[2017-12-30 11:20] LABS: INR 1.13 (0.83-1.09); PROTHROMBIN TIME (PATIENT) 13.4 SEC (9.7-13.0)
[2017-12-30 12:40] LABS: ALBUMIN 2.6 g/dl (3.4-5.0); ALK PHOS 52 U/L (45-117); ANION GAP 10 MMOL/L (8-16); BILIRUBIN,TOTAL 0.3 mg/dL (0.2-1); BLOOD UREA NITROGEN 19 mg/dL (7-18); CALCIUM 8.4 mg/dL (8.5-10.1); CHLORIDE 102 mmol/L (98-107); CO2 27 mmol/L (21-32); CREATININE 4.9 mg/dL (0.55-1.3); GLUCOSE,RANDOM 245 mg/dL (74-106); MAGNESIUM 2.1 mg/dL (1.8-2.4); POTASSIUM 3.9 mmol/L (3.5-5.1); SGOT/AST 19 U/L (15-37); SGPT/ALT 16 U/L (13-61); SODIUM 139 mmol/L (136-145)
[2017-12-30] MEDS ORDERED: CARVEDILOL 6.25 MG TABLET (FP) PO ONE (13:13)
[2017-12-30] MEDS ORDERED: CARVEDILOL 3.125 MG TABLET (FP) ONE (13:13)
--- NOTE | 2017-12-30 13:32 | HP ---
<Noman Cohn - Last Filed: 12/30/17 15:21> CHIEF COMPLAINT: referred by dialysis for tachycardia and hypotension PCP: Dr. Davis Nephrology, dr. Frost Cardiology: Dr. Naylor HISTORY OF PRESENT ILLNESS: 57 yr old man with ESRD on dialysis TTS, DM II, morbid obesity, anemia, HTN, referred from hemodialysis for asymptomatic tachycardia and hypotension. He was about to complete dialysis, had about 40mins left when the tachycardia and hypotension was noted. Hr 140's(started on 60's at the beginning), BP 87/56. Monday it was also tachy 127's BP 102/53, no issues on . He had no complaints during any of the episodes. In the ED he was found to have SVT and was treated with adenosine and cardizem. He received IV vancomcyin with HD 1gm on Monday, and Monday, has one more dose left on Monday. Has one more dose of levaquin left. Pt was recently dc'd on 12/25 with IV abx. Since discharge he has no new complaints. Has been eating, toileting, ambulating, tolerating HD and abx without complications. Denies fevers, chest pain, sob, change in LE edema, palpitations, dizzyness, changes in vision, headache, cough. recently followed with podiatry without any new complications. ER course was notable for: (1) adenosine IV (2) cardizem IV (3) 1L of IVF NS Recent Travel: none PAST MEDICAL HISTORY: HTN, NIDDM II, morbid obesity s/p bariatric surgery, hx of CVA x2 with LLE residual weakness, sleep apnea, anemia, GERD, COPD PAST SURGICAL HISTORY: L foot transmetatarsal amputation Social History: Smoking:denies Alcohol:denies Drugs: denies Family History: mother with breast cancer Allergies fish derived Allergy (Severe, Verified 12/14/17 11:49) Hives Shellfish Allergy (Severe, Verified 12/14/17 11:49) throat swelling sulfamethoxazole [From Bactrim DS] Allergy (Severe, Verified 12/14/17 11:49) Swelling trimethoprim [From Bactrim DS] Allergy (Severe, Verified 12/14/17 11:49) Swelling HOME MEDICATIONS: Home Medications Medication Instructions Recorded Omeprazole [Prilosec (RX)] 20 mg PO DAILY 08/13/14 Atorvastatin Ca [Lipitor] 80 mg PO HS 05/24/16 Albuterol Sulfate [Proair 90 mcg IH DAILY 11/13/16 Respiclick] Cholecalciferol (Vitamin D3) 2,000 unit PO DAILY 11/13/16 [Vitamin D3] Aspirin [ASA -] 81 mg PO DAILY #30 tab.chew 11/15/16 Pregabalin [Lyrica -] 100 mg PO DAILY MDD 50 mg 04/19/17 Calcium Acetate [Phoslo -] 1,334 mg PO TIDCM capsule 04/27/17 Polyethylene Glycol 3350 [Miralax 17 gm PO DAILY bottle 04/27/17 119 gm Btl -] Carvedilol [Coreg -] 6.25 mg PO BID tablet 07/10/17 Torsemide [Demadex -] 80 mg PO MOWEFR tablet 07/10/17 Docusate Sodium [Colace -] 300 mg PO HS PRN 08/08/17 Sitagliptin Phosphate [Januvia -] 25 mg PO DAILY@0700 #30 tab 08/15/17 L. Acidophilus/L.bulgaricus 1 each PO DAILY #30 tablet 12/25/17 [Lactobacillus Tablet] Vancomycin 1 gm Premix - 1 gm IV TUTHSA #3 bag 12/25/17 levoFLOXacin [Levaquin -] 250 mg PO Q48H #3 tablet 12/25/17 REVIEW OF SYSTEMS CONSTITUTIONAL: Absent: fever, chills, diaphoresis, generalized weakness, malaise, loss of appetite, weight change HEENT: Absent: rhinorrhea, nasal congestion, throat pain, throat swelling, difficulty swallowing, mouth swelling, ear pain, eye pain, visual changes CARDIOVASCULAR: Present: peripheral edema- chronic Absent: chest pain, syncope, palpitations, irregular heart rate, lightheadedness , RESPIRATORY: Absent: cough, shortness of breath, dyspnea with exertion, orthopnea, wheezing, stridor, hemoptysis GASTROINTESTINAL: Absent: abdominal pain, abdominal distension, nausea, vomiting, diarrhea, constipation, melena, hematochezia GENITOURINARY: Absent: dysuria, frequency, urgency, hesitancy, hematuria, flank pain, genital pain MUSCULOSKELETAL: Absent: myalgia, arthralgia, joint swelling, back pain, neck pain SKIN: Present: rash, itching in lower back - chronic without any changes Absent: pallor HEMATOLOGIC/IMMUNOLOGIC: Absent: easy bleeding, easy bruising, lymphadenopathy, frequent infections ENDOCRINE: Absent: unexplained weight gain, unexplained weight loss, heat intolerance, cold intolerance NEUROLOGIC: Absent: headache, focal weakness or paresthesias, dizziness, unsteady gait, seizure, mental status changes, bladder or bowel incontinence PSYCHIATRIC: Absent: anxiety, depression, hallucinations. PHYSICAL EXAMINATION Vital Signs - 24 hr 12/30/17 12/30/17 12/30/17 10:54 11:00 11:45 Temperature 97.6 F Pulse Rate 147 H Pulse Rate [ 147 H 82 Apical] Respiratory 20 18 18 Rate Blood Pressure 92/64 Blood Pressure 97/63 107/68 [Right Arm] O2 Sat by Pulse 100 98 100 Oximetry (%) 12/30/17 12/30/17 13:04 13:17 Temperature Pulse Rate Pulse Rate [ 132 H 85 Apical] Respiratory 17 17 Rate Blood Pressure Blood Pressure 101/67 106/90 [Right Arm] O2 Sat by Pulse 98 98 Oximetry (%) GENERAL: Awake, alert, and fully oriented, in no acute distress. HEAD: Normal with no signs of trauma. EYES: Pupils equal, round and reactive to light, extraocular movements intact, sclera anicteric, conjunctiva clear. No lid lag. EARS, NOSE, THROAT: Ears normal, nares patent, oropharynx clear without exudates. Moist mucous membranes. no thyromegaly, no LAD, no sinus tenderness. no oral thrush or lesions. NECK: Normal range of motion, supple without lymphadenopathy, JVD, or masses. LUNGS: Breath sounds equal, clear to auscultation bilaterally. No wheezes, and no crackles. No accessory muscle use. HEART: Regular rate and rhythm, normal S1 and S2 without murmur, rub or gallop. ABDOMEN: Soft, obese, nontender, not distended, normoactive bowel sounds, no guarding, no rebound, lower abdomen diffuse erythematous rash with skin intact. MUSCULOSKELETAL: Normal range of motion at all joints. No bony deformities or tenderness. No CVA tenderness. UPPER EXTREMITIES: 2+ radial pulses, warm, well-perfused. No cyanosis. No clubbing. No peripheral edema. left arm AVF with palpable thril LOWER EXTREMITIES: warm, chronic PVD dry erythematous blanching skin changes. No calf tenderness. + peripheral edema b/l. left foot incision site intact. left 2nd toe with chronic ulcer with scant serous drainage without tendernes, erythema or crepitus. NEUROLOGICAL: Cranial nerves II-XII intact. Normal speech. PSYCHIATRIC: Cooperative. Good eye contact. Appropriate mood and affect. SKIN: Warm, dry, normal turgor, + rashes diffuse red lower back, normal capillary refill. Laboratory Results - last 24 hr 12/30/17 12/30/17 12/30/17 10:40 10:40 10:50 WBC 11.1 H RBC 4.11 Hgb 12.4 Hct 38.0 D MCV 92.5 MCH 30.0 MCHC 32.5 RDW 17.1 H Plt Count 358 D MPV 9.4 Absolute Neuts (auto) 7.7 Neutrophils % 69.2 Lymphocytes % 17.6 D Monocytes % 6.7 Eosinophils % 6.2 H Basophils % 0.3 Nucleated RBC % 0 PT with INR 13.40 H INR 1.13 H Sodium Cancelled Potassium Cancelled Chloride Cancelled Carbon Dioxide Cancelled Anion Gap Cancelled BUN Cancelled Creatinine Cancelled Creat Clearance w eGFR Cancelled Random Glucose Cancelled Calcium Cancelled Magnesium Cancelled Total Bilirubin Cancelled AST Cancelled ALT Cancelled Alkaline Phosphatase Cancelled Total Protein Cancelled Albumin Cancelled 12/30/17 11:48 WBC RBC Hgb Hct MCV MCH MCHC RDW Plt Count MPV Absolute Neuts (auto) Neutrophils % Lymphocytes % Monocytes % Eosinophils % Basophils % Nucleated RBC % PT with INR INR Sodium 139 Potassium 3.9 Chloride 102 Carbon Dioxide 27 Anion Gap 10 BUN 19 H Creatinine 4.9 H Creat Clearance w eGFR 12.31 Random Glucose 245 H Calcium 8.4 L Magnesium 2.1 Total Bilirubin 0.3 AST 19 ALT 16 Alkaline Phosphatase 52 Total Protein 7.0 Albumin 2.6 L ASSESSMENT/PLAN: 57 yr old man with ESRD on HD, HTN, COPD, hx of CVA, NIDDMII found to have recurrent SVT. #SVT - unclear etiology, no s/s of infection( no leucocytosis, no fever), electrolytes normal. possible hypotension may be contributing, given ESRD pt was given 1L in the ED with improvement in BP, continue to monitor for repeat hypotensive episodes, cautious IVF use. - continuous telemetry monitoring - metoprolol 50mg po bid, dc carvidelol - cardiology consult, to monitor for reoccurrence and re-evaluate for medical management vs ablation - TSH within normal - check urine tox to r/o illicit drugs #RLE Cellulitis being treated from previous admission, thought to likely be due to PVD vs infection - complete course of vancomycin and levoquin - final dose of vanc on Monday with HD, final dose of levoquin tomorrow - monitor for diarrhea, pt on bacid - wound care with brent, consult #ESRD on HD - HD TTS - vitamin D3 po, phoslo TID - Dr. Win consulted #NIDDM II - hold januvia - NISS ACHS #HTN - currently hyptensive, - only on metoprolol 50mg po bid - continue torsemide 80mg daily on nondialysis days - received 1L NS bolus in Ed #Hx of CVA - continue 81mg ASA daily, atrovastatin 80mg hs #COPD - albuterol inh #GERD - omeprazole 20mg po daily #Diet; diabetic/low sodium #DVT: heparin TID #chronic pain - continue home medication lyrica Visit type - Emergency Visit Emergency Visit: Yes ED Registration Date: 12/30/17 Care time: The patient presented to the Emergency Department on the above date and was hospitalized for further evaluation of their emergent condition. - New Patient This patient is new to me today: Yes Date on this admission: 12/30/17 - Critical Care Critical Care patient: No <Vinny Ravi - Last Filed: 12/31/17 08:20> CHIEF COMPLAINT: PCP: HISTORY OF PRESENT ILLNESS: ER course was notable for: (1) (2) (3) Recent Travel: PAST MEDICAL HISTORY: PAST SURGICAL HISTORY: Social History: Smoking: Alcohol: Drugs: Family History: Allergies fish derived Allergy (Severe, Verified 12/14/17 11:49) Hives Shellfish Allergy (Severe, Verified 12/14/17 11:49) throat swelling sulfamethoxazole [From Bactrim DS] Allergy (Severe, Verified 12/14/17 11:49) Swelling trimethoprim [From Bactrim DS] Allergy (Severe, Verified 12/14/17 11:49) Swelling HOME MEDICATIONS: Home Medications Medication Instructions Recorded Omeprazole [Prilosec (RX)] 20 mg PO DAILY 08/13/14 Atorvastatin Ca [Lipitor] 80 mg PO HS 05/24/16 Albuterol Sulfate [Proair 90 mcg IH DAILY 11/13/16 Respiclick] Cholecalciferol (Vitamin D3) 2,000 unit PO DAILY 11/13/16 [Vitamin D3] Aspirin [ASA -] 81 mg PO DAILY #30 tab.chew 11/15/16 Pregabalin [Lyrica -] 100 mg PO DAILY MDD 50 mg 04/19/17 Calcium Acetate [Phoslo -] 1,334 mg PO TIDCM capsule 04/27/17 Polyethylene Glycol 3350 [Miralax 17 gm PO DAILY bottle 04/27/17 119 gm Btl -] Carvedilol [Coreg -] 6.25 mg PO BID tablet 07/10/17 Torsemide [Demadex -] 80 mg PO MOWEFR tablet 07/10/17 Docusate Sodium [Colace -] 300 mg PO HS PRN 08/08/17 Sitagliptin Phosphate [Januvia -] 25 mg PO DAILY@0700 #30 tab 08/15/17 L. Acidophilus/L.bulgaricus 1 each PO DAILY #30 tablet 12/25/17 [Lactobacillus Tablet] Vancomycin 1 gm Premix - 1 gm IV TUTHSA #3 bag 12/25/17 levoFLOXacin [Levaquin -] 250 mg PO Q48H #3 tablet 12/25/17 REVIEW OF SYSTEMS CONSTITUTIONAL: Absent: fever, chills, diaphoresis, generalized weakness, malaise, loss of appetite, weight change HEENT: Absent: rhinorrhea, nasal congestion, throat pain, throat swelling, difficulty swallowing, mouth swelling, ear pain, eye pain, visual changes CARDIOVASCULAR: Absent: chest pain, syncope, palpitations, irregular heart rate, lightheadedness , peripheral edema RESPIRATORY: Absent: cough, shortness of breath, dyspnea with exertion, orthopnea, wheezing, stridor, hemoptysis GASTROINTESTINAL: Absent: abdominal pain, abdominal distension, nausea, vomiting, diarrhea, constipation, melena, hematochezia GENITOURINARY: Absent: dysuria, frequency, urgency, hesitancy, hematuria, flank pain, genital pain MUSCULOSKELETAL: Absent: myalgia, arthralgia, joint swelling, back pain, neck pain SKIN: Absent: rash, itching, pallor HEMATOLOGIC/IMMUNOLOGIC: Absent: easy bleeding, easy bruising, lymphadenopathy, frequent infections ENDOCRINE: Absent: unexplained weight gain, unexplained weight loss, heat intolerance, cold intolerance NEUROLOGIC: Absent: headache, focal weakness or paresthesias, dizziness, unsteady gait, seizure, mental status changes, bladder or bowel incontinence PSYCHIATRIC: Absent: anxiety, depression, suicidal or homicidal ideation, hallucinations. PHYSICAL EXAMINATION Vital Signs - 24 hr 12/30/17 12/30/17 12/30/17 10:54 11:00 11:45 Temperature 97.6 F Pulse Rate 147 H Pulse Rate [ 147 H 82 Apical] Respiratory 20 18 18 Rate Blood Pressure 92/64 Blood Pressure 97/63 107/68 [Right Arm] O2 Sat by Pulse 100 98 100 Oximetry (%) 12/30/17 12/30/17 12/30/17 13:04 13:17 13:46 Temperature Pulse Rate Pulse Rate [ 132 H 85 128 H Apical] Respiratory 17 17 17 Rate Blood Pressure Blood Pressure 101/67 106/90 103/74 [Right Arm] O2 Sat by Pulse 98 98 98 Oximetry (%) 12/30/17 12/30/17 12/30/17 13:57 17:44 19:30 Temperature 98.4 F 98 F Pulse Rate 73 Pulse Rate [ 74 65 Apical] Respiratory 17 17 20 Rate Blood Pressure 104/55 L Blood Pressure 94/51 L 101/57 L [Right Arm] O2 Sat by Pulse 98 98 100 Oximetry (%) 12/30/17 12/31/17 12/31/17 22:00 01:00 06:00 Temperature 98.5 F 98.5 F 98.1 F Pulse Rate 68 61 69 Pulse Rate [ Apical] Respiratory 20 20 20 Rate Blood Pressure 102/57 L 94/42 L 81/47 L Blood Pressure [Right Arm] O2 Sat by Pulse Oximetry (%) GENERAL: Awake, alert, and fully oriented, in no acute distress. HEAD: Normal with no signs of trauma. EYES: Pupils equal, round and reactive to light, extraocular movements intact, sclera anicteric, conjunctiva clear. No lid lag. EARS, NOSE, THROAT: Ears normal, nares patent, oropharynx clear without exudates. Moist mucous membranes. NECK: Normal range of motion, supple without lymphadenopathy, JVD, or masses. LUNGS: Breath sounds equal, clear to auscultation bilaterally. No wheezes, and no crackles. No accessory muscle use. HEART: Regular rate and rhythm, normal S1 and S2 without murmur, rub or gallop. ABDOMEN: Soft, nontender, not distended, normoactive bowel sounds, no guarding, no rebound, no masses. No hepatomegaly or splenomegaly. MUSCULOSKELETAL: Normal range of motion at all joints. No bony deformities or tenderness. No CVA tenderness. UPPER EXTREMITIES: 2+ pulses, warm, well-perfused. No cyanosis. No clubbing. No peripheral edema. LOWER EXTREMITIES: 2+ pulses, warm, well-perfused. No calf tenderness. No peripheral edema. NEUROLOGICAL: Cranial nerves II-XII intact. Normal speech. Normal gait. PSYCHIATRIC: Cooperative. Good eye contact. Appropriate mood and affect. SKIN: Warm, dry, normal turgor, no rashes or lesions noted, normal capillary refill. Laboratory Results - last 24 hr 12/30/17 12/30/17 12/30/17 10:40 10:40 10:50 WBC 11.1 H RBC 4.11 Hgb 12.4 Hct 38.0 D MCV 92.5 MCH 30.0 MCHC 32.5 RDW 17.1 H Plt Count 358 D MPV 9.4 Absolute Neuts (auto) 7.7 Neutrophils % 69.2 Lymphocytes % 17.6 D Monocytes % 6.7 Eosinophils % 6.2 H Basophils % 0.3 Nucleated RBC % 0 PT with INR 13.40 H INR 1.13 H Sodium Cancelled Potassium Cancelled Chloride Cancelled Carbon Dioxide Cancelled Anion Gap Cancelled BUN Cancelled Creatinine Cancelled Creat Clearance w eGFR Cancelled POC Glucometer Random Glucose Cancelled Calcium Cancelled Magnesium Cancelled Total Bilirubin Cancelled AST Cancelled ALT Cancelled Alkaline Phosphatase Cancelled Troponin I Total Protein Cancelled Albumin Cancelled TSH 12/30/17 12/30/17 12/30/17 11:48 18:16 21:44 WBC RBC Hgb Hct MCV MCH MCHC RDW Plt Count MPV Absolute Neuts (auto) Neutrophils % Lymphocytes % Monocytes % Eosinophils % Basophils % Nucleated RBC % PT with INR INR Sodium 139 Potassium 3.9 Chloride 102 Carbon Dioxide 27 Anion Gap 10 BUN 19 H Creatinine 4.9 H Creat Clearance w eGFR 12.31 POC Glucometer 189.08834 214 Random Glucose 245 H Calcium 8.4 L Magnesium 2.1 Total Bilirubin 0.3 AST 19 ALT 16 Alkaline Phosphatase 52 Troponin I 0.02 Total Protein 7.0 Albumin 2.6 L TSH 2.11 12/31/17 06:05 WBC RBC Hgb Hct MCV MCH MCHC RDW Plt Count MPV Absolute Neuts (auto) Neutrophils % Lymphocytes % Monocytes % Eosinophils % Basophils % Nucleated RBC % PT with INR INR Sodium Potassium Chloride Carbon Dioxide Anion Gap BUN Creatinine Creat Clearance w eGFR POC Glucometer 124 Random Glucose Calcium Magnesium Total Bilirubin AST ALT Alkaline Phosphatase Troponin I Total Protein Albumin TSH ASSESSMENT/PLAN:
[2017-12-30] MEDS ORDERED: METOPROLOL TARTRATE 5 MG/5 ML VIAL IVPUSH ONE (13:45)
[2017-12-30] MEDS ORDERED: METOPROLOL TARTRATE 5 MG/5 ML VIAL ONE (13:46)
--- NOTE | 2017-12-30 14:28 | CON.CARD ---
Consult Consult Specialty:: Cardiology Referred by:: Vinny Ravi Reason for Consultation:: SVT - History of Present Illness Chief Complaint: Elevated HR History of Present Illness: 57 year old male with a pmhx of htn, anemia, asthma/copd, dm, esrd on HD, pvd, and CVAx2, BIBEMS for tachycardia at dialysis. Patient without complaints. Was in dialysis with 30minutes left when noted to be tachycardic. In ER, noted to be in SVT which broke to sinus rhythm with adenosine. Than recurred and broke again with adenosine. Patient is without chest pain or sob. No pnd or orthopnea. Lying flat very comfortable. 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 Cardio/Vascular: Yes: HTN, Hyperlipdemia Pulmonary: Yes: Sleep Apnea Gastrointestinal: Yes: GERD, Other (obesity) Renal/: Yes: Renal Failure, Renal Inusuff, Hemodialysis, Other Endocrine: Yes: Diabetes Mellitus - Past Surgical History Past Surgical History: Yes: AV Fistula/Graft - Alcohol/Substance Use Hx Alcohol Use: No - Smoking History Smoking history: Never smoked Have you smoked in the past 12 months: No Aproximately how many cigarettes per day: 0 - Social History Usual Living Arrangement: Assisted ADL: Independent History of Recent Travel: No Home Medications - Allergies Allergies/Adverse Reactions: Allergies Allergy/AdvReac Type Severity Reaction Status Date / Time fish derived Allergy Severe Hives Verified 12/14/17 11:49 Shellfish Allergy Severe Verified 12/14/17 11:49 sulfamethoxazole Allergy Severe Swelling Verified 12/14/17 11:49 [From Bactrim DS] trimethoprim Allergy Severe Swelling Verified 12/14/17 11:49 [From Bactrim DS] - Home Medications Home Medications: Ambulatory Orders Omeprazole [Prilosec (RX)] 20 mg PO DAILY 08/13/14 Atorvastatin Ca [Lipitor] 80 mg PO HS 05/24/16 Albuterol Sulfate [Proair Respiclick] 90 mcg IH DAILY 11/13/16 Cholecalciferol (Vitamin D3) [Vitamin D3] 2,000 unit PO DAILY 11/13/16 Aspirin [ASA -] 81 mg PO DAILY #30 tab.chew 11/15/16 Pregabalin [Lyrica -] 100 mg PO DAILY MDD 50 mg 04/19/17 Calcium Acetate [Phoslo -] 1,334 mg PO TIDCM capsule 04/27/17 Polyethylene Glycol 3350 [Miralax 119 gm Btl -] 17 gm PO DAILY bottle 04/27/17 Carvedilol [Coreg -] 6.25 mg PO BID tablet 07/10/17 Torsemide [Demadex -] 80 mg PO MOWEFR tablet 07/10/17 Docusate Sodium [Colace -] 300 mg PO HS PRN 08/08/17 Sitagliptin Phosphate [Januvia -] 25 mg PO DAILY@0700 #30 tab 08/15/17 L. Acidophilus/L.bulgaricus [Lactobacillus Tablet] 1 each PO DAILY #30 tablet Vancomycin 1 gm Premix - 1 gm IV TUTHSA #3 bag 12/25/17 levoFLOXacin [Levaquin -] 250 mg PO Q48H #3 tablet 12/25/17 Family Disease History - Family Disease History Family Disease History: Heart Disease: Father ( of SANON at 43 ), CA: Mother ( Breast) Vital Signs: Vital Signs Temperature 97.6 F 12/30/17 10:54 Pulse Rate 74 12/30/17 13:57 Respiratory Rate 17 12/30/17 13:57 Blood Pressure 94/51 L 12/30/17 13:57 O2 Sat by Pulse Oximetry (%) 98 12/30/17 13:57 Constitutional: Yes: No Distress Respiratory: Yes: CTA Bilaterally Gastrointestinal: Yes: Soft Cardiovascular: Yes: Regular Rate and Rhythm JVD: No Carotid Bruit: No PMI: Non-Displaced Heart Sounds: Yes: S1, S2 Murmur: No: Systolic Murmur Extremities: Yes: Other (chronic skin changes) Edema: Yes Edema: LLE: Trace, RLE: Trace - Other Data Labs, Other Data: CBC, BMP 12/30/17 10:50 12/30/17 11:48 INR, PTT INR 1.13 (0.83-1.09) H 12/30/17 10:40 Assessment/Plan 57 year old male with a pmhx of htn, anemia, asthma/copd, dm, esrd on HD, pvd, and CVAx2, BIBEMS for tachycardia at dialysis. Patient without complaints. Was in dialysis with 30minutes left when noted to be tachycardic. In ER, noted to be in SVT which broke to sinus rhythm with adenosine. Than recurred and broke again with adenosine. Patient is without chest pain or sob. No pnd or orthopnea. Lying flat very comfortable. 1) SVT -Change his carvedilol to metoprolol 50mg q12 and will uptitrate as needed or increase frequency if needed (can be q8) based on BP. -Needs fluids as patient often gets hypovolemic in dialysis. Finish the 1 liter IVF's. -H/h stable. Monitor lytes -Admit to tele. -Ensure no infection issues which could trigger. -Check tft's
--- NOTE | 2017-12-30 14:49 | EKG ---
Test Reason : Blood Pressure : / mmHG Vent. Rate : 075 BPM Atrial Rate : 075 BPM P-R Int : 202 ms QRS Dur : 098 ms QT Int : 408 ms P-R-T Axes : 020 -63 056 degrees QTc Int : 455 ms SINUS RHYTHM WITH PREMATURE ATRIAL COMPLEXES LEFT ANTERIOR FASCICULAR BLOCK ABNORMAL ECG WHEN COMPARED WITH ECG OF 30-DEC-2017 10:42, PREMATURE ATRIAL COMPLEXES ARE NOW PRESENT VENT. RATE HAS DECREASED BY 73 BPM Confirmed by MD Wai, Panda ([id number]) on 12/30/2017 2:49:15 PM Referred By: Confirmed By:Panda Carreno MD
--- NOTE | 2017-12-30 14:52 | EKG ---
Test Reason : Blood Pressure : / mmHG Vent. Rate : 148 BPM Atrial Rate : 147 BPM P-R Int : 000 ms QRS Dur : 094 ms QT Int : 310 ms P-R-T Axes : 000 -72 054 degrees QTc Int : 486 ms SUPRAVENTRICULAR TACHYCARDIA LEFT AXIS DEVIATION ABNORMAL ECG Confirmed by MD Wai, Panda ([id number]) on 12/30/2017 2:52:40 PM Referred By: Confirmed By:Panda Carreno MD
[2017-12-30] MEDS ORDERED: DOCUSATE SODIUM 100 MG CAPSULE (FP) PO PRN (14:56)
[2017-12-30] MEDS ORDERED: SODIUM CHLORIDE 1,000 ML IV ONE ×2 (15:04→15:44)
--- NOTE | 2017-12-30 15:06 | PN ---
Teaching Attending Note Name of Resident: Noman Cohn ATTENDING PHYSICIAN STATEMENT I saw and evaluated the patient. I reviewed the resident's note and discussed the case with the resident. I agree with the resident's findings and plan as documented. SUBJECTIVE: 57 yr old man with ESRD on dialysis TTS, DM II, morbid obesity, HTN, referred from hemodialysis for asymptomatic tachycardia and hypotension. He states that he has been in his [facility] OBJECTIVE: Last Vital Signs Temp Pulse Resp BP Pulse Ox 97.6 F 74 17 94/51 L 98 12/30/17 10:54 12/30/17 13:57 12/30/17 13:57 12/30/17 13:57 12/30/17 13:57 CBCD WBC 11.1 K/mm3 (4.0-10.0) H 12/30/17 10:50 RBC 4.11 M/mm3 (4.00-5.60) 12/30/17 10:50 Hgb 12.4 GM/dL (11.7-16.9) 12/30/17 10:50 Hct 38.0 % (35.4-49) D 12/30/17 10:50 MCV 92.5 fl (80-96) 12/30/17 10:50 MCHC 32.5 g/dl (32.0-35.9) 12/30/17 10:50 RDW 17.1 % (11.9-15.9) H 12/30/17 10:50 Plt Count 358 K/MM3 (134-434) D 12/30/17 10:50 MPV 9.4 fl (7.5-11.1) 12/30/17 10:50 CMP Sodium 139 mmol/L (136-145) 12/30/17 11:48 Potassium 3.9 mmol/L (3.5-5.1) 12/30/17 11:48 Chloride 102 mmol/L (98-107) 12/30/17 11:48 Carbon Dioxide 27 mmol/L (21-32) 12/30/17 11:48 Anion Gap 10 MMOL/L (8-16) 12/30/17 11:48 BUN 19 mg/dL (7-18) H 12/30/17 11:48 Creatinine 4.9 mg/dL (0.55-1.3) H 12/30/17 11:48 Creat Clearance w eGFR 12.31 (>60) 12/30/17 11:48 Random Glucose 245 mg/dL (74-106) H 12/30/17 11:48 Calcium 8.4 mg/dL (8.5-10.1) L 12/30/17 11:48 Total Bilirubin 0.3 mg/dL (0.2-1) 12/30/17 11:48 AST 19 U/L (15-37) 12/30/17 11:48 ALT 16 U/L (13-61) 12/30/17 11:48 Alkaline Phosphatase 52 U/L (45-117) 12/30/17 11:48 Total Protein 7.0 g/dl (6.4-8.2) 12/30/17 11:48 Albumin 2.6 g/dl (3.4-5.0) L 12/30/17 11:48 CARDIAC ENZYMES Troponin I 0.02 ng/ml (0.00-0.05) 12/30/17 11:48 Home Medications Medication Instructions Recorded Omeprazole [Prilosec (RX)] 20 mg PO DAILY 08/13/14 Atorvastatin Ca [Lipitor] 80 mg PO HS 05/24/16 Albuterol Sulfate [Proair 90 mcg IH DAILY 11/13/16 Respiclick] Cholecalciferol (Vitamin D3) 2,000 unit PO DAILY 11/13/16 [Vitamin D3] Aspirin [ASA -] 81 mg PO DAILY #30 tab.chew 11/15/16 Pregabalin [Lyrica -] 100 mg PO DAILY MDD 50 mg 04/19/17 Calcium Acetate [Phoslo -] 1,334 mg PO TIDCM capsule 04/27/17 Polyethylene Glycol 3350 [Miralax 17 gm PO DAILY bottle 04/27/17 119 gm Btl -] Carvedilol [Coreg -] 6.25 mg PO BID tablet 07/10/17 Torsemide [Demadex -] 80 mg PO MOWEFR tablet 07/10/17 Docusate Sodium [Colace -] 300 mg PO HS PRN 08/08/17 Sitagliptin Phosphate [Januvia -] 25 mg PO DAILY@0700 #30 tab 08/15/17 L. Acidophilus/L.bulgaricus 1 each PO DAILY #30 tablet 12/25/17 [Lactobacillus Tablet] Vancomycin 1 gm Premix - 1 gm IV TUTHSA #3 bag 12/25/17 levoFLOXacin [Levaquin -] 250 mg PO Q48H #3 tablet 12/25/17 Current Medications Generic Name Dose Route Start Last Admin Trade Name Freq PRN Reason Stop Dose Admin Aspirin 81 mg 12/31/17 10:00 Asa - PO DAILY [facility] Atorvastatin Calcium 80 mg 12/30/17 22:00 Lipitor - PO HS [facility] Calcium Acetate 1,334 mg 12/30/17 17:30 Phoslo - PO TIDCM [facility] Docusate Sodium 300 mg 12/30/17 14:56 Colace - PO HS PRN CONSTIPATION Sodium Chloride 1,000 mls @ 1,000 mls/hr 12/30/17 15:04 Normal Saline - IV 12/30/17 16:03 .Q1H ONE Sodium Chloride 1,000 mls @ 200 mls/hr 12/30/17 10:00 Normal Saline - IV ASDIR [facility] Levofloxacin 250 mg 12/31/17 15:00 Levaquin - PO Q48H [facility] Metoprolol Tartrate 50 mg 12/30/17 22:00 Lopressor - PO BID [facility] Non-Formulary Medication 90 mcg 12/31/17 10:00 Albuterol Sulfate [Proair Respiclick] IH DAILY [facility] Non-Formulary Medication 2,000 unit 12/31/17 10:00 Cholecalciferol (Vitamin D3) [Vitamin D3] PO DAILY [facility] Non-Formulary Medication 1 each 12/31/17 10:00 L. Acidophilus/L.Bulgaricus [Lactobacillus Tablet] PO DAILY [facility] Non-Formulary Medication 20 mg 12/31/17 10:00 Omeprazole Pediatric Solution PO DAILY [facility] Non-Formulary Medication 1 gm 01/02/18 15:00 Vancomycin 1 Gm Premix - IV TUTHSA [facility] Polyethylene Glycol 17 gm 12/31/17 10:00 Miralax (For Daily Use) - PO DAILY [facility] Pregabalin 100 mg 12/31/17 10:00 Lyrica - PO DAILY [facility] Torsemide 80 mg 01/01/18 14:56 Demadex - PO MOWEFR [facility] ASSESSMENT AND PLAN: 57 y/o M W ESRD on dialysis TTS, DM II, morbid obesity, HTN, referred from hemodialysis for asymptomatic tachycardia and hypotension 3 hours through his HD , was found to be in SVT and hypotensive, SVT broke with IV adenosine and cardizem, cardiology was consulted and patient is to be hydrated and started on metoprolol. SVT: likely combination of his baseline cardiac disease (has DM, ESRD) and dehydration. He also has morbid obesity which puts him at risk HOLLY and SVTs. also will evaluate the TFTs C/W cardiology recs and started on metoprolol, per his home medication he is carvedilol at home. Keep Mg>2. K in Nl range. Admit to tele Will likely benefit from out patient holter and EP studise. recent TTE report only significant for concentric LVH,no prominent TR to evaluated RH pressures. ESRD: patient still makes urine, will give boluses of IV fluids and evaluate the response, on torsemide at home, unclear why he is on torsemide while he is on HD at this time. Chronic venous insufficiency changes in the TERESA:needs to be further evaluated by vascular for further management plan. Foot ulcer: is on IV vanc and levoquin per ID recs, will /CW current DC management plan Will ask podiatry to re evaluate the patient. DM: FS fasting and AC, with basal/ AC regimen per home regimen. DM/HTN/Morbid obesity: C/W home dose of statinsm, C/W home ASA neuropathy: C/W home medication
--- NOTE | 2017-12-30 15:29 | CONSULT ---
Consult Consult Specialty:: Nephrology Reason for Consultation:: ESRD - History of Present Illness Chief Complaint: sent in for tachycardia from dialysis History of Present Illness: Pt is a 57 year old male with pmhx of ESRD, DM, obesity, anemia, HTN, and lower ext infection who I sent in from HD for tachycardia. He was found to have pulse of about 130 by the end of his HD treatment. I sent him to ER for evaluation. He was asymptomatic at the time. He was recently discharged from the hospital with a foot infection. He denies shortness of breath. He is awake and alert. He was found to be in SVT in the ER. He received adenosine and metoprolol in the ER. He is now in sinus. 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 Cardio/Vascular: Yes: HTN, Hyperlipdemia Pulmonary: Yes: Sleep Apnea Gastrointestinal: Yes: GERD, Other (obesity) Renal/: Yes: Renal Failure, Renal Inusuff, Hemodialysis, Other Endocrine: Yes: Diabetes Mellitus - Past Surgical History Past Surgical History: Yes: AV Fistula/Graft - Alcohol/Substance Use Hx Alcohol Use: No - Smoking History Smoking history: Never smoked Have you smoked in the past 12 months: No Aproximately how many cigarettes per day: 0 - Social History Usual Living Arrangement: Detention ADL: Independent History of Recent Travel: No Home Medications - Allergies Allergies/Adverse Reactions: Allergies Allergy/AdvReac Type Severity Reaction Status Date / Time fish derived Allergy Severe Hives Verified 12/14/17 11:49 Shellfish Allergy Severe Verified 12/14/17 11:49 sulfamethoxazole Allergy Severe Swelling Verified 12/14/17 11:49 [From Bactrim DS] trimethoprim Allergy Severe Swelling Verified 12/14/17 11:49 [From Bactrim DS] - Home Medications Home Medications: Ambulatory Orders Omeprazole [Prilosec (RX)] 20 mg PO DAILY 08/13/14 Atorvastatin Ca [Lipitor] 80 mg PO HS 05/24/16 Albuterol Sulfate [Proair Respiclick] 90 mcg IH DAILY 11/13/16 Cholecalciferol (Vitamin D3) [Vitamin D3] 2,000 unit PO DAILY 11/13/16 Aspirin [ASA -] 81 mg PO DAILY #30 tab.chew 11/15/16 Pregabalin [Lyrica -] 100 mg PO DAILY MDD 50 mg 04/19/17 Calcium Acetate [Phoslo -] 1,334 mg PO TIDCM capsule 04/27/17 Polyethylene Glycol 3350 [Miralax 119 gm Btl -] 17 gm PO DAILY bottle 04/27/17 Carvedilol [Coreg -] 6.25 mg PO BID tablet 07/10/17 Torsemide [Demadex -] 80 mg PO MOWEFR tablet 07/10/17 Docusate Sodium [Colace -] 300 mg PO HS PRN 08/08/17 Sitagliptin Phosphate [Januvia -] 25 mg PO DAILY@0700 #30 tab 08/15/17 L. Acidophilus/L.bulgaricus [Lactobacillus Tablet] 1 each PO DAILY #30 tablet Vancomycin 1 gm Premix - 1 gm IV TUTHSA #3 bag 12/25/17 levoFLOXacin [Levaquin -] 250 mg PO Q48H #3 tablet 12/25/17 Family Disease History - Family Disease History Family Disease History: Heart Disease: Father ( of SANON at 43 ), CA: Mother ( Breast) Review of Systems - Review of Systems Constitutional: reports: No Symptoms Eyes: reports: No Symptoms HENT: reports: No Symptoms Neck: reports: No Symptoms Cardiovascular: reports: Palpitations Respiratory: reports: No Symptoms Gastrointestinal: reports: No Symptoms Genitourinary: reports: No Symptoms Integumentary: reports: No Symptoms Neurological: reports: No Symptoms Endocrine: reports: No Symptoms Physical Exam Vital Signs: Vital Signs Temperature 97.6 F 12/30/17 10:54 Pulse Rate 74 12/30/17 13:57 Respiratory Rate 17 12/30/17 13:57 Blood Pressure 94/51 L 12/30/17 13:57 O2 Sat by Pulse Oximetry (%) 98 12/30/17 13:57 Constitutional: Yes: Calm Eyes: Yes: Conjunctiva Clear HENT: Yes: Atraumatic Neck: Yes: Supple Cardiovascular: Yes: Regular Rate and Rhythm, S1, S2 Respiratory: Yes: CTA Bilaterally Gastrointestinal: Yes: Soft, Abdomen, Obese Renal/: Yes: WNL Musculoskeletal: Yes: WNL Edema: Yes Edema: LLE: 1+, RLE: 1+ Integumentary: Yes: Erythema Neurological: Yes: Oriented Psychiatric: Yes: Oriented Labs: CBC, BMP 12/30/17 10:50 12/30/17 11:48 Laboratory Tests 12/30/17 12/30/17 10:50 11:48 WBC 11.1 H Hgb 12.4 Sodium 139 Potassium 3.9 Chloride 102 BUN 19 H Creatinine 4.9 H Imaging - Results Chest X-ray: Report Reviewed Problem List - Problems (1) SVT (supraventricular tachycardia) Code(s): I47.1 - SUPRAVENTRICULAR TACHYCARDIA (2) ESRD (end stage renal disease) Code(s): N18.6 - END STAGE RENAL DISEASE (3) Abnormal EKG Code(s): R94.31 - ABNORMAL ELECTROCARDIOGRAM [ECG] [EKG] (4) COPD (chronic obstructive pulmonary disease) Code(s): J44.9 - CHRONIC OBSTRUCTIVE PULMONARY DISEASE, UNSPECIFIED (5) Cellulitis Code(s): L03.90 - CELLULITIS, UNSPECIFIED (6) Diabetes mellitus Code(s): E11.9 - TYPE 2 DIABETES MELLITUS WITHOUT COMPLICATIONS Qualifiers: Diabetes mellitus type: type 2 Assessment/Plan Current Medications Generic Name Dose Route Start Last Admin Trade Name Freq PRN Reason Stop Dose Admin Albuterol Sulfate 1 puff 12/31/17 10:00 Ventolin Hfa Inhaler - IH Q8H PRN SHORTNESS OF BREATH Aspirin 81 mg 12/31/17 10:00 Asa - PO DAILY [facility] Atorvastatin Calcium 80 mg 12/30/17 22:00 Lipitor - PO HS [facility] Calcium Acetate 1,334 mg 12/30/17 17:30 Phoslo - PO TIDCM [facility] Cholecalciferol 2,000 unit 12/31/17 10:00 Vitamin D3 - PO DAILY [facility] Collagenase 1 applic 12/31/17 10:00 Santyl - TP DAILY [facility] Protocol Heparin Sodium (Porcine) 5,000 unit 12/30/17 22:00 Heparin - SQ TID [facility] Sodium Chloride 1,000 mls @ 200 mls/hr 12/30/17 10:00 12/30/17 10:50 Normal Saline - IV 200 mls/hr ASDIR [facility] Administration Insulin Aspart 1 vial 12/30/17 16:30 12/30/17 18:22 Novolog Vial Sliding Scale - SQ 2 units ACHS [facility] Administration Protocol Lactobacillus Acidophilus 1 tab 12/31/17 10:00 Bacid - PO DAILY [facility] Levofloxacin 250 mg 12/31/17 10:00 Levaquin - PO Q2D@1000 [facility] Metoprolol Tartrate 50 mg 12/30/17 22:00 Lopressor - PO BID [facility] Non-Formulary Medication 1 gm 01/02/18 15:00 Vancomycin 1 Gm Premix - IV TUTHSA [facility] Pregabalin 100 mg 12/31/17 10:00 Lyrica - PO DAILY [facility] Ranitidine HCl 150 mg 12/31/17 10:00 Zantac Oral Solution - PO DAILY [facility] Torsemide 80 mg 01/01/18 10:00 Demadex - PO MoWeFr@1000 [facility] Impression 1. ESRD 2. anemia 3. HTN 4. morbid obesity 5. CVA 6. hyperlipidemia 7. proteinuria - nephrotic 8. PVD 9. foot ulcer 10. SVT 11. left hilum density on CXR Plan - rate is controlled - cardio input appreciated - admit to tele - he had hd today, next hd on Monday - will need ct chest when stable - cont wound care - epogen for anemia - will follow
[2017-12-30] MEDS ORDERED: INSULIN (NOVOLOG) ASPART 100 UNITS/ML 10ML VIAL ONE (18:21)
[2017-12-30] MEDS: INSULIN SLIDING SCALE (NOVOLOG) 1 VIAL SQ SCH ×2 (18:22→21:46)
[2017-12-30] MEDS: ATORVASTATIN CA 80 MG TABLET (FP) PO SCH (21:39)
[2017-12-30] MEDS: METOPROLOL TARTRATE 50 MG TABLET (FP) PO SCH (21:39)
[2017-12-30] MEDS: CALCIUM ACETATE 667 MG CAPSULE (FP) PO SCH (21:39)
[2017-12-30] MEDS: HEPARIN NA (PORCINE) 5,000 UNITS/ML 1ML VIAL SQ SCH (21:39)
[2017-12-30] MEDS ORDERED: CARVEDILOL 6.25 MG TABLET (FP) PO SCH (22:00)
[2017-12-30 23:22] VITALS: BMI 27.8
[2017-12-31] MEDS: HEPARIN NA (PORCINE) 5,000 UNITS/ML 1ML VIAL SQ SCH ×3 (06:03→21:26)
[2017-12-31] MEDS: INSULIN SLIDING SCALE (NOVOLOG) 1 VIAL SQ SCH ×4 (06:08→21:28)
[2017-12-31] MEDS: CALCIUM ACETATE 667 MG CAPSULE (FP) PO SCH ×3 (09:55→16:54)
[2017-12-31] MEDS ORDERED: POLYETHYLENE GLYCOL 3350 119 GM BTL PO SCH (10:00)
[2017-12-31] MEDS ORDERED: COLLAGENASE CLOSTRIDIUM HIST. 30 GRAMS TUBE TP SCH (10:00)
[2017-12-31] MEDS ORDERED: ALBUTEROL SO4 8 GM HFA INHALER IH PRN (10:00)
[2017-12-31] MEDS ORDERED: PT OWN MED DRAWER 7, Y5N ONE ×2 (10:29→12:53)
[2017-12-31] MEDS: RANITIDINE HCL 150 MG/10 ML UNIT-DOSE PO SCH (10:42)
[2017-12-31] MEDS: LACTOBACILLUS ACIDOPHILUS 1 TABLET PO SCH (10:43)
[2017-12-31] MEDS: ASPIRIN 81 MG CHEWABLE TABLETS PO SCH (10:43)
[2017-12-31] MEDS: METOPROLOL TARTRATE 50 MG TABLET (FP) PO SCH ×2 (10:44→21:27)
[2017-12-31] MEDS: PREGABALIN 50 MG CAPSULE PO SCH (10:44)
[2017-12-31] MEDS: CHOLECALCIFEROL (VITAMIN D3) 1,000 UNIT TABLET (FP) PO SCH (10:45)
[2017-12-31] MEDS: SODIUM CHLORIDE 1,000 ML IV SCH (11:00)
--- NOTE | 2017-12-31 11:37 | PN ---
Progress Note (short form) - Note Progress Note: asymptomatic. states he had no symptoms during the event or now. denies CP, SOB , fever, chills, N/V/C/d Current Medications Generic Name Dose Route Start Last Admin Trade Name Freq PRN Reason Stop Dose Admin Albuterol Sulfate 1 puff 12/31/17 10:00 Ventolin Hfa Inhaler - IH Q8H PRN SHORTNESS OF BREATH Aspirin 81 mg 12/31/17 10:00 12/31/17 10:43 Asa - PO 81 mg DAILY [facility] Administration Atorvastatin Calcium 80 mg 12/30/17 22:00 12/30/17 21:39 Lipitor - PO 80 mg HS [facility] Administration Calcium Acetate 1,334 mg 12/30/17 17:30 12/31/17 09:55 Phoslo - PO Not Given TIDCM [facility] Cholecalciferol 2,000 unit 12/31/17 10:00 12/31/17 10:45 Vitamin D3 - PO 2,000 unit DAILY [facility] Administration Collagenase 1 applic 12/31/17 10:00 Santyl - TP DAILY [facility] Protocol Heparin Sodium (Porcine) 5,000 unit 12/30/17 22:00 12/31/17 06:03 Heparin - SQ 5,000 unit TID [facility] Administration Sodium Chloride 1,000 mls @ 200 mls/hr 12/30/17 10:00 12/30/17 10:50 Normal Saline - IV 200 mls/hr ASDIR [facility] Administration Insulin Aspart 1 vial 12/30/17 16:30 12/31/17 10:55 Novolog Vial Sliding Scale - SQ 4 units ACHS [facility] Administration Protocol Lactobacillus Acidophilus 1 tab 12/31/17 10:00 12/31/17 10:43 Bacid - PO 1 tab DAILY [facility] Administration Levofloxacin 250 mg 12/31/17 10:00 12/31/17 10:44 Levaquin - PO 250 mg Q2D@1000 [facility] Administration Metoprolol Tartrate 50 mg 12/30/17 22:00 12/31/17 10:44 Lopressor - PO 50 mg BID [facility] Administration Non-Formulary Medication 1 gm 01/02/18 15:00 Vancomycin 1 Gm Premix - IV TUTHSA [facility] Pregabalin 100 mg 12/31/17 10:00 12/31/17 10:44 Lyrica - PO 100 mg DAILY [facility] Administration Ranitidine HCl 150 mg 12/31/17 10:00 12/31/17 10:42 Zantac Oral Solution - PO 150 mg DAILY [facility] Administration Torsemide 80 mg 01/01/18 10:00 Demadex - PO MoWeFr@1000 [facility] Last Vital Signs Temp Pulse Resp BP Pulse Ox 98.1 F 69 20 81/47 L 100 12/31/17 06:00 12/31/17 06:00 12/31/17 06:00 12/31/17 06:00 12/30/17 19:30 General NAD HEENT moist oral mucosa CV S1 S2 RRR no murmur/rub/gallop Lungs CTA B/L no wheezing/rales/rhonchi Assessment and plan 57 yo M with pMHx anemia, asthma, COPD, DM, HTN, ESRD (HD TTS), PVD, and CVA, and recurring cellulitis presented to the ER from HD due to hypotension and found to be in SVT 1. SVT-possible induced from hypotension. s/p adenosine x3. and currently in NSR. was hydrated on presentation no signs of infection, TSH normal. coreg was switched to metoprolol with good response. no events noted on monitor. cardio on board. echo from earlier this year noted 2. RLE cellulitis- due for last dose of Levaquin today. last dose of Vanco scheduled for tuesday 01/02. f/u with podiatry in office 3. ESRD on HD_ cont regular schedule TTS 4. COPD 5. PVD 6. CVA 7. morbid obesity- BMI 27 8. DVT ppx- hep sq 9. anticipate discharge in next 24H if HR remains controlled. Visit type - Emergency Visit Emergency Visit: Yes ED Registration Date: 12/30/17 Care time: The patient presented to the Emergency Department on the above date and was hospitalized for further evaluation of their emergent condition. - New Patient This patient is new to me today: Yes Date on this admission: 12/31/17 - Critical Care Critical Care patient: No - Discharge Referral Referred to [facility] No
--- NOTE | 2017-12-31 13:03 | PN ---
Progress Note, Physician Chief Complaint: No complaints today Sinus No recurrent SVT History of Present Illness: 57 year old male with a pmhx of htn, anemia, asthma/copd, dm, esrd on HD, pvd, and CVAx2, BIBEMS for tachycardia at dialysis. Patient without complaints. Was in dialysis with 30minutes left when noted to be tachycardic. In ER, noted to be in SVT which broke to sinus rhythm with adenosine. Than recurred and broke again with adenosine. Patient is without chest pain or sob. No pnd or orthopnea. Lying flat very comfortable. - Current Medication List Current Medications: Active Medications Albuterol Sulfate (Ventolin Hfa Inhaler -) 1 puff IH Q8H PRN PRN Reason: SHORTNESS OF BREATH Aspirin (Asa -) 81 mg PO DAILY [facility] Last Admin: 12/31/17 10:43 Dose: 81 mg Atorvastatin Calcium (Lipitor -) 80 mg PO HS [facility] Last Admin: 12/30/17 21:39 Dose: 80 mg Calcium Acetate (Phoslo -) 1,334 mg PO TIDCM [facility] Last Admin: 12/31/17 09:55 Dose: Not Given Cholecalciferol (Vitamin D3 -) 2,000 unit PO DAILY [facility] Last Admin: 12/31/17 10:45 Dose: 2,000 unit Collagenase (Santyl -) 1 applic TP DAILY [facility]; Protocol Heparin Sodium (Porcine) (Heparin -) 5,000 unit SQ TID [facility] Last Admin: 12/31/17 06:03 Dose: 5,000 unit Sodium Chloride (Normal Saline -) 1,000 mls @ 200 mls/hr IV ASDIR [facility] Last Admin: 12/30/17 10:50 Dose: 200 mls/hr Insulin Aspart (Novolog Vial Sliding Scale -) 1 vial SQ ACHS [facility]; Protocol Last Admin: 12/31/17 10:55 Dose: 4 units Lactobacillus Acidophilus (Bacid -) 1 tab PO DAILY [facility] Last Admin: 12/31/17 10:43 Dose: 1 tab Levofloxacin (Levaquin -) 250 mg PO Q2D@1000 [facility] Last Admin: 12/31/17 10:44 Dose: 250 mg Metoprolol Tartrate (Lopressor -) 50 mg PO BID [facility] Last Admin: 12/31/17 10:44 Dose: 50 mg Non-Formulary Medication (Vancomycin 1 Gm Premix -) 1 gm IV TUTA [facility] Pregabalin (Lyrica -) 100 mg PO DAILY [facility] Last Admin: 12/31/17 10:44 Dose: 100 mg Ranitidine HCl (Zantac Oral Solution -) 150 mg PO DAILY [facility] Last Admin: 12/31/17 10:42 Dose: 150 mg Torsemide (Demadex -) 80 mg PO MoWeFr@1000 [facility] - Objective Vital Signs: Vital Signs Temperature 98.4 F 12/31/17 10:00 Pulse Rate 66 12/31/17 10:00 Respiratory Rate 20 12/31/17 10:00 Blood Pressure 125/70 12/31/17 10:00 O2 Sat by Pulse Oximetry (%) 97 12/31/17 10:00 Constitutional: Yes: No Distress Neck: Yes: Supple Cardiovascular: Yes: Regular Rate and Rhythm, S1, S2. No: JVD Respiratory: Yes: CTA Bilaterally Gastrointestinal: Yes: WNL Edema: LLE: Trace, RLE: Trace Labs: CBC, BMP 12/30/17 10:50 12/30/17 11:48 INR, PTT INR 1.13 (0.83-1.09) H 12/30/17 10:40 Problem List - Problems (1) SVT (supraventricular tachycardia) Code(s): I47.1 - SUPRAVENTRICULAR TACHYCARDIA Assessment/Plan 57 year old male with a pmhx of htn, anemia, asthma/copd, dm, esrd on HD, pvd, and CVAx2, BIBEMS for tachycardia at dialysis. Patient without complaints. Was in dialysis with 30minutes left when noted to be tachycardic. In ER, noted to be in SVT which broke to sinus rhythm with adenosine. Than recurred and broke again with adenosine. Patient is without chest pain or sob. No pnd or orthopnea. Lying flat very comfortable. 1) SVT -Likely was in setting of dialysis/fluid shift and hypovolemia. Continue metoprolol 50mg q12 S/p IVF bolus yesterday. Avoid hypovolemia in dialysis No further events since on tele. Will monitor another 24 hours and if no further svt than no further cardiac work up. Outpt follow up wiht Dr. Naylor [phone]
--- NOTE | 2017-12-31 16:42 | PN ---
Progress Note, Physician History of Present Illness: Pt seen and examined at bedside. He is awake and alert. - Current Medication List Current Medications: Active Medications Albuterol Sulfate (Ventolin Hfa Inhaler -) 1 puff IH Q8H PRN PRN Reason: SHORTNESS OF BREATH Aspirin (Asa -) 81 mg PO DAILY [facility] Last Admin: 12/31/17 10:43 Dose: 81 mg Atorvastatin Calcium (Lipitor -) 80 mg PO HS [facility] Last Admin: 12/30/17 21:39 Dose: 80 mg Calcium Acetate (Phoslo -) 1,334 mg PO TIDCM [facility] Last Admin: 12/31/17 11:55 Dose: 1,334 mg Cholecalciferol (Vitamin D3 -) 2,000 unit PO DAILY [facility] Last Admin: 12/31/17 10:45 Dose: 2,000 unit Collagenase (Santyl -) 1 applic TP DAILY [facility]; Protocol Last Admin: 12/31/17 12:00 Dose: 1 applic Heparin Sodium (Porcine) (Heparin -) 5,000 unit SQ TID [facility] Last Admin: 12/31/17 13:26 Dose: 5,000 unit Sodium Chloride (Normal Saline -) 1,000 mls @ 200 mls/hr IV ASDIR [facility] Last Admin: 12/30/17 10:50 Dose: 200 mls/hr Insulin Aspart (Novolog Vial Sliding Scale -) 1 vial SQ ACHS [facility]; Protocol Last Admin: 12/31/17 10:55 Dose: 4 units Lactobacillus Acidophilus (Bacid -) 1 tab PO DAILY [facility] Last Admin: 12/31/17 10:43 Dose: 1 tab Levofloxacin (Levaquin -) 250 mg PO Q2D@1000 [facility] Last Admin: 12/31/17 10:44 Dose: 250 mg Metoprolol Tartrate (Lopressor -) 50 mg PO BID [facility] Last Admin: 12/31/17 10:44 Dose: 50 mg Non-Formulary Medication (Vancomycin 1 Gm Premix -) 1 gm IV TUTHSA [facility] Pregabalin (Lyrica -) 100 mg PO DAILY [facility] Last Admin: 12/31/17 10:44 Dose: 100 mg Ranitidine HCl (Zantac Oral Solution -) 150 mg PO DAILY [facility] Last Admin: 12/31/17 10:42 Dose: 150 mg Torsemide (Demadex -) 80 mg PO MoWeFr@1000 [facility] - Objective Vital Signs: Vital Signs Temperature 98.8 F 12/31/17 14:00 Pulse Rate 68 12/31/17 14:00 Respiratory Rate 20 12/31/17 10:00 Blood Pressure 100/55 L 12/31/17 14:00 O2 Sat by Pulse Oximetry (%) 97 12/31/17 10:00 Constitutional: Yes: Calm Eyes: Yes: Conjunctiva Clear HENT: Yes: Atraumatic Neck: Yes: Supple Cardiovascular: Yes: S1, S2 Respiratory: Yes: CTA Bilaterally Gastrointestinal: Yes: Soft, Abdomen, Obese Genitourinary: Yes: WNL Musculoskeletal: Yes: WNL Edema: Yes Edema: LLE: Trace, RLE: Trace Neurological: Yes: Oriented Psychiatric: Yes: Oriented Labs: CBC, BMP 12/30/17 10:50 12/30/17 11:48 INR, PTT INR 1.13 (0.83-1.09) H 12/30/17 10:40 Problem List - Problems (1) SVT (supraventricular tachycardia) Code(s): I47.1 - SUPRAVENTRICULAR TACHYCARDIA (2) ESRD (end stage renal disease) Code(s): N18.6 - END STAGE RENAL DISEASE (3) Abnormal EKG Code(s): R94.31 - ABNORMAL ELECTROCARDIOGRAM [ECG] [EKG] (4) COPD (chronic obstructive pulmonary disease) Code(s): J44.9 - CHRONIC OBSTRUCTIVE PULMONARY DISEASE, UNSPECIFIED (5) Cellulitis Code(s): L03.90 - CELLULITIS, UNSPECIFIED (6) Diabetes mellitus Code(s): E11.9 - TYPE 2 DIABETES MELLITUS WITHOUT COMPLICATIONS Qualifiers: Diabetes mellitus type: type 2 Assessment/Plan Current Medications Generic Name Dose Route Start Last Admin Trade Name Freq PRN Reason Stop Dose Admin Albuterol Sulfate 1 puff 12/31/17 10:00 Ventolin Hfa Inhaler - IH Q8H PRN SHORTNESS OF BREATH Aspirin 81 mg 12/31/17 10:00 12/31/17 10:43 Asa - PO 81 mg DAILY [facility] Administration Atorvastatin Calcium 80 mg 12/30/17 22:00 12/30/17 21:39 Lipitor - PO 80 mg HS [facility] Administration Calcium Acetate 1,334 mg 12/30/17 17:30 12/31/17 11:55 Phoslo - PO 1,334 mg TIDCM [facility] Administration Cholecalciferol 2,000 unit 12/31/17 10:00 12/31/17 10:45 Vitamin D3 - PO 2,000 unit DAILY [facility] Administration Collagenase 1 applic 12/31/17 10:00 12/31/17 12:00 Santyl - TP 1 applic DAILY [facility] Administration Protocol Heparin Sodium (Porcine) 5,000 unit 12/30/17 22:00 12/31/17 13:26 Heparin - SQ 5,000 unit TID [facility] Administration Sodium Chloride 1,000 mls @ 200 mls/hr 12/30/17 10:00 12/30/17 10:50 Normal Saline - IV 200 mls/hr ASDIR [facility] Administration Insulin Aspart 1 vial 12/30/17 16:30 12/31/17 10:55 Novolog Vial Sliding Scale - SQ 4 units ACHS [facility] Administration Protocol Lactobacillus Acidophilus 1 tab 12/31/17 10:00 12/31/17 10:43 Bacid - PO 1 tab DAILY [facility] Administration Levofloxacin 250 mg 12/31/17 10:00 12/31/17 10:44 Levaquin - PO 250 mg Q2D@1000 [facility] Administration Metoprolol Tartrate 50 mg 12/30/17 22:00 12/31/17 10:44 Lopressor - PO 50 mg BID [facility] Administration Non-Formulary Medication 1 gm 01/02/18 15:00 Vancomycin 1 Gm Premix - IV TUTHSA [facility] Pregabalin 100 mg 12/31/17 10:00 12/31/17 10:44 Lyrica - PO 100 mg DAILY [facility] Administration Ranitidine HCl 150 mg 12/31/17 10:00 12/31/17 10:42 Zantac Oral Solution - PO 150 mg DAILY [facility] Administration Torsemide 80 mg 01/01/18 10:00 Demadex - PO MoWeFr@1000 [facility] Impression 1. ESRD 2. anemia 3. HTN 4. morbid obesity 5. CVA 6. hyperlipidemia 7. proteinuria - nephrotic 8. PVD 9. foot ulcer 10. SVT 11. left hilum density on CXR Plan - will increase HD dry weight - cardio input appreciated - HD on Monday - will need ct chest when stable - cont wound care - epogen for anemia - will follow
[2017-12-31] MEDS: ATORVASTATIN CA 80 MG TABLET (FP) PO SCH (21:27)
[2018-01-01 06:11] VITALS: TEMP 98.4
[2018-01-01] MEDS: INSULIN SLIDING SCALE (NOVOLOG) 1 VIAL SQ SCH (06:24)
[2018-01-01] MEDS: HEPARIN NA (PORCINE) 5,000 UNITS/ML 1ML VIAL SQ SCH (06:24)
[2018-01-01] MEDS: CALCIUM ACETATE 667 MG CAPSULE (FP) PO SCH (08:00)
[2018-01-01 08:28] VITALS: BP 128/73; PULSE 64
--- NOTE | 2018-01-01 08:47 | PN ---
Physical Exam: SUBJECTIVE: Patient seen and examined at beside. No acute events overnight. Denies chest pain, sob, fever, or chills. OBJECTIVE: Vital Signs Period Temp Pulse Resp BP Sys/Leon Pulse Ox Last 24 Hr 98.2 F-98.8 F 58-68 18-20 99-128/55-73 96-98 GENERAL: AAOx3, NAD HEAD: NC/AT ENT: MMM NECK: Trachea midline, full range of motion, supple. LUNGS: CTA B/L HEART: RRR ABDOMEN: Soft ND No HSM, BS+ EXTREMITIES: 2+ pulses, warm, well-perfused, no edema. NEUROLOGICAL: CN 2-12 intact PSYCH: Normal mood, normal affect. SKIN: Severe Venous Stasis b/l Lower extremities Laboratory Results - last 24 hr 12/31/17 12/31/17 12/31/17 10:54 16:56 21:26 POC Glucometer 232 133 161 01/01/18 05:42 POC Glucometer 109 Active Medications Generic Name Dose Route Start Last Admin Trade Name Freq PRN Reason Stop Dose Admin Albuterol Sulfate 1 puff 12/31/17 10:00 Ventolin Hfa Inhaler - IH Q8H PRN SHORTNESS OF BREATH Aspirin 81 mg 12/31/17 10:00 12/31/17 10:43 Asa - PO 81 mg DAILY [facility] Administration Atorvastatin Calcium 80 mg 12/30/17 22:00 12/31/17 21:27 Lipitor - PO 80 mg HS [facility] Administration Calcium Acetate 1,334 mg 12/30/17 17:30 12/31/17 16:54 Phoslo - PO 1,334 mg TIDCM [facility] Administration Cholecalciferol 2,000 unit 12/31/17 10:00 12/31/17 10:45 Vitamin D3 - PO 2,000 unit DAILY [facility] Administration Collagenase 1 applic 12/31/17 10:00 12/31/17 12:00 Santyl - TP 1 applic DAILY [facility] Administration Protocol Heparin Sodium (Porcine) 5,000 unit 12/30/17 22:00 01/01/18 06:24 Heparin - SQ 5,000 unit TID [facility] Administration Sodium Chloride 1,000 mls @ 200 mls/hr 12/30/17 10:00 12/31/17 11:00 Normal Saline - IV Not Given ASDIR [facility] Insulin Aspart 1 vial 12/30/17 16:30 01/01/18 06:24 Novolog Vial Sliding Scale - SQ Not Given ACHS [facility] Protocol Lactobacillus Acidophilus 1 tab 12/31/17 10:00 12/31/17 10:43 Bacid - PO 1 tab DAILY [facility] Administration Levofloxacin 250 mg 12/31/17 10:00 12/31/17 10:44 Levaquin - PO 250 mg Q2D@1000 [facility] Administration Metoprolol Tartrate 50 mg 12/30/17 22:00 12/31/17 21:27 Lopressor - PO 50 mg BID [facility] Administration Non-Formulary Medication 1 gm 01/02/18 15:00 Vancomycin 1 Gm Premix - IV TUTHSA [facility] Pregabalin 100 mg 12/31/17 10:00 12/31/17 10:44 Lyrica - PO 100 mg DAILY [facility] Administration Ranitidine HCl 150 mg 12/31/17 10:00 12/31/17 10:42 Zantac Oral Solution - PO 150 mg DAILY [facility] Administration Torsemide 80 mg 01/01/18 10:00 Demadex - PO MoWeFr@1000 [facility] ASSESSMENT/PLAN: 57 yr old man with ESRD on HD, HTN, COPD, hx of CVA, NIDDMII found to have recurrent SVT. #SVT - Likely was in setting of dialysis/fluid shift and hypovolemia. -In ER, noted to be in SVT which broke to sinus rhythm with adenosine. - continuous telemetry monitoring - Cardiology Dr Carreno on board--> Continue metoprolol 50mg q12 #RLE Cellulitis - complete course of vancomycin and levoquin - final dose of vanc on Monday with HD, Finished Levofloxacin - monitor for diarrhea, pt on bacid - wound care with brent, consult #ESRD on HD - HD TTS - vitamin D3 po, phoslo TID - Dr. Win on board #NIDDM II - Insulin sliding scale #HTN - metoprolol 50mg po bid - continue torsemide 80mg daily on nondialysis days #Hx of CVA - continue 81mg ASA daily, atrovastatin 80mg hs #COPD - albuterol inh #GERD - omeprazole 20mg po daily FEN NS@200cc/hr Monitor electrolytes Sodium Controlled Diet Visit type - Emergency Visit Emergency Visit: Yes ED Registration Date: 12/30/17 Care time: The patient presented to the Emergency Department on the above date and was hospitalized for further evaluation of their emergent condition. - New Patient This patient is new to me today: Yes Date on this admission: 01/01/18 - Critical Care Critical Care patient: No - Discharge Referral Referred to [facility] No
[2018-01-01] MEDS ORDERED: TORSEMIDE 20 MG TABLET (FP) PO SCH (10:00)
[2018-01-01] MEDS: RANITIDINE HCL 150 MG/10 ML UNIT-DOSE PO SCH (10:45)
[2018-01-01] MEDS: LACTOBACILLUS ACIDOPHILUS 1 TABLET PO SCH (10:46)
[2018-01-01] MEDS: ASPIRIN 81 MG CHEWABLE TABLETS PO SCH (10:46)
[2018-01-01] MEDS: CHOLECALCIFEROL (VITAMIN D3) 1,000 UNIT TABLET (FP) PO SCH (10:46)
[2018-01-01] MEDS: METOPROLOL TARTRATE 50 MG TABLET (FP) PO SCH (10:46)
[2018-01-01] MEDS: PREGABALIN 50 MG CAPSULE PO SCH (10:46)
--- NOTE | 2018-01-01 10:56 | DS ---
Physical Exam: SUBJECTIVE: Patient seen and examined at beside. No acute events overnight. Denies chest pain, sob, fever, or chills. OBJECTIVE: Vital Signs Period Temp Pulse Resp BP Sys/Leon Pulse Ox Last 24 Hr 98.2 F-98.8 F 58-68 18-20 99-128/55-73 96-98 PHYSICAL EXAM GENERAL: AAOx3, NAD HEAD: NC/AT ENT: MMM NECK: Trachea midline, full range of motion, supple. LUNGS: CTA B/L HEART: RRR ABDOMEN: Soft ND No HSM, BS+ EXTREMITIES: 2+ pulses, warm, well-perfused, no edema. NEUROLOGICAL: CN 2-12 intact PSYCH: Normal mood, normal affect. SKIN: Severe Venous Stasis b/l Lower extremities LABS Laboratory Results - last 24 hr 12/31/17 12/31/17 12/31/17 10:54 16:56 21:26 POC Glucometer 232 133 161 01/01/18 05:42 POC Glucometer 109 HOSPITAL COURSE: Date of Admission:12/30/17 Pt was admitted to [facility] on 12/30. Pt admitted for hypotension and SVT 2/2 HD treatment. While in the emergency department, pt was found to be in irregular heart rate-- SVT (Supraventricular Tachycardia). Medications were given in the ED which ultimately broke the irregular rhythm- broke with adenosine. SVT recurred and broke again with adenosine. This irregular heart beat was most likely the result of pt's dialysis treatment and losing too much fluid. Cardiology consulted and prescribed metoprolol 50 BID. Furthermore, pt was also finishing his ABx course for his RLE cellulitis which was diagnosed last admission 12/14/17 -completed levaquin here. Last dose of Vanco scheduled for Tuesday 01/02. Date of Discharge: 01/01/18 Minutes to complete discharge: 35 Discharge Summary Reason For Visit: ESRD,SUPRAVENTRICULAR TACHYCARDIA Current Active Problems SVT (supraventricular tachycardia) (Acute) ESRD (end stage renal disease) (Chronic) Condition: Improved - Instructions Diet, Activity, Other Instructions: You were admitted to [facility] on 12/30. You were admitted for low blood pressure and an irregular heart beat. While in the emergency department, you were found to be in an irregular heart beat referred to as SVT (Supraventricular Tachycardia). Medications were given to you in the ED which ultimately broke the irregular rhythm. This irregular heart beat was most likely the result of your dialysis treatment and losing too much fluid. Cardiology saw you in the hospital and started you on a heart medication called metoprolol. You are to take this medication at a dose of 50 mg twice per day. PLease stop taking coreg (carvediol). You have completed Levaquin while hospitalized. You can discard any remaining medication you have at home. Follow up at your regular scheduled dialysis on monday. Please follow up BECK with Dr Naylor, Claim Adjuster. [phone] Please follow up BECK with your PCP Dr Davis Referrals: Adrian Naylor MD [Staff Physician] - Hai Davis [Primary Care Provider] - Disposition: HOME - Home Medications Comprehensive Discharge Medication List: Ambulatory Orders Omeprazole [Prilosec (RX)] 20 mg PO DAILY 08/13/14 Atorvastatin Ca [Lipitor] 80 mg PO HS 05/24/16 Albuterol Sulfate [Proair Respiclick] 90 mcg IH DAILY 11/13/16 Cholecalciferol (Vitamin D3) [Vitamin D3] 2,000 unit PO DAILY 11/13/16 Aspirin [ASA -] 81 mg PO DAILY #30 tab.chew 11/15/16 Pregabalin [Lyrica -] 100 mg PO DAILY [facility] 50 mg 04/19/17 Calcium Acetate [Phoslo -] 1,334 mg PO TIDCM capsule 04/27/17 Polyethylene Glycol 3350 [Miralax 119 gm Btl -] 17 gm PO DAILY bottle 04/27/17 Carvedilol [Coreg -] 6.25 mg PO BID tablet 07/10/17 Torsemide [Demadex -] 80 mg PO MOWEFR tablet 07/10/17 Docusate Sodium [Colace -] 300 mg PO HS PRN 08/08/17 Sitagliptin Phosphate [Januvia -] 25 mg PO DAILY@0700 #30 tab 08/15/17 L. Acidophilus/L.bulgaricus [Lactobacillus Tablet] 1 each PO DAILY #30 tablet Vancomycin 1 gm Premix - 1 gm IV TUTHSA #3 bag 12/25/17 levoFLOXacin [Levaquin -] 250 mg PO Q48H #3 tablet 12/25/17 This patient is new to me today: Yes Date on this admission: 01/01/18 Emergency Visit: Yes ED Registration Date: 12/30/17 Care time: The patient presented to the Emergency Department on the above date and was hospitalized for further evaluation of their emergent condition. Critical Care patient: No - Discharge Referral Referred to [facility] Med P.C.: No
--- NOTE | 2018-01-01 11:55 | PN ---
Teaching Attending Note Name of Resident: Santo Jonas ATTENDING PHYSICIAN STATEMENT I saw and evaluated the patient. I reviewed the resident's note and discussed the case with the resident. I agree with the resident's findings and plan as documented. SUBJECTIVE:asymptomatic. denies CP, SOB, fever, chills, N/V/C/D OBJECTIVE: Last Vital Signs Temp Pulse Resp BP Pulse Ox 98.4 F 64 18 128/73 96 01/01/18 06:00 01/01/18 08:28 01/01/18 08:28 01/01/18 08:28 01/01/18 08:28 General NAD Assessment and plan 57 yo M with pMHx anemia, asthma, COPD, DM, HTN, ESRD (HD TTS), PVD, and CVA, and recurring cellulitis presented to the ER from HD due to hypotension and found to be in SVT 1. SVT-possible induced from hypotension. s/p adenosine x3. and currently in NSR. was hydrated on presentation no signs of infection, TSH normal. no events on monitor. will d/c on metoprolol. cardio on board. echo from earlier this year noted 2. RLE cellulitis-completed levaquin here. last dose of Vanco scheduled for Tuesday 01/02. f/u with podiatry in office 3. ESRD on HD-cont regular schedule TTS 4. COPD 5. PVD 6. CVA 7. morbid obesity- BMI 27 8. DVT ppx- hep sq 9. d/c home
--- NOTE | 2018-01-01 13:22 | PN ---
Progress Note, Physician Chief Complaint: No complaints No svt on tele History of Present Illness: 57 year old male with a pmhx of htn, anemia, asthma/copd, dm, esrd on HD, pvd, and CVAx2, BIBEMS for tachycardia at dialysis. Patient without complaints. Was in dialysis with 30minutes left when noted to be tachycardic. In ER, noted to be in SVT which broke to sinus rhythm with adenosine. Than recurred and broke again with adenosine. Patient is without chest pain or sob. No pnd or orthopnea. Lying flat very comfortable. - Current Medication List Current Medications: Active Medications Albuterol Sulfate (Ventolin Hfa Inhaler -) 1 puff IH Q8H PRN PRN Reason: SHORTNESS OF BREATH Aspirin (Asa -) 81 mg PO DAILY [facility] Last Admin: 01/01/18 10:46 Dose: 81 mg Atorvastatin Calcium (Lipitor -) 80 mg PO HS [facility] Last Admin: 12/31/17 21:27 Dose: 80 mg Calcium Acetate (Phoslo -) 1,334 mg PO TIDCM [facility] Last Admin: 01/01/18 08:00 Dose: 1,334 mg Cholecalciferol (Vitamin D3 -) 2,000 unit PO DAILY [facility] Last Admin: 01/01/18 10:46 Dose: 2,000 unit Collagenase (Santyl -) 1 applic TP DAILY [facility]; Protocol Last Admin: 12/31/17 12:00 Dose: 1 applic Heparin Sodium (Porcine) (Heparin -) 5,000 unit SQ TID [facility] Last Admin: 01/01/18 06:24 Dose: 5,000 unit Sodium Chloride (Normal Saline -) 1,000 mls @ 200 mls/hr IV ASDIR [facility] Last Admin: 12/31/17 11:00 Dose: Not Given Insulin Aspart (Novolog Vial Sliding Scale -) 1 vial SQ ACHS [facility]; Protocol Last Admin: 01/01/18 06:24 Dose: Not Given Lactobacillus Acidophilus (Bacid -) 1 tab PO DAILY [facility] Last Admin: 01/01/18 10:46 Dose: 1 tab Levofloxacin (Levaquin -) 250 mg PO Q2D@1000 [facility] Last Admin: 12/31/17 10:44 Dose: 250 mg Metoprolol Tartrate (Lopressor -) 50 mg PO BID [facility] Last Admin: 01/01/18 10:46 Dose: 50 mg Non-Formulary Medication (Vancomycin 1 Gm Premix -) 1 gm IV [facility] Pregabalin (Lyrica -) 100 mg PO DAILY [facility] Last Admin: 01/01/18 10:46 Dose: 100 mg Ranitidine HCl (Zantac Oral Solution -) 150 mg PO DAILY [facility] Last Admin: 01/01/18 10:45 Dose: 150 mg Torsemide (Demadex -) 80 mg PO MoWeFr@1000 [facility] Last Admin: 01/01/18 10:46 Dose: 80 mg - Objective Vital Signs: Vital Signs Temperature 98.4 F 01/01/18 06:00 Pulse Rate 64 01/01/18 08:28 Respiratory Rate 18 01/01/18 08:28 Blood Pressure 128/73 01/01/18 08:28 O2 Sat by Pulse Oximetry (%) 96 01/01/18 08:28 Constitutional: Yes: No Distress Neck: Yes: Supple Cardiovascular: Yes: Regular Rate and Rhythm, S1, S2. No: JVD Respiratory: Yes: CTA Bilaterally Gastrointestinal: Yes: Soft Edema: LLE: 1+, RLE: 1+ Labs: CBC, BMP 12/30/17 10:50 12/30/17 11:48 INR, PTT INR 1.13 (0.83-1.09) H 12/30/17 10:40 Problem List - Problems (1) SVT (supraventricular tachycardia) Code(s): I47.1 - SUPRAVENTRICULAR TACHYCARDIA Assessment/Plan 57 year old male with a pmhx of htn, anemia, asthma/copd, dm, esrd on HD, pvd, and CVAx2, BIBEMS for tachycardia at dialysis. Patient without complaints. Was in dialysis with 30minutes left when noted to be tachycardic. In ER, noted to be in SVT which broke to sinus rhythm with adenosine. Than recurred and broke again with adenosine. Patient is without chest pain or sob. No pnd or orthopnea. Lying flat very comfortable. 1) SVT -Likely was in setting of dialysis/fluid shift and hypovolemia. Continue metoprolol 50mg q12 S/p IVF bolus on admission. Avoid hypovolemia in dialysis No further events since on tele. Outpt follow [facility] Dr. Naylor [phone] Plan is for discharge
[2018-01-02] MEDS ORDERED: PATIENT'S OWN MEDICATION (NON-FORMULARY) (Vancomycin 1 Gm Premix - 1 GM) IV SCH (15:00)
== END 2018-01-01 14:40 | disposition home or self-care (01) | DRG 308 ==
LOC: JER 10:33 → JERBED 13:22 → OBSVTOIN 14:55 → J4W 20:13
PROVIDERS: ADMIT Internal Medicine; ATTEND Internal Medicine
DX: I47.1 Supraventricular tachycardia (principal); N18.6 End stage renal disease; I69.354 Hemiplegia and hemiparesis following cerebral infarction affecting left non-dominant side; L03.115 Cellulitis of right lower limb; I12.0 Hypertensive chronic kidney disease with stage 5 chronic kidney disease or end stage renal disease; I13.10 Hypertensive heart and chronic kidney disease without heart failure, with stage 1 through stage 4 chronic kidney disease, or unspecified chronic kidney disease; E11.9 Type 2 diabetes mellitus without complications; J44.9 Chronic obstructive pulmonary disease, unspecified; K21.9 Gastro-esophageal reflux disease without esophagitis; R00.0 Tachycardia, unspecified; I95.9 Hypotension, unspecified
CPT/HCPCS: 36415; 71045-TC-FY; 80053; 82962; 83735; 84443; 84484; 85025; 85610; 93005; 93010; 99285-25; G0378; J1644; J7030

== ENCOUNTER 2018-04-21 13:40 | Inpatient (IN) | payer OTHER ==
--- NOTE | 2018-04-21 15:23 | PDOC ---
History of Present Illness - General Chief Complaint: Revisit, Lab Variance Stated Complaint: SENT BY PCP Time Seen by Provider: 04/21/18 14:53 History Source: Patient Exam Limitations: No Limitations Past History - Past Medical History Allergies/Adverse Reactions: Allergies Allergy/AdvReac Type Severity Reaction Status Date / Time fish derived Allergy Severe Hives Verified 04/21/18 13:45 Shellfish Allergy Severe Verified 04/21/18 13:45 sulfamethoxazole Allergy Severe Swelling Verified 04/21/18 13:45 [From Bactrim DS] trimethoprim Allergy Severe Swelling Verified 04/21/18 13:45 [From Bactrim DS] Home Medications: Ambulatory Orders Omeprazole [Prilosec (RX)] 20 mg PO DAILY 08/13/14 Atorvastatin Ca [Lipitor] 80 mg PO HS 05/24/16 Albuterol Sulfate [Proair Respiclick] 90 mcg IH DAILY 11/13/16 Cholecalciferol (Vitamin D3) [Vitamin D3] 2,000 unit PO DAILY 11/13/16 Aspirin [ASA -] 81 mg PO DAILY #30 tab.chew 11/15/16 Pregabalin [Lyrica -] 100 mg PO DAILY [facility] 50 mg 04/19/17 Calcium Acetate [Phoslo -] 1,334 mg PO TIDCM capsule 04/27/17 Polyethylene Glycol 3350 [Miralax 119 gm Btl -] 17 gm PO DAILY bottle 04/27/17 Torsemide [Demadex -] 80 mg PO MOWEFR tablet 07/10/17 Docusate Sodium [Colace -] 300 mg PO HS PRN 08/08/17 Sitagliptin Phosphate [Januvia -] 25 mg PO DAILY@0700 #30 tab 08/15/17 L. Acidophilus/L.bulgaricus [Lactobacillus Tablet] 1 each PO DAILY #30 tablet Metoprolol Tartrate [Lopressor -] 50 mg PO BID #30 tablet 01/01/18 Clopidogrel Bisulfate [Plavix] 1 tab PO DAILY 04/03/18 Anemia: Yes Asthma: Yes Cancer: No Cardiac Disorders: Yes (ANG[place]) CVA: Yes (X 2) COPD: Yes CHF: Yes Dementia: No Diabetes: Yes Dialysis: Yes (T-Thurs-Sat) GI Disorders: No Disorders: No HTN: Yes Hypercholesterolemia: Yes Liver Disease: No Seizures: No Thyroid Disease: No - Surgical History Abdominal Surgery: Yes (gastric bypass 05/05/14) Appendectomy: No Cardiac Surgery: No Cholecystectomy: No Lung Surgery: No Neurologic Surgery: No Orthopedic Surgery: Yes - Immunization History Immunization Up to Date: Yes - Suicide/Smoking/Psychosocial Hx Smoking Status: No Smoking History: Never smoked Have you smoked in the past 12 months: No Number of Cigarettes Smoked Daily: 0 Cigars Per Day: 0 Hx Alcohol Use: No Drug/Substance Use Hx: No Substance Use Type: None Hx Substance Use Treatment: No *Physical Exam - Vital Signs Last Vital Signs Temp Pulse Resp BP Pulse Ox 97.5 F L 59 L 18 123/66 97 04/21/18 13:42 04/21/18 13:42 04/21/18 13:42 04/21/18 13:42 04/21/18 13:42 - Physical Exam General Appearance: No: Apparent Distress Respiratory/Chest: positive: Lungs Clear, Normal Breath Sounds. negative: Respiratory Distress Cardiovascular: positive: Regular Rhythm, Regular Rate, S1, S2. negative: Murmur Gastrointestinal/Abdominal: positive: Normal Bowel Sounds, Soft. negative: Tender, Distended, Guarding, Rebound Extremity: positive: Other (+RLE erythema (chronic per patient), R 2nd toe with no pustular discharge, no crepitus; 1+ DP pulse R foot) Neurologic: positive: Alert, Normal Mood/Affect Moderate Sedation - Procedure Monitoring Vital Signs: Procedure Monitoring Vital Signs Temperature 97.5 F L 04/21/18 13:42 Pulse Rate 59 L 04/21/18 13:42 Respiratory Rate 18 04/21/18 13:42 Blood Pressure 123/66 04/21/18 13:42 O2 Sat by Pulse Oximetry (%) 97 04/21/18 13:42 ED Treatment Course - LABORATORY CBC & Chemistry Diagram: 04/21/18 16:21 04/21/18 16:21 Medical Decision Making - Medical Decision Making 57 y/o M hx of chronic RLE cellulitis, ESRD (//), HTN, COPD, CVA 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 Mentions around 2 weeks, his boiler coverer, Dr. 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 Patient spoke to his assistant merchandise manager, Dr. Win, who spoke to Dr. Chan, and patient was started on Vancomycin 2 days ago. Patient has thus far received 2 doses of IV Vancomycin (received second dose today). Denies fever, sob, cp, abd pain, n/v Bacteremia Discussed with assistant merchandise manager, Dr. Win - who states he would like patient admitted; states he spoke to his boiler coverer, Dr. Chan, who will come evaluate patient either tomorrow or on 04/23 (patient is receiving 1 gram of IV Vancomycin) Plan: Labs, repeat blood cultures, admit 04/21/18 15:22 Labs unremarkable Repeat blood cultures sent Patient admitted 04/21/18 17:50 *DC/Admit/Observation/Transfer Diagnosis at time of Disposition: Bacteremia - Discharge Dispostion Condition at time of disposition: Stable Decision to Admit order: Yes - Referrals Referrals: Hai Davis [Primary Care Provider] - - Patient Instructions - Post Discharge Activity
[2018-04-21 16:35] LABS: BASO % 1.4 % (0-2.0); EOS % 7.2 % (0-4.5); HEMATOCRIT 39.1 % (35.4-49); HEMOGLOBIN 13.4 GM/dL (11.7-16.9); LYMPH % 17.7 % (8-40); MCH 31.8 pg (25.7-33.7); MCHC 34.2 g/dl (32.0-35.9); MEAN PLT VOLUME 9.3 fl (7.5-11.1); NEUT % 65.7 % (42.8-82.8); PLATELET COUNT 168 K/MM3 (134-434); RDW 16.6 % (11.9-15.9); WHITE BLOOD COUNT 5.5 K/mm3 (4.0-10.0)
--- NOTE | 2018-04-21 16:57 | CONSULT ---
Consult Consult Specialty:: Nephrology Reason for Consultation:: ESRD - History of Present Illness Chief Complaint: positive blood cultures History of Present Illness: Pt is a 57 year old male with pmhx of ESRD, anemia, htn, obesity and pvd who was sent to the hospital for positive blood cultures in dialysis. I was asked to start him on Vanco by podiatry. Vanco was started and a set of cultures drawn. Prelim report was positive. He refused to go to the hospital yesterday. He did go to HD this morning and he did get vanco. He presents to the ER. He denies fevers or chills. 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 Cardio/Vascular: Yes: HTN, Hyperlipdemia Pulmonary: Yes: Sleep Apnea Gastrointestinal: Yes: GERD, Other (obesity) Renal/: Yes: Renal Failure, Renal Inusuff, Hemodialysis, Other Endocrine: Yes: Diabetes Mellitus - Past Surgical History Past Surgical History: Yes: AV Fistula/Graft - Alcohol/Substance Use Hx Alcohol Use: No - Smoking History Smoking history: Never smoked Have you smoked in the past 12 months: No Aproximately how many cigarettes per day: 0 - Social History Usual Living Arrangement: Senior Care ADL: Independent History of Recent Travel: No Home Medications - Allergies Allergies/Adverse Reactions: Allergies Allergy/AdvReac Type Severity Reaction Status Date / Time fish derived Allergy Severe Hives Verified 04/21/18 13:45 Shellfish Allergy Severe Verified 04/21/18 13:45 sulfamethoxazole Allergy Severe Swelling Verified 04/21/18 13:45 [From Bactrim DS] trimethoprim Allergy Severe Swelling Verified 04/21/18 13:45 [From Bactrim DS] - Home Medications Home Medications: Ambulatory Orders Omeprazole [Prilosec (RX)] 20 mg PO DAILY 08/13/14 Atorvastatin Ca [Lipitor] 80 mg PO HS 05/24/16 Albuterol Sulfate [Proair Respiclick] 90 mcg IH DAILY 11/13/16 Cholecalciferol (Vitamin D3) [Vitamin D3] 2,000 unit PO DAILY 11/13/16 Aspirin [ASA -] 81 mg PO DAILY #30 tab.chew 11/15/16 Pregabalin [Lyrica -] 100 mg PO DAILY MDD 50 mg 04/19/17 Calcium Acetate [Phoslo -] 1,334 mg PO TIDCM capsule 04/27/17 Polyethylene Glycol 3350 [Miralax 119 gm Btl -] 17 gm PO DAILY bottle 04/27/17 Torsemide [Demadex -] 80 mg PO MOWEFR tablet 07/10/17 Docusate Sodium [Colace -] 300 mg PO HS PRN 08/08/17 Sitagliptin Phosphate [Januvia -] 25 mg PO DAILY@0700 #30 tab 08/15/17 L. Acidophilus/L.bulgaricus [Lactobacillus Tablet] 1 each PO DAILY #30 tablet Metoprolol Tartrate [Lopressor -] 50 mg PO BID #30 tablet 01/01/18 Clopidogrel Bisulfate [Plavix] 1 tab PO DAILY 04/03/18 Family Disease History - Family Disease History Family Disease History: Heart Disease: Father ( of SANON at 43 ), CA: Mother ( Breast) Review of Systems - Review of Systems Constitutional: denies: Chills, Fever HENT: reports: No Symptoms Neck: reports: No Symptoms Cardiovascular: reports: No Symptoms Respiratory: reports: No Symptoms Gastrointestinal: reports: No Symptoms Genitourinary: reports: No Symptoms Musculoskeletal: reports: No Symptoms Integumentary: reports: No Symptoms Neurological: reports: No Symptoms Endocrine: reports: No Symptoms Hematology/Lymphatic: reports: No Symptoms Physical Exam Vital Signs: Vital Signs Temperature 97.5 F L 04/21/18 13:42 Pulse Rate 59 L 04/21/18 13:42 Respiratory Rate 18 04/21/18 13:42 Blood Pressure 123/66 04/21/18 13:42 O2 Sat by Pulse Oximetry (%) 97 04/21/18 13:42 Constitutional: Yes: Calm Eyes: Yes: Conjunctiva Clear HENT: Yes: Atraumatic Neck: Yes: Supple Cardiovascular: Yes: S1, S2 Respiratory: Yes: CTA Bilaterally Gastrointestinal: Yes: Soft, Abdomen, Obese Renal/: Yes: WNL Edema: Yes Edema: LLE: 2+, RLE: 2+ Integumentary: Yes: Venous Stasis Changes Neurological: Yes: Oriented Psychiatric: Yes: Oriented Problem List - Problems (1) Cellulitis Code(s): L03.90 - CELLULITIS, UNSPECIFIED (2) Diabetes mellitus Code(s): E11.9 - TYPE 2 DIABETES MELLITUS WITHOUT COMPLICATIONS (3) ESRD (end stage renal disease) Code(s): N18.6 - END STAGE RENAL DISEASE Assessment/Plan Impression 1. ESRD 2. anemia 3. HTN 4. morbid obesity 5. CVA 6. hyperlipidemia 7. proteinuria - nephrotic 8. PVD 9. foot ulcer 10. bacteremia 11. left hilum density on CXR Plan - pt dialzyed today - monitor vanco levels - ID eval - podiatry eval - cont wound care - will follow
[2018-04-21 17:01] LABS: ANION GAP 8 MMOL/L (8-16); BLOOD UREA NITROGEN 23 mg/dL (7-18); CALCIUM 8.7 mg/dL (8.5-10.1); CHLORIDE 101 mmol/L (98-107); CO2 26 mmol/L (21-32); GLUCOSE,RANDOM 183 mg/dL (74-106); SODIUM 135 mmol/L (136-145)
[2018-04-21 17:02] LABS: POTASSIUM 4.3 mmol/L (3.5-5.1)
[2018-04-21] MEDS ORDERED: DOCUSATE SODIUM 100 MG CAPSULE (FP) PO PRN (17:50)
[2018-04-21] MEDS ORDERED: diphenhydrAMINE HCL 25 MG CAPSULE (FP) PO ONE ×2 (17:55→19:11)
[2018-04-21] MEDS ORDERED: ALBUTEROL SO4 8 GM HFA INHALER IH PRN (18:07)
--- NOTE | 2018-04-21 18:13 | HP ---
CHIEF COMPLAINT: blood c/s positive at HD center PCP:Sudhakar HISTORY OF PRESENT ILLNESS: 57 y/o M hx of chronic RLE cellulitis, ESRD (//), HTN, COPD, CVA 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 Patient spoke to his reconditioning associate, Dr. Win, who spoke to Dr. Chan, and patient was started on Vancomycin 2 days ago. Patient has thus far received 2 doses of IV Vancomycin (received second dose today). Denies fever, sob, cp, abd pain, n/v he is also c/o skin rash on his arms and abdomen , started few weeks ago , He denies any new meds use or travel, He went to see dermatology and his pmd and being watched ER course was notable for: (1) positive blood c/s (2)afibrile (3)skin rash Recent Travel:no PAST MEDICAL HISTORY: dm htn, HD on hemodialysis PAST SURGICAL HISTORY: av fistulae for HD Social History: Smoking:none Alcohol:none Drugs: none Family History: Allergies fish derived Allergy (Severe, Verified 04/21/18 13:45) Hives Shellfish Allergy (Severe, Verified 04/21/18 13:45) throat swelling sulfamethoxazole [From Bactrim DS] Allergy (Severe, Verified 04/21/18 13:45) Swelling trimethoprim [From Bactrim DS] Allergy (Severe, Verified 04/21/18 13:45) Swelling HOME MEDICATIONS: Home Medications Medication Instructions Recorded Omeprazole [Prilosec (RX)] 20 mg PO DAILY 08/13/14 Atorvastatin Ca [Lipitor] 80 mg PO HS 05/24/16 Albuterol Sulfate [Proair 90 mcg IH DAILY 11/13/16 Respiclick] Cholecalciferol (Vitamin D3) 2,000 unit PO DAILY 11/13/16 [Vitamin D3] Aspirin [ASA -] 81 mg PO DAILY #30 tab.chew 11/15/16 Pregabalin [Lyrica -] 100 mg PO DAILY MDD 50 mg 04/19/17 Calcium Acetate [Phoslo -] 1,334 mg PO TIDCM capsule 04/27/17 Polyethylene Glycol 3350 [Miralax 17 gm PO DAILY bottle 04/27/17 119 gm Btl -] Torsemide [Demadex -] 80 mg PO MOWEFR tablet 07/10/17 Docusate Sodium [Colace -] 300 mg PO HS PRN 08/08/17 Sitagliptin Phosphate [Januvia -] 25 mg PO DAILY@0700 #30 tab 08/15/17 L. Acidophilus/L.bulgaricus 1 each PO DAILY #30 tablet 12/25/17 [Lactobacillus Tablet] Metoprolol Tartrate [Lopressor -] 50 mg PO BID #30 tablet 01/01/18 Clopidogrel Bisulfate [Plavix] 1 tab PO DAILY 04/03/18 REVIEW OF SYSTEMS CONSTITUTIONAL: Absent: fever, chills, diaphoresis, generalized weakness, malaise, loss of appetite, weight change HEENT: Absent: rhinorrhea, nasal congestion, throat pain, throat swelling, difficulty swallowing, mouth swelling, ear pain, eye pain, visual changes CARDIOVASCULAR: Absent: chest pain, syncope, palpitations, irregular heart rate, lightheadedness , peripheral edema RESPIRATORY: Absent: cough, shortness of breath, dyspnea with exertion, orthopnea, wheezing, stridor, hemoptysis GASTROINTESTINAL: Absent: abdominal pain, abdominal distension, nausea, vomiting, diarrhea, constipation, melena, hematochezia GENITOURINARY: Absent: dysuria, frequency, urgency, hesitancy, hematuria, flank pain, genital pain MUSCULOSKELETAL: Absent: myalgia, arthralgia, joint swelling, back pain, neck pain SKIN: presen : rash, itching, HEMATOLOGIC/IMMUNOLOGIC: Absent: easy bleeding, easy bruising, lymphadenopathy, frequent infections ENDOCRINE: Absent: unexplained weight gain, unexplained weight loss, heat intolerance, cold intolerance NEUROLOGIC: Absent: headache, focal weakness or paresthesias, dizziness, unsteady gait, seizure, mental status changes, bladder or bowel incontinence PSYCHIATRIC: Absent: anxiety, depression, suicidal or homicidal ideation, hallucinations. PHYSICAL EXAMINATION Vital Signs - 24 hr 04/21/18 13:42 Temperature 97.5 F L Pulse Rate 59 L Respiratory 18 Rate Blood Pressure 123/66 O2 Sat by Pulse 97 Oximetry (%) GENERAL: Awake, alert, and fully oriented, in no acute distress. HEAD: Normal with no signs of trauma. EYES: Pupils equal, round and reactive to light, extraocular movements intact, sclera anicteric, conjunctiva clear. No lid lag. EARS, NOSE, THROAT: Ears normal, nares patent, oropharynx clear without exudates. Moist mucous membranes. NECK: Normal range of motion, supple without lymphadenopathy, JVD, or masses. LUNGS: Breath sounds equal, clear to auscultation bilaterally. No wheezes, and no crackles. No accessory muscle use. HEART: Regular rate and rhythm, normal S1 and S2 without murmur, rub or gallop. ABDOMEN: Soft, nontender, not distended, normoactive bowel sounds, no guarding, no rebound, no masses. No hepatomegaly or splenomegaly. MUSCULOSKELETAL: Normal range of motion at all joints. No bony deformities or tenderness. No CVA tenderness. UPPER EXTREMITIES: 2+ pulses, warm, well-perfused. No cyanosis. No clubbing. No peripheral edema. LOWER EXTREMITIES: he has plus 2 edema and has chronic changes in his feet NEUROLOGICAL: Cranial nerves II-XII intact. Normal speech. Normal gait. PSYCHIATRIC: Cooperative. Good eye contact. Appropriate mood and affect. SKIN: has rash on his arms and abd front and looks like hives Laboratory Results - last 24 hr 04/21/18 04/21/18 16:21 16:21 WBC 5.5 RBC 4.20 Hgb 13.4 Hct 39.1 MCV 93.0 MCH 31.8 MCHC 34.2 RDW 16.6 H Plt Count 168 MPV 9.3 Absolute Neuts (auto) 3.6 Neutrophils % 65.7 Lymphocytes % 17.7 Monocytes % 8.0 Eosinophils % 7.2 H Basophils % 1.4 D Nucleated RBC % 0 Sodium 135 L Potassium 4.3 Chloride 101 Carbon Dioxide 26 Anion Gap 8 BUN 23 H Creatinine 5.0 H Creat Clearance w eGFR 12.02 Random Glucose 183 H Calcium 8.7 ASSESSMENT/PLAN: Андрей seen by nephro and pt has already received the vanco after HD today will watch and his wbc count is normal blood c/s are drawn in er Htn stable he will continue metoprolol High cholesterol atorvastatin to continue Diabetes with nephropathy He is controlled on 25 mg of januvia Neuropathy lyrica Skin rash etiology undetermined , will add benadryl prn Coronary artery disease He is pain free , continue aspirin and plavix nad toprol Gerd continue omeprazole No need for dvt prophylasix bc he is ambulatory Visit type - Emergency Visit Emergency Visit: Yes Care time: The patient presented to the Emergency Department on the above date and was hospitalized for further evaluation of their emergent condition. - New Patient This patient is new to me today: Yes Date on this admission: 04/21/18 - Critical Care Critical Care patient: No
[2018-04-21] MEDS: METOPROLOL TARTRATE 50 MG TABLET (FP) PO SCH (23:31)
[2018-04-21] MEDS: ATORVASTATIN CA 80 MG TABLET (FP) PO SCH (23:31)
[2018-04-22] MEDS: sitaGLIPtin PHOSPHATE 25 MG TABLET (FP) PO SCH (06:12)
[2018-04-22] MEDS: CLOPIDOGREL BISULFATE 75 MG TABLET (FP) PO SCH (09:38)
[2018-04-22] MEDS: METOPROLOL TARTRATE 50 MG TABLET (FP) PO SCH ×2 (09:38→22:19)
[2018-04-22] MEDS: CHOLECALCIFEROL (VITAMIN D3) 1,000 UNIT TABLET (FP) PO SCH (09:38)
[2018-04-22] MEDS: LACTOBACILLUS ACIDOPHILUS 1 TABLET PO SCH (09:38)
[2018-04-22] MEDS: CALCIUM ACETATE 667 MG CAPSULE (FP) PO SCH ×3 (09:39→18:24)
[2018-04-22] MEDS: PREGABALIN 100 MG CAPSULE PO SCH (09:39)
[2018-04-22] MEDS: PANTOPRAZOLE 20 MG TABLET (FP) PO SCH (09:39)
[2018-04-22] MEDS: ASPIRIN 81 MG CHEWABLE TABLETS PO SCH (09:39)
[2018-04-22] MEDS: POLYETHYLENE GLYCOL 3350 119 GM BTL PO SCH (09:52)
[2018-04-22] MEDS ORDERED: PATIENT'S OWN MEDICATION (NON-FORMULARY) (Omeprazole Pediatric Solution 20 MG) PO SCH (10:00)
[2018-04-22] MEDS ORDERED: PATIENT'S OWN MEDICATION (NON-FORMULARY) (Albuterol Sulfate [Proair Respiclick] 90 MCG) IH SCH (10:00)
[2018-04-22] MEDS ORDERED: [UNRECOGNIZED DRUG - OTHER] PO SCH (10:00)
--- NOTE | 2018-04-22 10:57 | PN ---
Physical Exam: SUBJECTIVE: Patient seen and examined His rash is better and less itchy on benadryl, he has no fever and he is ambulatory OBJECTIVE: Vital Signs Period Temp Pulse Resp BP Sys/Leon Pulse Ox Last 24 Hr 97.5 F-98.5 F 59-97 18-20 104-135/58-96 97-98 GENERAL: The patient is awake, alert, and fully oriented, in no acute distress. HEAD: Normal with no signs of trauma. EYES: PERRL, extraocular movements intact, sclera anicteric, conjunctiva clear. No ptosis. ENT: Ears normal, nares patent, oropharynx clear without exudates, moist mucous membranes. NECK: Trachea midline, full range of motion, supple. LUNGS: Breath sounds equal, clear to auscultation bilaterally, no wheezes, no crackles, no accessory muscle use. HEART: Regular rate and rhythm, S1, S2 without murmur, rub or gallop. ABDOMEN: Soft, nontender, nondistended, normoactive bowel sounds, no guarding, no rebound, no hepatosplenomegaly, no masses. EXTREMITIES: 2+ pulses, warm, well-perfused, no edema. NEUROLOGICAL: Cranial nerves II through XII grossly intact. Normal speech, gait not observed. PSYCH: Normal mood, normal affect. SKIN: improving rash Laboratory Results - last 24 hr 04/21/18 04/21/18 04/22/18 16:21 16:21 05:38 WBC 5.5 RBC 4.20 Hgb 13.4 Hct 39.1 MCV 93.0 MCH 31.8 MCHC 34.2 RDW 16.6 H Plt Count 168 MPV 9.3 Absolute Neuts (auto) 3.6 Neutrophils % 65.7 Lymphocytes % 17.7 Monocytes % 8.0 Eosinophils % 7.2 H Basophils % 1.4 D Nucleated RBC % 0 Sodium 135 L Potassium 4.3 Chloride 101 Carbon Dioxide 26 Anion Gap 8 BUN 23 H Creatinine 5.0 H Creat Clearance w eGFR 12.02 POC Glucometer 205 Random Glucose 183 H Calcium 8.7 Active Medications Generic Name Dose Route Start Last Admin Trade Name Freq PRN Reason Stop Dose Admin Albuterol Sulfate 1 puff 04/21/18 18:07 Ventolin Hfa Inhaler - IH Q8H PRN SHORTNESS OF BREATH Aspirin 81 mg 04/22/18 10:00 04/22/18 09:39 Asa - PO 81 mg DAILY [facility] Administration Atorvastatin Calcium 80 mg 04/21/18 22:00 04/21/18 23:31 Lipitor - PO 80 mg HS [facility] Administration Calcium Acetate 1,334 mg 04/22/18 08:00 04/22/18 09:39 Phoslo - PO 1,334 mg TIDCM [facility] Administration Cholecalciferol 2,000 unit 04/22/18 10:00 04/22/18 09:38 Vitamin D3 - PO 2,000 unit DAILY [facility] Administration Clopidogrel Bisulfate 75 mg 04/22/18 10:00 04/22/18 09:38 Plavix - PO 75 mg DAILY [facility] Administration Docusate Sodium 300 mg 04/21/18 17:50 Colace - PO HS PRN CONSTIPATION Lactobacillus Acidophilus 1 tab 04/22/18 10:00 04/22/18 09:38 Bacid - PO 1 tab DAILY [facility] Administration Metoprolol Tartrate 50 mg 04/21/18 22:00 04/22/18 09:38 Lopressor - PO 50 mg BID [facility] Administration Pantoprazole Sodium 20 mg 04/22/18 10:00 04/22/18 09:39 Protonix - PO 20 mg DAILY [facility] Administration Polyethylene Glycol 17 gm 04/22/18 10:00 04/22/18 09:52 Miralax (For Daily Use) - PO 17 grams DAILY [facility] Administration Pregabalin 100 mg 04/22/18 10:00 04/22/18 09:39 Lyrica - PO 100 mg DAILY [facility] Administration Sitagliptin Phosphate 25 mg 04/22/18 07:00 04/22/18 06:12 Januvia - PO 25 mg DAILY@0700 L[facility] Administration ASSESSMENT/PLAN: Ronaremcarloz seen by nephro and pt has already received the vanco after HD today will watch and his wbc count is normal blood c/s are drawn in er Htn stable he will continue metoprolol High cholesterol atorvastatin to continue Diabetes with nephropathy He is controlled on 25 mg of januvia sugar is good Neuropathy lyrica continue Skin rash etiology undetermined , nj working Coronary artery disease He is pain free , continue aspirin and plavix nad toprol Gerd continue omeprazole No need for dvt prophylasix bc he is ambulatory Visit type - Emergency Visit Emergency Visit: Yes ED Registration Date: 04/21/18 Care time: The patient presented to the Emergency Department on the above date and was hospitalized for further evaluation of their emergent condition. - New Patient This patient is new to me today: No - Critical Care Critical Care patient: No - Discharge Referral Referred to [facility] No
--- NOTE | 2018-04-22 14:26 | CONSULT ---
Consult - text type - Consultation Consultation Note: Podiatry Consultation: 57 year old diabetic, PVD M well known to me from wound healing sent in for admission from dialysis with positive blood cultures. Patient states he denies F/V/N/C/SOB/CP, feels like himself. Patient seen regularly in wound healing center, complicated wound history. S/p L TMA over 1 year ago. Developed diabetic ulcer on right second toe with exposed bone. I had recommended toe amputation at that point, which the patient adamantly refused. S/p RLE revascularization with Dr. Sheets recently. S/p R 2nd toe excision of bone and amniotic graft placement in wound healing center. Currently afebrile VSS. I discussed the case with Dr. Win yesterday who recommended my evaluation. PMHx: DM, HTN, PVD, CAD, ESRD on HD, COPD, CVA x 2 Meds: noted ALL: bactrim, shellfish KEEGAN: L foot: healed TMA R foot: pedal pulses nonpalpable, TG wnl. On the second toe is a diabetic ulcer with mostly granular base, minimal fibrotic slough, no purulent drainage, no fluctuance, no streaking cellulitis, no soft tissue crepitus, no signs of acute infection. No tenderness to palpation. No ischemic changes. Blood Cx: pending WBC: 5.5 Imp: 57 year old diabetic male with right second toe diabetic ulcer, bacteremia 1. IV abx 2. Local wound care 3. New wound culture obtained from second toe 4. Monitor blood cultures 5. The toe looks clinically stable. Recommend xray right foot. Patient understands that if condition worsens from here he may need toe amputation going forward. For now no surgical intervention. Will follow. Amarilis Alcantara DPM
[2018-04-22] MEDS ORDERED: SODIUM CHLORIDE 250 ML IV PRN (15:36)
--- NOTE | 2018-04-22 15:36 | PN ---
Progress Note, Physician History of Present Illness: Pt seen and examined at bedside. He is awake and alert. He has no complaints. - Current Medication List Current Medications: Active Medications Albuterol Sulfate (Ventolin Hfa Inhaler -) 1 puff IH Q8H PRN PRN Reason: SHORTNESS OF BREATH Aspirin (Asa -) 81 mg PO DAILY COUNTS INCLUDE 234 BEDS AT THE [facility] Last Admin: 04/22/18 09:39 Dose: 81 mg Atorvastatin Calcium (Lipitor -) 80 mg PO HS COUNTS INCLUDE 234 BEDS AT THE [facility] Last Admin: 04/21/18 23:31 Dose: 80 mg Calcium Acetate (Phoslo -) 1,334 mg PO TIDCM COUNTS INCLUDE 234 BEDS AT THE [facility] Last Admin: 04/22/18 13:21 Dose: 1,334 mg Cholecalciferol (Vitamin D3 -) 2,000 unit PO DAILY COUNTS INCLUDE 234 BEDS AT THE [facility] Last Admin: 04/22/18 09:38 Dose: 2,000 unit Clopidogrel Bisulfate (Plavix -) 75 mg PO DAILY COUNTS INCLUDE 234 BEDS AT THE [facility] Last Admin: 04/22/18 09:38 Dose: 75 mg Docusate Sodium (Colace -) 300 mg PO HS PRN PRN Reason: CONSTIPATION Lactobacillus Acidophilus (Bacid -) 1 tab PO DAILY COUNTS INCLUDE 234 BEDS AT THE [facility] Last Admin: 04/22/18 09:38 Dose: 1 tab Metoprolol Tartrate (Lopressor -) 50 mg PO BID COUNTS INCLUDE 234 BEDS AT THE [facility] Last Admin: 04/22/18 09:38 Dose: 50 mg Pantoprazole Sodium (Protonix -) 20 mg PO DAILY COUNTS INCLUDE 234 BEDS AT THE [facility] Last Admin: 04/22/18 09:39 Dose: 20 mg Polyethylene Glycol (Miralax (For Daily Use) -) 17 gm PO DAILY COUNTS INCLUDE 234 BEDS AT THE [facility] Last Admin: 04/22/18 09:52 Dose: 17 grams Pregabalin (Lyrica -) 100 mg PO DAILY COUNTS INCLUDE 234 BEDS AT THE [facility] Last Admin: 04/22/18 09:39 Dose: 100 mg Sitagliptin Phosphate (Januvia -) 25 mg PO DAILY@0700 COUNTS INCLUDE 234 BEDS AT THE [facility] Last Admin: 04/22/18 06:12 Dose: 25 mg - Objective Vital Signs: Vital Signs Temperature 97.9 F 04/22/18 14:15 Pulse Rate 64 04/22/18 14:15 Respiratory Rate 18 04/22/18 14:15 Blood Pressure 112/57 L 04/22/18 14:15 O2 Sat by Pulse Oximetry (%) 98 04/22/18 09:00 Constitutional: Yes: Calm Eyes: Yes: Conjunctiva Clear HENT: Yes: Atraumatic Cardiovascular: Yes: S1, S2 Respiratory: Yes: CTA Bilaterally Gastrointestinal: Yes: Soft, Abdomen, Obese Genitourinary: Yes: WNL Edema: Yes Edema: LLE: 1+, RLE: 1+ Neurological: Yes: Oriented Psychiatric: Yes: Oriented Labs: CBC, BMP 04/21/18 16:21 04/21/18 16:21 Problem List - Problems (1) Cellulitis Code(s): L03.90 - CELLULITIS, UNSPECIFIED (2) Diabetes mellitus Code(s): E11.9 - TYPE 2 DIABETES MELLITUS WITHOUT COMPLICATIONS (3) ESRD (end stage renal disease) Code(s): N18.6 - END STAGE RENAL DISEASE Assessment/Plan Current Medications Generic Name Dose Route Start Last Admin Trade Name Freq PRN Reason Stop Dose Admin Albuterol Sulfate 1 puff 04/21/18 18:07 Ventolin Hfa Inhaler - IH Q8H PRN SHORTNESS OF BREATH Aspirin 81 mg 04/22/18 10:00 04/22/18 09:39 Asa - PO 81 mg DAILY [facility] Administration Atorvastatin Calcium 80 mg 04/21/18 22:00 04/21/18 23:31 Lipitor - PO 80 mg HS [facility] Administration Calcium Acetate 1,334 mg 04/22/18 08:00 04/22/18 13:21 Phoslo - PO 1,334 mg TIDCM [facility] Administration Cholecalciferol 2,000 unit 04/22/18 10:00 04/22/18 09:38 Vitamin D3 - PO 2,000 unit DAILY [facility] Administration Clopidogrel Bisulfate 75 mg 04/22/18 10:00 04/22/18 09:38 Plavix - PO 75 mg DAILY [facility] Administration Docusate Sodium 300 mg 04/21/18 17:50 Colace - PO HS PRN CONSTIPATION Lactobacillus Acidophilus 1 tab 04/22/18 10:00 04/22/18 09:38 Bacid - PO 1 tab DAILY [facility] Administration Metoprolol Tartrate 50 mg 04/21/18 22:00 04/22/18 09:38 Lopressor - PO 50 mg BID [facility] Administration Pantoprazole Sodium 20 mg 04/22/18 10:00 04/22/18 09:39 Protonix - PO 20 mg DAILY [facility] Administration Polyethylene Glycol 17 gm 04/22/18 10:00 04/22/18 09:52 Miralax (For Daily Use) - PO 17 grams DAILY [facility] Administration Pregabalin 100 mg 04/22/18 10:00 04/22/18 09:39 Lyrica - PO 100 mg DAILY [facility] Administration Sitagliptin Phosphate 25 mg 04/22/18 07:00 04/22/18 06:12 Januvia - PO 25 mg DAILY@0700 [facility] Administration Microbiology Impression 1. ESRD 2. anemia 3. HTN 4. morbid obesity 5. CVA 6. hyperlipidemia 7. proteinuria - nephrotic 8. PVD 9. foot ulcer 10. bacteremia 11. left hilum density on CXR Plan - HD in am - follow blood cultures - ID eval - podiatry input appreciated - cont wound care - will follow - check vanco level
[2018-04-22] MEDS: ATORVASTATIN CA 80 MG TABLET (FP) PO SCH (22:19)
[2018-04-23] MEDS: sitaGLIPtin PHOSPHATE 25 MG TABLET (FP) PO SCH (06:33)
--- NOTE | 2018-04-23 08:43 | PN ---
Physical Exam: SUBJECTIVE: Patient seen and examined, He has no complaints at this time. OBJECTIVE: Vital Signs Period Temp Pulse Resp BP Sys/Leon Pulse Ox Last 24 Hr 97.9 F-98.6 F 60-68 18-18 104-114/53-60 98-98 GENERAL: The patient is awake, alert, and fully oriented, in no acute distress. morbidly obese in no distress HEAD: Normal with no signs of trauma. EYES: PERRL, extraocular movements intact, sclera anicteric, conjunctiva clear. No ptosis. ENT: Ears normal, nares patent, oropharynx clear without exudates, moist mucous membranes. NECK: Trachea midline, full range of motion, supple. LUNGS: Breath sounds equal, clear to auscultation bilaterally, no wheezes, no crackles, no accessory muscle use. HEART: Regular rate and rhythm, S1, S2 without murmur, rub or gallop. ABDOMEN: Soft, nontender, nondistended, normoactive bowel sounds, no guarding, no rebound, no hepatosplenomegaly, no masses. EXTREMITIES: 1+ DP pulses, warm, No edema, SP left foot total toe amputation and right foot under the dressing. NEUROLOGICAL: Cranial nerves II through XII grossly intact. Normal speech, gait not observed. PSYCH: Normal mood, normal affect. SKIN: Warm, dry, has scaling pink lesions on the areas that he had scratch on arms and back. Laboratory Results - last 24 hr 04/22/18 04/23/18 16:44 06:31 POC Glucometer 183 138 Active Medications Generic Name Dose Route Start Last Admin Trade Name Freq PRN Reason Stop Dose Admin Albuterol Sulfate 1 puff 04/21/18 18:07 Ventolin Hfa Inhaler - IH Q8H PRN SHORTNESS OF BREATH Aspirin 81 mg 04/22/18 10:00 04/22/18 09:39 Asa - PO 81 mg DAILY [facility] Administration Atorvastatin Calcium 80 mg 04/21/18 22:00 04/22/18 22:19 Lipitor - PO 80 mg HS [facility] Administration Calcium Acetate 1,334 mg 04/22/18 08:00 04/22/18 18:24 Phoslo - PO 1,334 mg TIDCM [facility] Administration Cholecalciferol 2,000 unit 04/22/18 10:00 04/22/18 09:38 Vitamin D3 - PO 2,000 unit DAILY [facility] Administration Clopidogrel Bisulfate 75 mg 04/22/18 10:00 04/22/18 09:38 Plavix - PO 75 mg DAILY [facility] Administration Docusate Sodium 300 mg 04/21/18 17:50 Colace - PO HS PRN CONSTIPATION Sodium Chloride 250 mls @ 3,000 mls/hr 04/22/18 15:36 Normal Saline - IV 04/23/18 15:36 PRN PRN Hypotension during Dialysis Lactobacillus Acidophilus 1 tab 04/22/18 10:00 04/22/18 09:38 Bacid - PO 1 tab DAILY [facility] Administration Metoprolol Tartrate 50 mg 04/21/18 22:00 04/22/18 22:19 Lopressor - PO 50 mg BID [facility] Administration Pantoprazole Sodium 20 mg 04/22/18 10:00 04/22/18 09:39 Protonix - PO 20 mg DAILY [facility] Administration Polyethylene Glycol 17 gm 04/22/18 10:00 04/22/18 09:52 Miralax (For Daily Use) - PO 17 grams DAILY [facility] Administration Pregabalin 100 mg 04/22/18 10:00 04/22/18 09:39 Lyrica - PO 100 mg DAILY [facility] Administration Sitagliptin Phosphate 25 mg 04/22/18 07:00 04/23/18 06:33 Januvia - PO 25 mg DAILY@0700 [facility] Administration Vancomycin HCl 1,000 mg 04/23/18 12:00 Vancomycin (Pre-Docked) IVPB 04/23/18 12:01 ONCE ONE Protocol ASSESSMENT/PLAN: 57 y/o M W morbid obesity, chronic RLE cellulitis, ESRD (//), HTN, COPD, CVA 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 blood draw was around 2 weeks ago, his vacation sales advisor, Dr. Chan, removed bone from R 2nd toe. per my conversation with the ID attending, he has grown strep and fugus on the BCX sent from the HD center, BCX here so far negative. Bacterimia post 2nd toe amputation 3 weeks ago: Has been afebrile, BCX ( while on vanc) has been negative after 4 days, New wound cultures sent yesterday by podiatry per ID attending as he fungemia in the sample at HD from the fistula will start him on can cancidas till the final results Will also change the antibicoit scto ceftriazone daily will send for TTE( negative CX in the hostpial but has fungemia) Skin lesions: will ask for dermatology to evaluate the patient ESRD on HD: She has been followed by nephrology and is getting HD CVA,: on DAPT, statin, encouraged to loose weight HTN:well controlled is on Metoprolol with no clear HX of CAD or palpitation, no other BP medication DM: is on sitagliptin,will check FS BID COPD: has no complaints at this time. DVT ppx: Started on Heparin Visit type - Emergency Visit Emergency Visit: Yes ED Registration Date: 04/21/18 Care time: The patient presented to the Emergency Department on the above date and was hospitalized for further evaluation of their emergent condition. - New Patient This patient is new to me today: No - Critical Care Critical Care patient: No - Discharge Referral Referred to [facility] Med P.C.: No
[2018-04-23] MEDS: PANTOPRAZOLE 20 MG TABLET (FP) PO SCH (09:38)
[2018-04-23] MEDS: PREGABALIN 100 MG CAPSULE PO SCH (09:38)
[2018-04-23] MEDS: ASPIRIN 81 MG CHEWABLE TABLETS PO SCH (09:38)
[2018-04-23] MEDS: METOPROLOL TARTRATE 50 MG TABLET (FP) PO SCH ×2 (09:38→21:00)
[2018-04-23] MEDS: CLOPIDOGREL BISULFATE 75 MG TABLET (FP) PO SCH (09:38)
[2018-04-23] MEDS: LACTOBACILLUS ACIDOPHILUS 1 TABLET PO SCH (09:38)
[2018-04-23] MEDS: CHOLECALCIFEROL (VITAMIN D3) 1,000 UNIT TABLET (FP) PO SCH (09:38)
[2018-04-23] MEDS: CALCIUM ACETATE 667 MG CAPSULE (FP) PO SCH ×3 (09:38→18:35)
[2018-04-23 09:43] LABS: HEMATOCRIT 35.8 % (35.4-49); HEMOGLOBIN 12.1 GM/dL (11.7-16.9); MCHC 33.8 g/dl (32.0-35.9); MEAN CELL VOLUME 94.6 fl (80-96); MEAN PLT VOLUME 9.6 fl (7.5-11.1); PLATELET COUNT 155 K/MM3 (134-434); RBC 3.78 M/mm3 (4.00-5.60); RDW 16.1 % (11.9-15.9); WHITE BLOOD COUNT 5.7 K/mm3 (4.0-10.0)
[2018-04-23 09:53] LABS: ANION GAP 13 MMOL/L (8-16); BLOOD UREA NITROGEN 55 mg/dL (7-18); CALCIUM 8.5 mg/dL (8.5-10.1); CHLORIDE 103 mmol/L (98-107); CO2 22 mmol/L (21-32); GLUCOSE,RANDOM 120 mg/dL (74-106); POTASSIUM 4.6 mmol/L (3.5-5.1); SODIUM 137 mmol/L (136-145)
--- NOTE | 2018-04-23 10:10 | PN ---
Progress Note (short form) - Note Progress Note: ID consult dictated imp/reccd obese diabetic 57 yo man with a chronic diabetic foot ulcer second toe- had refused amputation, now s/p removal of exposed bone 2/5 path with chronic osteo, no bone culture sent called by information coordinator and admitted for positive blood culture bacteremia (blood cultures drawn 04/17 before vancomycin was started for toe patient denies fevers has had recent RLE vascularization as well as angioplasty of his right AVF just spoke with information coordinator- dialysis culture one bottle budding yeast on bottle strep gordonii (viridans group) of note new rash for last one month both arms HGBA1c less then 7 no visual changes no dental visits poor dentition will start ceftriaxone daily and cancidas f/u cultures here and at HD echo derm evaluation of rash d/w hospitalist Problem List - Problems (1) Bacteremia Code(s): R78.81 - BACTEREMIA (2) Diabetic foot ulcer Code(s): E11.621 - TYPE 2 DIABETES MELLITUS WITH FOOT ULCER; L97.509 - NON- PRESSURE CHRONIC ULCER OTH PRT UNSP FOOT W UNSP SEVERITY (3) ESRD (end stage renal disease) Code(s): N18.6 - END STAGE RENAL DISEASE (4) Diabetes mellitus Code(s): E11.9 - TYPE 2 DIABETES MELLITUS WITHOUT COMPLICATIONS
[2018-04-23 10:16] LABS: CREATININE 8.6 mg/dL (0.55-1.3)
--- NOTE | 2018-04-23 11:37 | CONS ---
DATE OF CONSULTATION: DATE OF DICTATION: 04/23/2018 INFECTIOUS DISEASE CONSULTATION REQUESTED BY: Hospitalist service. This is a 57-year-old man who I know from prior admission. Last saw him in the fall. He has a history of diabetes, obesity, end-stage renal disease on dialysis. He had gangrene of his second toe. Had been treated with IV antibiotics and refused amputation. He was discharged to wound care followup. He had a protruding bone from his second toe. He was evaluated in the fall by Vascular Surgery after discharge from the hospital. Reports he had, sounds like, angioplasty of the right lower extremity as well. He had angioplasty of his AV fistula sometime in January or February. April 10 the protruding bone was removed by Podiatry and a graft was placed over that area. The chief gauger spoke with the hand buffer on the following week to request vancomycin during dialysis. Prior to starting antibiotics, blood cultures were routinely drawn on dialysis. The patient was called and asked to come to the hospital on April 21 because of positive blood cultures. He had been receiving vancomycin as an outpatient. I was asked to see him for the positive blood cultures. There were no fevers to suggest infection. These were drawn routinely prior to starting antibiotics for his foot. As well, the patient denies any fevers at home. He otherwise feels well. Reports his last hemoglobin A1c was less than 7. He has lost some weight. He does note that he has this new scratchy rash that is scattered on his upper arms as well as his right chest wall that he has now had for the last month. He is not on any steroids. He has not been to the dentist in a year and a half, and he has no other complaints. I spoke with the hand buffer this morning who reports his blood cultures from April 17 one bottle is growing yeast, and the other bottle is growing Streptococcus gordonii sensitive to third generation cephalosporin as well as vancomycin. PATIENT IS ALLERGIC TO FISH, SHELLFISH, AND BACTRIM. PAST MEDICAL HISTORY: Is notable for a history of CVA, hypertension, hyperlipidemia, sleep apnea, GERD, obesity, end-stage renal disease on dialysis, diabetes. SURGICAL HISTORY: Has an AV fistula and has a left TMA. SOCIAL HISTORY: He is independent, and he lives at home. There is no history of any cigarette use. REVIEW OF SYSTEMS: He reports weight loss. He has no fevers or chills, nausea, vomiting, diarrhea, or dysuria. Of note, the rash has been in the last month. MEDICATIONS: His medications at home include Demadex, Januvia, Lyrica, MiraLAX, Prilosec, Lopressor, Colace, Plavix, vitamin D, PhosLo, Lipitor, aspirin, and ProAir. PHYSICAL EXAMINATION: Vital Signs: His temperature is 97.9, pulse is 60, blood pressure is 109/53, respiratory rate is 18. He has been afebrile since admission. General: She is awake and alert. Vital Signs: He is afebrile. He is in no acute distress. HEENT: He is normocephalic. His eyes are anicteric. He has no conjunctival hemorrhages. He has no thrush or pharyngitis. He has poor dentition. Neck: Supple. Lungs: Clear to auscultation. Heart: Regular rate and rhythm. He has distant heart sounds. Abdomen: Soft, nontender. Skin: His AV fistula has a good thrill. There is no erythema. Notable for patchy rash. Extremities: He has a well-healed left TMA in his right leg. He has a second toe that is scabbed over. There is no exposed bone. LABORATORIES: Labs are notable for white count of 5.7, hemoglobin 12.1, platelets are 155. BUN 55 and creatinine 8.6. Liver function tests are normal. Blood culture and culture of the toe which is closed are pending. IN SUMMARY: This is a 57-year-old man with: 1. Polymicrobial bacteremia. He has both Streptococcus gordonii, which is in the Viridans group, as well as budding yeast in his blood. Of note, he also has this new rash. Would suggest at this time that we start ceftriaxone daily for the Streptococcus bacteremia, Cancidas for the yeast pending further ID. Follow up the cultures here and at dialysis. Would obtain an echo and a Dermatology evaluation. 2. Diabetic flood ulcer. Follow up with Dr. Alcantara. Will discuss the case with him. 3. End-stage renal disease on dialysis. Management per Renal. Case was discussed at length with both the hand buffer and with the hospitalist as well as the patient. ROBERT ECHEVERRIA M.D. [id number]
[2018-04-23] MEDS ORDERED: VANCOMYCIN 1 GM in D5W (PRE-DOCKED) 1,000 MG/250 ML IVPB ONE (12:00)
[2018-04-23] MEDS ORDERED: CASPOFUNGIN ACETATE 70 MG in SODIUM CHLORIDE 250 ML IVPB ONE (13:00)
[2018-04-23] MEDS: HEPARIN NA (PORCINE) 5,000 UNITS/ML 1ML VIAL SQ SCH ×2 (15:05→20:59)
--- NOTE | 2018-04-23 15:16 | PN ---
Progress Note, Physician History of Present Illness: Pt seen and examined at bedside. He is going for HD today. He denies fevers or chills. He did have a rash on his arms. - Current Medication List Current Medications: Active Medications Albuterol Sulfate (Ventolin Hfa Inhaler -) 1 puff IH Q8H PRN PRN Reason: SHORTNESS OF BREATH Aspirin (Asa -) 81 mg PO DAILY [facility] Last Admin: 04/23/18 09:38 Dose: 81 mg Atorvastatin Calcium (Lipitor -) 80 mg PO HS [facility] Last Admin: 04/22/18 22:19 Dose: 80 mg Calcium Acetate (Phoslo -) 1,334 mg PO TIDCM [facility] Last Admin: 04/23/18 12:47 Dose: 1,334 mg Cholecalciferol (Vitamin D3 -) 2,000 unit PO DAILY [facility] Last Admin: 04/23/18 09:38 Dose: 2,000 unit Clopidogrel Bisulfate (Plavix -) 75 mg PO DAILY [facility] Last Admin: 04/23/18 09:38 Dose: 75 mg Docusate Sodium (Colace -) 300 mg PO HS PRN PRN Reason: CONSTIPATION Heparin Sodium (Porcine) (Heparin -) 5,000 unit SQ TID [facility] Last Admin: 04/23/18 15:05 Dose: Not Given Sodium Chloride (Normal Saline -) 250 mls @ 3,000 mls/hr IV PRN PRN PRN Reason: Hypotension during Dialysis Stop: 04/23/18 15:36 Ceftriaxone Sodium 2 gm/ (Dextrose) 100 mls @ 200 mls/hr IVPB DAILY [facility]; Protocol Caspofungin 50 mg/ Sodium (Chloride) 250 mls @ 250 mls/hr IVPB DAILY [facility] Lactobacillus Acidophilus (Bacid -) 1 tab PO DAILY [facility] Last Admin: 04/23/18 09:38 Dose: 1 tab Metoprolol Tartrate (Lopressor -) 50 mg PO BID [facility] Last Admin: 04/23/18 09:38 Dose: 50 mg Pantoprazole Sodium (Protonix -) 20 mg PO DAILY [facility] Last Admin: 04/23/18 09:38 Dose: 20 mg Polyethylene Glycol (Miralax (For Daily Use) -) 17 gm PO DAILY [facility] Last Admin: 04/22/18 09:52 Dose: 17 grams Pregabalin (Lyrica -) 100 mg PO DAILY [facility] Last Admin: 04/23/18 09:38 Dose: 100 mg Sitagliptin Phosphate (Januvia -) 25 mg PO DAILY@0700 [facility] Last Admin: 04/23/18 06:33 Dose: 25 mg - Objective Vital Signs: Vital Signs Temperature 97.8 F 04/23/18 14:45 Pulse Rate 60 04/23/18 14:45 Respiratory Rate 20 04/23/18 14:45 Blood Pressure 118/73 04/23/18 14:45 O2 Sat by Pulse Oximetry (%) 98 04/23/18 09:00 Constitutional: Yes: Calm Eyes: Yes: Conjunctiva Clear HENT: Yes: Atraumatic Neck: Yes: Supple Cardiovascular: Yes: S1, S2 Respiratory: Yes: CTA Bilaterally Gastrointestinal: Yes: Soft, Abdomen, Obese Genitourinary: Yes: WNL Musculoskeletal: Yes: WNL Edema: Yes Edema: LLE: 2+, RLE: 2+ Neurological: Yes: Oriented Psychiatric: Yes: Oriented Labs: CBC, BMP 04/23/18 06:15 04/23/18 06:15 Problem List - Problems (1) Cellulitis Code(s): L03.90 - CELLULITIS, UNSPECIFIED (2) Diabetes mellitus Code(s): E11.9 - TYPE 2 DIABETES MELLITUS WITHOUT COMPLICATIONS (3) ESRD (end stage renal disease) Code(s): N18.6 - END STAGE RENAL DISEASE Assessment/Plan Current Medications Generic Name Dose Route Start Last Admin Trade Name Freq PRN Reason Stop Dose Admin Albuterol Sulfate 1 puff 04/21/18 18:07 Ventolin Hfa Inhaler - IH Q8H PRN SHORTNESS OF BREATH Aspirin 81 mg 04/22/18 10:00 04/23/18 09:38 Asa - PO 81 mg DAILY [facility] Administration Atorvastatin Calcium 80 mg 04/21/18 22:00 04/22/18 22:19 Lipitor - PO 80 mg HS [facility] Administration Calcium Acetate 1,334 mg 04/22/18 08:00 04/23/18 12:47 Phoslo - PO 1,334 mg TIDCM [facility] Administration Cholecalciferol 2,000 unit 04/22/18 10:00 04/23/18 09:38 Vitamin D3 - PO 2,000 unit DAILY [facility] Administration Clopidogrel Bisulfate 75 mg 04/22/18 10:00 04/23/18 09:38 Plavix - PO 75 mg DAILY [facility] Administration Docusate Sodium 300 mg 04/21/18 17:50 Colace - PO HS PRN CONSTIPATION Heparin Sodium (Porcine) 5,000 unit 04/23/18 14:00 04/23/18 15:05 Heparin - SQ Not Given TID [facility] Sodium Chloride 250 mls @ 3,000 mls/hr 04/22/18 15:36 Normal Saline - IV 04/23/18 15:36 PRN PRN Hypotension during Dialysis Ceftriaxone Sodium 2 gm/ 100 mls @ 200 mls/hr 04/23/18 13:00 Dextrose IVPB DAILY [facility] Protocol Caspofungin 50 mg/ Sodium 250 mls @ 250 mls/hr 04/24/18 10:30 Chloride IVPB DAILY [facility] Lactobacillus Acidophilus 1 tab 04/22/18 10:00 04/23/18 09:38 Bacid - PO 1 tab DAILY [facility] Administration Metoprolol Tartrate 50 mg 04/21/18 22:00 04/23/18 09:38 Lopressor - PO 50 mg BID [facility] Administration Pantoprazole Sodium 20 mg 04/22/18 10:00 04/23/18 09:38 Protonix - PO 20 mg DAILY [facility] Administration Polyethylene Glycol 17 gm 04/22/18 10:00 04/22/18 09:52 Miralax (For Daily Use) - PO 17 grams DAILY [facility] Administration Pregabalin 100 mg 04/22/18 10:00 04/23/18 09:38 Lyrica - PO 100 mg DAILY [facility] Administration Sitagliptin Phosphate 25 mg 04/22/18 07:00 04/23/18 06:33 Januvia - PO 25 mg DAILY@0700 [facility] Administration Microbiology 04/22/18 17:00 Toe - Right Second Gram Stain - Final 04/21/18 16:21 Blood - Peripheral Venous Blood Culture - Preliminary NO GROWTH OBTAINED AFTER 24 HOURS, INCUBATION TO CONTINUE FOR 4 DAYS. 04/21/18 16:21 Blood - Peripheral Venous Blood Culture - Preliminary NO GROWTH OBTAINED AFTER 24 HOURS, INCUBATION TO CONTINUE FOR 4 DAYS. Impression 1. ESRD 2. anemia 3. HTN 4. morbid obesity 5. CVA 6. hyperlipidemia 7. proteinuria - nephrotic 8. PVD 9. foot ulcer 10. bacteremia - also with budding yeast in bottled - from hd center 11. left hilum density on CXR Plan - HD today - cont to follow cultures - hd tomorrow for UF - discussed with ID, cont abx - renal diet - cont wound care - will follow l
[2018-04-23] MEDS ORDERED: DEXTROSE 5%-WATER 100 ML IVPB ONE (19:55)
[2018-04-23] MEDS ORDERED: PT OWN MED DRAWER 7, Y5N ONE (20:44)
[2018-04-23] MEDS: POLYETHYLENE GLYCOL 3350 119 GM BTL PO SCH (20:59)
[2018-04-23] MEDS: ATORVASTATIN CA 80 MG TABLET (FP) PO SCH (21:00)
[2018-04-23] MEDS: CEFTRIAXONE 2 GM in DEXTROSE 5%-WATER 100 ML IVPB SCH (21:00)
[2018-04-24] MEDS: INSULIN SLIDING SCALE (NOVOLOG) 1 VIAL SQ SCH ×4 (06:11→22:33)
[2018-04-24] MEDS: sitaGLIPtin PHOSPHATE 25 MG TABLET (FP) PO SCH (06:11)
[2018-04-24] MEDS: HEPARIN NA (PORCINE) 5,000 UNITS/ML 1ML VIAL SQ SCH ×3 (06:11→22:35)
[2018-04-24] MEDS ORDERED: DEXTROSE 5%-WATER 100 ML IVPB ONE (10:02)
[2018-04-24] MEDS ORDERED: PT OWN MED DRAWER 7, Y5N ONE (10:02)
[2018-04-24] MEDS: CALCIUM ACETATE 667 MG CAPSULE (FP) PO SCH ×3 (10:04→17:06)
[2018-04-24] MEDS: CHOLECALCIFEROL (VITAMIN D3) 1,000 UNIT TABLET (FP) PO SCH (10:15)
[2018-04-24] MEDS: PANTOPRAZOLE 20 MG TABLET (FP) PO SCH (10:15)
[2018-04-24] MEDS: CEFTRIAXONE 2 GM in DEXTROSE 5%-WATER 100 ML IVPB SCH (10:15)
[2018-04-24] MEDS: METOPROLOL TARTRATE 50 MG TABLET (FP) PO SCH ×2 (10:16→22:35)
[2018-04-24] MEDS: LACTOBACILLUS ACIDOPHILUS 1 TABLET PO SCH (10:16)
[2018-04-24] MEDS: ASPIRIN 81 MG CHEWABLE TABLETS PO SCH (10:16)
[2018-04-24] MEDS: PREGABALIN 100 MG CAPSULE PO SCH (10:16)
[2018-04-24] MEDS: CLOPIDOGREL BISULFATE 75 MG TABLET (FP) PO SCH (10:17)
[2018-04-24] MEDS: POLYETHYLENE GLYCOL 3350 119 GM BTL PO SCH (10:17)
[2018-04-24] MEDS: CASPOFUNGIN ACETATE 50 MG in SODIUM CHLORIDE 250 ML IVPB SCH (10:19)
--- NOTE | 2018-04-24 11:09 | PN ---
Physical Exam: SUBJECTIVE: Patient seen and examined at the bedside. In no acute distress denies pain. OBJECTIVE: Vital Signs Period Temp Pulse Resp BP Sys/Leon Pulse Ox Last 24 Hr 97.8 F-98.8 F 55-66 18-20 107-137/57-76 98-99 GENERAL: The patient is awake, alert, and fully oriented, in no acute distress. HEAD: Normal with no signs of trauma. EYES: PERRL, extraocular movements intact, sclera anicteric, conjunctiva clear. No ptosis. ENT: Ears normal, nares patent, oropharynx clear without exudates, moist mucous membranes. NECK: Trachea midline, full range of motion, supple. LUNGS: Breath sounds equal, clear to auscultation bilaterally HEART: Regular rate and rhythm ABDOMEN: Soft, nontender, nondistended, normoactive bowel sounds, no guarding, no rebound, no hepatosplenomegaly, no masses. EXTREMITIES: lower extremity non pitting edema. NEUROLOGICAL:Normal speech, steady gait with RW PSYCH: Normal mood, normal affect. 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/ml HCV RNA (PCR) IUs/ml HCV RNA PCR w/Genot Rflx Liver Fibrosis Interp Active Medications Generic Name Dose Route Start Last Admin Trade Name Freq PRN Reason Stop Dose Admin Albuterol Sulfate 1 puff 04/21/18 18:07 Ventolin Hfa Inhaler - IH Q8H PRN SHORTNESS OF BREATH Aspirin 81 mg 04/22/18 10:00 04/24/18 10:16 Asa - PO 81 mg DAILY [facility] Administration Atorvastatin Calcium 80 mg 04/21/18 22:00 04/23/18 21:00 Lipitor - PO 80 mg HS [facility] Administration Calcium Acetate 1,334 mg 04/22/18 08:00 04/24/18 10:04 Phoslo - PO 1,334 mg TIDCM [facility] Administration Cholecalciferol 2,000 unit 04/22/18 10:00 04/24/18 10:15 Vitamin D3 - PO 2,000 unit DAILY [facility] Administration Clopidogrel Bisulfate 75 mg 04/22/18 10:00 04/24/18 10:17 Plavix - PO 75 mg DAILY [facility] Administration Docusate Sodium 300 mg 04/21/18 17:50 Colace - PO HS PRN CONSTIPATION Heparin Sodium (Porcine) 5,000 unit 04/23/18 14:00 04/24/18 06:11 Heparin - SQ 5,000 unit TID [facility] Administration Ceftriaxone Sodium 2 gm/ 100 mls @ 200 mls/hr 04/23/18 13:00 04/24/18 10:15 Dextrose IVPB 200 mls/hr DAILY [facility] Administration Protocol Caspofungin 50 mg/ Sodium 250 mls @ 250 mls/hr 04/24/18 10:30 04/24/18 10:19 Chloride IVPB 250 mls/hr DAILY [facility] Administration Insulin Aspart 1 vial 04/24/18 07:00 04/24/18 06:11 Novolog Vial Sliding Scale - SQ Not Given ACHS [facility] Protocol Insulin Detemir 5 units 04/24/18 22:00 Levemir Vial SQ HS [facility] Lactobacillus Acidophilus 1 tab 04/22/18 10:00 04/24/18 10:16 Bacid - PO 1 tab DAILY [facility] Administration Metoprolol Tartrate 50 mg 04/21/18 22:00 04/24/18 10:16 Lopressor - PO 50 mg BID [facility] Administration Pantoprazole Sodium 20 mg 04/22/18 10:00 04/24/18 10:15 Protonix - PO 20 mg DAILY [facility] Administration Polyethylene Glycol 17 gm 04/22/18 10:00 04/24/18 10:17 Miralax (For Daily Use) - PO 17 grams DAILY [facility] Administration Pregabalin 100 mg 04/22/18 10:00 04/24/18 10:16 Lyrica - PO 100 mg DAILY [facility] Administration Sitagliptin Phosphate 25 mg 04/22/18 07:00 04/24/18 06:11 Januvia - PO 25 mg DAILY@0700 [facility] Administration ASSESSMENT/PLAN: Patient is a 57 year old male with a significant past medical history of chronic RLE cellulitis, ESRD (//), HTN, COPD, 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 Followed by Dr. Chan, who removed bone from R 2nd toe and was supposed to place to antibiotics, but states he was not placed right away. ID: Bacterimia post 2nd toe amputation 3 weeks ago. Has been afebrile, BCX (while on vanc) has been negative after 4 days. per ID attending as he fungemia in the sample at HD from the fistula will start him on can cancidas till the final results. On ceftriaxone. Echo ordered. Integumentary Skin lesions, bilateral upper arms Dermatology to evaluate. Renal: ESRD on HD: followed by nephrology and is getting HD. for dialysis today. Card: Hypertension: controlled is on Metoprolol Diabetes: On novolog ss, controlled. Pulm: COPD, stable has no complaints at this time. fen tolerating po monitor electrolytes low sodium/diabetic diet prophy heparin DVT ppx: Started on Heparin Visit type - Emergency Visit Emergency Visit: Yes ED Registration Date: 04/21/18 Care time: The patient presented to the Emergency Department on the above date and was hospitalized for further evaluation of their emergent condition. - New Patient This patient is new to me today: No - Critical Care Critical Care patient: No - Discharge Referral Referred to [facility] Med [facility] No
--- NOTE | 2018-04-24 16:03 | PN ---
Progress Note, Physician History of Present Illness: Pt seen and examined at bedside. He is awake and alert. He denies fevers or chills. - Current Medication List Current Medications: Active Medications Albuterol Sulfate (Ventolin Hfa Inhaler -) 1 puff IH Q8H PRN PRN Reason: SHORTNESS OF BREATH Aspirin (Asa -) 81 mg PO DAILY [facility] Last Admin: 04/24/18 10:16 Dose: 81 mg Atorvastatin Calcium (Lipitor -) 80 mg PO HS [facility] Last Admin: 04/23/18 21:00 Dose: 80 mg Calcium Acetate (Phoslo -) 1,334 mg PO TIDCM [facility] Last Admin: 04/24/18 13:31 Dose: Not Given Cholecalciferol (Vitamin D3 -) 2,000 unit PO DAILY [facility] Last Admin: 04/24/18 10:15 Dose: 2,000 unit Clopidogrel Bisulfate (Plavix -) 75 mg PO DAILY [facility] Last Admin: 04/24/18 10:17 Dose: 75 mg Docusate Sodium (Colace -) 300 mg PO HS PRN PRN Reason: CONSTIPATION Heparin Sodium (Porcine) (Heparin -) 5,000 unit SQ TID [facility] Last Admin: 04/24/18 13:32 Dose: Not Given Ceftriaxone Sodium 2 gm/ (Dextrose) 100 mls @ 200 mls/hr IVPB DAILY [facility]; Protocol Last Admin: 04/24/18 10:15 Dose: 200 mls/hr Caspofungin 50 mg/ Sodium (Chloride) 250 mls @ 250 mls/hr IVPB DAILY [facility] Last Admin: 04/24/18 10:19 Dose: 250 mls/hr Insulin Aspart (Novolog Vial Sliding Scale -) 1 vial SQ ACHS [facility]; Protocol Last Admin: 04/24/18 13:31 Dose: Not Given Insulin Detemir (Levemir Vial) 5 units SQ HS [facility] Lactobacillus Acidophilus (Bacid -) 1 tab PO DAILY [facility] Last Admin: 04/24/18 10:16 Dose: 1 tab Metoprolol Tartrate (Lopressor -) 50 mg PO BID [facility] Last Admin: 04/24/18 10:16 Dose: 50 mg Pantoprazole Sodium (Protonix -) 20 mg PO DAILY [facility] Last Admin: 04/24/18 10:15 Dose: 20 mg Polyethylene Glycol (Miralax (For Daily Use) -) 17 gm PO DAILY [facility] Last Admin: 04/24/18 10:17 Dose: 17 grams Pregabalin (Lyrica -) 100 mg PO DAILY [facility] Last Admin: 04/24/18 10:16 Dose: 100 mg Sitagliptin Phosphate (Januvia -) 25 mg PO DAILY@0700 [facility] Last Admin: 04/24/18 06:11 Dose: 25 mg - Objective Vital Signs: Vital Signs Temperature 98.7 F 04/24/18 10:00 Pulse Rate 61 04/24/18 15:10 Respiratory Rate 18 04/24/18 15:10 Blood Pressure 113/73 04/24/18 15:10 O2 Sat by Pulse Oximetry (%) 98 04/24/18 09:00 Constitutional: Yes: Calm Eyes: Yes: Conjunctiva Clear HENT: Yes: Atraumatic Neck: Yes: Supple Cardiovascular: Yes: S1, S2 Respiratory: Yes: CTA Bilaterally Gastrointestinal: Yes: Normal Bowel Sounds, Soft Genitourinary: Yes: WNL Edema: Yes Edema: LLE: 1+, RLE: 1+ Wound/Incision: Yes: Dressing Dry and Intact Neurological: Yes: Oriented Psychiatric: Yes: Oriented Labs: CBC, BMP 04/23/18 06:15 04/23/18 06:15 Problem List - Problems (1) Cellulitis Code(s): L03.90 - CELLULITIS, UNSPECIFIED (2) Diabetes mellitus Code(s): E11.9 - TYPE 2 DIABETES MELLITUS WITHOUT COMPLICATIONS (3) ESRD (end stage renal disease) Code(s): N18.6 - END STAGE RENAL DISEASE Assessment/Plan Current Medications Generic Name Dose Route Start Last Admin Trade Name Nataliia PRN Reason Stop Dose Admin Albuterol Sulfate 1 puff 04/21/18 18:07 Ventolin Hfa Inhaler - IH Q8H PRN SHORTNESS OF BREATH Aspirin 81 mg 04/22/18 10:00 04/24/18 10:16 Asa - PO 81 mg DAILY [facility] Administration Atorvastatin Calcium 80 mg 04/21/18 22:00 04/23/18 21:00 Lipitor - PO 80 mg HS [facility] Administration Calcium Acetate 1,334 mg 04/22/18 08:00 04/24/18 13:31 Phoslo - PO Not Given TIDCM [facility] Cholecalciferol 2,000 unit 04/22/18 10:00 04/24/18 10:15 Vitamin D3 - PO 2,000 unit DAILY [facility] Administration Clopidogrel Bisulfate 75 mg 04/22/18 10:00 04/24/18 10:17 Plavix - PO 75 mg DAILY [facility] Administration Docusate Sodium 300 mg 04/21/18 17:50 Colace - PO HS PRN CONSTIPATION Heparin Sodium (Porcine) 5,000 unit 04/23/18 14:00 04/24/18 13:32 Heparin - SQ Not Given TID [facility] Ceftriaxone Sodium 2 gm/ 100 mls @ 200 mls/hr 04/23/18 13:00 04/24/18 10:15 Dextrose IVPB 200 mls/hr DAILY [facility] Administration Protocol Caspofungin 50 mg/ Sodium 250 mls @ 250 mls/hr 04/24/18 10:30 04/24/18 10:19 Chloride IVPB 250 mls/hr DAILY [facility] Administration Insulin Aspart 1 vial 04/24/18 07:00 04/24/18 13:31 Novolog Vial Sliding Scale - SQ Not Given ACHS [facility] Protocol Insulin Detemir 5 units 04/24/18 22:00 Levemir Vial SQ HS [facility] Lactobacillus Acidophilus 1 tab 04/22/18 10:00 04/24/18 10:16 Bacid - PO 1 tab DAILY [facility] Administration Metoprolol Tartrate 50 mg 04/21/18 22:00 04/24/18 10:16 Lopressor - PO 50 mg BID [facility] Administration Pantoprazole Sodium 20 mg 04/22/18 10:00 04/24/18 10:15 Protonix - PO 20 mg DAILY [facility] Administration Polyethylene Glycol 17 gm 04/22/18 10:00 04/24/18 10:17 Miralax (For Daily Use) - PO 17 grams DAILY [facility] Administration Pregabalin 100 mg 04/22/18 10:00 04/24/18 10:16 Lyrica - PO 100 mg DAILY [facility] Administration Sitagliptin Phosphate 25 mg 04/22/18 07:00 04/24/18 06:11 Januvia - PO 25 mg DAILY@0700 [facility] Administration Impression 1. ESRD 2. anemia 3. HTN 4. morbid obesity 5. CVA 6. hyperlipidemia 7. proteinuria - nephrotic 8. PVD 9. foot ulcer 10. bacteremia - also with budding yeast in bottled - from hd center 11. left hilum density on CXR Plan - extra HD today for UF - next HD tomorrow as scheduled - follow cultures - cont wound care - renal diet - will follow l
[2018-04-24] MEDS ORDERED: SODIUM CHLORIDE 250 ML IV PRN (16:04)
--- NOTE | 2018-04-24 16:46 | PN ---
Progress Note (short form) - Note Progress Note: no complaints Vital Signs Period Temp Pulse Resp BP Sys/Leon Pulse Ox Last 24 Hr 98.7 F-98.8 F 55-557 18-20 93-133/55-83 98-99 cor-rrr lungs clear abd soft,nt ext unchanged CBC, BMP 04/23/18 06:15 04/23/18 06:15 Microbiology 04/21/18 16:21 Blood - Peripheral Venous Blood Culture - Preliminary NO GROWTH OBTAINED AFTER 72 HOURS, INCUBATION TO CONTINUE FOR 2 DAYS. 04/21/18 16:21 Blood - Peripheral Venous Blood Culture - Preliminary NO GROWTH OBTAINED AFTER 72 HOURS, INCUBATION TO CONTINUE FOR 2 DAYS. 04/22/18 17:00 Toe - Right Second Gram Stain - Final 04/22/18 17:00 Toe - Right Second Wound Culture - Preliminary Non Lactose Fermenting Gnb Presumptive Mssa (Pbp2a Neg) Group D Strep Or Entero Coccus a/p bacteremia (blood cultures drawn 04/17 before vancomycin was started for toe patient denies fevers has had recent RLE vascularization as well as angioplasty of his right AVF j fungemia strep bacteremia echo awaiting final ID of dialysis cultures will need optho exam (candidemia, r/o endopthalmitis) continue ceftriaxone and cancidas DM diabetic foot ulcer Problem List - Problems (1) Bacteremia Code(s): R78.81 - BACTEREMIA (2) Diabetic foot ulcer Code(s): E11.621 - TYPE 2 DIABETES MELLITUS WITH FOOT ULCER; L97.509 - NON- PRESSURE CHRONIC ULCER OTH PRT UNSP FOOT W UNSP SEVERITY (3) ESRD (end stage renal disease) Code(s): N18.6 - END STAGE RENAL DISEASE (4) Diabetes mellitus Code(s): E11.9 - TYPE 2 DIABETES MELLITUS WITHOUT COMPLICATIONS
--- NOTE | 2018-04-24 17:51 | PN ---
Progress Note (short form) - Note Progress Note: Podiatry F/U: Seen/evaluated at bedside NAD. Patient seen pre-HD. Blood cultures in HD (+). Patient is s/p R 2nd digit debridement, excision of bone and application of amniotic graft. he has been healing slowly. Denies F/V/N/C/SOB/CP. Afebrile. KEEGAN: L foot: healed TMA stump R foot: 2nd digit diabetic ulcer fibrogranular base regular borders, no probing to bone, no bone exposed, no purulence, no fluctuance, no streaking cellulitis, no soft tissue crepitus, no signs of acute infection. No tenderness to palpation. No ischemic changes to the foot. Wound Cx: MSSA, group D enterococcus, GNB Imp: 57 year old diabetic male with PVD and 2nd digit diabetic ulcer right foot 1. IV abx per ID 2. Continue local wound care 3. The toe ulcer is progressing nicely. Would hold off on second digit amputation for now and continue local wound care in the wound healing center. If condition worsens he may require toe amputation. Blood cultures in hospital negative thus far. He can f/u in wound healing center next Monday, . Amarilis Alcantara DPM
[2018-04-24] MEDS: INSULIN (LEVEMIR) 100 UNITS/ML UNITS SQ SCH (22:34)
[2018-04-24] MEDS: ATORVASTATIN CA 80 MG TABLET (FP) PO SCH (22:35)
[2018-04-24] MEDS: TRIAMCINOLONE ACET 0.1% OINT 15 GM TUBE TP SCH (23:16)
[2018-04-25 04:18] LABS: HBSAG SCREEN Negative (Negative); HEP B CORE AB, TOT Negative (Negative)
[2018-04-25] MEDS: sitaGLIPtin PHOSPHATE 25 MG TABLET (FP) PO SCH (06:05)
[2018-04-25] MEDS: HEPARIN NA (PORCINE) 5,000 UNITS/ML 1ML VIAL SQ SCH ×3 (06:06→22:40)
[2018-04-25] MEDS: INSULIN SLIDING SCALE (NOVOLOG) 1 VIAL SQ SCH ×4 (06:07→22:40)
[2018-04-25] MEDS: CALCIUM ACETATE 667 MG CAPSULE (FP) PO SCH ×3 (07:42→16:42)
[2018-04-25 09:35] LABS: BASO % 2.4 % (0-2.0); EOS % 10.8 % (0-4.5); HEMATOCRIT 35.8 % (35.4-49); HEMOGLOBIN 12.4 GM/dL (11.7-16.9); LYMPH % 16.4 % (8-40); MCH 32.2 pg (25.7-33.7); MCHC 34.5 g/dl (32.0-35.9); MEAN CELL VOLUME 93.4 fl (80-96); MEAN PLT VOLUME 9.8 fl (7.5-11.1); MONO % 9.7 % (3.8-10.2); NEUT % 60.7 % (42.8-82.8); PLATELET COUNT 108 K/MM3 (134-434); RBC 3.84 M/mm3 (4.00-5.60); RDW 16.4 % (11.9-15.9); WHITE BLOOD COUNT 6.6 K/mm3 (4.0-10.0)
[2018-04-25 10:24] LABS: ALBUMIN 3.2 g/dl (3.4-5.0); ALK PHOS 48 U/L (45-117); ANION GAP 11 MMOL/L (8-16); BILIRUBIN,TOTAL 0.5 mg/dL (0.2-1); BLOOD UREA NITROGEN 59 mg/dL (7-18); CALCIUM 8.3 mg/dL (8.5-10.1); CHLORIDE 100 mmol/L (98-107); CO2 24 mmol/L (21-32); GLUCOSE,RANDOM 219 mg/dL (74-106); POTASSIUM 4.2 mmol/L (3.5-5.1); SGOT/AST 20 U/L (15-37); SGPT/ALT 15 U/L (13-61); SODIUM 135 mmol/L (136-145); TOT PROT 6.9 g/dl (6.4-8.2)
[2018-04-25 11:13] LABS: CREATININE 8.8 mg/dL (0.55-1.3)
--- NOTE | 2018-04-25 13:06 | PN ---
Progress Note, Physician History of Present Illness: Pt seen and examined at bedside. He is tolerating HD. - Current Medication List Current Medications: Active Medications Albuterol Sulfate (Ventolin Hfa Inhaler -) 1 puff IH Q8H PRN PRN Reason: SHORTNESS OF BREATH Aspirin (Asa -) 81 mg PO DAILY [facility] Last Admin: 04/24/18 10:16 Dose: 81 mg Atorvastatin Calcium (Lipitor -) 80 mg PO HS [facility] Last Admin: 04/24/18 22:35 Dose: 80 mg Calcium Acetate (Phoslo -) 1,334 mg PO TIDCM [facility] Last Admin: 04/25/18 07:42 Dose: 1,334 mg Cholecalciferol (Vitamin D3 -) 2,000 unit PO DAILY [facility] Last Admin: 04/24/18 10:15 Dose: 2,000 unit Clopidogrel Bisulfate (Plavix -) 75 mg PO DAILY [facility] Last Admin: 04/24/18 10:17 Dose: 75 mg Docusate Sodium (Colace -) 300 mg PO HS PRN PRN Reason: CONSTIPATION Heparin Sodium (Porcine) (Heparin -) 5,000 unit SQ TID [facility] Last Admin: 04/25/18 06:06 Dose: 5,000 unit Ceftriaxone Sodium 2 gm/ (Dextrose) 100 mls @ 200 mls/hr IVPB DAILY [facility]; Protocol Last Admin: 04/24/18 10:15 Dose: 200 mls/hr Caspofungin 50 mg/ Sodium (Chloride) 250 mls @ 250 mls/hr IVPB DAILY [facility] Last Admin: 04/24/18 10:19 Dose: 250 mls/hr Sodium Chloride (Normal Saline -) 250 mls @ 3,000 mls/hr IV PRN PRN PRN Reason: Hypotension during Dialysis Stop: 04/25/18 16:04 Insulin Aspart (Novolog Vial Sliding Scale -) 1 vial SQ ACHS [facility]; Protocol Last Admin: 04/25/18 06:07 Dose: 2 units Insulin Detemir (Levemir Vial) 5 units SQ HS [facility] Last Admin: 04/24/18 22:34 Dose: 5 units Lactobacillus Acidophilus (Bacid -) 1 tab PO DAILY [facility] Last Admin: 04/24/18 10:16 Dose: 1 tab Metoprolol Tartrate (Lopressor -) 50 mg PO BID [facility] Last Admin: 04/24/18 22:35 Dose: 50 mg Pantoprazole Sodium (Protonix -) 20 mg PO DAILY [facility] Last Admin: 04/24/18 10:15 Dose: 20 mg Polyethylene Glycol (Miralax (For Daily Use) -) 17 gm PO DAILY [facility] Last Admin: 04/24/18 10:17 Dose: 17 grams Pregabalin (Lyrica -) 100 mg PO DAILY [facility] Last Admin: 04/24/18 10:16 Dose: 100 mg Sitagliptin Phosphate (Januvia -) 25 mg PO DAILY@0700 [facility] Last Admin: 04/25/18 06:05 Dose: 25 mg Triamcinolone Acetonide (Aristocort 0.1% Ointment -) 1 applic TP DAILY [facility] Last Admin: 04/24/18 23:16 Dose: 1 applic - Objective Vital Signs: Vital Signs Temperature 97.6 F 04/25/18 09:12 Pulse Rate 61 04/25/18 12:11 Respiratory Rate 18 04/25/18 12:11 Blood Pressure 106/65 04/25/18 12:11 O2 Sat by Pulse Oximetry (%) 100 04/25/18 09:00 Constitutional: Yes: Calm Eyes: Yes: Conjunctiva Clear HENT: Yes: Atraumatic Cardiovascular: Yes: S1, S2 Respiratory: Yes: CTA Bilaterally Gastrointestinal: Yes: Soft, Abdomen, Obese Genitourinary: Yes: WNL Extremities: Yes: Other (lymphedema) Edema: Yes Edema: LLE: 1+, RLE: 1+ Neurological: Yes: Oriented Psychiatric: Yes: Oriented Labs: CBC, BMP 04/25/18 09:00 04/25/18 09:00 Problem List - Problems (1) Cellulitis Code(s): L03.90 - CELLULITIS, UNSPECIFIED (2) Diabetes mellitus Code(s): E11.9 - TYPE 2 DIABETES MELLITUS WITHOUT COMPLICATIONS (3) ESRD (end stage renal disease) Code(s): N18.6 - END STAGE RENAL DISEASE Assessment/Plan Current Medications Generic Name Dose Route Start Last Admin Trade Name Freq PRN Reason Stop Dose Admin Albuterol Sulfate 1 puff 04/21/18 18:07 Ventolin Hfa Inhaler - IH Q8H PRN SHORTNESS OF BREATH Aspirin 81 mg 04/22/18 10:00 04/24/18 10:16 Asa - PO 81 mg DAILY [facility] Administration Atorvastatin Calcium 80 mg 04/21/18 22:00 04/24/18 22:35 Lipitor - PO 80 mg HS [facility] Administration Calcium Acetate 1,334 mg 04/22/18 08:00 04/25/18 07:42 Phoslo - PO 1,334 mg TIDCM [facility] Administration Cholecalciferol 2,000 unit 04/22/18 10:00 04/24/18 10:15 Vitamin D3 - PO 2,000 unit DAILY [facility] Administration Clopidogrel Bisulfate 75 mg 04/22/18 10:00 04/24/18 10:17 Plavix - PO 75 mg DAILY [facility] Administration Docusate Sodium 300 mg 04/21/18 17:50 Colace - PO HS PRN CONSTIPATION Heparin Sodium (Porcine) 5,000 unit 04/23/18 14:00 04/25/18 06:06 Heparin - SQ 5,000 unit TID [facility] Administration Ceftriaxone Sodium 2 gm/ 100 mls @ 200 mls/hr 04/23/18 13:00 04/24/18 10:15 Dextrose IVPB 200 mls/hr DAILY [facility] Administration Protocol Caspofungin 50 mg/ Sodium 250 mls @ 250 mls/hr 04/24/18 10:30 04/24/18 10:19 Chloride IVPB 250 mls/hr DAILY [facility] Administration Sodium Chloride 250 mls @ 3,000 mls/hr 04/24/18 16:04 Normal Saline - IV 04/25/18 16:04 PRN PRN Hypotension during Dialysis Insulin Aspart 1 vial 04/24/18 07:00 04/25/18 06:07 Novolog Vial Sliding Scale - SQ 2 units ACHS [facility] Administration Protocol Insulin Detemir 5 units 04/24/18 22:00 04/24/18 22:34 Levemir Vial SQ 5 units HS [facility] Administration Lactobacillus Acidophilus 1 tab 04/22/18 10:00 04/24/18 10:16 Bacid - PO 1 tab DAILY [facility] Administration Metoprolol Tartrate 50 mg 04/21/18 22:00 04/24/18 22:35 Lopressor - PO 50 mg BID [facility] Administration Pantoprazole Sodium 20 mg 04/22/18 10:00 04/24/18 10:15 Protonix - PO 20 mg DAILY [facility] Administration Polyethylene Glycol 17 gm 04/22/18 10:00 04/24/18 10:17 Miralax (For Daily Use) - PO 17 grams DAILY [facility] Administration Pregabalin 100 mg 04/22/18 10:00 04/24/18 10:16 Lyrica - PO 100 mg DAILY [facility] Administration Sitagliptin Phosphate 25 mg 04/22/18 07:00 04/25/18 06:05 Januvia - PO 25 mg DAILY@0700 [facility] Administration Triamcinolone Acetonide 1 applic 04/24/18 18:45 04/24/18 23:16 Aristocort 0.1% Ointment - TP 1 applic DAILY [facility] Administration Impression 1. ESRD 2. anemia 3. HTN 4. morbid obesity 5. CVA 6. hyperlipidemia 7. proteinuria - nephrotic 8. PVD 9. foot ulcer 10. bacteremia - also with budding yeast in bottled - from hd center 11. left hilum density on CXR Plan - HD today - next HD on Monday - cont to follow cultures - cont wound care - cont nepro - renal diet - will follow l
[2018-04-25] MEDS ORDERED: PT OWN MED DRAWER 7, Y5N ONE ×2 (13:23→13:24)
[2018-04-25] MEDS ORDERED: DEXTROSE 5%-WATER 100 ML IVPB ONE (13:24)
[2018-04-25] MEDS: TRIAMCINOLONE ACET 0.1% OINT 15 GM TUBE TP SCH (13:38)
[2018-04-25] MEDS: CHOLECALCIFEROL (VITAMIN D3) 1,000 UNIT TABLET (FP) PO SCH (13:39)
[2018-04-25] MEDS: ASPIRIN 81 MG CHEWABLE TABLETS PO SCH (13:39)
[2018-04-25] MEDS: CLOPIDOGREL BISULFATE 75 MG TABLET (FP) PO SCH (13:39)
[2018-04-25] MEDS: LACTOBACILLUS ACIDOPHILUS 1 TABLET PO SCH (13:39)
[2018-04-25] MEDS: PANTOPRAZOLE 20 MG TABLET (FP) PO SCH (13:39)
[2018-04-25] MEDS: METOPROLOL TARTRATE 50 MG TABLET (FP) PO SCH ×2 (13:40→22:40)
[2018-04-25] MEDS: PREGABALIN 100 MG CAPSULE PO SCH (13:40)
[2018-04-25] MEDS: POLYETHYLENE GLYCOL 3350 119 GM BTL PO SCH (13:40)
[2018-04-25] MEDS: CASPOFUNGIN ACETATE 50 MG in SODIUM CHLORIDE 250 ML IVPB SCH (13:42)
[2018-04-25] MEDS: CEFTRIAXONE 2 GM in DEXTROSE 5%-WATER 100 ML IVPB SCH (13:56)
--- NOTE | 2018-04-25 14:52 | PN ---
Progress Note (short form) - Note Progress Note: no complaints Vital Signs Period Temp Pulse Resp BP Sys/Leno Pulse Ox Last 24 Hr 97.4 F-97.9 F 59-98 18-20 97-136/52-74 98-100 cor-rrr lungs clear abd soft,nt ext left foot second toe unchanged, +dry flacking skin the entire foot skin rash on arms and shoulders CBC, BMP 04/25/18 09:00 04/25/18 09:00 Microbiology 04/22/18 17:00 Toe - Right Second Gram Stain - Final 04/22/18 17:00 Toe - Right Second Wound Culture - Final Serratia Liquefaciens Staphylococcus Aureus Vr Ec Faecalis 04/21/18 16:21 Blood - Peripheral Venous Blood Culture - Preliminary NO GROWTH OBTAINED AFTER 72 HOURS, INCUBATION TO CONTINUE FOR 2 DAYS. 04/21/18 16:21 Blood - Peripheral Venous Blood Culture - Preliminary NO GROWTH OBTAINED AFTER 72 HOURS, INCUBATION TO CONTINUE FOR 2 DAYS. a/p bacteremia (blood cultures drawn 04/17 before vancomycin was started for toe patient denies fevers has had recent RLE vascularization as well as angioplasty of his right AVF j fungemia strep bacteremia echo awaiting final ID of dialysis cultures will need optho exam (candidemia, r/o endopthalmitis)-either inpatient or after discharge home continue ceftriaxone and cancidas for now spoke with renal- still no final culture results DM diabetic foot ulcer-will d/w trade specialist Problem List - Problems (1) Bacteremia Code(s): R78.81 - BACTEREMIA (2) Diabetic foot ulcer Code(s): E11.621 - TYPE 2 DIABETES MELLITUS WITH FOOT ULCER; L97.509 - NON- PRESSURE CHRONIC ULCER OTH PRT UNSP FOOT W UNSP SEVERITY (3) ESRD (end stage renal disease) Code(s): N18.6 - END STAGE RENAL DISEASE (4) Diabetes mellitus Code(s): E11.9 - TYPE 2 DIABETES MELLITUS WITHOUT COMPLICATIONS
[2018-04-25] MEDS: BACITRACIN 15 GM TUBE TOPICAL OINTMENT TP SCH (15:41)
[2018-04-25 15:45] VITALS: BMI 41.9
--- NOTE | 2018-04-25 15:51 | PN ---
Physical Exam: SUBJECTIVE: Patient seen and examined at the bedside. OBJECTIVE: Vital Signs Period Temp Pulse Resp BP Sys/Leon Pulse Ox Last 24 Hr 97.4 F-97.9 F 59-98 18-20 97-136/52-74 98-100 GENERAL: The patient is awake, alert, and fully oriented, in no acute distress. HEAD: Normal with no signs of trauma. EYES: PERRL, extraocular movements intact, sclera anicteric, conjunctiva clear. No ptosis. ENT: Ears normal, nares patent, oropharynx clear without exudates, moist mucous membranes. NECK: Trachea midline, full range of motion, supple. LUNGS: Breath sounds equal, clear to auscultation bilaterally HEART: Regular rate and rhythm ABDOMEN: Soft, nontender, nondistended, normoactive bowel sounds, no guarding, no rebound, no hepatosplenomegaly, no masses. EXTREMITIES: lower extremity non pitting edema. 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 NEUROLOGICAL:Normal speech, steady gait with RW Laboratory Results - last 24 hr 04/23/18 04/24/18 04/24/18 14:41 17:08 22:31 WBC RBC Hgb Hct MCV MCH MCHC RDW Plt Count MPV Absolute Neuts (auto) Neutrophils % Lymphocytes % Monocytes % Eosinophils % Basophils % Nucleated RBC % Platelet Comment Sodium Potassium Chloride Carbon Dioxide Anion Gap BUN Creatinine Creat Clearance w eGFR POC Glucometer 398 204 Random Glucose Calcium Total Bilirubin AST ALT Alkaline Phosphatase Total Protein Albumin Hepatitis A Ab Total Negative Hep Bs Antigen Negative Hep Bs Antibody Reactive Hep B Core Total Ab Negative Hep C Ab Diagnostic 0.1 04/25/18 04/25/18 04/25/18 06:03 09:00 09:00 WBC 6.6 RBC 3.84 L Hgb 12.4 Hct 35.8 MCV 93.4 MCH 32.2 MCHC 34.5 RDW 16.4 H Plt Count 108 L D MPV 9.8 Absolute Neuts (auto) 4.0 Neutrophils % 60.7 Lymphocytes % 16.4 Monocytes % 9.7 Eosinophils % 10.8 H Basophils % 2.4 H Nucleated RBC % 0 Platelet Comment No clumping noted Sodium 135 L Potassium 4.2 Chloride 100 Carbon Dioxide 24 Anion Gap 11 BUN 59 H Creatinine 8.8 H* Creat Clearance w eGFR 6.26 POC Glucometer 151 Random Glucose 219 H Calcium 8.3 L Total Bilirubin 0.5 AST 20 ALT 15 Alkaline Phosphatase 48 Total Protein 6.9 Albumin 3.2 L Hepatitis A Ab Total Hep Bs Antigen Hep Bs Antibody Hep B Core Total Ab Hep C Ab Diagnostic 04/25/18 13:33 WBC RBC Hgb Hct MCV MCH MCHC RDW Plt Count MPV Absolute Neuts (auto) Neutrophils % Lymphocytes % Monocytes % Eosinophils % Basophils % Nucleated RBC % Platelet Comment Sodium Potassium Chloride Carbon Dioxide Anion Gap BUN Creatinine Creat Clearance w eGFR POC Glucometer 176 Random Glucose Calcium Total Bilirubin AST ALT Alkaline Phosphatase Total Protein Albumin Hepatitis A Ab Total Hep Bs Antigen Hep Bs Antibody Hep B Core Total Ab Hep C Ab Diagnostic Active Medications Generic Name Dose Route Start Last Admin Trade Name Freq PRN Reason Stop Dose Admin Albuterol Sulfate 1 puff 04/21/18 18:07 Ventolin Hfa Inhaler - IH Q8H PRN SHORTNESS OF BREATH Aspirin 81 mg 04/22/18 10:00 04/25/18 13:39 Asa - PO 81 mg DAILY [facility] Administration Atorvastatin Calcium 80 mg 04/21/18 22:00 04/24/18 22:35 Lipitor - PO 80 mg HS [facility] Administration Bacitracin 1 applic 04/25/18 15:30 04/25/18 15:41 Bacitracin - TP 1 applic DAILY [facility] Administration Calcium Acetate 1,334 mg 04/22/18 08:00 04/25/18 13:38 Phoslo - PO 1,334 mg TIDCM [facility] Administration Cholecalciferol 2,000 unit 04/22/18 10:00 04/25/18 13:39 Vitamin D3 - PO 2,000 unit DAILY [facility] Administration Clopidogrel Bisulfate 75 mg 04/22/18 10:00 04/25/18 13:39 Plavix - PO 75 mg DAILY [facility] Administration Docusate Sodium 300 mg 04/21/18 17:50 Colace - PO HS PRN CONSTIPATION Heparin Sodium (Porcine) 5,000 unit 04/23/18 14:00 04/25/18 13:41 Heparin - SQ 5,000 unit TID [facility] Administration Ceftriaxone Sodium 2 gm/ 100 mls @ 200 mls/hr 04/23/18 13:00 04/25/18 13:56 Dextrose IVPB 200 mls/hr DAILY [facility] Administration Protocol Caspofungin 50 mg/ Sodium 250 mls @ 250 mls/hr 04/24/18 10:30 04/25/18 13:42 Chloride IVPB 250 mls/hr DAILY [facility] Administration Sodium Chloride 250 mls @ 3,000 mls/hr 04/24/18 16:04 Normal Saline - IV 04/25/18 16:04 PRN PRN Hypotension during Dialysis Insulin Aspart 1 vial 04/24/18 07:00 04/25/18 13:37 Novolog Vial Sliding Scale - SQ 2 units ACHS [facility] Administration Protocol Insulin Detemir 5 units 04/24/18 22:00 04/24/18 22:34 Levemir Vial SQ 5 units HS [facility] Administration Lactobacillus Acidophilus 1 tab 04/22/18 10:00 04/25/18 13:39 Bacid - PO 1 tab DAILY [facility] Administration Metoprolol Tartrate 50 mg 04/21/18 22:00 04/25/18 13:40 Lopressor - PO 50 mg BID [facility] Administration Pantoprazole Sodium 20 mg 04/22/18 10:00 04/25/18 13:39 Protonix - PO 20 mg DAILY [facility] Administration Polyethylene Glycol 17 gm 04/22/18 10:00 04/25/18 13:40 Miralax (For Daily Use) - PO 17 grams DAILY [facility] Administration Pregabalin 100 mg 04/22/18 10:00 04/25/18 13:40 Lyrica - PO 100 mg DAILY [facility] Administration Sitagliptin Phosphate 25 mg 04/22/18 07:00 04/25/18 06:05 Januvia - PO 25 mg DAILY@0700 [facility] Administration Triamcinolone Acetonide 1 applic 04/24/18 18:45 04/25/18 13:38 Aristocort 0.1% Ointment - TP 1 applic DAILY [facility] Administration ASSESSMENT/PLAN: Patient is a 57 year old male with a significant past medical history of chronic RLE cellulitis, ESRD (//) via left upper arm fistula, HTN, COPD, 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 ID: Bacteremia Positive blood cultures from dialysis (cocci in pairs and chains-drawn 04/17/18) Has been afebrile, blood cultures drawn here are negative. wound culture with +VRE. Per ID notes, patient has fungemia in the sample at HD from the fistula and has been started on candicas until final results. On ceftriaxone and capsofungin. Echo ordered to rule out endocarditis. Will need eye exam on d/c. Integumentary Skin lesions, bilateral upper arms Dermatology to evaluate. Renal: ESRD on HD: followed by nephrology and is getting HD. had dialysis today. Card: Hypertension: controlled is on Metoprolol Diabetes: On novolog ss, controlled. Pulm: COPD, stable has no complaints at this time. fen tolerating po monitor electrolytes low sodium/diabetic diet prophy heparin Visit type - Emergency Visit Emergency Visit: Yes ED Registration Date: 04/21/18 Care time: The patient presented to the Emergency Department on the above date and was hospitalized for further evaluation of their emergent condition. - New Patient This patient is new to me today: No - Critical Care Critical Care patient: No - Discharge Referral Referred to [facility] Med [facility] No
[2018-04-25] MEDS ORDERED: INSULIN (NOVOLOG) ASPART 100 UNITS/ML 10ML VIAL ONE (16:31)
[2018-04-25] MEDS: INSULIN (LEVEMIR) 100 UNITS/ML UNITS SQ SCH (22:40)
[2018-04-25] MEDS: ATORVASTATIN CA 80 MG TABLET (FP) PO SCH (22:40)
[2018-04-26] MEDS: INSULIN SLIDING SCALE (NOVOLOG) 1 VIAL SQ SCH ×4 (07:05→22:58)
[2018-04-26] MEDS: sitaGLIPtin PHOSPHATE 25 MG TABLET (FP) PO SCH (07:06)
[2018-04-26] MEDS: HEPARIN NA (PORCINE) 5,000 UNITS/ML 1ML VIAL SQ SCH ×3 (07:06→22:19)
[2018-04-26] MEDS: CALCIUM ACETATE 667 MG CAPSULE (FP) PO SCH ×3 (07:54→16:51)
[2018-04-26] MEDS ORDERED: DEXTROSE 5%-WATER 100 ML IVPB ONE (09:15)
[2018-04-26] MEDS: TRIAMCINOLONE ACET 0.1% OINT 15 GM TUBE TP SCH (09:24)
[2018-04-26] MEDS: CEFTRIAXONE 2 GM in DEXTROSE 5%-WATER 100 ML IVPB SCH (09:25)
[2018-04-26] MEDS: CASPOFUNGIN ACETATE 50 MG in SODIUM CHLORIDE 250 ML IVPB SCH (09:25)
[2018-04-26] MEDS: METOPROLOL TARTRATE 50 MG TABLET (FP) PO SCH ×2 (09:26→22:19)
[2018-04-26] MEDS: CHOLECALCIFEROL (VITAMIN D3) 1,000 UNIT TABLET (FP) PO SCH (09:26)
[2018-04-26] MEDS: CLOPIDOGREL BISULFATE 75 MG TABLET (FP) PO SCH (09:26)
[2018-04-26] MEDS: PREGABALIN 100 MG CAPSULE PO SCH (09:26)
[2018-04-26] MEDS: LACTOBACILLUS ACIDOPHILUS 1 TABLET PO SCH (09:26)
[2018-04-26] MEDS: PANTOPRAZOLE 20 MG TABLET (FP) PO SCH (09:27)
[2018-04-26] MEDS: ASPIRIN 81 MG CHEWABLE TABLETS PO SCH (09:27)
[2018-04-26] MEDS: BACITRACIN 15 GM TUBE TOPICAL OINTMENT TP SCH (09:29)
--- NOTE | 2018-04-26 10:21 | PN ---
Physical Exam: SUBJECTIVE: Patient seen and examined. comfortable. OBJECTIVE: Vital Signs Period Temp Pulse Resp BP Sys/Leon Pulse Ox Last 24 Hr 97.4 F-98.4 F 57-98 18-20 97-123/52-71 99 GENERAL: The patient is awake, alert, and fully oriented, in no acute distress. HEAD: Normal with no signs of trauma. EYES: PERRL, extraocular movements intact, sclera anicteric, conjunctiva clear. No ptosis. ENT: Ears normal, nares patent, oropharynx clear without exudates, moist mucous membranes. NECK: Trachea midline, full range of motion, supple. LUNGS: Breath sounds equal, clear to auscultation bilaterally HEART: Regular rate and rhythm ABDOMEN: Soft, nontender, nondistended, normoactive bowel sounds, no guarding, no rebound, no hepatosplenomegaly, no masses. EXTREMITIES: lower extremity non pitting edema. 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 NEUROLOGICAL:Normal speech, steady gait with RW Laboratory Results - last 24 hr 04/25/18 04/25/18 04/25/18 09:00 09:00 13:33 Plt Count 108 L D MPV 9.8 Platelet Comment No clumping noted Sodium 135 L Potassium 4.2 Chloride 100 Carbon Dioxide 24 Anion Gap 11 BUN 59 H Creatinine 8.8 H* Creat Clearance w eGFR 6.26 POC Glucometer 176 Random Glucose 219 H Calcium 8.3 L Total Bilirubin 0.5 AST 20 ALT 15 Alkaline Phosphatase 48 Total Protein 6.9 Albumin 3.2 L 04/25/18 04/25/18 04/26/18 16:39 22:38 07:04 Plt Count MPV Platelet Comment Sodium Potassium Chloride Carbon Dioxide Anion Gap BUN Creatinine Creat Clearance w eGFR POC Glucometer 281 219 136 Random Glucose Calcium Total Bilirubin AST ALT Alkaline Phosphatase Total Protein Albumin Active Medications Generic Name Dose Route Start Last Admin Trade Name Freq PRN Reason Stop Dose Admin Albuterol Sulfate 1 puff 04/21/18 18:07 Ventolin Hfa Inhaler - IH Q8H PRN SHORTNESS OF BREATH Aspirin 81 mg 04/22/18 10:00 04/26/18 09:27 Asa - PO 81 mg DAILY [facility] Administration Atorvastatin Calcium 80 mg 04/21/18 22:00 04/25/18 22:40 Lipitor - PO 80 mg HS [facility] Administration Bacitracin 1 applic 04/25/18 15:30 04/26/18 09:29 Bacitracin - TP 1 applic DAILY [facility] Administration Calcium Acetate 1,334 mg 04/22/18 08:00 04/26/18 07:54 Phoslo - PO 1,334 mg TIDCM [facility] Administration Cholecalciferol 2,000 unit 04/22/18 10:00 04/26/18 09:26 Vitamin D3 - PO 2,000 unit DAILY [facility] Administration Clopidogrel Bisulfate 75 mg 04/22/18 10:00 04/26/18 09:26 Plavix - PO 75 mg DAILY [facility] Administration Docusate Sodium 300 mg 04/21/18 17:50 Colace - PO HS PRN CONSTIPATION Heparin Sodium (Porcine) 5,000 unit 04/23/18 14:00 04/26/18 07:06 Heparin - SQ 5,000 unit TID [facility] Administration Ceftriaxone Sodium 2 gm/ 100 mls @ 200 mls/hr 04/23/18 13:00 04/26/18 09:25 Dextrose IVPB 200 mls/hr DAILY [facility] Administration Protocol Caspofungin 50 mg/ Sodium 250 mls @ 250 mls/hr 04/24/18 10:30 04/26/18 09:25 Chloride IVPB 250 mls/hr DAILY [facility] Administration Insulin Aspart 1 vial 04/24/18 07:00 04/26/18 07:05 Novolog Vial Sliding Scale - SQ Not Given ACHS [facility] Protocol Insulin Detemir 5 units 04/24/18 22:00 04/25/18 22:40 Levemir Vial SQ 5 units HS [facility] Administration Lactobacillus Acidophilus 1 tab 04/22/18 10:00 04/26/18 09:26 Bacid - PO 1 tab DAILY [facility] Administration Metoprolol Tartrate 50 mg 04/21/18 22:00 04/26/18 09:26 Lopressor - PO 50 mg BID [facility] Administration Pantoprazole Sodium 20 mg 04/22/18 10:00 04/26/18 09:27 Protonix - PO 20 mg DAILY [facility] Administration Polyethylene Glycol 17 gm 04/22/18 10:00 04/25/18 13:40 Miralax (For Daily Use) - PO 17 grams DAILY [facility] Administration Pregabalin 100 mg 04/22/18 10:00 04/26/18 09:26 Lyrica - PO 100 mg DAILY [facility] Administration Sitagliptin Phosphate 25 mg 04/22/18 07:00 04/26/18 07:06 Januvia - PO 25 mg DAILY@0700 [facility] Administration Triamcinolone Acetonide 1 applic 04/24/18 18:45 04/26/18 09:24 Aristocort 0.1% Ointment - TP 1 applic DAILY [facility] Administration ASSESSMENT/PLAN: Patient is a 57 year old male with a significant past medical history of chronic RLE cellulitis, ESRD (/) via left upper arm fistula, HTN, COPD, 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 ID: Bacteremia Positive blood cultures from dialysis (cocci in pairs and chains-drawn 04/17/18) Has been afebrile, blood cultures drawn here are negative. wound culture with +VRE. Per ID notes, patient has fungemia in the sample at HD from the fistula and has been started on candicas until final results. On ceftriaxone and capsofungin. Echo ordered to rule out endocarditis. Will need eye exam on d/c. Integumentary Skin lesions, bilateral upper arms. on triamcinolone acetonide with improvement of rash. Renal: ESRD on HD: followed by nephrology and is getting HD. Card: Hypertension: controlled is on Metoprolol Diabetes: On novolog ss, controlled. Pulm: COPD, stable has no complaints at this time. fen tolerating po monitor electrolytes low sodium/diabetic diet prophy heparin Visit type - Emergency Visit Emergency Visit: Yes ED Registration Date: 04/21/18 Care time: The patient presented to the Emergency Department on the above date and was hospitalized for further evaluation of their emergent condition. - New Patient This patient is new to me today: No - Critical Care Critical Care patient: No - Discharge Referral Referred to [facility] Med P.C.: No
[2018-04-26] MEDS: POLYETHYLENE GLYCOL 3350 119 GM BTL PO SCH (10:28)
[2018-04-26] MEDS ORDERED: INSULIN (NOVOLOG) ASPART 100 UNITS/ML 10ML VIAL ONE ×2 (11:13→21:19)
[2018-04-26 14:18] LABS: ALK PHOS 45 U/L (45-117); ANION GAP 12 MMOL/L (8-16); BILIRUBIN,TOTAL 0.2 mg/dL (0.2-1); BLOOD UREA NITROGEN 52 mg/dL (7-18); CALCIUM 8.6 mg/dL (8.5-10.1); CHLORIDE 101 mmol/L (98-107); CO2 25 mmol/L (21-32); CREATININE 7.3 mg/dL (0.55-1.3); GLUCOSE,RANDOM 155 mg/dL (74-106); POTASSIUM 4.6 mmol/L (3.5-5.1); SGOT/AST 24 U/L (15-37); SGPT/ALT 17 U/L (13-61); SODIUM 137 mmol/L (136-145); TOT PROT 6.6 g/dl (6.4-8.2)
--- NOTE | 2018-04-26 15:52 | PN ---
Progress Note, Physician History of Present Illness: Pt seen and examined at bedside. He is awake and alert. He denies fevers or chills. - Current Medication List Current Medications: Active Medications Albuterol Sulfate (Ventolin Hfa Inhaler -) 1 puff IH Q8H PRN PRN Reason: SHORTNESS OF BREATH Aspirin (Asa -) 81 mg PO DAILY [facility] Last Admin: 04/26/18 09:27 Dose: 81 mg Atorvastatin Calcium (Lipitor -) 80 mg PO HS [facility] Last Admin: 04/25/18 22:40 Dose: 80 mg Bacitracin (Bacitracin -) 1 applic TP DAILY [facility] Last Admin: 04/26/18 09:29 Dose: 1 applic Calcium Acetate (Phoslo -) 1,334 mg PO TIDCM [facility] Last Admin: 04/26/18 12:06 Dose: 1,334 mg Cholecalciferol (Vitamin D3 -) 2,000 unit PO DAILY [facility] Last Admin: 04/26/18 09:26 Dose: 2,000 unit Clopidogrel Bisulfate (Plavix -) 75 mg PO DAILY [facility] Last Admin: 04/26/18 09:26 Dose: 75 mg Docusate Sodium (Colace -) 300 mg PO HS PRN PRN Reason: CONSTIPATION Heparin Sodium (Porcine) (Heparin -) 5,000 unit SQ TID [facility] Last Admin: 04/26/18 14:24 Dose: 5,000 unit Ceftriaxone Sodium 2 gm/ (Dextrose) 100 mls @ 200 mls/hr IVPB DAILY [facility]; Protocol Last Admin: 04/26/18 09:25 Dose: 200 mls/hr Caspofungin 50 mg/ Sodium (Chloride) 250 mls @ 250 mls/hr IVPB DAILY [facility] Last Admin: 04/26/18 09:25 Dose: 250 mls/hr Insulin Aspart (Novolog Vial Sliding Scale -) 1 vial SQ ACHS [facility]; Protocol Last Admin: 04/26/18 11:18 Dose: 2 units Insulin Detemir (Levemir Vial) 5 units SQ HS [facility] Last Admin: 04/25/18 22:40 Dose: 5 units Lactobacillus Acidophilus (Bacid -) 1 tab PO DAILY [facility] Last Admin: 04/26/18 09:26 Dose: 1 tab Metoprolol Tartrate (Lopressor -) 50 mg PO BID [facility] Last Admin: 04/26/18 09:26 Dose: 50 mg Pantoprazole Sodium (Protonix -) 20 mg PO DAILY [facility] Last Admin: 04/26/18 09:27 Dose: 20 mg Polyethylene Glycol (Miralax (For Daily Use) -) 17 gm PO DAILY [facility] Last Admin: 04/26/18 10:28 Dose: Not Given Pregabalin (Lyrica -) 100 mg PO DAILY [facility] Last Admin: 04/26/18 09:26 Dose: 100 mg Sitagliptin Phosphate (Januvia -) 25 mg PO DAILY@0700 [facility] Last Admin: 04/26/18 07:06 Dose: 25 mg Triamcinolone Acetonide (Aristocort 0.1% Ointment -) 1 applic TP DAILY [facility] Last Admin: 04/26/18 09:24 Dose: 1 applic - Objective Vital Signs: Vital Signs Temperature 97.7 F 04/26/18 14:13 Pulse Rate 59 L 04/26/18 14:13 Respiratory Rate 20 04/26/18 14:13 Blood Pressure 117/60 04/26/18 14:13 O2 Sat by Pulse Oximetry (%) 100 04/26/18 09:00 Constitutional: Yes: Calm Eyes: Yes: Conjunctiva Clear HENT: Yes: Atraumatic Neck: Yes: Supple Cardiovascular: Yes: S1, S2 Respiratory: Yes: CTA Bilaterally Gastrointestinal: Yes: Soft, Abdomen, Obese Genitourinary: Yes: WNL Musculoskeletal: Yes: WNL Edema: Yes Edema: LLE: 1+, RLE: 1+ Integumentary: Yes: Venous Stasis Changes Neurological: Yes: Oriented Psychiatric: Yes: Oriented Labs: CBC, BMP 04/25/18 09:00 04/26/18 12:30 Problem List - Problems (1) Cellulitis Code(s): L03.90 - CELLULITIS, UNSPECIFIED (2) Diabetes mellitus Code(s): E11.9 - TYPE 2 DIABETES MELLITUS WITHOUT COMPLICATIONS (3) ESRD (end stage renal disease) Code(s): N18.6 - END STAGE RENAL DISEASE Assessment/Plan Current Medications Generic Name Dose Route Start Last Admin Trade Name Freq PRN Reason Stop Dose Admin Albuterol Sulfate 1 puff 04/21/18 18:07 Ventolin Hfa Inhaler - IH Q8H PRN SHORTNESS OF BREATH Aspirin 81 mg 04/22/18 10:00 02/21/19 09:27 Asa - PO 81 mg DAILY [facility] Administration Atorvastatin Calcium 80 mg 04/21/18 22:00 04/25/18 22:40 Lipitor - PO 80 mg HS [facility] Administration Bacitracin 1 applic 04/25/18 15:30 04/26/18 09:29 Bacitracin - TP 1 applic DAILY [facility] Administration Calcium Acetate 1,334 mg 04/22/18 08:00 04/26/18 12:06 Phoslo - PO 1,334 mg TIDCM [facility] Administration Cholecalciferol 2,000 unit 04/22/18 10:00 04/26/18 09:26 Vitamin D3 - PO 2,000 unit DAILY [facility] Administration Clopidogrel Bisulfate 75 mg 04/22/18 10:00 04/26/18 09:26 Plavix - PO 75 mg DAILY [facility] Administration Docusate Sodium 300 mg 04/21/18 17:50 Colace - PO HS PRN CONSTIPATION Heparin Sodium (Porcine) 5,000 unit 04/23/18 14:00 04/26/18 14:24 Heparin - SQ 5,000 unit TID [facility] Administration Ceftriaxone Sodium 2 gm/ 100 mls @ 200 mls/hr 04/23/18 13:00 04/26/18 09:25 Dextrose IVPB 200 mls/hr DAILY [facility] Administration Protocol Caspofungin 50 mg/ Sodium 250 mls @ 250 mls/hr 04/24/18 10:30 04/26/18 09:25 Chloride IVPB 250 mls/hr DAILY [facility] Administration Insulin Aspart 1 vial 04/24/18 07:00 04/26/18 11:18 Novolog Vial Sliding Scale - SQ 2 units ACHS [facility] Administration Protocol Insulin Detemir 5 units 04/24/18 22:00 04/25/18 22:40 Levemir Vial SQ 5 units HS [facility] Administration Lactobacillus Acidophilus 1 tab 04/22/18 10:00 04/26/18 09:26 Bacid - PO 1 tab DAILY [facility] Administration Metoprolol Tartrate 50 mg 04/21/18 22:00 04/26/18 09:26 Lopressor - PO 50 mg BID [facility] Administration Pantoprazole Sodium 20 mg 04/22/18 10:00 04/26/18 09:27 Protonix - PO 20 mg DAILY [facility] Administration Polyethylene Glycol 17 gm 04/22/18 10:00 04/26/18 10:28 Miralax (For Daily Use) - PO Not Given DAILY [facility] Pregabalin 100 mg 04/22/18 10:00 04/26/18 09:26 Lyrica - PO 100 mg DAILY [facility] Administration Sitagliptin Phosphate 25 mg 04/22/18 07:00 04/26/18 07:06 Januvia - PO 25 mg DAILY@0700 [facility] Administration Triamcinolone Acetonide 1 applic 04/24/18 18:45 04/26/18 09:24 Aristocort 0.1% Ointment - TP 1 applic DAILY [facility] Administration Impression 1. ESRD 2. anemia 3. HTN 4. morbid obesity 5. CVA 6. hyperlipidemia 7. proteinuria - nephrotic 8. PVD 9. foot ulcer 10. bacteremia - also with budding yeast in bottled - from hd center 11. left hilum density on CXR Plan - HD in am - follow cultures - cont wound care - cont nepro - renal diet - will follow l
[2018-04-26] MEDS ORDERED: SODIUM CHLORIDE 250 ML IV PRN (15:53)
[2018-04-26 16:13] LABS: BASO % 2.1 % (0-2.0); EOS % 10.9 % (0-4.5); HEMATOCRIT 40.9 % (35.4-49); HEMOGLOBIN 13.8 GM/dL (11.7-16.9); MCH 31.9 pg (25.7-33.7); MCHC 33.8 g/dl (32.0-35.9); MEAN CELL VOLUME 94.4 fl (80-96); MONO % 7.3 % (3.8-10.2); NEUT % 66.7 % (42.8-82.8); PLATELET COUNT 132 K/MM3 (134-434); RBC 4.33 M/mm3 (4.00-5.60); RDW 16.3 % (11.9-15.9); WHITE BLOOD COUNT 7.2 K/mm3 (4.0-10.0)
[2018-04-26] MEDS: ATORVASTATIN CA 80 MG TABLET (FP) PO SCH (22:19)
[2018-04-26] MEDS: INSULIN (LEVEMIR) 100 UNITS/ML UNITS SQ SCH (22:59)
[2018-04-27] MEDS: sitaGLIPtin PHOSPHATE 25 MG TABLET (FP) PO SCH ×2 (05:57→06:23)
[2018-04-27] MEDS: HEPARIN NA (PORCINE) 5,000 UNITS/ML 1ML VIAL SQ SCH ×3 (05:57→22:09)
[2018-04-27] MEDS: INSULIN SLIDING SCALE (NOVOLOG) 1 VIAL SQ SCH ×5 (06:08→22:12)
[2018-04-27] MEDS ORDERED: DEXTROSE 5%-WATER 100 ML IVPB ONE (09:48)
[2018-04-27] MEDS: PREGABALIN 100 MG CAPSULE PO SCH (09:52)
[2018-04-27] MEDS: LACTOBACILLUS ACIDOPHILUS 1 TABLET PO SCH (09:52)
[2018-04-27] MEDS: ASPIRIN 81 MG CHEWABLE TABLETS PO SCH (09:52)
[2018-04-27] MEDS: CALCIUM ACETATE 667 MG CAPSULE (FP) PO SCH ×3 (09:53→17:52)
[2018-04-27] MEDS: CHOLECALCIFEROL (VITAMIN D3) 1,000 UNIT TABLET (FP) PO SCH (09:53)
[2018-04-27] MEDS: PANTOPRAZOLE 20 MG TABLET (FP) PO SCH (09:54)
[2018-04-27] MEDS: CLOPIDOGREL BISULFATE 75 MG TABLET (FP) PO SCH (09:54)
[2018-04-27] MEDS: POLYETHYLENE GLYCOL 3350 119 GM BTL PO SCH (09:55)
[2018-04-27] MEDS: TRIAMCINOLONE ACET 0.1% OINT 15 GM TUBE TP SCH (09:55)
[2018-04-27] MEDS: METOPROLOL TARTRATE 50 MG TABLET (FP) PO SCH ×2 (09:55→22:09)
[2018-04-27] MEDS: BACITRACIN 15 GM TUBE TOPICAL OINTMENT TP SCH (09:55)
--- NOTE | 2018-04-27 09:57 | ECHO ---
Version: 1 Name: GRACE BETH Exam: Adult Echocardiogram Study Date: 04/25/2018, 2:31 PM Age: 57 Years MMode/2D Measurements & Calculations IVSd: 1.25 cm LVIDs: 3.6 cm LVIDd: 5.6 cm LVPWd: 1.19 cm LVOT diam: 2.5 cm Ao root diam: 3.3 cm LA dimension: 4.9 cm Doppler Measurements & Calculations MV E max renny: 68.0 cm/sec Med E/e': 9.3 MV A max renny: 54.3 cm/sec Med Peak E' Renny: 7.3 cm/sec MV E/A: 1.25 Lat E/e': 9.0 Lat Peak E' Renny: 7.6 cm/sec Ao max P.5 mmHg Ao V2 max: 127.6 cm/sec PI end-d renny: 111.3 cm/sec Procedure Technically difficult study due to body habitus and lung tissue interference, resulting in limited v iew. Left Ventricle The left ventricle is grossly normal size. Left ventricular systolic function is grossly normal. Eje ction Fraction = 55%. E/A reversal consistent with but not diagnostic of poor LV compliance. Right Ventricle The right ventricular systolic function is grossly normal. Atria The left atrium is moderately dilated. Mitral Valve There is mild to moderate mitral annular calcification. There is mild mitral valve thickening. There is no vegetation seen on the mitral valve. There is mild mitral regurgitation. Tricuspid Valve The tricuspid valve is not well visualized. Aortic Valve There is mild aortic valve thickening. There is no aortic valvular vegetation. Pulmonic Valve The pulmonic valve is not well visualized. Great Vessels The aortic root is normal size. Pericardium/Pleura There is no pericardial effusion. Tech Comments Cannot definitively rule out vegetations because of limited views on this TTE. Consider JOSÉ MIGUEL if clini carri warranted. Summary Statements The left ventricle is grossly normal size. Left ventricular systolic function is grossly normal. Ejection Fraction = 55%. E/A reversal consistent with but not diagnostic of poor LV compliance The right ventricular systolic function is grossly normal. The left atrium is moderately dilated. There is mild to moderate mitral annular calcification. There is mild mitral valve thickening. There is mild mitral regurgitation. The tricuspid valve is not well visualized. There is mild aortic valve thickening. There is no aortic valvular vegetation. There is no vegetation seen on the mitral valve. The pulmonic valve is not well visualized. The aortic root is normal size. There is no pericardial effusion. Tan Santoro MD 04/27/2018, 9:56 AM Ordering Physician: Maida Giron Referring Physician: MIKE PEREZ Performed By: Sylvie Sparks
[2018-04-27] MEDS ORDERED: PT OWN MED DRAWER 7, Y5N ONE ×2 (11:30→22:02)
--- NOTE | 2018-04-27 11:46 | PN ---
Progress Note, Physician History of Present Illness: Pt seen and examined at bedside. He feels well. He denies shortness of breath. - Current Medication List Current Medications: Active Medications Albuterol Sulfate (Ventolin Hfa Inhaler -) 1 puff IH Q8H PRN PRN Reason: SHORTNESS OF BREATH Aspirin (Asa -) 81 mg PO DAILY [facility] Last Admin: 04/27/18 09:52 Dose: 81 mg Atorvastatin Calcium (Lipitor -) 80 mg PO HS [facility] Last Admin: 04/26/18 22:19 Dose: 80 mg Bacitracin (Bacitracin -) 1 applic TP DAILY [facility] Last Admin: 04/27/18 09:55 Dose: 1 applic Calcium Acetate (Phoslo -) 1,334 mg PO TIDCM [facility] Last Admin: 04/27/18 09:53 Dose: 1,334 mg Cholecalciferol (Vitamin D3 -) 2,000 unit PO DAILY [facility] Last Admin: 04/27/18 09:53 Dose: 2,000 unit Clopidogrel Bisulfate (Plavix -) 75 mg PO DAILY [facility] Last Admin: 04/27/18 09:54 Dose: 75 mg Docusate Sodium (Colace -) 300 mg PO HS PRN PRN Reason: CONSTIPATION Heparin Sodium (Porcine) (Heparin -) 5,000 unit SQ TID [facility] Last Admin: 04/27/18 05:57 Dose: 5,000 unit Ceftriaxone Sodium 2 gm/ (Dextrose) 100 mls @ 200 mls/hr IVPB DAILY [facility]; Protocol Last Admin: 04/26/18 09:25 Dose: 200 mls/hr Caspofungin 50 mg/ Sodium (Chloride) 250 mls @ 250 mls/hr IVPB DAILY [facility] Last Admin: 04/26/18 09:25 Dose: 250 mls/hr Sodium Chloride (Normal Saline -) 250 mls @ 3,000 mls/hr IV PRN PRN PRN Reason: Hypotension during Dialysis Stop: 04/27/18 15:53 Insulin Aspart (Novolog Vial Sliding Scale -) 1 vial SQ ACHS [facility]; Protocol Last Admin: 04/27/18 06:08 Dose: Not Given Insulin Detemir (Levemir Vial) 5 units SQ HS [facility] Last Admin: 04/26/18 22:59 Dose: 5 units Lactobacillus Acidophilus (Bacid -) 1 tab PO DAILY [facility] Last Admin: 04/27/18 09:52 Dose: 1 tab Metoprolol Tartrate (Lopressor -) 50 mg PO BID [facility] Last Admin: 04/27/18 09:55 Dose: Not Given Pantoprazole Sodium (Protonix -) 20 mg PO DAILY [facility] Last Admin: 04/27/18 09:54 Dose: 20 mg Polyethylene Glycol (Miralax (For Daily Use) -) 17 gm PO DAILY [facility] Last Admin: 04/27/18 09:55 Dose: Not Given Pregabalin (Lyrica -) 100 mg PO DAILY [facility] Last Admin: 04/27/18 09:52 Dose: 100 mg Sitagliptin Phosphate (Januvia -) 25 mg PO DAILY@0700 [facility] Last Admin: 04/27/18 06:23 Dose: 25 mg Triamcinolone Acetonide (Aristocort 0.1% Ointment -) 1 applic TP DAILY [facility] Last Admin: 04/27/18 09:55 Dose: 1 applic - Objective Vital Signs: Vital Signs Temperature 98 F 04/27/18 08:42 Pulse Rate 62 04/27/18 08:42 Respiratory Rate 18 04/27/18 08:42 Blood Pressure 119/70 04/27/18 08:42 O2 Sat by Pulse Oximetry (%) 98 04/27/18 08:29 Constitutional: Yes: Calm Eyes: Yes: Conjunctiva Clear HENT: Yes: Atraumatic Cardiovascular: Yes: S1, S2 Respiratory: Yes: CTA Bilaterally Gastrointestinal: Yes: Soft, Abdomen, Obese Genitourinary: Yes: WNL Musculoskeletal: Yes: WNL Edema: Yes Edema: LLE: 1+, RLE: 1+ Integumentary: Yes: Venous Stasis Changes Neurological: Yes: Oriented Psychiatric: Yes: Oriented Labs: CBC, BMP 04/26/18 15:30 04/26/18 12:30 Problem List - Problems (1) Cellulitis Code(s): L03.90 - CELLULITIS, UNSPECIFIED (2) Diabetes mellitus Code(s): E11.9 - TYPE 2 DIABETES MELLITUS WITHOUT COMPLICATIONS (3) ESRD (end stage renal disease) Code(s): N18.6 - END STAGE RENAL DISEASE Assessment/Plan Current Medications Generic Name Dose Route Start Last Admin Trade Name Freq PRN Reason Stop Dose Admin Albuterol Sulfate 1 puff 04/21/18 18:07 Ventolin Hfa Inhaler - IH Q8H PRN SHORTNESS OF BREATH Aspirin 81 mg 04/22/18 10:00 04/27/18 09:52 Asa - PO 81 mg DAILY [facility] Administration Atorvastatin Calcium 80 mg 04/21/18 22:00 04/26/18 22:19 Lipitor - PO 80 mg HS [facility] Administration Bacitracin 1 applic 04/25/18 15:30 04/27/18 09:55 Bacitracin - TP 1 applic DAILY [facility] Administration Calcium Acetate 1,334 mg 04/22/18 08:00 04/27/18 09:53 Phoslo - PO 1,334 mg TIDCM [facility] Administration Cholecalciferol 2,000 unit 04/22/18 10:00 04/27/18 09:53 Vitamin D3 - PO 2,000 unit DAILY [facility] Administration Clopidogrel Bisulfate 75 mg 04/22/18 10:00 04/27/18 09:54 Plavix - PO 75 mg DAILY [facility] Administration Docusate Sodium 300 mg 04/21/18 17:50 Colace - PO HS PRN CONSTIPATION Heparin Sodium (Porcine) 5,000 unit 04/23/18 14:00 04/27/18 05:57 Heparin - SQ 5,000 unit TID [facility] Administration Ceftriaxone Sodium 2 gm/ 100 mls @ 200 mls/hr 04/23/18 13:00 04/26/18 09:25 Dextrose IVPB 200 mls/hr DAILY [facility] Administration Protocol Caspofungin 50 mg/ Sodium 250 mls @ 250 mls/hr 04/24/18 10:30 04/26/18 09:25 Chloride IVPB 250 mls/hr DAILY [facility] Administration Sodium Chloride 250 mls @ 3,000 mls/hr 04/26/18 15:53 Normal Saline - IV 04/27/18 15:53 PRN PRN Hypotension during Dialysis Insulin Aspart 1 vial 04/24/18 07:00 04/27/18 06:08 Novolog Vial Sliding Scale - SQ Not Given ACHS [facility] Protocol Insulin Detemir 5 units 04/24/18 22:00 04/26/18 22:59 Levemir Vial SQ 5 units HS [facility] Administration Lactobacillus Acidophilus 1 tab 04/22/18 10:00 04/27/18 09:52 Bacid - PO 1 tab DAILY [facility] Administration Metoprolol Tartrate 50 mg 04/21/18 22:00 02/22/19 09:55 Lopressor - PO Not Given BID [facility] Pantoprazole Sodium 20 mg 04/22/18 10:00 04/27/18 09:54 Protonix - PO 20 mg DAILY [facility] Administration Polyethylene Glycol 17 gm 04/22/18 10:00 04/27/18 09:55 Miralax (For Daily Use) - PO Not Given DAILY [facility] Pregabalin 100 mg 04/22/18 10:00 04/27/18 09:52 Lyrica - PO 100 mg DAILY [facility] Administration Sitagliptin Phosphate 25 mg 04/22/18 07:00 04/27/18 06:23 Januvia - PO 25 mg DAILY@0700 [facility] Administration Triamcinolone Acetonide 1 applic 04/24/18 18:45 04/27/18 09:55 Aristocort 0.1% Ointment - TP 1 applic DAILY [facility] Administration Microbiology 04/22/18 17:00 Toe - Right Second Gram Stain - Final 04/22/18 17:00 Toe - Right Second Gram Stain - Final 04/21/18 16:21 Blood - Peripheral Venous Blood Culture - Final NO GROWTH AFTER 5 DAYS INCUBATION 04/21/18 16:21 Blood - Peripheral Venous Blood Culture - Final NO GROWTH AFTER 5 DAYS INCUBATION 04/22/18 17:00 Toe - Right Second Wound Culture - Preliminary Serratia Liquefaciens Staphylococcus Aureus Vr Ec Faecalis 04/22/18 17:00 Toe - Right Second Wound Culture - Preliminary Non Lactose Fermenting Gnb Presumptive Mssa (Pbp2a Neg) Group D Strep Or Entero Coccus 04/21/18 16:21 Blood - Peripheral Venous Blood Culture - Preliminary NO GROWTH OBTAINED AFTER 72 HOURS, INCUBATION TO CONTINUE FOR 2 DAYS. 04/21/18 16:21 Blood - Peripheral Venous Blood Culture - Preliminary NO GROWTH OBTAINED AFTER 72 HOURS, INCUBATION TO CONTINUE FOR 2 DAYS. 04/21/18 16:21 Blood - Peripheral Venous Blood Culture - Preliminary NO GROWTH OBTAINED AFTER 48 HOURS, INCUBATION TO CONTINUE FOR 3 DAYS. 04/21/18 16:21 Blood - Peripheral Venous Blood Culture - Preliminary NO GROWTH OBTAINED AFTER 48 HOURS, INCUBATION TO CONTINUE FOR 3 DAYS. Impression 1. ESRD 2. anemia 3. HTN 4. morbid obesity 5. CVA 6. hyperlipidemia 7. proteinuria - nephrotic 8. PVD 9. foot ulcer 10. bacteremia - also with budding yeast in bottled - from hd center - rhodotorulo mucilaginosa 11. left hilum density on CXR Plan - HD today - ID follow up for cultures form HD - cont to follow hosp cultures - cont wound care - cont nepro - renal diet - will follow l
[2018-04-27 11:48] LABS: EOS % 10.2 % (0-4.5); HEMATOCRIT 36.3 % (35.4-49); HEMOGLOBIN 12.4 GM/dL (11.7-16.9); MCH 31.7 pg (25.7-33.7); MCHC 34.1 g/dl (32.0-35.9); MEAN CELL VOLUME 92.9 fl (80-96); MEAN PLT VOLUME 10.8 fl (7.5-11.1); MONO % 9.2 % (3.8-10.2); NEUT % 66.6 % (42.8-82.8); PLATELET COUNT 119 K/MM3 (134-434); RDW 15.8 % (11.9-15.9); WHITE BLOOD COUNT 6.6 K/mm3 (4.0-10.0)
[2018-04-27 12:19] LABS: ALBUMIN 3.2 g/dl (3.4-5.0); ALK PHOS 47 U/L (45-117); ANION GAP 11 MMOL/L (8-16); BILIRUBIN,TOTAL 0.3 mg/dL (0.2-1); BLOOD UREA NITROGEN 80 mg/dL (7-18); CALCIUM 8.8 mg/dL (8.5-10.1); CHLORIDE 97 mmol/L (98-107); CO2 27 mmol/L (21-32); GLUCOSE,RANDOM 165 mg/dL (74-106); POTASSIUM 4.3 mmol/L (3.5-5.1); SGOT/AST 21 U/L (15-37); SGPT/ALT 21 U/L (13-61); SODIUM 134 mmol/L (136-145); TOT PROT 6.7 g/dl (6.4-8.2)
[2018-04-27] MEDS: CASPOFUNGIN ACETATE 50 MG in SODIUM CHLORIDE 250 ML IVPB SCH (12:19)
[2018-04-27 12:25] LABS: CREATININE 9.2 mg/dL (0.55-1.3)
[2018-04-27] MEDS: CEFTRIAXONE 2 GM in DEXTROSE 5%-WATER 100 ML IVPB SCH (13:53)
--- NOTE | 2018-04-27 15:25 | PN ---
Progress Note (short form) - Note Progress Note: no complaints seen at HD feels well no complaints Vital Signs Period Temp Pulse Resp BP Sys/Leon Pulse Ox Last 24 Hr 98 F-98.2 F 54-63 18-20 100-123/55-80 98-98 cor-rrr lungs clear abd soft,nt ext dressing intact on HD CBC, BMP 04/27/18 11:30 04/27/18 11:30 Microbiology 04/21/18 16:21 Blood - Peripheral Venous Blood Culture - Final NO GROWTH AFTER 5 DAYS INCUBATION 04/21/18 16:21 Blood - Peripheral Venous Blood Culture - Final NO GROWTH AFTER 5 DAYS INCUBATION 04/22/18 17:00 Toe - Right Second Gram Stain - Final 04/22/18 17:00 Toe - Right Second Wound Culture - Final Serratia Liquefaciens Staphylococcus Aureus Vr Ec Faecalis a/p bacteremia (blood cultures drawn 04/17 before vancomycin was started for toe patient denies fevers has had recent RLE vascularization in lst 3 months has AVF day #5 rocephin/cancidas fungemia strep bacteremia echo-no vegetations noted awaiting final ID of dialysis cultures will need optho exam (candidemia, r/o endopthalmitis)-either inpatient or after discharge home final culture results reviewed-- rhodotorulo mucilaginosa and strep gordonii- each one bottle these are most consistent with contaminants would d/c antibiotics have asked microbiology to hold blood cultures for 14 days should still see optholomology as outpt he was never symptomatic and the cultures were drawn prior to starting vancomycin as outpt (he was symptomatic) DM diabetic foot ulcer-d/w podiatry- to f/u in wound care Problem List - Problems (1) Bacteremia Code(s): R78.81 - BACTEREMIA (2) Diabetic foot ulcer Code(s): E11.621 - TYPE 2 DIABETES MELLITUS WITH FOOT ULCER; L97.509 - NON- PRESSURE CHRONIC ULCER OTH PRT UNSP FOOT W UNSP SEVERITY (3) ESRD (end stage renal disease) Code(s): N18.6 - END STAGE RENAL DISEASE (4) Diabetes mellitus Code(s): E11.9 - TYPE 2 DIABETES MELLITUS WITHOUT COMPLICATIONS
[2018-04-27 16:30] LABS: CREATININE 4.2 mg/dL (0.55-1.3)
--- NOTE | 2018-04-27 17:20 | PN ---
Physical Exam: SUBJECTIVE: Patient seen and examined at the bedside. in no acute distress. feels well. OBJECTIVE: Vital Signs Period Temp Pulse Resp BP Sys/Leon Pulse Ox Last 24 Hr 98 F-98.2 F 54-63 18-20 85-123/43-80 98-98 GENERAL: The patient is awake, alert, and fully oriented, in no acute distress. HEAD: Normal with no signs of trauma. EYES: PERRL, extraocular movements intact, sclera anicteric, conjunctiva clear. No ptosis. ENT: Ears normal, nares patent, oropharynx clear without exudates, moist mucous membranes. NECK: Trachea midline, full range of motion, supple. LUNGS: Breath sounds equal, clear to auscultation bilaterally HEART: Regular rate and rhythm ABDOMEN: Soft, nontender, nondistended, normoactive bowel sounds, no guarding, no rebound, no hepatosplenomegaly, no masses. EXTREMITIES: lower extremity non pitting edema. 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 NEUROLOGICAL:Normal speech, steady gait with RW Laboratory Results - last 24 hr 04/26/18 04/27/18 04/27/18 22:56 05:54 11:30 WBC 6.6 RBC 3.90 L Hgb 12.4 Hct 36.3 MCV 92.9 MCH 31.7 MCHC 34.1 RDW 15.8 Plt Count 119 L MPV 10.8 Absolute Neuts (auto) 4.4 Neutrophils % 66.6 Lymphocytes % 12.0 Monocytes % 9.2 Eosinophils % 10.2 H Basophils % 2.0 Nucleated RBC % 0 Sodium Potassium Chloride Carbon Dioxide Anion Gap BUN Creatinine Creat Clearance w eGFR POC Glucometer 210 117 Random Glucose Calcium Total Bilirubin AST ALT Alkaline Phosphatase Total Protein Albumin 04/27/18 04/27/18 11:30 15:15 WBC RBC Hgb Hct MCV MCH MCHC RDW Plt Count MPV Absolute Neuts (auto) Neutrophils % Lymphocytes % Monocytes % Eosinophils % Basophils % Nucleated RBC % Sodium 134 L Potassium 4.3 Chloride 97 L Carbon Dioxide 27 Anion Gap 11 BUN 80 H 30 H Creatinine 9.2 H* 4.2 H Creat Clearance w eGFR 5.95 POC Glucometer Random Glucose 165 H Calcium 8.8 Total Bilirubin 0.3 AST 21 ALT 21 Alkaline Phosphatase 47 Total Protein 6.7 Albumin 3.2 L Active Medications Generic Name Dose Route Start Last Admin Trade Name Freq PRN Reason Stop Dose Admin Albuterol Sulfate 1 puff 04/21/18 18:07 Ventolin Hfa Inhaler - IH Q8H PRN SHORTNESS OF BREATH Aspirin 81 mg 04/22/18 10:00 04/27/18 09:52 Asa - PO 81 mg DAILY [facility] Administration Atorvastatin Calcium 80 mg 04/21/18 22:00 04/26/18 22:19 Lipitor - PO 80 mg HS [facility] Administration Bacitracin 1 applic 04/25/18 15:30 04/27/18 09:55 Bacitracin - TP 1 applic DAILY [facility] Administration Calcium Acetate 1,334 mg 04/22/18 08:00 04/27/18 14:09 Phoslo - PO Not Given TIDCM [facility] Cholecalciferol 2,000 unit 04/22/18 10:00 04/27/18 09:53 Vitamin D3 - PO 2,000 unit DAILY [facility] Administration Clopidogrel Bisulfate 75 mg 04/22/18 10:00 04/27/18 09:54 Plavix - PO 75 mg DAILY [facility] Administration Docusate Sodium 300 mg 04/21/18 17:50 Colace - PO HS PRN CONSTIPATION Heparin Sodium (Porcine) 5,000 unit 04/23/18 14:00 04/27/18 14:09 Heparin - SQ Not Given TID [facility] Insulin Aspart 1 vial 04/24/18 07:00 04/27/18 11:44 Novolog Vial Sliding Scale - SQ Not Given ACHS [facility] Protocol Insulin Detemir 5 units 04/24/18 22:00 04/26/18 22:59 Levemir Vial SQ 5 units HS [facility] Administration Lactobacillus Acidophilus 1 tab 04/22/18 10:00 04/27/18 09:52 Bacid - PO 1 tab DAILY [facility] Administration Metoprolol Tartrate 50 mg 04/21/18 22:00 04/27/18 09:55 Lopressor - PO Not Given BID [facility] Pantoprazole Sodium 20 mg 04/22/18 10:00 04/27/18 09:54 Protonix - PO 20 mg DAILY [facility] Administration Polyethylene Glycol 17 gm 04/22/18 10:00 04/27/18 09:55 Miralax (For Daily Use) - PO Not Given DAILY [facility] Pregabalin 100 mg 04/22/18 10:00 04/27/18 09:52 Lyrica - PO 100 mg DAILY [facility] Administration Sitagliptin Phosphate 25 mg 04/22/18 07:00 04/27/18 06:23 Januvia - PO 25 mg DAILY@0700 [facility] Administration Triamcinolone Acetonide 1 applic 04/24/18 18:45 04/27/18 09:55 Aristocort 0.1% Ointment - TP 1 applic DAILY [facility] Administration ASSESSMENT/PLAN: Patient is a 57 year old male with a significant past medical history of chronic RLE cellulitis, ESRD (//) via left upper arm fistula, HTN, COPD, 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 ID: Bacteremia Positive blood cultures from dialysis (cocci in pairs and chains-drawn 04/17/18) Has been afebrile, blood cultures drawn here are negative. wound culture with +VRE. Per ID notes, patient has fungemia in the sample at HD from the fistula and has been started on candicas until final results. On ceftriaxone and capsofungin. Echo reviewed. Will need eye exam on d/c. Integumentary Skin lesions, bilateral upper arms. on triamcinolone acetonide with improvement of rash. Renal: ESRD on HD: followed by nephrology and is getting HD. Card: Hypertension: controlled is on Metoprolol Diabetes: On novolog ss, controlled. Pulm: COPD, stable has no complaints at this time. fen tolerating po monitor electrolytes low sodium/diabetic diet prophy heparin Visit type - Emergency Visit Emergency Visit: Yes ED Registration Date: 04/21/18 Care time: The patient presented to the Emergency Department on the above date and was hospitalized for further evaluation of their emergent condition. - New Patient This patient is new to me today: No - Critical Care Critical Care patient: No - Discharge Referral Referred to [id number] Med P.C.: No
[2018-04-27] MEDS ORDERED: INSULIN (NOVOLOG) ASPART 100 UNITS/ML 10ML VIAL ONE (22:01)
[2018-04-27] MEDS: ATORVASTATIN CA 80 MG TABLET (FP) PO SCH (22:09)
[2018-04-27] MEDS: INSULIN (LEVEMIR) 100 UNITS/ML UNITS SQ SCH (22:12)
[2018-04-28] MEDS: HEPARIN NA (PORCINE) 5,000 UNITS/ML 1ML VIAL SQ SCH ×3 (06:25→21:41)
[2018-04-28] MEDS: INSULIN SLIDING SCALE (NOVOLOG) 1 VIAL SQ SCH ×4 (06:25→21:40)
[2018-04-28] MEDS: sitaGLIPtin PHOSPHATE 25 MG TABLET (FP) PO SCH (06:25)
[2018-04-28] MEDS ORDERED: INSULIN (LEVEMIR) 100 UNITS/ML UNITS SQ ONE (06:57)
[2018-04-28] MEDS ORDERED: INSULIN (NOVOLOG) ASPART 100 UNITS/ML 10ML VIAL ONE ×2 (06:58→20:50)
[2018-04-28] MEDS: CALCIUM ACETATE 667 MG CAPSULE (FP) PO SCH ×3 (07:35→17:05)
[2018-04-28] MEDS: ASPIRIN 81 MG CHEWABLE TABLETS PO SCH (09:33)
[2018-04-28] MEDS: CLOPIDOGREL BISULFATE 75 MG TABLET (FP) PO SCH (09:33)
[2018-04-28] MEDS: CHOLECALCIFEROL (VITAMIN D3) 1,000 UNIT TABLET (FP) PO SCH (09:33)
[2018-04-28] MEDS: METOPROLOL TARTRATE 50 MG TABLET (FP) PO SCH ×2 (09:33→21:40)
[2018-04-28] MEDS: POLYETHYLENE GLYCOL 3350 119 GM BTL PO SCH (09:33)
[2018-04-28] MEDS: PREGABALIN 100 MG CAPSULE PO SCH (09:34)
[2018-04-28] MEDS: LACTOBACILLUS ACIDOPHILUS 1 TABLET PO SCH (09:34)
[2018-04-28] MEDS: PANTOPRAZOLE 20 MG TABLET (FP) PO SCH (09:34)
[2018-04-28] MEDS: BACITRACIN 15 GM TUBE TOPICAL OINTMENT TP SCH (09:35)
[2018-04-28] MEDS: TRIAMCINOLONE ACET 0.1% OINT 15 GM TUBE TP SCH (09:35)
[2018-04-28 11:03] LABS: ALBUMIN 3.4 g/dl (3.4-5.0); ALK PHOS 44 U/L (45-117); ANION GAP 10 MMOL/L (8-16); BILIRUBIN,TOTAL 0.4 mg/dL (0.2-1); BLOOD UREA NITROGEN 52 mg/dL (7-18); CALCIUM 8.7 mg/dL (8.5-10.1); CHLORIDE 96 mmol/L (98-107); CO2 30 mmol/L (21-32); GLUCOSE,RANDOM 93 mg/dL (74-106); POTASSIUM 4.2 mmol/L (3.5-5.1); SGOT/AST 28 U/L (15-37); SGPT/ALT 23 U/L (13-61); SODIUM 135 mmol/L (136-145); TOT PROT 6.8 g/dl (6.4-8.2)
--- NOTE | 2018-04-28 11:51 | PN ---
Physical Exam: SUBJECTIVE: Patient seen and examined. denies pain, denies shortness of breath or any malaise. OBJECTIVE: discharge planning Vital Signs Period Temp Pulse Resp BP Sys/Leon Pulse Ox Last 24 Hr 97.8 F-98.8 F 54-68 18-20 85-139/41-76 98 GENERAL: The patient is awake, alert, and fully oriented, in no acute distress. HEAD: Normal with no signs of trauma. EYES: PERRL, extraocular movements intact, sclera anicteric, conjunctiva clear. No ptosis. ENT: Ears normal, nares patent, oropharynx clear without exudates, moist mucous membranes. NECK: Trachea midline, full range of motion, supple. LUNGS: Breath sounds equal, clear to auscultation bilaterally HEART: Regular rate and rhythm ABDOMEN: Soft, nontender, nondistended, normoactive bowel sounds, no guarding, no rebound, no hepatosplenomegaly, no masses. EXTREMITIES: lower extremity non pitting edema. 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 NEUROLOGICAL:Normal speech, steady gait with RW Laboratory Results - last 24 hr 04/27/18 04/27/18 04/27/18 11:30 11:30 15:15 WBC 6.6 RBC 3.90 L Hgb 12.4 Hct 36.3 MCV 92.9 MCH 31.7 MCHC 34.1 RDW 15.8 Plt Count 119 L MPV 10.8 Absolute Neuts (auto) 4.4 Neutrophils % 66.6 Lymphocytes % 12.0 Monocytes % 9.2 Eosinophils % 10.2 H Basophils % 2.0 Nucleated RBC % 0 ESR Sodium 134 L Potassium 4.3 Chloride 97 L Carbon Dioxide 27 Anion Gap 11 BUN 80 H 30 H Creatinine 9.2 H* 4.2 H Creat Clearance w eGFR 5.95 POC Glucometer Random Glucose 165 H Calcium 8.8 Total Bilirubin 0.3 AST 21 ALT 21 Alkaline Phosphatase 47 C-Reactive Protein Total Protein 6.7 Albumin 3.2 L 04/27/18 04/27/18 04/28/18 18:13 22:10 06:19 WBC RBC Hgb Hct MCV MCH MCHC RDW Plt Count MPV Absolute Neuts (auto) Neutrophils % Lymphocytes % Monocytes % Eosinophils % Basophils % Nucleated RBC % ESR Sodium Potassium Chloride Carbon Dioxide Anion Gap BUN Creatinine Creat Clearance w eGFR POC Glucometer 221 286 108 Random Glucose Calcium Total Bilirubin AST ALT Alkaline Phosphatase C-Reactive Protein Total Protein Albumin 04/28/18 04/28/18 04/28/18 07:00 07:00 11:33 WBC RBC Hgb Hct MCV MCH MCHC RDW Plt Count MPV Absolute Neuts (auto) Neutrophils % Lymphocytes % Monocytes % Eosinophils % Basophils % Nucleated RBC % ESR 25 H Sodium 135 L Potassium 4.2 Chloride 96 L Carbon Dioxide 30 Anion Gap 10 BUN 52 H Creatinine 7.0 H Creat Clearance w eGFR 8.15 POC Glucometer 254 Random Glucose 93 Calcium 8.7 Total Bilirubin 0.4 AST 28 ALT 23 Alkaline Phosphatase 44 L C-Reactive Protein 0.4 H Total Protein 6.8 Albumin 3.4 Active Medications Generic Name Dose Route Start Last Admin Trade Name Freq PRN Reason Stop Dose Admin Albuterol Sulfate 1 puff 04/21/18 18:07 Ventolin Hfa Inhaler - IH Q8H PRN SHORTNESS OF BREATH Aspirin 81 mg 04/22/18 10:00 04/28/18 09:33 Asa - PO 81 mg DAILY [facility] Administration Atorvastatin Calcium 80 mg 04/21/18 22:00 04/27/18 22:09 Lipitor - PO 80 mg HS [facility] Administration Bacitracin 1 applic 04/25/18 15:30 04/28/18 09:35 Bacitracin - TP 1 applic DAILY [facility] Administration Calcium Acetate 1,334 mg 04/22/18 08:00 04/28/18 07:35 Phoslo - PO 1,334 mg TIDCM [facility] Administration Cholecalciferol 2,000 unit 04/22/18 10:00 04/28/18 09:33 Vitamin D3 - PO 2,000 unit DAILY [facility] Administration Clopidogrel Bisulfate 75 mg 04/22/18 10:00 04/28/18 09:33 Plavix - PO 75 mg DAILY [facility] Administration Docusate Sodium 300 mg 04/21/18 17:50 Colace - PO HS PRN CONSTIPATION Heparin Sodium (Porcine) 5,000 unit 04/23/18 14:00 04/28/18 06:25 Heparin - SQ 5,000 unit TID [facility] Administration Insulin Aspart 1 vial 04/24/18 07:00 04/28/18 11:36 Novolog Vial Sliding Scale - SQ 4 units ACHS [facility] Administration Protocol Insulin Detemir 5 units 04/24/18 22:00 04/27/18 22:12 Levemir Vial SQ 5 units HS [facility] Administration Lactobacillus Acidophilus 1 tab 04/22/18 10:00 04/28/18 09:34 Bacid - PO 1 tab DAILY [facility] Administration Metoprolol Tartrate 50 mg 04/21/18 22:00 04/28/18 09:33 Lopressor - PO 50 mg BID [facility] Administration Pantoprazole Sodium 20 mg 04/22/18 10:00 04/28/18 09:34 Protonix - PO 20 mg DAILY [facility] Administration Polyethylene Glycol 17 gm 04/22/18 10:00 04/28/18 09:33 Miralax (For Daily Use) - PO 17 grams DAILY [facility] Administration Pregabalin 100 mg 04/22/18 10:00 04/28/18 09:34 Lyrica - PO 100 mg DAILY [facility] Administration Sitagliptin Phosphate 25 mg 04/22/18 07:00 04/28/18 06:25 Januvia - PO 25 mg DAILY@0700 [facility] Administration Triamcinolone Acetonide 1 applic 04/24/18 18:45 04/28/18 09:35 Aristocort 0.1% Ointment - TP 1 applic DAILY [facility] Administration ASSESSMENT/PLAN: Patient is a 57 year old male with a significant past medical history of chronic RLE cellulitis, ESRD () via left upper arm fistula, HTN, COPD, 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 ID: Bacteremia Positive blood cultures from dialysis (cocci in pairs and chains-drawn 04/17/18) Has been afebrile, blood cultures drawn here are negative. wound culture with +VRE. Per ID notes, patient has fungemia in the sample at HD from the fistula and has been started on candicas until final results. On ceftriaxone and capsofungin. Echo reviewed. Will need eye exam on d/c. Integumentary Skin lesions, bilateral upper arms. on triamcinolone acetonide with improvement of rash. Renal: ESRD on HD: followed by nephrology and is getting HD. Card: Hypertension: controlled is on Metoprolol Diabetes: On novolog ss, controlled. Pulm: COPD, stable has no complaints at this time. fen tolerating po monitor electrolytes low sodium/diabetic diet prophy heparin Visit type - Emergency Visit Emergency Visit: Yes ED Registration Date: 04/21/18 Care time: The patient presented to the Emergency Department on the above date and was hospitalized for further evaluation of their emergent condition. - New Patient This patient is new to me today: No - Critical Care Critical Care patient: No - Discharge Referral Referred to [facility] Med P.C.: No
[2018-04-28 13:16] LABS: BASO % 2.9 % (0-2.0); EOS % 10.9 % (0-4.5); HEMATOCRIT 36.2 % (35.4-49); HEMOGLOBIN 12.3 GM/dL (11.7-16.9); LYMPH % 17.8 % (8-40); MCH 31.7 pg (25.7-33.7); MCHC 33.8 g/dl (32.0-35.9); MEAN CELL VOLUME 93.7 fl (80-96); MEAN PLT VOLUME 10.8 fl (7.5-11.1); MONO % 10.3 % (3.8-10.2); NEUT % 58.1 % (42.8-82.8); PLATELET COUNT 110 K/MM3 (134-434); RBC 3.87 M/mm3 (4.00-5.60); RDW 16.2 % (11.9-15.9); WHITE BLOOD COUNT 5.2 K/mm3 (4.0-10.0)
--- NOTE | 2018-04-28 17:47 | PN ---
Progress Note (short form) - Note Progress Note: Impression 1. ESRD 2. anemia 3. HTN 4. morbid obesity 5. CVA 6. hyperlipidemia 7. proteinuria - nephrotic 8. PVD 9. foot ulcer 10. bacteremia - also with budding yeast in bottled - from hd center - rhodotorulo mucilaginosa 11. left hilum density on CXR Current Medications Albuterol Sulfate (Ventolin Hfa Inhaler -) 1 puff IH Q8H PRN PRN Reason: SHORTNESS OF BREATH Aspirin (Asa -) 81 mg PO DAILY [facility] Last Admin: 04/28/18 09:33 Dose: 81 mg Atorvastatin Calcium (Lipitor -) 80 mg PO HS [facility] Last Admin: 04/27/18 22:09 Dose: 80 mg Bacitracin (Bacitracin -) 1 applic TP DAILY [facility] Last Admin: 04/28/18 09:35 Dose: 1 applic Calcium Acetate (Phoslo -) 1,334 mg PO TIDCM [facility] Last Admin: 04/28/18 17:05 Dose: 1,334 mg Cholecalciferol (Vitamin D3 -) 2,000 unit PO DAILY [facility] Last Admin: 04/28/18 09:33 Dose: 2,000 unit Clopidogrel Bisulfate (Plavix -) 75 mg PO DAILY [facility] Last Admin: 04/28/18 09:33 Dose: 75 mg Docusate Sodium (Colace -) 300 mg PO HS PRN PRN Reason: CONSTIPATION Heparin Sodium (Porcine) (Heparin -) 5,000 unit SQ TID [facility] Last Admin: 04/28/18 15:21 Dose: 5,000 unit Insulin Aspart (Novolog Vial Sliding Scale -) 1 vial SQ [facility]; Protocol Last Admin: 04/28/18 16:50 Dose: Not Given Insulin Detemir (Levemir Vial) 5 units SQ HS [facility] Last Admin: 04/27/18 22:12 Dose: 5 units Lactobacillus Acidophilus (Bacid -) 1 tab PO DAILY [facility] Last Admin: 04/28/18 09:34 Dose: 1 tab Metoprolol Tartrate (Lopressor -) 50 mg PO BID [facility] Last Admin: 04/28/18 09:33 Dose: 50 mg Pantoprazole Sodium (Protonix -) 20 mg PO DAILY [facility] Last Admin: 04/28/18 09:34 Dose: 20 mg Polyethylene Glycol (Miralax (For Daily Use) -) 17 gm PO DAILY [facility] Last Admin: 04/28/18 09:33 Dose: 17 grams Pregabalin (Lyrica -) 100 mg PO DAILY [facility] Last Admin: 04/28/18 09:34 Dose: 100 mg Sitagliptin Phosphate (Januvia -) 25 mg PO DAILY@0700 [facility] Last Admin: 04/28/18 06:25 Dose: 25 mg Triamcinolone Acetonide (Aristocort 0.1% Ointment -) 1 applic TP DAILY [facility] Last Admin: 04/28/18 09:35 Dose: 1 applic Last Vital Signs Temp Pulse Resp BP Pulse Ox 97.8 F 59 L 20 118/54 L 97 04/28/18 14:54 04/28/18 14:54 04/28/18 14:54 04/28/18 14:54 04/28/18 09:00 CBC, BMP 04/28/18 07:00 04/28/18 07:00 IMP- ESRD doing well Plan - HD today - ID follow up for cultures form HD - cont to follow hosp cultures - cont wound care - cont nepro - renal diet - will follow l
[2018-04-28] MEDS: ATORVASTATIN CA 80 MG TABLET (FP) PO SCH (21:40)
[2018-04-28] MEDS: INSULIN (LEVEMIR) 100 UNITS/ML UNITS SQ SCH (21:40)
[2018-04-29] MEDS: INSULIN SLIDING SCALE (NOVOLOG) 1 VIAL SQ SCH ×4 (06:38→21:57)
[2018-04-29] MEDS: HEPARIN NA (PORCINE) 5,000 UNITS/ML 1ML VIAL SQ SCH ×3 (06:38→21:57)
[2018-04-29] MEDS: sitaGLIPtin PHOSPHATE 25 MG TABLET (FP) PO SCH (06:39)
[2018-04-29] MEDS ORDERED: INSULIN (NOVOLOG) ASPART 100 UNITS/ML 10ML VIAL ONE ×3 (06:50→19:53)
[2018-04-29] MEDS: CALCIUM ACETATE 667 MG CAPSULE (FP) PO SCH ×3 (07:59→17:25)
[2018-04-29] MEDS: CLOPIDOGREL BISULFATE 75 MG TABLET (FP) PO SCH (10:12)
[2018-04-29] MEDS: TRIAMCINOLONE ACET 0.1% OINT 15 GM TUBE TP SCH (10:12)
[2018-04-29] MEDS: POLYETHYLENE GLYCOL 3350 119 GM BTL PO SCH (10:12)
[2018-04-29] MEDS: LACTOBACILLUS ACIDOPHILUS 1 TABLET PO SCH (10:12)
[2018-04-29] MEDS: BACITRACIN 15 GM TUBE TOPICAL OINTMENT TP SCH (10:12)
[2018-04-29] MEDS: PANTOPRAZOLE 20 MG TABLET (FP) PO SCH (10:12)
[2018-04-29] MEDS: METOPROLOL TARTRATE 50 MG TABLET (FP) PO SCH ×2 (10:13→21:57)
[2018-04-29] MEDS: PREGABALIN 100 MG CAPSULE PO SCH (10:13)
[2018-04-29] MEDS: ASPIRIN 81 MG CHEWABLE TABLETS PO SCH (10:13)
[2018-04-29] MEDS: CHOLECALCIFEROL (VITAMIN D3) 1,000 UNIT TABLET (FP) PO SCH (10:13)
--- NOTE | 2018-04-29 13:17 | PN ---
Physical Exam: SUBJECTIVE: Patient seen and examined at the bedside. no complaints, resting. feels well. OBJECTIVE: Vital Signs Period Temp Pulse Resp BP Sys/Leon Pulse Ox Last 24 Hr 97.3 F-97.9 F 53-61 19-22 110-141/54-78 98 GENERAL: The patient is awake, alert, and fully oriented, in no acute distress. HEAD: Normal with no signs of trauma. EYES: PERRL, extraocular movements intact, sclera anicteric, conjunctiva clear. No ptosis. ENT: Ears normal, nares patent, oropharynx clear without exudates, moist mucous membranes. NECK: Trachea midline, full range of motion, supple. LUNGS: Breath sounds equal, clear to auscultation bilaterally HEART: Regular rate and rhythm ABDOMEN: Soft, nontender, nondistended, normoactive bowel sounds, no guarding, no rebound, no hepatosplenomegaly, no masses. EXTREMITIES: lower extremity non pitting edema. 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 NEUROLOGICAL:Normal speech, steady gait with RW Laboratory Results - last 24 hr 04/28/18 04/28/18 04/28/18 07:00 16:30 21:39 WBC 5.2 RBC 3.87 L Hgb 12.3 Hct 36.2 MCV 93.7 MCH 31.7 MCHC 33.8 RDW 16.2 H Plt Count 110 L MPV 10.8 Absolute Neuts (auto) 3.0 Neutrophils % 58.1 Lymphocytes % 17.8 D Monocytes % 10.3 H Eosinophils % 10.9 H Basophils % 2.9 H Nucleated RBC % 0 POC Glucometer 119 283 04/29/18 04/29/18 06:34 11:04 WBC RBC Hgb Hct MCV MCH MCHC RDW Plt Count MPV Absolute Neuts (auto) Neutrophils % Lymphocytes % Monocytes % Eosinophils % Basophils % Nucleated RBC % POC Glucometer 134 199 Active Medications Generic Name Dose Route Start Last Admin Trade Name Freq PRN Reason Stop Dose Admin Albuterol Sulfate 1 puff 04/21/18 18:07 Ventolin Hfa Inhaler - IH Q8H PRN SHORTNESS OF BREATH Aspirin 81 mg 04/22/18 10:00 04/29/18 10:13 Asa - PO 81 mg DAILY [facility] Administration Atorvastatin Calcium 80 mg 04/21/18 22:00 04/28/18 21:40 Lipitor - PO 80 mg HS [facility] Administration Bacitracin 1 applic 04/25/18 15:30 04/29/18 10:12 Bacitracin - TP 1 applic DAILY [facility] Administration Calcium Acetate 1,334 mg 04/22/18 08:00 04/29/18 11:16 Phoslo - PO 1,334 mg TIDCM [facility] Administration Cholecalciferol 2,000 unit 04/22/18 10:00 04/29/18 10:13 Vitamin D3 - PO 2,000 unit DAILY [facility] Administration Clopidogrel Bisulfate 75 mg 04/22/18 10:00 04/29/18 10:12 Plavix - PO 75 mg DAILY [facility] Administration Docusate Sodium 300 mg 04/21/18 17:50 Colace - PO HS PRN CONSTIPATION Heparin Sodium (Porcine) 5,000 unit 04/23/18 14:00 04/29/18 06:38 Heparin - SQ 5,000 unit TID [facility] Administration Insulin Aspart 1 vial 04/24/18 07:00 04/29/18 11:16 Novolog Vial Sliding Scale - SQ 2 units ACHS [facility] Administration Protocol Insulin Detemir 5 units 04/24/18 22:00 04/28/18 21:40 Levemir Vial SQ 5 units HS [facility] Administration Lactobacillus Acidophilus 1 tab 04/22/18 10:00 04/29/18 10:12 Bacid - PO 1 tab DAILY [facility] Administration Metoprolol Tartrate 50 mg 04/21/18 22:00 04/29/18 10:13 Lopressor - PO 50 mg BID [facility] Administration Pantoprazole Sodium 20 mg 04/22/18 10:00 04/29/18 10:12 Protonix - PO 20 mg DAILY [facility] Administration Polyethylene Glycol 17 gm 04/22/18 10:00 04/29/18 10:12 Miralax (For Daily Use) - PO 17 grams DAILY [facility] Administration Pregabalin 100 mg 04/22/18 10:00 04/29/18 10:13 Lyrica - PO 100 mg DAILY [facility] Administration Sitagliptin Phosphate 25 mg 04/22/18 07:00 04/29/18 06:39 Januvia - PO 25 mg DAILY@0700 [facility] Administration Triamcinolone Acetonide 1 applic 04/24/18 18:45 04/29/18 10:12 Aristocort 0.1% Ointment - TP 1 applic DAILY [facility] Administration ASSESSMENT/PLAN: Patient is a 57 year old male with a significant past medical history of chronic RLE cellulitis, ESRD (//) via left upper arm fistula, HTN, COPD, 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 ID: Bacteremia Positive blood cultures from dialysis (cocci in pairs and chains-drawn 04/17/18) Has been afebrile, blood cultures drawn here are negative. wound culture with +VRE. Per ID notes, patient has fungemia in the sample at HD from the fistula and has been started on candicas until final results. All antibiotics discontinued. Echo reviewed. Will need eye exam on d/c. Integumentary Skin lesions, bilateral upper arms. on triamcinolone acetonide with improvement of rash. Renal: ESRD on HD: followed by nephrology and is getting HD. Card: Hypertension: controlled is on Metoprolol Diabetes: On novolog ss, controlled. Pulm: COPD, stable has no complaints at this time. fen tolerating po monitor electrolytes low sodium/diabetic diet Visit type - Emergency Visit Emergency Visit: Yes ED Registration Date: 04/21/18 Care time: The patient presented to the Emergency Department on the above date and was hospitalized for further evaluation of their emergent condition. - New Patient This patient is new to me today: No - Critical Care Critical Care patient: No - Discharge Referral Referred to [facility] Med P.C.: No
[2018-04-29] MEDS: INSULIN (LEVEMIR) 100 UNITS/ML UNITS SQ SCH (21:57)
[2018-04-29] MEDS: ATORVASTATIN CA 80 MG TABLET (FP) PO SCH (21:57)
--- NOTE | 2018-04-29 22:59 | PN ---
Progress Note (short form) - Note Progress Note: Impression 1. ESRD 2. anemia 3. HTN 4. morbid obesity 5. CVA 6. hyperlipidemia 7. proteinuria - nephrotic 8. PVD 9. foot ulcer 10. bacteremia - also with budding yeast in bottled - from hd center - rhodotorulo mucilaginosa 11. left hilum density on CXR Current Medications Albuterol Sulfate (Ventolin Hfa Inhaler -) 1 puff I[facility] Q8H PRN PRN Reason: SHORTNESS OF BREATH Aspirin (Asa -) 81 mg PO DAILY [facility] Last Admin: 04/29/18 10:13 Dose: 81 mg Atorvastatin Calcium (Lipitor -) 80 mg PO HS [facility] Last Admin: 04/29/18 21:57 Dose: 80 mg Bacitracin (Bacitracin -) 1 applic TP DAILY [facility] Last Admin: 04/29/18 10:12 Dose: 1 applic Calcium Acetate (Phoslo -) 1,334 mg PO TIDCM [facility] Last Admin: 04/29/18 17:25 Dose: 1,334 mg Cholecalciferol (Vitamin D3 -) 2,000 unit PO DAILY [facility] Last Admin: 04/29/18 10:13 Dose: 2,000 unit Clopidogrel Bisulfate (Plavix -) 75 mg PO DAILY [facility] Last Admin: 04/29/18 10:12 Dose: 75 mg Docusate Sodium (Colace -) 300 mg PO HS PRN PRN Reason: CONSTIPATION Heparin Sodium (Porcine) (Heparin -) 5,000 unit SQ TID [facility] Last Admin: 04/29/18 21:57 Dose: 5,000 unit Sodium Chloride (Normal Saline -) 250 mls @ 3,000 mls/hr IV PRN PRN PRN Reason: Hypotension during Dialysis Stop: 04/30/18 22:56 Insulin Aspart (Novolog Vial Sliding Scale -) 1 vial SQ [facility]; Protocol Last Admin: 04/29/18 21:57 Dose: 4 units Insulin Detemir (Levemir Vial) 5 units SQ HS [facility] Last Admin: 04/29/18 21:57 Dose: 5 units Lactobacillus Acidophilus (Bacid -) 1 tab PO DAILY [facility] Last Admin: 04/29/18 10:12 Dose: 1 tab Metoprolol Tartrate (Lopressor -) 50 mg PO BID [facility] Last Admin: 04/29/18 21:57 Dose: 50 mg Pantoprazole Sodium (Protonix -) 20 mg PO DAILY [facility] Last Admin: 04/29/18 10:12 Dose: 20 mg Polyethylene Glycol (Miralax (For Daily Use) -) 17 gm PO DAILY [facility] Last Admin: 04/29/18 10:12 Dose: 17 grams Pregabalin (Lyrica -) 100 mg PO DAILY [facility] Last Admin: 04/29/18 10:13 Dose: 100 mg Sitagliptin Phosphate (Januvia -) 25 mg PO DAILY@0700 [facility] Last Admin: 04/29/18 06:39 Dose: 25 mg Triamcinolone Acetonide (Aristocort 0.1% Ointment -) 1 applic TP DAILY [facility] Last Admin: 04/29/18 10:12 Dose: 1 applic Last Vital Signs Temp Pulse Resp BP Pulse Ox 97.8 F 60 18 145/75 99 04/29/18 22:00 04/29/18 22:00 04/29/18 22:00 04/29/18 22:00 04/29/18 21:00 CBC, BMP 04/28/18 07:00 04/28/18 07:00 IMP- ESRD doing well Plan - HD today - ID follow up for cultures form HD - cont to follow hosp cultures - cont wound care - cont nepro - renal diet - will follow l
[2018-04-30] MEDS: sitaGLIPtin PHOSPHATE 25 MG TABLET (FP) PO SCH (06:51)
[2018-04-30] MEDS: HEPARIN NA (PORCINE) 5,000 UNITS/ML 1ML VIAL SQ SCH ×2 (06:51→15:31)
[2018-04-30] MEDS: INSULIN SLIDING SCALE (NOVOLOG) 1 VIAL SQ SCH ×3 (06:52→17:34)
[2018-04-30 08:48] VITALS: TEMP 97.8
[2018-04-30] MEDS: CALCIUM ACETATE 667 MG CAPSULE (FP) PO SCH ×3 (09:43→17:34)
[2018-04-30] MEDS: METOPROLOL TARTRATE 50 MG TABLET (FP) PO SCH ×2 (09:44→10:00)
[2018-04-30] MEDS: PANTOPRAZOLE 20 MG TABLET (FP) PO SCH (09:44)
[2018-04-30] MEDS: ASPIRIN 81 MG CHEWABLE TABLETS PO SCH (09:44)
[2018-04-30] MEDS: LACTOBACILLUS ACIDOPHILUS 1 TABLET PO SCH (09:44)
[2018-04-30] MEDS: CLOPIDOGREL BISULFATE 75 MG TABLET (FP) PO SCH (09:44)
[2018-04-30] MEDS: CHOLECALCIFEROL (VITAMIN D3) 1,000 UNIT TABLET (FP) PO SCH (09:45)
[2018-04-30] MEDS: PREGABALIN 100 MG CAPSULE PO SCH (09:45)
[2018-04-30] MEDS: POLYETHYLENE GLYCOL 3350 119 GM BTL PO SCH (10:11)
[2018-04-30] MEDS: TRIAMCINOLONE ACET 0.1% OINT 15 GM TUBE TP SCH (10:12)
[2018-04-30] MEDS: BACITRACIN 15 GM TUBE TOPICAL OINTMENT TP SCH (10:13)
[2018-04-30 11:25] LABS: BASO % 1.8 % (0-2.0); EOS % 12.7 % (0-4.5); HEMATOCRIT 34.8 % (35.4-49); HEMOGLOBIN 11.6 GM/dL (11.7-16.9); LYMPH % 15.6 % (8-40); MCH 31.2 pg (25.7-33.7); MCHC 33.3 g/dl (32.0-35.9); MEAN CELL VOLUME 93.8 fl (80-96); MEAN PLT VOLUME 10.8 fl (7.5-11.1); MONO % 5.4 % (3.8-10.2); NEUT % 64.5 % (42.8-82.8); PLATELET COUNT 129 K/MM3 (134-434); RBC 3.71 M/mm3 (4.00-5.60); RDW 15.7 % (11.9-15.9); WHITE BLOOD COUNT 5.3 K/mm3 (4.0-10.0)
[2018-04-30 12:02] LABS: ALBUMIN 3.2 g/dl (3.4-5.0); ALK PHOS 52 U/L (45-117); ANION GAP 12 MMOL/L (8-16); BILIRUBIN,TOTAL 0.4 mg/dL (0.2-1); BLOOD UREA NITROGEN 92 mg/dL (7-18); CALCIUM 8.6 mg/dL (8.5-10.1); CHLORIDE 95 mmol/L (98-107); CO2 26 mmol/L (21-32); GLUCOSE,RANDOM 256 mg/dL (74-106); MAGNESIUM 3.2 mg/dL (1.8-2.4); POTASSIUM 4.5 mmol/L (3.5-5.1); SGOT/AST 31 U/L (15-37); SGPT/ALT 32 U/L (13-61); SODIUM 134 mmol/L (136-145); TOT PROT 6.7 g/dl (6.4-8.2)
[2018-04-30 12:04] LABS: CREATININE 9.9 mg/dL (0.55-1.3)
[2018-04-30] MEDS ORDERED: SODIUM CHLORIDE 250 ML IV PRN ×2 (14:15→14:48)
--- NOTE | 2018-04-30 14:48 | PN ---
Progress Note, Physician History of Present Illness: Pt seen and examined at bedside. He is awake and alert. He is tolerating HD. - Current Medication List Current Medications: Active Medications Albuterol Sulfate (Ventolin Hfa Inhaler -) 1 puff IH Q8H PRN PRN Reason: SHORTNESS OF BREATH Aspirin (Asa -) 81 mg PO DAILY [facility] Last Admin: 04/30/18 09:44 Dose: 81 mg Atorvastatin Calcium (Lipitor -) 80 mg PO HS [facility] Last Admin: 04/29/18 21:57 Dose: 80 mg Bacitracin (Bacitracin -) 1 applic TP DAILY [facility] Last Admin: 04/30/18 10:13 Dose: 1 applic Calcium Acetate (Phoslo -) 1,334 mg PO TIDCM [facility] Last Admin: 04/30/18 14:05 Dose: Not Given Cholecalciferol (Vitamin D3 -) 2,000 unit PO DAILY [facility] Last Admin: 04/30/18 09:45 Dose: 2,000 unit Clopidogrel Bisulfate (Plavix -) 75 mg PO DAILY [facility] Last Admin: 04/30/18 09:44 Dose: 75 mg Docusate Sodium (Colace -) 300 mg PO HS PRN PRN Reason: CONSTIPATION Heparin Sodium (Porcine) (Heparin -) 5,000 unit SQ TID [facility] Last Admin: 04/30/18 06:51 Dose: 5,000 unit Insulin Aspart (Novolog Vial Sliding Scale -) 1 vial SQ [facility]; Protocol Last Admin: 04/30/18 14:05 Dose: Not Given Insulin Detemir (Levemir Vial) 5 units SQ HS [facility] Last Admin: 04/29/18 21:57 Dose: 5 units Lactobacillus Acidophilus (Bacid -) 1 tab PO DAILY [facility] Last Admin: 04/30/18 09:44 Dose: 1 tab Metoprolol Tartrate (Lopressor -) 50 mg PO BID [facility] Last Admin: 04/30/18 10:00 Dose: Not Given Pantoprazole Sodium (Protonix -) 20 mg PO DAILY [facility] Last Admin: 04/30/18 09:44 Dose: 20 mg Polyethylene Glycol (Miralax (For Daily Use) -) 17 gm PO DAILY [facility] Last Admin: 04/30/18 10:11 Dose: Not Given Pregabalin (Lyrica -) 100 mg PO DAILY [facility] Last Admin: 04/30/18 09:45 Dose: 100 mg Sitagliptin Phosphate (Januvia -) 25 mg PO DAILY@0700 [facility] Last Admin: 04/30/18 06:51 Dose: 25 mg Triamcinolone Acetonide (Aristocort 0.1% Ointment -) 1 applic TP DAILY [facility] Last Admin: 04/30/18 10:12 Dose: 1 applic - Objective Vital Signs: Vital Signs Temperature 97.8 F 04/30/18 08:47 Pulse Rate 60 04/30/18 13:45 Respiratory Rate 18 04/30/18 13:45 Blood Pressure 112/53 L 04/30/18 13:45 O2 Sat by Pulse Oximetry (%) 99 04/30/18 09:00 Constitutional: Yes: Calm Eyes: Yes: Conjunctiva Clear Cardiovascular: Yes: S1, S2 Respiratory: Yes: CTA Bilaterally Gastrointestinal: Yes: Normal Bowel Sounds, Soft Genitourinary: Yes: WNL Musculoskeletal: Yes: WNL Edema: Yes Edema: LLE: 1+, RLE: 1+ Integumentary: Yes: Venous Stasis Changes Neurological: Yes: Oriented Psychiatric: Yes: Oriented Labs: CBC, BMP 04/30/18 10:50 04/30/18 10:50 Problem List - Problems (1) Cellulitis Code(s): L03.90 - CELLULITIS, UNSPECIFIED (2) Diabetes mellitus Code(s): E11.9 - TYPE 2 DIABETES MELLITUS WITHOUT COMPLICATIONS (3) ESRD (end stage renal disease) Code(s): N18.6 - END STAGE RENAL DISEASE Assessment/Plan Current Medications Generic Name Dose Route Start Last Admin Trade Name Freq PRN Reason Stop Dose Admin Albuterol Sulfate 1 puff 04/21/18 18:07 Ventolin Hfa Inhaler - IH Q8H PRN SHORTNESS OF BREATH Aspirin 81 mg 04/22/18 10:00 04/30/18 09:44 Asa - PO 81 mg DAILY [facility] Administration Atorvastatin Calcium 80 mg 04/21/18 22:00 04/29/18 21:57 Lipitor - PO 80 mg HS [facility] Administration Bacitracin 1 applic 04/25/18 15:30 04/30/18 10:13 Bacitracin - TP 1 applic DAILY [facility] Administration Calcium Acetate 1,334 mg 04/22/18 08:00 04/30/18 14:05 Phoslo - PO Not Given TIDCM [facility] Cholecalciferol 2,000 unit 04/22/18 10:00 04/30/18 09:45 Vitamin D3 - PO 2,000 unit DAILY [facility] Administration Clopidogrel Bisulfate 75 mg 04/22/18 10:00 04/30/18 09:44 Plavix - PO 75 mg DAILY [facility] Administration Docusate Sodium 300 mg 04/21/18 17:50 Colace - PO HS PRN CONSTIPATION Heparin Sodium (Porcine) 5,000 unit 04/23/18 14:00 04/30/18 06:51 Heparin - SQ 5,000 unit TID [facility] Administration Insulin Aspart 1 vial 04/24/18 07:00 04/30/18 14:05 Novolog Vial Sliding Scale - SQ Not Given ACHS [facility] Protocol Insulin Detemir 5 units 04/24/18 22:00 04/29/18 21:57 Levemir Vial SQ 5 units HS [facility] Administration Lactobacillus Acidophilus 1 tab 04/22/18 10:00 04/30/18 09:44 Bacid - PO 1 tab DAILY [facility] Administration Metoprolol Tartrate 50 mg 04/21/18 22:00 04/30/18 10:00 Lopressor - PO Not Given BID [facility] Pantoprazole Sodium 20 mg 04/22/18 10:00 04/30/18 09:44 Protonix - PO 20 mg DAILY [facility] Administration Polyethylene Glycol 17 gm 04/22/18 10:00 04/30/18 10:11 Miralax (For Daily Use) - PO Not Given DAILY [facility] Pregabalin 100 mg 04/22/18 10:00 04/30/18 09:45 Lyrica - PO 100 mg DAILY [facility] Administration Sitagliptin Phosphate 25 mg 04/22/18 07:00 04/30/18 06:51 Januvia - PO 25 mg DAILY@0700 [facility] Administration Triamcinolone Acetonide 1 applic 04/24/18 18:45 04/30/18 10:12 Aristocort 0.1% Ointment - TP 1 applic DAILY [facility] Administration Microbiology 04/21/18 16:21 Blood - Peripheral Venous Blood Culture - Final NO GROWTH AFTER 5 DAYS INCUBATION 04/21/18 16:21 Blood - Peripheral Venous Blood Culture - Final NO GROWTH AFTER 5 DAYS INCUBATION Impression 1. ESRD 2. anemia 3. HTN 4. morbid obesity 5. CVA 6. hyperlipidemia 7. proteinuria - nephrotic 8. PVD 9. foot ulcer 10. bacteremia - also with budding yeast in bottled - from hd center - rhodotorulo mucilaginosa 11. left hilum density on CXR Plan - pt tolerating HD - has HD set up as outpt tomorrow - off of abx now - cont to follow hosp cultures - cont wound care - cont nepro - renal diet - will follow l
[2018-04-30 15:02] VITALS: BP 125/73; PULSE 58
--- NOTE | 2018-04-30 15:17 | DS ---
Physical Exam: SUBJECTIVE: Patient seen and examined at the bedside. seen in dialysis. tolerated dialysis. BP stable. To go home. OBJECTIVE: discharge home Vital Signs Period Temp Pulse Resp BP Sys/Leon Pulse Ox Last 24 Hr 97.6 F-98 F 54-70 18-20 90-155/48-85 99-99 PHYSICAL EXAM GENERAL: The patient is awake, alert, and fully oriented, in no acute distress. HEAD: Normal with no signs of trauma. EYES: PERRL, extraocular movements intact, sclera anicteric, conjunctiva clear. No ptosis. ENT: Ears normal, nares patent, oropharynx clear without exudates, moist mucous membranes. NECK: Trachea midline, full range of motion, supple. LUNGS: Breath sounds equal, clear to auscultation bilaterally HEART: Regular rate and rhythm ABDOMEN: Soft, nontender, nondistended, normoactive bowel sounds, no guarding, no rebound, no hepatosplenomegaly, no masses. EXTREMITIES: lower extremity non pitting edema. 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 NEUROLOGICAL:Normal speech, steady gait with RW LABS Laboratory Results - last 24 hr 04/29/18 04/29/18 04/30/18 16:19 21:55 06:50 WBC RBC Hgb Hct MCV MCH MCHC RDW Plt Count MPV Absolute Neuts (auto) Neutrophils % Lymphocytes % Monocytes % Eosinophils % Basophils % Nucleated RBC % Sodium Potassium Chloride Carbon Dioxide Anion Gap BUN Creatinine Creat Clearance w eGFR POC Glucometer 140 261 100 Random Glucose Calcium Magnesium Total Bilirubin AST ALT Alkaline Phosphatase Total Protein Albumin 04/30/18 04/30/18 10:50 10:50 WBC 5.3 RBC 3.71 L Hgb 11.6 L Hct 34.8 L MCV 93.8 MCH 31.2 MCHC 33.3 RDW 15.7 Plt Count 129 L MPV 10.8 Absolute Neuts (auto) 3.4 Neutrophils % 64.5 Lymphocytes % 15.6 Monocytes % 5.4 Eosinophils % 12.7 H Basophils % 1.8 Nucleated RBC % 0 Sodium 134 L Potassium 4.5 Chloride 95 L Carbon Dioxide 26 Anion Gap 12 BUN 92 H Creatinine 9.9 H* Creat Clearance w eGFR 5.47 POC Glucometer Random Glucose 256 H Calcium 8.6 Magnesium 3.2 H Total Bilirubin 0.4 AST 31 ALT 32 Alkaline Phosphatase 52 Total Protein 6.7 Albumin 3.2 L HOSPITAL COURSE: Patient is a 57 year old male with a significant past medical history of chronic RLE cellulitis, ESRD (//) via left upper arm fistula, HTN, COPD, 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 Patient has fungemia in the sample at HD from the fistula and was started on candicas and ceftriaxone. Since being hospitalized at [facility], his blood cultures have been negative to date and he remains asymptomatic. He has been afebrile. He was evaluated by ID and has been cleared for discharge home. All antibiotics have been discontinued. Patient has been advised to get a follow up eye exam with is opthomologist. Problem list: ID: Positive blood cultures from dialysis (cocci in pairs and chains-drawn 04/17/18) . Since admission he has been afebrile, blood cultures drawn here are negative. wound culture with +VRE. Per ID notes, patient has fungemia in the sample at HD from the fistula and has been started on candicas until final results. All antibiotics discontinued. Echo reviewed. Will need eye exam on d/c. Integumentary Skin lesions, bilateral upper arms. on triamcinolone acetonide with improvement of rash. Follow up with dermatology outpatient. Renal: ESRD on HD: followed by nephrology and is getting HD. He is on a schedule and next dialysis is scheduled for tomorrow. Card: Hypertension: controlled is on Metoprolol Diabetes: On novolog ss, controlled. Pulm: COPD, stable has no complaints at this time. Date of Admission:04/21/18 Date of Discharge: 04/30/18 full code. Minutes to complete discharge: 60 Discharge Summary Reason For Visit: BACTEREMIA Current Active Problems Bacteremia (Acute) Diabetic foot ulcer (Acute) Condition: Improved - Instructions Diet, Activity, Other Instructions: Mr. Guerrero: You were admitted on 04/21/2018 after it was reported that you had positive blood cultures at the dialysis center. We have re drawn your blood cultures and they have remain negative. We have stopped the antibiotics. As discussed you will need a follow up eye exam to rule out r/o endopthalmitis with your private opthomologist. Your echocardiogram did not show any concerns for valve problems. Continue the triamcinolone acetonide cream for your arm rash. Please return to the ER if you experience a fever of 101 or greater or have chills. thank you for allowing us to care for you. Referrals: Hai Davis [Primary Care Provider] - Brigitte Win MD [Staff Physician] - Disposition: HOME - Home Medications Comprehensive Discharge Medication List: Ambulatory Orders Omeprazole [Prilosec (RX)] 20 mg PO DAILY 08/13/14 Atorvastatin Ca [Lipitor] 80 mg PO HS 05/24/16 Albuterol Sulfate [Proair Respiclick] 90 mcg IH DAILY 11/13/16 Cholecalciferol (Vitamin D3) [Vitamin D3] 2,000 unit PO DAILY 11/13/16 Aspirin [ASA -] 81 mg PO DAILY #30 tab.chew 11/15/16 Pregabalin [Lyrica -] 100 mg PO DAILY [facility] 50 mg 04/19/17 Calcium Acetate [Phoslo -] 1,334 mg PO TIDCM capsule 04/27/17 Polyethylene Glycol 3350 [Miralax 119 gm Btl -] 17 gm PO DAILY bottle 04/27/17 Torsemide [Demadex -] 80 mg PO MOWEFR tablet 07/10/17 Docusate Sodium [Colace -] 300 mg PO HS PRN 08/08/17 Sitagliptin Phosphate [Januvia -] 25 mg PO DAILY@0700 #30 tab 08/15/17 L. Acidophilus/L.bulgaricus [Lactobacillus Tablet] 1 each PO DAILY #30 tablet Metoprolol Tartrate [Lopressor -] 50 mg PO BID #30 tablet 01/01/18 Clopidogrel Bisulfate [Plavix] 1 tab PO DAILY 04/03/18 Bacitracin - [Bacitracin Topical Ointment -] 1 applic TP DAILY #1 tube 04/30/18 Lactobacillus Acidophilus [Bacid -] 1 tab PO DAILY #0 tab 04/30/18 Triamcinolone 0.1% Ointment [Aristocort 0.1% Ointment -] 1 applic TP DAILY #1 applic 04/30/18 This patient is new to me today: Yes Date on this admission: 04/30/18 Emergency Visit: No Critical Care patient: No - Discharge Referral Referred to [facility] Med [facility] No
[2018-04-30] MEDS ORDERED: INSULIN (NOVOLOG) ASPART 100 UNITS/ML 10ML VIAL ONE (17:31)
== END 2018-04-30 18:12 | disposition home or self-care (01) | DRG 867 ==
LOC: JER 13:40 → JERBED 17:51 → J7W 21:46
PROVIDERS: ADMIT Internal Medicine; ATTEND Nurse Practitioner Family
PROC: 5A1D70Z Performance of Urinary Filtration, Intermittent, Less than 6 Hours Per Day (ICD-10-PCS; principal; 2018-04-24)
PROC: 5A1D70Z Performance of Urinary Filtration, Intermittent, Less than 6 Hours Per Day (ICD-10-PCS; 2018-04-25)
PROC: 5A1D70Z Performance of Urinary Filtration, Intermittent, Less than 6 Hours Per Day (ICD-10-PCS; 2018-04-27)
PROC: 5A1D70Z Performance of Urinary Filtration, Intermittent, Less than 6 Hours Per Day (ICD-10-PCS; 2018-04-30)
DX: B49 Unspecified mycosis (principal); N18.6 End stage renal disease; R78.81 Bacteremia; Z68.41 Body mass index [BMI] 40.0-44.9, adult; I69.354 Hemiplegia and hemiparesis following cerebral infarction affecting left non-dominant side; L97.518 Non-pressure chronic ulcer of other part of right foot with other specified severity; M86.60 Other chronic osteomyelitis, unspecified site; I12.0 Hypertensive chronic kidney disease with stage 5 chronic kidney disease or end stage renal disease; E11.22 Type 2 diabetes mellitus with diabetic chronic kidney disease; L03.031 Cellulitis of right toe; K21.9 Gastro-esophageal reflux disease without esophagitis; J44.9 Chronic obstructive pulmonary disease, unspecified; E11.621 Type 2 diabetes mellitus with foot ulcer; E78.5 Hyperlipidemia, unspecified; E11.21 Type 2 diabetes mellitus with diabetic nephropathy; E11.51 Type 2 diabetes mellitus with diabetic peripheral angiopathy without gangrene; E11.40 Type 2 diabetes mellitus with diabetic neuropathy, unspecified; R21 Rash and other nonspecific skin eruption; I25.10 Atherosclerotic heart disease of native coronary artery without angina pectoris; G47.30 Sleep apnea, unspecified; E66.01 Morbid (severe) obesity due to excess calories; D64.9 Anemia, unspecified; Z99.2 Dependence on renal dialysis
CPT/HCPCS: 36415; 80048; 80053; 82565; 82962; 83735; 84520; 85025; 85027; 85651; 86140; 86704; 86706; 86708; 86803; 87040; 87070; 87186; 87205; 87340; 93306-TC; 99284-25; G0480; J0637; J1644

== ENCOUNTER 2018-11-15 11:03 | Emergency (ER) | payer OTHER ==
--- NOTE | 2018-11-15 11:19 | PDOC ---
History of Present Illness <Mildred Schreiberica - Last Filed: 11/15/18 14:42> - History of Present Illness Initial Comments: 11/15/18 11:34 58 y/o M hx of COPD, Angina, ESRD, gastric bypass surgery, HTN, HLD, diabetes presents to the ED from dialysis with tachycardia. He was receiving dialysis this morning when it was noticed his heart rate wsa elevated. He denies any chest pain, SOB, cough, pain radiating to back / neck, diaphoresis. <Mamie Wong - Last Filed: 11/15/18 15:14> - General Chief Complaint: Tachycardia Stated Complaint: TACHYCARDIA Time Seen by Provider: 11/15/18 11:13 Past History <CandieMildred beckerica - Last Filed: 11/15/18 14:42> - Past Medical History Anemia: Yes Asthma: Yes Cancer: No Cardiac Disorders: Yes ([facility]) CVA: Yes (X 2) COPD: Yes CHF: Yes Dementia: No Diabetes: Yes Dialysis: Yes ([facility]) GI Disorders: No Disorders: No HTN: Yes Hypercholesterolemia: Yes Liver Disease: No Seizures: No Thyroid Disease: No - Surgical History Abdominal Surgery: Yes (gastric bypass 05/05/14) Appendectomy: No Cardiac Surgery: No Cholecystectomy: No Lung Surgery: No Neurologic Surgery: No Orthopedic Surgery: Yes - Immunization History Immunization Up to Date: Yes - Suicide/Smoking/Psychosocial Hx Smoking Status: No Smoking History: Never smoked Have you smoked in the past 12 months: No Number of Cigarettes Smoked Daily: 0 Cigars Per Day: 0 Hx Alcohol Use: No Drug/Substance Use Hx: No Substance Use Type: None Hx Substance Use Treatment: No <Mamie Wong - Last Filed: 11/15/18 15:14> - Past Medical History Allergies/Adverse Reactions: Allergies Allergy/AdvReac Type Severity Reaction Status Date / Time fish derived Allergy Severe Hives Verified 04/21/18 13:45 Shellfish Allergy Severe Verified 04/21/18 13:45 sulfamethoxazole Allergy Severe Swelling Verified 04/21/18 13:45 [From Bactrim DS] trimethoprim Allergy Severe Swelling Verified 04/21/18 13:45 [From Bactrim DS] Home Medications: Ambulatory Orders Omeprazole [Prilosec (RX)] 20 mg PO DAILY 08/13/14 Atorvastatin Ca [Lipitor] 80 mg PO HS 05/24/16 Albuterol Sulfate [Proair Respiclick] 90 mcg IH DAILY 11/13/16 Cholecalciferol (Vitamin D3) [Vitamin D3] 2,000 unit PO DAILY 11/13/16 Aspirin [ASA -] 81 mg PO DAILY #30 tab.chew 11/15/16 Pregabalin [Lyrica -] 50 mg PO TID [facility] 50 mg 04/19/17 Docusate Sodium [Colace -] 300 mg PO HS PRN 08/08/17 Sitagliptin Phosphate [Januvia -] 25 mg PO DAILY@0700 #30 tab 08/15/17 Metoprolol Tartrate [Lopressor -] 50 mg PO BID #30 tablet 01/01/18 Clopidogrel Bisulfate [Plavix] 75 tab PO DAILY 04/03/18 Multivit-Mins/Iron/Folic/Lycop [Centrum Men's Tablet] 1 each PO DAILY 11/15/18 Sevelamer Carbonate 1,600 mg PO TIDCM 11/15/18 Review of Systems - Review of Systems Constitutional: No: Chills, Diaphoresis, Fever HEENTM: No: Blurred Vision Respiratory: No: Cough, Shortness of Breath Cardiac (ROS): No: Chest Pain, Lightheadedness, Palpitations ABD/GI: No: Constipated, Diarrhea : No: Burning, Dysuria Musculoskeletal: No: Back Pain Integumentary: No: Bruising Neurological: No: Headache, Numbness <Mamie Wong - Last Filed: 11/15/18 15:14> *Physical Exam - Vital Signs Last Vital Signs Temp Pulse Resp BP Pulse Ox 98.5 F 92 H 19 134/87 100 11/15/18 11:06 11/15/18 11:06 11/15/18 11:06 11/15/18 11:06 11/15/18 11:06 <Ngozi Schreiber - Last Filed: 11/15/18 14:42> - Physical Exam General Appearance: Yes: Nourished, Appropriately Dressed. No: Apparent Distress HEENT: positive: Normal Voice. negative: Scleral Icterus (R), Scleral Icterus ( L) Neck: positive: Trachea midline, Supple. negative: Tender, Rigid Respiratory/Chest: positive: Lungs Clear, Normal Breath Sounds. negative: Chest Tender, Respiratory Distress Cardiovascular: positive: Regular Rhythm, Regular Rate, S1, S2. negative: JVD Vascular Pulses: Dorsalis-Pedis (R): 2+, Doralis-Pedis (L): 2+ Gastrointestinal/Abdominal: positive: Normal Bowel Sounds, Soft, Protuberent Musculoskeletal: positive: Normal Inspection. negative: CVA Tenderness, CVA Tenderness (R), Decreased Range of Motion Extremity: positive: Normal Capillary Refill, Normal Range of Motion, Other ( left toes amputated). negative: Tender Integumentary: positive: Dry, Warm, Other (stasis dermatitis bilaterally on feet and calves) Neurologic: positive: Fully Oriented, Alert, Normal Mood/Affect, Normal Response <Mamie Wong - Last Filed: 11/15/18 15:14> ED Treatment Course - LABORATORY CBC & Chemistry Diagram: 11/15/18 12:21 11/15/18 12:21 - ADDITIONAL ORDERS Additional order review: Laboratory Results 11/15/18 12:21 Sodium 132 L Potassium 3.6 Chloride 97 L Carbon Dioxide 25 Anion Gap 10 BUN 27.2 H Creatinine 5.7 H Est GFR (CKD-EPI)AfAm 11.67 Est GFR (CKD-EPI)NonAf 10.07 Random Glucose 268 H Calcium 8.5 Total Bilirubin 0.4 AST 19 ALT 19 Alkaline Phosphatase 56 Creatine Kinase 32 Troponin I < 0.02 Total Protein 6.9 Albumin 3.3 L 11/15/18 12:21 RBC 3.99 L MCV 94.8 MCHC 34.2 RDW 14.7 MPV 9.2 D Neutrophils % 68.9 Lymphocytes % 16.1 Monocytes % 7.4 Eosinophils % 5.4 H Basophils % 2.2 H <Ngozi Schreiber - Last Filed: 11/15/18 14:42> - LABORATORY CBC & Chemistry Diagram: 11/15/18 12:21 11/15/18 12:21 <Mamie Wong - Last Filed: 11/15/18 15:14> Medical Decision Making - Medical Decision Making 11/15/18 12:31 58 y/o M hx of COPD, Angina, ESRD, gastric bypass surgery, HTN, HLD, diabetes presents to the ED from dialysis with tachycardia Labs/Imaging/Meds EKG, CBC, CMP, cardiac profile EKG: NSR, no ST elevations 11/15/18 14:09 CXR results. No significant change from prior study, clear lungs, prominent central markings And noromal heart. No acute process .soft tissues and bones intact, correlation Recommended. <TessyshannonAshishreema - Last Filed: 11/15/18 15:14> *DC/Admit/Observation/Transfer - Discharge Dispostion Decision to Admit order: No <CandieNgozi becker - Last Filed: 11/15/18 14:42> <TessyshannonAshishreema - Last Filed: 11/15/18 15:14> Diagnosis at time of Disposition: Tachycardia - Discharge Dispostion Disposition: HOME Condition at time of disposition: Good - Referrals Referrals: Hai Davis [Primary Care Provider] - Adrian Naylor MD [Staff Physician] - - Patient Instructions Printed Discharge Instructions: DI for Ambulatory Cardiac Monitoring, DI for Tachycardia Additional Instructions: You were evaluated today for your elevated heart rate during dialysis. At this time you are safe for discharge home. You must make an appointment with Dr. Naylor (a meteorological aide) for further evaluation including a possible monitoring of your heart rate. Your care is not complete until you are evaluated by Dr. Naylor. Return to the Emergency Department for any new/worsening/concerning symptoms. - Post Discharge Activity
[2018-11-15 11:22] VITALS: TEMP 98.5; BMI 43.9
[2018-11-15 12:35] LABS: BASO % 2.2 % (0-2.0); EOS % 5.4 % (0-4.5); HEMATOCRIT 37.8 % (35.4-49); HEMOGLOBIN 12.9 GM/dL (11.7-16.9); LYMPH % 16.1 % (8-40); MCH 32.4 pg (25.7-33.7); MCHC 34.2 g/dl (32.0-35.9); MEAN CELL VOLUME 94.8 fl (80-96); MEAN PLT VOLUME 9.2 fl (7.5-11.1); MONO % 7.4 % (3.8-10.2); NEUT % 68.9 % (42.8-82.8); PLATELET COUNT 164 K/MM3 (134-434); RBC 3.99 M/mm3 (4.00-5.60); RDW 14.7 % (11.9-15.9); WHITE BLOOD COUNT 6.6 K/mm3 (4.0-10.0)
--- NOTE | 2018-11-15 12:56 | PDOC ---
Attending Attestation - Resident Resident Name: Mamie Wong - ED Attending Attestation I have performed the following: I have examined & evaluated the patient, The case was reviewed & discussed with the resident, I agree w/resident's findings & plan - HPI HPI: 11/15/18 12:49 58-year-old male end-stage renal disease on Monday//Monday dialysis presented for his routine dialysis today and was noted to have increased weight in the setting of dietary noncompliance, had a more aggressive dialysis initiated and after about 2 hours was noted to have 60 minutes of persistent tachycardia. The patient was completely asymptomatic and was asleep during the whole thing. no cp/palpitations/sob. otherwise at baseline of late, went fishing yesterday with his friends. - Physicial Exam PE: 11/15/18 12:55 Vital signs stable, heart rate 89 on my examination, O2 sat normal Alert, pleasant, morbidly obese Heart is regular without murmur, lungs are clear Left upper extremity fistula with palpable thrill - Medical Decision Making 11/15/18 12:56 58-year-old male for routine dialysis today but with more aggressive filtration regimen presents now after episode of asymptomatic tachycardia during dialysis. Question primary arrhythmia versus response to fluid shifts, hemodynamically stable and improved and remains asymptomatic. Check labs Cardiac monitoring, EKG Reassess, discuss disposition with patient's thermostat mechanic, Dr. Naylor. 11/15/18 14:22 labs wnl. seen at bedside with Dr. Naylor, plan for outpt Holter. Pt continues to feel well, asx, with normal VS. Heart Score/ECG Review #1 ECG reviewed & interpreted by me at: 11:15 General ECG Interpretation: Sinus Rhythm, Normal Rate (92), Normal Intervals ( qtc 464, LAFB), No acute ischemic changes
[2018-11-15 13:11] LABS: ALBUMIN 3.3 g/dl (3.4-5.0); ALK PHOS 56 U/L (45-117); ANION GAP 10 MMOL/L (8-16); BILIRUBIN,TOTAL 0.4 mg/dL (0.2-1); BLOOD UREA NITROGEN 27.2 mg/dL (7-18); CALCIUM 8.5 mg/dL (8.5-10.1); CHLORIDE 97 mmol/L (98-107); CO2 25 mmol/L (21-32); CREATININE 5.7 mg/dL (0.55-1.3); GLUCOSE,RANDOM 268 mg/dL (74-106); POTASSIUM 3.6 mmol/L (3.5-5.1); SGOT/AST 19 U/L (15-37); SGPT/ALT 19 U/L (13-61); SODIUM 132 mmol/L (136-145); TOT PROT 6.9 g/dl (6.4-8.2)
[2018-11-15 15:11] VITALS: BP 127/68; PULSE 78
--- NOTE | 2018-11-16 14:11 | EKG ---
Test Reason : Blood Pressure : / mmHG Vent. Rate : 092 BPM Atrial Rate : 092 BPM P-R Int : 192 ms QRS Dur : 112 ms QT Int : 376 ms P-R-T Axes : 042 -70 063 degrees QTc Int : 464 ms NORMAL SINUS RHYTHM LEFT ANTERIOR FASCICULAR BLOCK NON-SPECIFIC INTRA-VENTRICULAR CONDUCTION DELAY ABNORMAL ECG Confirmed by DALIA VICENTE MD ([id number]) on 11/16/2018 2:10:46 PM Referred By: Confirmed By:DALIA VICENTE MD
== END 2018-11-15 16:38 | disposition home or self-care (01) ==
LOC: JER 11:03
DX: R00.0 Tachycardia, unspecified (principal); J44.9 Chronic obstructive pulmonary disease, unspecified; E11.22 Type 2 diabetes mellitus with diabetic chronic kidney disease; I12.0 Hypertensive chronic kidney disease with stage 5 chronic kidney disease or end stage renal disease; N18.6 End stage renal disease; Z99.2 Dependence on renal dialysis
CPT/HCPCS: 36415; 71045-TC-FY; 80053; 82550; 84484; 85025; 93005; 93010; 99283-25

== ENCOUNTER 2018-11-19 06:52 | Observation (INO) | payer OTHER | END 2018-11-20 16:27 | disposition home or self-care (01) | LOC: JER 06:52 → JERBED 16:07 → J8W 20:25 ==

== ENCOUNTER 2018-12-27 08:55 | Emergency (ER) | payer OTHER ==
[2018-12-27 09:23] VITALS: TEMP 98.4; BMI 48.3
--- NOTE | 2018-12-27 09:55 | PDOC ---
History of Present Illness - General Chief Complaint: Dialysis Shunt Problem Stated Complaint: Dialysis Shunt Problem Time Seen by Provider: 12/27/18 09:10 History Source: Patient Exam Limitations: No Limitations - History of Present Illness Initial Comments: 12/27/18 09:52 Source: Patient Nephro: Dr. Win HPI: 57 yo male PMH ESRD on dialysis via right arm fistula (t//s) CVA (s/p 2 strokes, most recent 3 years ago with residual LLE weakness, on asa and plavix) CHF, HTN, DM, RLE chronic infection, anemia, COPD presents to the ED after bleeding during dialysis immediately after cannulation. Endorses several days of nausea and an episode of emesis this morning. Pt denies CP, palpitations, SOB, SANON, abdominal pain, back pain, changes in bowel or bladder habits, calf tenderness, recent travel or illness. Past History - Travel Traveled outside of the country in the last 30 days: No Close contact w/someone who was outside of country & ill: No - Past Medical History Allergies/Adverse Reactions: Allergies Allergy/AdvReac Type Severity Reaction Status Date / Time fish derived Allergy Severe Hives Verified 12/27/18 09:24 Shellfish Allergy Severe Verified 12/27/18 09:24 sulfamethoxazole Allergy Severe Swelling Verified 12/27/18 09:24 [From Bactrim DS] trimethoprim Allergy Severe Swelling Verified 12/27/18 09:24 [From Bactrim DS] mupirocin [From Bactroban] Allergy Verified 12/27/18 09:24 Home Medications: Ambulatory Orders Omeprazole [Prilosec (RX)] 20 mg PO DAILY 08/13/14 Atorvastatin Ca [Lipitor] 80 mg PO HS 05/24/16 Albuterol Sulfate [Proair Respiclick] 90 mcg IH DAILY 11/13/16 Cholecalciferol (Vitamin D3) [Vitamin D3] 2,000 unit PO DAILY 11/13/16 Aspirin [ASA -] 81 mg PO DAILY #30 tab.chew 11/15/16 Pregabalin [Lyrica -] 50 mg PO TID MDD 50 mg 04/19/17 Docusate Sodium [Colace -] 300 mg PO HS PRN 08/08/17 Sitagliptin Phosphate [Januvia -] 25 mg PO DAILY@0700 #30 tab 08/15/17 Clopidogrel Bisulfate [Plavix] 75 tab PO DAILY 04/03/18 Multivit-Mins/Iron/Folic/Lycop [Centrum Men's Tablet] 1 each PO DAILY 11/15/18 Sevelamer Carbonate 1,600 mg PO TIDCM 11/15/18 Calcium Carbonate [Tums Ultra] 750 mg PO BID 12/27/18 Metoprolol Tartrate [Lopressor -] 50 mg PO DAILY 12/27/18 Anemia: Yes Asthma: Yes Cancer: No Cardiac Disorders: Yes (ANGINA) CVA: Yes (X 2) COPD: Yes CHF: Yes Dementia: No Diabetes: Yes Dialysis: Yes (left arm AV fistula ) GI Disorders: No Disorders: No HTN: Yes Hypercholesterolemia: Yes Liver Disease: No Seizures: No Thyroid Disease: No Other medical history: Morbidly Obese, chronic lateral RLE chronic ulcer - Surgical History Abdominal Surgery: Yes (gastric bypass 05/05/14) Appendectomy: No Cardiac Surgery: No Cholecystectomy: No Lung Surgery: No Neurologic Surgery: No Orthopedic Surgery: Yes - Immunization History Immunization Up to Date: Yes - Psycho Social/Smoking Cessation Hx Smoking Status: No Smoking History: Former smoker Have you smoked in the past 12 months: No Number of Cigarettes Smoked Daily: 0 Cigars Per Day: 0 Information on smoking cessation initiated: No Hx Alcohol Use: No Drug/Substance Use Hx: No Substance Use Type: None Hx Substance Use Treatment: No Review of Systems - Review of Systems Able to Perform ROS?: Yes Is the patient limited Guyanese proficient: Yes Constitutional: Yes: Weight Stable. No: Chills, Diaphoresis, Fever, Weakness HEENTM: No: Recent change in vision, Nose Congestion, Throat Pain Respiratory: No: Cough, Shortness of Breath, Wheezing Cardiac (ROS): Yes: Edema (chronic, unchanged). No: Chest Pain, Irregular Heart Rate, Syncope, Chest Tightness ABD/GI: Yes: Poor Appetite, Poor Fluid Intake. No: Constipated, Diarrhea, Nausea, Vomiting : No: Burning, Dysuria, Pain Musculoskeletal: No: Back Pain, Joint Pain, Muscle Pain, Muscle Weakness Integumentary: Yes: Other (chronic RLE wound). No: Bruising, Pruritus, Rash Neurological: Yes: Tremors (R hand, congenital) Psychiatric: Yes: Change in Appetite (reduced). No: Stressors, Mood Swings Hematologic/Lymphatic: Yes: See HPI, Easy Bleeding. No: Anemia, Easy Bruising All Other Systems: Reviewed and Negative *Physical Exam - Vital Signs Last Vital Signs Temp Pulse Resp BP Pulse Ox 98.4 F 100 H 18 145/70 98 12/27/18 09:16 12/27/18 09:16 12/27/18 09:16 12/27/18 09:16 12/27/18 09:28 - Physical Exam Comments: 12/27/18 10:33 Vitals reviewed, AFVSS LUE with non-bleeding suture line overlying site of fistula revision +Tremor, b/l hands, R>L ED Treatment Course - LABORATORY CBC & Chemistry Diagram: 12/27/18 09:50 12/27/18 09:50 Medical Decision Making - Medical Decision Making 12/27/18 10:20 58yo M -CBC, CMP, PT/INR, PTT, BNP, Cardiac Profile, EKG 12/27/18 10:46 -Labs wnl -EKG with NSR, left axis deviation, 78BPM, no ST changes, unchaged from prior 12/27/18 10:49 -Spoke with Dr. Sheets, plan to discharge patient to his office for Doppler study. Discharge - Discharge Information Problems reviewed: Yes Clinical Impression/Diagnosis: Hemorrhage of arteriovenous fistula Qualifiers: Encounter type: initial encounter Qualified Code(s): T82.838A - Hemorrhage due to vascular prosthetic devices, implants and grafts, initial encounter Condition: Stable Disposition: HOME - Admission No - Follow up/Referral Referrals: Hai Davis [Primary Care Provider] - Raj Sheets MD [Staff Physician] - - Patient Discharge Instructions Additional Instructions: Please proceed immediately to Dr. Sheets's office for ultrasound evaluation of your fistula. Call to arrange a dialysis session tomorrow. If you have bleeding again - apply pressure and immediately seek emergency care. Return to the ED for ANY new or concerning symptoms. - Post Discharge Activity
[2018-12-27 10:06] LABS: BASO % 2.5 % (0-2.0); EOS % 6.4 % (0-4.5); HEMATOCRIT 28.7 % (35.4-49); HEMOGLOBIN 9.5 GM/dL (11.7-16.9); LYMPH % 12.5 % (8-40); MCH 32.4 pg (25.7-33.7); MCHC 33.1 g/dl (32.0-35.9); MEAN PLT VOLUME 9.2 fl (7.5-11.1); MONO % 7.3 % (3.8-10.2); NEUT % 71.3 % (42.8-82.8); PLATELET COUNT 216 K/MM3 (134-434); RBC 2.93 M/mm3 (4.00-5.60); RDW 16.2 % (11.9-15.9); WHITE BLOOD COUNT 7.8 K/mm3 (4.0-10.0)
[2018-12-27 10:20] LABS: INR 1.15 (0.83-1.09); PROTHROMBIN TIME (PATIENT) 13.6 SEC (9.7-13.0)
[2018-12-27 10:22] LABS: ACTIVATED PTT 36.1 SECONDS (25.2-36.5)
[2018-12-27 10:34] LABS: ALBUMIN 2.8 g/dl (3.4-5.0); BILIRUBIN,TOTAL 0.5 mg/dL (0.2-1); BLOOD UREA NITROGEN 42.2 mg/dL (7-18); CALCIUM 8.4 mg/dL (8.5-10.1); N-TERMINAL BNP 8442.2 pg/ml (5-125); POTASSIUM 3.8 mmol/L (3.5-5.1); TOT PROT 6.1 g/dl (6.4-8.2)
[2018-12-27 10:40] LABS: CREATININE 8.3 mg/dL (0.55-1.3)
[2018-12-27 11:22] VITALS: BP 143/79; PULSE 81
--- NOTE | 2018-12-27 11:24 | PDOC ---
Attending Attestation - Resident Resident Name: Elie Sheikh - ED Attending Attestation I have performed the following: I have examined & evaluated the patient, The case was reviewed & discussed with the resident, I agree w/resident's findings & plan, Exceptions are as noted
--- NOTE | 2018-12-27 11:47 | PDOC ---
Attending Attestation - Resident Resident Name: AguilarFanElie - ED Attending Attestation I have performed the following: I have examined & evaluated the patient, The case was reviewed & discussed with the resident, I agree w/resident's findings & plan, Exceptions are as noted - HPI HPI: 57-year-old male with a history of end-stage renal disease on dialysis with right arm fistula, CVA, CHF, anemia, COPD presents the emergency department with resolved bleeding from fistula after attempted cannulation during dialysis today. Bleeding was controlled with pressure dressing. Of note, patient had his fistula revised 3 weeks ago. Patient reports 3 days of nausea and one episode of emesis, but denies any nausea at this time. Denies any headaches, dizziness, focal weakness or numbness, chest pain, shortness of breath, abdominal pain, lower extremity edema, rashes. - Physicial Exam PE: 12/27/18 11:47 agree with resident exam - Medical Decision Making 12/27/18 11:48 58-year-old male with multiple medical problems including end-stage renal disease, presents the emergency department with resolved bleeding from fistula that was recently revised 3 weeks ago. Patient currently feels well, reports nausea and one episode of vomiting this morning that resolved. Labs checked, electrolytes within normal limits. No evidence of fluid overload , or any clinical evidence of need for urgent dialysis at this time. Hemoglobin noted to be 9.5, down from 11 one month ago. Likely dropped due to recent surgery and revision, patient denies any dark or bloody stools. Discussed case, including hemoglobin drop with Dr. Sheets. He states it could be secondary to recent surgery. He prefers that we send the patient to his office now for evaluation and imaging of his fistula upon discharge, as long with his labs are otherwise within normal limits. Patient is feeling well and has no complaints. We will discharge to Dr. Sheets's office at this time for fistula evaluation. Patient will be able to get dialysis tomorrow. I discussed the physical exam findings, ancillary test results and final diagnoses with the patient. I answered all of the patient's questions. The patient was satisfied with the care received and felt comfortable with the discharge plan and treatment plan. The patient will call their primary care physician within 24 hours to arrange follow-up and will return to the Emergency Department with any new, persistent or worsening symptoms.
--- NOTE | 2018-12-27 13:33 | EKG ---
Test Reason : Blood Pressure : / mmHG Vent. Rate : 078 BPM Atrial Rate : 078 BPM P-R Int : 214 ms QRS Dur : 116 ms QT Int : 394 ms P-R-T Axes : 004 -50 056 degrees QTc Int : 449 ms SINUS RHYTHM WITH 1ST DEGREE A-V BLOCK WITH PREMATURE ATRIAL COMPLEXES LEFT AXIS DEVIATION ANTERIOR INFARCT (CITED ON OR BEFORE 20-NOV-2018) ABNORMAL ECG WHEN COMPARED WITH ECG OF 20-NOV-2018 00:29, PREMATURE ATRIAL COMPLEXES ARE NOW PRESENT Confirmed by TRINITY LUNA MD ([id number]) on 12/27/2018 1:33:10 PM Referred By: Confirmed By:TRINITY LUNA MD
== END 2018-12-27 11:25 | disposition home or self-care (01) ==
LOC: JER 08:55
DX: T82.838A Hemorrhage due to vascular prosthetic devices, implants and grafts, initial encounter (principal); I25.119 Atherosclerotic heart disease of native coronary artery with unspecified angina pectoris; I13.2 Hypertensive heart and chronic kidney disease with heart failure and with stage 5 chronic kidney disease, or end stage renal disease; N18.6 End stage renal disease; I50.89 Other heart failure; Z99.2 Dependence on renal dialysis; Z87.891 Personal history of nicotine dependence; E11.22 Type 2 diabetes mellitus with diabetic chronic kidney disease; Z79.84 Long term (current) use of oral hypoglycemic drugs; E78.00 Pure hypercholesterolemia, unspecified; D64.9 Anemia, unspecified; J45.909 Unspecified asthma, uncomplicated; J44.9 Chronic obstructive pulmonary disease, unspecified; L98.491 Non-pressure chronic ulcer of skin of other sites limited to breakdown of skin; I69.854 Hemiplegia and hemiparesis following other cerebrovascular disease affecting left non-dominant side; Z79.82 Long term (current) use of aspirin; Z79.02 Long term (current) use of antithrombotics/antiplatelets; Z88.2 Allergy status to sulfonamides; Z91.013 Allergy to seafood; Z88.8 Allergy status to other drugs, medicaments and biological substances; E66.01 Morbid (severe) obesity due to excess calories; Z68.42 Body mass index [BMI] 45.0-49.9, adult; Z98.84 Bariatric surgery status
CPT/HCPCS: 36415; 80053; 82550; 83880; 84484; 85025; 85610; 85730; 93005; 93010; 99284-25

== ENCOUNTER 2019-01-29 12:10 | Inpatient (IN) | payer OTHER ==
[2019-01-29] MEDS ORDERED: ACETAMINOPHEN 1000 MG/100 ML VIAL (NON FORMULARY) IVPB ONE (13:20)
[2019-01-29] MEDS ORDERED: ONDANSETRON 4 MG/2 ML VIAL IVPUSH ONE (13:20)
[2019-01-29] MEDS ORDERED: FAMOTIDINE 20 MG/50 ML IVPB 20 MG/50 ML MG IVPB ONE ×3 (13:22→15:06)
--- NOTE | 2019-01-29 13:22 | PDOC ---
History of Present Illness - General History Source: Patient Exam Limitations: No Limitations <Dionte Dugan - Last Filed: 01/29/19 19:03> <Yessy Schulz - Last Filed: 01/29/19 19:57> - General Chief Complaint: Shortness of Breath Stated Complaint: Shortness of Breath Time Seen by Provider: 01/29/19 12:25 Past History - Past Medical History Anemia: Yes Asthma: Yes Cancer: No Cardiac Disorders: Yes (ANGINA) CVA: Yes (X 2) COPD: No CHF: Yes Dementia: No Diabetes: Yes Dialysis: Yes (left arm AV fistula ) GI Disorders: No Disorders: No HTN: Yes Hypercholesterolemia: Yes Liver Disease: No Seizures: No Thyroid Disease: No - Surgical History Abdominal Surgery: Yes (gastric bypass 05/05/14) Appendectomy: No Cardiac Surgery: No Cholecystectomy: No Lung Surgery: No Neurologic Surgery: No Orthopedic Surgery: Yes - Immunization History Immunization Up to Date: Yes - Psycho Social/Smoking Cessation Hx Smoking Status: No Smoking History: Never smoked Have you smoked in the past 12 months: No Number of Cigarettes Smoked Daily: 0 Cigars Per Day: 0 Information on smoking cessation initiated: No Hx Alcohol Use: No Drug/Substance Use Hx: No Substance Use Type: None Hx Substance Use Treatment: No <Dionte Dugan - Last Filed: 01/29/19 19:03> <Yessy Schulz - Last Filed: 01/29/19 19:57> - Past Medical History Allergies/Adverse Reactions: Allergies Allergy/AdvReac Type Severity Reaction Status Date / Time fish derived Allergy Severe Hives Verified 12/27/18 09:24 Shellfish Allergy Severe Verified 12/27/18 09:24 sulfamethoxazole Allergy Severe Swelling Verified 12/27/18 09:24 [From Bactrim DS] trimethoprim Allergy Severe Swelling Verified 12/27/18 09:24 [From Bactrim DS] mupirocin [From Bactroban] Allergy Verified 12/27/18 09:24 Home Medications: Ambulatory Orders Omeprazole [Prilosec (RX)] 20 mg PO DAILY 08/13/14 Atorvastatin Ca [Lipitor] 80 mg PO HS 05/24/16 Albuterol Sulfate [Proair Respiclick] 90 mcg IH DAILY 11/13/16 Cholecalciferol (Vitamin D3) [Vitamin D3] 2,000 unit PO DAILY 11/13/16 Aspirin [ASA -] 81 mg PO DAILY #30 tab.chew 11/15/16 Pregabalin [Lyrica -] 50 mg PO TID MDD 50 mg 04/19/17 Docusate Sodium [Colace -] 300 mg PO HS PRN 08/08/17 Sitagliptin Phosphate [Januvia -] 25 mg PO DAILY@0700 #30 tab 08/15/17 Clopidogrel Bisulfate [Plavix] 75 tab PO DAILY 04/03/18 Multivit-Mins/Iron/Folic/Lycop [Centrum Men's Tablet] 1 each PO DAILY 11/15/18 Sevelamer Carbonate 1,600 mg PO TIDCM 11/15/18 Calcium Carbonate [Tums Ultra] 750 mg PO BID 12/27/18 Metoprolol Tartrate [Lopressor -] 50 mg PO DAILY 12/27/18 Review of Systems - Review of Systems Able to Perform ROS?: Yes Is the patient limited Palestinian proficient: No <Dionte Dugan - Last Filed: 01/29/19 19:03> *Physical Exam - Vital Signs Last Vital Signs Temp Pulse Resp BP Pulse Ox 97.9 F 79 16 174/114 H 96 01/29/19 12:15 01/29/19 12:15 01/29/19 12:15 01/29/19 12:15 01/29/19 12:15 <Dionte Dugan - Last Filed: 01/29/19 19:03> - Vital Signs Last Vital Signs Temp Pulse Resp BP Pulse Ox 97.9 F 79 16 174/114 H 96 01/29/19 12:15 01/29/19 12:15 01/29/19 12:15 01/29/19 12:15 01/29/19 12:15 <Yessy Schulz - Last Filed: 01/29/19 19:57> ED Treatment Course - LABORATORY CBC & Chemistry Diagram: 01/29/19 15:19 01/29/19 15:19 <Dionte Dugan - Last Filed: 01/29/19 19:03> - LABORATORY CBC & Chemistry Diagram: 01/29/19 15:19 01/29/19 15:19 - ADDITIONAL ORDERS Additional order review: Laboratory Results 01/29/19 15:19 Sodium 133 L Potassium 3.9 Chloride 96 L Carbon Dioxide 28 Anion Gap 9 BUN 16.0 Creatinine 4.9 H Est GFR (CKD-EPI)AfAm 14.01 Est GFR (CKD-EPI)NonAf 12.09 Random Glucose 189 H Calcium 8.6 Total Bilirubin 0.7 AST 140 H ALT 99 H Alkaline Phosphatase 94 Creatine Kinase 26 Troponin I 0.04 Total Protein 7.3 Albumin 2.9 L Lipase 192 01/29/19 15:19 RBC 4.03 MCV 97.9 H MCHC 33.0 RDW 17.8 H MPV 9.1 Neutrophils % 82.8 Lymphocytes % 7.9 L D Monocytes % 6.4 Eosinophils % 1.8 Basophils % 1.1 - Medications Given in the ED: ED Medications Discontinued Medications Generic Name Dose Route Start Last Admin Trade Name Nataliia PRN Reason Stop Dose Admin Acetaminophen 1,000 mg 01/29/19 13:20 01/29/19 15:10 Ofirmev Injection - IVPB 01/29/19 13:21 1,000 mg ONCE ONE Administration Famotidine/Sodium Chloride 20 mg in 50 mls @ 100 mls/hr 01/29/19 13:22 15:10 Pepcid 20 Mg Premixed Ivpb - IVPB 01/29/19 13:51 100 mls/hr ONCE ONE Administration Ondansetron HCl 4 mg 01/29/19 13:20 01/29/19 14:12 Zofran Injection IVPUSH 01/29/19 13:21 4 mg ONCE ONE Administration <Yessy Schulz - Last Filed: 01/29/19 19:57> Medical Decision Making - Medical Decision Making 01/29/19 13:46 HPI: 58M PMH HTN, HLD, COPD, Asthma, HOLLY, CHF, NIDDM, ESRD HD T/R/Sa, and past CVA w / residual left sided tremor and weakness presenting with one week of mid- epigastric pain, inability to tolerate PO, nausea, vomiting, and dry heaving, with associated weakness, lightheadedness, and subjective chills. Endorses sob x1 day at rest. Denies diarrhea, bloody stool. Hx bariatric surgery. Denies etoh. Pt admitted to [facility] in 12/2018 for infection, dc'd with picc line to continue abx. Pt was on oxacillin until today. ROS: CONSTITUTIONAL: Endorses Chills HEENT: Endorses lightheadedness. Denies sore throat, rhinorrhea. RESP: Endorses SOB. CARD: Denies chest pain, palpitations GI: Endorses midepigastric abdominal pain, n/v, po intolerance. Denies D, bloody stool : Denies dysuria, frequency. Does not make much urine 2/2 ESRD NEURO: Denies numbness, tingling, weakness PE: GEN: Nontoxic, fatigued. AAOx3 HEENT: NC/AT. Normal voice. Supple neck w/ FROM. CV: S1/S2, RRR, no m/r/g LUNG: CTAB, no wheezes, crackles, rales, rhonchi. GI: +TTP midepigastrium, soft, nd, +BS, no guarding, no rebound. EXTREMITIES: No obvious deformities of all extremities. Chronic skin changes of the b/l LE. chronic ulcer of the RLE, dressed. picc line in place RUE. SKIN: warm, dry, normal turgor PSYCH: normal mood and affect NEURO: Moving all extremities well MDM: 58M w/ 1 week of mid-epigastric pain, n/v, po intolerance. On manager intermediate oxacillin via picc line. +TTP on exam, abd soft. Nonperitoneal exam. DDx - biliary pathology, pud, colitis, gastritis, pancreatitis - cbc, cmp, cardiac - ekg, cxr - CT A/P 01/29/19 19:03 signed out to PM team <Dionte Dugan - Last Filed: 01/29/19 19:03> Discharge <Dionte Dugan - Last Filed: 01/29/19 19:03> - Discharge Information Problems reviewed: Yes - Admission Yes <Yessy Schulz - Last Filed: 01/29/19 19:57> - Discharge Information Clinical Impression/Diagnosis: Morbid obesity, ESRD (end stage renal disease), HOLLY (obstructive sleep apnea), DM type 2, uncontrolled, with renal complications Chronic kidney disease Qualifiers: Chronic kidney disease stage: on chronic dialysis Qualified Code(s): N18.6 - End stage renal disease; Z99.2 - Dependence on renal dialysis HTN (hypertension) Qualifiers: Hypertension type: essential hypertension Qualified Code(s): I10 - Essential ( primary) hypertension Intractable vomiting Qualifiers: Vomiting type: unspecified Nausea presence: with nausea Qualified Code(s): R11.2 - Nausea with vomiting, unspecified Condition: Fair - Follow up/Referral Referrals: Hai Davis [Primary Care Provider] - - Patient Discharge Instructions - Post Discharge Activity
[2019-01-29] MEDS ORDERED: ACETAMINOPHEN INJECTION 100 ML IVPB ONE (14:02)
[2019-01-29] MEDS ORDERED: ONDANSETRON 4 MG/2 ML VIAL ONE (14:03)
--- NOTE | 2019-01-29 14:07 | PDOC ---
Attending Attestation - Resident Resident Name: Dionte Dugan - ED Attending Attestation I have performed the following: I have examined & evaluated the patient, The case was reviewed & discussed with the resident, I agree w/resident's findings & plan - HPI HPI: 01/29/19 14:01 58/o M history of multiple medical problems including end-stage renal disease on dialysis, infected fistula on antibiotics via PICC line, gastric sleeve surgery presents now from dialysis with progressive complaints over the last few weeks of intermittent abdominal pain with decreased oral intake and generalized weakness. Patient reports onset of localized epigastric pain over the last few weeks, worse with meals and resulting in postprandial nonbloody nonbilious vomiting and anorexia with decreased oral intake and minimal hydration over the last 3 days. Pain is sharp, nonradiating, self resolving. Has had normal bowel movements and flatus since onset of the pain, denies any known history of PUD/gastritis/cholelithiasis/pancreatitis, never had obstruction following surgery. Also reporting chest pain and some shortness of breath particularly today while at dialysis, prompting ED referral. - Physicial Exam PE: 01/29/19 14:19 Elevated blood pressure, otherwise afebrile Seated in wheelchair for his own comfort, by request Alert, no acute respiratory distress Dry mucosa, no jaundice or pallor Heart is regular, lungs are clear Abdomen is soft/nondistended. Diffusely tender predominantly in the epigastric region with some guarding, no rebound. - Medical Decision Making 01/29/19 14:20 58-year-old male with history of end-stage renal disease on dialysis, gastric sleeve surgery presents now with intermittent epigastric pain for several weeks , worsening over the last few days and localized exam with some peritoneal findings. Presentation concerning for gastric versus pancreatic versus biliary etiology, rule out SBO given surgical history, r/o vascular process including ischemia/aneurysm. Several ACS risk factors, reports otherwise atypical chest pain but with some dyspnea today, will also need cardiac work-up. Labs EKG, chest x-ray CAT scan of the abdomen and pelvis with IV contrast Admission 01/29/19 17:17 wbc 11.9, slightly elevated ast/alt, lipase normal. trop negative. Cr baseline. ctap pending. admit after ctap. Heart Score/ECG Review #1 ECG reviewed & interpreted by me at: 15:26 General ECG Interpretation: Sinus Rhythm (with APC noted), Normal Rate (92), Normal Intervals (qtc 457; LAFB), No acute ischemic changes (twi AVL,)
[2019-01-29 15:38] LABS: BASO % 1.1 % (0-2.0); EOS % 1.8 % (0-4.5); HEMATOCRIT 39.4 % (35.4-49); LYMPH % 7.9 % (8-40); MCH 32.3 pg (25.7-33.7); MEAN CELL VOLUME 97.9 fl (80-96); MEAN PLT VOLUME 9.1 fl (7.5-11.1); MONO % 6.4 % (3.8-10.2); NEUT % 82.8 % (42.8-82.8); PLATELET COUNT 289 K/MM3 (134-434); RBC 4.03 M/mm3 (4.00-5.60); RDW 17.8 % (11.9-15.9); WHITE BLOOD COUNT 11.9 K/mm3 (4.0-10.0)
[2019-01-29 17:00] LABS: ALBUMIN 2.9 g/dl (3.4-5.0); BILIRUBIN,TOTAL 0.7 mg/dL (0.2-1); CALCIUM 8.6 mg/dL (8.5-10.1); CREATININE 4.9 mg/dL (0.55-1.3); POTASSIUM 3.9 mmol/L (3.5-5.1); TOT PROT 7.3 g/dl (6.4-8.2)
--- NOTE | 2019-01-29 18:52 | CONSULT ---
Consult Consult Specialty:: Nephrology Reason for Consultation:: ESRD - History of Present Illness Chief Complaint: sent pt to hospital for tachycardia History of Present Illness: Pt is a 58 year old male with pmhx of ESRD, infection av fistula on abx, htn, obesity and anemia who presents from HD for generalized malaise and tachycardia. He was found to be tachyardic. he also complained of nausea and did have vomiting. He denies chest pain or palpitations. He denies shortness of breath. He does complain of decrease solid intake. He does have abd pain. 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 Cardio/Vascular: Yes: HTN, Hyperlipdemia Pulmonary: Yes: Sleep Apnea Gastrointestinal: Yes: GERD, Other (obesity) Renal/: Yes: Renal Failure, Renal Inusuff, Hemodialysis, Other Endocrine: Yes: Diabetes Mellitus - Past Surgical History Past Surgical History: Yes: AV Fistula/Graft - Alcohol/Substance Use Hx Alcohol Use: No - Smoking History Smoking history: Never smoked Have you smoked in the past 12 months: No Aproximately how many cigarettes per day: 0 - Social History Usual Living Arrangement: Halfway ADL: Independent History of Recent Travel: No Home Medications - Allergies Allergies/Adverse Reactions: Allergies Allergy/AdvReac Type Severity Reaction Status Date / Time fish derived Allergy Severe Hives Verified 12/27/18 09:24 Shellfish Allergy Severe Verified 12/27/18 09:24 sulfamethoxazole Allergy Severe Swelling Verified 12/27/18 09:24 [From Bactrim DS] trimethoprim Allergy Severe Swelling Verified 12/27/18 09:24 [From Bactrim DS] mupirocin [From Bactroban] Allergy Verified 12/27/18 09:24 - Home Medications Home Medications: Ambulatory Orders Omeprazole [Prilosec (RX)] 20 mg PO DAILY 08/13/14 Atorvastatin Ca [Lipitor] 80 mg PO HS 05/24/16 Albuterol Sulfate [Proair Respiclick] 90 mcg IH DAILY 11/13/16 Cholecalciferol (Vitamin D3) [Vitamin D3] 2,000 unit PO DAILY 11/13/16 Aspirin [ASA -] 81 mg PO DAILY #30 tab.chew 11/15/16 Pregabalin [Lyrica -] 50 mg PO TID MDD 50 mg 04/19/17 Docusate Sodium [Colace -] 300 mg PO HS PRN 08/08/17 Sitagliptin Phosphate [Januvia -] 25 mg PO DAILY@0700 #30 tab 08/15/17 Clopidogrel Bisulfate [Plavix] 75 tab PO DAILY 04/03/18 Multivit-Mins/Iron/Folic/Lycop [Centrum Men's Tablet] 1 each PO DAILY 11/15/18 Sevelamer Carbonate 1,600 mg PO TIDCM 11/15/18 Calcium Carbonate [Tums Ultra] 750 mg PO BID 12/27/18 Metoprolol Tartrate [Lopressor -] 50 mg PO DAILY 12/27/18 Family Medical History Family History: Denies Review of Systems - Review of Systems Constitutional: reports: Malaise Eyes: reports: No Symptoms HENT: reports: No Symptoms Neck: reports: No Symptoms Cardiovascular: reports: No Symptoms Respiratory: reports: No Symptoms Gastrointestinal: reports: Abdominal Pain, Bloating, Vomiting Genitourinary: reports: No Symptoms Musculoskeletal: reports: No Symptoms Integumentary: reports: No Symptoms Neurological: reports: No Symptoms Endocrine: reports: No Symptoms Hematology/Lymphatic: reports: No Symptoms Psychiatric: reports: No Symptoms Physical Exam Vital Signs: Vital Signs Temperature 97.9 F 01/29/19 12:15 Pulse Rate 79 01/29/19 12:15 Respiratory Rate 16 01/29/19 12:15 Blood Pressure 174/114 H 01/29/19 12:15 O2 Sat by Pulse Oximetry (%) 96 01/29/19 12:15 Constitutional: Yes: Calm Eyes: Yes: Conjunctiva Clear HENT: Yes: Atraumatic Cardiovascular: Yes: S1, S2 Respiratory: Yes: CTA Bilaterally Gastrointestinal: Yes: Soft, Abdomen, Obese Renal/: Yes: WNL Musculoskeletal: Yes: WNL Edema: Yes Edema: LLE: 2+, RLE: 2+ Neurological: Yes: Oriented Psychiatric: Yes: Oriented Labs: CBC, BMP 01/29/19 15:19 01/29/19 15:19 Assessment/Plan Impression 1. ESRD 2. anemia 3. HTN 4. morbid obesity 5. CVA 6. hyperlipidemia 7. proteinuria - nephrotic 8. PVD 9. foot ulcer 10. abd pain 11. vomiting 12. tachycardia Plan - pt had HD today - follow ct scan - abd pain workup - npo for now, renal diet once eating
--- NOTE | 2019-01-29 20:06 | PN ---
Teaching Attending Note Name of Resident: Marques Jonas ATTENDING PHYSICIAN STATEMENT I saw and evaluated the patient. I reviewed the resident's note and discussed the case with the resident. I agree with the resident's findings and plan as documented. 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 Patient reports onset of localized epigastric pain over the last few weeks, worse with meals and resulting in postprandial nonbloody nonbilious vomiting. Has been on IV oxacillin for vascular access related infection for several weeks - [place] [facility] [place] Has had anorexia with decreased oral intake and minimal hydration over the last 3 days. Pain is sharp, nonradiating and self resolving. Has had normal bowel movements and flatus since onset of the pain. Denies any known history of PUD, gastritis, cholelithiasis, pancreatitis or SBO. Also reporting chest pain and some shortness of breath particularly today while at dialysis. Denies fever, chills, headache, photophobia, dizziness, dysuria or hematochezia. No recent travel or sick contact. Denies alcohol, tobacco or illicit drug use. OBJECTIVE: Alert Vital Signs Period Temp Pulse Resp BP Sys/Leon Pulse Ox Last 24 Hr 97.9 F 79 16 174/114 96 HEENT: No Jaundice, eye redness or discharge, PERRLA, EOMI. Normocephalic, atraumatic. External ears are normal and hearing is grossly intact. No nasal discharge. Neck: Supple, nontender. No palpable adenopathy or thyromegaly. No JVD Chest: Good effort. Clear to auscultation and percussion. Heart: Regular. No S3, rub or murmur Abdomen: Not distended, soft, epigastric tenderness and no HSM. No rebound or guarding. Normal bowel sounds. Ext: Peripheral pulses intact. No leg edema. Right leg ulcer. Skin: Warm and dry. No petechiae, rash or ecchymosis. Neuro: Alert. Oriented x3. CN 2-12 grossly intact. Sensation grossly intact in all four extremities and DTR are symmetric. Psych: Appropriate mood and affect. Good insight. Home Medications Medication Instructions Recorded Omeprazole [Prilosec (RX)] 20 mg PO DAILY 08/13/14 Atorvastatin Ca [Lipitor] 80 mg PO HS 05/24/16 Albuterol Sulfate [Proair 90 mcg IH DAILY 11/13/16 Respiclick] Cholecalciferol (Vitamin D3) 2,000 unit PO DAILY 11/13/16 [Vitamin D3] Aspirin [ASA -] 81 mg PO DAILY #30 tab.chew 11/15/16 Pregabalin [Lyrica -] 50 mg PO TID MDD 50 mg 04/19/17 Docusate Sodium [Colace -] 300 mg PO HS PRN 08/08/17 Sitagliptin Phosphate [Januvia -] 25 mg PO DAILY@0700 #30 tab 08/15/17 Clopidogrel Bisulfate [Plavix] 75 tab PO DAILY 04/03/18 Multivit-Mins/Iron/Folic/Lycop 1 each PO DAILY 11/15/18 [Centrum Men's Tablet] Sevelamer Carbonate 1,600 mg PO TIDCM 11/15/18 Calcium Carbonate [Tums Ultra] 750 mg PO BID 12/27/18 Metoprolol Tartrate [Lopressor -] 50 mg PO DAILY 12/27/18 Abnormal Lab Results 01/29/19 01/29/19 15:19 15:19 WBC 11.9 H MCV 97.9 H RDW 17.8 H Absolute Neuts (auto) 9.8 H Lymphocytes % 7.9 L D Sodium 133 L Chloride 96 L Creatinine 4.9 H Random Glucose 189 H AST 140 H ALT 99 H Albumin 2.9 L ASSESSMENT AND PLAN: 1. ESRD with Abdominal pain syndrome - Diabetic gastropathy or gastritis (? uremic, ?viral) may explain symptoms. Will contact his doctors [place] [facility] find out how long they plan to treat him with oxacillin. CT abdomen/pelvis with IV contrast showed cholelithiasis (chronic) and no new abnormalities. CXR showed cardiomegaly and hilar prominence. EKG shows NSR with LAE and no ischemic changes. Will consult nephrology to assess dialysis adequacy, give IV protonix and reglan (adjusted for GFR), test for H. pylori and consult GI for possible EGD. Mild leukocytosis is unexplained - will monitor closely and get blood cultures under very sterile conditions. Will continue comprehensive care for all of patients comorbid conditions including daily wound care for right leg ulcer. 2. Hypoalbuminemia - Possibly due to combined effects of malnutrition and inflammation associated with comorbid chronic conditions. Will ensure adequate dietary protein intake and also consult grain operations manager. 3. Uncontrolled DM For now, we will hold the home diabetes drugs and implement sliding scale insulin regimen. Provide comprehensive diabetes care with patient teaching and counseling about the importance of adherence to prescribed diabetes regimen, euglycemia, eye care and foot care. 4. Morbid Obesity Counseled on the risks associated with obesity. Will provide patient all the necessary assistance, counseling and positive reinforcement to facilitate weight loss. Consult grain operations manager. 5. Hypertension - Restart suitable outpatient antihypertensive drugs when clinically appropriate. Revise regimen to ensure [id number] excellent BP control and spiritual counselor patient on the injurious effects of uncontrolled hypertension. Nonpharmacologic measures to control hypertension like weight loss , salt restriction and exercise discussed. Importance of adherence to treatment regimen and attainment of normotension emphasized. 6. DVT prophylaxis - Heparin 5000u sq tid. 7. Advance directives - Full code
[2019-01-29] MEDS ORDERED: ENOXAPARIN NA (PORCINE) 30 MG/0.3 ML DISP.SYRIN SQ SCH (20:15)
[2019-01-29] MEDS ORDERED: ENOXAPARIN NA (PORCINE) 30 MG/0.3 ML DISP.SYRIN SQ ONE (21:17)
[2019-01-30] MEDS ORDERED: DOCUSATE SODIUM 100 MG CAPSULE (FP) PO PRN (02:10)
--- NOTE | 2019-01-30 02:40 | HP ---
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 Pt notes its associated brown loose stool but states its chronic. He has had poor appetite for the past week. Endorses to not eating solid foods for over a month due to "it coming back up on him". Pt has not seen a GI doctor in past. He was evaluated in 12/22 at [facility] for AV fistula infection and thus it was replaced and a PICC line was placed in the interim so he could undergo dialysis. He has been on oxacillin abx IV for the past 2 mths. Unclear how long pt requires this management. Pt is unemployed lives at home with his mother and has a nurse that comes once a week to draw his blood and change his IV. ER course was notable for: (1) CT abd/pelvis- marked b/l renal atrophy, small lt renal cortical cysts, cholelithiasis w/o inflammation, stable minimal ->mild b/l adrenal gland thickening. CXR (-) (2) Na-133, AST/ALT- 140/99, wbc 11.9 (3) Alb- 1.9, lipase normal- 192, trop negative Recent Travel: denies Social History: Smoking:denies Alcohol: drank ETOH for 14 yrs 2 6packs beer/day Drugs: denies Allergies fish derived Allergy (Severe, Verified 12/27/18 09:24) Hives Shellfish Allergy (Severe, Verified 12/27/18 09:24) throat swelling sulfamethoxazole [From Bactrim DS] Allergy (Severe, Verified 12/27/18 09:24) Swelling trimethoprim [From Bactrim DS] Allergy (Severe, Verified 12/27/18 09:24) Swelling mupirocin [From Bactroban] Allergy (Verified 12/27/18 09:24) HOME MEDICATIONS: Home Medications Medication Instructions Recorded Omeprazole [Prilosec (RX)] 20 mg PO DAILY 08/13/14 Atorvastatin Ca [Lipitor] 80 mg PO HS 05/24/16 Albuterol Sulfate [Proair 90 mcg IH DAILY 11/13/16 Respiclick] Cholecalciferol (Vitamin D3) 2,000 unit PO DAILY 11/13/16 [Vitamin D3] Aspirin [ASA -] 81 mg PO DAILY #30 tab.chew 11/15/16 Pregabalin [Lyrica -] 50 mg PO TID MDD 50 mg 04/19/17 Docusate Sodium [Colace -] 300 mg PO HS PRN 08/08/17 Sitagliptin Phosphate [Januvia -] 25 mg PO DAILY@0700 #30 tab 08/15/17 Clopidogrel Bisulfate [Plavix] 75 tab PO DAILY 04/03/18 Multivit-Mins/Iron/Folic/Lycop 1 each PO DAILY 11/15/18 [Centrum Men's Tablet] Sevelamer Carbonate 1,600 mg PO TIDCM 11/15/18 Calcium Carbonate [Tums Ultra] 750 mg PO BID 12/27/18 Metoprolol Tartrate [Lopressor -] 50 mg PO DAILY 12/27/18 REVIEW OF SYSTEMS Negative except in HPI PHYSICAL EXAMINATION Vital Signs - 24 hr 01/29/19 12:15 Temperature 97.9 F Pulse Rate 79 Respiratory 16 Rate Blood Pressure 174/114 H O2 Sat by Pulse 96 Oximetry (%) GENERAL: Awake, alert, and fully oriented, in no acute distress. LUNGS: Breath sounds equal, clear to auscultation bilaterally. No wheezes, and no crackles. No accessory muscle use. HEART: Regular rate and rhythm, normal S1 and S2 without murmur, rub or gallop. ABDOMEN: Soft, mild tenderness to palpation in midepigastrium, globose abdomen due to body habitus, normoactive bowel sounds, no masses. LOWER EXTREMITIES: 2+ pulses, RLE wound wrapped no d/c, warm, well-perfused. No calf tenderness. No peripheral edema. NEUROLOGICAL: Cranial nerves II-XII intact. Normal speech. Normal gait. PSYCHIATRIC: Cooperative. Good eye contact. Appropriate mood and affect. SKIN: Warm, dry, normal turgor, no rashes or lesions noted,multiple wounds per pt, RLE wound visible and non-infected Laboratory Results - last 24 hr 01/29/19 01/29/19 15:19 15:19 WBC 11.9 H RBC 4.03 Hgb 13.0 Hct 39.4 D MCV 97.9 H MCH 32.3 MCHC 33.0 RDW 17.8 H Plt Count 289 D MPV 9.1 Absolute Neuts (auto) 9.8 H Neutrophils % 82.8 Lymphocytes % 7.9 L D Monocytes % 6.4 Eosinophils % 1.8 Basophils % 1.1 Nucleated RBC % 0 Sodium 133 L Potassium 3.9 Chloride 96 L Carbon Dioxide 28 Anion Gap 9 BUN 16.0 Creatinine 4.9 H Est GFR (CKD-EPI)AfAm 14.01 Est GFR (CKD-EPI)NonAf 12.09 Random Glucose 189 H Calcium 8.6 Total Bilirubin 0.7 AST 140 H ALT 99 H Alkaline Phosphatase 94 Creatine Kinase 26 Troponin I 0.04 Total Protein 7.3 Albumin 2.9 L Lipase 192 ASSESSMENT/PLAN: This is a 58 y/o M with a PMHx of ESRD (2/2 long standing diabetes, dialysis on ,,Mon), infection of AV fistula (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 Pt notes its associated brown loose stool but states its chronic. #Intractable vomiting in the setting of ESRD s/p dialysis - possibly 2/2 recent abx use, will holding the antibiotic - Pt tolerating PO - will confirm if this is the antibiotic that pt is taking after the AV fistula infection [facility] - possible underlying severe diabetic gastroparesis - GI consulted (Dr. Dougherty) for possible EGD to evaluate issues with pt's ability to keep food down. - Protonix IV 40Mg BID, 5mg QID renally dosed reglan - rpt cbc to confirm leukocytosis is no longer present #ESRD s/p dialysis - Dr. Hicks consulted - recommending working up the abd pain and advancing the renal diet as tolerated - Dialysis , , Mon DVT ppx: heparin 5K TID Visit type - Emergency Visit Emergency Visit: Yes ED Registration Date: 01/29/19 Care time: The patient presented to the Emergency Department on the above date and was hospitalized for further evaluation of their emergent condition. - New Patient This patient is new to me today: Yes Date on this admission: 01/30/19 - Critical Care Critical Care patient: No ATTENDING PHYSICIAN STATEMENT I saw and evaluated the patient. I reviewed the resident's note and discussed the case with the resident. I agree with the resident's findings and plan as documented. SUBJECTIVE: OBJECTIVE: ASSESSMENT AND PLAN:
[2019-01-30] MEDS: INSULIN SLIDING SCALE (NOVOLOG) 1 VIAL SQ SCH ×3 (08:36→18:13)
[2019-01-30] MEDS: HEPARIN NA (PORCINE) 5,000 UNITS/ML 1ML VIAL SQ SCH ×3 (08:42→21:40)
[2019-01-30] MEDS: SEVELAMER CARBONATE 800 MG TAB (FP) PO SCH ×3 (08:43→18:13)
[2019-01-30] MEDS ORDERED: PREGABALIN 50 MG CAPSULE ONE (08:48)
[2019-01-30] MEDS: PREGABALIN 50 MG CAPSULE PO SCH ×3 (08:49→21:41)
[2019-01-30] MEDS ORDERED: ALBUTEROL SO4 8 GM HFA INHALER IH PRN (10:00)
[2019-01-30] MEDS: METOPROLOL TARTRATE 50 MG TABLET (FP) PO SCH (10:05)
[2019-01-30] MEDS: CALCIUM CARBONATE 650 MG TABLET PO SCH ×2 (10:05→22:41)
[2019-01-30] MEDS: ASPIRIN 81 MG CHEWABLE TABLETS PO SCH (10:05)
[2019-01-30] MEDS: CLOPIDOGREL BISULFATE 75 MG TABLET (FP) PO SCH (10:05)
[2019-01-30] MEDS: PANTOPRAZOLE SODIUM 40 MG VIAL IVPUSH SCH ×2 (10:06→21:40)
[2019-01-30] MEDS: CHOLECALCIFEROL (VIT D3) 1,000 UNIT (25 MCG) TABLET PO SCH (10:06)
[2019-01-30] MEDS: METOCLOPRAMIDE HCL 10 MG TABLET (FP) PO SCH ×2 (10:06→21:41)
[2019-01-30] MEDS: MULTIVITAMINS THER W-MINERALS COMBO TABLET (FP) PO SCH (10:06)
--- NOTE | 2019-01-30 10:48 | EKG ---
Test Reason : Blood Pressure : / mmHG Vent. Rate : 092 BPM Atrial Rate : 091 BPM P-R Int : 000 ms QRS Dur : 108 ms QT Int : 370 ms P-R-T Axes : 000 -64 053 degrees QTc Int : 457 ms ATRIAL FIBRILLATION LEFT AXIS DEVIATION ABNORMAL ECG WHEN COMPARED WITH ECG OF 27-DEC-2018 09:02, ATRIAL FIBRILLATION HAS REPLACED SINUS RHYTHM Confirmed by RAGHAVENDRA RAMIREZ MD ([id number]) on 01/30/2019 10:48:25 AM Referred By: Confirmed By:RAGHAVENDRA RAMIREZ MD
[2019-01-30] MEDS ORDERED: SODIUM CHLORIDE 250 ML IV PRN (11:16)
--- NOTE | 2019-01-30 11:16 | PN ---
Progress Note, Physician History of Present Illness: Pt seen and examined at bedside. He is awake and appears comfortable. He still is not able to keep anything down. - Current Medication List Current Medications: Active Medications Albuterol Sulfate (Ventolin Hfa Inhaler -) 1 puff IH Q6H PRN PRN Reason: SHORTNESS OF BREATH Aspirin (Asa -) 81 mg PO DAILY [facility] Last Admin: 01/30/19 10:05 Dose: 81 mg Atorvastatin Calcium (Lipitor -) 40 mg PO HS [facility] Calcium Carbonate (Calcium Carbonate -) 650 mg PO BID [facility] Last Admin: 01/30/19 10:05 Dose: 650 mg Cholecalciferol (Vitamin D3 -) 2,000 unit PO DAILY [facility] Last Admin: 01/30/19 10:06 Dose: 2,000 unit Clopidogrel Bisulfate (Plavix -) 75 mg PO DAILY [facility] Last Admin: 01/30/19 10:05 Dose: 75 mg Docusate Sodium (Colace -) 300 mg PO HS PRN PRN Reason: CONSTIPATION Heparin Sodium (Porcine) (Heparin -) 5,000 unit SQ TID [facility] Last Admin: 01/30/19 08:42 Dose: 5,000 unit Insulin Aspart (Novolog Vial Sliding Scale -) 1 vial SQ TIDAC [facility]; Protocol Last Admin: 01/30/19 08:36 Dose: Not Given Metoclopramide HCl (Reglan -) 10 mg PO BID [facility] Last Admin: 01/30/19 10:06 Dose: 10 mg Metoprolol Tartrate (Lopressor -) 50 mg PO DAILY [facility] Last Admin: 01/30/19 10:05 Dose: 50 mg Multivitamins/Minerals (Theragran-M) 1 each PO DAILY [facility] Last Admin: 01/30/19 10:06 Dose: 1 each Pantoprazole Sodium (Protonix Iv) 40 mg IVPUSH BID [facility] Last Admin: 01/30/19 10:06 Dose: 40 mg Pregabalin (Lyrica -) 50 mg PO TID [facility] Last Admin: 01/30/19 08:49 Dose: 50 mg Sevelamer Carbonate (Renvela -) 1,600 mg PO TIDCM [facility] Last Admin: 01/30/19 08:43 Dose: 1,600 mg - Objective Vital Signs: Vital Signs Temperature 98.1 F 01/30/19 08:38 Pulse Rate 78 01/30/19 08:38 Respiratory Rate 16 01/30/19 08:38 Blood Pressure 135/69 01/30/19 08:38 O2 Sat by Pulse Oximetry (%) 97 01/30/19 08:38 Constitutional: Yes: Calm Eyes: Yes: Conjunctiva Clear HENT: Yes: Atraumatic Neck: Yes: Supple Cardiovascular: Yes: S1, S2 Respiratory: Yes: CTA Bilaterally Gastrointestinal: Yes: Soft, Abdomen, Obese Genitourinary: Yes: WNL Musculoskeletal: Yes: WNL Edema: Yes Neurological: Yes: Oriented Psychiatric: Yes: Oriented Labs: CBC, BMP 01/29/19 15:19 01/29/19 15:19 Assessment/Plan Current Medications Generic Name Dose Route Start Last Admin Trade Name Freq PRN Reason Stop Dose Admin Albuterol Sulfate 1 puff 01/30/19 10:00 Ventolin Hfa Inhaler - IH Q6H PRN SHORTNESS OF BREATH Aspirin 81 mg 01/30/19 10:00 01/30/19 10:05 Asa - PO 81 mg DAILY [facility] Administration Atorvastatin Calcium 40 mg 01/30/19 22:00 Lipitor - PO HS [facility] Calcium Carbonate 650 mg 01/30/19 10:00 01/30/19 10:05 Calcium Carbonate - PO 650 mg BID [facility] Administration Cholecalciferol 2,000 unit 01/30/19 10:00 01/30/19 10:06 Vitamin D3 - PO 2,000 unit DAILY [facility] Administration Clopidogrel Bisulfate 75 mg 01/30/19 10:00 01/30/19 10:05 Plavix - PO 75 mg DAILY [facility] Administration Docusate Sodium 300 mg 01/30/19 02:10 Colace - PO HS PRN CONSTIPATION Heparin Sodium (Porcine) 5,000 unit 01/30/19 06:00 01/30/19 08:42 Heparin - SQ 5,000 unit TID [facility] Administration Insulin Aspart 1 vial 01/30/19 07:00 01/30/19 08:36 Novolog Vial Sliding Scale - SQ Not Given TIDAC [facility] Protocol Metoclopramide HCl 10 mg 01/30/19 10:00 01/30/19 10:06 Reglan - PO 10 mg BID [facility] Administration Metoprolol Tartrate 50 mg 01/30/19 10:00 01/30/19 10:05 Lopressor - PO 50 mg DAILY [facility] Administration Multivitamins/Minerals 1 each 01/30/19 10:00 01/30/19 10:06 Theragran-M PO 1 each DAILY [facility] Administration Pantoprazole Sodium 40 mg 01/30/19 10:00 01/30/19 10:06 Protonix Iv IVPUSH 40 mg BID [facility] Administration Pregabalin 50 mg 01/30/19 06:00 01/30/19 08:49 Lyrica - PO 50 mg TID [facility] Administration Sevelamer Carbonate 1,600 mg 01/30/19 08:00 01/30/19 08:43 Renvela - PO 1,600 mg TIDCM [facility] Administration Impression 1. ESRD 2. anemia 3. HTN 4. morbid obesity 5. CVA 6. hyperlipidemia 7. proteinuria - nephrotic 8. PVD 9. foot ulcer 10. abd pain 11. vomiting 12. tachycardia Plan - HD tomorrow - reviewed ct report - discussed with medical team - vomiting workup in progress - npo for now, renal diet once eating
--- NOTE | 2019-01-30 12:01 | CON.GI ---
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 Pt reports persisting mid to right sided abdominal pain mostly periumbilical to RUQ over the past 1 month. No radiation to back. Also with intermittent nausea and vomiting with poor po tolerance. States he vomits when attempting to eat though intermittent tolerates certain foods (states had pizza). Had bread earlier this am and tolerated. No blood. Denies dysphagia. Takes prilosec when needed for heartburn,no worsening. At baseline reports bm every 1-2 days though recently reporting 2-3 loose bms daily, denies melena or hematochezia. 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 Last had IV antibiotics on monday. Denies fever/chills. Feels hungry currently, asking to eat. Reports prior EGD before bariatric surgery. Last colonoscopy 5 years ago at ? [facility]. Positive family h/o colon ca (pts uncle). Denies smoking or etoh use. - History Source History Provided By: Patient, Medical Record - Past Medical History MEDICAL CONSULTANT: Yes: CVA Cardio/Vascular: Yes: HTN, Hyperlipdemia Pulmonary: Yes: Sleep Apnea Gastrointestinal: Yes: GERD, Other (obesity) Renal/: Yes: Renal Failure, Renal Inusuff, Hemodialysis, Other Endocrine: Yes: Diabetes Mellitus - Past Surgical History Past Surgical History: Yes: AV Fistula/Graft - Alcohol/Substance Use Hx Alcohol Use: No - Smoking History Smoking history: Never smoked Have you smoked in the past 12 months: No Aproximately how many cigarettes per day: 0 - Social History Usual Living Arrangement: Halfway ADL: Independent History of Recent Travel: No Home Medications - Allergies Allergies/Adverse Reactions: Allergies Allergy/AdvReac Type Severity Reaction Status Date / Time fish derived Allergy Severe Hives Verified 12/27/18 09:24 Shellfish Allergy Severe Verified 12/27/18 09:24 sulfamethoxazole Allergy Severe Swelling Verified 12/27/18 09:24 [From Bactrim DS] trimethoprim Allergy Severe Swelling Verified 12/27/18 09:24 [From Bactrim DS] mupirocin [From Bactroban] Allergy Verified 12/27/18 09:24 - Home Medications Home Medications: Ambulatory Orders Omeprazole [Prilosec (RX)] 20 mg PO DAILY 08/13/14 Atorvastatin Ca [Lipitor] 80 mg PO HS 05/24/16 Albuterol Sulfate [Proair Respiclick] 90 mcg IH DAILY 11/13/16 Cholecalciferol (Vitamin D3) [Vitamin D3] 2,000 unit PO DAILY 11/13/16 Aspirin [ASA -] 81 mg PO DAILY #30 tab.chew 11/15/16 Pregabalin [Lyrica -] 50 mg PO TID MDD 50 mg 04/19/17 Docusate Sodium [Colace -] 300 mg PO HS PRN 08/08/17 Sitagliptin Phosphate [Januvia -] 25 mg PO DAILY@0700 #30 tab 08/15/17 Clopidogrel Bisulfate [Plavix] 75 tab PO DAILY 04/03/18 Multivit-Mins/Iron/Folic/Lycop [Centrum Men's Tablet] 1 each PO DAILY 11/15/18 Sevelamer Carbonate 1,600 mg PO TIDCM 11/15/18 Calcium Carbonate [Tums Ultra] 750 mg PO BID 12/27/18 Metoprolol Tartrate [Lopressor -] 50 mg PO DAILY 12/27/18 Pregabalin [Lyrica] 100 mg TID 01/30/19 Review of Systems - Review of Systems Constitutional: reports: Other Cardiovascular: reports: No Symptoms Respiratory: reports: No Symptoms Gastrointestinal: reports: Abdominal Pain, Nausea, Other (See HPI for details) Physical Exam-GI Vital Signs: Vital Signs Temperature 98.1 F 01/30/19 08:38 Pulse Rate 78 01/30/19 08:38 Respiratory Rate 16 01/30/19 08:38 Blood Pressure 135/69 01/30/19 08:38 O2 Sat by Pulse Oximetry (%) 97 01/30/19 08:38 Constitutional: Yes: No Distress, Calm, Other (Sitting up, appears comfortable) Cardiovascular: Yes: WNL, Regular Rate and Rhythm Respiratory: Yes: WNL, Regular, CTA Bilaterally ...Palpate: Yes: Other (Abd soft, obese, mildly tender in upper abdomen and RUQ on palpation, nondistended, no rebound, guarding or rigidity) Labs: CBC, BMP 01/29/19 15:19 01/29/19 15:19 Imaging - Results Cat Scan: Report Reviewed, Image Reviewed Problem List - Problems (1) Abdominal pain Assessment/Plan: 58yo male h/o PVD on asa/plavix, morbid obesity s/p sleeve gastrectomy 4 years ago ([facility]), DM, ESRD on HD, infection of AV fistula (on 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 Also with loose stool reported. CT revealing gallstones and changes consistent with prior sleeve gastrectomy otherwise no acute findings. Transaminitis noted. Suspect symptoms may be multifactorial in setting of infection and chcf antibiotic use, though cannot exclude hepatobiliary process, esophagitis, gastritis or PUD. No overt bleeding. -Check stool studies for C difficile, ova/parasites, cultures -Check RUQ US -Pending ultrasound, could trial clear liquids -Hepatitis serologies -Closely monitor LFT trend -Avoid nonessential hepatotoxic medications -ID consult and clarify ongoing need for antibiotics -PPI daily -Pending above and reassessment in symptoms may consider EGD to further evaluate -If endoscopy pursued would need to also clarify if plavix can be safely held Code(s): R10.9 - UNSPECIFIED ABDOMINAL PAIN
[2019-01-30 13:09] LABS: EPI CELLS 3.8 /HPF (0-5/HPF); HYALINE CASTS 7 /lpf (0-8); URINE APPEARANCE CLEAR; URINE BACTERIA 21.2 /hpf (NEGATIVE); URINE BILIRUBIN NEGATIVE (NEGATIVE); URINE COLOR YELLOW; URINE GLUCOSE (UA) 1+ (NEGATIVE); URINE KETONE NEGATIVE (NEGATIVE); URINE LEUK ESTERASE 1+ (NEGATIVE); URINE NITRITE NEGATIVE (NEGATIVE); URINE PROTEIN 4+ (NEGATIVE); URINE WBC 46 /hpf (0-5)
--- NOTE | 2019-01-30 17:02 | CON.ID ---
Consult Consult Specialty:: infectious disease Referred by:: hospitalist service Reason for Consultation:: patient on skilled nursing iv antibioitics - History of Present Illness Chief Complaint: nausea, inability to eat History of Present Illness: 58 yo man admitted on 12/[address] [facility] with infected avf- transferred to [facility] with revision of fistula 12/05, picc line placed and he was discharged on 12/14 on 12g oxacillin over 24 hours by pump the first two weeks were okay and then he became unable to eat, loose stools 2 daily has been living on soup he has completed 6 weeks of oxacillin as of Monday- spoke to his ID doc dr swanson who told him he wanted to continue antibiotics another week but patient could not tolerate - was advised to contact ID here after admission patient is unaware of the nature of his infection (organism) or whay antiibotics were extended another week no fevers or chills feels well - History Source History Provided By: Patient Limitations to Obtaining History: No Limitations - Past Medical History 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 sleeve gastrectomy - Alcohol/Substance Use Hx Alcohol Use: No - Smoking History Smoking history: Never smoked Have you smoked in the past 12 months: No Aproximately how many cigarettes per day: 0 - Social History Usual Living Arrangement: Alone ADL: Independent Place of : [facility] History of Recent Travel: No Home Medications - Allergies Allergies/Adverse Reactions: Allergies Allergy/AdvReac Type Severity Reaction Status Date / Time fish derived Allergy Severe Hives Verified 12/27/18 09:24 Shellfish Allergy Severe Verified 12/27/18 09:24 sulfamethoxazole Allergy Severe Swelling Verified 12/27/18 09:24 [From Bactrim DS] trimethoprim Allergy Severe Swelling Verified 12/27/18 09:24 [From Bactrim DS] mupirocin [From Bactroban] Allergy Verified 12/27/18 09:24 - Home Medications Home Medications: Ambulatory Orders Omeprazole [Prilosec (RX)] 20 mg PO DAILY 08/13/14 Atorvastatin Ca [Lipitor] 80 mg PO HS 05/24/16 Albuterol Sulfate [Proair Respiclick] 90 mcg IH DAILY 11/13/16 Cholecalciferol (Vitamin D3) [Vitamin D3] 2,000 unit PO DAILY 11/13/16 Aspirin [ASA -] 81 mg PO DAILY #30 tab.chew 11/15/16 Pregabalin [Lyrica -] 50 mg PO TID MDD 50 mg 04/19/17 Docusate Sodium [Colace -] 300 mg PO HS PRN 08/08/17 Sitagliptin Phosphate [Januvia -] 25 mg PO DAILY@0700 #30 tab 08/15/17 Clopidogrel Bisulfate [Plavix] 75 tab PO DAILY 04/03/18 Multivit-Mins/Iron/Folic/Lycop [Centrum Men's Tablet] 1 each PO DAILY 11/15/18 Sevelamer Carbonate 1,600 mg PO TIDCM 11/15/18 Calcium Carbonate [Tums Ultra] 750 mg PO BID 12/27/18 Metoprolol Tartrate [Lopressor -] 50 mg PO DAILY 12/27/18 Pregabalin [Lyrica] 100 mg TID 01/30/19 Family Medical History Family History: Denies Review of Systems - Review of Systems Constitutional: reports: No Symptoms. denies: Chills, Fever Eyes: reports: No Symptoms HENT: reports: No Symptoms Neck: reports: No Symptoms Cardiovascular: reports: No Symptoms Respiratory: reports: No Symptoms Gastrointestinal: reports: Diarrhea, Nausea Integumentary: reports: Other (small ulcer right [place]) Physical Exam Vital Signs: Vital Signs Temperature 98.1 F 01/30/19 08:38 Pulse Rate 70 01/30/19 12:35 Respiratory Rate 16 01/30/19 12:35 Blood Pressure 125/63 01/30/19 12:35 O2 Sat by Pulse Oximetry (%) 99 01/30/19 12:35 Constitutional: Yes: Well Nourished, No Distress Eyes: Yes: Conjunctiva Clear HENT: Yes: Atraumatic, Normocephalic Neck: Yes: Supple Cardiovascular: Yes: Regular Rate and Rhythm Respiratory: Yes: Regular, CTA Bilaterally Gastrointestinal: Yes: Normal Bowel Sounds, Soft ...Rectal Exam: Yes: Deferred Extremities: Yes: Other (tma well healed, right [place] ulcer 3 by 2 cm clean and shallow- bleeds easily, no purulence no erythema picc line site no erythema, left arm avf no erythema) Neurological: Yes: Alert, Oriented Labs: CBC, BMP 01/29/19 15:19 01/29/19 15:19 blood cultures sent Imaging - Results Chest X-ray: Report Reviewed, Image Reviewed Cat Scan: Report Reviewed Assessment/Plan agree with blood cultures check esr/crp would contact his ID doctor at [place] for futher information abnl lfts may be due to oxacillin d/w hospitalist service
--- NOTE | 2019-01-30 18:30 | PN ---
Teaching Attending Note Name of Resident: Aaron Lomax ATTENDING PHYSICIAN STATEMENT I saw and evaluated the patient. I reviewed the resident's note and discussed the case with the resident. I agree with the resident's findings and plan as documented. SUBJECTIVE: Reports chronic/recurrent vomiting for 1 month - no hematemesis. Associated epigastric pain, no fever/chills. OBJECTIVE: Afebrile, Hemodynamically Stable. Unkempt Last Vital Signs Temp Pulse Resp BP Pulse Ox 98.7 F 86 20 100/71 98 01/30/19 13:00 01/30/19 13:00 01/30/19 13:00 01/30/19 13:00 01/30/19 13:00 HEENT - Atraumatic, normocephalic. Heart - S1, S2, RRR Lungs - distant breath sounds due to chest wall thickness Abdomen - Distended due to Morbid obesity. Epigastric/LUQ tenderness, soft. Bowel sounds normal. Extremities - chronic venous stasis with dermatitis and ulcer anterior aspect of [place] on RLE. LUE AVF with thrill. RUE PICC in situ. Laboratory Results - last 24 hr 01/30/19 01/30/19 01/30/19 07:58 11:18 12:13 POC Glucometer 135 171 Urine Color Yellow Urine Appearance Clear Urine pH 7.0 Ur Specific [place] 1.028 Urine Protein 4+ H Urine Glucose (UA) 1+ H Urine Ketones Negative Urine Blood Negative Urine Nitrite Negative Urine Bilirubin Negative Urine Urobilinogen 1.0 Ur Leukocyte Esterase 1+ H Urine WBC (Auto) 46 Urine RBC (Auto) 3.0 Urine Casts (Auto) 7 U Epithel Cells (Auto) 3.8 Urine Bacteria (Auto) 21.2 01/30/19 18:10 POC Glucometer 173 Urine Color Urine Appearance Urine pH Ur Specific [place] Urine Protein Urine Glucose (UA) Urine Ketones Urine Blood Urine Nitrite Urine Bilirubin Urine Urobilinogen Ur Leukocyte Esterase Urine WBC (Auto) Urine RBC (Auto) Urine Casts (Auto) U Epithel Cells (Auto) Urine Bacteria (Auto) Current Medications Generic Name Dose Route Start Last Admin Trade Name Freq PRN Reason Stop Dose Admin Albuterol Sulfate 1 puff 01/30/19 10:00 Ventolin Hfa Inhaler - IH Q6H PRN SHORTNESS OF BREATH Aspirin 81 mg 01/30/19 10:00 01/30/19 10:05 Asa - PO 81 mg DAILY [facility] Administration Atorvastatin Calcium 40 mg 01/30/19 22:00 Lipitor - PO HS [facility] Calcium Carbonate 650 mg 01/30/19 10:00 01/30/19 10:05 Calcium Carbonate - PO 650 mg BID [facility] Administration Cholecalciferol 2,000 unit 01/30/19 10:00 01/30/19 10:06 Vitamin D3 - PO 2,000 unit DAILY [facility] Administration Clopidogrel Bisulfate 75 mg 01/30/19 10:00 01/30/19 10:05 Plavix - PO 75 mg DAILY [facility] Administration Docusate Sodium 300 mg 01/30/19 02:10 Colace - PO HS PRN CONSTIPATION Heparin Sodium (Porcine) 5,000 unit 01/30/19 06:00 01/30/19 16:01 Heparin - SQ 5,000 unit TID [facility] Administration Sodium Chloride 250 mls @ 3,000 mls/hr 01/30/19 11:16 Normal Saline - IV 01/31/19 11:17 PRN PRN Hypotension during Dialysis Insulin Aspart 1 vial 01/30/19 07:00 01/30/19 18:13 Novolog Vial Sliding Scale - SQ 2 units TIDAC [facility] Administration Protocol Metoclopramide HCl 10 mg 01/30/19 10:00 01/30/19 10:06 Reglan - PO 10 mg BID [facility] Administration Metoprolol Tartrate 50 mg 01/30/19 10:00 01/30/19 10:05 Lopressor - PO 50 mg DAILY [facility] Administration Multivitamins/Minerals 1 each 01/30/19 10:00 01/30/19 10:06 Theragran-M PO 1 each DAILY [facility] Administration Pantoprazole Sodium 40 mg 01/30/19 10:00 01/30/19 10:06 Protonix Iv IVPUSH 40 mg BID [facility] Administration Pregabalin 50 mg 01/30/19 06:00 01/30/19 16:01 Lyrica - PO 50 mg TID [facility] Administration Sevelamer Carbonate 1,600 mg 01/30/19 08:00 01/30/19 18:13 Renvela - PO 1,600 mg TIDCM [facility] Administration Home Medications Medication Instructions Recorded Omeprazole [Prilosec (RX)] 20 mg PO DAILY 08/13/14 Atorvastatin Ca [Lipitor] 80 mg PO HS 05/24/16 Albuterol Sulfate [Proair 90 mcg IH DAILY 11/13/16 Respiclick] Cholecalciferol (Vitamin D3) 2,000 unit PO DAILY 11/13/16 [Vitamin D3] Aspirin [ASA -] 81 mg PO DAILY #30 tab.chew 11/15/16 Pregabalin [Lyrica -] 50 mg PO TID MDD 50 mg 04/19/17 Docusate Sodium [Colace -] 300 mg PO HS PRN 08/08/17 Sitagliptin Phosphate [Januvia -] 25 mg PO DAILY@0700 #30 tab 08/15/17 Clopidogrel Bisulfate [Plavix] 75 tab PO DAILY 04/03/18 Multivit-Mins/Iron/Folic/Lycop 1 each PO DAILY 11/15/18 [Centrum Men's Tablet] Sevelamer Carbonate 1,600 mg PO TIDCM 11/15/18 Calcium Carbonate [Tums Ultra] 750 mg PO BID 12/27/18 Metoprolol Tartrate [Lopressor -] 50 mg PO DAILY 12/27/18 Pregabalin [Lyrica] 100 mg TID 01/30/19 ASSESSMENT AND PLAN: 58 year old male with history of ESRD on HD via LUE AVF, Asthma, CVA, DM 2, HLD , PVD, Hx of Infected AVF on IV Oxacillin for the past 6 weeks (self stopped ) due to 4 week history of intractable/chronic/recurrent emesis, now associated with Epigastric/LUQ pain and loose stool. No melena/hematochezia/ hematemesis. CT A/P - cholelithiasis, s/p gastric sleeve, bilateral renal atrophy. 1. Intractable Vomiting Etiology unclear - antibiotic intolerance versus Gastritis versus Gastroparesis versus Gastric Sleeve related outlet obstruction GI consulted for EGD (patient was lept NPO) but EGD not done, reasons unclear. Will request Utox. Stool studies for reported loose stool (not watery or bloody as per patient) Anti-emetics - Reglan IV PPI 2. ESRD on HD vis LUE AVF Nephrology following. s/p HD 01/29 - for HD 01/31 Continue Sevelemer 3. AVF Infection - being treated with 6 weeks IV oxaclllin via RUE PICC by Infectious Disease (Dr. Jernigan) at [facility]. Self-stopped Abx 2 days ago, 1 week prior to recommended end-date ID consulted. 4. DM 2 - Hold oral anti-hyperglycemics. Novolog as per s/scale. 5. HTN - BP borderline. Will resume anti-hypertensive medication Metoprolol when necessary. 6. HLD - Statin held due to elevated transaminases. 7. Elevated Transaminases ? sec to fatty liver vs Abx vs Statin. RUQ US requested. Hepatitis serologies requested by GI. Statin held. DVT Px - Heparin SQ Gi Px -IV PPI
--- NOTE | 2019-01-30 18:47 | PN ---
Physical Exam: SUBJECTIVE: Patient seen and examined in the morning. No acute events overnight. No complaints of chest pain, shortness of breath, abdominal pain, nausea, vomiting, diarrhea. OBJECTIVE: Vital Signs Period Temp Pulse Resp BP Sys/Leon Pulse Ox Last 24 Hr 95 F-98.7 F 70-87 16-20 100-135/63-76 95-99 GENERAL: Awake, alert, and fully oriented, in no acute distress. LUNGS: Breath sounds equal, clear to auscultation bilaterally. No wheezes, and no crackles. No accessory muscle use. HEART: Regular rate and rhythm, normal S1 and S2 without murmur, rub or gallop. ABDOMEN: Soft, tender to palpation in right upper and left quadrant, normoactive bowel sounds, no masses. LOWER EXTREMITIES: 2+ pulses, RLE wound wrapped no d/c, warm, well-perfused. Left foot has all 5 toes amputated. No calf tenderness. No peripheral edema. NEUROLOGICAL: Cranial nerves II-XII intact. Normal speech. Normal gait. PSYCHIATRIC: Cooperative. Good eye contact. Appropriate mood and affect. SKIN: Warm, dry, normal turgor, no rashes or lesions noted,multiple wounds per pt, RLE wound visible and non-infected Laboratory Results - last 24 hr 01/30/19 01/30/19 01/30/19 07:58 11:18 12:13 POC Glucometer 135 171 Urine Color Yellow Urine Appearance Clear Urine pH 7.0 Ur Specific [place] 1.028 Urine Protein 4+ H Urine Glucose (UA) 1+ H Urine Ketones Negative Urine Blood Negative Urine Nitrite Negative Urine Bilirubin Negative Urine Urobilinogen 1.0 Ur Leukocyte Esterase 1+ H Urine WBC (Auto) 46 Urine RBC (Auto) 3.0 Urine Casts (Auto) 7 U Epithel Cells (Auto) 3.8 Urine Bacteria (Auto) 21.2 Active Medications Generic Name Dose Route Start Last Admin Trade Name Freq PRN Reason Stop Dose Admin Albuterol Sulfate 1 puff 01/30/19 10:00 Ventolin Hfa Inhaler - IH Q6H PRN SHORTNESS OF BREATH Aspirin 81 mg 01/30/19 10:00 01/30/19 10:05 Asa - PO 81 mg DAILY [facility] Administration Atorvastatin Calcium 40 mg 01/30/19 22:00 Lipitor - PO HS [facility] Calcium Carbonate 650 mg 01/30/19 10:00 01/30/19 10:05 Calcium Carbonate - PO 650 mg BID [facility] Administration Cholecalciferol 2,000 unit 01/30/19 10:00 01/30/19 10:06 Vitamin D3 - PO 2,000 unit DAILY [facility] Administration Clopidogrel Bisulfate 75 mg 01/30/19 10:00 01/30/19 10:05 Plavix - PO 75 mg DAILY [facility] Administration Docusate Sodium 300 mg 01/30/19 02:10 Colace - PO HS PRN CONSTIPATION Heparin Sodium (Porcine) 5,000 unit 01/30/19 06:00 01/30/19 16:01 Heparin - SQ 5,000 unit TID [facility] Administration Sodium Chloride 250 mls @ 3,000 mls/hr 01/30/19 11:16 Normal Saline - IV 01/31/19 11:17 PRN PRN Hypotension during Dialysis Insulin Aspart 1 vial 01/30/19 07:00 01/30/19 11:35 Novolog Vial Sliding Scale - SQ Not Given [facility] Protocol Metoclopramide HCl 10 mg 01/30/19 10:00 01/30/19 10:06 Reglan - PO 10 mg BID [facility] Administration Metoprolol Tartrate 50 mg 01/30/19 10:00 01/30/19 10:05 Lopressor - PO 50 mg DAILY [facility] Administration Multivitamins/Minerals 1 each 01/30/19 10:00 01/30/19 10:06 Theragran-M PO 1 each DAILY [facility] Administration Pantoprazole Sodium 40 mg 01/30/19 10:00 01/30/19 10:06 Protonix Iv IVPUSH 40 mg BID [facility] Administration Pregabalin 50 mg 01/30/19 06:00 01/30/19 16:01 Lyrica - PO 50 mg TID [facility] Administration Sevelamer Carbonate 1,600 mg 01/30/19 08:00 01/30/19 12:30 Renvela - PO 1,600 mg TIDCM [facility] Administration ASSESSMENT/PLAN: 58 M with PMH of ESRD (Dialysis on , Monday), infection of AV fistula, morbid obestity, anemia, who presented with nausea and vomiting and abdominal pain for the last 6 weeks. 1) Intractable vomiting -No diarrhea, only loose stools as per patient. -RUQ pain -F/U RUQ US -F/U stool studies -F/U Hepatitis panel -Trend LFT -GI consulted, appreciate recs -Possible endoscopy. If endoscopy required will need to discuss holding Plavix. -Reglan antiemetic. 2)On outpatient IV Abx -Patient was taking Oxacillin IV 12 gram daily x6 weeks. Last dose was January 25. Was initially hospitalized on 12/10-12/18 for MSSA bacteremia. Patient was being treated for 6 weeks due to previous history of blood stream infxn which was suspicious for endocarditis. Echo was later done which did not show any vegetations. Continued with current course. Wanted to continue for 1 more week but unable to tolerate. -Patient was supposed to follow up with Dr. Martinez at [facility] ID clinic. -Patient was not able to tolerate PO intake on his last 4 weeks of IV abx 3)ESRD s/p dialysis (, , Monday) -HD tomorrow. 4) DM 2 - Insulin sliding scale. 5)HTN -Metoprolol 10 mg BID 6)HLD -Elevated transaminases, hold statin DVT prophlaxis: Heparing 5K TID F: Oral hydration E: Monitor BMP N: Clears, advance to soft if tolerate Visit type - Emergency Visit Emergency Visit: Yes ED Registration Date: 01/29/19 Care time: The patient presented to the Emergency Department on the above date and was hospitalized for further evaluation of their emergent condition. - New Patient This patient is new to me today: Yes Date on this admission: 01/30/19 - Critical Care Critical Care patient: No ATTENDING PHYSICIAN STATEMENT I saw and evaluated the patient. I reviewed the resident's note and discussed the case with the resident. I agree with the resident's findings and plan as documented. SUBJECTIVE: OBJECTIVE: ASSESSMENT AND PLAN:
[2019-01-30] MEDS ORDERED: PT OWN MED DRAWER 7, Y5N ONE (20:57)
[2019-01-30] MEDS ORDERED: ATORVASTATIN CA 40 MG TABLET (FP) PO SCH (22:00)
[2019-01-30] MEDS ORDERED: ATORVASTATIN CA 80 MG TABLET (FP) PO SCH (22:00)
[2019-01-31] MEDS: HEPARIN NA (PORCINE) 5,000 UNITS/ML 1ML VIAL SQ SCH ×3 (07:00→21:50)
[2019-01-31] MEDS: INSULIN SLIDING SCALE (NOVOLOG) 1 VIAL SQ SCH ×3 (07:00→17:16)
[2019-01-31] MEDS: PREGABALIN 50 MG CAPSULE PO SCH ×3 (07:00→21:50)
[2019-01-31] MEDS ORDERED: HEPARIN NA (PORCINE) 5,000 UNITS/ML 1ML VIAL IVPUSH ONE (08:00)
[2019-01-31 08:44] LABS: EOS % 5.6 % (0-4.5); HEMOGLOBIN 11.5 GM/dL (11.7-16.9); LYMPH % 14.7 % (8-40); MCH 33.2 pg (25.7-33.7); MCHC 33.7 g/dl (32.0-35.9); MEAN CELL VOLUME 98.8 fl (80-96); MEAN PLT VOLUME 9.5 fl (7.5-11.1); MONO % 6.8 % (3.8-10.2); NEUT % 71.9 % (42.8-82.8); PLATELET COUNT 216 K/MM3 (134-434); RBC 3.44 M/mm3 (4.00-5.60); RDW 18.6 % (11.9-15.9); WHITE BLOOD COUNT 9.1 K/mm3 (4.0-10.0)
[2019-01-31] MEDS: HEPARIN NA (PORCINE) 5,000 UNITS/ML 1ML VIAL IVPUSH SCH ×4 (09:00→11:50)
--- NOTE | 2019-01-31 10:04 | PN ---
Progress Note (short form) - Note Progress Note: chart reviewed coverage no abdominal pain, nausea, diarrhea in dialysis, wanting to eat R> advance diet for EGD Monday once medically cleared
[2019-01-31 10:05] LABS: ALBUMIN 2.6 g/dl (3.4-5.0); BILIRUBIN,TOTAL 0.9 mg/dL (0.2-1); BLOOD UREA NITROGEN 32.2 mg/dL (7-18); CALCIUM 8.6 mg/dL (8.5-10.1); TOT PROT 6.3 g/dl (6.4-8.2)
[2019-01-31 11:08] VITALS: BMI 44.2
[2019-01-31] MEDS: SEVELAMER CARBONATE 800 MG TAB (FP) PO SCH ×3 (12:47→17:17)
[2019-01-31] MEDS: PANTOPRAZOLE SODIUM 40 MG VIAL IVPUSH SCH ×2 (13:22→21:49)
[2019-01-31] MEDS: CHOLECALCIFEROL (VIT D3) 1,000 UNIT (25 MCG) TABLET PO SCH (13:22)
[2019-01-31] MEDS: METOPROLOL TARTRATE 50 MG TABLET (FP) PO SCH (13:23)
[2019-01-31] MEDS: MULTIVITAMINS THER W-MINERALS COMBO TABLET (FP) PO SCH (13:24)
[2019-01-31] MEDS: CALCIUM CARBONATE 650 MG TABLET PO SCH ×2 (13:24→21:50)
[2019-01-31] MEDS: METOCLOPRAMIDE HCL 10 MG TABLET (FP) PO SCH ×2 (13:26→21:51)
--- NOTE | 2019-01-31 17:04 | PN ---
Progress Note (short form) - Note Progress Note: SUBJECTIVE: No vomiting episodes since admission - no regurgitation/emesis/ hematemesis. No fever/chills. 1 episode loose stool - no melena/hematochezia. OBJECTIVE: Afebrile, Hemodynamically Stable. Unkempt. interview and Exam today during HD, tolerating well Last Vital Signs Temp Pulse Resp BP Pulse Ox 98.3 F 85 18 121/79 98 01/31/19 07:25 01/31/19 12:00 01/31/19 12:00 01/31/19 12:00 01/30/19 21:00 Heart - S1, S2, RRR Lungs - distant breath sounds due to chest wall thickness Abdomen - Distended due to Morbid obesity. Epigastric/LUQ tenderness, soft. Bowel sounds normal. Extremities - chronic venous stasis with dermatitis and ulcer anterior aspect of [place] on RLE. Undergoing HD via LUE AVF. RUE PICC in situ. Laboratory Results - last 24 hr 01/30/19 01/30/19 01/31/19 18:10 21:38 06:58 WBC RBC Hgb Hct MCV MCH MCHC RDW Plt Count MPV Absolute Neuts (auto) Neutrophils % Lymphocytes % Monocytes % Eosinophils % Basophils % Nucleated RBC % ESR Sodium Potassium Chloride Carbon Dioxide Anion Gap BUN Creatinine Est GFR (CKD-EPI)AfAm Est GFR (CKD-EPI)NonAf POC Glucometer 173 126 108 Random Glucose Calcium Total Bilirubin AST ALT Alkaline Phosphatase C-Reactive Protein Total Protein Albumin 01/31/19 01/31/19 01/31/19 07:30 07:30 07:30 WBC 9.1 RBC 3.44 L Hgb 11.5 L Hct 34.0 L MCV 98.8 H MCH 33.2 MCHC 33.7 RDW 18.6 H Plt Count 216 D MPV 9.5 Absolute Neuts (auto) 6.5 Neutrophils % 71.9 Lymphocytes % 14.7 D Monocytes % 6.8 Eosinophils % 5.6 H D Basophils % 1.0 Nucleated RBC % 0 ESR 73 H Sodium 136 Potassium 4.0 Chloride 98 Carbon Dioxide 26 Anion Gap 12 BUN 32.2 H Creatinine 8.0 H* Est GFR (CKD-EPI)AfAm 7.75 Est GFR (CKD-EPI)NonAf 6.69 POC Glucometer Random Glucose 129 H Calcium 8.6 Total Bilirubin 0.9 AST 115 H ALT 82 H Alkaline Phosphatase 77 C-Reactive Protein 1.8 H Total Protein 6.3 L Albumin 2.6 L 01/31/19 13:27 WBC RBC Hgb Hct MCV MCH MCHC RDW Plt Count MPV Absolute Neuts (auto) Neutrophils % Lymphocytes % Monocytes % Eosinophils % Basophils % Nucleated RBC % ESR Sodium Potassium Chloride Carbon Dioxide Anion Gap BUN Creatinine Est GFR (CKD-EPI)AfAm Est GFR (CKD-EPI)NonAf POC Glucometer 232 Random Glucose Calcium Total Bilirubin AST ALT Alkaline Phosphatase C-Reactive Protein Total Protein Albumin Current Medications Generic Name Dose Route Start Last Admin Trade Name Freq PRN Reason Stop Dose Admin Albuterol Sulfate 1 puff 01/30/19 10:00 Ventolin Hfa Inhaler - IH Q6H PRN SHORTNESS OF BREATH Aspirin 81 mg 01/30/19 10:00 01/30/19 10:05 Asa - PO 81 mg DAILY [facility] Administration Calcium Carbonate 650 mg 01/30/19 10:00 01/31/19 13:24 Calcium Carbonate - PO 650 mg BID [facility] Administration Cholecalciferol 2,000 unit 01/30/19 10:00 01/31/19 13:22 Vitamin D3 - PO 2,000 unit DAILY [facility] Administration Clopidogrel Bisulfate 75 mg 01/30/19 10:00 01/30/19 10:05 Plavix - PO 75 mg DAILY [facility] Administration Docusate Sodium 300 mg 01/30/19 02:10 Colace - PO HS PRN CONSTIPATION Heparin Sodium (Porcine) 5,000 unit 01/30/19 06:00 01/31/19 13:24 Heparin - SQ 5,000 unit TID [facility] Administration Sodium Chloride 250 mls @ 3,000 mls/hr 01/30/19 11:16 Normal Saline - IV 01/31/19 11:17 PRN PRN Hypotension during Dialysis Insulin Aspart 1 vial 01/30/19 07:00 01/31/19 13:30 Novolog Vial Sliding Scale - SQ 4 units TIDAC [facility] Administration Protocol Metoclopramide HCl 10 mg 01/30/19 10:00 01/31/19 13:26 Reglan - PO 10 mg BID [facility] Administration Metoprolol Tartrate 50 mg 01/30/19 10:00 01/31/19 13:23 Lopressor - PO 50 mg DAILY [facility] Administration Multivitamins/Minerals 1 each 01/30/19 10:00 01/31/19 13:24 Theragran-M PO 1 each DAILY [facility] Administration Pantoprazole Sodium 40 mg 01/30/19 10:00 01/31/19 13:22 Protonix Iv IVPUSH 40 mg BID [facility] Administration Pregabalin 50 mg 01/30/19 06:00 01/31/19 13:22 Lyrica - PO 50 mg TID [facility] Administration Sevelamer Carbonate 1,600 mg 01/30/19 08:00 01/31/19 13:23 Renvela - PO 1,600 mg TIDCM [facility] Administration Home Medications Medication Instructions Recorded Omeprazole [Prilosec (RX)] 20 mg PO DAILY 08/13/14 Atorvastatin Ca [Lipitor] 80 mg PO HS 05/24/16 Albuterol Sulfate [Proair 90 mcg IH DAILY 11/13/16 Respiclick] Cholecalciferol (Vitamin D3) 2,000 unit PO DAILY 11/13/16 [Vitamin D3] Aspirin [ASA -] 81 mg PO DAILY #30 tab.chew 11/15/16 Pregabalin [Lyrica -] 50 mg PO TID MDD 50 mg 04/19/17 Docusate Sodium [Colace -] 300 mg PO HS PRN 08/08/17 Sitagliptin Phosphate [Januvia -] 25 mg PO DAILY@0700 #30 tab 08/15/17 Clopidogrel Bisulfate [Plavix] 75 tab PO DAILY 04/03/18 Multivit-Mins/Iron/Folic/Lycop 1 each PO DAILY 11/15/18 [Centrum Men's Tablet] Sevelamer Carbonate 1,600 mg PO TIDCM 11/15/18 Calcium Carbonate [Tums Ultra] 750 mg PO BID 12/27/18 Metoprolol Tartrate [Lopressor -] 50 mg PO DAILY 12/27/18 Pregabalin [Lyrica] 100 mg TID 01/30/19 ASSESSMENT AND PLAN: 58 year old male with history of ESRD on HD via LUE AVF, Asthma, Hx CVA, DM 2, HLD, PVD, Hx of Infected AVF on IV Oxacillin for the past 6 weeks (self stopped 01/28) due to 4 week history of intractable/chronic/recurrent emesis, now associated with Epigastric/LUQ pain and loose stool. No melena/hematochezia/ hematemesis. CT A/P - cholelithiasis, s/p gastric sleeve, bilateral renal atrophy. 1. Intractable Vomiting - no further vomiting episodes since admission. Etiology unclear - antibiotic intolerance versus Gastritis versus Gastroparesis versus Gastric Sleeve related outlet obstruction GI consulted for EGD (patient was lept NPO) but EGD not done, reasons unclear. Re-eval by GI today - diet advanced as patient is requesting regular consistency food, turkey specifically. EGD postponed for another 4 days as per GI. Will hold Aspirin/Clopidogrel pending EGD. Upper GI series to exclude outlet obstruction. Stool studies for reported loose stool (not watery or bloody as per patient) - neg so far. Cdiff not sent, unclear why. Anti-emetics - Reglan IV PPI 2. ESRD on HD via LUE AVF Nephrology following. HD today Continue Sevelemer 3. AVF Infection - being treated with 6 weeks IV oxaclllin via RUE PICC by Infectious Disease (Dr. Jernigan) at [facility] [place]. Self-stopped Abx 2 days ago, 1 week prior to recommended end-date. ID following. 4. DM 2 - Hold oral anti-hyperglycemics. Novolog as per s/scale. 5. HTN - BP borderline. Resumed on home anti-hypertensive medication Metoprolol - low threshold for holding if BP borderline. 6. HLD - Statin held due to elevated transaminases. 7. Elevated Transaminases ? sec to fatty liver vs Abx vs Statin. RUQ US requested. Hepatitis serologies requested by GI are pending. Statin held. DVT Px - Heparin SQ Gi Px - IV PPI Visit type - Emergency Visit Emergency Visit: Yes ED Registration Date: 01/29/19 Care time: The patient presented to the Emergency Department on the above date and was hospitalized for further evaluation of their emergent condition. - New Patient This patient is new to me today: No - Critical Care Critical Care patient: No - Discharge Referral Referred to [facility] No
[2019-01-31] MEDS: ASPIRIN 81 MG CHEWABLE TABLETS PO SCH (17:16)
[2019-01-31] MEDS: CLOPIDOGREL BISULFATE 75 MG TABLET (FP) PO SCH (17:16)
--- NOTE | 2019-01-31 19:22 | PN ---
Progress Note, Physician History of Present Illness: Pt seen and examined at bedside. He tolerated HD today. - Current Medication List Current Medications: Active Medications Albuterol Sulfate (Ventolin Hfa Inhaler -) 1 puff IH Q6H PRN PRN Reason: SHORTNESS OF BREATH Aspirin (Asa -) 81 mg PO DAILY [facility] Last Admin: 01/31/19 17:16 Dose: Not Given Calcium Carbonate (Calcium Carbonate -) 650 mg PO BID [facility] Last Admin: 01/31/19 13:24 Dose: 650 mg Cholecalciferol (Vitamin D3 -) 2,000 unit PO DAILY [facility] Last Admin: 01/31/19 13:22 Dose: 2,000 unit Clopidogrel Bisulfate (Plavix -) 75 mg PO DAILY [facility] Last Admin: 01/31/19 17:16 Dose: Not Given Docusate Sodium (Colace -) 300 mg PO HS PRN PRN Reason: CONSTIPATION Heparin Sodium (Porcine) (Heparin -) 5,000 unit SQ BID [facility] Sodium Chloride (Normal Saline -) 250 mls @ 3,000 mls/hr IV PRN PRN PRN Reason: Hypotension during Dialysis Stop: 01/31/19 11:17 Insulin Aspart (Novolog Vial Sliding Scale -) 1 vial SQ TIDAC [facility]; Protocol Last Admin: 01/31/19 17:16 Dose: Not Given Metoclopramide HCl (Reglan -) 10 mg PO BID [facility] Last Admin: 01/31/19 13:26 Dose: 10 mg Metoprolol Tartrate (Lopressor -) 50 mg PO DAILY [facility] Last Admin: 01/31/19 13:23 Dose: 50 mg Multivitamins/Minerals (Theragran-M) 1 each PO DAILY [facility] Last Admin: 01/31/19 13:24 Dose: 1 each Pantoprazole Sodium (Protonix Iv) 40 mg IVPUSH BID [facility] Last Admin: 01/31/19 13:22 Dose: 40 mg Pregabalin (Lyrica -) 50 mg PO TID [facility] Last Admin: 01/31/19 13:22 Dose: 50 mg Sevelamer Carbonate (Renvela -) 1,600 mg PO TIDCM [facility] Last Admin: 01/31/19 17:17 Dose: 1,600 mg - Objective Vital Signs: Vital Signs Temperature 99.1 F 01/31/19 10:00 Pulse Rate 85 01/31/19 12:00 Respiratory Rate 18 01/31/19 12:00 Blood Pressure 121/79 01/31/19 12:00 O2 Sat by Pulse Oximetry (%) 98 01/31/19 09:00 Constitutional: Yes: Calm Eyes: Yes: Conjunctiva Clear HENT: Yes: Atraumatic Neck: Yes: Supple Cardiovascular: Yes: S1, S2 Respiratory: Yes: CTA Bilaterally Gastrointestinal: Yes: Soft, Abdomen, Obese Genitourinary: Yes: WNL Musculoskeletal: Yes: WNL Edema: Yes Edema: LLE: 1+, RLE: 1+ Neurological: Yes: Oriented Psychiatric: Yes: Oriented Labs: CBC, BMP 01/31/19 07:30 01/31/19 07:30 Assessment/Plan Current Medications Generic Name Dose Route Start Last Admin Trade Name Freq PRN Reason Stop Dose Admin Albuterol Sulfate 1 puff 01/30/19 10:00 Ventolin Hfa Inhaler - IH Q6H PRN SHORTNESS OF BREATH Aspirin 81 mg 01/30/19 10:00 01/31/19 17:16 Asa - PO Not Given DAILY [facility] Calcium Carbonate 650 mg 01/30/19 10:00 01/31/19 13:24 Calcium Carbonate - PO 650 mg BID [facility] Administration Cholecalciferol 2,000 unit 01/30/19 10:00 01/31/19 13:22 Vitamin D3 - PO 2,000 unit DAILY [facility] Administration Clopidogrel Bisulfate 75 mg 01/30/19 10:00 01/31/19 17:16 Plavix - PO Not Given DAILY [facility] Docusate Sodium 300 mg 01/30/19 02:10 Colace - PO HS PRN CONSTIPATION Heparin Sodium (Porcine) 5,000 unit 01/31/19 22:00 Heparin - SQ BID [facility] Sodium Chloride 250 mls @ 3,000 mls/hr 01/30/19 11:16 Normal Saline - IV 01/31/19 11:17 PRN PRN Hypotension during Dialysis Insulin Aspart 1 vial 01/30/19 07:00 01/31/19 17:16 Novolog Vial Sliding Scale - SQ Not Given TIDAC [facility] Protocol Metoclopramide HCl 10 mg 01/30/19 10:00 01/31/19 13:26 Reglan - PO 10 mg BID [facility] Administration Metoprolol Tartrate 50 mg 01/30/19 10:00 01/31/19 13:23 Lopressor - PO 50 mg DAILY [facility] Administration Multivitamins/Minerals 1 each 01/30/19 10:00 01/31/19 13:24 Theragran-M PO 1 each DAILY [facility] Administration Pantoprazole Sodium 40 mg 01/30/19 10:00 01/31/19 13:22 Protonix Iv IVPUSH 40 mg BID [facility] Administration Pregabalin 50 mg 01/30/19 06:00 01/31/19 13:22 Lyrica - PO 50 mg TID [facility] Administration Sevelamer Carbonate 1,600 mg 01/30/19 08:00 01/31/19 17:17 Renvela - PO 1,600 mg TIDCM [facility] Administration Impression 1. ESRD 2. anemia 3. HTN 4. morbid obesity 5. CVA 6. hyperlipidemia 7. proteinuria - nephrotic 8. PVD 9. foot ulcer 10. abd pain 11. vomiting 12. tachycardia Plan - HD today - had to use heparin as he clotted the system - next HD on Sat - GI follow up - pt tolerating diet
[2019-02-01] MEDS: PREGABALIN 50 MG CAPSULE PO SCH ×2 (05:37→14:15)
[2019-02-01] MEDS: INSULIN SLIDING SCALE (NOVOLOG) 1 VIAL SQ SCH ×2 (06:07→13:05)
[2019-02-01] MEDS: SEVELAMER CARBONATE 800 MG TAB (FP) PO SCH ×2 (08:55→12:31)
--- NOTE | 2019-02-01 11:55 | PN ---
Teaching Attending Note Name of Resident: Aaron Lomax ATTENDING PHYSICIAN STATEMENT I saw and evaluated the patient. I reviewed the resident's note and discussed the case with the resident. I agree with the resident's findings and plan as documented. SUBJECTIVE: No vomiting episodes since admission - no regurgitation/emesis/ hematemesis. No fever/chills. 1 episode loose stool - no melena/hematochezia. Tolerating diet well OBJECTIVE: Afebrile, Hemodynamically Stable. Unkempt. Last Vital Signs Temp Pulse Resp BP Pulse Ox 97.9 F 68 18 120/84 98 02/01/19 06:20 02/01/19 06:20 02/01/19 08:53 02/01/19 06:20 02/01/19 08:53 Heart - S1, S2, RRR Lungs - distant breath sounds due to chest wall thickness Abdomen - Distended due to Morbid obesity. Epigastric/LUQ tenderness, soft. Bowel sounds normal. Extremities - chronic venous stasis with dermatitis and ulcer anterior aspect of [place] on RLE. Undergoing HD via LUE AVF. RUE PICC in situ. Laboratory Results - last 24 hr 01/30/19 01/31/19 01/31/19 16:45 13:27 17:15 POC Glucometer 232 129 Hep A IgM Ab Confirm Negative Hep Bs Antigen Negative Hep B Core IgM Ab Negative Hepatitis C Ab (EIA) 0.1 02/01/19 05:35 POC Glucometer 182 Hep A IgM Ab Confirm Hep Bs Antigen Hep B Core IgM Ab Hepatitis C Ab (EIA) Current Medications Generic Name Dose Route Start Last Admin Trade Name Freq PRN Reason Stop Dose Admin Albuterol Sulfate 1 puff 01/30/19 10:00 Ventolin Hfa Inhaler - IH Q6H PRN SHORTNESS OF BREATH Aspirin 81 mg 01/30/19 10:00 01/31/19 17:16 Asa - PO Not Given DAILY [facility] Calcium Carbonate 650 mg 01/30/19 10:00 01/31/19 21:50 Calcium Carbonate - PO 650 mg BID [facility] Administration Cholecalciferol 2,000 unit 01/30/19 10:00 01/31/19 13:22 Vitamin D3 - PO 2,000 unit DAILY [facility] Administration Clopidogrel Bisulfate 75 mg 01/30/19 10:00 01/31/19 17:16 Plavix - PO Not Given DAILY [facility] Docusate Sodium 300 mg 01/30/19 02:10 01/31/19 21:50 Colace - PO 300 mg HS PRN Administration CONSTIPATION Heparin Sodium (Porcine) 5,000 unit 01/31/19 22:00 01/31/19 21:50 Heparin - SQ 5,000 unit BID [facility] Administration Sodium Chloride 250 mls @ 3,000 mls/hr 01/30/19 11:16 Normal Saline - IV 01/31/19 11:17 PRN PRN Hypotension during Dialysis Insulin Aspart 1 vial 01/30/19 07:00 02/01/19 06:07 Novolog Vial Sliding Scale - SQ 2 units TIDAC [facility] Administration Protocol Metoclopramide HCl 10 mg 01/30/19 10:00 01/31/19 21:51 Reglan - PO 10 mg BID [facility] Administration Metoprolol Tartrate 50 mg 01/30/19 10:00 01/31/19 13:23 Lopressor - PO 50 mg DAILY [facility] Administration Multivitamins/Minerals 1 each 01/30/19 10:00 01/31/19 13:24 Theragran-M PO 1 each DAILY [facility] Administration Pantoprazole Sodium 40 mg 01/30/19 10:00 01/31/19 21:49 Protonix Iv IVPUSH 40 mg BID [facility] Administration Pregabalin 50 mg 01/30/19 06:00 02/01/19 05:37 Lyrica - PO 50 mg TID [facility] Administration Sevelamer Carbonate 1,600 mg 01/30/19 08:00 02/01/19 08:55 Renvela - PO Not Given TIDCM [facility] Home Medications Medication Instructions Recorded Omeprazole [Prilosec (RX)] 20 mg PO DAILY 08/13/14 Atorvastatin Ca [Lipitor] 80 mg PO HS 05/24/16 Albuterol Sulfate [Proair 90 mcg IH DAILY 11/13/16 Respiclick] Cholecalciferol (Vitamin D3) 2,000 unit PO DAILY 11/13/16 [Vitamin D3] Aspirin [ASA -] 81 mg PO DAILY #30 tab.chew 11/15/16 Pregabalin [Lyrica -] 50 mg PO TID [facility] 50 mg 04/19/17 Docusate Sodium [Colace -] 300 mg PO HS PRN 08/08/17 Sitagliptin Phosphate [Januvia -] 25 mg PO DAILY@0700 #30 tab 08/15/17 Clopidogrel Bisulfate [Plavix] 75 tab PO DAILY 04/03/18 Multivit-Mins/Iron/Folic/Lycop 1 each PO DAILY 11/15/18 [Centrum Men's Tablet] Sevelamer Carbonate 1,600 mg PO TIDCM 11/15/18 Calcium Carbonate [Tums Ultra] 750 mg PO BID 12/27/18 Metoprolol Tartrate [Lopressor -] 50 mg PO DAILY 12/27/18 Pregabalin [Lyrica] 100 mg TID 01/30/19 ASSESSMENT AND PLAN: 58 year old male with history of ESRD on HD via LUE AVF, Asthma, Hx CVA, DM 2, HLD, PVD, Hx of Infected AVF on IV Oxacillin for the past 6 weeks (self stopped 01/28) due to 4 week history of intractable/chronic/recurrent emesis, now associated with Epigastric/LUQ pain and loose stool. No melena/hematochezia/ hematemesis. CT A/P - cholelithiasis, s/p gastric sleeve, bilateral renal atrophy. 1. Intractable Vomiting - no further vomiting episodes since admission. Etiology unclear - antibiotic intolerance versus Gastritis versus Gastroparesis versus Gastric Sleeve related outlet obstruction GI consulted for EGD (patient was lept NPO) but EGD not done, reasons unclear. Re-eval by GI - diet advanced, patient tolerating. EGD postponed. Will hold Aspirin/Clopidogrel pending EGD. Upper GI series - excludes gastric outlet obstruction as well as esophageal stricture; presence of hiatal hernia and gastric diverticulm shown. Stool studies for reported loose stool (not watery or bloody as per patient) - neg so far. Cdiff not sent, unclear why. No further loose BMs. Anti-emetics - Reglan PPI Medically optimized for discharge with out-patient GI follow up for out-patient EGD. 2. ESRD on HD via LUE AVF Nephrology following. Continue Seve[place]mer 3. AVF Infection - being treated with 6 weeks IV oxaclllin via RUE PICC by Infectious Disease (Dr. Jernigan) at [facility]. Self-stopped Abx 2 days prior to admission, 1 week prior to recommended end-date. Team discussed with patient's ID physican at [facility] - no further Abx necessary at this time. PICC to be removed prior to DC. 4. DM 2 - resume home anti-hyperglycemic meds on discharge. 5. HTN - BP borderline. Resumed on home anti-hypertensive medication Metoprolol. 6. HLD - Statin held due to elevated transaminases. Repeat LFTs in 3 weeks with slow reintroduction of statin at lower dose by PCP. 7. Elevated Transaminases ? sec to fatty liver vs Abx vs Statin. RUQ US - fatty liver. Hepatitis serologies negative. Statin held.
[2019-02-01] MEDS: PANTOPRAZOLE SODIUM 40 MG VIAL IVPUSH SCH ×2 (12:29→15:03)
[2019-02-01] MEDS: METOPROLOL TARTRATE 50 MG TABLET (FP) PO SCH (12:30)
[2019-02-01] MEDS: CHOLECALCIFEROL (VIT D3) 1,000 UNIT (25 MCG) TABLET PO SCH (12:30)
[2019-02-01] MEDS: METOCLOPRAMIDE HCL 10 MG TABLET (FP) PO SCH (12:30)
[2019-02-01] MEDS: CALCIUM CARBONATE 650 MG TABLET PO SCH (12:31)
[2019-02-01] MEDS: HEPARIN NA (PORCINE) 5,000 UNITS/ML 1ML VIAL SQ SCH (12:32)
--- NOTE | 2019-02-01 13:49 | PN ---
Progress Note, Physician History of Present Illness: Pt seen and examined at bedside. He is tolerating diet. - Current Medication List Current Medications: Active Medications Albuterol Sulfate (Ventolin Hfa Inhaler -) 1 puff IH Q6H PRN PRN Reason: SHORTNESS OF BREATH Aspirin (Asa -) 81 mg PO DAILY [facility] Last Admin: 01/31/19 17:16 Dose: Not Given Calcium Carbonate (Calcium Carbonate -) 650 mg PO BID [facility] Last Admin: 02/01/19 12:31 Dose: Not Given Cholecalciferol (Vitamin D3 -) 2,000 unit PO DAILY [facility] Last Admin: 02/01/19 12:30 Dose: 2,000 unit Clopidogrel Bisulfate (Plavix -) 75 mg PO DAILY [facility] Last Admin: 01/31/19 17:16 Dose: Not Given Docusate Sodium (Colace -) 300 mg PO HS PRN PRN Reason: CONSTIPATION Last Admin: 01/31/19 21:50 Dose: 300 mg Heparin Sodium (Porcine) (Heparin -) 5,000 unit SQ BID [facility] Last Admin: 02/01/19 12:32 Dose: 5,000 unit Sodium Chloride (Normal Saline -) 250 mls @ 3,000 mls/hr IV PRN PRN PRN Reason: Hypotension during Dialysis Stop: 01/31/19 11:17 Insulin Aspart (Novolog Vial Sliding Scale -) 1 vial SQ TIDAC [facility]; Protocol Last Admin: 02/01/19 13:05 Dose: Not Given Metoclopramide HCl (Reglan -) 10 mg PO BID [facility] Last Admin: 02/01/19 12:30 Dose: 10 mg Metoprolol Tartrate (Lopressor -) 50 mg PO DAILY [facility] Last Admin: 02/01/19 12:30 Dose: 50 mg Multivitamins/Minerals (Theragran-M) 1 each PO DAILY [facility] Last Admin: 01/31/19 13:24 Dose: 1 each Pantoprazole Sodium (Protonix Iv) 40 mg IVPUSH BID [facility] Last Admin: 02/01/19 12:29 Dose: 40 mg Pregabalin (Lyrica -) 50 mg PO TID [facility] Last Admin: 02/01/19 05:37 Dose: 50 mg Sevelamer Carbonate (Renvela -) 1,600 mg PO TIDCM [facility] Last Admin: 02/01/19 12:31 Dose: 1,600 mg - Objective Vital Signs: Vital Signs Temperature 98 F 02/01/19 10:00 Pulse Rate 86 02/01/19 10:00 Respiratory Rate 18 02/01/19 10:00 Blood Pressure 109/73 02/01/19 10:00 O2 Sat by Pulse Oximetry (%) 98 02/01/19 08:53 Constitutional: Yes: Calm Eyes: Yes: Conjunctiva Clear HENT: Yes: Atraumatic Neck: Yes: Supple Cardiovascular: Yes: S1, S2 Respiratory: Yes: CTA Bilaterally Gastrointestinal: Yes: Soft, Abdomen, Obese Genitourinary: Yes: WNL Musculoskeletal: Yes: WNL Edema: Yes Edema: LLE: 1+, RLE: 1+ Neurological: Yes: Oriented Psychiatric: Yes: Oriented Labs: CBC, BMP 01/31/19 07:30 01/31/19 07:30 Assessment/Plan Current Medications Generic Name Dose Route Start Last Admin Trade Name Freq PRN Reason Stop Dose Admin Albuterol Sulfate 1 puff 01/30/19 10:00 Ventolin Hfa Inhaler - IH Q6H PRN SHORTNESS OF BREATH Aspirin 81 mg 01/30/19 10:00 01/31/19 17:16 Asa - PO Not Given DAILY [facility] Calcium Carbonate 650 mg 01/30/19 10:00 02/01/19 12:31 Calcium Carbonate - PO Not Given BID [facility] Cholecalciferol 2,000 unit 01/30/19 10:00 02/01/19 12:30 Vitamin D3 - PO 2,000 unit DAILY [facility] Administration Clopidogrel Bisulfate 75 mg 01/30/19 10:00 01/31/19 17:16 Plavix - PO Not Given DAILY [facility] Docusate Sodium 300 mg 01/30/19 02:10 01/31/19 21:50 Colace - PO 300 mg HS PRN Administration CONSTIPATION Heparin Sodium (Porcine) 5,000 unit 01/31/19 22:00 02/01/19 12:32 Heparin - SQ 5,000 unit BID [facility] Administration Sodium Chloride 250 mls @ 3,000 mls/hr 01/30/19 11:16 Normal Saline - IV 01/31/19 11:17 PRN PRN Hypotension during Dialysis Insulin Aspart 1 vial 01/30/19 07:00 02/01/19 13:05 Novolog Vial Sliding Scale - SQ Not Given TIDAC [facility] Protocol Metoclopramide HCl 10 mg 01/30/19 10:00 02/01/19 12:30 Reglan - PO 10 mg BID [facility] Administration Metoprolol Tartrate 50 mg 01/30/19 10:00 02/01/19 12:30 Lopressor - PO 50 mg DAILY [facility] Administration Multivitamins/Minerals 1 each 01/30/19 10:00 01/31/19 13:24 Theragran-M PO 1 each DAILY [facility] Administration Pantoprazole Sodium 40 mg 01/30/19 10:00 02/01/19 12:29 Protonix Iv IVPUSH 40 mg BID [facility] Administration Pregabalin 50 mg 01/30/19 06:00 02/01/19 05:37 Lyrica - PO 50 mg TID [facility] Administration Sevelamer Carbonate 1,600 mg 01/30/19 08:00 02/01/19 12:31 Renvela - PO 1,600 mg TIDCM [facility] Administration Impression 1. ESRD 2. anemia 3. HTN 4. morbid obesity 5. CVA 6. hyperlipidemia 7. proteinuria - nephrotic 8. PVD 9. foot ulcer 10. abd pain 11. vomiting 12. tachycardia Plan - HD tomorrow - GI follow up - pt tolerating diet - will give heparin with HD - will UF volume - renal diet
[2019-02-01] MEDS ORDERED: SODIUM CHLORIDE 250 ML IV PRN (13:50)
[2019-02-01] MEDS: MULTIVITAMINS THER W-MINERALS COMBO TABLET (FP) PO SCH (14:15)
--- NOTE | 2019-02-01 14:37 | DS ---
Physical Exam: SUBJECTIVE: Patient seen and examined in the morning. No acute events overnight. No complaints of chest pain, no shortness of breath, no abdominal pain, no nausea, no vomiting, no diarrhea. OBJECTIVE: Vital Signs Period Temp Pulse Resp BP Sys/Leon Pulse Ox Last 24 Hr 97.9 F-99.2 F 68-86 18-18 99-120/55-84 98-98 PHYSICAL EXAM GENERAL: Awake, alert, and fully oriented, in no acute distress. LUNGS: Breath sounds equal, clear to auscultation bilaterally. No wheezes, and no crackles. No accessory muscle use. HEART: Regular rate and rhythm, normal S1 and S2 without murmur, rub or gallop. ABDOMEN: Soft, tender to palpation in right upper and left quadrant, normoactive bowel sounds, no masses. LOWER EXTREMITIES: 2+ pulses, RLE wound wrapped no d/c, warm, well-perfused. Left foot has all 5 toes amputated. No calf tenderness. No peripheral edema. NEUROLOGICAL: Cranial nerves II-XII intact. Normal speech. Normal gait. PSYCHIATRIC: Cooperative. Good eye contact. Appropriate mood and affect. SKIN: Warm, dry, normal turgor, no rashes or lesions noted,multiple wounds per pt, RLE wound visible and non-infected LABS Laboratory Results - last 24 hr 01/30/19 01/31/19 02/01/19 16:45 17:15 05:35 POC Glucometer 129 182 Hep A IgM Ab Confirm Negative Hep Bs Antigen Negative Hep B Core IgM Ab Negative Hepatitis C Ab (EIA) 0.1 HOSPITAL COURSE: Date of Admission:01/29/19 Date of Discharge: 02/01/19 58 M with PMH of ESRD (Dialysis on , Monday), infection of AV fistula, morbid obestity, anemia, who presented with nausea and vomiting and abdominal pain for the last 6 weeks. Patient was able to tolerate a clear liquid diet which was advanced to renal diet while admitted to the hospital. Had no episodes of nausea, vomiting, or diarrhea during admission. Patient was noted to have elevated LFTs on admission so all hepatotoxic medications were held, and patient's atorvastatin was held. Patient had RUQ U/S completed which did not show significant abnormalities. Hepatitis panel was negative. Patient was admitted with a PICC line in place, with last dose of IV antibiotics given on . Spoke with infectious disease doctors at [facility] and they advised that patient did not need to continue antibiotics while hospitalized. PICC line was noted to be coming out on 02/01, and was removed. Spoke with Dr. Tyelr Carrero of the Infectious Disease clinic at [facility] who advised that PICC line was no longer necessary and that antibiotic course was complete. Patient will follow up with Dr. Dougherty (GI) for endoscopy and further evaluation of abdominal pain, nausea, vomiting. Patient instructed to continue diet similar to in hospital diet. Patient instructed to follow up with [facility] clinic, as he missed all follow up appointments after PICC line was inserted. Patient's atorvastatin held, will continue all other medications. Will have repeat LFTs in 3 weeks with primary care physician. Imaging done this admission: Chest X-Ray:Single view of the chest reveals a weak inspiration, normal heart, and unfolded aorta and prominent alex. The angles are sharp. The lungs are clear. An acute process is not seen. There is a questionable metallic foreign body in the right axilla which looks like a clip or staple. Correlation recommended. Abdominal CT:No definite CT findings of acute pathology are identified. Status post sleeve gastrectomy. Marked bilateral renal atrophy. Cholelithiasis. Stable minimal to mild bilateral adrenal gland thickening. No definite interval change is seen in comparison to a prior CT study of 2017. RUQ U/S:Significantly limited study due to patient's body habitus. Hepatomegaly with fatty infiltration of the liver. 0.7 cm nonshadowing gallstone vs polyp. Bilateral renal cortical thinning suggestive of medical renal disease. 1.8 cm left upper renal pole cyst Upper GI series: No evidence of gastric outlet obstruction. No stricture is seen in the distal thoracic esophagus. Hiatal hernia with gastric diverticulum at the fundus of the stomach. Minutes to complete discharge: 30 Discharge Summary Problems reviewed: Yes Reason For Visit: CHRONIC KIDNEY DISEASE, UNCONTROLLED TYPE 2 DIABET Current Active Problems Abdominal pain (Acute) Intractable vomiting (Acute) Chronic kidney disease (Chronic) DM type 2, uncontrolled, with renal complications (Chronic) ESRD (end stage renal disease) (Chronic) HTN (hypertension) (Chronic) Morbid obesity (Chronic) HOLLY (obstructive sleep apnea) (Chronic) Condition: Improved - Instructions Diet, Activity, Other Instructions: You were admitted to the hospital because you were having abdominal pains and difficulty eating food. We did imaging of your abdomen and saw no abnormalities. The GI doctors also saw you, and you will follow up with them as an outpatient to have an endoscopy. We noted that your liver function tests were elevated, so we are stopping your atorvastatin. Please follow up with your primary care doctor to repeat lab work and adjust your medication accordingly. We spoke with your Infectious Disease doctors at [facility], and we did not see a reason to start you on any antibiotics during this admission. We removed your PICC line since it was coming out. Please follow up with them to continue management of your antibiotics. You had your regular course of Hemodialysis completed on . Please resume with your regular schedule as an outpatient. We also started you on a new medication for our abdominal pain. Please take: Pantoprazole 40 mg, by mouth, twice a day. Please take your other medications as prescribed. Please follow up with Dr. Dougherty for follow up of your abdominal pain and to schedule an endoscopy. Please follow up with your PCP (Dr. Davis). You need to have bloodwork ( repeat LFTs in 3 week) with slow reintroduction of lower dose of your statin medication by your PCP. Please follow up with your infectious disease doctors at [facility] to continue management of your antibiotics. We are also providing a referral to our infectious disease clinic if you would prefer to follow with them. Return to the emergency department if you have worsening abdominal pain, loss of appetite, nausea, vomiting, diarrhea, or worsening of your symptoms. Referrals: Arya Martinez MD [Other] - 1 Week Hai Davis [Primary Care Provider] - 1 Week Maida Giron MD [Staff Physician] - Long Dougherty MD [Staff Physician] - 1 Week Disposition: HOME - Home Medications Comprehensive Discharge Medication List: Ambulatory Orders Sitagliptin Phosphate [Januvia -] 25 mg PO DAILY@0700 #30 tab 08/15/17 Clopidogrel Bisulfate [Plavix] 75 tab PO DAILY 04/03/18 Sevelamer Carbonate 1,600 mg PO TIDCM 11/15/18 Metoprolol Tartrate [Lopressor -] 50 mg PO DAILY 12/27/18 Pregabalin [Lyrica] 100 mg TID 01/30/19 Cholecalciferol (Vitamin D3) [Vitamin D3 -] 2,000 unit PO DAILY tab 02/01/19 Pantoprazole Sodium [Protonix -] 40 mg PO BID #60 tablet.ec 02/01/19 This patient is new to me today: No Emergency Visit: Yes ED Registration Date: 01/29/19 Care time: The patient presented to the Emergency Department on the above date and was hospitalized for further evaluation of their emergent condition. Critical Care patient: No - Discharge Referral Referred to [facility] Med P.C.: No ATTENDING PHYSICIAN STATEMENT I saw and evaluated the patient. I reviewed the resident's note and discussed the case with the resident. I agree with the resident's findings and plan as documented. SUBJECTIVE: OBJECTIVE: ASSESSMENT AND PLAN:
[2019-02-01 15:12] VITALS: BP 124/48; PULSE 72; TEMP 98.1
[2019-02-02] MEDS ORDERED: HEPARIN NA (PORCINE) 5,000 UNITS/ML 1ML VIAL IVPUSH ONE (13:50)
[2019-02-02] MEDS ORDERED: HEPARIN NA (PORCINE) 5,000 UNITS/ML 1ML VIAL IVPUSH SCH (14:00)
== END 2019-02-01 17:40 | disposition home or self-care (01) | DRG 73 ==
LOC: JER 12:10 → JERBED 19:57 → J7W 01-30 12:48
PROVIDERS: ADMIT Internal Medicine
PROC: 5A1D70Z Performance of Urinary Filtration, Intermittent, Less than 6 Hours Per Day (ICD-10-PCS; principal; 2019-01-30)
DX: E11.43 Type 2 diabetes mellitus with diabetic autonomic (poly)neuropathy (principal); N18.6 End stage renal disease; I69.354 Hemiplegia and hemiparesis following cerebral infarction affecting left non-dominant side; Z68.41 Body mass index [BMI] 40.0-44.9, adult; I13.2 Hypertensive heart and chronic kidney disease with heart failure and with stage 5 chronic kidney disease, or end stage renal disease; R11.2 Nausea with vomiting, unspecified; J44.9 Chronic obstructive pulmonary disease, unspecified; G47.33 Obstructive sleep apnea (adult) (pediatric); E11.22 Type 2 diabetes mellitus with diabetic chronic kidney disease; I50.9 Heart failure, unspecified; Z99.2 Dependence on renal dialysis; E66.01 Morbid (severe) obesity due to excess calories; E11.65 Type 2 diabetes mellitus with hyperglycemia; D64.9 Anemia, unspecified; E11.51 Type 2 diabetes mellitus with diabetic peripheral angiopathy without gangrene; E88.09 Other disorders of plasma-protein metabolism, not elsewhere classified; Z79.84 Long term (current) use of oral hypoglycemic drugs; R74.0 Nonspecific elevation of levels of transaminase and lactic acid dehydrogenase [LDH]; E11.621 Type 2 diabetes mellitus with foot ulcer; L97.509 Non-pressure chronic ulcer of other part of unspecified foot with unspecified severity; K29.70 Gastritis, unspecified, without bleeding; Z90.3 Acquired absence of stomach [part of]; K31.84 Gastroparesis
CPT/HCPCS: 36415; 71045-TC-FY; 74177-TC; 74220-TC-FY; 74240-TC-FY; 76705-TC; 80048; 80053; 80074; 81003; 82550; 82962; 83690; 84484; 85025; 85651; 86140; 87040; 87045; 87046; 87338; 87902; 93005; 93010; 99285-25; J0131; J1644; Q9967

== ENCOUNTER 2019-04-16 12:14 | Inpatient (IN) | payer OTHER ==
--- NOTE | 2019-04-16 13:54 | PDOC ---
History of Present Illness - General Chief Complaint: SIRS, Suspected/Possible Stated Complaint: Muscle Cramping Time Seen by Provider: 04/16/19 12:55 History Source: Patient - History of Present Illness Initial Comments: 58M PMH ESRD (HD T/W/R/; last session today full session w/ no volume taken off), chronic right oglesby ulcer (wound care), NIDDM, HTN, CAD, COPD c/o 1-2 days of fevers/chills and redness and tenderness of the right thigh. Was sent in from dialysis after being found to be persistently hypotensive there. Denies groin pain, testicular/penile pain/swelling/redness. Endorses loss of appetite today. Denies cp/sob, n/v, abd pain, headache, lightheadedness, dizziness, headache, muscle aches/pain, cough. Allergy to Sulfa meds Past History - Past Medical History Allergies/Adverse Reactions: Allergies Allergy/AdvReac Type Severity Reaction Status Date / Time fish derived Allergy Severe Hives Verified 04/16/19 12:42 Shellfish Allergy Severe Verified 04/16/19 12:42 sulfamethoxazole Allergy Severe Swelling Verified 04/16/19 12:42 [From Bactrim DS] trimethoprim Allergy Severe Swelling Verified 04/16/19 12:42 [From Bactrim DS] mupirocin [From Bactroban] Allergy Verified 04/16/19 12:42 Home Medications: Ambulatory Orders Apixaban [Eliquis] 1 tab PO BID 04/18/19 Atorvastatin Ca [Lipitor] 1 tab PO HS 04/18/19 Clopidogrel Bisulfate [Plavix] 1 tab PO DAILY 04/18/19 Pregabalin [Lyrica -] 1 cap PO TID PRN 04/18/19 Sitagliptin Phosphate [Januvia] 1 tab PO DAILY 04/18/19 Amoxicillin/Potassium Clav [Augmentin 500-125 Tablet] 1 each PO DAILY #7 tablet 04/19/19 Pantoprazole Sodium [Protonix -] 40 mg PO BID tablet.ec 04/19/19 Anemia: Yes Asthma: No Cancer: No Cardiac Disorders: Yes (Afib) CVA: Yes (X 2) COPD: Yes CHF: Yes Dementia: No Diabetes: Yes Dialysis: Yes (t,w,,) GI Disorders: Yes (gastric sleeve 5 yrs) Disorders: No HTN: Yes Hypercholesterolemia: Yes Liver Disease: No Seizures: No Thyroid Disease: No - Surgical History Abdominal Surgery: Yes (gastric bypass 05/05/14) Appendectomy: No Cardiac Surgery: No Cholecystectomy: No Lung Surgery: No Neurologic Surgery: No Orthopedic Surgery: Yes - Immunization History Immunization Up to Date: Yes - Psycho Social/Smoking Cessation Hx Smoking Status: No Smoking History: Never smoked Have you smoked in the past 12 months: No Number of Cigarettes Smoked Daily: 0 Cigars Per Day: 0 Information on smoking cessation initiated: No Hx Alcohol Use: No (past) Drug/Substance Use Hx: No Substance Use Type: None Hx Substance Use Treatment: No Review of Systems - Review of Systems Able to Perform ROS?: Yes Comments:: CONSTITUTIONAL: Endorses F / C HEENT: Denies headache, lightheadedness, dizziness RESP: Denies SOB, cough CARD: Denies chest pain GI: + loss appetite today. Denies N / V / D, abdominal pain, bloody stool, inability to tolerate PO : Does not make urine. Denies groin pain, testicular/penile pain/swelling/ redness SKIN: Endorses chronic ulcer of the anterior right oglesby. Endorses erythema and pain of the right thigh. NEURO: Denies numbness, tingling, weakness MSK: Denies back pain *Physical Exam - Vital Signs Last Vital Signs Temp Pulse Resp BP Pulse Ox 98.8 F 74 20 118/55 L 98 04/16/19 12:45 04/16/19 12:45 04/16/19 12:45 04/16/19 12:45 04/16/19 13:39 - Physical Exam GEN: NAD, comfortable. AAOx3. HEENT: NC/AT. No facial asymmetry. Normal voice. Supple neck w/ FROM. CV: S1/S2, RRR, no m/r/g LUNG: CTAB, no wheezes, crackles, rales, rhonchi. GI: Soft, ndnt, +BS, no guarding, no rebound. No masses. : Exam chaperoned by RN. No scrotal or penile swelling. No TTP. No hernias or testicular masses palpated. No bleeding or discharge at meatus. Appears to be fungal infection in the b/l inguinal creases. MSK: Erythema of the RLE - chronic in appearance of the lower portion; there is light erythema of the right thigh extending from the chronic portion to mid thigh. +TTP of the right thigh w/o crepitus or fluctuance; TTP extends proximal to the cellulitic zone. approx 2x2cm ulcer of the anterior oglesby (?purulence vs ointment). There is no erythema or TTP of the LLE. There is no streaking. SKIN: Warm, dry, no rashes appreciated. PSYCH: Normal mood and affect; pleasant. NEURO: Moving all extremities. Sensation reduced but intact in the b/l feet, unchanged per patient. ED Treatment Course - LABORATORY CBC & Chemistry Diagram: 04/19/19 06:05 04/19/19 06:05 - RADIOLOGY Radiology Studies Ordered: Category Date Time Status CHEST X-RAY PORTABLE* [RAD] Stat Radiology 04/16/19 13:22 Ordered Medical Decision Making - Medical Decision Making 04/16/19 13:47 58M PMH ESRD (HD T/W/R/Sa; last session today full session w/ no volume taken off), chronic right oglesby ulcer (wound care), NIDDM, HTN, CAD, COPD c/o F/C and erythema/pain of the right thigh. Sent in from dialysis due to persistent hypotension. DDx - cellulitis; unlikely fournieres at this point, consider systemic involvement. - CBC, CMP, Cardiac, Coags - BCx - image - ABx - admit [id number] HR 82 MS 184 QRS 102 QTc 427 sinus. 04/16/19 14:08 per chart review - pt has been seen by Dr. Giron (ID) in the past 04/16/19 14:22 given complexity of the patient's comorbidities will obtain CT pelvis and RLE to evaluate for deep infections Pt will be receiving IV contrast; was dialyzed today, scheduled for dialysis tomorrow vanc/zosyn ordered 04/16/19 15:[address] w/ contrast 04/16/19 17:17 Multiplanar imaging of the pelvis and legs was performed. Comparative imaging of the left leg was also obtained. No soft tissue air accumulation is seen involving the pelvis or right leg. The deep fascial planes appear intact. No gross muscular pathology is visualized. mild subcutaneous edema is seen along the ventral medial aspect of the right upper thigh. Concentric cutaneous and subcutaneous soft tissue thickening is seen along the length bilaterally, right more than left. No discrete fluid collection is identified on noncontrast imaging. Small bilateral suprapatellar joint effusions are noted. Somewhat extensive bilateral lower extremity atherosclerotic vascular calcifications are noted. Status post left foot transmetatarsal amputation. Several enlarged bilateral inguinal lymph nodes are seen. There is no definite evidence of osteomyelitis within the limitations of CT. Impression: As noted above. CT report and imaging reviewed Admit for IV abx // ADMITTED Discharge - Discharge Information Problems reviewed: Yes Clinical Impression/Diagnosis: Cellulitis Condition: Good Disposition: HOME - Follow up/Referral - Patient Discharge Instructions - Post Discharge Activity
[2019-04-16 14:08] LABS: EOS % 1.6 % (0-4.5); HEMATOCRIT 42.1 % (35.4-49); HEMOGLOBIN 13.9 GM/dL (11.7-16.9); LYMPH % 9.1 % (8-40); MCH 31.9 pg (25.7-33.7); MCHC 33.1 g/dl (32.0-35.9); MEAN CELL VOLUME 96.5 fl (80-96); MEAN PLT VOLUME 10.4 fl (7.5-11.1); MONO % 6.8 % (3.8-10.2); NEUT % 81.5 % (42.8-82.8); PLATELET COUNT 197 K/MM3 (134-434); RBC 4.37 M/mm3 (4.00-5.60); RDW 15.4 % (11.9-15.9); WHITE BLOOD COUNT 10.3 K/mm3 (4.0-10.0)
[2019-04-16] MEDS ORDERED: PIPERACILLIN/TAZOB 3.375 GM 3.375 GM in DEXTROSE 5%-WATER - 50 ML IVPB ONE (14:17)
[2019-04-16] MEDS ORDERED: VANCOMYCIN 1 GM in D5W (PRE-DOCKED) 1,000 MG/250 ML IVPB ONE (14:17)
[2019-04-16 14:23] LABS: INR 1.25 (0.83-1.09); PROTHROMBIN TIME (PATIENT) 14.8 SEC (9.7-13.0)
--- NOTE | 2019-04-16 14:24 | PDOC ---
Attending Attestation - Resident Resident Name: Dionte Dugan - ED Attending Attestation I have performed the following: I have examined & evaluated the patient, The case was reviewed & discussed with the resident, I agree w/resident's findings & plan - HPI HPI: 04/16/19 14:19 58-year-old male with history of multiple medical problems, end-stage renal disease on dialysis Monday//Monday presents from dialysis with hypotension and right lower extremity lesion. Patient states his blood pressure went down, but reports this is very typical for him at dialysis. He was asymptomatic today, though he will occasionally get lightheaded. Patient reporting right leg discomfort mostly since last night, denies any fevers but reported some chills and night sweats. - Physicial Exam PE: 04/16/19 14:20 Afebrile, blood pressure normal here at 118 systolic Pleasant gentleman seated comfortably in stretcher smiling and speaking full sentences Heart overall regular, lungs are clear Right lower extremity with chronic venous stasis dermatitis and lower leg wound with dressing in place, superimposed acute well-demarcated cellulitis approximately in the upper leg/medial thigh with some tenderness to palpation even proximal to the cellulitis but without any palpable induration or mass or crepitus. Right groin tinea cruris, exam is normal without abnormal perineal or scrotal findings - Medical Decision Making 04/16/19 14:22 58-year-old male end-stage renal disease on dialysis with right lower extremity cellulitis, possible sources include chronic lower leg skin ulcers and right groin fungal infection. Appears like superficial cellulitis but given the tenderness outside of the cellulitic zone, concern for deep tissue infection. Patient is not septic appearing, is neurovascularly intact. Low blood pressure readings at dialysis are likely routine around dialysis, patient was asymptomatic, though in the setting of infection we will closely monitor. Check labs CT of the pelvis and right lower extremity IV antibiotics Admission Heart Score/ECG Review #1 ECG reviewed & interpreted by me at: 13:17 General ECG Interpretation: Sinus Rhythm, Normal Rate (82), Normal Intervals ( qtc 427, LAFB), No acute ischemic changes
[2019-04-16 14:26] LABS: ACTIVATED PTT 36.4 SECONDS (25.2-36.5)
[2019-04-16] MEDS ORDERED: PIPERACILLIN/TAZOB 3.375 GM 3.375 GM/50 ML BAG IVPB ONE (14:37)
[2019-04-16 14:43] LABS: ALBUMIN 3.2 g/dl (3.4-5.0); BILIRUBIN,TOTAL 1.2 mg/dL (0.2-1); CALCIUM 8.9 mg/dL (8.5-10.1); CREATININE 5.9 mg/dL (0.55-1.3); PHOSPHOROUS 4.3 mg/dL (2.5-4.9); POTASSIUM 3.6 mmol/L (3.5-5.1); TOT PROT 7.8 g/dl (6.4-8.2)
[2019-04-16] MEDS ORDERED: VANCOMYCIN 1 GRAM (PRE-DOCKED) 1,000 MG/250 ML BAG IVPB ONE (16:46)
--- NOTE | 2019-04-16 17:51 | CONSULT ---
Consult Consult Specialty:: Nephrology Reason for Consultation:: ESRD - History of Present Illness Chief Complaint: hypotension History of Present Illness: Pt is a 58 year old male with pmhx of esrd on HD who I sent in for hypotension and chills. He says that he has has chills all night. He was hypotensive and we were unable to UF any volume off of him. He complains of right thigh pain and discomfort. He complains of malaise and loss of appetite. He has history of obesity, DM, PE, cad, COPD, and chronic lower ext wounds. - History Source History Provided By: Patient - Past Medical History SKIN GRADER: Yes: CVA Cardio/Vascular: Yes: HTN, Hyperlipdemia, Other Pulmonary: Yes: Sleep Apnea Gastrointestinal: Yes: GERD, Other (obesity) Renal/: Yes: Renal Failure, Renal Inusuff, Hemodialysis, Other Infectious Disease: Yes: MRSA, VREF, Other (ecoli esbl) Endocrine: Yes: Diabetes Mellitus - Past Surgical History Past Surgical History: Yes: AV Fistula/Graft - Alcohol/Substance Use Hx Alcohol Use: No (past) - Smoking History Smoking history: Never smoked Have you smoked in the past 12 months: No Aproximately how many cigarettes per day: 0 - Social History Usual Living Arrangement: Alone ADL: Independent History of Recent Travel: No Home Medications - Allergies Allergies/Adverse Reactions: Allergies Allergy/AdvReac Type Severity Reaction Status Date / Time fish derived Allergy Severe Hives Verified 04/16/19 12:42 Shellfish Allergy Severe Verified 04/16/19 12:42 sulfamethoxazole Allergy Severe Swelling Verified 04/16/19 12:42 [From Bactrim DS] trimethoprim Allergy Severe Swelling Verified 04/16/19 12:42 [From Bactrim DS] mupirocin [From Bactroban] Allergy Verified 04/16/19 12:42 - Home Medications Home Medications: Ambulatory Orders Sitagliptin Phosphate [Januvia -] 25 mg PO DAILY@0700 #30 tab 08/15/17 Metoprolol Tartrate [Lopressor -] 50 mg PO DAILY 12/27/18 Pantoprazole Sodium [Protonix -] 40 mg PO BID #60 tablet.ec 02/01/19 Apixaban [Eliquis - Starter Pack (For VTE)] 5 mg PO UTDICT 30 Days #30 tab 03/08 Atorvastatin Ca [Lipitor] 40 mg PO HS #30 tablet 03/08/19 Pregabalin [Lyrica] 50 mg PO TID #100 capsule MDD 150mg 03/08/19 Family Medical History Family History: Denies Review of Systems - Review of Systems Constitutional: reports: Chills, Fever, Malaise HENT: reports: No Symptoms Neck: reports: No Symptoms Cardiovascular: reports: No Symptoms Respiratory: reports: No Symptoms Gastrointestinal: reports: No Symptoms Genitourinary: reports: No Symptoms Musculoskeletal: reports: No Symptoms Integumentary: reports: Erythema Neurological: reports: No Symptoms Endocrine: reports: No Symptoms Hematology/Lymphatic: reports: No Symptoms Psychiatric: reports: No Symptoms Physical Exam Vital Signs: Vital Signs Temperature 98.8 F 04/16/19 12:45 Pulse Rate 74 04/16/19 12:45 Respiratory Rate 20 04/16/19 12:45 Blood Pressure 118/55 L 04/16/19 12:45 O2 Sat by Pulse Oximetry (%) 98 04/16/19 13:39 Constitutional: Yes: Calm Eyes: Yes: Conjunctiva Clear HENT: Yes: Atraumatic Neck: Yes: Supple Cardiovascular: Yes: S1, S2 Respiratory: Yes: CTA Bilaterally, On Nasal O2 Gastrointestinal: Yes: Soft, Abdomen, Obese Renal/: Yes: WNL Musculoskeletal: Yes: WNL Edema: Yes Edema: LLE: 1+, RLE: 1+ Neurological: Yes: Oriented Psychiatric: Yes: Oriented Labs: CBC, BMP 04/16/19 13:20 04/16/19 13:20 Problem List - Problems (1) Cellulitis Code(s): L03.90 - CELLULITIS, UNSPECIFIED (2) ESRD (end stage renal disease) Code(s): N18.6 - END STAGE RENAL DISEASE Assessment/Plan Impression 1. ESRD 2. anemia 3. HTN 4. morbid obesity 5. CVA 6. hyperlipidemia 7. proteinuria - nephrotic 8. PVD 9. hypotension 10. PE Plan - send cultures - follow ct scan - pt was dialyzed already today - discussed with er - resume home meds but hold bp meds
[2019-04-16] MEDS ORDERED: PATIENT'S OWN MEDICATION (NON-FORMULARY) (Apixaban [Eliquis - Starter Pack (For Vte)] 5 MG PO SCH (20:15)
--- NOTE | 2019-04-16 20:36 | HP ---
CHIEF COMPLAINT: fever, chills, malaise,anorexia and right leg pain and redness PCP:Dr. Harmon Avionics Electronics Technician: Dr. Win Acid Maker: Dr. Naylor Wound Care: Dr. Denny HISTORY OF PRESENT ILLNESS: Mr. Guerrero is a 58 year old obese male with past medical history of ESRD on HD( Tues,Thurs,Sat), CVA (s/p 2 strokes, most recent 3 years ago with residual LLE weakness) NIDDM, CHF, CAD, HLD, HTN, bariatric surgery,anemia,COPD, DVT/PE, on eliquis, vascular disease(no stents), right calf ulcer,and chronic lower extremity leg wounds who was sent in by his Avionics Electronics Technician for hypotension during hemodialysis today. He reported he has been having fever and chills since last night. He also reported malaise and anorexia. He complains of right lower thigh pain and redness. He is being admitted for further medical management/treatment and ID consultation and wound care for right leg cellulitis. Recent Travel: no PAST MEDICAL HISTORY: ESRD on hemodialysis NIDDM COPD CHF PE CAD Hyperlipidemia Chronic lower extremity leg wounds PAST SURGICAL HISTORY: portion of left foot amputation bariatric surgery Social History: Smoking:no Alcohol:no Drugs: no Allergies fish derived Allergy (Severe, Verified 04/16/19 12:42) Hives Shellfish Allergy (Severe, Verified 04/16/19 12:42) throat swelling sulfamethoxazole [From Bactrim DS] Allergy (Severe, Verified 04/16/19 12:42) Swelling trimethoprim [From Bactrim DS] Allergy (Severe, Verified 04/16/19 12:42) Swelling mupirocin [From Bactroban] Allergy (Verified 04/16/19 12:42) HOME MEDICATIONS: Home Medications Medication Instructions Recorded Sitagliptin Phosphate [Januvia -] 25 mg PO DAILY@0700 #30 tab 08/15/17 Metoprolol Tartrate [Lopressor -] 50 mg PO DAILY 12/27/18 Pantoprazole Sodium [Protonix -] 40 mg PO BID #60 tablet.ec 02/01/19 Apixaban [Eliquis - Starter Pack 5 mg PO UTDICT 30 Days #30 tab 03/08/19 (For VTE)] Atorvastatin Ca [Lipitor] 40 mg PO HS #30 tablet 03/08/19 Pregabalin [Lyrica] 50 mg PO TID #100 capsule MDD 150mg 03/08/19 REVIEW OF SYSTEMS CONSTITUTIONAL: Absent: fever, chills, diaphoresis, generalized weakness, malaise, loss of appetite, weight change HEENT: Absent: rhinorrhea, nasal congestion, throat pain, throat swelling, difficulty swallowing, mouth swelling, ear pain, eye pain, visual changes CARDIOVASCULAR: Absent: chest pain, syncope, palpitations, irregular heart rate, lightheadedness , peripheral edema RESPIRATORY: Absent: cough, shortness of breath, dyspnea with exertion, orthopnea, wheezing, stridor, hemoptysis GASTROINTESTINAL: Absent: abdominal pain, abdominal distension, nausea, vomiting, diarrhea, constipation, melena, hematochezia GENITOURINARY: Absent: dysuria, frequency, urgency, hesitancy, hematuria, flank pain, genital pain MUSCULOSKELETAL: Absent: myalgia, arthralgia, joint swelling, back pain, neck pain SKIN: Absent: rash, itching, pallor, redness and pain to right lower thigh and leg HEMATOLOGIC/IMMUNOLOGIC: Absent: easy bleeding, easy bruising, lymphadenopathy, frequent infections ENDOCRINE: Absent: unexplained weight gain, unexplained weight loss, heat intolerance, cold intolerance NEUROLOGIC: Absent: headache, focal weakness or paresthesias, dizziness, unsteady gait, seizure, mental status changes, bladder or bowel incontinence PSYCHIATRIC: Absent: anxiety, depression, suicidal or homicidal ideation, hallucinations. PHYSICAL EXAMINATION Vital Signs - 24 hr 04/16/19 04/16/19 12:45 13:39 Temperature 98.8 F Pulse Rate 74 Respiratory 20 Rate Blood Pressure 118/55 L O2 Sat by Pulse 98 98 Oximetry (%) GENERAL: awake, alert,fully oriented, no acute distress HEAD: normal EYES: Pupils equal, round and reactive to light, extraocular movements intact EARS, NOSE, THROAT: Ears normal, nares patent, oropharynx clear without exudates. Moist mucous membranes. NECK: normal range of motion LUNGS: breath sounds clear to auscultation bilaterally no wheezes no crackles no accessory muscle use HEART: regular rate and rhythm normal S1 and S2 ABDOMEN: soft, nontender not distended, normoactive bowel sounds MUSCULOSKELETAL: limited range of motion UPPER EXTREMITIES: 2+ pulses warm well-perfused LOWER EXTREMITIES: right lower extremity with swelling, and discoloration/ redness a to lower thigh and leg NEUROLOGICAL: normal speech no facial droop PSYCHIATRIC: cooperative good eye contact SKIN: warm redness to right lower thigh Laboratory Results - last 24 hr 04/16/19 04/16/19 04/16/19 13:20 13:20 13:20 WBC 10.3 H RBC 4.37 Hgb 13.9 Hct 42.1 MCV 96.5 H MCH 31.9 MCHC 33.1 RDW 15.4 Plt Count 197 MPV 10.4 Absolute Neuts (auto) 8.4 H Neutrophils % 81.5 D Lymphocytes % 9.1 D Monocytes % 6.8 Eosinophils % 1.6 Basophils % 1.0 Nucleated RBC % 0 PT with INR 14.80 H INR 1.25 H PTT (Actin FS) 36.4 Sodium 133 L Potassium 3.6 Chloride 98 Carbon Dioxide 24 Anion Gap 11 BUN 20.0 H Creatinine 5.9 H Est GFR (CKD-EPI)AfAm 11.20 Est GFR (CKD-EPI)NonAf 9.66 Random Glucose 203 H Calcium 8.9 Phosphorus 4.3 Magnesium 2.0 Total Bilirubin 1.2 H AST 21 ALT 22 Alkaline Phosphatase 79 Creatine Kinase 23 L Troponin I 0.03 Total Protein 7.8 Albumin 3.2 L Blood Type Antibody Screen 04/16/19 13:20 WBC RBC Hgb Hct MCV MCH MCHC RDW Plt Count MPV Absolute Neuts (auto) Neutrophils % Lymphocytes % Monocytes % Eosinophils % Basophils % Nucleated RBC % PT with INR INR PTT (Actin FS) Sodium Potassium Chloride Carbon Dioxide Anion Gap BUN Creatinine Est GFR (CKD-EPI)AfAm Est GFR (CKD-EPI)NonAf Random Glucose Calcium Phosphorus Magnesium Total Bilirubin AST ALT Alkaline Phosphatase Creatine Kinase Troponin I Total Protein Albumin Blood Type A POSITIVE Antibody Screen Negative ASSESSMENT/PLAN: Mr. Guerrero is a 58 year old obese male with past medical history of ESRD on HD( Tues,Thurs,Sat), CVA (s/p 2 strokes, most recent 3 years ago with residual LLE weakness) NIDDM, CHF, CAD, HLD, HTN, bariatric surgery,anemia,COPD, DVT/PE, on eliquis, vascular disease(no stents), right calf ulcer,and chronic lower extremity leg wounds who was sent in by his Avionics Electronics Technician for hypotension during hemodialysis today. He has been having symptoms of fever and chills since last night in addition to malaise and anorexia. He also reported right lower thigh redness and pain. He is being admitted for further medical management/treatment and ID consultation and wound care for right lower leg cellulitis. 1. Right Lower Extremity Cellulitis Currently afebrile, WBC 10.3, CT of right extremity and pelvis with no evidence of osteomyelitis,received a dose of IV pipercillin and vancomycin Blood cultures pending Check lactic acid level Continue with IV pipercillin and vancomycin ID consulted- Dr. Giron 2. ESRD Nephrology consulted- Dr. Garcia 3. NIDDM BGM before meals and at bedtime Novolog insulin as per sliding scale 4. Hypertension Improved, no evidence of hypotension Hold metoprolol for now 5. CAD He denies anginal complaints Continue statin therapy Not on aspirin as patient is on systemic anticoagulation 6. Hyperlipidemia Continue statin 7. Chronic Lower Extremity Leg Wounds Wound care consulted- Dr Frederick 8. History of PE Continue with eliquis FEN no fluids indicated, no evidence of hypotension monitor electrolytes closely, check BMP in am renal, ADA, low sodium diet DVT Prophylaxsis continue with eliquis Visit type - Emergency Visit Emergency Visit: Yes ED Registration Date: 04/16/19 Care time: The patient presented to the Emergency Department on the above date and was hospitalized for further evaluation of their emergent condition. - New Patient This patient is new to me today: Yes Date on this admission: 04/16/19 - Critical Care Critical Care patient: No
[2019-04-16] MEDS ORDERED: PANTOPRAZOLE 40 MG TABLET ONE (20:46)
[2019-04-16] MEDS ORDERED: ATORVASTATIN CA 40 MG TABLET (FP) ONE (20:46)
[2019-04-16] MEDS ORDERED: PREGABALIN 50 MG CAPSULE ONE (20:46)
[2019-04-16] MEDS: PREGABALIN 50 MG CAPSULE PO SCH (21:03)
[2019-04-16] MEDS: PANTOPRAZOLE 40 MG TABLET PO SCH (21:03)
[2019-04-16] MEDS: ATORVASTATIN CA 40 MG TABLET (FP) PO SCH (21:03)
[2019-04-16] MEDS ORDERED: PIPERACILLIN/TAZOBACTAM 3.375 GM VIAL IVPB ONE (21:27)
[2019-04-16] MEDS ORDERED: DEXTROSE 5%-WATER - 50 ML IVPB ONE (21:27)
[2019-04-16] MEDS: PIPERACILLIN/TAZOB 3.375 GM 3.375 GM in DEXTROSE 5%-WATER - 50 ML IVPB SCH (21:50)
[2019-04-16] MEDS ORDERED: HEPARIN NA (PORCINE) 5,000 UNITS/ML 1ML VIAL SQ SCH (22:00)
[2019-04-16] MEDS ORDERED: PIPERACILLIN/TAZOB 3.375 GM 3.375 GM in DEXTROSE 5%-WATER - 50 ML IVPB SCH (22:00)
[2019-04-16] MEDS: APIXABAN 5 MG TABLET PO SCH (22:29)
[2019-04-16 23:18] VITALS: BMI 44.1
[2019-04-17] MEDS ORDERED: INSULIN (NOVOLOG) ASPART 100 UNITS/ML 10ML VIAL ONE ×2 (06:16→16:34)
[2019-04-17] MEDS: PREGABALIN 50 MG CAPSULE PO SCH ×3 (06:20→22:22)
[2019-04-17] MEDS ORDERED: INSULIN SLIDING SCALE (NOVOLOG) 1 VIAL SQ SCH (07:00)
[2019-04-17 07:29] LABS: HEMATOCRIT 35.5 % (35.4-49); HEMOGLOBIN 12.1 GM/dL (11.7-16.9); MCH 32.7 pg (25.7-33.7); MCHC 34.1 g/dl (32.0-35.9); MEAN CELL VOLUME 95.7 fl (80-96); PLATELET COUNT 167 K/MM3 (134-434); RBC 3.71 M/mm3 (4.00-5.60); RDW 15.7 % (11.9-15.9); WHITE BLOOD COUNT 6.4 K/mm3 (4.0-10.0)
[2019-04-17 08:07] LABS: BLOOD UREA NITROGEN 33.8 mg/dL (7-18); CALCIUM 8.5 mg/dL (8.5-10.1); POTASSIUM 3.7 mmol/L (3.5-5.1)
[2019-04-17 08:22] LABS: CREATININE 7.4 mg/dL (0.55-1.3)
[2019-04-17] MEDS ORDERED: DEXTROSE 5%-WATER - 50 ML IVPB ONE ×2 (08:38→15:38)
[2019-04-17] MEDS ORDERED: PIPERACILLIN/TAZOBACTAM 3.375 GM VIAL IVPB ONE (08:38)
[2019-04-17] MEDS: APIXABAN 5 MG TABLET PO SCH ×2 (09:19→22:22)
[2019-04-17] MEDS: PANTOPRAZOLE 40 MG TABLET PO SCH ×2 (09:19→22:22)
[2019-04-17] MEDS: PIPERACILLIN/TAZOB 3.375 GM 3.375 GM in DEXTROSE 5%-WATER - 50 ML IVPB SCH (09:19)
[2019-04-17] MEDS ORDERED: VANCOMYCIN 1 GRAM (PRE-DOCKED) 1,000 MG/250 ML BAG IVPB ONE (10:00)
[2019-04-17] MEDS ORDERED: METOPROLOL TARTRATE 50 MG TABLET (FP) PO SCH (10:00)
[2019-04-17] MEDS ORDERED: VANCOMYCIN 1 GM in D5W (PRE-DOCKED) 1,000 MG/250 ML IVPB SCH (10:00)
--- NOTE | 2019-04-17 13:51 | CONSULT ---
- Consultation REQUESTING PROVIDER: CONSULT REQUEST: We have been asked to surgically evaluate this patient for right leg cellulitis with chronic wound. PCP:John Moreno MD HISTORY OF PRESENT ILLNESS: Mr. Guerrero is a 58 year old obese male with past medical history of ESRD on HD(,,Mon), CVA (s/p 2 strokes, most recent 3 years ago with residual LLE weakness) NIDDM, CHF, CAD, HLD, HTN, bariatric surgery,anemia,COPD, DVT/PE, on eliquis, vascular disease(no stents), right calf ulcer,and chronic lower extremity leg wounds. He ambulates on the left foot with diabetic shoe with TMA filler insert. He is being managed by Dr. Madera for his right leg ulcer and Dr Alcantara is his supervisor coffee-recently seen for a small abrasion on the right second toe, which has been healing nicely. The patient was sent in by his [employer]ch Solderer for hypotension during hemodialysis yesterday. He reported he has been having fever and chills since Monday. He also reported malaise and anorexia. He complains of right lower thigh pain and redness. Recent Travel: no PAST MEDICAL HISTORY: ESRD on hemodialysis NIDDM COPD CHF PE CAD Hyperlipidemia Chronic lower extremity leg wounds PAST SURGICAL HISTORY: Left Foot TMA bariatric surgery Social History: Smoking:no Alcohol:no Drugs: no Allergies fish derived Allergy (Severe, Verified 04/16/19 12:42) Hives Shellfish Allergy (Severe, Verified 04/16/19 12:42) throat swelling sulfamethoxazole [From Bactrim DS] Allergy (Severe, Verified 04/16/19 12:42) Swelling trimethoprim [From Bactrim DS] Allergy (Severe, Verified 04/16/19 12:42) Swelling mupirocin [From Bactroban] Allergy (Verified 04/16/19 12:42) HOME MEDICATIONS: Home Medications Medication Instructions Recorded Sitagliptin Phosphate [Januvia -] 25 mg PO DAILY@0700 #30 tab 08/15/17 Metoprolol Tartrate [Lopressor -] 50 mg PO DAILY 12/27/18 Pantoprazole Sodium [Protonix -] 40 mg PO BID #60 tablet.ec 02/01/19 Apixaban [Eliquis - Starter Pack 5 mg PO UTDICT 30 Days #30 tab 03/08/19 (For VTE)] Atorvastatin Ca [Lipitor] 40 mg PO HS #30 tablet 03/08/19 Pregabalin [Lyrica] 50 mg PO TID #100 capsule MDD 150mg 03/08/19 REVIEW OF SYSTEMS CONSTITUTIONAL: Absent: fever, chills, diaphoresis, generalized weakness, malaise, loss of appetite, weight change HEENT: Absent: rhinorrhea, nasal congestion, throat pain, throat swelling, CARDIOVASCULAR: Absent: chest pain, syncope, palpitations, RESPIRATORY: Absent: cough, shortness of breath, GASTROINTESTINAL: Absent: abdominal pain, abdominal distension, nausea, vomiting, GENITOURINARY: Absent: dysuria, frequency, urgency, hesitancy MUSCULOSKELETAL: Absent: myalgia, arthralgia, back pain, neck pain SKIN: Absent: rash, itching, pallor, redness and pain to right lower thigh and leg, chronic right LE wound HEMATOLOGIC/IMMUNOLOGIC: Absent: easy bleeding, easy bruising, lymphadenopathy, frequent infections ENDOCRINE: Absent: unexplained weight gain, unexplained weight loss, heat intolerance, cold intolerance NEUROLOGIC: Absent: headache, focal weakness or paresthesias, dizziness, PSYCHIATRIC: Absent: anxiety, depression, suicidal or homicidal ideation, hallucinations. PHYSICAL EXAMINATION Vital Signs Temp 97.9 F 04/17/19 10:00 Pulse 76 04/17/19 10:00 Resp 20 04/17/19 10:00 BP 107/54 L 04/17/19 10:00 Pulse Ox 99 04/16/19 21:30 Intake & Output 04/16/19 04/17/19 04/17/19 23:59 11:59 23:59 Weight 402 lb 3 oz 402 lb Other: Voiding Method Urinal Toilet Bowel Movement No Height 6 ft 8 in Body Mass Index (BMI) 44.1 Weight Measurement Method Standing Scale Standing Scale Weight Measurement Method Est/Stated by Patient CBC, BMP 04/17/19 06:30 04/17/19 06:30 GENERAL: awake, alert,fully oriented, no acute distress HEAD: NC/AT EYES: Pupils equal, round and reactive to light, LUNGS: Unlabored resp on RA, no auditory wheezes, no accessory muscle use HEART: regular rate and rhythm normal S1 and S2 MUSCULOSKELETAL: Moving all extremities without limitation. UPPER EXTREMITIES: warm well-perfused, Left UE AVF LOWER EXTREMITIES: Right LE with edema and cellulitis extending from ankle to mid inner thigh with diffuse TTP throughout and chronic skin changes seen over the LE, Small superficial wound over distal 3rd of [place] @ 1x 0.5cm, scaly appearance with scant yellowish drainage, no evidence of active infection at wound site. There is a small abrasion noted on the dorsal aspect of the right second digit, measuring 0.3 cm x 0.3 cm x 0.1 cm, granular base, regular borders , no probing to bone, no purulence, no fluctuance, no streaking cellulitis, no signs of infection. + signal at DP and TP on bedside dopplerable B/L, Right foot , s/p well healed TMA with no signs of edema/ erythema, wounds or lesions. foot is warm and well perfused. B/L LE compartments soft, supple. NEUROLOGICAL: normal speech no facial droop PSYCHIATRIC: cooperative good eye contact SKIN: warm redness to right lower thigh Problem List - Problems (1) Cellulitis Assessment/Plan: Imp: 58 year old diabetic male with PVD and right LE cellulitis and choinic wound with healing abrasion right second digit and + signal on bedside doppler. No evidence for vascular intervention at this time. -Refer all foot care to Dr Alcantara -ID for IV abx for cellulitis -Clean right LE wound with NS and apply algenate every other day -Wrap b/l LE with light ZANE compression once cellulitis resolves -Continue surgical offloading shoe on the right foot, diabetic shoe with TMA insert left foot. -OOB with walker -follow up in Wound care clinic as outpatient Evaluation and plan discussed with Dr Frederick Code(s): L03.90 - CELLULITIS, UNSPECIFIED (2) Wound of right leg Code(s): S81.801A - UNSPECIFIED OPEN WOUND, RIGHT LOWER LEG, INITIAL ENCOUNTER
[2019-04-17] MEDS: INSULIN SLIDING SCALE (NOVOLOG) 1 VIAL SQ SCH ×3 (14:06→22:25)
--- NOTE | 2019-04-17 14:20 | PN ---
Physical Exam: SUBJECTIVE: Patient seen and examined at bedside. No acute complaints. Lying comfortably in bed, afebrile overnight. OBJECTIVE: Vital Signs Period Temp Pulse Resp BP Sys/Leon Pulse Ox Last 24 Hr 97.7 F-98.5 F 70-90 19-20 90-120/47-73 99-100 GENERAL: The patient is awake, alert, and fully oriented, in no acute distress. LUNGS: Breath sounds equal, clear to auscultation bilaterally, no wheezes, no crackles, no accessory muscle use. HEART: Regular rate and rhythm, S1, S2 without murmur, rub or gallop. ABDOMEN: Soft, nontender, globose abdomen. EXTREMITIES: 2+ dp pulses b/l , warm well perfused no edema. NEUROLOGICAL: Cranial nerves II through XII grossly intact. Normal speech, gait not observed. PSYCH: Normal mood, normal affect. SKIN: b/l dry skin peeling, swollen, small abrasion noted on the dorsal aspect of the right second digit, measuring 0.3 cm x 0.3 cm x 0.1 cm, no fluctuance or fluid collection noted, erythematous well demarcated rash warm to touch, nontender to palpation on right leg, left leg s/p TMA . Laboratory Results - last 24 hr 04/16/19 04/16/19 04/16/19 13:20 13:20 13:20 WBC 10.3 H RBC 4.37 Hgb 13.9 Hct 42.1 MCV 96.5 H MCH 31.9 MCHC 33.1 RDW 15.4 Plt Count 197 MPV 10.4 Absolute Neuts (auto) 8.4 H Neutrophils % 81.5 D Lymphocytes % 9.1 D Monocytes % 6.8 Eosinophils % 1.6 Basophils % 1.0 Nucleated RBC % 0 PT with INR 14.80 H INR 1.25 H PTT (Actin FS) 36.4 Sodium 133 L Potassium 3.6 Chloride 98 Carbon Dioxide 24 Anion Gap 11 BUN 20.0 H Creatinine 5.9 H Est GFR (CKD-EPI)AfAm 11.20 Est GFR (CKD-EPI)NonAf 9.66 POC Glucometer Random Glucose 203 H Lactic Acid Calcium 8.9 Phosphorus 4.3 Magnesium 2.0 Total Bilirubin 1.2 H AST 21 ALT 22 Alkaline Phosphatase 79 Creatine Kinase 23 L Troponin I 0.03 Total Protein 7.8 Albumin 3.2 L Blood Type Antibody Screen 04/16/19 04/17/19 04/17/19 13:20 06:18 06:30 WBC 6.4 RBC 3.71 L Hgb 12.1 Hct 35.5 D MCV 95.7 MCH 32.7 MCHC 34.1 RDW 15.7 Plt Count 167 MPV 10.0 Absolute Neuts (auto) Neutrophils % Lymphocytes % Monocytes % Eosinophils % Basophils % Nucleated RBC % PT with INR INR PTT (Actin FS) Sodium Potassium Chloride Carbon Dioxide Anion Gap BUN Creatinine Est GFR (CKD-EPI)AfAm Est GFR (CKD-EPI)NonAf POC Glucometer 247 Random Glucose Lactic Acid Calcium Phosphorus Magnesium Total Bilirubin AST ALT Alkaline Phosphatase Creatine Kinase Troponin I Total Protein Albumin Blood Type A POSITIVE Antibody Screen Negative 04/17/19 04/17/19 04/17/19 06:30 08:40 11:44 WBC RBC Hgb Hct MCV MCH MCHC RDW Plt Count MPV Absolute Neuts (auto) Neutrophils % Lymphocytes % Monocytes % Eosinophils % Basophils % Nucleated RBC % PT with INR INR PTT (Actin FS) Sodium 135 L Potassium 3.7 Chloride 100 Carbon Dioxide 24 Anion Gap 10 BUN 33.8 H Creatinine 7.4 H* Est GFR (CKD-EPI)AfAm 8.51 Est GFR (CKD-EPI)NonAf 7.35 POC Glucometer 241 Random Glucose 236 H Lactic Acid 1.6 Calcium 8.5 Phosphorus Magnesium Total Bilirubin AST ALT Alkaline Phosphatase Creatine Kinase Troponin I Total Protein Albumin Blood Type Antibody Screen Active Medications Generic Name Dose Route Start Last Admin Trade Name Freq PRN Reason Stop Dose Admin Apixaban 5 mg 04/16/19 22:00 04/17/19 09:19 Eliquis - PO 5 mg BID [facility] Administration Atorvastatin Calcium 40 mg 04/16/19 22:00 04/16/19 21:03 Lipitor - PO 40 mg HS [facility] Administration Insulin Aspart 1 vial 04/17/19 13:15 04/17/19 14:06 Novolog Vial Sliding Scale - SQ 4 units ACHS [facility] Administration Protocol Pantoprazole Sodium 40 mg 04/16/19 22:00 04/17/19 09:19 Protonix - PO 40 mg BID [facility] Administration Pregabalin 50 mg 04/16/19 22:00 04/17/19 14:08 Lyrica - PO 50 mg TID [facility] Administration ASSESSMENT/PLAN: Mr. Guerrero is a 58 year old obese male with past medical history of ESRD on HD( Tues,Thurs,Sat), CVA (s/p 2 strokes, most recent 3 years ago with residual LLE weakness) NIDDM, CHF, CAD, HLD, HTN, bariatric surgery,anemia,COPD, DVT/PE, on eliquis, vascular disease(no stents), right calf ulcer,and chronic lower extremity leg wounds who was sent in by his [employer] Work[employer] Stamping for hypotension during hemodialysis today. He has been having symptoms of fever and chills since last night in addition to malaise and anorexia. He also reported right lower thigh redness and pain. He is being admitted for further medical management/treatment and ID consultation and wound care for right lower leg cellulitis. #Right Lower Extremity Cellulitis Currently afebrile, WBC 6.4, CT of right extremity and pelvis with no evidence of osteomyelitis, received a dose of IV zosyn and 2 doses of vancomycin Blood cultures pending, hx of VRE urine and MRSA calf wound, no need to do MRSA nares given pt already on vanco. Continue vancomycin renally dosed per ID will check vanco level in AM. ID consulted- Dr. Giron- culturing the wound CT of lower extremities- no osteomyelitis present, mild subcutaneous air, #ESRD Nephrology consulted- Dr. Win - s/p dialysis yesterday and will continue dialysis once pt leaves here #NIDDM BGM before meals and at bedtime Novolog insulin as per sliding scale #Hypertension Improved, no evidence of hypotension Hold metoprolol for now #CAD He denies anginal complaints Continue statin therapy Not on aspirin as patient is on systemic anticoagulation #Hyperlipidemia Continue statin #Chronic Lower Extremity Leg Wounds Wound care consulted- Dr Frederick - recommending bactroban to the right second digit. Pt underwent manual debridement of mycotic nails of right foot using nail nipper. - Continue surgical offloading shoe on the right foot, diabetic shoe with TMA insert left foot. - minimize weightbearing activity and appropriate glycemic management. -Continue treatment of the right leg with Dr. Madera. - He will f/u in 4 weeks. - no evidence of vascular intervention #History of PE Continue with eliquis 5 BID FEN no fluids indicated, no evidence of hypotension monitor electrolytes closely, check BMP in am renal, ADA, low sodium diet DVT Prophylaxsis continue with eliquis Visit type - Emergency Visit Emergency Visit: Yes ED Registration Date: 04/16/19 Care time: The patient presented to the Emergency Department on the above date and was hospitalized for further evaluation of their emergent condition. - New Patient This patient is new to me today: Yes Date on this admission: 04/18/19 - Critical Care Critical Care patient: No - Discharge Referral Referred to [facility] No ATTENDING PHYSICIAN STATEMENT I saw and evaluated the patient. I reviewed the resident's note and discussed the case with the resident. I agree with the resident's findings and plan as documented. SUBJECTIVE: OBJECTIVE: ASSESSMENT AND PLAN:
--- NOTE | 2019-04-17 14:21 | PN ---
Progress Note (short form) - Note Progress Note: ID consult dictated imp/reccd 58 yo man with esrd on HD, NIDDM, morbid obesity, developed chills Monday night , and sweats all night, took 2 tylenol and went to HD the next am- noted to have low bp at hd and sent to ED notes erythema and pain of his right inner thigh on Monday night cellulitis RLE ulcer esrd/hd prior history of MRSA and VRE continue contact isolation continue vanco based on levels rocephin daily reculture with open wound clinically improving vancomycin dosing based on levels, check vanco trough in am Problem List - Problems (1) Cellulitis Code(s): L03.90 - CELLULITIS, UNSPECIFIED (2) Wound of right leg Code(s): S81.801A - UNSPECIFIED OPEN WOUND, RIGHT LOWER LEG, INITIAL ENCOUNTER (3) ESRD (end stage renal disease) on dialysis Code(s): N18.6 - END STAGE RENAL DISEASE; Z99.2 - DEPENDENCE ON RENAL DIALYSIS (4) Diabetes mellitus Code(s): E11.9 - TYPE 2 DIABETES MELLITUS WITHOUT COMPLICATIONS (5) Obesity Code(s): E66.9 - OBESITY, UNSPECIFIED
[2019-04-17] MEDS ORDERED: cefTRIAXone SODIUM 1 GM VIAL ONE (15:38)
[2019-04-17] MEDS: CEFTRIAXONE 1 GM in DEXTROSE 5%-WATER - 50 ML IVPB SCH (15:42)
[2019-04-17] MEDS ORDERED: SODIUM CHLORIDE 250 ML IV PRN (16:09)
--- NOTE | 2019-04-17 16:09 | PN ---
Progress Note, Physician Chief Complaint: Pt seen and examined at bedside. He denies fever or chills. - Current Medication List Current Medications: Active Medications Apixaban (Eliquis -) 5 mg PO BID [facility] Last Admin: 04/17/19 09:19 Dose: 5 mg Atorvastatin Calcium (Lipitor -) 40 mg PO HS [facility] Last Admin: 04/16/19 21:03 Dose: 40 mg Ceftriaxone Sodium 1 gm/ (Dextrose) 50 mls @ 200 mls/hr IVPB DAILY [facility]; Protocol Last Admin: 04/17/19 15:42 Dose: 200 mls/hr Insulin Aspart (Novolog Vial Sliding Scale -) 1 vial SQ ACHS [facility]; Protocol Last Admin: 04/17/19 14:06 Dose: 4 units Pantoprazole Sodium (Protonix -) 40 mg PO BID [facility] Last Admin: 04/17/19 09:19 Dose: 40 mg Pregabalin (Lyrica -) 50 mg PO TID [facility] Last Admin: 04/17/19 14:08 Dose: 50 mg - Objective Vital Signs: Vital Signs Temperature 97.9 F 04/17/19 10:00 Pulse Rate 76 04/17/19 10:00 Respiratory Rate 20 04/17/19 10:00 Blood Pressure 107/54 L 04/17/19 10:00 O2 Sat by Pulse Oximetry (%) 99 04/16/19 21:30 Constitutional: Yes: Calm Eyes: Yes: Conjunctiva Clear HENT: Yes: Atraumatic Neck: Yes: Supple Cardiovascular: Yes: S1, S2 Respiratory: Yes: CTA Bilaterally Gastrointestinal: Yes: Soft, Abdomen, Obese Musculoskeletal: Yes: WNL Edema: Yes Edema: LLE: 1+, RLE: 1+ Neurological: Yes: Oriented Psychiatric: Yes: Oriented Labs: CBC, BMP 04/17/19 06:30 04/17/19 06:30 INR, PTT INR 1.25 (0.83-1.09) H 04/16/19 13:20 Problem List - Problems (1) Cellulitis Code(s): L03.90 - CELLULITIS, UNSPECIFIED (2) ESRD (end stage renal disease) Code(s): N18.6 - END STAGE RENAL DISEASE Assessment/Plan Current Medications Generic Name Dose Route Start Last Admin Trade Name Freq PRN Reason Stop Dose Admin Apixaban 5 mg 04/16/19 22:00 04/17/19 09:19 Eliquis - PO 5 mg BID [facility] Administration Atorvastatin Calcium 40 mg 04/16/19 22:00 04/16/19 21:03 Lipitor - PO 40 mg HS [facility] Administration Ceftriaxone Sodium 1 gm/ 50 mls @ 200 mls/hr 04/17/19 14:45 04/17/19 15:42 Dextrose IVPB 200 mls/hr DAILY [facility] Administration Protocol Insulin Aspart 1 vial 04/17/19 13:15 04/17/19 14:06 Novolog Vial Sliding Scale - SQ 4 units ACHS [facility] Administration Protocol Pantoprazole Sodium 40 mg 04/16/19 22:00 04/17/19 09:19 Protonix - PO 40 mg BID [facility] Administration Pregabalin 50 mg 04/16/19 22:00 04/17/19 14:08 Lyrica - PO 50 mg TID [facility] Administration Impression 1. ESRD 2. anemia 3. HTN 4. morbid obesity 5. CVA 6. hyperlipidemia 7. proteinuria - nephrotic 8. PVD 9. hypotension 10. PE Plan - cont abx - decrease lyrica dose - repeat labs in am - HD tomorrow - renal diet - follow cultures
--- NOTE | 2019-04-17 16:59 | CONS ---
DATE OF CONSULTATION: DATE OF DICTATION: 04/17/2019 INFECTIOUS DISEASE CONSULTATION HISTORY OF PRESENT ILLNESS: This is a 58-year-old man with end-stage renal disease, on dialysis. He has a history of PVD. He is status post left TMA. He has had partial amputation of the 2nd toe on his right foot as well. He has a chronic ulcer of his right lower extremity. On Monday he noted he had pain and erythema of his right inner thigh. On Monday night he had fevers and chills. He could stay warm. He had to turn up the heat and get under the blankets. This lasted all night. Monday morning he took Tylenol and went to his 5 a.m. dialysis. He was noted to be hypotensive during dialysis and was transferred to the ER after. He currently is feeling much better. He notes less pain and erythema of his thigh. He was treated with vancomycin and Zosyn in the ER. He has no respiratory symptoms. He has no GI symptoms. He otherwise feels well. Of note, he was recently in the hospital in March with a pulmonary embolus and was started on Eliquis. PAST MEDICAL HISTORY: Notable for CVA, hypertension, hyperlipidemia, sleep apnea, GERD, obesity, end-stage renal disease (on dialysis), NIDDM, . 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 PAST SURGICAL HISTORY: Notable for AV fistula graft. He has a new one in his left arm as he had a recent infected AV fistula in the fall of 2018 that required revision, which was done at [facility]. His additional surgical history is notable for the left TMA and he has had a sleeve gastrectomy. SOCIAL HISTORY: He lives at home. No history of cigarette or substance use. He was [place] the [place]. No travel history. ALLERGIES: SHELLFISH, BACTRIM AND BACTROBAN. MEDICATIONS: His medications at home include Januvia, Lyrica, Protonix, Lopressor, Lipitor and Eliquis. REVIEW OF SYSTEMS: As per HPI. PHYSICAL EXAMINATION: Vital Signs: His temperature is 97.9 (he has had no fever since admission). Pulse is 76. Blood pressure 107/67. Respiratory rate is 20. General: He is a pleasant man in no acute distress. He weighs 182 kg. HEENT: He is normocephalic. His eyes are anicteric. Neck: Supple. He has a left AV fistula, the site of which is clean. Heart: Regular rate and rhythm. Lungs: Distant lung sounds. Abdomen: Soft and nontender. Extremities: Notable for a well-healed left TMA. The right foot is actually remarkably good with minimal erosion on his toe, and he has superficial erosion and he has a superficial ulcer on the right lower extremity. A patchy erythema of his right inner thigh that is painful to touch, and some inguinal adenopathy. DIAGNOSTIC STUDIES: He had a CAT scan of his pelvis and lower extremity done in the ER that showed: No deep space infection. No fluid collection. He has atherosclerotic vascular calcifications. He has a left TMA. He has several enlarged inguinal nodes. Blood cultures are negative at 24 hours. SUMMARY: This is a 58-year-old man admitted with cellulitis of his right inner thigh. Most likely portal of entry is the chronic right lower extremity ulcer, which appears clean on exam. He is on dialysis as well. No other signs of infection. He has a prior history of MRSA and VRE. Would continue contact isolation. Continue vancomycin based on levels. Will add Rocephin daily. Would culture the wound. It will give us some idea what catherine he is colonized with. Clinically he is improving and hopefully will be able to go home in the next 48 hours. ROBERT ECHEVERRIA M.D. [id number] MTDD
--- NOTE | 2019-04-17 18:49 | PN ---
Teaching Attending Note Name of Resident: Marques Jonas ATTENDING PHYSICIAN STATEMENT I saw and evaluated the patient. I reviewed the resident's note and discussed the case with the resident. I agree with the resident's findings and plan as documented. SUBJECTIVE: Feels well, RLE discomfort. No fever. Chills resolved. No nausea/ vomiting. OBJECTIVE: Afebrile, Hemodynamically stable. Last Vital Signs Temp Pulse Resp BP Pulse Ox 97.9 F 76 20 107/54 L 99 04/17/19 10:04/17/19 10:04/17/19 10:04/17/19 10:04/17/19 09:00 HEENT - Atraumatic, normocephalic. Heart - S1, S2, RRR Lungs - clear to auscultation Abdomen - High BMI. soft, non-tender. Bowel Sounds normal. Extremities - Bilateral venous stasis skin changes with ulcer to RLE (mid-oglesby/ calf area) with ascending erythema. R 2nd toe amputated. s/p L TM amputation. LEs neurovascularly intact. Laboratory Results - last 24 hr 04/17/19 04/17/19 04/17/19 06:18 06:30 06:30 WBC 6.4 RBC 3.71 L Hgb 12.1 Hct 35.5 D MCV 95.7 MCH 32.7 MCHC 34.1 RDW 15.7 Plt Count 167 MPV 10.0 Sodium 135 L Potassium 3.7 Chloride 100 Carbon Dioxide 24 Anion Gap 10 BUN 33.8 H Creatinine 7.4 H* Est GFR (CKD-EPI)AfAm 8.51 Est GFR (CKD-EPI)NonAf 7.35 POC Glucometer 247 Random Glucose 236 H Lactic Acid Calcium 8.5 04/17/19 04/17/19 04/17/19 08:40 11:44 16:43 WBC RBC Hgb Hct MCV MCH MCHC RDW Plt Count MPV Sodium Potassium Chloride Carbon Dioxide Anion Gap BUN Creatinine Est GFR (CKD-EPI)AfAm Est GFR (CKD-EPI)NonAf POC Glucometer 241 214 Random Glucose Lactic Acid 1.6 Calcium Current Medications Generic Name Dose Route Start Last Admin Trade Name Freq PRN Reason Stop Dose Admin Apixaban 5 mg 04/16/19 22:00 04/17/19 09:19 Eliquis - PO 5 mg BID [facility] Administration Atorvastatin Calcium 40 mg 04/16/19 22:00 04/16/19 21:03 Lipitor - PO 40 mg HS [facility] Administration Ceftriaxone Sodium 1 gm/ 50 mls @ 200 mls/hr 04/17/19 14:45 04/17/19 15:42 Dextrose IVPB 200 mls/hr DAILY [facility] Administration Protocol Sodium Chloride 250 mls @ 3,000 mls/hr 04/17/19 16:09 Normal Saline - IV 04/18/19 16:09 PRN PRN Hypotension during Dialysis Insulin Aspart 1 vial 04/17/19 13:15 04/17/19 16:51 Novolog Vial Sliding Scale - SQ 4 units ACHS [facility] Administration Protocol Pantoprazole Sodium 40 mg 04/16/19 22:00 04/17/19 09:19 Protonix - PO 40 mg BID [facility] Administration Pregabalin 50 mg 04/16/19 22:00 04/17/19 14:08 Lyrica - PO 50 mg TID [facility] Administration Home Medications Medication Instructions Recorded Sitagliptin Phosphate [Januvia -] 25 mg PO DAILY@0700 #30 tab 08/15/17 Metoprolol Tartrate [Lopressor -] 50 mg PO DAILY 12/27/18 Pantoprazole Sodium [Protonix -] 40 mg PO BID #60 tablet.ec 02/01/19 Apixaban [Eliquis - Starter Pack 5 mg PO UTDICT 30 Days #30 tab 03/08/19 (For VTE)] Atorvastatin Ca [Lipitor] 40 mg PO HS #30 tablet 03/08/19 Pregabalin [Lyrica] 50 mg PO TID #100 capsule MDD 150mg 03/08/19 ASSESSMENT AND PLAN: 58 year old male with history of ESRD on HD TTS, Hx CVA (residual LLE weakness) , DM 2, Chronic Diastolic CHF, CAD, HLD, HTN, Obesity s/p Bariatric Surgery, COPD, Hx DVT/PE on Eliquis, PVD, Chronic LE ulcer, referred to ED by Nephrology for Hypotension and chills during HD, found to have RLE infected ulcer/ cellulitis. 1. RLE Infected Ulcer/Cellulitis Wound Cx CT RLE - no evidenc eof OM Received IV Zosyn/Vanco - switched to Ceftriaxone/Vanco by ID pending final Cx results. Wound Care recommendations appreciated. Afebrile, Hemodynamically stable. 2. ESRD on HD Nephrology following 3. DM 2 with Neuropathy - novolog as per sliding scale. Hold Januvia. Continue Lyrica. 4. HTN - Hypotensive during HD, now improved. Metoprolol held temporarily. 5. CAD - Continue Statin. Will resume BB once BP rebounds. 6. HLD - continue Statin 7. Hx DVT/PE - Continue Eliquis. DVT Px - Eliquis.
[2019-04-17] MEDS: ATORVASTATIN CA 40 MG TABLET (FP) PO SCH (22:22)
[2019-04-18] MEDS: PREGABALIN 50 MG CAPSULE PO SCH ×3 (06:29→21:48)
[2019-04-18] MEDS: INSULIN SLIDING SCALE (NOVOLOG) 1 VIAL SQ SCH ×4 (06:31→21:48)
[2019-04-18 07:00] LABS: BASO % 1.3 % (0-2.0); EOS % 6.1 % (0-4.5); HEMOGLOBIN 12.2 GM/dL (11.7-16.9); LYMPH % 15.3 % (8-40); MCH 32.2 pg (25.7-33.7); MCHC 33.8 g/dl (32.0-35.9); MEAN CELL VOLUME 95.2 fl (80-96); MEAN PLT VOLUME 9.4 fl (7.5-11.1); MONO % 10.7 % (3.8-10.2); NEUT % 66.6 % (42.8-82.8); PLATELET COUNT 191 K/MM3 (134-434); RBC 3.78 M/mm3 (4.00-5.60); RDW 15.4 % (11.9-15.9)
[2019-04-18 07:44] LABS: ALBUMIN 2.6 g/dl (3.4-5.0); BILIRUBIN,TOTAL 0.5 mg/dL (0.2-1); BLOOD UREA NITROGEN 47.6 mg/dL (7-18); CALCIUM 8.7 mg/dL (8.5-10.1); POTASSIUM 4.5 mmol/L (3.5-5.1); TOT PROT 6.3 g/dl (6.4-8.2)
[2019-04-18 08:03] LABS: CREATININE 9.6 mg/dL (0.55-1.3)
[2019-04-18] MEDS ORDERED: DEXTROSE 5%-WATER 100 ML IVPB ONE (11:01)
[2019-04-18] MEDS ORDERED: cefTRIAXone SODIUM 1 GM VIAL ONE (11:01)
[2019-04-18] MEDS ORDERED: VANCOMYCIN 500 MG VIAL (RESTRICTED TO ID ONLY) ONE (11:01)
[2019-04-18] MEDS ORDERED: DEXTROSE 5%-WATER - 50 ML IVPB ONE (11:01)
[2019-04-18] MEDS: CEFTRIAXONE 1 GM in DEXTROSE 5%-WATER - 50 ML IVPB SCH (11:04)
[2019-04-18] MEDS: APIXABAN 5 MG TABLET PO SCH ×2 (11:04→21:48)
[2019-04-18] MEDS: PANTOPRAZOLE 40 MG TABLET PO SCH ×2 (11:04→21:48)
[2019-04-18] MEDS: VANCOMYCIN 500 MG in DEXTROSE 5%-WATER 100 ML IVPB SCH (11:04)
[2019-04-18 12:01] LABS: BLOOD UREA NITROGEN 16.7 mg/dL (7-18)
--- NOTE | 2019-04-18 14:34 | PN ---
Teaching Attending Note Name of Resident: Marques Jonas ATTENDING PHYSICIAN STATEMENT I saw and evaluated the patient. I reviewed the resident's note and discussed the case with the resident. I agree with the resident's findings and plan as documented. SUBJECTIVE: Feels well, RLE discomfort improved. No fever. Chills resolved. No nausea/vomiting. OBJECTIVE: Afebrile, Hemodynamically stable. Last Vital Signs Temp Pulse Resp BP Pulse Ox 97.3 F L 82 17 120/66 99 04/18/19 14:10 04/18/19 14:10 04/18/19 14:10 04/18/19 14:10 04/17/19 21:00 Heart - S1, S2, RRR Lungs - clear to auscultation Abdomen - High BMI. soft, non-tender. Bowel Sounds normal. Extremities - Bilateral venous stasis skin changes with ulcer to RLE (mid-oglesby/ calf area) with ascending erythema. R 2nd toe amputated. s/p L TM amputation. LEs neurovascularly intact. Laboratory Results - last 24 hr 04/17/19 04/17/19 04/18/19 16:43 22:24 06:25 WBC RBC Hgb Hct MCV MCH MCHC RDW Plt Count MPV Absolute Neuts (auto) Neutrophils % Lymphocytes % Monocytes % Eosinophils % Basophils % Nucleated RBC % Sodium Potassium Chloride Carbon Dioxide Anion Gap BUN Creatinine Est GFR (CKD-EPI)AfAm Est GFR (CKD-EPI)NonAf POC Glucometer 214 210 Random Glucose Calcium Total Bilirubin AST ALT Alkaline Phosphatase Total Protein Albumin Random Vancomycin 15.7 L 04/18/19 04/18/19 04/18/19 06:25 06:25 06:30 WBC 7.0 RBC 3.78 L Hgb 12.2 Hct 36.0 MCV 95.2 MCH 32.2 MCHC 33.8 RDW 15.4 Plt Count 191 MPV 9.4 Absolute Neuts (auto) 4.7 Neutrophils % 66.6 Lymphocytes % 15.3 D Monocytes % 10.7 H Eosinophils % 6.1 H D Basophils % 1.3 Nucleated RBC % 0 Sodium 138 Potassium 4.5 Chloride 103 Carbon Dioxide 25 Anion Gap 10 BUN 47.6 H Creatinine 9.6 H* Est GFR (CKD-EPI)AfAm 6.22 Est GFR (CKD-EPI)NonAf 5.36 POC Glucometer 102 Random Glucose 108 H Calcium 8.7 Total Bilirubin 0.5 AST 15 ALT 18 Alkaline Phosphatase 53 Total Protein 6.3 L Albumin 2.6 L Random Vancomycin 04/18/19 04/18/19 11:00 11:28 WBC RBC Hgb Hct MCV MCH MCHC RDW Plt Count MPV Absolute Neuts (auto) Neutrophils % Lymphocytes % Monocytes % Eosinophils % Basophils % Nucleated RBC % Sodium Potassium Chloride Carbon Dioxide Anion Gap BUN 16.7 Creatinine 4.0 H Est GFR (CKD-EPI)AfAm 17.91 Est GFR (CKD-EPI)NonAf 15.46 POC Glucometer 224 Random Glucose Calcium Total Bilirubin AST ALT Alkaline Phosphatase Total Protein Albumin Random Vancomycin Current Medications Generic Name Dose Route Start Last Admin Trade Name Freq PRN Reason Stop Dose Admin Apixaban 5 mg 04/16/19 22:00 04/18/19 11:04 Eliquis - PO 5 mg BID [facility] Administration Atorvastatin Calcium 40 mg 04/16/19 22:00 04/17/19 22:22 Lipitor - PO 40 mg HS [facility] Administration Ceftriaxone Sodium 1 gm/ 50 mls @ 200 mls/hr 04/17/19 14:45 04/18/19 11:04 Dextrose IVPB 200 mls/hr DAILY [facility] Administration Protocol Sodium Chloride 250 mls @ 3,000 mls/hr 04/17/19 16:09 Normal Saline - IV 04/18/19 16:09 PRN PRN Hypotension during Dialysis Vancomycin HCl 500 mg/ 100 mls @ 100 mls/hr 04/18/19 10:00 04/18/19 11:04 Dextrose IVPB 100 mls/hr Q24H [facility] Administration Insulin Aspart 1 vial 04/17/19 13:15 04/18/19 11:31 Novolog Vial Sliding Scale - SQ 4 units ACHS [facility] Administration Protocol Pantoprazole Sodium 40 mg 04/16/19 22:00 04/18/19 11:04 Protonix - PO 40 mg BID [facility] Administration Pregabalin 50 mg 04/16/19 22:00 04/18/19 13:46 Lyrica - PO 50 mg TID [facility] Administration Home Medications Medication Instructions Recorded Sitagliptin Phosphate [Januvia -] 25 mg PO DAILY@0700 #30 tab 08/15/17 Metoprolol Tartrate [Lopressor -] 50 mg PO DAILY 12/27/18 Pantoprazole Sodium [Protonix -] 40 mg PO BID #60 tablet.ec 02/01/19 Apixaban [Eliquis - Starter Pack 5 mg PO UTDICT 30 Days #30 tab 03/08/19 (For VTE)] Atorvastatin Ca [Lipitor] 40 mg PO HS #30 tablet 03/08/19 Pregabalin [Lyrica] 50 mg PO TID #100 capsule MDD 150mg 03/08/19 Apixaban [Eliquis] 1 tab PO BID 04/18/19 Atorvastatin Ca [Lipitor] 1 tab PO HS 04/18/19 Clopidogrel Bisulfate [Plavix] 1 tab PO DAILY 04/18/19 Metoprolol Succinate 1 tab PO DAILY 04/18/19 Pregabalin [Lyrica -] 1 cap PO TID PRN 04/18/19 Sitagliptin Phosphate [Januvia] 1 tab PO DAILY 04/18/19 ASSESSMENT AND PLAN: 58 year old male with history of ESRD on HD TTS, Hx CVA (residual LLE weakness) , DM 2, Chronic Diastolic CHF, CAD, HLD, HTN, Obesity s/p Bariatric Surgery, COPD, GERD, Hx DVT/PE on Eliquis, PVD, Chronic LE ulcer, referred to ED by Nephrology for Hypotension and chills during HD, found to have RLE infected ulcer/cellulitis. 1. RLE Infected Ulcer/Cellulitis Wound Cx pending CT RLE - no evidence of OM Received IV Zosyn/Vanco - switched to Ceftriaxone/Vanco by ID pending final Cx results. Wound Care recommendations appreciated. Afebrile, Hemodynamically stable. 2. ESRD on HD Nephrology following 3. DM 2 with Neuropathy - Novolog as per sliding scale. Hold Januvia. Continue Lyrica. 4. HTN - Hypotensive during HD, now improved. Metoprolol held temporarily. 5. CAD - Continue Statin. Will resume BB once BP rebounds. 6. HLD - continue Statin 7. Hx DVT/PE - Continue Eliquis. 8. GERD - continue Pantoprazole. DVT Px - Eliquis.
--- NOTE | 2019-04-18 14:50 | PN ---
Progress Note, Physician History of Present Illness: Pt seen and examined at bedside. He tolerated HD today. - Current Medication List Current Medications: Active Medications Apixaban (Eliquis -) 5 mg PO BID [facility] Last Admin: 04/18/19 11:04 Dose: 5 mg Atorvastatin Calcium (Lipitor -) 40 mg PO HS [facility] Last Admin: 04/17/19 22:22 Dose: 40 mg Ceftriaxone Sodium 1 gm/ (Dextrose) 50 mls @ 200 mls/hr IVPB DAILY [facility]; Protocol Last Admin: 04/18/19 11:04 Dose: 200 mls/hr Sodium Chloride (Normal Saline -) 250 mls @ 3,000 mls/hr IV PRN PRN PRN Reason: Hypotension during Dialysis Stop: 04/18/19 16:09 Vancomycin HCl 500 mg/ (Dextrose) 100 mls @ 100 mls/hr IVPB Q24H [facility] Last Admin: 04/18/19 11:04 Dose: 100 mls/hr Insulin Aspart (Novolog Vial Sliding Scale -) 1 vial SQ ACHS [facility]; Protocol Last Admin: 04/18/19 11:31 Dose: 4 units Pantoprazole Sodium (Protonix -) 40 mg PO BID [facility] Last Admin: 04/18/19 11:04 Dose: 40 mg Pregabalin (Lyrica -) 50 mg PO TID [facility] Last Admin: 04/18/19 13:46 Dose: 50 mg - Objective Vital Signs: Vital Signs Temperature 97.3 F L 04/18/19 14:10 Pulse Rate 82 04/18/19 14:10 Respiratory Rate 17 04/18/19 14:10 Blood Pressure 120/66 04/18/19 14:10 O2 Sat by Pulse Oximetry (%) 99 04/17/19 21:00 Constitutional: Yes: Calm Eyes: Yes: Conjunctiva Clear HENT: Yes: Atraumatic Cardiovascular: Yes: S1, S2 Respiratory: Yes: CTA Bilaterally Gastrointestinal: Yes: Soft, Abdomen, Obese Genitourinary: Yes: WNL Musculoskeletal: Yes: WNL Edema: Yes Edema: LLE: 1+, RLE: 1+ Integumentary: Yes: Erythema Neurological: Yes: Oriented Labs: CBC, BMP 04/18/19 06:25 04/18/19 11:00 INR, PTT INR 1.25 (0.83-1.09) H 04/16/19 13:20 Problem List - Problems (1) Cellulitis Code(s): L03.90 - CELLULITIS, UNSPECIFIED (2) ESRD (end stage renal disease) Code(s): N18.6 - END STAGE RENAL DISEASE Assessment/Plan Current Medications Generic Name Dose Route Start Last Admin Trade Name Freq PRN Reason Stop Dose Admin Apixaban 5 mg 04/16/19 22:00 04/18/19 11:04 Eliquis - PO 5 mg BID [facility] Administration Atorvastatin Calcium 40 mg 04/16/19 22:00 04/17/19 22:22 Lipitor - PO 40 mg HS [facility] Administration Ceftriaxone Sodium 1 gm/ 50 mls @ 200 mls/hr 04/17/19 14:45 04/18/19 11:04 Dextrose IVPB 200 mls/hr DAILY [facility] Administration Protocol Sodium Chloride 250 mls @ 3,000 mls/hr 04/17/19 16:09 Normal Saline - IV 04/18/19 16:09 PRN PRN Hypotension during Dialysis Vancomycin HCl 500 mg/ 100 mls @ 100 mls/hr 04/18/19 10:00 04/18/19 11:04 Dextrose IVPB 100 mls/hr Q24H [facility] Administration Insulin Aspart 1 vial 04/17/19 13:15 04/18/19 11:31 Novolog Vial Sliding Scale - SQ 4 units ACHS [facility] Administration Protocol Pantoprazole Sodium 40 mg 04/16/19 22:00 04/18/19 11:04 Protonix - PO 40 mg BID [facility] Administration Pregabalin 50 mg 04/16/19 22:00 04/18/19 13:46 Lyrica - PO 50 mg TID [facility] Administration Impression 1. ESRD 2. anemia 3. HTN 4. morbid obesity 5. CVA 6. hyperlipidemia 7. proteinuria - nephrotic 8. PVD 9. hypotension 10. PE Plan - HD today - cont abx - follow culcutres - decrease lyrica dose - repeat labs in am - renal diet
--- NOTE | 2019-04-18 17:50 | PN ---
Progress Note (short form) - Note Progress Note: feels well Vital Signs Period Temp Pulse Resp BP Sys/Leon Pulse Ox Last 24 Hr 97.3 F-98.8 F 52-84 17-20 90-133/36-85 99 cor-rrr lungs clear abd soft,nt still some erythema of the inner thigh small dry ulcer pretibial are CBC, BMP 04/18/19 06:25 04/18/19 11:00 Microbiology 04/17/19 17:19 Leg - Right Lower Gram Stain - Final 04/16/19 13:40 Blood - Peripheral Venous Blood Culture - Preliminary NO GROWTH OBTAINED AFTER 48 HOURS, INCUBATION TO CONTINUE FOR 3 DAYS. 04/16/19 13:40 Blood - Peripheral Venous Blood Culture - Preliminary NO GROWTH OBTAINED AFTER 48 HOURS, INCUBATION TO CONTINUE FOR 3 DAYS. vanco trough 15.7 a/p cellulitis RLE ulcer esrd/hd prior history of MRSA and VRE continue contact isolation continue vanco based on levels rocephin daily hopefully home in next 24-48 hours clinically imlproving, no longer tender to touch
--- NOTE | 2019-04-18 18:46 | PN ---
Physical Exam: SUBJECTIVE: Patient seen getting dialysis. No acute complaints. Lying comfortably in bed, afebrile overnight. OBJECTIVE: Vital Signs Period Temp Pulse Resp BP Sys/Leon Pulse Ox Last 24 Hr 97.3 F-98.4 F 52-84 17-20 100-133/48-85 99 GENERAL: The patient is awake, alert, and fully oriented, in no acute distress. LUNGS: Breath sounds equal, clear to auscultation bilaterally, no wheezes, no crackles, no accessory muscle use. HEART: Regular rate and rhythm, S1, S2 without murmur, rub or gallop. ABDOMEN: Soft, nontender, globose abdomen. EXTREMITIES: 2+ dp pulses b/l , warm well perfused no edema. NEUROLOGICAL: Cranial nerves II through XII grossly intact. Normal speech, gait not observed. PSYCH: Normal mood, normal affect. SKIN: b/l dry skin peeling, swollen, small abrasion noted on the dorsal aspect of the right second digit, measuring 0.3 cm x 0.3 cm x 0.1 cm, no fluctuance or fluid collection noted, erythematous well demarcated rash warm to touch, nontender to palpation on right leg, left leg s/p TMA . Laboratory Results - last 24 hr 04/17/19 04/18/19 04/18/19 22:24 06:25 06:25 WBC 7.0 RBC 3.78 L Hgb 12.2 Hct 36.0 MCV 95.2 MCH 32.2 MCHC 33.8 RDW 15.4 Plt Count 191 MPV 9.4 Absolute Neuts (auto) 4.7 Neutrophils % 66.6 Lymphocytes % 15.3 D Monocytes % 10.7 H Eosinophils % 6.1 H D Basophils % 1.3 Nucleated RBC % 0 Sodium Potassium Chloride Carbon Dioxide Anion Gap BUN Creatinine Est GFR (CKD-EPI)AfAm Est GFR (CKD-EPI)NonAf POC Glucometer 210 Random Glucose Calcium Total Bilirubin AST ALT Alkaline Phosphatase Total Protein Albumin Random Vancomycin 15.7 L 04/18/19 04/18/19 04/18/19 06:25 06:30 11:00 WBC RBC Hgb Hct MCV MCH MCHC RDW Plt Count MPV Absolute Neuts (auto) Neutrophils % Lymphocytes % Monocytes % Eosinophils % Basophils % Nucleated RBC % Sodium 138 Potassium 4.5 Chloride 103 Carbon Dioxide 25 Anion Gap 10 BUN 47.6 H 16.7 Creatinine 9.6 H* 4.0 H Est GFR (CKD-EPI)AfAm 6.22 17.91 Est GFR (CKD-EPI)NonAf 5.36 15.46 POC Glucometer 102 Random Glucose 108 H Calcium 8.7 Total Bilirubin 0.5 AST 15 ALT 18 Alkaline Phosphatase 53 Total Protein 6.3 L Albumin 2.6 L Random Vancomycin 04/18/19 04/18/19 11:28 16:59 WBC RBC Hgb Hct MCV MCH MCHC RDW Plt Count MPV Absolute Neuts (auto) Neutrophils % Lymphocytes % Monocytes % Eosinophils % Basophils % Nucleated RBC % Sodium Potassium Chloride Carbon Dioxide Anion Gap BUN Creatinine Est GFR (CKD-EPI)AfAm Est GFR (CKD-EPI)NonAf POC Glucometer 224 267 Random Glucose Calcium Total Bilirubin AST ALT Alkaline Phosphatase Total Protein Albumin Random Vancomycin Active Medications Generic Name Dose Route Start Last Admin Trade Name Freq PRN Reason Stop Dose Admin Apixaban 5 mg 04/16/19 22:00 04/18/19 11:04 Eliquis - PO 5 mg BID [facility] Administration Atorvastatin Calcium 40 mg 04/16/19 22:00 04/17/19 22:22 Lipitor - PO 40 mg HS [facility] Administration Ceftriaxone Sodium 1 gm/ 50 mls @ 200 mls/hr 04/17/19 14:45 04/18/19 11:04 Dextrose IVPB 200 mls/hr DAILY [facility] Administration Protocol Sodium Chloride 250 mls @ 3,000 mls/hr 04/17/19 16:09 Normal Saline - IV 04/18/19 16:09 PRN PRN Hypotension during Dialysis Vancomycin HCl 500 mg/ 100 mls @ 100 mls/hr 04/18/19 10:00 04/18/19 11:04 Dextrose IVPB 100 mls/hr Q24H [facility] Administration Insulin Aspart 1 vial 04/17/19 13:15 04/18/19 17:01 Novolog Vial Sliding Scale - SQ 6 units ACHS [facility] Administration Protocol Pantoprazole Sodium 40 mg 04/16/19 22:00 04/18/19 11:04 Protonix - PO 40 mg BID [facility] Administration Pregabalin 50 mg 04/18/19 22:00 Lyrica - PO BID [facility] ASSESSMENT/PLAN: Mr. Guerrero is a 58 year old obese male with past medical history of ESRD on HD( Tues,Thcindy,Sat), CVA (s/p 2 strokes, most recent 3 years ago with residual LLE weakness) NIDDM, CHF, CAD, HLD, HTN, bariatric surgery,anemia,COPD, DVT/PE, on eliquis, vascular disease(no stents), right calf ulcer,and chronic lower extremity leg wounds who was sent in by his [employer] for hypotension during hemodialysis today. He has been having symptoms of fever and chills since last night in addition to malaise and anorexia. He also reported right lower thigh redness and pain. He is being admitted for further medical management/treatment and ID consultation and wound care for right lower leg cellulitis. #Right Lower Extremity Cellulitis Currently afebrile, WBC 6.4, CT of right extremity and pelvis with no evidence of osteomyelitis, mild subQair Blood cultures pending Continue vancomycin renally dosed (500mg daily)per ID vanco level low today and continue rocephin. ID consulted- Dr. Giron- culturing the wound #ESRD Nephrology consulted- Dr. Win - s/p dialysis today and will continue dialysis once pt leaves here #NIDDM BGM before meals and at bedtime Novolog insulin as per sliding scale #Hypertension Improved, no evidence of hypotension Hold metoprolol for now #CAD He denies anginal complaints Continue statin therapy Not on aspirin as patient is on systemic anticoagulation #Hyperlipidemia Continue statin #Chronic Lower Extremity Leg Wounds Wound care consulted- Dr Frederick - recommending bactroban to the right second digit. Pt underwent manual debridement of mycotic nails of right foot using nail nipper. - Continue surgical offloading shoe on the right foot, diabetic shoe with TMA insert left foot. - minimize weightbearing activity and appropriate glycemic management. -Continue treatment of the right leg with Dr. Madera. - He will f/u in 4 weeks. - no evidence of vascular intervention #History of PE Continue with eliquis 5 BID FEN no fluids indicated, no evidence of hypotension monitor electrolytes closely, check BMP in am renal, ADA, low sodium diet DVT Prophylaxsis continue with eliquis Visit type - Emergency Visit Emergency Visit: Yes ED Registration Date: 04/16/19 Care time: The patient presented to the Emergency Department on the above date and was hospitalized for further evaluation of their emergent condition. - New Patient This patient is new to me today: No - Critical Care Critical Care patient: No - Discharge Referral Referred to [facility] No ATTENDING PHYSICIAN STATEMENT I saw and evaluated the patient. I reviewed the resident's note and discussed the case with the resident. I agree with the resident's findings and plan as documented. SUBJECTIVE: OBJECTIVE: ASSESSMENT AND PLAN:
[2019-04-18] MEDS: ATORVASTATIN CA 40 MG TABLET (FP) PO SCH (21:48)
[2019-04-19] MEDS: INSULIN SLIDING SCALE (NOVOLOG) 1 VIAL SQ SCH ×3 (06:32→17:03)
[2019-04-19 07:58] LABS: BASO % 1.2 % (0-2.0); EOS % 6.1 % (0-4.5); HEMATOCRIT 37.2 % (35.4-49); HEMOGLOBIN 12.5 GM/dL (11.7-16.9); LYMPH % 20.5 % (8-40); MCH 32.2 pg (25.7-33.7); MCHC 33.5 g/dl (32.0-35.9); MEAN CELL VOLUME 96.2 fl (80-96); MEAN PLT VOLUME 9.7 fl (7.5-11.1); MONO % 8.3 % (3.8-10.2); NEUT % 63.9 % (42.8-82.8); PLATELET COUNT 192 K/MM3 (134-434); RBC 3.87 M/mm3 (4.00-5.60); RDW 15.7 % (11.9-15.9); WHITE BLOOD COUNT 5.9 K/mm3 (4.0-10.0)
[2019-04-19 08:52] LABS: ALBUMIN 2.7 g/dl (3.4-5.0); BILIRUBIN,TOTAL 0.8 mg/dL (0.2-1); BLOOD UREA NITROGEN 35.1 mg/dL (7-18); CALCIUM 8.2 mg/dL (8.5-10.1); CREATININE 7.2 mg/dL (0.55-1.3); POTASSIUM 3.8 mmol/L (3.5-5.1); TOT PROT 6.6 g/dl (6.4-8.2)
[2019-04-19] MEDS ORDERED: DEXTROSE 5%-WATER - 50 ML IVPB ONE (10:54)
[2019-04-19] MEDS ORDERED: cefTRIAXone SODIUM 1 GM VIAL ONE (10:54)
[2019-04-19] MEDS: PANTOPRAZOLE 40 MG TABLET PO SCH (10:58)
[2019-04-19] MEDS: PREGABALIN 50 MG CAPSULE PO SCH (10:58)
[2019-04-19] MEDS: APIXABAN 5 MG TABLET PO SCH (10:58)
[2019-04-19] MEDS: CEFTRIAXONE 1 GM in DEXTROSE 5%-WATER - 50 ML IVPB SCH (12:24)
[2019-04-19] MEDS ORDERED: VANCOMYCIN 500 MG VIAL (RESTRICTED TO ID ONLY) ONE (13:37)
[2019-04-19] MEDS ORDERED: DEXTROSE 5%-WATER 100 ML IVPB ONE (13:38)
[2019-04-19] MEDS: VANCOMYCIN 500 MG in DEXTROSE 5%-WATER 100 ML IVPB SCH (13:45)
--- NOTE | 2019-04-19 14:08 | PN ---
Teaching Attending Note Name of Resident: Marques Jonas ATTENDING PHYSICIAN STATEMENT I saw and evaluated the patient. I reviewed the resident's note and discussed the case with the resident. I agree with the resident's findings and plan as documented. SUBJECTIVE: Feels well, RLE discomfort much improved. No fever. Chills resolved. No nausea/vomiting. OBJECTIVE: Afebrile, Hemodynamically stable. Last Vital Signs Temp Pulse Resp BP Pulse Ox 97.9 F 75 18 113/67 99 04/19/19 10:00 04/19/19 10:00 04/19/19 10:00 04/19/19 10:04/18/19 21:00 Heart - S1, S2, RRR Lungs - clear to auscultation Abdomen - High BMI. soft, non-tender. Bowel Sounds normal. Extremities - Bilateral venous stasis skin changes with ulcer to RLE (mid-oglesby/ calf area) with ascending erythema (improved, less tender). R 2nd toe amputated. s/p L TM amputation. LEs neurovascularly intact. Laboratory Results - last 24 hr 04/18/19 04/18/19 04/18/19 07:30 16:59 21:46 WBC RBC Hgb Hct MCV MCH MCHC RDW Plt Count MPV Absolute Neuts (auto) Neutrophils % Lymphocytes % Monocytes % Eosinophils % Basophils % Nucleated RBC % Sodium Potassium Chloride Carbon Dioxide Anion Gap BUN Creatinine Est GFR (CKD-EPI)AfAm Est GFR (CKD-EPI)NonAf POC Glucometer 267 210 Random Glucose Calcium Total Bilirubin AST ALT Alkaline Phosphatase Total Protein Albumin Random Vancomycin Hep Bs Antigen Negative Hep C Ab Diagnostic <0.1 04/19/19 04/19/19 04/19/19 06:05 06:05 06:30 WBC 5.9 RBC 3.87 L Hgb 12.5 Hct 37.2 MCV 96.2 H MCH 32.2 MCHC 33.5 RDW 15.7 Plt Count 192 MPV 9.7 Absolute Neuts (auto) 3.8 Neutrophils % 63.9 Lymphocytes % 20.5 D Monocytes % 8.3 Eosinophils % 6.1 H Basophils % 1.2 Nucleated RBC % 0 Sodium 137 Potassium 3.8 Chloride 98 Carbon Dioxide 30 Anion Gap 9 BUN 35.1 H Creatinine 7.2 H Est GFR (CKD-EPI)AfAm 8.80 Est GFR (CKD-EPI)NonAf 7.59 POC Glucometer 162 Random Glucose 167 H Calcium 8.2 L Total Bilirubin 0.8 AST 15 ALT 17 Alkaline Phosphatase 56 Total Protein 6.6 Albumin 2.7 L Random Vancomycin Hep Bs Antigen Hep C Ab Diagnostic 04/19/19 04/19/19 08:35 12:22 WBC RBC Hgb Hct MCV MCH MCHC RDW Plt Count MPV Absolute Neuts (auto) Neutrophils % Lymphocytes % Monocytes % Eosinophils % Basophils % Nucleated RBC % Sodium Potassium Chloride Carbon Dioxide Anion Gap BUN Creatinine Est GFR (CKD-EPI)AfAm Est GFR (CKD-EPI)NonAf POC Glucometer 268 Random Glucose Calcium Total Bilirubin AST ALT Alkaline Phosphatase Total Protein Albumin Random Vancomycin 15.7 L Hep Bs Antigen Hep C Ab Diagnostic Current Medications Generic Name Dose Route Start Last Admin Trade Name Freq PRN Reason Stop Dose Admin Apixaban 5 mg 04/16/19 22:00 04/19/19 10:58 Eliquis - PO 5 mg BID [facility] Administration Atorvastatin Calcium 40 mg 04/16/19 22:00 04/18/19 21:48 Lipitor - PO 40 mg HS [facility] Administration Ceftriaxone Sodium 1 gm/ 50 mls @ 200 mls/hr 04/17/19 14:45 04/19/19 12:24 Dextrose IVPB 200 mls/hr DAILY [facility] Administration Protocol Sodium Chloride 250 mls @ 3,000 mls/hr 04/17/19 16:09 Normal Saline - IV 04/18/19 16:09 PRN PRN Hypotension during Dialysis Vancomycin HCl 500 mg/ 100 mls @ 100 mls/hr 04/18/19 10:00 04/19/19 13:45 Dextrose IVPB 100 mls/hr Q24H [facility] Administration Insulin Aspart 1 vial 04/17/19 13:15 04/19/19 12:23 Novolog Vial Sliding Scale - SQ 6 units ACHS [facility] Administration Protocol Pantoprazole Sodium 40 mg 04/16/19 22:00 04/19/19 10:58 Protonix - PO 40 mg BID [facility] Administration Pregabalin 50 mg 04/18/19 22:00 04/19/19 10:58 Lyrica - PO 50 mg BID [facility] Administration Home Medications Medication Instructions Recorded Sitagliptin Phosphate [Januvia -] 25 mg PO DAILY@0700 #30 tab 08/15/17 Metoprolol Tartrate [Lopressor -] 50 mg PO DAILY 12/27/18 Pantoprazole Sodium [Protonix -] 40 mg PO BID #60 tablet.ec 02/01/19 Apixaban [Eliquis - Starter Pack 5 mg PO UTDICT 30 Days #30 tab 03/08/19 (For VTE)] Atorvastatin Ca [Lipitor] 40 mg PO HS #30 tablet 03/08/19 Pregabalin [Lyrica] 50 mg PO TID #100 capsule MDD 150mg 03/08/19 Apixaban [Eliquis] 1 tab PO BID 04/18/19 Atorvastatin Ca [Lipitor] 1 tab PO HS 04/18/19 Clopidogrel Bisulfate [Plavix] 1 tab PO DAILY 04/18/19 Metoprolol Succinate 1 tab PO DAILY 04/18/19 Pregabalin [Lyrica -] 1 cap PO TID PRN 04/18/19 Sitagliptin Phosphate [Januvia] 1 tab PO DAILY 04/18/19 ASSESSMENT AND PLAN: 58 year old male with history of ESRD on HD TTS, Hx CVA (residual LLE weakness) , DM 2, Chronic Diastolic CHF, CAD, HLD, HTN, Obesity s/p Bariatric Surgery, COPD, GERD, Hx DVT/PE on Eliquis, PVD, Chronic LE ulcer, referred to ED by Nephrology for Hypotension and chills during HD, found to have RLE infected ulcer/cellulitis. 1. RLE Infected Ulcer/Cellulitis - much improved. Wound Cx - Dipth/[place] CT RLE - no evidence of OM Received IV Zosyn/Vanco - switched to Ceftriaxone/Vanco by ID pending final Cx results. Wound Care recommendations appreciated. Afebrile, Hemodynamically stable. ID to recommend oral Abx course prior to discharge. 2. ESRD on HD Nephrology following 3. DM 2 with Neuropathy - Novolog as per sliding scale. Hold Januvia. Continue Lyrica. 4. HTN - Hypotensive during HD, now improved. Metoprolol held temporarily. 5. CAD - Continue Statin. Will resume BB once BP rebounds. 6. HLD - continue Statin 7. Hx DVT/PE - Continue Eliquis. 8. GERD - continue Pantoprazole. DVT Px - Eliquis.
--- NOTE | 2019-04-19 14:13 | PN ---
Progress Note (short form) - Note Progress Note: feels well Vital Signs Period Temp Pulse Resp BP Sys/Leon Pulse Ox Last 24 Hr 97.6 F-98.7 F 69-78 17-18 95-116/43-67 99 cor-rrr lungs clear abd soft,nt right thigh erythema diminished, no pain, no induration CBC, BMP 04/19/19 06:05 04/19/19 06:05 Microbiology 04/16/19 13:40 Blood - Peripheral Venous Blood Culture - Preliminary NO GROWTH OBTAINED AFTER 72 HOURS, INCUBATION TO CONTINUE FOR 2 DAYS. 04/16/19 13:40 Blood - Peripheral Venous Blood Culture - Preliminary NO GROWTH OBTAINED AFTER 72 HOURS, INCUBATION TO CONTINUE FOR 2 DAYS. 04/17/19 17:19 Leg - Right Lower Gram Stain - Final 04/17/19 17:19 Leg - Right Lower Wound Culture - Preliminary Diphtheroid/Corynebacterium vanco trough 15.7 a/p cellulitis RLE ulcer esrd/hd prior history of MRSA and VRE can switch to po augmentin 500 mg daily to start tomorrow, for one week he should take the augmentind daily , on dialysis days he should take it after HD thanks d/w resident
--- NOTE | 2019-04-19 15:11 | DS ---
Physical Exam: SUBJECTIVE: Patient seen and examined at bedside. Asymptomatic, afebrile. OBJECTIVE: Vital Signs Period Temp Pulse Resp BP Sys/Leon Pulse Ox Last 24 Hr 97.6 F-98.7 F 69-78 17-18 95-116/43-67 99 PHYSICAL EXAM GENERAL: The patient is awake, alert, and fully oriented, in no acute distress. LUNGS: Breath sounds decreased given body habitus, clear to auscultation bilaterally. HEART: Regular rate and rhythm, S1, S2 without murmur, rub or gallop. ABDOMEN: Soft, nontender, nondistended EXTREMITIES: 2+ pulses, swollen chronic venous stasis. SKIN: RLE cellulitis vastly improved, nontender, not warm to touch. LABS Laboratory Results - last 24 hr 04/18/19 04/18/19 04/18/19 07:30 16:59 21:46 WBC RBC Hgb Hct MCV MCH MCHC RDW Plt Count MPV Absolute Neuts (auto) Neutrophils % Lymphocytes % Monocytes % Eosinophils % Basophils % Nucleated RBC % Sodium Potassium Chloride Carbon Dioxide Anion Gap BUN Creatinine Est GFR (CKD-EPI)AfAm Est GFR (CKD-EPI)NonAf POC Glucometer 267 210 Random Glucose Calcium Total Bilirubin AST ALT Alkaline Phosphatase Total Protein Albumin Random Vancomycin Hep Bs Antigen Negative Hep C Ab Diagnostic <0.1 04/19/19 04/19/19 04/19/19 06:05 06:05 06:30 WBC 5.9 RBC 3.87 L Hgb 12.5 Hct 37.2 MCV 96.2 H MCH 32.2 MCHC 33.5 RDW 15.7 Plt Count 192 MPV 9.7 Absolute Neuts (auto) 3.8 Neutrophils % 63.9 Lymphocytes % 20.5 D Monocytes % 8.3 Eosinophils % 6.1 H Basophils % 1.2 Nucleated RBC % 0 Sodium 137 Potassium 3.8 Chloride 98 Carbon Dioxide 30 Anion Gap 9 BUN 35.1 H Creatinine 7.2 H Est GFR (CKD-EPI)AfAm 8.80 Est GFR (CKD-EPI)NonAf 7.59 POC Glucometer 162 Random Glucose 167 H Calcium 8.2 L Total Bilirubin 0.8 AST 15 ALT 17 Alkaline Phosphatase 56 Total Protein 6.6 Albumin 2.7 L Random Vancomycin Hep Bs Antigen Hep C Ab Diagnostic 04/19/19 04/19/19 08:35 12:22 WBC RBC Hgb Hct MCV MCH MCHC RDW Plt Count MPV Absolute Neuts (auto) Neutrophils % Lymphocytes % Monocytes % Eosinophils % Basophils % Nucleated RBC % Sodium Potassium Chloride Carbon Dioxide Anion Gap BUN Creatinine Est GFR (CKD-EPI)AfAm Est GFR (CKD-EPI)NonAf POC Glucometer 268 Random Glucose Calcium Total Bilirubin AST ALT Alkaline Phosphatase Total Protein Albumin Random Vancomycin 15.7 L Hep Bs Antigen Hep C Ab Diagnostic HOSPITAL COURSE: Date of Admission:04/16/19 This is a morbidly obese patient who was admitted for RLE cellulitis. He was sent from dialysis (Dr. Hicks) for hypotension and chills associated with this erythematous, swollen rash on hist thigh. He was seen by Dr. Giron who treated him with vanco and ceftriaxone. His culture grew dyptheiria/ cornyebacterium. CT of right extremity and pelvis with no evidence of osteomyelitis, mild subQair. He was afebrile and sent home on augmentin 500 daily for 7 days. Instructed to stop his metoprolol given his hypotension. He was instructed to follow up with wound care. He was instructed to f/u with his PCP/Nehrologist regarding reinstating the metoprolol potentially. Date of Discharge: 04/19/19 Minutes to complete discharge: 35 Discharge Summary Problems reviewed: Yes Reason For Visit: CELLULITIS Condition: Good - Instructions Diet, Activity, Other Instructions: You were admitted for having a right leg wound infection (cellulitis). You were seen by an infectious disease specialist who treated you with antibiotics. You are now stable enough for discharge. You should continue your home meds as prescribed. Wound care instructions: -Wrap your legs with light ZANE bandage once your infection (cellulitis) resolves -Continue wearing your surgical offloading shoe on the right foot and diabetic shoe for your left foot. - Please follow up in the Wound care clinic after you leave. Medication we stopped: Please STOP your METOPROLOL because your blood pressure was low while you were here. Medication to continue after you leave here: Augmentin 1 tablet once a day by mouth for 7 days, starting tomorrow 04/20/19. Please take your medication after your dialysis on those days, so the medication does not get removed by the dialysis. Please follow up with your kidney doctor (nephrology) and your primary care doctor (Dr. Davis) in 1 week regarding restarting the metoprolol. If you do not have one we can provide one for you at [facility] with Dr. Marques Jonas. Return to the emergency room if you have any worsening of your current symptoms or: chest pain, shortness of breath, numbness, weakness, or any new concerns. Referrals: Hai Davis [Primary Care Provider] - Erick Frederick DO [Staff Physician] - 1 Week (wound care f/u) Disposition: HOME - Home Medications Comprehensive Discharge Medication List: Ambulatory Orders Apixaban [Eliquis] 1 tab PO BID 04/18/19 Atorvastatin Ca [Lipitor] 1 tab PO HS 04/18/19 Clopidogrel Bisulfate [Plavix] 1 tab PO DAILY 04/18/19 Pregabalin [Lyrica -] 1 cap PO TID PRN 04/18/19 Sitagliptin Phosphate [Januvia] 1 tab PO DAILY 04/18/19 Amoxicillin/Potassium Clav [Augmentin 500-125 Tablet] 1 each PO DAILY #7 tablet 04/19/19 This patient is new to me today: No Emergency Visit: Yes ED Registration Date: 04/16/19 Care time: The patient presented to the Emergency Department on the above date and was hospitalized for further evaluation of their emergent condition. Critical Care patient: No - Discharge Referral Referred to [facility] Med P.C.: No ATTENDING PHYSICIAN STATEMENT I saw and evaluated the patient. I reviewed the resident's note and discussed the case with the resident. I agree with the resident's findings and plan as documented. SUBJECTIVE: OBJECTIVE: ASSESSMENT AND PLAN:
--- NOTE | 2019-04-19 15:24 | PN ---
Progress Note, Physician History of Present Illness: Pt seen and examined at bedside. He is awake and alert. He denies shortness of breath. - Current Medication List Current Medications: Active Medications Apixaban (Eliquis -) 5 mg PO BID [facility] Last Admin: 04/19/19 10:58 Dose: 5 mg Atorvastatin Calcium (Lipitor -) 40 mg PO HS [facility] Last Admin: 04/18/19 21:48 Dose: 40 mg Ceftriaxone Sodium 1 gm/ (Dextrose) 50 mls @ 200 mls/hr IVPB DAILY [facility]; Protocol Last Admin: 04/19/19 12:24 Dose: 200 mls/hr Sodium Chloride (Normal Saline -) 250 mls @ 3,000 mls/hr IV PRN PRN PRN Reason: Hypotension during Dialysis Stop: 04/18/19 16:09 Vancomycin HCl 500 mg/ (Dextrose) 100 mls @ 100 mls/hr IVPB Q24H [facility] Last Admin: 04/19/19 13:45 Dose: 100 mls/hr Insulin Aspart (Novolog Vial Sliding Scale -) 1 vial SQ ACHS [facility]; Protocol Last Admin: 04/19/19 12:23 Dose: 6 units Pantoprazole Sodium (Protonix -) 40 mg PO BID [facility] Last Admin: 04/19/19 10:58 Dose: 40 mg Pregabalin (Lyrica -) 50 mg PO BID [facility] Last Admin: 04/19/19 10:58 Dose: 50 mg - Objective Vital Signs: Vital Signs Temperature 98.3 F 04/19/19 14:35 Pulse Rate 74 04/19/19 14:35 Respiratory Rate 20 04/19/19 14:35 Blood Pressure 108/65 04/19/19 14:35 O2 Sat by Pulse Oximetry (%) 99 04/18/19 21:00 Constitutional: Yes: Calm Eyes: Yes: Conjunctiva Clear HENT: Yes: Atraumatic Neck: Yes: Supple Cardiovascular: Yes: S1, S2 Respiratory: Yes: CTA Bilaterally Gastrointestinal: Yes: Soft Genitourinary: Yes: WNL Musculoskeletal: Yes: WNL Edema: Yes Edema: LLE: 1+, RLE: 1+ Neurological: Yes: Oriented Psychiatric: Yes: Oriented Labs: CBC, BMP 04/19/19 06:05 04/19/19 06:05 INR, PTT INR 1.25 (0.83-1.09) H 04/16/19 13:20 Problem List - Problems (1) Cellulitis Code(s): L03.90 - CELLULITIS, UNSPECIFIED (2) ESRD (end stage renal disease) Code(s): N18.6 - END STAGE RENAL DISEASE Assessment/Plan Current Medications Generic Name Dose Route Start Last Admin Trade Name Freq PRN Reason Stop Dose Admin Apixaban 5 mg 04/16/19 22:00 04/19/19 10:58 Eliquis - PO 5 mg BID [facility] Administration Atorvastatin Calcium 40 mg 04/16/19 22:00 04/18/19 21:48 Lipitor - PO 40 mg HS [facility] Administration Ceftriaxone Sodium 1 gm/ 50 mls @ 200 mls/hr 04/17/19 14:45 04/19/19 12:24 Dextrose IVPB 200 mls/hr DAILY [facility] Administration Protocol Sodium Chloride 250 mls @ 3,000 mls/hr 04/17/19 16:09 Normal Saline - IV 04/18/19 16:09 PRN PRN Hypotension during Dialysis Vancomycin HCl 500 mg/ 100 mls @ 100 mls/hr 04/18/19 10:00 04/19/19 13:45 Dextrose IVPB 100 mls/hr Q24H [facility] Administration Insulin Aspart 1 vial 04/17/19 13:15 04/19/19 12:23 Novolog Vial Sliding Scale - SQ 6 units ACHS [facility] Administration Protocol Pantoprazole Sodium 40 mg 04/16/19 22:00 04/19/19 10:58 Protonix - PO 40 mg BID [facility] Administration Pregabalin 50 mg 04/18/19 22:00 04/19/19 10:58 Lyrica - PO 50 mg BID [facility] Administration Microbiology 04/16/19 13:40 Blood - Peripheral Venous Blood Culture - Preliminary NO GROWTH OBTAINED AFTER 72 HOURS, INCUBATION TO CONTINUE FOR 2 DAYS. 04/16/19 13:40 Blood - Peripheral Venous Blood Culture - Preliminary NO GROWTH OBTAINED AFTER 72 HOURS, INCUBATION TO CONTINUE FOR 2 DAYS. Impression 1. ESRD 2. anemia 3. HTN 4. morbid obesity 5. CVA 6. hyperlipidemia 7. proteinuria - nephrotic 8. PVD 9. hypotension 10. PE 11. cellulitis Plan - next HD is tomorrow - he has HD scheduled as outpt - abx per primary team - decrease lyrica dose - renal diet
[2019-04-19 18:13] VITALS: BP 139/100; PULSE 102; TEMP 98
--- NOTE | 2019-04-26 11:56 | EKG ---
Test Reason : Blood Pressure : / mmHG Vent. Rate : 082 BPM Atrial Rate : 082 BPM P-R Int : 184 ms QRS Dur : 102 ms QT Int : 366 ms P-R-T Axes : 054 -52 019 degrees QTc Int : 427 ms SINUS RHYTHM WITH MARKED SINUS ARRHYTHMIA LEFT ANTERIOR FASCICULAR BLOCK INFERIOR INFARCT , AGE UNDETERMINED POSSIBLE ANTERIOR INFARCT , AGE UNDETERMINED ABNORMAL ECG WHEN COMPARED WITH ECG OF 07-MAR-2019 15:48, NONSPECIFIC T WAVE ABNORMALITY NOW EVIDENT IN INFERIOR LEADS Confirmed by DALIA VICENTE MD ([id number]) on 04/26/2019 11:56:18 AM Referred By: Confirmed By:DALIA VICENTE MD
== END 2019-04-19 20:30 | disposition home or self-care (01) | DRG 602 ==
LOC: JER 12:14 → JERBED 15:59 → J7W 21:17 → J4S 04-17 20:17
PROVIDERS: ADMIT Internal Medicine
PROC: 5A1D70Z Performance of Urinary Filtration, Intermittent, Less than 6 Hours Per Day (ICD-10-PCS; principal; 2019-04-18)
DX: L03.115 Cellulitis of right lower limb (principal); N18.6 End stage renal disease; I13.2 Hypertensive heart and chronic kidney disease with heart failure and with stage 5 chronic kidney disease, or end stage renal disease; Z68.41 Body mass index [BMI] 40.0-44.9, adult; L97.919 Non-pressure chronic ulcer of unspecified part of right lower leg with unspecified severity; I50.32 Chronic diastolic (congestive) heart failure; I69.354 Hemiplegia and hemiparesis following cerebral infarction affecting left non-dominant side; E11.40 Type 2 diabetes mellitus with diabetic neuropathy, unspecified; I25.10 Atherosclerotic heart disease of native coronary artery without angina pectoris; E78.5 Hyperlipidemia, unspecified; E66.01 Morbid (severe) obesity due to excess calories; I95.9 Hypotension, unspecified; K21.9 Gastro-esophageal reflux disease without esophagitis; D64.9 Anemia, unspecified; Z99.2 Dependence on renal dialysis
CPT/HCPCS: 36415; 71045-TC-FY; 72193-TC; 73701-TC-RT; 80048; 80053; 82550; 82565; 82962; 83605; 83735; 84100; 84484; 84520; 85025; 85027; 85610; 85730; 86803; 86850; 86900; 86901; 87040; 87070; 87077; 87205; 87340; 93005; 93010; 97116-GP; 97161-GP; 99285-25; G0480; Q9967

== ENCOUNTER 2020-04-09 12:21 | Inpatient (IN) | payer OTHER ==
[2020-04-09] MEDS ORDERED: ACETAMINOPHEN 1000 MG/100 ML VIAL (NON FORMULARY) IVPB ONE (14:41)
[2020-04-09 15:37] LABS: EOS % 5.1 % (0-4.5); HEMATOCRIT 42.2 % (35.4-49); HEMOGLOBIN 14.2 GM/dL (11.7-16.9); LYMPH % 9.3 % (8-40); MCH 33.1 pg (25.7-33.7); MCHC 33.7 g/dl (32.0-35.9); MEAN CELL VOLUME 98.4 fl (80-96); MEAN PLT VOLUME 8.5 fl (7.5-11.1); MONO % 7.9 % (3.8-10.2); NEUT % 76.7 % (42.8-82.8); PLATELET COUNT 193 K/MM3 (134-434); RBC 4.29 M/mm3 (4.00-5.60); RDW 17.1 % (11.9-15.9); WHITE BLOOD COUNT 7.6 K/mm3 (4.0-10.0)
[2020-04-09] MEDS ORDERED: ACETAMINOPHEN INJECTION 100 ML IVPB ONE (15:41)
[2020-04-09 15:53] LABS: INR 1.15 (0.83-1.09); PROTHROMBIN TIME (PATIENT) 13.8 SEC (9.7-13.0)
[2020-04-09 15:56] LABS: ACTIVATED PTT 32.3 SECONDS (25.2-36.5)
[2020-04-09 15:57] LABS: ALBUMIN 3.2 g/dl (3.4-5.0); BLOOD UREA NITROGEN 13.7 mg/dL (7-18); CALCIUM 8.5 mg/dL (8.5-10.1)
[2020-04-09 16:00] LABS: CREATININE 4.9 mg/dL (0.55-1.3)
[2020-04-09 16:02] LABS: BILIRUBIN,TOTAL 0.4 mg/dL (0.2-1)
[2020-04-09] MEDS ORDERED: ASPIRIN 81 MG CHEWABLE TABLETS PO ONE (16:29)
[2020-04-09] MEDS ORDERED: ACETAMINOPHEN 325 MG TABLET (FP) PO PRN ×2 (16:30→17:46)
[2020-04-09] MEDS ORDERED: ASPIRIN 81 MG CHEWABLE TABLETS ONE (20:33)
[2020-04-09] MEDS ORDERED: traMADol HCL 50 MG TABLET ONE (20:33)
[2020-04-09] MEDS ORDERED: APIXABAN 5 MG TABLET ONE (20:34)
[2020-04-09] MEDS ORDERED: GABAPENTIN 100 MG CAPSULE ONE (20:34)
[2020-04-09] MEDS ORDERED: ATORVASTATIN CA 40 MG TABLET (FP) ONE (20:34)
[2020-04-09] MEDS ORDERED: PANTOPRAZOLE 40 MG TABLET ONE (20:34)
[2020-04-09] MEDS: INSULIN SLIDING SCALE (NOVOLOG) 1 VIAL SQ SCH ×2 (21:01→21:02)
[2020-04-09] MEDS: APIXABAN 5 MG TABLET PO SCH (21:02)
[2020-04-09] MEDS: ATORVASTATIN CA 40 MG TABLET (FP) PO SCH (21:02)
[2020-04-09] MEDS: GABAPENTIN 100 MG CAPSULE PO SCH (21:02)
[2020-04-09] MEDS: PANTOPRAZOLE 40 MG TABLET PO SCH (21:02)
[2020-04-09] MEDS: traMADol HCL 50 MG TABLET PO PRN (21:02)
[2020-04-10] MEDS: GABAPENTIN 100 MG CAPSULE PO SCH ×2 (06:16→14:17)
[2020-04-10] MEDS: INSULIN SLIDING SCALE (NOVOLOG) 1 VIAL SQ SCH ×4 (06:17→23:11)
[2020-04-10 09:49] LABS: HEMATOCRIT 38.5 % (35.4-49); HEMOGLOBIN 12.8 GM/dL (11.7-16.9); MCH 32.9 pg (25.7-33.7); MCHC 33.2 g/dl (32.0-35.9); MEAN PLT VOLUME 8.6 fl (7.5-11.1); PLATELET COUNT 193 K/MM3 (134-434); RBC 3.89 M/mm3 (4.00-5.60); RDW 17.4 % (11.9-15.9); WHITE BLOOD COUNT 7.5 K/mm3 (4.0-10.0)
[2020-04-10 10:16] LABS: POTASSIUM 4.3 mmol/L (3.5-5.1)
[2020-04-10 10:23] LABS: ALBUMIN 2.9 g/dl (3.4-5.0); BLOOD UREA NITROGEN 23.4 mg/dL (7-18); MAGNESIUM 2.2 mg/dL (1.8-2.4)
[2020-04-10 10:26] LABS: CREATININE 6.2 mg/dL (0.55-1.3)
[2020-04-10 10:27] LABS: BILIRUBIN,TOTAL 0.8 mg/dL (0.2-1); TOT PROT 6.5 g/dl (6.4-8.2)
[2020-04-10] MEDS: APIXABAN 5 MG TABLET PO SCH ×2 (11:36→23:11)
[2020-04-10] MEDS: PANTOPRAZOLE 40 MG TABLET PO SCH ×2 (11:36→23:11)
[2020-04-10] MEDS: traMADol HCL 50 MG TABLET PO PRN ×2 (14:14→23:12)
[2020-04-10] MEDS ORDERED: SODIUM CHLORIDE 250 ML IV PRN (14:54)
[2020-04-10] MEDS ORDERED: PT OWN MED DRAWER 7, Y5N ONE (22:57)
[2020-04-10] MEDS: ATORVASTATIN CA 40 MG TABLET (FP) PO SCH (23:11)
[2020-04-10] MEDS: GABAPENTIN 400 MG CAPSULE PO SCH (23:32)
[2020-04-11] MEDS: GABAPENTIN 400 MG CAPSULE PO SCH ×3 (06:38→21:21)
[2020-04-11] MEDS: INSULIN SLIDING SCALE (NOVOLOG) 1 VIAL SQ SCH ×4 (06:39→21:19)
[2020-04-11] MEDS ORDERED: PT OWN MED DRAWER 7, Y5N ONE ×3 (09:20→21:12)
[2020-04-11] MEDS: APIXABAN 5 MG TABLET PO SCH ×2 (09:33→21:21)
[2020-04-11] MEDS: PANTOPRAZOLE 40 MG TABLET PO SCH ×2 (09:33→21:21)
[2020-04-11] MEDS: traMADol HCL 50 MG TABLET PO PRN (09:34)
[2020-04-11 12:42] LABS: HEMATOCRIT 35.6 % (35.4-49); HEMOGLOBIN 11.9 GM/dL (11.7-16.9); MCH 32.8 pg (25.7-33.7); MCHC 33.3 g/dl (32.0-35.9); MEAN CELL VOLUME 98.3 fl (80-96); MEAN PLT VOLUME 9.3 fl (7.5-11.1); PLATELET COUNT 177 K/MM3 (134-434); RBC 3.62 M/mm3 (4.00-5.60); RDW 16.9 % (11.9-15.9); WHITE BLOOD COUNT 7.8 K/mm3 (4.0-10.0)
[2020-04-11 12:58] LABS: POTASSIUM 4.2 mmol/L (3.5-5.1)
[2020-04-11 12:59] LABS: CALCIUM 8.4 mg/dL (8.5-10.1)
[2020-04-11 13:00] LABS: BLOOD UREA NITROGEN 39.7 mg/dL (7-18)
[2020-04-11 13:17] LABS: CREATININE 8.2 mg/dL (0.55-1.3)
[2020-04-11] MEDS: oxyCODONE HCL 5 MG TABLET PO PRN (18:12)
[2020-04-11] MEDS: ATORVASTATIN CA 40 MG TABLET (FP) PO SCH (21:21)
[2020-04-12] MEDS: oxyCODONE HCL 5 MG TABLET PO PRN ×3 (00:57→22:50)
[2020-04-12] MEDS: GABAPENTIN 400 MG CAPSULE PO SCH ×3 (05:37→22:48)
[2020-04-12] MEDS ORDERED: PT OWN MED DRAWER 7, Y5N ONE ×2 (05:37→22:42)
[2020-04-12] MEDS: INSULIN SLIDING SCALE (NOVOLOG) 1 VIAL SQ SCH ×4 (06:04→22:48)
[2020-04-12 07:18] LABS: BASO % 1.6 % (0-2.0); EOS % 6.4 % (0-4.5); HEMATOCRIT 37.7 % (35.4-49); HEMOGLOBIN 12.5 GM/dL (11.7-16.9); LYMPH % 14.8 % (8-40); MCH 32.6 pg (25.7-33.7); MCHC 33.2 g/dl (32.0-35.9); MEAN CELL VOLUME 98.1 fl (80-96); MEAN PLT VOLUME 9.1 fl (7.5-11.1); MONO % 8.4 % (3.8-10.2); NEUT % 68.8 % (42.8-82.8); PLATELET COUNT 175 K/MM3 (134-434); RBC 3.84 M/mm3 (4.00-5.60); RDW 16.6 % (11.9-15.9); WHITE BLOOD COUNT 7.1 K/mm3 (4.0-10.0)
[2020-04-12 07:25] LABS: POTASSIUM 3.7 mmol/L (3.5-5.1)
[2020-04-12 07:26] LABS: CALCIUM 8.3 mg/dL (8.5-10.1)
[2020-04-12 07:27] LABS: ALBUMIN 2.8 g/dl (3.4-5.0); BLOOD UREA NITROGEN 29.5 mg/dL (7-18); MAGNESIUM 2.1 mg/dL (1.8-2.4)
[2020-04-12 07:30] LABS: CREATININE 6.1 mg/dL (0.55-1.3)
[2020-04-12 07:31] LABS: BILIRUBIN,TOTAL 0.6 mg/dL (0.2-1); TOT PROT 6.2 g/dl (6.4-8.2)
[2020-04-12] MEDS: PANTOPRAZOLE 40 MG TABLET PO SCH ×2 (11:22→22:47)
[2020-04-12] MEDS: APIXABAN 5 MG TABLET PO SCH ×2 (11:22→22:47)
[2020-04-12 13:24] VITALS: BMI 45.9
[2020-04-12] MEDS: LORATADINE 10 MG TABLET PO SCH (14:22)
[2020-04-12] MEDS: POLYETHYLENE GLYCOL 3350 119 GM BTL PO SCH (22:46)
[2020-04-12] MEDS: ATORVASTATIN CA 40 MG TABLET (FP) PO SCH (22:47)
[2020-04-12] MEDS: DOCUSATE SODIUM 100 MG CAPSULE (FP) PO SCH (22:48)
[2020-04-13] MEDS ORDERED: PT OWN MED DRAWER 7, Y5N ONE ×2 (06:46→14:26)
[2020-04-13] MEDS: INSULIN SLIDING SCALE (NOVOLOG) 1 VIAL SQ SCH ×4 (06:50→22:04)
[2020-04-13] MEDS: GABAPENTIN 400 MG CAPSULE PO SCH ×2 (06:51→14:29)
[2020-04-13 08:05] LABS: BASO % 1.2 % (0-2.0); EOS % 7.1 % (0-4.5); HEMOGLOBIN 12.8 GM/dL (11.7-16.9); LYMPH % 15.2 % (8-40); MCH 32.9 pg (25.7-33.7); MCHC 33.6 g/dl (32.0-35.9); MEAN CELL VOLUME 97.8 fl (80-96); MEAN PLT VOLUME 9.2 fl (7.5-11.1); MONO % 8.3 % (3.8-10.2); NEUT % 68.2 % (42.8-82.8); PLATELET COUNT 189 K/MM3 (134-434); RBC 3.88 M/mm3 (4.00-5.60); RDW 16.4 % (11.9-15.9); WHITE BLOOD COUNT 7.3 K/mm3 (4.0-10.0)
[2020-04-13 08:45] LABS: ALBUMIN 2.9 g/dl (3.4-5.0); BILIRUBIN,TOTAL 1.2 mg/dL (0.2-1); BLOOD UREA NITROGEN 47.9 mg/dL (7-18); CALCIUM 8.3 mg/dL (8.5-10.1); MAGNESIUM 2.3 mg/dL (1.8-2.4); POTASSIUM 4.1 mmol/L (3.5-5.1); TOT PROT 6.4 g/dl (6.4-8.2)
[2020-04-13 08:53] LABS: CREATININE 8.2 mg/dL (0.55-1.3)
[2020-04-13] MEDS: PANTOPRAZOLE 40 MG TABLET PO SCH ×2 (09:03→22:00)
[2020-04-13] MEDS: LORATADINE 10 MG TABLET PO SCH (09:03)
[2020-04-13] MEDS: POLYETHYLENE GLYCOL 3350 119 GM BTL PO SCH (09:03)
[2020-04-13] MEDS: DOCUSATE SODIUM 100 MG CAPSULE (FP) PO SCH ×2 (09:03→22:00)
[2020-04-13] MEDS: APIXABAN 5 MG TABLET PO SCH ×2 (09:04→21:59)
[2020-04-13] MEDS: VITAMIN B COMP W-C 1 EA TABLET (NEPHRO-VITE) PO SCH (09:04)
[2020-04-13] MEDS: oxyCODONE HCL 5 MG TABLET PO PRN ×2 (10:25→22:07)
[2020-04-13] MEDS ORDERED: SODIUM CHLORIDE 250 ML IV PRN (15:04)
[2020-04-13] MEDS: ATORVASTATIN CA 40 MG TABLET (FP) PO SCH (21:59)
[2020-04-13] MEDS: GABAPENTIN 300 MG CAPSULE PO SCH (22:00)
[2020-04-13] MEDS: INSULIN (LEVEMIR) 100 UNITS/ML UNITS SQ SCH (22:01)
[2020-04-14] MEDS: INSULIN SLIDING SCALE (NOVOLOG) 1 VIAL SQ SCH ×4 (06:08→21:52)
[2020-04-14] MEDS: GABAPENTIN 300 MG CAPSULE PO SCH ×2 (06:08→15:07)
[2020-04-14] MEDS ORDERED: INSULIN (LEVEMIR) 100 UNITS/ML UNITS SQ ONE (07:52)
[2020-04-14] MEDS ORDERED: LACTULOSE 20 GM/30 ML UDC (FOR ORAL USE ONLY) PO ONE (10:45)
[2020-04-14] MEDS: PANTOPRAZOLE 40 MG TABLET PO SCH ×2 (15:07→21:43)
[2020-04-14] MEDS: POLYETHYLENE GLYCOL 3350 119 GM BTL PO SCH ×2 (15:07→21:43)
[2020-04-14] MEDS: APIXABAN 5 MG TABLET PO SCH ×2 (15:07→21:44)
[2020-04-14] MEDS: LORATADINE 10 MG TABLET PO SCH (15:07)
[2020-04-14] MEDS: DOCUSATE SODIUM 100 MG CAPSULE (FP) PO SCH ×2 (15:07→21:42)
[2020-04-14] MEDS: VITAMIN B COMP W-C 1 EA TABLET (NEPHRO-VITE) PO SCH (15:08)
[2020-04-14 16:36] LABS: BASO % 0.7 % (0-2.0); EOS % 3.7 % (0-4.5); HEMOGLOBIN 12.1 GM/dL (11.7-16.9); LYMPH % 5.8 % (8-40); MCH 32.5 pg (25.7-33.7); MCHC 33.5 g/dl (32.0-35.9); MEAN CELL VOLUME 96.8 fl (80-96); MEAN PLT VOLUME 9.6 fl (7.5-11.1); MONO % 5.4 % (3.8-10.2); NEUT % 84.4 % (42.8-82.8); PLATELET COUNT 184 K/MM3 (134-434); RBC 3.71 M/mm3 (4.00-5.60); RDW 16.4 % (11.9-15.9); WHITE BLOOD COUNT 9.6 K/mm3 (4.0-10.0)
[2020-04-14 16:52] LABS: POTASSIUM 4.5 mmol/L (3.5-5.1)
[2020-04-14 16:55] LABS: ALBUMIN 2.9 g/dl (3.4-5.0); BLOOD UREA NITROGEN 63.2 mg/dL (7-18); CALCIUM 8.7 mg/dL (8.5-10.1); MAGNESIUM 2.4 mg/dL (1.8-2.4)
[2020-04-14 17:00] LABS: TOT PROT 6.2 g/dl (6.4-8.2)
[2020-04-14 17:06] LABS: BILIRUBIN,TOTAL 0.5 mg/dL (0.2-1)
[2020-04-14 17:17] LABS: CREATININE 9.3 mg/dL (0.55-1.3)
[2020-04-14] MEDS ORDERED: ACETAMINOPHEN 325 MG TABLET (FP) PO PRN (17:37)
[2020-04-14] MEDS: ATORVASTATIN CA 40 MG TABLET (FP) PO SCH (21:43)
[2020-04-14] MEDS: GABAPENTIN 100 MG CAPSULE PO SCH (21:43)
[2020-04-14] MEDS: INSULIN (LEVEMIR) 100 UNITS/ML UNITS SQ SCH (21:51)
[2020-04-15] MEDS: oxyCODONE HCL 5 MG TABLET PO PRN ×2 (04:22→21:58)
[2020-04-15] MEDS: GABAPENTIN 100 MG CAPSULE PO SCH ×3 (06:11→21:51)
[2020-04-15] MEDS: INSULIN SLIDING SCALE (NOVOLOG) 1 VIAL SQ SCH ×4 (06:12→21:59)
[2020-04-15 09:28] LABS: BASO % 0.8 % (0-2.0); EOS % 3.5 % (0-4.5); HEMATOCRIT 37.1 % (35.4-49); HEMOGLOBIN 12.5 GM/dL (11.7-16.9); LYMPH % 10.2 % (8-40); MCH 32.8 pg (25.7-33.7); MCHC 33.8 g/dl (32.0-35.9); MEAN CELL VOLUME 96.9 fl (80-96); MEAN PLT VOLUME 9.6 fl (7.5-11.1); MONO % 6.8 % (3.8-10.2); NEUT % 78.7 % (42.8-82.8); PLATELET COUNT 201 K/MM3 (134-434); RBC 3.83 M/mm3 (4.00-5.60); RDW 16.4 % (11.9-15.9); WHITE BLOOD COUNT 8.7 K/mm3 (4.0-10.0)
[2020-04-15 09:52] LABS: POTASSIUM 4.2 mmol/L (3.5-5.1)
[2020-04-15 09:57] LABS: BLOOD UREA NITROGEN 47.2 mg/dL (7-18); CALCIUM 8.8 mg/dL (8.5-10.1); MAGNESIUM 2.4 mg/dL (1.8-2.4)
[2020-04-15 10:01] LABS: BILIRUBIN,TOTAL 0.7 mg/dL (0.2-1); TOT PROT 6.7 g/dl (6.4-8.2)
[2020-04-15 10:30] LABS: CREATININE 7.7 mg/dL (0.55-1.3)
[2020-04-15] MEDS: PANTOPRAZOLE 40 MG TABLET PO SCH ×2 (11:08→21:51)
[2020-04-15] MEDS: VITAMIN B COMP W-C 1 EA TABLET (NEPHRO-VITE) PO SCH (11:09)
[2020-04-15] MEDS: LORATADINE 10 MG TABLET PO SCH (11:09)
[2020-04-15] MEDS: APIXABAN 5 MG TABLET PO SCH ×2 (11:09→21:52)
[2020-04-15] MEDS: POLYETHYLENE GLYCOL 3350 119 GM BTL PO SCH ×2 (11:09→21:52)
[2020-04-15] MEDS ORDERED: SODIUM CHLORIDE 250 ML IV PRN (12:05)
[2020-04-15] MEDS: DOCUSATE SODIUM 100 MG CAPSULE (FP) PO SCH (21:51)
[2020-04-15] MEDS: ATORVASTATIN CA 40 MG TABLET (FP) PO SCH (21:52)
[2020-04-15] MEDS: INSULIN (LEVEMIR) 100 UNITS/ML UNITS SQ SCH (21:59)
[2020-04-16] MEDS: GABAPENTIN 100 MG CAPSULE PO SCH ×3 (06:07→21:26)
[2020-04-16] MEDS: INSULIN SLIDING SCALE (NOVOLOG) 1 VIAL SQ SCH ×4 (06:12→21:25)
[2020-04-16 09:15] LABS: BASO % 1.1 % (0-2.0); EOS % 6.7 % (0-4.5); HEMATOCRIT 35.3 % (35.4-49); HEMOGLOBIN 11.9 GM/dL (11.7-16.9); LYMPH % 11.3 % (8-40); MCH 32.8 pg (25.7-33.7); MCHC 33.7 g/dl (32.0-35.9); MEAN CELL VOLUME 97.3 fl (80-96); MEAN PLT VOLUME 9.6 fl (7.5-11.1); MONO % 8.1 % (3.8-10.2); NEUT % 72.8 % (42.8-82.8); PLATELET COUNT 203 K/MM3 (134-434); RBC 3.63 M/mm3 (4.00-5.60); RDW 16.4 % (11.9-15.9)
[2020-04-16 09:27] LABS: POTASSIUM 4.5 mmol/L (3.5-5.1)
[2020-04-16 09:34] LABS: ALBUMIN 2.9 g/dl (3.4-5.0); BLOOD UREA NITROGEN 62.7 mg/dL (7-18); MAGNESIUM 2.5 mg/dL (1.8-2.4)
[2020-04-16 09:39] LABS: BILIRUBIN,TOTAL 0.9 mg/dL (0.2-1); TOT PROT 6.5 g/dl (6.4-8.2)
[2020-04-16 09:51] LABS: CREATININE 9.6 mg/dL (0.55-1.3)
[2020-04-16] MEDS ORDERED: INSULIN (NOVOLOG) ASPART 100 UNITS/ML 10ML VIAL ONE ×2 (10:10→21:07)
[2020-04-16] MEDS: LORATADINE 10 MG TABLET PO SCH (10:18)
[2020-04-16] MEDS: POLYETHYLENE GLYCOL 3350 119 GM BTL PO SCH ×2 (10:18→21:16)
[2020-04-16] MEDS: VITAMIN B COMP W-C 1 EA TABLET (NEPHRO-VITE) PO SCH (10:18)
[2020-04-16] MEDS: APIXABAN 5 MG TABLET PO SCH ×2 (10:18→21:28)
[2020-04-16] MEDS: PANTOPRAZOLE 40 MG TABLET PO SCH ×2 (10:18→21:25)
[2020-04-16] MEDS ORDERED: HEPARIN NA (PORCINE) 5,000 UNITS/ML 1ML VIAL IVPUSH ONE (12:05)
[2020-04-16] MEDS: DOCUSATE SODIUM 100 MG CAPSULE (FP) PO SCH (21:27)
[2020-04-16] MEDS: INSULIN (LEVEMIR) 100 UNITS/ML UNITS SQ SCH (21:28)
[2020-04-16] MEDS: ATORVASTATIN CA 40 MG TABLET (FP) PO SCH (21:28)
[2020-04-17] MEDS: INSULIN SLIDING SCALE (NOVOLOG) 1 VIAL SQ SCH ×5 (06:38→23:03)
[2020-04-17 08:53] LABS: BASO % 1.3 % (0-2.0); HEMATOCRIT 36.3 % (35.4-49); HEMOGLOBIN 12.2 GM/dL (11.7-16.9); LYMPH % 12.5 % (8-40); MCH 32.9 pg (25.7-33.7); MCHC 33.6 g/dl (32.0-35.9); MEAN CELL VOLUME 98.1 fl (80-96); MEAN PLT VOLUME 9.9 fl (7.5-11.1); MONO % 8.9 % (3.8-10.2); NEUT % 71.3 % (42.8-82.8); PLATELET COUNT 207 K/MM3 (134-434); RDW 16.2 % (11.9-15.9); WHITE BLOOD COUNT 7.6 K/mm3 (4.0-10.0)
[2020-04-17 09:20] LABS: POTASSIUM 4.6 mmol/L (3.5-5.1)
[2020-04-17 09:26] LABS: CALCIUM 8.9 mg/dL (8.5-10.1)
[2020-04-17 09:27] LABS: ALBUMIN 2.8 g/dl (3.4-5.0); BLOOD UREA NITROGEN 42.4 mg/dL (7-18); MAGNESIUM 2.3 mg/dL (1.8-2.4)
[2020-04-17 09:31] LABS: BILIRUBIN,TOTAL 0.7 mg/dL (0.2-1); TOT PROT 6.3 g/dl (6.4-8.2)
[2020-04-17 09:57] LABS: CREATININE 7.5 mg/dL (0.55-1.3)
[2020-04-17] MEDS: APIXABAN 5 MG TABLET PO SCH ×2 (11:08→22:53)
[2020-04-17] MEDS: POLYETHYLENE GLYCOL 3350 119 GM BTL PO SCH ×2 (11:08→22:52)
[2020-04-17] MEDS: PANTOPRAZOLE 40 MG TABLET PO SCH ×2 (11:09→22:53)
[2020-04-17] MEDS: VITAMIN B COMP W-C 1 EA TABLET (NEPHRO-VITE) PO SCH (11:09)
[2020-04-17] MEDS: LORATADINE 10 MG TABLET PO SCH (11:09)
[2020-04-17] MEDS: GABAPENTIN 100 MG CAPSULE PO SCH ×2 (11:09→22:53)
[2020-04-17] MEDS ORDERED: INSULIN (NOVOLOG) ASPART 100 UNITS/ML 10ML VIAL ONE (11:17)
[2020-04-17] MEDS ORDERED: LACTULOSE 20 GM/30 ML UDC (FOR ORAL USE ONLY) PO ONE (12:38)
[2020-04-17] MEDS ORDERED: SODIUM PHOSPHATE/NA BIPHOS 133 ML ENEMA RC PRN (15:21)
[2020-04-17] MEDS ORDERED: MINERAL OIL ENEMA 133 ML ENEMA PR ONE (17:48)
[2020-04-17] MEDS ORDERED: SODIUM CHLORIDE 250 ML IV PRN (17:49)
[2020-04-17] MEDS: DOCUSATE SODIUM 100 MG CAPSULE (FP) PO SCH (22:51)
[2020-04-17] MEDS: ATORVASTATIN CA 40 MG TABLET (FP) PO SCH (22:53)
[2020-04-17] MEDS: INSULIN (LEVEMIR) 100 UNITS/ML UNITS SQ SCH (22:58)
[2020-04-18] MEDS: INSULIN SLIDING SCALE (NOVOLOG) 1 VIAL SQ SCH ×4 (07:18→21:51)
[2020-04-18 08:55] LABS: BASO % 1.3 % (0-2.0); EOS % 6.6 % (0-4.5); HEMATOCRIT 34.3 % (35.4-49); HEMOGLOBIN 11.4 GM/dL (11.7-16.9); LYMPH % 10.1 % (8-40); MCH 32.7 pg (25.7-33.7); MCHC 33.4 g/dl (32.0-35.9); MEAN CELL VOLUME 98.1 fl (80-96); MEAN PLT VOLUME 9.9 fl (7.5-11.1); MONO % 8.1 % (3.8-10.2); NEUT % 73.9 % (42.8-82.8); PLATELET COUNT 228 K/MM3 (134-434); RBC 3.49 M/mm3 (4.00-5.60); RDW 16.1 % (11.9-15.9); WHITE BLOOD COUNT 8.3 K/mm3 (4.0-10.0)
[2020-04-18 09:13] LABS: POTASSIUM 4.6 mmol/L (3.5-5.1)
[2020-04-18 09:16] LABS: ALBUMIN 2.9 g/dl (3.4-5.0); BLOOD UREA NITROGEN 54.4 mg/dL (7-18); MAGNESIUM 2.5 mg/dL (1.8-2.4)
[2020-04-18 09:21] LABS: BILIRUBIN,TOTAL 0.5 mg/dL (0.2-1); TOT PROT 6.1 g/dl (6.4-8.2)
[2020-04-18 10:18] LABS: CREATININE 8.9 mg/dL (0.55-1.3)
[2020-04-18] MEDS: VITAMIN B COMP W-C 1 EA TABLET (NEPHRO-VITE) PO SCH (13:32)
[2020-04-18] MEDS: GABAPENTIN 100 MG CAPSULE PO SCH ×2 (13:32→21:42)
[2020-04-18] MEDS: PANTOPRAZOLE 40 MG TABLET PO SCH ×2 (13:33→21:42)
[2020-04-18] MEDS: APIXABAN 5 MG TABLET PO SCH ×2 (13:33→21:42)
[2020-04-18] MEDS: LORATADINE 10 MG TABLET PO SCH ×2 (13:33→21:42)
[2020-04-18] MEDS: POLYETHYLENE GLYCOL 3350 119 GM BTL PO SCH ×2 (16:54→21:44)
[2020-04-18] MEDS: ATORVASTATIN CA 40 MG TABLET (FP) PO SCH (21:42)
[2020-04-18] MEDS: DOCUSATE SODIUM 100 MG CAPSULE (FP) PO SCH (21:44)
[2020-04-18] MEDS: INSULIN (LEVEMIR) 100 UNITS/ML UNITS SQ SCH (21:51)
[2020-04-19] MEDS: LORATADINE 10 MG TABLET PO SCH (06:03)
[2020-04-19] MEDS: INSULIN SLIDING SCALE (NOVOLOG) 1 VIAL SQ SCH ×4 (06:03→23:19)
[2020-04-19] MEDS: GABAPENTIN 100 MG CAPSULE PO SCH (06:03)
[2020-04-19] MEDS: PANTOPRAZOLE 40 MG TABLET PO SCH ×2 (09:27→23:17)
[2020-04-19] MEDS: POLYETHYLENE GLYCOL 3350 119 GM BTL PO SCH ×3 (09:28→23:05)
[2020-04-19] MEDS: APIXABAN 5 MG TABLET PO SCH ×2 (09:28→23:17)
[2020-04-19] MEDS: VITAMIN B COMP W-C 1 EA TABLET (NEPHRO-VITE) PO SCH (09:28)
[2020-04-19 09:32] LABS: BASO % 1.3 % (0-2.0); EOS % 7.5 % (0-4.5); HEMATOCRIT 39.8 % (35.4-49); HEMOGLOBIN 13.2 GM/dL (11.7-16.9); LYMPH % 11.4 % (8-40); MCH 32.7 pg (25.7-33.7); MCHC 33.1 g/dl (32.0-35.9); MEAN CELL VOLUME 98.7 fl (80-96); MONO % 7.4 % (3.8-10.2); NEUT % 72.4 % (42.8-82.8); PLATELET COUNT 221 K/MM3 (134-434); RBC 4.03 M/mm3 (4.00-5.60); RDW 15.9 % (11.9-15.9); WHITE BLOOD COUNT 8.8 K/mm3 (4.0-10.0)
[2020-04-19] MEDS ORDERED: HYDROCORTISONE 1% TOPICAL CREAM 30 GM TUBE TP PRN (09:45)
[2020-04-19 10:32] LABS: ALBUMIN 3.2 g/dl (3.4-5.0); CALCIUM 9.2 mg/dL (8.5-10.1); MAGNESIUM 2.5 mg/dL (1.8-2.4)
[2020-04-19 10:37] LABS: TOT PROT 7.1 g/dl (6.4-8.2)
[2020-04-19 10:41] LABS: BLOOD UREA NITROGEN 43.1 mg/dL (7-18)
[2020-04-19 10:42] LABS: BILIRUBIN,TOTAL 0.9 mg/dL (0.2-1)
[2020-04-19 11:15] LABS: CREATININE 7.4 mg/dL (0.55-1.3)
[2020-04-19] MEDS: hydrOXYzine HCL 10 MG/5 ML LIQUID BULK BOTTLE PO PRN ×2 (12:10→23:18)
[2020-04-19] MEDS ORDERED: PT OWN MED DRAWER 7, Y5N ONE ×2 (12:13→23:07)
[2020-04-19] MEDS: GABAPENTIN 300 MG CAPSULE PO SCH ×2 (13:36→23:17)
[2020-04-19] MEDS: DOCUSATE SODIUM 100 MG CAPSULE (FP) PO SCH (23:04)
[2020-04-19] MEDS: ATORVASTATIN CA 40 MG TABLET (FP) PO SCH (23:17)
[2020-04-19] MEDS: INSULIN (LEVEMIR) 100 UNITS/ML UNITS SQ SCH (23:18)
[2020-04-20] MEDS: INSULIN SLIDING SCALE (NOVOLOG) 1 VIAL SQ SCH ×2 (06:25→11:54)
[2020-04-20] MEDS: GABAPENTIN 300 MG CAPSULE PO SCH ×2 (06:26→14:22)
[2020-04-20] MEDS: hydrOXYzine HCL 10 MG/5 ML LIQUID BULK BOTTLE PO PRN (06:29)
[2020-04-20] MEDS ORDERED: LORATADINE 10 MG TABLET PO SCH (10:15)
[2020-04-20 10:32] LABS: BASO % 0.5 % (0-2.0); EOS % 8.1 % (0-4.5); HEMATOCRIT 33.8 % (35.4-49); HEMOGLOBIN 11.3 GM/dL (11.7-16.9); LYMPH % 9.8 % (8-40); MCH 32.8 pg (25.7-33.7); MCHC 33.3 g/dl (32.0-35.9); MEAN CELL VOLUME 98.3 fl (80-96); MEAN PLT VOLUME 9.7 fl (7.5-11.1); MONO % 7.1 % (3.8-10.2); NEUT % 74.5 % (42.8-82.8); PLATELET COUNT 206 K/MM3 (134-434); RBC 3.44 M/mm3 (4.00-5.60); RDW 15.7 % (11.9-15.9); WHITE BLOOD COUNT 8.1 K/mm3 (4.0-10.0)
[2020-04-20] MEDS: VITAMIN B COMP W-C 1 EA TABLET (NEPHRO-VITE) PO SCH (10:38)
[2020-04-20] MEDS: APIXABAN 5 MG TABLET PO SCH (10:38)
[2020-04-20] MEDS: PANTOPRAZOLE 40 MG TABLET PO SCH (10:38)
[2020-04-20] MEDS: POLYETHYLENE GLYCOL 3350 119 GM BTL PO SCH ×2 (10:38→10:41)
[2020-04-20 10:52] LABS: POTASSIUM 4.9 mmol/L (3.5-5.1)
[2020-04-20 10:54] LABS: CALCIUM 8.7 mg/dL (8.5-10.1)
[2020-04-20 10:55] LABS: ALBUMIN 2.8 g/dl (3.4-5.0); BLOOD UREA NITROGEN 60.7 mg/dL (7-18); MAGNESIUM 2.5 mg/dL (1.8-2.4)
[2020-04-20 10:59] LABS: BILIRUBIN,TOTAL 0.5 mg/dL (0.2-1); TOT PROT 6.3 g/dl (6.4-8.2)
[2020-04-20 11:28] LABS: CREATININE 9.1 mg/dL (0.55-1.3)
[2020-04-20 15:18] VITALS: BP 137/80; PULSE 91; TEMP 98
== END 2020-04-20 16:53 | DRG 562 ==
LOC: JER 12:21 → JERBED 16:14 → OBSVTOIN 16:30 → JICU-6 04-10 04:56 → J4S 04-10 18:36 → J6S 04-14 15:12
PROVIDERS: ATTEND Nurse Practitioner Acute Care
PROC: 5A1D70Z Performance of Urinary Filtration, Intermittent, Less than 6 Hours Per Day (ICD-10-PCS; principal; 2020-04-11)
PROC: 5A1D70Z Performance of Urinary Filtration, Intermittent, Less than 6 Hours Per Day (ICD-10-PCS; 2020-04-14)
PROC: 5A1D70Z Performance of Urinary Filtration, Intermittent, Less than 6 Hours Per Day (ICD-10-PCS; 2020-04-16)
PROC: 5A1D70Z Performance of Urinary Filtration, Intermittent, Less than 6 Hours Per Day (ICD-10-PCS; 2020-04-18)
DX: S82.831A Other fracture of upper and lower end of right fibula, initial encounter for closed fracture (principal); N18.6 End stage renal disease; Z68.42 Body mass index [BMI] 45.0-49.9, adult; I48.19 Other persistent atrial fibrillation; I69.354 Hemiplegia and hemiparesis following cerebral infarction affecting left non-dominant side; L97.218 Non-pressure chronic ulcer of right calf with other specified severity; I13.2 Hypertensive heart and chronic kidney disease with heart failure and with stage 5 chronic kidney disease, or end stage renal disease; I25.10 Atherosclerotic heart disease of native coronary artery without angina pectoris; E78.5 Hyperlipidemia, unspecified; E11.22 Type 2 diabetes mellitus with diabetic chronic kidney disease; I50.9 Heart failure, unspecified; J44.9 Chronic obstructive pulmonary disease, unspecified; R79.89 Other specified abnormal findings of blood chemistry; D63.1 Anemia in chronic kidney disease; E66.01 Morbid (severe) obesity due to excess calories; K21.9 Gastro-esophageal reflux disease without esophagitis; E11.622 Type 2 diabetes mellitus with other skin ulcer; L30.8 Other specified dermatitis; R07.89 Other chest pain; K59.09 Other constipation; E11.51 Type 2 diabetes mellitus with diabetic peripheral angiopathy without gangrene; E11.40 Type 2 diabetes mellitus with diabetic neuropathy, unspecified; Z86.718 Personal history of other venous thrombosis and embolism; Z86.711 Personal history of pulmonary embolism; W01.0XXA Fall on same level from slipping, tripping and stumbling without subsequent striking against object, initial encounter; Z98.84 Bariatric surgery status; Y92.89 Other specified places as the place of occurrence of the external cause; Z89.432 Acquired absence of left foot
CPT/HCPCS: 36415; 71045-TC-FY; 73090-TC-LT-FY; 73562-TC-RT-FY; 73590-TC-RT-FY; 73610-TC-RT-FY; 73630-TC-RT-FY; 80048; 80053; 80074; 82550; 82962; 83690; 83735; 84100; 84484; 85025; 85027; 85610; 85730; 86803; 87081; 87340; 93005; 93010; 97116-GP; 99285-25; C9803; G0378; J0131; U0003

== ENCOUNTER 2020-06-26 15:17 | Inpatient (IN) | payer OTHER ==
[2020-06-26] MEDS ORDERED: CLINDAMYCIN 600MG PREMIX IVPB 600 MG/50 ML BAG IVPB ONE ×2 (16:26→16:55)
[2020-06-26 17:53] LABS: EOS % 5.7 % (0-4.5); HEMATOCRIT 24.9 % (35.4-49); HEMOGLOBIN 8.1 GM/dL (11.7-16.9); LYMPH % 11.3 % (8-40); MCH 31.2 pg (25.7-33.7); MCHC 32.5 g/dl (32.0-35.9); MEAN CELL VOLUME 95.8 fl (80-96); MEAN PLT VOLUME 11.5 fl (7.5-11.1); MONO % 8.8 % (3.8-10.2); NEUT % 73.2 % (42.8-82.8); PLATELET COUNT 145 K/MM3 (134-434); RBC 2.61 M/mm3 (4.00-5.60); RDW 15.1 % (11.9-15.9); WHITE BLOOD COUNT 8.7 K/mm3 (4.0-10.0)
[2020-06-26 18:12] LABS: CHLORIDE 96 mmol/L (98-107); SODIUM 136 mmol/L (136-145)
[2020-06-26 18:14] LABS: CALCIUM 9.6 mg/dL (8.5-10.1)
[2020-06-26 18:15] LABS: ALBUMIN 3.7 g/dl (3.4-5.0); ANION GAP 8 MMOL/L (8-16); CO2 32 mmol/L (21-32); GLUCOSE,RANDOM 102 mg/dL (74-106)
[2020-06-26 18:18] LABS: SGOT/AST 37 U/L (15-37); SGPT/ALT 35 U/L (13-61)
[2020-06-26 18:19] LABS: BILIRUBIN,TOTAL 0.6 mg/dL (0.2-1); TOT PROT 7.8 g/dl (6.4-8.2)
[2020-06-26 18:21] LABS: ALK PHOS 88 U/L (45-117)
[2020-06-26 18:28] LABS: CREATININE 9.3 mg/dL (0.55-1.3)
[2020-06-26] MEDS ORDERED: AMPICILLIN NA/SULBACTAM NA 3 GM in SODIUM CHLORIDE 100 ML IVPB ONE (18:58)
[2020-06-26] MEDS ORDERED: VANCOMYCIN 1,000 MG in DEXTROSE 5%-WATER - 250 ML IVPB ONE (19:02)
[2020-06-26] MEDS ORDERED: VANCOMYCIN 1 GRAM (PRE-DOCKED) 1,000 MG/250 ML BAG IVPB ONE ×2 (19:24→20:46)
[2020-06-26] MEDS ORDERED: ACETAMINOPHEN 325 MG TABLET (FP) PO PRN (19:45)
[2020-06-26] MEDS ORDERED: VANCOMYCIN 2,000 MG in DEXTROSE 5%-WATER - 500 ML IVPB ONE (20:00)
[2020-06-26] MEDS ORDERED: PIPERACILLIN/TAZOB 4.5 GM 4.5 GM/100 ML BAG IVPB ONE (20:46)
[2020-06-26] MEDS ORDERED: APIXABAN 5 MG TABLET ONE (20:47)
[2020-06-26] MEDS: INSULIN SLIDING SCALE (NOVOLOG) 1 VIAL SQ SCH (21:04)
[2020-06-26] MEDS: APIXABAN 5 MG TABLET PO SCH (21:16)
[2020-06-26] MEDS: PIPERACILLIN/TAZOB 4.5 GM 4.5 GM in DEXTROSE 5%-WATER 100 ML IVPB SCH (21:16)
[2020-06-26] MEDS ORDERED: PIPERACILLIN/TAZOB 4.5 GM 4.5 GM in DEXTROSE 5%-WATER 100 ML IVPB SCH (22:00)
[2020-06-26] MEDS ORDERED: GABAPENTIN 100 MG CAPSULE PO SCH (22:00)
[2020-06-27] MEDS ORDERED: MINERAL OIL/PETROLAT/WATER TOPICAL CREAM 113 GM JAR TP PRN (00:08)
[2020-06-27 03:02] VITALS: BMI 48.9
[2020-06-27] MEDS: INSULIN SLIDING SCALE (NOVOLOG) 1 VIAL SQ SCH ×5 (06:07→22:45)
[2020-06-27 09:04] LABS: BASO % 1.1 % (0-2.0); EOS % 6.3 % (0-4.5); HEMATOCRIT 23.5 % (35.4-49); HEMOGLOBIN 7.8 GM/dL (11.7-16.9); LYMPH % 5.5 % (8-40); MCH 31.3 pg (25.7-33.7); MEAN PLT VOLUME 11.6 fl (7.5-11.1); MONO % 9.4 % (3.8-10.2); NEUT % 77.7 % (42.8-82.8); PLATELET COUNT 118 K/MM3 (134-434); RBC 2.48 M/mm3 (4.00-5.60); WHITE BLOOD COUNT 8.1 K/mm3 (4.0-10.0)
[2020-06-27 09:22] LABS: CHLORIDE 97 mmol/L (98-107); SODIUM 136 mmol/L (136-145)
[2020-06-27 09:30] LABS: ALBUMIN 3.2 g/dl (3.4-5.0); ANION GAP 10 MMOL/L (8-16); BLOOD UREA NITROGEN 62.7 mg/dL (7-18); CALCIUM 9.3 mg/dL (8.5-10.1); CO2 28 mmol/L (21-32); GLUCOSE,RANDOM 162 mg/dL (74-106)
[2020-06-27 09:31] LABS: MAGNESIUM 2.6 mg/dL (1.8-2.4)
[2020-06-27 09:32] LABS: SGPT/ALT 30 U/L (13-61)
[2020-06-27 09:33] LABS: PHOSPHOROUS 7.3 mg/dL (2.5-4.9); SGOT/AST 29 U/L (15-37)
[2020-06-27] MEDS ORDERED: PIPERACILLIN/TAZOBACTAM 4.5 GM VIAL IVPB ONE (09:33)
[2020-06-27] MEDS ORDERED: DEXTROSE 5%-WATER 100 ML IVPB ONE (09:33)
[2020-06-27 09:34] LABS: BILIRUBIN,TOTAL 0.6 mg/dL (0.2-1)
[2020-06-27 09:35] LABS: ALK PHOS 74 U/L (45-117); TOT PROT 6.6 g/dl (6.4-8.2)
[2020-06-27 09:39] LABS: CREATININE 10.3 mg/dL (0.55-1.3)
[2020-06-27] MEDS: PIPERACILLIN/TAZOB 4.5 GM 4.5 GM in DEXTROSE 5%-WATER 100 ML IVPB SCH (09:44)
[2020-06-27] MEDS: APIXABAN 5 MG TABLET PO SCH ×2 (09:45→22:45)
[2020-06-27] MEDS: SILVER SULFADIAZINE 1% TOP CREAM 50 GM JAR TP SCH (12:14)
[2020-06-27] MEDS: PANTOPRAZOLE 40 MG TABLET PO SCH (12:15)
[2020-06-27] MEDS ORDERED: VANCOMYCIN 1 GRAM (PRE-DOCKED) 1,000 MG/250 ML BAG IVPB ONE (14:56)
[2020-06-27] MEDS ORDERED: PIPERACILLIN/TAZOBACTAM 2.25 GM VIAL IVPB ONE ×2 (16:12→22:52)
[2020-06-27] MEDS ORDERED: DEXTROSE 5%-WATER - 50 ML IVPB ONE ×2 (16:13→22:52)
[2020-06-27] MEDS ORDERED: HEPARIN NA (PORCINE) 5,000 UNITS/ML 1ML VIAL IVPUSH PRN (17:06)
[2020-06-27] MEDS ORDERED: SODIUM CHLORIDE 250 ML IV PRN (17:20)
[2020-06-27] MEDS ORDERED: EPOETIN ALFA-EPBX 10,000 UNIT/ML VIAL SQ ONE (18:00)
[2020-06-27] MEDS: PIPERACILLIN/TAZOB 2.25 GM 2.25 GM in DEXTROSE 5%-WATER - 50 ML IVPB SCH (22:46)
[2020-06-28] MEDS ORDERED: PIPERACILLIN/TAZOBACTAM 2.25 GM VIAL IVPB ONE ×3 (01:36→16:30)
[2020-06-28] MEDS ORDERED: DEXTROSE 5%-WATER - 50 ML IVPB ONE ×3 (01:37→16:31)
[2020-06-28] MEDS: PIPERACILLIN/TAZOB 2.25 GM 2.25 GM in DEXTROSE 5%-WATER - 50 ML IVPB SCH ×3 (02:40→17:23)
[2020-06-28] MEDS: INSULIN SLIDING SCALE (NOVOLOG) 1 VIAL SQ SCH ×5 (06:27→21:53)
[2020-06-28 09:29] LABS: BASO % 1.7 % (0-2.0); EOS % 7.1 % (0-4.5); HEMATOCRIT 24.3 % (35.4-49); LYMPH % 9.8 % (8-40); MCH 31.4 pg (25.7-33.7); MCHC 32.8 g/dl (32.0-35.9); MEAN CELL VOLUME 95.8 fl (80-96); MEAN PLT VOLUME 10.9 fl (7.5-11.1); MONO % 8.9 % (3.8-10.2); NEUT % 72.5 % (42.8-82.8); PLATELET COUNT 123 K/MM3 (134-434); RBC 2.53 M/mm3 (4.00-5.60); RDW 15.3 % (11.9-15.9); WHITE BLOOD COUNT 6.9 K/mm3 (4.0-10.0)
[2020-06-28 09:47] LABS: CHLORIDE 98 mmol/L (98-107); SODIUM 138 mmol/L (136-145)
[2020-06-28 10:09] LABS: CALCIUM 9.2 mg/dL (8.5-10.1)
[2020-06-28 10:10] LABS: ANION GAP 6 MMOL/L (8-16); BLOOD UREA NITROGEN 39.2 mg/dL (7-18); CO2 33 mmol/L (21-32); GLUCOSE,RANDOM 144 mg/dL (74-106)
[2020-06-28 10:12] LABS: SGOT/AST 26 U/L (15-37); SGPT/ALT 28 U/L (13-61)
[2020-06-28 10:14] LABS: BILIRUBIN,TOTAL 0.6 mg/dL (0.2-1); TOT PROT 6.7 g/dl (6.4-8.2)
[2020-06-28 10:15] LABS: ALK PHOS 76 U/L (45-117)
[2020-06-28 10:18] LABS: CREATININE 7.6 mg/dL (0.55-1.3)
[2020-06-28] MEDS: PANTOPRAZOLE 40 MG TABLET PO SCH (10:37)
[2020-06-28] MEDS: SILVER SULFADIAZINE 1% TOP CREAM 50 GM JAR TP SCH (10:37)
[2020-06-28] MEDS: APIXABAN 5 MG TABLET PO SCH ×2 (10:37→21:53)
[2020-06-28] MEDS ORDERED: VANCOMYCIN 1 GRAM (PRE-DOCKED) 1,000 MG/250 ML BAG IVPB ONE (14:05)
[2020-06-29] MEDS ORDERED: PIPERACILLIN/TAZOBACTAM 2.25 GM VIAL IVPB ONE ×3 (00:36→17:13)
[2020-06-29] MEDS ORDERED: DEXTROSE 5%-WATER - 50 ML IVPB ONE ×3 (00:36→17:14)
[2020-06-29] MEDS: PIPERACILLIN/TAZOB 2.25 GM 2.25 GM in DEXTROSE 5%-WATER - 50 ML IVPB SCH ×3 (01:41→17:16)
[2020-06-29] MEDS: INSULIN SLIDING SCALE (NOVOLOG) 1 VIAL SQ SCH ×4 (06:24→21:38)
[2020-06-29 09:17] LABS: BASO % 1.8 % (0-2.0); EOS % 8.4 % (0-4.5); HEMATOCRIT 23.4 % (35.4-49); HEMOGLOBIN 7.8 GM/dL (11.7-16.9); LYMPH % 11.9 % (8-40); MCH 31.8 pg (25.7-33.7); MCHC 33.3 g/dl (32.0-35.9); MEAN CELL VOLUME 95.7 fl (80-96); MEAN PLT VOLUME 10.9 fl (7.5-11.1); MONO % 9.8 % (3.8-10.2); NEUT % 68.1 % (42.8-82.8); PLATELET COUNT 117 K/MM3 (134-434); RBC 2.44 M/mm3 (4.00-5.60); RDW 15.1 % (11.9-15.9); WHITE BLOOD COUNT 6.4 K/mm3 (4.0-10.0)
[2020-06-29 09:28] LABS: CHLORIDE 98 mmol/L (98-107); SODIUM 136 mmol/L (136-145)
[2020-06-29 09:41] LABS: ALK PHOS 68 U/L (45-117); ANION GAP 8 MMOL/L (8-16); BILIRUBIN,TOTAL 0.7 mg/dL (0.2-1); BLOOD UREA NITROGEN 52.3 mg/dL (7-18); CO2 30 mmol/L (21-32); CREATININE 9.4 mg/dL (0.55-1.3); GLUCOSE,RANDOM 119 mg/dL (74-106); SGOT/AST 23 U/L (15-37); SGPT/ALT 27 U/L (13-61); TOT PROT 6.3 g/dl (6.4-8.2)
[2020-06-29] MEDS: PANTOPRAZOLE 40 MG TABLET PO SCH (09:42)
[2020-06-29] MEDS: APIXABAN 5 MG TABLET PO SCH ×2 (09:42→21:38)
[2020-06-29] MEDS ORDERED: SODIUM CHLORIDE 250 ML IV PRN (15:52)
[2020-06-29] MEDS: SILVER SULFADIAZINE 1% TOP CREAM 50 GM JAR TP SCH (16:30)
[2020-06-29] MEDS: SEVELAMER CARBONATE 800 MG TAB (FP) PO SCH (17:17)
[2020-06-29] MEDS ORDERED: POLYETHYLENE GLYCOL 3350 119 GM BTL PO ONE (22:25)
[2020-06-30] MEDS ORDERED: PIPERACILLIN/TAZOBACTAM 2.25 GM VIAL IVPB ONE ×2 (01:12→09:56)
[2020-06-30] MEDS ORDERED: DEXTROSE 5%-WATER - 50 ML IVPB ONE ×2 (01:12→09:56)
[2020-06-30] MEDS: PIPERACILLIN/TAZOB 2.25 GM 2.25 GM in DEXTROSE 5%-WATER - 50 ML IVPB SCH ×2 (01:30→16:22)
[2020-06-30] MEDS: INSULIN SLIDING SCALE (NOVOLOG) 1 VIAL SQ SCH ×4 (06:39→21:38)
[2020-06-30] MEDS ORDERED: INSULIN (NOVOLOG) ASPART 100 UNITS/ML 10ML VIAL ONE ×2 (06:58→21:25)
[2020-06-30] MEDS: SEVELAMER CARBONATE 800 MG TAB (FP) PO SCH ×3 (11:18→17:48)
[2020-06-30] MEDS: APIXABAN 5 MG TABLET PO SCH ×3 (11:18→21:38)
[2020-06-30] MEDS: PANTOPRAZOLE 40 MG TABLET PO SCH (11:18)
[2020-06-30] MEDS ORDERED: EPOETIN ALFA-EPBX 10,000 UNIT/ML VIAL SQ ONE (13:00)
[2020-06-30] MEDS ORDERED: EPOETIN ALFA-EPBX 10,000 UNIT, EPOETIN ALFA-EPBX 2,000 UNIT IVPUSH ONE (13:00)
[2020-06-30 13:53] LABS: HEMOGLOBIN 7.9 GM/dL (11.7-16.9); MCH 31.3 pg (25.7-33.7); MCHC 32.9 g/dl (32.0-35.9); MEAN CELL VOLUME 95.1 fl (80-96); MEAN PLT VOLUME 11.2 fl (7.5-11.1); PLATELET COUNT 112 K/MM3 (134-434); RBC 2.52 M/mm3 (4.00-5.60); RDW 15.3 % (11.9-15.9); WHITE BLOOD COUNT 6.6 K/mm3 (4.0-10.0)
[2020-06-30 14:18] LABS: CHLORIDE 99 mmol/L (98-107); SODIUM 136 mmol/L (136-145)
[2020-06-30 14:21] LABS: CALCIUM 8.7 mg/dL (8.5-10.1)
[2020-06-30 14:22] LABS: ANION GAP 8 MMOL/L (8-16); BLOOD UREA NITROGEN 55.9 mg/dL (7-18); CO2 28 mmol/L (21-32); GLUCOSE,RANDOM 185 mg/dL (74-106)
[2020-06-30 14:25] LABS: PHOSPHOROUS 6.7 mg/dL (2.5-4.9); SGOT/AST 23 U/L (15-37); SGPT/ALT 24 U/L (13-61)
[2020-06-30 14:26] LABS: BILIRUBIN,TOTAL 0.7 mg/dL (0.2-1)
[2020-06-30 14:27] LABS: ALK PHOS 66 U/L (45-117); TOT PROT 6.4 g/dl (6.4-8.2)
[2020-06-30 14:32] LABS: CREATININE 9.6 mg/dL (0.55-1.3)
[2020-06-30] MEDS: SILVER SULFADIAZINE 1% TOP CREAM 50 GM JAR TP SCH (18:33)
[2020-06-30] MEDS ORDERED: POLYETHYLENE GLYCOL 3350 119 GM BTL PO PRN (21:11)
[2020-07-01] MEDS: INSULIN SLIDING SCALE (NOVOLOG) 1 VIAL SQ SCH ×3 (06:16→17:02)
[2020-07-01] MEDS ORDERED: INSULIN (NOVOLOG) ASPART 100 UNITS/ML 10ML VIAL ONE ×2 (06:29→17:00)
[2020-07-01] MEDS ORDERED: PT OWN MED DRAWER 7, Y5N ONE (09:11)
[2020-07-01] MEDS: PANTOPRAZOLE 40 MG TABLET PO SCH (09:16)
[2020-07-01] MEDS: SEVELAMER CARBONATE 800 MG TAB (FP) PO SCH ×3 (09:16→18:09)
[2020-07-01] MEDS: APIXABAN 5 MG TABLET PO SCH (09:16)
[2020-07-01] MEDS ORDERED: CEPHALEXIN MONOHYDRATE 500 MG CAPSULE (UD) PO SCH (10:00)
[2020-07-01] MEDS: SILVER SULFADIAZINE 1% TOP CREAM 50 GM JAR TP SCH (14:55)
[2020-07-01 19:13] VITALS: BP 150/72; PULSE 97; TEMP 98.6
== END 2020-07-01 19:57 | DRG 602 ==
LOC: JER 15:17 → JERBED 19:15 → J5S 06-27 02:33
PROVIDERS: ADMIT Internal Medicine
PROC: 5A1D70Z Performance of Urinary Filtration, Intermittent, Less than 6 Hours Per Day (ICD-10-PCS; principal; 2020-06-27)
DX: L03.115 Cellulitis of right lower limb (principal); N18.6 End stage renal disease; I48.19 Other persistent atrial fibrillation; I69.354 Hemiplegia and hemiparesis following cerebral infarction affecting left non-dominant side; I12.0 Hypertensive chronic kidney disease with stage 5 chronic kidney disease or end stage renal disease; L97.919 Non-pressure chronic ulcer of unspecified part of right lower leg with unspecified severity; Z68.42 Body mass index [BMI] 45.0-49.9, adult; E66.01 Morbid (severe) obesity due to excess calories; E78.5 Hyperlipidemia, unspecified; I25.10 Atherosclerotic heart disease of native coronary artery without angina pectoris; Z79.01 Long term (current) use of anticoagulants; J44.9 Chronic obstructive pulmonary disease, unspecified; E11.40 Type 2 diabetes mellitus with diabetic neuropathy, unspecified; E11.22 Type 2 diabetes mellitus with diabetic chronic kidney disease; Z99.2 Dependence on renal dialysis; D64.9 Anemia, unspecified; Z86.718 Personal history of other venous thrombosis and embolism; Z86.711 Personal history of pulmonary embolism; E11.51 Type 2 diabetes mellitus with diabetic peripheral angiopathy without gangrene; Z89.421 Acquired absence of other right toe(s); Z79.4 Long term (current) use of insulin
CPT/HCPCS: 36415; 71045-TC-FY; 80053; 82272; 82962; 83735; 84100; 85025; 85027; 86803; 87040; 87070; 87186; 87205; 87340; 93005; 93010; 93971-TC; 97116-GP; 97161-GP; 99285-25; C9803; G0463-25; G0480; J1644; Q5106; U0003; U0005